=== PATIENT | male | born 1955 | race Caucasian/White ===

== ENCOUNTER → 2017-10-26 07:47 | Outpatient (CLI) | payer OTHER, SELFPAY ==
[2017-10-26 08:54] LABS: AST(SGOT) 27 U/L (15-37); Alanine Aminotransfer ALT/SGPT 51 U/L (16-61); Albumin, Serum 4.1 g/dL (3.2-5.0); Alkaline Phosphatase 71 U/L (45-117); Bilirubin, Direct 0.14 mg/dL (0.00-0.30); Cholesterol 145 mg/dL (200); Globulin 3.2 g/dL (2.2-4.2); High Density Lipoprotein 33 mg/dL; Protein, Total 7.3 g/dL (6.4-8.2); Triglycerides 103 mg/dL; Very Low Density Lipoprotein 21 mg/dL (5-40)
== END ==
PROVIDERS: Family Provider Family Medicine; PCP Family Medicine; Visit Provider Internal Medicine Cardiovascular Disease
DX: E78.5 Hyperlipidemia, unspecified (principal); Z79.899 Other long term (current) drug therapy
CPT/HCPCS: 36415; 80061; 80076

== ENCOUNTER → 2018-01-08 09:23 | Outpatient (CLI) | payer OTHER, SELFPAY ==
[2018-01-08 12:41] LABS: Absolute Lymphocyte Count 1.43 X10^3/ul (0.83-4.51); Absolute Neutrophil Count 3.4 X10^3/uL (2.0-7.7); Basophil# 0.03 X10^3/uL; Basophil% 0.5 % (0-1); Eosinophils% 3.6 % (0-5); Hematocrit 46.8 % (40-54); Hemoglobin 15.9 g/dl (13.0-16.5); Hemoglobin A1c 5.5 % (4.2-6.3); Lymphocyte # 1.43 X10^3/ul (4.0); Lymphocyte % 25.8 % (19-41); Mean Corpuscular Hgb 31.1 pg (27.0-32.0); Mean Corpuscular Volume 91.6 fL (80-94); Mean Platelet Vol. 10.6 fl (6.2-12.0); Monocyte# 0.51 X10^3/uL; Monocyte% 9.2 % (0-10); Neutrophil # 3.37 X10^3/uL (2.7-7.7); Neutrophil % 60.9 % (47-70); Platelet Count 174 K/mm3 (150-450); RBC Distribution Width CV 12.8 % (11.6-14.6); RBC Distribution Width SD 42.8 fl (35.1-43.9); Red Blood Count 5.11 M/mm3 (4.6-6.2); White Blood Count 5.5 K/mm3 (4.4-11.0)
[2018-01-08 12:42] LABS: POSITIVE COUNT NO; POSITIVE DIFFERENTIAL NO; POSITIVE MORPHOLOGY NO
[2018-01-08 12:45] LABS: Anion Gap 6 (5-15); BUN 25 mg/dL (7-18); BUN/Creat Ratio 24.8 RATIO (10-20); Chloride 105 mmol/L (98-107); Creatinine, Serum 1.01 mg/dL (0.70-1.30); EST Glomerular Filtration Rate 80 mL/min (>60); Est Glom Filt Rate - Afr Amer 96 mL/min (>60); Glucose 106 mg/dL (74-106); Potassium 4.3 mmol/L (3.5-5.1); Sodium Level 140 mmol/L (136-145); Thyroid Stim Hormone (TSH) 1.72 uIU/mL (0.358-3.74)
== END ==
PROVIDERS: Family Provider Family Medicine; PCP Family Medicine; Visit Provider Family Medicine
DX: I10 Essential (primary) hypertension (principal); E78.5 Hyperlipidemia, unspecified; R73.01 Impaired fasting glucose
CPT/HCPCS: 36415; 80048; 83036; 84439; 84443; 85025

== ENCOUNTER → 2018-04-24 08:09 | Outpatient (CLI) | payer OTHER, SELFPAY ==
[2018-04-24 09:30] LABS: AST(SGOT) 24 U/L (15-37); Alanine Aminotransfer ALT/SGPT 46 U/L (16-61); Alkaline Phosphatase 65 U/L (45-117); Bilirubin, Direct 0.14 mg/dL (0.00-0.30); Cholesterol 175 mg/dL (200); Globulin 3.4 g/dL (2.2-4.2); High Density Lipoprotein 30 mg/dL; Protein, Total 7.4 g/dL (6.4-8.2); Triglycerides 161 mg/dL; Very Low Density Lipoprotein 32 mg/dL (5-40)
== END ==
PROVIDERS: Internal Medicine Cardiovascular Disease; Family Provider Family Medicine; PCP Family Medicine; Visit Provider Physician Assistant Medical
DX: E78.5 Hyperlipidemia, unspecified (principal); Z79.899 Other long term (current) drug therapy
CPT/HCPCS: 36415; 80061; 80076

== ENCOUNTER → 2018-08-30 07:16 | Outpatient (CLI) | payer OTHER, SELFPAY ==
[2018-08-30 08:56] LABS: AST(SGOT) 28 U/L (15-37); Alanine Aminotransfer ALT/SGPT 56 U/L (16-61); Albumin, Serum 4.1 g/dL (3.2-5.0); Alkaline Phosphatase 61 U/L (45-117); Bilirubin, Direct 0.14 mg/dL (0.00-0.30); Cholesterol 190 mg/dL (200); Globulin 3.4 g/dL (2.2-4.2); High Density Lipoprotein 32 mg/dL; Protein, Total 7.5 g/dL (6.4-8.2); Triglycerides 171 mg/dL; Very Low Density Lipoprotein 34 mg/dL (5-40)
== END ==
PROVIDERS: Family Provider Family Medicine; PCP Family Medicine; Referring Provider Internal Medicine Cardiovascular Disease; Visit Provider Internal Medicine Cardiovascular Disease
DX: E78.5 Hyperlipidemia, unspecified (principal)
CPT/HCPCS: 36415; 80061; 80076

== ENCOUNTER → 2018-10-10 09:37 | Outpatient (CLI) | payer OTHER, SELFPAY ==
[2018-09-29 15:54] VITALS: BMI 32.4
--- NOTE | 2018-10-10 09:41 | ECHOD_ITS ---
Reason For Study: murmur Procedure This was a 2D Doppler, Color Flow transthoracic echocardiogram. The exam was of adequate technical quality. Exam performed in department. Left Ventricle Normal LV size. Mild concentric left ventricular hypertrophy. Left ventricular systolic function is normal. The estimated ejection fraction is 70 %. No evidence for diastolic dysfunction. No regional wall motion abnormalities noted. Right Ventricle Normal RV size. Normal systolic function. Atria The left atrium is mildly enlarged. Normal right atrium. No doppler evidence for ASD. Mitral Valve There is no mitral annular calcification. Mild diffuse mitral valve thickening. Mild (1+) mitral valve insufficiency. Tricuspid Valve Normal tricuspid valve. Mild tricuspid valve insufficiency. Right ventricular systolic pressure estimated to be 28 mmHg. 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 Trivial aortic valve insufficiency. Pulmonic Valve The pulmonic valve is not well visualized. Mild (1+) pulmonic valve insufficiency. Great Vessels Mildly dilated aortic root. Pericardium/Pleural No pericardial effusion. MMode/2D Measurements & Calculations LVIDd: 4.5 cm IVSd: 1.4 cm LVOT diam: 2.3 cm LVIDs: 2.7 cm LVPWd: 1.4 cm LVOT area: 4.3 cm2 RVDd: 3.7 cm FS: 39.7 % Ao root diam: 4.0 cm LAV(MOD-bp): 61.0 ml LA A4 area: 19.7 cm2 LAV(MOD-bp) Indexed: 26.0 ml/m2 LAV(MOD-sp2): 60.1 ml LAV(MOD-sp4): 57.9 ml LA dimension(2D): 4.1 cm RA A4 area: 15.6 cm2 Doppler Measurements & Calculations MV E max alejo: 85.1 cm/sec Lat Peak E' Alejo: 5.1 cm/sec Med Peak E' Alejo: 5.9 cm/sec MV A max alejo: 75.5 cm/sec E/E' lat: 16.8 E/E' med: 14.3 MV E/A: 1.1 Ao V2 max: 271.9 cm/sec AI max alejo: 333.5 cm/sec LV V1 max: 128.4 cm/sec Ao max P.6 mmHg AI max P.5 mmHg LV V1 max P.8 mmHg Ao V2 mean: 190.8 cm/sec AI dec slope: 183.3 cm/sec2 LV V1 mean P.1 mmHg Ao mean P.2 mmHg AI P1/2t: 532.8 msec LV V1 mean: 97.0 cm/sec Ao V2 VTI: 51.2 cm LV V1 VTI: 30.9 cm EMILY(I,D): 2.6 cm2 EMILY(V,D): 2.0 cm2 SV(LVOT): 132.0 ml PA V2 max: 80.1 cm/sec TR max alejo: 249.1 cm/sec TR max P.0 mmHg Interpretation Summary Left ventricular systolic function is normal. The estimated ejection fraction is 70 %. Mild concentric left ventricular hypertrophy. The left atrium is mildly enlarged. Mild diffuse mitral valve thickening. Mild (1+) mitral valve insufficiency. Mild tricuspid valve insufficiency. 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 Trivial aortic valve insufficiency. Mild (1+) pulmonic valve insufficiency. Mildly dilated aortic root. Right ventricular systolic pressure estimated to be 28 mmHg. No evidence for diastolic dysfunction. Ordering Physician: Alen Phillips Referring Physician: Geoff Sainz Performed By: Margarette Olsen, RDCS, RVT
== END ==
PROVIDERS: Family Provider Family Medicine; PCP Family Medicine; Referring Provider Internal Medicine Cardiovascular Disease; Visit Provider Internal Medicine Cardiovascular Disease
DX: E78.00 Pure hypercholesterolemia, unspecified (principal); I77.810 Thoracic aortic ectasia; Q23.1 Congenital insufficiency of aortic valve
CPT/HCPCS: 93306

== ENCOUNTER → 2019-03-27 | Outpatient (CLI) | payer OTHER, SELFPAY ==
[2018-09-29 15:54] VITALS: BMI 32.4
[2019-03-27 09:46] LABS: AST(SGOT) 27 U/L (15-37); Alanine Aminotransfer ALT/SGPT 50 U/L (16-61); Albumin, Serum 4.2 g/dL (3.2-5.0); Alkaline Phosphatase 85 U/L (45-117); Anion Gap 5 (5-15); BUN 20 mg/dL (7-18); Bilirubin, Direct 0.22 mg/dL (0.00-0.30); Calcium,Total 8.7 mg/dL (8.5-10.1); Chloride 107 mmol/L (98-107); Cholesterol 129 mg/dL (200); EST Glomerular Filtration Rate 80 mL/min (>60); Est Glom Filt Rate - Afr Amer 97 mL/min (>60); Globulin 3.3 g/dL (2.2-4.2); Glucose 97 mg/dL (74-106); High Density Lipoprotein 36 mg/dL; Potassium 4.3 mmol/L (3.5-5.1); Protein, Total 7.5 g/dL (6.4-8.2); Sodium Level 141 mmol/L (136-145); Triglycerides 134 mg/dL; Very Low Density Lipoprotein 27 mg/dL (5-40)
== END | disposition home or self-care (01) ==
LOC: LAB 07:57
PROVIDERS: Family Provider Family Medicine; PCP Family Medicine; Referring Provider Internal Medicine Cardiovascular Disease; Visit Provider Internal Medicine Cardiovascular Disease
DX: I10 Essential (primary) hypertension (principal); R73.01 Impaired fasting glucose; E78.00 Pure hypercholesterolemia, unspecified
CPT/HCPCS: 36415; 80048; 80061; 80076

== ENCOUNTER → 2019-09-04 07:27 | Outpatient (CLI) | payer OTHER, SELFPAY ==
[2018-09-29 15:54] VITALS: BMI 32.4
[2019-09-04 09:22] LABS: AST(SGOT) 26 U/L (15-37); Alanine Aminotransfer ALT/SGPT 51 U/L (16-61); Albumin, Serum 4.2 g/dL (3.2-5.0); Alkaline Phosphatase 68 U/L (45-117); Bilirubin, Direct 0.15 mg/dL (0.00-0.30); Cholesterol 136 mg/dL (200); Globulin 3.2 g/dL (2.2-4.2); High Density Lipoprotein 35 mg/dL; Protein, Total 7.4 g/dL (6.4-8.2); Triglycerides 111 mg/dL; Very Low Density Lipoprotein 22 mg/dL (5-40)
== END ==
PROVIDERS: Family Provider Family Medicine; PCP Family Medicine; Referring Provider Internal Medicine Cardiovascular Disease; Visit Provider Internal Medicine Cardiovascular Disease
DX: E78.5 Hyperlipidemia, unspecified (principal)
CPT/HCPCS: 36415; 80061; 80076

== ENCOUNTER → 2020-04-09 07:45 | Outpatient (CLI) | payer OTHER, SELFPAY ==
[2019-10-07 15:54] VITALS: BMI 31.8
[2020-04-09 08:54] LABS: Absolute Neutrophil Count 3.5 X10^3/uL (2.0-7.7); Basophil# 0.06 X10^3/uL; Eosinophil# 0.29 X10^3/uL; Eosinophils% 4.9 % (0-5); Hematocrit 46.6 % (40-54); Hemoglobin 15.4 g/dL (13.0-16.5); Mean Corpuscular Hgb 30.4 pg (27.0-32.0); Mean Corpuscular Volume 92.1 fL (80-94); Mean Platelet Vol. 10.4 fl (6.2-12.0); Monocyte# 0.52 X10^3/uL; Monocyte% 8.8 % (0-10); NRBC Flagged by Analyzer 0 % (0-5); Neutrophil # 3.45 X10^3/uL (2.7-7.7); Neutrophil % 58.1 % (47-70); Platelet Count 164 K/mm3 (150-450); RBC Distribution Width CV 11.9 % (11.6-14.6); RBC Distribution Width SD 40.7 fl (35.1-43.9); Red Blood Count 5.06 M/mm3 (4.6-6.2); White Blood Count 5.9 K/mm3 (4.4-11.0)
[2020-04-09 09:25] LABS: AST(SGOT) 28 U/L (15-37); Alanine Aminotransfer ALT/SGPT 49 U/L (16-61); Alkaline Phosphatase 68 U/L (45-117); Anion Gap 1 (5-15); BUN 25 mg/dL (7-18); BUN/Creat Ratio 24.8 RATIO (10-20); Bilirubin, Direct 0.21 mg/dL (0.00-0.30); Calcium,Total 8.8 mg/dL (8.5-10.1); Chloride 107 mmol/L (98-107); Cholesterol 125 mg/dL (200); Creatinine, Serum 1.01 mg/dL (0.70-1.30); EST Glomerular Filtration Rate 79 mL/min (>60); Est Glom Filt Rate - Afr Amer 96 mL/min (>60); Globulin 3.2 g/dL (2.2-4.2); Glucose 113 mg/dL (74-106); High Density Lipoprotein 30 mg/dL; Potassium 4.5 mmol/L (3.5-5.1); Protein, Total 7.2 g/dL (6.4-8.2); Sodium Level 137 mmol/L (136-145); Triglycerides 130 mg/dL; Very Low Density Lipoprotein 26 mg/dL (5-40)
== END ==
PROVIDERS: Nurse Practitioner Family; PCP Family Medicine; Referring Provider Family Medicine; Visit Provider Family Medicine
DX: I10 Essential (primary) hypertension (principal); E78.00 Pure hypercholesterolemia, unspecified; E78.5 Hyperlipidemia, unspecified
CPT/HCPCS: 80048; 80061; 80076; 85025

== ENCOUNTER → 2020-09-06 08:45 | Outpatient (CLI) | payer OTHER, SELFPAY ==
[2019-10-07 15:54] VITALS: BMI 31.8
--- NOTE | 2020-09-06 08:46 | ECHOD_ITS ---
Reason For Study: Murmur Procedure This was a 2D Doppler, Color Flow transthoracic echocardiogram. The exam was of adequate technical quality. Exam performed in department. Left Ventricle Normal LV size. Moderate to severe concentric left ventricular hypertrophy. Left ventricular systolic function is hyperdynamic. The estimated ejection fraction is 75 %. Diastolic function is indeterminate. No regional wall motion abnormalities noted. Right Ventricle Normal RV size. Normal systolic function. Atria Normal left atrium. Normal right atrium. No doppler evidence for ASD. Mitral Valve There is no mitral annular calcification. Mild diffuse mitral valve thickening. Trivial mitral valve insufficiency. Tricuspid Valve Normal tricuspid valve. Trivial tricuspid valve insufficiency. Right ventricular systolic pressure estimated to be 29 mmHg. 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 Mild to moderate aortic stenosis. Trivial aortic valve insufficiency. Pulmonic Valve The pulmonic valve is not well visualized. Trivial eccentric pulmonic valve insufficiency. Great Vessels Mildly dilated aortic root. Pericardium/Pleural No pericardial effusion. MMode/2D Measurements & Calculations LVIDd: 4.5 cm IVSd: 1.9 cm LVOT diam: 2.3 cm LVIDs: 2.0 cm LVPWd: 1.5 cm LVOT area: 4.1 cm2 RVDd: 4.0 cm FS: 55.3 % Ao root diam: 4.2 cm LAV(MOD-bp): 66.4 ml LA A4 area: 19.3 cm2 LA dimension: 4.7 cm LAV(MOD-bp) Indexed: 28.6 ml/m2 LAV(MOD-sp2): 65.9 ml LAV(MOD-sp4): 62.3 ml RA A4 area: 19.0 cm2 Time Measurements MV dec time: 0.25 sec Doppler Measurements & Calculations MV E max alejo: 72.9 cm/sec Lat Peak E' Alejo: 3.7 cm/sec Med Peak E' Alejo: 5.2 cm/sec MV A max alejo: 76.6 cm/sec E/E' lat: 19.8 E/E' med: 13.9 MV E/A: 0.95 MV V2 max: 99.0 cm/sec MV P1/2t max alejo: 99.7 cm/sec Ao V2 max: 360.1 cm/sec MV max P.9 mmHg MV P1/2t: 68.6 msec Ao max P.9 mmHg MV V2 mean: 48.4 cm/sec MV dec slope: 425.6 cm/sec2 Ao V2 mean: 242.0 cm/sec MV mean P.2 mmHg Ao mean P.7 mmHg MV V2 VTI: 24.9 cm MVA(P1/2t): 3.2 cm2 Ao V2 VTI: 72.7 cm MVA(VTI): 5.0 cm2 EMILY(I,D): 1.7 cm2 EMILY(V,D): 1.7 cm2 AI max alejo: 371.3 cm/sec LV V1 max: 151.8 cm/sec SV(LVOT): 125.2 ml AI max P.2 mmHg LV V1 max P.2 mmHg LV V1 mean P.7 mmHg AI dec slope: 179.9 cm/sec2 LV V1 mean: 97.3 cm/sec AI P1/2t: 604.5 msec LV V1 VTI: 30.7 cm PA V2 max: 75.1 cm/sec TR max alejo: 254.1 cm/sec PI dec slope: 138.7 cm/sec2 TR max P.8 mmHg Interpretation Summary Left ventricular systolic function is hyperdynamic. The estimated ejection fraction is 75 %. Moderate to severe concentric left ventricular hypertrophy. Mild diffuse mitral valve thickening. Trivial mitral valve insufficiency. Trivial tricuspid valve insufficiency. 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 Mild to moderate aortic stenosis. Trivial aortic valve insufficiency. Trivial eccentric pulmonic valve insufficiency. Mildly dilated aortic root. Right ventricular systolic pressure estimated to be 29 mmHg. Diastolic function is indeterminate. Late peaking spectral Doppler pattern in the mid left ventricular cavity approaching 2 m/s (peak gradient of approximately 16 mmHg) appearing compatible with a hyperdynamic state. Ordering Physician: Alen Phillips Referring Physician: Geoff Sainz Performed By: Scott Anglin RCS
== END ==
PROVIDERS: PCP Family Medicine; Referring Provider Internal Medicine Cardiovascular Disease; Visit Provider Internal Medicine Cardiovascular Disease
DX: Q23.1 Congenital insufficiency of aortic valve (principal); I77.810 Thoracic aortic ectasia; E78.00 Pure hypercholesterolemia, unspecified; I10 Essential (primary) hypertension
CPT/HCPCS: 93306

== ENCOUNTER → 2020-10-15 07:27 | Outpatient (CLI) | payer OTHER, SELFPAY ==
[2020-10-03 16:04] VITALS: BMI 32.6
[2020-10-15 08:37] LABS: AST(SGOT) 29 U/L (15-37); Alanine Aminotransfer ALT/SGPT 58 U/L (16-61); Albumin, Serum 4.2 g/dL (3.2-5.0); Alkaline Phosphatase 69 U/L (45-117); Bilirubin, Direct 0.21 mg/dL (0.00-0.30); Cholesterol 134 mg/dL (200); High Density Lipoprotein 34 mg/dL; Protein, Total 7.2 g/dL (6.4-8.2); Triglycerides 94 mg/dL; Very Low Density Lipoprotein 19 mg/dL (5-40)
== END ==
PROVIDERS: PCP Family Medicine; Visit Provider Internal Medicine Cardiovascular Disease
DX: E78.00 Pure hypercholesterolemia, unspecified (principal)
CPT/HCPCS: 36415; 80061; 80076

== ENCOUNTER → 2021-04-22 07:25 | Outpatient (CLI) | payer OTHER, SELFPAY ==
[2020-10-03 16:04] VITALS: BMI 32.6
[2021-04-22 07:57] LABS: Anion Gap 5 (5-15); BUN 18 mg/dL (7-18); BUN/Creat Ratio 17.1 RATIO (10-20); Calcium,Total 8.7 mg/dL (8.5-10.1); Chloride 106 mmol/L (98-107); Creatinine, Serum 1.05 mg/dL (0.70-1.30); EST Glomerular Filtration Rate 75 mL/min (>60); Est Glom Filt Rate - Afr Amer 91 mL/min (>60); Glucose 115 mg/dL (74-106); Potassium 4.2 mmol/L (3.5-5.1); Sodium Level 139 mmol/L (136-145)
[2021-04-22 08:10] LABS: AST(SGOT) 30 U/L (15-37); Alanine Aminotransfer ALT/SGPT 59 U/L (16-61); Albumin, Serum 4.1 g/dL (3.2-5.0); Alkaline Phosphatase 70 U/L (45-117); Bilirubin, Direct 0.28 mg/dL (0.00-0.30); Cholesterol 127 mg/dL (200); High Density Lipoprotein 33 mg/dL; Protein, Total 7.1 g/dL (6.4-8.2); Triglycerides 123 mg/dL; Very Low Density Lipoprotein 25 mg/dL (5-40)
== END ==
PROVIDERS: Internal Medicine Cardiovascular Disease; PCP Family Medicine; Referring Provider Family Medicine; Visit Provider Family Medicine
DX: I10 Essential (primary) hypertension (principal); E78.00 Pure hypercholesterolemia, unspecified
CPT/HCPCS: 36415; 80048; 80061; 80076

== ENCOUNTER 2021-09-20 09:44 | Outpatient (CLI) | payer OTHER, SELFPAY ==
--- NOTE | 2021-09-20 09:49 | ECHOD_ITS ---
Reason For Study: Murmur Procedure This was a 2D Doppler, Color Flow transthoracic echocardiogram. The study was technically difficult. Exam performed in department. Left Ventricle Normal LV size. Moderate to severe concentric left ventricular hypertrophy. Left ventricular systolic function is normal. The estimated ejection fraction is 70 %. Diastolic function is indeterminate. No regional wall motion abnormalities noted. Right Ventricle Normal RV size. Normal systolic function. Atria Normal left atrium. Normal right atrium. No doppler evidence for ASD. Mitral Valve There is no mitral annular calcification. Mild diffuse mitral valve thickening. Mild (1+) mitral valve insufficiency. Tricuspid Valve Normal tricuspid valve. Trivial tricuspid valve insufficiency. Right ventricular systolic pressure estimated to be 25 mmHg. 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 Moderate aortic stenosis. Trivial eccentric aortic valve insufficiency. Pulmonic Valve The pulmonic valve is not well visualized. Great Vessels Mildly dilated aortic root. Pericardium/Pleural No pericardial effusion. MMode/2D Measurements & Calculations LVIDd: 4.5 cm IVSd: 1.5 cm LVOT diam: 2.2 cm LVIDs: 2.6 cm LVPWd: 1.4 cm LVOT area: 3.7 cm2 RVDd: 3.8 cm FS: 42.1 % Ao root diam: 4.2 cm LAV(MOD-bp): 78.2 ml LA A4 area: 20.5 cm2 LAV(MOD-bp) Indexed: 33.5 ml/m2 LAV(MOD-sp2): 71.3 ml LAV(MOD-sp4): 70.5 ml RA A4 area: 19.5 cm2 Time Measurements MV dec time: 0.26 sec Doppler Measurements & Calculations MV E max alejo: 78.3 cm/sec Lat Peak E' Alejo: 3.1 cm/sec Med Peak E' Alejo: 5.7 cm/sec MV A max alejo: 79.8 cm/sec E/E' lat: 25.3 E/E' med: 13.8 MV E/A: 0.98 MV V2 max: 135.2 cm/sec MV P1/2t max alejo: 135.9 cm/sec Ao V2 max: 326.6 cm/sec MV max P.3 mmHg MV P1/2t: 47.2 msec Ao max P.7 mmHg MV V2 mean: 61.1 cm/sec MV dec slope: 842.7 cm/sec2 Ao V2 mean: 221.5 cm/sec MV mean P.9 mmHg Ao mean P.8 mmHg MV V2 VTI: 28.0 cm MVA(P1/2t): 4.7 cm2 Ao V2 VTI: 72.1 cm MVA(VTI): 3.4 cm2 EMILY(I,D): 1.3 cm2 EMILY(V,D): 1.3 cm2 AI max alejo: 372.0 cm/sec LV V1 max: 114.1 cm/sec SV(LVOT): 94.7 ml AI max P.4 mmHg LV V1 max P.2 mmHg LV V1 mean P.5 mmHg AI dec slope: 178.6 cm/sec2 LV V1 mean: 71.7 cm/sec AI P1/2t: 610.0 msec LV V1 VTI: 25.7 cm PA V2 max: 79.9 cm/sec TR max alejo: 234.4 cm/sec TR max P.0 mmHg ECHO/Echo Complete Interpretation Summary The study was technically difficult. Left ventricular systolic function is normal. The estimated ejection fraction is 70 %. Moderate to severe concentric left ventricular hypertrophy. Mild diffuse mitral valve thickening. Mild (1+) mitral valve insufficiency. Trivial tricuspid valve insufficiency. 2D echocardiographic images potentially compatible with a tricuspid aortic valv e with a fused raphae with associated moderate to severe diffuse thickening and moderate to severe fo derek calcification of the leaflets functioning as a bicuspid aortic valve. Moderate aortic stenosis. Trivial eccentric aortic valve insufficiency. Mildly dilated aortic root. Right ventricular systolic pressure estimated to be 25 mmHg. Diastolic function is indeterminate. Ordering Physician: Alen Phillips Referring Physician: Geoff Sainz Performed By: Scott Anglin RCS
== END 2021-09-20 23:59 | disposition short-term general hospital (02) ==
PROVIDERS: PCP Family Medicine; Referring Provider Internal Medicine Cardiovascular Disease; Visit Provider Internal Medicine Cardiovascular Disease
DX: Q23.1 Congenital insufficiency of aortic valve (principal); I77.810 Thoracic aortic ectasia; E78.00 Pure hypercholesterolemia, unspecified; I10 Essential (primary) hypertension
CPT/HCPCS: 93306

== ENCOUNTER → 2022-04-23 | Outpatient (CLI) | payer MEDICARE, SELFPAY ==
[2022-04-23 10:42] LABS: Absolute Lymphocyte Count 1.42 X10^3/uL (0.83-4.51); Absolute Neutrophil Count 4.7 X10^3/uL (2.0-7.7); Basophil# 0.06 X10^3/uL; Basophil% 0.8 % (0-1); Eosinophil# 0.25 X10^3/uL; Eosinophils% 3.5 % (0-5); Hemoglobin 16.5 g/dL (13.0-16.5); Lymphocyte # 1.42 X10^3/ul (0.83-4.51); Lymphocyte % 19.9 % (19-41); Mean Corp Hgb Conc 33.7 g/dL (32-36); Mean Corpuscular Volume 91.9 fL (80-94); Mean Platelet Vol. 10.4 fl (6.2-12.0); Monocyte# 0.65 X10^3/uL; Monocyte% 9.1 % (0-10); NRBC Flagged by Analyzer 0 % (0-5); Neutrophil # 4.72 X10^3/uL (2.7-7.7); Neutrophil % 66.4 % (47-70); Platelet Count 166 K/mm3 (150-450); RBC Distribution Width CV 12.2 % (11.6-14.6); RBC Distribution Width SD 41.4 fl (35.1-43.9); Red Blood Count 5.33 M/mm3 (4.6-6.2); White Blood Count 7.1 K/mm3 (4.4-11.0)
[2022-04-23 11:25] LABS: ALB/GLOB Ratio 1.1 RATIO (0.9-2.4); AST(SGOT) 32 U/L (15-37); Alanine Aminotransfer ALT/SGPT 81 U/L (16-61); Alkaline Phosphatase 68 U/L (45-117); Anion Gap 6 (5-15); BUN 14 mg/dL (7-18); BUN/Creat Ratio 13.7 RATIO (10-20); Bilirubin, Direct 0.18 mg/dL (0.00-0.30); Chloride 103 mmol/L (98-107); Cholesterol 122 mg/dL (200); Creatinine, Serum 1.02 mg/dL (0.70-1.30); EST Glomerular Filtration Rate 78 mL/min (>60); Est Glom Filt Rate - Afr Amer 94 mL/min (>60); Globulin 3.7 g/dL (2.2-4.2); Glucose 108 mg/dL (74-106); High Density Lipoprotein 32 mg/dL; Potassium 4.2 mmol/L (3.5-5.1); Protein, Total 7.7 g/dL (6.4-8.2); Sodium Level 138 mmol/L (136-145); Thyroid Stim Hormone (TSH) 2.88 uIU/mL (0.358-3.74); Triglycerides 130 mg/dL; Very Low Density Lipoprotein 26 mg/dL (5-40)
== END | disposition home or self-care (01) ==
PROVIDERS: Internal Medicine Cardiovascular Disease; PCP Family Medicine; Referring Provider Family Medicine; Visit Provider Family Medicine
DX: I10 Essential (primary) hypertension (principal); E78.5 Hyperlipidemia, unspecified
CPT/HCPCS: 80053; 80061; 82248; 84443; 85025

== ENCOUNTER → 2022-07-17 | Outpatient (CLI) | payer MEDICARE, SELFPAY ==
--- NOTE | 2022-07-17 13:55 | ECHOD_ITS ---
Reason For Study: MURMUR Procedure This was a 2D Doppler, Color Flow transthoracic echocardiogram. Myocardial strain analysis was performed in this exam to aid in the assessment of cardiac function. Exam performed in department. Left Ventricle Normal LV size. Severe concentric left ventricular hypertrophy. Left ventricular systolic function is hyperdynamic. The estimated ejection fraction is 75 %. The global longitudinal strain = -14% (abnormal). Diastolic function is indeterminate. No regional wall motion abnormalities noted. Right Ventricle Normal RV size. Normal systolic function. Atria Normal left atrium. Normal right atrium. No doppler evidence for ASD. Mitral Valve There is no mitral annular calcification. Normal mitral valve. Mild (1+) mitral valve insufficiency. Tricuspid Valve Normal tricuspid valve. Trivial tricuspid valve insufficiency. Right ventricular systolic pressure estimated to be 30 mmHg. Aortic Valve Based upon the 2D echocardiographic images obtained the aortic valve leaflets are not well visualized, however, there appears to be diffuse thickening, severe focal calcification, and restriction. Severe aortic stenosis. Mild (1+) eccentric aortic valve insufficiency. Pulmonic Valve The pulmonic valve is not well visualized. Great Vessels Mildly dilated aortic root. Pericardium/Pleural No pericardial effusion. MMode/2D Measurements & Calculations LVIDd: 4.3 cm IVSd: 2.2 cm LVOT diam: 2.0 cm LVIDs: 2.2 cm LVPWd: 2.0 cm LVOT area: 3.2 cm2 RVDd: 3.6 cm FS: 48.3 % Ao root diam: 4.3 cm LAV(MOD-bp): 56.2 ml LVAd ap4: 37.5 cm2 LAV(MOD-bp) Indexed: 24.2 ml/m2 LVLd ap4: 10.6 cm LAV(MOD-sp2): 64.9 ml EDV(MOD-sp4): 113.7 ml LAV(MOD-sp4): 20.9 ml EDV(sp4-el): 113.0 ml LVAs ap4: 24.1 cm2 LVLs ap4: 9.2 cm ESV(MOD-sp4): 68.3 ml ESV(sp4-el): 53.5 ml EF(MOD-sp4): 39.9 % EF(sp4-el): 52.6 % SV(MOD-sp4): 45.4 ml SV(sp4-el): 59.5 ml LA A4 area: 9.9 cm2 LA dimension(2D): 4.7 cm RA A4 area: 11.1 cm2 Time Measurements MV dec time: 0.24 sec Doppler Measurements & Calculations MV E max alejo: 86.8 cm/sec Lat Peak E' Alejo: 5.2 cm/sec Med Peak E' Alejo: 6.5 cm/sec MV A max alejo: 89.6 cm/sec E/E' lat: 16.7 E/E' med: 13.4 MV E/A: 0.97 MV V2 max: 131.3 cm/sec Ao V2 max: 441.3 cm/sec MV max P.9 mmHg MV dec slope: 366.2 cm/sec2 Ao max P.9 mmHg MV V2 mean: 77.5 cm/sec Ao V2 mean: 319.2 cm/sec MV mean P.7 mmHg Ao mean P.7 mmHg MV V2 VTI: 28.5 cm Ao V2 VTI: 92.4 cm MVA(VTI): 3.6 cm2 EMILY(I,D): 1.1 cm2 EMILY(V,D): 0.97 cm2 AI max alejo: 404.1 cm/sec LV V1 max: 134.6 cm/sec SV(LVOT): 101.5 ml AI max P.6 mmHg LV V1 max P.3 mmHg LV V1 mean P.2 mmHg AI dec slope: 293.9 cm/sec2 LV V1 mean: 97.4 cm/sec AI P1/2t: 402.7 msec LV V1 VTI: 31.8 cm TR max alejo: 257.6 cm/sec TR max P.5 mmHg ECHO/Echo Complete Interpretation Summary Left ventricular systolic function is hyperdynamic. The estimated ejection fraction is 75 %. The global longitudinal strain = -14% (abnormal). Severe concentric left ventricular hypertrophy. Mild (1+) mitral valve insufficiency. Trivial tricuspid valve insufficiency. Based upon the 2D echocardiographic images obtained the aortic valve leaflets a re not well visualized, however, there appears to be diffuse thickening, severe focal calci fication, and restriction. Severe aortic stenosis. Mild (1+) eccentric aortic valve insufficiency. Mildly dilated aortic root. Right ventricular systolic pressure estimated to be 30 mmHg. Diastolic function is indeterminate. Late peaking spectral Doppler pattern approaching 1.5 m/s (9 mmHg). Comment: Global longitudinal strain pattern: Suggestive but not definitive for the diagnosis of amyloidosis. Ordering Physician: Alen Phillips Referring Physician: Alen Phillips Performed By: Nessa Hernandez RCS
== END | disposition home or self-care (01) ==
PROVIDERS: PCP Family Medicine; Referring Provider Internal Medicine Cardiovascular Disease; Visit Provider Internal Medicine Cardiovascular Disease
DX: Q23.1 Congenital insufficiency of aortic valve (principal); I77.810 Thoracic aortic ectasia
CPT/HCPCS: 93306

== ENCOUNTER 2022-07-31 08:42 | Outpatient (CLI) | payer MEDICARE, SELFPAY ==
[2022-07-31] VITALS (10 sets, daily range): BP systolic 106–147; BP diastolic 50–90; PULSE 81–93; RESP 12–24; TEMP 37.2; O2SAT 95–99; BMI 33.0
--- NOTE | 2022-07-31 | BMB_PTH ---
PATIENT: MARTIN ELLSWORTH LOC: CT U#:[id number] AGE/SX: 66/M ROOM: RE07/31/[address]: Dr. Samantha Shah MD : 1955 BED: DIS: 07/31/2022 SPEC #: [id number] RECD: 07/31/22 11:53 STATUS: RUPERTO RECt #: [id number] ENRICO: 07/31/22 00:[address]: Samantha Shah DEPT: BONE MARROW RECD BY: Kerwin Dougherty ENTERED: 07/31/22 11:54 SP TYPE: BMB OTHR DR: Dr. Geoff Sainz MD Tissues: A - Bone marrow, NOS B - Bone marrow, NOS C - Bone marrow, NOS Procedures: Decalcification bone/plaque Bone Marrow Aspiration Special Stain Group II Amyloid Stain (control) Bone Marrow Core Biopsy Iron Stain Bone Marrow HEADER OPERATION: CT-guided bone marrow biopsy and aspiration PRE-OP DIAGNOSIS: Cardiomyopathy TISSUE SUBMITTED: A - Core, B - Clot, C - Smears, and send outs (flow, cytogenetics, MM FISH) BONE MARROW DIAGNOSIS Bone marrow biopsy, clot and aspiration: No evidence of plasm cell dyscrasia or B-cell neoplasm. See comment. AM:gabby 08/06/2022 COMMENT Flow cytometry analysis reveals no definite clonal plasma cell or B-cell population. Flow report is viewable in EMR. Immunohistochemistry ([id number]) supports the above diagnosis. Case has been reviewed in consultation with Dr. Fritz who concurs with the above diagnosis. IDC:SJ BONE MARROW STUDY Slides are reviewed. CBC DATE: 07/31/2022 WBC 8.1; RBC 5.24; HGB 15.9; HCT 47.7; MCV 91.0; RDW 12.3; PLTS 185,000 SEGS 67.6%; LYMPHS 18.9%; MONOS 8.5%; EOS 3.7%; BASOS 0.9% PERIPHERAL SMEAR: Submitted. RBC: Normomorphic WBC: Occasional reactive lymphocytes and monocytes noted. PLTS: Normomorphic BONE MARROW ASPIRATE DIFFERENTIAL: 200 cell count. Blasts % (normal 0-2): 2 Promyelocytes % (normal 1-5): 3 Myelocytes and metamyelocytes % (normal 17-41): 17 Bands and Segs % (normal 15-32): 28 Eos % (normal 1-6): 2 Monocytes % (normal 0-4): 1 Erythroid Precursors % (normal 17-35): 33 Lymphocytes % (normal 7-13): 12 Plasma Cells % (normal 0-2): 2 ASPIRATE FINDINGS: Site: Not specified Spicular Cellular M/E ratio: 1.6 (Normal 1.5 - 4.0) Megakaryocytes: Normomorphic Erythropoiesis: Normoblastic Granulopoiesis: Progressive maturation CORE BIOPSY FINDINGS: Site: Not specified Cellularity %: 50% M/E ratio: Within normal limits Megakaryocytes: Adequate Bony trabeculae: Within normal limits Granulomas: Not identified Lymphoid aggregate(s): Not identified Atypical infiltrate(s): Not identified ASPIRATE CLOT FINDINGS: Site: Not specified Cellularity %: 40-50% M/E ratio: Within normal limits Megakaryocytes: Adequate Granuloma(s): Not identified Lymphoid aggregate(s): Not identified Atypical infiltrate(s): Not identified SPECIAL STAINS (with matched controls): Iron: Stainable iron present Reticulin: Within normal limits PAS: Highlights myeloid elements and megakaryocytes. [place] Red: No congophilic material identified in clot or bone marrow. BONE MARROW GROSS A - Received is a container labeled with the patient's name and designated bone marrow. The specimen consists of an elongated piece of andrade bone measuring 1.5 cm in length and 0.1 cm in diameter. The specimen is totally submitted in one cassette after decalcification. B - Received labeled with the patient's name and designated bone marrow is a specimen that consists of approximately 2 ml of bloody fluid that on filtration yields multiple minute fragments of blood clots measuring in aggregate 2.5 x 2 x 0.1 cm. The specimen is totally submitted in one cassette. C - Also received are 13 unstained and 1 peripheral stained slides. The unstained slides are submitted for appropriate staining. Also received is one green top tube which is sent to our reference lab for flow, cytogenetics, MM FISH. / SJ:gabby 07/31/2022 TC:5 CPT: 53730, 54206, 69677 x2, 92523 x4, 00886 ADDENDUM ADDENDUM ADDENDUM ADDENDUM ADDENDUM ADDENDUM ADDENDUM ADDENDUM ADDENDUM ADDENDUM ADDENDUM ADDENDUM ADDENDUM ADDENDUM ADDENDUM ADDENDUM ADDENDUM ADDENDUM ADDENDUM ADDENDUM 08/17/2022 15:49 ADDENDUM 08/17/2022 15:49 ADDENDUM 08/17/2022 15:49 ADDENDUM 08/17/2022 15:49 ADDENDUM 08/17/2022 15:49 CYTOGENETICS REPORT FROM [employer] INTERPRETATION: A normal male chromosome complement was observed in twenty metaphases analyzed. Karyotype: 46,XY[20] FLUORESCENCE IN-SITU HYBRIDIZATION (FISH) FROM [employer] MYELOMA PROGNOSIS INTERPRETATION: 1. No evidence of IGH-MAF [translocation t(14;16)] gene rearrangement 2. No evidence of RB1 monosomy (13q14 deletion). 3. No evidence of CCND1-IGH [translocation t(11;14)] gene rearrangement, and no evidence for trisomy 11 or gain of 11q. 4. No evidence of p53 (17p13) deletion or amplification. 5. No evidence of FGFR3-IGH [translocation t(4;14)] gene rearrangement. 6. Negative for 1q21/CKS1B gain Please see complete report in e-chart or EMR
--- NOTE | 2022-07-31 | IMM_PTH ---
PATIENT: MARTIN ELLSWORTH LOC: CT U#:[id number] AGE/SX: 66/M ROOM: RE07/31/[address]: Dr. Samantha Shah MD : 1955 BED: DIS: 07/31/2022 SPEC #: [id number] RECD: 08/01/22 12:29 STATUS: RUPERTO REQ #: [id number] ENRICO: 07/31/22 00:[address]: Samantha Shah DEPT: IMMUNOHISTOCHEMISTRY RECD BY: Miranda Perdomo ENTERED: 08/01/22 12:33 SP TYPE: IMMUNO OTHR DR: Dr. Geoff Sainz MD Tissues: A - Bone marrow of iliac crest B - Bone marrow of iliac crest Procedures: BCL-2 (add) BCL-6 (add) CD10 (add) CD138 (add) CD20 (add) CD23 (add) CD3 (add) CD43 (add) CD45 (add) CD5 (add) CD79A (add) KAPPA (add) KI-67 (add) LAMBDA (add) Pankeratin (initial) PHYSICIAN & [address] [address] SPECIMEN INFORMATION: Tissue Source: A ? Bone marrow core, B ? Bone marrow clot Clinical Info: Cardiomyopathy Specimen Number: [id number] A & B CPT code: 13961 x2, 74475 x 28 METHODOLOGY: Deparaffinized sections of prefer/formalin-fixed tissue or PAP/DQ stained slides are incubated with monoclonal/polyclonal antibodies/oligonucleotide probes. Localization is made via biotin free immunoperoxidase method. Appropriate controls are performed and reacted as expected. Results on target cell population are indicated in the following table: RESULTS: ANTIBODY / CLONE RESULT Block A AE1-3 (AE1/AE3/PCK26) negative CD3 (PS1) negative CD5 (SP10) negative CD10 (56C6) negative CD20 (L26) negative CD23 (1B12) negative CD43 (L60) * CD45 (RP2/18) negative CD79a (11E3) negative CD138 (B-A38) negative BCL-2 (bcl-2/100/D5) negative BCL-6 (VQ492V/A8) negative [place] (polyclonal) negative Lambda (polyclonal) negative Ki-67 (30-9) *?moderate Block B AE1-3 (AE1/AE3/PCK26) negative CD3 (PS1) negative CD5 (SP10) negative CD10 (56C6) negative CD20 (L26) negative CD23 (1B12) negative CD43 (L60) * CD45 (RP2/18) negative CD79a (11E3) negative CD138 (B-A38) negative BCL-2 (bcl-2/100/D5) negative BCL-6 (MB927K/A8) negative [place] (polyclonal) negative Lambda (polyclonal) negative Ki-67 (30-9) *?moderate *?Normal bone marrow elements immunoreactive. These tests were developed and their performance characteristics determined by [facility]. They may not have been cleared or approved by the U.S. Food and Drug Administration. The FDA has determined that such clearance or approval is not necessary. The above immunohistochemical/dualISH markers are ordered and reviewed by the Pathologist. INTERPRETATION: A. Bone marrow core: No evidence of lymphoma or plasma cell neoplasm. B. Bone marrow clot: No evidence of lymphoma or plasma cell neoplasm. AM:gabby 08/06/2022
--- NOTE | 2022-07-31 08:57 | CT_ITS ---
PROCEDURE: CT-guided bone marrow biopsy. DATE OF EXAMINATION: 07/31/2022 INDICATION: Male, 66 years old. Patient with history of cardiomyopathy is being evaluated for amyloidosis PHYSICIAN: Femi Reyes DO RADIATION DOSAGE (If Supplied By Facility): Total DLP = ( 679.73 ) mGycm CONSENT: The risks, benefits and alternatives to the procedure were explained to the patient, and the patient agreed to the procedure and signed the consent. SEDATION: 1 mg VERSED, 50 mcg of FENTANYL. Start time: 10:06 AM. . Time: 10:45 AM. STERILE BARRIER TECHNIQUE: The following sterile barrier precautions were used during the procedure: hand hygiene; use of IODINE prep; use of a mask, sterile gloves, and a large sterile sheet. PROCEDURE/TECHNIQUE: (All elements of maximal sterile barrier technique followed.) The risks, benefits, and alternatives to the procedure were explained to patient, and the patient agreed to the procedure and signed a consent form for the procedure. A timeout was performed to confirm the patient''s identity, the type of procedure, to be performed and the site of entry. A grid was placed and initial CT scanning was performed for assessment of approach. A suitable site for entry was selected and the skin was marked with temporary marker. The surface was prepared in usual sterile fashion. Superficial numbing and numbing to the level of the left ischium was achieved with local LIDOCAINE using periodic CT fluoroscopic guidance for needle placement. An 11-gauge bone marrow biopsy needle was then guided to the level of the left ischium bone using periodic CT fluoroscopic guidance. The needle was inserted and approximately 5 to 6 cc total bone marrow aspirate was obtained and given to on-site pathology for further evaluation. A 11-gauge bone marrow core biopsy sample was then obtained and the needle was removed. The core biopsy sample was given to on-site pathology for further evaluation. There were no complications and the patient tolerated the procedure well and was observed in the nursing bay. Patient was discharged home in stable condition. CT/Biopsy/Inj or Needle Placement IMPRESSION: Successful CT-guided bone marrow biopsy. Electronically Signed: Femi Reyes, at 13:58 EST ,
[2022-07-31 09:00] LABS: Absolute Lymphocyte Count 1.53 X10^3/uL (0.83-4.51); Absolute Neutrophil Count 5.5 X10^3/uL (2.0-7.7); Basophil# 0.07 X10^3/uL; Basophil% 0.9 % (0-1); Eosinophils% 3.7 % (0-5); Hematocrit 47.7 % (40-54); Hemoglobin 15.9 g/dL (13.0-16.5); Lymphocyte # 1.53 X10^3/ul (0.83-4.51); Lymphocyte % 18.9 % (19-41); Mean Corp Hgb Conc 33.3 g/dL (32-36); Mean Corpuscular Hgb 30.3 pg (27.0-32.0); Mean Platelet Vol. 10.1 fl (6.2-12.0); Monocyte# 0.69 X10^3/uL; Monocyte% 8.5 % (0-10); NRBC Flagged by Analyzer 0 % (0-5); Neutrophil # 5.46 X10^3/uL (2.7-7.7); Neutrophil % 67.6 % (47-70); Platelet Count 185 K/mm3 (150-450); RBC Distribution Width CV 12.3 % (11.6-14.6); RBC Distribution Width SD 40.6 fl (35.1-43.9); Red Blood Count 5.24 M/mm3 (4.6-6.2); White Blood Count 8.1 K/mm3 (4.4-11.0)
[2022-07-31 09:09] LABS: International Normalized Ratio 1.1; Prothrombin Time (Protime)PT. 13.5 SECONDS (11.7-14.9)
[2022-07-31 09:10] LABS: Partial Thromboplast Time 29.9 Seconds (24.1-36.2)
[2022-07-31] MEDS: 0.9 % NaCl (Sterile) Posiflush 10 mL IV (09:45)
[2022-07-31] MEDS: Midazolam 2 MG/2 ML Syringe IV (10:01)
[2022-07-31] MEDS: fentaNYL 100 MCG/2 ML Ampul IV (10:02)
[2022-07-31] MEDS: Lidocaine 2% (20 ml mdv) 20 ML Vial INFILT (10:29)
== END 2022-07-31 23:59 | disposition home or self-care (01) ==
LOC: CT 08:43
PROVIDERS: PCP Family Medicine; Visit Provider Internal Medicine Hematology & Oncology
DX: Z01.812 Encounter for preprocedural laboratory examination (principal); I42.9 Cardiomyopathy, unspecified; I35.0 Nonrheumatic aortic (valve) stenosis; Z79.899 Other long term (current) drug therapy
CPT/HCPCS: 38221; 36415; 77012; 85025; 85610; 85730; 88305; 88311; 88313; 88341; 88342; 99156; 99157; J7050

== ENCOUNTER → 2022-08-06 | Outpatient (CLI) | payer MEDICARE, SELFPAY ==
--- NOTE | 2022-08-06 | MISC_PTH ---
PATIENT: MARTIN ELLSWORTH LOC: [facility] U#:[id number] AGE/SX: 66/M ROOM: RE08/06/[address]: Dr. Eliseo Solano MD : 1955 BED: DIS: 08/06/2022 SPEC #: [id number] RECD: 08/06/22 11:02 STATUS: RUPERTO MERCED #: [id number] ENRICO: 08/06/22 00:[address]: Eliseo Solano DEPT: SURGICAL PATHOLOGY RECD BY: Kerwin Dougherty ENTERED: 08/06/22 11:03 SP TYPE: MISC OTHR DR: Dr. Geoff Sainz MD Tissues: Abdominal wall, NOS Procedures: Special Stain Group II Surgery Specimen Level IV Amyloid Stain (control) HEADER OPERATION: Excisional fat pad biopsy PRE-OP DIAGNOSIS: Cardiomyopathy TISSUE SUBMITTED: Right mid abdominal tissue MICROSCOPIC DIAGNOSIS Skin and soft tissue of right abdomen, biopsy: No pathologic change. See comment. AM:gabby 08/07/2022 GROSS DIAGNOSIS Congo Red with matched stain does not reveal congophilic material suggestive of amyloid. Clinical correlation is suggested. MICROSCOPIC DESCRIPTION Slides are reviewed. GROSS DESCRIPTION Received in fixative is one container labeled with the patient's name and designated right mid abdomen. The specimen consists of two pieces of light andrade soft tissue measuring 1 x 1 x 0.5 cm and 0.7 x 0.5 x 0.1 cm. The larger piece is bisected. The entire specimen is submitted in one cassette. / SJ:gabby 08/06/2022 TC: 5 CPT: 16663, 44039
== END | disposition home or self-care (01) ==
LOC: LABSPEC 10:42
PROVIDERS: PCP Family Medicine; Referring Provider Surgery; Visit Provider Surgery
DX: I42.9 Cardiomyopathy, unspecified (principal)
CPT/HCPCS: 88305; 88313

== ENCOUNTER → 2023-05-09 | Outpatient (CLI) | payer MEDICARE, SELFPAY ==
--- NOTE | 2023-05-09 09:07 | NM_ITS ---
CLINICAL: 67-year-old male with suspected diagnosis of cardiac amyloidosis. 99m Tc PYROPHOSPHATE CARDIAC AMYLOID EXAMINATION COMPARISON: None available FINDINGS: Following the intravenous administration of 21.9 mCi of 99m Tc pyrophosphate, anterior acquisitions of the thorax reveal: 1. Planar projections demonstrate mild increased pharmaceutical concentration within the context of the left ventricular myocardium for a Perugini score of 1. The heart to contralateral ratio was calculated to be 1.17 (normal < 1.5:1). [facility] Images Cardiac Amyloid IMPRESSION: 1. NEGATIVE EXAMINATION. There is no scintigraphic evidence of ATTR cardiac amyloidosis on the current evaluation. (Velvet et al, Diagnostics 11: 996, 2020). Electronically Signed: Deepak Curry DO at 22:35 EDT ,
== END | disposition home or self-care (01) ==
LOC: NM 09:05
PROVIDERS: PCP Nurse Practitioner Family; Referring Provider Physician Assistant Medical; Visit Provider Physician Assistant Medical
DX: E85.4 Organ-limited amyloidosis (principal)
CPT/HCPCS: 78800; A9538

== ENCOUNTER 2023-05-21 09:34 | Outpatient (CLI) | payer MEDICARE, SELFPAY ==
[2023-05-21 10:08] LABS: Absolute Lymphocyte Count 1.67 X10^3/uL (0.83-4.51); Absolute Neutrophil Count 3.5 X10^3/uL (2.0-7.7); Basophil# 0.08 X10^3/uL; Basophil% 1.3 % (0-1); Eosinophil# 0.34 X10^3/uL; Eosinophils% 5.4 % (0-5); Hematocrit 46.1 % (40-54); Hemoglobin 15.7 g/dL (13.0-16.5); Lymphocyte # 1.67 X10^3/ul (0.83-4.51); Lymphocyte % 26.8 % (19-41); Mean Corp Hgb Conc 34.1 g/dL (32-36); Mean Corpuscular Hgb 31.7 pg (27.0-32.0); Mean Corpuscular Volume 92.9 fL (80-94); Mean Platelet Vol. 10.4 fl (6.2-12.0); Monocyte# 0.62 X10^3/uL; Monocyte% 9.9 % (0-10); NRBC Flagged by Analyzer 0 % (0-5); Neutrophil # 3.51 X10^3/uL (2.7-7.7); Neutrophil % 56.3 % (47-70); Platelet Count 158 K/mm3 (150-450); RBC Distribution Width CV 12.3 % (11.6-14.6); Red Blood Count 4.96 M/mm3 (4.6-6.2); White Blood Count 6.2 K/mm3 (4.4-11.0)
[2023-05-21 10:32] LABS: International Normalized Ratio 1.1; Partial Thromboplast Time 32.2 Seconds (24.1-36.2); Prothrombin Time (Protime)PT. 14.1 SECONDS (11.7-14.9)
[2023-05-21 10:43] LABS: Anion Gap 0 (5-15); BUN 17 mg/dL (7-18); BUN/Creat Ratio 16.5 RATIO (10-20); Chloride 106 mmol/L (98-107); Creatinine, Serum 1.03 mg/dL (0.70-1.30); EST Glomerular Filtration Rate 76 mL/min (>60); Est Glom Filt Rate - Afr Amer 93 mL/min (>60); Glucose 153 mg/dL (74-106); Potassium 4.6 mmol/L (3.5-5.1); Sodium Level 138 mmol/L (136-145)
== END 2023-05-21 23:59 | disposition home or self-care (01) ==
LOC: LAB 09:35
PROVIDERS: PCP Nurse Practitioner Family; Referring Provider Physician Assistant Medical; Visit Provider Physician Assistant Medical
DX: I42.9 Cardiomyopathy, unspecified (principal); E85.4 Organ-limited amyloidosis; Q23.1 Congenital insufficiency of aortic valve
CPT/HCPCS: 36415; 80048; 85025; 85610; 85730

== ENCOUNTER 2023-06-10 07:26 | Day surgery (SDC) | payer MEDICARE, SELFPAY ==
--- NOTE | 2023-05-30 14:06 | PCM.HP.BLA ---
History and Physical Date of Admission: 06/10/23 Bennie Henson is a 67 year-old white male who presents today for a heart catheterization. He has a history of underlying bicuspid aortic valve with aortic valve stenosis and aortic root dilatation superimposed upon hyperlipidemia and hypertension. His last echocardiogram that was done in 07/2022 demonstrated an LVEF of 75%; severe concentric LVH; aortic valve with findings compatible with severe aortic valve stenosis and a mildly dilated aortic root; additional findings suggestive but not definitive for a possible diagnosis of amyloid.?He was evaluated by hematology for amyloid, all these tests were negative. Cardiac MRI was concerning for cardiac amyloid. PYP was ordered, he has not had this done yet. Pt notes that he is SOB at times, it is not brought on by anything in particular. 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 He does not have any chest pain/heaviness. He does not have any irregular heart beats. He does not have any lightheadheaded/dizziness. 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 Pure hypercholesterolemia Undiagnosed cardiac murmurs Surgical History History of bursectomy History of cataract surgery History of shoulder surgery History of surgical biopsy (~07/2022) History of tonsillectomy and adenoidectomy Family History Father CVA (cerebral vascular accident) Hypertension Skin cancerMother Hypertension Breast cancer Skin cancerBrother HypertensionSister HypertensionOther Family history of CVA Family history of hypertension Social History household members: spouse current occupational status: retired 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, 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 current occupational exposures/hazards: Yes (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) Smoking Status: Never smoker Smokeless tobacco user: chewing tobacco second hand exposure: Yes alcohol intake: never substance use type: does not use caffeine: Yes Type: coffee Number of servings: 1 and tea Number of servings: 2 ROS Const Const: Negative for fatigue, weakness, headache(s), frequent falls, excessive sweating, weight gain or weight loss Eyes Eyes: Negative for blind spots, loss of peripheral vision, transient loss of vision, blurry vision, change in vision or double vision ENT ENT: Negative for headache(s), dizziness, tinnitus, Nosebleed/epistaxis or balance problems Cardio Chest Pain: No Palpitations: No Edema: None Muscle aches with walking: None Resp Respiratory: Positive for SOB with activity; Negative for SOB at rest, SOB orthopnea\SOB lying down or Cough GI GI: Negative nausea, vomiting, heartburn, bloating, vomiting blood/hematemesis, bright, red blood in stools or black,tarry stools : Negative for hematuria Musc Musc: Negative for muscle aches/ myalgia, muscle weakness, joint pain or balance problems Skin Skin: Negative rash or wounds Neuro Neuro: Negative for dizziness, lightheadedness, near syncope, syncope, orthostatic symptoms, frequent falls, headache(s), weakness, confusion, memory loss, restless legs, blurry vision or double vision Bishop Hematologic/Lymphatic: Negative for easy bleeding or easy bruising Endo Endo: Negative for fatigue, cold intolerance, heat intolerance or excessive sweating Psych Psych: Negative for anxiety or depression Allergy Allergy/Immunology: Negative for rash Cardiology Exam Const Appearance: cooperative, healthy appearing, comfortable, no acute distress, well developed and well groomed Nutritional Appearance: overweight Orientation: alert, awake and oriented x3 Head Head: normal to inspection, normocephalic and atraumatic Ears: hearing grossly normal bilaterally Nose: external nose normal Face and Sinus: face symmetric Eyes Eyelids: eyelids normal Conjunctivae: conjunctivae normal Pupils: PERRL EOM: EOM intact bilaterally Neck Neck: normal visual inspection and full ROM Chest Chest inspection: normal inspection of the chest, symmetric chest movement and normal respiratory effort Auscultation: Bilateral: Clear to Auscultation Cardio Palpation: normal PMI Rate: regular rate Rhythm: regular rhythm Heart sounds: S1 normal and diminished A2 Murmur: Grade 3/6, harsh, late systolic, LLSB, LVOT, sternal notch and radiates to carotids GI GI: normal to inspection, soft and bowel sounds present Neuro General: patient alert, patient awake, patient oriented x3 and moves all extremities Skin Skin: no rashes or lesions noted Extremities Pulses: Normal: Right Radial Pulse and Left Radial Pulse Lower Extremity Edema: None: Bilateral Psych Psychological: normal affect Supplemental Info Supplemental Information Transthoracic Echocardiogram: 07-17-2022 Interpretation Summary Left ventricular systolic function is hyperdynamic. The estimated ejection fraction is 75 %. The global longitudinal strain = -14% (abnormal). Severe concentric left ventricular hypertrophy. Mild (1+) mitral valve insufficiency. Trivial tricuspid valve insufficiency. Based upon the 2D echocardiographic images obtained the aortic valve leaflets are not well visualized, however, there appears to be diffuse thickening, severe focal calcification, and restriction. Severe aortic stenosis. Mild (1+) eccentric aortic valve insufficiency. Mildly dilated aortic root. Right ventricular systolic pressure estimated to be 30 mmHg. Diastolic function is indeterminate. Late peaking spectral Doppler pattern approaching 1.5 m/s (9 mmHg). Comment: Global longitudinal strain pattern: Suggestive but not definitive for the diagnosis of amyloidosis. Echocardiogram: 09/06/2020 Interpretation Summary Left ventricular systolic function is hyperdynamic. The estimated ejection fraction is 75 %. Moderate to severe concentric left ventricular hypertrophy. Mild diffuse mitral valve thickening. Trivial mitral valve insufficiency. Trivial tricuspid valve insufficiency. 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 Mild to moderate aortic stenosis. Trivial aortic valve insufficiency. Trivial eccentric pulmonic valve insufficiency. Mildly dilated aortic root. Right ventricular systolic pressure estimated to be 29 mmHg. Diastolic function is indeterminate. Late peaking spectral Doppler pattern in the mid left ventricular cavity approaching 2 m/s (peak gradient of approximately 16 mmHg) appearing compatible with a hyperdynamic state. Cardiac catheterization on 07/26/2014 Final impression: 1. Relatively normal resting left ventricular end-diastolic pressure 2. Left ventricle: A. Normal left ventricular size, wall motion, and systolic function B. Estimated LVEF of 65% 3. Left main coronary artery: A. Large short vessel B, Angiographically normal 4, Left anterior descending coronary artery: A. Minimal luminal irregularities 5. Left circumflex coronary artery: A. Large dominant vessel B. Angiographically normal 6. Right coronary artery: A. Small nondominant vessel B. Angiographically normal 7. Aortic valve: A. Calcified B. Left ventricular pullback procedure not suggestive of hemodynamically significant aortic valve restriction 8. Aortic root: A. Dilated Assessment and Plan Assessment and Plan (1) Cardiomyopathy: Status: Chronic Plan: Based on his most recent echo there is concern for amyloidosis. He was evaluated by hematology, these tests were negative. Cardiac MRI Had demonstrated concerns over amyloid. PYP scan was ordered prior to him coming into the office however this appears not to have been scheduled. We will reorder this. Based upon findings we will decide next plan of care. (2) Bicuspid aortic valve: Status: Chronic Plan: At the present time there are concerns that his bicuspid aortic valve has progressed and has now developed severe aortic valve stenosis. Patient does have some symptoms that could be concerning for worsening aortic stenosis. His cardiac MRI did demonstrate concerns for cardiac amyloid. We will obtain a PYP scan. Based upon these findings we will then decide if we should pursue a diagnostic heart catheterization to further evaluate his valve to see if he should have an aortic valve replacement versus a TAVR. (3) Aortic root dilatation: Status: Chronic Plan: His aortic root appeared to be mildly dilated. This may be compatible with his bicuspid aortic valve and aortic valve stenosis. He will continue to be followed noninvasively at this time. (4) Pure hypercholesterolemia: Status: Chronic Plan: 04/23/22 09:59 Cholesterol 122 LDL Cholesterol 64 HDL Cholesterol 32 L He will continue therapy and follow-up. (5) Essential hypertension: Status: Chronic Plan: His blood pressure appears to be stable at this time. He will continue his medical management and follow-up.
--- NOTE | 2023-05-31 10:20 | RAD_ITS ---
INDICATION: Aortic stenosis, Heart cath 06/10/2023 EXAMINATION/TECHNIQUE: X-RAY - XR Chest 2 Views COMPARISON: Prior study dated: July 23, 2014 FINDINGS: LINES/DEVICES: None. LUNGS: No consolidation, edema or effusion. No pneumothorax. MEDIASTINUM AND CARDIOVASCULAR STRUCTURES: Cardiac silhouette not enlarged. Central airways and mediastinal contour are unremarkable. BONES AND SOFT TISSUES: Stable for many of the right clavicle consistent with a healed fracture. There are degenerative changes of the thoracic spine. There are stable anterior deformity of lower thoracic vertebra. RAD/Chest PA and Lateral IMPRESSION: No radiographic evidence of acute cardiopulmonary disease. Electronically Signed: Brooke Jo MD at 15:33 EDT ,
[2023-06-07 08:33] VITALS: BMI 31.8
--- NOTE | 2023-06-10 09:39 | CL.D_ITS ---
Patient Name: MARTIN ELLSWORTH Study Date: 06/10/2023 Performing: Nitesh Jimenez MD Ht: 73 inches 185.42 cm : 1955 Wt: 241.01 lbs 109.32 kg Age: 67 Gender: male BSA: 2.33 PROCEDURE(S) PERFORMED DC02-(20632)LHC/COR DC11-(20803)AO ROOT ANGIO WITH HEART CATH CLINICAL PROFILE AND INDICATIONS Indications: Suspected CAD Heart Failure: None Stress/Imaging Stress/Image Study Performed: No CAD Presentations: Symptom unlikely to be ischemic. CONCLUSIONS Normal coronary arteries Normal LV size, wall motion,and systolic function Aortic Root dilated Aortic Valve Stenosis- Severe Cardiomyopathy: Hypertrophic RECOMMENDATIONS Surgery consult for Valve Replacement surgery Consider Myomectomy DESCRIPTION OF PROCEDURE The patient arrived to the procedure lab. The risks and benefits of the procedure as well as a full description of our services here and current unavailability of surgical backup were fully explained to the patient and/or their significant other prior to the catheterization. The Timeout was completed, verifying the correct patient and procedure. The patient's procedural site was prepped and draped in the usual fashion. Local anesthetic was given subcutaneously to right radial region with Lidocaine 2%. Using a modified Seldinger technique, arterial access was obtained via the right radial artery, a 6Fr sheath was inserted. Left Coronary Artery selective angiography was performed in multiple views using a 5 Fr. 4.0 Foster catheter. Right Coronary Artery selective angiography was then performed in multiple views using a 5 Fr. 4.0 Foster catheter. Right Coronary Artery selective angiography was then performed in multiple views using a 5 Fr. JR 5 catheter. Ascending (root) aorta selective angiography was then performed in single view. Ascending (root) aorta selective angiography was then performed in single view.The arterial sheath was pulled and a TR Band was applied for hemostasis w/ 10ml air CORONARY ANGIOGRAPHY DOMINANCE: Left Dominant LEFT HEART ASSESSMENT Left Ventricular Ejection Fraction: by Echo 65 % Normal LV wall motion Normal Left Ventricular systolic function Severe Eccentric LVH LEFT MAIN: Angiographically normal LEFT ANTERIOR DESCENDING ARTERY: No significant disease noted CIRCUMFLEX ARTERY: Mild luminal irregularities RIGHT CORONARY ARTERY: No significant disease noted VALVE FINDINGS: Aortic Valve Stenosis - severe AORTIC ROOT: Calcified Dilated COMPLICATIONS No Complications PROCEDURE MEDICATIONS Versed 1 mg IV Fentanyl 50 mcg IV Oxygen: 2 L/min via nasal cannula Heparin given IA 06/10/2023 09:11:21 Verapamil 2.5mg, 2000 units of Heparin given IA 06/10/2023 09:11:21 SUMMARY OF HEMODYNAMIC DATA Time AIR REST ECG 07:55:47 Art 110/55 (78) 08:57:24 AO 110/61 (83) SA 09:12:45 09:38:42 Signed By Nitesh Jimenez MD On 06/10/2023 09:39:01 Nitesh Jimenez MD
== END 2023-06-10 11:00 | disposition home or self-care (01) ==
LOC: CLSP 07:35
PROVIDERS: PCP Nurse Practitioner Family; Referring Provider Internal Medicine Cardiovascular Disease; Visit Provider Internal Medicine Cardiovascular Disease
DX: I25.10 Atherosclerotic heart disease of native coronary artery without angina pectoris (principal); I42.2 Other hypertrophic cardiomyopathy; I77.819 Aortic ectasia, unspecified site; I35.0 Nonrheumatic aortic (valve) stenosis; I10 Essential (primary) hypertension; E78.00 Pure hypercholesterolemia, unspecified; F17.220 Nicotine dependence, chewing tobacco, uncomplicated; Z79.82 Long term (current) use of aspirin; Z79.899 Other long term (current) drug therapy
CPT/HCPCS: 71046; 93005; 93454; 93567; 99152; 99153; J7040; Q9967; C1769; C1894

== ENCOUNTER → 2024-04-29 | Outpatient (CLI) | payer MEDICARE, SELFPAY ==
[2024-04-29 08:11] LABS: Absolute Lymphocyte Count 1.78 X10^3/uL (0.83-4.51); Absolute Neutrophil Count 3.8 X10^3/uL (2.0-7.7); Basophil# 0.07 X10^3/uL; Eosinophil# 0.32 X10^3/uL; Eosinophils% 4.8 % (0-5); Hematocrit 49.7 % (40-54); Hemoglobin 16.4 g/dL (13.0-16.5); Lymphocyte # 1.78 X10^3/ul (0.83-4.51); Lymphocyte % 26.6 % (19-41); Mean Corpuscular Hgb 30.1 pg (27.0-32.0); Mean Corpuscular Volume 91.2 fL (80-94); Mean Platelet Vol. 10.4 fl (6.2-12.0); Monocyte# 0.66 X10^3/uL; Monocyte% 9.9 % (0-10); NRBC Flagged by Analyzer 0 % (0-5); Neutrophil # 3.83 X10^3/uL (2.7-7.7); Neutrophil % 57.4 % (47-70); Platelet Count 142 K/mm3 (150-450); RBC Distribution Width CV 12.6 % (11.6-14.6); RBC Distribution Width SD 42.1 fl (35.1-43.9); Red Blood Count 5.45 M/mm3 (4.6-6.2); White Blood Count 6.7 K/mm3 (4.4-11.0)
[2024-04-29 08:42] LABS: Vitamin D,25 Hydroxy 62.1 ng/mL
[2024-04-29 08:45] LABS: ALB/GLOB Ratio 1.2 RATIO (0.9-2.4); AST(SGOT) 26 U/L (15-37); Alanine Aminotransfer ALT/SGPT 53 U/L (16-61); Albumin, Serum 3.9 g/dL (3.2-5.0); Alkaline Phosphatase 87 U/L (45-117); Anion Gap 3 (5-15); BUN 19 mg/dL (7-18); BUN/Creat Ratio 16.7 RATIO (10-20); Calcium,Total 9.3 mg/dL (8.5-10.1); Chloride 106 mmol/L (98-107); Cholesterol 125 mg/dL (200); Creatinine, Serum 1.14 mg/dL (0.70-1.30); EST Glomerular Filtration Rate 68 mL/min (>60); Est Glom Filt Rate - Afr Amer 82 mL/min (>60); Globulin 3.3 g/dL (2.2-4.2); Glucose 116 mg/dL (74-106); High Density Lipoprotein 31 mg/dL; PSA,Total - Annual Screen 1.53 ng/mL (0.00-4.00); Potassium 5.1 mmol/L (3.5-5.1); Protein, Total 7.2 g/dL (6.4-8.2); Sodium Level 138 mmol/L (136-145); Triglycerides 142 mg/dL; Very Low Density Lipoprotein 28 mg/dL (5-40)
== END | disposition home or self-care (01) ==
LOC: LAB 07:37
PROVIDERS: PCP Nurse Practitioner Family; Referring Provider Nurse Practitioner Family; Visit Provider Nurse Practitioner Family
DX: I10 Essential (primary) hypertension (principal); E78.5 Hyperlipidemia, unspecified; E55.9 Vitamin D deficiency, unspecified; Z12.5 Encounter for screening for malignant neoplasm of prostate
CPT/HCPCS: 36415; 80053; 80061; 82306; 84153; 85025; G0103

== ENCOUNTER → 2024-09-07 | Outpatient (CLI) | payer MEDICARE, SELFPAY ==
--- NOTE | 2024-09-07 17:09 | RAD_ITS ---
STUDY: X-RAY - RIGHT SHOULDER REASON FOR EXAM: Male, 68 years old. PAIN IN SHOULDER, HISTOERY OF FALLING TECHNIQUE: 4 view(s) of the shoulder. COMPARISON: 05/12/2006 FINDINGS: There is mild degenerative arthrosis of the glenohumeral articulation. There is degenerative arthrosis of the acromioclavicular joint without inferior osseous spur formation. Normal acromion. Healed fracture of the midshaft left clavicle. Interval placement of surgical anchors in the humeral head consistent with rotator cuff repair. The soft tissue structures are unremarkable. Normal visualized pulmonary apex. RAD/Shoulder min 2 Views IMPRESSION: Interval rotator cuff repair. Mild glenohumeral and acromioclavicular joint arthrosis. Electronically Signed: Deepak Velarde MD at 13:48 EST ,
== END | disposition home or self-care (01) ==
LOC: RAD 16:29
PROVIDERS: PCP Nurse Practitioner Family; Referring Provider Nurse Practitioner Family; Visit Provider Nurse Practitioner Family
DX: M25.511 Pain in right shoulder (principal); Z91.81 History of falling
CPT/HCPCS: 73030

== ENCOUNTER 2024-12-10 08:30 | Outpatient (RCR) | payer MEDICARE, SELFPAY ==
--- NOTE | 2024-09-16 14:00 | HP.PTEVAL ---
Patient's Visit Information Visit Information Visit Information: MARTIN ELLSWORTH is a 68 year old M referred to Physical Therapy by ALEXANDRA Mathew with a diagnosis of PAIN IN RIGHT SHOULDER. Date of Evaluation: 09/16/24 Physical Therapist: Zane Alvarado, PT, Cert MDT, OCS Visit Plan Frequency: 2x /Week Duration: 4 Weeks Plan: PATIENT APPEARS TO HAVE RTC TEAR PT INTERVENTION'S GRADED RTC STRENGTHENING ,ISOMETRICS ,POSTURAL EX'S ,SCAPULAR STRENGTHENING ,ACCESSORY STRENGTHENING SHOULDER AND MODALITIES NEEDED Subjective Subjective: This 68 y/o male presents to physical therapy with right shoulder pain. Patient fell outside landed on right shoulder immediate pain. Seen Dr x-rays - for fracture. Referred to PT and prednisone pack. Patient had edema/ecchymosis right shoulder chest and shoulder. Patient has h/o RTC repair 2006. Patient pain located raising arm global. Aggravating factors reaching OH ,lifting affects ADLS and housework task . Alleviating factors rest. Patient denies paresthesia/tingling-. Patient pain affects function and housework tasks. Patient sleeps good. Patient goals to improve function and strength right arm and avoid surgery. 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 Pain Right: Pain Intensity (Out of 10): 8 Pain Intensity Range: 10 Comment: OH Objective Objective: POSTURE: mild forward posture NEURO: denies paresthesia/tingling OBSERVATION: ecchymosis right chest region AROM: shoulder flexion 140 degrees with substitution ,140 abduction with substitution ,ER 80 degrees ,IR L1 PALAPTION: unremarkable MMT: ( peak force) infraspinatus 4.2 ,supraspinatus 4.9 ,deltoid 0 CAPSULAR RESTRICTION: mild tight Special Tests R Shoulder External Rotation Lag Test - RC Tear: Positive R Shoulder Drop Sign - IS Test: Negative R Shoulder Empty Can - SS: Positive R Shoulder Belly Press - SupScap: Negative R Shoulder Neer - Impingement: Positive R Shoulder Goldstein Chao - Impingement: Positive R Shoulder Shrug Sign - OA/Adhesive Capsulitis: Negative Balance/Special Test Scores Quick DASH Score: 45.4525 Goals Goal 1:: Patient to be I with shoulder ex's Goal Time Frame: 4-6 Weeks Goal 2:: Patient to improve peak force RTC /deptoid by 5-10# strength to improve function and OH activities Goal Time Frame: 4-6 Weeks Goal 3:: Patient to improve AROM to reach in cupboard to improve ADLS Goal Time Frame: 4-6 Weeks Goal 4:: Patient to improve quick dash by 5 points to improve QOL and function Goal Time Frame: 4-6 Weeks Goal 5:: Patient to demonstrate 40-50% improvement with less pain with OH activities with right UIE Rehabilitation Potential Physical Therapy Diagnosis: Patient has possible RTC tear with weakness and + test for tear with decrease ROM impairs ADLS and OH activities along with h/o RTC repair 2007 thus benefit from skilled PT Rehabilitation Potential: Good Anticipated Interventions Patient/Client Instruction: Educate patient on: Condition and Plan of Care For the Purpose of:: To decrease pain, To increase ROM, To improve muscle performance and motor function, To improve ability to perform ADL's, To increase tolerance to activity/condition/position, To improve ability of physical actions for home/community/work/leisure, To improve health of tissue, To decrease soft tissue restriction, To increase flexibility/ROM and To improve tolerance to ADL's Therapeutic Exercise to Include: Strength training, Postural training, Active ROM and Scapular Strength/Stabilization Comment: RTC For the Purpose of:: To decrease pain, To increase ROM, To improve muscle performance and motor function, To improve ability to perform ADL's, To improve ability of physical actions for home/community/work/leisure, To improve health of tissue, To decrease soft tissue restriction, To increase flexibility/ROM and To improve tolerance to ADL's TENS: Yes IF ES: Yes Cryotherapy (ice pack, ice massage): Yes Thermo therapy (hot pack): Yes Ultrasound (thermal/non thermal): Yes For the Purpose of:: To decrease pain, To increase ROM, To improve health of tissue and To decrease soft tissue restriction Text: Thank you for the opportunity to evaluate your patient. For Medicare and Medicare HMO plans, please review the plan of care and approve it. It will need to be FAXED BACK to us at [phone] for Medicare purposes. For Medicare only, by signing this I certify the plan of care. Please let me know if there are questions or concerns regarding this plan of care. Physician Signature: Date:
--- NOTE | 2024-10-15 09:47 | HP.PTREVAL ---
Re-Evaluation Intro: Alida Parker NP-Bang, It has been my pleasure to treat MARTIN ELLSWORTH over the last 9 visits for PAIN IN RIGHT SHOULDER. Please see the progress note below for an update on the physical therapy plan of care! Subjective Subjective: Doing better Objective Objective/Function: * Patient will benefit from skilled PT to increase strength of RTC and deltoid ,patient has made progress with increase ROM thus goals are appropriate and adjusted * POSTURE: mild forward posture NEURO: denies paresthesia/tingling OBSERVATION: intact AROM: shoulder flexion 170 degrees with substitution ,160 abduction with substitution ,ER 80 degrees ,IR L1 PALAPTION: unremarkable MMT: ( peak force) infraspinatus 4.7 ,supraspinatus 9,8,deltoid 4.9 CAPSULAR RESTRICTION: mild tight Plan Plan Plan: PATIENT APPEARS TO HAVE RTC TEAR PT INTERVENTION'S GRADED RTC STRENGTHENING ,ISOMETRICS ,POSTURAL EX'S ,SCAPULAR STRENGTHENING ,ACCESSORY STRENGTHENING SHOULDER AND MODALITIES NEEDED Balance/Gait/Functional tests Balance/Special Test Scores Quick DASH Score: 35.0000 Goals Goals Goal 1:: Patient to be I with shoulder ex's Goal Time Frame: 4-6 Weeks Goal 2:: Patient to improve peak force RTC /deptoid by 5-10# strength to improve function and OH activities Goal Time Frame: 4-6 Weeks Goal Progress: Progressing Goal 3:: Patient to improve AROM to reach in cupboard to improve ADLS Goal Time Frame: 4-6 Weeks Goal Progress: Goal Met Goal 4:: Patient to improve quick dash by 5 points to improve QOL and function Goal Time Frame: 4-6 Weeks Goal Progress: Progressing Goal 5:: Patient to demonstrate 40-50% improvement with less pain with OH activities with right UIE Goal Progress: Progressing Anticipated Interventions Anticipated Interventions Patient/Client Instruction: Educate patient on: Condition and Plan of Care For the Purpose of:: To decrease pain, To increase ROM, To improve muscle performance and motor function, To improve ability to perform ADL's, To increase tolerance to activity/condition/position, To improve ability of physical actions for home/community/work/leisure, To improve health of tissue, To decrease soft tissue restriction, To increase flexibility/ROM and To improve tolerance to ADL's Therapeutic Exercise to Include: Strength training, Postural training, Active ROM and Scapular Strength/Stabilization Comment: RTC For the Purpose of:: To decrease pain, To increase ROM, To improve muscle performance and motor function, To improve ability to perform ADL's, To improve ability of physical actions for home/community/work/leisure, To improve health of tissue, To decrease soft tissue restriction, To increase flexibility/ROM and To improve tolerance to ADL's TENS: Yes IF ES: Yes Cryotherapy (ice pack, ice massage): Yes Thermo therapy (hot pack): Yes Ultrasound (thermal/non thermal): Yes For the Purpose of:: To decrease pain, To increase ROM, To improve health of tissue and To decrease soft tissue restriction Re-Evaluation Ending Re-evaluation ending: Please do not hesitate to contact me at [phone] by phone or if you have questions or concerns regarding this new plan of care! Sincerely, Zane Alvarado, PT, Cert MDT, OCS
--- NOTE | 2024-11-12 09:25 | HP.PTREVAL ---
Re-Evaluation Intro: Alida Parker NP-Bang, It has been my pleasure to treat MARTIN ELLSWORTH over the last 17 visits for PAIN IN RIGHT SHOULDER. Please see the progress note below for an update on the physical therapy plan of care! Subjective Subjective: Patient reports he can tell he is getting stronger. Objective Objective/Function: * Patient will benefit from skilled PT to increase strength of RTC and deltoid ,patient has made progress with increase ROM thus goals are appropriate and adjusted * POSTURE: mild forward posture NEURO: denies paresthesia/tingling AROM: shoulder flexion 170 degrees ,170 abduction ,ER 80 degrees ,IR L1 PALAPTION: unremarkable MMT: ( peak force) infraspinatus 4.7 ,supraspinatus 9,8,deltoid 4.9 CAPSULAR RESTRICTION: mild tight Plan Plan Plan: PATIENT APPEARS TO HAVE RTC TEAR PT INTERVENTION'S GRADED RTC STRENGTHENING ,ISOMETRICS ,POSTURAL EX'S ,SCAPULAR STRENGTHENING ,ACCESSORY STRENGTHENING SHOULDER AND MODALITIES NEEDED Balance/Gait/Functional tests Balance/Special Test Scores Quick DASH Score: 29.5450 Goals Goals Goal 1:: Patient to be I with shoulder ex's Goal Time Frame: 4-6 Weeks Goal Progress: Progressing Goal 2:: Patient to improve peak force RTC /deptoid by 5- strength to improve function and OH activities Goal Time Frame: 4-6 Weeks Goal Progress: Progressing Goal 3:: Patient to improve AROM to reach in cupboard to improve ADLS Goal Time Frame: 4-6 Weeks Goal Progress: Goal Met Goal 4:: Patient to improve quick dash by 5 points to improve QOL and function ( NEW GOAL) Goal Time Frame: 4-6 Weeks Goal Progress: Progressing Goal 5:: Patient to demonstrate 40-50% improvement with less pain with OH activities with right UE (NEW GOAL) Goal Time Frame: 4-6 Weeks Goal Progress: Progressing Anticipated Interventions Anticipated Interventions Patient/Client Instruction: Educate patient on: Condition and Plan of Care For the Purpose of:: To decrease pain, To increase ROM, To improve muscle performance and motor function, To improve ability to perform ADL's, To increase tolerance to activity/condition/position, To improve ability of physical actions for home/community/work/leisure, To improve health of tissue, To decrease soft tissue restriction, To increase flexibility/ROM and To improve tolerance to ADL's Therapeutic Exercise to Include: Strength training, Postural training, Active ROM and Scapular Strength/Stabilization Comment: RTC For the Purpose of:: To decrease pain, To increase ROM, To improve muscle performance and motor function, To improve ability to perform ADL's, To improve ability of physical actions for home/community/work/leisure, To improve health of tissue, To decrease soft tissue restriction, To increase flexibility/ROM and To improve tolerance to ADL's TENS: Yes IF ES: Yes Cryotherapy (ice pack, ice massage): Yes Thermo therapy (hot pack): Yes Ultrasound (thermal/non thermal): Yes For the Purpose of:: To decrease pain, To increase ROM, To improve health of tissue and To decrease soft tissue restriction Re-Evaluation Ending Re-evaluation ending: Please do not hesitate to contact me at [phone] by phone or if you have questions or concerns regarding this new plan of care! Sincerely, Zane Alvarado, PT, Cert MDT, OCS
--- NOTE | 2024-12-10 09:14 | HP.PTDCSUM ---
Discharge Summary D/C summary: It has been my pleasure to treat MARTIN ELLSWORTH referred by ALEXANDRA Mathew, with the diagnosis of PAIN IN RIGHT SHOULDER for a total of 25 visit(s). Discharge Date: Please see the following information for a summary of their discharge status. Subjective Subjective: Doing well ready for d/c Pain Right: Pain Intensity (Out of 10): 0 Overall Improvement % Improvement: 80 Objective Objective/Function: POSTURE: mild forward posture NEURO: denies paresthesia/tingling AROM: shoulder flexion 170 degrees ,170 abduction ,ER 90 degrees ,IR L5 PALAPTION: unremarkable MMT: ( peak force) infraspinatus 8.4 ,supraspinatus 11.8,deltoid 6.8 CAPSULAR RESTRICTION: mild tight Goals Goal 1:: Patient to be I with shoulder ex's Goal Progress: Goal Met Goal 2:: Patient to improve peak force RTC /deptoid by 5- strength to improve function and OH activities Goal Progress: Progressing Goal 3:: Patient to improve AROM to reach in cupboard to improve ADLS Goal Progress: Goal Met Goal 4:: Patient to improve quick dash by 5 points to improve QOL and function ( NEW GOAL) Goal Progress: Goal Met Goal 5:: Patient to demonstrate 40-50% improvement with less pain with OH activities with right UE (NEW GOAL) Goal Progress: Goal Met Plan Plan: D/C D/C Information d/c sentence: If there are questions or concerns regarding this patient's physical therapy, please feel free to call me at [phone]. Thank you for the referral of this patient. Sincerely, Zane Alvarado, PT, Cert MDT, OCS Balance/Gait/Functional tests Balance/Special Test Scores Quick DASH Score: 9.0900 Improvement % Improvement: 80
== END 2024-12-10 10:19 | disposition home or self-care (01) ==
LOC: PT 08:30
PROVIDERS: PCP Nurse Practitioner Family; Visit Provider Nurse Practitioner Family
DX: M25.511 Pain in right shoulder (principal); Z91.81 History of falling
CPT/HCPCS: 97110; 97162; 97530

== ENCOUNTER 2025-03-25 21:44 | Inpatient (IN) | payer MEDICARE, SELFPAY ==
[2025-03-25 21:46] VITALS: BP 112/72; PULSE 95; RESP 16; TEMP 36.8; O2SAT 97
[2025-03-25 22:23] LABS: Hematocrit 46.4 % (40-54); Hemoglobin 16.2 g/dL (13.0-16.5); Immature Granulocytes Count 0.050 X10^3/uL (0.0-0.0); Mean Corp Hgb Conc 34.9 g/dL (32-36); Mean Corpuscular Volume 89.6 fL (80-94); Mean Platelet Vol. 10.4 fl (6.2-12.0); NRBC Flagged by Analyzer 0 % (0-5); Platelet Count 130 K/mm3 (150-450); RBC Distribution Width CV 12.8 % (11.6-14.6); RBC Distribution Width SD 42.0 fl (35.1-43.9); Red Blood Count 5.18 M/mm3 (4.6-6.2); White Blood Count 13.3 K/mm3 (4.4-11.0)
--- NOTE | 2025-03-25 22:45 | RAD_ITS ---
PROCEDURE: CHEST PA AND LATERAL 03/25/2025 REASON FOR EXAM: WEAKNESS TECHNIQUE: CHEST PA AND LATERAL COMPARISON: 05/31/2023 FINDINGS: Lungs/Pleura: Clear. No pneumothorax or pleural effusion. Heart/Mediastinum: Cardiomegaly. Aortic valve prosthesis. Bones/Soft tissues: Multilevel degenerative changes of the spine with DISH. Sternotomy wires. Right humeral head suture anchor screws. RAD/Chest PA and Lateral IMPRESSION: Cardiomegaly. No acute pulmonary disease. Reading Location: [id number]
--- OUTSIDE RECORDS SUMMARY | 2025-03-25 22:46 | XMS RPT_ITS | CCD ---
Author Organization [facility] Care Team Providers Care Cardiovascular Or Nurse Name Role Phone Debo VELAZQUEZ, Nae Kapadia Unavailable Unavailable Rigoberto, Chantalle D Unavailable Unavailable Rigoberto, Chantalle D Unavailable Unavailable Rigoberto, Chantalle D Unavailable Unavailable DeFinis, Harumi Y Unavailable Unavailable DeFinis, Harumi Y Unavailable Unavailable Katie Harmon N Unavailable Ann Solis Unavailable Katie Harmon N Unavailable DeFinis, Harumi Y Unavailable Unavailable Rigoberto, Chantalle D Unavailable Unavailable Dr. Geoff Sainz Primary Care Provider Dr. Alen Phillips Attending Provider Dr. Geoff Sainz Referring Provider Dr. Samantha Shah Attending Provider Dr. Eliseo Solano Attending Provider Geoff Sainz MD Primary Care Provider [phone] Dr. Geoff Sainz Primary Care Provider Dr. Geoff Sainz Referring Provider HERBERT Bacon Attending Provider HERBERT Cerda Attending Provider Dr. Geoff Sainz Primary Care Provider Unavaila ble Dr. Geoff Sainz Referring Provider Unavailable ALEXANDRA Mathews Primary Care Provider Dr. Nitesh Jimenez Attending Provider Dr. Nitesh Jimenez Referring Provider Barbara, Dr. Nitesh Other Provider SINGH BARRIENTOS ([place]) Referring Unava GEOFF Monzon Primary Care Unavailable Barbara EMERSON, Nitesh Toro Unavailable Ramon EMERSON, Usha Louise Unavailable Bisi MICA PATCHER, Abdiel Primary Care Provider [phone] Bisi MICA PATCHER, Abdiel Primary Care Provider [phone] Vidya EMERSON, Deena Unavailable Bisi MICA PATCHER, Abdiel Primary Care Provider BISI, ABDIEL Primary Care Unavailable HAOUZI-JUDENHERC, DEENA Referring Unavail able BISI, ABDIEL Primary Care Unavailable HAOUZI-JUDENHERC, DEENA Referring Unavail able BISI, ABDIEL Primary Care Unavailable HAOUZI-JUDENHERC, DEENA Referring Unavail able BISI, ABDIEL Primary Care Unavailable HAOUZI-JUDENHERC, DEENA Referring Unavail able HAOUZI-JUDENHERC, DEENA Referring Unavail able BISI, ABDIEL Primary Care Unavailable BISI, ABDIEL Primary Care Unavailable HAOUZI-JUDENHERC, DEENA Referring Unavail able BISI, ABDIEL Primary Care Unavailable HAOUZI-JUDENHERC, DEENA Referring Unavail able BISI, ABDIEL Primary Care Unavailable HAOUZI-JUDENHERC, DEENA Referring Unavail able BISI, ABDIEL Primary Care Unavailable HAOUZI-JUDENHERC, DEENA Referring Unavail able BISI, ABDIEL Primary Care Unavailable HAOUZI-JUDENHERC, DEENA Referring Unavail able BISI, ABDIEL Primary Care Unavailable HAOUZI-JUDENHERC, DEENA Referring Unavail able BISI, ABDIEL Primary Care Unavailable HAOUZI-JUDENHERC, DEENA Referring Unavail able BISI, ABDIEL Primary Care Unavailable HAOUZI-JUDENHERC, DEENA Referring Unavail able BISI, ABDIEL Primary Care Unavailable HAOUZI-JUDENHERC, DEENA Referring Unavail able BISI, ABDIEL Primary Care Unavailable HAOUZI-JUDENHERC, DEENA Referring Unavail able BISI, ABDIEL Primary Care Unavailable HAOUZI-JUDENHERC, DEENA Referring Unavail able BISI, ABDIEL Primary Care Unavailable HAOUZI-JUDENHERC, DEENA Referring Unavail able BISI, CHATTANOOGA Primary Care Unavailable HAOUZI-JUDENHERC, DEENA Referring Unavail able BISI, CHATTANOOGA Primary Care Unavailable HAOUZI-JUDENHERC, DEENA Referring Unavail able BISI, CHATTANOOGA Primary Care Unavailable HAOUZI-JUDENHERC, DEENA Referring Unavail able BISI, CHATTANOOGA Primary Care Unavailable HAOUZI-JUDENHERC, DEENA Referring Unavail able HAOUZI-JUDENHERC, DEENA Referring Unavail able BISI, CHATTANOOGA Primary Care Unavailable HAOUZI-JUDENHERC, DEENA Referring Unavail able BISI, CHATTANOOGA Primary Care Unavailable BISI, CHATTANOOGA Primary Care Unavailable HAOUZI-JUDENHERC, DEENA Referring Unavail able BISI, CHATTANOOGA Primary Care Unavailable HAOUZI-JUDENHERC, DEENA Referring Unavail able BISI, CHATTANOOGA Primary Care Unavailable HAOUZI-JUDENHERC, DEENA Referring Unavail able BISI, [place]ATTANOOGA Primary Care Unavailable HAOUZI-JUDENHERC, DEENA Referring Unavail able BISI, CHATTANOOGA Primary Care Unavailable HAOUZI-JUDENHERC, DEENA Referring Unavail able BISI, [place]ANOO[place] Primary Care Unavailable HAOUZI-JUDENHERC, DEENA Referring Unavail able BISI, [place]ANOOGA Primary Care Unavailable HAOUZI-JUDENHERC, DEENA Referring Unavail able BISI, [place]AN[place] Primary Care Unavailable HAOUZI-JUDENHERC, DEENA Referring Unavail able BISI, [place]ATTANOO[place] Primary Care Unavailable HAOUZI-JUDENHERC, DEENA Referring Unavail able BISI, [place]ANOO[place] Primary Care Unavailable HAOUZI-JUDENHERC, DEENA Referring Unavail able BISI, [place]OO[place] Primary Care Unavailable HAOUZI-JUDENHERC, DEENA Referring Unavail able BISI, [place] Primary Care Unavailable HAOUZI-JUDENHERC, DEENA Referring Unavail able BISI, [place]ANOO[place] Primary Care Unavailable HAOUZI-JUDENHERC, DEENA Referring Unavail able BISI, [place]AN[place] Primary Care Unavailable HAOUZI-JUDENHERC, DEENA Referring Unavail able BISI, [place] Primary Care Unavailable HAOUZI-JUDENHERC, DEENA Referring Unavail able HAOUZI-JUDENHERC, DEENA Referring Unavail able BISI, CHATTANOOGA Primary Care Unavailable HAOUZI-JUDENHERC, DEENA Referring Unavail able BISI, CHATTANOOGA Primary Care Unavailable HAOUZI-JUDENHERC, DEENA Attending Unavail able BISI, ABDIEL Primary Care Unavailable BISI, ABDIEL Primary Care Unavailable BISI, ABDIEL Primary Care Unavailable HAOUZI-JUDENHERC, DEENA Referring Unavail able HARRIET HOGAN Attending Unavailable BISI, ABDIEL Primary Care Unavailable BISI, ABDIEL Primary Care Unavailable HAOUZI-JUDENHERC, DEENA Referring Unavail able EDMUND KAMARA Attending Unavailable BISI, ABDIEL Primary Care Unavailable BISI, ABDIEL Primary Care Unavailable HAOUZI-JUDENHERC, DEENA Referring Unavail able BISI, ABDIEL Primary Care Unavailable HAOUZI-JUDENHERC, DEENA Referring Unavail able BISI, ABDIEL Primary Care Unavailable HAOUZI-JUDENHERC, DEENA Referring Unavail able HAOUZI-JUDENHERC, DEENA Attending Unavail able BISI, ABDIEL Primary Care Unavailable HAOUZI-JUDENHERC, DEENA Referring Unavail able BISI, ABDIEL Primary Care Unavailable HAOUZI-JUDENHERC, DEENA Referring Unavail able HAOUZI-JUDENHERC, DEENA Attending Unavail able HAOUZI-JUDENHERC, DEENA Referring Unavail able BISI, ABDIEL Primary Care Unavailable Bisi MICA PATCHER-C, Abdiel Primary Care Provider Bisi MICA PATCHER-C, Abdiel Attending Provider [phone] Bisi MICA PATCHER-C, Abdiel Referring Provider Bisi, Abdiel Primary Care Unavailable Bisi, Abdiel Attending Unavailable Bisi, Abdiel Referring Unavailable Bisi, Abdiel Primary Care Unavailable Bisi, Abdiel Attending Unavailable Bisi, Abdiel Referring Unavailable Bisi, Abdiel Primary Care Unavailable Bisi, Abdiel Attending Unavailable Bisi, Abdiel Primary Care Unavailable Nitesh Jimenez Attending Unavailable Bisi, Abdiel Referring Unavailable Bisi, Abdiel Primary Care Unavailable Singh Barrientos Attending Unavailabl e Bisi, Abdiel Referring Unavailable Medications Current Medications Medication Drug Class(es) Dates Sig (Normalized) Sig (Original) acetaminophen 325 mg oral tablet (20 sources) Start: 08-05-2023 take 2 tablets by mouth every six hours as needed acetaminophen (TYLENOL) 325 mg tablet Take 2 tablets by mouth every 6 hours as needed (for mild surgical pain). 100 tablet 08/05/2023 Active Comment on above: Take 2 tablets by mo [facility] every 6 hours as needed (for mild surgical pain). amoxicillin 500 mg oral tablet (20 sources) Penicillin-class Antibacterial Start: 11-13-2017 End: 08-04-2024 take 1 tablet by mouth every hour Amoxicillin 500 mg tablet Active 0 PO .COMPLEX 8 August 04, 2024 12:01pm 500mg, 4 tablets, 1 hr prior to procedure PO Start: 08-24-2014 take 4 tablets by mo [facility] every hour AMOXICILLIN 500 MG TABS Four tablets by mouth 1 hr prior to procedure AMOXICILLIN [id number] Singh Barrientos PA-C aspirin 81 mg delayed release oral tablet (20 sources) Platelet Aggregation Inhibitor, Nonsteroidal Anti-inflammatory Drug Start: 08-05-2023 take 1 tablet by mouth once daily aspirin, enteric coated (ASPIRIN, ENTERIC COATED) 81 mg EC tablet Take 1 tablet by mouth once daily. 90 tablet 1 08/05/2023 Active Start: 07-23-2014 take 1 tablet by destinee th once daily Aspirin 81 MG tablet,chewable Active 81 mg PO DAILY@0800 July 23, 2014 1:00am Start: 07-22-2014 aspirin, enter ic coated (ASPIRIN, ENTERIC COATED) 81 mg EC tablet Take by mouth. 0 07/22/2014 Suspended Start: 07-22-2014 take 1 tablet by destinee th once daily ASPIRIN 81 MG TABS One tablet by mouth daily ASPIRIN [id number] Ava Moraes RN Start: 07-22-2014 take 1 tablet by destinee th once daily ASPIRIN 81 MG TABS One tablet by mouth daily ASPIRIN [id number] Ava Moraes RN Comment on above: Take by mouth. Take 1 tablet by destinee th once daily. atorvastatin 20 mg oral tablet (20 sources) HMG-CoA Reductase Inhibitor Start: take 1 tablet by mouth once daily at bedtime atorvastatin (LIPITOR) 20 mg tablet Take 1 tablet by mouth daily at bedtime. 90 tablet 1 08/05/2023 Active Start: 07-26-2014 End: 09-30-2020 take 1 tablet by mouth at bedtime Atorvastatin 20 mg tablet Discontinued 20 mg PO AT BEDTIME September 01, 2019 1:02pm September 30, 2020 5:44pm Comment on above: Take 1 tablet by destinee th daily at bedtime. metoprolol tartrate 50 mg oral tablet (20 sources) beta-Adrenergic Shara Start: 05-04-2024 take 2 tablets by mouth once daily in the morning, then take 1 tablet by mouth once daily in the evening Metoprolol Tartrate 50 mg tablet Active 0 PO TWICE A DAY May 04, 2024 8:56am 2 tablets qam, 1 tablet qpm Start: 01-08-2024 take 2 tablets by mo [facility] once daily at breakfast, then take 1 tablet by mouth once daily at bedtime metoprolol succinate ER (TOPROL XL) 100 mg Take 2 tablets by mouth daily with breakfast AND 1 tablet daily at bedtime. 150 tablet 1 01/08/2024 Active Start: 11-04-2023 End: 05-04-2024 take 1.5 tablets by mouth once daily in the morning, then take 1 tablet by mouth once daily in the evening Metoprolol Tartrate 50 mg tablet Discontinued 0 PO TWICE A DAY 225 December 02, 2023 2:35pm May 04, 2024 8:58am 1.5 tablets qam, 1 tablet qpm Start: 08-05-2023 End: 01-08-2024 take 1.5 tablets by mouth once daily at breakfast, then take 1 tablet by mouth once daily at bedtime metoprolol succinate ER (TOPROL XL) 100 mg Take 1.5 tablets by mouth daily with breakfast AND 1 tablet daily at bedtime. 150 tablet 1 08/05/2023 01/08/2024 Discontinued Start: 06-10-2023 End: 11-04-2023 take 1 tablet by mouth twice daily Metoprolol Tartrate 50 mg tablet Discontinued 50 mg PO TWICE A DAY 120 June 10, 2023 9:31am November 04, 2023 11:02am Start: 07-22-2014 End: 06-10-2023 take 1 tablet by mouth twice daily Metoprolol Tartrate 25 mg tablet Discontinued 25 mg PO TWICE A DAY 180 December 13, 2022 10:36am June 10, 2023 9:31am Comment on above: Take 1.5 tablets by mouth daily with breakfast AND 1 tablet daily at bedtime. Multivitamin (Daily Multi-Vitamin) tablet (1 source) Start: 11-04-2023 Multivitamin (Daily Multi-Vitamin) tablet Active 1 {tbl} PO DAILY November 04, 2023 1:00am MULTIVITAMIN TAB (20 sources) Start: 07-15-2006 MULTIVITAMIN TAB Take one(1) tablet daily. 0 07/15/2006 Suspended Start: 07-15-2006 MULTIVITAMIN T AB Take one(1) tablet daily. 0 07/15/2006 Active Comment on above: Take one(1) tablet d aily. nitroglycerin 0.4 mg sublingual tablet (20 sources) Nitrate Vasodilator Start: 11-13-2017 End: 10-03-2020 Nitroglycerin (Nitrostat) 0.4 mg tablet, sublingual Active 0.4 mg SL Q5M as needed for chest pain October 03, 2020 5:30pm Start: 11-13-2017 End: 10-03-2020 Nitroglycerin (Nitrostat) 0. 4 mg tablet, sublingual Active 0.4 MG SL Q5M October 03, 2020 5:30pm Start: 07-22-2014 NITROSTAT 0.4 MG SUBL 1 tablet sublingual every 5 minutes x 3 for chest pain NITROGLYCERIN [id number] Alen Phillips MD omeprazole 40 mg delayed release oral capsule (20 sources) Proton Pump Inhibitor Start: 08-05-2023 take 1 capsule by mouth once daily omeprazole (PRILOSEC) 40 mg capsule Take 1 capsule by mouth once daily. 90 capsule 1 08/05/2023 Active Start: 04-11-2015 End: 10-04-2021 take 1 capsule by mouth once daily Omeprazole 40 MG capsule,delayed release(DR/EC) Discontinued 40 mg PO DAILY February 24, 2016 12:00am October 04, 2021 5:05pm Comment on above: Take 1 capsule by [facility] once daily. microencapsulated potassium chloride 20 meq extended release oral tablet (3 sources) Start: 08-06-20 End: 08-13-20 take 1 tablet by mouth once daily potassium chloride ER (KLOR-CON) 20 mEq tablet Take 1 tablet by mouth once daily for 7 days. 7 tablet 0 08/06/2023 08/13/2023 Active Comment on above: Take 1 tablet by [facility] once daily for 7 days. telmisartan 20 mg oral tablet (16 sources) Angiotensin 2 Receptor Shara Start: 05-06-20 take 2 tablets by mouth once daily Telmisartan 20 mg tablet Indications: Primary hypertension Take 2 tablets by mouth once daily. 60 tablet 3 05/06/2024 Active Start: 05-04-2024 take 1 tablet by destinee th once daily Telmisartan 20 mg tablet Active 20 mg PO DAILY May 04, 2024 12:00am Start: 03-25-2024 End: 04-23-2024 take 2 tablets by mouth once daily Telmisartan 20 mg tablet Indications: Primary hypertension Take 2 tablets by mouth once daily. 60 tablet 3 03/25/2024 04/23/2024 Discontinued Completed/Discontinued Medications Medication Drug Class(es) Dates Sig (Normalized) Sig (Original) acetaminophen 33.3 mg/ml / diphenhydrAMINE hydrochloride 1.67 mg/ml oral solution (16 sources) Histamine-1 Receptor Antagonist Start: 07-15-2006 TYLENOL PM 25 MG-500 MG/15 ML ORAL SOLN one tablet by mouth at night as needed 0 07/15/2006 Suspended Comment on above: one tablet by mouth at night as needed acetaminophen 325 mg / HYDROcodone bitartrate 5 mg oral tablet (8 sources) Opioid Agonist Start: 04-17-2017 End: 11-14-2017 Hydrocodone-Acetam inophen 1 TABLET tablet Discontinued 1 - 2 {tbl} PO EVERY 6 HOURS NEEDED as needed for Pain 60 April 17, 2017 12:00am November 14, 2017 4:45pm Start: 04-17-2017 End: 11-14-2017 take 1 tablet by mouth every six hours as needed Hydrocodone-Acetaminophen Discontinued 1 - 2 TABLET PO EVERY 6 HOURS NEEDED 60 April 17, 2017 12:00am November 14, 2017 4:45pm cetirizine hydrochloride 10 mg oral capsule (20 sources) Histamine-1 Receptor Antagonist Start: 11-04-2023 End: 05-04-2024 take 1 capsule by mouth once daily as needed Cetirizine (Zyrtec) 10 mg capsule Discontinued 10 mg PO DAILY as needed November 04, 2023 1:00am May 04, 2024 8:57am Start: 08-05-2023 take 1 tablet by destinee th once daily as needed cetirizine (ZYRTEC) 10 mg tablet Take 1 tablet by mouth once daily as needed for cold/allergy symptoms. 08/05/2023 Active Comment on above: Take 1 tablet by destinee th once daily as needed for cold/allergy symptoms. cholecalciferol 2000 unt oral tablet (20 sources) Vitamin D Start: 014 End: 016 take 1 tablet by mouth once daily VITAMIN D 2000 UNIT TABS One tablet by mouth daily CHOLECALCIFEROL [id number] Singh Barrientos PA-C clindamycin 150 mg oral capsule (16 sources) Lincosamide Antibacterial Start: 017 End: 018 take 2 capsules by mouth three times daily Clindamycin Hcl 150 MG capsule Discontinued 300 mg PO THREE TIMES A DAY 60 April 17, 2017 12:00am November 14, 2017 4:45pm Start: 04-17-2017 End: 11-14-2017 take 300 mg by mouth three times daily Clindamycin Hcl Discontinued 300 MG PO THREE TIMES A DAY 60 April 17, 2017 12:00am November 14, 2017 4:45pm Start: 04-16-2017 End: 11-14-2017 Clindamycin Hcl 300 MG capsu le Discontinued 1 {tbl} PO Q4H April 16, 2017 12:00am November 14, 2017 4:45pm docusate sodium 100 mg oral capsule (20 sources) Start: 08-05-2023 End: 01-08-2024 take 1 capsule by mouth twice daily docusate sodium (COLACE) 100 mg capsule Take 1 capsule by mouth two times a day. 30 capsule 0 08/05/2023 01/08/2024 Discontinued Comment on above: Take 1 capsule by mo [facility] two times a day. doxycycline hyclate 100 mg oral tablet (20 sources) Tetracycline-clas s Drug Start: 09-03-2023 End: 01-08-2024 take 1 tablet by mouth twice daily doxycycline (VIBRA-TABS) 100 mg tablet Take 1 tablet by mouth two times a day. 20 tablet 0 09/03/2023 01/08/2024 Discontinued Comment on above: Take 1 tablet by destinee th two times a day. empagliflozin 10 mg oral tablet (20 sources) Sodium-Glucose Cotransporter 2 Inhibitor Start: 09-18-2023 End: 07-10-2025 take 1 tablet by mouth once daily at breakfast empagliflozin (JARDIANCE) 10 mg tablet Take 1 tablet by mouth daily with breakfast. 90 tablet 3 03/18/2024 03/05/2025 Discontinued Comment on above: Take 1 tablet by destinee th daily with breakfast. furosemide 40 mg oral tablet (20 sources) Loop Diuretic Start: 08-06-2023 End: 01-08-2024 take 1 tablet by mouth once daily furosemide (LASIX) 40 mg tablet Take 1 tablet by mouth once daily for 7 days. 7 tablet 0 08/06/2023 01/08/2024 Discontinued Comment on above: Take 1 tablet by destinee th once daily for 7 days. hydroCHLOROthiazide 12.5 mg / lisinopril 10 mg oral tablet (20 sources) Thiazide Diuretic, Angiotensin Converting Enzyme Inhibitor Start: 05-31-2023 lisinopril-hydroC HLOROthiazide (ZESTORETIC) 10-12.5 mg per tablet Start: 07-23-2014 End: 06-10-2023 take 1 tablet by mouth once daily Lisinopril-Hydrochlorothiazide Discontin ued 1 TABLET PO DAILY September 30, 2020 5:44pm June 10, 2023 9:31am Start: 07-22-2014 End: 06-10-2023 Lisinopril-Hydrochlorothiazi de 10-12.5 mg tablet Discontinued 1 {tbl} PO DAILY September 30, 2020 5:44pm June 10, 2023 9:31am iv contrast (will be provided with radiology test) (2 sources) Start: 03-25-2024 End: 03-26-2024 inject 1 dose intravenously once iv contrast (will be provided with radiology test) CTA Chest. No IV access, insert saline lock prior to the sedation, infusion, injection for imaging exam. Discontinue saline lock post exam. If Pt. has a central line or IVAD, may access for administration according to line specific nursing protocol. Once exam is complete flush line and de-access according to line specific nursing protocol in the CT contrast administration guidelines link. 1 Each 0 03/25/2024 03/26/2024 Start: 09-18-2023 End: 09-19-2023 inject 1 dose intravenously once iv contrast (will be provided with radiology test) CTA Chest. No IV access, insert saline lock prior to the sedation, infusion, injection for imaging exam. Discontinue saline lock post exam. If Pt. has a central line or IVAD, may access for administration according to line specific nursing protocol. Once exam is complete flush line and de-access according to line specific nursing protocol in the CT contrast administration guidelines link. 1 Each 0 09/18/2023 09/19/2023 Comment on above: CTA Chest. No IV acc ess, insert saline lock prior to the sedation, infusion, injection for imaging exam. Discontinue saline lock post exam. If Pt. has a central line or IVAD, may access for administration according to line specific nursing protocol. Once exam is complete flush line and de-access according to line specific nursing protocol in the CT contrast administration guidelines link. lidocaine 0.04 mg/mg medicated patch (1 source) Antiarrhythmic, Amide Local Anesthetic Start: 3 End: 3 lidocaine (SALONPAS) 4 % patch Apply 2 Patches as directed once daily. APPLY TO: CHEST and Chest tube sites - Remove patch after 12 hours. 20 Patch 0 08/05/2023 08/08/2023 Discontinued (Discontinued by Patient) Comment on above: Apply 2 Patches as d irected once daily. APPLY TO: CHEST and Chest tube sites - Remove patch after 12 hours. lisinopril 5 mg oral tablet (20 sources) Angiotensin Converting Enzyme Inhibitor Start: 4 End: 4 take 1 tablet by mouth twice daily lisinopril (ZESTRIL) 5 mg tablet Take 1 tablet by mouth two times a day. 180 tablet 2 01/08/2024 03/25/2024 Discontinued Start: 09-18-2023 End: 05-04-2024 take 1 tablet by mouth once daily Lisinopril 5 mg tablet Discontinued 5 mg PO DAILY November 04, 2023 1:00am May 04, 2024 8:57am Comment on above: Take 1 tablet by destinee th once daily. loratadine 10 mg oral tablet (16 sources) Start: 10-04-19 End: 11-04-19 24 take 1 tablet by mouth once daily as needed Loratadine 10 mg tablet Discontinued 10 mg PO DAILY as needed for allergy symptoms October 04, 2021 1:00am November 04, 2023 11:01am Comment on above: Take by mouth. magnesium oxide 400 mg oral tablet (1 source) Start: 08-05-20 End: 08-08-20 take 2 tablets by mouth once daily magnesium oxide (MAG-OX) 400 mg (241.3 mg magnesium) tablet Take 2 tablets by mouth once daily for 7 days. 14 tablet 0 08/05/2023 08/08/2023 Discontinued (Course of therapy completed) Comment on above: Take 2 tablets by mo [facility] once daily for 7 days. meloxicam 15 mg oral tablet (8 sources) Nonsteroidal Anti-inflammatory Drug Start: 04-17-20 End: 11-15-19 18 take 1 tablet by mouth once daily Meloxicam 15 MG tablet Discontinued 15 mg PO DAILY April 17, 2017 12:00am November 14, 2017 4:46pm MULTIPLE VITAMIN (11 sources) Start: 07-22-20 14 take 1 tablet by mouth once daily MULTIVITAMINS TABS One tablet by mouth daily MULTIPLE VITAMIN Monique Fair RN mupirocin 0.02 mg/mg topical ointment (4 sources) RNA Synthetase Inhibitor Antibacterial Start: 07-25-20 mupirocin (BACTROBAN) 2 % ointment Apply a small amount in each nostril using a cotton swab twice the day before surgery and once the morning of surgery. 22 g 0 07/25/2023 Suspended Comment on above: Apply a small amount in each nostril using a cotton swab twice the day before surgery and once the morning of surgery. Problems Active Problems Problem Classification Problem Date Documented Date Episodic/Chronic Aortic; peripheral; and visceral artery aneurysms (20 sources) Aortic root dilatation; Translations: [Thoracic aortic ectasia] Onset: 3 Chronic Cardiac and circulatory congenital anomalies (20 sources) Bicuspid aortic valve; Translations: [Congenital insufficiency of aortic valve] Onset: 4 07-26-2014 Chronic Cardiac dysrhythmias (2 sources) Nonsustained ventricular tachycardia ; Translations: [NSVT (nonsustained ventricular tachycardia) (HCC)] 06-22-2024 Chronic Coagulation and hemorrhagic disorders (20 sources) Thrombocytopenic disorder; Translations: [Thrombocytopenia, unspecified] Onset: 3 08-03-2023 Chronic Congestive heart failure; nonhypertensive (2 sources) Chronic heart failure co-occurrent with normal ejection fraction; Translations: [Chronic diastolic (congestive) heart failure] Onset: 4 01-08-2024 Chronic Coronary atherosclerosis and other heart disease (20 sources) Angina pectoris; Translations: [Angina pectoris, unspecified] Onset: 4 07-22-2014 Chronic Disorders of lipid metabolism (20 sources) Hyperlipidemia; Translations: [Pure hypercholesterolemia] Onset: 4 09-07-2014 Chronic Esophageal disorders (20 sources) Gastroesophageal reflux disease without esophagitis; Translations: [Gastro-esophageal reflux disease without esophagitis] Onset: 3 08-03-2023 Chronic Essential hypertension (20 sources) Hypertensive disorder; Translations: [Essential hypertension] Onset: 4 07-22-2014 Chronic Heart valve disorders (20 sources) Aortic stenosis, non-rheumatic ; Translations: [Nonrheumatic aortic (valve) stenosis] Onset: Chronic Comment on above: Moderate per ECHO 07/2023 [facility] # 25 Ins piris bioprosthetic Heart valve disorders (19 sources) Heart murmur; Translations: [Cardiac murmur, unspecified] Onset: 4 07-22-2014 Episodic Mycoses (5 sources) Dermal mycosis; 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, unspecified] 01-15-2023 Episodic Osteoarthritis (11 sources) Idiopathic osteoarthritis; Translations: [Primary osteoarthritis, left shoulder] Onset: 6 02-19-2016 Chronic Other aftercare (12 sources) Other remote computer terminal operator (current) drug therapy; Translations: [Long-term current use of drug therapy] Onset: 5 03-30-2015 Episodic Other aftercare (2 sources) Surgical follow-up; Translations: [Encounter for follow-up examination after completed treatment for conditions other than malignant neoplasm] 08-02-2023 Episodic Other circulatory disease (2 sources) Vascular disorder; Translations: [Unspecified disorder of circulatory system] 09-18-2023 Episodic Other nervous system disorders (20 sources) Aphasia; Translations: [Aphasia] Onset: 3 07-30-2023 Chronic Other non-traumatic joint disorders (1 source) Pain in right shoulder; Translations: [Pain in right shoulder] Onset: 5 Episodic Other nutritional; endocrine; and metabolic disorders (18 sources) Body mass index (BMI) 33.0-33.9, adult; Translations: [Body mass index (BMI) 35.0-35.9, adult] Onset: 4 07-22-2014 Chronic Other nutritional; endocrine; and metabolic disorders (4 sources) Body mass index (BMI) 35.0-35.9, adult; Translations: [Body mass index (BMI) 35.0-35.9, adult] Onset: 4 10-10-2015 Chronic Other nutritional; endocrine; and metabolic disorders (20 sources) Body mass index 30+ - obesity; Translations: [Obesity, unspecified] Onset: 1 09-04-2021 Chronic Other nutritional; endocrine; and metabolic disorders (20 sources) Obese class I; Translations: [Obesity, unspecified] Onset: 4 09-18-2023 Chronic Other screening for suspected conditions (not mental disorders or infectious disease) (19 sources) Electrocardiogram abnormal; Translations: [Abnormal electrocardiogram [ECG] [EKG]] Onset: 4 07-22-2014 Episodic Rae-; endo-; and myocarditis; cardiomyopathy (except that caused by tuberculosis or sexually transmitted disease) (20 sources) Cardiomyopathy; Translations: [Cardiomyopathy, unspecified] Onset: 4 Chronic Residual codes; unclassified (2 sources) History of repair of ascending aorta; Translations: [Other specified postprocedural states] 08-08-2023 Episodic Comment on above: 07/29/2023 [facility] Respiratory failure; insufficiency; arrest (adult) (20 sources) Ventilator finding; Translations: [Dependence on respirator [ventilator] status] Onset: 3 07-29-2023 Chronic Unclassified (11 sources) Aftercare ; Translations: [Encounter for other orthopedic aftercare] Onset: 6 03-14-2016 Unclassified (1 source) NSVT (nonsustained ventricular tachycardia) (HCC); Translations: [NSVT (nonsustained ventricular tachycardia) (HCC)] Onset: 4 Past or Other Problems Problem Classification Problem Date Documented Date Episodic/Chronic Acute posthemorrhagic anemia (20 sources) Acute posthemorrhagic anemia; Translations: [Acute posthemorrhagic anemia] Onset: 08-03-2023 08-03-2023 Episodic Administrative/social admission (20 sources) Discharge status; Translations: [Encounter for administrative examinations, unspecified] Onset: 07-24-2023 07-24-2023 Episodic Complications of surgical procedures or medical care (20 sources) Postoperative ileus; Translations: [Other postprocedural complications and disorders of digestive system] Onset: 08-02-2023 08-02-2023 Episodic Fluid and electrolyte disorders (20 sources) Hypovolemia; Translations: [Hypovolemia] Onset: 07-29-2023 07-29-2023 Episodic Nonspecific chest pain (11 sources) Chest pain, unspecified; Translations: [Chest pain, unspecified] Onset: 07-22-2014 07-22-2014 Episodic Other aftercare (20 sources) Strain of muscle(s) and tendon(s) of the rotator cuff of left shoulder, subsequent encounter; Translations: [Other longterm (current) drug therapy] Onset: 07-26-2014 Resolved: 03-30-2015 02-19-2016 Episodic Other circulatory disease (20 sources) Low blood pressure; Translations: [Hypotension, unspecified] Onset: 07-29-2023 07-29-2023 Episodic Other circulatory disease (1 source) Unspecified disorder of circulatory system; Translations: [Vasculopathy] Onset: 01-08-2024 Episodic Other connective tissue disease (11 sources) Infection of prepatellar bursa; Translations: [Prepatellar bursitis, unspecified knee] Onset: 04-15-2017 04-15-2017 Episodic Other connective tissue disease (20 sources) Full thickness rotator cuff tear; Translations: [Complete rotator cuff tear or rupture of unspecified shoulder, not specified as traumatic] Onset: 10-03-2006 09-04-2021 Episodic Other nervous system disorders (20 sources) Postoperative pain ; Translations: [Other acute postprocedural pain] Onset: 07-29-2023 07-29-2023 Episodic Other non-traumatic joint disorders (11 sources) Pain in left shoulder; Translations: [Pain in left shoulder] Onset: 01-23-2016 01-23-2016 Episodic Other non-traumatic joint disorders (20 sources) Joint pain; Translations: [Pain in unspecified joint] Onset: 05-20-2006 Resolved: 10-03-2006 10-03-2006 Episodic Other screening for suspected conditions (not mental disorders or infectious disease) (20 sources) Echocardiogram abnormal; Translations: [Abnormal findings on diagnostic imaging of heart and coronary circulation] Onset: 03-13-2011 03-13-2011 Episodic Residual codes; unclassified (18 sources) FH: Hypertension; Translations: [Family history of stroke] 07-22-2014 Episodic Residual codes; unclassified (4 sources) Family history of stroke; Translations: [Family history of stroke] 07-22-2014 Episodic Sprains and strains (20 sources) Strain of muscle(s) and tendon(s) of the rotator cuff of left shoulder, initial encounter; Translations: [Strain of muscle(s) and tendon(s) of the rotator cuff of left shoulder, subsequent encounter] Onset: 05-20-2006 Resolved: 10-03-2006 01-23-2016 Episodic Unclassified (8 sources) Long-term drug therapy; Translations: [Long-term (current) use of other medications] Onset: 07-26-2014 Resolved: 03-30-2015 07-26-2014 Results Test Name Value Interpretation Reference Range Facility Cardiology Visit Reporton Cardiology Visit Report [facility] [address] [place] [address] OFFICE VISIT Date of Service: 12/24/24 MR#: [id number] Acct: [id number] Name: MARTIN HENSON Rep #: [id number] : 1955 Provider: Dr. Nitesh Jimenez MD Age/Sex: 69/M Location: [facility] [place] Status: Signed HPI HPI History of Present Illness Details: Martin Henson is a 69 year-old white male who presents today for outpatient cardiovascular follow-up of his history of underlying bicuspid aortic valve with aortic valve stenosis and aortic root dilatation superimposed upon hyperlipidemia and hypertension. His last echocardiogram that was done in 07/2022 demonstrated an LVEF of 75%; severe concentric LVH; aortic valve with findings compatible with severe aortic valve stenosis and a mildly dilated aortic root; additional findings suggestive but not definitive for a possible diagnosis of amyloid.???He was evaluated by hematology for amyloid, all these tests were negative. Cardiac MRI was concerning for cardiac amyloid. PYP was negative. He did undergo a diagnostic heart cath on 06/10/23, this demonstrated Normal coronary arteries, Normal LV size, wall motion,and systolic function, Aortic Root dilated, Aortic Valve Stenosis- Severe, Cardiomyopathy: Hypertrophic. He was referred to Dr. Navarro, he underwent an AVR with a #25 Inspra, ascending aortoplasty on . Echocardiogram in January 2024 at [facility] demonstrated left ventricle small severe concentric LVH estimated ejection fraction 70%. Stable prosthetic aortic valve. Intracavitary gradient of 102 mmHg from severe LVH. No obvious SANJEEV. Stress echo done in April 2024 [facility]. Exercise stress echo was negative for ischemia at 7.2 METS. No regional wall motion noted. Severe asymmetric LVH. Left atrial cavity increased from 36 mm work gree at rest to 110 mmHg post exercise. He tells me that he continues to do remarkably well. He did have an echocardiogram performed in March 2024 at the [facility] demonstrating severe asymmetric low ventricular hypertrophy and a normally functioning bioprosthetic aortic valve. He denies any dizziness or diaphoresis near syncope or syncope. Intake Vital Signs 11/04/23 10:03 05/04/24 08:51 12/24/24 08:50 Height 6 ft 1 in 6 ft 1 in 6 ft 1 in Weight: 253 lb BMI 33.3 BP 134/78 H Blood Pressure Location Lt brachial Position Sitting Respiration 16 Pulse 73 Pulse Source Monitor Intake Visit Reasons: 1 Y FU [employer]ice Required: No Accompanied by: Significant Other Is patient in pain?: No Allergies No Known Allergies Allergy (Verified 12/24/24 08:52) Medications ???Medication ???Instructions ???Recorded ???Confirmed ???Type aspirin 81 mg chewable tablet 81 mg PO DAILY@0800 07/23/1412/24 History atorvastatin 20 mg tablet 20 mg PO QHS #90 tabs 09/30/20 Rx nitroglycerin 0.4 mg sublingual 0.4 mg sublingual Q5M PRN chest 12/24/24 Rx tablet (Nitrostat) pain #90 tabs omeprazole 40 mg capsule,delayed 40 mg PO DAILY PRN heart burn 09/1012/24/24 History release empagliflozin 10 mg tablet 10 mg PO DAILY 11/04/23 12/24/24 H istory (Jardiance) multivitamin (Daily Multi-Vitamin 1 tab PO DAILY 11/04/23 12/24/24 History tablet) telmisartan 20 mg tablet 20 mg PO DAILY 05/04/24 12/24/24 H istory amoxicillin 500 mg tablet See Rx Instructions PO .COMPLEX #8 08/04/24 12/24/24 Rx tabs metoprolol tartrate 100 mg tablet 100 mg PO BID #60 tabs 12/24/24 0 12/24/24 Rx Have you fallen in the past year?: Yes [facility] Medical History Aortic stenosis Cardiomyopathy Abnormal echocardiogram findings without diagnosis Nonrheumatic aortic (valve) stenosis ( 09/20/21) Pure hypercholesterolemia Essential hypertension Aortic root dilatation Chest pain Family history of CVA Family history of hypertension Abnormal electrocardiogram Angina pectoris Undiagnosed cardiac murmurs Bicuspid aortic valve Other longterm (current) drug therapy Surgical History S/P ascending aortic aneurysm repair S/P AVR (aortic valve replacement) and aortoplasty History of surgical biopsy ( 07/2022) History of tonsillectomy and adenoidectomy History of bursectomy History of shoulder surgery History of cataract surgery Family History Father CVA (cerebral vascular accident) Hypertension Skin cancer Mother Hypertension Breast cancer Skin cancer Brother Hypertension Sister Hypertension Other Family history of CVA Family history of hypertension Social History household members: spouse current occu (more content not included)... [facility] PT D/C Summary (1)on 025 PT D/C Summary (1) [facility] [address] [place] [address] / REHABILITATION SERVICES DISCHARGE SUMMARY MR#: [id number] Acct: [id number] Name: MARTIN HENSON Rep #: [id number] : 1955 69 From: Zane Alvarado PT, Doug. MD Rajan, OCS Referring Dr.: ALEXANDRA Mathews Status: REG R CR Insurance: [facility] SEL[employer] PAY INSURANCE Discharge Summary D/C summary: It has been my pleasure to treat MARTIN HENSON referred by ALEXANDRA Mathew, with the diagnosis of PAIN IN RIGHT SHOULDER for a total of 25 visit(s). Discharge Date: Please see the following information for a summary of their discharge status. Subjective Subjective: Doing well ready for d/c Pain Right: Pain Intensity (Out of 10): 0 Overall Improvement % Improvement: 80 Objective Objective/Function: POSTURE: mild forward posture NEURO: denies paresthesia/tingling AROM: shoulder flexion 170 degrees ,170 abduction ,ER 90 degrees ,IR L5 PALAPTION: unremarkable MMT: ( peak force) infraspinatus 8.4 ,supraspinatus 11.8,deltoid 6.8 CAPSULAR RESTRICTION: mild tight Goals Goal 1:: Patient to be I with shoulder ex's Goal Progress: Goal Met Goal 2:: Patient to improve peak force RTC /deptoid by 5- strength to improve function and OH activities Goal Progress: Progressing Goal 3:: Patient to improve AROM to reach in cupboard to improve ADLS Goal Progress: Goal Met Goal 4:: Patient to improve quick dash by 5 points to improve QOL and function ( NEW GOAL) Goal Progress: Goal Met Goal 5:: Patient to demonstrate 40-50% improvement with less pain with OH activities with right UE (NEW GOAL) Goal Progress: Goal Met Plan Plan: D/C D/C Information d/c sentence: If there are questions or concerns regarding this patient's physical therapy, please feel free to call me at [phone]. Thank you for the referral of this patient. Sincerely, Zane Alvarado, PT, Cert MDT, OCS Balance/Gait/Functiona l tests Balance/Special Test Scores Quick DASH Score: 9.0900 Improvement % Improvement: 80 12/10/24 0927 CC: ALEXANDRA Mathews JLA Signed [facility] Re-Evaluation - PT (1)on Re-Evaluation - PT (1) [facility] [address] [place] [address] / REEVALUATION / MEDICARE RECERTIFICATION PHYSICAL THERAPY MR#: [id number] Acct: [id number] Name: MARTIN HENSON Rep #: [id number] : 1955 69 From: Zane Alvarado PT, Cert. MD Rajan, OCS Referring Dr.: ALEXANDRA Mathews Status:REG RCR Insurance: [facility] Re-Evaluation Intro: ALEXANDRA Mathew, It has been my pleasure to treat MARTIN HENSON over the last 17 visits for PAIN IN RIGHT SHOULDER. Please see the progress note below for an update on the physical therapy plan of care! Subjective Subjective: Patient reports he can tell he is getting stronger. Objective Objective/Function: * Patient will benefit from skilled PT to increase strength of RTC and deltoid ,patient has made progress with increase ROM thus goals are appropriate and adjusted * POSTURE: mild forward posture NEURO: denies paresthesia/tingling AROM: shoulder flexion 170 degrees ,170 abduction ,ER 80 degrees ,IR L1 PALAPTION: unremarkable MMT: ( peak force) infraspinatus 4.7 ,supraspinatus 9,8,deltoid 4.9 CAPSULAR RESTRICTION: mild tight Plan Plan Plan: PATIENT APPEARS TO HAVE RTC TEAR PT INTERVENTION'S GRADED RTC STRENGTHENING ,ISOMETRICS ,POSTURAL EX'S ,SCAPULAR STRENGTHENING ,ACCESSORY STRENGTHENING SHOULDER AND MODALITIES NEEDED Balance/Gait/Functiona l tests Balance/Special Test Scores Quick DASH Score: 29.5450 Goals Goals Goal 1:: Patient to be I with shoulder ex's Goal Time Frame: 4-6 Weeks Goal Progress: Progressing Goal 2:: Patient to improve peak force RTC /deptoid by 5- strength to improve function and OH activities Goal Time Frame: 4-6 Weeks Goal Progress: Progressing Goal 3:: Patient to improve AROM to reach in cupboard to improve ADLS Goal Time Frame: 4-6 Weeks Goal Progress: Goal Met Goal 4:: Patient to improve quick dash by 5 points to improve QOL and function ( NEW GOAL) Goal Time Frame: 4-6 Weeks Goal Progress: Progressing Goal 5:: Patient to demonstrate 40-50% improvement with less pain with OH activities with right UE (NEW GOAL) Goal Time Frame: 4-6 Weeks Goal Progress: Progressing Anticipated Interventions Anticipated Interventions Patient/Client Instruction: Educate patient on: Condition and Plan of Care For the Purpose of:: To decrease pain, To increase ROM, To improve muscle performance and motor function, To improve ability to perform ADL's, To increase tolerance to activity/condition/pos ition, To improve ability of physical actions for home/community/work/le isure, To improve health of tissue, To decrease soft tissue restriction, To increase flexibility/ROM and To improve tolerance to ADL's Therapeutic Exercise to Include: Strength training, Postural training, Active ROM and Scapular Strength/Stabilization Comment: RTC For the Purpose of:: To decrease pain, To increase ROM, To improve muscle performance and motor function, To improve ability to perform ADL's, To improve ability of physical actions for home/community/work/le isure, To improve health of tissue, To decrease soft tissue restriction, To increase flexibility/ROM and To improve tolerance to ADL's TENS: Yes IF ES: Yes Cryotherapy (ice pack, ice massage): Yes Thermo therapy (hot pack): Yes Ultrasound (thermal/non thermal): Yes For the Purpose of:: To decrease pain, To increase ROM, To improve health of tissue and To decrease soft tissue restriction Re-Evaluation Ending Re-evaluation ending: Please do not hesitate to contact me at [phone] by phone or if you have questions or concerns regarding this new plan of care! Sincerely, Zane Alvarado PT, Cert MDT, [facility] 11/12/24 0926 CC: ALEXANDRA Mathews ALEN Signed For Medicare only, by signing this I certify the plan of care. Physicians Signature Date Normal [facility] Re-Evaluation - PT (1)on Re-Evaluation - PT (1) [facility] [address] [place] [address] / REEVALUATION / MEDICARE RECERTIFICATION PHYSICAL THERAPY MR#: [id number] Acct: [id number] Name: MARTIN HENSON Rep #: [id number] : 1955 69 From: Zane Alvarado PT, Cert. MD Rajan, OCS Referring Dr.: ALEXANDRA Mathews Status:REG RCR Insurance: [facility] Re-Evaluation Intro: ALEXANDRA Mahtew, It has been my pleasure to treat MARTIN HENSON over the last 9 visits for PAIN IN RIGHT SHOULDER. Please see the progress note below for an update on the physical therapy plan of care! Subjective Subjective: Doing better Objective Objective/Function: * Patient will benefit from skilled PT to increase strength of RTC and deltoid ,patient has made progress with increase ROM thus goals are appropriate and adjusted * POSTURE: mild forward posture NEURO: denies paresthesia/tingling OBSERVATION: intact AROM: shoulder flexion 170 degrees with substitution ,160 abduction with substitution ,ER 80 degrees ,IR L1 PALAPTION: unremarkable MMT: ( peak force) infraspinatus 4.7 ,supraspinatus 9,8,deltoid 4.9 CAPSULAR RESTRICTION: mild tight Plan Plan Plan: PATIENT APPEARS TO HAVE RTC TEAR PT INTERVENTION'S GRADED RTC STRENGTHENING ,ISOMETRICS ,POSTURAL EX'S ,SCAPULAR STRENGTHENING ,ACCESSORY STRENGTHENING SHOULDER AND MODALITIES NEEDED Balance/Gait/Functiona l tests Balance/Special Test Scores Quick DASH Score: 35.0000 Goals Goals Goal 1:: Patient to be I with shoulder ex's Goal Time Frame: 4-6 Weeks Goal 2:: Patient to improve peak force RTC /deptoid by 5-10# strength to improve function and OH activities Goal Time Frame: 4-6 Weeks Goal Progress: Progressing Goal 3:: Patient to improve AROM to reach in cupboard to improve ADLS Goal Time Frame: 4-6 Weeks Goal Progress: Goal Met Goal 4:: Patient to improve quick dash by 5 points to improve QOL and function Goal Time Frame: 4-6 Weeks Goal Progress: Progressing Goal 5:: Patient to demonstrate 40-50% improvement with less pain with OH activities with right UIE Goal Progress: Progressing Anticipated Interventions Anticipated Interventions Patient/Client Instruction: Educate patient on: Condition and Plan of Care For the Purpose of:: To decrease pain, To increase ROM, To improve muscle performance and motor function, To improve ability to perform ADL's, To increase tolerance to activity/condition/pos ition, To improve ability of physical actions for home/community/work/le isure, To improve health of tissue, To decrease soft tissue restriction, To increase flexibility/ROM and To improve tolerance to ADL's Therapeutic Exercise to Include: Strength training, Postural training, Active ROM and Scapular Strength/Stabilization Comment: RTC For the Purpose of:: To decrease pain, To increase ROM, To improve muscle performance and motor function, To improve ability to perform ADL's, To improve ability of physical actions for home/community/work/le isure, To improve health of tissue, To decrease soft tissue restriction, To increase flexibility/ROM and To improve tolerance to ADL's TENS: Yes IF ES: Yes Cryotherapy (ice pack, ice massage): Yes Thermo therapy (hot pack): Yes Ultrasound (thermal/non thermal): Yes For the Purpose of:: To decrease pain, To increase ROM, To improve health of tissue and To decrease soft tissue restriction Re-Evaluation Ending Re-evaluation ending: Please do not hesitate to contact me at [phone] by phone or if you have questions or concerns regarding this new plan of care! Sincerely, Zane Alvarado PT, Cert MDT, OCS 10/15/24 0947 CC: ALEXANDRA Mathews ALEN Signed For Medicare only, by signing this I certify the plan of care. Physicians Signature Date Normal [facility] Inital Evaluation (1) - PTon 09-16-2024 Inital Evaluation (1) - PT [facility] [address] [place] [address] / REHABILITATION SERVICES INITIAL EVALUATION MR#: [id number] Acct: [id number] Name: MARTIN HENSON Rep #: [id number] : 1955 68 From: Zane Alvarado PT, Doug. MD Rajan, OCS Referring Dr.: ALEXANDRA Mathew Status: REG R CR Insurance: [facility] SELF PAY INSURANCE Patient's Visit Information Visit Information Visit Information: MARTIN HENSON is a 68 year old M referred to Physical Therapy by ALEXANDRA Mathew with a diagnosis of PAIN IN RIGHT SHOULDER. Date of Evaluation: 09/16/24 Physical Therapist: Zane Alvarado PT, Cert HESHAM, OCS Visit Plan Frequency: 2x /Week Duration: 4 Weeks Plan: PATIENT APPEARS TO HAVE RTC TEAR PT INTERVENTION'S GRADED RTC STRENGTHENING ,ISOMETRICS ,POSTURAL EX'S ,SCAPULAR STRENGTHENING ,ACCESSORY STRENGTHENING SHOULDER AND MODALITIES NEEDED Subjective Subjective: This 68 y/o male presents to physical therapy with right shoulder pain. Patient fell outside landed on right shoulder immediate pain. Seen Dr x-rays - for fracture. Referred to PT and prednisone pack. Patient had edema/ecchymosis right shoulder chest and shoulder. Patient has h/o RTC repair 2006. Patient pain located raising arm global. Aggravating factors reaching OH ,lifting affects ADLS and housework task . Alleviating factors rest. Patient denies paresthesia/tingling-. Patient pain affects function and housework tasks. Patient sleeps good. Patient goals to improve function and strength right arm and avoid surgery. 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 Pain Right: Pain Intensity (Out of 10): 8 Pain Intensity Range: 10 Comment: OH Objective Objective: POSTURE: mild forward posture NEURO: denies paresthesia/tingling OBSERVATION: ecchymosis right chest region AROM: shoulder flexion 140 degrees with substitution ,140 abduction with substitution ,ER 80 degrees ,IR L1 PALAPTION: unremarkable MMT: ( peak force) infraspinatus 4.2 ,supraspinatus 4.9 ,deltoid 0 CAPSULAR RESTRICTION: mild tight Special Tests R Shoulder External Rotation Lag Test - RC Tear: Positive R Shoulder Drop Sign - IS Test: Negative R Shoulder Empty Can - SS: Positive R Shoulder Belly Press - SupScap: Negative R Shoulder Neer - Impingement: Positive R Shoulder Goldstein Chao - Impingement: Positive R Shoulder Shrug Sign - OA/Adhesive Capsulitis: Negative Balance/Special Test Scores Quick DASH Score: 45.4525 Goals Goal 1:: Patient to be I with shoulder ex's Goal Time Frame: 4-6 Weeks Goal 2:: Patient to improve peak force RTC /deptoid by 5-10# strength to improve function and OH activities Goal Time Frame: 4-6 Weeks Goal 3:: Patient to improve AROM to reach in cupboard to improve ADLS Goal Time Frame: 4-6 Weeks Goal 4:: Patient to improve quick dash by 5 points to improve QOL and function Goal Time Frame: 4-6 Weeks Goal 5:: Patient to demonstrate 40-50% improvement with less pain with OH activities with right UIE Rehabilitation Potential Physical Therapy Diagnosis: Patient has possible RTC tear with weakness and + test for tear with decrease ROM impairs ADLS and OH activities along with h/o RTC repair 2007 thus benefit from skilled PT Rehabilitation Potential: Good Anticipated Interventions Patient/Client Instruction: Educate patient on: Condition and Plan of Care For the Purpose of:: To decrease pain, To increase ROM, To improve muscle performance and motor function, To improve ability to perform ADL's, To increase tolerance to activity/condition/pos ition, To improve ability of physical actions for home/community/work/le isure, To improve health of tissue, To decrease soft tissue restriction, To increase flexibility/ROM and To improve tolerance to ADL's Therapeutic Exercise to Include: Strength training, Postural training, Active ROM and Scapular Strength/Stabilization Comment: RTC For the Purpose of:: To decrease pain, To increase ROM, To improve muscle performance and motor function, To improve ability to perform ADL's, To improve ability of physical actions for home/community/work/le isure, To improve health of tissue, To decrease soft tissue restriction, To increase flexibility/ROM and To improve tolerance to ADL's TENS: Yes IF ES: Yes Cryotherapy (ice pack, ice massage): Yes Thermo therapy (hot pack): Yes Ultrasound (thermal/non thermal): Yes For the Purpose of:: To decrease pain, To increase ROM, To improve health of tissue and To decrease soft tissue restriction Text: Thank you for the opportunity to evaluate your patient. For Medicare and Medicare HMO plans, please review the plan of care and approve it. It will need to be FAXED BACK to us at [phone] for Medicare purposes. For Medicare only, by signing this I certify the plan of care. Please let me (more content not included)... Normal [facility] Shoulder min 2 Viewson 09-07 Shoulder min 2 Views [facility] [address] [place] [address] Shoulder min 2 Views MR#: [id number] Acct: [id number] Name: MARTIN HENSON Rep #: [id number] : 1955 M 68 From: Deepak Velarde MD PCP: ALEXANDRA Mathew Status: REG CLI Study: Shoulder min 2 Views Date of Exam: 09/07/24 Exam# [id number] Ordering Dr: Abdiel Mathews [id number] STUDY: X-RAY - RIGHT SHOULDER REASON FOR EXAM: Male, 68 years old. PAIN IN SHOULDER, HISTOERY OF FALLING TECHNIQUE: 4 view(s) of the shoulder. COMPARISON: 05/12/2006 FINDINGS: There is mild degenerative arthrosis of the glenohumeral articulation. There is degenerative arthrosis of the acromioclavicular joint without inferior osseous spur formation. Normal acromion. Healed fracture of the midshaft left clavicle. Interval placement of surgical anchors in the humeral head consistent with rotator cuff repair. The soft tissue structures are unremarkable. Normal visualized pulmonary apex. RAD/Shoulder min 2 Views IMPRESSION: Interval rotator cuff repair. Mild glenohumeral and acromioclavicular joint arthrosis. Electronically Signed: Deepak Velarde MD at 13:48 EST , CC: ALEXANDRA Mathews Box Toe Stitcher: [facility] Office Visit (MAW) MARTIN HENSON ([id number]) 1955 M Date Time Provider Department 08/19/24 10:00 AM HARRIET HOGAN KRYSTIAN During your visit today, we recorded the following information about you: Harriet Hogan Bang 08/19/2024 10:26 AM Addendum GENETIC COUNSELING CONSULTATION Martin Henson is a 68 year old male with hypertrophic cardiomyopathy referred for genetic counseling by Dr. Deena Francois. He is accompanied at his appointment by his . HISTORY OF PRESENT ILLNESS: Martin Henson is a 68 year old male with: hypertrophic obstructive cardiomyopathy (oHCM) history of on BAV and root > ascending dilation, s/p AVR (Inspiris 25) and aortoplasty of root Ascending aortoplasty incorporated into aortotomy for AVR on Jul 29, 2023. By Dr Navarro. Martin Henson was referred to cardiovascular genetics for genetic counseling and consideration for genetic testing for hypertrophic cardiomyopathy Cardiovascular Testing: echocardiogram (03/25/24) CONCLUSIONS: - Exam indication: Limited for LV gradients - The left ventricle is normal in size. There is severe asymmetric left ventricular hypertrophy. Left ventricular systolic function is normal. EF = 65 ? 5% (visual est.) Left ventricular diastolic function was not evaluated due to Limited Echo. - The right ventricle is normal in size. Right ventricular systolic function is normal. - Inspiris prosthetic aortic valve (size #25). There is no aortic valve regurgitation. The peak gradient is 24 mmHg, the mean gradient is 12 mmHg and the dimensionless valve index is 0.53. Prior Peak/Mean gradients: 33/18mmHg. - There is a intracavitary gradient of 35 mmHg from severe LVH (clip #55). There is no obvious SANJEEV. - Exam was compared with the prior echocardiographic exam performed on 01/08/2024. Interval decrease in HR, intracavitary gradients and transaortic valve gradients. MEDICAL HISTORY: PAST MEDICAL HISTORY Diagnosis Date Aortic stenosis Bicuspid aortic valve Hemorrhoids HLD (hyperlipidemia) HTN (hypertension) Primary cardiomyopathy (HCC) SURGICAL HISTORY: PAST SURGICAL HISTORY Procedure Laterality Date ARTHROPLASTY GLENOHUMRL JT HEMIARTHROPLASTY 07/2006 Arthroplasty, shoulder: torn rotator cuff (right) COLONOSCOPY FLX DX W/COLLJ SPEC WHEN PFRMD 04/09/11 TONSILLECTOMY PRIMARY/SECONDARY Tonsillectomy XCAPSL CTRC RMVL INSJ IO LENS PROSTH W/O ECP 2006 Cataract Removal bilateral FAMILY HISTORY: A detailed, 4-generation family history was obtained, details are available on request. Significant diagnoses are listed below: FAMILY HISTORY Problem Relation Age of Onset Cancer Mother breast Arthritis Mother Hypertension Mother Heart Father atrial fib Stroke Father ? A-fib related Hypertension Sister Hypertension Brother Colon Cancer Other none Prostate Cancer Other none Diabetes Other none The remainder of the reported family history is negative for hereditary cardiovascular disease, sudden , and consanguinity. IMPRESSION: Martin Henson is a 68 year old male with: oHCM Bicuspid aortic valve with aortic valve replacement and aortoplasty (root >ascending) His family history is significant for a father with atrial fibrillation and stroke and a paternal uncle that suddenly in his 40s. The patient's personal and family history is potentially suggestive of a hereditary cardiomyopathy. According to the guidelines of multiple professional societies (AHA, ACC, HFSA, and HRS), genetic testing is recommended for patients diagnosed with cardiomyopathy, including hypertrophic cardiomyopathy (PMID: 10566292, [id number]). Recommended screening of first-degree relatives. Discussed the pros and cons of genetic testing for HCM and HCM phenocopies. A positive result would confirm a genetic diagnosis, aid in risk stratification, and allow family members to be screened definitively through genetic testing. A negative/normal result may reduce the likelihood of a strong genetic cause to your HCM, but does not rule it out and all first-degree relatives would need to be regularly evaluated by a powder mill operator for HCM. We reviewed the options for genetic testing including a cardiomyopathy/arrhyth titi panel with the option for insurance coverage, self pay or sponsored testing. The patient elected to proceed with the [facility] Cardiomyopathy [facility] Arrhythmia program which is a sponsored genetic test, this means, if the testing is not covered by insurance this program will cover the cost. However, if this genetic testing is a covered benefit through insurance it will be billed to insurance through [employer]'s typical process. If there is an out of pocket expense of greater than $100 [employer] (owned by [employer]) will make an automated call requesting patient call billing department back (more content not included)... Normal [facility] CNOVon 06-24-2024 CNOV Office Visit (CARDMN ) MARTIN HENSON ([id number]) 1955 Date Time Provider Department 06/24/24 1:30 PM EDMUND KAMARAND During your visit today, we recorded the following information about you: Pulse Blood pressure Weight Height 59/minute 132/70 109.8 kg 1.854 m Edmund Kamara MD 06/24/2024 5:46 PM [facility] [place] Osman Lin Department of Cardiovascular Medicine SECTION OF CARDIAC PACING and ELECTROPHYSIOLOGY OUTPATIENT VISIT DATE June 24, 2024 OUTPATIENT VISIT TYPE NEW PRIMARY CARE PHYSICIAN: ABDIEL MATHEWS [address] [place] [address] REFERRING PHYSICIAN: Deena Francois MD [address] [place] [address] NURSING INTAKE HISTORY: Mr. Henson is a 68 year old male who presents today for possible ICD ad treatment options. He has past medical history of on BAV and root dilation, s/p AVR (Inspiris 25) and aortoplasty of root Ascending aortoplasty incorporated into aortotomy for AVR on Jul 29, 2023. By Dr Navarro. He wore Zio Monitor 05/2024 and was not aware of any arrhythmias. He denies lightheadedness, syncope, nearsyncope, palpitations, chest pain, shortness of breath, orthopnea, PND, or edema. Tolerating medications without any adverse effects. PAST MEDICAL HISTORY Diagnosis Date Aortic stenosis Bicuspid aortic valve Hemorrhoids HLD (hyperlipidemia) HTN (hypertension) Primary cardiomyopathy (HCC) PAST SURGICAL HISTORY Procedure Laterality Date ARTHROPLASTY GLENOHUMRL JT HEMIARTHROPLASTY 07/2006 Arthroplasty, shoulder: torn rotator cuff (right) COLONOSCOPY FLX DX W/COLLJ SPEC WHEN PFRMD 04/09/11 TONSILLECTOMY PRIMARY/SECONDARY Tonsillectomy XCAPSL CTRC RMVL INSJ IO LENS PROSTH W/O ECP 2006 Cataract Removal bilateral SOCIAL HISTORY Social History Tobacco Use Smoking status: Never Smokeless tobacco: Current Types: Snuff Vaping Use Vaping status: Never Used Substance Use Topics Alcohol use: Yes Comment: very rarely Drug use: No FAMILY HISTORY Problem Relation Age of Onset Cancer Mother breast Arthritis Mother Hypertension Mother Heart Father atrial fib Stroke Father ? A-fib related Hypertension Sister Hypertension Brother Colon Cancer Other none Prostate Cancer Other none Diabetes Other none ALLERGIES: ALLERGIES No Known Allergies MEDICATIONS: Telmisartan 20 mg tablet Take 2 tablets by mouth once daily. empagliflozin (JARDIANCE) 10 mg tablet Take 1 tablet by mouth daily with breakfast. metoprolol succinate ER (TOPROL XL) 100 mg Take 2 tablets by mouth daily with breakfast AND 1 tablet daily at bedtime. omeprazole (PRILOSEC) 40 mg capsule Take 1 capsule by mouth once daily. aspirin, enteric coated (ASPIRIN, ENTERIC COATED) 81 mg EC tablet Take 1 tablet by mouth once daily. atorvastatin (LIPITOR) 20 mg tablet Take 1 tablet by mouth daily at bedtime. cetirizine (ZYRTEC) 10 mg tablet Take 1 tablet by mouth once daily as needed for cold/allergy symptoms. acetaminophen (TYLENOL) 325 mg tablet Take 2 tablets by mouth every 6 hours as needed (for mild surgical pain). MULTIVITAMIN TAB Take one(1) tablet daily. General, constitutional: Weight loss or gain- No, Fever or chills-No, Weakness-No, Trouble sleeping-No. Head, Eyes, Ears, Mouth: Headache, head injury-No, Glasses or contact lenses-No, Pain-No, Impaired vision-No, Decreased hearing-No, Ringing in ears-No, Nose bleeds-No, Dental difficulties-No, Bleeding gums-No, Dentures-No. Neck: Swelling-No, Pain-No, Stiffness-No. Respiratory: Cough-No, Spitting up blood-No, Shortness of breath-No, Wheezing or asthma-No. Musculoskeletal: Muscle or joint pain or stiffness-No, Joint swelling-No. Gastrointestinal: Difficulty swallowing-No, Heartburn-No, Change in bowel habits-No, Blood in stool, Dark black stools-No. Neurological/Psychiatr ic: Weakness, paralysis-No, Numbness-No, Tingling-No, Tremor-No, Nervousness or anxiety-No, Depressed mood-No, Memory loss-No. Skin: Rash-No, Itching-No. Hematological: Easy bruising-No, Easy bleeding-No. Endocrine: Heat or cold intolerance-No, Excessive sweating-No, Frequent urination-No, Frequent thirst-No. Eunice Nettles RN PHYSICAL EXAMINATION: BP 132/70 Pulse (!) 59 Ht 185.4 cm (6' 1) Wt 109.8 kg (242 lb) BMI 31.93 kg/m? Echo: 03/25/24 CONCLUSIONS: - Exam indication: Limited for LV gradients - The left ventricle is normal in size. There is severe asymmetric left ventricular hypertrophy. Left ventricular systolic function is normal. EF = 65 ? 5% (visual est.) Left ventricular diastolic function was not evaluated due to Limited Echo. - The right ventricle is normal in size. Right ventricular systolic function is normal. - Inspiris prosthetic aortic valve (size #25). (more content not included)... Normal [facility] ECG COMPLETEon 06-24-2024 ECG COMPLETE Ventricular Rate : 5 9 BPM Atrial Rate : 59 BPM P-R Interval : 182 ms QRS Duration : 116 ms Q-T Interval : 456 ms QTC Calculation(Bazett) : 451 ms Calculated P [place] : 62 degrees Calculated R [place] : -4 degrees Calculated T [place] : 137 degrees SINUS BRADYCARDIA POSSIBLE LEFT ATRIAL ENLARGEMENT LEFT VENTRICULAR HYPERTROPHY WITH QRS WIDENING AND REPOLARIZATION ABNORMALITY ( R in aVL , Sokolow-Salcedo ) ABNORMAL ECG Confirmed by DEENA FRANCOIS MD ([id number]) on 07/28/2024 9:47:42 PM NAME : MARTIN HENSON PID : [id number] : 1955 Gender : Male Race : ORD : [id number] Procedure Date : Jun 24 2024 13:32:57 Edit Date : Jul 28 2024 21:47:45 Diagnosis: SINUS BRADYCARDIA POSSIBLE LEFT ATRIAL ENLARGEMENT LEFT VENTRICULAR HYPERTROPHY WITH QRS WIDENING AND REPOLARIZATION ABNORMALITY ( R in aVL , Sokolow-Salcedo ) ABNORMAL ECG Confirmed by DEENA FRANCOIS MD ([id number]) on 07/28/2024 9:47:42 PM Test Reason : Location : 314 : J14 J14 Overread By : DEENA FRANCOIS MD Edited By : DEENA FRANCOIS MD Referred By : , Acquired by : MEG BISHOP [facility] Fernando 06-08-2024 CNPN Telephone (CARCMN) MARTIN HENSON ([id number]) 1955 M Date Time Provider Department 06/08/24 DEENA FRANCOIS [facility] During your visit today, we recorded the following information about you: Lester Lewis RN 06/08/2024 8:15 AM Signed Deena Francois MD [facility] Clinical Nurse Phone Pool Cc: Garima Garcia Please, let patient know that I reviewed Zio: there are some NSVT, and I would like him to see an EP within the next couple of weeks to discuss ICD. Thanks, PS: Kiarra, please, can you make sure patient is seen by EP next week? Thnaks Messaged patient Lester Lewis RN Allergies As of Date: 06/08/2024 (No Known Allergies) Date Reviewed: 03/25/2024 Reviewed by: Lester Lewis RN - Fully Assessed Prescriptions as of 06/08/2024 - Telmisartan 20 mg tablet Take 2 tablets by mouth once daily. - empagliflozin (JARDIANCE) 10 mg tablet Take 1 tablet by mouth daily with breakfast. - metoprolol succinate ER (TOPROL XL) 100 mg Take 2 tablets by mouth daily with breakfast AND 1 tablet daily at bedtime. - omeprazole (PRILOSEC) 40 mg capsule Take 1 capsule by mouth once daily. - aspirin, enteric coated (ASPIRIN, ENTERIC COATED) 81 mg EC tablet Take 1 tablet by mouth once daily. - atorvastatin (LIPITOR) 20 mg tablet Take 1 tablet by mouth daily at bedtime. - cetirizine (ZYRTEC) 10 mg tablet Take 1 tablet by mouth once daily as needed for cold/allergy symptoms. - acetaminophen (TYLENOL) 325 mg tablet Take 2 tablets by mouth every 6 hours as needed (for mild surgical pain). - MULTIVITAMIN TAB Take one(1) tablet daily. Problem List As Of Date 06/08/2024 Noted Resolved JOINT PAIN-UNSPEC [M25.50] 05/20/2006 10/03/2006 SPRAIN SHOULDER/ARM NOS [XLU7635] 05/20/2006 10/03/2006 Complete rupture of rotator cuff [M75.120] 10/03/2006 Obesity (BMI 30-39.9) [E66.9] 02/16/2011 Special screening for malignant neoplasms, colo*03/13/2011 Nonrheumatic aortic valve stenosis [I35.0] 06/25/2023 Aortic root dilatation (HCC) [I77.810] 07/24/2023 Angina pectoris (HCC) [I20.9] 07/24/2023 Discharge planning issues [Z75.8] 07/24/2023 Encounter for support and coordination of trans*07/24/2023 Aortic stenosis due to bicuspid aortic valve [Q*07/29/2023 On mechanically assisted ventilation (HCC) [Z99*07/29/2023 Hypovolemia [E86.1] 07/29/2023 AI (aortic insufficiency) [I35.1] 07/29/2023 Hypotension [I95.9] 07/29/2023 Postoperative pain [G89.18] 07/29/2023 Aphasia [R47.01] 07/30/2023 Primary hypertension [I10] 07/30/2023 Hypervolemia [E87.70] 08/01/2023 Postoperative ileus (HCC) [K91.89, K56.7] 08/02/2023 Hyperlipidemia LDL goal <70 [E78.5] 08/03/2023 Gastroesophageal reflux disease without esophag*08/03/2023 ABLA (acute blood loss anemia) [D62] 08/03/2023 Thrombocytopenia (HCC) [D69.6] 08/03/2023 Hypertrophic cardiomyopathy (HCC) [I42.2] 09/18/2023 Obesity, Class I, BMI 30-34.9 [E66.9] 09/18/2023 Encounter Status:Closed by LESTER LEWIS on 06/08/24 [facility] Fernando 05-05-2024 CNPN Telephone (CARCMN) MARTIN HENSON ([id number]) 1955 M Date Time Provider Department 05/05/24 DEENA FRANCOIS During your visit today, we recorded the following information about you: Goldie Leger 05/05/2024 8:50 AM Signed Patient called and asked that office notes and stress echo be sent sent Dr. Mathews [phone] received fax confirmation Goldie Leger May 05, 2024 8:50 AM Allergies As of Date: 05/05/2024 (No Known Allergies) Date Reviewed: 03/25/2024 Reviewed by: Lester Lewis, RN - Fully Assessed Reason for Visit: fax confirmation [Other] Prescriptions as of 05/05/2024 - Telmisartan 20 mg tablet Take 2 tablets by mouth once daily. - empagliflozin (JARDIANCE) 10 mg tablet Take 1 tablet by mouth daily with breakfast. - metoprolol succinate ER (TOPROL XL) 100 mg Take 2 tablets by mouth daily with breakfast AND 1 tablet daily at bedtime. - omeprazole (PRILOSEC) 40 mg capsule Take 1 capsule by mouth once daily. - aspirin, enteric coated (ASPIRIN, ENTERIC COATED) 81 mg EC tablet Take 1 tablet by mouth once daily. - atorvastatin (LIPITOR) 20 mg tablet Take 1 tablet by mouth daily at bedtime. - cetirizine (ZYRTEC) 10 mg tablet Take 1 tablet by mouth once daily as needed for cold/allergy symptoms. - acetaminophen (TYLENOL) 325 mg tablet Take 2 tablets by mouth every 6 hours as needed (for mild surgical pain). - MULTIVITAMIN TAB Take one(1) tablet daily. Problem List As Of Date 05/05/2024 Noted Resolved JOINT PAIN-UNSPEC [M25.50] 05/20/2006 10/03/2006 SPRAIN SHOULDER/ARM NOS [NLG8983] 05/20/2006 10/03/2006 Complete rupture of rotator cuff [M75.120] 10/03/2006 Obesity (BMI 30-39.9) [E66.9] 02/16/2011 Special screening for malignant neoplasms, colo*03/13/2011 Nonrheumatic aortic valve stenosis [I35.0] 06/25/2023 Aortic root dilatation (HCC) [I77.810] 07/24/2023 Angina pectoris (HCC) [I20.9] 07/24/2023 Discharge planning issues [Z75.8] 07/24/2023 Encounter for support and coordination of trans*07/24/2023 Aortic stenosis due to bicuspid aortic valve [Q*07/29/2023 On mechanically assisted ventilation (HCC) [Z99*07/29/2023 Hypovolemia [E86.1] 07/29/2023 AI (aortic insufficiency) [I35.1] 07/29/2023 Hypotension [I95.9] 07/29/2023 Postoperative pain [G89.18] 07/29/2023 Aphasia [R47.01] 07/30/2023 Primary hypertension [I10] 07/30/2023 Hypervolemia [E87.70] 08/01/2023 Postoperative ileus (HCC) [K91.89, K56.7] 08/02/2023 Hyperlipidemia LDL goal <70 [E78.5] 08/03/2023 Gastroesophageal reflux disease without esophag*08/03/2023 ABLA (acute blood loss anemia) [D62] 08/03/2023 Thrombocytopenia (HCC) [D69.6] 08/03/2023 Hypertrophic cardiomyopathy (HCC) [I42.2] 09/18/2023 Obesity, Class I, BMI 30-34.9 [E66.9] 09/18/2023 Encounter Status:Closed by GOLDIE LEGER on 05/05/24 [facility] Cardiology Visit Reporton Cardiology Visit Report [facility] [address] [place] [address] OFFICE VISIT Date of Service: 05/04/24 MR#: [id number] Acct: [id number] Name: MARTIN HENSON Rep #: [id number] : 1955 Provider: HERBERT Douglas Age/Sex: 68/M Location: [facility] Status: Signed [facility] History of Present Illness Details: Martin Henson is a 68 year-old white male who presents today for outpatient cardiovascular follow-up of his history of underlying bicuspid aortic valve with aortic valve stenosis and aortic root dilatation superimposed upon hyperlipidemia and hypertension. His last echocardiogram that was done in 07/2022 demonstrated an LVEF of 75%; severe concentric LVH; aortic valve with findings compatible with severe aortic valve stenosis and a mildly dilated aortic root; additional findings suggestive but not definitive for a possible diagnosis of amyloid.???He was evaluated by hematology for amyloid, all these tests were negative. Cardiac MRI was concerning for cardiac amyloid. PYP was negative. He did undergo a diagnostic heart cath on 06/10/23, this demonstrated Normal coronary arteries, Normal LV size, wall motion,and systolic function, Aortic Root dilated, Aortic Valve Stenosis- Severe, Cardiomyopathy: Hypertrophic. He was referred to Dr. Navarro, he underwent an AVR with a #25 Inspra, ascending aortoplasty on . Echocardiogram in January 2024 at [facility] demonstrated left ventricle small severe concentric LVH estimated ejection fraction 70%. Stable prosthetic aortic valve. Intracavitary gradient of 102 mmHg from severe LVH. No obvious SANJEEV. Stress echo done in April 2024 [facility]. Exercise stress echo was negative for ischemia at 7.2 METS. No regional wall motion noted. Severe asymmetric LVH. Left atrial cavity increased from 36 mm work gree at rest to 110 mmHg post exercise. He underwent a limited echo and stress echo at [facility]. He tells me there was some concern over his obstructive cardiomyopathy. They had discussed starting him on Camzyos however this has not been done yet. He has an upcoming appt in August with a genetic counselor. He has not had any worsening SOB since his surgery. He does sometimes need to stop walking up hill. 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 He does not have any chest discomfort/heaviness/t ightness. He does not have any worsening symptoms of shortness of breath. He denies any PND. He does not have any orthopnea. He does not have any symptoms of congestive heart failure. He does not have any palpitations that he is aware of. He does not have any lightheadedness or dizziness since decreasing his medications that were done by [facility]. He does not have any near-syncope or syncope. He does not have any lower extremity edema. He does not have any symptoms of claudication. 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 Is patient in pain?: No Allergies No Known Allergies Allergy (Verified 05/04/24 08:48) Medications ???Medication ???Instructions ???Recorded ???Confirmed ???Type aspirin 81 mg chewable tablet 81 mg PO DAILY@0800 07/23/14 05/04/24 History atorvastatin 20 mg tablet 20 mg PO QHS #90 tabs 09/30/20 05/04/24 Rx nitroglycerin 0.4 mg sublingual 0.4 mg sublingual Q5M PRN chest 10/03/20 05/04/24 Rx tablet (Nitrostat) pain #90 tabs omeprazole 40 mg capsule,delayed 40 mg PO DAILY PRN heart burn 10/04/21 05/04/24 History release empagliflozin 10 mg tablet 10 mg PO DAILY 11/04/23 05/04/24 History (Jardiance) multivitamin (Daily Multi-Vitamin 1 tab PO DAILY 11/04/23 05/04/24 History tablet) amoxicillin 500 mg tablet See Rx Instructions PO .COMPLEX #8 02/18/24 Rx tabs metoprolol tartrate 50 mg tablet See Rx Instructions PO BID 05/04/24 History telmisartan 20 mg tablet 20 mg PO DAILY 05/04/24 05/04/24 History Have you fallen in the past year?: No PFSH Medical History Aortic stenosis Cardiomyopathy Abnormal echocardiogram findings without diagnosis Nonrheumatic aortic (valve) stenosis ( 09/20/21) Pure hypercholesterolemia Essential hypertension Aortic root dilatation Chest pain Family history of CVA Family history of hypertension Abnormal electrocardiogram Angina pectoris Undiagnosed cardiac murmurs Bicuspid aortic valve Other longterm (current) drug therapy Surgical History S/P ascending aortic aneurysm repair S/P AVR (aortic valve replacement) and aortop (more content not included)... Normal [facility] HIGH SENSITIVITY TROPONIN To n 05-04-2024 Troponin T.cardiac High sensitivity method [Mass/Vol] 18 ng/L High <12 [facility] Comment on above: Order Comment: Sydnie arguello Type: BLOOD SPECIMENOrdering Facility: [facility] Address: [address] [place] [address] Performed By: #### 3 [id number], HSTNT ####[facility] LABCLIA [id number] [place] [address] [place] HbA1c (Bld)on 05-04-2024 Average glucose Estimated from glycated hemoglobin (Bld) [Mass/Vol] 120 mg/dL Normal [facility] Comment on above: Order Comment: Rocioi men Type: BLOOD SPECIMENOrdering Facility: [facility] Address: [address] [place] [address] Result Comment: eAG: (Estimated average glucose) is a calculated value from HgbA1c and is support representative of the average blood glucose level in the last 2-3 month period. Performed By: #### 5 [id number] ####[facility] LABCLIA [id number] [place] [address] [place] HbA1c (Bld) [Mass fraction] 5.8 % High 4.3-5.6 [facility] Comment on above: Order Comment: Sydnie arguello Type: BLOOD SPECIMENOrdering Facility: [facility] Address: [address] [place] [address] Result Comment: [place] Diabetes Association guidelines indicate that patients with HgbA1c in the range 5.7-6.4% are at increased risk for development of diabetes, and intervention by lifestyle modification may be beneficial. HgbA1c greater or equal to 6.5% is considered diagnostic of diabetes. Performed By: #### 5 5454-3 ####[facility] LABIA [id number] [address] [place] NT-proBNP [facility] 05-04 Natriuretic peptide.B prohormone N-Terminal [Mass/Vol] 286 pg/mL High <125 [facility] Comment on above: Order Comment: Sydnie arguello Type: BLOOD SPECIMENOrdering Facility: [facility] Address: [address] [place] [address] Performed By: #### 3 3762-6, HSTNT ####[facility] [id number] [address] [place] Fernando 04-30-2024 KIMBERLYN Telephone (SONNY) MARTIN HENSON ([id number]) 1955 M Date Time Provider Department 04/30/24 DEENA FRANCOIS During your visit today, we recorded the following information about you: Marita Elizondo RN 04/30/2024 1:42 PM Addendum ----- Message from Deena Francois MD sent at 04/30/2024 11:44 AM EDT ----- I called patient's cell phone but didn't talk with him (AM). Please, let patient know I have reviewed his stress echo: there is some thickness of the heart and obstruction with stress but he did great. I would like to know if he was instructed to hold his Metoprolol for the test? I think I had told him to NOT HOLD it. What did he do? I just would like to know if gradient occurred with beta-shara on or not. - Please, let him know that I would like to refer him to genetic consultation for HOCM - I have also entered orders for labs: to do now, or whenever he can. Not urgent, let's say within next 1-3 months (Trop, NT-proBNP, A1c). I saw he just had labs 2 days ago. - I had ordered a Holter monitor in March. Still not done. Please, help him being scheduled for these 3 things. Ericka Shaffer Called patient. He DID take metoprolol prior to his stress echo. I let him know Dr. Levin referred him to genetic consultation for HOCM. I also let him know to please complete labs and holter monitor. He stated it will be difficult to come to [place] for holter monitor pickup/placement, so I let him know I will ask Dr. Levin about a Zio Patch, which can be mailed to him. I will follow up with Dr. Levin. Marita Elizondo RN Allergies As of Date: 04/30/2024 (No Known Allergies) Date Reviewed: 03/25/2024 Reviewed by: Lester Lewis RN - Fully Assessed Prescriptions as of 04/30/2024 - Telmisartan 20 mg tablet Take 2 tablets by mouth once daily. - empagliflozin (JARDIANCE) 10 mg tablet Take 1 tablet by mouth daily with breakfast. - metoprolol succinate ER (TOPROL XL) 100 mg Take 2 tablets by mouth daily with breakfast AND 1 tablet daily at bedtime. - omeprazole (PRILOSEC) 40 mg capsule Take 1 capsule by mouth once daily. - aspirin, enteric coated (ASPIRIN, ENTERIC COATED) 81 mg EC tablet Take 1 tablet by mouth once daily. - atorvastatin (LIPITOR) 20 mg tablet Take 1 tablet by mouth daily at bedtime. - cetirizine (ZYRTEC) 10 mg tablet Take 1 tablet by mouth once daily as needed for cold/allergy symptoms. - acetaminophen (TYLENOL) 325 mg tablet Take 2 tablets by mouth every 6 hours as needed (for mild surgical pain). - MULTIVITAMIN TAB Take one(1) tablet daily. Problem List As Of Date 04/30/2024 Noted Resolved JOINT PAIN-UNSPEC [M25.50] 05/20/2006 10/03/2006 SPRAIN SHOULDER/ARM NOS [YWM2667] 05/20/2006 10/03/2006 Complete rupture of rotator cuff [M75.120] 10/03/2006 Obesity (BMI 30-39.9) [E66.9] 02/16/2011 Special screening for malignant neoplasms, colo*03/13/2011 Nonrheumatic aortic valve stenosis [I35.0] 06/25/2023 Aortic root dilatation (HCC) [I77.810] 07/24/2023 Angina pectoris (HCC) [I20.9] 07/24/2023 Discharge planning issues [Z75.8] 07/24/2023 Encounter for support and coordination of trans*07/24/2023 Aortic stenosis due to bicuspid aortic valve [Q*07/29/2023 On mechanically assisted ventilation (HCC) [Z99*07/29/2023 Hypovolemia [E86.1] 07/29/2023 AI (aortic insufficiency) [I35.1] 07/29/2023 Hypotension [I95.9] 07/29/2023 Postoperative pain [G89.18] 07/29/2023 Aphasia [R47.01] 07/30/2023 Primary hypertension [I10] 07/30/2023 Hypervolemia [E87.70] 08/01/2023 Postoperative ileus (HCC) [K91.89, K56.7] 08/02/2023 Hyperlipidemia LDL goal <70 [E78.5] 08/03/2023 Gastroesophageal reflux disease without esophag*08/03/2023 ABLA (acute blood loss anemia) [D62] 08/03/2023 Thrombocytopenia (HCC) [D69.6] 08/03/2023 Hypertrophic cardiomyopathy (HCC) [I42.2] 09/18/2023 Obesity, Class I, BMI 30-34.9 [E66.9] 09/18/2023 Encounter Status:Closed by MARITA ELIZONDO on 04/30/24 Normal [facility] CBC W/Diff, Automatedon 08-2 Absolute Lymph 1.78 X10 3/uL Normal 0.83-4.51 [facility] Comment on above: Performed By: #### L 100.0100, L500.4050, L501.9910, L500.4100, L506.1000 #### [facility] [address] [place], [address] Absolute Neut 3.8 X10 3/uL Normal 2.0-7.7 [facility] Comment on above: Performed By: #### L 100.0100, L500.4050, L501.9910, L500.4100, L506.1000 #### [facility] [address] [place], [address] Basophils/100 WBC (Bld) 1.0 % Normal 0-1 [facility] Comment on above: Performed By: #### L 100.0100, L500.4050, L501.9910, L500.4100, L506.1000 #### [facility] [address] [place], [address] Eosinophils/100 WBC (Bld) 4.8 % Normal 0-5 [facility] Comment on above: Performed By: #### L 100.0100, L500.4050, L501.9910, L500.4100, L506.1000 #### [facility] [address] [place], [address] Erythrocyte distribution width (RBC) [Ratio] 12.6 % Normal 11.6-14.6 [facility] Comment on above: Performed By: #### L 100.0100, L500.4050, L501.9910, L500.4100, L506.1000 #### [facility] [address] [place], [address] Hematocrit (Bld) [Volume fraction] 49.7 % Normal 40-54 [facility] Comment on above: Performed By: #### L 100.0100, L500.4050, L501.9910, L500.4100, L506.1000 #### [facility] [address] [place], [address] Hemoglobin (Bld) [Mass/Vol] 16.4 g/dL Normal 13.0-16.5 [facility] Comment on above: Performed By: #### L 100.0100, L500.4050, L501.9910, L500.4100, L506.1000 #### [facility] [address] [place], [address] IG% 0.300 Normal 0.0-0.9 [facility] Comment on above: Result Comment: IG% - Immature Granulocytes (promyelocytes, myelocytes and metamyelocytes) > 1% indicates that a LEFT SHIFT is Present. Performed By: #### L 100.0100, L500.4050, L501.9910, L500.4100, L506.1000 #### [facility] [address] [place], [address] Lymphocytes/100 WBC (Bld) 26.6 % Normal 19-41 [facility] Comment on above: Performed By: #### L 100.0100, L500.4050, L501.9910, L500.4100, L506.1000 #### [facility] [address] [place], [address] MCH (RBC) [Entitic mass] 30.1 pg Normal 27.0-32.0 [facility] Comment on above: Performed By: #### L 100.0100, L500.4050, L501.9910, L500.4100, L506.1000 #### [facility] [address] [place], [address] MCHC (RBC) [Mass/Vol] 33.0 g/dL Normal 32-36 [facility] Comment on above: Performed By: #### L 100.0100, L500.4050, L501.9910, L500.4100, L506.1000 #### [facility] [address] [place], [address] MCV (RBC) [Entitic vol] 91.2 fL Normal 80-94 [facility] Comment on above: Performed By: #### L 100.0100, L500.4050, L501.9910, L500.4100, L506.1000 #### [facility] [address] [place], [address] Monocytes/100 WBC (Bld) 9.9 % Normal 0-10 [facility] Comment on above: Performed By: #### L 100.0100, L500.4050, L501.9910, L500.4100, L506.1000 #### [facility] [address] [place], [address] Neutrophils/100 WBC (Bld) 57.4 % Normal 47-70 [facility] Comment on above: Performed By: #### L 100.0100, L500.4050, L501.9910, L500.4100, L506.1000 #### [facility] [address] [place], [address] Nucleated RBC (Bld) [#/Vol] 0 10*3/uL Normal 0-5 [facility] Comment on above: Performed By: #### L 100.0100, L500.4050, L501.9910, L500.4100, L506.1000 #### [facility] [address] [place], [address] Platelet mean volume (Bld) [Entitic vol] 10.4 fL Normal 6.2-12.0 [facility] Comment on above: Performed By: #### L 100.0100, L500.4050, L501.9910, L500.4100, L506.1000 #### [facility] [address] [place], [address] Platelets (Bld) [#/Vol] 142 10*3/uL Low 150-450 [facility] Comment on above: Performed By: #### L 100.0100, L500.4050, L501.9910, L500.4100, L506.1000 #### [facility] [address] [place], [address] RBC (Bld) [#/Vol] 5.45 10*6/uL Normal 4.6-6.2 [facility] Comment on above: Performed By: #### L 100.0100, L500.4050, L501.9910, L500.4100, L506.1000 #### [facility] [address] [place], [address] RDW SD 42.1 fl Normal 35.1-43.9 [facility] Comment on above: Performed By: #### L 100.0100, L500.4050, L501.9910, L500.4100, L506.1000 #### [facility] [address] [place], [address] WBC (Bld) [#/Vol] 6.7 10*3/uL Normal 4.4-11.0 [facility] Comment on above: Performed By: #### L 100.0100, L500.4050, L501.9910, L500.4100, L506.1000 #### [facility] [address] [place], [address] Comprehensive Metabolic [facility] 04-29-2024 Albumin [Mass/Vol] 3.9 g/dL Normal 3.2-5.0 [facility] Comment on above: Performed By: #### L 100.0100, L500.4050, L501.9910, L500.4100, L506.1000 #### [facility] [address] [place], [address] Albumin/Globulin [Mass ratio] 1.2 {ratio} Normal 0.9-2.4 [facility] Comment on above: Performed By: #### L 100.0100, L500.4050, L501.9910, L500.4100, L506.1000 #### [facility] [address] [place], [address] ALK P 87 U/L Normal 45-117 [facility] Comment on above: Performed By: #### L 100.0100, L500.4050, L501.9910, L500.4100, L506.1000 #### [facility] [address] [place], [address] ALT [Catalytic activity/Vol] 53 U/L Normal 16-61 [facility] Comment on above: Performed By: #### L 100.0100, L500.4050, L501.9910, L500.4100, L506.1000 #### [facility] [address] [place], [address] AST [Catalytic activity/Vol] 26 U/L Normal 15-37 [facility] Comment on above: Performed By: #### L 100.0100, L500.4050, L501.9910, L500.4100, L506.1000 #### [facility] [address] [place], [address] Bilirubin [Mass/Vol] 0.80 mg/dL Normal 0.20-1.00 [facility] Comment on above: Result Comment: For patients on eltrombopag therapy, use of Dimension [place] TBIL is not recommended. Performed By: #### L 100.0100, L500.4050, L501.9910, L500.4100, L506.1000 #### [facility] [address] [place], [address] BUN/CRE 16.7 RATIO Normal 10-20 [facility] Comment on above: Performed By: #### L 100.0100, L500.4050, L501.9910, L500.4100, L506.1000 #### [facility] [address] [place], [address] CA,Total 9.3 mg/dL Normal 8.5-10.1 [facility] Comment on above: Performed By: #### L 100.0100, L500.4050, L501.9910, L500.4100, L506.1000 #### [facility] [address] [place], [address] Chloride [Moles/Vol] 106 mmol/L Normal 98-107 [facility] Comment on above: Performed By: #### L 100.0100, L500.4050, L501.9910, L500.4100, L506.1000 #### [facility] [address] [place], [address] CO2 [Moles/Vol] 29.0 mmol/L Normal 21.0-32.0 [facility] Comment on above: Performed By: #### L 100.0100, L500.4050, L501.9910, L500.4100, L506.1000 #### [facility] [address] [place], [address] Creatinine [Mass/Vol] 1.14 mg/dL Normal 0.70-1.30 [facility] Comment on above: Result Comment: The validity of the calculated GFR GFRAA in patients over 70 years has not been determined. Clinical correlation is essential. Performed By: #### L 100.0100, L500.4050, L501.9910, L500.4100, L506.1000 #### [facility] [address] [place], [address] EST GFR - AA 82 mL/min Normal >60 [facility] Comment on above: Result Comment: Afri can [place]ian GFR Calc Performed By: #### L 100.0100, L500.4050, L501.9910, L500.4100, L506.1000 #### [facility] [address] [place], [address] GAP 3 Low 5-15 [facility] Comment on above: Performed By: #### L 100.0100, L500.4050, L501.9910, L500.4100, L506.1000 #### [facility] [address] [place], [address] GFR/1.73 sq M.predicted among non-blacks MDRD (S/P/Bld) [Vol rate/Area] 68 mL/min/{1.73_m2} Normal >60 [facility] Comment on above: Result Comment: Non- GFR Calc Performed By: #### L 100.0100, L500.4050, L501.9910, L500.4100, L506.1000 #### [facility] [address] [place], [address] Globulin (S) [Mass/Vol] 3.3 g/dL Normal 2.2-4.2 [facility] Comment on above: Performed By: #### L 100.0100, L500.4050, L501.9910, L500.4100, L506.1000 #### [facility] [address] [place], [address] Glucose [Mass/Vol] 116 mg/dL High 74-106 [facility] Comment on above: Result Comment: Fast ing Glucose result from 100 to 125 mg/dL suggests IMPAIRED HOMEOSTASIS per A.D.A. criteria. Performed By: #### L 100.0100, L500.4050, L501.9910, L500.4100, L506.1000 #### [facility] [address] [place], [address] Potassium [Moles/Vol] 5.1 mmol/L Normal 3.5-5.1 [facility] Comment on above: Performed By: #### L 100.0100, L500.4050, L501.9910, L500.4100, L506.1000 #### [facility] [address] [place], [address] Sodium [Moles/Vol] 138 mmol/L Normal 136-145 [facility] Comment on above: Performed By: #### L 100.0100, L500.4050, L501.9910, L500.4100, L506.1000 #### [facility] [address] [place], [address] T PROT 7.2 g/dL Normal 6.4-8.2 [facility] Comment on above: Performed By: #### L 100.0100, L500.4050, L501.9910, L500.4100, L506.1000 #### [facility] [address] [place], [address] Urea nitrogen [Mass/Vol] 19 mg/dL High 7-18 [facility] Comment on above: Performed By: #### L 100.0100, L500.4050, L501.9910, L500.4100, L506.1000 #### [facility] [address] [place], [address] Lipid Profileon 04-29-2024 Cholesterol [Mass/Vol] 125 mg/dL Normal 200 [facility] Comment on above: Result Comment: <200 mg/dL Desirable 200-240 mg/dL Borderline >240 mg/dL High Risk Performed By: #### L 100.0100, L500.4050, L501.9910, L500.4100, L506.1000 #### [facility] [address] [place], [address] Cholesterol in HDL [Mass/Vol] 31 mg/dL Low [facility] Comment on above: Result Comment: The drugs N-Acetylcysteine and Metamizole may falsely depress this assay. Reference Range HDL <40 mg/dL Low HDL Cholesterol HDL >or= 60 mg/dL High HDL Cholesterol Performed By: #### L 100.0100, L500.4050, L501.9910, L500.4100, L506.1000 #### [facility] [address] [place], [address] Cholesterol in LDL [Mass/Vol] 66 mg/dL Normal 0-130 [facility] Comment on above: Performed By: #### L 100.0100, L500.4050, L501.9910, L500.4100, L506.1000 #### [facility] [address] [place], [address] Cholesterol in VLDL [Mass/Vol] 28 mg/dL Normal 5-40 [facility] Comment on above: Performed By: #### L 100.0100, L500.4050, L501.9910, L500.4100, L506.1000 #### [facility] [address] [place], [address] Triglyceride [Mass/Vol] 142 mg/dL Normal [facility] Comment on above: Result Comment: The drugs N-Acetylcysteine and Metamizole may falsely depress this assay. Serum Triglycerides Reference Interval Normal <150 mg/dL Borderline high 150 - 199 mg/dL High 200 - 499 mg/dL Very High > or = 500 mg/dL Performed By: #### L 100.0100, L500.4050, L501.9910, L500.4100, L506.1000 #### [facility] [address] [place], [address] PSA,Total - Annual Screenon 04-29-2024 PSA,TOT SCREEN 1.53 ng/mL Normal 0.00-4.00 [facility] Comment on above: Result Comment: This test was performed using the TPSA assay method for the [employer]ingu[employer] chemistry system. Values obtained with different assay methods cannot be used interchangably. When changing PSA assays in the course of monitoring a patient, additional sequential testing should be carried out to confirm baseline values. Performed By: #### L 100.0100, L500.4050, L501.9910, L500.4100, L506.1000 ####[facility] [id number] [facility] [id number] Vitamin D,25 Hydroxyon 04-29 Vitamin D 25-OH 62.1 ng/mL Normal [facility] Comment on above: Result Comment: Megha min D 25(OH) Status Range Deficiency <20 ng/mL (50nmol/L) Insufficiency 20 - 30 ng/mL (50 - 75 nmol/L) Sufficiency 30 - 100 ng/mL (75 - 250 nmol/L) Toxicity >100 ng/mL (>250 nmol/L) Performed By: #### L 100.0100, L500.4050, L501.9910, L500.4100, L506.1000 #### [facility] [address] [facility] [place], [place], [id number] CREATININE BLDon 04-28-2024 Creatinine [Mass/Vol] 1.01 mg/dL Normal 0.73-1.22 [facility] Comment on above: Order Comment: Speci men Type: BLOOD SPECIMENOrdering Facility: [facility] Address: [address] [place] [address] Performed By: #### C RET1 ####[facility] [id number] [place] [address] [place] Creatinine and Glomerular filtration rate.predicted panel (S/P/Bld) 81 mL/min/1.73m??? Normal >=60 [facility] Comment on above: Order Comment: Speci men Type: BLOOD SPECIMENOrdering Facility: [facility] Address: [address] [place] [id number] Result Comment: Suzi mated Glomerular Filtration Rate (eGFR) is calculated using the 2020 CKD-EPI creatinine equation. This equation utilizes serum creatinine, sex, and age as parameters. The creatinine assay has traceable calibration to isotope dilution-mass spectrometry. Refer to KDIGO guidelines for clinical interpretation. In patients with unstable renal function, e.g. those with acute kidney injury, the eGFR may not accurately reflect actual GFR. Performed By: #### C RET1 ####[facility] [id number] [address] OF [facility] STRESS ECHO TREADMILLon 08- Stress Shot Examiner Report: Stress Echo [facility] Date of service: 04/28/2024 12:12:51 PM Supervising physician: Nnamdi Adam MD PATIENT: Name: MR. MARTIN HENSON Age: 68 years Gender: M The supervising physician was in the department and immediately available. Final ------ Echocardiography Report: Stress [facility] Date of service: 04/28/2024 12:12:51 PM Ordering physician: DEENA FRANCOIS Indication: Hypertrophic obstructive cardiomyopathy Technologist: Alexia Armando [facility] Interpreting physician: John Austin MD PATIENT: Name: MR. MARTIN HENSON : 1955 Age: 68 years Gender: M History of cardiomyopathy. Previous cardiovascular interventions: Aortic valve replacement (2022) : Aortoplasty of root 07/2023 Ascending aorta repair (2022) Height: 185.42 cm BSA: 2.35 m Weight: 107.05 kg BMI: 31.1 kg/m Heart rate 59 bpm Blood pressure 131/88 mmHg Spectral Doppler was utilized to determine the flow velocities and pressure gradients reported in this exam. Ejection Fraction not reported due to limited echo interrogation. FINDINGS: LEFT VENTRICLE There is severe asymmetric left ventricular hypertrophy. Wall Motion: Rest: All scored segments are normal. Stress: The mid and distal anterior wall, apical lateral segment, and mid anterolateral segment are hyperkinetic. All remaining scored segments are normal. STRESS ECHO Peak HR 133 bpm. (88 % MPHR) Peak BP 168 mmHg/84 mmHg. There is left ventricular cavity obliteration with stress. CONCLUSIONS: - Exam indication: Hypertrophic obstructive cardiomyopathy - The exercise stress echo was negative for ischemia at 88 % of MPHR (7.2 METS). No regional wall motion abnormality seen at heart rate achieved. - There is severe asymmetric left ventricular hypertrophy. - LV cavity gradient increased from 36 mmHg at rest (at 60 bpm) to 110 mmHg post exercise at a heart rate of 111 bpm. - Prior CC echocardiographic exam was performed on 03/25/2024. Final ------ Stress ECG Report: Stress Echo [facility] Date of service: 04/28/2024 12:12:51 PM Ordering physician: [facility] medical claims specialist: Rozina Holly Stock Plan Administrator: Marita Rodriguez Interpreting physician: John Austin MD Patient name: MR. MARTIN HENSON Age: 68 years Gender: M History of cardiomyopathy. Height: 185.42 cm BSA: 2.35 m Weight: 107.05 kg BMI: 31.1 kg/m Indication: Encounter for screening for cardiovascular disorders Stress ECG Conclusion: Conclusion: Non-diagnostic due to inadequate HR response (B-shara) and T wave inversion Stress ECG Summary: The patient's resting heart rate was 59 bpm and blood pressure was 131/88 mmHg. The patient exercised according to the Timoteo protocol. The estimated end-exercise MET level achieved using the FRIEND equation was 7.2, which is within the 25th to 50th percentile for age and sex. The estimated end-exercise MET level achieved using the previous ACSM equation was 8.6. The test was terminated due to shortness of breath and leg fatigue and the total exercise time was 7 minutes and 30 seconds. Other symptoms during the test included SOB and leg fatigue. The maximum heart rate was 133 bpm, which is 88% of the predicted heart rate for age. Peak blood pressure was 168/84 mmHg. The double product achieved was [address]. Previous cardiovascular interventions: Aortic valve replacement (2022) : Aortoplasty of root 07/2023 Ascending aorta repair (2022) Medications: Last Used TELMISARTAN JARDIANCE METOPROLOL PRILOSEC ASPIRIN LIPITOR Resting ECG: Sinus Bradycardia and T Wave Inversion Symptoms at rest: No symptoms Exercise Protocol: Timoteo Stress Exercise Table: +-----+ +--- -----+ +---+- --+---+----+----+ Stage Speed (MPH) Grade(%) Time (min) HR SYS ANYA RPE METS +-----+ +--- -----+ +---+- --+---+----+----+ 1 1.7 10.0 3.0 108 152 80 13.0 4.2 +-----+ +--- -----+ +---+- --+---+----+----+ 2 2.5 12.0 6.0 121 168 84 16.0 6.1 +-----+ +--- -----+ +---+- --+---+----+----+ +-----+ +--- ------+ +---+ ---+---+----+----+ Speed (MPH) Grade (%) Time (min) HR SYS ANYA RPE METS +-----+ +--- ------+ +---+ ---+---+----+----+ Final 3.4 14.0 7.50 133 168 84 17.0 7.2 +-----+ +--- ------+--- (more content not included)... [facility] STRESS ECHO TREADMILL Stress Shot Examiner Report: Stress [facility] Date of service: 04/28/2024 12:12:51 PM Supervising physician: Nnamdi Adam MD PATIENT: Name: MR. MARTIN HENSON Age: 68 years Gender: M The supervising physician was in the department and immediately available. Final ------ Echocardiography Report: Stress [facility] Date of service: 04/28/2024 12:12:51 PM Ordering physician: DEENA FRANCOIS Indication: Hypertrophic obstructive cardiomyopathy Technologist: Alexia Armando RD Interpreting physician: John Austin MD PATIENT: Name: MR. MARTIN HENSON : 1955 Age: 68 years Gender: M History of cardiomyopathy. Previous cardiovascular interventions: Aortic valve replacement (2022) : Aortoplasty of root 07/2023 Ascending aorta repair (2022) Height: 185.42 cm BSA: 2.35 m Weight: 107.05 kg BMI: 31.1 kg/m Heart rate 59 bpm Blood pressure 131/88 mmHg Spectral Doppler was utilized to determine the flow velocities and pressure gradients reported in this exam. Ejection Fraction not reported due to limited echo interrogation. FINDINGS: LEFT VENTRICLE There is severe asymmetric left ventricular hypertrophy. Wall Motion: Rest: All scored segments are normal. Stress: The mid and distal anterior wall, apical lateral segment, and mid anterolateral segment are hyperkinetic. All remaining scored segments are normal. STRESS ECHO Peak HR 133 bpm. (88 % MPHR) Peak BP 168 mmHg/84 mmHg. There is left ventricular cavity obliteration with stress. CONCLUSIONS: - Exam indication: Hypertrophic obstructive cardiomyopathy - The exercise stress echo was negative for ischemia at 88 % of MPHR (7.2 METS). No regional wall motion abnormality seen at heart rate achieved. - There is severe asymmetric left ventricular hypertrophy. - LV cavity gradient increased from 36 mmHg at rest (at 60 bpm) to 110 mmHg post exercise at a heart rate of 111 bpm. - Prior CC echocardiographic exam was performed on 03/25/2024. Final ------ Stress ECG Report: Stress Echo [facility] Date of service: 04/28/2024 12:12:51 PM Ordering physician: DEENA FRANCOIS medical claims specialist: Rozina Holly Stock Plan Administrator: Marita Rodriguez Interpreting physician: John Austin MD Patient name: MR. MARTIN HENSON Age: 68 years Gender: M History of cardiomyopathy. Height: 185.42 cm BSA: 2.35 m Weight: 107.05 kg BMI: 31.1 kg/m Indication: Encounter for screening for cardiovascular disorders Stress ECG Conclusion: Conclusion: Non-diagnostic due to inadequate HR response (B-shara) and T wave inversion Stress ECG Summary: The patient's resting heart rate was 59 bpm and blood pressure was 131/88 mmHg. The patient exercised according to the Timoteo protocol. The estimated end-exercise MET level achieved using the FRIEND equation was 7.2, which is within the 25th to 50th percentile for age and sex. The estimated end-exercise MET level achieved using the previous ACSM equation was 8.6. The test was terminated due to shortness of breath and leg fatigue and the total exercise time was 7 minutes and 30 seconds. Other symptoms during the test included SOB and leg fatigue. The maximum heart rate was 133 bpm, which is 88% of the predicted heart rate for age. Peak blood pressure was 168/84 mmHg. The double product achieved was [id number]. Previous cardiovascular interventions: Aortic valve replacement (2022) : Aortoplasty of root 07/2023 Ascending aorta repair (2022) Medications: Last Used TELMISARTAN JARDIANCE METOPROLOL PRILOSEC ASPIRIN LIPITOR Resting ECG: Sinus Bradycardia and T Wave Inversion Symptoms at rest: No symptoms Exercise Protocol: Timoteo Stress Exercise Table: +-----+ +--- -----+ +---+- --+---+----+----+ Stage Speed (MPH) Grade(%) Time (min) HR SYS ANYA RPE METS +-----+ +--- -----+ +---+- --+---+----+----+ 1 1.7 10.0 3.0 108 152 80 13.0 4.2 +-----+ +--- -----+ +---+- --+---+----+----+ 2 2.5 12.0 6.0 121 168 84 16.0 6.1 +-----+ +--- -----+ +---+- --+---+----+----+ +-----+ +--- ------+ +---+ ---+---+----+----+ Speed (MPH) Grade (%) Time (min) HR SYS ANYA RPE METS +-----+ +--- ------+ +---+ ---+---+----+----+ Final 3.4 14.0 7.50 133 168 84 17.0 7.2 +-----+ +--- ------+ +---+ ---+---+----+----+ Recovery Table: +------+ +--- +---+---+ Stage Time (min) HR SYS ANYA +------+ +--- +---+---+ (more content not included)... Normal [facility] 04-27-2024 [facility] Telephone (CDLBME) MARTIN HENSON ([id number]) 1955 M Date Time Provider Department 04/27/24 [facility] During your visit today, we recorded the following information about you: Marita Rodriguez RN 04/27/2024 1:56 PM Signed Spoke with patient regarding reminder for stress test tomorrow and given instructions and reviewed to take all medications including metoprolol as normal. Allergies As of Date: 04/27/2024 (No Known Allergies) Date Reviewed: 03/25/2024 Reviewed by: Lester Lewis RN - Fully Assessed Reason for Visit: Reminder Call [[id number]] Prescriptions as of 04/27/2024 - Telmisartan 20 mg tablet Take 2 tablets by mouth once daily. - empagliflozin (JARDIANCE) 10 mg tablet Take 1 tablet by mouth daily with breakfast. - metoprolol succinate ER (TOPROL XL) 100 mg Take 2 tablets by mouth daily with breakfast AND 1 tablet daily at bedtime. - omeprazole (PRILOSEC) 40 mg capsule Take 1 capsule by mouth once daily. - aspirin, enteric coated (ASPIRIN, ENTERIC COATED) 81 mg EC tablet Take 1 tablet by mouth once daily. - atorvastatin (LIPITOR) 20 mg tablet Take 1 tablet by mouth daily at bedtime. - cetirizine (ZYRTEC) 10 mg tablet Take 1 tablet by mouth once daily as needed for cold/allergy symptoms. - acetaminophen (TYLENOL) 325 mg tablet Take 2 tablets by mouth every 6 hours as needed (for mild surgical pain). - MULTIVITAMIN TAB Take one(1) tablet daily. Problem List As Of Date 04/27/2024 Noted Resolved JOINT PAIN-UNSPEC [M25.50] 05/20/2006 10/03/2006 SPRAIN SHOULDER/ARM NOS [[id number]] 05/20/2006 10/03/2006 Complete rupture of rotator cuff [M75.120] 10/03/2006 Obesity (BMI 30-39.9) [E66.9] 02/16/2011 Special screening for malignant neoplasms, colo*03/13/2011 Nonrheumatic aortic valve stenosis [I35.0] 06/25/2023 Aortic root dilatation (HCC) [I77.810] 07/24/2023 Angina pectoris (HCC) [I20.9] 07/24/2023 Discharge planning issues [Z75.8] 07/24/2023 Encounter for support and coordination of trans*07/24/2023 Aortic stenosis due to bicuspid aortic valve [Q*07/29/2023 On mechanically assisted ventilation (HCC) [Z99*07/29/2023 Hypovolemia [E86.1] 07/29/2023 AI (aortic insufficiency) [I35.1] 07/29/2023 Hypotension [I95.9] 07/29/2023 Postoperative pain [G89.18] 07/29/2023 Aphasia [R47.01] 07/30/2023 Primary hypertension [I10] 07/30/2023 Hypervolemia [E87.70] 08/01/2023 Postoperative ileus (HCC) [K91.89, K56.7] 08/02/2023 Hyperlipidemia LDL goal <70 [E78.5] 08/03/2023 Gastroesophageal reflux disease without esophag*08/03/2023 ABLA (acute blood loss anemia) [D62] 08/03/2023 Thrombocytopenia (HCC) [D69.6] 08/03/2023 Hypertrophic cardiomyopathy (HCC) [I42.2] 09/18/2023 Obesity, Class I, BMI 30-34.9 [E66.9] 09/18/2023 Encounter Status:Closed by MARITA RODRIGUEZ [facility] (CARCMN) MARTIN HENSON ([id number]) 1955 M Date Time Provider Department 04/20/24 DEENA FRANCOIS During your visit today, we recorded the following information about you: Garima Garcia 04/20/2024 10:17 AM Signed April 20, 2024 Patient Contact Number: [phone] (home) [phone] (work) Patient last seen within the last year: Yes Date of last office visit: 03/25/24 Reason For Call: Blood Pressure Changes Patient called to give an update on his Blood Pressures. AM PM 04/12 128/85 117/84 8/ 116/84 114/81 8/ 122/83 ` 119/81 8/7 116/84 104/76 8/8 121/81 133/92 8/9 114/79 106/70 8/10 120/85 133/87 His BP machine said he had an irregular HR a few times. He's feeling pretty good, occasional tiredness. Physician: Deena Francois MD Patient was informed that non-urgent calls may be returned within the next three business days. Yes Garima Garcia Lester Lewis RN 04/23/2024 2:31 PM Signed Excellent numbers. No change if he feels well. Thanks AH Messaged patient Lester Lewis RN Allergies As of Date: 04/20/2024 (No Known Allergies) Date Reviewed: 03/25/2024 Reviewed by: Lester Lewis RN - Fully Assessed Reason for Visit: Patient Update [1234] Prescriptions as of 04/23/2024 - Telmisartan 20 mg tablet Take 2 tablets by mouth once daily. - empagliflozin (JARDIANCE) 10 mg tablet Take 1 tablet by mouth daily with breakfast. - metoprolol succinate ER (TOPROL XL) 100 mg Take 2 tablets by mouth daily with breakfast AND 1 tablet daily at bedtime. - omeprazole (PRILOSEC) 40 mg capsule Take 1 capsule by mouth once daily. - aspirin, enteric coated (ASPIRIN, ENTERIC COATED) 81 mg EC tablet Take 1 tablet by mouth once daily. - atorvastatin (LIPITOR) 20 mg tablet Take 1 tablet by mouth daily at bedtime. - cetirizine (ZYRTEC) 10 mg tablet Take 1 tablet by mouth once daily as needed for cold/allergy symptoms. - acetaminophen (TYLENOL) 325 mg tablet Take 2 tablets by mouth every 6 hours as needed (for mild surgical pain). - MULTIVITAMIN TAB Take one(1) tablet daily. Problem List As Of Date 04/20/2024 Noted Resolved JOINT PAIN-UNSPEC [M25.50] 05/20/2006 10/03/2006 SPRAIN SHOULDER/ARM NOS [INP1363] 05/20/2006 10/03/2006 Complete rupture of rotator cuff [M75.120] 10/03/2006 Obesity (BMI 30-39.9) [E66.9] 02/16/2011 Special screening for malignant neoplasms, colo*03/13/2011 Nonrheumatic aortic valve stenosis [I35.0] 06/25/2023 Aortic root dilatation (HCC) [I77.810] 07/24/2023 Angina pectoris (HCC) [I20.9] 07/24/2023 Discharge planning issues [Z75.8] 07/24/2023 Encounter for support and coordination of trans*07/24/2023 Aortic stenosis due to bicuspid aortic valve [Q*07/29/2023 On mechanically assisted ventilation (HCC) [Z99*07/29/2023 Hypovolemia [E86.1] 07/29/2023 AI (aortic insufficiency) [I35.1] 07/29/2023 Hypotension [I95.9] 07/29/2023 Postoperative pain [G89.18] 07/29/2023 Aphasia [R47.01] 07/30/2023 Primary hypertension [I10] 07/30/2023 Hypervolemia [E87.70] 08/01/2023 Postoperative ileus (HCC) [K91.89, K56.7] 08/02/2023 Hyperlipidemia LDL goal <70 [E78.5] 08/03/2023 Gastroesophageal reflux disease without esophag*08/03/2023 ABLA (acute blood loss anemia) [D62] 08/03/2023 Thrombocytopenia (HCC) [D69.6] 08/03/2023 Hypertrophic cardiomyopathy (HCC) [I42.2] 09/18/2023 Obesity, Class I, BMI 30-34.9 [E66.9] 09/18/2023 Encounter Status:Closed by GARIMA GARCIA on 04/23/24 [facility] Fernando 04-01-2024 KIMBERLYN Telephone (CARCMN) MARTIN HENSON ([id number]) 1955 Date Time Provider Department 04/01/24 DEENA FRANCOIS During your visit today, we recorded the following information about you: Marita Elizondo, MARCUS 04/01/2024 10:17 AM Signed Deena Francois MD P [facility] Clinical Nurse Phone Pool Please, let Ross know that I have seen his Echo: it is better but his LV is very muscular and still with mid-cavity mild obstruction. I would like him to be on a medication Camzyos but he does not qualify quite yet. I need to have a stress echo done first. HE SHOULD KEEP TAKING HIS METOPROLOL for the stress test. I also ordered a 48-hr Holter. Thank you to let him know. Messaged patient with information and instructions from Dr. Levin. Marita Elizondo RN Allergies As of Date: 04/01/2024 (No Known Allergies) Date Reviewed: 03/25/2024 Reviewed by: Lester Lewis RN - Fully Assessed Prescriptions as of 04/01/2024 - Telmisartan 20 mg tablet Take 2 tablets by mouth once daily. - empagliflozin (JARDIANCE) 10 mg tablet Take 1 tablet by mouth daily with breakfast. - metoprolol succinate ER (TOPROL XL) 100 mg Take 2 tablets by mouth daily with breakfast AND 1 tablet daily at bedtime. - omeprazole (PRILOSEC) 40 mg capsule Take 1 capsule by mouth once daily. - aspirin, enteric coated (ASPIRIN, ENTERIC COATED) 81 mg EC tablet Take 1 tablet by mouth once daily. - atorvastatin (LIPITOR) 20 mg tablet Take 1 tablet by mouth daily at bedtime. - cetirizine (ZYRTEC) 10 mg tablet Take 1 tablet by mouth once daily as needed for cold/allergy symptoms. - acetaminophen (TYLENOL) 325 mg tablet Take 2 tablets by mouth every 6 hours as needed (for mild surgical pain). - MULTIVITAMIN TAB Take one(1) tablet daily. Problem List As Of Date 04/01/2024 Noted Resolved JOINT PAIN-UNSPEC [M25.50] 05/20/2006 10/03/2006 SPRAIN SHOULDER/ARM NOS [[id number]] 05/20/2006 10/03/2006 Complete rupture of rotator cuff [M75.120] 10/03/2006 Obesity (BMI 30-39.9) [E66.9] 02/16/2011 Special screening for malignant neoplasms, colo*03/13/2011 Nonrheumatic aortic valve stenosis [I35.0] 06/25/2023 Aortic root dilatation (HCC) [I77.810] 07/24/2023 Angina pectoris (HCC) [I20.9] 07/24/2023 Discharge planning issues [Z75.8] 07/24/2023 Encounter for support and coordination of trans*07/24/2023 Aortic stenosis due to bicuspid aortic valve [Q*07/29/2023 On mechanically assisted ventilation (HCC) [Z99*07/29/2023 Hypovolemia [E86.1] 07/29/2023 AI (aortic insufficiency) [I35.1] 07/29/2023 Hypotension [I95.9] 07/29/2023 Postoperative pain [G89.18] 07/29/2023 Aphasia [R47.01] 07/30/2023 Primary hypertension [I10] 07/30/2023 Hypervolemia [E87.70] 08/01/2023 Postoperative ileus (HCC) [K91.89, K56.7] 08/02/2023 Hyperlipidemia LDL goal <70 [E78.5] 08/03/2023 Gastroesophageal reflux disease without esophag*08/03/2023 ABLA (acute blood loss anemia) [D62] 08/03/2023 Thrombocytopenia (HCC) [D69.6] 08/03/2023 Hypertrophic cardiomyopathy (HCC) [I42.2] 09/18/2023 Obesity, Class I, BMI 30-34.9 [E66.9] 09/18/2023 Encounter Status:Closed by MARITA ELIZONDO on 04/01/24 [facility] [place] 03-25-2024 CNOV Office Visit (CARCMN ) MARTIN HENSON ([id number]) 1955 M Date Time Provider Department 03/25/24 2:45 PM DEENA FRANCOIS CARCMN During your visit today, we recorded the following information about you: Pulse Blood pressure Weight Height 61/minute 147/86 107 kg 1.854 m Deena Francois MD 06/05/2024 10:41 AM Addendum [facility] [place] [facility] Department of Cardiovascular Medicine SECTION OF CLINICAL CARDIOLOGY OUTPATIENT VISIT DATE March 25, 2024 OUTPATIENT VISIT TYPE ESTABLISHED PRIMARY CARE PHYSICIAN: ABDIEL MATHEWS [id number] [phone] REFERRING PHYSICIAN: Deena Francois MD [address] [place], [place] [id number] CHIEF COMPLAINT: Follow up HISTORY OF PRESENT ILLNESS: Mr. Henson is a 68 year old male who presents today for a cardiovascular medicine follow-up visit. Last office visit 01/08/24: H/O HTN, HLP, obesity (BMI 31.1) Mr. Henson is a 68 year old male with on BAV and root dilation, s/p AVR (Inspiris) and aortoplasty of root in Jul 2023. Went to rehab. Feels great, lost weight ~ 6 lbs. Asymptomatic. Today, mild HTN. Check numbers at home and have device checked at the pharmacy. Aortic root stable at 45 mm on CTA today Echo shows severe LVH with mid-cavity obstruction. Likely secondary LVH due to +HTN (cf cardiac MRI pre-op), and EF ~70%. PLAN AND RECOMMENDATIONS: - Increase Metoprolol succinate to 100 mg twice a day. Goal is to get HR around 60 bpm at rest. - Blood pressure is 145/90 today with HR 84 bpm. Increase Zestril 5 mg to twice per day. Check numbers at home and have device checked at the pharmacy. - Schedule echocardiogram in ~6 weeks months to reassess gradients and follow up in clinic. Today 03/25/24: Mr. Henson presents today accompanied by his . States he has been doing well. Has not been checking his blood pressure often, does not have a cuff yet but has checked at the pharmacy infrequently. Has lost 5 pounds since last visit. Has been active outside. Denies any current complaints or concerns. He denies chest pain, shortness of breath, orthopnea, cough, edema, palpitations, PND, lightheadedness or syncope. PAST CARDIAC HISTORY: See above PAST MEDICAL HISTORY Diagnosis Date Aortic stenosis Bicuspid aortic valve Hemorrhoids HLD (hyperlipidemia) HTN (hypertension) Primary cardiomyopathy (HCC) PAST SURGICAL HISTORY Procedure Laterality Date ARTHROPLASTY GLENOHUMRL JT HEMIARTHROPLASTY 07/2006 Arthroplasty, shoulder: torn rotator cuff (right) COLONOSCOPY FLX DX W/COLLJ SPEC WHEN PFRMD 04/09/11 TONSILLECTOMY PRIMARY/SECONDARY Tonsillectomy XCAPSL CTRC RMVL INSJ IO LENS PROSTH W/O ECP 2006 Cataract Removal bilateral SOCIAL HISTORY Social History Tobacco Use Smoking status: Never Smokeless tobacco: Current Types: Snuff Vaping Use Vaping Use: Never used Substance Use Topics Alcohol use: Yes Comment: very rarely Drug use: No FAMILY HISTORY Problem Relation Age of Onset Cancer Mother breast Arthritis Mother Hypertension Mother Heart Father atrial fib Stroke Father ? A-fib related Hypertension Sister Hypertension Brother Colon Cancer Other none Prostate Cancer Other none Diabetes Other none ALLERGIES: ALLERGIES No Known Allergies MEDICATIONS: empagliflozin (JARDIANCE) 10 mg tablet Take 1 tablet by mouth daily with breakfast. lisinopril (ZESTRIL) 5 mg tablet Take 1 tablet by mouth two times a day. metoprolol succinate ER (TOPROL XL) 100 mg Take 2 tablets by mouth daily with breakfast AND 1 tablet daily at bedtime. omeprazole (PRILOSEC) 40 mg capsule Take 1 capsule by mouth once daily. aspirin, enteric coated (ASPIRIN, ENTERIC COATED) 81 mg EC tablet Take 1 tablet by mouth once daily. atorvastatin (LIPITOR) 20 mg tablet Take 1 tablet by mouth daily at bedtime. cetirizine (ZYRTEC) 10 mg tablet Take 1 tablet by mouth once daily as needed for cold/allergy symptoms. acetaminophen (TYLENOL) 325 mg tablet Take 2 tablets by mouth every 6 hours as needed (for mild surgical pain). MULTIVITAMIN TAB Take one(1) tablet daily. REVIEW OF SYSTEMS: GENERAL: Negative for: Unintentional weight loss or gain, Fever or Chills, Weakness and Sleep difficulties. PHYSICAL EXAMINATION: BP 147/86 (BP Site: Left Arm) Pulse 61 Ht 185.4 cm (6' 1) Wt 107 kg (236 lb) SpO2 100% BMI 31.14 kg/m? GEN: Awake, alert, in no acute distress HEENT: PERRLA, EOMI Neck: supple, no carotid bruits, no JVD LUNGS: Regular WOB, CTAB CV: RRR, normal S1/S2, 3/6 DHARMESH over aortic area with extension to apex ABD: Abdomen soft, non-tender, non-distended. Normoactive bowel sounds. No rebound or guarding. No HJR EXT: No edema, warm NEURO: AANDOx3 CARDIOVAS (more content not included)... Normal [facility] ECG COMPLETEon 03-25-2024 ECG COMPLETE Ventricular Rate : 5 3 BPM Atrial Rate : 53 BPM P-R Interval : 180 ms QRS Duration : 104 ms Q-T Interval : 482 ms QTC Calculation(Bazett) : 452 ms Calculated P [place] : 66 degrees Calculated R [place] : -4 degrees Calculated T [place] : 141 degrees SINUS BRADYCARDIA LEFT VENTRICULAR HYPERTROPHY WITH REPOLARIZATION ABNORMALITY ( R in aVL , Sokolow-Salcedo ) ABNORMAL ECG Confirmed by DEENA FRANCOIS MD ([id number]) on 04/21/2024 3:45:47 PM NAME : MARTIN HENSON PID : [id number] : 1955 Gender : Male Race : ORD : [id number] Procedure Date : Mar 25 2024 13:14:02 Edit Date : Apr 21 2024 15:45:51 Diagnosis: SINUS BRADYCARDIA LEFT VENTRICULAR HYPERTROPHY WITH REPOLARIZATION ABNORMALITY ( R in aVL , Sokolow-Salcedo ) ABNORMAL ECG Confirmed by DEENA FRANCOIS MD ([id number]) on 04/21/2024 3:45:47 PM Test Reason : Location : 314 : J14 Overread By : DEENA FRANCOIS MD Edited By : DEENA FRANCOIS MD Referred By : JASPREET FRANCOIS Acquired by : JOSÉ LUIS QIU [facility] ECHOon 03-25-2024 Echocardiography Echocardiography Report: Transthoracic Echo [facility] [place] J1-5 Date of service: 03/25/2024 1:36:29 PM SALES ADVISOR Ordering physician: DEENA FRANCOIS Indication: Limited for LV gradients Technologist: Richelle Renodn Fellow: Denisse Cooper MD Interpreting physician: Darwin Carranza MD PATIENT: Name: MR. MARTIN HENSON : 1955 Age: 68 years Gender: M History of hypertension, dyslipidemia, cardiomyopathy and valvular heart disease. Previous cardiovascular interventions: Aortic valve replacement (07/29/2023) Ascending aorta repair (07/29/2023) : Ascending aortoplasty incorporated into aortotomy for AVR Primary rhythm: sinus. Height: 185.40 cm BSA: 2.37 m Weight: 109.32 kg BMI: 31.8 kg/m Heart rate 51 bpm Blood pressure 147/79 mmHg Color Doppler was utilized to interrogate the cardiac valves assessed and spectral Doppler was utilized to determine the flow velocities and pressure gradients reported in this exam. MEASUREMENTS: Value Normal Ejection Fraction 65 % (visual est.) EF > 52 FINDINGS: LEFT VENTRICLE The left ventricle is normal in size. There is severe asymmetric left ventricular hypertrophy. Left ventricular systolic function is normal. Left ventricular diastolic function was not evaluated due to Limited Echo. Wall Motion: All scored segments are normal. RIGHT VENTRICLE The right ventricle is normal in size. Right ventricular systolic function is normal. Estimated right atrial pressure is 3 mmHg based on IVC assessment. RIGHT ATRIUM Inferior Vena Cava: The inferior vena cava appears normal measuring 1.2 cm. The vessel decreases greater than 50 percent with inspiration. MITRAL VALVE There is trace mitral valve regurgitation. There is mild thickening. TRICUSPID VALVE There is trace tricuspid valve regurgitation. There is no thickening. AORTIC VALVE Inspiris prosthetic valve size #25. There is no aortic valve regurgitation. There is mild thickening. The peak gradient is 24 mmHg (peak velocity = 245.7 cm/s). The mean gradient is 12 mmHg. The aortic VTI is 52.1 cm. The dimensionless valve index is 0.53. PULMONIC VALVE There is trace pulmonic valve regurgitation. PULMONARY ARTERIES The pulmonary arteries are normal. PERICARDIUM There is no pericardial effusion. There is an epicardial fat pad. CONCLUSIONS: - Exam indication: Limited for LV gradients - The left ventricle is normal in size. There is severe asymmetric left ventricular hypertrophy. Left ventricular systolic function is normal. EF = 65 5% (visual est.) Left ventricular diastolic function was not evaluated due to Limited Echo. - The right ventricle is normal in size. Right ventricular systolic function is normal. - Inspiris prosthetic aortic valve (size #25). There is no aortic valve regurgitation. The peak gradient is 24 mmHg, the mean gradient is 12 mmHg and the dimensionless valve index is 0.53. Prior Peak/Mean gradients: 33/18mmHg. - There is a intracavitary gradient of 35 mmHg from severe LVH (clip #55). There is no obvious SANJEEV. - Exam was compared with the prior echocardiographic exam performed on 01/08/2024. Interval decrease in HR, intracavitary gradients and transaortic valve gradients. * * * Final * * * [facility] [facility] : [id number] Normal [facility] CTA CHEST (GATED) W IVCONon 01-09-2024 CTA CHEST (GATED) W IVCON * * *Final Report* * * DATE OF EXAM: Jan 09 2024 7:42AM JQC 0125 - CTA CHEST (GATED) W IVCON / PROCEDURE REASON: multiple diagnoses * * * * Physician Interpretation * * * * CTA Aorta chest Direct Image Comparison: Cardiac MRI 07/24/2023 HISTORY: 68 years old Male with h/o aortic valve replacement and aortoplasty in July 2023 Evaluation for interval change. There is request to define thoracic and aortic anatomy TECHNIQUE: SCANNER: out-patient Siemens Definition Force Dual source [id number] scanner PROTOCOL: Prospectively triggered helical high-pitch acquisitions (triggered Flash-mode) was performed following the intravenous administration of contrast material. Scan Range: thoracic inlet to the diaphragm CT Dose-Length Product (DLP): 267 mGy*cm CT Dose Reduction Employed: Automated exposure control(AEC) and iterative recon CONTRAST: IV administration of 80 ml Omnipaque 350 Scan acquisition: uncomplicated Macro Version: [id number] For optimization of anatomic evaluation, advanced 3-D off-line postprocessing was performed on a dedicated workstation by the interpreting physician. STUDY LIMITATIONS: None.. RESULT: LINES, TUBES and DEVICES: None CHEST: Chest wall anatomy: evidence of median sternotomy with sternal wires in place. Hypodense nodules thyroid gland, not well characterized LUNGS: bibasilar atelectasis. MEDIASTINUM: small mediastinal lymph nodes, which are not pathologic by size criteria. Small hiatal hernia PERICARDIUM: unremarkable CENTRAL PULMONARY ARTERY: dilation, measuring 3.8 cm. CARDIAC CHAMBERS: LEFT VENTRICLE: concentric hypertrophy. RIGHT VENTRICLE: normal size Left atrium: dilated. MATTEO: normal Right atrium: prominent CENTRAL VENOUS and PULMONARY VENOUS RETURN: normal. Coronary Sinus: normal size MITRAL VALVE: assessment is limited in the current study - no leaflet calcification. No annular calcification TRICUSPID and PULMONIC VALVE: appear unremarkable. CORONARY ANATOMY: normal origin of the coronary arteries. Mild calcified atherosclerotic changes of the coronary arteries. However, the current study is not optimized for coronary assessment. AORTIC VALVE: AVR with bioprosthetic valve, which appears well seated. No leaflet calcification. AORTA: Aortic Size: Normal size repaired aorta. The remaining segments of the thoracic aorta are normal in size Pathology: No acute aortic pathology. Intervention: Aortoplasty Complications: no evidence of post-surgical complications. STJ: maintained. No calcification. Wall Changes: expected surgical changes surrounding the repaired segments of the aorta. Arch Branch Vessels: Patent, normal size proximal segments of the arch branch vessels. Normal origin of the arch branch vessels. No evidence of wall changes. AORTIC DIMENSIONS: AORTIC ROOT: 4.5 cm measured [id number] No significant interval change mid ASCENDING THORACIC AORTA: 3.9 cm Interval decrease in size, prior diameter 4.5 cm mid AORTIC ARCH: 3.1 cm mid DESCENDING THORACIC AORTA: 2.8 cm limited upper ABDOMEN: unremarkable BONES and SOFT TISSUES: degenerative changes of the thoracic spine. Digital X Ray Service Engineer (topogram) images: No additional findings. IMPRESSION: AORTIC VALVE: AVR with bioprosthetic valve, which appears well seated. No leaflet calcification. AORTA: Aortoplasty no evidence of post-surgical complications.expected surgical changes surrounding the repaired segments of the aorta. Normal size repaired aorta. The remaining segments of the thoracic aorta are normal in size No acute aortic pathology. AORTIC ROOT: 4.5 cm measured [id number] No significant interval change mid ASCENDING THORACIC AORTA: 3.9 cm Interval decrease in size, prior diameter 4.5 cm CORONARY ANATOMY: normal origin of the coronary arteries. Mild calcified atherosclerotic changes of the coronary arteries. However, the current study is not optimized for coronary assessment. Box Toe Stitcher: REINALDO Transcribe Date/Time: Jan 09 2024 8:06A Dictated by : TORIN MOFFETT MD This examination was interpreted and the report reviewed and electronically signed by: TORIN MOFFETT MD on Jan 09 2024 10:43AM EST [id number] Normal [facility] CNOVon 01-08-2024 CNOV Office Visit (CARCMN ) MARTIN HENSON ([id number]) 1955 M Date Time Provider Department 01/08/24 3:15 PM DEENA FRANCOIS During your visit today, we recorded the following information about you: Pulse Respiration Blood pressure Weight 84/minute 14/minute 145/90 109.3 kg Deena Francois MD 03/27/2024 10:17 AM Addendum Heart[facility] [place] [facility] Department of Cardiovascular Medicine SECTION OF CLINICAL CARDIOLOGY OUTPATIENT VISIT DATE January 08, 2024 OUTPATIENT VISIT TYPE ESTABLISHED PRIMARY CARE PHYSICIAN: ABDIEL MATHEWS [id number] [id number] REFERRING PHYSICIAN: Deena Francois MD [address] [place] [address] CHIEF COMPLAINT: None, has just completed cardiac Rehab, good BPs in Rehab HISTORY OF PRESENT ILLNESS: Mr. Henson is a 68 year old male who presents today for a cardiovascular medicine follow-up visit , last seen on 09/18/2023: ------ Mr Santizo 67 yo with due to BAV, and pre-op findings of severe concentric LV hypertrophy - more prominent on septal wall, without hemodynamic obstruction at baseline but with small gradient of 17 mmHg with Valsalva maneuver- and severe /BAV/ Ao root dilation at 4.5-4.6 cm cm at the sinuses and distal ascending aorta levels. There is MAC with mild MS and MR based on TTE+MRI. Mr. Henson is a 67 year old male who had AVR (INSPIRIS #25) and aortoplasty of root on 07/29/23. Has LVH++(diastolic dysfunction) Now mild right sided CP, no other symptome, feels good, actually better than before. Exam: no CHF, beautiful sternal scar, lungs OK, Aortic valve systolic murmur 2-11/12 as expected. ECG: NSR with LV hypertrophy and strain, 79 bpm PLAN AND RECOMMENDATIONS: no change in current meds - Start Cardiac Rehab - Always avoid heavy lifting , nothing above 35-40 pounds - Keep you Blood Pressure lower between 100 and 135: start Lisinopril 5 mg/day and Jardiance 10 - F/U in 3 months. He denies chest pain, shortness of breath, orthopnea, cough, edema, palpitations, PND, lightheadedness or syncope. PAST CARDIAC HISTORY: None, see above PAST MEDICAL HISTORY Diagnosis Date Aortic stenosis Bicuspid aortic valve Hemorrhoids HLD (hyperlipidemia) HTN (hypertension) Primary cardiomyopathy (HCC) PAST SURGICAL HISTORY Procedure Laterality Date ARTHROPLASTY GLENOHUMRL JT HEMIARTHROPLASTY 07/2006 Arthroplasty, shoulder: torn rotator cuff (right) COLONOSCOPY FLX DX W/COLLJ SPEC WHEN PFRMD 04/09/11 TONSILLECTOMY PRIMARY/SECONDARY Tonsillectomy XCAPSL CTRC RMVL INSJ IO LENS PROSTH W/O ECP 2006 Cataract Removal bilateral SOCIAL HISTORY Social History Tobacco Use Smoking status: Never Smokeless tobacco: Current Types: Snuff Vaping Use Vaping Use: Never used Substance Use Topics Alcohol use: Yes Comment: very rarely Drug use: No FAMILY HISTORY Problem Relation Age of Onset Cancer Mother breast Arthritis Mother Hypertension Mother Heart Father atrial fib Stroke Father ? A-fib related Hypertension Sister Hypertension Brother Colon Cancer Other none Prostate Cancer Other none Diabetes Other none ALLERGIES: ALLERGIES No Active Allergies MEDICATIONS: lisinopril (ZESTRIL) 5 mg tablet Take 1 tablet by mouth once daily. empagliflozin (JARDIANCE) 10 mg tablet Take 1 tablet by mouth daily with breakfast. doxycycline (VIBRA-TABS) 100 mg tablet Take 1 tablet by mouth two times a day. (Patient not taking: Reported on 09/18/2023) omeprazole (PRILOSEC) 40 mg capsule Take 1 capsule by mouth once daily. aspirin, enteric coated (ASPIRIN, ENTERIC COATED) 81 mg EC tablet Take 1 tablet by mouth once daily. atorvastatin (LIPITOR) 20 mg tablet Take 1 tablet by mouth daily at bedtime. cetirizine (ZYRTEC) 10 mg tablet Take 1 tablet by mouth once daily as needed for cold/allergy symptoms. acetaminophen (TYLENOL) 325 mg tablet Take 2 tablets by mouth every 6 hours as needed (for mild surgical pain). furosemide (LASIX) 40 mg tablet Take 1 tablet by mouth once daily for 7 days. (Patient not taking: Reported on 09/18/2023) metoprolol succinate ER (TOPROL XL) 100 mg Take 1.5 tablets by mouth daily with breakfast AND 1 tablet daily at bedtime. docusate sodium (COLACE) 100 mg capsule Take 1 capsule by mouth two times a day. (Patient not taking: Reported on 09/18/2023) MULTIVITAMIN TAB Take one(1) tablet daily. REVIEW OF SYSTEMS: GENERAL: Negative for: Weight loss or gain, Fever or Chills, Weakness and Sleep difficulties. HEENT: Negative for: Headache, Impaired Vision, Glasses, Hear (more content not included)... Normal [facility] CREATININE, BLOOD (POC)on Creatinine [Mass/Vol] 1.20 mg/dL 0.7 - 1.4 mg/dL [facility] eGFR (POCT) mL/min/1.73 m2 [facility] Location:Radiology [facility], [address] [place] [address], [address] [place] [address] POINT OF CARE [facility] ECHOon 01-08-2024 Echocardiography Echocardiography Report: Transthoracic Echo [facility] J35 Date of service: 01/08/2024 1:33:42 PM SALES ADVISOR Ordering physician: DEENA FRANCOIS Indication: S/P AVR, Ascending Ao repair (07/2023) Technologist: Marizol Hamm Interpreting physician: Ann Millard MD PATIENT: Name: MR. MARTIN HENSON : 1955 Age: 68 years Gender: M History of hypertension, dyslipidemia, cardiomyopathy and valvular heart disease. Previous cardiovascular interventions: Aortic valve replacement (07/29/2023) Ascending aorta repair (07/29/2023) : Ascending aortoplasty incorporated into aortotomy for AVR Primary rhythm: sinus. Height: 185.40 cm BSA: 2.39 m Weight: 111.13 kg BMI: 32.3 kg/m Heart rate 76 bpm Blood pressure 161/86 mmHg Technically difficult exam due to body habitus. Color Doppler was utilized to interrogate the cardiac valves assessed and spectral Doppler was utilized to determine the flow velocities and pressure gradients reported in this exam. MEASUREMENTS: Value Indexed Normal Max aortic dimension 4.1 cm Ao < 3.8 Left atrial volume 52 ml (biplane A-L) 22 ml/m Sancho <= 34 LV ID (diastole) 3.6 cm (2D) 1.50 cm/m LV ID (systole) 2.5 cm (2D) 1.05 cm/m IVS, leaflet tips 2.0 cm (2D) Posterior wall thickness 1.7 cm (2D) Left ventricular mass 285 g (2D) 119 g/m LV stroke volume 56 ml (2D 4-ch.) LV end diastolic volume 81 ml (2D 4-ch.) 33.6 ml/m 34<=EDVi<75 LV end systolic volume 24 ml (2D 4-ch.) 10.1 ml/m Ejection Fraction 70 % (2D 4-ch.) EF > 52 FINDINGS: LEFT VENTRICLE The left ventricle is small. There is severe concentric left ventricular hypertrophy. Left ventricular systolic function is normal globally. Grade I left ventricular diastolic dysfunction. Mitral annular lateral E/e': 10.6. Mitral annular septal E/e': 10.6. Wall Motion: All scored segments are normal. RIGHT VENTRICLE The right ventricle is normal in size. Right ventricular systolic function is normal. RV systolic tissue Doppler velocity is 13.0 cm/s. Tricuspid annular displacement is 1.7 cm. Estimated right ventricular systolic pressure is not reported due to an insufficient tricuspid regurgitation signal. Estimated right atrial pressure is 8 mmHg based on IVC assessment. LEFT ATRIUM The left atrial cavity is normal in size. Pulmonary Veins: The pulmonary venous pattern showed normal systolic flow. RIGHT ATRIUM The right atrial cavity is normal in size. Inferior Vena Cava: The inferior vena cava appears normal measuring 1.7 cm. The vessel decreases less than 50 percent with inspiration. MITRAL VALVE There is trace (trace - 1+) mitral valve regurgitation. There is a anteriorly directed regurgitant jet. There is mild thickening. There is no systolic anterior motion. The pressure half time is 110 msec. The peak mitral E/A ratio is 0.65. The average mitral E/e' ratio is 10.6. The mitral flow deceleration time is 379 msec. TRICUSPID VALVE There is trace tricuspid valve regurgitation. There is no thickening. The hepatic venous pattern showed normal systolic flow. AORTIC VALVE Inspiris prosthetic valve size #25. There is no aortic valve regurgitation. The peak gradient is 33 mmHg (peak velocity = 285.9 cm/s). The mean gradient is 18 mmHg. The LVOT mean velocity is 97.6 cm/s. The aortic VTI is 48.6 cm. The mean velocity in the aortic valve is 193.3 cm/s. The dimensionless valve index is 0.62. PULMONIC VALVE There is trace pulmonic valve regurgitation. There is no thickening. AORTA The visualized aorta is dilated. Measurements - Mid ascending aorta 3.7 cm. Distal ascending aorta 4.1 cm. Distal descending diaphragmatic level 2.4 cm. PULMONARY ARTERIES The pulmonary arteries are unseen or not interrogated. INTERATRIAL SEPTUM There is no evidence of intracardiac shunting as detected by Doppler. INTERVENTRICULAR SEPTUM There is abnormal motion of the interventricular septum secondary to prior cardiac surgery. There is no flow through the interventricular septum as detected by Doppler. PERICARDIUM There is no pericardial effusion. CONCLUSIONS: - Technically difficult exam due to body habitus. - Exam indication: S/P AVR, Ascending Ao repair (07/2023) - The left ventricle is small. There is severe concentric left ventricular hypertrophy. Left ventricular systolic function is normal. EF = 70 5% (2D 4-ch.) Grade I left ventricular diastolic dysfunction. - The right ventricle is normal in size. Right ventricular systolic function is normal. - The visualized aorta is dilated with a maximal dimension of 4.1 cm. - Inspiris prosthetic aortic valve (size #25). There is no aortic valve regurgitation. The peak gradient is 33 mmHg, the mean gradient is 18 mmHg and the dimensionless valve index is 0.62. - There is an intracavitary gradient of ~102mmHg from severe concentric LVH (Clip #78). There (more content not included)... Normal [facility] CNOVon 01-01-2024 CNOV Office Visit (MIRI) MARTIN HENSON ([id number]) 1955 M Date Time Provider Department 01/01/24 8:00 AM CARD REHAB PHASE 2 [facility] During your visit today, we recorded the following information about you: Pulse Blood pressure Weight 62/minute 130/84 109.8 kg Josiah Suh, lease picker 01/01/2024 8:25 AM Signed Cardiac Rehabilitation [facility] Based Program Supervising Physician: Len Menendez Diagnosis: Aortic Valve Replacement Phase: 2 Monitor: Yes Session Number: 36 Today's exercise session was comprised of a warm-up, aerobic conditioning phase, aerobic cool-down, and free weight resistance training. Patient tolerated prescribed exercise workload. Tele SR-ST without ectopic beats. Vitals WNL for patient. No chest discomfort. No medication changes. This is a hospital based cardiac rehab program. Patient working towards exercise goals by sustaining exercise intensity and duration. Patient working towards education goal by attending education sessions in cardiac rehabilitation. Patient has verbalized understanding of Blood pressure education topic and the relation to disease managment. Patient's Daily Exercise Log will be scanned into TOPSEC once it is completed. These can be viewed by going under the Scanned Documents tab and looking for documents labeled Cardiac Rehabilitation. Daily Exercise Logs contain exercise data such as, but not limited to modality, intensity, duration and frequency of exercise, along with vital signs pre-, during, and post-exercise. Refer to patient's paper medical record for ECG rhythm strips, physician prescribed Individualized Treatment Plan, and education sessions covered. Josiah Suh, Health Care Specialist Heart [facility] Vascular [place] [facility] Department of Cardiovascular Medicine Discharge Assessment for Cardiac Rehab Martin Henson 01/01/2024 CHIEF COMPLAINT: Martin Henson is a 68 year old male seen today. Patient presents with: Cardiac Rehab: Discharge Patient completed optimal therapeutic dose of cardiac rehab: Yes Patient demonstrated clinically significant increase in functional capacity: Yes Patient achieved/maintained optimal blood pressure control: Yes Patient achieved clinical significant decrease in symptoms of depression: Yes Current smoking status: Never OUTCOMES: 10/09/2023 Initial Asmt Outcome Resting BP 118/80 Current Weight lb. 248 lbs BMI 32.84 Mediterranean Diet Score 3 PHQ9 Score 0 12/31/2023 Discharge Asmt Outcome Completed Ex. Sessions 36 Resting BP 130/84 Weight 242 lbs BMI 31.8 PAST MEDICAL HISTORY Diagnosis Date Aortic stenosis Bicuspid aortic valve Hemorrhoids HLD (hyperlipidemia) HTN (hypertension) Primary cardiomyopathy (HCC) PAST SURGICAL HISTORY Procedure Laterality Date ARTHROPLASTY GLENOHUMRL JT HEMIARTHROPLASTY 07/2006 Arthroplasty, shoulder: torn rotator cuff (right) COLONOSCOPY FLX DX W/COLLJ SPEC WHEN PFRMD 04/09/11 TONSILLECTOMY PRIMARY/SECONDARY Tonsillectomy XCAPSL CTRC RMVL INSJ IO LENS PROSTH W/O ECP 2006 Cataract Removal bilateral Social History Tobacco Use Smoking status: Never Smokeless tobacco: Current Types: Snuff Vaping Use Vaping Use: Never used Alcohol use: Yes Comment: very rarely Drug use: No FAMILY HISTORY Problem Relation Age of Onset Cancer Mother breast Arthritis Mother Hypertension Mother Heart Father atrial fib Stroke Father ? A-fib related Hypertension Sister Hypertension Brother Colon Cancer Other none Prostate Cancer Other none Diabetes Other none CURRENT MEDS: Current Outpatient Medications Medication Sig lisinopril (ZESTRIL) 5 mg tablet Take 1 tablet by mouth once daily. empagliflozin (JARDIANCE) 10 mg tablet Take 1 tablet by mouth daily with breakfast. doxycycline (VIBRA-TABS) 100 mg tablet Take 1 tablet by mouth two times a day. (Patient not taking: Reported on 09/18/2023) omeprazole (PRILOSEC) 40 mg capsule Take 1 capsule by mouth once daily. aspirin, enteric coated (ASPIRIN, ENTERIC COATED) 81 mg EC tablet Take 1 tablet by mouth once daily. atorvastatin (LIPITOR) 20 mg tablet Take 1 tablet by mouth daily at bedtime. cetirizine (ZYRTEC) 10 mg tablet Take 1 tablet by mouth once daily as needed for cold/allergy symptoms. acetaminophen (TYLENOL) 325 mg tablet Take 2 tablets by mouth every 6 hours as needed (for mild surgical pain). furosemide (LASIX) 40 mg tablet Take 1 tablet by mouth once daily for 7 days. (Patient not taking: Reported on 09/18/2023) metoprolol succinate ER (TOPROL XL) 100 mg Take 1.5 tablets by mouth daily with breakfast AND 1 tablet daily at bedtime. docusate sodium (COLACE) 100 mg capsule Take 1 capsule by mouth two times a day. (Patient not taking: Reported on 09/18/2023) MULTIVITAMIN TAB Take one(1) tablet daily. No (more content not included)... Normal [facility] 12-30-2023 [facility] Office Visit (MIRI) MARTIN HENSON ([id number]) 1955 M Date Time Provider Department 12/30/23 8:00 AM CARD REHAB PHASE 2 [facility] During your visit today, we recorded the following information about you: Katie Decker, Health Care Specialist 12/30/2023 8:20 AM Signed Cardiac Rehabilitation [facility] Based Program Supervising Physician: Len Menendez Diagnosis: Aortic Valve Replacement Phase: 2 Monitor: Yes Session Number: 35 Today's exercise session was comprised of a warm-up, aerobic conditioning phase, aerobic cool-down, and free weight resistance training. Patient tolerated prescribed exercise workload. Tele SR-ST without ectopic beats. Vitals WNL for patient. No chest discomfort. No medication changes. This is a hospital based cardiac rehab program. Patient working towards exercise goals by increasing exercise intensity. Patient working towards education goal by attending education sessions in cardiac rehabilitation. Patient has verbalized understanding of Risk Factors education topic and the relation to disease managment. Patient's Daily Exercise Log will be scanned into TOPSEC once it is completed. These can be viewed by going under the Scanned Documents tab and looking for documents labeled Cardiac Rehabilitation. Daily Exercise Logs contain exercise data such as, but not limited to modality, intensity, duration and frequency of exercise, along with vital signs pre-, during, and post-exercise. Refer to patient's paper medical record for ECG rhythm strips, physician prescribed Individualized Treatment Plan, and education sessions covered. Katie Decker, Health Care Specialist Referring Provider: DEENA FRANCOIS [[id number]] Allergies As of Date: 12/30/2023 (No Active Allergies) Date Reviewed: 09/18/2023 Reviewed by: Pat Ye HUC - Fully Assessed Reason for Visit: Cardiac Rehab [3551] Primary Visit Diagnosis:S/P AVR (aortic valve replacement) [Z95.2] Prescriptions as of 12/30/2023 - lisinopril (ZESTRIL) 5 mg tablet Take 1 tablet by mouth once daily. - empagliflozin (JARDIANCE) 10 mg tablet Take 1 tablet by mouth daily with breakfast. - doxycycline (VIBRA-TABS) 100 mg tablet Take 1 tablet by mouth two times a day. - omeprazole (PRILOSEC) 40 mg capsule Take 1 capsule by mouth once daily. - aspirin, enteric coated (ASPIRIN, ENTERIC COATED) 81 mg EC tablet Take 1 tablet by mouth once daily. - atorvastatin (LIPITOR) 20 mg tablet Take 1 tablet by mouth daily at bedtime. - cetirizine (ZYRTEC) 10 mg tablet Take 1 tablet by mouth once daily as needed for cold/allergy symptoms. - acetaminophen (TYLENOL) 325 mg tablet Take 2 tablets by mouth every 6 hours as needed (for mild surgical pain). - furosemide (LASIX) 40 mg tablet Take 1 tablet by mouth once daily for 7 days. - metoprolol succinate ER (TOPROL XL) 100 mg Take 1.5 tablets by mouth daily with breakfast AND 1 tablet daily at bedtime. - docusate sodium (COLACE) 100 mg capsule Take 1 capsule by mouth two times a day. - MULTIVITAMIN TAB Take one(1) tablet daily. Problem List As Of Date 12/30/2023 Noted Resolved JOINT PAIN-UNSPEC [M25.50] 05/20/2006 10/03/2006 SPRAIN SHOULDER/ARM NOS [[id number]] 05/20/2006 10/03/2006 Complete rupture of rotator cuff [M75.120] 10/03/2006 Obesity (BMI 30-39.9) [E66.9] 02/16/2011 Special screening for malignant neoplasms, colo*03/13/2011 Nonrheumatic aortic valve stenosis [I35.0] 06/25/2023 Aortic root dilatation (HCC) [I77.810] 07/24/2023 Angina pectoris (HCC) [I20.9] 07/24/2023 Discharge planning issues [Z75.8] 07/24/2023 Encounter for support and coordination of trans*07/24/2023 Aortic stenosis due to bicuspid aortic valve [Q*07/29/2023 On mechanically assisted ventilation (HCC) [Z99*07/29/2023 Hypovolemia [E86.1] 07/29/2023 AI (aortic insufficiency) [I35.1] 07/29/2023 Hypotension [I95.9] 07/29/2023 Postoperative pain [G89.18] 07/29/2023 Aphasia [R47.01] 07/30/2023 Primary hypertension [I10] 07/30/2023 Hypervolemia [E87.70] 08/01/2023 Postoperative ileus (HCC) [K91.89, K56.7] 08/02/2023 Hyperlipidemia LDL goal <70 [E78.5] 08/03/2023 Gastroesophageal reflux disease without esophag*08/03/2023 ABLA (acute blood loss anemia) [D62] 08/03/2023 Thrombocytopenia (HCC) [D69.6] 08/03/2023 Hypertrophic cardiomyopathy (HCC) [I42.2] 09/18/2023 Obesity, Class I, BMI 30-34.9 [E66.9] 09/18/2023 Encounter Status:Closed by KATIE DECKER on 12/30/23 [facility] 12-27-2023 [facility] Office Visit (MIRI) HENSONMARTIN MODI ([id number]) 1955 M Date Time Provider Department 12/27/23 8:00 AM CARD REHAB PHASE 2 [facility] During your visit today, we recorded the following information about you: Josiah Suh, lease picker 12/27/2023 8:22 AM Signed Cardiac Rehabilitation [facility] Based [facility] Supervising Physician: Len Menendez Diagnosis: Aortic Valve Replacement Phase: 2 Monitor: Yes Session Number: 34 Today's exercise session was comprised of a warm-up, aerobic conditioning phase, aerobic cool-down, and free weight resistance training. Patient tolerated prescribed exercise workload. Tele SR-ST without ectopic beats. Vitals WNL for patient. No chest discomfort. No medication changes. This is a hospital based cardiac rehab program. Patient working towards exercise goals by increasing exercise duration. Patient working towards education goal by attending education sessions in cardiac rehabilitation. Patient has verbalized understanding of Sugar, fiber, Na+ education topic and the relation to disease managment. Patient's Daily Exercise Log will be scanned into TOPSEC once it is completed. These can be viewed by going under the Scanned Documents tab and looking for documents labeled Cardiac Rehabilitation. Daily Exercise Logs contain exercise data such as, but not limited to modality, intensity, duration and frequency of exercise, along with vital signs pre-, during, and post-exercise. Refer to patient's paper medical record for ECG rhythm strips, physician prescribed Individualized Treatment Plan, and education sessions covered. Josiah Suh, Health Care Specialist Referring Provider: DEENA FRANCOIS [[id number]] Allergies As of Date: 12/27/2023 (No Active Allergies) Date Reviewed: 09/18/2023 Reviewed by: Pat Ye HUC - Fully Assessed Reason for Visit: Cardiac Rehab [3551] Primary Visit Diagnosis:S/P AVR (aortic valve replacement) [Z95.2] Prescriptions as of 12/27/2023 - lisinopril (ZESTRIL) 5 mg tablet Take 1 tablet by mouth once daily. - empagliflozin (JARDIANCE) 10 mg tablet Take 1 tablet by mouth daily with breakfast. - doxycycline (VIBRA-TABS) 100 mg tablet Take 1 tablet by mouth two times a day. - omeprazole (PRILOSEC) 40 mg capsule Take 1 capsule by mouth once daily. - aspirin, enteric coated (ASPIRIN, ENTERIC COATED) 81 mg EC tablet Take 1 tablet by mouth once daily. - atorvastatin (LIPITOR) 20 mg tablet Take 1 tablet by mouth daily at bedtime. - cetirizine (ZYRTEC) 10 mg tablet Take 1 tablet by mouth once daily as needed for cold/allergy symptoms. - acetaminophen (TYLENOL) 325 mg tablet Take 2 tablets by mouth every 6 hours as needed (for mild surgical pain). - furosemide (LASIX) 40 mg tablet Take 1 tablet by mouth once daily for 7 days. - metoprolol succinate ER (TOPROL XL) 100 mg Take 1.5 tablets by mouth daily with breakfast AND 1 tablet daily at bedtime. - docusate sodium (COLACE) 100 mg capsule Take 1 capsule by mouth two times a day. - MULTIVITAMIN TAB Take one(1) tablet daily. Problem List As Of Date 12/27/2023 Noted Resolved JOINT PAIN-UNSPEC [M25.50] 05/20/2006 10/03/2006 SPRAIN SHOULDER/ARM NOS [[id number]] 05/20/2006 10/03/2006 Complete rupture of rotator cuff [M75.120] 10/03/2006 Obesity (BMI 30-39.9) [E66.9] 02/16/2011 Special screening for malignant neoplasms, colo*03/13/2011 Nonrheumatic aortic valve stenosis [I35.0] 06/25/2023 Aortic root dilatation (HCC) [I77.810] 07/24/2023 Angina pectoris (HCC) [I20.9] 07/24/2023 Discharge planning issues [Z75.8] 07/24/2023 Encounter for support and coordination of trans*07/24/2023 Aortic stenosis due to bicuspid aortic valve [Q*07/29/2023 On mechanically assisted ventilation (HCC) [Z99*07/29/2023 Hypovolemia [E86.1] 07/29/2023 AI (aortic insufficiency) [I35.1] 07/29/2023 Hypotension [I95.9] 07/29/2023 Postoperative pain [G89.18] 07/29/2023 Aphasia [R47.01] 07/30/2023 Primary hypertension [I10] 07/30/2023 Hypervolemia [E87.70] 08/01/2023 Postoperative ileus (HCC) [K91.89, K56.7] 08/02/2023 Hyperlipidemia LDL goal <70 [E78.5] 08/03/2023 Gastroesophageal reflux disease without esophag*08/03/2023 ABLA (acute blood loss anemia) [D62] 08/03/2023 Thrombocytopenia (HCC) [D69.6] 08/03/2023 Hypertrophic cardiomyopathy (HCC) [I42.2] 09/18/2023 Obesity, Class I, BMI 30-34.9 [E66.9] 09/18/2023 Encounter Status:Closed by JOSIAH SUH on 12/27/23 [facility] 12-25-2023 [facility] Office Visit (MIRI) MARTIN HENSON ([id number]) 1955 M Date Time Provider Department 12/25/23 8:00 AM CARD REHAB PHASE 2 [facility] During your visit today, we recorded the following information about you: Avelino Aburto, Health Care Specialist 12/25/2023 8:23 AM Signed Cardiac Rehabilitation [facility] Supervising Physician: Len Menendez Diagnosis: Aortic Valve Replacement Phase: 2 Monitor: Yes Session Number: 33 Today's exercise session was comprised of a warm-up, aerobic conditioning phase, aerobic cool-down, and free weight resistance training. Patient tolerated prescribed exercise workload. Tele SR-ST without ectopic beats. Vitals WNL for patient. No chest discomfort. No medication changes. This is a hospital based cardiac rehab program. Patient working towards exercise goals by sustaining exercise intensity and duration. Patient working towards education goal by attending education sessions in cardiac rehabilitation. Patient has verbalized understanding of portion control education topic and the relation to disease managment. Patient's Daily Exercise Log will be scanned into [employer]SEC once it is completed. These can be viewed by going under the Scanned Documents tab and looking for documents labeled Cardiac Rehabilitation. Daily Exercise Logs contain exercise data such as, but not limited to modality, intensity, duration and frequency of exercise, along with vital signs pre-, during, and post-exercise. Refer to patient's paper medical record for ECG rhythm strips, physician prescribed Individualized Treatment Plan, and education sessions covered. Avelino Aburto, Health Care Specialist Referring Provider: DEENA FRANCOIS [[id number]] Allergies As of Date: 12/25/2023 (No Active Allergies) Date Reviewed: 09/18/2023 Reviewed by: Pat Ye HUC - Fully Assessed Reason for Visit: Cardiac Rehab [[id number]] Primary Visit Diagnosis:S/P AVR (aortic valve replacement) [Z95.2] Prescriptions as of 12/25/2023 - lisinopril (ZESTRIL) 5 mg tablet Take 1 tablet by mouth once daily. - empagliflozin (JARDIANCE) 10 mg tablet Take 1 tablet by mouth daily with breakfast. - doxycycline (VIBRA-TABS) 100 mg tablet Take 1 tablet by mouth two times a day. - omeprazole (PRILOSEC) 40 mg capsule Take 1 capsule by mouth once daily. - aspirin, enteric coated (ASPIRIN, ENTERIC COATED) 81 mg EC tablet Take 1 tablet by mouth once daily. - atorvastatin (LIPITOR) 20 mg tablet Take 1 tablet by mouth daily at bedtime. - cetirizine (ZYRTEC) 10 mg tablet Take 1 tablet by mouth once daily as needed for cold/allergy symptoms. - acetaminophen (TYLENOL) 325 mg tablet Take 2 tablets by mouth every 6 hours as needed (for mild surgical pain). - furosemide (LASIX) 40 mg tablet Take 1 tablet by mouth once daily for 7 days. - metoprolol succinate ER (TOPROL XL) 100 mg Take 1.5 tablets by mouth daily with breakfast AND 1 tablet daily at bedtime. - docusate sodium (COLACE) 100 mg capsule Take 1 capsule by mouth two times a day. - MULTIVITAMIN TAB Take one(1) tablet daily. Problem List As Of Date 12/25/2023 Noted Resolved JOINT PAIN-UNSPEC [M25.50] 05/20/2006 10/03/2006 SPRAIN SHOULDER/ARM NOS [[id number]] 05/20/2006 10/03/2006 Complete rupture of rotator cuff [M75.120] 10/03/2006 Obesity (BMI 30-39.9) [E66.9] 02/16/2011 Special screening for malignant neoplasms, colo*03/13/2011 Nonrheumatic aortic valve stenosis [I35.0] 06/25/2023 Aortic root dilatation (HCC) [I77.810] 07/24/2023 Angina pectoris (HCC) [I20.9] 07/24/2023 Discharge planning issues [Z75.8] 07/24/2023 Encounter for support and coordination of trans*07/24/2023 Aortic stenosis due to bicuspid aortic valve [Q*07/29/2023 On mechanically assisted ventilation (HCC) [Z99*07/29/2023 Hypovolemia [E86.1] 07/29/2023 AI (aortic insufficiency) [I35.1] 07/29/2023 Hypotension [I95.9] 07/29/2023 Postoperative pain [G89.18] 07/29/2023 Aphasia [R47.01] 07/30/2023 Primary hypertension [I10] 07/30/2023 Hypervolemia [E87.70] 08/01/2023 Postoperative ileus (HCC) [K91.89, K56.7] 08/02/2023 Hyperlipidemia LDL goal <70 [E78.5] 08/03/2023 Gastroesophageal reflux disease without esophag*08/03/2023 ABLA (acute blood loss anemia) [D62] 08/03/2023 Thrombocytopenia (HCC) [D69.6] 08/03/2023 Hypertrophic cardiomyopathy (HCC) [I42.2] 09/18/2023 Obesity, Class I, BMI 30-34.9 [E66.9] 09/18/2023 Encounter Status:Closed by AVELINO ABURTO on 12/25/23 [facility]23 [facility] Office Visit (MIRI) MARTIN HENSON ([id number]) 1955 M Date Time Provider Department 12/23/23 8:00 AM CARD REHAB PHASE 2 [facility] During your visit today, we recorded the following information about you: Katie Decker, Health Care Specialist 12/23/2023 8:15 AM Signed Cardiac Rehabilitation [facility] Supervising Physician: Len Menendez Diagnosis: Aortic Valve Replacement Phase: 2 Monitor: Yes Session Number: 32 Today's exercise session was comprised of a warm-up, aerobic conditioning phase, aerobic cool-down, and free weight resistance training. Patient tolerated prescribed exercise workload. Tele SR-ST without ectopic beats. Vitals WNL for patient. No chest discomfort. No medication changes. This is a hospital based cardiac rehab program. Patient working towards exercise goals by sustaining exercise intensity and duration. Patient working towards education goal by attending education sessions in cardiac rehabilitation. Patient has verbalized understanding of Reading Food labels education topic and the relation to disease managment. Patient's Daily Exercise Log will be scanned into [employer]SEC once it is completed. These can be viewed by going under the Scanned Documents tab and looking for documents labeled Cardiac Rehabilitation. Daily Exercise Logs contain exercise data such as, but not limited to modality, intensity, duration and frequency of exercise, along with vital signs pre-, during, and post-exercise. Refer to patient's paper medical record for ECG rhythm strips, physician prescribed Individualized Treatment Plan, and education sessions covered. Katie Decker, Health Care Specialist Referring Provider: DEENA FRANCOIS [[id number]] Allergies As of Date: 12/23/2023 (No Active Allergies) Date Reviewed: 09/18/2023 Reviewed by: Pat Ye HUC - Fully Assessed Reason for Visit: Cardiac Rehab [[id number]] Primary Visit Diagnosis:S/P AVR (aortic valve replacement) [Z95.2] Prescriptions as of 12/23/2023 - lisinopril (ZESTRIL) 5 mg tablet Take 1 tablet by mouth once daily. - empagliflozin (JARDIANCE) 10 mg tablet Take 1 tablet by mouth daily with breakfast. - doxycycline (VIBRA-TABS) 100 mg tablet Take 1 tablet by mouth two times a day. - omeprazole (PRILOSEC) 40 mg capsule Take 1 capsule by mouth once daily. - aspirin, enteric coated (ASPIRIN, ENTERIC COATED) 81 mg EC tablet Take 1 tablet by mouth once daily. - atorvastatin (LIPITOR) 20 mg tablet Take 1 tablet by mouth daily at bedtime. - cetirizine (ZYRTEC) 10 mg tablet Take 1 tablet by mouth once daily as needed for cold/allergy symptoms. - acetaminophen (TYLENOL) 325 mg tablet Take 2 tablets by mouth every 6 hours as needed (for mild surgical pain). - furosemide (LASIX) 40 mg tablet Take 1 tablet by mouth once daily for 7 days. - metoprolol succinate ER (TOPROL XL) 100 mg Take 1.5 tablets by mouth daily with breakfast AND 1 tablet daily at bedtime. - docusate sodium (COLACE) 100 mg capsule Take 1 capsule by mouth two times a day. - MULTIVITAMIN TAB Take one(1) tablet daily. Problem List As Of Date 12/23/2023 Noted Resolved JOINT PAIN-UNSPEC [M25.50] 05/20/2006 10/03/2006 SPRAIN SHOULDER/ARM NOS [[id number]] 05/20/2006 10/03/2006 Complete rupture of rotator cuff [M75.120] 10/03/2006 Obesity (BMI 30-39.9) [E66.9] 02/16/2011 Special screening for malignant neoplasms, colo*03/13/2011 Nonrheumatic aortic valve stenosis [I35.0] 06/25/2023 Aortic root dilatation (HCC) [I77.810] 07/24/2023 Angina pectoris (HCC) [I20.9] 07/24/2023 Discharge planning issues [Z75.8] 07/24/2023 Encounter for support and coordination of trans*07/24/2023 Aortic stenosis due to bicuspid aortic valve [Q*07/29/2023 On mechanically assisted ventilation (HCC) [Z99*07/29/2023 Hypovolemia [E86.1] 07/29/2023 AI (aortic insufficiency) [I35.1] 07/29/2023 Hypotension [I95.9] 07/29/2023 Postoperative pain [G89.18] 07/29/2023 Aphasia [R47.01] 07/30/2023 Primary hypertension [I10] 07/30/2023 Hypervolemia [E87.70] 08/01/2023 Postoperative ileus (HCC) [K91.89, K56.7] 08/02/2023 Hyperlipidemia LDL goal <70 [E78.5] 08/03/2023 Gastroesophageal reflux disease without esophag*08/03/2023 ABLA (acute blood loss anemia) [D62] 08/03/2023 Thrombocytopenia (HCC) [D69.6] 08/03/2023 Hypertrophic cardiomyopathy (HCC) [I42.2] 09/18/2023 Obesity, Class I, BMI 30-34.9 [E66.9] 09/18/2023 Encounter Status:Closed by KATIE DECKER on 12/23/23 [facility] 12-20-2023 [facility] Office Visit (MIRI) MARTIN HENSON ([id number]) 1955 M Date Time Provider Department 12/20/23 8:00 AM CARD REHAB PHASE 2 [facility] During your visit today, we recorded the following information about you: Josiah Suh, lease picker 12/20/2023 8:25 AM Signed Cardiac Rehabilitation Hospital Based Program Supervising Physician: Len Menendez Diagnosis: Aortic Valve Replacement Phase: 2 Monitor: Yes Session Number: 31 Today's exercise session was comprised of a warm-up, aerobic conditioning phase, aerobic cool-down, and free weight resistance training. Patient tolerated prescribed exercise workload. Tele SR-ST without ectopic beats. Vitals WNL for patient. No chest discomfort. No medication changes. This is a hospital based cardiac rehab program. Patient working towards exercise goals by increasing exercise intensity and duration. Patient working towards education goal by attending education sessions in cardiac rehabilitation. Patient has verbalized understanding of Mediterranean Diet education topic and the relation to disease managment. Patient's Daily Exercise Log will be scanned into [employer]SEC once it is completed. These can be viewed by going under the Scanned Documents tab and looking for documents labeled Cardiac Rehabilitation. Daily Exercise Logs contain exercise data such as, but not limited to modality, intensity, duration and frequency of exercise, along with vital signs pre-, during, and post-exercise. Refer to patient's paper medical record for ECG rhythm strips, physician prescribed Individualized Treatment Plan, and education sessions covered. Josiah Suh, Health Care Specialist Referring Provider: DEENA FRANCOIS [[id number]] Allergies As of Date: 12/20/2023 (No Active Allergies) Date Reviewed: 09/18/2023 Reviewed by: Pat Ye HUC - Fully Assessed Reason for Visit: Cardiac Rehab [[id number]] Primary Visit Diagnosis:S/P AVR (aortic valve replacement) [Z95.2] Prescriptions as of 12/20/2023 - lisinopril (ZESTRIL) 5 mg tablet Take 1 tablet by mouth once daily. - empagliflozin (JARDIANCE) 10 mg tablet Take 1 tablet by mouth daily with breakfast. - doxycycline (VIBRA-TABS) 100 mg tablet Take 1 tablet by mouth two times a day. - omeprazole (PRILOSEC) 40 mg capsule Take 1 capsule by mouth once daily. - aspirin, enteric coated (ASPIRIN, ENTERIC COATED) 81 mg EC tablet Take 1 tablet by mouth once daily. - atorvastatin (LIPITOR) 20 mg tablet Take 1 tablet by mouth daily at bedtime. - cetirizine (ZYRTEC) 10 mg tablet Take 1 tablet by mouth once daily as needed for cold/allergy symptoms. - acetaminophen (TYLENOL) 325 mg tablet Take 2 tablets by mouth every 6 hours as needed (for mild surgical pain). - furosemide (LASIX) 40 mg tablet Take 1 tablet by mouth once daily for 7 days. - metoprolol succinate ER (TOPROL XL) 100 mg Take 1.5 tablets by mouth daily with breakfast AND 1 tablet daily at bedtime. - docusate sodium (COLACE) 100 mg capsule Take 1 capsule by mouth two times a day. - MULTIVITAMIN TAB Take one(1) tablet daily. Problem List As Of Date 12/20/2023 Noted Resolved JOINT PAIN-UNSPEC [M25.50] 05/20/2006 10/03/2006 SPRAIN SHOULDER/ARM NOS [[id number]] 05/20/2006 10/03/2006 Complete rupture of rotator cuff [M75.120] 10/03/2006 Obesity (BMI 30-39.9) [E66.9] 02/16/2011 Special screening for malignant neoplasms, colo*03/13/2011 Nonrheumatic aortic valve stenosis [I35.0] 06/25/2023 Aortic root dilatation (HCC) [I77.810] 07/24/2023 Angina pectoris (HCC) [I20.9] 07/24/2023 Discharge planning issues [Z75.8] 07/24/2023 Encounter for support and coordination of trans*07/24/2023 Aortic stenosis due to bicuspid aortic valve [Q*07/29/2023 On mechanically assisted ventilation (HCC) [Z99*07/29/2023 Hypovolemia [E86.1] 07/29/2023 AI (aortic insufficiency) [I35.1] 07/29/2023 Hypotension [I95.9] 07/29/2023 Postoperative pain [G89.18] 07/29/2023 Aphasia [R47.01] 07/30/2023 Primary hypertension [I10] 07/30/2023 Hypervolemia [E87.70] 08/01/2023 Postoperative ileus (HCC) [K91.89, K56.7] 08/02/2023 Hyperlipidemia LDL goal <70 [E78.5] 08/03/2023 Gastroesophageal reflux disease without esophag*08/03/2023 ABLA (acute blood loss anemia) [D62] 08/03/2023 Thrombocytopenia (HCC) [D69.6] 08/03/2023 Hypertrophic cardiomyopathy (HCC) [I42.2] 09/18/2023 Obesity, Class I, BMI 30-34.9 [E66.9] 09/18/2023 Encounter Status:Closed by JOSIAH SUH on 12/20/23 [facility] 12-18-2023 [facility] Office Visit (MIRI) MARTIN HENSON ([id number]) 1955 M Date Time Provider Department 12/18/23 8:00 AM CARD REHAB PHASE 2 [facility] During your visit today, we recorded the following information about you: Avelino Aburto, Health Care Specialist 12/18/2023 8:22 AM Signed Cardiac Rehabilitation Hospital Based Program Supervising Physician: Len Menendez Diagnosis: Aortic Valve Replacement Phase: 2 Monitor: Yes Session Number: 30 Today's exercise session was comprised of a warm-up, aerobic conditioning phase, aerobic cool-down, and free weight resistance training. Patient tolerated prescribed exercise workload. Tele SR-ST without ectopic beats. Vitals WNL for patient. No chest discomfort. No medication changes. This is a hospital based cardiac rehab program. Patient working towards exercise goals by sustaining exercise intensity and duration. Patient working towards education goal by attending education sessions in cardiac rehabilitation. Patient has verbalized understanding of CHF education topic and the relation to disease managment. Patient's Daily Exercise Log will be scanned into [employer]SEC once it is completed. These can be viewed by going under the Scanned Documents tab and looking for documents labeled Cardiac Rehabilitation. Daily Exercise Logs contain exercise data such as, but not limited to modality, intensity, duration and frequency of exercise, along with vital signs pre-, during, and post-exercise. Refer to patient's paper medical record for ECG rhythm strips, physician prescribed Individualized Treatment Plan, and education sessions covered. Avelino Aburto, Health Care Specialist Referring Provider: DEENA FRANCOIS [[id number]] Allergies As of Date: 12/18/2023 (No Active Allergies) Date Reviewed: 09/18/2023 Reviewed by: Pat Ye HUC - Fully Assessed Reason for Visit: Cardiac Rehab [[id number]] Primary Visit Diagnosis:S/P AVR (aortic valve replacement) [Z95.2] Prescriptions as of 12/18/2023 - lisinopril (ZESTRIL) 5 mg tablet Take 1 tablet by mouth once daily. - empagliflozin (JARDIANCE) 10 mg tablet Take 1 tablet by mouth daily with breakfast. - doxycycline (VIBRA-TABS) 100 mg tablet Take 1 tablet by mouth two times a day. - omeprazole (PRILOSEC) 40 mg capsule Take 1 capsule by mouth once daily. - aspirin, enteric coated (ASPIRIN, ENTERIC COATED) 81 mg EC tablet Take 1 tablet by mouth once daily. - atorvastatin (LIPITOR) 20 mg tablet Take 1 tablet by mouth daily at bedtime. - cetirizine (ZYRTEC) 10 mg tablet Take 1 tablet by mouth once daily as needed for cold/allergy symptoms. - acetaminophen (TYLENOL) 325 mg tablet Take 2 tablets by mouth every 6 hours as needed (for mild surgical pain). - furosemide (LASIX) 40 mg tablet Take 1 tablet by mouth once daily for 7 days. - metoprolol succinate ER (TOPROL XL) 100 mg Take 1.5 tablets by mouth daily with breakfast AND 1 tablet daily at bedtime. - docusate sodium (COLACE) 100 mg capsule Take 1 capsule by mouth two times a day. - MULTIVITAMIN TAB Take one(1) tablet daily. Problem List As Of Date 12/18/2023 Noted Resolved JOINT PAIN-UNSPEC [M25.50] 05/20/2006 10/03/2006 SPRAIN SHOULDER/ARM NOS [[id number]] 05/20/2006 10/03/2006 Complete rupture of rotator cuff [M75.120] 10/03/2006 Obesity (BMI 30-39.9) [E66.9] 02/16/2011 Special screening for malignant neoplasms, colo*03/13/2011 Nonrheumatic aortic valve stenosis [I35.0] 06/25/2023 Aortic root dilatation (HCC) [I77.810] 07/24/2023 Angina pectoris (HCC) [I20.9] 07/24/2023 Discharge planning issues [Z75.8] 07/24/2023 Encounter for support and coordination of trans*07/24/2023 Aortic stenosis due to bicuspid aortic valve [Q*07/29/2023 On mechanically assisted ventilation (HCC) [Z99*07/29/2023 Hypovolemia [E86.1] 07/29/2023 AI (aortic insufficiency) [I35.1] 07/29/2023 Hypotension [I95.9] 07/29/2023 Postoperative pain [G89.18] 07/29/2023 Aphasia [R47.01] 07/30/2023 Primary hypertension [I10] 07/30/2023 Hypervolemia [E87.70] 08/01/2023 Postoperative ileus (HCC) [K91.89, K56.7] 08/02/2023 Hyperlipidemia LDL goal <70 [E78.5] 08/03/2023 Gastroesophageal reflux disease without esophag*08/03/2023 ABLA (acute blood loss anemia) [D62] 08/03/2023 Thrombocytopenia (HCC) [D69.6] 08/03/2023 Hypertrophic cardiomyopathy (HCC) [I42.2] 09/18/2023 Obesity, Class I, BMI 30-34.9 [E66.9] 09/18/2023 Encounter Status:Closed by AVELINO ABURTO on 12/18/23 [facility] 12-16-2023 [facility] Office Visit (MIRI) MARTIN HENSON ([id number]) 1955 M Date Time Provider Department 12/16/23 8:00 AM CARD REHAB PHASE 2 [facility] During your visit today, we recorded the following information about you: Katie Decker, Health Care Specialist 12/16/2023 8:26 AM Signed Cardiac Rehabilitation Hospital [facility] Program Supervising Physician: Len Menendez Diagnosis: Aortic Valve Replacement Phase: 2 Monitor: Yes Session Number: 29 Today's exercise session was comprised of a warm-up, aerobic conditioning phase, aerobic cool-down, and free weight resistance training. Patient tolerated prescribed exercise workload. Tele SR-ST without ectopic beats. Vitals WNL for patient. No chest discomfort. No medication changes. This is a hospital based cardiac rehab program. Patient working towards exercise goals by increasing exercise intensity. Patient working towards education goal by attending education sessions in cardiac rehabilitation. Patient has verbalized understanding of Heart Valves education topic and the relation to disease managment. Patient's Daily Exercise Log will be scanned into [employer]SEC once it is completed. These can be viewed by going under the Scanned Documents tab and looking for documents labeled Cardiac Rehabilitation. Daily Exercise Logs contain exercise data such as, but not limited to modality, intensity, duration and frequency of exercise, along with vital signs pre-, during, and post-exercise. Refer to patient's paper medical record for ECG rhythm strips, physician prescribed Individualized Treatment Plan, and education sessions covered. Katie Decker, Health Care Specialist Referring Provider: DEENA FRANCOIS [[id number]] Allergies As of Date: 12/16/2023 (No Active Allergies) Date Reviewed: 09/18/2023 Reviewed by: Pat Ye HUC - Fully Assessed Reason for Visit: Cardiac Rehab [3551] Primary Visit Diagnosis:S/P AVR (aortic valve replacement) [Z95.2] Prescriptions as of 12/16/2023 - lisinopril (ZESTRIL) 5 mg tablet Take 1 tablet by mouth once daily. - empagliflozin (JARDIANCE) 10 mg tablet Take 1 tablet by mouth daily with breakfast. - doxycycline (VIBRA-TABS) 100 mg tablet Take 1 tablet by mouth two times a day. - omeprazole (PRILOSEC) 40 mg capsule Take 1 capsule by mouth once daily. - aspirin, enteric coated (ASPIRIN, ENTERIC COATED) 81 mg EC tablet Take 1 tablet by mouth once daily. - atorvastatin (LIPITOR) 20 mg tablet Take 1 tablet by mouth daily at bedtime. - cetirizine (ZYRTEC) 10 mg tablet Take 1 tablet by mouth once daily as needed for cold/allergy symptoms. - acetaminophen (TYLENOL) 325 mg tablet Take 2 tablets by mouth every 6 hours as needed (for mild surgical pain). - furosemide (LASIX) 40 mg tablet Take 1 tablet by mouth once daily for 7 days. - metoprolol succinate ER (TOPROL XL) 100 mg Take 1.5 tablets by mouth daily with breakfast AND 1 tablet daily at bedtime. - docusate sodium (COLACE) 100 mg capsule Take 1 capsule by mouth two times a day. - MULTIVITAMIN TAB Take one(1) tablet daily. Problem List As Of Date 12/16/2023 Noted Resolved JOINT PAIN-UNSPEC [M25.50] 05/20/2006 10/03/2006 SPRAIN SHOULDER/ARM NOS [[id number]] 05/20/2006 10/03/2006 Complete rupture of rotator cuff [M75.120] 10/03/2006 Obesity (BMI 30-39.9) [E66.9] 02/16/2011 Special screening for malignant neoplasms, colo*03/13/2011 Nonrheumatic aortic valve stenosis [I35.0] 06/25/2023 Aortic root dilatation (HCC) [I77.810] 07/24/2023 Angina pectoris (HCC) [I20.9] 07/24/2023 Discharge planning issues [Z75.8] 07/24/2023 Encounter for support and coordination of trans*07/24/2023 Aortic stenosis due to bicuspid aortic valve [Q*07/29/2023 On mechanically assisted ventilation (HCC) [Z99*07/29/2023 Hypovolemia [E86.1] 07/29/2023 AI (aortic insufficiency) [I35.1] 07/29/2023 Hypotension [I95.9] 07/29/2023 Postoperative pain [G89.18] 07/29/2023 Aphasia [R47.01] 07/30/2023 Primary hypertension [I10] 07/30/2023 Hypervolemia [E87.70] 08/01/2023 Postoperative ileus (HCC) [K91.89, K56.7] 08/02/2023 Hyperlipidemia LDL goal <70 [E78.5] 08/03/2023 Gastroesophageal reflux disease without esophag*08/03/2023 ABLA (acute blood loss anemia) [D62] 08/03/2023 Thrombocytopenia (HCC) [D69.6] 08/03/2023 Hypertrophic cardiomyopathy (HCC) [I42.2] 09/18/2023 Obesity, Class I, BMI 30-34.9 [E66.9] 09/18/2023 Encounter Status:Closed by KATIE DECKER on 12/16/23 [facility] 12-13-2023 [facility] Office Visit (MIRI) MARTIN HENSON ([id number]) 1955 M Date Time Provider Department 12/13/23 8:00 AM CARD REHAB PHASE 2 [facility] During your visit today, we recorded the following information about you: Josiah Suh, lease picker 12/13/2023 8:29 AM Signed Cardiac Rehabilitation Hospital Based Program Supervising Physician: Len Menendez Diagnosis: Aortic Valve Replacement Phase: 2 Monitor: Yes Session Number: 28 Today's exercise session was comprised of a warm-up, aerobic conditioning phase, aerobic cool-down, and free weight resistance training. Patient tolerated prescribed exercise workload. Tele SR-ST without ectopic beats. Vitals WNL for patient. No chest discomfort. No medication changes. This is a hospital based cardiac rehab program. Patient working towards exercise goals by increasing exercise intensity. Patient working towards education goal by attending education sessions in cardiac rehabilitation. Patient has verbalized understanding of CA, angina, NTG education topic and the relation to disease managment. Patient's Daily Exercise Log will be scanned into [employer]SEC once it is completed. These can be viewed by going under the Scanned Documents tab and looking for documents labeled Cardiac Rehabilitation. Daily Exercise Logs contain exercise data such as, but not limited to modality, intensity, duration and frequency of exercise, along with vital signs pre-, during, and post-exercise. Refer to patient's paper medical record for ECG rhythm strips, physician prescribed Individualized Treatment Plan, and education sessions covered. Josiah Suh, Health Care Specialist Referring Provider: DEENA FRANCOIS [[id number]] Allergies As of Date: 12/13/2023 (No Active Allergies) Date Reviewed: 09/18/2023 Reviewed by: Pat Ye HUC - Fully Assessed Reason for Visit: Cardiac Rehab [3551] Primary Visit Diagnosis:S/P AVR (aortic valve replacement) [Z95.2] Prescriptions as of 12/13/2023 - lisinopril (ZESTRIL) 5 mg tablet Take 1 tablet by mouth once daily. - empagliflozin (JARDIANCE) 10 mg tablet Take 1 tablet by mouth daily with breakfast. - doxycycline (VIBRA-TABS) 100 mg tablet Take 1 tablet by mouth two times a day. - omeprazole (PRILOSEC) 40 mg capsule Take 1 capsule by mouth once daily. - aspirin, enteric coated (ASPIRIN, ENTERIC COATED) 81 mg EC tablet Take 1 tablet by mouth once daily. - atorvastatin (LIPITOR) 20 mg tablet Take 1 tablet by mouth daily at bedtime. - cetirizine (ZYRTEC) 10 mg tablet Take 1 tablet by mouth once daily as needed for cold/allergy symptoms. - acetaminophen (TYLENOL) 325 mg tablet Take 2 tablets by mouth every 6 hours as needed (for mild surgical pain). - furosemide (LASIX) 40 mg tablet Take 1 tablet by mouth once daily for 7 days. - metoprolol succinate ER (TOPROL XL) 100 mg Take 1.5 tablets by mouth daily with breakfast AND 1 tablet daily at bedtime. - docusate sodium (COLACE) 100 mg capsule Take 1 capsule by mouth two times a day. - MULTIVITAMIN TAB Take one(1) tablet daily. Problem List As Of Date 12/13/2023 Noted Resolved JOINT PAIN-UNSPEC [M25.50] 05/20/2006 10/03/2006 SPRAIN SHOULDER/ARM NOS [[id number]] 05/20/2006 10/03/2006 Complete rupture of rotator cuff [M75.120] 10/03/2006 Obesity (BMI 30-39.9) [E66.9] 02/16/2011 Special screening for malignant neoplasms, colo*03/13/2011 Nonrheumatic aortic valve stenosis [I35.0] 06/25/2023 Aortic root dilatation (HCC) [I77.810] 07/24/2023 Angina pectoris (HCC) [I20.9] 07/24/2023 Discharge planning issues [Z75.8] 07/24/2023 Encounter for support and coordination of trans*07/24/2023 Aortic stenosis due to bicuspid aortic valve [Q*07/29/2023 On mechanically assisted ventilation (HCC) [Z99*07/29/2023 Hypovolemia [E86.1] 07/29/2023 AI (aortic insufficiency) [I35.1] 07/29/2023 Hypotension [I95.9] 07/29/2023 Postoperative pain [G89.18] 07/29/2023 Aphasia [R47.01] 07/30/2023 Primary hypertension [I10] 07/30/2023 Hypervolemia [E87.70] 08/01/2023 Postoperative ileus (HCC) [K91.89, K56.7] 08/02/2023 Hyperlipidemia LDL goal <70 [E78.5] 08/03/2023 Gastroesophageal reflux disease without esophag*08/03/2023 ABLA (acute blood loss anemia) [D62] 08/03/2023 Thrombocytopenia (HCC) [D69.6] 08/03/2023 Hypertrophic cardiomyopathy (HCC) [I42.2] 09/18/2023 Obesity, Class I, BMI 30-34.9 [E66.9] 09/18/2023 Encounter Status:Closed by JOSIAH SUH on 12/13/23 [facility] 12-11-2023 [facility] Office Visit (MIRI) MARTIN HENSON ([id number]) 1955 M Date Time Provider Department 12/11/23 8:00 AM CARD REHAB PHASE 2 [facility] During your visit today, we recorded the following information about you: Avelino Aburto, Health Care Specialist 12/11/2023 8:23 AM Signed Cardiac Rehabilitation Hospital Based Program Supervising Physician: Len Menendez Diagnosis: Aortic Valve Replacement Phase: 2 Monitor: Yes Session Number: 27 Today's exercise session was comprised of a warm-up, aerobic conditioning phase, aerobic cool-down, and free weight resistance training. Patient tolerated prescribed exercise workload. Tele SR-ST without ectopic beats. Vitals WNL for patient. No chest discomfort. No medication changes. This is a hospital based cardiac rehab program. Patient working towards exercise goals by increasing exercise intensity. Patient working towards education goal by attending education sessions in cardiac rehabilitation. Patient has verbalized understanding of CAD education topic and the relation to disease managment. Patient's Daily Exercise Log will be scanned into [employer]SEC once it is completed. These can be viewed by going under the Scanned Documents tab and looking for documents labeled Cardiac Rehabilitation. Daily Exercise Logs contain exercise data such as, but not limited to modality, intensity, duration and frequency of exercise, along with vital signs pre-, during, and post-exercise. Refer to patient's paper medical record for ECG rhythm strips, physician prescribed Individualized Treatment Plan, and education sessions covered. Avelino Aburto, Health Care Specialist Referring Provider: DEENA FRANCOIS [[id number]] Allergies As of Date: 12/11/2023 (No Active Allergies) Date Reviewed: 09/18/2023 Reviewed by: Pat Ye HUC - Fully Assessed Reason for Visit: Cardiac Rehab [3551] Primary Visit Diagnosis:S/P AVR (aortic valve replacement) [Z95.2] Prescriptions as of 12/11/2023 - lisinopril (ZESTRIL) 5 mg tablet Take 1 tablet by mouth once daily. - empagliflozin (JARDIANCE) 10 mg tablet Take 1 tablet by mouth daily with breakfast. - doxycycline (VIBRA-TABS) 100 mg tablet Take 1 tablet by mouth two times a day. - omeprazole (PRILOSEC) 40 mg capsule Take 1 capsule by mouth once daily. - aspirin, enteric coated (ASPIRIN, ENTERIC COATED) 81 mg EC tablet Take 1 tablet by mouth once daily. - atorvastatin (LIPITOR) 20 mg tablet Take 1 tablet by mouth daily at bedtime. - cetirizine (ZYRTEC) 10 mg tablet Take 1 tablet by mouth once daily as needed for cold/allergy symptoms. - acetaminophen (TYLENOL) 325 mg tablet Take 2 tablets by mouth every 6 hours as needed (for mild surgical pain). - furosemide (LASIX) 40 mg tablet Take 1 tablet by mouth once daily for 7 days. - metoprolol succinate ER (TOPROL XL) 100 mg Take 1.5 tablets by mouth daily with breakfast AND 1 tablet daily at bedtime. - docusate sodium (COLACE) 100 mg capsule Take 1 capsule by mouth two times a day. - MULTIVITAMIN TAB Take one(1) tablet daily. Problem List As Of Date 12/11/2023 Noted Resolved JOINT PAIN-UNSPEC [M25.50] 05/20/2006 10/03/2006 SPRAIN SHOULDER/ARM NOS [[id number]] 05/20/2006 10/03/2006 Complete rupture of rotator cuff [M75.120] 10/03/2006 Obesity (BMI 30-39.9) [E66.9] 02/16/2011 Special screening for malignant neoplasms, colo*03/13/2011 Nonrheumatic aortic valve stenosis [I35.0] 06/25/2023 Aortic root dilatation (HCC) [I77.810] 07/24/2023 Angina pectoris (HCC) [I20.9] 07/24/2023 Discharge planning issues [Z75.8] 07/24/2023 Encounter for support and coordination of trans*07/24/2023 Aortic stenosis due to bicuspid aortic valve [Q*07/29/2023 On mechanically assisted ventilation (HCC) [Z99*07/29/2023 Hypovolemia [E86.1] 07/29/2023 AI (aortic insufficiency) [I35.1] 07/29/2023 Hypotension [I95.9] 07/29/2023 Postoperative pain [G89.18] 07/29/2023 Aphasia [R47.01] 07/30/2023 Primary hypertension [I10] 07/30/2023 Hypervolemia [E87.70] 08/01/2023 Postoperative ileus (HCC) [K91.89, K56.7] 08/02/2023 Hyperlipidemia LDL goal <70 [E78.5] 08/03/2023 Gastroesophageal reflux disease without esophag*08/03/2023 ABLA (acute blood loss anemia) [D62] 08/03/2023 Thrombocytopenia (HCC) [D69.6] 08/03/2023 Hypertrophic cardiomyopathy (HCC) [I42.2] 09/18/2023 Obesity, Class I, BMI 30-34.9 [E66.9] 09/18/2023 Encounter Status:Closed by AVELINO [facility]UR[facility] Office Visit (MIRI) MARTIN HENSON ([id number]) 1955 M Date Time Provider Department 12/09/23 8:00 AM CARD REHAB PHASE 2 [facility] During your visit today, we recorded the following information about you: Katie Decker, Health Care Specialist 12/09/2023 8:22 AM Signed Cardiac Rehabilitation Hospital Based Program Supervising Physician: Len Menendez Diagnosis: Aortic Valve Replacement Phase: 2 Monitor: Yes Session Number: 26 Today's exercise session was comprised of a warm-up, aerobic conditioning phase, aerobic cool-down, and free weight resistance training. Patient tolerated prescribed exercise workload. Tele SR-ST without ectopic beats. Vitals WNL for patient. No chest discomfort. No medication changes. This is a hospital based cardiac rehab program. Patient working towards exercise goals by sustaining exercise intensity and duration. Patient working towards education goal by attending education sessions in cardiac rehabilitation. Patient has verbalized understanding of [facility] of the Heart education topic and the relation to disease managment. Patient's Daily Exercise Log will be scanned into TOPSEC once it is completed. These can be viewed by going under the Scanned Documents tab and looking for documents labeled Cardiac Rehabilitation. Daily Exercise Logs contain exercise data such as, but not limited to modality, intensity, duration and frequency of exercise, along with vital signs pre-, during, and post-exercise. Refer to patient's paper medical record for ECG rhythm strips, physician prescribed Individualized Treatment Plan, and education sessions covered. Katie Decker, Health Care Specialist Referring Provider: DEENA FRANCOIS [[id number]] Allergies As of Date: 12/09/2023 (No Active Allergies) Date Reviewed: 09/18/2023 Reviewed by: Pat Ye HUC - Fully Assessed Reason for Visit: Cardiac Rehab [3551] Primary Visit Diagnosis:S/P AVR (aortic valve replacement) [Z95.2] Prescriptions as of 12/09/2023 - lisinopril (ZESTRIL) 5 mg tablet Take 1 tablet by mouth once daily. - empagliflozin (JARDIANCE) 10 mg tablet Take 1 tablet by mouth daily with breakfast. - doxycycline (VIBRA-TABS) 100 mg tablet Take 1 tablet by mouth two times a day. - omeprazole (PRILOSEC) 40 mg capsule Take 1 capsule by mouth once daily. - aspirin, enteric coated (ASPIRIN, ENTERIC COATED) 81 mg EC tablet Take 1 tablet by mouth once daily. - atorvastatin (LIPITOR) 20 mg tablet Take 1 tablet by mouth daily at bedtime. - cetirizine (ZYRTEC) 10 mg tablet Take 1 tablet by mouth once daily as needed for cold/allergy symptoms. - acetaminophen (TYLENOL) 325 mg tablet Take 2 tablets by mouth every 6 hours as needed (for mild surgical pain). - furosemide (LASIX) 40 mg tablet Take 1 tablet by mouth once daily for 7 days. - metoprolol succinate ER (TOPROL XL) 100 mg Take 1.5 tablets by mouth daily with breakfast AND 1 tablet daily at bedtime. - docusate sodium (COLACE) 100 mg capsule Take 1 capsule by mouth two times a day. - MULTIVITAMIN TAB Take one(1) tablet daily. Problem List As Of Date 12/09/2023 Noted Resolved JOINT PAIN-UNSPEC [M25.50] 05/20/2006 10/03/2006 SPRAIN SHOULDER/ARM NOS [[id number]] 05/20/2006 10/03/2006 Complete rupture of rotator cuff [M75.120] 10/03/2006 Obesity (BMI 30-39.9) [E66.9] 02/16/2011 Special screening for malignant neoplasms, colo*03/13/2011 Nonrheumatic aortic valve stenosis [I35.0] 06/25/2023 Aortic root dilatation (HCC) [I77.810] 07/24/2023 Angina pectoris (HCC) [I20.9] 07/24/2023 Discharge planning issues [Z75.8] 07/24/2023 Encounter for support and coordination of trans*07/24/2023 Aortic stenosis due to bicuspid aortic valve [Q*07/29/2023 On mechanically assisted ventilation (HCC) [Z99*07/29/2023 Hypovolemia [E86.1] 07/29/2023 AI (aortic insufficiency) [I35.1] 07/29/2023 Hypotension [I95.9] 07/29/2023 Postoperative pain [G89.18] 07/29/2023 Aphasia [R47.01] 07/30/2023 Primary hypertension [I10] 07/30/2023 Hypervolemia [E87.70] 08/01/2023 Postoperative ileus (HCC) [K91.89, K56.7] 08/02/2023 Hyperlipidemia LDL goal <70 [E78.5] 08/03/2023 Gastroesophageal reflux disease without esophag*08/03/2023 ABLA (acute blood loss anemia) [D62] 08/03/2023 Thrombocytopenia (HCC) [D69.6] 08/03/2023 Hypertrophic cardiomyopathy (HCC) [I42.2] 09/18/2023 Obesity, Class I, BMI 30-34.9 [E66.9] 09/18/2023 Encounter Status:Closed by KATIE DECKER on [facility]09[facility] Office Visit (MIRI) MARTIN HENSON ([id number]) 1955 M Date Time Provider Department 12/06/23 8:00 AM CARD REHAB PHASE 2 [facility] During your visit today, we recorded the following information about you: Pulse Blood pressure Weight 72/minute 120/78 110.7 kg Josiah Suh, lease picker 12/06/2023 8:27 AM Signed Cardiac Rehabilitation Hospital Based Program Supervising Physician: Len Menendez Diagnosis: Aortic Valve Replacement Phase: 2 Monitor: Yes Session Number: 25 Today's exercise session was comprised of a warm-up, aerobic conditioning phase, aerobic cool-down, and free weight resistance training. Patient tolerated prescribed exercise workload. Tele SR-ST without ectopic beats. Vitals WNL for patient. No chest discomfort. No medication changes. This is a hospital based cardiac rehab program. Patient working towards exercise goals by sustaining exercise intensity and duration. Patient working towards education goal by attending education sessions in cardiac rehabilitation. Patient has verbalized understanding of Advanced Direct[employer] education topic and the relation to disease managment. Patient's Daily Exercise Log will be scanned into TOPSEC once it is completed. These can be viewed by going under the Scanned Documents tab and looking for documents labeled Cardiac Rehabilitation. Daily Exercise Logs contain exercise data such as, but not limited to modality, intensity, duration and frequency of exercise, along with vital signs pre-, during, and post-exercise. Refer to patient's paper medical record for ECG rhythm strips, physician prescribed Individualized Treatment Plan, and education sessions covered. Josiah Suh, Health Care Specialist [facility] [place] [facility] Department of Cardiovascular Medicine 30 DAY Assessment for Cardiac Rehab Martin Henson 12/03/2023 CHIEF COMPLAINT: Martin Henson is a 68 year old male seen today. Patient presents with: Cardiac Rehab: 60 day assessment HISTORY OF PRESENT ILLNESS: Aortic Valve Replacement PAST MEDICAL HISTORY Diagnosis Date Aortic stenosis Bicuspid aortic valve Hemorrhoids HLD (hyperlipidemia) HTN (hypertension) Primary cardiomyopathy (HCC) PAST SURGICAL HISTORY Procedure Laterality Date ARTHROPLASTY GLENOHUMRL JT HEMIARTHROPLASTY 07/2006 Arthroplasty, shoulder: torn rotator cuff (right) COLONOSCOPY FLX DX W/COLLJ SPEC WHEN PFRMD 04/09/11 TONSILLECTOMY PRIMARY/SECONDARY Tonsillectomy XCAPSL CTRC RMVL INSJ IO LENS PROSTH W/O ECP 2006 Cataract Removal bilateral Social History Tobacco Use Smoking status: Never Smokeless tobacco: Current Types: Snuff Vaping Use Vaping Use: Never used Alcohol use: Yes Comment: very rarely Drug use: No FAMILY HISTORY Problem Relation Age of Onset Cancer Mother breast Arthritis Mother Hypertension Mother Heart Father atrial fib Stroke Father ? A-fib related Hypertension Sister Hypertension Brother Colon Cancer Other none Prostate Cancer Other none Diabetes Other none CURRENT MEDS: Current Outpatient Medications Medication Sig lisinopril (ZESTRIL) 5 mg tablet Take 1 tablet by mouth once daily. empagliflozin (JARDIANCE) 10 mg tablet Take 1 tablet by mouth daily with breakfast. doxycycline (VIBRA-TABS) 100 mg tablet Take 1 tablet by mouth two times a day. (Patient not taking: Reported on 09/18/2023) omeprazole (PRILOSEC) 40 mg capsule Take 1 capsule by mouth once daily. aspirin, enteric coated (ASPIRIN, ENTERIC COATED) 81 mg EC tablet Take 1 tablet by mouth once daily. atorvastatin (LIPITOR) 20 mg tablet Take 1 tablet by mouth daily at bedtime. cetirizine (ZYRTEC) 10 mg tablet Take 1 tablet by mouth once daily as needed for cold/allergy symptoms. acetaminophen (TYLENOL) 325 mg tablet Take 2 tablets by mouth every 6 hours as needed (for mild surgical pain). furosemide (LASIX) 40 mg tablet Take 1 tablet by mouth once daily for 7 days. (Patient not taking: Reported on 09/18/2023) metoprolol succinate ER (TOPROL XL) 100 mg Take 1.5 tablets by mouth daily with breakfast AND 1 tablet daily at bedtime. docusate sodium (COLACE) 100 mg capsule Take 1 capsule by mouth two times a day. (Patient not taking: Reported on 09/18/2023) MULTIVITAMIN TAB Take one(1) tablet daily. No current facility-administered medications for this visit. 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 [facility] Office Visit (MIRI) MARTIN HENSON ([id number]) 1955 M Date Time Provider Department 12/04/23 8:00 AM CARD REHAB PHASE 2 [facility] During your visit today, we recorded the following information about you: Avelino Aburto, Health Care Specialist 12/04/2023 8:19 AM Signed Cardiac Rehabilitation Hospital Based Program Supervising Physician: Len Menendez Diagnosis: Aortic Valve Replacement Phase: 2 Monitor: Yes Session Number: 24 Today's exercise session was comprised of a warm-up, aerobic conditioning phase, aerobic cool-down, and free weight resistance training. Patient tolerated prescribed exercise workload. Tele SR-ST without ectopic beats. Vitals WNL for patient. No chest discomfort. No medication changes. This is a hospital based cardiac rehab program. Patient working towards exercise goals by increasing exercise duration. Patient working towards education goal by attending education sessions in cardiac rehabilitation. Patient has verbalized understanding of depression education topic and the relation to disease managment. Patient's Daily Exercise Log will be scanned into [employer]SEC once it is completed. These can be viewed by going under the Scanned Documents tab and looking for documents labeled Cardiac Rehabilitation. Daily Exercise Logs contain exercise data such as, but not limited to modality, intensity, duration and frequency of exercise, along with vital signs pre-, during, and post-exercise. Refer to patient's paper medical record for ECG rhythm strips, physician prescribed Individualized Treatment Plan, and education sessions covered. Avelino Aburto, Health Care Specialist Referring Provider: DEENA FRANCOIS [[id number]] Allergies As of Date: 12/04/2023 (No Active Allergies) Date Reviewed: 09/18/2023 Reviewed by: Pat Ye HUC - Fully Assessed Reason for Visit: Cardiac Rehab [3691] Primary Visit Diagnosis:S/P AVR (aortic valve replacement) [Z95.2] Prescriptions as of 12/04/2023 - lisinopril (ZESTRIL) 5 mg tablet Take 1 tablet by mouth once daily. - empagliflozin (JARDIANCE) 10 mg tablet Take 1 tablet by mouth daily with breakfast. - doxycycline (VIBRA-TABS) 100 mg tablet Take 1 tablet by mouth two times a day. - omeprazole (PRILOSEC) 40 mg capsule Take 1 capsule by mouth once daily. - aspirin, enteric coated (ASPIRIN, ENTERIC COATED) 81 mg EC tablet Take 1 tablet by mouth once daily. - atorvastatin (LIPITOR) 20 mg tablet Take 1 tablet by mouth daily at bedtime. - cetirizine (ZYRTEC) 10 mg tablet Take 1 tablet by mouth once daily as needed for cold/allergy symptoms. - acetaminophen (TYLENOL) 325 mg tablet Take 2 tablets by mouth every 6 hours as needed (for mild surgical pain). - furosemide (LASIX) 40 mg tablet Take 1 tablet by mouth once daily for 7 days. - metoprolol succinate ER (TOPROL XL) 100 mg Take 1.5 tablets by mouth daily with breakfast AND 1 tablet daily at bedtime. - docusate sodium (COLACE) 100 mg capsule Take 1 capsule by mouth two times a day. - MULTIVITAMIN TAB Take one(1) tablet daily. Problem List As Of Date 12/04/2023 Noted Resolved JOINT PAIN-UNSPEC [M25.50] 05/20/2006 10/03/2006 SPRAIN SHOULDER/ARM NOS [[id number]] 05/20/2006 10/03/2006 Complete rupture of rotator cuff [M75.120] 10/03/2006 Obesity (BMI 30-39.9) [E66.9] 02/16/2011 Special screening for malignant neoplasms, colo*03/13/2011 Nonrheumatic aortic valve stenosis [I35.0] 06/25/2023 Aortic root dilatation (HCC) [I77.810] 07/24/2023 Angina pectoris (HCC) [I20.9] 07/24/2023 Discharge planning issues [Z02.9] 07/24/2023 Encounter for support and coordination of trans*07/24/2023 Aortic stenosis due to bicuspid aortic valve [Q*07/29/2023 On mechanically assisted ventilation (HCC) [Z99*07/29/2023 Hypovolemia [E86.1] 07/29/2023 AI (aortic insufficiency) [I35.1] 07/29/2023 Hypotension [I95.9] 07/29/2023 Postoperative pain [G89.18] 07/29/2023 Aphasia [R47.01] 07/30/2023 Primary hypertension [I10] 07/30/2023 Hypervolemia [E87.70] 08/01/2023 Postoperative ileus (HCC) [K91.89, K56.7] 08/02/2023 Hyperlipidemia LDL goal <70 [E78.5] 08/03/2023 Gastroesophageal reflux disease without esophag*08/03/2023 ABLA (acute blood loss anemia) [D62] 08/03/2023 Thrombocytopenia (HCC) [D69.6] 08/03/2023 Hypertrophic cardiomyopathy (HCC) [I42.2] 09/18/2023 Obesity, Class I, BMI 30-34.9 [E66.9] 09/18/2023 Encounter Status:Closed by AVELINO ABURTO on 12/04/23 [facility] 12-02-2023 [facility] Office Visit (MIRI) MARTIN HENSON ([id number]) 1955 M Date Time Provider Department 12/02/23 8:00 AM CARD REHAB PHASE 2 [facility] MIRI During your visit today, we recorded the following information about you: Katie Decker, Health Care Specialist 12/02/2023 8:16 AM Signed Cardiac Rehabilitation Hospital Based Program Supervising Physician: Len Menendez Diagnosis: Aortic Valve Replacement Phase: 2 Monitor: Yes Session Number: 23 Today's exercise session was comprised of a warm-up, aerobic conditioning phase, aerobic cool-down, and free weight resistance training. Patient tolerated prescribed exercise workload. Tele SR-ST without ectopic beats. Vitals WNL for patient. No chest discomfort. No medication changes. This is a hospital based cardiac rehab program. Patient working towards exercise goals by sustaining exercise intensity and duration. Patient working towards education goal by attending education sessions in cardiac rehabilitation. Patient has verbalized understanding of Stress management education topic and the relation to disease managment. Patient's Daily Exercise Log will be scanned into [employer]SEC once it is completed. These can be viewed by going under the Scanned Documents tab and looking for documents labeled Cardiac Rehabilitation. Daily Exercise Logs contain exercise data such as, but not limited to modality, intensity, duration and frequency of exercise, along with vital signs pre-, during, and post-exercise. Refer to patient's paper medical record for ECG rhythm strips, physician prescribed Individualized Treatment Plan, and education sessions covered. Katie Decker, Health Care Specialist Referring Provider: DEENA FRANCOIS [[id number]] Allergies As of Date: 12/02/2023 (No Active Allergies) Date Reviewed: 09/18/2023 Reviewed by: Pat Ye HUC - Fully Assessed Reason for Visit: Cardiac Rehab [3551] Primary Visit Diagnosis:S/P AVR (aortic valve replacement) [Z95.2] Prescriptions as of 12/02/2023 - lisinopril (ZESTRIL) 5 mg tablet Take 1 tablet by mouth once daily. - empagliflozin (JARDIANCE) 10 mg tablet Take 1 tablet by mouth daily with breakfast. - doxycycline (VIBRA-TABS) 100 mg tablet Take 1 tablet by mouth two times a day. - omeprazole (PRILOSEC) 40 mg capsule Take 1 capsule by mouth once daily. - aspirin, enteric coated (ASPIRIN, ENTERIC COATED) 81 mg EC tablet Take 1 tablet by mouth once daily. - atorvastatin (LIPITOR) 20 mg tablet Take 1 tablet by mouth daily at bedtime. - cetirizine (ZYRTEC) 10 mg tablet Take 1 tablet by mouth once daily as needed for cold/allergy symptoms. - acetaminophen (TYLENOL) 325 mg tablet Take 2 tablets by mouth every 6 hours as needed (for mild surgical pain). - furosemide (LASIX) 40 mg tablet Take 1 tablet by mouth once daily for 7 days. - metoprolol succinate ER (TOPROL XL) 100 mg Take 1.5 tablets by mouth daily with breakfast AND 1 tablet daily at bedtime. - docusate sodium (COLACE) 100 mg capsule Take 1 capsule by mouth two times a day. - MULTIVITAMIN TAB Take one(1) tablet daily. Problem List As Of Date 12/02/2023 Noted Resolved JOINT PAIN-UNSPEC [M25.50] 05/20/2006 10/03/2006 SPRAIN SHOULDER/ARM NOS [[id number]] 05/20/2006 10/03/2006 Complete rupture of rotator cuff [M75.120] 10/03/2006 Obesity (BMI 30-39.9) [E66.9] 02/16/2011 Special screening for malignant neoplasms, colo*03/13/2011 Nonrheumatic aortic valve stenosis [I35.0] 06/25/2023 Aortic root dilatation (HCC) [I77.810] 07/24/2023 Angina pectoris (HCC) [I20.9] 07/24/2023 Discharge planning issues [Z02.9] 07/24/2023 Encounter for support and coordination of trans*07/24/2023 Aortic stenosis due to bicuspid aortic valve [Q*07/29/2023 On mechanically assisted ventilation (HCC) [Z99*07/29/2023 Hypovolemia [E86.1] 07/29/2023 AI (aortic insufficiency) [I35.1] 07/29/2023 Hypotension [I95.9] 07/29/2023 Postoperative pain [G89.18] 07/29/2023 Aphasia [R47.01] 07/30/2023 Primary hypertension [I10] 07/30/2023 Hypervolemia [E87.70] 08/01/2023 Postoperative ileus (HCC) [K91.89, K56.7] 08/02/2023 Hyperlipidemia LDL goal <70 [E78.5] 08/03/2023 Gastroesophageal reflux disease without esophag*08/03/2023 ABLA (acute blood loss anemia) [D62] 08/03/2023 Thrombocytopenia (HCC) [D69.6] 08/03/2023 Hypertrophic cardiomyopathy (HCC) [I42.2] 09/18/2023 Obesity, Class I, BMI 30-34.9 [E66.9] 09/18/2023 Encounter Status:Closed by KATIE DECKER on 12/02/23 [facility] 11-29-2023 [facility] Office Visit (MIRI) MARTIN HENSON ([id number]) 1955 M Date Time Provider Department 11/29/23 8:00 AM CARD REHAB PHASE 2 [facility] During your visit today, we recorded the following information about you: Avelino Aburto, Health Care Specialist 11/29/2023 8:26 AM Signed [facility] Supervising Physician: Len Menendez Diagnosis: Aortic Valve Replacement Phase: 2 Monitor: Yes Session Number: 22 Today's exercise session was comprised of a warm-up, aerobic conditioning phase, aerobic cool-down, and free weight resistance training. Patient tolerated prescribed exercise workload. Tele SR-ST without ectopic beats. Vitals WNL for patient. No chest discomfort. No medication changes. This is a hospital based cardiac rehab program. Patient working towards exercise goals by increasing exercise intensity. Patient working towards education goal by attending education sessions in cardiac rehabilitation. Patient has verbalized understanding of exercise education topic and the relation to disease managment. Patient's Daily Exercise Log will be scanned into [employer] once it is completed. These can be viewed by going under the Scanned Documents tab and looking for documents labeled Cardiac Rehabilitation. Daily Exercise Logs contain exercise data such as, but not limited to modality, intensity, duration and frequency of exercise, along with vital signs pre-, during, and post-exercise. Refer to patient's paper medical record for ECG rhythm strips, physician prescribed Individualized Treatment Plan, and education sessions covered. Avelino Aburto, Health Care Specialist Referring Provider: DEENA FRANCOIS [[id number]] Allergies As of Date: 11/29/2023 (No Active Allergies) Date Reviewed: 09/18/2023 Reviewed by: Pat Ye HUC - Fully Assessed Reason for Visit: Cardiac Rehab [[id number]] Primary Visit Diagnosis:S/P AVR (aortic valve replacement) [Z95.2] Prescriptions as of 11/29/2023 - lisinopril (ZESTRIL) 5 mg tablet Take 1 tablet by mouth once daily. - empagliflozin (JARDIANCE) 10 mg tablet Take 1 tablet by mouth daily with breakfast. - doxycycline (VIBRA-TABS) 100 mg tablet Take 1 tablet by mouth two times a day. - omeprazole (PRILOSEC) 40 mg capsule Take 1 capsule by mouth once daily. - aspirin, enteric coated (ASPIRIN, ENTERIC COATED) 81 mg EC tablet Take 1 tablet by mouth once daily. - atorvastatin (LIPITOR) 20 mg tablet Take 1 tablet by mouth daily at bedtime. - cetirizine (ZYRTEC) 10 mg tablet Take 1 tablet by mouth once daily as needed for cold/allergy symptoms. - acetaminophen (TYLENOL) 325 mg tablet Take 2 tablets by mouth every 6 hours as needed (for mild surgical pain). - furosemide (LASIX) 40 mg tablet Take 1 tablet by mouth once daily for 7 days. - metoprolol succinate ER (TOPROL XL) 100 mg Take 1.5 tablets by mouth daily with breakfast AND 1 tablet daily at bedtime. - docusate sodium (COLACE) 100 mg capsule Take 1 capsule by mouth two times a day. - MULTIVITAMIN TAB Take one(1) tablet daily. Problem List As Of Date 11/29/2023 Noted Resolved JOINT PAIN-UNSPEC [M25.50] 05/20/2006 10/03/2006 SPRAIN SHOULDER/ARM NOS [[id number]] 05/20/2006 10/03/2006 Complete rupture of rotator cuff [M75.120] 10/03/2006 Obesity (BMI 30-39.9) [E66.9] 02/16/2011 Special screening for malignant neoplasms, colo*03/13/2011 Nonrheumatic aortic valve stenosis [I35.0] 06/25/2023 Aortic root dilatation (HCC) [I77.810] 07/24/2023 Angina pectoris (HCC) [I20.9] 07/24/2023 Discharge planning issues [Z02.9] 07/24/2023 Encounter for support and coordination of trans*07/24/2023 Aortic stenosis due to bicuspid aortic valve [Q*07/29/2023 On mechanically assisted ventilation (HCC) [Z99*07/29/2023 Hypovolemia [E86.1] 07/29/2023 AI (aortic insufficiency) [I35.1] 07/29/2023 Hypotension [I95.9] 07/29/2023 Postoperative pain [G89.18] 07/29/2023 Aphasia [R47.01] 07/30/2023 Primary hypertension [I10] 07/30/2023 Hypervolemia [E87.70] 08/01/2023 Postoperative ileus (HCC) [K91.89, K56.7] 08/02/2023 Hyperlipidemia LDL goal <70 [E78.5] 08/03/2023 Gastroesophageal reflux disease without esophag*08/03/2023 ABLA (acute blood loss anemia) [D62] 08/03/2023 Thrombocytopenia (HCC) [D69.6] 08/03/2023 Hypertrophic cardiomyopathy (HCC) [I42.2] 09/18/2023 Obesity, Class I, BMI 30-34.9 [E66.9] 09/18/2023 Encounter Status:Closed by AVELINO ABURTO on 11/29/23 [facility] 11-27-2023 [facility] Office Visit (MIRI) MARTIN HENSON ([id number]) 1955 M Date Time Provider Department 11/27/23 8:00 AM CARD REHAB PHASE 2 [facility] During your visit today, we recorded the following information about you: Avelino Aburto, Health Care Specialist 11/27/2023 8:26 AM Signed Cardiac Rehabilitation [facility] Based Program Supervising Physician: Len Menendez Diagnosis: Aortic Valve Replacement Phase: 2 Monitor: Yes Session Number: 21 Today's exercise session was comprised of a warm-up, aerobic conditioning phase, aerobic cool-down, and free weight resistance training. Patient tolerated prescribed exercise workload. Tele SR-ST without ectopic beats. Vitals WNL for patient. No chest discomfort. No medication changes. This is a hospital based cardiac rehab program. Patient working towards exercise goals by sustaining exercise intensity and duration. Patient working towards education goal by attending education sessions in cardiac rehabilitation. Patient has verbalized understanding of weight management education topic and the relation to disease managment. Patient's Daily Exercise Log will be scanned into [employer]SEC once it is completed. These can be viewed by going under the Scanned Documents tab and looking for documents labeled Cardiac Rehabilitation. Daily Exercise Logs contain exercise data such as, but not limited to modality, intensity, duration and frequency of exercise, along with vital signs pre-, during, and post-exercise. Refer to patient's paper medical record for ECG rhythm strips, physician prescribed Individualized Treatment Plan, and education sessions covered. Avelino Aburto, Health Care Specialist Referring Provider: DEENA FRANCOIS [[id number]] Allergies As of Date: 11/27/2023 (No Active Allergies) Date Reviewed: 09/18/2023 Reviewed by: Pat Ye HUC - Fully Assessed Reason for Visit: Cardiac Rehab [[id number]] Primary Visit Diagnosis:S/P AVR (aortic valve replacement) [Z95.2] Prescriptions as of 11/27/2023 - lisinopril (ZESTRIL) 5 mg tablet Take 1 tablet by mouth once daily. - empagliflozin (JARDIANCE) 10 mg tablet Take 1 tablet by mouth daily with breakfast. - doxycycline (VIBRA-TABS) 100 mg tablet Take 1 tablet by mouth two times a day. - omeprazole (PRILOSEC) 40 mg capsule Take 1 capsule by mouth once daily. - aspirin, enteric coated (ASPIRIN, ENTERIC COATED) 81 mg EC tablet Take 1 tablet by mouth once daily. - atorvastatin (LIPITOR) 20 mg tablet Take 1 tablet by mouth daily at bedtime. - cetirizine (ZYRTEC) 10 mg tablet Take 1 tablet by mouth once daily as needed for cold/allergy symptoms. - acetaminophen (TYLENOL) 325 mg tablet Take 2 tablets by mouth every 6 hours as needed (for mild surgical pain). - furosemide (LASIX) 40 mg tablet Take 1 tablet by mouth once daily for 7 days. - metoprolol succinate ER (TOPROL XL) 100 mg Take 1.5 tablets by mouth daily with breakfast AND 1 tablet daily at bedtime. - docusate sodium (COLACE) 100 mg capsule Take 1 capsule by mouth two times a day. - MULTIVITAMIN TAB Take one(1) tablet daily. Problem List As Of Date 11/27/2023 Noted Resolved JOINT PAIN-UNSPEC [M25.50] 05/20/2006 10/03/2006 SPRAIN SHOULDER/ARM NOS [[id number]] 05/20/2006 10/03/2006 Complete rupture of rotator cuff [M75.120] 10/03/2006 Obesity (BMI 30-39.9) [E66.9] 02/16/2011 Special screening for malignant neoplasms, colo*03/13/2011 Nonrheumatic aortic valve stenosis [I35.0] 06/25/2023 Aortic root dilatation (HCC) [I77.810] 07/24/2023 Angina pectoris (HCC) [I20.9] 07/24/2023 Discharge planning issues [Z02.9] 07/24/2023 Encounter for support and coordination of trans*07/24/2023 Aortic stenosis due to bicuspid aortic valve [Q*07/29/2023 On mechanically assisted ventilation (HCC) [Z99*07/29/2023 Hypovolemia [E86.1] 07/29/2023 AI (aortic insufficiency) [I35.1] 07/29/2023 Hypotension [I95.9] 07/29/2023 Postoperative pain [G89.18] 07/29/2023 Aphasia [R47.01] 07/30/2023 Primary hypertension [I10] 07/30/2023 Hypervolemia [E87.70] 08/01/2023 Postoperative ileus (HCC) [K91.89, K56.7] 08/02/2023 Hyperlipidemia LDL goal <70 [E78.5] 08/03/2023 Gastroesophageal reflux disease without esophag*08/03/2023 ABLA (acute blood loss anemia) [D62] 08/03/2023 Thrombocytopenia (HCC) [D69.6] 08/03/2023 Hypertrophic cardiomyopathy (HCC) [I42.2] 09/18/2023 Obesity, Class I, BMI 30-34.9 [E66.9] 09/18/2023 Encounter Status:Closed by AVELINO ABURTO on 11/27/23 [facility] 11-25-2023 [facility] Office Visit (MIRI) MARTIN HENSON ([id number]) 1955 M Date Time Provider Department 11/25/23 8:00 AM CARD REHAB PHASE 2 [facility] During your visit today, we recorded the following information about you: Katie Decker, Health Care Specialist 11/25/2023 8:10 AM Signed Cardiac Rehabilitation Hospital Based Program Supervising Physician: Len Menendez Diagnosis: Aortic Valve Replacement Phase: 2 Monitor: Yes Session Number: 20 Today's exercise session was comprised of a warm-up, aerobic conditioning phase, aerobic cool-down, and free weight resistance training. Patient tolerated prescribed exercise workload. Tele SR-ST without ectopic beats. Vitals WNL for patient. No chest discomfort. No medication changes. This is a hospital based cardiac rehab program. Patient working towards exercise goals by sustaining exercise intensity and duration. Patient working towards education goal by attending education sessions in cardiac rehabilitation. Patient has verbalized understanding of Diabetes education topic and the relation to disease managment. Patient's Daily Exercise Log will be scanned into [employer] once it is completed. These can be viewed by going under the Scanned Documents tab and looking for documents labeled Cardiac Rehabilitation. Daily Exercise Logs contain exercise data such as, but not limited to modality, intensity, duration and frequency of exercise, along with vital signs pre-, during, and post-exercise. Refer to patient's paper medical record for ECG rhythm strips, physician prescribed Individualized Treatment Plan, and education sessions covered. Katie Decker, Health Care Specialist Referring Provider: DEEAN FRANCOIS [[id number]] Allergies As of Date: 11/25/2023 (No Active Allergies) Date Reviewed: 09/18/2023 Reviewed by: Pat Ye HUC - Fully Assessed Reason for Visit: Cardiac Rehab [0026] Primary Visit Diagnosis:S/P AVR (aortic valve replacement) [Z95.2] Prescriptions as of 11/25/2023 - lisinopril (ZESTRIL) 5 mg tablet Take 1 tablet by mouth once daily. - empagliflozin (JARDIANCE) 10 mg tablet Take 1 tablet by mouth daily with breakfast. - doxycycline (VIBRA-TABS) 100 mg tablet Take 1 tablet by mouth two times a day. - omeprazole (PRILOSEC) 40 mg capsule Take 1 capsule by mouth once daily. - aspirin, enteric coated (ASPIRIN, ENTERIC COATED) 81 mg EC tablet Take 1 tablet by mouth once daily. - atorvastatin (LIPITOR) 20 mg tablet Take 1 tablet by mouth daily at bedtime. - cetirizine (ZYRTEC) 10 mg tablet Take 1 tablet by mouth once daily as needed for cold/allergy symptoms. - acetaminophen (TYLENOL) 325 mg tablet Take 2 tablets by mouth every 6 hours as needed (for mild surgical pain). - furosemide (LASIX) 40 mg tablet Take 1 tablet by mouth once daily for 7 days. - metoprolol succinate ER (TOPROL XL) 100 mg Take 1.5 tablets by mouth daily with breakfast AND 1 tablet daily at bedtime. - docusate sodium (COLACE) 100 mg capsule Take 1 capsule by mouth two times a day. - MULTIVITAMIN TAB Take one(1) tablet daily. Problem List As Of Date 11/25/2023 Noted Resolved JOINT PAIN-UNSPEC [M25.50] 05/20/2006 10/03/2006 SPRAIN SHOULDER/ARM NOS [[id number]] 05/20/2006 10/03/2006 Complete rupture of rotator cuff [M75.120] 10/03/2006 Obesity (BMI 30-39.9) [E66.9] 02/16/2011 Special screening for malignant neoplasms, colo*03/13/2011 Nonrheumatic aortic valve stenosis [I35.0] 06/25/2023 Aortic root dilatation (HCC) [I77.810] 07/24/2023 Angina pectoris (HCC) [I20.9] 07/24/2023 Discharge planning issues [Z02.9] 07/24/2023 Encounter for support and coordination of trans*07/24/2023 Aortic stenosis due to bicuspid aortic valve [Q*07/29/2023 On mechanically assisted ventilation (HCC) [Z99*07/29/2023 Hypovolemia [E86.1] 07/29/2023 AI (aortic insufficiency) [I35.1] 07/29/2023 Hypotension [I95.9] 07/29/2023 Postoperative pain [G89.18] 07/29/2023 Aphasia [R47.01] 07/30/2023 Primary hypertension [I10] 07/30/2023 Hypervolemia [E87.70] 08/01/2023 Postoperative ileus (HCC) [K91.89, K56.7] 08/02/2023 Hyperlipidemia LDL goal <70 [E78.5] 08/03/2023 Gastroesophageal reflux disease without esophag*08/03/2023 ABLA (acute blood loss anemia) [D62] 08/03/2023 Thrombocytopenia (HCC) [D69.6] 08/03/2023 Hypertrophic cardiomyopathy (HCC) [I42.2] 09/18/2023 Obesity, Class I, BMI 30-34.9 [E66.9] 09/18/2023 Encounter Status:Closed by KATIE DECKER on 11/25/23 [facility] 11-22-2023 [facility] Office Visit (MIRI) MARTIN HENSON ([id number]) 1955 M Date Time Provider Department 11/22/23 8:00 AM CARD REHAB PHASE 2 [facility] During your visit today, we recorded the following information about you: Josiah Suh, lease picker 11/22/2023 8:15 AM Signed Cardiac Rehabilitation Hospital Based Program Supervising Physician: Len Menendez Diagnosis: Aortic Valve Replacement Phase: 2 Monitor: Yes Session Number: 19 Today's exercise session was comprised of a warm-up, aerobic conditioning phase, aerobic cool-down, and free weight resistance training. Patient tolerated prescribed exercise workload. Tele SR-ST without ectopic beats. Vitals WNL for patient. No chest discomfort. No medication changes. This is a hospital based cardiac rehab program. Patient working towards exercise goals by increasing exercise duration. Patient working towards education goal by attending education sessions in cardiac rehabilitation. Patient has verbalized understanding of Cholestrol education topic and the relation to disease managment. Patient's Daily Exercise Log will be scanned into [employer]SEC once it is completed. These can be viewed by going under the Scanned Documents tab and looking for documents labeled Cardiac Rehabilitation. Daily Exercise Logs contain exercise data such as, but not limited to modality, intensity, duration and frequency of exercise, along with vital signs pre-, during, and post-exercise. Refer to patient's paper medical record for ECG rhythm strips, physician prescribed Individualized Treatment Plan, and education sessions covered. Josiah Suh, Health Care Specialist Referring Provider: DEENA FRANCOIS [[id number]] Allergies As of Date: 11/22/2023 (No Active Allergies) Date Reviewed: 09/18/2023 Reviewed by: Pat Ye HUC - Fully Assessed Reason for Visit: Cardiac Rehab [3531] Primary Visit Diagnosis:S/P AVR [Z95.2] Prescriptions as of 11/22/2023 - lisinopril (ZESTRIL) 5 mg tablet Take 1 tablet by mouth once daily. - empagliflozin (JARDIANCE) 10 mg tablet Take 1 tablet by mouth daily with breakfast. - doxycycline (VIBRA-TABS) 100 mg tablet Take 1 tablet by mouth two times a day. - omeprazole (PRILOSEC) 40 mg capsule Take 1 capsule by mouth once daily. - aspirin, enteric coated (ASPIRIN, ENTERIC COATED) 81 mg EC tablet Take 1 tablet by mouth once daily. - atorvastatin (LIPITOR) 20 mg tablet Take 1 tablet by mouth daily at bedtime. - cetirizine (ZYRTEC) 10 mg tablet Take 1 tablet by mouth once daily as needed for cold/allergy symptoms. - acetaminophen (TYLENOL) 325 mg tablet Take 2 tablets by mouth every 6 hours as needed (for mild surgical pain). - furosemide (LASIX) 40 mg tablet Take 1 tablet by mouth once daily for 7 days. - metoprolol succinate ER (TOPROL XL) 100 mg Take 1.5 tablets by mouth daily with breakfast AND 1 tablet daily at bedtime. - docusate sodium (COLACE) 100 mg capsule Take 1 capsule by mouth two times a day. - MULTIVITAMIN TAB Take one(1) tablet daily. Problem List As Of Date 11/22/2023 Noted Resolved JOINT PAIN-UNSPEC [M25.50] 05/20/2006 10/03/2006 SPRAIN SHOULDER/ARM NOS [[id number]] 05/20/2006 10/03/2006 Complete rupture of rotator cuff [M75.120] 10/03/2006 Obesity (BMI 30-39.9) [E66.9] 02/16/2011 Special screening for malignant neoplasms, colo*03/13/2011 Nonrheumatic aortic valve stenosis [I35.0] 06/25/2023 Aortic root dilatation (HCC) [I77.810] 07/24/2023 Angina pectoris (HCC) [I20.9] 07/24/2023 Discharge planning issues [Z02.9] 07/24/2023 Encounter for support and coordination of trans*07/24/2023 Aortic stenosis due to bicuspid aortic valve [Q*07/29/2023 On mechanically assisted ventilation (HCC) [Z99*07/29/2023 Hypovolemia [E86.1] 07/29/2023 AI (aortic insufficiency) [I35.1] 07/29/2023 Hypotension [I95.9] 07/29/2023 Postoperative pain [G89.18] 07/29/2023 Aphasia [R47.01] 07/30/2023 Primary hypertension [I10] 07/30/2023 Hypervolemia [E87.70] 08/01/2023 Postoperative ileus (HCC) [K91.89, K56.7] 08/02/2023 Hyperlipidemia LDL goal <70 [E78.5] 08/03/2023 Gastroesophageal reflux disease without esophag*08/03/2023 ABLA (acute blood loss anemia) [D62] 08/03/2023 Thrombocytopenia (HCC) [D69.6] 08/03/2023 Hypertrophic cardiomyopathy (HCC) [I42.2] 09/18/2023 Obesity, Class I, BMI 30-34.9 [E66.9] 09/18/2023 Encounter Status:Closed by JOSIAH SUH on 11/22/23 [facility] 11-20-2023 [facility] Office Visit (MIRI) MARTIN HENSON ([id number]) 1955 M Date Time Provider Department 11/20/23 8:00 AM CARD REHAB PHASE 2 [facility] During your visit today, we recorded the following information about you: Avelino Aburto, Health Care Specialist 11/20/2023 8:22 AM Signed Cardiac Rehabilitation [facility] Based Program Supervising Physician: Len Menendez Diagnosis: Aortic Valve Replacement Phase: 2 Monitor: Yes Session Number: 18 Today's exercise session was comprised of a warm-up, aerobic conditioning phase, aerobic cool-down, and free weight resistance training. Patient tolerated prescribed exercise workload. Tele SR-ST without ectopic beats. Vitals WNL for patient. No chest discomfort. No medication changes. This is a hospital based cardiac rehab program. Patient working towards exercise goals by increasing exercise intensity. Patient working towards education goal by attending education sessions in cardiac rehabilitation. Patient has verbalized understanding of blood pressure education topic and the relation to disease managment. Patient's Daily Exercise Log will be scanned into [employer]SEC once it is completed. These can be viewed by going under the Scanned Documents tab and looking for documents labeled Cardiac Rehabilitation. Daily Exercise Logs contain exercise data such as, but not limited to modality, intensity, duration and frequency of exercise, along with vital signs pre-, during, and post-exercise. Refer to patient's paper medical record for ECG rhythm strips, physician prescribed Individualized Treatment Plan, and education sessions covered. Avelino Aburto, Health Care Specialist Referring Provider: DEENA FRANCOIS [[id number]] Allergies As of Date: 11/20/2023 (No Active Allergies) Date Reviewed: 09/18/2023 Reviewed by: Pat Ye HUC - Fully Assessed Reason for Visit: Cardiac Rehab [3551] Primary Visit Diagnosis:S/P AVR (aortic valve replacement) [Z95.2] Prescriptions as of 11/20/2023 - lisinopril (ZESTRIL) 5 mg tablet Take 1 tablet by mouth once daily. - empagliflozin (JARDIANCE) 10 mg tablet Take 1 tablet by mouth daily with breakfast. - doxycycline (VIBRA-TABS) 100 mg tablet Take 1 tablet by mouth two times a day. - omeprazole (PRILOSEC) 40 mg capsule Take 1 capsule by mouth once daily. - aspirin, enteric coated (ASPIRIN, ENTERIC COATED) 81 mg EC tablet Take 1 tablet by mouth once daily. - atorvastatin (LIPITOR) 20 mg tablet Take 1 tablet by mouth daily at bedtime. - cetirizine (ZYRTEC) 10 mg tablet Take 1 tablet by mouth once daily as needed for cold/allergy symptoms. - acetaminophen (TYLENOL) 325 mg tablet Take 2 tablets by mouth every 6 hours as needed (for mild surgical pain). - furosemide (LASIX) 40 mg tablet Take 1 tablet by mouth once daily for 7 days. - metoprolol succinate ER (TOPROL XL) 100 mg Take 1.5 tablets by mouth daily with breakfast AND 1 tablet daily at bedtime. - docusate sodium (COLACE) 100 mg capsule Take 1 capsule by mouth two times a day. - MULTIVITAMIN TAB Take one(1) tablet daily. Problem List As Of Date 11/20/2023 Noted Resolved JOINT PAIN-UNSPEC [M25.50] 05/20/2006 10/03/2006 SPRAIN SHOULDER/ARM NOS [[id number]] 05/20/2006 10/03/2006 Complete rupture of rotator cuff [M75.120] 10/03/2006 Obesity (BMI 30-39.9) [E66.9] 02/16/2011 Special screening for malignant neoplasms, colo*03/13/2011 Nonrheumatic aortic valve stenosis [I35.0] 06/25/2023 Aortic root dilatation (HCC) [I77.810] 07/24/2023 Angina pectoris (HCC) [I20.9] 07/24/2023 Discharge planning issues [Z02.9] 07/24/2023 Encounter for support and coordination of trans*07/24/2023 Aortic stenosis due to bicuspid aortic valve [Q*07/29/2023 On mechanically assisted ventilation (HCC) [Z99*07/29/2023 Hypovolemia [E86.1] 07/29/2023 AI (aortic insufficiency) [I35.1] 07/29/2023 Hypotension [I95.9] 07/29/2023 Postoperative pain [G89.18] 07/29/2023 Aphasia [R47.01] 07/30/2023 Primary hypertension [I10] 07/30/2023 Hypervolemia [E87.70] 08/01/2023 Postoperative ileus (HCC) [K91.89, K56.7] 08/02/2023 Hyperlipidemia LDL goal <70 [E78.5] 08/03/2023 Gastroesophageal reflux disease without esophag*08/03/2023 ABLA (acute blood loss anemia) [D62] 08/03/2023 Thrombocytopenia (HCC) [D69.6] 08/03/2023 Hypertrophic cardiomyopathy (HCC) [I42.2] 09/18/2023 Obesity, Class I, BMI 30-34.9 [E66.9] 09/18/2023 Encounter Status:Closed by AVELNIO ABURTO on 11/20/23 [facility] 11-18-2023 [facility] Office Visit (MIRI) MARTIN HENSON ([id number]) 1955 M Date Time Provider Department 11/18/23 8:00 AM CARD REHAB PHASE 2 [facility] During your visit today, we recorded the following information about you: Katie Decker, Health Care Specialist 11/18/2023 8:19 AM Signed Cardiac Rehabilitation [facility] Based Program Supervising Physician: Len Menendez Diagnosis: Aortic Valve Replacement Phase: 2 Monitor: Yes Session Number: 17 Today's exercise session was comprised of a warm-up, aerobic conditioning phase, aerobic cool-down, and free weight resistance training. Patient tolerated prescribed exercise workload. Tele SR-ST without ectopic beats. Vitals WNL for patient. No chest discomfort. No medication changes. This is a hospital based cardiac rehab program. Patient working towards exercise goals by sustaining exercise intensity and duration. Patient working towards education goal by attending education sessions in cardiac rehabilitation. Patient has verbalized understanding of Risk Factors education topic and the relation to disease managment. Patient's Daily Exercise Log will be scanned into [employer] once it is completed. These can be viewed by going under the Scanned Documents tab and looking for documents labeled Cardiac Rehabilitation. Daily Exercise Logs contain exercise data such as, but not limited to modality, intensity, duration and frequency of exercise, along with vital signs pre-, during, and post-exercise. Refer to patient's paper medical record for ECG rhythm strips, physician prescribed Individualized Treatment Plan, and education sessions covered. Katie Decker, Health Care Specialist Referring Provider: DEENA FRANCOIS [[id number]] Allergies As of Date: 11/18/2023 (No Active Allergies) Date Reviewed: 09/18/2023 Reviewed by: Pat Ye HUC - Fully Assessed Reason for Visit: Cardiac Rehab [[id number]] Primary Visit Diagnosis:S/P AVR (aortic valve replacement) [Z95.2] Prescriptions as of 11/18/2023 - lisinopril (ZESTRIL) 5 mg tablet Take 1 tablet by mouth once daily. - empagliflozin (JARDIANCE) 10 mg tablet Take 1 tablet by mouth daily with breakfast. - doxycycline (VIBRA-TABS) 100 mg tablet Take 1 tablet by mouth two times a day. - omeprazole (PRILOSEC) 40 mg capsule Take 1 capsule by mouth once daily. - aspirin, enteric coated (ASPIRIN, ENTERIC COATED) 81 mg EC tablet Take 1 tablet by mouth once daily. - atorvastatin (LIPITOR) 20 mg tablet Take 1 tablet by mouth daily at bedtime. - cetirizine (ZYRTEC) 10 mg tablet Take 1 tablet by mouth once daily as needed for cold/allergy symptoms. - acetaminophen (TYLENOL) 325 mg tablet Take 2 tablets by mouth every 6 hours as needed (for mild surgical pain). - furosemide (LASIX) 40 mg tablet Take 1 tablet by mouth once daily for 7 days. - metoprolol succinate ER (TOPROL XL) 100 mg Take 1.5 tablets by mouth daily with breakfast AND 1 tablet daily at bedtime. - docusate sodium (COLACE) 100 mg capsule Take 1 capsule by mouth two times a day. - MULTIVITAMIN TAB Take one(1) tablet daily. Problem List As Of Date 11/18/2023 Noted Resolved JOINT PAIN-UNSPEC [M25.50] 05/20/2006 10/03/2006 SPRAIN SHOULDER/ARM NOS [[id number]] 05/20/2006 10/03/2006 Complete rupture of rotator cuff [M75.120] 10/03/2006 Obesity (BMI 30-39.9) [E66.9] 02/16/2011 Special screening for malignant neoplasms, colo*03/13/2011 Nonrheumatic aortic valve stenosis [I35.0] 06/25/2023 Aortic root dilatation (HCC) [I77.810] 07/24/2023 Angina pectoris (HCC) [I20.9] 07/24/2023 Discharge planning issues [Z02.9] 07/24/2023 Encounter for support and coordination of trans*07/24/2023 Aortic stenosis due to bicuspid aortic valve [Q*07/29/2023 On mechanically assisted ventilation (HCC) [Z99*07/29/2023 Hypovolemia [E86.1] 07/29/2023 AI (aortic insufficiency) [I35.1] 07/29/2023 Hypotension [I95.9] 07/29/2023 Postoperative pain [G89.18] 07/29/2023 Aphasia [R47.01] 07/30/2023 Primary hypertension [I10] 07/30/2023 Hypervolemia [E87.70] 08/01/2023 Postoperative ileus (HCC) [K91.89, K56.7] 08/02/2023 Hyperlipidemia LDL goal <70 [E78.5] 08/03/2023 Gastroesophageal reflux disease without esophag*08/03/2023 ABLA (acute blood loss anemia) [D62] 08/03/2023 Thrombocytopenia (HCC) [D69.6] 08/03/2023 Hypertrophic cardiomyopathy (HCC) [I42.2] 09/18/2023 Obesity, Class I, BMI 30-34.9 [E66.9] 09/18/2023 Encounter Status:Closed by KATIE DECKER on 11/18/23 [facility] Office Visit (MIRI) MARTIN HENSON ([id number]) 1955 M Date Time Provider Department 11/15/23 8:00 AM CARD REHAB PHASE 2 [facility] During your visit today, we recorded the following information about you: Avelino Aburto, Health Care Specialist 11/15/2023 8:08 AM Signed Cardiac Rehabilitation [facility] Based Program Supervising Physician: Len Menendez Diagnosis: Aortic Valve Replacement Phase: 2 Monitor: Yes Session Number: 16 Today's exercise session was comprised of a warm-up, aerobic conditioning phase, aerobic cool-down, and free weight resistance training. Patient tolerated prescribed exercise workload. Tele SR-ST without ectopic beats. Vitals WNL for patient. No chest discomfort. No medication changes. This is a hospital based cardiac rehab program. Patient working towards exercise goals by sustaining exercise intensity and duration. Patient working towards education goal by attending education sessions in cardiac rehabilitation. Patient has verbalized understanding of Sugar, Fiber, NA+ education topic and the relation to disease managment. Patient's Daily Exercise Log will be scanned into [employer]SEC once it is completed. These can be viewed by going under the Scanned Documents tab and looking for documents labeled Cardiac Rehabilitation. Daily Exercise Logs contain exercise data such as, but not limited to modality, intensity, duration and frequency of exercise, along with vital signs pre-, during, and post-exercise. Refer to patient's paper medical record for ECG rhythm strips, physician prescribed Individualized Treatment Plan, and education sessions covered. Avelino Aburto Health Care Specialist Referring Provider: DEENA FRANCOIS [[id number]] Allergies As of Date: 11/15/2023 (No Active Allergies) Date Reviewed: 09/18/2023 Reviewed by: Pat Ye HUC - Fully Assessed Reason for Visit: Cardiac Rehab [[id number]] Primary Visit Diagnosis:S/P AVR (aortic valve replacement) [Z95.2] Prescriptions as of 11/15/2023 - lisinopril (ZESTRIL) 5 mg tablet Take 1 tablet by mouth once daily. - empagliflozin (JARDIANCE) 10 mg tablet Take 1 tablet by mouth daily with breakfast. - doxycycline (VIBRA-TABS) 100 mg tablet Take 1 tablet by mouth two times a day. - omeprazole (PRILOSEC) 40 mg capsule Take 1 capsule by mouth once daily. - aspirin, enteric coated (ASPIRIN, ENTERIC COATED) 81 mg EC tablet Take 1 tablet by mouth once daily. - atorvastatin (LIPITOR) 20 mg tablet Take 1 tablet by mouth daily at bedtime. - cetirizine (ZYRTEC) 10 mg tablet Take 1 tablet by mouth once daily as needed for cold/allergy symptoms. - acetaminophen (TYLENOL) 325 mg tablet Take 2 tablets by mouth every 6 hours as needed (for mild surgical pain). - furosemide (LASIX) 40 mg tablet Take 1 tablet by mouth once daily for 7 days. - metoprolol succinate ER (TOPROL XL) 100 mg Take 1.5 tablets by mouth daily with breakfast AND 1 tablet daily at bedtime. - docusate sodium (COLACE) 100 mg capsule Take 1 capsule by mouth two times a day. - MULTIVITAMIN TAB Take one(1) tablet daily. Problem List As Of Date 11/15/2023 Noted Resolved JOINT PAIN-UNSPEC [M25.50] 05/20/2006 10/03/2006 SPRAIN SHOULDER/ARM NOS [[id number]] 05/20/2006 10/03/2006 Complete rupture of rotator cuff [M75.120] 10/03/2006 Obesity (BMI 30-39.9) [E66.9] 02/16/2011 Special screening for malignant neoplasms, colo*03/13/2011 Nonrheumatic aortic valve stenosis [I35.0] 06/25/2023 Aortic root dilatation (HCC) [I77.810] 07/24/2023 Angina pectoris (HCC) [I20.9] 07/24/2023 Discharge planning issues [Z02.9] 07/24/2023 Encounter for support and coordination of trans*07/24/2023 Aortic stenosis due to bicuspid aortic valve [Q*07/29/2023 On mechanically assisted ventilation (HCC) [Z99*07/29/2023 Hypovolemia [E86.1] 07/29/2023 AI (aortic insufficiency) [I35.1] 07/29/2023 Hypotension [I95.9] 07/29/2023 Postoperative pain [G89.18] 07/29/2023 Aphasia [R47.01] 07/30/2023 Primary hypertension [I10] 07/30/2023 Hypervolemia [E87.70] 08/01/2023 Postoperative ileus (HCC) [K91.89, K56.7] 08/02/2023 Hyperlipidemia LDL goal <70 [E78.5] 08/03/2023 Gastroesophageal reflux disease without esophag*08/03/2023 ABLA (acute blood loss anemia) [D62] 08/03/2023 Thrombocytopenia (HCC) [D69.6] 08/03/2023 Hypertrophic cardiomyopathy (HCC) [I42.2] 09/18/2023 Obesity, Class I, BMI 30-34.9 [E66.9] 09/18/2023 Encounter Status:Closed by AVELINO ABURTO on 11/15/23 [facility] 11-13-2023 [facility] Office Visit (MIRI) MARTIN HENSON ([id number]) 1955 M Date Time Provider Department 11/13/23 8:00 AM CARD REHAB PHASE 2 [facility] During your visit today, we recorded the following information about you: Avelino Aburto, Health Care Specialist 11/13/2023 8:16 AM Signed Cardiac Rehabilitation [facility] Based Program Supervising Physician: Len Menendez Diagnosis: Aortic Valve Replacement Phase: 2 Monitor: Yes Session Number: 15 Today's exercise session was comprised of a warm-up, aerobic conditioning phase, aerobic cool-down, and free weight resistance training. Patient tolerated prescribed exercise workload. Tele SR-ST without ectopic beats. Vitals WNL for patient. No chest discomfort. No medication changes. This is a hospital based cardiac rehab program. Patient working towards exercise goals by increasing exercise duration. Patient working towards education goal by attending education sessions in cardiac rehabilitation. Patient has verbalized understanding of med diet education topic and the relation to disease managment. Patient's Daily Exercise Log will be scanned into [employer]SEC once it is completed. These can be viewed by going under the Scanned Documents tab and looking for documents labeled Cardiac Rehabilitation. Daily Exercise Logs contain exercise data such as, but not limited to modality, intensity, duration and frequency of exercise, along with vital signs pre-, during, and post-exercise. Refer to patient's paper medical record for ECG rhythm strips, physician prescribed Individualized Treatment Plan, and education sessions covered. Avelino Aburto, Health Care Specialist Referring Provider: DEENA FRANCOIS [[id number]] Allergies As of Date: 11/13/2023 (No Active Allergies) Date Reviewed: 09/18/2023 Reviewed by: Pat Ye HUC - Fully Assessed Reason for Visit: Cardiac Rehab [[id number]] Primary Visit Diagnosis:S/P AVR (aortic valve replacement) [Z95.2] Prescriptions as of 11/13/2023 - lisinopril (ZESTRIL) 5 mg tablet Take 1 tablet by mouth once daily. - empagliflozin (JARDIANCE) 10 mg tablet Take 1 tablet by mouth daily with breakfast. - doxycycline (VIBRA-TABS) 100 mg tablet Take 1 tablet by mouth two times a day. - omeprazole (PRILOSEC) 40 mg capsule Take 1 capsule by mouth once daily. - aspirin, enteric coated (ASPIRIN, ENTERIC COATED) 81 mg EC tablet Take 1 tablet by mouth once daily. - atorvastatin (LIPITOR) 20 mg tablet Take 1 tablet by mouth daily at bedtime. - cetirizine (ZYRTEC) 10 mg tablet Take 1 tablet by mouth once daily as needed for cold/allergy symptoms. - acetaminophen (TYLENOL) 325 mg tablet Take 2 tablets by mouth every 6 hours as needed (for mild surgical pain). - furosemide (LASIX) 40 mg tablet Take 1 tablet by mouth once daily for 7 days. - metoprolol succinate ER (TOPROL XL) 100 mg Take 1.5 tablets by mouth daily with breakfast AND 1 tablet daily at bedtime. - docusate sodium (COLACE) 100 mg capsule Take 1 capsule by mouth two times a day. - MULTIVITAMIN TAB Take one(1) tablet daily. Problem List As Of Date 11/13/2023 Noted Resolved JOINT PAIN-UNSPEC [M25.50] 05/20/2006 10/03/2006 SPRAIN SHOULDER/ARM NOS [[id number]] 05/20/2006 10/03/2006 Complete rupture of rotator cuff [M75.120] 10/03/2006 Obesity (BMI 30-39.9) [E66.9] 02/16/2011 Special screening for malignant neoplasms, colo*03/13/2011 Nonrheumatic aortic valve stenosis [I35.0] 06/25/2023 Aortic root dilatation (HCC) [I77.810] 07/24/2023 Angina pectoris (HCC) [I20.9] 07/24/2023 Discharge planning issues [Z02.9] 07/24/2023 Encounter for support and coordination of trans*07/24/2023 Aortic stenosis due to bicuspid aortic valve [Q*07/29/2023 On mechanically assisted ventilation (HCC) [Z99*07/29/2023 Hypovolemia [E86.1] 07/29/2023 AI (aortic insufficiency) [I35.1] 07/29/2023 Hypotension [I95.9] 07/29/2023 Postoperative pain [G89.18] 07/29/2023 Aphasia [R47.01] 07/30/2023 Primary hypertension [I10] 07/30/2023 Hypervolemia [E87.70] 08/01/2023 Postoperative ileus (HCC) [K91.89, K56.7] 08/02/2023 Hyperlipidemia LDL goal <70 [E78.5] 08/03/2023 Gastroesophageal reflux disease without esophag*08/03/2023 ABLA (acute blood loss anemia) [D62] 08/03/2023 Thrombocytopenia (HCC) [D69.6] 08/03/2023 Hypertrophic cardiomyopathy (HCC) [I42.2] 09/18/2023 Obesity, Class I, BMI 30-34.9 [E66.9] 09/18/2023 Encounter Status:Closed by AVELINO ABURTO on 11/13/23 [facility] Office Visit (MIRI) MARTIN HENSON ([id number]) 1955 M Date Time Provider Department 11/11/23 8:00 AM CARD REHAB PHASE 2 [facility] During your visit today, we recorded the following information about you: Katie Decker, Health Care Specialist 11/11/2023 8:16 AM Signed Cardiac Rehabilitation Hospital Based Program Supervising Physician: Len Menendez Diagnosis: Aortic Valve Replacement Phase: 2 Monitor: Yes Session Number: 14 Today's exercise session was comprised of a warm-up, aerobic conditioning phase, aerobic cool-down, and free weight resistance training. Patient tolerated prescribed exercise workload. Tele SR-ST without ectopic beats. Vitals WNL for patient. No chest discomfort. No medication changes. This is a hospital based cardiac rehab program. Patient working towards exercise goals by increasing exercise intensity. Patient working towards education goal by attending education sessions in cardiac rehabilitation. Patient has verbalized understanding of Reading [employer]els education topic and the relation to disease managment. Patient's Daily Exercise Log will be scanned into TOPSEC once it is completed. These can be viewed by going under the Scanned Documents tab and looking for documents labeled Cardiac Rehabilitation. Daily Exercise Logs contain exercise data such as, but not limited to modality, intensity, duration and frequency of exercise, along with vital signs pre-, during, and post-exercise. Refer to patient's paper medical record for ECG rhythm strips, physician prescribed Individualized Treatment Plan, and education sessions covered. Katie Decker, Health Care Specialist Referring Provider: DEENA FRANCOIS [[id number]] Allergies As of Date: 11/11/2023 (No Active Allergies) Date Reviewed: 09/18/2023 Reviewed by: Pat Ye HUC - Fully Assessed Reason for Visit: Cardiac Rehab [[id number]] Primary Visit Diagnosis:S/P AVR (aortic valve replacement) [Z95.2] Prescriptions as of 11/11/2023 - lisinopril (ZESTRIL) 5 mg tablet Take 1 tablet by mouth once daily. - empagliflozin (JARDIANCE) 10 mg tablet Take 1 tablet by mouth daily with breakfast. - doxycycline (VIBRA-TABS) 100 mg tablet Take 1 tablet by mouth two times a day. - omeprazole (PRILOSEC) 40 mg capsule Take 1 capsule by mouth once daily. - aspirin, enteric coated (ASPIRIN, ENTERIC COATED) 81 mg EC tablet Take 1 tablet by mouth once daily. - atorvastatin (LIPITOR) 20 mg tablet Take 1 tablet by mouth daily at bedtime. - cetirizine (ZYRTEC) 10 mg tablet Take 1 tablet by mouth once daily as needed for cold/allergy symptoms. - acetaminophen (TYLENOL) 325 mg tablet Take 2 tablets by mouth every 6 hours as needed (for mild surgical pain). - furosemide (LASIX) 40 mg tablet Take 1 tablet by mouth once daily for 7 days. - metoprolol succinate ER (TOPROL XL) 100 mg Take 1.5 tablets by mouth daily with breakfast AND 1 tablet daily at bedtime. - docusate sodium (COLACE) 100 mg capsule Take 1 capsule by mouth two times a day. - MULTIVITAMIN TAB Take one(1) tablet daily. Problem List As Of Date 11/11/2023 Noted Resolved JOINT PAIN-UNSPEC [M25.50] 05/20/2006 10/03/2006 SPRAIN SHOULDER/ARM NOS [[id number]] 05/20/2006 10/03/2006 Complete rupture of rotator cuff [M75.120] 10/03/2006 Obesity (BMI 30-39.9) [E66.9] 02/16/2011 Special screening for malignant neoplasms, colo*03/13/2011 Nonrheumatic aortic valve stenosis [I35.0] 06/25/2023 Aortic root dilatation (HCC) [I77.810] 07/24/2023 Angina pectoris (HCC) [I20.9] 07/24/2023 Discharge planning issues [Z02.9] 07/24/2023 Encounter for support and coordination of trans*07/24/2023 Aortic stenosis due to bicuspid aortic valve [Q*07/29/2023 On mechanically assisted ventilation (HCC) [Z99*07/29/2023 Hypovolemia [E86.1] 07/29/2023 AI (aortic insufficiency) [I35.1] 07/29/2023 Hypotension [I95.9] 07/29/2023 Postoperative pain [G89.18] 07/29/2023 Aphasia [R47.01] 07/30/2023 Primary hypertension [I10] 07/30/2023 Hypervolemia [E87.70] 08/01/2023 Postoperative ileus (HCC) [K91.89, K56.7] 08/02/2023 Hyperlipidemia LDL goal <70 [E78.5] 08/03/2023 Gastroesophageal reflux disease without esophag*08/03/2023 ABLA (acute blood loss anemia) [D62] 08/03/2023 Thrombocytopenia (HCC) [D69.6] 08/03/2023 Hypertrophic cardiomyopathy (HCC) [I42.2] 09/18/2023 Obesity, Class I, BMI 30-34.9 [E66.9] 09/18/2023 Encounter Status:Closed by KATIE DECKER on 11/11/23 [facility] 11-08-2023 [facility] Office Visit (MIRI) MARTIN HENSON ([id number]) 1955 M Date Time Provider Department 11/08/23 8:00 AM CARD REHAB PHASE 2 [facility] During your visit today, we recorded the following information about you: Pulse Blood pressure Weight 73/minute 128/76 111.1 kg Avelino Aburto, Health Care Specialist 11/08/2023 8:14 AM Cosign Needed Cardiac Rehabilitation Hospital Based Program Supervising Physician: Len Menendez Diagnosis: AVR Phase: 2 Monitor: Yes Session Number: 13 Today's exercise session was comprised of a warm-up, aerobic conditioning phase, aerobic cool-down, and free weight resistance training. Patient tolerated prescribed exercise workload. Tele SB-SR-ST without ectopic beats. Vitals WNL for patient. No chest discomfort. No medication changes. This is a hospital based cardiac rehab program. Patient working towards exercise goals by sustaining exercise intensity and duration. Patient working towards education goal by attending education sessions in cardiac rehabilitation. Patient has verbalized understanding of med diet education topic and the relation to disease managment. Patient's Daily Exercise Log will be scanned into [employer]SEC once it is completed. These can be viewed by going under the Scanned Documents tab and looking for documents labeled Cardiac Rehabilitation. Daily Exercise Logs contain exercise data such as, but not limited to modality, intensity, duration and frequency of exercise, along with vital signs pre-, during, and post-exercise. Refer to patient's paper medical record for ECG rhythm strips, physician prescribed Individualized Treatment Plan, and education sessions covered. Avelino Aburto, Health Care Specialist Patient's 30 day ITP located in 30 day doc flowsheet. Referring Provider: DEENA FRANCOIS [[id number]] Allergies As of Date: 11/08/2023 (No Active Allergies) Date Reviewed: 09/18/2023 Reviewed by: Pat Ye HUC - Fully Assessed Reason for Visit: Cardiac Rehab [[id number]] Cmt: 30 day assessment Primary Visit Diagnosis:S/P AVR (aortic valve replacement) [Z95.2] Prescriptions as of 11/08/2023 - lisinopril (ZESTRIL) 5 mg tablet Take 1 tablet by mouth once daily. - empagliflozin (JARDIANCE) 10 mg tablet Take 1 tablet by mouth daily with breakfast. - doxycycline (VIBRA-TABS) 100 mg tablet Take 1 tablet by mouth two times a day. - omeprazole (PRILOSEC) 40 mg capsule Take 1 capsule by mouth once daily. - aspirin, enteric coated (ASPIRIN, ENTERIC COATED) 81 mg EC tablet Take 1 tablet by mouth once daily. - atorvastatin (LIPITOR) 20 mg tablet Take 1 tablet by mouth daily at bedtime. - cetirizine (ZYRTEC) 10 mg tablet Take 1 tablet by mouth once daily as needed for cold/allergy symptoms. - acetaminophen (TYLENOL) 325 mg tablet Take 2 tablets by mouth every 6 hours as needed (for mild surgical pain). - furosemide (LASIX) 40 mg tablet Take 1 tablet by mouth once daily for 7 days. - metoprolol succinate ER (TOPROL XL) 100 mg Take 1.5 tablets by mouth daily with breakfast AND 1 tablet daily at bedtime. - docusate sodium (COLACE) 100 mg capsule Take 1 capsule by mouth two times a day. - MULTIVITAMIN TAB Take one(1) tablet daily. Problem List As Of Date 11/08/2023 Noted Resolved JOINT PAIN-UNSPEC [M25.50] 05/20/2006 10/03/2006 SPRAIN SHOULDER/ARM NOS [[id number]] 05/20/2006 10/03/2006 Complete rupture of rotator cuff [M75.120] 10/03/2006 Obesity (BMI 30-39.9) [E66.9] 02/16/2011 Special screening for malignant neoplasms, colo*03/13/2011 Nonrheumatic aortic valve stenosis [I35.0] 06/25/2023 Aortic root dilatation (HCC) [I77.810] 07/24/2023 Angina pectoris (HCC) [I20.9] 07/24/2023 Discharge planning issues [Z02.9] 07/24/2023 Encounter for support and coordination of trans*07/24/2023 Aortic stenosis due to bicuspid aortic valve [Q*07/29/2023 On mechanically assisted ventilation (HCC) [Z99*07/29/2023 Hypovolemia [E86.1] 07/29/2023 AI (aortic insufficiency) [I35.1] 07/29/2023 Hypotension [I95.9] 07/29/2023 Postoperative pain [G89.18] 07/29/2023 Aphasia [R47.01] 07/30/2023 Primary hypertension [I10] 07/30/2023 Hypervolemia [E87.70] 08/01/2023 Postoperative ileus (HCC) [K91.89, K56.7] 08/02/2023 Hyperlipidemia LDL goal <70 [E78.5] 08/03/2023 Gastroesophageal reflux disease without esophag*08/03/2023 ABLA (acute blood loss anemia) [D62] 08/03/2023 Thrombocytopenia (HCC) [D69.6] 08/03/2023 Hypertrophic cardiomyopathy (HCC) [I42.2] 09/18/2023 Obesity, Class I, BMI 30-34.9 [E66.9] 09/18/2023 Encounter Status:Closed by AVELINO ABURTO on 11/08/23 [facility] Office Visit (MIRI) MARTIN HENSON ([id number]) 1955 M Date Time Provider Department 11/06/23 8:00 AM CARD REHAB PHASE 2 [facility] During your visit today, we recorded the following information about you: Josiah Suh, lease picker 11/06/2023 8:19 AM Signed Cardiac Rehabilitation Hospital Based Program Supervising Physician: Len Menendez Diagnosis: Aortic Valve Replacement Phase: 2 Monitor: Yes Session Number: 12 Today's exercise session was comprised of a warm-up, aerobic conditioning phase, aerobic cool-down, and free weight resistance training. Patient tolerated prescribed exercise workload. Tele SR-ST without ectopic beats. Vitals WNL for patient. No chest discomfort. No medication changes. This is a hospital based cardiac rehab program. Patient working towards exercise goals by increasing exercise intensity. Patient working towards education goal by attending education sessions in cardiac rehabilitation. Patient has verbalized understanding of Heart Failure education topic and the relation to disease managment. Patient's Daily Exercise Log will be scanned into [employer]SEC once it is completed. These can be viewed by going under the Scanned Documents tab and looking for documents labeled Cardiac Rehabilitation. Daily Exercise Logs contain exercise data such as, but not limited to modality, intensity, duration and frequency of exercise, along with vital signs pre-, during, and post-exercise. Refer to patient's paper medical record for ECG rhythm strips, physician prescribed Individualized Treatment Plan, and education sessions covered. Josiah Suh, Health Care Specialist Referring Provider: DEENA FRANCOIS [[id number]] Allergies As of Date: 11/06/2023 (No Active Allergies) Date Reviewed: 09/18/2023 Reviewed by: Pat Ye HUC - Fully Assessed Reason for Visit: Cardiac Rehab [[id number]] Primary Visit Diagnosis:S/P AVR (aortic valve replacement) [Z95.2] Prescriptions as of 11/06/2023 - lisinopril (ZESTRIL) 5 mg tablet Take 1 tablet by mouth once daily. - empagliflozin (JARDIANCE) 10 mg tablet Take 1 tablet by mouth daily with breakfast. - doxycycline (VIBRA-TABS) 100 mg tablet Take 1 tablet by mouth two times a day. - omeprazole (PRILOSEC) 40 mg capsule Take 1 capsule by mouth once daily. - aspirin, enteric coated (ASPIRIN, ENTERIC COATED) 81 mg EC tablet Take 1 tablet by mouth once daily. - atorvastatin (LIPITOR) 20 mg tablet Take 1 tablet by mouth daily at bedtime. - cetirizine (ZYRTEC) 10 mg tablet Take 1 tablet by mouth once daily as needed for cold/allergy symptoms. - acetaminophen (TYLENOL) 325 mg tablet Take 2 tablets by mouth every 6 hours as needed (for mild surgical pain). - furosemide (LASIX) 40 mg tablet Take 1 tablet by mouth once daily for 7 days. - metoprolol succinate ER (TOPROL XL) 100 mg Take 1.5 tablets by mouth daily with breakfast AND 1 tablet daily at bedtime. - docusate sodium (COLACE) 100 mg capsule Take 1 capsule by mouth two times a day. - MULTIVITAMIN TAB Take one(1) tablet daily. Problem List As Of Date 11/06/2023 Noted Resolved JOINT PAIN-UNSPEC [M25.50] 05/20/2006 10/03/2006 SPRAIN SHOULDER/ARM NOS [[id number]] 05/20/2006 10/03/2006 Complete rupture of rotator cuff [M75.120] 10/03/2006 Obesity (BMI 30-39.9) [E66.9] 02/16/2011 Special screening for malignant neoplasms, colo*03/13/2011 Nonrheumatic aortic valve stenosis [I35.0] 06/25/2023 Aortic root dilatation (HCC) [I77.810] 07/24/2023 Angina pectoris (HCC) [I20.9] 07/24/2023 Discharge planning issues [Z02.9] 07/24/2023 Encounter for support and coordination of trans*07/24/2023 Aortic stenosis due to bicuspid aortic valve [Q*07/29/2023 On mechanically assisted ventilation (HCC) [Z99*07/29/2023 Hypovolemia [E86.1] 07/29/2023 AI (aortic insufficiency) [I35.1] 07/29/2023 Hypotension [I95.9] 07/29/2023 Postoperative pain [G89.18] 07/29/2023 Aphasia [R47.01] 07/30/2023 Primary hypertension [I10] 07/30/2023 Hypervolemia [E87.70] 08/01/2023 Postoperative ileus (HCC) [K91.89, K56.7] 08/02/2023 Hyperlipidemia LDL goal <70 [E78.5] 08/03/2023 Gastroesophageal reflux disease without esophag*08/03/2023 ABLA (acute blood loss anemia) [D62] 08/03/2023 Thrombocytopenia (HCC) [D69.6] 08/03/2023 Hypertrophic cardiomyopathy (HCC) [I42.2] 09/18/2023 Obesity, Class I, BMI 30-34.9 [E66.9] 09/18/2023 Encounter Status:Closed by JOSIAH SUH on 11/06/23 [facility] 11-04-2023 [facility] Office Visit (MIRI) MARTIN HENSON ([id number]) 1955 M Date Time Provider Department 11/04/23 8:00 AM CARD REHAB PHASE 2 [facility] During your visit today, we recorded the following information about you: Katie Decker, Health Care Specialist 11/04/2023 8:21 AM Signed Cardiac Rehabilitation [facility] Supervising Physician: Len Menendez Diagnosis: Aortic Valve Replacement Phase: 2 Monitor: Yes Session Number: 11 Today's exercise session was comprised of a warm-up, aerobic conditioning phase, aerobic cool-down, and free weight resistance training. Patient tolerated prescribed exercise workload. Tele SR-ST without ectopic beats. Vitals WNL for patient. No chest discomfort. No medication changes. This is a hospital based cardiac rehab program. Patient working towards exercise goals by increasing exercise duration. Patient working towards education goal by attending education sessions in cardiac rehabilitation. Patient has verbalized understanding of Heart Valves education topic and the relation to disease managment. Patient's Daily Exercise Log will be scanned into [employer]SEC once it is completed. These can be viewed by going under the Scanned Documents tab and looking for documents labeled Cardiac Rehabilitation. Daily Exercise Logs contain exercise data such as, but not limited to modality, intensity, duration and frequency of exercise, along with vital signs pre-, during, and post-exercise. Refer to patient's paper medical record for ECG rhythm strips, physician prescribed Individualized Treatment Plan, and education sessions covered. Katie Decker Health Care Specialist Referring Provider: DEENA FRANCOIS [[id number]] Allergies As of Date: 11/04/2023 (No Active Allergies) Date Reviewed: 09/18/2023 Reviewed by: Pat Ye HUC - Fully Assessed Reason for Visit: Cardiac Rehab [[id number]] Primary Visit Diagnosis:S/P AVR (aortic valve replacement) [Z95.2] Prescriptions as of 11/04/2023 - lisinopril (ZESTRIL) 5 mg tablet Take 1 tablet by mouth once daily. - empagliflozin (JARDIANCE) 10 mg tablet Take 1 tablet by mouth daily with breakfast. - doxycycline (VIBRA-TABS) 100 mg tablet Take 1 tablet by mouth two times a day. - omeprazole (PRILOSEC) 40 mg capsule Take 1 capsule by mouth once daily. - aspirin, enteric coated (ASPIRIN, ENTERIC COATED) 81 mg EC tablet Take 1 tablet by mouth once daily. - atorvastatin (LIPITOR) 20 mg tablet Take 1 tablet by mouth daily at bedtime. - cetirizine (ZYRTEC) 10 mg tablet Take 1 tablet by mouth once daily as needed for cold/allergy symptoms. - acetaminophen (TYLENOL) 325 mg tablet Take 2 tablets by mouth every 6 hours as needed (for mild surgical pain). - furosemide (LASIX) 40 mg tablet Take 1 tablet by mouth once daily for 7 days. - metoprolol succinate ER (TOPROL XL) 100 mg Take 1.5 tablets by mouth daily with breakfast AND 1 tablet daily at bedtime. - docusate sodium (COLACE) 100 mg capsule Take 1 capsule by mouth two times a day. - MULTIVITAMIN TAB Take one(1) tablet daily. Problem List As Of Date 11/04/2023 Noted Resolved JOINT PAIN-UNSPEC [M25.50] 05/20/2006 10/03/2006 SPRAIN SHOULDER/ARM NOS [[id number]] 05/20/2006 10/03/2006 Complete rupture of rotator cuff [M75.120] 10/03/2006 Obesity (BMI 30-39.9) [E66.9] 02/16/2011 Special screening for malignant neoplasms, colo*03/13/2011 Nonrheumatic aortic valve stenosis [I35.0] 06/25/2023 Aortic root dilatation (HCC) [I77.810] 07/24/2023 Angina pectoris (HCC) [I20.9] 07/24/2023 Discharge planning issues [Z02.9] 07/24/2023 Encounter for support and coordination of trans*07/24/2023 Aortic stenosis due to bicuspid aortic valve [Q*07/29/2023 On mechanically assisted ventilation (HCC) [Z99*07/29/2023 Hypovolemia [E86.1] 07/29/2023 AI (aortic insufficiency) [I35.1] 07/29/2023 Hypotension [I95.9] 07/29/2023 Postoperative pain [G89.18] 07/29/2023 Aphasia [R47.01] 07/30/2023 Primary hypertension [I10] 07/30/2023 Hypervolemia [E87.70] 08/01/2023 Postoperative ileus (HCC) [K91.89, K56.7] 08/02/2023 Hyperlipidemia LDL goal <70 [E78.5] 08/03/2023 Gastroesophageal reflux disease without esophag*08/03/2023 ABLA (acute blood loss anemia) [D62] 08/03/2023 Thrombocytopenia (HCC) [D69.6] 08/03/2023 Hypertrophic cardiomyopathy (HCC) [I42.2] 09/18/2023 Obesity, Class I, BMI 30-34.9 [E66.9] 09/18/2023 Encounter Status:Closed by KAT[facility]KER [facility]04[facility] Office Visit (MIRI) MARTIN HENSON ([id number]) 1955 M Date Time Provider Department 11/01/23 8:00 AM CARD REHAB PHASE 2 [facility] During your visit today, we recorded the following information about you: Katie Decker, Health Care Specialist 11/01/2023 8:01 AM Signed Cardiac Rehabilitation [facility] Based Program Supervising Physician: Len Menendez Diagnosis: Aortic Valve Replacement Phase: 2 Monitor: Yes Session Number: 10 Today's exercise session was comprised of a warm-up, aerobic conditioning phase, aerobic cool-down, and free weight resistance training. Patient tolerated prescribed exercise workload. Tele SR-ST without ectopic beats. Vitals WNL for patient. No chest discomfort. No medication changes. This is a hospital based cardiac rehab program. Patient working towards exercise goals by sustaining exercise intensity and duration. Patient working towards education goal by attending education sessions in cardiac rehabilitation. Patient has verbalized understanding of Angina, CA, NTG education topic and the relation to disease managment. Patient's Daily Exercise Log will be scanned into [employer]SEC once it is completed. These can be viewed by going under the Scanned Documents tab and looking for documents labeled Cardiac Rehabilitation. Daily Exercise Logs contain exercise data such as, but not limited to modality, intensity, duration and frequency of exercise, along with vital signs pre-, during, and post-exercise. Refer to patient's paper medical record for ECG rhythm strips, physician prescribed Individualized Treatment Plan, and education sessions covered. Katie Decker, Health Care Specialist Referring Provider: DEENA FRANCOIS [[id number]] Allergies As of Date: 11/01/2023 (No Active Allergies) Date Reviewed: 09/18/2023 Reviewed by: Pat Ye HUC - Fully Assessed Reason for Visit: Cardiac Rehab [[id number]] Primary Visit Diagnosis:S/P AVR (aortic valve replacement) [Z95.2] Prescriptions as of 11/01/2023 - lisinopril (ZESTRIL) 5 mg tablet Take 1 tablet by mouth once daily. - empagliflozin (JARDIANCE) 10 mg tablet Take 1 tablet by mouth daily with breakfast. - doxycycline (VIBRA-TABS) 100 mg tablet Take 1 tablet by mouth two times a day. - omeprazole (PRILOSEC) 40 mg capsule Take 1 capsule by mouth once daily. - aspirin, enteric coated (ASPIRIN, ENTERIC COATED) 81 mg EC tablet Take 1 tablet by mouth once daily. - atorvastatin (LIPITOR) 20 mg tablet Take 1 tablet by mouth daily at bedtime. - cetirizine (ZYRTEC) 10 mg tablet Take 1 tablet by mouth once daily as needed for cold/allergy symptoms. - acetaminophen (TYLENOL) 325 mg tablet Take 2 tablets by mouth every 6 hours as needed (for mild surgical pain). - furosemide (LASIX) 40 mg tablet Take 1 tablet by mouth once daily for 7 days. - metoprolol succinate ER (TOPROL XL) 100 mg Take 1.5 tablets by mouth daily with breakfast AND 1 tablet daily at bedtime. - docusate sodium (COLACE) 100 mg capsule Take 1 capsule by mouth two times a day. - MULTIVITAMIN TAB Take one(1) tablet daily. Problem List As Of Date 11/01/2023 Noted Resolved JOINT PAIN-UNSPEC [M25.50] 05/20/2006 10/03/2006 SPRAIN SHOULDER/ARM NOS [[id number]] 05/20/2006 10/03/2006 Complete rupture of rotator cuff [M75.120] 10/03/2006 Obesity (BMI 30-39.9) [E66.9] 02/16/2011 Special screening for malignant neoplasms, colo*03/13/2011 Nonrheumatic aortic valve stenosis [I35.0] 06/25/2023 Aortic root dilatation (HCC) [I77.810] 07/24/2023 Angina pectoris (HCC) [I20.9] 07/24/2023 Discharge planning issues [Z02.9] 07/24/2023 Encounter for support and coordination of trans*07/24/2023 Aortic stenosis due to bicuspid aortic valve [Q*07/29/2023 On mechanically assisted ventilation (HCC) [Z99*07/29/2023 Hypovolemia [E86.1] 07/29/2023 AI (aortic insufficiency) [I35.1] 07/29/2023 Hypotension [I95.9] 07/29/2023 Postoperative pain [G89.18] 07/29/2023 Aphasia [R47.01] 07/30/2023 Primary hypertension [I10] 07/30/2023 Hypervolemia [E87.70] 08/01/2023 Postoperative ileus (HCC) [K91.89, K56.7] 08/02/2023 Hyperlipidemia LDL goal <70 [E78.5] 08/03/2023 Gastroesophageal reflux disease without esophag*08/03/2023 ABLA (acute blood loss anemia) [D62] 08/03/2023 Thrombocytopenia (HCC) [D69.6] 08/03/2023 Hypertrophic cardiomyopathy (HCC) [I42.2] 09/18/2023 Obesity, Class I, BMI 30-34.9 [E66.9] 09/18/2023 Encounter Status:Closed by K[facility] DECKER [facility] Office Visit (MIRI) MARTIN HENSON ([id number]) 1955 Date Time Provider Department 10/30/23 8:00 AM CARD REHAB PHASE 2 [facility] During your visit today, we recorded the following information about you: Katie Decker, Health Care Specialist 10/30/2023 8:09 AM Signed Cardiac Rehabilitation Hospital Based Program Supervising Physician: Len Menendez Diagnosis: Aortic Valve Replacement Phase: 2 Monitor: Yes Session Number: 9 Today's exercise session was comprised of a warm-up, aerobic conditioning phase, aerobic cool-down, and free weight resistance training. Patient tolerated prescribed exercise workload. Tele SR-ST without ectopic beats. Vitals WNL for patient. No chest discomfort. No medication changes. This is a hospital based cardiac rehab program. Patient working towards exercise goals by sustaining exercise intensity and duration. Patient working towards education goal by attending education sessions in cardiac rehabilitation. Patient has verbalized understanding of CAD education topic and the relation to disease managment. Patient's Daily Exercise Log will be scanned into [employer]SEC once it is completed. These can be viewed by going under the Scanned Documents tab and looking for documents labeled Cardiac Rehabilitation. Daily Exercise Logs contain exercise data such as, but not limited to modality, intensity, duration and frequency of exercise, along with vital signs pre-, during, and post-exercise. Refer to patient's paper medical record for ECG rhythm strips, physician prescribed Individualized Treatment Plan, and education sessions covered. Katie Decker Health Care Specialist Referring Provider: DEENA FRANCOIS [[id number]] Allergies As of Date: 10/30/2023 (No Active Allergies) Date Reviewed: 09/18/2023 Reviewed by: Pat Ye HUC - Fully Assessed Reason for Visit: Cardiac Rehab [[id number]] Primary Visit Diagnosis:S/P AVR (aortic valve replacement) [Z95.2] Prescriptions as of 10/30/2023 - lisinopril (ZESTRIL) 5 mg tablet Take 1 tablet by mouth once daily. - empagliflozin (JARDIANCE) 10 mg tablet Take 1 tablet by mouth daily with breakfast. - doxycycline (VIBRA-TABS) 100 mg tablet Take 1 tablet by mouth two times a day. - omeprazole (PRILOSEC) 40 mg capsule Take 1 capsule by mouth once daily. - aspirin, enteric coated (ASPIRIN, ENTERIC COATED) 81 mg EC tablet Take 1 tablet by mouth once daily. - atorvastatin (LIPITOR) 20 mg tablet Take 1 tablet by mouth daily at bedtime. - cetirizine (ZYRTEC) 10 mg tablet Take 1 tablet by mouth once daily as needed for cold/allergy symptoms. - acetaminophen (TYLENOL) 325 mg tablet Take 2 tablets by mouth every 6 hours as needed (for mild surgical pain). - furosemide (LASIX) 40 mg tablet Take 1 tablet by mouth once daily for 7 days. - metoprolol succinate ER (TOPROL XL) 100 mg Take 1.5 tablets by mouth daily with breakfast AND 1 tablet daily at bedtime. - docusate sodium (COLACE) 100 mg capsule Take 1 capsule by mouth two times a day. - MULTIVITAMIN TAB Take one(1) tablet daily. Problem List As Of Date 10/30/2023 Noted Resolved JOINT PAIN-UNSPEC [M25.50] 05/20/2006 10/03/2006 SPRAIN SHOULDER/ARM NOS [[id number]] 05/20/2006 10/03/2006 Complete rupture of rotator cuff [M75.120] 10/03/2006 Obesity (BMI 30-39.9) [E66.9] 02/16/2011 Special screening for malignant neoplasms, colo*03/13/2011 Nonrheumatic aortic valve stenosis [I35.0] 06/25/2023 Aortic root dilatation (HCC) [I77.810] 07/24/2023 Angina pectoris (HCC) [I20.9] 07/24/2023 Discharge planning issues [Z02.9] 07/24/2023 Encounter for support and coordination of trans*07/24/2023 Aortic stenosis due to bicuspid aortic valve [Q*07/29/2023 On mechanically assisted ventilation (HCC) [Z99*07/29/2023 Hypovolemia [E86.1] 07/29/2023 AI (aortic insufficiency) [I35.1] 07/29/2023 Hypotension [I95.9] 07/29/2023 Postoperative pain [G89.18] 07/29/2023 Aphasia [R47.01] 07/30/2023 Primary hypertension [I10] 07/30/2023 Hypervolemia [E87.70] 08/01/2023 Postoperative ileus (HCC) [K91.89, K56.7] 08/02/2023 Hyperlipidemia LDL goal <70 [E78.5] 08/03/2023 Gastroesophageal reflux disease without esophag*08/03/2023 ABLA (acute blood loss anemia) [D62] 08/03/2023 Thrombocytopenia (HCC) [D69.6] 08/03/2023 Hypertrophic cardiomyopathy (HCC) [I42.2] 09/18/2023 Obesity, Class I, BMI 30-34.9 [E66.9] 09/18/2023 Encounter Status:Closed by KATIE DECKER on 10[facility]30/23 [facility] Office Visit (MIRI) MARTIN HENSON ([id number]) 1955 M Date Time Provider Department 10/28/23 8:00 AM CARD REHAB PHASE 2 [facility] During your visit today, we recorded the following information about you: Avelino Aburto, Health Care Specialist 10/28/2023 8:12 AM Signed Cardiac Rehabilitation Hospital Based Program Supervising Physician: Len Menendez Diagnosis: Aortic Valve Replacement Phase: 2 Monitor: Yes Session Number: 8 Today's exercise session was comprised of a warm-up, aerobic conditioning phase, aerobic cool-down, and free weight resistance training. Patient tolerated prescribed exercise workload. Tele SR-ST without ectopic beats. Vitals WNL for patient. No chest discomfort. No medication changes. This is a hospital based cardiac rehab program. Patient working towards exercise goals by increasing exercise duration. Patient working towards education goal by attending education sessions in cardiac rehabilitation. Patient has verbalized understanding of cardiac AANDP education topic and the relation to disease managment. Patient's Daily Exercise Log will be scanned into [employer]SEC once it is completed. These can be viewed by going under the Scanned Documents tab and looking for documents labeled Cardiac Rehabilitation. Daily Exercise Logs contain exercise data such as, but not limited to modality, intensity, duration and frequency of exercise, along with vital signs pre-, during, and post-exercise. Refer to patient's paper medical record for ECG rhythm strips, physician prescribed Individualized Treatment Plan, and education sessions covered. Avelino Aburto, Health Care Specialist Referring Provider: DEENA FRANCOIS [[id number]] Allergies As of Date: 10/28/2023 (No Active Allergies) Date Reviewed: 09/18/2023 Reviewed by: Pat Ye HUC - Fully Assessed Reason for Visit: Cardiac Rehab [[id number]] Primary Visit Diagnosis:S/P AVR (aortic valve replacement) [Z95.2] Prescriptions as of 10/28/2023 - lisinopril (ZESTRIL) 5 mg tablet Take 1 tablet by mouth once daily. - empagliflozin (JARDIANCE) 10 mg tablet Take 1 tablet by mouth daily with breakfast. - doxycycline (VIBRA-TABS) 100 mg tablet Take 1 tablet by mouth two times a day. - omeprazole (PRILOSEC) 40 mg capsule Take 1 capsule by mouth once daily. - aspirin, enteric coated (ASPIRIN, ENTERIC COATED) 81 mg EC tablet Take 1 tablet by mouth once daily. - atorvastatin (LIPITOR) 20 mg tablet Take 1 tablet by mouth daily at bedtime. - cetirizine (ZYRTEC) 10 mg tablet Take 1 tablet by mouth once daily as needed for cold/allergy symptoms. - acetaminophen (TYLENOL) 325 mg tablet Take 2 tablets by mouth every 6 hours as needed (for mild surgical pain). - furosemide (LASIX) 40 mg tablet Take 1 tablet by mouth once daily for 7 days. - metoprolol succinate ER (TOPROL XL) 100 mg Take 1.5 tablets by mouth daily with breakfast AND 1 tablet daily at bedtime. - docusate sodium (COLACE) 100 mg capsule Take 1 capsule by mouth two times a day. - MULTIVITAMIN TAB Take one(1) tablet daily. Problem List As Of Date 10/28/2023 Noted Resolved JOINT PAIN-UNSPEC [M25.50] 05/20/2006 10/03/2006 SPRAIN SHOULDER/ARM NOS [[id number]] 05/20/2006 10/03/2006 Complete rupture of rotator cuff [M75.120] 10/03/2006 Obesity (BMI 30-39.9) [E66.9] 02/16/2011 Special screening for malignant neoplasms, colo*03/13/2011 Nonrheumatic aortic valve stenosis [I35.0] 06/25/2023 Aortic root dilatation (HCC) [I77.810] 07/24/2023 Angina pectoris (HCC) [I20.9] 07/24/2023 Discharge planning issues [Z02.9] 07/24/2023 Encounter for support and coordination of trans*07/24/2023 Aortic stenosis due to bicuspid aortic valve [Q*07/29/2023 On mechanically assisted ventilation (HCC) [Z99*07/29/2023 Hypovolemia [E86.1] 07/29/2023 AI (aortic insufficiency) [I35.1] 07/29/2023 Hypotension [I95.9] 07/29/2023 Postoperative pain [G89.18] 07/29/2023 Aphasia [R47.01] 07/30/2023 Primary hypertension [I10] 07/30/2023 Hypervolemia [E87.70] 08/01/2023 Postoperative ileus (HCC) [K91.89, K56.7] 08/02/2023 Hyperlipidemia LDL goal <70 [E78.5] 08/03/2023 Gastroesophageal reflux disease without esophag*08/03/2023 ABLA (acute blood loss anemia) [D62] 08/03/2023 Thrombocytopenia (HCC) [D69.6] 08/03/2023 Hypertrophic cardiomyopathy (HCC) [I42.2] 09/18/2023 Obesity, Class I, BMI 30-34.9 [E66.9] 09/18/2023 Encounter Status:Closed by AVELINO ABURTO on 10/28/23 [facility] (MIRI) MARTIN HENSON ([id number]) 1955 M Date Time Provider Department 10/25/23 8:00 AM CARD REHAB PHASE 2 [facility] During your visit today, we recorded the following information about you: Avelino Aburto, Health Care Specialist 10/25/2023 8:19 AM Signed Cardiac Rehabilitation [facility] Supervising Physician: Len Menendez Diagnosis: Aortic Valve Replacement Phase: 2 Monitor: Yes Session Number: 7 Today's exercise session was comprised of a warm-up, aerobic conditioning phase, aerobic cool-down, and free weight resistance training. Patient tolerated prescribed exercise workload. Tele SR-ST without ectopic beats. Vitals WNL for patient. No chest discomfort. No medication changes. This is a hospital based cardiac rehab program. Patient working towards exercise goals by increasing exercise intensity. Patient working towards education goal by attending education sessions in cardiac rehabilitation. Patient has verbalized understanding of advanced directives education topic and the relation to disease managment. Patient's Daily Exercise Log will be scanned into [employer]SEC once it is completed. These can be viewed by going under the Scanned Documents tab and looking for documents labeled Cardiac Rehabilitation. Daily Exercise Logs contain exercise data such as, but not limited to modality, intensity, duration and frequency of exercise, along with vital signs pre-, during, and post-exercise. Refer to patient's paper medical record for ECG rhythm strips, physician prescribed Individualized Treatment Plan, and education sessions covered. Avelino Aburto, Health Care Specialist Referring Provider: DEENA FRANCOIS [[id number]] Allergies As of Date: 10/25/2023 (No Active Allergies) Date Reviewed: 09/18/2023 Reviewed by: Pat Ye HUC - Fully Assessed Reason for Visit: Cardiac Rehab [[id number]] Primary Visit Diagnosis:S/P AVR (aortic valve replacement) [Z95.2] Prescriptions as of 10/25/2023 - lisinopril (ZESTRIL) 5 mg tablet Take 1 tablet by mouth once daily. - empagliflozin (JARDIANCE) 10 mg tablet Take 1 tablet by mouth daily with breakfast. - doxycycline (VIBRA-TABS) 100 mg tablet Take 1 tablet by mouth two times a day. - omeprazole (PRILOSEC) 40 mg capsule Take 1 capsule by mouth once daily. - aspirin, enteric coated (ASPIRIN, ENTERIC COATED) 81 mg EC tablet Take 1 tablet by mouth once daily. - atorvastatin (LIPITOR) 20 mg tablet Take 1 tablet by mouth daily at bedtime. - cetirizine (ZYRTEC) 10 mg tablet Take 1 tablet by mouth once daily as needed for cold/allergy symptoms. - acetaminophen (TYLENOL) 325 mg tablet Take 2 tablets by mouth every 6 hours as needed (for mild surgical pain). - furosemide (LASIX) 40 mg tablet Take 1 tablet by mouth once daily for 7 days. - metoprolol succinate ER (TOPROL XL) 100 mg Take 1.5 tablets by mouth daily with breakfast AND 1 tablet daily at bedtime. - docusate sodium (COLACE) 100 mg capsule Take 1 capsule by mouth two times a day. - MULTIVITAMIN TAB Take one(1) tablet daily. Problem List As Of Date 10/25/2023 Noted Resolved JOINT PAIN-UNSPEC [M25.50] 05/20/2006 10/03/2006 SPRAIN SHOULDER/ARM NOS [[id number]] 05/20/2006 10/03/2006 Complete rupture of rotator cuff [M75.120] 10/03/2006 Obesity (BMI 30-39.9) [E66.9] 02/16/2011 Special screening for malignant neoplasms, colo*03/13/2011 Nonrheumatic aortic valve stenosis [I35.0] 06/25/2023 Aortic root dilatation (HCC) [I77.810] 07/24/2023 Angina pectoris (HCC) [I20.9] 07/24/2023 Discharge planning issues [Z02.9] 07/24/2023 Encounter for support and coordination of trans*07/24/2023 Aortic stenosis due to bicuspid aortic valve [Q*07/29/2023 On mechanically assisted ventilation (HCC) [Z99*07/29/2023 Hypovolemia [E86.1] 07/29/2023 AI (aortic insufficiency) [I35.1] 07/29/2023 Hypotension [I95.9] 07/29/2023 Postoperative pain [G89.18] 07/29/2023 Aphasia [R47.01] 07/30/2023 Primary hypertension [I10] 07/30/2023 Hypervolemia [E87.70] 08/01/2023 Postoperative ileus (HCC) [K91.89, K56.7] 08/02/2023 Hyperlipidemia LDL goal <70 [E78.5] 08/03/2023 Gastroesophageal reflux disease without esophag*08/03/2023 ABLA (acute blood loss anemia) [D62] 08/03/2023 Thrombocytopenia (HCC) [D69.6] 08/03/2023 Hypertrophic cardiomyopathy (HCC) [I42.2] 09/18/2023 Obesity, Class I, BMI 30-34.9 [E66.9] 09/18/2023 Encounter Status:Closed by AVELINO ABURTO on 10[facility] Office Visit (MIRI) MARTIN HENSON ([id number]) 1955 M Date Time Provider Department 10/23/23 8:00 AM CARD REHAB PHASE 2 [facility] During your visit today, we recorded the following information about you: Josiah Suh, lease picker 10/23/2023 8:09 AM Signed Cardiac Rehabilitation Hospital Based Program Supervising Physician: Len Menendez Diagnosis: Aortic Valve Replacement Phase: 2 Monitor: Yes Session Number: 6 Today's exercise session was comprised of a warm-up, aerobic conditioning phase, aerobic cool-down, and free weight resistance training. Patient tolerated prescribed exercise workload. Tele SR-ST without ectopic beats. Vitals WNL for patient. No chest discomfort. No medication changes. This is a hospital based cardiac rehab program. Patient working towards exercise goals by increasing exercise duration. Patient working towards education goal by attending education sessions in cardiac rehabilitation. Patient has verbalized understanding of Depression education topic and the relation to disease managment. Patient's Daily Exercise Log will be scanned into [employer] once it is completed. These can be viewed by going under the Scanned Documents tab and looking for documents labeled Cardiac Rehabilitation. Daily Exercise Logs contain exercise data such as, but not limited to modality, intensity, duration and frequency of exercise, along with vital signs pre-, during, and post-exercise. Refer to patient's paper medical record for ECG rhythm strips, physician prescribed Individualized Treatment Plan, and education sessions covered. Josiah Suh, Health Care Specialist Referring Provider: DEENA FRANCOIS [[id number]] Allergies As of Date: 10/23/2023 (No Active Allergies) Date Reviewed: 09/18/2023 Reviewed by: Pat Ye HUC - Fully Assessed Reason for Visit: Cardiac Rehab [[id number]] Primary Visit Diagnosis:S/P AVR (aortic valve replacement) [Z95.2] Prescriptions as of 10/23/2023 - lisinopril (ZESTRIL) 5 mg tablet Take 1 tablet by mouth once daily. - empagliflozin (JARDIANCE) 10 mg tablet Take 1 tablet by mouth daily with breakfast. - doxycycline (VIBRA-TABS) 100 mg tablet Take 1 tablet by mouth two times a day. - omeprazole (PRILOSEC) 40 mg capsule Take 1 capsule by mouth once daily. - aspirin, enteric coated (ASPIRIN, ENTERIC COATED) 81 mg EC tablet Take 1 tablet by mouth once daily. - atorvastatin (LIPITOR) 20 mg tablet Take 1 tablet by mouth daily at bedtime. - cetirizine (ZYRTEC) 10 mg tablet Take 1 tablet by mouth once daily as needed for cold/allergy symptoms. - acetaminophen (TYLENOL) 325 mg tablet Take 2 tablets by mouth every 6 hours as needed (for mild surgical pain). - furosemide (LASIX) 40 mg tablet Take 1 tablet by mouth once daily for 7 days. - metoprolol succinate ER (TOPROL XL) 100 mg Take 1.5 tablets by mouth daily with breakfast AND 1 tablet daily at bedtime. - docusate sodium (COLACE) 100 mg capsule Take 1 capsule by mouth two times a day. - MULTIVITAMIN TAB Take one(1) tablet daily. Problem List As Of Date 10/23/2023 Noted Resolved JOINT PAIN-UNSPEC [M25.50] 05/20/2006 10/03/2006 SPRAIN SHOULDER/ARM NOS [[id number]] 05/20/2006 10/03/2006 Complete rupture of rotator cuff [M75.120] 10/03/2006 Obesity (BMI 30-39.9) [E66.9] 02/16/2011 Special screening for malignant neoplasms, colo*03/13/2011 Nonrheumatic aortic valve stenosis [I35.0] 06/25/2023 Aortic root dilatation (HCC) [I77.810] 07/24/2023 Angina pectoris (HCC) [I20.9] 07/24/2023 Discharge planning issues [Z02.9] 07/24/2023 Encounter for support and coordination of trans*07/24/2023 Aortic stenosis due to bicuspid aortic valve [Q*07/29/2023 On mechanically assisted ventilation (HCC) [Z99*07/29/2023 Hypovolemia [E86.1] 07/29/2023 AI (aortic insufficiency) [I35.1] 07/29/2023 Hypotension [I95.9] 07/29/2023 Postoperative pain [G89.18] 07/29/2023 Aphasia [R47.01] 07/30/2023 Primary hypertension [I10] 07/30/2023 Hypervolemia [E87.70] 08/01/2023 Postoperative ileus (HCC) [K91.89, K56.7] 08/02/2023 Hyperlipidemia LDL goal <70 [E78.5] 08/03/2023 Gastroesophageal reflux disease without esophag*08/03/2023 ABLA (acute blood loss anemia) [D62] 08/03/2023 Thrombocytopenia (HCC) [D69.6] 08/03/2023 Hypertrophic cardiomyopathy (HCC) [I42.2] 09/18/2023 Obesity, Class I, BMI 30-34.9 [E66.9] 09/18/2023 Encounter Status:[facility] Office Visit (MIRI) SENGROSS A ([id number]) 1955 M Date Time Provider Department 10/21/23 8:00 AM CARD REHAB PHASE 2 [facility] During your visit today, we recorded the following information about you: Avelino Aburto, Health Care Specialist 10/21/2023 8:17 AM Signed Cardiac Rehabilitation [facility] Program Supervising Physician: Len Menendez Diagnosis: Aortic Valve Replacement Phase: 2 Monitor: Yes Session Number: 5 Today's exercise session was comprised of a warm-up, aerobic conditioning phase, aerobic cool-down, and free weight resistance training. Patient tolerated prescribed exercise workload. Tele SR-ST without ectopic beats. Vitals WNL for patient. No chest discomfort. No medication changes. This is a hospital based cardiac rehab program. Patient working towards exercise goals by sustaining exercise intensity and duration. Patient working towards education goal by attending education sessions in cardiac rehabilitation. Patient has verbalized understanding of stress management education topic and the relation to disease managment. Patient's Daily Exercise Log will be scanned into [employer] once it is completed. These can be viewed by going under the Scanned Documents tab and looking for documents labeled Cardiac Rehabilitation. Daily Exercise Logs contain exercise data such as, but not limited to modality, intensity, duration and frequency of exercise, along with vital signs pre-, during, and post-exercise. Refer to patient's paper medical record for ECG rhythm strips, physician prescribed Individualized Treatment Plan, and education sessions covered. Avelino Aburto, Health Care Specialist Referring Provider: DEENA FRANCOIS [[id number]] Allergies As of Date: 10/21/2023 (No Active Allergies) Date Reviewed: 09/18/2023 Reviewed by: Pat Ye HUC - Fully Assessed Reason for Visit: Cardiac Rehab [[id number]] Primary Visit Diagnosis:S/P AVR (aortic valve replacement) [Z95.2] Prescriptions as of 10/21/2023 - lisinopril (ZESTRIL) 5 mg tablet Take 1 tablet by mouth once daily. - empagliflozin (JARDIANCE) 10 mg tablet Take 1 tablet by mouth daily with breakfast. - doxycycline (VIBRA-TABS) 100 mg tablet Take 1 tablet by mouth two times a day. - omeprazole (PRILOSEC) 40 mg capsule Take 1 capsule by mouth once daily. - aspirin, enteric coated (ASPIRIN, ENTERIC COATED) 81 mg EC tablet Take 1 tablet by mouth once daily. - atorvastatin (LIPITOR) 20 mg tablet Take 1 tablet by mouth daily at bedtime. - cetirizine (ZYRTEC) 10 mg tablet Take 1 tablet by mouth once daily as needed for cold/allergy symptoms. - acetaminophen (TYLENOL) 325 mg tablet Take 2 tablets by mouth every 6 hours as needed (for mild surgical pain). - furosemide (LASIX) 40 mg tablet Take 1 tablet by mouth once daily for 7 days. - metoprolol succinate ER (TOPROL XL) 100 mg Take 1.5 tablets by mouth daily with breakfast AND 1 tablet daily at bedtime. - docusate sodium (COLACE) 100 mg capsule Take 1 capsule by mouth two times a day. - MULTIVITAMIN TAB Take one(1) tablet daily. Problem List As Of Date 10/21/2023 Noted Resolved JOINT PAIN-UNSPEC [M25.50] 05/20/2006 10/03/2006 SPRAIN SHOULDER/ARM NOS [[id number]] 05/20/2006 10/03/2006 Complete rupture of rotator cuff [M75.120] 10/03/2006 Obesity (BMI 30-39.9) [E66.9] 02/16/2011 Special screening for malignant neoplasms, colo*03/13/2011 Nonrheumatic aortic valve stenosis [I35.0] 06/25/2023 Aortic root dilatation (HCC) [I77.810] 07/24/2023 Angina pectoris (HCC) [I20.9] 07/24/2023 Discharge planning issues [Z02.9] 07/24/2023 Encounter for support and coordination of trans*07/24/2023 Aortic stenosis due to bicuspid aortic valve [Q*07/29/2023 On mechanically assisted ventilation (HCC) [Z99*07/29/2023 Hypovolemia [E86.1] 07/29/2023 AI (aortic insufficiency) [I35.1] 07/29/2023 Hypotension [I95.9] 07/29/2023 Postoperative pain [G89.18] 07/29/2023 Aphasia [R47.01] 07/30/2023 Primary hypertension [I10] 07/30/2023 Hypervolemia [E87.70] 08/01/2023 Postoperative ileus (HCC) [K91.89, K56.7] 08/02/2023 Hyperlipidemia LDL goal <70 [E78.5] 08/03/2023 Gastroesophageal reflux disease without esophag*08/03/2023 ABLA (acute blood loss anemia) [D62] 08/03/2023 Thrombocytopenia (HCC) [D69.6] 08/03/2023 Hypertrophic cardiomyopathy (HCC) [I42.2] 09/18/2023 Obesity, Class I, BMI 30-34.9 [E66.9] 09/18/2023 Encounter Status:Closed by AVELINO ABURTO on 10/21/23 [facility] 10-18-2023 [facility] Office Visit (MIRI) MARTIN HENSON ([id number]) 1955 M Date Time Provider Department 10/18/23 8:00 AM CARD REHAB PHASE 2 [facility] During your visit today, we recorded the following information about you: Avelino Aburto, Health Care Specialist 10/18/2023 8:19 AM Signed Cardiac Rehabilitation Hospital Based Program Supervising Physician: Len Menendez Diagnosis: Aortic Valve Replacement Phase: 2 Monitor: Yes Session Number: 4 Today's exercise session was comprised of a warm-up, aerobic conditioning phase, aerobic cool-down, and free weight resistance training. Patient tolerated prescribed exercise workload. Tele SR-ST without ectopic beats. Vitals WNL for patient. No chest discomfort. No medication changes. This is a hospital based cardiac rehab program. Patient working towards exercise goals by sustaining exercise intensity and duration. Patient working towards education goal by attending education sessions in cardiac rehabilitation. Patient has verbalized understanding of exercise education topic and the relation to disease managment. Patient's Daily Exercise Log will be scanned into [employer] once it is completed. These can be viewed by going under the Scanned Documents tab and looking for documents labeled Cardiac Rehabilitation. Daily Exercise Logs contain exercise data such as, but not limited to modality, intensity, duration and frequency of exercise, along with vital signs pre-, during, and post-exercise. Refer to patient's paper medical record for ECG rhythm strips, physician prescribed Individualized Treatment Plan, and education sessions covered. Avelino Aburto, Health Care Specialist Referring Provider: DEENA FRANCOIS [[id number]] Allergies As of Date: 10/18/2023 (No Active Allergies) Date Reviewed: 09/18/2023 Reviewed by: Pat Ye HUC - Fully Assessed Reason for Visit: Cardiac Rehab [[id number]] Primary Visit Diagnosis:S/P AVR (aortic valve replacement) [Z95.2] Prescriptions as of 10/18/2023 - lisinopril (ZESTRIL) 5 mg tablet Take 1 tablet by mouth once daily. - empagliflozin (JARDIANCE) 10 mg tablet Take 1 tablet by mouth daily with breakfast. - doxycycline (VIBRA-TABS) 100 mg tablet Take 1 tablet by mouth two times a day. - omeprazole (PRILOSEC) 40 mg capsule Take 1 capsule by mouth once daily. - aspirin, enteric coated (ASPIRIN, ENTERIC COATED) 81 mg EC tablet Take 1 tablet by mouth once daily. - atorvastatin (LIPITOR) 20 mg tablet Take 1 tablet by mouth daily at bedtime. - cetirizine (ZYRTEC) 10 mg tablet Take 1 tablet by mouth once daily as needed for cold/allergy symptoms. - acetaminophen (TYLENOL) 325 mg tablet Take 2 tablets by mouth every 6 hours as needed (for mild surgical pain). - furosemide (LASIX) 40 mg tablet Take 1 tablet by mouth once daily for 7 days. - metoprolol succinate ER (TOPROL XL) 100 mg Take 1.5 tablets by mouth daily with breakfast AND 1 tablet daily at bedtime. - docusate sodium (COLACE) 100 mg capsule Take 1 capsule by mouth two times a day. - MULTIVITAMIN TAB Take one(1) tablet daily. Problem List As Of Date 10/18/2023 Noted Resolved JOINT PAIN-UNSPEC [M25.50] 05/20/2006 10/03/2006 SPRAIN SHOULDER/ARM NOS [[id number]] 05/20/2006 10/03/2006 Complete rupture of rotator cuff [M75.120] 10/03/2006 Obesity (BMI 30-39.9) [E66.9] 02/16/2011 Special screening for malignant neoplasms, colo*03/13/2011 Nonrheumatic aortic valve stenosis [I35.0] 06/25/2023 Aortic root dilatation (HCC) [I77.810] 07/24/2023 Angina pectoris (HCC) [I20.9] 07/24/2023 Discharge planning issues [Z02.9] 07/24/2023 Encounter for support and coordination of trans*07/24/2023 Aortic stenosis due to bicuspid aortic valve [Q*07/29/2023 On mechanically assisted ventilation (HCC) [Z99*07/29/2023 Hypovolemia [E86.1] 07/29/2023 AI (aortic insufficiency) [I35.1] 07/29/2023 Hypotension [I95.9] 07/29/2023 Postoperative pain [G89.18] 07/29/2023 Aphasia [R47.01] 07/30/2023 Primary hypertension [I10] 07/30/2023 Hypervolemia [E87.70] 08/01/2023 Postoperative ileus (HCC) [K91.89, K56.7] 08/02/2023 Hyperlipidemia LDL goal <70 [E78.5] 08/03/2023 Gastroesophageal reflux disease without esophag*08/03/2023 ABLA (acute blood loss anemia) [D62] 08/03/2023 Thrombocytopenia (HCC) [D69.6] 08/03/2023 Hypertrophic cardiomyopathy (HCC) [I42.2] 09/18/2023 Obesity, Class I, BMI 30-34.9 [E66.9] 09/18/2023 Encounter Status:Closed [facility] Office Visit (MIRI) MARTIN HENSON ([id number]) 1955 M Date Time Provider Department 10/16/23 8:00 AM CARD REHAB PHASE 2 [facility] During your visit today, we recorded the following information about you: Josiah Suh, lease picker 10/16/2023 8:13 AM Signed Cardiac Rehabilitation [facility] Based Program Supervising Physician: Len Menendez Diagnosis: Aortic Valve Replacement Phase: 2 Monitor: Yes Session Number: 3 Today's exercise session was comprised of a warm-up, aerobic conditioning phase, aerobic cool-down, and free weight resistance training. Patient tolerated prescribed exercise workload. Tele SR-ST without ectopic beats. Vitals WNL for patient. No chest discomfort. No medication changes. This is a hospital based cardiac rehab program. Patient working towards exercise goals by increasing exercise duration. Patient working towards education goal by attending education sessions in cardiac rehabilitation. Patient has verbalized understanding of Weight Control education topic and the relation to disease managment. Patient's Daily Exercise Log will be scanned into [employer]SEC once it is completed. These can be viewed by going under the Scanned Documents tab and looking for documents labeled Cardiac Rehabilitation. Daily Exercise Logs contain exercise data such as, but not limited to modality, intensity, duration and frequency of exercise, along with vital signs pre-, during, and post-exercise. Refer to patient's paper medical record for ECG rhythm strips, physician prescribed Individualized Treatment Plan, and education sessions covered. Josiah Suh, Health Care Specialist Referring Provider: DEENA FRANCOIS [[id number]] Allergies As of Date: 10/16/2023 (No Active Allergies) Date Reviewed: 09/18/2023 Reviewed by: Pat Ye HUC - Fully Assessed Reason for Visit: Cardiac Rehab [[id number]] Primary Visit Diagnosis:S/P AVR (aortic valve replacement) [Z95.2] Prescriptions as of 10/16/2023 - lisinopril (ZESTRIL) 5 mg tablet Take 1 tablet by mouth once daily. - empagliflozin (JARDIANCE) 10 mg tablet Take 1 tablet by mouth daily with breakfast. - doxycycline (VIBRA-TABS) 100 mg tablet Take 1 tablet by mouth two times a day. - omeprazole (PRILOSEC) 40 mg capsule Take 1 capsule by mouth once daily. - aspirin, enteric coated (ASPIRIN, ENTERIC COATED) 81 mg EC tablet Take 1 tablet by mouth once daily. - atorvastatin (LIPITOR) 20 mg tablet Take 1 tablet by mouth daily at bedtime. - cetirizine (ZYRTEC) 10 mg tablet Take 1 tablet by mouth once daily as needed for cold/allergy symptoms. - acetaminophen (TYLENOL) 325 mg tablet Take 2 tablets by mouth every 6 hours as needed (for mild surgical pain). - furosemide (LASIX) 40 mg tablet Take 1 tablet by mouth once daily for 7 days. - metoprolol succinate ER (TOPROL XL) 100 mg Take 1.5 tablets by mouth daily with breakfast AND 1 tablet daily at bedtime. - docusate sodium (COLACE) 100 mg capsule Take 1 capsule by mouth two times a day. - MULTIVITAMIN TAB Take one(1) tablet daily. Problem List As Of Date 10/16/2023 Noted Resolved JOINT PAIN-UNSPEC [M25.50] 05/20/2006 10/03/2006 SPRAIN SHOULDER/ARM NOS [[id number]] 05/20/2006 10/03/2006 Complete rupture of rotator cuff [M75.120] 10/03/2006 Obesity (BMI 30-39.9) [E66.9] 02/16/2011 Special screening for malignant neoplasms, colo*03/13/2011 Nonrheumatic aortic valve stenosis [I35.0] 06/25/2023 Aortic root dilatation (HCC) [I77.810] 07/24/2023 Angina pectoris (HCC) [I20.9] 07/24/2023 Discharge planning issues [Z02.9] 07/24/2023 Encounter for support and coordination of trans*07/24/2023 Aortic stenosis due to bicuspid aortic valve [Q*07/29/2023 On mechanically assisted ventilation (HCC) [Z99*07/29/2023 Hypovolemia [E86.1] 07/29/2023 AI (aortic insufficiency) [I35.1] 07/29/2023 Hypotension [I95.9] 07/29/2023 Postoperative pain [G89.18] 07/29/2023 Aphasia [R47.01] 07/30/2023 Primary hypertension [I10] 07/30/2023 Hypervolemia [E87.70] 08/01/2023 Postoperative ileus (HCC) [K91.89, K56.7] 08/02/2023 Hyperlipidemia LDL goal <70 [E78.5] 08/03/2023 Gastroesophageal reflux disease without esophag*08/03/2023 ABLA (acute blood loss anemia) [D62] 08/03/2023 Thrombocytopenia (HCC) [D69.6] 08/03/2023 Hypertrophic cardiomyopathy (HCC) [I42.2] 09/18/2023 Obesity, Class I, BMI 30-34.9 [E66.9] 09/18/2023 Encounter Status:Closed by JOSIAH SUH on 10/16/23 [facility] 10-14-2023 [facility] Office Visit (MIRI) MARTIN HENSON ([id number]) 1955 M Date Time Provider Department 10/14/23 8:00 AM CARD REHAB PHASE 2 [facility] During your visit today, we recorded the following information about you: Avelino Aburto, Health Care Specialist 10/14/2023 8:09 AM Signed Cardiac Rehabilitation Hospital [facility] Program Supervising Physician: Len Menendez Diagnosis: Aortic Valve Replacement Phase: 2 Monitor: Yes Session Number: 2 Today's exercise session was comprised of a warm-up, aerobic conditioning phase, aerobic cool-down, and free weight resistance training. Patient tolerated prescribed exercise workload. Tele SR-ST without ectopic beats. Vitals WNL for patient. No chest discomfort. No medication changes. This is a hospital based cardiac rehab program. Patient working towards exercise goals by increasing exercise duration. Patient working towards education goal by attending education sessions in cardiac rehabilitation. Patient has verbalized understanding of diabetes education topic and the relation to disease managment. Patient's Daily Exercise Log will be scanned into [employer]SEC once it is completed. These can be viewed by going under the Scanned Documents tab and looking for documents labeled Cardiac Rehabilitation. Daily Exercise Logs contain exercise data such as, but not limited to modality, intensity, duration and frequency of exercise, along with vital signs pre-, during, and post-exercise. Refer to patient's paper medical record for ECG rhythm strips, physician prescribed Individualized Treatment Plan, and education sessions covered. Avelino Aburto, Health Care Specialist Referring Provider: DEENA FRANCOIS [[id number]] Allergies As of Date: 10/14/2023 (No Active Allergies) Date Reviewed: 09/18/2023 Reviewed by: Pat Ye HUC - Fully Assessed Reason for Visit: Cardiac Rehab [[id number]] Primary Visit Diagnosis:S/P AVR (aortic valve replacement) [Z95.2] Prescriptions as of 10/14/2023 - lisinopril (ZESTRIL) 5 mg tablet Take 1 tablet by mouth once daily. - empagliflozin (JARDIANCE) 10 mg tablet Take 1 tablet by mouth daily with breakfast. - doxycycline (VIBRA-TABS) 100 mg tablet Take 1 tablet by mouth two times a day. - omeprazole (PRILOSEC) 40 mg capsule Take 1 capsule by mouth once daily. - aspirin, enteric coated (ASPIRIN, ENTERIC COATED) 81 mg EC tablet Take 1 tablet by mouth once daily. - atorvastatin (LIPITOR) 20 mg tablet Take 1 tablet by mouth daily at bedtime. - cetirizine (ZYRTEC) 10 mg tablet Take 1 tablet by mouth once daily as needed for cold/allergy symptoms. - acetaminophen (TYLENOL) 325 mg tablet Take 2 tablets by mouth every 6 hours as needed (for mild surgical pain). - furosemide (LASIX) 40 mg tablet Take 1 tablet by mouth once daily for 7 days. - metoprolol succinate ER (TOPROL XL) 100 mg Take 1.5 tablets by mouth daily with breakfast AND 1 tablet daily at bedtime. - docusate sodium (COLACE) 100 mg capsule Take 1 capsule by mouth two times a day. - MULTIVITAMIN TAB Take one(1) tablet daily. Problem List As Of Date 10/14/2023 Noted Resolved JOINT PAIN-UNSPEC [M25.50] 05/20/2006 10/03/2006 SPRAIN SHOULDER/ARM NOS [[id number]] 05/20/2006 10/03/2006 Complete rupture of rotator cuff [M75.120] 10/03/2006 Obesity (BMI 30-39.9) [E66.9] 02/16/2011 Special screening for malignant neoplasms, colo*03/13/2011 Nonrheumatic aortic valve stenosis [I35.0] 06/25/2023 Aortic root dilatation (HCC) [I77.810] 07/24/2023 Angina pectoris (HCC) [I20.9] 07/24/2023 Discharge planning issues [Z02.9] 07/24/2023 Encounter for support and coordination of trans*07/24/2023 Aortic stenosis due to bicuspid aortic valve [Q*07/29/2023 On mechanically assisted ventilation (HCC) [Z99*07/29/2023 Hypovolemia [E86.1] 07/29/2023 AI (aortic insufficiency) [I35.1] 07/29/2023 Hypotension [I95.9] 07/29/2023 Postoperative pain [G89.18] 07/29/2023 Aphasia [R47.01] 07/30/2023 Primary hypertension [I10] 07/30/2023 Hypervolemia [E87.70] 08/01/2023 Postoperative ileus (HCC) [K91.89, K56.7] 08/02/2023 Hyperlipidemia LDL goal <70 [E78.5] 08/03/2023 Gastroesophageal reflux disease without esophag*08/03/2023 ABLA (acute blood loss anemia) [D62] 08/03/2023 Thrombocytopenia (HCC) [D69.6] 08/03/2023 Hypertrophic cardiomyopathy (HCC) [I42.2] 09/18/2023 Obesity, Class I, BMI 30-34.9 [E66.9] 09/18/2023 Encounter Status:Closed by AV[facility]INO [facility]UR[facility] Office Visit (MIRI) HENSONMARTIN MODI ([id number]) 1955 M Date Time Provider Department 10/11/23 8:00 AM CARD REHAB PHASE 2 [facility] During your visit today, we recorded the following information about you: Avelino Aburto, Health Care Specialist 10/11/2023 8:10 AM Signed Cardiac Rehabilitation [facility] Supervising Physician: Len Menendez Diagnosis: Aortic Valve Replacement Phase: 2 Monitor: Yes Session Number: 1 Today's exercise session was comprised of a warm-up, aerobic conditioning phase, aerobic cool-down, and free weight resistance training. Patient tolerated prescribed exercise workload. Tele SR-ST without ectopic beats. Vitals WNL for patient. No chest discomfort. No medication changes. This is a hospital based cardiac rehab program. Patient working towards exercise goals by increasing exercise intensity and duration. Patient working towards education goal by attending education sessions in cardiac rehabilitation. Patient has verbalized understanding of cholesterol education topic and the relation to disease managment. Patient's Daily Exercise Log will be scanned into [employer]SEC once it is completed. These can be viewed by going under the Scanned Documents tab and looking for documents labeled Cardiac Rehabilitation. Daily Exercise Logs contain exercise data such as, but not limited to modality, intensity, duration and frequency of exercise, along with vital signs pre-, during, and post-exercise. Refer to patient's paper medical record for ECG rhythm strips, physician prescribed Individualized Treatment Plan, and education sessions covered. Avelino Aburto, Health Care Specialist Referring Provider: DEENA FRANCOIS [[id number]] Allergies As of Date: 10/11/2023 (No Active Allergies) Date Reviewed: 09/18/2023 Reviewed by: Pat Ye HUC - Fully Assessed Reason for Visit: Cardiac Rehab [[id number]] Primary Visit Diagnosis:S/P AVR (aortic valve replacement) [Z95.2] Prescriptions as of 10/11/2023 - lisinopril (ZESTRIL) 5 mg tablet Take 1 tablet by mouth once daily. - empagliflozin (JARDIANCE) 10 mg tablet Take 1 tablet by mouth daily with breakfast. - doxycycline (VIBRA-TABS) 100 mg tablet Take 1 tablet by mouth two times a day. - omeprazole (PRILOSEC) 40 mg capsule Take 1 capsule by mouth once daily. - aspirin, enteric coated (ASPIRIN, ENTERIC COATED) 81 mg EC tablet Take 1 tablet by mouth once daily. - atorvastatin (LIPITOR) 20 mg tablet Take 1 tablet by mouth daily at bedtime. - cetirizine (ZYRTEC) 10 mg tablet Take 1 tablet by mouth once daily as needed for cold/allergy symptoms. - acetaminophen (TYLENOL) 325 mg tablet Take 2 tablets by mouth every 6 hours as needed (for mild surgical pain). - furosemide (LASIX) 40 mg tablet Take 1 tablet by mouth once daily for 7 days. - metoprolol succinate ER (TOPROL XL) 100 mg Take 1.5 tablets by mouth daily with breakfast AND 1 tablet daily at bedtime. - docusate sodium (COLACE) 100 mg capsule Take 1 capsule by mouth two times a day. - MULTIVITAMIN TAB Take one(1) tablet daily. Problem List As Of Date 10/11/2023 Noted Resolved JOINT PAIN-UNSPEC [M25.50] 05/20/2006 10/03/2006 SPRAIN SHOULDER/ARM NOS [[id number]] 05/20/2006 10/03/2006 Complete rupture of rotator cuff [M75.120] 10/03/2006 Obesity (BMI 30-39.9) [E66.9] 02/16/2011 Special screening for malignant neoplasms, colo*03/13/2011 Nonrheumatic aortic valve stenosis [I35.0] 06/25/2023 Aortic root dilatation (HCC) [I77.810] 07/24/2023 Angina pectoris (HCC) [I20.9] 07/24/2023 Discharge planning issues [Z02.9] 07/24/2023 Encounter for support and coordination of trans*07/24/2023 Aortic stenosis due to bicuspid aortic valve [Q*07/29/2023 On mechanically assisted ventilation (HCC) [Z99*07/29/2023 Hypovolemia [E86.1] 07/29/2023 AI (aortic insufficiency) [I35.1] 07/29/2023 Hypotension [I95.9] 07/29/2023 Postoperative pain [G89.18] 07/29/2023 Aphasia [R47.01] 07/30/2023 Primary hypertension [I10] 07/30/2023 Hypervolemia [E87.70] 08/01/2023 Postoperative ileus (HCC) [K91.89, K56.7] 08/02/2023 Hyperlipidemia LDL goal <70 [E78.5] 08/03/2023 Gastroesophageal reflux disease without esophag*08/03/2023 ABLA (acute blood loss anemia) [D62] 08/03/2023 Thrombocytopenia (HCC) [D69.6] 08/03/2023 Hypertrophic cardiomyopathy (HCC) [I42.2] 09/18/2023 Obesity, Class I, BMI 30-34.9 [E66.9] 09/18/2023 Encounter Status:Closed by AVELINO ABURTO on 10/11/23 [facility] 10-09-2023 [facility] Office Visit (MIRI) SENGMARTIN ([id number]) 1955 M Date Time Provider Department 10/09/23 10:00 AM [facility] MIRI During your visit today, we recorded the following information about you: Pulse Blood pressure Weight Height 90/minute 118/80 112.9 kg 1.854 m Isela Davis, Health Care Specialist 10/09/2023 10:50 AM [facility] [place] [facility] Department of Cardiovascular Medicine Initial Assessment for Cardiac Rehab Martin Henson 10/09/2023 CHIEF COMPLAINT: Martin Henson is a 68 year old male seen today. Patient presents with: Cardiac Rehab Eval: Initial Assessment HISTORY OF PRESENT ILLNESS: AVR PAST MEDICAL HISTORY Diagnosis Date Aortic stenosis Bicuspid aortic valve Hemorrhoids HLD (hyperlipidemia) HTN (hypertension) Primary cardiomyopathy (HCC) PAST SURGICAL HISTORY Procedure Laterality Date ARTHROPLASTY GLENOHUMRL JT HEMIARTHROPLASTY 07/2006 Arthroplasty, shoulder: torn rotator cuff (right) COLONOSCOPY FLX DX W/COLLJ SPEC WHEN PFRMD 04/09/11 TONSILLECTOMY PRIMARY/SECONDARY Tonsillectomy XCAPSL CTRC RMVL INSJ IO LENS PROSTH W/O ECP 2006 Cataract Removal bilateral Social History Tobacco Use Smoking status: Never Smokeless tobacco: Current Types: Snuff Vaping Use Vaping Use: Never used Alcohol use: Yes Comment: very rarely Drug use: No FAMILY HISTORY Problem Relation Age of Onset Cancer Mother breast Arthritis Mother Hypertension Mother Heart Father atrial fib Stroke Father ? A-fib related Hypertension Sister Hypertension Brother Colon Cancer Other none Prostate Cancer Other none Diabetes Other none CURRENT MEDS: Current Outpatient Medications Medication Sig lisinopril (ZESTRIL) 5 mg tablet Take 1 tablet by mouth once daily. empagliflozin (JARDIANCE) 10 mg tablet Take 1 tablet by mouth daily with breakfast. doxycycline (VIBRA-TABS) 100 mg tablet Take 1 tablet by mouth two times a day. (Patient not taking: Reported on 09/18/2023) omeprazole (PRILOSEC) 40 mg capsule Take 1 capsule by mouth once daily. aspirin, enteric coated (ASPIRIN, ENTERIC COATED) 81 mg EC tablet Take 1 tablet by mouth once daily. atorvastatin (LIPITOR) 20 mg tablet Take 1 tablet by mouth daily at bedtime. cetirizine (ZYRTEC) 10 mg tablet Take 1 tablet by mouth once daily as needed for cold/allergy symptoms. acetaminophen (TYLENOL) 325 mg tablet Take 2 tablets by mouth every 6 hours as needed (for mild surgical pain). furosemide (LASIX) 40 mg tablet Take 1 tablet by mouth once daily for 7 days. (Patient not taking: Reported on 09/18/2023) metoprolol succinate ER (TOPROL XL) 100 mg Take 1.5 tablets by mouth daily with breakfast AND 1 tablet daily at bedtime. docusate sodium (COLACE) 100 mg capsule Take 1 capsule by mouth two times a day. (Patient not taking: Reported on 09/18/2023) MULTIVITAMIN TAB Take one(1) tablet daily. No current facility-administered medications for this visit. ALLERGIES No Active Allergies PHYSICAL EXAMINATION: BP 118/80 Pulse 90 Ht 6' 1 (1.85m) Wt 248 lb 14.4 oz (112.9kg) SpO2 96[RA]% BMI 32.85 kg/(m2). INDIVIDUAL TREATMENT PLAN Program Location: [facility] evaluation site : [facility] Cardiac Rehab Completed : [place] Program: Entry Phase II Primary Reason For Referral: Valve/Aorta Surgery EXERCISE ASSESSMENT Current Exercise: Yes Type of Exercise: Walk Exercise Duration: 25 minutes Exercise Intensity: Moderate Exercise Equipment: No Exercise Limitations/Symptoms: No Assist Device: No Oxygen: No Stress Test: No 6 Minute Walk Test: Yes Date: 10/09/23 Distance (ft): 1350 Total Rest Time (seconds): 0 Lowest SPO2: 97 (RA) Peak Heart Rate BPM: 112 EXERCISE PLAN EXERCISE INTERVENTIONS Frequency: 3-5 Times Per Week Mode: Treadmill;Recumbent Stepper;Recumbent Bike;Weights Intensity: Within Set Target Heart Rate;Within Target Met Level;RPE of 3-5;RPE of 11-14 METS: 2-4 METS initially, can progress beyond 4 METS as tolerated as long as staying within THR and/or RPE. Target Heart Rate (BPM): 91-122 Workload: 60-80% age max heart rate RPE: 11-14 Initial Duration (minutes): 20 minutes Progression: 5 Minutes Every 2-3 Weeks as Tolerated;0.5 Mets Every 1-2 Weeks as Tolerated;Within Target METS Level;Within Target Heart Rate Resistance Training: Free Weights Training Start Date: 10/11/23 WT Intensity: Weight to Have Local Muscle Fatigue in 10-15 Reps With 2-3 Sets Education Needed: RPE;Equipment Orientation;Signs and Symptoms;Target Heart Rate Range;Hand Hygiene;Cleaning of Equipment;Warm Up/Cool Down;Safety Guidelines;Pulse Taking;Excerise Prescription;Exercise Considerations;Equipme nt orientation;Exercise Safety;Exercise Benefits Patient Understands Intervention: Yes Please strictly adher (more content not included)... Normal [facility] CNOVon 09-18-2023 [facility] Office Visit (CARCMN ) MARTIN HENSON ([id number]) 1955 M Date Time Provider Department 09/18/23 3:15 PM DEENA FRANCOIS During your visit today, we recorded the following information about you: Pulse Blood pressure Weight Height 86/minute 147/86 111.1 kg 1.854 m Deena Francois MD 09/22/2023 2:22 PM Signed Heart, Vascular and Thoracic [place] [facility] Department of Cardiovascular Medicine SECTION OF CLINICAL CARDIOLOGY OUTPATIENT VISIT DATE September 18, 2023 OUTPATIENT VISIT TYPE ESTABLISHED PRIMARY CARE PHYSICIAN: ABDIEL MATHEWS [id number] [phone] REFERRING PHYSICIAN: No referring provider defined for this encounter. CHIEF COMPLAINT: Post-op Mr. Henson is a 67 year old male with severe concentric LV hypertrophy - more prominent on septal wall, without hemodynamic obstruction at baseline but with small gradient of 17 mmHg with Valsalva maneuver- and severe /BAV/ Ao root dilation at 4.5-4.6 cm cm at the sinuses and distal ascending aorta levels. There is MAC with mild MS and MR based on TTE+MRI. 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 He comes to [facility] for surgical correction of his aortic aneurysm and valvular heart disease. Important/Relevant PMH/PSH: Bicuspid aortic valve complicated by severe aortic stenosis (peak 103, mean 55 mmHg with AV area 0.93 cm2 and dimensionless valve index 0.24) with moderate aortic regurgitation and severe LVH; aortic dilation (4.5 cm at sinus), HTN, and HLD, cataract removal Operations 07/29/2023: Upper nhoemi-sternotomy AVR (#25 Inspiris), Ascending aortoplasty A/P s/p AVR - ASA, BB s/p Asc Aortoplasty - ASA, BB. BP control. No Postop CTA Chest needed per Dr. Navarro Postop SQ emphysema on right anterior chest - (Improving). RA, Recent CXR - No PTX h/o HTN (Lopressor, Lisinopril, HCTZ) - BP elevated but pt needs more HR control. dc Lisinopril, increased Toprol. Continue lasix h/o HLP (Recent LDL - 121, Lipitor) - LFTs - Mildly elevated. Continue Lipitor h/o GERD (PPI) - No acute reflux. Continue PPI ABLA - H/H stable. No s/s of bleeding. Postop thrombocytopenia - Plts - improving, no signs or symptoms of bleeding. Continue to monitor Postop Ileus - Recent KUB showing improvement. + BMs, Continue anti-constipation meds Expressive aphasia on POD 0 - 2CLOT - negative acute findings on imaging. Speech deficits resolved. ASA, statin Postop Pain - Received blocks in OR. Pain controlled on Tylenol PRN, Lido patches. Dispo - 67[place] [address]. No dc needs. CM following. OPD and [facility] Cards - req. Okay to dc 08/05/2023 per [facility] HISTORY OF PRESENT ILLNESS: Mr. Henson is a 67 year old male who presents today for a cardiovascular medicine follow-up visit after cardiac surgery as stated above. He denies chest pain, shortness of breath, orthopnea, cough, edema, palpitations, PND, lightheadedness or syncope. PAST CARDIAC HISTORY: None, see above PAST MEDICAL HISTORY Diagnosis Date Aortic stenosis Bicuspid aortic valve Hemorrhoids HLD (hyperlipidemia) HTN (hypertension) Primary cardiomyopathy (HCC) PAST SURGICAL HISTORY Procedure Laterality Date ARTHROPLASTY GLENOHUMRL JT HEMIARTHROPLASTY 07/2006 Arthroplasty, shoulder: torn rotator cuff (right) COLONOSCOPY FLX DX W/COLLJ SPEC WHEN PFRMD 04/09/11 TONSILLECTOMY PRIMARY/SECONDARY Tonsillectomy XCAPSL CTRC RMVL INSJ IO LENS PROSTH W/O ECP 2006 Cataract Removal bilateral SOCIAL HISTORY Social History Tobacco Use Smoking status: Never Smokeless tobacco: Current Types: Snuff Vaping Use Vaping Use: Never used Substance Use Topics Alcohol use: Yes Comment: very rarely Drug use: No FAMILY HISTORY Problem Relation Age of Onset Cancer Mother breast Arthritis Mother Hypertension Mother Heart Father atrial fib Stroke Father ? A-fib related Hypertension Sister Hypertension Brother Colon Cancer Other none Prostate Cancer Other none Diabetes Other none Patient-Entered Questionnaire Scores PROMIS Global Health - (T-Scores - the mean of general population = 50. Five points is a clinically meaningful difference.) 08/28/2023 Physical T-Score 47.7 Mental T-Score 50.8 Sleep Duration Level: N/A ALLERGIES: ALLERGIES No Active Allergies MEDICATIONS: omeprazole (PRILOSEC) 40 mg capsule Take 1 capsule by mouth once daily. aspirin, enteric coated (ASPIRIN, ENTERIC COATED) 81 mg EC tablet Take 1 tablet by mouth once daily. atorvastatin (LIPITOR) 20 mg tablet Take 1 tablet by mouth daily at bedtime. cetirizine (ZYRTEC) 10 mg tablet Take 1 tablet by mouth once daily as needed for cold/allergy symptoms. acetaminophen (TYLENOL) 325 mg tablet Take 2 tablets by mouth every 6 hours as needed (for mild surgic (more content not included)... Normal [facility] ECG COMPLETEon 09-18-2023 ECG COMPLETE Ventricular Rate : 7 9 BPM Atrial Rate : 79 BPM P-R Interval : 160 ms QRS Duration : 112 ms Q-T Interval : 406 ms QTC Calculation(Bazett) : 465 ms Calculated P [place] : 65 degrees Calculated R [place] : 5 degrees Calculated T [place] : 162 degrees NORMAL SINUS RHYTHM LEFT VENTRICULAR HYPERTROPHY WITH REPOLARIZATION ABNORMALITY ( Sokolow-Salcedo ) POSSIBLE INFERIOR MYOCARDIAL INFARCTION , AGE UNDETERMINED ABNORMAL ECG Confirmed by BAIRON MIR MD ([id number]) on 09/29/2023 5:36:55 PM NAME : MARTIN HENSON PID : [id number] : 1955 Gender : Male Race : ORD : [id number] Procedure Date : Sep 18 2023 13:51:19 Edit Date : Sep 29 2023 17:36:59 Diagnosis: NORMAL SINUS RHYTHM LEFT VENTRICULAR HYPERTROPHY WITH REPOLARIZATION ABNORMALITY ( Sokolow-Salcedo ) POSSIBLE INFERIOR MYOCARDIAL INFARCTION , AGE UNDETERMINED ABNORMAL ECG Confirmed by BAIRON MIR MD ([id number]) on 09/29/2023 5:36:55 PM Test Reason : Location : 314 : J14 J14 Overread By : BAIRON MIR MD Edited By : BAIRON MIR MD Referred By : , Acquired by : EFREN BRADY Normal [facility] Fernando 09-03-2023 VERONICA Telephone (deeplocal) MARTIN HENSON ([id number]) 1955 M Date Time Provider Department 09/03/23 JUSTO MEHTA During your visit today, we recorded the following information about you: Justo Mehta APRN.ELECTRONIC COMPONENT PROCESSOR 09/03/2023 11:01 AM Signed I called the patient back. He denies fever. He states he bumped the chest tube site area and its been draining and red. I told him to wash with soap and water and apply a thin layer of betadine after the shower. I prescribed an antibiotic doxycycline and told him that if it doesn't improve in a few days then he needs to come in for wound check. The following approved medication requests have been transmitted electronically. Requested Prescriptions Signed Prescriptions Disp Refills doxycycline (VIBRA-TABS) 100 mg tablet 20 tablet 0 Sig: Take 1 tablet by mouth two times a day. Authorizing Provider: JUSTO MEHTA APRN.ELECTRONIC COMPONENT PROCESSOR Allergies As of Date: 09/03/2023 (No Active Allergies) Date Reviewed: 08/08/2023 Reviewed by: Armand Garay MA - Fully Assessed Order(s):doxycycline (VIBRA-TABS) 100 mg tabletTake 1 tablet by mouth two times a day.Disp: 20 tabletRfl: 0 Prescriptions as of 09/03/2023 - doxycycline (VIBRA-TABS) 100 mg tablet Take 1 tablet by mouth two times a day. - omeprazole (PRILOSEC) 40 mg capsule Take 1 capsule by mouth once daily. - aspirin, enteric coated (ASPIRIN, ENTERIC COATED) 81 mg EC tablet Take 1 tablet by mouth once daily. - atorvastatin (LIPITOR) 20 mg tablet Take 1 tablet by mouth daily at bedtime. - cetirizine (ZYRTEC) 10 mg tablet Take 1 tablet by mouth once daily as needed for cold/allergy symptoms. - acetaminophen (TYLENOL) 325 mg tablet Take 2 tablets by mouth every 6 hours as needed (for mild surgical pain). - furosemide (LASIX) 40 mg tablet Take 1 tablet by mouth once daily for 7 days. - metoprolol succinate ER (TOPROL XL) 100 mg Take 1.5 tablets by mouth daily with breakfast AND 1 tablet daily at bedtime. - docusate sodium (COLACE) 100 mg capsule Take 1 capsule by mouth two times a day. - MULTIVITAMIN TAB Take one(1) tablet daily. Problem List As Of Date 09/03/2023 Noted Resolved JOINT PAIN-UNSPEC [M25.50] 05/20/2006 10/03/2006 SPRAIN SHOULDER/ARM NOS [[id number]] 05/20/2006 10/03/2006 Complete rupture of rotator cuff [M75.120] 10/03/2006 Obesity (BMI 30-39.9) [E66.9] 02/16/2011 Special screening for malignant neoplasms, colo*03/13/2011 Nonrheumatic aortic valve stenosis [I35.0] 06/25/2023 Aortic root dilatation (HCC) [I77.810] 07/24/2023 Angina pectoris (HCC) [I20.9] 07/24/2023 Discharge planning issues [Z02.9] 07/24/2023 Encounter for support and coordination of trans*07/24/2023 Aortic stenosis due to bicuspid aortic valve [Q*07/29/2023 On mechanically assisted ventilation (HCC) [Z99*07/29/2023 Hypovolemia [E86.1] 07/29/2023 AI (aortic insufficiency) [I35.1] 07/29/2023 Hypotension [I95.9] 07/29/2023 Postoperative pain [G89.18] 07/29/2023 Aphasia [R47.01] 07/30/2023 Primary hypertension [I10] 07/30/2023 Hypervolemia [E87.70] 08/01/2023 Postoperative ileus (HCC) [K91.89, K56.7] 08/02/2023 Hyperlipidemia LDL goal <70 [E78.5] 08/03/2023 Gastroesophageal reflux disease without esophag*08/03/2023 ABLA (acute blood loss anemia) [D62] 08/03/2023 Thrombocytopenia (HCC) [D69.6] 08/03/2023 Prescriptions ordered this encounter Disp Refills Start End DOXYCYCLINE HYCLATE 100 MG TABLET 20 t* 0 09/03/2023 Route: ORAL Sig: Take 1 tablet by mouth two times a day. Encounter Status:Closed by JUSTO MEHTA on 09/03/23 [facility]EN[facility] ([id number]) 1955 M Date Time Provider Department 09/03/23 USHA NAVARRO HVICTR During your visit today, we recorded the following information about you: Sukumar Sarabia I, MARCUS 09/03/2023 8:34 AM Signed [facility] Contact Center Inbound Phone Encounter DATE of SERVICE: 09/03/2023 TIME of SERVICE: 8:26 AM Status: Non-urgent, needs attention Service/Provider: Cardiac Surgery Usha Navarro M.D. Reason for call: Incisions Contact information: [phone] Resolution: Reinforced education and Sent to [facility] Comments: Pt calling. States that approximately a week ago he noticed drainage from chest tube sites that has progressively gotten worse. Denies fever, chills or foul odor but drainage is pus colored and some discomfort to right side of chest. area is not tender or red but continues to drain. Pt not scheduled to be seen here until 09/18/2023. Pt asked to send in picture via [employer]. Also advised to see if local PCP could see him today. Pt willing to drive to if he can be seen here if need be. Please advise pt after reviewing [employer] picture that he will send in. Sukumar Sarabia RN Date of Resolution: 09/03/2023 Time of Resolution 8:26 AM Allergies As of Date: 09/03/2023 (No Active Allergies) Date Reviewed: 08/08/2023 Reviewed by: Armand Garay MA - Fully Assessed Prescriptions as of 09/03/2023 - omeprazole (PRILOSEC) 40 mg capsule Take 1 capsule by mouth once daily. - aspirin, enteric coated (ASPIRIN, ENTERIC COATED) 81 mg EC tablet Take 1 tablet by mouth once daily. - atorvastatin (LIPITOR) 20 mg tablet Take 1 tablet by mouth daily at bedtime. - cetirizine (ZYRTEC) 10 mg tablet Take 1 tablet by mouth once daily as needed for cold/allergy symptoms. - acetaminophen (TYLENOL) 325 mg tablet Take 2 tablets by mouth every 6 hours as needed (for mild surgical pain). - furosemide (LASIX) 40 mg tablet Take 1 tablet by mouth once daily for 7 days. - metoprolol succinate ER (TOPROL XL) 100 mg Take 1.5 tablets by mouth daily with breakfast AND 1 tablet daily at bedtime. - docusate sodium (COLACE) 100 mg capsule Take 1 capsule by mouth two times a day. - MULTIVITAMIN TAB Take one(1) tablet daily. Problem List As Of Date 09/03/2023 Noted Resolved JOINT PAIN-UNSPEC [M25.50] 05/20/2006 10/03/2006 SPRAIN SHOULDER/ARM NOS [[id number]] 05/20/2006 10/03/2006 Complete rupture of rotator cuff [M75.120] 10/03/2006 Obesity (BMI 30-39.9) [E66.9] 02/16/2011 Special screening for malignant neoplasms, colo*03/13/2011 Nonrheumatic aortic valve stenosis [I35.0] 06/25/2023 Aortic root dilatation (HCC) [I77.810] 07/24/2023 Angina pectoris (HCC) [I20.9] 07/24/2023 Discharge planning issues [Z02.9] 07/24/2023 Encounter for support and coordination of trans*07/24/2023 Aortic stenosis due to bicuspid aortic valve [Q*07/29/2023 On mechanically assisted ventilation (HCC) [Z99*07/29/2023 Hypovolemia [E86.1] 07/29/2023 AI (aortic insufficiency) [I35.1] 07/29/2023 Hypotension [I95.9] 07/29/2023 Postoperative pain [G89.18] 07/29/2023 Aphasia [R47.01] 07/30/2023 Primary hypertension [I10] 07/30/2023 Hypervolemia [E87.70] 08/01/2023 Postoperative ileus (HCC) [K91.89, K56.7] 08/02/2023 Hyperlipidemia LDL goal <70 [E78.5] 08/03/2023 Gastroesophageal reflux disease without esophag*08/03/2023 ABLA (acute blood loss anemia) [D62] 08/03/2023 Thrombocytopenia (HCC) [D69.6] 08/03/2023 Encounter Status:Closed by SUKUMAR BERUMEN I on 09/03/23 Normal [facility] Rene XR CHEST 2V FRONTAL/LATon [facility] Laboratory - Microbiology an d Antimicrobial susceptibilityon 07-25-2023 S. aureus and MRSA panel BREANN+probe (Nose) Negative Negative [facility] Absolute lymphocyte countOrd ered By: Singh Barrientos on 05-21-2023 Lymphocytes Auto (Unsp spec) [#/Vol] 1.67 10*3/uL 0.83-4.51 [facility] Basophil percentageOrdered B y: Singh Barrientos on 05-21-2023 Basophils/100 WBC (Bld) 1.3 % 0-1 [facility] Chloride [Moles/Vol] 106 mmol/L 98-107 [facility] Eosinophils/100 WBC (Bld) 5.4 % 0-5 [facility] Glucose [Mass/Vol] 153 mg/dL 74-106 [facility] Comment on above: Fasting Glucose resu lt greater than or equal to 126 mg/dL suggests DIABETES MELLITUS per A.D.A. criteria. Neutrophils (Bld) [#/Vol] 3.5 10*3/uL 2.0-7.7 [facility] Neutrophils/100 WBC (Bld) 56.3 % 47-70 [facility] Potassium [Moles/Vol] 4.6 mmol/L 3.5-5.1 [facility] Sodium [Moles/Vol] 138 mmol/L 136-145 [facility] WBC (Bld) [#/Vol] 6.2 10*3/uL 4.4-11.0 [facility] Blood erythrocytes count (nu mber/volume)Ordered By: Singh Barrientos on 05-21-2023 RBC (Bld) [#/Vol] 4.96 10*6/uL 4.6-6.2 [facility] Blood hemoglobin measurement (mass/volume)Ordered By: Singh Barrientos on 05-21-2023 Hemoglobin (Bld) [Mass/Vol] 15.7 g/dL 13.0-16.5 [facility] Blood lymphocytes/100 leukoc ytesOrdered By: Singh Barrientos on 05-21-2023 Lymphocytes/100 WBC (Bld) 26.8 % 19-41 [facility] Blood monocytes/100 leukocyt esOrdered By: Singh Barrientos on 05-21-2023 Monocytes/100 WBC (Bld) 9.9 % 0-10 [facility] Blood platelet mean volumeOr dered By: Singh Barrientos on 05-21-2023 Platelet mean volume (Bld) [Entitic vol] 10.4 fL 6.2-12.0 [facility] Determination of erythrocyte mean corpuscular volume (MCV)Ordered By: Singh Barrientos on 05-21-2023 MCV (RBC) [Entitic vol] 92.9 fL 80-94 [facility] Hematocrit Auto (Bld) [Volum e fraction]Ordered By: Singh Barrientos on 05-21-2023 Hematocrit (Bld) [Volume fraction] 46.1 % 40-54 [facility] INR in Blood by Coagulation assayOrdered By: Singh Barrientos on 05-21-2023 INR Coag (Bld) [Relative time] 1.1 {INR} [facility] - Chemistry and C hemistry - challengeOrdered By: Singh Barrientos on 05-21-2023 CO2 [Moles/Vol] 32.0 mmol/L 21.0-32.0 [facility] Urea nitrogen/Creatinine [Mass ratio] 16.5 mg/mg 10-20 [facility] Laboratory - CoagulationOrde red By: Singh Barrientos on 05-21-2023 aPTT Coag (Bld) [Time] 32.2 s 24.1-36.2 [facility] PT Coag (PPP) [Time] 14.1 s 11.7-14.9 [facility] - Hematology and Cell countsOrdered By: Singh Barrientos on 05-21-2023 Erythrocyte distribution width (RBC) [Entitic vol] 42.0 fL 35.1-43.9 [facility] Erythrocyte distribution width (RBC) [Ratio] 12.3 % 11.6-14.6 [facility] Immature granulocytes/100 WBC (Bld) 0.300 % 0.0-0.9 [facility] Comment on above: IG% - Immature Granu locytes (promyelocytes, myelocytes and metamyelocytes) > 1% indicates that a LEFT SHIFT is Present. MCH (RBC) [Entitic mass] 31.7 pg 27.0-32.0 [facility] Nucleated RBC/100 WBC (Bld) [Ratio] 0 % 0-5 [facility] MCHC Auto (RBC) [Mass/Vol]Or dered By: Singh Barrientos on 05-21-2023 MCHC (RBC) [Mass/Vol] 34.1 g/dL 32-36 [facility] No Panel InformationOrdered By: Singh Barrientos on 05-21-2023 Estimated GFR (MDRD) Amer 93 mL/min >60 [facility] Comment on above: GFR Calc Estimated GFR (MDRD) Non-Af Amer 76 mL/min >60 [facility] Comment on above: Non- GFR Calc Platelets bldOrdered By: Darrion Barrientos on 05-21-2023 Platelets (Bld) [#/Vol] 158 10*3/uL 150-450 [facility] Serum or plasma calcium kely urement (mass/volume)Ordered By: Singh Barrientos on 05-21-2023 Calcium [Mass/Vol] 9.0 mg/dL 8.5-10.1 [facility] Serum or plasma creatinine m easurement (mass/volume)Ordered By: Singh Barrientos on 05-21-2023 Creatinine [Mass/Vol] 1.03 mg/dL 0.70-1.30 [facility] Comment on above: The validity of the calculated GFR & GFRAA in patients over 70 years has not been determined. Clinical correlation is essential. Serum or plasma urea nitroge n measurement (mass/volume)Ordered By: Singh Barrientos on 05-21-2023 Urea nitrogen [Mass/Vol] 17 mg/dL 7-18 [facility] Thin prep Papanicolaou smear with manual screeningOrdered By: Singh Barrientos on 05-21-2023 Thin prep Papanicolaou smear with manual screening 0 5-15 [facility] MRI CARD MORPH FUNC WO/W IVC ONon 12-21-2022 MRI CARD MORPH FUNC WO/W IVCON * * *Final Report* * * DATE OF EXAM: Dec 21 2022 10:30AM [facility] [id number] - MRI CARD MORPH FUNC WO/W IVCON / PROCEDURE REASON: Q23.1, I35.0, I42.9 * * * * Physician Interpretation * * * * Cardiac MRI Report: [facility] Date of service: 12/21/2022 9:00:52 AM Linked orders:[id number] CARD MORPH FUNC WO/W IVCON;. Ordering physician: SINGH BARRIENTOS Technologist: CHARLOTTE GARCIA Interpreting physician: Heraclio Fine MD PATIENT: Name: MR. MARTIN HENSON Age: 67 years Gender: M MRI Scanner: Siemens Natalee 1.5T Severe left ventricular hypertrophy. Suspicion for cardiac amyloidosis. MRI Techniques: * T2 mapping. * T2 * . Gadolinium Agent: 20 cc of Multihance was administered. Baseline vital signs: 82 bpm Height: 182.88 cm BSA: 2.38 m? Weight: 111.13 kg BMI: 33.2 kg/m? FINDINGS: Aorta: The thoracic aorta is abnormal in course, caliber and contour. Sinus: 4.4 cm Sinotubular junction: 3.4 cm Mid ascendin.6 cm Descending mid thoracic: 2.6 cm Pulmonary Arteries: Pulmonary Arteries: Normal Measurements: - Main pulmonary artery diameter: 3.0 cm - Left pulmonary artery diameter: 1.9 cm Left Atrium: The left atrium is normal in size. LA volume: 68 ml (normal range: 31-112 ml) LA volume index: 29 ml/m? (normal range: 17-59 ml/m?) Right Atrium: The right atrium is normal in size. Left Ventricle: The left ventricle is normal in size. Left ventricular systolic function is normal. Left ventricular mass is higher than the normal range, 132 g/m? (normal: 36-75 g/m?). value (normal range) indexed (normal range) EDV: 209 ml (83-207 ml) EDVi: 88 ml/m? (47-107 ml/m?) ESV: 92 ml (19-88 ml) ESVi: 39 ml/m? (11-47 ml/m?) SV: 117 ml (55-127 ml) SVi: 49 ml/m? (30-66 ml/m?) PELON: 4.9 cm (4.2-6.2 cm) Cecilia: 2.1 cm/m? (2.4-3.5 cm/m?) ESD: 3.8 cm (2.6-3.8 cm) ESDi: 1.6 cm/m? (1.5-2.2 cm/m?) EF: 56 % (51-76 %) CO: 9.6 l/min (3.9-8.3 l/min) CI: 4.0 l/min/m? (2.1-4.3 ml/min/m?) mass: 313 g (57-152 g) LVMi: 132 g/m? (36-75 g/m?) There is severe LV hypertrophy. LV segment wall thickness: basal anteroseptum: 2.3 cm basal inferolateral: 1.5 cm Wall Motion: There are no wall motion abnormalities. Delayed Enhancement: There is diffuse 50-74%. Delayed gadolinium enhancement: imaging reveals non-ischemic near transmural delayed hyperenhancement. Constellation of findings could be suggestive of cardiac amyloidosis. Integrating all of the imaging features and clinical history/presentation, the most likely diagnosis is cardiac amyloidosis. Right Ventricle: The right ventricle is normal in size. Right ventricular systolic function is normal. value (normal range) indexed (normal range) EDV: 131 ml (87-244 ml) EDVi: 55 ml/m? (53-123 ml/m?) ESV: 48 ml (29-117 ml) ESVi: 20 ml/m? (17-59 ml/m?) SV: 83 ml (43-146 ml) SVi: 35 ml/m? (28-75 ml/m?) EF: 63 % (42-72 %) CO: 6.8 l/min (2.8-8.3 l/min) CI: 2.9 l/min/m? (1.5-4.5 l/min/m?) T1 / T2 / ECV T2 * : +------+ +-- --+-------+ T1 pre (ms) +/- ECV (%) +------+ +-- --+-------+ Global 974.00 3.00 26.00 +------+ +-- --+-------+ T2 mapping: Global: 48 +/- 3 ms Aortic Valve: There is no aortic valve stenosis. There is mild aortic regurgitation. There is mild (1+ - 2+) aortic valve regurgitation. Functional bicuspid aortic valve. There is moderate thickening. AV Flow Quantification: Inaccurate due to technical limitations. Mid Ascending Aorta Forward Volume: 83 ml Reverse Volume: 25 ml Net Forward Volume: 58 ml Regurgitant Fraction: 30 % There is no diastolic flow reversal. Mitral Valve: Mitral Flow Quantification: Inaccurate due to technical limitations. Pericardium: There is no pericardial effusion present. There is normal pericardial thickness. IMPRESSION: - The left ventricle is normal in size (LV EDVi = 88 ml/m?). The left ventricular systolic function is normal (LV EF = 56 %). - The right ventricle is normal in size (RV EDVi = 55 ml/m?). The right ventricular systolic function is normal (RV EF = 63 %). - There is severe left ventricular hypertrophy. The hypertrophy is more pronounced in the septal wall as compared to the lateral wall, but overall the hypertrophy involves the entire left ventricle. The myocardial mass is increased at 313 g (132 g/m?). - Late gadolinium enhancement (LGE) sequences indicated the presence of diffuse near transmural/global LGE involving all tai of the left ventricle. The T1 value of the myocardium is abnormal at 974+/- 3 ms. The extracellular volume is also abnormal at 26%. Data suggest cardiac amyloidosis. -The aortic valve is functionally bicuspid with fusion of the right and left cusps. Pseudoraphae are visualized. Mild mitral stenosis is seen. The planimeter valve area is 1.9 cm?. Mild to moderate aortic insufficiency seen. Regurgitant (more content not included)... Normal [facility] MRI CARDIAC VELOCITY FLOW MA Cheko 12-21-2022 MRI CARDIAC VELOCITY FLOW MAP * * *Final Report* * * DATE OF EXAM: Dec 21 2022 10:30AM ALANA 0704 - MRI CARDIAC VELOCITY FLOW MAP / PROCEDURE REASON: Q23.1, I35.0, I42.9 * * * * Physician Interpretation * * * * IMPRESSION: The study has been already reported under . The current template adds the charge for Phase velocity mapping Heraclio Fine MD Box Toe Stitcher: PSCAlexandria Transcribe Date/Time: Jun 27 2023 9:11P Dictated by : HERACLIO FINE MD This examination was interpreted and the report reviewed and electronically signed by: HERACLIO FINE MD on Jun 27 2023 9:15PM EST [id number] Normal [facility] [facility] MARTIN HENSON ([id number]) 1955 M Date Time Provider Department 12/07/22 CHARLOTTE GARCIA During your visit today, we recorded the following information about you: RT Migdalia(Carla) 12/07/2022 6:41 AM Signed CMR Protocol needed for this outpatient scheduled on 12/21. Thank you Heraclio Fine MD 12/09/2022 10:44 PM Signed Amyloid, , AI protocol Hello, Get the dark, and bright bloods, regular cines, make sure we have quality 3 C, LVOT long. Stack the LVOT short axis. T1, T2 mapping, inject contrast, get first pass and get delayed images at 3, 8 min. Qp, Qs is required. I would get QS at three levels( ascending aorta at the level of the main PA, ST junction, and also under the aortic valve). Make sure that you are perpendicular to the ascending aorta using the 3C, LVOT long) at venc 200, 250, 300 or even higher until the aliasing disappears completely. Also, on the Qs, make sure that the SVC appears as a rampart/oval (if the SVC is not seen on the QS, then pls get a slice higher up to get the SVC). T1 Map at three levels ( base, mid, apex), T2 at mid level, T2* required. Thanks, Dr Fine Allergies As of Date: 12/07/2022 (No Known Allergies) Date Reviewed: 03/07/2013 Reviewed by: Carissa Alas Ma - Fully Assessed Reason for Visit: Orders [681] Prescriptions as of 12/09/2022 - MULTIVITAMIN TAB Take one(1) tablet daily. - TYLENOL PM 25 MG-500 MG/15 ML ORAL SOLN one tablet by mouth at night as needed Problem List As Of Date 12/07/2022 Noted Resolved JOINT PAIN-UNSPEC [M25.50] 05/20/2006 10/03/2006 SPRAIN SHOULDER/ARM NOS [MKI0568] 05/20/2006 10/03/2006 Complete rupture of rotator cuff [M75.120] 10/03/2006 Obesity (BMI 30-39.9) [E66.9] 02/16/2011 Special screening for malignant neoplasms, colo*03/13/2011 Encounter Status:Closed by CHARLOTTE GARCIA on 12/07/22 Normal [facility] Absolute lymphocyte counton 07-31-2022 Lymphocytes Auto (Unsp spec) [#/Vol] 1.53 10*3/uL 0.83-4.51 [facility] Work Phone: [phone] Basophil percentageon 2021 Basophils/100 WBC (Bld) 0.9 % 0-1 [facility] Work Phone: Eosinophils/100 WBC (Bld) 3.7 % 0-5 [facility] Work Phone: Neutrophils (Bld) [#/Vol] 5.5 10*3/uL 2.0-7.7 [facility] Work Phone: [phone] Neutrophils/100 WBC (Bld) 67.6 % 47-70 [facility] Work Phone: WBC (Bld) [#/Vol] 8.1 10*3/uL 4.4-11.0 [facility] Work Phone: Blood erythrocytes count (nu mber/volume)on 07-31-2022 RBC (Bld) [#/Vol] 5.24 10*6/uL 4.6-6.2 [facility]: Blood hemoglobin measurement (mass/volume)on 07-31-2022 Hemoglobin (Bld) [Mass/Vol] 15.9 g/dL 13.0-16.5 [facility] Work Phone: Blood lymphocytes/100 leukoc yteson 07-31-2022 Lymphocytes/100 WBC (Bld) 18.9 % 19-41 [facility] Work Phone: Blood monocytes/100 leukocyt eson 07-31-2022 Monocytes/100 WBC (Bld) 8.5 % 0-10 [facility] Work Phone: Blood platelet mean volumeon 07-31-2022 Platelet mean volume (Bld) [Entitic vol] 10.1 fL 6.2-12.0 [facility] Work Phone: Determination of erythrocyte mean corpuscular volume (MCV)on 07-31-2022 MCV (RBC) [Entitic vol] 91.0 fL 80-94 [facility] Work Phone: Hematocrit Auto (Bld) [Volum e fraction]on 07-31-2022 Hematocrit (Bld) [Volume fraction] 47.7 % 40-54 [facility] Work Phone: INR in Blood by Coagulation assayon 07-31-2022 INR Coag (Bld) [Relative time] 1.1 {INR} [facility] Work Phone: Laboratory - Coagulationon 1 09-30-2021 aPTT Coag (Bld) [Time] 29.9 s 24.1-36.2 [facility] Work Phone: PT Coag (PPP) [Time] 13.5 s 11.7-14.9 [facility] Work Phone: Laboratory - Hematology and Cell countson 07-31-2022 Erythrocyte distribution width (RBC) [Entitic vol] 40.6 fL 35.1-43.9 [facility] Work Phone: Erythrocyte distribution width (RBC) [Ratio] 12.3 % 11.6-14.6 [facility] Work Phone: Immature granulocytes/100 WBC (Bld) 0.400 % 0.0-0.9 [facility] Work Phone: Comment on above: IG% - Immature Granu locytes (promyelocytes, myelocytes and metamyelocytes) > 1% indicates that a LEFT SHIFT is Present. MCH (RBC) [Entitic mass] 30.3 pg 27.0-32.0 [facility] Work Phone: Nucleated RBC/100 WBC (Bld) [Ratio] 0 % 0-5 [facility] Work Phone: MCHC Auto (RBC) [Mass/Vol]on 07-31-2022 MCHC (RBC) [Mass/Vol] 33.3 g/dL 32-36 [facility] Work Phone: Platelets bldon 07-31-2022 Platelets (Bld) [#/Vol] 185 10*3/uL 150-450 [facility] Work Phone: 24 hour urine albumin/total protein ratio by electrophoresis (mass fraction)on 07-25-2022 Albumin Elph (24H U) [Mass fraction] 23.1 % . [facility] Work Phone: 24 hour urine alpha 1 globul in/total protein ratio by electrophoresis (mass fraction)on 07-25-2022 Alpha 1 globulin Elph (24H U) [Mass fraction] 4.0 % . [facility] Work Phone: 24 hour urine alpha 2 globul in/total protein ratio by electrophoresis (mass fraction)on 07-25-2022 Alpha 2 globulin Elph (24H U) [Mass fraction] 15.0 % . [facility] Work Phone: Absolute lymphocyte counton 07-25-2022 Lymphocytes Auto (Unsp spec) [#/Vol] 1.69 10*3/uL 0.83-4.51 [facility] Work Phone: [phone] Albumin Elph [Mass/Vol]on Albumin [Mass/Vol] 4.2 g/dL 2.9-4.4 [facility] Work Phone: Basophil percentageon 2021 Basophil percentage 0 SEEN /hpf 0-5 [facility] Work Phone: [phone] Basophils/100 WBC (Bld) 1.0 % 0-1 [facility] Work Phone: Bilirubin [Mass/Vol] 0.40 mg/dL 0.20-1.00 [facility] Work Phone: [phone] Comment on above: For patients on eltr ombopag therapy, use of Dimension [place] TBIL is not recommended. Chloride [Moles/Vol] 105 mmol/L 98-107 [facility] Work Phone: [phone] Eosinophils/100 WBC (Bld) 3.7 % 0-5 [facility] Work Phone: Glucose [Mass/Vol] 122 mg/dL 74-106 [facility] Work Phone: Comment on above: Fasting Glucose resu lt from 100 to 125 mg/dL suggests IMPAIRED HOMEOSTASIS per A.D.A. criteria. Neutrophils (Bld) [#/Vol] 4.5 10*3/uL 2.0-7.7 [facility] Work Phone: [phone] Neutrophils/100 WBC (Bld) 61.5 % 47-70 [facility] Work Phone: [phone] Potassium [Moles/Vol] 4.1 mmol/L 3.5-5.1 [facility] Work Phone: Protein [Mass/Vol] 7.7 g/dL 6.4-8.2 [facility] Work [facility]: Sodium [Moles/Vol] 141 mmol/L 136-145 [facility] Work Phone: WBC (Bld) [#/Vol] 7.2 10*3/uL 4.4-11.0 [facility] Work Phone: Bilirubin Test strip Ql (U)o n 07-25-2022 Bilirubin Ql (U) Negative Negative [facility] Work Phone: Blood erythrocytes count (nu mber/volume)on 07-25-2022 RBC (Bld) [#/Vol] 5.18 10*6/uL 4.6-6.2 [facility] Work Phone: Blood hemoglobin measurement (mass/volume)on 07-25-2022 Hemoglobin (Bld) [Mass/Vol] 16.1 g/dL 13.0-16.5 [facility] Work Phone: [phone] Blood lymphocytes/100 leukoc yteson 07-25-2022 Lymphocytes/100 WBC (Bld) 23.3 % 19-41 [facility] Work Phone: Blood monocytes/100 leukocyt eson 07-25-2022 Monocytes/100 WBC (Bld) 10.2 % 0-10 [facility] Work Phone: Blood platelet mean volumeon 07-25-2022 Platelet mean volume (Bld) [Entitic vol] 10.3 fL 6.2-12.0 [facility] Work Phone: Determination of erythrocyte mean corpuscular volume (MCV)on 07-25-2022 MCV (RBC) [Entitic vol] 90.7 fL 80-94 [facility] Work Phone: [phone] Hematocrit Auto (Bld) [Volum e fraction]on 07-25-2022 Hematocrit (Bld) [Volume fraction] 47.0 % 40-54 [facility] Work Phone: Interpretation of serum or p lasma protein pattern by immunofixation (narrative resulton 07-25-2022 Protein Fractions Immunofixation Leo [Interp] See comment [facility] Work Phone: Comment on above: Result: Not Observed Ketones Test strip Ql (U)on 07-25-2022 Ketones Ql (U) Negative Negative [facility] Work Phone: Laboratory - Chemistry and C hemistry - challengeon 07-25-2022 ALP [Catalytic activity/Vol] 65 U/L 45-117 [facility] Work Phone: ALT [Catalytic activity/Vol] 67 U/L 16-61 [facility] Work Phone: CO2 [Moles/Vol] 29.0 mmol/L 21.0-32.0 [facility] Work Phone: Urea nitrogen/Creatinine [Mass ratio] 20.8 mg/mg 10-20 [facility] Work Phone: Laboratory - Hematology and Cell countson 07-25-2022 Erythrocyte distribution width (RBC) [Entitic vol] 40.8 fL 35.1-43.9 [facility] Work Phone: Erythrocyte distribution width (RBC) [Ratio] 12.2 % 11.6-14.6 [facility] Work Phone: Immature granulocytes/100 WBC (Bld) 0.300 % 0.0-0.9 [facility] Work Phone: Comment on above: IG% - Immature Granu locytes (promyelocytes, myelocytes and metamyelocytes) > 1% indicates that a LEFT SHIFT is Present. MCH (RBC) [Entitic mass] 31.1 pg 27.0-32.0 [facility] Work Phone: Nucleated RBC/100 WBC (Bld) [Ratio] 0 % 0-5 [facility] Work Phone: MCHC Auto (RBC) [Mass/Vol]on 07-25-2022 MCHC (RBC) [Mass/Vol] 34.3 g/dL 32-36 [facility] Work Phone: Mucus LM Ql (Urine sed)on Mucus Ql (Urine sed) 0 SEEN /hpf [facility] Work Phone: Nitrite Test strip Ql (U)on 07-25-2022 Nitrite Ql (U) Negative Negative [facility] Work Phone: No Panel Informationon 07-25 Addendum Document Comment . [facility] Work Phone: Comment on above: Protein electrophore sis scan will follow via computer,mail, or kitchen worker delivery. Estimated GFR (MDRD) Amer 95 mL/min >60 [facility] Work Phone: Comment on above: GFR Calc Estimated GFR (MDRD) Non-Af Amer 78 mL/min >60 [facility] Work Phone: Comment on above: Non- GFR Calc Free Lambda Light Chains, Quant 13.9 mg/L 5.7-26.3 [facility] Work Phone: Urine Immunofixation PEP Note Comment . [facility] Work Phone: Comment on above: Protein electrophore sis scan will follow via computer,mail, or kitchen worker delivery. Platelets bldon 07-25-2022 Platelets (Bld) [#/Vol] 191 10*3/uL 150-450 [facility] Work Phone: Protein Test strip Ql (U)on 07-25-2022 Protein Ql (U) Negative Negative [facility] Work Phone: Serum aokjj-[id number]-pbmkinua measu rement by electrophoresison 07-25-2022 Alpha 1 globulin Elph [Mass/Vol] 0.2 g/dL 0.0-0.4 [facility] Work Phone: Alpha 1 globulin Elph [Mass/Vol] 0.7 g/dL 0.4-1.0 [facility] Work [phone] Serum globulin measurement ( mass/volume)on 07-25-2022 Globulin (S) [Mass/Vol] 3.1 g/dL 2.2-3.9 [facility] Work Phone: Serum immunoglobulin kappa l ight chains/immunoglobulin lambda light chains mass ratioon 07-25-2022 Immunoglobulin light chains.kappa/Immunoglob ulin light chains.lambda (S) [Mass ratio] 1.40 0.26-1.65 [facility] Work Phone: Comment on above: Performed at: [place] [id number] Director: Dorian Cantrell PhD, Phone: [phone] Serum or plasma IgA measurem ent (mass/volume)on 07-25-2022 IgA [Mass/Vol] 97 mg/dL 61-437 [facility] Work Phone: Serum or plasma IgG measurem ent (mass/volume)on 07-25-2022 IgG [Mass/Vol] 1021 mg/dL [phone] [facility] Work Phone: Serum or plasma IgM measurem ent (mass/volume)on 07-25-2022 IgM [Mass/Vol] 78 mg/dL 20-172 [facility] Work Phone: Serum or plasma albumin kely urement (mass/volume)on 07-25-2022 Albumin [Mass/Vol] 4.4 g/dL 3.2-5.0 [facility] Work Phone: Serum or plasma albumin/glob ulin mass ratioon 07-25-2022 Albumin/Globulin [Mass ratio] 1.3 {ratio} 0.9-2.4 [facility] Work Phone: Serum or plasma beta globuli n measurement by electrophoresis (mass/volume)on 07-25-2022 Beta globulin Elph [Mass/Vol] 1.0 g/dL 0.7-1.3 [facility] Work Phone: Serum or plasma calcium kely urement (mass/volume)on 07-25-2022 Calcium [Mass/Vol] 9.6 mg/dL 8.5-10.1 [facility] Work Phone: Serum or plasma creatinine m easurement (mass/volume)on 07-25-2022 Creatinine [Mass/Vol] 1.01 mg/dL 0.70-1.30 [facility] Work Phone: Comment on above: The validity of the calculated GFR & GFRAA in patients over 70 years has not been determined. Clinical correlation is essential. Serum or plasma gamma globul in measurement by electrophoresis (mass/volume)on 07-25-2022 Gamma globulin Elph [Mass/Vol] 1.2 g/dL 0.4-1.8 [facility] Work Phone: Serum or plasma immunoelectr ophoresis interpretation (nominal result)on 07-25-2022 Interpretation IEP [Interp] Comment . [facility] Work Phone: Comment on above: No monoclonality det ected. Serum or plasma immunoglobul in kappa light chains measurement (mass/volume)on 07-25-2022 Immunoglobulin light chains.kappa [Mass/Vol] 19.5 mg/L 3.3-19.4 [facility] Work Phone: Serum or plasma urea nitroge n measurement (mass/volume)on 07-25-2022 Urea nitrogen [Mass/Vol] 21 mg/dL 7-18 [facility] Work Phone: Squamous epithelial cells de tection in urine sediment by light microscopyon 07-25-2022 Epithelial cells.squamous LM Ql (Urine sed) 0 SEEN /hpf 0-5 [facility] Work Phone: Thin prep Papanicolaou smear with manual screeningon 07-25-2022 Thin prep Papanicolaou smear with manual screening 31 U/L 15-37 [facility] Work Phone: Thin prep Papanicolaou smear with manual screening 7 5-15 [facility] Work Phone: Thin prep Papanicolaou smear with manual screening 231 U/L 87-241 [facility] Work Phone: Thin prep Papanicolaou smear with manual screening 1.4 0.7-1.7 [facility] Work Phone: Thin prep Papanicolaou smear with manual screening Comment . [facility] Work Phone: Comment on above: No monoclonality det ected. Total protein bloodon 2021 Protein [Mass/Vol] 7.3 g/dL 6.0-8.5 [facility] Work Phone: Urine beta globulin measurem ent by electrophoresis (mass/volume)on 07-25-2022 Beta globulin Elph (U) [Mass/Vol] 29.2 % . [facility] Work Phone: Urine blood detectionon 07-10 RBC Ql (U) Negative Negative [facility] Work Phone: RBC Ql (U) 0 SEEN /hpf 0-5 [facility] Work Phone: Urine clarityon 07-25-2022 Clarity (U) Clear Clear [facility] Work Phone: Urine color determinationon 07-25-2022 Color (U) Yellow Yellow [facility] Work Phone: Urine gamma globulin measure ment by electrophoresis (mass/volume)on 07-25-2022 Gamma globulin Elph (U) [Mass/Vol] 28.7 % . [facility] Work Phone: Urine glucose detectionon Glucose Ql (U) Normal mg/dl Normal [facility] Work Phone: Urine leukocyte esterase det ection by dipstickon 07-25-2022 Leukocyte esterase Test strip Ql (U) Negative Negative [facility] Work Phone: Urine monoclonal protein/tot al protein mass ratio by electrophoresison 07-25-2022 Protein.monoclonal Elph (U) [Mass fraction] Not Observed % Not Observed [facility] Work Phone: Urine pHon 07-25-2022 pH (U) 7.0 [pH] 5.0 - 8.0 [facility] Work Phone: Urine protein measurement (m ass/volume)on 07-25-2022 Protein (U) [Mass/Vol] 7.4 mg/dL Not Estab. [facility] Work Phone: Urine sediment bacteria coun t by microscopy (number/high power field)on 07-25-2022 Bacteria LM.HPF (Urine sed) [#/Area] 0 /[HPF] None Seen [facility] Work Phone: Urine specific gravity measu rementon 07-25-2022 Specific gravity (U) [Rel density] 1.015 1.002-1.030 [facility] Work Phone: Urobilinogen Auto test strip Ql (U)on 07-25-2022 Urobilinogen Ql (U) Normal mg/dl Normal [facility] Work Phone: Absolute lymphocyte counton 04-23-2022 Lymphocytes Auto (Unsp spec) [#/Vol] 1.42 10*3/uL 0.83-4.51 [facility] Work Phone: Basophil percentageon 2021 Basophils/100 WBC (Bld) 0.8 % 0-1 [facility] Work Phone: Eosinophils/100 WBC (Bld) 3.5 % 0-5 [facility] Work Phone: Neutrophils (Bld) [#/Vol] 4.7 10*3/uL 2.0-7.7 [facility] Work Phone: Neutrophils/100 WBC (Bld) 66.4 % 47-70 [facility] Work Phone: WBC (Bld) [#/Vol] 7.1 10*3/uL 4.4-11.0 [facility] Work Phone: Bilirubin [Mass/Vol] 0.70 mg/dL 0.20-1.00 [facility] Work Phone: Comment on above: For patients on eltr ombopag therapy, use of Dimension [place] TBIL is not recommended. Chloride [Moles/Vol] 103 mmol/L 98-107 [facility] Work Phone: Cholesterol [Mass/Vol] 122 mg/dL <200 [facility] Work Phone: Comment on above: <200 mg/dL Desirable 200-240 mg/dL Borderline >240 mg/dL High Risk Glucose [Mass/Vol] 108 mg/dL 74-106 [facility] Work Phone: Comment on above: Fasting Glucose resu lt from 100 to 125 mg/dL suggests IMPAIRED HOMEOSTASIS per A.D.A. criteria. Potassium [Moles/Vol] 4.2 mmol/L 3.5-5.1 [facility] Work Phone: Protein [Mass/Vol] 7.7 g/dL 6.4-8.2 [facility] Work Phone: Sodium [Moles/Vol] 138 mmol/L 136-145 [facility] Work Phone: Triglyceride [Mass/Vol] 130 mg/dL <199 [facility] Work Phone: Comment on above: The drugs N-Acetylcy steine and Metamizole may falsely depress this assay.Serum Triglycerides Reference Interval Normal <150 mg/dL Borderline high 150 - 199 mg/dL High 200 - 499 mg/dL Very High > or = 500 mg/dL Blood erythrocytes count (nu mber/volume)on 04-23-2022 RBC (Bld) [#/Vol] 5.33 10*6/uL 4.6-6.2 [facility] Work Phone: Blood hemoglobin measurement (mass/volume)on 04-23-2022 Hemoglobin (Bld) [Mass/Vol] 16.5 g/dL 13.0-16.5 [facility] Work Phone: Blood lymphocytes/100 leukoc yteson 04-23-2022 Lymphocytes/100 WBC (Bld) 19.9 % 19-41 [facility] Work Phone: Blood monocytes/100 leukocyt eson 04-23-2022 Monocytes/100 WBC (Bld) 9.1 % 0-10 [facility] Work Phone: Blood platelet mean volumeon 04-23-2022 Platelet mean volume (Bld) [Entitic vol] 10.4 fL 6.2-12.0 [facility] Work Phone: Determination of erythrocyte mean corpuscular volume (MCV)on 04-23-2022 MCV (RBC) [Entitic vol] 91.9 fL 80-94 [facility] Work Phone: Direct bilirubinon 2 Bilirubin.direct [Mass/Vol] 0.18 mg/dL 0.00-0.30 [facility] Work Phone: Hematocrit Auto (Bld) [Volum e fraction]on 04-23-2022 Hematocrit (Bld) [Volume fraction] 49.0 % 40-54 [facility] Work Phone: Laboratory - Chemistry and C hemistry - challengeon 04-23-2022 ALP [Catalytic activity/Vol] 68 U/L 45-117 [facility] Work Phone: [phone] ALT [Catalytic activity/Vol] 81 U/L 16-61 [facility] Work Phone: CO2 [Moles/Vol] 29.0 mmol/L 21.0-32.0 [facility] Work Phone: Globulin (S) [Mass/Vol] 3.7 g/dL 2.2-4.2 [facility] Work Phone: Urea nitrogen/Creatinine [Mass ratio] 13.7 mg/mg 10-20 [facility] Work Phone: Laboratory - Hematology and Cell countson 04-23-2022 Erythrocyte distribution width (RBC) [Entitic vol] 41.4 fL 35.1-43.9 [facility] Work Phone: Erythrocyte distribution width (RBC) [Ratio] 12.2 % 11.6-14.6 [facility] Work Phone: Immature granulocytes/100 WBC (Bld) 0.300 % 0.0-0.9 [facility] Work Phone: Comment on above: IG% - Immature Granu locytes (promyelocytes, myelocytes and metamyelocytes) > 1% indicates that a LEFT SHIFT is Present. MCH (RBC) [Entitic mass] 31.0 pg 27.0-32.0 [facility] Work Phone: Nucleated RBC/100 WBC (Bld) [Ratio] 0 % 0-5 [facility] Work Phone: MCHC Auto (RBC) [Mass/Vol]on 04-23-2022 MCHC (RBC) [Mass/Vol] 33.7 g/dL 32-36 [facility] Work Phone: No Panel Informationon 04-23 Estimated GFR (MDRD) Amer 94 mL/min >60 [facility] Work Phone: Comment on above: GFR Calc Estimated GFR (MDRD) Non-Af Amer 78 mL/min >60 [facility] Work Phone: Comment on above: Non- GFR Calc Thyroid Stimulating Hormone (TSH) 2.88 uIU/mL 0.358-3.74 [facility] Work Phone: Platelets bldon 04-23-2022 Platelets (Bld) [#/Vol] 166 10*3/uL 150-450 [facility] Work Phone: Serum or plasma albumin kely urement (mass/volume)on 04-23-2022 Albumin [Mass/Vol] 4.0 g/dL 3.2-5.0 [facility] Work Phone: Serum or plasma albumin/glob ulin mass ratioon 08-15-2022 Albumin/Globulin [Mass ratio] 1.1 {ratio} 0.9-2.4 [facility] Work Phone: Serum or plasma calcium kely urement (mass/volume)on 04-23-2022 Calcium [Mass/Vol] 9.0 mg/dL 8.5-10.1 [facility] Work Phone: Serum or plasma cholesterol in HDL measurement (mass/volume)on 04-23-2022 Cholesterol in HDL [Mass/Vol] 32 mg/dL >40 [facility] Work Phone: Comment on above: The drugs N-Acetylcy steine and Metamizole may falsely depress this assay. Reference Range HDL <40 mg/dL Low HDL Cholesterol HDL >or= 60 mg/dL High HDL Cholesterol Serum or plasma cholesterol in VLDL measurement (mass/volume)on 04-23-2022 Cholesterol in VLDL [Mass/Vol] 26 mg/dL 5-40 [facility] Work Phone: Serum or plasma creatinine m easurement (mass/volume)on 04-23-2022 Creatinine [Mass/Vol] 1.02 mg/dL 0.70-1.30 [facility] Work Phone: Comment on above: The validity of the calculated GFR & GFRAA in patients over 70 years has not been determined. Clinical correlation is essential. Serum or plasma low density lipoprotein (LDL) cholesterol measurement (mass/volume)on 04-23-2022 Cholesterol in LDL [Mass/Vol] 64 mg/dL 0-130 [facility] Work Phone: Serum or plasma urea nitroge n measurement (mass/volume)on 04-23-2022 Urea nitrogen [Mass/Vol] 14 mg/dL 7-18 [facility] Work Phone: Thin prep Papanicolaou smear with manual screeningon 04-23-2022 Thin prep Papanicolaou smear with manual screening 32 U/L 15-37 [facility] Work Phone: Thin prep Papanicolaou smear with manual screening 6 5-15 [facility] Work Phone: Provider Note - ED v2on 02-1 8-2020 Provider Note - ED v2 Provider Note - ED v2: Chart Review: ED NOTES ED NOTES: Patient presents with complaints of acute onset facial pressure/pain accompanied by cloudy and discolored nasal mucus, sore throat, and cough for [5] days. Patient points to their frontal sinuses as the source of their constant 4 out of 10 pressure. Only time has made their symptoms worse while nothing makes them better. Patient denies the use of any mpnk-qzi-cprbsnk medications or home remedies prior to arrival for symptom management. HISTORY OF PRESENTING ILLNESS MARTIN is a 64 year old Male and was seen by me at 27-Oct-2019 08:25. The historian is the patient. Triage Information: Most recent Vital Sign Value Date PAST MEDICAL HISTORY ATTESTATION: I have reviewed and confirmed nurse's/medic's notes for patient's medications, allergies, medical history, and surgical history PSYCHOSOCIAL SCREENING: NO: concerns for safety at home, feelings of depression, feels like hurting others and feels like hurting self ALLERGIES/INTOLERANCES : No Known Allergies HEALTH HISTORY: No documented data. OUTPATIENT MEDICATIONS: Home Medications Review Status for Reconciliation: Complete Med Status: Patient Currently Takes Medications Drug Name: lisinopril 10 mg oral tablet Instructions: 1 tab(s) orally once a day Drug Name: metoprolol tartrate 25 mg oral tablet Instructions: 1 tab(s) orally 2 times a day Drug Name: doxycycline hyclate 100 mg oral tablet Instructions: 1 tab(s) orally 2 times a day SIGNIFICANT EVENTS: No documented data. REVIEW OF SYSTEMS ENMT Nose: POSITIVE for: congestion and discharge RESPIRATORY: POSITIVE for: cough All other systems reviewed and are negative PHYSICAL EXAM CONSTITUTIONAL: Well appearing, well nourished, awake, alert, oriented to person, place, time/situation and in no apparent distress. HENMT: Airway patent, ears with clear tympanic membranes bilaterally. Nasal mucosa clear. Mouth with normal mucosa. Throat has no vesicles, no oropharyngeal exudates and uvula is midline. Face with no lymph node enlargement. Pain and frontal sinuses when palpated. EYES: Clear bilaterally, pupils equal, round and reactive to light. CARDIOVASCULAR: Normal rate, regular rhythm. RESPIRATORY: Breath sounds clear and equal bilaterally and unlabored. Rales rhonchi or crackles. GASTROINTESTINAL: Abdomen soft, non-distended, no rebound, no guarding. GENITOURINARY: No discharge, no lesions. MUSCULOSKELETAL: Spine appears normal, range of motion is not limited, no muscle or joint tenderness. NEUROLOGICAL: Alert and oriented, no focal deficits, no motor or sensory deficits. SKIN: Skin normal color for race, warm, dry and intact. No evidence of trauma. PSYCHIATRIC: Alert and oriented to person, place, time/situation. normal mood and affect. No apparent risk to self or others. HEME/LYMPH: No cervical adenopathy. RESULTS/VITAL SIGNS VITAL SIGNS: T PRBP SpO2O2(LPM) %FiO2 Method 27-Oct-2019 08:33:[id number] CLINICAL IMPRESSION Diagnosis/Annotation: ED Dx Name:Acute sinusitis Code:J01.90 Name:Frontal sinusitis Code:J32.1 Dispostion: discharged Type: home ATTESTATION Comments/Additional Findings: Patient diagnosed with frontal sinusitis. Patient was recently on Augmentin in September. Patient was prescribed doxycycline. Patient was instructed on proper use of doxycycline and supportive therapies. Patient will follow up with primary care physician in 2-3 days or if symptoms worsen. CRITICAL CARE TIME Is this a critically ill patient: no Electronic Signatures: Shahida Degroot (COMMODITY DIRECTOR-ELECTRONIC COMPONENT PROCESSOR) (Signed 27-Oct-2019 09:11) Authored: Provider Note - ED v2 Last Updated: 27-Oct-2019 09:11 by Shahida Degroot (COMMODITY DIRECTOR-ELECTRONIC COMPONENT PROCESSOR) [facility] Provider Note - ED v2on Provider Note - ED v2 Provider Note - ED v2: Chart Review: ED NOTES ED NOTES: Nontoxic-appearing male presents to urgent care with a chief complaint of possible sinus infection. Duration of symptoms 8 days. Associated symptoms sinus pressure for sinus drainage nonproductive cough. Patient states history of sinus infections past similar signs symptoms. Patient states positive sick contacts. Patient states 5 out of 10 maxillary pressure with palpation. Patient denies any hxjf-cel-zwsezic medications or home her symptom management. Patient denies any fevers, nausea, vomiting, chest pain, shortness of breath, headache, visual changes, pleuritic pain, abdominal pain or change in bowel or bladder habits. HISTORY OF PRESENTING ILLNESS MARTIN is a 63 year old Male and was seen by me at 15-Sep-2019 09:34. The historian is the patient. Triage Information: Most recent Vital Sign Value Date PAST MEDICAL HISTORY ATTESTATION: I have reviewed and confirmed nurse's/medic's notes for patient's medications, allergies, medical history, and surgical history PSYCHOSOCIAL SCREENING: NO: concerns for safety at home, feelings of depression, feels like hurting others and feels like hurting self ALLERGIES/INTOLERANCES : No Known Allergies HEALTH HISTORY: No documented data. OUTPATIENT MEDICATIONS: Home Medications Review Status for Reconciliation: Complete Med Status: Patient Currently Takes Medications Drug Name: lisinopril 10 mg oral tablet Instructions: 1 tab(s) orally once a day Drug Name: metoprolol tartrate 25 mg oral tablet Instructions: 1 tab(s) orally 2 times a day SIGNIFICANT EVENTS: No documented data. REVIEW OF SYSTEMS ENMT Nose: POSITIVE for: congestion and discharge Throat/Neck: POSITIVE for: throat pain RESPIRATORY: POSITIVE for: cough All other systems reviewed and are negative PHYSICAL EXAM CONSTITUTIONAL: Well appearing, well nourished, awake, alert, oriented to person, place, time/situation and in no apparent distress. HENMT: Airway patent, ears with clear tympanic membranes bilaterally. Sinus pressure upon palpation Mouth with normal mucosa. Throat has no vesicles, no oropharyngeal exudates and uvula is midline. Face with no lymph node enlargement. EYES: Clear bilaterally, pupils equal, round and reactive to light. CARDIOVASCULAR: Normal rate, regular rhythm. Normal peripheral perfusion RESPIRATORY: Breath sounds clear and equal bilaterally and unlabored GASTROINTESTINAL: Abdomen soft, non-distended, no rebound, no guarding. MUSCULOSKELETAL: Spine appears normal, range of motion is not limited, no muscle or joint tenderness. NEUROLOGICAL: Alert and oriented, no focal deficits, no motor or sensory deficits. SKIN: Skin normal color for race, warm, dry and intact. No evidence of trauma. PSYCHIATRIC: Alert and oriented to person, place, time/situation. normal mood and affect. No apparent risk to self or others. HEME/LYMPH: Negative cervical adenopathy. CLINICAL IMPRESSION Diagnosis/Annotation: ED Dx Name:Acute sinusitis Code:J01.90 Dispostion: discharged Type: home ATTESTATION Comments/Additional Findings: Patient was diagnosis sinusitis. Patient was placed on Augmentin. Patient was educated on supportive therapies. Patient will follow up with PCP in 2-3 days for reevaluation. Patient was instructed to immediately proceed to emergency room for any new, worsening, or symptoms lasting longer than anticipated. The patient's clinical presentation is otherwise unremarkable at this time. Based on exam and clinical finding the patient is stable for discharge. Plan of care was discussed with patient. Patient verbalizes understanding and agrees to plan of care. This note was generated using [employer] software. It may contain errors in wording, punctuation, or spelling. CRITICAL CARE TIME Is this a critically ill patient: no Electronic Signatures: Nnamdi Guillaume (COMMODITY DIRECTOR-ELECTRONIC COMPONENT PROCESSOR) (Signed 15-Sep-2019 09:57) Authored: Provider Note - ED v2 Last Updated: 15-Sep-2019 09:57 by Nnamdi Guillaume (COMMODITY DIRECTOR-ELECTRONIC COMPONENT PROCESSOR) [facility] Lab Report: Lipid Profileon 10-26-2017 Cholesterol 145 mg/dL Invalid Interpretation Code 200 [facility] Work Phone: [phone] HDL Cholesterol 33 mg/dL Low [facility] Work Phone: [phone] LDL Cholesterol 91 mg/dL Invalid Interpretation Code 0-130 [facility] Work Phone: [phone] Triglyceride 103 mg/dL Invalid Interpretation Code [facility] Work Phone: [phone] very low density lipoproteins 21 mg/dL Invalid Interpretation Code 5-40 [facility] Work Phone: [phone] Lab Report: Liver Profileon 10-26-2017 Alanine aminotransferase (ALT) 51 U/L Invalid Interpretation Code 16-61 [facility] Work Phone: [phone] Albumin 4.1 g/dL Invalid Interpretation Code 3.2-5.0 [facility] Work Phone: [phone] Alkaline phosphatase (ALP) 71 U/L Invalid Interpretation Code 45-117 [facility] Work Phone: [phone] Aspartate aminotransferase (AST) 27 U/L Invalid Interpretation Code 15-37 [facility] Work Phone: [phone] Bilirubin (direct) 0.14 mg/dL Invalid Interpretation Code 0.00-0.30 [facility] Work Phone: [phone] Bilirubin (total) 0.50 mg/dL Invalid Interpretation Code 0.20-1.00 [facility] Work Phone: [phone] Globulin 3.2 g/dL Invalid Interpretation Code 2.2-4.2 [facility] Work Phone: [phone] Protein 7.3 g/dL Invalid Interpretation Code 6.4-8.2 [facility] Work Phone: [phone] Office Visiton 05-08-2017 Dietary management education, guidance, and counseling (procedure) yes Invalid Interpretation Code [facility] Work Phone: [phone] Documentation of current medications (procedure) Done Invalid Interpretation Code [facility] Work Phone: [phone] Fall risk assessment No Invalid Interpretation Code [facility] Work Phone: [phone] Protein mass conc Done [facility] Work Phone: [phone] Tobacco smoking status PRIS Tobacco smoking status NHIS Invalid Interpretation Code [facility] Work Phone: [phone] Tobacco smoking status PRIS Never smoker [facility] Work Phone: [phone] Tobacco use [facility] Never smoker Invalid Interpretation Code [facility] Work Phone: [phone] Office Visiton 04-29-2017 Tobacco smoking status PRIS Tobacco smoking status PRIS Invalid Interpretation Code [facility] Work Phone: [phone] Tobacco smoking status [facility] Current [facility] Work Phone: [phone] Microbiology: Culture, Deep Woundon 04-19-2017 [facility] Cult, AnaerobicNo anaerobic bacteria isolated. [facility] Work Phone: [phone] GE use only - for [employer] import when terms are not otherwise specified Cult, AnaerobicNo anaerobic bacteria isolated. Invalid Interpretation Code [facility] Work Phone: [phone] Office Visiton 04-19-2017 Documentation of current medications (procedure) Done Invalid Interpretation Code [facility] Work Phone: [phone] Microbiology: (P) Culture, D eep Woundon 04-18-2017 GE use only - for [employer] import when terms are not otherwise specified Cult, AnaerobicChecking for anaerobes, further studies to follow. Invalid Interpretation Code [facility] Work Phone: [phone] Replaced Document: (P) Cultu re, Deep Woundon 04-18-2017 [facility] Vancomycin $ 1 S [facility] Work Phone: [phone] Lab Report: Basic Metabolic Profile (BMP)on 04-17-2017 Anion gap 7 mmol/L Invalid Interpretation Code 5-15 [facility] Work Phone: [phone] Anion gap molar conc 7 mmol/L 5-15 [facility] Work Phone: [phone] BUN/Creatinine Ratio 17.9 RATIO Invalid Interpretation Code 10-20 [facility] Work [phone] Calcium 8.1 mg/dL Low 8.5-10.1 [facility] Work Phone: [phone] Chloride 101 mmol/L Invalid Interpretation Code 98-107 [facility] Work Phone: [phone] CO2 27.0 mmol/L Invalid Interpretation Code 21.0-32.0 [facility] Work Phone: [phone] CO2 ppres (BldV) 27.0 mmol/L 21.0-32.0 [facility] Work Phone: [phone] Creatinine 1.12 mg/dL Invalid Interpretation Code 0.70-1.30 [facility] Work Phone: [phone] Creatinine 78.28 mL/min Invalid Interpretation Code [facility] Work Phone: [phone] eGFR (non-black) 71 mL/min/{1.73_m2} Invalid Interpretation Code >60 [facility] Work Phone: [phone] eGFR (non-black) 86 mL/min/{1.73_m2} Invalid Interpretation Code >60 [facility] Work Phone: [phone] EST GFR - AA 86 mL/min >60 [facility] Work Phone: [phone] Glucose 148 mg/dL High 70-110 [facility] Work Phone: [phone] Glucose mass conc 148 mg/dL High 70-110 [facility] Work Phone: [phone] Potassium 4.3 mmol/L Invalid Interpretation Code 3.5-5.1 [facility] Work Phone: [phone] Sodium 135 mmol/L Low 136-145 [facility] Work Phone: [phone] Urea nitrogen 20 mg/dL High 7-18 [facility] Work Phone: [phone] Lab Report: CRPon 04-17-2017 C reactive protein (CRP) 3.13 mg/dL High Units converted. See lab report for original value. [facility] Work Phone: [phone] Lab Report: Erythrocyte Sed Rateon 04-17-2017 Erythrocyte sedimentation rate 29 mm/h High 0-20 [facility] Work Phone: [phone] Replaced Document: (P) CBC-C omplete Blood Cnt No Diffon 04-17-2017 Erythrocyte distribution width Ratio (RBC) 42.9 fL 35.1-43.9 [facility] Work Phone: [phone] Erythrocyte distribution width Ratio (RBC) 12.8 % 11.6-14.6 [facility] Work Phone: [phone] Erythrocytes (RBC) 4.48 10*6/uL Low 4.6-6.2 [facility] Work Phone: [phone] Hematocrit (HCT) 41.2 % Invalid Interpretation Code 40-54 [facility] Work Phone: [phone] Hematocrit Volume Fraction (Bld) 41.2 % 40-54 [facility] Work Phone: [phone] Hemoglobin (HGB) 13.6 g/dL Invalid Interpretation Code 13.0-16.5 [facility] Work Phone: [phone] MCH 30.4 pg Invalid Interpretation Code 27.0-32.0 [facility] Work Phone: [phone] MCH Entitic mass (RBC) 30.4 pg 27.0-32.0 [facility] Work Phone: 1() 0 MCHC 33.0 G/GL Invalid Interpretation Code 32-36 [facility] Work Phone: 1() 0 MCHC mass conc (RBC) 33.0 G/GL 32-36 [facility] Work Phone: 1() 0 MCV 92.0 fL Invalid Interpretation Code 80-94 [facility] Work Phone: 1() 0 MCV Entitic volume (RBC) 92.0 fL 80-94 [facility] Work Phone: 1() 0 Platelet mean volume Entitic volume (Bld) 9.5 fL 6.2-12.0 [facility] Work Phone: 1() 0 Platelets 212 10*3/mm3 Invalid Interpretation Code 150-450 [facility] Work Phone: 1() 0 Platelets #/vol (Bld) 212 10*3/mm3 150-450 [facility] Work Phone: 1() 0 PMV by Poornima 9.5 fL Invalid Interpretation Code 6.2-12.0 [facility] Work Phone: 1() 0 RBC #/vol (Bld) 4.48 10*6/uL Low 4.6-6.2 [facility] Work Phone: 1() 0 RDW-CA 12.8 % Invalid Interpretation Code 11.6-14.6 [facility] Work Phone: [phone] 0 red blood cell distribution width, size density 42.9 fL Invalid Interpretation Code 35.1-43.9 [facility] Work Phone: 1() 0 WBC #/vol (Bld) 15.2 10*3/uL High 4.4-11.0 [facility] Work Phone: [phone]) 0 WBC (Leukocytes) 15.2 10*3/uL High 4.4-11.0 [facility] Work Phone: [phone] Lab Report: Lipid Profileon 04-16-2017 Cholesterol 133 mg/dL [facility] Work Phone: [phone] HDL Cholesterol 35 mg/dL [facility] Work Phone: [phone] LDL Cholesterol 74 mg/dL 0-130 [facility] Work Phone: [phone] Triglyceride 120 mg/dL [facility] Work Phone: [phone] very low density lipoproteins 24 mg/dL 5-40 [facility] Work Phone: [phone] Lab Report: Liver Profileon 04-16-2017 Alanine aminotransferase (ALT) 48 U/L 12-78 [facility] Work Phone: [phone] Albumin 3.6 g/dL 3.4-5.0 [facility] Work Phone: [phone] Alkaline phosphatase (ALP) 83 U/L Invalid Interpretation Code 45-117 [facility] Work Phone: [phone] ALP enzyme act/vol (Bld) 83 U/L 45-117 [facility] Work Phone: [phone] Aspartate aminotransferase (AST) 17 U/L 15-37 [facility] Work Phone: [phone] Bilirubin (direct) 0.16 mg/dL 0.00-0.30 [facility] Work Phone: [phone] Bilirubin (total) 0.60 mg[facility]dL [facility].20[facility] Work Phone: [phone] Globulin 4.2 g/dL High 2.3-3.5 [facility] Work Phone: [phone] Globulin mass conc (S) 4.2 g/dL High 2.3-3.5 [facility] Work Phone: [phone] Protein 7.8 g/dL 6.4-8.2 [facility] Work Phone: [phone] Microbiology: (P) Culture, D eep Woundon 04-16-2017 GE use only - for [employer] import when terms are not otherwise specified . Invalid Interpretation Code [facility] Work Phone: [phone] Office Visiton 04-15-2017 Dietary management education, guidance, and counseling (procedure) yes Invalid Interpretation Code [facility] Work Phone: [phone] Documentation of current medications (procedure) Done Invalid Interpretation Code [facility] Work Phone: [phone] Protein mass conc Done [facility] Work Phone: [phone] Tobacco smoking status NHIS Current Invalid Interpretation Code [facility] Work Phone: [phone] Tobacco smoking status NHIS Never smoker [facility] Work Phone: [phone] Tobacco use [facility] Never smoker Invalid Interpretation Code [facility] Work Phone: [phone] Clinical Lists Update: Prelo buck swamper 11-14-2016 Left ventricular Ejection fraction 70 % Invalid Interpretation Code [facility] Work Phone: [phone] Replaced Document: Yohana Bassett CG Observationson 11-02-2016 EKG QRS axis 2 deg [facility] Work Phone: [phone] electrocardiogram interpretation Sinus Rhythm - Negative T-waves -Possible Anterior ischemia. ABNORMAL Invalid Interpretation Code [facility] Work Phone: [phone] Interpretation Sinus Rhythm - Negative T-waves -Possible Anterior ischemia. ABNORMAL [facility] Work Phone: [phone] P [place] 51 deg [facility] Work Phone: [phone] P wave axis, electrocardiogram 51 deg Invalid Interpretation Code [facility] Work Phone: [phone] NE Interval 156 ms [facility] Work Phone: [phone] NE interval, electrocardiogram 156 ms Invalid Interpretation Code [facility] Work Phone: [phone] Pulse (Heart Rate) 70 /min Invalid Interpretation Code [facility] Orthopaedics Work Phone: [phone] QRS axis, electrocardiogram 2 deg Invalid Interpretation Code [facility] Work Phone: [phone] QRS Duration 96 ms [facility] Work Phone: [phone] QRS duration, electrocardiogram 96 ms Invalid Interpretation Code [facility] Work Phone: [phone] QT Interval new path ms [facility] Work Phone: [phone] QT interval, electrocardiogram new path ms Invalid Interpretation Code [facility] Work Phone: [phone] QTc [place] 417 ms [facility] Work Phone: [phone] T [place] 110 deg [facility] Work Phone: [phone] T wave axis, electrocardiogram 110 deg Invalid Interpretation Code [facility] Work Phone: [phone] Lab Report: Lipid Profileon 10-20-2016 Cholesterol in HDL mass conc 34 mg/dL Low [facility] Work Phone: [phone] Cholesterol in LDL mass conc 72 mg/dL 0-130 [facility] Work Phone: [phone] Cholesterol mass conc 134 mg/dL 200 [facility] Work Phone: [phone] Lipoprotein.pre-beta mass conc 28 mg/dL 5-40 [facility] Work Phone: [phone] Triglyceride mass conc 139 mg/dL [facility] Work Phone: [phone] Lab Report: Liver Profileon 10-20-2016 Albumin mass conc 4.1 g/dL 3.4-5.0 [facility] Work Phone: [phone] ALP enzyme act/vol (Bld) 78 U/L 45-117 [facility] Work Phone: [phone] ALT enzyme act/vol 54 U/L 12-[address] [facility]ics Work Phone: [phone] AST enzyme act/vol 29 U/L 15-[address] [facility] Work Phone: [phone] Bilirubin mass conc 0.60 mg/dL 0.20-1.00 [facility] Work Phone: [phone] Bilirubin.direct mass conc 0.13 mg/dL 0.00-0.30 [facility] Work Phone: [phone] Globulin mass conc (S) 3.2 g/dL 2.3-3.5 [facility] Work Phone: [phone] Protein mass conc 7.3 g/dL 6.4-8.2 [facility]opa[facility] Work Phone: [phone] Lab Report: Basic Metabolic Profile (BMP)on 02-24-2016 Anion gap molar conc 6 mmol/L 5-15 [facility] Work Phone: [phone] Calcium mass conc 8.9 mg/dL 8.5-10.1 [facility] Work Phone: [phone] Chloride molar conc 106 mmol/L 98-107 [facility] Work Phone: [phone] CO2 ppres (BldV) 27.0 mmol/L 21.0-32.0 [facility] Work Phone: [phone] Creatinine mass conc 0.96 mg/dL 0.70-1.30 [facility] Work Phone: [phone] EST GFR - AA 102 mL/min >60 [facility] Work Phone: [phone] GFR/1.73 sq M predicted among non-blacks MDRD vol rate/area (S/P/Bld) 85 mL/min/{1.73_m2} >60 [facility] Work Phone: [phone] Glucose mass conc 102 mg/dL 70-110 [facility] Work [phone] Potassium molar conc 4.2 mmol/L 3.5-5.1 [facility] Medicine and Orthopaedics Work Phone: [phone] Sodium molar conc 139 mmol/L 136-145 [facility] Work [phone] Urea nitrogen mass conc 17 mg/dL 7-18 [facility] and [facility] Work Phone: [phone] Urea nitrogen/Creatinine mass ratio 17.7 RATIO 10-20 [facility] Medicine [facility] Work Phone: [phone] Lab Report: CBC-Complete Blo od Cnt No Diffon 02-24-2016 Erythrocyte distribution width Ratio (RBC) 41.4 fL 35.1-43.9 [facility] Medicine and Orthopaedics Work Phone: [phone] Erythrocyte distribution width Ratio (RBC) 12.5 % 11.6-14.6 [facility] Medicine and Orthopaedics Work Phone: [phone] Hematocrit Volume Fraction (Bld) 45.1 % 40-54 [facility] Medicine [facility] Work Phone: [phone] Hemoglobin mass conc (Bld) 15.4 g/dL 13.0-16.5 [facility] Work Phone: [phone] MCH Entitic mass (RBC) 30.8 pg 27.0-32.0 [facility] Orthopaedics Work Phone: [phone] MCHC mass conc (RBC) 34.1 G/GL 32-36 [facility] Work Phone: [phone] MCV Entitic volume (RBC) 90.2 fL 80-94 [facility] Medicine [facility] Work Phone: [phone] Platelet mean volume Entitic volume (Bld) 10.6 fL 6.2-12.0 [facility] Work Phone: [phone] Platelets #/vol (Bld) 177 10*3/mm3 150-450 [facility] Orthopaedics Work Phone: [phone] RBC #/vol (Bld) 5.00 10*6/uL 4.6-6.2 [facility]ics Work Phone: [phone] WBC #/vol (Bld) 4.9 10*3/uL 4.4-11.0 [facility] and Orthopaedics Work Phone: [phone] Clinical Lists Updateon -0 Thyrotropin Qn 2.66 u[iU]/mL Invalid Interpretation Code [facility] Work Phone: [phone] Office Visit: [facility] 09-07-20 14 cardiac risk group C Invalid Interpretation Code [facility] Work Phone: [phone] General cardiovascular disease 10Y risk [#] Capron.D'Agostino N/A Invalid Interpretation Code [facility] Work Phone: [phone] Vital Signs Date Time Vital Sign Value Performing Clinician Facility 06-24-2024 13:58-0400 Body height 185.4 cm Edmund Kamara MD Work Phone: [facility] 06-24-2024 13:58-0400 Body mass index (BMI) [Ratio] 31.93 kg/m2 Edmund Kamara MD Work Phone: [facility] 06-24-2024 13:58-0400 Body weight 109.77 kg Edmund Kamara MD Work Phone: [facility] 06-24-2024 13:58-0400 Diastolic blood pressure 70 mm[Hg] Edmund Kamara MD Work Phone: [facility] 06-24-2024 13:58-0400 Heart rate 59 /min Edmund Kamara MD Work Phone: [facility] 06-24-2024 13:58-0400 Systolic blood pressure 132 mm[Hg] Edmund Kamara MD Work Phone: [facility] 03-25-2024 14:37-0400 Body height 185.4 cm Deena Francois MD Work Phone: [facility] 03-25-2024 14:37-0400 Body mass index (BMI) [Ratio] 31.14 kg/m2 Deena Francois MD Work Phone: [facility] 03-25-2024 14:37-0400 Body weight 107.05 kg Deena Francois MD Work Phone: [facility] 03-25-2024 14:37-0400 Diastolic blood pressure 86 mm[Hg] Deena Francois MD Work Phone: [facility] 03-25-2024 14:37-0400 Heart rate 61 /min Deena Francois MD Work Phone: [facility] 03-25-2024 14:37-0400 SaO2% (BldA) [Mass fraction] 100 % Deena Francois MD Work Phone: [facility] 03-25-2024 14:37-0400 Systolic blood pressure 147 mm[Hg] Deena Francois MD Work Phone: [facility] 01-08-2024 15:24-0400 Body mass index (BMI) [Ratio] 31.8 kg/m2 Deena Francois MD Work Phone: [facility] 01-08-2024 15:24-0400 Body weight 109.32 kg Deena Francois MD Work Phone: [facility] 01-08-2024 15:24-0400 Diastolic blood pressure 90 mm[Hg] Deena Francois MD Work Phone: [facility] 01-08-2024 15:24-0400 Heart rate 84 /min Deena Francois MD Work Phone: [facility] 01-08-2024 15:24-0400 Respiratory rate 14 /min Deena Francois MD Work Phone: [facility] 01-08-2024 15:24-0400 SaO2% (BldA) [Mass fraction] 99 % Deena Francois MD Work Phone: [facility] 01-08-2024 15:24-0400 Systolic blood pressure 145 mm[Hg] Deena Francois MD Work Phone: [facility] 12-30-2023 10:19-0400 Body mass index (BMI) [Ratio] 31.93 kg/m2 Card SOASTA Work Phone: [facility] 12-30-2023 10:19-0400 Body weight 109.77 kg Card Galloway Work Phone: [facility] 12-30-2023 10:19-0400 Diastolic blood pressure 84 mm[Hg] Card Galloway Work Phone: [facility] 12-30-2023 10:19-0400 Heart rate 62 /min Card Galloway Work Phone: [facility] 12-30-2023 10:19-0400 Systolic blood pressure 130 mm[Hg] Card Galloway Work Phone: [facility] 11-04-2023 07:28-0500 Body weight 111.13 kg Card Galloway Work Phone: [facility] 11-04-2023 07:28-0500 Diastolic blood pressure 76 mm[Hg] Card Galloway Work Phone: [facility] 11-04-2023 07:28-0500 Heart rate 73 /min Card Galloway Work Phone: [facility] 11-04-2023 07:28-0500 Systolic blood pressure 128 mm[Hg] Card Galloway Work Phone: [facility] 09-18-2023 15:29-0500 Body height 185.4 cm Deena Francois MD Work Phone: [facility] 09-18-2023 15:29-0500 Body weight 111.13 kg Deena Francois MD Work Phone: [facility] 09-18-2023 15:29-0500 Diastolic blood pressure 86 mm[Hg] Deena Francois MD Work Phone: [facility] 09-18-2023 15:29-0500 Heart rate 86 /min Deena Francois MD Work Phone: [facility] 09-18-2023 15:29-0500 SaO2% (BldA) [Mass fraction] 98 % Deena Francois MD Work Phone: [facility] 09-18-2023 15:29-0500 Systolic blood pressure 147 mm[Hg] Deena Francois MD Work Phone: [facility] 08-08-2023 14:01-0500 Body height 185.4 cm Justo Mehta COMMODITY DIRECTOR.ELECTRONIC COMPONENT PROCESSOR Work Phone: [facility] 08-08-2023 14:01-0500 Body temperature 98.1 [degF] Justo Roblesucis COMMODITY DIRECTOR.ELECTRONIC COMPONENT PROCESSOR Work Phone: [facility] 08-08-2023 14:01-0500 Body weight 109.05 kg Justo Roblesucis COMMODITY DIRECTOR.ELECTRONIC COMPONENT PROCESSOR Work Phone: [facility] 08-08-2023 14:01-0500 Diastolic blood pressure 79 mm[Hg] Justo Roblesucis COMMODITY DIRECTOR.ELECTRONIC COMPONENT PROCESSOR Work Phone: [facility] 08-08-2023 14:01-0500 Heart rate 90 /min Justo Kalucis COMMODITY DIRECTOR.ELECTRONIC COMPONENT PROCESSOR Work Phone: [facility] 08-08-2023 14:01-0500 Respiratory rate 14 /min Justo Kalucis COMMODITY DIRECTOR.ELECTRONIC COMPONENT PROCESSOR Work Phone: [facility] 08-08-2023 14:01-0500 SaO2% (BldA) [Mass fraction] 97 % Justo Mehta APRN.ELECTRONIC COMPONENT PROCESSOR Work Phone: [facility] 08-08-2023 14:01-0500 Systolic blood pressure 135 mm[Hg] Justo Mehta APRN.ELECTRONIC COMPONENT PROCESSOR Work Phone: [facility] 07-24-2023 12:50-0500 Diastolic blood pressure 79 mm[Hg] Deena Francois MD Work Phone: [facility] 07-24-2023 12:50-0500 Systolic blood pressure 145 mm[Hg] Deena Francois MD Work Phone: [facility] 07-24-2023 12:47-0500 Body height 185.4 cm Deena Francois MD Work Phone: [facility] 07-24-2023 12:47-0500 Body weight 112.04 kg Deena Francois MD Work Phone: [facility] 07-24-2023 12:47-0500 Heart rate 90 /min Deena Francois MD Work Phone: [facility] 07-24-2023 12:47-0500 SaO2% (BldA) [Mass fraction] 99 % Deena Francois MD Work Phone: [facility] 06-10-2023 07:54-0400 Body height 185.[address] Geoff Sainz [facility] 06-10-2023 07:54-0400 Body weight 109.[address] Geoff Sainz [facility] 06-07-2023 08:33-0400 Body mass index (BMI) [Ratio] 31.8 kg/m2 Dr. Geoff Sainz [facility] 04-30-2023 09:01-0400 Body height 185.[address] Geoff Sainz Work Phone: [facility] 04-30-2023 09:01-0400 Body mass index (BMI) [Ratio] 32 kg/m2 Dr. Geoff Sainz Work Phone: [facility] 04-30-2023 09:01-0400 Body weight 110.[address] Geoff Sainz Work Phone: [facility] 04-30-2023 09:01-0400 Diastolic blood pressure 77 mm[Hg] Dr. Geoff Sainz Work Phone: [facility] 04-30-2023 09:01-0400 Heart rate 78 /min Dr. Geoff Sainz Work Phone: [facility] 04-30-2023 09:01-0400 Respiratory rate 18 /min Dr. Geoff Sainz Work Phone: [facility] 04-30-2023 09:01-0400 SaO2% (BldA) [Mass fraction] 99 % Dr. Geoff Sainz Work Phone: [facility] 04-30-2023 09:01-0400 Systolic blood pressure 121 mm[Hg] Dr. Geoff Sainz Work Phone: [facility] 01-15-2023 09:51-0400 Body mass index (BMI) [Ratio] 33 kg/m2 Dr. Geoff Sainz Work Phone: [facility] 01-15-2023 09:51-0400 Body temperature 97.5 [degF] Dr. Geoff Sainz Work Phone: [facility] 01-15-2023 09:51-0400 Body weight 113.[address] Geoff Sainz Work Phone: [facility] 01-15-2023 09:51-0400 Diastolic blood pressure 78 mm[Hg] Dr. Geoff Sainz Work Phone: [facility] 01-15-2023 09:51-0400 Heart rate 86 /min Dr. Geoff Sainz Work Phone: [facility] 01-15-2023 09:51-0400 Respiratory rate 16 /min Dr. Geoff Sainz Work Phone: [facility] 01-15-2023 09:51-0400 SaO2% (BldA) [Mass fraction] 97 % Dr. Geoff Sainz Work Phone: [facility] 01-15-2023 09:51-0400 Systolic blood pressure 142 mm[Hg] Dr. Geoff Sainz Work Phone: [facility] 08-06-2022 10:11-0500 Body height 185.[address] Geoff Sainz Work Phone: [facility] Work Phone: 08-06-2022 10:11-0500 Body mass index (BMI) [Ratio] 33 kg/m2 Dr. Geoff Sainz Work Phone: [facility] Work Phone: 08-06-2022 10:11-0500 Body temperature 97.3 [degF] Dr. Geoff Sainz Work Phone: [facility] Work Phone: 08-06-2022 10:11-0500 Body weight 113.[address] Geoff Sainz Work Phone: [facility] Work Phone: 08-06-2022 10:11-0500 Diastolic blood pressure 94 mm[Hg] Dr. Geoff Sainz Work Phone: [facility] Work Phone: 08-06-2022 10:11-0500 Heart rate 82 /min Dr. Geoff Sainz Work Phone: [facility] Work Phone: 08-06-2022 10:11-0500 Respiratory rate 16 /min Dr. Geoff Sainz Work Phone: [facility] Work Phone: 08-06-2022 10:11-0500 SaO2% (BldA) [Mass fraction] 99 % Dr. Geoff Sainz Work Phone: [facility] Work Phone: 08-06-2022 10:11-0500 Systolic blood pressure 148 mm[Hg] Dr. Geoff Sainz Work Phone: [facility] Work Phone: 07-31-2022 11:55-0500 Diastolic blood pressure 70 mm[Hg] Dr. Geoff Sainz Work Phone: [facility] Work Phone: 07-31-2022 11:55-0500 Heart rate 84 /min Dr. Geoff Sainz Work Phone: [facility] Work Phone: 07-31-2022 11:55-0500 Respiratory rate 15 /min Dr. Geoff Saizn Work Phone: [facility] Work Phone: 07-31-2022 11:55-0500 SaO2% (BldA) [Mass fraction] 96 % Dr. Geoff Sainz Work Phone: [facility] Work Phone: 07-31-2022 11:55-0500 Systolic blood pressure 106 mm[Hg] Dr. Geoff Sainz Work Phone: [facility] Work Phone: 07-31-2022 09:18-0500 Body mass index (BMI) [Ratio] 33 kg/m2 Dr. Geoff Sainz Work Phone: [facility] Work Phone: 07-31-2022 09:18-0500 Body temperature 98.9 [degF] Dr. Geoff Sainz Work Phone: [facility] Work Phone: 07-31-2022 09:18-0500 Body weight 113.[address] Geoff Sainz Work Phone: [facility] Work Phone: 07-25-2022 15:40-0500 Body mass index (BMI) [Ratio] 33.2 kg/m2 Dr. Geoff Sainz Work Phone: [facility] Work Phone: 07-25-2022 15:40-0500 Body temperature 98.9 [degF] Dr. Geoff Sainz Work Phone: [facility] Work Phone: 07-25-2022 15:40-0500 Body weight 114.[address] Geoff Sainz Work Phone: [facility] Work Phone: 07-25-2022 15:40-0500 Diastolic blood pressure 81 mm[Hg] Dr. Geoff Sainz Work Phone: [facility] Work Phone: 07-25-2022 15:40-0500 Heart rate 97 /min Dr. Geoff Sainz Work Phone: [facility] Work Phone: 07-25-2022 15:40-0500 Respiratory rate 16 /min Dr. Geoff Sainz Work Phone: [facility] Work Phone: 07-25-2022 15:40-0500 SaO2% (BldA) [Mass fraction] 97 % Dr. Geoff Sainz Work Phone: [facility] Work Phone: 07-25-2022 15:40-0500 Systolic blood pressure 130 mm[Hg] Dr. Geoff Sainz Work Phone: [facility] Work Phone: 07-25-2022 14:40-0500 Body mass index (BMI) [Ratio] 33.3 kg/m2 Dr. Geoff Sainz Work Phone: [facility] Work Phone: 07-25-2022 14:40-0500 Body weight 114.[address] Geoff Sainz Work Phone: [facility] Work Phone: 07-25-2022 14:40-0500 Diastolic blood pressure 70 mm[Hg] Dr. Geoff Sainz Work Phone: [facility] Work Phone: 07-25-2022 14:40-0500 Heart rate 100 /min Dr. Geoff Sainz Work Phone: [facility] Work Phone: 07-25-2022 14:40-0500 Respiratory rate 18 /min Dr. Geoff Sainz Work Phone: [facility] Work Phone: 07-25-2022 14:40-0500 Systolic blood pressure 128 mm[Hg] Dr. Geoff Sainz Work Phone: [facility] Work Phone: 05-08-2017 16:29-0400 BMI (Body Mass Index) 34.17 kg/m2 [facility] Work Phone: 05-08-2017 16:29-0400 BP Diastolic 74 mm[Hg] [facility] Work Phone: 05-08-2017 16:29-0400 BP Systolic 128 mm[Hg] [facility] Work Phone: 05-08-2017 16:29-0400 Height 180.34 cm [facility] Work Phone: 05-08-2017 16:29-0400 Pulse (Heart Rate) 80 /min [facility] Work Phone: 05-08-2017 16:29-0400 Respiratory Rate 18 /min [facility] Work Phone: 05-08-2017 16:29-0400 Weight 111.13 kg [facility] Work Phone: 04-17-2017 05:58-0400 Body surface area Derived from formula 78.28 mL/min Katiesuad Otty [facility] Work Phone: 11-02-2016 11:38-0500 Heart rate 70 /min [facility] Work Phone: 11-02-2016 11:29-0500 BMI (Body Mass Index) 35.03 kg/m2 [facility] Work Phone: 11-02-2016 11:29-0500 BP Diastolic 84 mm[Hg] [facility] Work Phone: 11-02-2016 11:29-0500 BP Systolic 130 mm[Hg] [facility] Work Phone: 11-02-2016 11:29-0500 BSA (Body Surface Area) 2.33 m2 [facility] Work Phone: 11-02-2016 11:29-0500 Pulse (Heart Rate) 70 /min [facility] Work Phone: 11-02-2016 11:29-0500 Respiratory Rate 16 /min [facility] Orthopa[facility] Work Phone: 11-02-2016 11:29-0500 Weight 113.94 kg Merged with [facility] Work Phone: 02-24-2016 10:23-0400 Body surface area Derived from formula 92.48 mL/min [facility] Work Phone: 07-22-2014 15:29-0500 Height 180.34 cm Merged with [facility] Work Phone: Encounters Encounter Date Encounter Type Care Provider Facility Start: 03-05-2025 End: 03-05-2025 Refill Deena Francois MD Work Phone: Cardiology Comment on above: Refill Request Start: 12-24-2024 End: 12-24-2024 ambulatory Abdiel Matehws Facility:[facility] Start: 12-10-2024 End: 12-10-2024 ambulatory Abdiel Mathews [facility]ER[facility]C Work Phone: [facility] Work Phone: Start: 12-10-2024 End: 12-10-2024 Discharged Recurring Abdiel Mathews [facility]ICA P[facility]ER-C -Physical Therapy Work Phone: Start: 09-07-2024 End: 09-07-2024 Patient encounter procedure Abdiel Mathews MICA PATCHER-C -Radiology, [facility] Work Phone: Start: 09-07-2024 End: 09-07-2024 ambulatory Abdielbird Mathews Facility:[facility] Start: 08-19-2024 End: 08-19-2024 ambulatory DEENA FRANCOIS Facility:[facility] Start: 08-19-2024 End: 08-19-2024 Patient encounter procedure Harriet Hogan [facility] Work Phone: [facility] Comment on above: HOCM (hypertrophic o bstructive cardiomyopathy) (HCC) Start: 06-24-2024 End: 06-24-2024 Patient encounter procedure Edmund Kamara MD Work Phone: Cardiology Comment on above: HOCM (hypertrophic o bstructive cardiomyopathy) (HCC); NSVT (nonsustained ventricular tachycardia) (HCC) Start: 06-24-2024 End: 06-24-2024 ambulatory ABDIEL BISI Facility:[facility] Start: 06-22-2024 End: 06-22-2024 Orders Only Edmund Kamara MD Work Phone: Cardiology Comment on above: NSVT (nonsustained v entricular tachycardia) (HCC) (Primary Dx); HOCM (hypertrophic obstructive cardiomyopathy) (HCC) Start: 06-08-2024 End: 06-08-2024 Telephone encounter Deena Francois MD Work Phone: Cardiology Start: 05-05-2024 End: 05-05-2024 Telephone encounter Deena Francois MD Work Phone: Cardiology Comment on above: fax confirmation Start: 05-04-2024 End: 05-04-2024 [facility] Facility:[facility] Start: 05-04-2024 Encounter for preprocedural cardiovascular examination DEENA FRANCOIS [facility] Start: 04-30-2024 End: 04-30-2024 Telephone encounter Deena Francois MD Work Phone: Cardiology Comment on above: HOCM (hypertrophic o bstructive cardiomyopathy) (HCC) (Primary Dx) Start: 04-28-2024 [facility] Facility:[facility] Start: 04-28-2024 End: 04-28-2024 Subsequent hospital visit by physician [facility] Work Phone: Cardiology Lab Comment on above: HOCM (hypertrophic o bstructive cardiomyopathy) (HCC) [I42.1] Start: 04-28-2024 End: 04-29-2024 [facility] Facility:[facility] Start: 04-27-2024 End: 04-27-2024 Telephone encounter Marita Rodriguez RN Cardiology Lab Comment on above: Reminder Call Start: 04-23-2024 End: 05-06-2024 Refill Edmund Allen MD Work Phone: Cardiology Comment on above: Refill Request Start: 04-20-2024 Telephone encounter Deena Francois MD Work Phone: Cardiology Comment on above: Patient Update Start: 04-01-2024 Telephone encounter Deena Francois MD Work Phone: Cardiology Start: 03-25-2024 End: 03-25-2024 [facility] Facility:[facility] Start: 03-25-2024 End: 03-25-2024 Patient encounter procedure Deena Francois MD Work Phone: Cardiology Comment on above: Primary hypertension (Primary Dx); Aortic root dilation (HCC); Encounter for preprocedural cardiovascular examination; History of aortic valve replacement Start: 03-25-2024 End: 03-25-2024 Patient encounter status Deena Francois MD Work Phone: [facility] Start: 03-25-2024 End: 03-25-2024 [facility] Facility:[facility] Start: 03-18-2024 Refill Deena Francois MD Work Phone: Cardiology Comment on above: Refill Request Start: 03-12-2024 Refill Deena Francois MD Work Phone: Cardiology Comment on above: Refill Request Start: 02-08-2024 Orders Only Deena Francois MD Work Phone: Cardiology Comment on above: HOCM (hypertrophic o bstructive cardiomyopathy) (HCC) (Primary Dx) Start: 01-08-2024 End: 01-08-2024 [facility] DEENA FRANCOIS Facility:[facility] Start: 01-08-2024 End: 01-08-2024 Patient encounter procedure Deena Francois MD Work Phone: Cardiology Comment on above: Essential hypertensi on (Primary Dx); S/P AVR (aortic valve replacement) and aortoplasty; Chronic heart failure with preserved ejection fraction (HCC); HOCM (hypertrophic obstructive cardiomyopathy) (HCC) Start: 01-08-2024 End: 01-08-2024 [facility] DEENA FRANCOIS Facility:[facility] Start: 01-08-2024 End: 01-08-2024 Subsequent hospital visit by physician Florence Ramachandran (I-Stat) Work Phone: Radiology Comment on above: Vasculopathy [I99.9] Start: 01-01-2024 End: 01-01-2024 [facility] Facility:[facility] Start: 01-01-2024 End: 01-01-2024 Patient encounter procedure Card Rehab Phase 2 [place] Work Phone: [facility] Cardiac Rehab Comment on above: S/P AVR (aortic valv e replacement) (Primary Dx) Start: 12-30-2023 End: 12-30-2023 [facility] Start: 12-30-2023 End: 12-30-2023 Patient encounter procedure Card Rehab Phase 2 [place] Work Phone: [facility] Card[facility] Re[facility] Comment on above: S/P AVR (aortic valv e replacement) (Primary Dx) Start: 12-27-2023 End: 12-27-2023 [facility] Start: 12-27-2023 End: 12-27-2023 Patient encounter procedure Card Rehab Phase 2 [place] Work Phone: [facility] Cardiac Rehab Comment on above: S/P AVR (aortic valv e replacement) (Primary Dx) Start: 12-25-2023 End: 12-25-2023 [facility] Start: 12-25-2023 End: 12-25-2023 Patient encounter procedure Card Rehab Phase 2 [place] Work Phone: [facility] Cardiac Rehab Comment on above: S/P AVR (aortic valv e replacement) (Primary Dx) Start: 12-23-2023 End: 12-23-2023 [facility] Start: 12-23-2023 End: 12-23-2023 Patient encounter procedure Card Rehab Phase 2 [place] Work Phone: [facility] Cardiac Rehab Comment on above: S/P AVR (aortic valv e replacement) (Primary Dx) Start: 12-20-2023 End: 12-20-2023 [facility] Start: 12-20-2023 End: 12-20-2023 Patient encounter procedure Card Rehab Phase 2 [place] Work Phone: [facility] Cardiac Rehab Comment on above: S/P AVR (aortic valv e replacement) (Primary Dx) Start: 12-18-2023 End: 12-18-2023 [facility] Start: 12-18-2023 End: 12-18-2023 Patient encounter procedure Card Rehab Phase 2 [place] Work Phone: [facility] Card[facility] Re[facility] Comment on above: S/P AVR (aortic valv e replacement) (Primary Dx) Start: 12-16-2023 End: 12-16-2023 [facility] Start: 12-16-2023 End: 12-16-2023 Patient encounter procedure Card Rehab Phase 2 [place] Work Phone: [facility] Card[facility] Re[facility] Comment on above: S/P AVR (aortic valv e replacement) (Primary Dx) Start: 12-13-2023 End: 12-13-2023 [facility] Start: 12-13-2023 End: 12-13-2023 Patient encounter procedure Card Rehab Phase 2 [place] Work Phone: [facility] Card[facility] Re[facility] Comment on above: S/P AVR (aortic valv e replacement) (Primary Dx) Start: 12-11-2023 End: 12-11-2023 [facility] Start: 12-11-2023 End: 12-11-2023 Patient encounter procedure Card Rehab Phase 2 [place] Work Phone: [facility] Comment on above: S/P AVR (aortic valv e replacement) (Primary Dx) Start: 12-09-2023 End: 12-09-2023 [facility] Start: 12-09-2023 End: 12-09-2023 Patient encounter procedure Card Rehab Phase 2 [place] Work Phone: [facility] Comment on above: S/P AVR (aortic valv e replacement) (Primary Dx) Start: 12-06-2023 End: 12-06-2023 [facility] Start: 12-04-2023 End: 12-04-2023 [facility] Start: 12-04-2023 End: 12-04-2023 Patient encounter procedure Card Rehab Phase 2 [place] Work Phone: [facility] Comment on above: S/P AVR (aortic valv e replacement) (Primary Dx) Start: 12-02-2023 End: 12-02-2023 [facility] Start: 12-02-2023 End: 12-02-2023 Patient encounter procedure Card Rehab Phase 2 [place] Work Phone: [facility] Comment on above: S/P AVR (aortic valv e replacement) (Primary Dx) Start: 11-29-2023 End: 11-29-2023 [facility] Start: 11-29-2023 End: 11-29-2023 Patient encounter procedure Card Rehab Phase 2 [place] Work Phone: [facility] Comment on above: S/P AVR (aortic valv e replacement) (Primary Dx) Start: 11-27-2023 End: 11-27-2023 [facility] Start: 11-27-2023 End: 11-27-2023 Patient encounter procedure Card Rehab Phase 2 [place] [employer] Phone: [facility] Comment on above: S/P AVR (aortic valv e replacement) (Primary Dx) Start: 11-25-2023 End: 11-25-2023 [facility] Start: 11-25-2023 End: 11-25-2023 Patient encounter procedure Card Rehab Phase 2 [place] Work Phone: [facility] Comment on above: S/P AVR (aortic valv e replacement) (Primary Dx) Start: 11-22-2023 End: 11-22-2023 [facility] Start: 11-22-2023 End: 11-22-2023 Patient encounter procedure Card Rehab Phase 2 [place] Work Phone: [facility] Comment on above: S/P AVR (Primary Dx) Start: 11-20-2023 End: 11-20-2023 [facility] Start: 11-20-2023 End: 11-20-2023 Patient encounter procedure Card Rehab Phase 2 [place] Work Phone: [facility] Comment on above: S/P AVR (aortic valv e replacement) (Primary Dx) Start: 11-18-2023 End: 11-18-2023 [facility] Start: 11-18-2023 End: 11-18-2023 Patient encounter procedure Card Rehab Phase 2 [place] Work Phone: [facility] Comment on above: S/P AVR (aortic valv e replacement) (Primary Dx) Start: 11-15-2023 End: 11-15-2023 [facility] Start: 11-15-2023 End: 11-15-2023 Patient encounter procedure Card Rehab Phase 2 [place] Work Phone: [facility] Comment on above: S/P AVR (aortic valv e replacement) (Primary Dx) Start: 11-13-2023 End: 11-13-2023 [facility] Start: 11-13-2023 End: 11-13-2023 Patient encounter procedure Card Rehab Phase 2 [facility] Phone: [facility] Card[facility] Comment on above: S/P AVR (aortic valv e replacement) (Primary Dx) Start: 11-11-2023 End: 11-11-2023 [facility] Start: 11-11-2023 End: 11-11-2023 Patient encounter procedure Card Rehab Phase 2 [place] Work Phone: [facility] Comment on above: S/P AVR (aortic valv e replacement) (Primary Dx) Start: 11-08-2023 End: 11-08-2023 [facility] Start: 11-08-2023 End: 11-08-2023 Patient encounter procedure Card Rehab Phase 2 [facility] Phone: [facility] Card[facility] Comment on above: S/P AVR (aortic valv e replacement) (Primary Dx) Start: 11-06-2023 End: 11-06-2023 ambulatory [facility] Start: 11-06-2023 End: 11-06-2023 Patient encounter procedure Card Rehab Phase 2 [facility] Phone: [facility] Comment on above: S/P AVR (aortic valv e replacement) (Primary Dx) Start: 11-04-2023 End: 11-04-2023 ambulatory [facility] Start: 11-01-2023 End: 11-01-2023 [facility] Start: 11-01-2023 End: 11-01-2023 Patient encounter procedure Card Rehab Phase 2 [facility] Phone: [facility] Card[facility] Re[facility] Comment on above: S/P AVR (aortic valv e replacement) (Primary Dx) Start: 10-30-2023 End: 10-30-2023 ambulatory Cass Mari RN [facility] Start: 10-30-2023 End: 10-30-2023 Patient encounter procedure Card Rehab Phase 2 [facility] Phone: [facility] Comment on above: S/P AVR (aortic valv e replacement) (Primary Dx) Start: 10-28-2023 End: 10-28-2023 [facility] Start: 10-28-2023 End: 10-28-2023 Patient encounter procedure Card Rehab Phase 2 [facility] Phone: [facility] Card[facility] Re[facility] Comment on above: S/P AVR (aortic valv e replacement) (Primary Dx) Start: 10-25-2023 End: 10-25-2023 ambulatory [facility] Start: 10-25-2023 End: 10-25-2023 Patient encounter procedure Card Rehab Phase 2 [place] Work Phone: [facility] Card[facility] Re[facility] Comment on above: S/P AVR (aortic valv e replacement) (Primary Dx) Start: 10-23-2023 End: 10-23-2023 ambulatory DEENA MARISOLCOUNTS INCLUDE [facility]EDS AT [facility] Facility:[facility] Start: 10-23-2023 End: 10-23-2023 Patient encounter procedure Card Rehab Phase 2 [place] Work Phone: [facility] Card[facility] Re[facility] Comment on above: S/P AVR (aortic valv e replacement) (Primary Dx) Start: 10-21-2023 End: 10-21-2023 [facility] Start: 10-21-2023 End: 10-21-2023 Patient encounter procedure Card Rehab Phase 2 [facility] Phone: [facility] Card[facility] Comment on above: S/P AVR (aortic valv e replacement) (Primary Dx) Start: 10-18-2023 End: 10-18-2023 [facility] Start: 10-18-2023 End: 10-18-2023 Patient encounter procedure Card Rehab Phase 2 [facility] Phone: [facility] Card[facility] Re[facility] Comment on above: S/P AVR (aortic valv e replacement) (Primary Dx) Start: 10-16-2023 End: 10-16-2023 [facility] Start: 10-16-2023 End: 10-16-2023 Patient encounter procedure Card Rehab Phase 2 [facility] Phone: [facility] Card[facility] Rehab Comment on above: S/P AVR (aortic valv e replacement) (Primary Dx) Start: 10-14-2023 End: 10-14-2023 [facility] Start: 10-14-2023 End: 10-14-2023 Patient encounter procedure Card Rehab Phase 2 [facility] Phone: [facility] Card[facility] Re[facility] Comment on above: S/P AVR (aortic valv e replacement) (Primary Dx) Start: 10-11-2023 End: 10-11-2023 [facility] Start: 10-11-2023 End: 10-11-2023 Patient encounter procedure Card Rehab Phase 2 [place] Work Phone: [facility] Card[facility] Re[facility] Comment on above: S/P AVR (aortic valv e replacement) (Primary Dx) Start: 10-09-2023 End: 10-09-2023 [facility] Facility:[facility] Start: 09-18-2023 End: 09-18-2023 ambulatory DEENA FRANCOIS Facility:[facility] Start: 09-18-2023 End: 09-18-2023 Patient encounter procedure Deena Franocis MD Work Phone: Cardiology Comment on above: Hypertrophic cardiom yopathy (HCC) (Primary Dx); Aortic root dilatation (HCC); Angina pectoris (HCC); Obesity, Class I, BMI 30-34.9; Vasculopathy; Adverse effect of treatment, initial encounter; S/P AVR (aortic valve replacement) and aortoplasty Start: 09-18-2023 End: 09-18-2023 [facility] Facility:[facility] Start: 08-12-2023 Telephone encounter Teresa Aguirre N AMBULATORY NURSING A16 Comment on above: Follow Up Phone Call ( follow up call all clear. /) Start: 08-08-2023 End: 08-08-2023 Patient encounter procedure Justo Mehta APRN.CNP Work Phone: Cardiothoracic Comment on above: S/P AVR (aortic valv e replacement) (Primary Dx); S/P ascending aortic aneurysm repair Start: 08-08-2023 End: 08-08-2023 Subsequent hospital visit by physician Xr Chest Main J1 Work Phone: Radiology Comment on above: Surgery follow-up [Z 09] Start: 08-03-2023 Orders Only Deena Francois MD Work Phone: Cardiology Comment on above: Nonrheumatic aortic valve stenosis (Primary Dx); Primary hypertension Start: 08-02-2023 Follow-up encounter Usha carr MD Work Phone: Cardiothoracic Comment on above: Surgery follow-up (P rimary Dx) Start: 07-25-2023 ambulatory Usha sarah MD Work Phone: Cardiothoracic Comment on above: Patient Education Start: 07-25-2023 End: 07-25-2023 Preprocedural examination done [facility] Work Phone: [facility] Start: 07-25-2023 End: 07-25-2023 Patient encounter status Usha Navarro MD Work Phone: [facility] Start: 07-25-2023 End: 07-25-2023 Admission to same day surgery center Anesthesia Clearance Work Phone: [facility] Work Phone: Start: 07-25-2023 End: 07-25-2023 Patient encounter procedure Usha Navarro MD Work Phone: Cardiothoracic Comment on above: Nonrheumatic aortic valve stenosis; Pre-operative cardiovascular examination; Aortic valve disorder; Hypertrophic cardiomyopathy (HCC) Pre-op exam (Primary Dx) Encounter for preope rative anesthesiology assessment for cardiac surgery (Primary Dx) Start: 07-24-2023 End: 07-24-2023 Patient encounter status [facility] Start: 07-24-2023 End: 07-24-2023 Subsequent hospital visit by physician Gissel Main J (I-Stat/1.5t) MRI J Comment on above: Nonrheumatic aortic valve stenosis [I35.0] Start: 07-24-2023 End: 07-24-2023 Patient encounter procedure Deena Francois MD Work Phone: Cardiology Comment on above: Nonrheumatic aortic valve stenosis; Pre-operative cardiovascular examination; Aortic valve disorder; Hypertrophic cardiomyopathy (HCC); Aortic root dilatation (HCC); Angina pectoris (HCC) Start: 07-24-2023 End: 07-24-2023 Patient encounter status Deena Francois MD Work Phone: [facility] Work Phone: Start: 07-24-2023 End: 07-24-2023 ambulatory Pulm J-1 Pulmonary Medicine Comment on above: Spirometry Start: 07-24-2023 End: 07-24-2023 Patient encounter procedure Pulm Fct Lab J-1 [facility] Start: 07-24-2023 End: 07-24-2023 Patient encounter status Pulm J-[facility] Start: 07-23-2023 Orders Only Tip Warner MD Work Phone: Cardiology Comment on above: Aortic valve disorde r (Primary Dx) Start: 07-22-2023 ambulatory Celeste Ni Research Coordinator [facility] Start: 07-10-2023 Telephone encounter Robert jiménez RN Work Phone: Case Management Comment on above: Core Checker - O ther (Care Continuum Advisor Assessment ) Start: 06-10-2023 End: 06-10-2023 Admission to same day surgery center Dr. Geoff Sainz [facility]/Special Procedures Work Phone: Start: 06-10-2023 End: 06-10-[address] Geoff Sainz [facility] Work Phone: Start: 05-30-2023 Non-patient / Non-visit Dr. Geoff shetty [facility] Start: 05-21-2023 End: 05-21-[address] Geoff Sainz [facility] Work Phone: Start: 05-21-2023 End: 05-21-[address] Geoff Sainz [facility] Work Phone: Start: 05-09-2023 End: 05-09-[address] Geoff Sainz Work Phone: [facility] Work Phone: Start: 05-09-2023 End: 05-09-[address] Geoff Sainz Work Phone: [facility]Nuclear [facility], [facility] Work Phone: Start: 04-30-2023 End: 04-30-[address] Geoff Sainz Work Phone: [facility] Work Phone: Start: 01-15-2023 End: 01-15-[address] Geoff Sainz Work Phone: [facility] Work Phone: Start: 12-21-2022 ambulatory SINGH RUIZ ) BARRIENTOS Facility:[facility] Start: 12-21-2022 End: 12-21-2022 Subsequent hospital visit by physician Mri [facility] (I-Stat/Lg Bore/1.5t) [facility] Comment on above: I35.0 Start: 12-07-2022 Telephone encounter Charlotte Garcia RT(R ) [facility] Comment on above: Orders Start: 08-06-2022 End: 08-06-[address] Geoff Sainz Work Phone: [facility] Work Phone: Start: 08-06-2022 End: 08-06-[address] Geoff Sainz Work Phone: [facility]Laboratory, Specimen Start: 08-06-2022 End: 08-06-[address] Geoff Sainz Work Phone: [facility] Start: 07-31-2022 End: 07-31-[address] Geoff Sainz Work Phone: [facility] Work Phone: Start: 07-31-2022 End: 07-31-[address] Geoff Sainz Work Phone: [facility]-Cat Scan, [facility] Start: 07-25-[address] Geoff Sainz Work Phone: [facility] Start: 07-25-2022 End: 07-25-[address] Geoff Sainz Work Phone: [facility] Start: 07-25-2022 End: 07-25-[address] Geoff aSinz Work Phone: [facility] Start: 07-17-2022 Non-patient / Non-visit Dr. Adrián Sainz Work Phone: [facility] Start: 07-17-2022 End: 07-17-[address] Geoff Sainz Work Phone: [facility] Work Phone: Start: 07-17-2022 End: 07-17-[address] Geoff Sainz Work Phone: [facility]Cardi[facility] Start: 04-23-2022 End: 04-23-2022 Patient encounter procedure [facility] Procedures Date Procedure Procedure Detail Performing Clinician Start: 09-07-2024 Plain X-ray of shoulder Abdiel Mathews MICA PATCHER-C Work Phone: Start: 04-28-2024 Echo tthrc r-t 2d w/ wo m-mode complete rest&st Deena Francois MD Work Phone: Start: 01-08-2024 Creatinine [Mass/vol ume] in Serum or Plasma [facility] Provider Start: 08-08-2023 Radiologic exam chest 2 views Usha Navarro MD Work Phone: Start: 08-08-2023 Lipid 1996 panel - S amira or Plasma Justo Mehta COMMODITY DIRECTOR.ELECTRONIC COMPONENT PROCESSOR Work Phone: Start: 07-25-2023 Iadna s aureus ampli fied probe tq Usha Navarro MD Work Phone: Start: 07-24-2023 Co diffusing capacity L stephanie Navarro MD Work Phone: Start: 05-31-2023 Plain chest X-ray Dr. Cortez Sainz Start: 05-09-2023 Rad[address] localiz ation of tumor Dr. Geoff Sainz Work Phone: Start: 07-31-2022 Biopsy/Inj or Needle Placement Dr. Geoff Sainz Work Phone: Start: 05-08-2017 End: 05-08-2017 Dietary management education, guidance, and counseling Catherine Franklin Start: 05-08-2017 End: 05-08-2017 Follow Up Appt 6 months Alen Phillips MD Start: 05-08-2017 End: 05-08-2017 MMM Alen Phillips MD Start: 04-17-2017 Lipid 1996 panel - S amira or Plasma Robert Arora RN Work Phone: Start: 04-17-2017 End: 04-17-2017 *Hepatic Function Panel Alen Phillips MD Start: 04-17-2017 End: 04-17-2017 Lipid panel [AGGREGATE] Alen Phillips MD Start: 04-15-2017 End: 04-15-2017 Dietary management education, guidance, and counseling Ann Solis Start: 11-02-2016 End: 11-14-2016 Echocardiography Singh Barrientos PA-C Work Phone: Start: 11-02-2016 End: 11-02-2016 Follow Up Appt 6 months Singh buitrago PA-C Work Phone: Start: 11-02-2016 End: 11-02-2016 PFM Singh Barrientos PA-C Work Phone: Start: 10-10-2016 End: 10-22-2016 *Hepatic Function Panel Singh buitrago PA-C Work Phone: Start: 10-10-2016 End: 10-22-2016 Lipid panel [AGGREGATE] Singh buitrago PA-C Work Phone: Start: 04-12-2016 End: 04-12-2016 Follow Up Appt 6 months Alen Phillips MD Start: 04-12-2016 End: 04-12-2016 RODNEY Phillips MD Start: 02-27-2016 End: 02-27-2016 *Hepatic Function Panel Singh buitrago PA-C Work Phone: Start: 02-27-2016 End: 02-27-2016 Lipid panel [AGGREGATE] Singh buitrago PA-C Work Phone: Start: 01-23-2016 End: 02-27-2016 Mri joint upr extrem w/o dye Ann barragan Work Phone: Start: 01-23-2016 End: 02-27-2016 X-ray exam of shoulder Ann Solis Work Phone: Start: 10-10-2015 End: 02-27-2016 Follow Up Appt 6 months Singh buitrago PA-C Work Phone: Start: 10-10-2015 End: 02-27-2016 PFM Singh Barrientos PA-C Work Phone: Start: 09-27-2015 End: 09-27-2015 *Hepatic Function Panel Singh buitrago PA-C Work Phone: Start: 09-27-2015 End: 09-27-2015 Lipid panel [AGGREGATE] Singh buitrago PA-C Work Phone: Start: 04-11-2015 End: 04-12-2015 Documentation of current medications Alen Phillips MD Start: 04-11-2015 End: 04-11-2015 Follow Up Appt 6 months Alen Phillips MD Start: 04-11-2015 End: 04-11-2015 RODNEY Phillips MD Start: 03-14-2015 End: 03-28-2015 *Hepatic Function Panel Alen Phillips MD Start: 03-14-2015 End: 03-28-2015 Lipid panel [AGGREGATE] Alen Phillips MD Start: 09-07-2014 End: 09-07-2014 Follow Up Appt 6 months Singh buitrago PA-C Work Phone: Start: 09-07-2014 End: 09-07-2014 Follow Up Appt Other Singh light PA-C Work Phone: Start: 09-07-2014 End: 09-07-2014 PFM Singh Barrientos PA-C Work Phone: Start: 09-06-2014 End: 09-14-2014 *Hepatic Function Panel Alen Phillips MD Start: 09-06-2014 End: 09-14-2014 Lipid panel [AGGREGATE] Alen Phillips MD Start: 07-26-2014 End: 09-26-2015 Transesophageal echocardiogram (RAGINI) Alen Phillips MD Start: 07-22-2014 End: 09-26-2015 *BMP Alen Phillips MD Start: 07-22-2014 End: 09-26-2015 *CBC with Differential Alen Phillips MD Start: 07-22-2014 End: 09-26-2015 aPTT Alen Phillips MD Start: 07-22-2014 End: 08-13-2014 Chest x-ray Alen Phillips MD Start: 07-22-2014 End: 09-26-2015 Coagulation factor induced.INR assay in platelet poor plasma Alen Phillips MD Start: 07-22-2014 End: 08-13-2014 Echocardiography Alen Phillips MD Start: 07-22-2014 End: 07-22-2014 Follow Up Appt 6 weeks Alen Phillips MD Start: 07-22-2014 End: 09-26-2015 Follow Up Appt Other Alen Phillips MD Start: 07-22-2014 End: 08-13-2014 Left Heart Cath Alen Phillips MD Start: 07-22-2014 End: 07-22-2014 MMM Alen Phillips MD Start: 04-09-2011 Colonoscopy Charlotte mora RT(R) Plan of Treatment Date Care Activity Detail Author Start: 08-08-2028 Lipid 1996 panel - Serum or Plasma Lipid Screening [facility] Start: 08-08-2028 Lipid panel Lipid Screening [facility] Start: 05-04-2027 Diabetes Screening Diabetes Screening [facility] Start: 05-04-2027 Screening for malignant neoplasm of colon Cologuard (FIT-DNA) [facility] Start: 08-08-2026 Diabetes Screening Diabetes Screening [facility] Start: 08-03-2026 Diabetes Screening Diabetes Screening [facility] Start: 08-02-2026 Diabetes Screening Diabetes Screening [facility] Start: 07-24-2026 Diabetes Screening Diabetes Screening [facility] Start: 05-26-2025 End: 05-26-2025 ambulatory 05/26/2025 12:30 PM EDT Procedure Cardiology [address] [place] [address] DX: Aortic root dilation [I77.810 (ICD-10-CM)]; History of aortic valve replacement Cardiology Comment on above: DX: Aortic root dilation [I77.810 (ICD-1 0-CM)]; History of aortic valve replacement Start: 05-26-2025 End: 05-26-2025 Patient encounter procedure Vascular Medicine Comment on above: DX: Aortic root dilation [I77.810 (ICD-1 0-CM)]; History of aortic valve replacement Start: 05-10-2025 Influenza vaccination Influenza Vaccine (Season Ended) [facility] Start: 12-01-2024 BP Controlled (<130/80) BP Controlled (<130/80) [facility] Start: 11-04-2024 BP Controlled (<130/80) BP Controlled (<130/80) [facility] Start: 09-09-2024 Advance Directive Discussion Advance Directive Discussion [facility] Start: 09-09-2024 Medicare Advantage Annual Wellness Visit Medicare Advantage Annual Wellness Visit [facility] Start: 08-19-2024 End: 08-19-2024 Patient encounter procedure 08/19/2024 10:00 AM EST Office Visit [facility] [address] [place] [address] Harriet Hogan [facility] [address] [place] [address] consult [facility] Comment on above: consult Start: 06-24-2024 End: 06-24-2024 Patient encounter procedure 06/24/2024 1:30 PM EDT Office Visit Cardiology [address] [place] [address] Edmund Kamara MD [address] [place], [place] [id number] HOCM (hypertrophic obstructive cardiomyopathy) (HCC) [I42.1] Cardiology Comment on above: HOCM (hypertrophic obstructive cardiomyo uzma) (HCC) [I42.1] Start: 06-24-2024 End: 06-24-2024 ambulatory 06/24/2024 1:00 PM EDT Results Only Cardiology [address] [place] [address] EKG Cardiology Comment on above: EKG Start: 05-10-2024 Covid-19 Vaccine ( season) Covid-19 Vaccine ( season) [facility] Start: 05-10-2024 Influenza vaccination [facility] Start: 05-05-2024 Screening for malignant neoplasm of colon Colorectal Cancer Screening [facility] Start: 04-28-2024 End: 04-28-2024 Patient encounter procedure 04/28/2024 12:00 PM EDT Appointment Cardiology Lab [facility] [place] [address] HOCM (hypertrophic obstructive cardiomyopathy) (HCC) [I42.1] Cardiology Lab Comment on above: HOCM (hypertrophic obstructive cardiomyo uzma) (HCC) [I42.1] Start: 04-28-2024 Subsequent hospital visit by physician 04/28/2024 12:00 PM EDT Hospital Encounter Cardiology Lab [address] [place] [address] HOCM (hypertrophic obstructive cardiomyopathy) (HCC) [I42.1] Cardiology Lab Comment on above: HOCM (hypertrophic obstructive cardiomyo uzma) (HCC) [I42.1] Start: 04-02-2024 Screening for malignant neoplasm of colon Cologuard (FIT-DNA) [facility] Start: 03-25-2024 End: 03-25-2024 Patient encounter procedure 03/25/2024 2:45 PM EDT Office Visit Cardiology [address] [place] [address] Deena Francois MD [address] [place] [address] Essential hypertension [I10] Cardiology Comment on above: Essential hypertension [I10] Start: 03-25-2024 End: 06-24-2024 CREATININE BLD CREATININE BLD Lab Routine History of aortic valve replacement Expected: 03/25/2024, Expires: 06/24/2024 [facility] Comment on above: Expected: 03/25/2024, Expires: Start: 03-25-2024 End: 03-25-2024 Patient encounter procedure 03/25/2024 1:30 PM EDT Office Visit Cardiology [address] [place] [address] Essential hypertension [I10] Cardiology Comment on above: Essential hypertension [I10] Start: 03-25-2024 End: 03-25-2024 ambulatory 03/25/2024 1:00 PM EDT Results Only Cardiology [address] [place] [address] Essential hypertension [I10] Cardiology Comment on above: Essential hypertension [I10] Start: 01-08-2024 End: 01-08-2024 Patient encounter procedure 01/08/2024 3:15 PM EDT Office Visit Cardiology [address] [place] [address] Deena Francois MD [address] [place] [address] Hypertrophic cardiomyopathy (HCC) [I42.2] Cardiology Comment on above: Hypertrophic cardiomyopathy (HCC) [I42.2 ] Start: 01-08-2024 End: 01-08-2024 Patient encounter procedure Radiology Comment on above: Hypertrophic cardiomyopathy (HCC) [I42.2 ] Start: 12-18-2023 End: 10-17-2024 Ct angiography chest w/contrast/noncontrast CTA CHEST (GATED) W IVCON Radiology Routine Vasculopathy Adverse effect of treatment, initial encounter Expected: 12/18/2023, Expires: 10/17/2024 [facility] Work Phone: Comment on above: Expected: 12/18/2023, Expires: Start: 12-18-2023 End: 09-18-2024 Echocardiography ECHO Cardiology Routine Hypertrophic cardiomyopathy (HCC) S/P AVR (aortic valve replacement) and aortoplasty Expected: 12/18/2023, Expires: 09/18/2024 [facility] Work Phone: Comment on above: Expected: 12/18/2023, Expires: 5 Start: 09-09-2023 Advance Directive Discussion Advance Directive Discussion [facility] Start: 09-09-2023 Behavioral Health Screening Behavioral Health Screening [facility] Start: 09-09-2023 Depression Assessment Depression Assessment [facility] Start: 08-03-2023 End: 11-02-2023 Basic metabolic 2000 panel - Serum or Plasma BASIC METABOLIC PNL Lab Routine Nonrheumatic aortic valve stenosis Primary hypertension Expected: 08/03/2023, Expires: 11/02/2023 [facility] Work Phone: Comment on above: Expected: 08/03/2023, Expires: Start: 08-03-2023 End: 11-02-2023 CBC panel - Blood by Automated count CBC Lab Routine Nonrheumatic aortic valve stenosis Primary hypertension Expected: 08/03/2023, Expires: 11/02/2023 [facility] Work Phone: Comment on above: Expected: 08/03/2023, Expires: 4 Start: 08-03-2023 End: 11-02-2023 Lipid 1996 panel - Serum or Plasma LIPID PANEL BASIC Lab Routine Nonrheumatic aortic valve stenosis Primary hypertension Expected: 08/03/2023, Expires: 11/02/2023 [facility] Work Phone: Comment on above: Expected: 08/03/2023, Expires: 4 Start: 08-02-2023 End: 11-01-2023 CBC panel - Blood by Automated count CBC Lab Routine Surgery follow-up Expected: 08/02/2023, Expires: 11/01/2023 [facility] Work Phone: Comment on above: Expected: 08/02/2023, Expires: 4 Start: 08-02-2023 End: 11-01-2023 Comprehensive metabolic 2000 panel - Serum or Plasma COMP METABOLIC PANEL Lab Routine Surgery follow-up Expected: 08/02/2023, Expires: 11/01/2023 [facility] Work Phone: Comment on above: Expected: 08/02/2023, Expires: 4 Start: 06-10-2023 Patient discharge [facility] Start: 05-10-2023 Covid-19 Vaccine () Covid-19 Vaccine () [facility] Start: 05-10-2023 Influenza vaccination [facility] Start: 09-09-2022 ADVANCE DIRECTIVE DISCUSSION ADVANCE DIRECTIVE DISCUSSION [facility] Start: 09-09-2022 DEPRESSION ASSESSMENT DEPRESSION ASSESSMENT [facility] Start: 07-31-2022 Diagnostic bone marrow biopsies DX BONE MARROW BIOPSIES [facility] Work Phone: Start: 07-31-2022 Catheterization of vein [facility] Work Phone: Start: 07-31-2022 Oxygen therapy [facility] Work Phone: Start: 07-31-2022 Patient discharge [facility] Work Phone: Start: 07-31-2022 Vital signs measurements [facility] Work Phone: Start: 07-25-2022 Patient referral [facility] Work Phone: Start: 05-10-2022 Influenza vaccination INFLUENZA (#1) [facility] Start: 04-17-2022 Lipid 1996 panel - Serum or Plasma Lipid Screening [facility] Start: 04-17-2022 LIPID SCREEN LIPID SCREEN [facility] Start: 04-09-2021 Colonoscopy COLONOSCOPY [facility] Start: 04-09-2021 COLORECTAL CANCER SCREENING COLORECTAL CANCER SCREENING [facility] Start: 04-09-2021 Screening for malignant neoplasm of colon [facility] Start: 02-16-2021 Urine microalbumin profile [facility] Start: 2020 Pneumococcal Vaccine: 65+ (1 - PCV) Pneumococcal Vaccine: 65+ (1 - PCV) [facility] Start: 2020 Pneumococcal Vaccine: 65+ (1 of 1 - PCV) Pneumococcal Vaccine: 65+ (1 of 1 - PCV) [facility] Start: 2020 PNEUMOCOCCAL: 65+ (1 - PCV) PNEUMOCOCCAL: 65+ (1 - PCV) [facility] Start: 11-14-2017 End: 11-14-2017 Appointment Appointment [facility] Work Phone: Start: 10-18-2017 End: 04-19-2017 *Hepatic Function Panel *Hepatic Function Panel [facility] Work Phone: Start: 10-18-2017 End: 04-19-2017 Lipid panel [AGGREGATE] *Lipid Profile CC PCP [facility] Work Phone: Start: 05-08-2017 End: 05-08-2017 Appointment Appointment [facility] Work Phone: Start: 05-08-2017 End: 05-08-2017 Follow Up Appt 6 months Follow Up Appt 6 months [facility] Work Phone: Start: 05-08-2017 End: 05-08-2017 MMM MMM [facility] Work Phone: Start: 04-29-2017 End: 04-29-2017 Appointment Appointment [facility] Work Phone: Start: 04-22-2017 End: 04-17-2017 *Hepatic Function Panel *Hepatic Function Panel [facility] Work Phone: Start: 04-22-2017 End: 04-17-2017 Lipid panel [AGGREGATE] *Lipid Profile CC PCP [facility] Medical [facility] Work Phone: Start: 04-19-2017 End: 04-19-2017 Appointment Appointment [facility] Work Phone: Start: 04-15-2017 End: 04-15-2017 Appointment Appointment [facility] Work Phone: Start: 11-02-2016 End: 11-02-2016 Echocardiography Echocardiogram (complete) [facility] Work Phone: Start: 11-02-2016 End: 11-02-2016 Follow Up Appt 6 months Follow Up Appt 6 months [facility] Work Phone: Start: 11-02-2016 End: 11-02-2016 PFM PFM [facility] Work Phone: Start: 10-10-2016 End: 04-10-2016 *Hepatic Function Panel *Hepatic Function Panel [facility] Work Phone: Start: 10-10-2016 End: 04-10-2016 Lipid panel [AGGREGATE] *Lipid Profile CC PCP [facility] Work Phone: Start: 04-12-2016 End: 04-12-2016 Follow Up Appt 6 months Follow Up Appt 6 months [facility] Work Phone: Start: 04-12-2016 End: 04-12-2016 MMM MMM [facility] Work Phone: Start: 03-27-2016 End: 02-27-2016 *Hepatic Function Panel *Hepatic Function Panel [facility] Work Phone: Start: 03-27-2016 End: 02-27-2016 Lipid panel [AGGREGATE] *Lipid Profile CC PCP [facility] Work Phone: Start: 02-18-2016 LIPID SCREEN LIPID SCREEN [facility] Start: 02-18-2016 PROSTATE CANCER SCREENING DISCUSSION PROSTATE CANCER SCREENING DISCUSSION [facility] Start: 02-18-2016 Prostate specific antigen measurement Prostate Cancer Screening Discussion [facility] Start: 01-23-2016 End: 02-27-2016 Mri joint upr extrem w/o dye MRI Joint Upper Extremity [facility] Work Phone: Start: 01-23-2016 End: 02-27-2016 X-ray exam of shoulder X-Ray, Shoulder [facility] Work Phone: Start: 10-10-2015 End: 02-27-2016 Follow Up Appt 6 months Follow Up Appt 6 months [facility] Work Phone: Start: 10-10-2015 End: 02-27-2016 PFM PFM [facility] Work Phone: Start: 09-29-2015 End: 09-27-2015 *Hepatic Function Panel *Hepatic Function Panel [facility] Work Phone: Start: 09-29-2015 End: 09-27-2015 Lipid panel [AGGREGATE] *Lipid Profile CC PCP [facility] Work Phone: Start: 2015 RSV Vaccine (1 - 1-dose 60+ series) RSV Vaccine (1 - 1-dose 60+ series) [facility] Start: 2015 RSV Vaccine (1 - Risk 60-74 years 1-dose series) RSV Vaccine (1 - Risk 60-74 years 1-dose series) [facility] Start: 04-11-2015 End: 04-11-2015 Follow Up Appt 6 months Follow Up Appt 6 months [facility] Work Phone: Start: 04-11-2015 End: 04-11-2015 MMM MMM [facility] Work Phone: Start: 03-14-2015 End: 03-28-2015 *Hepatic Function Panel *Hepatic Function Panel [facility] Work Phone: Start: 03-14-2015 End: 03-28-2015 Lipid panel [AGGREGATE] *Lipid Profile CC PCP [facility] Medical [facility] Work Phone: Start: 09-07-2014 End: 09-07-2014 Follow Up Appt 6 months Follow Up Appt 6 months [facility] Work Phone: Start: 09-07-2014 End: 09-07-2014 Follow Up Appt Other Follow Up Appt Other [facility] Work Phone: Start: 09-07-2014 End: 09-07-2014 PFM PFM [facility] Work Phone: Start: 09-06-2014 End: 09-14-2014 *Hepatic Function Panel *Hepatic Function Panel [facility] Work Phone: Start: 09-06-2014 End: 09-14-2014 Lipid panel [AGGREGATE] *Lipid Profile CC PCP [facility] Work Phone: Start: 07-26-2014 End: 07-26-2014 Transesophageal echocardiogram (RAGINI) Transesophageal echocardiogram (RAGINI) [facility] Work Phone: Start: 07-22-2014 End: 09-26-2015 *BMP *BMP [facility] Work Phone: Start: 07-22-2014 End: 09-26-2015 *CBC with Differential *CBC with Differential [facility] Medical [facility] Work Phone: Start: 07-22-2014 End: 09-26-2015 aPTT *PTT-Partial Thromboplastin Time [facility] Work Phone: Start: 07-22-2014 End: 09-26-2015 aPTT Coag time (PPP) *PTT-Partial Thromboplastin Time [facility] Work Phone: Start: 07-22-2014 End: 08-13-2014 Chest x-ray X-Ray, Chest, PA & Lateral [facility] Work Phone: Start: 07-22-2014 End: 09-26-2015 Coagulation factor induced.INR assay in platelet poor plasma *PT/INR [facility] Medicine [facility] Work Phone: Start: 07-22-2014 End: 07-22-2014 Echocardiography Echocardiogram (complete) [facility] Work Phone: Start: 07-22-2014 End: 07-22-2014 Follow Up Appt 6 weeks Follow Up Appt 6 weeks [facility] Work Phone: Start: 07-22-2014 End: 09-26-2015 Follow Up Appt Other Follow Up Appt Other [facility] Work Phone: Start: 07-22-2014 End: 07-22-2014 Left Heart Cath Left Heart Cath [facility] Work Phone: Start: 07-22-2014 End: 07-22-2014 MMM MMM [facility] Work Phone: Start: 02-17-2014 DIABETES SCREEN DIABETES SCREEN [facility] Start: 02-17-2014 Diabetes Screening Diabetes Screening [facility] Start: 2005 Pneumococcal Vaccine: 50+ (1 of 1 - PCV) Pneumococcal Vaccine: 50+ (1 of 1 - PCV) [facility] Start: 2005 SHINGRIX VACCINE (1 of 2) SHINGRIX VACCINE (1 of 2) [facility] Start: 2000 COLOGUARD (FIT-DNA) COLOGUARD (FIT-DNA) [facility] Start: [address] COLONOGRAPHY [facility] Start: 2000 FECAL OCCULT BLOOD FECAL OCCULT BLOOD [facility] Start: 2000 Screening for malignant neoplasm of colon [facility] Start: 2000 SIGMOIDOSCOPY SIGMOIDOSCOPY [facility] Start: 1973 Annual PCP Team Chronic Disease Visit Annual PCP Team Chronic Disease Visit [facility] Start: 1973 Anxiety Screening Anxiety Screening [facility] Start: 1973 BP Controlled (<130/80) BP Controlled (<130/80) [facility] Start: 1973 Depression Screening Depression Screening [facility] Start: 1973 HEPATITIS C SCREENING HEPATITIS C SCREENING [facility] Start: 1973 Hepatitis C screening Hepatitis C Screening [facility] Start: [birth year]-23-1956 COVID-19 VACCINE (#1) COVID-19 VACCINE (#1) [facility] Bone marrow biopsy, needle or trocar [facility] Work Phone: CTA Chest vessels W contrast IV CTA CHEST (GATED) W IVCON Radiology Routine Vasculopathy Adverse effect of treatment, initial encounter 01/08/2024 3:01 PM EDT [facility] Work Phone: End: 04-24-2025 CTA Chest vessels W contrast IV CTA CHEST (GATED) W IVCON Radiology Routine Encounter for preprocedural cardiovascular examination 1 Occurrences starting 03/25/2024 until 04/24/2025 [facility] Comment on above: 1 Occurrences starting 03/25/2024 until 04/24/2025 End: 08-02-2024 ECG COMPLETE ECG COMPLETE ECG Routine Surgery follow-up 1 Occurrences starting 08/02/2023 until 08/02/2024 [facility] Work Phone: Comment on above: 1 Occurrences starting 08/02/2023 until 08/02/2024 End: 08-03-2024 ECG COMPLETE ECG COMPLETE ECG Routine Nonrheumatic aortic valve stenosis Primary hypertension 1 Occurrences starting 08/03/2023 until 08/03/2024 [facility] Work Phone: Comment on above: 1 Occurrences starting 08/03/2023 until 08/03/2024 End: 01-07-2025 ECG COMPLETE ECG COMPLETE ECG Routine Essential hypertension S/P AVR (aortic valve replacement) and aortoplasty Chronic heart failure with preserved ejection fraction (HCC) HOCM (hypertrophic obstructive cardiomyopathy) (HCC) 1 Occurrences starting 01/08/2024 until 01/07/2025 [facility] Work Phone: Comment on above: 1 Occurrences starting 01/08/2024 until 01/07/2025 End: 03-25-2025 ECG COMPLETE ECG COMPLETE ECG Routine Aortic root dilation (HCC) History of aortic valve replacement 1 Occurrences starting 03/25/2024 until 03/25/2025 [facility] Work Phone: Comment on above: 1 Occurrences starting 03/25/2024 until 03/25/2025 End: 06-22-2025 ECG COMPLETE ECG COMPLETE ECG Routine NSVT (nonsustained ventricular tachycardia) (HCC) HOCM (hypertrophic obstructive cardiomyopathy) (HCC) 1 Occurrences starting 06/22/2024 until 06/22/2025 [facility] Work Phone: Comment on above: 1 Occurrences starting 06/22/2024 until 06/22/2025 End: 08-03-2024 Echocardiography ECHO Cardiology Routine Nonrheumatic aortic valve stenosis Primary hypertension 1 Occurrences starting 08/03/2023 until 08/03/2024 [facility] Work Phone: Comment on above: 1 Occurrences starting 08/03/2023 until 08/03/2024 End: 01-07-2025 Echocardiography ECHO Cardiology Routine Essential hypertension S/P AVR (aortic valve replacement) and aortoplasty Chronic heart failure with preserved ejection fraction (HCC) HOCM (hypertrophic obstructive cardiomyopathy) (HCC) 1 Occurrences starting 01/08/2024 until 01/07/2025 [facility] Comment on above: 1 Occurrences starting 01/08/2024 until 01/07/2025 End: 03-25-2025 Echocardiography ECHO Cardiology Routine Aortic root dilation (HCC) History of aortic valve replacement 1 Occurrences starting 03/25/2024 until 03/25/2025 [facility] Comment on above: 1 Occurrences starting 03/25/2024 until 03/25/2025 End: 03-27-2025 HOLTER MONITOR 48 HOUR HOLTER MONITOR 48 HOUR ECG Routine HOCM (hypertrophic obstructive cardiomyopathy) (HCC) 1 Occurrences starting 03/27/2024 until 03/27/2025 [facility] Comment on above: 1 Occurrences starting 03/27/2024 until 03/27/2025 LUNG DIFFUSION CAPAC ITY (DLCO) LUNG DIFFUSION CAPACITY (DLCO) PFT Routine Nonrheumatic aortic valve stenosis Pre-operative cardiovascular examination Aortic valve disorder Hypertrophic cardiomyopathy (HCC) 07/24/2023 7:26 AM EST [facility] Work Phone: End: 08-21-2024 MRA CHEST CARDIOVASCULAR WO IVCON MRA CHEST CARDIOVASCULAR WO IVCON Radiology Routine Aortic valve disorder 1 Occurrences starting 07/23/2023 until 08/21/2024 [facility] Work Phone: Comment on above: 1 Occurrences starting 07/23/2023 until 08/21/2024 MRA CHEST CARDIOVASC ULAR WO IVCON MRA CHEST CARDIOVASCULAR WO IVCON Radiology Routine Aortic valve disorder 07/24/2023 5:20 PM EST [facility] Work Phone: MRI CARDIAC MORPH FU NC WO/W IVCON MRI CARDIAC MORPH FUNC WO/W IVCON Radiology Routine Nonrheumatic aortic valve stenosis Pre-operative cardiovascular examination Aortic valve disorder Hypertrophic cardiomyopathy (HCC) 07/24/2023 5:20 PM EST [facility] [employer] Work Phone: MRI CARDIAC VELOCITY FLOW MAP MRI CARDIAC VELOCITY FLOW MAP Radiology Routine Nonrheumatic aortic valve stenosis Pre-operative cardiovascular examination Aortic valve disorder Hypertrophic cardiomyopathy (HCC) 07/24/2023 5:20 PM EST [facility] Work Phone: NVTA INVITAE CARDIOL OGY PANEL [facility] CARDIOLOGY PANEL Lab Routine HOCM (hypertrophic obstructive cardiomyopathy) (HCC) Ordered: 08/19/2024 [facility] Work Phone: Comment on above: Ordered: 08/19/2024 OUTSIDE VENDOR CARDI AC OUTPATIENT EXTENDED RHYTHM RECORDING (WITHOUT TELEMETRY) OUTSIDE VENDOR CARDIAC OUTPATIENT EXTENDED RHYTHM RECORDING (WITHOUT TELEMETRY) Holter Routine HOCM (hypertrophic obstructive cardiomyopathy) (HCC) Ordered: 04/30/2024 [facility] Work Phone: Comment on above: Ordered: 04/30/2024 Patient Education [facility] Work Phone: Patient referral [facility] Work Phone: End: 08-31-2024 Radiologic exam chest 2 views XR CHEST 2V FRONTAL/LAT Radiology Routine Surgery follow-up 1 Occurrences starting 08/02/2023 until 08/31/2024 [facility] Work Phone: Comment on above: 1 Occurrences starting 08/02/2023 until 08/31/2024 SPIROMETRY BASELINE ONLY SPIROME TRY BASELINE ONLY PFT Routine Nonrheumatic aortic valve stenosis Pre-operative cardiovascular examination Aortic valve disorder Hypertrophic cardiomyopathy (HCC) 07/24/2023 7:26 AM EST [facility] Work Phone: End: 03-27-2025 STRESS ECHO TREADMILL STRESS ECHO TREADMILL Cardiology Routine HOCM (hypertrophic obstructive cardiomyopathy) (HCC) 1 Occurrences starting 03/27/2024 until 03/27/2025 [facility] Work Phone: Comment on above: 1 Occurrences starting 03/27/2024 until 03/27/2025 [facility] CT & VAS [facility] Immunizations Immunization Date Immunization Notes Care Provider Amadou paniagua 02-16-2011 tetanus toxoid, redu luis enrique diphtheria toxoid, and acellular pertussis vaccine, adsorbed Charlotte Garcia RT(R) [facility] Work Phone: Payers Date Payer Category Payer Self-pay [id number] 2022 Medicare [employer] MEDICARE A ETNA MEDICARE PPO [id number] 2022-Present [phone] [address] [place] [address] PPO [id number] 2022 Medicare (Managed Care) [employer] DICARE [id number] 2022 Private Health Insurance 101 [id number] 2013 Unknown [employer] HIOCOMP [id number] 2013-Present [phone] [address] [facility] [address] [place] [address] [facility] [id number] 2004 Unknown [id number] 2004 Unknown [id number] Unknown [id number] Unknown [id number] Unknown [id number] Unknown [id number] Unknown [id number] Social History Date Type Detail Facility Start: 10-04-2021 End: 06-10-2023 Tobacco smoking status PRIS Unknown if ever smoked [facility] Start: 1955 Sex Assigned At Male W [facility] Start: 03-13-2011 End: 11-04-2023 Tobacco smoking status NHIS Never smoked tobacco [facility] Start: 03-13-2011 Tobacco use and exposure User of smokeless tobacco [facility] History of tobacco use Snuff User [facility] Start: 04-26-2022 End: 06-24-2024 Alcohol intake Current drinker of alcohol (finding) [facility] Start: 1955 Sex Assigned At Not on file [facility] Start: 04-26-2022 End: 04-28-2024 History of Social function [facility] Start: 04-26-2022 End: 04-28-2024 Tobacco use panel [facility] National Score (1-100), lower number is lower risk 59 [facility] Start: 12-10-2024 Sex Male (finding) [facility] Medical Equipment Procedure Code Equipment Code Equipment Original Text Equipment Identifier Dates [place] Thk1.65mm P tfe 4x.5in Cardiovascular Sterile - [id number] Start: 07-29-2023 Valve [place]que[place] In spiris Resilia 25mm Pericardial Aortic Bioprosthesis - [id number] Start: 07-29-2023 Goals Date Patient Goal Desired Activity /State Personal health goal Functional Status Date Assessment Result Facility 08-05-2023 Are you deaf, or do you have serious difficulty hearing No 08/05/2023 12:43 PM Nhan Desai RN [facility] 08-05-2023 Are you blind, or do you have serious difficulty seeing, even when wearing glasses No 08/05/2023 12:43 PM Nhan Desai RN [facility] 08-05-2023 Do you have serious difficulty walking or climbing stairs No 08/05/2023 12:43 PM Nhan Desai RN [facility] 08-05-2023 Do you have difficul ty dressing or bathing No 08/05/2023 12:43 PM Nhan Desai RN [facility] 08-05-2023 Because of a physica l, mental, or emotional condition, do you have difficulty doing errands alone such as visiting a physician's office or shopping No 08/05/2023 12:43 PM Nhan Desai RN [facility] Mental Status Date Assessment Result Facility 08-05-2023 Because of a physica l, mental, or emotional condition, do you have serious difficulty concentrating, remembering, or making decisions No 08/05/2023 12:43 PM Nhan Desai, MARCUS No [facility] 07-31-2022 Cognitive function Voice/Name Elsa Cuenca [facility] Work Phone: Clinical Notes 05-20-2006 to 03-05-2025 Telephone Encounter - Garima Garcia - 03/05/2025 8:42 AM EDTTelephone Encounter - Garima Garcia - 03/05/2025 8:42 AM Harriet Ogden LGC - 08/19/2024 10:00 AM ESTPatient Instructions Note Date & Type Note Facility 03-05-2025 Telephone encount er Note Patient used [facility] to request a refill on the medication(s) below: Requested Prescriptions Pending Prescriptions Disp Refills empagliflozin (JARDIANCE) 10 mg tablet [Pharmacy Med Name: Jardiance 10 MG Oral Tablet] 90 tablet 1 Sig: Take 1 tablet by mouth once daily with breakfast PHARMACY NAME [facility] / PHONE NUMBER: [phone] Pickup RX Physician's Name: Dr. Levin Last seen in office:03/25/24 Patient has appt on 05/26/25 If last appointment greater than one year or no follow up scheduled, sent to schedulers Ashley Garcia 03/05/2025 [facility] 03-05-2025 Miscellaneous Notes Formattin g of this note is different from the original. Patient used [facility] to request a refill on the medication(s) below: Requested Prescriptions Pending Prescriptions Disp Refills empagliflozin (JARDIANCE) 10 mg tablet [Pharmacy Med Name: Jardiance 10 MG Oral Tablet] 90 tablet 1 Sig: Take 1 tablet by mouth once daily with breakfast PHARMACY NAME [facility] / PHONE NUMBER: [phone] Pickup RX Physician's Name: Dr. Levin Last seen in office:03/25/24 Patient has appt on 05/26/25 If last appointment greater than one year or no follow up scheduled, sent to schedulers Ashley Garcia 03/05/2025 documented in this encounter [facility] 12-10-2024 Discharge summary [facility] 08-19-2024 History of Present illness Narrative GENETIC COUNSELING CONSULTATION Martin Henson is a 68 year old male with hypertrophic cardiomyopathy referred for genetic counseling by Dr. Deena Francois. He is accompanied at his appointment by his . HISTORY OF PRESENT ILLNESS: Martin Henson is a 68 year old male with: hypertrophic obstructive cardiomyopathy (oHCM) history of on BAV and root > ascending dilation, s/p AVR (Inspiris 25) and aortoplasty of root Ascending aortoplasty incorporated into aortotomy for AVR on Jul 29, 2023. By Dr Navarro. Martin Henson was referred to cardiovascular genetics for genetic counseling and consideration for genetic testing for hypertrophic cardiomyopathy Cardiovascular Testing: echocardiogram (03/25/24) CONCLUSIONS: - Exam indication: Limited for LV gradients - The left ventricle is normal in size. There is severe asymmetric left ventricular hypertrophy. Left ventricular systolic function is normal. EF = 65 5% (visual est.) Left ventricular diastolic function was not evaluated due to Limited Echo. - The right ventricle is normal in size. Right ventricular systolic function is normal. - Inspiris prosthetic aortic valve (size #25). There is no aortic valve regurgitation. The peak gradient is 24 mmHg, the mean gradient is 12 mmHg and the dimensionless valve index is 0.53. Prior Peak/Mean gradients: 33/18mmHg. - There is a intracavitary gradient of 35 mmHg from severe LVH (clip #55). There is no obvious SANJEEV. - Exam was compared with the prior echocardiographic exam performed on 01/08/2024. Interval decrease in HR, intracavitary gradients and transaortic valve gradients. MEDICAL HISTORY: PAST MEDICAL HISTORY Diagnosis Date Aortic stenosis Bicuspid aortic valve Hemorrhoids HLD (hyperlipidemia) HTN (hypertension) Primary cardiomyopathy (HCC) SURGICAL HISTORY: PAST SURGICAL HISTORY Procedure Laterality Date ARTHROPLASTY GLENOHUMRL JT HEMIARTHROPLASTY 07/2006 Arthroplasty, shoulder: torn rotator cuff (right) COLONOSCOPY FLX DX W/COLLJ SPEC WHEN PFRMD 04/09/11 TONSILLECTOMY PRIMARY/SECONDARY <AGE 12 Tonsillectomy XCAPSL CTRC RMVL INSJ IO LENS PROSTH W/O ECP 2006 Cataract Removal bilateral FAMILY HISTORY: A detailed, 4-generation family history was obtained, details are available on request. Significant diagnoses are listed below: FAMILY HISTORY Problem Relation Age of Onset Cancer Mother breast Arthritis Mother Hypertension Mother Heart Father atrial fib Stroke Father ? A-fib related Hypertension Sister Hypertension Brother Colon Cancer Other none Prostate Cancer Other none Diabetes Other none The remainder of the reported family history is negative for hereditary cardiovascular disease, sudden , and consanguinity. IMPRESSION: Martin Henson is a 68 year old male with: oHCM Bicuspid aortic valve with aortic valve replacement and aortoplasty (root >ascending) His family history is significant for a father with atrial fibrillation and stroke and a paternal uncle that suddenly in his 40s. The patient's personal and family history is potentially suggestive of a hereditary cardiomyopathy. According to the guidelines of multiple professional societies (AHA, ACC, HFSA, and HRS), genetic testing is recommended for patients diagnosed with cardiomyopathy, including hypertrophic cardiomyopathy (PMID: 81288005, [id number]). Recommended screening of first-degree relatives. Discussed the pros and cons of genetic testing for HCM and HCM phenocopies. A positive result would confirm a genetic diagnosis, aid in risk stratification, and allow family members to be screened definitively through genetic testing. A negative/normal result may reduce the likelihood of a strong genetic cause to your HCM, but does not rule it out and all first-degree relatives would need to be regularly evaluated by a powder mill operator for HCM. We reviewed the options for genetic testing including a cardiomyopathy/arrhythmia panel with the option for insurance coverage, self pay or sponsored testing. The patient elected to proceed with the [facility] program which is a sponsored genetic test, this means, if the testing is not covered by insurance this program will cover the cost. However, if this genetic testing is a covered benefit through insurance it will be billed to insurance through [employer]'s typical process. If there is an out of pocket expense of greater than $100 [facility] (owned by [employer]) will make an automated call requesting patient call billing department back; if expense of greater than $250, a live person will call and hold the bill for 21 days for them to call and determine if there are other available options to reduced the cost of testing. The patient does need to respond to [facility] with how they would like to proceed with cost. For more information about insurance billing please contact [employer] billing at [email or web address] or [phone] If there is no insurance coverage the sponsored test will apply and in this regard, the cost is covered by the genetic testing company, patient advocacy group and/or other commercial organizations. Third parties and commercial organizations may receive de-identified patient data from this program, but at no time would they receive patient identifiable information. Information regarding potential targeted therapies may be disclosed to the ordering provider but does not obligate the provider or patient to use any products or services. PLAN: - arrhythmia/cardiomyopathy panel, reflex to aortopathy panel through [employer]. Results are expected in approximately 2-3 weeks from the time the sample is received by the lab. The patient will be contacted by telephone and/or MyChart to discuss these results. - If genetic testing is positive, recommend genetic counseling and testing for relatives - If genetic testing is negative/normal, recommend cardiac screening of all first-degree relatives GENETIC COUNSELING: Hypertrophic cardiomyopathy (HCM) is a genetic condition associated with thickening of the heart muscle over time, especially in early and middle adulthood. Symptoms typically include palpitations, shortness of breath, and chest pain. Many individuals with HCM also develop heart rhythm issues over time. In some cases, these issues may lead to heart failure or sudden . HCM is considered a genetic condition because there are often other family members who have HCM that may be undiagnosed or misdiagnosed. In addition, studies suggest that current genetic testing can identify the exact genetic cause (or variant) in up to 50% of individuals with HCM. When the exact genetic cause of HCM is identified, it is typically inherited in an autosomal dominant pattern. This means that first-degree family members (children, siblings, parents) have a 50% chance of having a genetic predisposition for HCM as well. When the exact genetic cause cannot be identified, the risk to family members may not be clear, and can vary from anywhere between 3% to 50%. There is variability in symptoms and some individuals with a susceptibility for HCM may never develop problems, including among family members with the same genetic cause. We reviewed the risks, benefits and limitations of genetic testing, which should begin in an individual with HCM. If an HCM-causing (pathogenic or likely pathogenic) variant is identified, this would confirm an underlying genetic cause for HCM. Occasionally this information can aid in risk stratification and medical management. Understanding the exact genetic cause of HCM in the family can also help with screening children or siblings. If relatives also have the genetic cause of HCM in the family, they are at increased risk and should receive regular screening by a powder mill operator. If relatives do not have the genetic cause of HCM in the family, they are not at increased risk and do not require any screening. If no HCM-causing variant is identified or testing was not performed, we cannot determine which relatives are at risk for HCM and which relatives are not. There may still be a strong genetic cause (10% of individuals) or a combination of small genetic risk factors which cannot be identified with current technology. Therefore, current guidelines still recommend that all first-degree relatives (parents, siblings, children) should be evaluated by a powder mill operator familiar with HCM at the time of diagnosis of their relative and receive ongoing periodic screening for HCM. Periodic evaluation (e.g. ECG, echocardiogram) should occur at the following intervals, or sooner based on clinical findings: 2023 AHA/ACC/AMSSM/HRS/PACES/SCMR Guidelines Children and adolescents Genotype-positive or with early-onset disease in the family: every 1-2 years All other children and adolescents: every 2-3 years Adults: every 3-5 years 2018 Heart Failure Society of [place] Guidelines Age 0-5: Annual (in families with early-onset disease) Age 6-12: every 1-2 years (in families with early-onset disease) Age 13-19: every 2-3 years Age 20 and older: every 5 years The 2022 Society of Cardiology also recommends that first-degree relatives of an individual diagnosed with cardiomyopathy undergo baseline clinical screening including ECG and cardiac imaging, including in families where genetic testing was negative or not completed. Often times, a rare variant may be identified which is not well-studied or understood. These are called variants of uncertain significance. If a variant of unknown significance is identified, these results are typically not used for medical care or family screening. In rare cases, family testing may be recommended on a research basis to clarify the significance of the variant. Reference: 1. 2023 AHA/ACC/AMSSM/HRS/PACES/SCMR Guideline for the Management of Hypertrophic Cardiomyopathy: A Report of the [place] Heart Association/[place] College of Cardiology Joint Committee on Clinical Practice Guidelines. Vernell, et al. 2023. Circulation. 2. Genetic Evaluation of Cardiomyopathy--A Heart Failure Society of [place] Practice Guideline. Noel et al. 2018. J Card Failure 3. 2022 ESC Guidelines for the Management of Cardiomyopathies. Arnol et al. 2022. Eur Heart J. RESOURCES: Hypertrophic Cardiomyopathy Association: 4hcm.org -------- The patient was seen for a total of 30 minutes in ccxm-yb-bunh counseling. This plan is being carried out under oversight of Dr. Priscilla Lu, Clinical Livestock Farmer. This note is available to the patient through [employer] and will be sent to the referring provider through [employer] or the [place] Mail as necessary. Harriet Hogan MS, [facility] Licensed, Certified Genetic Counselor PSYCHIATRIC CC: Dr. Deena Lu documented in this encounter [facility] 08-19-2024 Note HNO ID: [id number] Author: HARRIET HOGAN LGC Service: ? Author Type: Genetic Counselor Type: Progress Notes Filed: 08/26/2024 11:49 Note Text: GENETIC COUNSELING CONSULTATION Martin Henson is a 68 year old male with hypertrophic cardiomyopathy referred for genetic counseling by Dr. Deena Francois. He is accompanied at his appointment by his . HISTORY OF PRESENT ILLNESS: Martin Henson is a 68 year old male with: hypertrophic obstructive cardiomyopathy (oHCM) history of on BAV and root > ascending dilation, s/p AVR (Inspiris 25) and aortoplasty of root Ascending aortoplasty incorporated into aortotomy for AVR on Jul 29, 2023. By Dr Navarro. Martin Henson was referred to cardiovascular genetics for genetic counseling and consideration for genetic testing for hypertrophic cardiomyopathy Cardiovascular Testing: echocardiogram (03/25/24) CONCLUSIONS: - Exam indication: Limited for LV gradients - The left ventricle is normal in size. There is severe asymmetric left ventricular hypertrophy. Left ventricular systolic function is normal. EF = 65 ? 5% (visual est.) Left ventricular diastolic function was not evaluated due to Limited Echo. - The right ventricle is normal in size. Right ventricular systolic function is normal. - Inspiris prosthetic aortic valve (size #25). There is no aortic valve regurgitation. The peak gradient is 24 mmHg, the mean gradient is 12 mmHg and the dimensionless valve index is 0.53. Prior Peak/Mean gradients: 33/18mmHg. - There is a intracavitary gradient of 35 mmHg from severe LVH (clip #55). There is no obvious SANJEEV. - Exam was compared with the prior CC echocardiographic exam performed on 01/08/2024. Interval decrease in HR, intracavitary gradients and transaortic valve gradients. MEDICAL HISTORY: PAST MEDICAL HISTORY Diagnosis Date Aortic stenosis Bicuspid aortic valve Hemorrhoids HLD (hyperlipidemia) HTN (hypertension) Primary cardiomyopathy (HCC) SURGICAL HISTORY: PAST SURGICAL HISTORY Procedure Laterality Date ARTHROPLASTY GLENOHUMRL JT HEMIARTHROPLASTY 07/2006 Arthroplasty, shoulder: torn rotator cuff (right) COLONOSCOPY FLX DX W/COLLJ SPEC WHEN PFRMD 04/09/11 TONSILLECTOMY PRIMARY/SECONDARY Tonsillectomy XCAPSL CTRC RMVL INSJ IO LENS PROSTH W/O ECP 2006 Cataract Removal bilateral FAMILY HISTORY: A detailed, 4-generation family history was obtained, details are available on request. Significant diagnoses are listed below: FAMILY HISTORY Problem Relation Age of Onset Cancer Mother breast Arthritis Mother Hypertension Mother Heart Father atrial fib Stroke Father ? A-fib related Hypertension Sister Hypertension Brother Colon Cancer Other none Prostate Cancer Other none Diabetes Other none The remainder of the reported family history is negative for hereditary cardiovascular disease, sudden , and consanguinity. IMPRESSION: Martin Henson is a 68 year old male with: oHCM Bicuspid aortic valve with aortic valve replacement and aortoplasty (root >ascending) His family history is significant for a father with atrial fibrillation and stroke and a paternal uncle that suddenly in his 40s. The patient's personal and family history is potentially suggestive of a hereditary cardiomyopathy. According to the guidelines of multiple professional societies (AHA, ACC, HFSA, and HRS), genetic testing is recommended for patients diagnosed with cardiomyopathy, including hypertrophic cardiomyopathy (PMID: [id number], [id number]). Recommended screening of first-degree relatives. Discussed the pros and cons of genetic testing for HCM and HCM phenocopies. A positive result would confirm a genetic diagnosis, aid in risk stratification, and allow family members to be screened definitively through genetic testing. A negative/normal result may reduce the likelihood of a strong genetic cause to your HCM, but does not rule it out and all first-degree relatives would need to be regularly evaluated by a powder mill operator for HCM. We reviewed the options for genetic testing including a cardiomyopathy/arrhythmia panel with the option for insurance coverage, self pay or sponsored testing. The patient elected to proceed with the [facility] program which is a sponsored genetic test, this means, if the testing is not covered by insurance this program will cover the cost. However, if this genetic testing is a covered benefit through insurance it will be billed to insurance through [employer]'s typical process. If there is an out of pocket expense of greater than $100 [employer] (owned by [employer]) will make an automated call requesting patient call billing department back; if expense of greater than $250, a live person will call and hold the bill for 21 days for them to call and determine if there are other available options to reduced the cost of testing. Th (more content not included)... [facility] 06-24-2024 History of Present illness Narrative Images from the original note were not included. [facility] [place] [facility] Department of Cardiovascular Medicine SECTION OF CARDIAC PACING and ELECTROPHYSIOLOGY OUTPATIENT VISIT DATE June 24, 2024 OUTPATIENT VISIT TYPE NEW PRIMARY CARE PHYSICIAN: ABDIEL MATHEWS [address] [place] [address] REFERRING PHYSICIAN: Deena Francois MD [address] [address] NURSING INTAKE HISTORY: Mr. Henson is a 68 year old male who presents today for possible ICD ad treatment options. He has past medical history of on BAV and root dilation, s/p AVR (Inspiris 25) and aortoplasty of root Ascending aortoplasty incorporated into aortotomy for AVR on Jul 29, 2023. By Dr Navarro. He wore Zio Monitor 05/2024 and was not aware of any arrhythmias. He denies lightheadedness, syncope, nearsyncope, palpitations, chest pain, shortness of breath, orthopnea, PND, or edema. Tolerating medications without any adverse effects. PAST MEDICAL HISTORY Diagnosis Date Aortic stenosis Bicuspid aortic valve Hemorrhoids HLD (hyperlipidemia) HTN (hypertension) Primary cardiomyopathy (HCC) PAST SURGICAL HISTORY Procedure Laterality Date ARTHROPLASTY GLENOHUMRL JT HEMIARTHROPLASTY 07/2006 Arthroplasty, shoulder: torn rotator cuff (right) COLONOSCOPY FLX DX W/COLLJ SPEC WHEN PFRMD 04/09/11 TONSILLECTOMY PRIMARY/SECONDARY <AGE 12 Tonsillectomy XCAPSL CTRC RMVL INSJ IO LENS PROSTH W/O ECP 2006 Cataract Removal bilateral SOCIAL HISTORY Social History Tobacco Use Smoking status: Never Smokeless tobacco: Current Types: Snuff Vaping Use Vaping status: Never Used Substance Use Topics Alcohol use: Yes Comment: very rarely Drug use: No FAMILY HISTORY Problem Relation Age of Onset Cancer Mother breast Arthritis Mother Hypertension Mother Heart Father atrial fib Stroke Father ? A-fib related Hypertension Sister Hypertension Brother Colon Cancer Other none Prostate Cancer Other none Diabetes Other none ALLERGIES: ALLERGIES No Known Allergies MEDICATIONS: Telmisartan 20 mg tablet Take 2 tablets by mouth once daily. empagliflozin (JARDIANCE) 10 mg tablet Take 1 tablet by mouth daily with breakfast. metoprolol succinate ER (TOPROL XL) 100 mg Take 2 tablets by mouth daily with breakfast AND 1 tablet daily at bedtime. omeprazole (PRILOSEC) 40 mg capsule Take 1 capsule by mouth once daily. aspirin, enteric coated (ASPIRIN, ENTERIC COATED) 81 mg EC tablet Take 1 tablet by mouth once daily. atorvastatin (LIPITOR) 20 mg tablet Take 1 tablet by mouth daily at bedtime. cetirizine (ZYRTEC) 10 mg tablet Take 1 tablet by mouth once daily as needed for cold/allergy symptoms. acetaminophen (TYLENOL) 325 mg tablet Take 2 tablets by mouth every 6 hours as needed (for mild surgical pain). MULTIVITAMIN TAB Take one(1) tablet daily. General, constitutional: Weight loss or gain- No, Fever or chills-No, Weakness-No, Trouble sleeping-No. Head, Eyes, Ears, Mouth: Headache, head injury-No, Glasses or contact lenses-No, Pain-No, Impaired vision-No, Decreased hearing-No, Ringing in ears-No, Nose bleeds-No, Dental difficulties-No, Bleeding gums-No, Dentures-No. Neck: Swelling-No, Pain-No, Stiffness-No. Respiratory: Cough-No, Spitting up blood-No, Shortness of breath-No, Wheezing or asthma-No. Musculoskeletal: Muscle or joint pain or stiffness-No, Joint swelling-No. Gastrointestinal: Difficulty swallowing-No, Heartburn-No, Change in bowel habits-No, Blood in stool, Dark black stools-No. Neurological/Psychiatric: Weakness, paralysis-No, Numbness-No, Tingling-No, Tremor-No, Nervousness or anxiety-No, Depressed mood-No, Memory loss-No. Skin: Rash-No, Itching-No. Hematological: Easy bruising-No, Easy bleeding-No. Endocrine: Heat or cold intolerance-No, Excessive sweating-No, Frequent urination-No, Frequent thirst-No. Eunice Nettles RN PHYSICAL EXAMINATION: BP 132/70 Pulse (!) 59 Ht 185.4 cm (6' 1) Wt 109.8 kg (242 lb) BMI 31.93 kg/m Echo: 03/25/24 CONCLUSIONS: - Exam indication: Limited for LV gradients - The left ventricle is normal in size. There is severe asymmetric left ventricular hypertrophy. Left ventricular systolic function is normal. EF = 65 5% (visual est.) Left ventricular diastolic function was not evaluated due to Limited Echo. - The right ventricle is normal in size. Right ventricular systolic function is normal. - Inspiris prosthetic aortic valve (size #25). There is no aortic valve regurgitation. The peak gradient is 24 mmHg, the mean gradient is 12 mmHg and the dimensionless valve index is 0.53. Prior Peak/Mean gradients: 33/18mmHg. - There is a intracavitary gradient of 35 mmHg from severe LVH (clip #55). There is no obvious SANJEEV. - Exam was compared with the prior echocardiographic exam performed on 01/08/2024. Interval decrease in HR, intracavitary gradients and transaortic valve gradients. Stress Echo: 04/28/24 CONCLUSIONS: - Exam indication: Hypertrophic obstructive cardiomyopathy - The exercise stress echo was negative for ischemia at 88 % of MPHR (7.2 METS). No regional wall motion abnormality seen at heart rate achieved. - There is severe asymmetric left ventricular hypertrophy. - LV cavity gradient increased from 36 mmHg at rest (at 60 bpm) to 110 mmHg post exercise at a heart rate of 111 bpm. - Prior CC echocardiographic exam was performed on 03/25/2024. Zio Monitor: 05/27/24 IRHYTHM FINDINGS: Patient had a min HR of 46 bpm, max HR of 174 bpm, and avg HR of 75 bpm. Predominant underlying rhythm was Sinus Rhythm. 4 Ventricular Tachycardia runs occurred, the run with the fastest interval lasting 4 beats with a max rate of 162 bpm, the longest lasting 15 beats with an avg rate of 140 bpm. 27 Supraventricular Tachycardia runs occurred, the run with the fastest interval lasting 5 beats with a max rate of 174 bpm, the longest lasting 18 beats with an avg rate of 100 bpm. Isolated SVEs were rare (<1.0%), SVE Couplets were rare (<1.0%), and SVE Triplets were rare (<1.0%). Isolated VEs were rare (<1.0%, 6189), VE Couplets were rare (<1.0%, 26), and VE Triplets were rare (<1.0%, 7). EP STAFF NOTE: Please note: This note has been produced using speech recognition software and may contain errors related to that system including grammar, punctuation, spelling, gender and words and phrases that may be inappropriate Consultation requested by Vidya for an opinion regarding management of HOCM and my final recommendations will be communicated back to the requesting physician by way of shared medical record OR letter via fax/US mail. I have reviewed the above information and examined the patient and confirm the above with the following additions/modifications. ECG: PE: Vitals: BP 132/70 Pulse (!) 59 Ht 185.4 cm (6' 1) Wt 109.8 kg (242 lb) BMI 31.93 kg/m General: Appears well nourished. In no acute distress. Skin: No clubbing. No cyanosis. Eyes: EOMI Oropharynx: No oral lesions. Neck: no JVD. Lungs: Unlabored Heart: RRR Abdomen: nontender Extremities: No peripheral edema bilaterally. DEVICE CHECK: PROBLEM LIST: on BAV and root dilation, s/p AVR (Inspiris) and aortoplasty of root in Jul 2023. OP report from Dr. Navarro 67 year old male with hypertension, hyperlipidemia, obesity, and known bicuspid aortic stenosis followed with serial echocardiograms with progressive shortness of breath who presents for surgical valve replacement. He underwent cardiac MRI in the setting of concern for cardiac amyloidosis and cardiomyopathy which revealed an ectatic ascending aorta. LHC did not reveal any obstructive CAD and ECHO revealed preserved bi-ventricular function with severe aortic stenosis and moderate aortic insufficiency without any other hemodynamically significant valvular disease. Procedures performed: 1. Upper nohemi-sternotomy; 2. AVR (#25 Inspiris bio-prosthetic valve); and 3. Ascending aortoplasty HTN. Aortic root 45 mm on CTA Echo shows severe LVH with mid-cavity obstruction. Likely secondary LVH due to +HTN (cf cardiac MRI pre-op), and EF ~70%. Increase Metoprolol succinate to 100 mg twice a day. TTE : ECHO Collected: 01/08/2024 1:33 PM (Final result) Impression: CONCLUSIONS: - Technically difficult exam due to body habitus. - Exam indication: S/P AVR, Ascending Ao repair (07/2023) - The left ventricle is small. There is severe concentric left ventricular hypertrophy. Left ventricular systolic function is normal. EF = 70 5% (2D 4-ch.) Grade I left ventricular diastolic dysfunction. - The right ventricle is normal in size. Right ventricular systolic function is normal. - The visualized aorta is dilated with a maximal dimension of 4.1 cm. - Inspiris prosthetic aortic valve (size #25). There is no aortic valve regurgitation. The peak gradient is 33 mmHg, the mean gradient is 18 mmHg and the dimensionless valve index is 0.62. - There is an intracavitary gradient of ~102mmHg from severe concentric LVH (Clip #78). There is no obvious SANJEEV. - Exam was compared with the prior CC echocardiographic exam performed on 07/29/2023. First postop TTE. cMRI: IMPRESSION: 1. Bicuspid aortic valve with likely fusion of the right and left coronary cusp with associated signal dephasing suggestive of significant aortic stenosis, could correlate with echocardiographic findings. There is concomitant moderate aortic regurgitation (regurgitant volume 21 mL, regurgitant fraction 25%). 2. The left ventricle is normal in size (LV EDVI = 93 mL/m ), with severe concentric wall thickening (mid-basal IVS measuring up to 2.2 cm), and normal systolic function (LVEF = 56%). Delayed imaging is slightly suboptimal quality with suggestion of mild RV insertion point LGE, though without convincing evidence to suggest a diffuse infiltrative process. T1 mapping/ECV were not performed. 3. The right ventricle is normal in size (RV EDVI = 64 mL/m ), with normal systolic function (RVEF = 61%) 4. There is moderate ectasia of the aortic root (4.6 cm), and mid ascending aorta (4.5 cm). The remainder of the thoracic aorta is normal in course, contour, and caliber, without acute pathology. 5. There is trace to mild qualitative mitral valve regurgitation. 6. The main PA is dilated 3.5 cm. stress TTE : STRESS ECHO Peak HR 133 bpm. (88 % MPHR) Peak BP 168 mmHg/84 mmHg. There is left ventricular cavity obliteration with stress. CONCLUSIONS: - Exam indication: Hypertrophic obstructive cardiomyopathy - The exercise stress echo was negative for ischemia at 88 % of MPHR (7.2 METS). No regional wall motion abnormality seen at heart rate achieved. - There is severe asymmetric left ventricular hypertrophy. - LV cavity gradient increased from 36 mmHg at rest (at 60 bpm) to 110 mmHg post exercise at a heart rate of 111 bpm. - Prior CC echocardiographic exam was performed on 03/25/2024. [facility] : 05/05/2024-05/19/2024 IRHYTHM FINDINGS: Patient had a min HR of 46 bpm, max HR of 174 bpm, and avg HR of 75 bpm. Predominant underlying rhythm was Sinus Rhythm. 4 Ventricular Tachycardia runs occurred, the run with the fastest interval lasting 4 beats with a max rate of 162 bpm, the longest lasting 15 beats with an avg rate of 140 bpm. 27 Supraventricular Tachycardia runs occurred, the run with the fastest interval lasting 5 beats with a max rate of 174 bpm, the longest lasting 18 beats with an avg rate of 100 bpm. Isolated SVEs were rare (<1.0%), SVE Couplets were rare (<1.0%), and SVE Triplets were rare (<1.0%). Isolated VEs were rare (<1.0%, 6189), VE Couplets were rare (<1.0%, 26), and VE Triplets were rare (<1.0%, 7). IMPRESSION / PLAN: 68 y/o with in the setting of a bicuspid AV and LVH s/p AVR . LV did not remodel post AVR as anticipated. 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 Significant gradient see on recent stress testing. Genetic testing pending. Zio monitor showed NSVT. He is referred to EP for possible ICD placement. No other associated SCD risk factors. ESC HCM SCD risk score of 4.85 at 5 years - ICD can be considered Reviewed with him the R/B of ICD therapy - SQ versus endo device reviewed. He is candidate but he is not interested in this approach at this time. also reviewed with him the potential to develop AF in the setting of HOCM. He is familiar - father with AF. EF follow up as needed. This note was created with electronic dictation and errors in syntax and meaning may have occurred. Edmund Kamara MD Pager: [phone] Office: [phone] I personally examined the patient and repeated the napoles components of the exam and cardiac history, past medical and surgical history, social and family history. The assessment and plan were formulated and discussed with the patient and family. I spent over 25 minutes (face time) and greater than 50% of this time was spent counseling and/or coordinating the care of the patient with regard the diagnosis and medical regimen Referring Physician: ABDIEL MATHEWS [address] [place] [address] Deena Franocis MD [address] [place] [address] documented in this encounter [facility] 06-24-2024 Note HNO ID: [id number] Author: EDMUND KAMARA MD Service: ? Author Type: Physician Type: Progress Notes Filed: 06/24/2024 17:46 Note Text: [facility] [place] [facility] Department of Cardiovascular Medicine SECTION OF CARDIAC PACING and ELECTROPHYSIOLOGY OUTPATIENT VISIT DATE June 24, 2024 OUTPATIENT VISIT TYPE NEW PRIMARY CARE PHYSICIAN: ABDIEL MATHEWS [id number] [id number] REFERRING PHYSICIAN: Deena Francois MD [address] [place] [address] NURSING INTAKE HISTORY: Mr. Henson is a 68 year old male who presents today for possible ICD ad treatment options. He has past medical history of on BAV and root dilation, s/p AVR (Inspiris 25) and aortoplasty of root Ascending aortoplasty incorporated into aortotomy for AVR on Jul 29, 2023. By Dr Navarro. He wore Zio Monitor 05/2024 and was not aware of any arrhythmias. He denies lightheadedness, syncope, nearsyncope, palpitations, chest pain, shortness of breath, orthopnea, PND, or edema. Tolerating medications without any adverse effects. PAST MEDICAL HISTORY Diagnosis Date Aortic stenosis Bicuspid aortic valve Hemorrhoids HLD (hyperlipidemia) HTN (hypertension) Primary cardiomyopathy (HCC) PAST SURGICAL HISTORY Procedure Laterality Date ARTHROPLASTY GLENOHUMRL JT HEMIARTHROPLASTY 07/2006 Arthroplasty, shoulder: torn rotator cuff (right) COLONOSCOPY FLX DX W/COLLJ SPEC WHEN PFRMD 04/09/11 TONSILLECTOMY PRIMARY/SECONDARY Tonsillectomy XCAPSL CTRC RMVL INSJ IO LENS PROSTH W/O ECP 2006 Cataract Removal bilateral SOCIAL HISTORY Social History Tobacco Use Smoking status: Never Smokeless tobacco: Current Types: Snuff Vaping Use Vaping status: Never Used Substance Use Topics Alcohol use: Yes Comment: very rarely Drug use: No FAMILY HISTORY Problem Relation Age of Onset Cancer Mother breast Arthritis Mother Hypertension Mother Heart Father atrial fib Stroke Father ? A-fib related Hypertension Sister Hypertension Brother Colon Cancer Other none Prostate Cancer Other none Diabetes Other none ALLERGIES: ALLERGIES No Known Allergies MEDICATIONS: Telmisartan 20 mg tablet Take 2 tablets by mouth once daily. empagliflozin (JARDIANCE) 10 mg tablet Take 1 tablet by mouth daily with breakfast. metoprolol succinate ER (TOPROL XL) 100 mg Take 2 tablets by mouth daily with breakfast AND 1 tablet daily at bedtime. omeprazole (PRILOSEC) 40 mg capsule Take 1 capsule by mouth once daily. aspirin, enteric coated (ASPIRIN, ENTERIC COATED) 81 mg EC tablet Take 1 tablet by mouth once daily. atorvastatin (LIPITOR) 20 mg tablet Take 1 tablet by mouth daily at bedtime. cetirizine (ZYRTEC) 10 mg tablet Take 1 tablet by mouth once daily as needed for cold/allergy symptoms. acetaminophen (TYLENOL) 325 mg tablet Take 2 tablets by mouth every 6 hours as needed (for mild surgical pain). MULTIVITAMIN TAB Take one(1) tablet daily. General, constitutional: Weight loss or gain- No, Fever or chills-No, Weakness-No, Trouble sleeping-No. Head, Eyes, Ears, Mouth: Headache, head injury-No, Glasses or contact lenses-No, Pain-No, Impaired vision-No, Decreased hearing-No, Ringing in ears-No, Nose bleeds-No, Dental difficulties-No, Bleeding gums-No, Dentures-No. Neck: Swelling-No, Pain-No, Stiffness-No. Respiratory: Cough-No, Spitting up blood-No, Shortness of breath-No, Wheezing or asthma-No. Musculoskeletal: Muscle or joint pain or stiffness-No, Joint swelling-No. Gastrointestinal: Difficulty swallowing-No, Heartburn-No, Change in bowel habits-No, Blood in stool, Dark black stools-No. Neurological/Psychiatric: Weakness, paralysis-No, Numbness-No, Tingling-No, Tremor-No, Nervousness or anxiety-No, Depressed mood-No, Memory loss-No. Skin: Rash-No, Itching-No. Hematological: Easy bruising-No, Easy bleeding-No. Endocrine: Heat or cold intolerance-No, Excessive sweating-No, Frequent urination-No, Frequent thirst-No. Eunice Nettles RN PHYSICAL EXAMINATION: BP 132/70 Pulse (!) 59 Ht 185.4 cm (6' 1) Wt 109.8 kg (242 lb) BMI 31.93 kg/m? Echo: 03/25/24 CONCLUSIONS: - Exam indication: Limited for LV gradients - The left ventricle is normal in size. There is severe asymmetric left ventricular hypertrophy. Left ventricular systolic function is normal. EF = 65 ? 5% (visual est.) Left ventricular diastolic function was not evaluated due to Limited Echo. - The right ventricle is normal in size. Right ventricular systolic function is normal. - Inspiris prosthetic aortic valve (size #25). There is no aortic valve regurgitation. The peak gradient is 24 mmHg, the mean gradient is 12 mmHg and the dimensionless valve index is 0.53. Prior Peak/Mean gradients: 33/18mmHg. - There is a intracavitary gradient of 35 mmHg from severe LVH (clip #55). There is (more content not included)... [facility] 06-08-2024 Telephone encounter Note Images from the original note were not included. Deena Francois MD P [facility] Clinical Nurse Phone Pool Cc: Garima Garcia Please, let patient know that I reviewed Zio: there are some NSVT, and I would like him to see an EP within the next couple of weeks to discuss ICD. Thanks, PS: Kiarra, please, can you make sure patient is seen by EP next week? Thnaks Messaged patient Lester Lewis RN [facility] 06-08-2024 Miscellaneous Notes Images from the original note were not included. Deena Francois MD P [facility] Clinical Nurse Phone Pool Cc: Garima Garcia Please, let patient know that I reviewed Zio: there are some NSVT, and I would like him to see an EP within the next couple of weeks to discuss ICD. Thanks, PS: Kiarra, please, can you make sure patient is seen by EP next week? Thnaks Messaged patient Lester Lewis RN documented in this encounter [facility] 05-05-2024 Telephone encounter Note Deena Francois MD This looks like a CARD rx. [facility] 05-05-2024 Miscellaneous Notes Deena Francois MD This looks like a CARD rx. documented in this encounter [facility] 05-05-2024 Telephone encounter Note Patient called and asked that office notes and stress echo be sent sent Dr. Mathews [phone] received fax confirmation Goldie Leger May 05, 2024 8:50 AM [facility] 05-05-2024 Miscellaneous Notes Patient called and asked that office notes and stress echo be sent sent Dr. Mathews [phone] received fax confirmation Goldie Leger May 05, 2024 8:50 AM documented in this encounter [facility] 04-30-2024 Telephone encounter Note ----- Message from Deena Francois MD sent at 04/30/2024 11:44 AM EDT ----- I called patient's cell phone but didn't talk with him (AM). Please, let patient know I have reviewed his stress echo: there is some thickness of the heart and obstruction with stress but he did great. I would like to know if he was instructed to hold his Metoprolol for the test? I think I had told him to NOT HOLD it. What did he do? I just would like to know if gradient occurred with beta-shara on or not. - Please, let him know that I would like to refer him to genetic consultation for HOCM - I have also entered orders for labs: to do now, or whenever he can. Not urgent, let's say within next 1-3 months (Trop, NT-proBNP, A1c). I saw he just had labs 2 days ago. - I had ordered a Holter monitor in March. Still not done. Please, help him being scheduled for these 3 things. Ericka Shaffer Called patient. He DID take metoprolol prior to his stress echo. I let him know Dr. Levin referred him to genetic consultation for HOCM. I also let him know to please complete labs and holter monitor. He stated it will be difficult to come to [place] for holter monitor pickup/placement, so I let him know I will ask Dr. Levin about a Zio Patch, which can be mailed to him. I will follow up with Dr. Levin. Marita Elizondo RN [facility] 04-30-2024 Miscellaneous Notes ----- Message from Deena Levin-MD Dominic sent at 04/30/2024 11:44 AM EDT ----- I called patient's cell phone but didn't talk with him (AM). Please, let patient know I have reviewed his stress echo: there is some thickness of the heart and obstruction with stress but he did great. I would like to know if he was instructed to hold his Metoprolol for the test? I think I had told him to NOT HOLD it. What did he do? I just would like to know if gradient occurred with beta-shara on or not. - Please, let him know that I would like to refer him to genetic consultation for HOCM - I have also entered orders for labs: to do now, or whenever he can. Not urgent, let's say within next 1-3 months (Trop, NT-proBNP, A1c). I saw he just had labs 2 days ago. - I had ordered a Holter monitor in March. Still not done. Please, help him being scheduled for these 3 things. Ericka Shaffer Called patient. He DID take metoprolol prior to his stress echo. I let him know Dr. Levin referred him to genetic consultation for HOCM. I also let him know to please complete labs and holter monitor. He stated it will be difficult to come to [place] for holter monitor pickup/placement, so I let him know I will ask Dr. Levin about a Zio Patch, which can be mailed to him. I will follow up with DrWillie Elizondo RN documented in this encounter [facility] 04-30-2024 Note HNO ID: [id number] Author: CARLOS SYLVESTER MD Service: ? Author Type: Physician Type: Procedures Filed: 05/27/2024 16:43 Note Text: Patient Name: Martin Henson : 1955 Ordering Provider: DEENA FRANCOIS Indication: I42.1 Obstructive hypertrophic cardiomyopathy Type of Monitor: Extended Monitoring-Zio Patch Enrollment Dates: 05/05/2024-05/19/2024 IRHYTHM FINDINGS: Patient had a min HR of 46 bpm, max HR of 174 bpm, and avg HR of 75 bpm. Predominant underlying rhythm was Sinus Rhythm. 4 Ventricular Tachycardia runs occurred, the run with the fastest interval lasting 4 beats with a max rate of 162 bpm, the longest lasting 15 beats with an avg rate of 140 bpm. 27 Supraventricular Tachycardia runs occurred, the run with the fastest interval lasting 5 beats with a max rate of 174 bpm, the longest lasting 18 beats with an avg rate of 100 bpm. Isolated SVEs were rare (<1.0%), SVE Couplets were rare (<1.0%), and SVE Triplets were rare (<1.0%). Isolated VEs were rare (<1.0%, 6189), VE Couplets were rare (<1.0%, 26), and VE Triplets were rare (<1.0%, 7). [facility] 04-27-2024 Telephone encounter Note Spoke with patient regarding reminder for stress test tomorrow and given instructions and reviewed to take all medications including metoprolol as normal. [facility] 04-27-2024 Miscellaneous Notes Spoke with patient regarding reminder for stress test tomorrow and given instructions and reviewed to take all medications including metoprolol as normal. documented in this encounter [facility] 04-23-2024 Telephone encounter Note Excellent numbers. No change if he feels well. Thanks AH Messaged patient Lester Lewis RN [facility] 04-23-2024 Miscellaneous Notes Excellent numbers. No change if he feels well. Thanks AH Messaged patient Lester Lewis RN April 20, 2024 Patient Contact Number: [phone] (home) [phone] (work) Patient last seen within the last year: Yes Date of last office visit: 03/25/24 Reason For Call: Blood Pressure Changes Patient called to give an update on his Blood Pressures. AM PM 8/ 128/85 117/84 8/5 116/84 114/81 8/6 122/83 ` 119/81 8/7 116/84 104/76 8/8 121/81 133/92 8/9 114/79 106/70 8/10 120/85 133/87 His BP machine said he had an irregular HR a few times. He's feeling pretty good, occasional tiredness. Physician: Deena Francois MD Patient was informed that non-urgent calls may be returned within the next three business days. Yes Garima Garcia documented in this encounter [facility] 04-20-2024 Telephone encounter Note April 20, 2024 Patient Contact Number: [phone] (home) [phone] (work) Patient last seen within the last year: Yes Date of last office visit: 03/25/24 Reason For Call: Blood Pressure Changes Patient called to give an update on his Blood Pressures. AM PM 8/ 128/85 117/84 8/ 116/84 114/81 8/6 122/83 ` 119/81 87 116/84 104/76 8/8 121/81 133/92 8/ 114/79 106/70 8/10 120/85 133/87 His BP machine said he had an irregular HR a few times. He's feeling pretty good, occasional tiredness. Physician: Deena Francois MD Patient was informed that non-urgent calls may be returned within the next three business days. Yes Garima Garcia [facility] 04-01-2024 Telephone encounter Note Images from the original note were not included. Deena Francois MD P [facility] Clinical Nurse Phone Pool Please, let Ross know that I have seen his Echo: it is better but his LV is very muscular and still with mid-cavity mild obstruction. I would like him to be on a medication Camzyos but he does not qualify quite yet. I need to have a stress echo done first. HE SHOULD KEEP TAKING HIS METOPROLOL for the stress test. I also ordered a 48-hr Holter. Thank you to let him know. Messaged patient with information and instructions from Dr. Levin. Marita Elizondo RN [facility] 04-01-2024 Miscellaneous Notes Images from the original note were not included. Deena Francois MD P [facility] Clinical Nurse Phone Pool Please, let Ross know that I have seen his Echo: it is better but his LV is very muscular and still with mid-cavity mild obstruction. I would like him to be on a medication Camzyos but he does not qualify quite yet. I need to have a stress echo done first. HE SHOULD KEEP TAKING HIS METOPROLOL for the stress test. I also ordered a 48-hr Holter. Thank you to let him know. Messaged patient with information and instructions from Dr. Levin. Marita Elizondo RN documented in this encounter [facility] 03-25-2024 Instructions Edmund Allen MD - 03/25/2024 3:09 PM EDT - Please obtain blood pressure monitor, I recommend [employer] blood pressure monitor (arm, not wrist) cuff documented in this encounter [facility] 03-25-2024 Note HNO ID: [id number] Author: DEENA FRANCOIS MD Service: ? Author Type: Physician Type: Progress Notes Filed: 06/05/2024 10:41 Note Text: [facility] [place] [facility] Department of Cardiovascular Medicine SECTION OF CLINICAL CARDIOLOGY OUTPATIENT VISIT DATE March 25, 2024 OUTPATIENT VISIT TYPE ESTABLISHED PRIMARY CARE PHYSICIAN: ABDIEL MATHEWS [address] [place] [address] REFERRING PHYSICIAN: Deena Francois MD [address] [place] [address] CHIEF COMPLAINT: Follow up HISTORY OF PRESENT ILLNESS: Mr. Henson is a 68 year old male who presents today for a cardiovascular medicine follow-up visit. Last office visit 01/08/24: H/O HTN, HLP, obesity (BMI 31.1) Mr. Henson is a 68 year old male with on BAV and root dilation, s/p AVR (Inspiris) and aortoplasty of root in Jul 2023. Went to rehab. Feels great, lost weight ~ 6 lbs. Asymptomatic. Today, mild HTN. Check numbers at home and have device checked at the pharmacy. Aortic root stable at 45 mm on CTA today Echo shows severe LVH with mid-cavity obstruction. Likely secondary LVH due to +HTN (cf cardiac MRI pre-op), and EF ~70%. PLAN AND RECOMMENDATIONS: - Increase Metoprolol succinate to 100 mg twice a day. Goal is to get HR around 60 bpm at rest. - Blood pressure is 145/90 today with HR 84 bpm. Increase Zestril 5 mg to twice per day. Check numbers at home and have device checked at the pharmacy. - Schedule echocardiogram in ~6 weeks months to reassess gradients and follow up in clinic. Today 03/25/24: Mr. Henson presents today accompanied by his . States he has been doing well. Has not been checking his blood pressure often, does not have a cuff yet but has checked at the pharmacy infrequently. Has lost 5 pounds since last visit. Has been active outside. Denies any current complaints or concerns. He denies chest pain, shortness of breath, orthopnea, cough, edema, palpitations, PND, lightheadedness or syncope. PAST CARDIAC HISTORY: See above PAST MEDICAL HISTORY Diagnosis Date Aortic stenosis Bicuspid aortic valve Hemorrhoids HLD (hyperlipidemia) HTN (hypertension) Primary cardiomyopathy (HCC) PAST SURGICAL HISTORY Procedure Laterality Date ARTHROPLASTY GLENOHUMRL JT HEMIARTHROPLASTY 07/2006 Arthroplasty, shoulder: torn rotator cuff (right) COLONOSCOPY FLX DX W/COLLJ SPEC WHEN PFRMD 04/09/11 TONSILLECTOMY PRIMARY/SECONDARY Tonsillectomy XCAPSL CTRC RMVL INSJ IO LENS PROSTH W/O ECP 2006 Cataract Removal bilateral SOCIAL HISTORY Social History Tobacco Use Smoking status: Never Smokeless tobacco: Current Types: Snuff Vaping Use Vaping Use: Never used Substance Use Topics Alcohol use: Yes Comment: very rarely Drug use: No FAMILY HISTORY Problem Relation Age of Onset Cancer Mother breast Arthritis Mother Hypertension Mother Heart Father atrial fib Stroke Father ? A-fib related Hypertension Sister Hypertension Brother Colon Cancer Other none Prostate Cancer Other none Diabetes Other none ALLERGIES: ALLERGIES No Known Allergies MEDICATIONS: empagliflozin (JARDIANCE) 10 mg tablet Take 1 tablet by mouth daily with breakfast. lisinopril (ZESTRIL) 5 mg tablet Take 1 tablet by mouth two times a day. metoprolol succinate ER (TOPROL XL) 100 mg Take 2 tablets by mouth daily with breakfast AND 1 tablet daily at bedtime. omeprazole (PRILOSEC) 40 mg capsule Take 1 capsule by mouth once daily. aspirin, enteric coated (ASPIRIN, ENTERIC COATED) 81 mg EC tablet Take 1 tablet by mouth once daily. atorvastatin (LIPITOR) 20 mg tablet Take 1 tablet by mouth daily at bedtime. cetirizine (ZYRTEC) 10 mg tablet Take 1 tablet by mouth once daily as needed for cold/allergy symptoms. acetaminophen (TYLENOL) 325 mg tablet Take 2 tablets by mouth every 6 hours as needed (for mild surgical pain). MULTIVITAMIN TAB Take one(1) tablet daily. REVIEW OF SYSTEMS: GENERAL: Negative for: Unintentional weight loss or gain, Fever or Chills, Weakness and Sleep difficulties. PHYSICAL EXAMINATION: BP 147/86 (BP Site: Left Arm) Pulse 61 Ht 185.4 cm (6' 1) Wt 107 kg (236 lb) SpO2 100% BMI 31.14 kg/m? GEN: Awake, alert, in no acute distress HEENT: PERRLA, EOMI Neck: supple, no carotid bruits, no JVD LUNGS: Regular WOB, CTAB CV: RRR, normal S1/S2, 3/6 DHARMESH over aortic area with extension to apex ABD: Abdomen soft, non-tender, non-distended. Normoactive bowel sounds. No rebound or guarding. No HJR EXT: No edema, warm NEURO: AANDOx3 CARDIOVASCULAR MEDICINE TESTING: EKG 03/25/24 Last ECHO Result Conclusion ECHO Collected: 01/08/2024 1:33 PM (Final result) Impression: CONCLUSIONS: - Technically difficult exam due to body habitus. - Exam indication: S/P AVR, Ascending Ao repair (07/2023) - The left ventri (more content not included)... [facility] 03-25-2024 History of Present illness Narrative Images from the original note were not included. Heart, Vascular and Thoracic [place] [facility] Department of Cardiovascular Medicine SECTION OF CLINICAL CARDIOLOGY OUTPATIENT VISIT DATE March 25, 2024 OUTPATIENT VISIT TYPE ESTABLISHED PRIMARY CARE PHYSICIAN: ABDIEL MATHEWS [address] [place] [address] REFERRING PHYSICIAN: Deena Francois MD [address] [address] CHIEF COMPLAINT: Follow up HISTORY OF PRESENT ILLNESS: Mr. Henson is a 68 year old male who presents today for a cardiovascular medicine follow-up visit. Last office visit 01/08/24 Mr. Henson is a 68 year old male with on BAV and root dilation, s/p AVR (Inspiris) and aortoplasty of root in Jul 2023. Went to rehab. Feels great, lost weight ~ 6 lbs. Asymptomatic. Today, mild HTN. Check numbers at home and have device checked at the pharmacy. Aortic root stable at 45 mm on CTA today Echo shows severe LVH with mid-cavity obstruction. Likely secondary LVH due to +HTN (cf cardiac MRI pre-op), and EF ~70%. PLAN AND RECOMMENDATIONS: - Increase Metoprolol succinate to 100 mg twice a day. Goal is to get HR around 60 bpm at rest. - Blood pressure is 145/90 today with HR 84 bpm. Increase Zestril 5 mg to twice per day. Check numbers at home and have device checked at the pharmacy. - Schedule echocardiogram in ~6 weeks months to reassess gradients and follow up in clinic. Today Mr. Henson presents today accompanied by his . States he has been doing well. Has not been checking his blood pressure often, does not have a cuff yet but has checked at the pharmacy infrequently. Has lost 5 pounds since last visit. Has been active outside. Denies any current complaints or concerns. He denies chest pain, shortness of breath, orthopnea, cough, edema, palpitations, PND, lightheadedness or syncope. PAST CARDIAC HISTORY: See above PAST MEDICAL HISTORY Diagnosis Date Aortic stenosis Bicuspid aortic valve Hemorrhoids HLD (hyperlipidemia) HTN (hypertension) Primary cardiomyopathy (HCC) PAST SURGICAL HISTORY Procedure Laterality Date ARTHROPLASTY GLENOHUMRL JT HEMIARTHROPLASTY 07/2006 Arthroplasty, shoulder: torn rotator cuff (right) COLONOSCOPY FLX DX W/COLLJ SPEC WHEN PFRMD 04/09/11 TONSILLECTOMY PRIMARY/SECONDARY <AGE 12 Tonsillectomy XCAPSL CTRC RMVL INSJ IO LENS PROSTH W/O ECP 2006 Cataract Removal bilateral SOCIAL HISTORY Social History Tobacco Use Smoking status: Never Smokeless tobacco: Current Types: Snuff Vaping Use Vaping Use: Never used Substance Use Topics Alcohol use: Yes Comment: very rarely Drug use: No FAMILY HISTORY Problem Relation Age of Onset Cancer Mother breast Arthritis Mother Hypertension Mother Heart Father atrial fib Stroke Father ? A-fib related Hypertension Sister Hypertension Brother Colon Cancer Other none Prostate Cancer Other none Diabetes Other none ALLERGIES: ALLERGIES No Known Allergies MEDICATIONS: empagliflozin (JARDIANCE) 10 mg tablet Take 1 tablet by mouth daily with breakfast. lisinopril (ZESTRIL) 5 mg tablet Take 1 tablet by mouth two times a day. metoprolol succinate ER (TOPROL XL) 100 mg Take 2 tablets by mouth daily with breakfast AND 1 tablet daily at bedtime. omeprazole (PRILOSEC) 40 mg capsule Take 1 capsule by mouth once daily. aspirin, enteric coated (ASPIRIN, ENTERIC COATED) 81 mg EC tablet Take 1 tablet by mouth once daily. atorvastatin (LIPITOR) 20 mg tablet Take 1 tablet by mouth daily at bedtime. cetirizine (ZYRTEC) 10 mg tablet Take 1 tablet by mouth once daily as needed for cold/allergy symptoms. acetaminophen (TYLENOL) 325 mg tablet Take 2 tablets by mouth every 6 hours as needed (for mild surgical pain). MULTIVITAMIN TAB Take one(1) tablet daily. REVIEW OF SYSTEMS: GENERAL: Negative for: Unintentional weight loss or gain, Fever or Chills, Weakness and Sleep difficulties. PHYSICAL EXAMINATION: BP 147/86 (BP Site: Left Arm) Pulse 61 Ht 185.4 cm (6' 1) Wt 107 kg (236 lb) SpO2 100% BMI 31.14 kg/m GEN: Awake, alert, in no acute distress HEENT: PERRLA, EOMI Neck: supple, no carotid bruits, no JVD LUNGS: Regular WOB, CTAB CV: RRR, normal S1/S2, 3/6 DHARMESH over aortic area with extension to apex ABD: Abdomen soft, non-tender, non-distended. Normoactive bowel sounds. No rebound or guarding. No HJR EXT: No edema, warm NEURO: A&Ox3 CARDIOVASCULAR MEDICINE TESTING: EKG 03/25/24 Last ECHO Result Conclusion ECHO Collected: 01/08/2024 1:33 PM (Final result) Impression: CONCLUSIONS: - Technically difficult exam due to body habitus. - Exam indication: S/P AVR, Ascending Ao repair (07/2023) - The left ventricle is small. There is severe concentric left ventricular hypertrophy. Left ventricular systolic function is normal. EF = 70 5% (2D 4-ch.) Grade I left ventricular diastolic dysfunction. - The right ventricle is normal in size. Right ventricular systolic function is normal. - The visualized aorta is dilated with a maximal dimension of 4.1 cm. - Inspiris prosthetic aortic valve (size #25). There is no aortic valve regurgitation. The peak gradient is 33 mmHg, the mean gradient is 18 mmHg and the dimensionless valve index is 0.62. - There is an intracavitary gradient of ~102mmHg from severe concentric LVH (Clip #78). There is no obvious SANJEEV. - Exam was compared with the prior CC echocardiographic exam performed on 07/29/2023. First postop TTE. * * * Final * * * Last EKG Result Conclusion ECG COMPLETE Collected: 03/25/2024 1:14 PM (Preliminary result) Impression: SINUS BRADYCARDIA LEFT VENTRICULAR HYPERTROPHY WITH REPOLARIZATION ABNORMALITY ( R in aVL , Sokolow-Salcedo ) ABNORMAL ECG Last CT Result Conclusion CTA CHEST (GATED) W IVCON Exam End: 01/09/2024 7:42 AM (Final result) Impression: IMPRESSION: AORTIC VALVE: AVR with bioprosthetic valve, which appears well seated. No leaflet calcification. AORTA: Aortoplasty no evidence of post-surgical complications.expected surgical changes surrounding the repaired segments of the aorta. Normal size repaired aorta. The remaining segments of the thoracic aorta are normal in size No acute aortic pathology. AORTIC ROOT: 4.5 cm measured [id number] No significant interval change mid ASCENDING THORACIC AORTA: 3.9 cm Interval decrease in size, prior diameter 4.5 cm CORONARY ANATOMY: normal origin of the coronary arteries. Mild calcified atherosclerotic changes of the coronary arteries. However, the current study is not optimized for coronary assessment. Box Toe Stitcher: REINALDO Transcribe Date/Time: Jan 09 2024 8:06A Dictated by : TORIN MOFFETT MD This examination was interpreted and the report reviewed and electronically signed by: TORIN MOFFETT MD on Jan 09 2024 10:43AM EST Last MRI Result Conclusion MRA CHEST CARDIOVASCULAR WO IVCON Exam End: 07/24/2023 5:20 PM (Final result) Impression: IMPRESSION: 1. Bicuspid aortic valve with likely fusion of the right and left coronary cusp with associated signal dephasing suggestive of significant aortic stenosis, could correlate with echocardiographic findings. There is concomitant moderate aortic regurgitation (regurgitant volume 21 mL, regurgitant fraction 25%). 2. The left ventricle is normal in size (LV EDVI = 93 mL/m ), with severe concentric wall thickening (mid-basal IVS measuring up to 2.2 cm), and normal systolic function (LVEF = 56%). Delayed imaging is slightly suboptimal quality with suggestion of mild RV insertion point LGE, though without convincing evidence to suggest a diffuse infiltrative process. T1 mapping/ECV were not performed. 3. The right ventricle is normal in size (RV EDVI = 64 mL/m ), with normal systolic function (RVEF = 61%) 4. There is moderate ectasia of the aortic root (4.6 cm), and mid ascending aorta (4.5 cm). The remainder of the thoracic aorta is normal in course, contour, and caliber, without acute pathology. 5. There is trace to mild qualitative mitral valve regurgitation. 6. The main PA is dilated 3.5 cm. * * * Final * * * RP Box Toe Stitcher: ZAC Transcribe Date/Time: Jul 24 2023 4:11P Dictated by : ANN LEACH MD This examination was interpreted and the report reviewed and electronically signed by: ANN LEACH MD on Jul 25 2023 10:36AM EST I have personally reviewed the ECG and Cardiac CT Angiography. IMPRESSION: Mr. Henson is a 68 year old male with on BAV and root dilation, s/p AVR (Inspiris) and aortoplasty of root in Jul 2023. He feels good, continues to lose weight and remains active. Asymptomatic. Today, continued mild HTN, has not obtained cuff to measure at home. Aortic root 45 mm on CTA 01/09/24 Echo 01/08/24 shows severe LVH with mid-cavity obstruction. Likely secondary LVH due to +HTN (cf cardiac MRI pre-op), and EF ~70%. PLAN AND RECOMMENDATIONS: - change lisinopril to telmisartan 40mg daily for anti-metalloprotease activity and better HTN control - obtain BP monitor and keep written log at home - continue metoprolol succinate 100mg BID - schedule for repeat echocardiogram in ~5 months (ordered) - repeat CTA in 1 year - follow up in 1 year - avoid heavy lifting >50 pounds Edmund Allen MD Resident PGY-3 [facility] 03/25/2024 CONTACT INFORMATION: Deena Francois MD documented in this encounter [facility] 03-18-2024 Telephone encounter Note Sent to nurse pool in error. There is already a request being processed for this . Please disregard [facility] 03-18-2024 Miscellaneous Notes Sent to nurse pool in error. There is already a request being processed for this . Please disregard Patient used MyChart to request a refill on the medication(s) below: Requested Prescriptions Pending Prescriptions Disp Refills empagliflozin (JARDIANCE) 10 mg tablet 90 tablet 1 Sig: Take 1 tablet by mouth daily with breakfast. PHARMACY NAME [facility] / PHONE NUMBER: [phone] Pickup RX Physician's Name: Deena Francois MD Last seen in office: 01/08/2024 If last appointment greater than one year or no follow up scheduled, sent to schedulers Ashley Yeh 03/18/2024 documented in this encounter [facility] 03-18-2024 Telephone encounter Note Patient used MyChart to request a refill on the medication(s) below: Requested Prescriptions Pending Prescriptions Disp Refills empagliflozin (JARDIANCE) 10 mg tablet 90 tablet 1 Sig: Take 1 tablet by mouth daily with breakfast. PHARMACY NAME [facility] ([place], [place]) / PHONE NUMBER: [phone] Pick RX Physician's Name: Deena Francois MD Last seen in office: 01/08/2024 If last appointment greater than one year or no follow up scheduled, sent to schedulers Ashley Yeh 03/18/2024 [facility] 03-13-2024 Telephone encounter Note Pharmacy electronic RX request to request a refill on the medication(s) below: Requested Prescriptions Pending Prescriptions Disp Refills empagliflozin (JARDIANCE) 10 mg tablet [Pharmacy Med Name: Jardiance 10 MG Oral Tablet] 90 tablet 3 Sig: Take 1 tablet by mouth daily with breakfast. PHARMACY NAME [facility] ([place], [place]) / PHONE NUMBER: [phone] Pickup RX Physician's Name: Deena Francois MD Last seen in office: 01/08/2024 If last appointment greater than one year or no follow up scheduled, sent to schedulers Ashley Yeh 03/13/2024 [facility] 03-13-2024 Miscellaneous Notes Pharmacy electronic RX request to request a refill on the medication(s) below: Requested Prescriptions Pending Prescriptions Disp Refills empagliflozin (JARDIANCE) 10 mg tablet [Pharmacy Med Name: Jardiance 10 MG Oral Tablet] 90 tablet 3 Sig: Take 1 tablet by mouth daily with breakfast. PHARMACY NAME [facility] [place]) / PHONE NUMBER: [phone] Pickup RX Physician's Name: Deena Francois MD Last seen in office: 01/08/2024 If last appointment greater than one year or no follow up scheduled, sent to schedulers Ashley Yeh 03/13/2024 documented in this encounter [facility] 01-08-2024 Instructions Deena Francois MD - 01/08/2024 4:01 PM EDT PLAN AND RECOMMENDATIONS: - Increase Metoprolol succinate to 100 mg twice a day. Goal is to get HR 60 bpm at rest. - Blood pressure is 145/90 today with HR 84 bpm. Increase Zestril 5 mg to twice per day. Check numbers at home and have device checked at the pharmacy. - Schedule echocardiogram in 2 months to reassess gradients documented in this encounter [facility] 01-08-2024 History of Present illness Narrative Images from the original note were not included. Heart, Vascular and Thoracic [place] [facility] Department of Cardiovascular Medicine SECTION OF CLINICAL CARDIOLOGY OUTPATIENT VISIT DATE January 08, 2024 OUTPATIENT VISIT TYPE ESTABLISHED PRIMARY CARE PHYSICIAN: ABDIEL MATHEWS [address] [place] [address] REFERRING PHYSICIAN: Deena Francois MD [address] [id number] CHIEF COMPLAINT: None, has just completed cardiac Rehab, good BPs in Rehab HISTORY OF PRESENT ILLNESS: Mr. Henson is a 68 year old male who presents today for a cardiovascular medicine follow-up visit , last seen on 09/18/2023: ----- H. 67 yo with due to BAV, and pre-op findings of severe concentric LV hypertrophy - more prominent on septal wall, without hemodynamic obstruction at baseline but with small gradient of 17 mmHg with Valsalva maneuver- and severe /BAV/ Ao root dilation at 4.5-4.6 cm cm at the sinuses and distal ascending aorta levels. There is MAC with mild MS and MR based on TTE+MRI. Mr. Henson is a 67 year old male who had AVR (INSPIRIS #25) and aortoplasty of root on 07/29/23. Has LVH++(diastolic dysfunction) Now mild right sided CP, no other symptome, feels good, actually better than before. Exam: no CHF, beautiful sternal scar, lungs OK, Aortic valve systolic murmur 2-3/6 as expected. ECG: NSR with LV hypertrophy and strain, 79 bpm PLAN AND RECOMMENDATIONS: no change in current meds - Start Cardiac Rehab - Always avoid heavy lifting , nothing above 35-40 pounds - Keep you Blood Pressure lower between 100 and 135: start Lisinopril 5 mg/day and Jardiance 10 - F/U in 3 months. He denies chest pain, shortness of breath, orthopnea, cough, edema, palpitations, PND, lightheadedness or syncope. PAST CARDIAC HISTORY: None, see above PAST MEDICAL HISTORY Diagnosis Date Aortic stenosis Bicuspid aortic valve Hemorrhoids HLD (hyperlipidemia) HTN (hypertension) Primary cardiomyopathy (HCC) PAST SURGICAL HISTORY Procedure Laterality Date ARTHROPLASTY GLENOHUMRL JT HEMIARTHROPLASTY 07/2006 Arthroplasty, shoulder: torn rotator cuff (right) COLONOSCOPY FLX DX W/COLLJ SPEC WHEN PFRMD 04/09/11 TONSILLECTOMY PRIMARY/SECONDARY <AGE 12 Tonsillectomy XCAPSL CTRC RMVL INSJ IO LENS PROSTH W/O ECP 2006 Cataract Removal bilateral SOCIAL HISTORY Social History Tobacco Use Smoking status: Never Smokeless tobacco: Current Types: Snuff Vaping Use Vaping Use: Never used Substance Use Topics Alcohol use: Yes Comment: very rarely Drug use: No FAMILY HISTORY Problem Relation Age of Onset Cancer Mother breast Arthritis Mother Hypertension Mother Heart Father atrial fib Stroke Father ? A-fib related Hypertension Sister Hypertension Brother Colon Cancer Other none Prostate Cancer Other none Diabetes Other none ALLERGIES: ALLERGIES No Active Allergies MEDICATIONS: lisinopril (ZESTRIL) 5 mg tablet Take 1 tablet by mouth once daily. empagliflozin (JARDIANCE) 10 mg tablet Take 1 tablet by mouth daily with breakfast. doxycycline (VIBRA-TABS) 100 mg tablet Take 1 tablet by mouth two times a day. (Patient not taking: Reported on 09/18/2023) omeprazole (PRILOSEC) 40 mg capsule Take 1 capsule by mouth once daily. aspirin, enteric coated (ASPIRIN, ENTERIC COATED) 81 mg EC tablet Take 1 tablet by mouth once daily. atorvastatin (LIPITOR) 20 mg tablet Take 1 tablet by mouth daily at bedtime. cetirizine (ZYRTEC) 10 mg tablet Take 1 tablet by mouth once daily as needed for cold/allergy symptoms. acetaminophen (TYLENOL) 325 mg tablet Take 2 tablets by mouth every 6 hours as needed (for mild surgical pain). furosemide (LASIX) 40 mg tablet Take 1 tablet by mouth once daily for 7 days. (Patient not taking: Reported on 09/18/2023) metoprolol succinate ER (TOPROL XL) 100 mg Take 1.5 tablets by mouth daily with breakfast AND 1 tablet daily at bedtime. docusate sodium (COLACE) 100 mg capsule Take 1 capsule by mouth two times a day. (Patient not taking: Reported on 09/18/2023) MULTIVITAMIN TAB Take one(1) tablet daily. REVIEW OF SYSTEMS: GENERAL: Negative for: Weight loss or gain, Fever or Chills, Weakness and Sleep difficulties. HEENT: Negative for: Headache, Impaired Vision, Glasses, Hearing Impairment, Ringing in Ears, Nosebleeds, Poor dental care, Bleeding Gums, Dentures NECK: Negative for: Swelling, Pain, Stiffness RESPIRATORY: Negative for: Cough, Blood in Sputum, Shortness of breath, Wheezing, Apnea GASTROINTESTINAL: Negative for: Trouble swallowing, Heartburn, Change in bowel habits, Blood in stool, Dark black stools MUSCULOSKELETAL: Negative for: Muscle or joint pain, Stiffness , Joint swelling NEUROLOGIC/PSYCHIATRIC: Negative for: Weakness, Paralysis, Numbness, Tingling, Tremor, Nervousness, Depressed mood, Memory loss SKIN: Negative for: Rashes, Itching HEMATOLOGICAL/LYMPHATIC: Negative for: Easy bruising , Easy bleeding ENDOCRINE: Negative for: Heat or cold intolerance, Excessive sweating, Frequent urination, Frequent thirst PHYSICAL EXAMINATION: BP 145/90 - Wt 241 lb - Pulse 84 - SpO2 99% - Resp 14 - BMI 31.80 kg/m General: Well appearing, in no acute distress. Skin: No clubbing, no cyanosis. Eyes: Extra ocular movements intact Oropharynx: Teeth in good repair. Neck: No jugular venous distention, no carotid bruits, carotids have a normal upstroke, no palpable thyromegaly. Lungs: Clear to auscultation bilaterally, no wheezing or rhonchi. Heart: Regular rhythm, PMI not displaced, S1, S2 normal, 2/6 systolic AV murmur. Abdomen: Soft, nontender, bowel sounds normal, no palpable organomegaly, no bruits. Extremities: No peripheral edema . Grade 2/4 distal pulses bilaterally. Neuro: Oriented to person, place and time, alert, cooperative, gait coordinated. CARDIOVASCULAR MEDICINE TESTING: Echocardiogram today: see below, intraventricular hemodynamic obstruction-severe. TTE 01/08/2024: CONCLUSIONS: - Technically difficult exam due to body habitus. - Exam indication: S/P AVR, Ascending Ao repair (07/2023) - The left ventricle is small. There is severe concentric left ventricular hypertrophy. Left ventricular systolic function is normal. EF = 70 5% (2D 4-ch.) Grade I left ventricular diastolic dysfunction. - The right ventricle is normal in size. Right ventricular systolic function is normal. - The visualized aorta is dilated with a maximal dimension of 4.1 cm. - Inspiris prosthetic aortic valve (size #25). There is no aortic valve regurgitation. The peak gradient is 33 mmHg, the mean gradient is 18 mmHg and the dimensionless valve index is 0.62. - There is an intracavitary gradient of ~102mmHg from severe concentric LVH (Clip #78). There is no obvious SANJEEV. - Exam was compared with the prior echocardiographic exam performed on 07/29/2023. First postop TTE. Last ECHO Result Conclusion ECHO Collected: 07/24/2023 8:02 AM (Final result) Impression: CONCLUSIONS: - Exam indication: Pre- op AVR, Myectomy - The left ventricle is normal in size. There is severe concentric left ventricular hypertrophy. Left ventricular systolic function is normal. EF = 63 5% (2D biplane) - The right ventricle is mildly dilated. Right ventricular systolic function is normal. - The visualized aorta is dilated with a maximal dimension of 4.5 cm. - There is moderate (2+) aortic valve regurgitation due to sclerosis. There is severe aortic valve stenosis caused by calcified valve and restricted opening. AV area is 0.93 cm (0.39 cm /m ) by continuity, VTI. The peak gradient is 103 mmHg, the mean gradient is 55 mmHg and the dimensionless valve index is 0.24. - There is no SANJEEV, there is LV cavity obliteration from severe LVH- mid cavitary gradient has a peak of 17mmHg with valsalva (Clip #115). - The patient has not had a prior CC echocardiographic exam for comparison. * * * Final * * * Last EKG Result Conclusion ECG COMPLETE Collected: 09/18/2023 1:51 PM (Final result) Impression: NORMAL SINUS RHYTHM LEFT VENTRICULAR HYPERTROPHY WITH REPOLARIZATION ABNORMALITY ( Sokolow-Salcedo ) POSSIBLE INFERIOR MYOCARDIAL INFARCTION , AGE UNDETERMINED ABNORMAL ECG Confirmed by ADEOLA EMERSON, BAIRON ([id number]) on 09/29/2023 5:36:55 PM Last MRI Result Conclusion MRA CHEST CARDIOVASCULAR WO IVCON Exam End: 07/24/2023 5:20 PM (Final result) Impression: IMPRESSION: 1. Bicuspid aortic valve with likely fusion of the right and left coronary cusp with associated signal dephasing suggestive of significant aortic stenosis, could correlate with echocardiographic findings. There is concomitant moderate aortic regurgitation (regurgitant volume 21 mL, regurgitant fraction 25%). 2. The left ventricle is normal in size (LV EDVI = 93 mL/m ), with severe concentric wall thickening (mid-basal IVS measuring up to 2.2 cm), and normal systolic function (LVEF = 56%). Delayed imaging is slightly suboptimal quality with suggestion of mild RV insertion point LGE, though without convincing evidence to suggest a diffuse infiltrative process. T1 mapping/ECV were not performed. 3. The right ventricle is normal in size (RV EDVI = 64 mL/m ), with normal systolic function (RVEF = 61%) 4. There is moderate ectasia of the aortic root (4.6 cm), and mid ascending aorta (4.5 cm). The remainder of the thoracic aorta is normal in course, contour, and caliber, without acute pathology. 5. There is trace to mild qualitative mitral valve regurgitation. 6. The main PA is dilated 3.5 cm. * * * Final * * * RP Box Toe Stitcher: [employer] Transcribe Date/Time: Jul 24 2023 4:11P Dictated by : ANN LEACH MD This examination was interpreted and the report reviewed and electronically signed by: ANN LEACH MD on Jul 25 2023 10:36AM EST CTA 01/08/2024: IMPRESSION: AORTIC VALVE: AVR with bioprosthetic valve, which appears well seated. No leaflet calcification. AORTA: Aortoplasty no evidence of post-surgical complications.expected surgical changes surrounding the repaired segments of the aorta. Normal size repaired aorta. The remaining segments of the thoracic aorta are normal in size No acute aortic pathology. AORTIC ROOT: 4.5 cm measured [id number] No significant interval change mid ASCENDING THORACIC AORTA: 3.9 cm Interval decrease in size, prior diameter 4.5 cm CORONARY ANATOMY: normal origin of the coronary arteries. Mild calcified atherosclerotic changes of the coronary arteries. However, the current study is not optimized for coronary assessment. Box Toe Stitcher: [facility] Transcribe Date/Time: Jan 09 2024 8:06A Dictated by : TORIN MOFFETT MD I have personally reviewed the Echocardiogram and Cardiac CT Angiography. 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 Severe LVH, normal EF, mild 1-2+, eccentric MR anteriorly directed. - Mid-LV hemodynamic gradient of 71 mmHg at baseline, and 102 mmHg with valsalva maneuver. - AV fine. No other concern. CTA result pending at the time of my review, images reviewed: no concern with Ao root repair. Report was added above. IMPRESSION: Mr. Henson is a 68 year old male with on BAV and root dilation, s/p AVR (Inspiris) and aortoplasty of root in Jul 2023. Went to rehab. Feels great, lost weight ~ 6 lbs. Asymptomatic. Today, mild HTN. Check numbers at home and have device checked at the pharmacy. Aortic root stable at 45 mm on CTA today Echo shows severe LVH with mid-cavity obstruction. Likely secondary LVH due to +HTN (cf cardiac MRI pre-op), and EF ~70%. PLAN AND RECOMMENDATIONS: - Increase Metoprolol succinate to 100 mg twice a day. Goal is to get HR around 60 bpm at rest. - Blood pressure is 145/90 today with HR 84 bpm. Increase Zestril 5 mg to twice per day. Check numbers at home and have device checked at the pharmacy. - Schedule echocardiogram in ~6 weeks months to reassess gradients and follow up in clinic. CONTACT INFORMATION: Deena Francois MD documented in this encounter [facility] 01-08-2024 Note HNO ID: [id number] Author: DEENA FRANCOIS MD Service: ? Author Type: Physician Type: Progress Notes Filed: 03/27/2024 10:17 Note Text: [facility] [place] [facility] Department of Cardiovascular Medicine SECTION OF CLINICAL CARDIOLOGY OUTPATIENT VISIT DATE January 08, 2024 OUTPATIENT VISIT TYPE ESTABLISHED PRIMARY CARE PHYSICIAN: ABDIEL MATHEWS [address] [id number] REFERRING PHYSICIAN: Deena Francois MD [id number] [id number] CHIEF COMPLAINT: None, has just completed cardiac Rehab, good BPs in Rehab HISTORY OF PRESENT ILLNESS: Mr. Henson is a 68 year old male who presents today for a cardiovascular medicine follow-up visit , last seen on 09/18/2023: ----- Mr H. 67 yo with due to BAV, and pre-op findings of severe concentric LV hypertrophy - more prominent on septal wall, without hemodynamic obstruction at baseline but with small gradient of 17 mmHg with Valsalva maneuver- and severe /BAV/ Ao root dilation at 4.5-4.6 cm cm at the sinuses and distal ascending aorta levels. There is MAC with mild MS and MR based on TTE+MRI. Mr. Henson is a 67 year old male who had AVR (INSPIRIS #25) and aortoplasty of root on 07/29/23. Has LVH++(diastolic dysfunction) Now mild right sided CP, no other symptome, feels good, actually better than before. Exam: no CHF, beautiful sternal scar, lungs OK, Aortic valve systolic murmur 2-6 as expected. ECG: NSR with LV hypertrophy and strain, 79 bpm PLAN AND RECOMMENDATIONS: no change in current meds - Start Cardiac Rehab - Always avoid heavy lifting , nothing above 35-40 pounds - Keep you Blood Pressure lower between 100 and 135: start Lisinopril 5 mg/day and Jardiance 10 - F/U in 3 months. He denies chest pain, shortness of breath, orthopnea, cough, edema, palpitations, PND, lightheadedness or syncope. PAST CARDIAC HISTORY: None, see above PAST MEDICAL HISTORY Diagnosis Date Aortic stenosis Bicuspid aortic valve Hemorrhoids HLD (hyperlipidemia) HTN (hypertension) Primary cardiomyopathy (HCC) PAST SURGICAL HISTORY Procedure Laterality Date ARTHROPLASTY GLENOHUMRL JT HEMIARTHROPLASTY 07/2006 Arthroplasty, shoulder: torn rotator cuff (right) COLONOSCOPY FLX DX W/COLLJ SPEC WHEN PFRMD 04/09/11 TONSILLECTOMY PRIMARY/SECONDARY Tonsillectomy XCAPSL CTRC RMVL INSJ IO LENS PROSTH W/O ECP 2006 Cataract Removal bilateral SOCIAL HISTORY Social History Tobacco Use Smoking status: Never Smokeless tobacco: Current Types: Snuff Vaping Use Vaping Use: Never used Substance Use Topics Alcohol use: Yes Comment: very rarely Drug use: No FAMILY HISTORY Problem Relation Age of Onset Cancer Mother breast Arthritis Mother Hypertension Mother Heart Father atrial fib Stroke Father ? A-fib related Hypertension Sister Hypertension Brother Colon Cancer Other none Prostate Cancer Other none Diabetes Other none ALLERGIES: ALLERGIES No Active Allergies MEDICATIONS: lisinopril (ZESTRIL) 5 mg tablet Take 1 tablet by mouth once daily. empagliflozin (JARDIANCE) 10 mg tablet Take 1 tablet by mouth daily with breakfast. doxycycline (VIBRA-TABS) 100 mg tablet Take 1 tablet by mouth two times a day. (Patient not taking: Reported on 09/18/2023) omeprazole (PRILOSEC) 40 mg capsule Take 1 capsule by mouth once daily. aspirin, enteric coated (ASPIRIN, ENTERIC COATED) 81 mg EC tablet Take 1 tablet by mouth once daily. atorvastatin (LIPITOR) 20 mg tablet Take 1 tablet by mouth daily at bedtime. cetirizine (ZYRTEC) 10 mg tablet Take 1 tablet by mouth once daily as needed for cold/allergy symptoms. acetaminophen (TYLENOL) 325 mg tablet Take 2 tablets by mouth every 6 hours as needed (for mild surgical pain). furosemide (LASIX) 40 mg tablet Take 1 tablet by mouth once daily for 7 days. (Patient not taking: Reported on 09/18/2023) metoprolol succinate ER (TOPROL XL) 100 mg Take 1.5 tablets by mouth daily with breakfast AND 1 tablet daily at bedtime. docusate sodium (COLACE) 100 mg capsule Take 1 capsule by mouth two times a day. (Patient not taking: Reported on 09/18/2023) MULTIVITAMIN TAB Take one(1) tablet daily. REVIEW OF SYSTEMS: GENERAL: Negative for: Weight loss or gain, Fever or Chills, Weakness and Sleep difficulties. HEENT: Negative for: Headache, Impaired Vision, Glasses, Hearing Impairment, Ringing in Ears, Nosebleeds, Poor dental care, Bleeding Gums, Dentures NECK: Negative for: Swelling, Pain, Stiffness RESPIRATORY: Negative for: Cough, Blood in Sputum, Shortness of breath, Wheezing, Apnea GASTROINTESTINAL: Negative for: Trouble swallowing, Hea (more content not included)... [facility] 01-08-2024 History of Present illness Narrative Radiology Service Progress Note DATE OF SERVICE: January 08, 2024 TIME: 2:29 PM PATIENT WEIGHT: 242 LBS PATIENT IDENTITY VERIFICATION COMPLETED USING TWO (2) STANDARD IDENTIFIERS: Name and Date of confirmed by patient verbally. FALL SCREENING: Has the patient had 2 falls in the last year or 1 fall with injury or currently using an Ambulatory Assistive Device (Walker, Cane, Wheelchair, Crutches, etc.)? No PATIENT GENDER DATA: Male ALLERGIES: Reviewed and unchanged CONTRAST ALLERGY: No EXAM: CT -CONTRAST INDUCED NEPHROPATHY RISK FACTORS: Patient age > 60 years CREATININE: Creatinine Date Value Ref Range Status 08/08/2023 0.94 0.73 - 1.22 mg/dL Final 08/05/2023 0.95 0.73 - 1.22 mg/dL Final 08/04/2023 0.92 0.73 - 1.22 mg/dL Final Estimated Glomerular Filtration Rate Date Value Ref Range Status 08/08/2023 89 >=60 mL/min/1.73m Final Comment: Estimated Glomerular Filtration Rate (eGFR) is calculated using the 2020 CKD-EPI creatinine equation. This equation utilizes serum creatinine, sex, and age as parameters. The creatinine assay has traceable calibration to isotope dilution-mass spectrometry. Refer to KDIGO guidelines for clinical interpretation. In patients with unstable renal function, e.g. those with acute kidney injury, the eGFR may not accurately reflect actual GFR. P.O.C.T. RESULTS: POC done: Yes, See Lab Tab January 08, 2024 TREATMENT: N/A and No Hydration needed. IV SITE: Ambulatory: A peripheral IV was started in the Right antecubital site with a Angio cath: 20 gauge. and A Saline lock was inserted per protocol IV SITE APPEARANCE: Clean,Dry and Intact SIGNATURE: Maryjo Chirinos RN PATIENT NAME: Martin Henson DATE: January 08, 2024 TIME: 2:29 PM Radiology Service Progress Note PATIENT NAME: Martin Henson DATE OF SERVICE: January 08, 2024 TIME: 3:02 PM PATIENT IDENTITY VERIFICATION COMPLETED USING TWO (2) IDENTIFIERS: Name and Date of confirmed by patient verbally. FALL SCREENING: Has the patient had 2 falls in the last year or 1 fall with injury or currently using an Ambulatory Assistive Device (Walker, Cane, Wheelchair, Crutches, etc.)? No PATIENT GENDER DATA: Male PATIENT RELEVANT IMPLANT DATA REVIEWED: Yes PATIENT PRESENTS WITH AN IMPLANTABLE OR ATTACHED PATIENT COORDINATOR FRONT DESK: No RADIOLOGY DEPARTMENT: CT; Exam(s) Completed: Cardiac PERIPHERAL IV DATA: Site assessment: Clean,Dry and Intact, Site disposition Discontinued SIGNED BY: RT Diego(R) January 08, 2024 3:02 PM documented in this encounter [facility] 01-08-2024 Note HNO ID: [id number] Author: UZMA TOLEDO RT(R) Service: Radiology Author Type: Technologist Type: Progress Notes Filed: 01/08/2024 15:03 Note Text: Radiology Service Progress Note PATIENT NAME: Martin Henson DATE OF SERVICE: January 08, 2024 TIME: 3:02 PM PATIENT IDENTITY VERIFICATION COMPLETED USING TWO (2) IDENTIFIERS: Name and Date of confirmed by patient verbally. FALL SCREENING: Has the patient had 2 falls in the last year or 1 fall with injury or currently using an Ambulatory Assistive Device (Walker, Cane, Wheelchair, Crutches, etc.)? No PATIENT GENDER DATA: Male PATIENT RELEVANT IMPLANT DATA REVIEWED: Yes PATIENT PRESENTS WITH AN IMPLANTABLE OR ATTACHED PATIENT COORDINATOR FRONT DESK: No RADIOLOGY DEPARTMENT: CT; Exam(s) Completed: Cardiac PERIPHERAL IV DATA: Site assessment: Clean,Dry and Intact, Site disposition Discontinued SIGNED BY: RT Diego(Carla) January 08, 2024 3:02 PM [facility] 01-08-2024 Note HNO ID: [id number] Author: MARYJO CHIRINOS RN Service: Nursing Author Type: Registered Nurse Type: Progress Notes Filed: 01/08/2024 14:34 Note Text: Radiology Service Progress Note DATE OF SERVICE: January 08, 2024 TIME: 2:29 PM PATIENT WEIGHT: 242 LBS PATIENT IDENTITY VERIFICATION COMPLETED USING TWO (2) STANDARD IDENTIFIERS: Name and Date of confirmed by patient verbally. FALL SCREENING: Has the patient had 2 falls in the last year or 1 fall with injury or currently using an Ambulatory Assistive Device (Walker, Cane, Wheelchair, Crutches, etc.)? No PATIENT GENDER DATA: Male ALLERGIES: Reviewed and unchanged CONTRAST ALLERGY: No EXAM: CT -CONTRAST INDUCED NEPHROPATHY RISK FACTORS: Patient age > 60 years CREATININE: Creatinine Date Value Ref Range Status 08/08/2023 0.94 0.73 - 1.22 mg/dL Final 08/05/2023 0.95 0.73 - 1.22 mg/dL Final 08/04/2023 0.92 0.73 - 1.22 mg/dL Final Estimated Glomerular Filtration Rate Date Value Ref Range Status 08/08/2023 89 >=60 mL/min/1.73m? Final Comment: Estimated Glomerular Filtration Rate (eGFR) is calculated using the 2020 CKD-EPI creatinine equation. This equation utilizes serum creatinine, sex, and age as parameters. The creatinine assay has traceable calibration to isotope dilution-mass spectrometry. Refer to KDIGO guidelines for clinical interpretation. In patients with unstable renal function, e.g. those with acute kidney injury, the eGFR may not accurately reflect actual GFR. P.O.C.T. RESULTS: POC done: Yes, See Lab Tab January 08, 2024 TREATMENT: N/A and No Hydration needed. IV SITE: Ambulatory: A peripheral IV was started in the Right antecubital site with a Angio cath: 20 gauge. and A Saline lock was inserted per protocol IV SITE APPEARANCE: Clean,Dry and Intact SIGNATURE: Maryjo Chirinos RN PATIENT NAME: Martin Henson DATE: January 08, 2024 TIME: 2:29 PM [facility] 01-01-2024 Note HNO ID: [id number] Author: JOSIAH SUH, lease picker Service: ? Author Type: Middle School Teacher Type: Progress Notes Filed: 01/01/2024 08:25 Note Text: Cardiac Rehabilitation [facility] Program Supervising Physician: Len Menendez Diagnosis: Aortic Valve Replacement Phase: 2 Monitor: Yes Session Number: 36 Today's exercise session was comprised of a warm-up, aerobic conditioning phase, aerobic cool-down, and free weight resistance training. Patient tolerated prescribed exercise workload. Tele SR-ST without ectopic beats. Vitals WNL for patient. No chest discomfort. No medication changes. This is a hospital based cardiac rehab program. Patient working towards exercise goals by sustaining exercise intensity and duration. Patient working towards education goal by attending education sessions in cardiac rehabilitation. Patient has verbalized understanding of Blood pressure education topic and the relation to disease managment. Patient's Daily Exercise Log will be scanned into [employer] once it is completed. These can be viewed by going under the Scanned Documents tab and looking for documents labeled Cardiac Rehabilitation. Daily Exercise Logs contain exercise data such as, but not limited to modality, intensity, duration and frequency of exercise, along with vital signs pre-, during, and post-exercise. Refer to patient's paper medical record for ECG rhythm strips, physician prescribed Individualized Treatment Plan, and education sessions covered. Josiah Suh, Health Care Specialist [facility] [place] [facility] Department of Cardiovascular Medicine Discharge Assessment for Cardiac Rehab Martin Henson 01/01/2024 CHIEF COMPLAINT: Martin Henson is a 68 year old male seen today. Patient presents with: Cardiac Rehab: Discharge Patient completed optimal therapeutic dose of cardiac rehab: Yes Patient demonstrated clinically significant increase in functional capacity: Yes Patient achieved/maintained optimal blood pressure control: Yes Patient achieved clinical significant decrease in symptoms of depression: Yes Current smoking status: Never OUTCOMES: 10/09/2023 Initial Asmt Outcome Resting BP 118/80 Current Weight lb. 248 lbs BMI 32.84 Mediterranean Diet Score 3 PHQ9 Score 0 12/31/2023 Discharge Asmt Outcome Completed Ex. Sessions 36 Resting BP 130/84 Weight 242 lbs BMI 31.8 PAST MEDICAL HISTORY Diagnosis Date Aortic stenosis Bicuspid aortic valve Hemorrhoids HLD (hyperlipidemia) HTN (hypertension) Primary cardiomyopathy (HCC) PAST SURGICAL HISTORY Procedure Laterality Date ARTHROPLASTY GLENOHUMRL JT HEMIARTHROPLASTY 07/2006 Arthroplasty, shoulder: torn rotator cuff (right) COLONOSCOPY FLX DX W/COLLJ SPEC WHEN PFRMD 04/09/11 TONSILLECTOMY PRIMARY/SECONDARY Tonsillectomy XCAPSL CTRC RMVL INSJ IO LENS PROSTH W/O ECP 2006 Cataract Removal bilateral Social History Tobacco Use Smoking status: Never Smokeless tobacco: Current Types: Snuff Vaping Use Vaping Use: Never used Alcohol use: Yes Comment: very rarely Drug use: No FAMILY HISTORY Problem Relation Age of Onset Cancer Mother breast Arthritis Mother Hypertension Mother Heart Father atrial fib Stroke Father ? A-fib related Hypertension Sister Hypertension Brother Colon Cancer Other none Prostate Cancer Other none Diabetes Other none CURRENT MEDS: Current Outpatient Medications Medication Sig lisinopril (ZESTRIL) 5 mg tablet Take 1 tablet by mouth once daily. empagliflozin (JARDIANCE) 10 mg tablet Take 1 tablet by mouth daily with breakfast. doxycycline (VIBRA-TABS) 100 mg tablet Take 1 tablet by mouth two times a day. (Patient not taking: Reported on 09/18/2023) omeprazole (PRILOSEC) 40 mg capsule Take 1 capsule by mouth once daily. aspirin, enteric coated (ASPIRIN, ENTERIC COATED) 81 mg EC tablet Take 1 tablet by mouth once daily. atorvastatin (LIPITOR) 20 mg tablet Take 1 tablet by mouth daily at bedtime. cetirizine (ZYRTEC) 10 mg tablet Take 1 tablet by mouth once daily as needed for cold/allergy symptoms. acetaminophen (TYLENOL) 325 mg tablet Take 2 tablets by mouth every 6 hours as needed (for mild surgical pain). furosemide (LASIX) 40 mg tablet Take 1 tablet by mouth once daily for 7 days. (Patient not taking: Reported on 09/18/2023) metoprolol succinate ER (TOPROL XL) 100 mg Take 1.5 tablets by mouth daily with breakfast AND 1 tablet daily at bedtime. docusate sodium (COLACE) 100 mg capsule Take 1 capsule by mouth two times a day. (Patient not taking: Reported on 09/18/2023) MULTIVITAMIN TAB Take one(1) tablet daily. No current facility-administered medications for this visit. ALLERGIES No Active Allergies PHYSICAL EXAMINATION: BP 130/84 Pulse 62 Wt 242 lb (109.8kg) INDIVIDUAL TREATMENT PLAN Program Location: [place] Program: Exit Phase II EXERCISE ASSES (more content not included)... [facility] 01-01-2024 History of Present illness Narrative Images from the original note were not included. Cardiac Rehabilitation Hospital Based Program Supervising Physician: Len Menendez Diagnosis: Aortic Valve Replacement Phase: 2 Monitor: Yes Session Number: 36 Today's exercise session was comprised of a warm-up, aerobic conditioning phase, aerobic cool-down, and free weight resistance training. Patient tolerated prescribed exercise workload. Tele SR-ST without ectopic beats. Vitals WNL for patient. No chest discomfort. No medication changes. This is a hospital based cardiac rehab program. Patient working towards exercise goals by sustaining exercise intensity and duration. Patient working towards education goal by attending education sessions in cardiac rehabilitation. Patient has verbalized understanding of Blood pressure education topic and the relation to disease managment. Patient's Daily Exercise Log will be scanned into [employer]SEC once it is completed. These can be viewed by going under the Scanned Documents tab and looking for documents labeled Cardiac Rehabilitation. Daily Exercise Logs contain exercise data such as, but not limited to modality, intensity, duration and frequency of exercise, along with vital signs pre-, during, and post-exercise. Refer to patient's paper medical record for ECG rhythm strips, physician prescribed Individualized Treatment Plan, and education sessions covered. Josiah Suh, Health Care Specialist [facility] [place] [facility] Department of Cardiovascular Medicine Discharge Assessment for Cardiac Rehab Martin Henson 01/01/2024 CHIEF COMPLAINT: Martin Henson is a 68 year old male seen today. Patient presents with: Cardiac Rehab: Discharge Patient completed optimal therapeutic dose of cardiac rehab: Yes Patient demonstrated clinically significant increase in functional capacity: Yes Patient achieved/maintained optimal blood pressure control: Yes Patient achieved clinical significant decrease in symptoms of depression: Yes Current smoking status: Never OUTCOMES: 10/09/2023 Initial Asmt Outcome Resting BP 118/80 Current Weight lb. 248 lbs BMI 32.84 Mediterranean Diet Score 3 PHQ9 Score 0 12/31/2023 Discharge Asmt Outcome Completed Ex. Sessions 36 Resting BP 130/84 Weight 242 lbs BMI 31.8 PAST MEDICAL HISTORY Diagnosis Date Aortic stenosis Bicuspid aortic valve Hemorrhoids HLD (hyperlipidemia) HTN (hypertension) Primary cardiomyopathy (HCC) PAST SURGICAL HISTORY Procedure Laterality Date ARTHROPLASTY GLENOHUMRL JT HEMIARTHROPLASTY 07/2006 Arthroplasty, shoulder: torn rotator cuff (right) COLONOSCOPY FLX DX W/COLLJ SPEC WHEN PFRMD 04/09/11 TONSILLECTOMY PRIMARY/SECONDARY <AGE 12 Tonsillectomy XCAPSL CTRC RMVL INSJ IO LENS PROSTH W/O ECP 2006 Cataract Removal bilateral Social History Tobacco Use Smoking status: Never Smokeless tobacco: Current Types: Snuff Vaping Use Vaping Use: Never used Alcohol use: Yes Comment: very rarely Drug use: No FAMILY HISTORY Problem Relation Age of Onset Cancer Mother breast Arthritis Mother Hypertension Mother Heart Father atrial fib Stroke Father ? A-fib related Hypertension Sister Hypertension Brother Colon Cancer Other none Prostate Cancer Other none Diabetes Other none CURRENT MEDS: Current Outpatient Medications Medication Sig lisinopril (ZESTRIL) 5 mg tablet Take 1 tablet by mouth once daily. empagliflozin (JARDIANCE) 10 mg tablet Take 1 tablet by mouth daily with breakfast. doxycycline (VIBRA-TABS) 100 mg tablet Take 1 tablet by mouth two times a day. (Patient not taking: Reported on 09/18/2023) omeprazole (PRILOSEC) 40 mg capsule Take 1 capsule by mouth once daily. aspirin, enteric coated (ASPIRIN, ENTERIC COATED) 81 mg EC tablet Take 1 tablet by mouth once daily. atorvastatin (LIPITOR) 20 mg tablet Take 1 tablet by mouth daily at bedtime. cetirizine (ZYRTEC) 10 mg tablet Take 1 tablet by mouth once daily as needed for cold/allergy symptoms. acetaminophen (TYLENOL) 325 mg tablet Take 2 tablets by mouth every 6 hours as needed (for mild surgical pain). furosemide (LASIX) 40 mg tablet Take 1 tablet by mouth once daily for 7 days. (Patient not taking: Reported on 09/18/2023) metoprolol succinate ER (TOPROL XL) 100 mg Take 1.5 tablets by mouth daily with breakfast AND 1 tablet daily at bedtime. docusate sodium (COLACE) 100 mg capsule Take 1 capsule by mouth two times a day. (Patient not taking: Reported on 09/18/2023) MULTIVITAMIN TAB Take one(1) tablet daily. No current facility-administered medications for this visit. ALLERGIES No Active Allergies PHYSICAL EXAMINATION: BP 130/84 Pulse 62 Wt 242 lb (109.8kg) INDIVIDUAL TREATMENT PLAN Program Location: [place] Program: Exit Phase II EXERCISE ASSESSMENT Current Exercise: Yes Type of Exercise: Walk;Aerobics;Strength Exercise Duration: 40 minutes Exercise Intensity: Moderate Exercise Equipment: Yes Exercise Limitations/Symptoms: No Assist Device: No Oxygen: No Stress Test: No 6 Minute Walk Test: Yes Date: 10/09/23 Distance (ft): 1350 EXERCISE DISCHARGE PLAN Frequency: 3-5 Times Per Week Mode: Treadmill;Cycle;Recumbent Stepper;Elliptical;AirDyne;Recumbent Bike;Arm Ergometer;Weights;Walking Intensity: Within Set Target Heart Rate METS: 7.8 may exceed with in target heart rate Target Heart Rate (BPM): 91-130 Workload: 60-85% of max heart rate RPE: 11-14 out of 6-20 scale Initial Duration (minutes): 25 minutes Progression: Within Target Heart Rate Resistance Training: Free weights; currently using 5 lb weights and 6 lb weights Training Start Date: 10/11/23 WT Intensity: Weight to Have Local Muscle Fatigue in 10-15 Reps With 2-3 Sets Education Completed: RPE;Equipment Orientation;Signs and Symptoms;Target Heart Rate Range;Hand Hygiene;Cleaning of Equipment;Warm Up/Cool Down;Safety Guidelines;Exercise Prescription;Exercise Considerations;Equipment orientation;Exercise Safety;Exercise Benefits Patient Understands Intervention: Yes EXERCISE GOAL Distance on 6 Min Walk Test : 1522 (Patient exceeded goal of 1485 ft) Increase in Estimated METS: 7.8 (Patient exceeded goal of 7.8 METS) Duration of Exer Min Per Session: 40 (Patient is currently exercising for 40 minutes per session) Minutes Per Week of Exercise : Minimum of 150 minutes of aerobic exercise per week. Aim for 250-300 minutes per week. Home Exercise Plan: Patient will be walking daily 1 mile per session Other: Increase Endurance;Increase Strength NUTRITION DISCHARGE/FOLLOW UP Current Diet: Unrestricted Barriers: Dining Out;Other Member Prepares Meals Education Completed: Reading Labels;Portion Control;Decreased Fat Intake;Heart Healthy Eating for Life;Increase Fruit/Vegetables;Low Sodium Diet;Weight Loss Guidelines;Cholesterol Lowering Strategies;Shop Healthy/Cook Healthy;Heart Healthy Nutrition NUTRITION INTERVENTION Treatment: Diet Log;Cardiac Rehab;Nutrition Classes Patient Understands Intervention: Yes NUTRITION GOAL CORE COMPONENTS/RISK FACTORS DISCHARGE/FOLLOW UP Knowledge Test Score (#correct): (not given at [facility]) Learning Barriers: None Hyperlipidemia: Yes Patient Knows Appropriate Level : Yes Medication: Yes Diabetes: No Weight Management: Yes Weight: 242 lbs BMI: 31.8 Hypertension: Yes Resting BP: 130/84 Knowledge of Appropriate Level: Yes Tobacco Use: Never Tobacco Type: (never smoked) Triglyceride Date Value Ref Range Status 08/08/2023 118 <150 mg/dL Final Comment: <150 mg/dL, Normal 150-199 mg/dL, Borderline high 200-499 mg/dL, High >499 mg/dL, Very high HDL Cholesterol Date Value Ref Range Status 08/08/2023 25 (L) >39 mg/dL Final Comment: 40-59 mg/dL, Acceptable >59 mg/dL, High: Negative risk factor for coronary heart disease <40 mg/dL, Low: Positive risk factor for coronary heart disease LDL Cholesterol Date Value Ref Range Status 08/08/2023 61 <100 mg/dL Final Comment: <100 mg/dL, Optimal 100-129 mg/dL, Near optimal/above optimal 130-159 mg/dL, Borderline high 160-189 mg/dL, High >189 mg/dL, Very high Secondary prevention optimal LDL Cholesterol levels are recommended to be < 70 mg/dL CORE COMPONENTS INTERVENTION Hyperlipidemia: Continue Medication;Weight Loss;Dietary Modification;Exercise Weight Management: Dietary Modification;Exercise Hypertension: Continue Medication;Exercise;Dietary Modification;Weight Loss Tobacco Intervention: (never smoked) Education Completed: Weight Mgmt;You're Heart, Angina, [place];Cardiac Risk Factors;Cardiac Tests;Cardiac Treatments;Cardiac Medications;Advanced Directives;Diaphragmatic Breathing;Cardiac A&P;Diabetic Education;Smoking Cessation Patient Understands Intervention: Yes CORE COMPONENTS IMPROVEMENT GOAL Improvement in Knowledge Test Score : (not given at [facility]) Hyperlipidemia: LDL < 100 or <70 For High Risk Patients;Knows Appropriate Level;Knows Current Level Weight: Lose BMI: <35 (BMI = 31.8) Waist: Lose Hypertension: Monitor BP at Home;Low Sodium Diet;BP <130/<80 Tobacco: (never smoked) PSYCHOSOCIAL ASSESSMENT Stress: Minimal Family Support: Yes () Education Completed: Stress Management;Anxiety Management;Emotions;Anger Management;Behavior exchange floor manager;Depression Management;Relaxation Techniques PATIENT ENTERED QUESTIONNAIRE SCORES 01/01/2024 PHQ-9 PHQ-2 Score 0 PHQ-9 Score 0 01/01/2024 CRISTIN - 2/7 SCORES CRISTIN-2 Score 0 CRISTIN-7 Score 0 01/01/2024 Mediterranean Diet Assessment Tool Score 4 (Not consistent with a Mediterranean style diet) 01/01/2024 10/30/2023 08/28/2023 PROMIS Global Health - (T-Scores - the mean of general population = 50. Five points is a clinically meaningful difference.) Physical T-Score 54.1 54.1 47.7 Mental T-Score 53.3 53.3 50.8 PSYCHOSOCIAL DISCHARGE/FOLLOW UP PCP or Mental Health Provider Referral for Depression: No Patient Understands Intervention: Yes PSYCHOSOCIAL GOAL Goal: Improved PHQ9;Continue Heart Healthy Behavior Change;Attend Stress Management Sessions SUMMARY: Josiah Suh Health Care Specialist documented in this encounter [facility] 12-30-2023 Note HNO ID: [id number] Author: KATIE DECKER Health Care Specialist Service: ? Author Type: Health Care Specialist Type: Progress Notes Filed: 12/30/2023 08:20 Note Text: Cardiac Rehabilitation [facility] Program Supervising Physician: Len Menendez Diagnosis: Aortic Valve Replacement Phase: 2 Monitor: Yes Session Number: 35 Today's exercise session was comprised of a warm-up, aerobic conditioning phase, aerobic cool-down, and free weight resistance training. Patient tolerated prescribed exercise workload. Tele SR-ST without ectopic beats. Vitals WNL for patient. No chest discomfort. No medication changes. This is a hospital based cardiac rehab program. Patient working towards exercise goals by increasing exercise intensity. Patient working towards education goal by attending education sessions in cardiac rehabilitation. Patient has verbalized understanding of Risk Factors education topic and the relation to disease managment. Patient's Daily Exercise Log will be scanned into [employer]SEC once it is completed. These can be viewed by going under the Scanned Documents tab and looking for documents labeled Cardiac Rehabilitation. Daily Exercise Logs contain exercise data such as, but not limited to modality, intensity, duration and frequency of exercise, along with vital signs pre-, during, and post-exercise. Refer to patient's paper medical record for ECG rhythm strips, physician prescribed Individualized Treatment Plan, and education sessions covered. Katie Decker, Health Care Specialist [facility] 12-30-2023 History of Present illness Narrative Images from the original note were not included. Cardiac Rehabilitation Hospital Based Program Supervising Physician: Len Menendez Diagnosis: Aortic Valve Replacement Phase: 2 Monitor: Yes Session Number: 35 Today's exercise session was comprised of a warm-up, aerobic conditioning phase, aerobic cool-down, and free weight resistance training. Patient tolerated prescribed exercise workload. Tele SR-ST without ectopic beats. Vitals WNL for patient. No chest discomfort. No medication changes. This is a hospital based cardiac rehab program. Patient working towards exercise goals by increasing exercise intensity. Patient working towards education goal by attending education sessions in cardiac rehabilitation. Patient has verbalized understanding of Risk Factors education topic and the relation to disease managment. Patient's Daily Exercise Log will be scanned into [employer]SEC once it is completed. These can be viewed by going under the Scanned Documents tab and looking for documents labeled Cardiac Rehabilitation. Daily Exercise Logs contain exercise data such as, but not limited to modality, intensity, duration and frequency of exercise, along with vital signs pre-, during, and post-exercise. Refer to patient's paper medical record for ECG rhythm strips, physician prescribed Individualized Treatment Plan, and education sessions covered. Katie Decker Health Care Specialist documented in this encounter [facility] 12-27-2023 Note HNO ID: [id number] Author: JOSIAH SUH lease picker Service: ? Author Type: Middle School Teacher Type: Progress Notes Filed: 12/27/2023 08:22 Note Text: Cardiac Rehabilitation [facility] Supervising Physician: Len Menendez Diagnosis: Aortic Valve Replacement Phase: 2 Monitor: Yes Session Number: 34 Today's exercise session was comprised of a warm-up, aerobic conditioning phase, aerobic cool-down, and free weight resistance training. Patient tolerated prescribed exercise workload. Tele SR-ST without ectopic beats. Vitals WNL for patient. No chest discomfort. No medication changes. This is a hospital based cardiac rehab program. Patient working towards exercise goals by increasing exercise duration. Patient working towards education goal by attending education sessions in cardiac rehabilitation. Patient has verbalized understanding of Sugar, fiber, Na+ education topic and the relation to disease managment. Patient's Daily Exercise Log will be scanned into [employer]SEC once it is completed. These can be viewed by going under the Scanned Documents tab and looking for documents labeled Cardiac Rehabilitation. Daily Exercise Logs contain exercise data such as, but not limited to modality, intensity, duration and frequency of exercise, along with vital signs pre-, during, and post-exercise. Refer to patient's paper medical record for ECG rhythm strips, physician prescribed Individualized Treatment Plan, and education sessions covered. Josiah Suh Health Care Specialist [facility] 12-27-2023 History of Present illness Narrative Images from the original note were not included. Cardiac Rehabilitation Hospital Based Program Supervising Physician: Len Menendez Diagnosis: Aortic Valve Replacement Phase: 2 Monitor: Yes Session Number: 34 Today's exercise session was comprised of a warm-up, aerobic conditioning phase, aerobic cool-down, and free weight resistance training. Patient tolerated prescribed exercise workload. Tele SR-ST without ectopic beats. Vitals WNL for patient. No chest discomfort. No medication changes. This is a hospital based cardiac rehab program. Patient working towards exercise goals by increasing exercise duration. Patient working towards education goal by attending education sessions in cardiac rehabilitation. Patient has verbalized understanding of Sugar, fiber, Na+ education topic and the relation to disease managment. Patient's Daily Exercise Log will be scanned into [employer]SEC once it is completed. These can be viewed by going under the Scanned Documents tab and looking for documents labeled Cardiac Rehabilitation. Daily Exercise Logs contain exercise data such as, but not limited to modality, intensity, duration and frequency of exercise, along with vital signs pre-, during, and post-exercise. Refer to patient's paper medical record for ECG rhythm strips, physician prescribed Individualized Treatment Plan, and education sessions covered. Josiah Suh Health Care Specialist documented in this encounter [facility] 12-25-2023 Note HNO ID: [id number] Author: AVELINO ABURTO Health Care Specialist Service: ? Author Type: Health Care Specialist Type: Progress Notes Filed: 12/25/2023 08:23 Note Text: Cardiac Rehabilitation [facility] Program Supervising Physician: Len Menendez Diagnosis: Aortic Valve Replacement Phase: 2 Monitor: Yes Session Number: 33 Today's exercise session was comprised of a warm-up, aerobic conditioning phase, aerobic cool-down, and free weight resistance training. Patient tolerated prescribed exercise workload. Tele SR-ST without ectopic beats. Vitals WNL for patient. No chest discomfort. No medication changes. This is a hospital based cardiac rehab program. Patient working towards exercise goals by sustaining exercise intensity and duration. Patient working towards education goal by attending education sessions in cardiac rehabilitation. Patient has verbalized understanding of portion control education topic and the relation to disease managment. Patient's Daily Exercise Log will be scanned into [employer]SEC once it is completed. These can be viewed by going under the Scanned Documents tab and looking for documents labeled Cardiac Rehabilitation. Daily Exercise Logs contain exercise data such as, but not limited to modality, intensity, duration and frequency of exercise, along with vital signs pre-, during, and post-exercise. Refer to patient's paper medical record for ECG rhythm strips, physician prescribed Individualized Treatment Plan, and education sessions covered. Avelino Aburto Health Care Specialist [facility] 12-25-2023 History of Present illness Narrative Images from the original note were not included. Cardiac Rehabilitation Hospital Based Program Supervising Physician: Len Menendez Diagnosis: Aortic Valve Replacement Phase: 2 Monitor: Yes Session Number: 33 Today's exercise session was comprised of a warm-up, aerobic conditioning phase, aerobic cool-down, and free weight resistance training. Patient tolerated prescribed exercise workload. Tele SR-ST without ectopic beats. Vitals WNL for patient. No chest discomfort. No medication changes. This is a hospital based cardiac rehab program. Patient working towards exercise goals by sustaining exercise intensity and duration. Patient working towards education goal by attending education sessions in cardiac rehabilitation. Patient has verbalized understanding of portion control education topic and the relation to disease managment. Patient's Daily Exercise Log will be scanned into [employer]SEC once it is completed. These can be viewed by going under the Scanned Documents tab and looking for documents labeled Cardiac Rehabilitation. Daily Exercise Logs contain exercise data such as, but not limited to modality, intensity, duration and frequency of exercise, along with vital signs pre-, during, and post-exercise. Refer to patient's paper medical record for ECG rhythm strips, physician prescribed Individualized Treatment Plan, and education sessions covered. Avelino Aburto Health Care Specialist documented in this encounter [facility] 12-23-2023 Note HNO ID: [id number] Author: KATIE DECKER Health Care Specialist Service: ? Author Type: Health Care Specialist Type: Progress Notes Filed: 12/23/2023 08:15 Note Text: Cardiac Rehabilitation [facility] Based Program Supervising Physician: Len Menendez Diagnosis: Aortic Valve Replacement Phase: 2 Monitor: Yes Session Number: 32 Today's exercise session was comprised of a warm-up, aerobic conditioning phase, aerobic cool-down, and free weight resistance training. Patient tolerated prescribed exercise workload. Tele SR-ST without ectopic beats. Vitals WNL for patient. No chest discomfort. No medication changes. This is a hospital based cardiac rehab program. Patient working towards exercise goals by sustaining exercise intensity and duration. Patient working towards education goal by attending education sessions in cardiac rehabilitation. Patient has verbalized understanding of Reading Food labels education topic and the relation to disease managment. Patient's Daily Exercise Log will be scanned into [employer]SEC once it is completed. These can be viewed by going under the Scanned Documents tab and looking for documents labeled Cardiac Rehabilitation. Daily Exercise Logs contain exercise data such as, but not limited to modality, intensity, duration and frequency of exercise, along with vital signs pre-, during, and post-exercise. Refer to patient's paper medical record for ECG rhythm strips, physician prescribed Individualized Treatment Plan, and education sessions covered. Katie Decker Health Care Specialist [facility] 12-23-2023 History of Present illness Narrative Images from the original note were not included. Cardiac Rehabilitation [facility] Based Program Supervising Physician: Len Menendez Diagnosis: Aortic Valve Replacement Phase: 2 Monitor: Yes Session Number: 32 Today's exercise session was comprised of a warm-up, aerobic conditioning phase, aerobic cool-down, and free weight resistance training. Patient tolerated prescribed exercise workload. Tele SR-ST without ectopic beats. Vitals WNL for patient. No chest discomfort. No medication changes. This is a hospital based cardiac rehab program. Patient working towards exercise goals by sustaining exercise intensity and duration. Patient working towards education goal by attending education sessions in cardiac rehabilitation. Patient has verbalized understanding of Reading Food labels education topic and the relation to disease managment. Patient's Daily Exercise Log will be scanned into [employer]SEC once it is completed. These can be viewed by going under the Scanned Documents tab and looking for documents labeled Cardiac Rehabilitation. Daily Exercise Logs contain exercise data such as, but not limited to modality, intensity, duration and frequency of exercise, along with vital signs pre-, during, and post-exercise. Refer to patient's paper medical record for ECG rhythm strips, physician prescribed Individualized Treatment Plan, and education sessions covered. Katie Decker Health Care Specialist documented in this encounter [facility] 12-20-2023 Note HNO ID: [id number] Author: JOSIAH SUH, lease picker Service: ? Author Type: Middle School Teacher Type: Progress Notes Filed: 12/20/2023 08:25 Note Text: Cardiac Rehabilitation [facility] Based Program Supervising Physician: Len Menendez Diagnosis: Aortic Valve Replacement Phase: 2 Monitor: Yes Session Number: 31 Today's exercise session was comprised of a warm-up, aerobic conditioning phase, aerobic cool-down, and free weight resistance training. Patient tolerated prescribed exercise workload. Tele SR-ST without ectopic beats. Vitals WNL for patient. No chest discomfort. No medication changes. This is a hospital based cardiac rehab program. Patient working towards exercise goals by increasing exercise intensity and duration. Patient working towards education goal by attending education sessions in cardiac rehabilitation. Patient has verbalized understanding of Mediterranean Diet education topic and the relation to disease managment. Patient's Daily Exercise Log will be scanned into [employer]SEC once it is completed. These can be viewed by going under the Scanned Documents tab and looking for documents labeled Cardiac Rehabilitation. Daily Exercise Logs contain exercise data such as, but not limited to modality, intensity, duration and frequency of exercise, along with vital signs pre-, during, and post-exercise. Refer to patient's paper medical record for ECG rhythm strips, physician prescribed Individualized Treatment Plan, and education sessions covered. Josiah Suh, Health Care Specialist [facility] 12-20-2023 History of Present illness Narrative Images from the original note were not included. Cardiac Rehabilitation Hospital Based Program Supervising Physician: Len Menendez Diagnosis: Aortic Valve Replacement Phase: 2 Monitor: Yes Session Number: 31 Today's exercise session was comprised of a warm-up, aerobic conditioning phase, aerobic cool-down, and free weight resistance training. Patient tolerated prescribed exercise workload. Tele SR-ST without ectopic beats. Vitals WNL for patient. No chest discomfort. No medication changes. This is a hospital based cardiac rehab program. Patient working towards exercise goals by increasing exercise intensity and duration. Patient working towards education goal by attending education sessions in cardiac rehabilitation. Patient has verbalized understanding of Mediterranean Diet education topic and the relation to disease managment. Patient's Daily Exercise Log will be scanned into [employer]SEC once it is completed. These can be viewed by going under the Scanned Documents tab and looking for documents labeled Cardiac Rehabilitation. Daily Exercise Logs contain exercise data such as, but not limited to modality, intensity, duration and frequency of exercise, along with vital signs pre-, during, and post-exercise. Refer to patient's paper medical record for ECG rhythm strips, physician prescribed Individualized Treatment Plan, and education sessions covered. Josiah Suh, Health Care Specialist documented in this encounter [facility] 12-18-2023 Note HNO ID: [id number] Author: AVELINO ABURTO Health Care Specialist Service: ? Author Type: Health Care Specialist Type: Progress Notes Filed: 12/18/2023 08:22 Note Text: Cardiac Rehabilitation Hospital Based Program Supervising Physician: Len Menendez Diagnosis: Aortic Valve Replacement Phase: 2 Monitor: Yes Session Number: 30 Today's exercise session was comprised of a warm-up, aerobic conditioning phase, aerobic cool-down, and free weight resistance training. Patient tolerated prescribed exercise workload. Tele SR-ST without ectopic beats. Vitals WNL for patient. No chest discomfort. No medication changes. This is a hospital based cardiac rehab program. Patient working towards exercise goals by sustaining exercise intensity and duration. Patient working towards education goal by attending education sessions in cardiac rehabilitation. Patient has verbalized understanding of CHF education topic and the relation to disease managment. Patient's Daily Exercise Log will be scanned into [employer]SEC once it is completed. These can be viewed by going under the Scanned Documents tab and looking for documents labeled Cardiac Rehabilitation. Daily Exercise Logs contain exercise data such as, but not limited to modality, intensity, duration and frequency of exercise, along with vital signs pre-, during, and post-exercise. Refer to patient's paper medical record for ECG rhythm strips, physician prescribed Individualized Treatment Plan, and education sessions covered. Avelino Aburto Health Care Specialist [facility] 12-18-2023 History of Present illness Narrative Images from the original note were not included. Cardiac Rehabilitation Hospital Based Program Supervising Physician: Len Menendez Diagnosis: Aortic Valve Replacement Phase: 2 Monitor: Yes Session Number: 30 Today's exercise session was comprised of a warm-up, aerobic conditioning phase, aerobic cool-down, and free weight resistance training. Patient tolerated prescribed exercise workload. Tele SR-ST without ectopic beats. Vitals WNL for patient. No chest discomfort. No medication changes. This is a hospital based cardiac rehab program. Patient working towards exercise goals by sustaining exercise intensity and duration. Patient working towards education goal by attending education sessions in cardiac rehabilitation. Patient has verbalized understanding of CHF education topic and the relation to disease managment. Patient's Daily Exercise Log will be scanned into [employer]SEC once it is completed. These can be viewed by going under the Scanned Documents tab and looking for documents labeled Cardiac Rehabilitation. Daily Exercise Logs contain exercise data such as, but not limited to modality, intensity, duration and frequency of exercise, along with vital signs pre-, during, and post-exercise. Refer to patient's paper medical record for ECG rhythm strips, physician prescribed Individualized Treatment Plan, and education sessions covered. Avelino Aburto Health Care Specialist documented in this encounter [facility] 12-16-2023 Note HNO ID: [id number] Author: KATIE DECKER Health Care Specialist Service: ? Author Type: Health Care Specialist Type: Progress Notes Filed: 12/16/2023 08:26 Note Text: Cardiac Rehabilitation [facility] Based Program Supervising Physician: Len Menendez Diagnosis: Aortic Valve Replacement Phase: 2 Monitor: Yes Session Number: 29 Today's exercise session was comprised of a warm-up, aerobic conditioning phase, aerobic cool-down, and free weight resistance training. Patient tolerated prescribed exercise workload. Tele SR-ST without ectopic beats. Vitals WNL for patient. No chest discomfort. No medication changes. This is a hospital based cardiac rehab program. Patient working towards exercise goals by increasing exercise intensity. Patient working towards education goal by attending education sessions in cardiac rehabilitation. Patient has verbalized understanding of Heart Valves education topic and the relation to disease managment. Patient's Daily Exercise Log will be scanned into [employer]SEC once it is completed. These can be viewed by going under the Scanned Documents tab and looking for documents labeled Cardiac Rehabilitation. Daily Exercise Logs contain exercise data such as, but not limited to modality, intensity, duration and frequency of exercise, along with vital signs pre-, during, and post-exercise. Refer to patient's paper medical record for ECG rhythm strips, physician prescribed Individualized Treatment Plan, and education sessions covered. Katie Decker Health Care Specialist [facility] 12-16-2023 History of Present illness Narrative Images from the original note were not included. Cardiac Rehabilitation Hospital Based Program Supervising Physician: Len Menendez Diagnosis: Aortic Valve Replacement Phase: 2 Monitor: Yes Session Number: 29 Today's exercise session was comprised of a warm-up, aerobic conditioning phase, aerobic cool-down, and free weight resistance training. Patient tolerated prescribed exercise workload. Tele SR-ST without ectopic beats. Vitals WNL for patient. No chest discomfort. No medication changes. This is a hospital based cardiac rehab program. Patient working towards exercise goals by increasing exercise intensity. Patient working towards education goal by attending education sessions in cardiac rehabilitation. Patient has verbalized understanding of Heart Valves education topic and the relation to disease managment. Patient's Daily Exercise Log will be scanned into [employer]SEC once it is completed. These can be viewed by going under the Scanned Documents tab and looking for documents labeled Cardiac Rehabilitation. Daily Exercise Logs contain exercise data such as, but not limited to modality, intensity, duration and frequency of exercise, along with vital signs pre-, during, and post-exercise. Refer to patient's paper medical record for ECG rhythm strips, physician prescribed Individualized Treatment Plan, and education sessions covered. Katie Decker Health Care Specialist documented in this encounter [facility] 12-13-2023 Note HNO ID: [id number] Author: JOSIAH SUH lease picker Service: ? Author Type: Middle School Teacher Type: Progress Notes Filed: 12/13/2023 08:29 Note Text: Cardiac Rehabilitation [facility] Based Program Supervising Physician: Len Menendez Diagnosis: Aortic Valve Replacement Phase: 2 Monitor: Yes Session Number: 28 Today's exercise session was comprised of a warm-up, aerobic conditioning phase, aerobic cool-down, and free weight resistance training. Patient tolerated prescribed exercise workload. Tele SR-ST without ectopic beats. Vitals WNL for patient. No chest discomfort. No medication changes. This is a hospital based cardiac rehab program. Patient working towards exercise goals by increasing exercise intensity. Patient working towards education goal by attending education sessions in cardiac rehabilitation. Patient has verbalized understanding of CA, angina, NTG education topic and the relation to disease managment. Patient's Daily Exercise Log will be scanned into TOPSEC once it is completed. These can be viewed by going under the Scanned Documents tab and looking for documents labeled Cardiac Rehabilitation. Daily Exercise Logs contain exercise data such as, but not limited to modality, intensity, duration and frequency of exercise, along with vital signs pre-, during, and post-exercise. Refer to patient's paper medical record for ECG rhythm strips, physician prescribed Individualized Treatment Plan, and education sessions covered. Josiah Suh Health Care Specialist [facility] 12-13-2023 History of Present illness Narrative Images from the original note were not included. Cardiac Rehabilitation [facility] Supervising Physician: Len Menendez Diagnosis: Aortic Valve Replacement Phase: 2 Monitor: Yes Session Number: 28 Today's exercise session was comprised of a warm-up, aerobic conditioning phase, aerobic cool-down, and free weight resistance training. Patient tolerated prescribed exercise workload. Tele SR-ST without ectopic beats. Vitals WNL for patient. No chest discomfort. No medication changes. This is a hospital based cardiac rehab program. Patient working towards exercise goals by increasing exercise intensity. Patient working towards education goal by attending education sessions in cardiac rehabilitation. Patient has verbalized understanding of CA, angina, NTG education topic and the relation to disease managment. Patient's Daily Exercise Log will be scanned into TOPSEC once it is completed. These can be viewed by going under the Scanned Documents tab and looking for documents labeled Cardiac Rehabilitation. Daily Exercise Logs contain exercise data such as, but not limited to modality, intensity, duration and frequency of exercise, along with vital signs pre-, during, and post-exercise. Refer to patient's paper medical record for ECG rhythm strips, physician prescribed Individualized Treatment Plan, and education sessions covered. Joisah Suh Health Care Specialist documented in this encounter [facility] 12-11-2023 Note HNO ID: [id number] Author: AVELINO ABURTO Health Care Specialist Service: ? Author Type: Health Care Specialist Type: Progress Notes Filed: 12/11/2023 08:23 Note Text: Cardiac Rehabilitation [facility] Based Program Supervising Physician: Len Menendez Diagnosis: Aortic Valve Replacement Phase: 2 Monitor: Yes Session Number: 27 Today's exercise session was comprised of a warm-up, aerobic conditioning phase, aerobic cool-down, and free weight resistance training. Patient tolerated prescribed exercise workload. Tele SR-ST without ectopic beats. Vitals WNL for patient. No chest discomfort. No medication changes. This is a hospital based cardiac rehab program. Patient working towards exercise goals by increasing exercise intensity. Patient working towards education goal by attending education sessions in cardiac rehabilitation. Patient has verbalized understanding of CAD education topic and the relation to disease managment. Patient's Daily Exercise Log will be scanned into TOPSEC once it is completed. These can be viewed by going under the Scanned Documents tab and looking for documents labeled Cardiac Rehabilitation. Daily Exercise Logs contain exercise data such as, but not limited to modality, intensity, duration and frequency of exercise, along with vital signs pre-, during, and post-exercise. Refer to patient's paper medical record for ECG rhythm strips, physician prescribed Individualized Treatment Plan, and education sessions covered. Avelino Aburto Health Care Specialist [facility] 12-11-2023 History of Present illness Narrative Images from the original note were not included. Cardiac Rehabilitation Hospital Based Program Supervising Physician: Len Menendez Diagnosis: Aortic Valve Replacement Phase: 2 Monitor: Yes Session Number: 27 Today's exercise session was comprised of a warm-up, aerobic conditioning phase, aerobic cool-down, and free weight resistance training. Patient tolerated prescribed exercise workload. Tele SR-ST without ectopic beats. Vitals WNL for patient. No chest discomfort. No medication changes. This is a hospital based cardiac rehab program. Patient working towards exercise goals by increasing exercise intensity. Patient working towards education goal by attending education sessions in cardiac rehabilitation. Patient has verbalized understanding of CAD education topic and the relation to disease managment. Patient's Daily Exercise Log will be scanned into TOPSEC once it is completed. These can be viewed by going under the Scanned Documents tab and looking for documents labeled Cardiac Rehabilitation. Daily Exercise Logs contain exercise data such as, but not limited to modality, intensity, duration and frequency of exercise, along with vital signs pre-, during, and post-exercise. Refer to patient's paper medical record for ECG rhythm strips, physician prescribed Individualized Treatment Plan, and education sessions covered. Avelino Aburto Health Care Specialist documented in this encounter [facility] 12-09-2023 Note HNO ID: [id number] Author: KATIE DECKER Health Care Specialist Service: ? Author Type: Health Care Specialist Type: Progress Notes Filed: 12/09/2023 08:22 Note Text: Cardiac Rehabilitation [facility] Based Program Supervising Physician: Len Menendez Diagnosis: Aortic Valve Replacement Phase: 2 Monitor: Yes Session Number: 26 Today's exercise session was comprised of a warm-up, aerobic conditioning phase, aerobic cool-down, and free weight resistance training. Patient tolerated prescribed exercise workload. Tele SR-ST without ectopic beats. Vitals WNL for patient. No chest discomfort. No medication changes. This is a hospital based cardiac rehab program. Patient working towards exercise goals by sustaining exercise intensity and duration. Patient working towards education goal by attending education sessions in cardiac rehabilitation. Patient has verbalized understanding of AANDP of the Heart education topic and the relation to disease managment. Patient's Daily Exercise Log will be scanned into [employer]SEC once it is completed. These can be viewed by going under the Scanned Documents tab and looking for documents labeled Cardiac Rehabilitation. Daily Exercise Logs contain exercise data such as, but not limited to modality, intensity, duration and frequency of exercise, along with vital signs pre-, during, and post-exercise. Refer to patient's paper medical record for ECG rhythm strips, physician prescribed Individualized Treatment Plan, and education sessions covered. Katie Decker, Health Care Specialist [facility] 12-09-2023 History of Present illness Narrative Images from the original note were not included. Cardiac Rehabilitation Hospital Based Program Supervising Physician: Len Menendez Diagnosis: Aortic Valve Replacement Phase: 2 Monitor: Yes Session Number: 26 Today's exercise session was comprised of a warm-up, aerobic conditioning phase, aerobic cool-down, and free weight resistance training. Patient tolerated prescribed exercise workload. Tele SR-ST without ectopic beats. Vitals WNL for patient. No chest discomfort. No medication changes. This is a hospital based cardiac rehab program. Patient working towards exercise goals by sustaining exercise intensity and duration. Patient working towards education goal by attending education sessions in cardiac rehabilitation. Patient has verbalized understanding of A&P of the Heart education topic and the relation to disease managment. Patient's Daily Exercise Log will be scanned into TOPSEC once it is completed. These can be viewed by going under the Scanned Documents tab and looking for documents labeled Cardiac Rehabilitation. Daily Exercise Logs contain exercise data such as, but not limited to modality, intensity, duration and frequency of exercise, along with vital signs pre-, during, and post-exercise. Refer to patient's paper medical record for ECG rhythm strips, physician prescribed Individualized Treatment Plan, and education sessions covered. Katie Decker Health Care Specialist documented in this encounter [facility] 12-04-2023 Note HNO ID: [id number] Author: AVELINO ABURTO Health Care Specialist Service: ? Author Type: Health Care Specialist Type: Progress Notes Filed: 12/04/2023 08:19 Note Text: Cardiac Rehabilitation [facility] Based Program Supervising Physician: Len Menendez Diagnosis: Aortic Valve Replacement Phase: 2 Monitor: Yes Session Number: 24 Today's exercise session was comprised of a warm-up, aerobic conditioning phase, aerobic cool-down, and free weight resistance training. Patient tolerated prescribed exercise workload. Tele SR-ST without ectopic beats. Vitals WNL for patient. No chest discomfort. No medication changes. This is a hospital based cardiac rehab program. Patient working towards exercise goals by increasing exercise duration. Patient working towards education goal by attending education sessions in cardiac rehabilitation. Patient has verbalized understanding of depression education topic and the relation to disease managment. Patient's Daily Exercise Log will be scanned into TOPSEC once it is completed. These can be viewed by going under the Scanned Documents tab and looking for documents labeled Cardiac Rehabilitation. Daily Exercise Logs contain exercise data such as, but not limited to modality, intensity, duration and frequency of exercise, along with vital signs pre-, during, and post-exercise. Refer to patient's paper medical record for ECG rhythm strips, physician prescribed Individualized Treatment Plan, and education sessions covered. Avelino Aburto Health Care Specialist [facility] 12-04-2023 History of Present illness Narrative Images from the original note were not included. Cardiac Rehabilitation Hospital Based Program Supervising Physician: Len Menendez Diagnosis: Aortic Valve Replacement Phase: 2 Monitor: Yes Session Number: 24 Today's exercise session was comprised of a warm-up, aerobic conditioning phase, aerobic cool-down, and free weight resistance training. Patient tolerated prescribed exercise workload. Tele SR-ST without ectopic beats. Vitals WNL for patient. No chest discomfort. No medication changes. This is a hospital based cardiac rehab program. Patient working towards exercise goals by increasing exercise duration. Patient working towards education goal by attending education sessions in cardiac rehabilitation. Patient has verbalized understanding of depression education topic and the relation to disease managment. Patient's Daily Exercise Log will be scanned into TOPSEC once it is completed. These can be viewed by going under the Scanned Documents tab and looking for documents labeled Cardiac Rehabilitation. Daily Exercise Logs contain exercise data such as, but not limited to modality, intensity, duration and frequency of exercise, along with vital signs pre-, during, and post-exercise. Refer to patient's paper medical record for ECG rhythm strips, physician prescribed Individualized Treatment Plan, and education sessions covered. Avelino Aburto Health Care Specialist documented in this encounter [facility] 12-03-2023 Note HNO ID: [id number] Author: JOSIAH SUH lease picker Service: ? Author Type: Middle School Teacher Type: Progress Notes Filed: 12/06/2023 08:27 Note Text: Cardiac Rehabilitation [facility] Supervising Physician: Len Menendez Diagnosis: Aortic Valve Replacement Phase: 2 Monitor: Yes Session Number: 25 Today's exercise session was comprised of a warm-up, aerobic conditioning phase, aerobic cool-down, and free weight resistance training. Patient tolerated prescribed exercise workload. Tele SR-ST without ectopic beats. Vitals WNL for patient. No chest discomfort. No medication changes. This is a hospital based cardiac rehab program. Patient working towards exercise goals by sustaining exercise intensity and duration. Patient working towards education goal by attending education sessions in cardiac rehabilitation. Patient has verbalized understanding of Advanced Directives education topic and the relation to disease managment. Patient's Daily Exercise Log will be scanned into TOPSEC once it is completed. These can be viewed by going under the Scanned Documents tab and looking for documents labeled Cardiac Rehabilitation. Daily Exercise Logs contain exercise data such as, but not limited to modality, intensity, duration and frequency of exercise, along with vital signs pre-, during, and post-exercise. Refer to patient's paper medical record for ECG rhythm strips, physician prescribed Individualized Treatment Plan, and education sessions covered. Josiah Suh, Health Care Specialist [facility] [place] [facility] Department of Cardiovascular Medicine 30 DAY Assessment for Cardiac Rehab Martin Henson 12/03/2023 CHIEF COMPLAINT: Martin Henson is a 68 year old male seen today. Patient presents with: Cardiac Rehab: 60 day assessment HISTORY OF PRESENT ILLNESS: Aortic Valve Replacement PAST MEDICAL HISTORY Diagnosis Date Aortic stenosis Bicuspid aortic valve Hemorrhoids HLD (hyperlipidemia) HTN (hypertension) Primary cardiomyopathy (HCC) PAST SURGICAL HISTORY Procedure Laterality Date ARTHROPLASTY GLENOHUMRL JT HEMIARTHROPLASTY 07/2006 Arthroplasty, shoulder: torn rotator cuff (right) COLONOSCOPY FLX DX W/COLLJ SPEC WHEN PFRMD 04/09/11 TONSILLECTOMY PRIMARY/SECONDARY Tonsillectomy XCAPSL CTRC RMVL INSJ IO LENS PROSTH W/O ECP 2006 Cataract Removal bilateral Social History Tobacco Use Smoking status: Never Smokeless tobacco: Current Types: Snuff Vaping Use Vaping Use: Never used Alcohol use: Yes Comment: very rarely Drug use: No FAMILY HISTORY Problem Relation Age of Onset Cancer Mother breast Arthritis Mother Hypertension Mother Heart Father atrial fib Stroke Father ? A-fib related Hypertension Sister Hypertension Brother Colon Cancer Other none Prostate Cancer Other none Diabetes Other none CURRENT MEDS: Current Outpatient Medications Medication Sig lisinopril (ZESTRIL) 5 mg tablet Take 1 tablet by mouth once daily. empagliflozin (JARDIANCE) 10 mg tablet Take 1 tablet by mouth daily with breakfast. doxycycline (VIBRA-TABS) 100 mg tablet Take 1 tablet by mouth two times a day. (Patient not taking: Reported on 09/18/2023) omeprazole (PRILOSEC) 40 mg capsule Take 1 capsule by mouth once daily. aspirin, enteric coated (ASPIRIN, ENTERIC COATED) 81 mg EC tablet Take 1 tablet by mouth once daily. atorvastatin (LIPITOR) 20 mg tablet Take 1 tablet by mouth daily at bedtime. cetirizine (ZYRTEC) 10 mg tablet Take 1 tablet by mouth once daily as needed for cold/allergy symptoms. acetaminophen (TYLENOL) 325 mg tablet Take 2 tablets by mouth every 6 hours as needed (for mild surgical pain). furosemide (LASIX) 40 mg tablet Take 1 tablet by mouth once daily for 7 days. (Patient not taking: Reported on 09/18/2023) metoprolol succinate ER (TOPROL XL) 100 mg Take 1.5 tablets by mouth daily with breakfast AND 1 tablet daily at bedtime. docusate sodium (COLACE) 100 mg capsule Take 1 capsule by mouth two times a day. (Patient not taking: Reported on 09/18/2023) MULTIVITAMIN TAB Take one(1) tablet daily. No current facility-administered medications for this visit. ALLERGIES No Active Allergies PHYSICAL EXAMINATION: BP 120/78 Pulse 72 Wt 244 lb (110.7kg) INDIVIDUAL TREATMENT PLAN Program Location: [place] EXERCISE REASSESSMENT Current Exercise at Rehab: Patient is currently exercising 3x's a week for 35 minutes per session on the treadmill Treadmill METS : 3.8 RT Weight : 5 lbs Home Exercise: (patient [place] on the farm but does not have a set home exercise plan) Current Symptoms: Asymptomatic Education Completed: RPE, Equipment Orientation, Signs and Symptoms, Target Heart Rate Range, Hand Hygiene, Cleaning of Equipment, Safety Guidelines, Warm Up/Cool Down, Exercise Prescription, Exercise Considerations, Equipment orientation, Exerci (more content not included)... [facility] 12-02-2023 Note HNO ID: [id number] Author: KATIE DECKER Health Care Specialist Service: ? Author Type: Health Care Specialist Type: Progress Notes Filed: 12/02/2023 08:16 Note Text: Cardiac Rehabilitation [facility] Program Supervising Physician: Len Menendez Diagnosis: Aortic Valve Replacement Phase: 2 Monitor: Yes Session Number: 23 Today's exercise session was comprised of a warm-up, aerobic conditioning phase, aerobic cool-down, and free weight resistance training. Patient tolerated prescribed exercise workload. Tele SR-ST without ectopic beats. Vitals WNL for patient. No chest discomfort. No medication changes. This is a hospital based cardiac rehab program. Patient working towards exercise goals by sustaining exercise intensity and duration. Patient working towards education goal by attending education sessions in cardiac rehabilitation. Patient has verbalized understanding of Stress management education topic and the relation to disease managment. Patient's Daily Exercise Log will be scanned into [employer]SEC once it is completed. These can be viewed by going under the Scanned Documents tab and looking for documents labeled Cardiac Rehabilitation. Daily Exercise Logs contain exercise data such as, but not limited to modality, intensity, duration and frequency of exercise, along with vital signs pre-, during, and post-exercise. Refer to patient's paper medical record for ECG rhythm strips, physician prescribed Individualized Treatment Plan, and education sessions covered. Katie Decker Health Care Specialist [facility] 12-02-2023 History of Present illness Narrative Images from the original note were not included. Cardiac Rehabilitation [facility] Based Program Supervising Physician: Len Menendez Diagnosis: Aortic Valve Replacement Phase: 2 Monitor: Yes Session Number: 23 Today's exercise session was comprised of a warm-up, aerobic conditioning phase, aerobic cool-down, and free weight resistance training. Patient tolerated prescribed exercise workload. Tele SR-ST without ectopic beats. Vitals WNL for patient. No chest discomfort. No medication changes. This is a hospital based cardiac rehab program. Patient working towards exercise goals by sustaining exercise intensity and duration. Patient working towards education goal by attending education sessions in cardiac rehabilitation. Patient has verbalized understanding of Stress management education topic and the relation to disease managment. Patient's Daily Exercise Log will be scanned into TOPSEC once it is completed. These can be viewed by going under the Scanned Documents tab and looking for documents labeled Cardiac Rehabilitation. Daily Exercise Logs contain exercise data such as, but not limited to modality, intensity, duration and frequency of exercise, along with vital signs pre-, during, and post-exercise. Refer to patient's paper medical record for ECG rhythm strips, physician prescribed Individualized Treatment Plan, and education sessions covered. Katie Decker Health Care Specialist documented in this encounter [facility] 11-29-2023 Note HNO ID: [id number] Author: AVELINO ABURTO Health Care Specialist Service: ? Author Type: Health Care Specialist Type: Progress Notes Filed: 11/29/2023 08:26 Note Text: Cardiac Rehabilitation [facility] Based Program Supervising Physician: Len Menendez Diagnosis: Aortic Valve Replacement Phase: 2 Monitor: Yes Session Number: 22 Today's exercise session was comprised of a warm-up, aerobic conditioning phase, aerobic cool-down, and free weight resistance training. Patient tolerated prescribed exercise workload. Tele SR-ST without ectopic beats. Vitals WNL for patient. No chest discomfort. No medication changes. This is a hospital based cardiac rehab program. Patient working towards exercise goals by increasing exercise intensity. Patient working towards education goal by attending education sessions in cardiac rehabilitation. Patient has verbalized understanding of exercise education topic and the relation to disease managment. Patient's Daily Exercise Log will be scanned into [employer]SEC once it is completed. These can be viewed by going under the Scanned Documents tab and looking for documents labeled Cardiac Rehabilitation. Daily Exercise Logs contain exercise data such as, but not limited to modality, intensity, duration and frequency of exercise, along with vital signs pre-, during, and post-exercise. Refer to patient's paper medical record for ECG rhythm strips, physician prescribed Individualized Treatment Plan, and education sessions covered. Avelino Aburto Health Care Specialist [facility] 11-29-2023 History of Present illness Narrative Images from the original note were not included. Cardiac Rehabilitation Hospital Based Program Supervising Physician: Len Menendez Diagnosis: Aortic Valve Replacement Phase: 2 Monitor: Yes Session Number: 22 Today's exercise session was comprised of a warm-up, aerobic conditioning phase, aerobic cool-down, and free weight resistance training. Patient tolerated prescribed exercise workload. Tele SR-ST without ectopic beats. Vitals WNL for patient. No chest discomfort. No medication changes. This is a hospital based cardiac rehab program. Patient working towards exercise goals by increasing exercise intensity. Patient working towards education goal by attending education sessions in cardiac rehabilitation. Patient has verbalized understanding of exercise education topic and the relation to disease managment. Patient's Daily Exercise Log will be scanned into TOPSEC once it is completed. These can be viewed by going under the Scanned Documents tab and looking for documents labeled Cardiac Rehabilitation. Daily Exercise Logs contain exercise data such as, but not limited to modality, intensity, duration and frequency of exercise, along with vital signs pre-, during, and post-exercise. Refer to patient's paper medical record for ECG rhythm strips, physician prescribed Individualized Treatment Plan, and education sessions covered. Avelino Aburto Health Care Specialist documented in this encounter [facility] 11-27-2023 Note HNO ID: [id number] Author: AVELINO ABURTO Health Care Specialist Service: ? Author Type: Health Care Specialist Type: Progress Notes Filed: 11/27/2023 08:26 Note Text: [facility] Rehabilitation [facility] Supervising Physician: Len Menendez Diagnosis: Aortic Valve Replacement Phase: 2 Monitor: Yes Session Number: 21 Today's exercise session was comprised of a warm-up, aerobic conditioning phase, aerobic cool-down, and free weight resistance training. Patient tolerated prescribed exercise workload. Tele SR-ST without ectopic beats. Vitals WNL for patient. No chest discomfort. No medication changes. This is a hospital based cardiac rehab program. Patient working towards exercise goals by sustaining exercise intensity and duration. Patient working towards education goal by attending education sessions in cardiac rehabilitation. Patient has verbalized understanding of weight management education topic and the relation to disease managment. Patient's Daily Exercise Log will be scanned into [employer] once it is completed. These can be viewed by going under the Scanned Documents tab and looking for documents labeled Cardiac Rehabilitation. Daily Exercise Logs contain exercise data such as, but not limited to modality, intensity, duration and frequency of exercise, along with vital signs pre-, during, and post-exercise. Refer to patient's paper medical record for ECG rhythm strips, physician prescribed Individualized Treatment Plan, and education sessions covered. Avelino Aburto Health Care Specialist [facility] 11-27-2023 History of Present illness Narrative Images from the original note were not included. Cardiac Rehabilitation [facility] Supervising Physician: Len Menendez Diagnosis: Aortic Valve Replacement Phase: 2 Monitor: Yes Session Number: 21 Today's exercise session was comprised of a warm-up, aerobic conditioning phase, aerobic cool-down, and free weight resistance training. Patient tolerated prescribed exercise workload. Tele SR-ST without ectopic beats. Vitals WNL for patient. No chest discomfort. No medication changes. This is a hospital based cardiac rehab program. Patient working towards exercise goals by sustaining exercise intensity and duration. Patient working towards education goal by attending education sessions in cardiac rehabilitation. Patient has verbalized understanding of weight management education topic and the relation to disease managment. Patient's Daily Exercise Log will be scanned into [employer] once it is completed. These can be viewed by going under the Scanned Documents tab and looking for documents labeled Cardiac Rehabilitation. Daily Exercise Logs contain exercise data such as, but not limited to modality, intensity, duration and frequency of exercise, along with vital signs pre-, during, and post-exercise. Refer to patient's paper medical record for ECG rhythm strips, physician prescribed Individualized Treatment Plan, and education sessions covered. Avelino Aburto Health Care Specialist documented in this encounter [facility] 11-25-2023 Note HNO ID: [id number] Author: KATIE DECKER Health Care Specialist Service: ? Author Type: Health Care Specialist Type: Progress Notes Filed: 11/25/2023 08:10 Note Text: Cardiac Rehabilitation [facility] Supervising Physician: Len Menendez Diagnosis: Aortic Valve Replacement Phase: 2 Monitor: Yes Session Number: 20 Today's exercise session was comprised of a warm-up, aerobic conditioning phase, aerobic cool-down, and free weight resistance training. Patient tolerated prescribed exercise workload. Tele SR-ST without ectopic beats. Vitals WNL for patient. No chest discomfort. No medication changes. This is a hospital based cardiac rehab program. Patient working towards exercise goals by sustaining exercise intensity and duration. Patient working towards education goal by attending education sessions in cardiac rehabilitation. Patient has verbalized understanding of Diabetes education topic and the relation to disease managment. Patient's Daily Exercise Log will be scanned into [employer] once it is completed. These can be viewed by going under the Scanned Documents tab and looking for documents labeled Cardiac Rehabilitation. Daily Exercise Logs contain exercise data such as, but not limited to modality, intensity, duration and frequency of exercise, along with vital signs pre-, during, and post-exercise. Refer to patient's paper medical record for ECG rhythm strips, physician prescribed Individualized Treatment Plan, and education sessions covered. Katie Decker Health Care Specialist [facility] 11-25-2023 History of Present illness Narrative Images from the original note were not included. Cardiac Rehabilitation [facility] Supervising Physician: Len Menendez Diagnosis: Aortic Valve Replacement Phase: 2 Monitor: Yes Session Number: 20 Today's exercise session was comprised of a warm-up, aerobic conditioning phase, aerobic cool-down, and free weight resistance training. Patient tolerated prescribed exercise workload. Tele SR-ST without ectopic beats. Vitals WNL for patient. No chest discomfort. No medication changes. This is a hospital based cardiac rehab program. Patient working towards exercise goals by sustaining exercise intensity and duration. Patient working towards education goal by attending education sessions in cardiac rehabilitation. Patient has verbalized understanding of Diabetes education topic and the relation to disease managment. Patient's Daily Exercise Log will be scanned into [employer] once it is completed. These can be viewed by going under the Scanned Documents tab and looking for documents labeled Cardiac Rehabilitation. Daily Exercise Logs contain exercise data such as, but not limited to modality, intensity, duration and frequency of exercise, along with vital signs pre-, during, and post-exercise. Refer to patient's paper medical record for ECG rhythm strips, physician prescribed Individualized Treatment Plan, and education sessions covered. Katie Decker Health Care Specialist documented in this encounter [facility] 11-22-2023 Note HNO ID: [id number] Author: JOSIAH SUH lease picker Service: ? Author Type: Middle School Teacher Type: Progress Notes Filed: 11/22/2023 08:15 Note Text: Cardiac Rehabilitation [facility] Supervising Physician: Len Menendez Diagnosis: Aortic Valve Replacement Phase: 2 Monitor: Yes Session Number: 19 Today's exercise session was comprised of a warm-up, aerobic conditioning phase, aerobic cool-down, and free weight resistance training. Patient tolerated prescribed exercise workload. Tele SR-ST without ectopic beats. Vitals WNL for patient. No chest discomfort. No medication changes. This is a hospital based cardiac rehab program. Patient working towards exercise goals by increasing exercise duration. Patient working towards education goal by attending education sessions in cardiac rehabilitation. Patient has verbalized understanding of Cholestrol education topic and the relation to disease managment. Patient's Daily Exercise Log will be scanned into [employer] once it is completed. These can be viewed by going under the Scanned Documents tab and looking for documents labeled Cardiac Rehabilitation. Daily Exercise Logs contain exercise data such as, but not limited to modality, intensity, duration and frequency of exercise, along with vital signs pre-, during, and post-exercise. Refer to patient's paper medical record for ECG rhythm strips, physician prescribed Individualized Treatment Plan, and education sessions covered. Josiah Suh Health Care Specialist [facility] 11-22-2023 History of Present illness Narrative Images from the original note were not included. Cardiac Rehabilitation [facility] Supervising Physician: Len Menendez Diagnosis: Aortic Valve Replacement Phase: 2 Monitor: Yes Session Number: 19 Today's exercise session was comprised of a warm-up, aerobic conditioning phase, aerobic cool-down, and free weight resistance training. Patient tolerated prescribed exercise workload. Tele SR-ST without ectopic beats. Vitals WNL for patient. No chest discomfort. No medication changes. This is a hospital based cardiac rehab program. Patient working towards exercise goals by increasing exercise duration. Patient working towards education goal by attending education sessions in cardiac rehabilitation. Patient has verbalized understanding of Cholestrol education topic and the relation to disease managment. Patient's Daily Exercise Log will be scanned into [employer] once it is completed. These can be viewed by going under the Scanned Documents tab and looking for documents labeled Cardiac Rehabilitation. Daily Exercise Logs contain exercise data such as, but not limited to modality, intensity, duration and frequency of exercise, along with vital signs pre-, during, and post-exercise. Refer to patient's paper medical record for ECG rhythm strips, physician prescribed Individualized Treatment Plan, and education sessions covered. Josiah Suh Health Care Specialist documented in this encounter [facility] 11-20-2023 Note HNO ID: [id number] Author: AVELINO ABURTO Health Care Specialist Service: ? Author Type: Health Care Specialist Type: Progress Notes Filed: 11/20/2023 08:22 Note Text: Cardiac Rehabilitation [facility] Based Program Supervising Physician: Len Menendez Diagnosis: Aortic Valve Replacement Phase: 2 Monitor: Yes Session Number: 18 Today's exercise session was comprised of a warm-up, aerobic conditioning phase, aerobic cool-down, and free weight resistance training. Patient tolerated prescribed exercise workload. Tele SR-ST without ectopic beats. Vitals WNL for patient. No chest discomfort. No medication changes. This is a hospital based cardiac rehab program. Patient working towards exercise goals by increasing exercise intensity. Patient working towards education goal by attending education sessions in cardiac rehabilitation. Patient has verbalized understanding of blood pressure education topic and the relation to disease managment. Patient's Daily Exercise Log will be scanned into [employer] once it is completed. These can be viewed by going under the Scanned Documents tab and looking for documents labeled Cardiac Rehabilitation. Daily Exercise Logs contain exercise data such as, but not limited to modality, intensity, duration and frequency of exercise, along with vital signs pre-, during, and post-exercise. Refer to patient's paper medical record for ECG rhythm strips, physician prescribed Individualized Treatment Plan, and education sessions covered. Avelino Aburto Health Care Specialist [facility] 11-20-2023 History of Present illness Narrative Images from the original note were not included. Cardiac Rehabilitation Hospital Based Program Supervising Physician: Len Menendez Diagnosis: Aortic Valve Replacement Phase: 2 Monitor: Yes Session Number: 18 Today's exercise session was comprised of a warm-up, aerobic conditioning phase, aerobic cool-down, and free weight resistance training. Patient tolerated prescribed exercise workload. Tele SR-ST without ectopic beats. Vitals WNL for patient. No chest discomfort. No medication changes. This is a hospital based cardiac rehab program. Patient working towards exercise goals by increasing exercise intensity. Patient working towards education goal by attending education sessions in cardiac rehabilitation. Patient has verbalized understanding of blood pressure education topic and the relation to disease managment. Patient's Daily Exercise Log will be scanned into [employer] once it is completed. These can be viewed by going under the Scanned Documents tab and looking for documents labeled Cardiac Rehabilitation. Daily Exercise Logs contain exercise data such as, but not limited to modality, intensity, duration and frequency of exercise, along with vital signs pre-, during, and post-exercise. Refer to patient's paper medical record for ECG rhythm strips, physician prescribed Individualized Treatment Plan, and education sessions covered. Avelino Aburto Health Care Specialist documented in this encounter [facility] 11-18-2023 Note HNO ID: [id number] Author: KATIE DECKER Health Care Specialist Service: ? Author Type: Health Care Specialist Type: Progress Notes Filed: 11/18/2023 08:19 Note Text: Cardiac Rehabilitation [facility] Based Program Supervising Physician: Len Menendez Diagnosis: Aortic Valve Replacement Phase: 2 Monitor: Yes Session Number: 17 Today's exercise session was comprised of a warm-up, aerobic conditioning phase, aerobic cool-down, and free weight resistance training. Patient tolerated prescribed exercise workload. Tele SR-ST without ectopic beats. Vitals WNL for patient. No chest discomfort. No medication changes. This is a hospital based cardiac rehab program. Patient working towards exercise goals by sustaining exercise intensity and duration. Patient working towards education goal by attending education sessions in cardiac rehabilitation. Patient has verbalized understanding of Risk Factors education topic and the relation to disease managment. Patient's Daily Exercise Log will be scanned into [employer] once it is completed. These can be viewed by going under the Scanned Documents tab and looking for documents labeled Cardiac Rehabilitation. Daily Exercise Logs contain exercise data such as, but not limited to modality, intensity, duration and frequency of exercise, along with vital signs pre-, during, and post-exercise. Refer to patient's paper medical record for ECG rhythm strips, physician prescribed Individualized Treatment Plan, and education sessions covered. Katie Decker, Health Care Specialist [facility] 11-18-2023 History of Present illness Narrative Images from the original note were not included. Cardiac Rehabilitation Hospital Based Program Supervising Physician: eLn Menendez Diagnosis: Aortic Valve Replacement Phase: 2 Monitor: Yes Session Number: 17 Today's exercise session was comprised of a warm-up, aerobic conditioning phase, aerobic cool-down, and free weight resistance training. Patient tolerated prescribed exercise workload. Tele SR-ST without ectopic beats. Vitals WNL for patient. No chest discomfort. No medication changes. This is a hospital based cardiac rehab program. Patient working towards exercise goals by sustaining exercise intensity and duration. Patient working towards education goal by attending education sessions in cardiac rehabilitation. Patient has verbalized understanding of Risk Factors education topic and the relation to disease managment. Patient's Daily Exercise Log will be scanned into [employer] once it is completed. These can be viewed by going under the Scanned Documents tab and looking for documents labeled Cardiac Rehabilitation. Daily Exercise Logs contain exercise data such as, but not limited to modality, intensity, duration and frequency of exercise, along with vital signs pre-, during, and post-exercise. Refer to patient's paper medical record for ECG rhythm strips, physician prescribed Individualized Treatment Plan, and education sessions covered. Katie Decker Health Care Specialist documented in this encounter [facility] 11-15-2023 Note HNO ID: [id number] Author: AVELINO ABURTO Health Care Specialist Service: ? Author Type: Health Care Specialist Type: Progress Notes Filed: 11/15/2023 08:08 Note Text: Cardiac Rehabilitation [facility] Based Program Supervising Physician: Len Menendez Diagnosis: Aortic Valve Replacement Phase: 2 Monitor: Yes Session Number: 16 Today's exercise session was comprised of a warm-up, aerobic conditioning phase, aerobic cool-down, and free weight resistance training. Patient tolerated prescribed exercise workload. Tele SR-ST without ectopic beats. Vitals WNL for patient. No chest discomfort. No medication changes. This is a hospital based cardiac rehab program. Patient working towards exercise goals by sustaining exercise intensity and duration. Patient working towards education goal by attending education sessions in cardiac rehabilitation. Patient has verbalized understanding of Sugar, Fiber, NA+ education topic and the relation to disease managment. Patient's Daily Exercise Log will be scanned into [employer] once it is completed. These can be viewed by going under the Scanned Documents tab and looking for documents labeled Cardiac Rehabilitation. Daily Exercise Logs contain exercise data such as, but not limited to modality, intensity, duration and frequency of exercise, along with vital signs pre-, during, and post-exercise. Refer to patient's paper medical record for ECG rhythm strips, physician prescribed Individualized Treatment Plan, and education sessions covered. Avelino Aburto Health Care Specialist [facility] 11-15-2023 History of Present illness Narrative Images from the original note were not included. Cardiac Rehabilitation Hospital Based Program Supervising Physician: Len Menendez Diagnosis: Aortic Valve Replacement Phase: 2 Monitor: Yes Session Number: 16 Today's exercise session was comprised of a warm-up, aerobic conditioning phase, aerobic cool-down, and free weight resistance training. Patient tolerated prescribed exercise workload. Tele SR-ST without ectopic beats. Vitals WNL for patient. No chest discomfort. No medication changes. This is a hospital based cardiac rehab program. Patient working towards exercise goals by sustaining exercise intensity and duration. Patient working towards education goal by attending education sessions in cardiac rehabilitation. Patient has verbalized understanding of Sugar, Fiber, NA+ education topic and the relation to disease managment. Patient's Daily Exercise Log will be scanned into [employer]SEC once it is completed. These can be viewed by going under the Scanned Documents tab and looking for documents labeled Cardiac Rehabilitation. Daily Exercise Logs contain exercise data such as, but not limited to modality, intensity, duration and frequency of exercise, along with vital signs pre-, during, and post-exercise. Refer to patient's paper medical record for ECG rhythm strips, physician prescribed Individualized Treatment Plan, and education sessions covered. Avelino Aburto Health Care Specialist documented in this encounter [facility] 11-13-2023 Note HNO ID: [id number] Author: AVELINO ABURTO Health Care Specialist Service: ? Author Type: Health Care Specialist Type: Progress Notes Filed: 11/13/2023 08:16 Note Text: Cardiac Rehabilitation Hospital Based Program Supervising Physician: Len Menendez Diagnosis: Aortic Valve Replacement Phase: 2 Monitor: Yes Session Number: 15 Today's exercise session was comprised of a warm-up, aerobic conditioning phase, aerobic cool-down, and free weight resistance training. Patient tolerated prescribed exercise workload. Tele SR-ST without ectopic beats. Vitals WNL for patient. No chest discomfort. No medication changes. This is a hospital based cardiac rehab program. Patient working towards exercise goals by increasing exercise duration. Patient working towards education goal by attending education sessions in cardiac rehabilitation. Patient has verbalized understanding of med diet education topic and the relation to disease managment. Patient's Daily Exercise Log will be scanned into [employer] once it is completed. These can be viewed by going under the Scanned Documents tab and looking for documents labeled Cardiac Rehabilitation. Daily Exercise Logs contain exercise data such as, but not limited to modality, intensity, duration and frequency of exercise, along with vital signs pre-, during, and post-exercise. Refer to patient's paper medical record for ECG rhythm strips, physician prescribed Individualized Treatment Plan, and education sessions covered. Avelino Aburto Health Care Specialist [facility] 11-13-2023 History of Present illness Narrative Images from the original note were not included. Cardiac Rehabilitation Hospital Based Program Supervising Physician: Len Menendez Diagnosis: Aortic Valve Replacement Phase: 2 Monitor: Yes Session Number: 15 Today's exercise session was comprised of a warm-up, aerobic conditioning phase, aerobic cool-down, and free weight resistance training. Patient tolerated prescribed exercise workload. Tele SR-ST without ectopic beats. Vitals WNL for patient. No chest discomfort. No medication changes. This is a hospital based cardiac rehab program. Patient working towards exercise goals by increasing exercise duration. Patient working towards education goal by attending education sessions in cardiac rehabilitation. Patient has verbalized understanding of med diet education topic and the relation to disease managment. Patient's Daily Exercise Log will be scanned into [employer] once it is completed. These can be viewed by going under the Scanned Documents tab and looking for documents labeled Cardiac Rehabilitation. Daily Exercise Logs contain exercise data such as, but not limited to modality, intensity, duration and frequency of exercise, along with vital signs pre-, during, and post-exercise. Refer to patient's paper medical record for ECG rhythm strips, physician prescribed Individualized Treatment Plan, and education sessions covered. Avelino Aburto Health Care Specialist documented in this encounter [facility] 11-11-2023 Note HNO ID: [id number] Author: KATIE DECKER Health Care Specialist Service: ? Author Type: Health Care Specialist Type: Progress Notes Filed: 11/11/2023 08:16 Note Text: Cardiac Rehabilitation [facility] Based Program Supervising Physician: Len Menendez Diagnosis: Aortic Valve Replacement Phase: 2 Monitor: Yes Session Number: 14 Today's exercise session was comprised of a warm-up, aerobic conditioning phase, aerobic cool-down, and free weight resistance training. Patient tolerated prescribed exercise workload. Tele SR-ST without ectopic beats. Vitals WNL for patient. No chest discomfort. No medication changes. This is a hospital based cardiac rehab program. Patient working towards exercise goals by increasing exercise intensity. Patient working towards education goal by attending education sessions in cardiac rehabilitation. Patient has verbalized understanding of Reading [employer] education topic and the relation to disease managment. Patient's Daily Exercise Log will be scanned into [employer]SEC once it is completed. These can be viewed by going under the Scanned Documents tab and looking for documents labeled Cardiac Rehabilitation. Daily Exercise Logs contain exercise data such as, but not limited to modality, intensity, duration and frequency of exercise, along with vital signs pre-, during, and post-exercise. Refer to patient's paper medical record for ECG rhythm strips, physician prescribed Individualized Treatment Plan, and education sessions covered. Katie Decker Health Care Specialist [facility] 11-11-2023 History of Present illness Narrative Images from the original note were not included. Cardiac Rehabilitation Hospital Based Program Supervising Physician: Len Menendez Diagnosis: Aortic Valve Replacement Phase: 2 Monitor: Yes Session Number: 14 Today's exercise session was comprised of a warm-up, aerobic conditioning phase, aerobic cool-down, and free weight resistance training. Patient tolerated prescribed exercise workload. Tele SR-ST without ectopic beats. Vitals WNL for patient. No chest discomfort. No medication changes. This is a hospital based cardiac rehab program. Patient working towards exercise goals by increasing exercise intensity. Patient working towards education goal by attending education sessions in cardiac rehabilitation. Patient has verbalized understanding of [employer] education topic and the relation to disease managment. Patient's Daily Exercise Log will be scanned into [employer]SEC once it is completed. These can be viewed by going under the Scanned Documents tab and looking for documents labeled Cardiac Rehabilitation. Daily Exercise Logs contain exercise data such as, but not limited to modality, intensity, duration and frequency of exercise, along with vital signs pre-, during, and post-exercise. Refer to patient's paper medical record for ECG rhythm strips, physician prescribed Individualized Treatment Plan, and education sessions covered. Katie Decker Health Care Specialist documented in this encounter [facility] 11-08-2023 Note HNO ID: [id number] Author: LEN SANTACRUZ DO Service: ? Author Type: Health Care Specialist Type: Progress Notes Filed: 11/12/2023 07:57 Note Text: Attestation signed by Len Santacruz DO at 11/12/2023 7:57 AM I have reviewed the detailed Individualized Treatment Plan assessment and plan for the patient as described above and agree with the recommendations. Len Santacruz DO, [facility], [facility] Clinical and Preventive Cardiology Department of Medicine and Division of Cardiology, [facility] Staff [employer] Reporter, Osman Emery Department of Cardiovascular Medicine/Heart and Vascular [place], [facility] Clinical press operator assistant Profressor of Medicine, [facility] Cardiac Rehabilitation Hospital Based Program Supervising Physician: Len Menendez Diagnosis: AVR Phase: 2 Monitor: Yes Session Number: 13 Today's exercise session was comprised of a warm-up, aerobic conditioning phase, aerobic cool-down, and free weight resistance training. Patient tolerated prescribed exercise workload. Tele SB-SR-ST without ectopic beats. Vitals WNL for patient. No chest discomfort. No medication changes. This is a hospital based cardiac rehab program. Patient working towards exercise goals by sustaining exercise intensity and duration. Patient working towards education goal by attending education sessions in cardiac rehabilitation. Patient has verbalized understanding of med diet education topic and the relation to disease managment. Patient's Daily Exercise Log will be scanned into TOPSEC once it is completed. These can be viewed by going under the Scanned Documents tab and looking for documents labeled Cardiac Rehabilitation. Daily Exercise Logs contain exercise data such as, but not limited to modality, intensity, duration and frequency of exercise, along with vital signs pre-, during, and post-exercise. Refer to patient's paper medical record for ECG rhythm strips, physician prescribed Individualized Treatment Plan, and education sessions covered. Avelino Aburto, Health Care Specialist Patient's 30 day ITP located in 30 day doc flowsheet. [facility] 11-06-2023 Note HNO ID: [id number] Author: JOSIAH SUH, lease picker Service: ? Author Type: Middle School Teacher Type: Progress Notes Filed: 11/06/2023 08:19 Note Text: Cardiac Rehabilitation Hospital Based Program Supervising Physician: Len Menendez Diagnosis: Aortic Valve Replacement Phase: 2 Monitor: Yes Session Number: 12 Today's exercise session was comprised of a warm-up, aerobic conditioning phase, aerobic cool-down, and free weight resistance training. Patient tolerated prescribed exercise workload. Tele SR-ST without ectopic beats. Vitals WNL for patient. No chest discomfort. No medication changes. This is a hospital based cardiac rehab program. Patient working towards exercise goals by increasing exercise intensity. Patient working towards education goal by attending education sessions in cardiac rehabilitation. Patient has verbalized understanding of Heart Failure education topic and the relation to disease managment. Patient's Daily Exercise Log will be scanned into TOPSEC once it is completed. These can be viewed by going under the Scanned Documents tab and looking for documents labeled Cardiac Rehabilitation. Daily Exercise Logs contain exercise data such as, but not limited to modality, intensity, duration and frequency of exercise, along with vital signs pre-, during, and post-exercise. Refer to patient's paper medical record for ECG rhythm strips, physician prescribed Individualized Treatment Plan, and education sessions covered. Josiah Suh, Health Care Specialist [facility] 11-06-2023 History of Present illness Narrative Images from the original note were not included. Cardiac Rehabilitation Hospital Based Program Supervising Physician: Len Menendez Diagnosis: Aortic Valve Replacement Phase: 2 Monitor: Yes Session Number: 12 Today's exercise session was comprised of a warm-up, aerobic conditioning phase, aerobic cool-down, and free weight resistance training. Patient tolerated prescribed exercise workload. Tele SR-ST without ectopic beats. Vitals WNL for patient. No chest discomfort. No medication changes. This is a hospital based cardiac rehab program. Patient working towards exercise goals by increasing exercise intensity. Patient working towards education goal by attending education sessions in cardiac rehabilitation. Patient has verbalized understanding of Heart Failure education topic and the relation to disease managment. Patient's Daily Exercise Log will be scanned into TOPSEC once it is completed. These can be viewed by going under the Scanned Documents tab and looking for documents labeled Cardiac Rehabilitation. Daily Exercise Logs contain exercise data such as, but not limited to modality, intensity, duration and frequency of exercise, along with vital signs pre-, during, and post-exercise. Refer to patient's paper medical record for ECG rhythm strips, physician prescribed Individualized Treatment Plan, and education sessions covered. Josiah Suh Health Care Specialist documented in this encounter [facility] 11-04-2023 Note HNO ID: [id number] Author: KATIE DECKER Health Care Specialist Service: ? Author Type: Health Care Specialist Type: Progress Notes Filed: 11/04/2023 08:21 Note Text: Cardiac Rehabilitation Hospital Based Program Supervising Physician: Len Menendez Diagnosis: Aortic Valve Replacement Phase: 2 Monitor: Yes Session Number: 11 Today's exercise session was comprised of a warm-up, aerobic conditioning phase, aerobic cool-down, and free weight resistance training. Patient tolerated prescribed exercise workload. Tele SR-ST without ectopic beats. Vitals WNL for patient. No chest discomfort. No medication changes. This is a hospital based cardiac rehab program. Patient working towards exercise goals by increasing exercise duration. Patient working towards education goal by attending education sessions in cardiac rehabilitation. Patient has verbalized understanding of Heart Valves education topic and the relation to disease managment. Patient's Daily Exercise Log will be scanned into TOPSEC once it is completed. These can be viewed by going under the Scanned Documents tab and looking for documents labeled Cardiac Rehabilitation. Daily Exercise Logs contain exercise data such as, but not limited to modality, intensity, duration and frequency of exercise, along with vital signs pre-, during, and post-exercise. Refer to patient's paper medical record for ECG rhythm strips, physician prescribed Individualized Treatment Plan, and education sessions covered. Katie Decker Health Care Specialist [facility] 11-01-2023 Note HNO ID: [id number] Author: KATIE DECKER Exercise Physiologist Service: ? Author Type: Health Care Specialist Type: Progress Notes Filed: 11/01/2023 08:01 Note Text: Cardiac Rehabilitation Hospital Based Program Supervising Physician: Len Menendez Diagnosis: Aortic Valve Replacement Phase: 2 Monitor: Yes Session Number: 10 Today's exercise session was comprised of a warm-up, aerobic conditioning phase, aerobic cool-down, and free weight resistance training. Patient tolerated prescribed exercise workload. Tele SR-ST without ectopic beats. Vitals WNL for patient. No chest discomfort. No medication changes. This is a hospital based cardiac rehab program. Patient working towards exercise goals by sustaining exercise intensity and duration. Patient working towards education goal by attending education sessions in cardiac rehabilitation. Patient has verbalized understanding of Angina, CA, NTG education topic and the relation to disease managment. Patient's Daily Exercise Log will be scanned into TOPSEC once it is completed. These can be viewed by going under the Scanned Documents tab and looking for documents labeled Cardiac Rehabilitation. Daily Exercise Logs contain exercise data such as, but not limited to modality, intensity, duration and frequency of exercise, along with vital signs pre-, during, and post-exercise. Refer to patient's paper medical record for ECG rhythm strips, physician prescribed Individualized Treatment Plan, and education sessions covered. Katie Decker Health Care Specialist [facility] 11-01-2023 History of Present illness Narrative Images from the original note were not included. Cardiac Rehabilitation Hospital Based Program Supervising Physician: Len Menendez Diagnosis: Aortic Valve Replacement Phase: 2 Monitor: Yes Session Number: 10 Today's exercise session was comprised of a warm-up, aerobic conditioning phase, aerobic cool-down, and free weight resistance training. Patient tolerated prescribed exercise workload. Tele SR-ST without ectopic beats. Vitals WNL for patient. No chest discomfort. No medication changes. This is a hospital based cardiac rehab program. Patient working towards exercise goals by sustaining exercise intensity and duration. Patient working towards education goal by attending education sessions in cardiac rehabilitation. Patient has verbalized understanding of Angina, CA, NTG education topic and the relation to disease managment. Patient's Daily Exercise Log will be scanned into TOPSEC once it is completed. These can be viewed by going under the Scanned Documents tab and looking for documents labeled Cardiac Rehabilitation. Daily Exercise Logs contain exercise data such as, but not limited to modality, intensity, duration and frequency of exercise, along with vital signs pre-, during, and post-exercise. Refer to patient's paper medical record for ECG rhythm strips, physician prescribed Individualized Treatment Plan, and education sessions covered. Katie Decker Health Care Specialist documented in this encounter [facility] 10-30-2023 Note HNO ID: [id number] Author: CASS MARI RN Service: ? Author Type: Registered Nurse Type: Progress Notes Filed: 10/30/2023 11:44 Note Text: QOL Call Tracking Documentation Follow-Up Type: Phone Call Call Attempt: 1st Attempt Call Status: Left Message [facility] 10-30-2023 History of Present illness Narrative QOL Call Tracking Documentation Follow-Up Type: Phone Call Call Attempt: 1st Attempt Call Status: Left Message documented in this encounter [facility] 10-30-2023 Note HNO ID: [id number] Author: KATIE DECKER Health Care Specialist Service: ? Author Type: Health Care Specialist Type: Progress Notes Filed: 10/30/2023 08:09 Note Text: Cardiac Rehabilitation Hospital Based Program Supervising Physician: Len Menendez Diagnosis: Aortic Valve Replacement Phase: 2 Monitor: Yes Session Number: 9 Today's exercise session was comprised of a warm-up, aerobic conditioning phase, aerobic cool-down, and free weight resistance training. Patient tolerated prescribed exercise workload. Tele SR-ST without ectopic beats. Vitals WNL for patient. No chest discomfort. No medication changes. This is a hospital based cardiac rehab program. Patient working towards exercise goals by sustaining exercise intensity and duration. Patient working towards education goal by attending education sessions in cardiac rehabilitation. Patient has verbalized understanding of CAD education topic and the relation to disease managment. Patient's Daily Exercise Log will be scanned into TOPSEC once it is completed. These can be viewed by going under the Scanned Documents tab and looking for documents labeled Cardiac Rehabilitation. Daily Exercise Logs contain exercise data such as, but not limited to modality, intensity, duration and frequency of exercise, along with vital signs pre-, during, and post-exercise. Refer to patient's paper medical record for ECG rhythm strips, physician prescribed Individualized Treatment Plan, and education sessions covered. Katie Decker Health Care Specialist [facility] 10-30-2023 History of Present illness Narrative Images from the original note were not included. Cardiac Rehabilitation Hospital Based Program Supervising Physician: Len Menendez Diagnosis: Aortic Valve Replacement Phase: 2 Monitor: Yes Session Number: 9 Today's exercise session was comprised of a warm-up, aerobic conditioning phase, aerobic cool-down, and free weight resistance training. Patient tolerated prescribed exercise workload. Tele SR-ST without ectopic beats. Vitals WNL for patient. No chest discomfort. No medication changes. This is a hospital based cardiac rehab program. Patient working towards exercise goals by sustaining exercise intensity and duration. Patient working towards education goal by attending education sessions in cardiac rehabilitation. Patient has verbalized understanding of CAD education topic and the relation to disease managment. Patient's Daily Exercise Log will be scanned into TOPSEC once it is completed. These can be viewed by going under the Scanned Documents tab and looking for documents labeled Cardiac Rehabilitation. Daily Exercise Logs contain exercise data such as, but not limited to modality, intensity, duration and frequency of exercise, along with vital signs pre-, during, and post-exercise. Refer to patient's paper medical record for ECG rhythm strips, physician prescribed Individualized Treatment Plan, and education sessions covered. Katie Decker Health Care Specialist documented in this encounter [facility] 10-30-2023 Note Patient Outreach ([facility]) HENSONMARTIN MODI ([id number]) 1955 M Date Time Provider Department 10/30/23 CASS MARI During your visit today, we recorded the following information about you: Cass Mari RN 10/30/2023 11:44 AM Signed QOL Call Tracking Documentation Follow-Up Type: Phone Call Call Attempt: 1st Attempt Call Status: Left Message Allergies As of Date: 10/30/2023 (No Active Allergies) Date Reviewed: 09/18/2023 Reviewed by: Pat Ye HUC - Fully Assessed Prescriptions as of 10/30/2023 - lisinopril (ZESTRIL) 5 mg tablet Take 1 tablet by mouth once daily. - empagliflozin (JARDIANCE) 10 mg tablet Take 1 tablet by mouth daily with breakfast. - doxycycline (VIBRA-TABS) 100 mg tablet Take 1 tablet by mouth two times a day. - omeprazole (PRILOSEC) 40 mg capsule Take 1 capsule by mouth once daily. - aspirin, enteric coated (ASPIRIN, ENTERIC COATED) 81 mg EC tablet Take 1 tablet by mouth once daily. - atorvastatin (LIPITOR) 20 mg tablet Take 1 tablet by mouth daily at bedtime. - cetirizine (ZYRTEC) 10 mg tablet Take 1 tablet by mouth once daily as needed for cold/allergy symptoms. - acetaminophen (TYLENOL) 325 mg tablet Take 2 tablets by mouth every 6 hours as needed (for mild surgical pain). - furosemide (LASIX) 40 mg tablet Take 1 tablet by mouth once daily for 7 days. - metoprolol succinate ER (TOPROL XL) 100 mg Take 1.5 tablets by mouth daily with breakfast AND 1 tablet daily at bedtime. - docusate sodium (COLACE) 100 mg capsule Take 1 capsule by mouth two times a day. - MULTIVITAMIN TAB Take one(1) tablet daily. Problem List As Of Date 10/30/2023 Noted Resolved JOINT PAIN-UNSPEC [M25.50] 05/20/2006 10/03/2006 SPRAIN SHOULDER/ARM NOS [[id number]] 05/20/2006 10/03/2006 Complete rupture of rotator cuff [M75.120] 10/03/2006 Obesity (BMI 30-39.9) [E66.9] 02/16/2011 Special screening for malignant neoplasms, colo*03/13/2011 Nonrheumatic aortic valve stenosis [I35.0] 06/25/2023 Aortic root dilatation (HCC) [I77.810] 07/24/2023 Angina pectoris (HCC) [I20.9] 07/24/2023 Discharge planning issues [Z02.9] 07/24/2023 Encounter for support and coordination of trans*07/24/2023 Aortic stenosis due to bicuspid aortic valve [Q*07/29/2023 On mechanically assisted ventilation (HCC) [Z99*07/29/2023 Hypovolemia [E86.1] 07/29/2023 AI (aortic insufficiency) [I35.1] 07/29/2023 Hypotension [I95.9] 07/29/2023 Postoperative pain [G89.18] 07/29/2023 Aphasia [R47.01] 07/30/2023 Primary hypertension [I10] 07/30/2023 Hypervolemia [E87.70] 08/01/2023 Postoperative ileus (HCC) [K91.89, K56.7] 08/02/2023 Hyperlipidemia LDL goal <70 [E78.5] 08/03/2023 Gastroesophageal reflux disease without esophag*08/03/2023 ABLA (acute blood loss anemia) [D62] 08/03/2023 Thrombocytopenia (HCC) [D69.6] 08/03/2023 Hypertrophic cardiomyopathy (HCC) [I42.2] 09/18/2023 Obesity, Class I, BMI 30-34.9 [E66.9] 09/18/2023 Encounter Status:Closed by CASS MARI on 10/30/23 [facility] 10-28-2023 History of Present illness Narrative Images from the original note were not included. Cardiac Rehabilitation Hospital Based Program Supervising Physician: Len Menendez Diagnosis: Aortic Valve Replacement Phase: 2 Monitor: Yes Session Number: 8 Today's exercise session was comprised of a warm-up, aerobic conditioning phase, aerobic cool-down, and free weight resistance training. Patient tolerated prescribed exercise workload. Tele SR-ST without ectopic beats. Vitals WNL for patient. No chest discomfort. No medication changes. This is a hospital based cardiac rehab program. Patient working towards exercise goals by increasing exercise duration. Patient working towards education goal by attending education sessions in cardiac rehabilitation. Patient has verbalized understanding of cardiac A&P education topic and the relation to disease managment. Patient's Daily Exercise Log will be scanned into TOPSEC once it is completed. These can be viewed by going under the Scanned Documents tab and looking for documents labeled Cardiac Rehabilitation. Daily Exercise Logs contain exercise data such as, but not limited to modality, intensity, duration and frequency of exercise, along with vital signs pre-, during, and post-exercise. Refer to patient's paper medical record for ECG rhythm strips, physician prescribed Individualized Treatment Plan, and education sessions covered. Avelino Aburto Health Care Specialist documented in this encounter [facility] 10-28-2023 Note HNO ID: [id number] Author: AVELINO ABURTO Health Care Specialist Service: ? Author Type: Health Care Specialist Type: Progress Notes Filed: 10/28/2023 08:12 Note Text: Cardiac Rehabilitation Hospital Based Program Supervising Physician: Len Menendez Diagnosis: Aortic Valve Replacement Phase: 2 Monitor: Yes Session Number: 8 Today's exercise session was comprised of a warm-up, aerobic conditioning phase, aerobic cool-down, and free weight resistance training. Patient tolerated prescribed exercise workload. Tele SR-ST without ectopic beats. Vitals WNL for patient. No chest discomfort. No medication changes. This is a hospital based cardiac rehab program. Patient working towards exercise goals by increasing exercise duration. Patient working towards education goal by attending education sessions in cardiac rehabilitation. Patient has verbalized understanding of cardiac AANDP education topic and the relation to disease managment. Patient's Daily Exercise Log will be scanned into TOPSEC once it is completed. These can be viewed by going under the Scanned Documents tab and looking for documents labeled Cardiac Rehabilitation. Daily Exercise Logs contain exercise data such as, but not limited to modality, intensity, duration and frequency of exercise, along with vital signs pre-, during, and post-exercise. Refer to patient's paper medical record for ECG rhythm strips, physician prescribed Individualized Treatment Plan, and education sessions covered. Avelino Aburto Health Care Specialist [facility] 10-25-2023 Note HNO ID: [id number] Author: AVELINO ABURTO Health Care Specialist Service: ? Author Type: Health Care Specialist Type: Progress Notes Filed: 10/25/2023 08:19 Note Text: Cardiac Rehabilitation Hospital Based Program Supervising Physician: Len Menendez Diagnosis: Aortic Valve Replacement Phase: 2 Monitor: Yes Session Number: 7 Today's exercise session was comprised of a warm-up, aerobic conditioning phase, aerobic cool-down, and free weight resistance training. Patient tolerated prescribed exercise workload. Tele SR-ST without ectopic beats. Vitals WNL for patient. No chest discomfort. No medication changes. This is a hospital based cardiac rehab program. Patient working towards exercise goals by increasing exercise intensity. Patient working towards education goal by attending education sessions in cardiac rehabilitation. Patient has verbalized understanding of advanced directives education topic and the relation to disease managment. Patient's Daily Exercise Log will be scanned into TOPSEC once it is completed. These can be viewed by going under the Scanned Documents tab and looking for documents labeled Cardiac Rehabilitation. Daily Exercise Logs contain exercise data such as, but not limited to modality, intensity, duration and frequency of exercise, along with vital signs pre-, during, and post-exercise. Refer to patient's paper medical record for ECG rhythm strips, physician prescribed Individualized Treatment Plan, and education sessions covered. Avelino Aburto Health Care Specialist [facility] 10-25-2023 History of Present illness Narrative Images from the original note were not included. Cardiac Rehabilitation Hospital Based Program Supervising Physician: Len Menendez Diagnosis: Aortic Valve Replacement Phase: 2 Monitor: Yes Session Number: 7 Today's exercise session was comprised of a warm-up, aerobic conditioning phase, aerobic cool-down, and free weight resistance training. Patient tolerated prescribed exercise workload. Tele SR-ST without ectopic beats. Vitals WNL for patient. No chest discomfort. No medication changes. This is a hospital based cardiac rehab program. Patient working towards exercise goals by increasing exercise intensity. Patient working towards education goal by attending education sessions in cardiac rehabilitation. Patient has verbalized understanding of advanced directives education topic and the relation to disease managment. Patient's Daily Exercise Log will be scanned into TOPSEC once it is completed. These can be viewed by going under the Scanned Documents tab and looking for documents labeled Cardiac Rehabilitation. Daily Exercise Logs contain exercise data such as, but not limited to modality, intensity, duration and frequency of exercise, along with vital signs pre-, during, and post-exercise. Refer to patient's paper medical record for ECG rhythm strips, physician prescribed Individualized Treatment Plan, and education sessions covered. Avelino Aburto Health Care Specialist documented in this encounter [facility] 10-23-2023 Note HNO ID: [id number] Author: JOSIAH SUH lease picker Service: ? Author Type: Middle School Teacher Type: Progress Notes Filed: 10/23/2023 08:09 Note Text: Cardiac Rehabilitation [facility] Based Program Supervising Physician: Len Menendez Diagnosis: Aortic Valve Replacement Phase: 2 Monitor: Yes Session Number: 6 Today's exercise session was comprised of a warm-up, aerobic conditioning phase, aerobic cool-down, and free weight resistance training. Patient tolerated prescribed exercise workload. Tele SR-ST without ectopic beats. Vitals WNL for patient. No chest discomfort. No medication changes. This is a hospital based cardiac rehab program. Patient working towards exercise goals by increasing exercise duration. Patient working towards education goal by attending education sessions in cardiac rehabilitation. Patient has verbalized understanding of Depression education topic and the relation to disease managment. Patient's Daily Exercise Log will be scanned into TOPSEC once it is completed. These can be viewed by going under the Scanned Documents tab and looking for documents labeled Cardiac Rehabilitation. Daily Exercise Logs contain exercise data such as, but not limited to modality, intensity, duration and frequency of exercise, along with vital signs pre-, during, and post-exercise. Refer to patient's paper medical record for ECG rhythm strips, physician prescribed Individualized Treatment Plan, and education sessions covered. Josiah Suh Health Care Specialist [facility] 10-23-2023 History of Present illness Narrative Images from the original note were not included. Cardiac Rehabilitation [facility] Based Program Supervising Physician: Len Menendez Diagnosis: Aortic Valve Replacement Phase: 2 Monitor: Yes Session Number: 6 Today's exercise session was comprised of a warm-up, aerobic conditioning phase, aerobic cool-down, and free weight resistance training. Patient tolerated prescribed exercise workload. Tele SR-ST without ectopic beats. Vitals WNL for patient. No chest discomfort. No medication changes. This is a hospital based cardiac rehab program. Patient working towards exercise goals by increasing exercise duration. Patient working towards education goal by attending education sessions in cardiac rehabilitation. Patient has verbalized understanding of Depression education topic and the relation to disease managment. Patient's Daily Exercise Log will be scanned into [employer]SEC once it is completed. These can be viewed by going under the Scanned Documents tab and looking for documents labeled Cardiac Rehabilitation. Daily Exercise Logs contain exercise data such as, but not limited to modality, intensity, duration and frequency of exercise, along with vital signs pre-, during, and post-exercise. Refer to patient's paper medical record for ECG rhythm strips, physician prescribed Individualized Treatment Plan, and education sessions covered. Josiah Suh Health Care Specialist documented in this encounter [facility] 10-21-2023 Note HNO ID: [id number] Author: AVELINO ABURTO Health Care Specialist Service: ? Author Type: Health Care Specialist Type: Progress Notes Filed: 10/21/2023 08:17 Note Text: Cardiac Rehabilitation Hospital Based Program Supervising Physician: Len Menendez Diagnosis: Aortic Valve Replacement Phase: 2 Monitor: Yes Session Number: 5 Today's exercise session was comprised of a warm-up, aerobic conditioning phase, aerobic cool-down, and free weight resistance training. Patient tolerated prescribed exercise workload. Tele SR-ST without ectopic beats. Vitals WNL for patient. No chest discomfort. No medication changes. This is a hospital based cardiac rehab program. Patient working towards exercise goals by sustaining exercise intensity and duration. Patient working towards education goal by attending education sessions in cardiac rehabilitation. Patient has verbalized understanding of stress management education topic and the relation to disease managment. Patient's Daily Exercise Log will be scanned into TOPSEC once it is completed. These can be viewed by going under the Scanned Documents tab and looking for documents labeled Cardiac Rehabilitation. Daily Exercise Logs contain exercise data such as, but not limited to modality, intensity, duration and frequency of exercise, along with vital signs pre-, during, and post-exercise. Refer to patient's paper medical record for ECG rhythm strips, physician prescribed Individualized Treatment Plan, and education sessions covered. Avelino Aburto Health Care Specialist [facility] 10-21-2023 History of Present illness Narrative Images from the original note were not included. Cardiac Rehabilitation [facility] Based Program Supervising Physician: Len Menendez Diagnosis: Aortic Valve Replacement Phase: 2 Monitor: Yes Session Number: 5 Today's exercise session was comprised of a warm-up, aerobic conditioning phase, aerobic cool-down, and free weight resistance training. Patient tolerated prescribed exercise workload. Tele SR-ST without ectopic beats. Vitals WNL for patient. No chest discomfort. No medication changes. This is a hospital based cardiac rehab program. Patient working towards exercise goals by sustaining exercise intensity and duration. Patient working towards education goal by attending education sessions in cardiac rehabilitation. Patient has verbalized understanding of stress management education topic and the relation to disease managment. Patient's Daily Exercise Log will be scanned into TOPSEC once it is completed. These can be viewed by going under the Scanned Documents tab and looking for documents labeled Cardiac Rehabilitation. Daily Exercise Logs contain exercise data such as, but not limited to modality, intensity, duration and frequency of exercise, along with vital signs pre-, during, and post-exercise. Refer to patient's paper medical record for ECG rhythm strips, physician prescribed Individualized Treatment Plan, and education sessions covered. Avelino Aburto Health Care Specialist documented in this encounter [facility] 10-18-2023 Note HNO ID: [id number] Author: AVELINO ABURTO Health Care Specialist Service: ? Author Type: Health Care Specialist Type: Progress Notes Filed: 10/18/2023 08:19 Note Text: Cardiac Rehabilitation [facility] Based Program Supervising Physician: Len Menendez Diagnosis: Aortic Valve Replacement Phase: 2 Monitor: Yes Session Number: 4 Today's exercise session was comprised of a warm-up, aerobic conditioning phase, aerobic cool-down, and free weight resistance training. Patient tolerated prescribed exercise workload. Tele SR-ST without ectopic beats. Vitals WNL for patient. No chest discomfort. No medication changes. This is a hospital based cardiac rehab program. Patient working towards exercise goals by sustaining exercise intensity and duration. Patient working towards education goal by attending education sessions in cardiac rehabilitation. Patient has verbalized understanding of exercise education topic and the relation to disease managment. Patient's Daily Exercise Log will be scanned into TOPSEC once it is completed. These can be viewed by going under the Scanned Documents tab and looking for documents labeled Cardiac Rehabilitation. Daily Exercise Logs contain exercise data such as, but not limited to modality, intensity, duration and frequency of exercise, along with vital signs pre-, during, and post-exercise. Refer to patient's paper medical record for ECG rhythm strips, physician prescribed Individualized Treatment Plan, and education sessions covered. Avelino Aburto Health Care Specialist [facility] 10-18-2023 History of Present illness Narrative Images from the original note were not included. Cardiac Rehabilitation Hospital Based Program Supervising Physician: Len Menendez Diagnosis: Aortic Valve Replacement Phase: 2 Monitor: Yes Session Number: 4 Today's exercise session was comprised of a warm-up, aerobic conditioning phase, aerobic cool-down, and free weight resistance training. Patient tolerated prescribed exercise workload. Tele SR-ST without ectopic beats. Vitals WNL for patient. No chest discomfort. No medication changes. This is a hospital based cardiac rehab program. Patient working towards exercise goals by sustaining exercise intensity and duration. Patient working towards education goal by attending education sessions in cardiac rehabilitation. Patient has verbalized understanding of exercise education topic and the relation to disease managment. Patient's Daily Exercise Log will be scanned into TOPSEC once it is completed. These can be viewed by going under the Scanned Documents tab and looking for documents labeled Cardiac Rehabilitation. Daily Exercise Logs contain exercise data such as, but not limited to modality, intensity, duration and frequency of exercise, along with vital signs pre-, during, and post-exercise. Refer to patient's paper medical record for ECG rhythm strips, physician prescribed Individualized Treatment Plan, and education sessions covered. Avelino Aburto Health Care Specialist documented in this encounter [facility] 10-16-2023 Note HNO ID: [id number] Author: JOSIAH SUH, lease picker Service: ? Author Type: Middle School Teacher Type: Progress Notes Filed: 10/16/2023 08:13 Note Text: Cardiac Rehabilitation Hospital Based Program Supervising Physician: Len Menendez Diagnosis: Aortic Valve Replacement Phase: 2 Monitor: Yes Session Number: 3 Today's exercise session was comprised of a warm-up, aerobic conditioning phase, aerobic cool-down, and free weight resistance training. Patient tolerated prescribed exercise workload. Tele SR-ST without ectopic beats. Vitals WNL for patient. No chest discomfort. No medication changes. This is a hospital based cardiac rehab program. Patient working towards exercise goals by increasing exercise duration. Patient working towards education goal by attending education sessions in cardiac rehabilitation. Patient has verbalized understanding of Weight Control education topic and the relation to disease managment. Patient's Daily Exercise Log will be scanned into TOPSEC once it is completed. These can be viewed by going under the Scanned Documents tab and looking for documents labeled Cardiac Rehabilitation. Daily Exercise Logs contain exercise data such as, but not limited to modality, intensity, duration and frequency of exercise, along with vital signs pre-, during, and post-exercise. Refer to patient's paper medical record for ECG rhythm strips, physician prescribed Individualized Treatment Plan, and education sessions covered. Josiah Suh, Health Care Specialist [facility] 10-16-2023 History of Present illness Narrative Images from the original note were not included. Cardiac Rehabilitation Hospital Based Program Supervising Physician: Len Menendez Diagnosis: Aortic Valve Replacement Phase: 2 Monitor: Yes Session Number: 3 Today's exercise session was comprised of a warm-up, aerobic conditioning phase, aerobic cool-down, and free weight resistance training. Patient tolerated prescribed exercise workload. Tele SR-ST without ectopic beats. Vitals WNL for patient. No chest discomfort. No medication changes. This is a hospital based cardiac rehab program. Patient working towards exercise goals by increasing exercise duration. Patient working towards education goal by attending education sessions in cardiac rehabilitation. Patient has verbalized understanding of Weight Control education topic and the relation to disease managment. Patient's Daily Exercise Log will be scanned into [employer]SEC once it is completed. These can be viewed by going under the Scanned Documents tab and looking for documents labeled Cardiac Rehabilitation. Daily Exercise Logs contain exercise data such as, but not limited to modality, intensity, duration and frequency of exercise, along with vital signs pre-, during, and post-exercise. Refer to patient's paper medical record for ECG rhythm strips, physician prescribed Individualized Treatment Plan, and education sessions covered. Josiah Suh Health Care Specialist documented in this encounter [facility] 10-14-2023 Note HNO ID: [id number] Author: AVELINO ABURTO Health Care Specialist Service: ? Author Type: Health Care Specialist Type: Progress Notes Filed: 10/14/2023 08:09 Note Text: Cardiac Rehabilitation Hospital Based Program Supervising Physician: Len Menendez Diagnosis: Aortic Valve Replacement Phase: 2 Monitor: Yes Session Number: 2 Today's exercise session was comprised of a warm-up, aerobic conditioning phase, aerobic cool-down, and free weight resistance training. Patient tolerated prescribed exercise workload. Tele SR-ST without ectopic beats. Vitals WNL for patient. No chest discomfort. No medication changes. This is a hospital based cardiac rehab program. Patient working towards exercise goals by increasing exercise duration. Patient working towards education goal by attending education sessions in cardiac rehabilitation. Patient has verbalized understanding of diabetes education topic and the relation to disease managment. Patient's Daily Exercise Log will be scanned into TOPSEC once it is completed. These can be viewed by going under the Scanned Documents tab and looking for documents labeled Cardiac Rehabilitation. Daily Exercise Logs contain exercise data such as, but not limited to modality, intensity, duration and frequency of exercise, along with vital signs pre-, during, and post-exercise. Refer to patient's paper medical record for ECG rhythm strips, physician prescribed Individualized Treatment Plan, and education sessions covered. Avelino Aburto Health Care Specialist [facility] 10-14-2023 History of Present illness Narrative Images from the original note were not included. Cardiac Rehabilitation Hospital Based Program Supervising Physician: Len Menendez Diagnosis: Aortic Valve Replacement Phase: 2 Monitor: Yes Session Number: 2 Today's exercise session was comprised of a warm-up, aerobic conditioning phase, aerobic cool-down, and free weight resistance training. Patient tolerated prescribed exercise workload. Tele SR-ST without ectopic beats. Vitals WNL for patient. No chest discomfort. No medication changes. This is a hospital based cardiac rehab program. Patient working towards exercise goals by increasing exercise duration. Patient working towards education goal by attending education sessions in cardiac rehabilitation. Patient has verbalized understanding of diabetes education topic and the relation to disease managment. Patient's Daily Exercise Log will be scanned into TOPSEC once it is completed. These can be viewed by going under the Scanned Documents tab and looking for documents labeled Cardiac Rehabilitation. Daily Exercise Logs contain exercise data such as, but not limited to modality, intensity, duration and frequency of exercise, along with vital signs pre-, during, and post-exercise. Refer to patient's paper medical record for ECG rhythm strips, physician prescribed Individualized Treatment Plan, and education sessions covered. Avelino Aburto Health Care Specialist documented in this encounter [facility] 10-11-2023 Note HNO ID: [id number] Author: AVELINO ABURTO Health Care Specialist Service: ? Author Type: Health Care Specialist Type: Progress Notes Filed: 10/11/2023 08:10 Note Text: Cardiac Rehabilitation Hospital Based Program Supervising Physician: Len Menendez Diagnosis: Aortic Valve Replacement Phase: 2 Monitor: Yes Session Number: 1 Today's exercise session was comprised of a warm-up, aerobic conditioning phase, aerobic cool-down, and free weight resistance training. Patient tolerated prescribed exercise workload. Tele SR-ST without ectopic beats. Vitals WNL for patient. No chest discomfort. No medication changes. This is a hospital based cardiac rehab program. Patient working towards exercise goals by increasing exercise intensity and duration. Patient working towards education goal by attending education sessions in cardiac rehabilitation. Patient has verbalized understanding of cholesterol education topic and the relation to disease managment. Patient's Daily Exercise Log will be scanned into TOPSEC once it is completed. These can be viewed by going under the Scanned Documents tab and looking for documents labeled Cardiac Rehabilitation. Daily Exercise Logs contain exercise data such as, but not limited to modality, intensity, duration and frequency of exercise, along with vital signs pre-, during, and post-exercise. Refer to patient's paper medical record for ECG rhythm strips, physician prescribed Individualized Treatment Plan, and education sessions covered. Avelino Aburto Health Care Specialist [facility] 10-11-2023 History of Present illness Narrative Images from the original note were not included. Cardiac Rehabilitation Hospital Based Program Supervising Physician: Len Menendez Diagnosis: Aortic Valve Replacement Phase: 2 Monitor: Yes Session Number: 1 Today's exercise session was comprised of a warm-up, aerobic conditioning phase, aerobic cool-down, and free weight resistance training. Patient tolerated prescribed exercise workload. Tele SR-ST without ectopic beats. Vitals WNL for patient. No chest discomfort. No medication changes. This is a hospital based cardiac rehab program. Patient working towards exercise goals by increasing exercise intensity and duration. Patient working towards education goal by attending education sessions in cardiac rehabilitation. Patient has verbalized understanding of cholesterol education topic and the relation to disease managment. Patient's Daily Exercise Log will be scanned into TOPSEC once it is completed. These can be viewed by going under the Scanned Documents tab and looking for documents labeled Cardiac Rehabilitation. Daily Exercise Logs contain exercise data such as, but not limited to modality, intensity, duration and frequency of exercise, along with vital signs pre-, during, and post-exercise. Refer to patient's paper medical record for ECG rhythm strips, physician prescribed Individualized Treatment Plan, and education sessions covered. Avelino Aburto Health Care Specialist documented in this encounter [facility] 10-09-2023 Note HNO ID: [id number] Author: LEN SANTACRUZ DO Service: ? Author Type: Health Care Specialist Type: Progress Notes Filed: 10/18/2023 17:12 Note Text: Attestation signed by Len Santacruz DO at 10/18/2023 5:12 PM I have reviewed the detailed Individualized Treatment Plan assessment and plan for the patient as described above and agree with the recommendations. Len Santacruz DO, FACC, FACOI Clinical and Preventive Cardiology Department of Medicine and Division of Cardiology, [facility] Staff [employer], Osman Emery Department of Cardiovascular Medicine/Heart and Vascular [place], [facility] Clinical press operator assistant Profressor of Medicine, [facility] Heart and Vascular [place] Osman Lin Department of Cardiovascular Medicine Initial Assessment for Cardiac Rehab Martin Henson 10/09/2023 CHIEF COMPLAINT: Martin Henson is a 68 year old male seen today. Patient presents with: Cardiac Rehab Eval: Initial Assessment HISTORY OF PRESENT ILLNESS: AVR PAST MEDICAL HISTORY Diagnosis Date Aortic stenosis Bicuspid aortic valve Hemorrhoids HLD (hyperlipidemia) HTN (hypertension) Primary cardiomyopathy (HCC) PAST SURGICAL HISTORY Procedure Laterality Date ARTHROPLASTY GLENOHUMRL JT HEMIARTHROPLASTY 07/2006 Arthroplasty, shoulder: torn rotator cuff (right) COLONOSCOPY FLX DX W/COLLJ SPEC WHEN PFRMD 04/09/11 TONSILLECTOMY PRIMARY/SECONDARY Tonsillectomy XCAPSL CTRC RMVL INSJ IO LENS PROSTH W/O ECP 2006 Cataract Removal bilateral Social History Tobacco Use Smoking status: Never Smokeless tobacco: Current Types: Snuff Vaping Use Vaping Use: Never used Alcohol use: Yes Comment: very rarely Drug use: No FAMILY HISTORY Problem Relation Age of Onset Cancer Mother breast Arthritis Mother Hypertension Mother Heart Father atrial fib Stroke Father ? A-fib related Hypertension Sister Hypertension Brother Colon Cancer Other none Prostate Cancer Other none Diabetes Other none CURRENT MEDS: Current Outpatient Medications Medication Sig lisinopril (ZESTRIL) 5 mg tablet Take 1 tablet by mouth once daily. empagliflozin (JARDIANCE) 10 mg tablet Take 1 tablet by mouth daily with breakfast. doxycycline (VIBRA-TABS) 100 mg tablet Take 1 tablet by mouth two times a day. (Patient not taking: Reported on 09/18/2023) omeprazole (PRILOSEC) 40 mg capsule Take 1 capsule by mouth once daily. aspirin, enteric coated (ASPIRIN, ENTERIC COATED) 81 mg EC tablet Take 1 tablet by mouth once daily. atorvastatin (LIPITOR) 20 mg tablet Take 1 tablet by mouth daily at bedtime. cetirizine (ZYRTEC) 10 mg tablet Take 1 tablet by mouth once daily as needed for cold/allergy symptoms. acetaminophen (TYLENOL) 325 mg tablet Take 2 tablets by mouth every 6 hours as needed (for mild surgical pain). furosemide (LASIX) 40 mg tablet Take 1 tablet by mouth once daily for 7 days. (Patient not taking: Reported on 09/18/2023) metoprolol succinate ER (TOPROL XL) 100 mg Take 1.5 tablets by mouth daily with breakfast AND 1 tablet daily at bedtime. docusate sodium (COLACE) 100 mg capsule Take 1 capsule by mouth two times a day. (Patient not taking: Reported on 09/18/2023) MULTIVITAMIN TAB Take one(1) tablet daily. No current facility-administered medications for this visit. ALLERGIES No Active Allergies PHYSICAL EXAMINATION: BP 118/80 Pulse 90 Ht 6' 1 (1.85m) Wt 248 lb 14.4 oz (112.9kg) SpO2 96[RA]% BMI 32.85 kg/(m2). INDIVIDUAL TREATMENT PLAN Program Location: [place] Cardiac Rehab evaluation site : [facility] Cardiac Rehab Completed : [place] Program: Entry Phase II Primary Reason For Referral: Valve/Aorta Surgery EXERCISE ASSESSMENT Current Exercise: Yes Type of Exercise: Walk Exercise Duration: 25 minutes Exercise Intensity: Moderate Exercise Equipment: No Exercise Limitations/Symptoms: No Assist Device: No Oxygen: No Stress Test: No 6 Minute Walk Test: Yes Date: 10/09/23 Distance (ft): 1350 Total Rest Time (seconds): 0 Lowest SPO2: 97 (RA) Peak Heart Rate BPM: 112 EXERCISE PLAN EXERCISE INTERVENTIONS Frequency: 3-5 Times Per Week Mode: Treadmill;Recumbent Stepper;Recumbent Bike;Weights Intensity: Within Set Target Heart Rate;Within Target Met Level;RPE of 3-5;RPE of 11-14 METS: 2-4 METS initially, can progress beyond 4 METS as tolerated as long as staying within THR and/or RPE. Target Heart Rate (BPM): 91-122 Workload: 60-80% age max heart rate RPE: 11-14 Initial Duration (minutes): 20 minutes Progression: 5 Minutes Every 2-3 Weeks as Tolerated;0.5 Mets Every 1-2 Weeks as Tolerated;Within Target (more content not included)... [facility] 09-18-2023 Instructions Deena Francois MD - 09/18/2023 4:21 PM EST PLAN AND RECOMMENDATIONS: no change in current meds - Start Cardiac Rehab - Always avoid heavy lifting , nothing above 35-40 pounds - Keep you Blood Pressure lower between 100 and 135: start Lisinopril 5 mg/day and Jardiance 10 - F/U in 3 months documented in this encounter [facility] 09-18-2023 Note HNO ID: [id number] Author: DEENA FRANCOIS MD Service: ? Author Type: Physician Type: Progress Notes Filed: 09/22/2023 14:22 Note Text: Heart, Vascular and Thoracic [place] Osman Lin Department of Cardiovascular Medicine SECTION OF CLINICAL CARDIOLOGY OUTPATIENT VISIT DATE September 18, 2023 OUTPATIENT VISIT TYPE ESTABLISHED PRIMARY CARE PHYSICIAN: ABDIEL MATHEWS [address] [place] [address] REFERRING PHYSICIAN: No referring provider defined for this encounter. CHIEF COMPLAINT: Post-op Mr. Henson is a 67 year old male with severe concentric LV hypertrophy - more prominent on septal wall, without hemodynamic obstruction at baseline but with small gradient of 17 mmHg with Valsalva maneuver- and severe /BAV/ Ao root dilation at 4.5-4.6 cm cm at the sinuses and distal ascending aorta levels. There is MAC with mild MS and MR based on TTE+MRI. 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 He comes to [facility] for surgical correction of his aortic aneurysm and valvular heart disease. Important/Relevant PMH/PSH: Bicuspid aortic valve complicated by severe aortic stenosis (peak 103, mean 55 mmHg with AV area 0.93 cm2 and dimensionless valve index 0.24) with moderate aortic regurgitation and severe LVH; aortic dilation (4.5 cm at sinus), HTN, and HLD, cataract removal Operations 07/29/2023: Upper nohemi-sternotomy AVR (#25 Inspiris), Ascending aortoplasty A/P s/p AVR - ASA, BB s/p Asc Aortoplasty - ASA, BB. BP control. No Postop CTA Chest needed per Dr. Navarro Postop SQ emphysema on right anterior chest - (Improving). RA, Recent CXR - No PTX h/o HTN (Lopressor, Lisinopril, HCTZ) - BP elevated but pt needs more HR control. dc Lisinopril, increased Toprol. Continue lasix h/o HLP (Recent LDL - 121, Lipitor) - LFTs - Mildly elevated. Continue Lipitor h/o GERD (PPI) - No acute reflux. Continue PPI ABLA - H/H stable. No s/s of bleeding. Postop thrombocytopenia - Plts - improving, no signs or symptoms of bleeding. Continue to monitor Postop Ileus - Recent KUB showing improvement. + BMs, Continue anti-constipation meds Expressive aphasia on POD 0 - 2CLOT - negative acute findings on imaging. Speech deficits resolved. ASA, statin Postop Pain - Received blocks in OR. Pain controlled on Tylenol PRN, Lido patches. Dispo - 67[place] [address]. No dc needs. CM following. OPD and [facility] Cards - req. Okay to dc 08/05/2023 per CTS HISTORY OF PRESENT ILLNESS: Mr. Henson is a 67 year old male who presents today for a cardiovascular medicine follow-up visit after cardiac surgery as stated above. He denies chest pain, shortness of breath, orthopnea, cough, edema, palpitations, PND, lightheadedness or syncope. PAST CARDIAC HISTORY: None, see above PAST MEDICAL HISTORY Diagnosis Date Aortic stenosis Bicuspid aortic valve Hemorrhoids HLD (hyperlipidemia) HTN (hypertension) Primary cardiomyopathy (HCC) PAST SURGICAL HISTORY Procedure Laterality Date ARTHROPLASTY GLENOHUMRL JT HEMIARTHROPLASTY 07/2006 Arthroplasty, shoulder: torn rotator cuff (right) COLONOSCOPY FLX DX W/COLLJ SPEC WHEN PFRMD 04/09/11 TONSILLECTOMY PRIMARY/SECONDARY Tonsillectomy XCAPSL CTRC RMVL INSJ IO LENS PROSTH W/O ECP 2006 Cataract Removal bilateral SOCIAL HISTORY Social History Tobacco Use Smoking status: Never Smokeless tobacco: Current Types: Snuff Vaping Use Vaping Use: Never used Substance Use Topics Alcohol use: Yes Comment: very rarely Drug use: No FAMILY HISTORY Problem Relation Age of Onset Cancer Mother breast Arthritis Mother Hypertension Mother Heart Father atrial fib Stroke Father ? A-fib related Hypertension Sister Hypertension Brother Colon Cancer Other none Prostate Cancer Other none Diabetes Other none Patient-Entered Questionnaire Scores PROMIS Global Health - (T-Scores - the mean of general population = 50. Five points is a clinically meaningful difference.) 08/28/2023 Physical T-Score 47.7 Mental T-Score 50.8 Sleep Duration Level: N/A ALLERGIES: ALLERGIES No Active Allergies MEDICATIONS: omeprazole (PRILOSEC) 40 mg capsule Take 1 capsule by mouth once daily. aspirin, enteric coated (ASPIRIN, ENTERIC COATED) 81 mg EC tablet Take 1 tablet by mouth once daily. atorvastatin (LIPITOR) 20 mg tablet Take 1 tablet by mouth daily at bedtime. cetirizine (ZYRTEC) 10 mg tablet Take 1 tablet by mouth once daily as needed for cold/allergy symptoms. acetaminophen (TYLENOL) 325 mg tablet Take 2 tablets by mouth every 6 hours as needed (for mild surgical pain). metoprolol succinate ER (TOPROL XL) 100 mg Take 1.5 tablets by mouth daily with breakfast AND 1 tablet daily at bedtime. MULTIVITAMIN TAB Take one(1) tablet daily. doxycycline (VIBRA-TABS) 100 mg tablet Take 1 tablet by mouth two times a day. (Patient not (more content not included)... [facility] 09-18-2023 History of Present illness Narrative Images from the original note were not included. [facility] [place] [facility] Department of Cardiovascular Medicine SECTION OF CLINICAL CARDIOLOGY OUTPATIENT VISIT DATE September 18, 2023 OUTPATIENT VISIT TYPE ESTABLISHED PRIMARY CARE PHYSICIAN: ABDIEL MATHEWS [address] [place] [address] REFERRING PHYSICIAN: No referring provider defined for this encounter. CHIEF COMPLAINT: Post-op Mr. Henson is a 67 year old male with severe concentric LV hypertrophy - more prominent on septal wall, without hemodynamic obstruction at baseline but with small gradient of 17 mmHg with Valsalva maneuver- and severe /BAV/ Ao root dilation at 4.5-4.6 cm cm at the sinuses and distal ascending aorta levels. There is MAC with mild MS and MR based on TTE+MRI. 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 [facility] to [facility] for surgical correction of his aortic aneurysm and valvular heart disease. Important/Relevant PMH/PSH: Bicuspid aortic valve complicated by severe aortic stenosis (peak 103, mean 55 mmHg with AV area 0.93 cm2 and dimensionless valve index 0.24) with moderate aortic regurgitation and severe LVH; aortic dilation (4.5 cm at sinus), HTN, and HLD, cataract removal Operations 07/29/2023: Upper nohemi-sternotomy AVR (#25 Inspiris), Ascending aortoplasty A/P s/p AVR - ASA, BB s/p Asc Aortoplasty - ASA, BB. BP control. No Postop CTA Chest needed per Dr. Navarro Postop SQ emphysema on right anterior chest - (Improving). RA, Recent CXR - No PTX h/o HTN (Lopressor, Lisinopril, HCTZ) - BP elevated but pt needs more HR control. dc Lisinopril, increased Toprol. Continue lasix h/o HLP (Recent LDL - 121, Lipitor) - LFTs - Mildly elevated. Continue Lipitor h/o GERD (PPI) - No acute reflux. Continue PPI ABLA - H/H stable. No s/s of bleeding. Postop thrombocytopenia - Plts - improving, no signs or symptoms of bleeding. Continue to monitor Postop Ileus - Recent KUB showing improvement. + BMs, Continue anti-constipation meds Expressive aphasia on POD 0 - 2CLOT - negative acute findings on imaging. Speech deficits resolved. ASA, statin Postop Pain - Received blocks in OR. Pain controlled on Tylenol PRN, Lido patches. Dispo - 67[place] [address]. No dc needs. CM following. [facility]PD and [facility] Cards - req. Okay to dc 08/05/2023 per CTS HISTORY OF PRESENT ILLNESS: Mr. Henson is a 67 year old male who presents today for a cardiovascular medicine follow-up visit after cardiac surgery as stated above. He denies chest pain, shortness of breath, orthopnea, cough, edema, palpitations, PND, lightheadedness or syncope. PAST CARDIAC HISTORY: None, see above PAST MEDICAL HISTORY Diagnosis Date Aortic stenosis Bicuspid aortic valve Hemorrhoids HLD (hyperlipidemia) HTN (hypertension) Primary cardiomyopathy (HCC) PAST SURGICAL HISTORY Procedure Laterality Date ARTHROPLASTY GLENOHUMRL JT HEMIARTHROPLASTY 07/2006 Arthroplasty, shoulder: torn rotator cuff (right) COLONOSCOPY FLX DX W/COLLJ SPEC WHEN PFRMD 04/09/11 TONSILLECTOMY PRIMARY/SECONDARY <AGE 12 Tonsillectomy XCAPSL CTRC RMVL INSJ IO LENS PROSTH W/O ECP 2006 Cataract Removal bilateral SOCIAL HISTORY Social History Tobacco Use Smoking status: Never Smokeless tobacco: Current Types: Snuff Vaping Use Vaping Use: Never used Substance Use Topics Alcohol use: Yes Comment: very rarely Drug use: No FAMILY HISTORY Problem Relation Age of Onset Cancer Mother breast Arthritis Mother Hypertension Mother Heart Father atrial fib Stroke Father ? A-fib related Hypertension Sister Hypertension Brother Colon Cancer Other none Prostate Cancer Other none Diabetes Other none Patient-Entered Questionnaire Scores PROMIS Global Health - (T-Scores - the mean of general population = 50. Five points is a clinically meaningful difference.) 08/28/2023 Physical T-Score 47.7 Mental T-Score 50.8 Sleep Duration Level: N/A ALLERGIES: ALLERGIES No Active Allergies MEDICATIONS: omeprazole (PRILOSEC) 40 mg capsule Take 1 capsule by mouth once daily. aspirin, enteric coated (ASPIRIN, ENTERIC COATED) 81 mg EC tablet Take 1 tablet by mouth once daily. atorvastatin (LIPITOR) 20 mg tablet Take 1 tablet by mouth daily at bedtime. cetirizine (ZYRTEC) 10 mg tablet Take 1 tablet by mouth once daily as needed for cold/allergy symptoms. acetaminophen (TYLENOL) 325 mg tablet Take 2 tablets by mouth every 6 hours as needed (for mild surgical pain). metoprolol succinate ER (TOPROL XL) 100 mg Take 1.5 tablets by mouth daily with breakfast AND 1 tablet daily at bedtime. MULTIVITAMIN TAB Take one(1) tablet daily. doxycycline (VIBRA-TABS) 100 mg tablet Take 1 tablet by mouth two times a day. (Patient not taking: Reported on 09/18/2023) furosemide (LASIX) 40 mg tablet Take 1 tablet by mouth once daily for 7 days. (Patient not taking: Reported on 09/18/2023) docusate sodium (COLACE) 100 mg capsule Take 1 capsule by mouth two times a day. (Patient not taking: Reported on 09/18/2023) REVIEW OF SYSTEMS: GENERAL: Negative for: Weight loss or gain, Fever or Chills, Weakness and Sleep difficulties. HEENT: Negative for: Headache, Impaired Vision, Glasses, Hearing Impairment, Ringing in Ears, Nosebleeds, Poor dental care, Bleeding Gums, Dentures NECK: Negative for: Swelling, Pain, Stiffness RESPIRATORY: Negative for: Cough, Blood in Sputum, Shortness of breath, Wheezing, Apnea GASTROINTESTINAL: Negative for: Trouble swallowing, Heartburn, Change in bowel habits, Blood in stool, Dark black stools MUSCULOSKELETAL: Negative for: Muscle or joint pain, Stiffness , Joint swelling NEUROLOGIC/PSYCHIATRIC: Negative for: Weakness, Paralysis, Numbness, Tingling, Tremor, Nervousness, Depressed mood, Memory loss SKIN: Negative for: Rashes, Itching HEMATOLOGICAL/LYMPHATIC: Negative for: Easy bruising , Easy bleeding ENDOCRINE: Negative for: Heat or cold intolerance, Excessive sweating, Frequent urination, Frequent thirst RESPIRATORY: Negative for: Cough, Blood in Sputum, Shortness of breath, Wheezing. PHYSICAL EXAMINATION: BP 147/86 (BP Site: Left Arm, BP Position: Sitting, BP Cuff Size: Regular Adult) Pulse 86 Ht 185.4 cm (6' 1) Wt 111.1 kg (245 lb) SpO2 98% BMI 32.32 kg/m General: Well appearing, in no acute distress. Skin: No clubbing, no cyanosis. Eyes: Extra ocular movements intact Oropharynx: Teeth in good repair. Neck: No jugular venous distention, no carotid bruits, carotids have a normal upstroke, no palpable thyromegaly. Lungs: Clear to auscultation bilaterally, no wheezing or rhonchi. Heart: Regular rhythm, PMI not displaced, S1, S2 normal, no S3, no S4, no heaves, no rub and no murmur. Abdomen: Soft, nontender, bowel sounds normal, no palpable organomegaly, no bruits. Extremities: No peripheral edema . Grade 2/4 distal pulses bilaterally. Neuro: Oriented to person, place and time, alert, cooperative, gait coordinated. CARDIOVASCULAR MEDICINE TESTING: Electrocardiogram: see below Last ECHO Result Conclusion ECHO Collected: 07/24/2023 8:02 AM (Final result) Impression: CONCLUSIONS: - Exam indication: Pre- op AVR, Myectomy - The left ventricle is normal in size. There is severe concentric left ventricular hypertrophy. Left ventricular systolic function is normal. EF = 63 5% (2D biplane) - The right ventricle is mildly dilated. Right ventricular systolic function is normal. - The visualized aorta is dilated with a maximal dimension of 4.5 cm. - There is moderate (2+) aortic valve regurgitation due to sclerosis. There is severe aortic valve stenosis caused by calcified valve and restricted opening. AV area is 0.93 cm (0.39 cm /m ) by continuity, VTI. The peak gradient is 103 mmHg, the mean gradient is 55 mmHg and the dimensionless valve index is 0.24. - There is no SANJEEV, there is LV cavity obliteration from severe LVH- mid cavitary gradient has a peak of 17mmHg with valsalva (Clip #115). - The patient has not had a prior CC echocardiographic exam for comparison. * * * Final * * * Last EKG Result Conclusion ECG COMPLETE Collected: 09/18/2023 1:51 PM (Preliminary result) Impression: NORMAL SINUS RHYTHM LEFT VENTRICULAR HYPERTROPHY WITH REPOLARIZATION ABNORMALITY ( Sokolow-Salcedo ) POSSIBLE INFERIOR MYOCARDIAL INFARCTION , AGE UNDETERMINED ABNORMAL ECG Last MRI Result Conclusion MRA CHEST CARDIOVASCULAR WO IVCON Exam End: 07/24/2023 5:20 PM (Final result) Impression: IMPRESSION: 1. Bicuspid aortic valve with likely fusion of the right and left coronary cusp with associated signal dephasing suggestive of significant aortic stenosis, could correlate with echocardiographic findings. There is concomitant moderate aortic regurgitation (regurgitant volume 21 mL, regurgitant fraction 25%). 2. The left ventricle is normal in size (LV EDVI = 93 mL/m ), with severe concentric wall thickening (mid-basal IVS measuring up to 2.2 cm), and normal systolic function (LVEF = 56%). Delayed imaging is slightly suboptimal quality with suggestion of mild RV insertion point LGE, though without convincing evidence to suggest a diffuse infiltrative process. T1 mapping/ECV were not performed. 3. The right ventricle is normal in size (RV EDVI = 64 mL/m ), with normal systolic function (RVEF = 61%) 4. There is moderate ectasia of the aortic root (4.6 cm), and mid ascending aorta (4.5 cm). The remainder of the thoracic aorta is normal in course, contour, and caliber, without acute pathology. 5. There is trace to mild qualitative mitral valve regurgitation. 6. The main PA is dilated 3.5 cm. * * * Final * * * RP Box Toe Stitcher: ZAC Transcribe Date/Time: Jul 24 2023 4:11P Dictated by : ANN LEACH MD This examination was interpreted and the report reviewed and electronically signed by: ANN LEACH MD on Jul 25 2023 10:36AM EST I have personally reviewed the Electrocardiogram. IMPRESSION: Mr Santizo 67 yo with due to BAV, and pre-op findings of severe concentric LV hypertrophy - more prominent on septal wall, without hemodynamic obstruction at baseline but with small gradient of 17 mmHg with Valsalva maneuver- and severe /BAV/ Ao root dilation at 4.5-4.6 cm cm at the sinuses and distal ascending aorta levels. There is MAC with mild MS and MR based on TTE+MRI. Mr. Henson is a 67 year old male who had AVR (INSPIRIS #25) and aortoplasty of root on 07/29/23. Has LVH++(diastolic dysfunction) Now mild right sided CP, no other symptome, feels good, actually better than before. Exam: no CHF, beautiful sternal scar, lungs OK, Aortic valve systolic murmur 2-3/6 as expected. ECG: NSR with LV hypertrophy and strain, 79 bpm PLAN AND RECOMMENDATIONS: no change in current meds - Start Cardiac Rehab - Always avoid heavy lifting , nothing above 35-40 pounds - Keep you Blood Pressure lower between 100 and 135: start Lisinopril 5 mg/day and Jardiance 10 - F/U in 3 months CONTACT INFORMATION: Deena Francois MD documented in this encounter [facility] 12-04-2023 Miscellaneous Notes We are calling to check on how you are doing since our last phone call. Are you having any medical concerns we can help you with today? -No new medical concerns today. Call Outcome: All Clear All clear and closing statement given. PD RN verified patients name and date of . Teresa Patel RN documented in this encounter [facility] 08-08-2023 History of Present illness Narrative Images from the original note were not included. [facility] [place] [facility] Department of Cardiovascular Medicine DEPARTMENT OF CARDIAC SURGERY OUTPATIENT VISIT DATE August 08, 2023 OUTPATIENT VISIT TYPE POSTOPERATIVE Martin Henson is a 67 year old male who presents who is here for post operative follow up HPI: SURGERY/PROCEDURE DATE: 07/29/2023 INCISION/PROCEDURE START TIME: 8:11 AM INCISION CLOSE/PROCEDURE END TIME: 11:35 AM SURGEON(S)/PROCEDURALIST(S) AND DISHWASHING MACHINE REPAIRER(S): Surgeon(s) and Role: * Usha Navarro MD - Primary * Greg Casas MD - Assisting Registered Nurse Compensation And Hris Analyst: Nabor Sheehan RN ANESTHESIA: General CTS OP REPORTS PROCEDURE(S): Aorta Procedures Aortic Valve Replacement PREOPERATIVE DIAGNOSIS: Aorta Aneurysm Aortic Valve Regurgitation and Aortic Valve Stenosis POSTOPERATIVE DIAGNOSIS: Same as preop FINDINGS: Indications: 67 year old male with hypertension, hyperlipidemia, obesity, and known bicuspid aortic stenosis followed with serial echocardiograms with progressive shortness of breath who presents for surgical valve replacement. He underwent cardiac MRI in the setting of concern for cardiac amyloidosis and cardiomyopathy which revealed an ectatic ascending aorta. LHC did not reveal any obstructive CAD and ECHO revealed preserved bi-ventricular function with severe aortic stenosis and moderate aortic insufficiency without any other hemodynamically significant valvular disease. Procedures performed: 1. Upper nohemi-sternotomy; 2. AVR (#25 Inspiris bio-prosthetic valve); and 3. Ascending aortoplasty Findings: 1. Preserved bi-ventricular function pre and post CPB; 2. True bicuspid ewiiaapaayp aortic valve with heavy calcification of both the leaflets and the annulus; and 3. Ectatic ascending aorta Chest tubes: anterior mediastinal (32F straight argyle) and right pleural (32F straight argyle) Temporary pacing wires: ventricular (to pull) Anti-coagulation plan: ASA only for now DESCRIPTION OF PROCEDURE: Operative Approach: J-Incision (Upper Hemisternotomy) Discharged on 08/05/23 PAST MEDICAL HISTORY Diagnosis Date Aortic stenosis Bicuspid aortic valve Hemorrhoids HLD (hyperlipidemia) HTN (hypertension) Primary cardiomyopathy (HCC) PAST SURGICAL HISTORY Procedure Laterality Date ARTHROPLASTY GLENOHUMRL JT HEMIARTHROPLASTY 07/2006 Arthroplasty, shoulder: torn rotator cuff (right) COLONOSCOPY FLX DX W/COLLJ SPEC WHEN PFRMD 04/09/11 TONSILLECTOMY PRIMARY/SECONDARY <AGE 12 Tonsillectomy XCAPSL CTRC RMVL INSJ IO LENS PROSTH W/O ECP 2005 Cataract Removal bilateral ALLERGIES No Active Allergies Current Outpatient Medications Medication Sig omeprazole (PRILOSEC) 40 mg capsule Take 1 capsule by mouth once daily. aspirin, enteric coated (ASPIRIN, ENTERIC COATED) 81 mg EC tablet Take 1 tablet by mouth once daily. atorvastatin (LIPITOR) 20 mg tablet Take 1 tablet by mouth daily at bedtime. cetirizine (ZYRTEC) 10 mg tablet Take 1 tablet by mouth once daily as needed for cold/allergy symptoms. acetaminophen (TYLENOL) 325 mg tablet Take 2 tablets by mouth every 6 hours as needed (for mild surgical pain). furosemide (LASIX) 40 mg tablet Take 1 tablet by mouth once daily for 7 days. lidocaine (SALONPAS) 4 % patch Apply 2 Patches as directed once daily. APPLY TO: CHEST and Chest tube sites - Remove patch after 12 hours. metoprolol succinate ER (TOPROL XL) 100 mg Take 1.5 tablets by mouth daily with breakfast AND 1 tablet daily at bedtime. docusate sodium (COLACE) 100 mg capsule Take 1 capsule by mouth two times a day. potassium chloride ER (KLOR-CON) 20 mEq tablet Take 1 tablet by mouth once daily for 7 days. magnesium oxide (MAG-OX) 400 mg (241.3 mg magnesium) tablet Take 2 tablets by mouth once daily for 7 days. MULTIVITAMIN TAB Take one(1) tablet daily. No current facility-administered medications for this visit. Chief Complaints: I feel good Discharge Post Operative Course: Pain scale :No: 0 on a scale of 0 to 10 Appetite: appetite good Activity: Walking ad nirmala around the house Elimination: normal, no constipation Sleep: no problems with sleep Mood: normal Incisions/Wounds: healing Review of Systems: HEENT: No complaints offered, Negative for fevers since discharge, chills, and night sweats Cardiac: Denies significant problems, chest pain, orthopnea, and leg edema Respiratory: no sob Musculoskeletal: No history of joint swelling, joint pain, or loss of range of motion. Neuro: Denies neurological complaints, headaches, dizziness, visual changes, paresthesia, neuropathy, focal weakness , or tremors Physical Exam: There were no vitals taken for this visit. Appearance: male, in no acute distress Neck: No neck vein distention Cardiac: regular S1, S2, No murmur Lungs: Clear breath sounds bilaterally without wheeze or dullness Abdomen: soft, non tender Extremities: No edema Sternum: stable, no click Sternotomy site: healing, clean, dry and intact, no cellulitis Wound: NA SV Dudley sites: n/a Radial Artery Dudley site: n/s Procedures: Sutures removed from chest tube sites without difficulty. IMPRESSION & PLAN: 1. SURGERY/PROCEDURE DATE: 07/29/2023 INCISION/PROCEDURE START TIME: 8:11 AM INCISION CLOSE/PROCEDURE END TIME: 11:35 AM SURGEON(S)/PROCEDURALIST(S) AND DISHWASHING MACHINE REPAIRER(S): Surgeon(s) and Role: * Usha Navarro MD - Primary * Greg Casas MD - Assisting Registered Nurse Compensation And Hris Analyst: Nabor Sheehan RN ANESTHESIA: General CTS OP REPORTS PROCEDURE(S): Aorta Procedures Aortic Valve Replacement PREOPERATIVE DIAGNOSIS: Aorta Aneurysm Aortic Valve Regurgitation and Aortic Valve Stenosis POSTOPERATIVE DIAGNOSIS: Same as preop FINDINGS: Indications: 67 year old male with hypertension, hyperlipidemia, obesity, and known bicuspid aortic stenosis followed with serial echocardiograms with progressive shortness of breath who presents for surgical valve replacement. He underwent cardiac MRI in the setting of concern for cardiac amyloidosis and cardiomyopathy which revealed an ectatic ascending aorta. LHC did not reveal any obstructive CAD and ECHO revealed preserved bi-ventricular function with severe aortic stenosis and moderate aortic insufficiency without any other hemodynamically significant valvular disease. Procedures performed: 1. Upper nohemi-sternotomy; 2. AVR (#25 Inspiris bio-prosthetic valve); and 3. Ascending aortoplasty Findings: 1. Preserved bi-ventricular function pre and post CPB; 2. True bicuspid ewiiaapaayp aortic valve with heavy calcification of both the leaflets and the annulus; and 3. Ectatic ascending aorta Chest tubes: anterior mediastinal (32F straight argyle) and right pleural (32F straight argyle) Temporary pacing wires: ventricular (to pull) Anti-coagulation plan: ASA only for now DESCRIPTION OF PROCEDURE: Operative Approach: J-Incision (Upper Hemisternotomy) Discharged on 08/05/23 2. cxr- pending 3. EKG - NORMAL SINUS RHYTHM POSSIBLE LEFT ATRIAL ENLARGEMENT LEFT VENTRICULAR HYPERTROPHY WITH REPOLARIZATION ABNORMALITY POSSIBLE INFERIOR MYOCARDIAL INFARCTION , AGE UNDETERMINED ABNORMAL ECG Ventricular Rate BPM 81 P 96 P 97 P 88 P 93 P 75 Atrial Rate BPM 81 P 96 P 97 P 88 P 93 P 75 P-R Interval ms 198 P 198 P 198 P 192 P 166 P 156 QRS Duration ms 114 P 106 P 108 P 112 P 100 P 110 QT Interval ms 406 P 380 P 378 P 400 P 380 P 410 QTC Calculation (Bazett) ms 471 P 4. cbc 5. cmp- Component Latest Ref Rng & Units 08/08/2023 Protein, Total 6.3 - 8.0 g/dL 6.8 Albumin 3.9 - 4.9 g/dL 4.0 Calcium 8.5 - 10.2 mg/dL 9.1 Bilirubin, Total 0.2 - 1.3 mg/dL 0.3 Alkaline Phosphatase 38 - 113 U/L 85 AST 14 - 40 U/L 37 ALT 10 - 54 U/L 72 (H) Glucose 74 - 99 mg/dL 103 (H) BUN 9 - 24 mg/dL 12 Creatinine 0.73 - 1.22 mg/dL 0.94 Sodium 136 - 144 mmol/L 137 Potassium 3.7 - 5.1 mmol/L 4.7 Chloride 97 - 105 mmol/L 101 CO2 22 - 30 mmol/L 26 Anion Gap 9 - 18 mmol/L 10 eGFR >=60 mL/min/1.73m 89 6, Expressive aphasia on POD 0 - 2CLOT - negative acute findings on imaging. Speech deficits resolved. ASA, statin No Recurrence 7. Post op Ileus- resolved: + BM's on regular basis Plan 1. f/u with cardiology as sched Summary: Post op care and discharge orders reviewed with the patient- all questions were answered. Surgical sites healing without complication Discussed new medications, dosage, route of administration and side effects Reviewed walking program at home Reviewed diet guidelines for recovery from surgery Return to the clinic prn with signs or symptoms of infection, fevers, SOB, or pleural effusion SBE prophylaxis reviewed Justo Mehta APRN.ELECTRONIC COMPONENT PROCESSOR documented in this encounter [facility] 08-08-2023 History of Present illness Narrative Radiology Service Progress Note PATIENT NAME: Martin Henson DATE OF SERVICE: August 08, 2023 TIME: 1:07 PM PATIENT IDENTITY VERIFICATION COMPLETED USING TWO (2) IDENTIFIERS: Name and Date of confirmed by patient verbally. FALL SCREENING: Has the patient had 2 falls in the last year or 1 fall with injury or currently using an Ambulatory Assistive Device (Walker, Cane, Wheelchair, Crutches, etc.)? No PATIENT GENDER DATA: Male PATIENT RELEVANT IMPLANT DATA REVIEWED: Not Applicable RADIOLOGY DEPARTMENT: General X-ray: Exam(s) Completed: Chest X-Ray PERIPHERAL IV DATA: Not applicable SIGNED BY: RT Rhonda(R) August 08, 2023 1:07 PM documented in this encounter [facility] 07-25-2023 History of Present illness Narrative AMBULATORY PATIENT EDUCATION READINESS TO LEARN Cognitive Ability: Alert and oriented Motivation To Learn: Interested Family Support: High - Very involved in pt care Instruction Provided To: Patient & Family Patient Learns Best By: Multiple Methods Factors Affecting Learning: None Physical Limitations Affecting Learning: None LEARNING RESPONSE Diagnosis: BAV/ Education Topic: Pre-Op Open Heart Surgery Instructions Teaching Points: Logistics / Protocols /Complication Prevention How prepared do you feel you are for this visit: 6 Instruction/Supplemental Materials: Cardiac Surgery Information Binder Individual Instruction Patient/Family Response: Well prepared Follow up plan: Patient/Family to call [facility] with any further questions Referral (Recommendation): None Teach completed, topic: Patient provided with Cardiac Surgery binder and reviewed. Patient educated on pre-operative instructions and advised to call [facility] with any further questions documented in this encounter [facility] 07-25-2023 History and physical note CHART COPY-DO NOT DISCARD CARDIOVASCULAR SURGERY PRE-OPERATIVE ASSESSMENT NAME: Martin Henson Alert Notes: DATE: 07/25/2023 SEX: male : 1955 AGE: [age] year old Estimated body mass index is 32.59 kg/m as calculated from the following: Height as of 07/24/23: 185.4 cm (6' 1). Weight as of 07/24/23: 112 kg (247 lb). STS Score Surgeon: Usha Navarro MD Intended procedure: AVR +/- myectomy Patient scheduled for surgery on: 07/29/2023 [facility] MD: Deena Alfaro MD CHIEF COMPLAINT: Pre-Op Open Heart Surgery MEDICATIONS: Current Outpatient Medications Medication Sig TYLENOL PM 25 MG-500 MG/15 ML ORAL SOLN one tablet by mouth at night as needed aspirin, enteric coated (ASPIRIN, ENTERIC COATED) 81 mg EC tablet Take by mouth. atorvastatin (LIPITOR) 20 mg tablet lisinopril-hydroCHLOROthiazide (ZESTORETIC) 10-12.5 mg per tablet loratadine (CLARITIN) 10 mg tablet Take by mouth. metoprolol tartrate, short acting, (LOPRESSOR) 50 mg tablet omeprazole (PRILOSEC) 40 mg capsule MULTIVITAMIN TAB Take one(1) tablet daily. No current facility-administered medications for this visit. ALLERGIES: ALLERGIES No Known Allergies LATEX ALLERGY: No FOOD SENSITIVITIES: No ANTICOAGULANTS: ASA 81mg last dose 07/23/2023 STEROIDS: No HISTORIES: FAMILY HISTORY Problem Relation Age of Onset Cancer Mother breast Arthritis Mother Hypertension Mother Heart Father atrial fib Stroke Father ? A-fib related Hypertension Sister Hypertension Brother Colon Cancer Other none Prostate Cancer Other none Diabetes Other none PAST MEDICAL HISTORY Diagnosis Date Aortic stenosis Bicuspid aortic valve Hemorrhoids HLD (hyperlipidemia) HTN (hypertension) Primary cardiomyopathy (HCC) PAST SURGICAL HISTORY Procedure Laterality Date ARTHROPLASTY GLENOHUMRL JT HEMIARTHROPLASTY 07/2006 Arthroplasty, shoulder: torn rotator cuff (right) COLONOSCOPY FLX DX W/COLLJ SPEC WHEN PFRMD 04/09/11 TONSILLECTOMY PRIMARY/SECONDARY <AGE 12 Tonsillectomy XCAPSL CTRC RMVL INSJ IO LENS PROSTH W/O ECP 2006 Cataract Removal bilateral Social History Tobacco Use Smoking status: Never Smokeless tobacco: Current Types: Snuff Vaping Use Vaping Use: Never used Substance Use Topics Alcohol use: Yes Comment: very rarely Drug use: No REVIEW OF SYSTEMS: GEN: Fatigue over the last several years and gradually progressing - can still complete all ADLs and responsibilities independently, but has decreased recreational activities d/t fatigue HEENT: Cataract Surgery bilateral, Glasses, Hard of Hearing mild to moderate age related, s/p tonsillectomy <12 years DERM: Denies Dermatological Complaints CAR WASHER: Dizziness with rapid positional changes RESP: Dyspnea with mild to moderate exertion, Sleep Apnea possible per patient CARD: Angina stable, described as pressure with occasional radiation from the chest down the left arm,that resolves after 1-2 minutes rest , HTN , Valvular Heart Disease BAV/, MR, AR GI: GERD well controlled on PRN omeprazole, hemorrhoids : Denies complaints ENDO: Denies Endocrine Complaints HEME: Denies Hematological complaints MUSC/SKEL: Degenerative Joint Disease s/p R shoulder arthroplasty, Low Back Pain with L sciatic nerve involvement PVD: Denies PVD Varicose Veins: No BRUITS (Carotid): No PULSES: Pedal Left 2 Right 2 NYHA CLASSIFICATION: Class 1 FAMILY HISTORY OF CAD: No ? PERFUSION INDEX: Pacer Check: NA CARDIAC EVALUATION: Cardiac Cath: Date - 06/10/2023 Ultrasound: Date - PFT: Date - 07/24/2023 ECHO: Last ECHO Result Conclusion ECHO Collected: 07/24/2023 8:02 AM (Final result) Impression: CONCLUSIONS: - Exam indication: Pre- op AVR, Myectomy - The left ventricle is normal in size. There is severe concentric left ventricular hypertrophy. Left ventricular systolic function is normal. EF = 63 5% (2D biplane) - The right ventricle is mildly dilated. Right ventricular systolic function is normal. - The visualized aorta is dilated with a maximal dimension of 4.5 cm. - There is moderate (2+) aortic valve regurgitation due to sclerosis. There is severe aortic valve stenosis caused by calcified valve and restricted opening. AV area is 0.93 cm (0.39 cm /m ) by continuity, VTI. The peak gradient is 103 mmHg, the mean gradient is 55 mmHg and the dimensionless valve index is 0.24. - There is no SANJEEV, there is LV cavity obliteration from severe LVH- mid cavitary gradient has a peak of 17mmHg with valsalva (Clip #115). - The patient has not had a prior CC echocardiographic exam for comparison. * * * Final * * * CT Scan: MRI: Last MRI Result Conclusion MRA CHEST CARDIOVASCULAR WO IVCON Exam End: 07/24/2023 5:20 PM (Final result) Impression: IMPRESSION: 1. Bicuspid aortic valve with likely fusion of the right and left coronary cusp with associated signal dephasing suggestive of significant aortic stenosis, could correlate with echocardiographic findings. There is concomitant moderate aortic regurgitation (regurgitant volume 21 mL, regurgitant fraction 25%). 2. The left ventricle is normal in size (LV EDVI = 93 mL/m ), with severe concentric wall thickening (mid-basal IVS measuring up to 2.2 cm), and normal systolic function (LVEF = 56%). Delayed imaging is slightly suboptimal quality with suggestion of mild RV insertion point LGE, though without convincing evidence to suggest a diffuse infiltrative process. T1 mapping/ECV were not performed. 3. The right ventricle is normal in size (RV EDVI = 64 mL/m ), with normal systolic function (RVEF = 61%) 4. There is moderate ectasia of the aortic root (4.6 cm), and mid ascending aorta (4.5 cm). The remainder of the thoracic aorta is normal in course, contour, and caliber, without acute pathology. 5. There is trace to mild qualitative mitral valve regurgitation. 6. The main PA is dilated 3.5 cm. * * * Final * * * RP Box Toe Stitcher: [employer] Transcribe Date/Time: Jul 24 2023 4:11P Dictated by : ANN LEACH MD This examination was interpreted and the report reviewed and electronically signed by: ANN LEACH MD on Jul 25 2023 10:36AM EST CXR: No results found. EKG: Dental: Cleared ? Recent Labs 07/24/23 0916 WBC 6.72 HB 15.1 HCT 45.3 PLT 162 INR 1.1 APTT 27.6 PTSEC 11.3 NA 143 K 4.4 BUN 11 CREAT 0.97 Pre Op Instructions per protocol reviewed and handout given to patient . Patient Education completed and documented. Instructed to start Bactroban per protocol. Emotional support provided to patient and family. All questions and concerns adressed. Signature: Sherlyn Cary RN See Cardiology History and Physical dated 07/24/2023 documented in this encounter [facility] 07-25-2023 History of Present illness Narrative Consult to determine surgery. This patient is seen in consult for cardiovascular disease. I have reviewed the medical history and PFTs, TTE, CT images and Cardiac Cath results. Impression: severe as and ai, copd, cardiomyopathy Based on my evaluation if this patient undergoes surgery the risk of is 1% Plan: Evaluation for potential surgery. The risks, benefits and anticipated outcomes of a potential procedure versus medical management were reviewed. Discussed the potential for two patients undergoing surgery in two separate rooms (concurrent surgery) but I would be putting the patient on the heart lung machine and taking them off. Discussed that in an emergency a qualified backup surgeon is available and in the rare event of a serious situation, one of my colleagues would also be able to take over. Usha Navarro MD, PhD documented in this encounter [facility] 07-25-2023 History of Present illness Narrative Cardiothoracic Anesthesiology Preoperative Assessment Service Date: 07/25/2023 Service Time: 9:56 AM Primary Care Physician: Abdiel Mathews NP Subjective Patient Entered Data: Cardiothoracic Surgery Pre-Op Questionnaire 07/22/2023 Previous anesthesia problems No Family history anesthesia problems No Blood consent Yes Esophageal history Esophageal Stricture Implanted devices No History difficult airway Yes Airway surgery No Ongoing pain issues No Heparin intolerance No Daily alcohol use No Illicit drug use No Scheduled procedure: AVR +/- myectomy Surgeon: Usha Navarro Scheduled date: 07/29/2023 HPI: Patient is a 67 year old M with PMH of bicuspid aortic valve complicated by severe aortic stenosis (peak 103, mean 55 mmHg with AV area 0.93 cm2 and dimensionless valve index 0.24) with moderate aortic regurgitation and severe LVH; aortic dilation (4.5 cm at sinus), HTN, and HLD presenting for evaluation prior to AV replacement. Patient presents today for pre-operative evaluation for the above surgery. He DENIES issues swallowing, no history of esophageal stricture. Reports the anesthesiologist mentioning a narrowing in the airway more than 15 years ago. Since then he's had general endotracheal anesthesia without issues. Today we discussed the anesthetic plan, what to expect, and any questions or concerns the patient may have had. We additionally discussed perioperative medications and recommended they hold their lisinopril-HCTZ prior to their surgery but otherwise continue their medications as prescribed. He was instructed to follow his surgeon's instructions regarding his aspirin. Review no known heparin intolerance anticoagulant/antiplatelet medication(s) - Patient is taking anticoagulant and/or antiplatelet medication with plans of stopping medication on 07/21 no non-cardiac IEDs present no known esophageal disorders blood transfusion consented -. A type & screen is resulted and no atypical antibodies identifed COVID-19 Immunization Status Overdue - Covid-19 Vaccine (1) Overdue - never done No completion, postpone, frequency change, or communication history exists for this topic. The patient has the following: ACTIVE PROBLEM LIST Complete Rupture of Rotator Cuff Obesity (Bmi 30-39.9) Special Screening for Malignant Neoplasms, Colon Nonrheumatic Aortic Valve Stenosis Aortic Root Dilatation (Hcc) Angina Pectoris (Hcc) Discharge Planning Issues Pre-Op Testing PAST MEDICAL HISTORY Diagnosis Date Aortic stenosis Bicuspid aortic valve Hemorrhoids HLD (hyperlipidemia) HTN (hypertension) Primary cardiomyopathy (HCC) PAST SURGICAL HISTORY Procedure Laterality Date ARTHROPLASTY GLENOHUMRL JT HEMIARTHROPLASTY 07/2006 Arthroplasty, shoulder: torn rotator cuff (right) COLONOSCOPY FLX DX W/COLLJ SPEC WHEN PFRMD 04/09/11 TONSILLECTOMY PRIMARY/SECONDARY <AGE 12 Tonsillectomy XCAPSL CTRC RMVL INSJ IO LENS PROSTH W/O ECP 2006 Cataract Removal bilateral FAMILY HISTORY Problem Relation Age of Onset Cancer Mother breast Arthritis Mother Hypertension Mother Heart Father atrial fib Stroke Father ? A-fib related Hypertension Sister Hypertension Brother Colon Cancer Other none Prostate Cancer Other none Diabetes Other none Social History Tobacco Use Smoking status: Never Smokeless tobacco: Current Types: Snuff Vaping Use Vaping Use: Never used Substance Use Topics Alcohol use: Yes Comment: very rarely Drug use: No Prior to Admission medications as of 07/24/23 1247 Medication Sig Last Dose Taking aspirin, enteric coated (ASPIRIN, ENTERIC COATED) 81 mg EC tablet Take by mouth. atorvastatin (LIPITOR) 20 mg tablet lisinopril-hydroCHLOROthiazide (ZESTORETIC) 10-12.5 mg per tablet loratadine (CLARITIN) 10 mg tablet Take by mouth. metoprolol tartrate, short acting, (LOPRESSOR) 50 mg tablet omeprazole (PRILOSEC) 40 mg capsule MULTIVITAMIN TAB Take one(1) tablet daily. TYLENOL PM 25 MG-500 MG/15 ML ORAL SOLN one tablet by mouth at night as needed No medication comments found. ALLERGIES No Known Allergies Objective Pain Assessment: Vitals: There were no vitals taken for this visit. Diagnostic tests reviewed for today's visit: Lab Value Units Date High Low HB 15.1 g/dL 07/24/2023 17.0 13.0 HCT 45.3 % 07/24/2023 51.0 39.0 WBC 6.72 k/uL 07/24/2023 11.00 3.70 PLT 162 k/uL 07/24/2023 400 150 NA 143 mmol/L 07/24/2023 144 136 K 4.4 mmol/L 07/24/2023 5.1 3.7 GLUC 123 mg/dL 07/24/2023 99 74 BUN 11 mg/dL 07/24/2023 24 9 CREAT 0.97 mg/dL 07/24/2023 1.22 0.73 PTSEC 11.3 sec 07/24/2023 13.0 9.7 INR 1.1 no uni* 07/24/2023 1.3 0.9 APTT 27.6 sec 07/24/2023 32.4 23.0 ALT 48 U/L 07/24/2023 54 10 AST 28 U/L 07/24/2023 40 14 TBILI 0.5 mg/dL 07/24/2023 1.3 0.2 TSH No results within date range. Lab Value Units Date High Low HCGQT No results within date range. UHCG No results within date range. HCG, BODY* No results within date range. Lab Value Units Date High Low ABORHD No results within date range. ABSCREEN No results within date range. No results found for: HBA1C Recent Results (from the past 60 hour(s)) ECG COMPLETE Collection Time: 07/24/23 9:56 AM Impression NORMAL SINUS RHYTHM LEFT VENTRICULAR HYPERTROPHY WITH REPOLARIZATION ABNORMALITY ( R in aVL , Sokolow-Salcedo , Romhilt-Coppola ) CANNOT EXCLUDE INFERIOR MYOCARDIAL INFARCTION , AGE UNDETERMINED ABNORMAL ECG ECHO Collection Time: 07/24/23 8:02 AM Impression CONCLUSIONS: - Exam indication: Pre- op AVR, Myectomy - The left ventricle is normal in size. There is severe concentric left ventricular hypertrophy. Left ventricular systolic function is normal. EF = 63 5% (2D biplane) - The right ventricle is mildly dilated. Right ventricular systolic function is normal. - The visualized aorta is dilated with a maximal dimension of 4.5 cm. - There is moderate (2+) aortic valve regurgitation due to sclerosis. There is severe aortic valve stenosis caused by calcified valve and restricted opening. AV area is 0.93 cm (0.39 cm /m ) by continuity, VTI. The peak gradient is 103 mmHg, the mean gradient is 55 mmHg and the dimensionless valve index is 0.24. - There is no SANJEEV, there is LV cavity obliteration from severe LVH- mid cavitary gradient has a peak of 17mmHg with valsalva (Clip #115). - The patient has not had a prior CC echocardiographic exam for comparison. * * * Final * * * Assessment No problem-specific Assessment & Plan notes found for this encounter. ANESTHESIA FINDINGS: Intubation History: Significant Anesthesia Considerations: Airway History: Please see airway note for details. Prepared for Surgery: The Following Tests/Procedures Have Been Initiated: Orders Placed This Encounter mupirocin (BACTROBAN) 2 % ointment Sig: Apply a small amount in each nostril using a cotton swab twice the day before surgery and once the morning of surgery. Dispense: 22 g Refill: 0 Order Comments: Supply patient with Q-tips and instruction sheet ASA Class: 4 Planned Anesthetic: general I - PHYSICAL EVALUATION AIRWAY Patient intubated: No. Tracheostomy tube not present Mallampati: III. TM distance: >3 FB. Neck ROM: limited extension. Mouth opening: adequate. Short neck: yes. Thick neck: yes Reeves present: no Microretrognathia/Micronagthia/Recessed Chin: No DENTAL Dental findings: teeth intact. II - ANESTHESIA PLAN ASA Score: 4 Anesthetic Plan: general Airway type: ETT Anesthetic plan additional comments: Reports the anesthesiologist mentioning a narrowing in the airway more than 15 years ago. Since then he's had general endotracheal anesthesia without issues according to the patient. Unable to find further information regarding anesthetic management during the mentioned operation in 2005.. Beta Shara Monitoring Plan Post Procedure Analgesic Plan Informed Consent Anesthetic risks, benefits, alternatives, personnel and consent discussed: yes. Patient / Responsible Constitution Party agrees to proceed: yes Patient / Surrogate agrees to blood products: Yes Instructions Given to Patient: Instructions located in the after visit summary. Patient given verbal and written preop instructions and voices comprehension and compliance. Signature: Ariadna Gonzalez MD Patient Name: Martin Henson Date: July 25, 2023 Time: 9:56 AM Pager/Contact #: documented in this encounter [facility] 07-24-2023 History of Present illness Narrative Radiology Service Progress Note DATE OF SERVICE: July 24, 2023 TIME: 3:59 PM PATIENT WEIGHT: 247 LBS PATIENT IDENTITY VERIFICATION COMPLETED USING TWO (2) STANDARD IDENTIFIERS: Name and Date of confirmed by patient verbally and Name and Date of confirmed by identification band. FALL SCREENING: Has the patient had 2 falls in the last year or 1 fall with injury or currently using an Ambulatory Assistive Device (Walker, Cane, Wheelchair, Crutches, etc.)? No PATIENT GENDER DATA: Male ALLERGIES: Reviewed and unchanged CONTRAST ALLERGY: No EXAM: MRI - CONTRAST TYPE: GROUP II IV SITE: Ambulatory: A peripheral IV was started in the Left antecubital site with a Angio cath: 22 gauge. and A Saline lock was inserted per protocol IV SITE APPEARANCE: Clean,Dry and Intact SIGNATURE: Teresa Sharif RN PATIENT NAME: Martin Henson DATE: July 24, 2023 TIME: 3:59 PM Radiology Service Progress Note PATIENT NAME: Martin Henson DATE OF SERVICE: July 24, 2023 TIME: 4:33 PM PATIENT IDENTITY VERIFICATION COMPLETED USING TWO (2) IDENTIFIERS: Name and Date of confirmed by patient verbally. FALL SCREENING: Has the patient had 2 falls in the last year or 1 fall with injury or currently using an Ambulatory Assistive Device (Walker, Cane, Wheelchair, Crutches, etc.)? No PATIENT GENDER DATA: Male PATIENT RELEVANT IMPLANT DATA REVIEWED: Yes RADIOLOGY DEPARTMENT: MR; Exam(s) Completed: Cardiac: Cardiac PERIPHERAL IV DATA: Site assessment: Clean,Dry and Intact, Site disposition Discontinued SIGNED BY: RT Kelsy(R) July 24, 2023 4:33 PM documented in this encounter [facility] 07-24-2023 History of Present illness Narrative Images from the original note were not included. [facility] Department of Cardiovascular Medicine SECTION OF CLINICAL CARDIOLOGY OUTPATIENT VISIT DATE July 24, 2023 OUTPATIENT VISIT TYPE CONSULTATION PRIMARY CARE PHYSICIAN: [place] [address] REFERRING PHYSICIAN Usha Navarro [address] [place] [id number] CHIEF COMPLAINT: No chief complaint on file. HISTORY OF PRESENT ILLNESS: Cardiac consultation at the request of Dr. Usha Navarro.A copy of this consultation note will be provided to the requesting physician by way of shared Medical record or letter to requesting physician via US mail. Mr. Henson is a 67 year old male who is seen today for preoperative cardiovascular evaluation for scheduled AVR +/- Myectomy on 07/29/[address] Usha Navarro on 07/29/23. . 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 NURSING INTAKE: Mr. Henson is a 67 year old male from [place], [place] here today for preoperative cardiovascular evaluation for scheduled AVR +/- Myectomy on 07/29/[address] Usha Navarro. Martin has a significant medical history of: Bicuspid aortic valve Aortic valve stenosis Aortic root dilatation Hyperlipidemia - atorvastatin 20 mg Hypertension Family History: Father - CVA, HTN, skin CA Mother - HTN, breast CA Brother - HTN Sister - HTN He reports the following symptoms: -Shortness of breath: Gradually increased in the past 2-3 years. The SOB occurs only on exertion. -Patient denies chest pain, palpitations, lightheadedness, dizziness, syncope, PND, and edema. 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 Diet: Regular Exercise: Walking daily on the farm. PAST MEDICAL HISTORY Diagnosis Date Aortic stenosis Bicuspid aortic valve Hemorrhoids HLD (hyperlipidemia) HTN (hypertension) Primary cardiomyopathy (HCC) PAST SURGICAL HISTORY Procedure Laterality Date ARTHROPLASTY GLENOHUMRL JT HEMIARTHROPLASTY 07/2006 Arthroplasty, shoulder: torn rotator cuff (right) COLONOSCOPY FLX DX W/COLLJ SPEC WHEN PFRMD 04/09/11 TONSILLECTOMY PRIMARY/SECONDARY <AGE 12 Tonsillectomy XCAPSL CTRC RMVL INSJ IO LENS PROSTH W/O ECP 2006 Cataract Removal bilateral SOCIAL HISTORY Social History Tobacco Use Smoking status: Never Smokeless tobacco: Current Types: Snuff Vaping Use Vaping Use: Never used Substance Use Topics Alcohol use: Yes Comment: very rarely Drug use: No FAMILY HISTORY Problem Relation Age of Onset Cancer Mother breast Arthritis Mother Hypertension Mother Heart Father atrial fib Stroke Father ? A-fib related Hypertension Sister Hypertension Brother Colon Cancer Other none Prostate Cancer Other none Diabetes Other none ALLERGIES: ALLERGIES No Known Allergies MEDICATIONS: aspirin, enteric coated (ASPIRIN, ENTERIC COATED) 81 mg EC tablet Take by mouth. atorvastatin (LIPITOR) 20 mg tablet loratadine (CLARITIN) 10 mg tablet Take by mouth. metoprolol tartrate, short acting, (LOPRESSOR) 50 mg tablet omeprazole (PRILOSEC) 40 mg capsule MULTIVITAMIN TAB Take one(1) tablet daily. TYLENOL PM 25 MG-500 MG/15 ML ORAL SOLN one tablet by mouth at night as needed lisinopril-hydroCHLOROthiazide (ZESTORETIC) 10-12.5 mg per tablet (Patient not taking: Reported on 07/24/2023) REVIEW OF SYSTEMS: POSITIVES IN BOLD GENERAL: Negative for: Weight loss or gain, Fever or Chills, Weakness and Sleep difficulties. HEENT: Negative for: Headache, Impaired Vision, Glasses, Hearing Impairment, Ringing in Ears, Nosebleeds, Poor dental care, Bleeding Gums, Dentures NECK: Negative for: Swelling, Pain, Stiffness RESPIRATORY: Negative for: Cough, Blood in Sputum, Shortness of breath, Wheezing, Apnea GASTROINTESTINAL: Negative for: Trouble swallowing, Heartburn, Change in bowel habits, Blood in stool, Dark black stools MUSCULOSKELETAL: Negative for: Muscle or joint pain, Stiffness , Joint swelling NEUROLOGIC/PSYCHIATRIC: Negative for: Weakness, Paralysis, Numbness, Tingling, Tremor, Nervousness, Depressed mood, Memory loss SKIN: Negative for: Rashes, Itching HEMATOLOGICAL/LYMPHATIC: Negative for: Easy bruising , Easy bleeding ENDOCRINE: Negative for: Heat or cold intolerance, Excessive sweating, Frequent urination, Frequent thirst PHYSICAL EXAMINATION: BP 145/79 (BP Site: Right Arm) Pulse 90 Ht 185.4 cm (6' 1) Wt 112 kg (247 lb) SpO2 99% BMI 32.59 kg/m General: Well appearing, in no acute distress. Skin: No clubbing, no cyanosis. Eyes: Extra ocular movements intact Oropharynx: Teeth in good repair. Neck: No jugular venous distention, no carotid bruits, carotids have a normal upstroke, no palpable thyromegaly. Lungs: Clear to auscultation bilaterally, no wheezing or rhonchi. Heart: Regular rhythm, PMI not displaced, S1, harsh holosystolic ejection murmur 5/6 , no S2, with radiation to base of the neck. Abdomen: Soft, nontender, bowel sounds normal, no palpable organomegaly, no bruits. Extremities: No peripheral edema . Grade 2/4 distal pulses bilaterally. Neuro: Oriented to person, place and time, alert, cooperative, gait coordinated. CARDIOVASCULAR MEDICINE TESTING: Electrocardiogram from 07/24/2023: NSR with LVH and LV strain, left axis. Last ECHO Result Conclusion ECHO Collected: 07/24/2023 8:02 AM (Final result) Impression: CONCLUSIONS: - Exam indication: Pre- op AVR, Myectomy - The left ventricle is normal in size. There is severe concentric left ventricular hypertrophy. Left ventricular systolic function is normal. EF = 63 5% (2D biplane) - The right ventricle is mildly dilated. Right ventricular systolic function is normal. - The visualized aorta is dilated with a maximal dimension of 4.5 cm. - There is moderate (2+) aortic valve regurgitation due to sclerosis. There is severe aortic valve stenosis caused by calcified valve and restricted opening. AV area is 0.93 cm (0.39 cm /m ) by continuity, VTI. The peak gradient is 103 mmHg, the mean gradient is 55 mmHg and the dimensionless valve index is 0.24. - There is no SANJEEV, there is LV cavity obliteration from severe LVH- mid cavitary gradient has a peak of 17mmHg with valsalva (Clip #115). - The patient has not had a prior CC echocardiographic exam for comparison. * * * Final * * * ECHO 07/24/2023 CONCLUSIONS: - Exam indication: Pre- op AVR, Myectomy - The left ventricle is normal in size. There is severe concentric left ventricular hypertrophy. Left ventricular systolic function is normal. EF = 63 5% (2D biplane) - The right ventricle is mildly dilated. Right ventricular systolic function is normal. - The visualized aorta is dilated with a maximal dimension of 4.5 cm. - There is moderate (2+) aortic valve regurgitation due to sclerosis. There is severe aortic valve stenosis caused by calcified valve and restricted opening. AV area is 0.93 cm (0.39 cm /m ) by continuity, VTI. The peak gradient is 103 mmHg, the mean gradient is 55 mmHg and the dimensionless valve index is 0.24. - There is no SANJEEV, there is LV cavity obliteration from severe LVH- mid cavitary gradient has a peak of 17mmHg with valsalva (Clip #115). - The patient has not had a prior CC echocardiographic exam for comparison. Last MRI Result Conclusion MRI CARDIAC VELOCITY FLOW MAP Collected: 12/21/2022 10:30 AM (Final result) Impression: IMPRESSION: The study has been already reported under . The current template adds the charge for Phase velocity mapping Heraclio Fine MD Box Toe Stitcher: REINALDO Transcribe Date/Time: Jun 27 2023 9:11P Dictated by : HERACLIO FINE MD This examination was interpreted and the report reviewed and electronically signed by: HERACLIO FINE MD on Jun 27 2023 9:15PM EST Cardiac MRI 12/21/22: - The left ventricle is normal in size (LV EDVi = 88 ml/m ). The left ventricular systolic function is normal (LV EF = 56 %). - The right ventricle is normal in size (RV EDVi = 55 ml/m ). The right ventricular systolic function is normal (RV EF = 63 %). - There is severe left ventricular hypertrophy. The hypertrophy is more pronounced in the septal wall as compared to the lateral wall, but overall the hypertrophy involves the entire left ventricle. The myocardial mass is increased at 313 g (132 g/m ). - Late gadolinium enhancement (LGE) sequences indicated the presence of diffuse near transmural/global LGE involving all tai of the left ventricle. The T1 value of the myocardium is abnormal at 974+/- 3 ms. The extracellular volume is also abnormal at 26%. Data suggest cardiac amyloidosis. -The aortic valve is functionally bicuspid with fusion of the right and left cusps. Pseudoraphae are visualized. Mild mitral stenosis is seen. The planimeter valve area is 1.9 cm . Mild to moderate aortic insufficiency seen. Regurgitant volume = 25 cc, regurgitant fraction = 21% -The ascending aorta is dilated measuring 4.6 cm at the level of the main pulmonary artery. - The patient has not had a prior CC cardiac MR exam for comparison. 07/24/2023 - IN PROCESS Note from chart: Author Nitesh Jimenez [facility] June 03, 2023 4:27pm Note Date/Time May 30, 2023 2:09pm [facility] Medical Records Department [address] [place] [address] History & Physical Exam 05/30/23 1406 MR#: [id number] Acct: [id number] Name: MARTIN HENSON Rep #:[id number] : 1955 67 From: Nitesh Jimenez MD PCP: ALEXANDRA Mathew [place] [facility] [place] [facility] Note from Chart Jun 2023: History and Physical Date of Admission: 06/10/23 Martin Henson is a 67 year-old white male who presents today for a heart catheterization. He has a history of underlying bicuspid aortic valve with aortic valve stenosis and aortic root dilatation superimposed upon hyperlipidemia and hypertension. His last echocardiogram that was done in 07/2022 demonstrated an LVEF of 75%; severe concentric LVH; aortic valve with findings compatible with severe aortic valve stenosis and a mildly dilated aortic root; additional findings suggestive but not definitive for a possible diagnosis of amyloid.?He was evaluated by hematology for amyloid, all these tests were negative. Cardiac MRI was concerning for cardiac amyloid. PYP was ordered, he has not had this done yet. Pt notes that he is SOB at times, it is not brought on by anything in particular. 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 He does not have any chest pain/heaviness. He does not have any irregular heart beats. He does not have any lightheadheaded/dizziness. ... Had abdominal fat and Bone marrow biopsy done. And hemato CS: was told NO AMYLOIDOSIS.. ECHOCARDIOGRAM 07/24/2023: interpretation pending I have personally reviewed the Electrocardiogram, Laboratory Testing, Echocardiogram, and Cardiac MRI. On my review, TTE shows: - small LV cavity due to severe concentric LV hypertrophy: septum 18 mm, posterior wall 16 mm. In spite of normal EF ~50%, there is reduced strain GLS -10%. - Severe calcified . Moderate AI grade 2. - Dilation Aorta sinus 4.5 cm, prox asc. Ao 4.3 cm and distal asc. Ao 4.5 cm. - Calcification mitral annulus, mostly posterior, with mild MR 1-2+ (should improve after correction of , there is no clear extension of the annular calcification onto the leaflets, no significant MS on visual impression, however MRI found MVA 1.9 cm2, the MR appears to be only functional, not due to any restriction of leaflet: to be confirmed on per-op RAGINI) . - Normal right side, RV etcc. IMPRESSION: Mr. Henson is a 67 year old male with severe concentric LV hypertrophy - more prominent on septal wall, without hemodynamic obstruction at baseline but with small gradient of 17 mmHg with Valsalva maneuver- and severe /BAV/ Ao root dilation at 4.5-4.6 cm cm at the sinuses and distal ascending aorta levels. There is MAC with mild MS and MR based on TTE+MRI. 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 Hyperlipidemia - atorvastatin 20 mg Hypertension PLAN AND RECOMMENDATIONS: Complete pre-op work up: - Obtain cardiac cath to r/o coronary disease (was done last month in [place]) and Carotid duplex US also done in [place]? A priori was told that he had no significant disease. I could not find the reports. - dental care: saw his dentist, has clearance - PFTs done Then proceed with AVR+/- root/ascending aorta and septal myectomy as scheduled. - May consider decalcification of mitral annulus? Careful pre-op RAGINI analysis of MV is warranted. - Histopathology will confirm or not if amyloidosis. No other typical clinical or echo findings of amyloidosis although strain shows better apical contractility, but ECG is not suggestive (LVH , no microvoltage). And work up has been done in [place] and is a priori negative for amyloidosis. I personally interviewed, confirmed and edited the above information as obtained by others. CONTACT INFORMATION: Deena Francois MD, FACC documented in this encounter [facility] 07-24-2023 History of Present illness Narrative PULM FUNCTION SMARTBLOCK: Provider: Usha Navarro MD Spirometry: 1 DLCO: 1 documented in this encounter [facility] 07-22-2023 History of Present illness Narrative QOL Call Tracking Documentation Follow-Up Type: Phone Call Call Attempt: 1st Attempt Call Status: Patient will complete in [facility] documented in this encounter [facility] 07-22-2023 History of Present illness Narrative QOL Call Tracking Documentation Follow-Up Type: Phone Call Call Attempt: 1st Attempt Call Status: Patient will complete in [facility] documented in this encounter [facility] 07-10-2023 Miscellaneous Notes CARE CONTINUUM ADVISOR ASSESSMENT PRIMARY CARE PHYSICIAN: Abdiel Mathews NP OR Surgery Date: 07/29/23 [facility]CI Appointment: 07/25/23 Health Insurance: [employer] MEDICARE , C 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 Yes, requested copies for chart Does Patient Have Concerns About Advance Directives? No Education Provided: Yes, will bring SOCIAL: Living Arrangement: Home Lives With: Spouse Stairs: 2 story home one stairs to enter home Do you have any concerns with food and/or affording food?: No Do you have reliable transportation to and from surgery/appointments?: Yes, plan to drive w/spouse and stay at local Hotel Medication Adherence: Do you have any concerns with your prescription medication?: No Who do you use for pharmacy?: [facility] [address] [place] [id number] [address] [facility] [phone] [facility] Pre-Hospital Baseline Mental Status: Alert & Oriented Informant: Self What is your current functional status?: Perform ADLs independently Equipment: Do you currently use any equipment at home for your medical condition or to help you get around? None Active Services/Needs: None Do you have a community marketing coordinator contact through your insurance or WRAAA?: No Has the Patient Been in a Chcf Facility in the Past 30 days? No FREEDOM OF CHOICE: Level of Care Discussed: Home Care, Chcf Facility, Inpatient Rehab Facility, [facility], and Cardiac Rehab Financial Disclosure Provided: No Financial Disclaimer Provided: Yes, regarding pre-cert / insurance authorization Provider List: Home Care Provider list within the patient's requested geographic area shared with the patient/family: Yes - Within 25 miles of [address] [place]code [place] Provider Choices Collected Home Health: 1. [facility] 2. [facility] 3. [facility] 4. [facility] Interventions: Discussed importance of active PCP relationship and follow up Discussed insurance risks, gaps, and programs available Advanced Directives Education Discussed reliable transportation needs for surgery and follow up appointments Discussed prescription medications adherence Robert Arora RN documented in this encounter [facility] 06-03-2023 History and physi derek note Note Date/Time May 30, 2023 2:09pm [facility] Medical Records Department [address] [place] [address] History & Physical Exam 05/30/23 1406 MR#: [id number] Acct: [id number] Name: MARTIN HENSON Rep #:[id number] : 1955 67 From: Nitesh Jimenez MD PCP: ALEXANDRA Mathew [place] [facility] [place] [facility] History and Physical Date of Admission: 06/10/23 Martin Henson is a 67 year-old white male who presents today for a heart catheterization. He has a history of underlying bicuspid aortic valve with aortic valve stenosis and aortic root dilatation superimposed upon hyperlipidemia and hypertension. His last echocardiogram that was done in 07/2022 demonstrated an LVEF of 75%; severe concentric LVH; aortic valve with findings compatible with severe aortic valve stenosis and a mildly dilated aortic root; additional findings suggestive but not definitive for a possible diagnosis of amyloid.?He was evaluated by hematology for amyloid, all these tests were negative. Cardiac MRI was concerning for cardiac amyloid. PYP was ordered, he has not had this done yet. Pt notes that he is SOB at times, it is not brought on by anything in particular. 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 He does not have any chest pain/heaviness. He does not have any irregular heart beats. He does not have any lightheadheaded/dizziness. 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 Pure hypercholesterolemia Undiagnosed cardiac murmurs Surgical History History of bursectomy History of cataract surgery History of shoulder surgery History of surgical biopsy (~07/2022) History of tonsillectomy and adenoidectomy Family History Father CVA (cerebral vascular accident) Hypertension Skin cancerMother Hypertension Breast cancer Skin cancerBrother HypertensionSister HypertensionOther Family history of CVA Family history of hypertension Social History household members: spouse current occupational status: retired 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, 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 current occupational exposures/hazards: Yes (crop mendez) Smoking Status: Never smoker Smokeless tobacco user: chewing tobacco second hand exposure: Yes alcohol intake: never substance use type: does not use caffeine: Yes Type: coffee Number of servings: 1 and tea Number of servings: 2 ROS Const Const: Negative for fatigue, weakness, headache(s), frequent falls, excessive sweating, weight gain or weight loss Eyes Eyes: Negative for blind spots, loss of peripheral vision, transient loss of vision, blurry vision, change in vision or double vision ENT ENT: Negative for headache(s), dizziness, tinnitus, Nosebleed/epistaxis or balance problems Cardio Chest Pain: No Palpitations: No Edema: None Muscle aches with walking: None Resp Respiratory: Positive for SOB with activity; Negative for SOB at rest, SOB orthopnea\SOB lying down or Cough GI GI: Negative nausea, vomiting, heartburn, bloating, vomiting blood/hematemesis, bright, red blood in stools or black,tarry stools : Negative for hematuria Musc Musc: Negative for muscle aches/ myalgia, muscle weakness, joint pain or balanceproblems Skin Skin: Negative rash or wounds Neuro Neuro: Negative for dizziness, lightheadedness, near syncope, syncope, orthostatic symptoms, frequent falls, headache(s), weakness, confusion, memory loss, restless legs, blurry vision or double vision Bishop Hematologic/Lymphatic: Negative for easy bleeding or easy bruising Endo Endo: Negative for fatigue, cold intolerance, heat intolerance or excessive sweating Psych Psych: Negative for anxiety or depression Allergy Allergy/Immunology: Negative for rash Cardiology Exam Const Appearance: cooperative, healthy appearing, comfortable, no acute distress, welldeveloped and well groomed Nutritional Appearance: overweight Orientation: alert, awake and oriented x3 Head Head: normal to inspection, normocephalic and atraumatic Ears: hearing grossly normal bilaterally Nose: external nose normal Face and Sinus: face symmetric Eyes Eyelids: eyelids normal Conjunctivae: conjunctivae normal Pupils: PERRL EOM: EOM intact bilaterally Neck Neck: normal visual inspection and full ROM Chest Chest inspection: normal inspection of the chest, symmetric chest movement and normal respiratory effort Auscultation: Bilateral: Clear to Auscultation Cardio Palpation: normal PMI Rate: regular rate Rhythm: regular rhythm Heart sounds: S1 normal and diminished A2 Murmur: Grade 3/6, harsh, late systolic, LLSB, LVOT, sternal notch and radiates to carotids GI GI: normal to inspection, soft and bowel sounds present Neuro General: patient alert, patient awake, patient oriented x3 and moves all extremities Skin Skin: no rashes or lesions noted Extremities Pulses: Normal: Right Radial Pulse and Left Radial Pulse Lower Extremity Edema: None: Bilateral Psych Psychological: normal affect Supplemental Info Supplemental Information Transthoracic Echocardiogram: 07-17-2022 Interpretation Summary Left ventricular systolic function is hyperdynamic. The estimated ejection fraction is 75 %. The global longitudinal strain = -14% (abnormal). Severe concentric left ventricular hypertrophy. Mild (1+) mitral valve insufficiency. Trivial tricuspid valve insufficiency. Based upon the 2D echocardiographic images obtained the aortic valve leaflets are not well visualized, however, there appears to be diffuse thickening, severe focal calcification, and restriction. Severe aortic stenosis. Mild (1+) eccentric aortic valve insufficiency. Mildly dilated aortic root. Right ventricular systolic pressure estimated to be 30 mmHg. Diastolic function is indeterminate. Late peaking spectral Doppler pattern approaching 1.5 m/s (9 mmHg). Comment: Global longitudinal strain pattern: Suggestive but not definitive for the diagnosis of amyloidosis. Echocardiogram: 09/06/2020 Interpretation Summary Left ventricular systolic function is hyperdynamic. The estimated ejection fraction is 75 %. Moderate to severe concentric left ventricular hypertrophy. Mild diffuse mitral valve thickening. Trivial mitral valve insufficiency. Trivial tricuspid valve insufficiency. 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 Mild to moderate aortic stenosis. Trivial aortic valve insufficiency. Trivial eccentric pulmonic valve insufficiency. Mildly dilated aortic root. Right ventricular systolic pressure estimated to be 29 mmHg. Diastolic function is indeterminate. Late peaking spectral Doppler pattern in the mid left ventricular cavity approaching 2 m/s (peak gradient of approximately 16 mmHg) appearing compatible with a hyperdynamic state. Cardiac catheterization on 07/26/2014 Final impression: 1. Relatively normal resting left ventricular end-diastolic pressure 2. Left ventricle: A. Normal left ventricular size, wall motion, and systolic function B. Estimated LVEF of 65% 3. Left main coronary artery: A. Large short vessel B, Angiographically normal 4, Left anterior descending coronary artery: A. Minimal luminal irregularities 5. Left circumflex coronary artery: A. Large dominant vessel B. Angiographically normal 6. Right coronary artery: A. Small nondominant vessel B. Angiographically normal 7. Aortic valve: A. Calcified B. Left ventricular pullback procedure not suggestive of hemodynamically significant aortic valve restriction 8. Aortic root: A. Dilated Assessment and Plan Assessment and Plan (1) Cardiomyopathy: Status: Chronic Plan: Based on his most recent echo there is concern for amyloidosis. He was evaluated by hematology, these tests were negative. Cardiac MRI Had demonstrated concerns over amyloid. PYP scan was ordered prior to him coming into the officehowever this appears not to have been scheduled. We will reorder this. Based upon findings we will decide next plan of care. (2) Bicuspid aortic valve: Status: Chronic Plan: At the present time there are concerns that his bicuspid aortic valve has progressed and has now developed severe aortic valve stenosis. Patient does havesome symptoms that could be concerning for worsening aortic stenosis. His cardiac MRI did demonstrate concerns for cardiac amyloid. We will obtain a PYP scan. Based upon these findings we will then decide if we should pursue a diagnostic heart catheterization to further evaluate his valve to see if he should have an aortic valve replacement versus a TAVR. (3) Aortic root dilatation: Status: Chronic Plan: His aortic root appeared to be mildly dilated. This may be compatible with his bicuspid aortic valve and aortic valve stenosis. He will continue to be followednoninvasively at this time. (4) Pure hypercholesterolemia: Status: Chronic Plan: 04/23/22 09:59 Cholesterol 122 LDL Cholesterol 64 HDL Cholesterol 32 L He will continue therapy and follow-up. (5) Essential hypertension: Status: Chronic Plan: His blood pressure appears to be stable at this time. He will continue his medical management and follow-up. 06/03/23 1627 <Electronically signed by Nitesh Jimenez MD> Cosigner Signature (if applicable): 05/31/23 1232 <Electronically signed by Jeffrey MORRIS> CC: ALEXANDRA Mayorga; ALEXANDRA Mathews; Dr. Nitesh Jimenez MD~ Signed [facility] Work Phone: 1(179) 151-984704-14-2023 NoteHNO ID: [id number] Author: SID Negron) Service: Radiology Author Type: Technologist Type: Progress Notes Filed: 12/21/2022 9:13 AM Note Text: Radiology Service Progress Note DATE OF SERVICE: December 21, 2022 TIME: 9:13 AM PATIENT IDENTITY VERIFICATION COMPLETED USING TWO (2) STANDARD IDENTIFIERS: Name and Date of confirmed by patient verbally and Name and Date of confirmed by identification band. FALL SCREENING: Has the patient had 2 falls in the last year or 1 fall with injury or currently using an Ambulatory Assistive Device (Walker, Cane, Wheelchair, Crutches, etc.)? No PATIENT GENDER DATA: Male PATIENT RELEVANT IMPLANT DATA REVIEWED: Yes ALLERGIES: Reviewed and unchanged CONTRAST ALLERGY: NO. EXAM: MRI - CONTRAST TYPE: GROUP II PERIPHERAL IV DATA: Ambulatory: A peripheral IV was started in the Right antecubital site with a Angio cath: 22 gauge. RADIOLOGY DEPARTMENT: MR; Exam(s) Completed: Cardiac: Cardiac SIGNATURE: RT Migdalia(R) PATIENT NAME: Martin Henson DATE: December 21, 2022 [facility]: 9[facility] of Present illness Narrative* SID Negron) - 12/21/2022 9:00 AM EDT Radiology Service Progress Note DATE OF SERVICE: December 21, 2022 TIME: 9:13 AM PATIENT IDENTITY VERIFICATION COMPLETED USING TWO (2) STANDARD IDENTIFIERS: Name and Date of confirmed by patient verbally and Name and Date of confirmed by identification band. FALL SCREENING: Has the patient had 2 falls in the last year or 1 fall with injury or currently using an Ambulatory Assistive Device (Walker, Cane, Wheelchair, Crutches, etc.)? No PATIENT GENDER DATA: Male PATIENT RELEVANT IMPLANT DATA REVIEWED: Yes ALLERGIES: Reviewed and unchanged CONTRAST ALLERGY: NO. EXAM: MRI - CONTRAST TYPE: GROUP II PERIPHERAL IV DATA: Ambulatory: A peripheral IV was started in the Right antecubital site with a Angio cath: 22 gauge. RADIOLOGY DEPARTMENT: MR; Exam(s) Completed: Cardiac: Cardiac SIGNATURE: SID Negron) PATIENT NAME: Martin Henson DATE: December 21, 2022 TIME: 9:13 AM [facility] Miscellaneous Notes* Telephone Encounter - SID Negron) - 12/07/2022 6:41 AM EDT CMR Protocol needed for this outpatient scheduled on 12/21. Thank you [facility] Evaluation note* Diagnosis Onset Date Resolution Status Nonrheumatic aortic (valve) stenosis September, acute Aortic root dilatation chron ic Bicuspid aortic valve chroni c Essential hypertension chron ic Pure hypercholesterolemia ch ronic Cardiomyopathy chronic Cardiomyopathy [facility] Work Phone: 1(797) 281-430509-11-2006 History of Past illness Narrative* Problem Noted Date Resolved Date Pain in joint, site unspecified 05/20/2006 10/03/2006 Sprain and strain of unspeci fied site of shoulder and upper arm 05/20/2006 10/03/2006 documented as of this encounter (statuses as of 12/07/2022) [address]11-2006 History of Past illness Narrative* Problem Noted Date Resolved Date Pain in joint, site unspecified 05/20/2006 10/03/2006 Sprain and strain of unspeci fied site of shoulder and upper arm 05/20/2006 10/03/2006 documented as of this encounter (statuses as of 12/22/2022) [address]11-2006 History of Past illness Narrative* Problem Noted Date Diagnosed Date Resolved Date Pain in joint, site unspecified 05/20/2006 10/03/2006 Sprain and strain of unspeci fied site of shoulder and upper arm 05/20/2006 10/03/2006 documented as of this encounter (statuses as of 07/11/2023) [address]11-2006 History of Past illness Narrative* Problem Noted Date Diagnosed Date Resolved Date Pain in joint, site unspecified 05/20/2006 10/03/2006 Sprain and strain of unspeci fied site of shoulder and upper arm 05/20/2006 10/03/2006 documented as of this encounter (statuses as of 07/22/2023) [address]11-2006 History of Past illness Narrative* Problem Noted Date Diagnosed Date Resolved Date Pain in joint, site unspecified 05/20/2006 10/03/2006 Sprain and strain of unspeci fied site of shoulder and upper arm 05/20/2006 10/03/2006 documented as of this encounter (statuses as of 07/24/2023) [address]-2006 History of Past illness Narrative* Problem Noted Date Diagnosed Date Resolved Date Pain in joint, site unspecified 05/20/2006 10/03/2006 Sprain and strain of unspeci fied site of shoulder and upper arm 05/20/2006 10/03/2006 documented as of this encounter (statuses as of 07/24/2023) [address]2006 History of Past illness Narrative* Problem Noted Date Diagnosed Date Resolved Date Pain in joint, site unspecified 05/20/2006 10/03/2006 Sprain and strain of unspeci fied site of shoulder and upper arm 05/20/2006 10/03/2006 documented as of this encounter (statuses as of 07/24/2023) [address]-2006 History of Past illness Narrative* Problem Noted Date Diagnosed Date Resolved Date Pain in joint, site unspecified 05/20/2006 10/03/2006 Sprain and strain of unspeci fied site of shoulder and upper arm 05/20/2006 10/03/2006 documented as of this encounter (statuses as of 07/25/2023) [address]-2006 History of Past illness Narrative* Problem Noted Date Diagnosed Date Resolved Date Pain in joint, site unspecified 05/20/2006 10/03/2006 Sprain and strain of unspeci fied site of shoulder and upper arm 05/20/2006 10/03/2006 documented as of this encounter (statuses as of 07/25/2023) [address]-2006 History of Past illness Narrative* Problem Noted Date Diagnosed Date Resolved Date Pain in joint, site unspecified 05/20/2006 10/03/2006 Sprain and strain of unspeci fied site of shoulder and upper arm 05/20/2006 10/03/2006 documented as of this encounter (statuses as of 07/25/2023) [address]-2006 History of Past illness Narrative* Problem Noted Date Diagnosed Date Resolved Date Pain in joint, site unspecified 05/20/2006 10/03/2006 Sprain and strain of unspeci fied site of shoulder and upper arm 05/20/2006 10/03/2006 documented as of this encounter (statuses as of 07/25/2023) [address]-2006 History of Past illness Narrative* Problem Noted Date Diagnosed Date Resolved Date Pain in joint, site unspecified 05/20/2006 10/03/2006 Sprain and strain of unspeci fied site of shoulder and upper arm 05/20/2006 10/03/2006 documented as of this encounter (statuses as of 08/02/2023) [address]2006 History of Past illness Narrative* Problem Noted Date Diagnosed Date Resolved Date Pain in joint, site unspecified 05/20/2006 10/03/2006 Sprain and strain of unspeci fied site of shoulder and upper arm 05/20/2006 10/03/2006 documented as of this encounter (statuses as of 08/03/2023) [address]2006 History of Past illness Narrative* Problem Noted Date Diagnosed Date Resolved Date Pain in joint, site unspecified 05/20/2006 10/03/2006 Sprain and strain of unspeci fied site of shoulder and upper arm 05/20/2006 10/03/2006 documented as of this encounter (statuses as of 08/09/2023) [address]2006 History of Past illness Narrative* Problem Noted Date Diagnosed Date Resolved Date Pain in joint, site unspecified 05/20/2006 10/03/2006 Sprain and strain of unspeci fied site of shoulder and upper arm 05/20/2006 10/03/2006 documented as of this encounter (statuses as of 08/09/2023) [address]2006 History of Past illness Narrative* Problem Noted Date Diagnosed Date Resolved Date Pain in joint, site unspecified 05/20/2006 10/03/2006 Sprain and strain of unspeci fied site of shoulder and upper arm 05/20/2006 10/03/2006 documented as of this encounter (statuses as of 08/12/2023) [address]2006 History of Past illness Narrative* Problem Noted Date Diagnosed Date Resolved Date Pain in joint, site unspecified 05/20/2006 10/03/2006 Sprain and strain of unspeci fied site of shoulder and upper arm 05/20/2006 10/03/2006 documented as of this encounter (statuses as of 09/22/2023) [address]2006 History of Past illness Narrative* Problem Noted Date Diagnosed Date Resolved Date Pain in joint, site unspecified 05/20/2006 10/03/2006 Sprain and strain of unspeci fied site of shoulder and upper arm 05/20/2006 10/03/2006 documented as of this encounter (statuses as of 10/11/2023) [address]2006 History of Past illness Narrative* Problem Noted Date Diagnosed Date Resolved Date Pain in joint, site unspecified 05/20/2006 10/03/2006 Sprain and strain of unspeci fied site of shoulder and upper arm 05/20/2006 10/03/2006 documented as of this encounter (statuses as of 10/14/2023) [address]2006 History of Past illness Narrative* Problem Noted Date Diagnosed Date Resolved Date Pain in joint, site unspecified 05/20/2006 10/03/2006 Sprain and strain of unspeci fied site of shoulder and upper arm 05/20/2006 10/03/2006 documented as of this encounter (statuses as of 10/16/2023) [address]2006 History of Past illness Narrative* Problem Noted Date Diagnosed Date Resolved Date Pain in joint, site unspecified 05/20/2006 10/03/2006 Sprain and strain of unspeci fied site of shoulder and upper arm 05/20/2006 10/03/2006 documented as of this encounter (statuses as of 10/18/2023) [address]2006 History of Past illness Narrative* Problem Noted Date Diagnosed Date Resolved Date Pain in joint, site unspecified 05/20/2006 10/03/2006 Sprain and strain of unspeci fied site of shoulder and upper arm 05/20/2006 10/03/2006 documented as of this encounter (statuses as of 10/21/2023) [address]2006 History of Past illness Narrative* Problem Noted Date Diagnosed Date Resolved Date Pain in joint, site unspecified 05/20/2006 10/03/2006 Sprain and strain of unspeci fied site of shoulder and upper arm 05/20/2006 10/03/2006 documented as of this encounter (statuses as of 10/23/2023) [address]2006 History of Past illness Narrative* Problem Noted Date Diagnosed Date Resolved Date Pain in joint, site unspecified 05/20/2006 10/03/2006 Sprain and strain of unspeci fied site of shoulder and upper arm 05/20/2006 10/03/2006 documented as of this encounter (statuses as of 10/25/2023) [address]2006 History of Past illness Narrative* Problem Noted Date Diagnosed Date Resolved Date Pain in joint, site unspecified 05/20/2006 10/03/2006 Sprain and strain of unspeci fied site of shoulder and upper arm 05/20/2006 10/03/2006 documented as of this encounter (statuses as of 10/28/2023) [address]2006 History of Past illness Narrative* Problem Noted Date Diagnosed Date Resolved Date Pain in joint, site unspecified 05/20/2006 10/03/2006 Sprain and strain of unspeci fied site of shoulder and upper arm 05/20/2006 10/03/2006 documented as of this encounter (statuses as of 10/30/2023) [address]2006 History of Past illness Narrative* Problem Noted Date Diagnosed Date Resolved Date Pain in joint, site unspecified 05/20/2006 10/03/2006 Sprain and strain of unspeci fied site of shoulder and upper arm 05/20/2006 10/03/2006 documented as of this encounter (statuses as of 10/30/2023) [address]2006 History of Past illness Narrative* Problem Noted Date Diagnosed Date Resolved Date Pain in joint, site unspecified 05/20/2006 10/03/2006 Sprain and strain of unspeci fied site of shoulder and upper arm 05/20/2006 10/03/2006 documented as of this encounter (statuses as of 11/01/2023) [address]2006 History of Past illness Narrative* Problem Noted Date Diagnosed Date Resolved Date Pain in joint, site unspecified 05/20/2006 10/03/2006 Sprain and strain of unspeci fied site of shoulder and upper arm 05/20/2006 10/03/2006 documented as of this encounter (statuses as of 11/06/2023) [address]2006 History of Past illness Narrative* Problem Noted Date Diagnosed Date Resolved Date Pain in joint, site unspecified 05/20/2006 10/03/2006 Sprain and strain of unspeci fied site of shoulder and upper arm 05/20/2006 10/03/2006 documented as of this encounter (statuses as of 11/08/2023) [address]2006 History of Past illness Narrative* Problem Noted Date Diagnosed Date Resolved Date Pain in joint, site unspecified 05/20/2006 10/03/2006 Sprain and strain of unspeci fied site of shoulder and upper arm 05/20/2006 10/03/2006 documented as of this encounter (statuses as of 11/11/2023) [address]2006 History of Past illness Narrative* Problem Noted Date Diagnosed Date Resolved Date Pain in joint, site unspecified 05/20/2006 10/03/2006 Sprain and strain of unspeci fied site of shoulder and upper arm 05/20/2006 10/03/2006 documented as of this encounter (statuses as of 11/13/2023) [address]2006 History of Past illness Narrative* Problem Noted Date Diagnosed Date Resolved Date Pain in joint, site unspecified 05/20/2006 10/03/2006 Sprain and strain of unspeci fied site of shoulder and upper arm 05/20/2006 10/03/2006 documented as of this encounter (statuses as of 11/15/2023) [address]2006 History of Past illness Narrative* Problem Noted Date Diagnosed Date Resolved Date Pain in joint, site unspecified 05/20/2006 10/03/2006 Sprain and strain of unspeci fied site of shoulder and upper arm 05/20/2006 10/03/2006 documented as of this encounter (statuses as of 11/18/2023) [address]2006 History of Past illness Narrative* Problem Noted Date Diagnosed Date Resolved Date Pain in joint, site unspecified 05/20/2006 10/03/2006 Sprain and strain of unspeci fied site of shoulder and upper arm 05/20/2006 10/03/2006 documented as of this encounter (statuses as of 11/20/2023) [address]2006 History of Past illness Narrative* Problem Noted Date Diagnosed Date Resolved Date Pain in joint, site unspecified 05/20/2006 10/03/2006 Sprain and strain of unspeci fied site of shoulder and upper arm 05/20/2006 10/03/2006 documented as of this encounter (statuses as of 11/22/2023) [address]2006 History of Past illness Narrative* Problem Noted Date Diagnosed Date Resolved Date Pain in joint, site unspecified 05/20/2006 10/03/2006 Sprain and strain of unspeci fied site of shoulder and upper arm 05/20/2006 10/03/2006 documented as of this encounter (statuses as of 11/25/2023) [address]2006 History of Past illness Narrative* Problem Noted Date Diagnosed Date Resolved Date Pain in joint, site unspecified 05/20/2006 10/03/2006 Sprain and strain of unspeci fied site of shoulder and upper arm 05/20/2006 10/03/2006 documented as of this encounter (statuses as of 11/27/2023) [address]2006 History of Past illness Narrative* Problem Noted Date Diagnosed Date Resolved Date Pain in joint, site unspecified 05/20/2006 10/03/2006 Sprain and strain of unspeci fied site of shoulder and upper arm 05/20/2006 10/03/2006 documented as of this encounter (statuses as of 11/29/2023) [address]2006 History of Past illness Narrative* Problem Noted Date Diagnosed Date Resolved Date Pain in joint, site unspecified 05/20/2006 10/03/2006 Sprain and strain of unspeci fied site of shoulder and upper arm 05/20/2006 10/03/2006 documented as of this encounter (statuses as of 12/02/2023) [address]2006 History of Past illness Narrative* Problem Noted Date Diagnosed Date Resolved Date Pain in joint, site unspecified 05/20/2006 10/03/2006 Sprain and strain of unspeci fied site of shoulder and upper arm 05/20/2006 10/03/2006 documented as of this encounter (statuses as of 12/04/2023) [address]2006 History of Past illness Narrative* Problem Noted Date Diagnosed Date Resolved Date Pain in joint, site unspecified 05/20/2006 10/03/2006 Sprain and strain of unspeci fied site of shoulder and upper arm 05/20/2006 10/03/2006 documented as of this encounter (statuses as of 12/09/2023) [address]2006 History of Past illness Narrative* Problem Noted Date Diagnosed Date Resolved Date Pain in joint, site unspecified 05/20/2006 10/03/2006 Sprain and strain of unspeci fied site of shoulder and upper arm 05/20/2006 10/03/2006 documented as of this encounter (statuses as of 12/11/2023) [address]2006 History of Past illness Narrative* Problem Noted Date Diagnosed Date Resolved Date Pain in joint, site unspecified 05/20/2006 10/03/2006 Sprain and strain of unspeci fied site of shoulder and upper arm 05/20/2006 10/03/2006 documented as of this encounter (statuses as of 12/13/2023) [address]2006 History of Past illness Narrative* Problem Noted Date Diagnosed Date Resolved Date Pain in joint, site unspecified 05/20/2006 10/03/2006 Sprain and strain of unspeci fied site of shoulder and upper arm 05/20/2006 10/03/2006 documented as of this encounter (statuses as of 12/16/2023) [address]2006 History of Past illness Narrative* Problem Noted Date Diagnosed Date Resolved Date Pain in joint, site unspecified 05/20/2006 10/03/2006 Sprain and strain of unspeci fied site of shoulder and upper arm 05/20/2006 10/03/2006 documented as of this encounter (statuses as of 12/18/2023) [address]2006 History of Past illness Narrative* Problem Noted Date Diagnosed Date Resolved Date Pain in joint, site unspecified 05/20/2006 10/03/2006 Sprain and strain of unspeci fied site of shoulder and upper arm 05/20/2006 10/03/2006 documented as of this encounter (statuses as of 12/20/2023) [address]2006 History of Past illness Narrative* Problem Noted Date Diagnosed Date Resolved Date Pain in joint, site unspecified 05/20/2006 10/03/2006 Sprain and strain of unspeci fied site of shoulder and upper arm 05/20/2006 10/03/2006 documented as of this encounter (statuses as of 12/23/2023) [address]2006 History of Past illness Narrative* Problem Noted Date Diagnosed Date Resolved Date Pain in joint, site unspecified 05/20/2006 10/03/2006 Sprain and strain of unspeci fied site of shoulder and upper arm 05/20/2006 10/03/2006 documented as of this encounter (statuses as of 12/25/2023) [address]2006 History of Past illness Narrative* Problem Noted Date Diagnosed Date Resolved Date Pain in joint, site unspecified 05/20/2006 10/03/2006 Sprain and strain of unspeci fied site of shoulder and upper arm 05/20/2006 10/03/2006 documented as of this encounter (statuses as of 12/27/2023) [address]2006 History of Past illness Narrative* Problem Noted Date Diagnosed Date Resolved Date Pain in joint, site unspecified 05/20/2006 10/03/2006 Sprain and strain of unspeci fied site of shoulder and upper arm 05/20/2006 10/03/2006 documented as of this encounter (statuses as of 12/30/2023) [facility] Chief Complaint 4 M FU AMYLOID EORDER/PRE PROCEDURE Reason for Visit Aortic root dilatati on Bicuspid aortic valve Cardiomyopathy Essential hypertension Pure hypercholesterolemia [facility] Work Phone: Chief complaint+Reason for visit Narrative* Chief Complaint 4 M FU AMYLOID EORDER/PRE PROCEDURE AROTIC STENOSIS AROTIC STENOSIS Reason for Visit Aortic root dilatati on Bicuspid aortic valve Cardiomyopathy Essential hypertension Pure hypercholesterolemia [facility] Work Phone: Discharge summary Author Zane Alvarado [facility] Note Date/Time December 10, 2024 9:27 am [facility] [address] [place] [address] / REHABILITATION SERVICES DISCHARGE SUMMARY MR#: [id number] Acct: [id number] Name: MARTIN HENSON Rep #: [id number] 01 : 1955 69 From: Cert. IDANIA MagañaT, OCS Referring Dr.: ALEXANDRA Mathews Status: REG R Insurance: [facility] SEL[employer] PAY [employer]URANCE Discharge Summary D/C summary: It has been my pleasure to treat MARTIN HENSON referred by ALEXANDRA Mathew, with the diagnosis of PAIN IN RIGHT SHOULDER for a total of 25 visit(s). Discharge Date: Please see the following information for a summary of their discharge status. Subjective Subjective: Doing well ready for d/c Pain Right: Pain Intensity (Out of 10): 0 Overall Improvement % Improvement: 80 Objective Objective/Function: POSTURE: mild forward posture NEURO: denies paresthesia/tingling AROM: shoulder flexion 170 degrees ,170 abduction ,ER 90 degrees ,IR L5 PALAPTION: unremarkable MMT: ( peak force) infraspinatus 8.4 ,supraspinatus 11.8,deltoid 6.8 CAPSULAR RESTRICTION: mild tight Goals Goal 1:: Patient to be I with shoulder ex's Goal Progress: Goal Met Goal 2:: Patient to improve peak force RTC /deptoid by 5- strength to improve function and OH activities Goal Progress: Progressing Goal 3:: Patient to improve AROM to reach in cupboard to improve ADLS Goal Progress: Goal Met Goal 4:: Patient to improve quick dash by 5 points to improve QOL and function (NEW GOAL) Goal Progress: Goal Met Goal 5:: Patient to demonstrate 40-50% improvement with less pain with OH activities with right UE (NEW GOAL) Goal Progress: Goal Met Plan Plan: D/C D/C Information d/c sentence: If there are questions or concerns regarding this patient's physical therapy, please feel free to call me at [phone]. Thank you for the referral of thispatient. Sincerely, Zane Alvarado, PT, Cert MDT, OCS Balance/Gait/Functional tests Balance/Special Test Scores Quick DASH Score: 9.0900 Improvement % Improvement: 80 <Electronically signed by Zane Alvarado PT, Cert. T, OCS> 12/10/24926 CC: ALEXANDRA Mathews ~ JLA Signed [facility] Work Phone: Evaluation noteNo assessment information available [facility] Work Phone: Evaluation note* Diagnosis Onset Date Resolution Status Fungal dermatitis acute Aortic root dilatation chron ic Bicuspid aortic valve chroni c Cardiomyopathy chronic Essential hypertension chron ic Pure hypercholesterolemia [facility] Work Phone: Evaluation note* Diagnosis Onset Date Resolution Status Aortic root dilatation chron ic Bicuspid aortic valve chroni c Cardiomyopathy chronic Essential hypertension chron ic Pure hypercholesterolemia [facility] Work Phone: Evaluation note* Diagnosis Aortic valve disorder- Primary Aortic valve disorders Nonrheumatic aortic valve stenosis Aortic valve disorders Pre-operative cardiovascular examination Aortic valve disorder Aortic valve disorders Hypertrophic cardiomyopathy (HCC) Other [facility]rophic [facility] Nonrheumatic aortic valve stenosis Aortic valve disorders Pre-operative cardiovascular examination Aortic valve disorder Aortic valve disorders Hypertrophic cardiomyopathy (HCC) Other hypertrophic cardiomyopathy Nonrheumatic aortic valve stenosis Aortic valve disorders Pre-operative cardiovascular examination Aortic valve disorder Aortic valve disorders Hypertrophic cardiomyopathy (HCC) Other hypertrophic cardiomyopathy [facility] Pre-operative cardiovascular examination- Primary Nonrheumatic aortic valve stenosis Aortic valve disorders Aortic valve disorder Aortic valve disorders Hypertrophic cardiomyopathy (HCC) Other hypertrophic cardiomyopathy Nonrheumatic aortic valve stenosis Aortic valve disorders Pre-operative cardiovascular examination Aortic valve disorder Aortic valve disorders Hypertrophic cardiomyopathy (HCC) Other hypertrophic cardiomyopathy [facility] Diagnosis Nonrheumatic aortic valve stenosis Aortic valve disorders Pre-operative cardiovascular examination Aortic valve disorder Aortic valve disorders Hypertrophic cardiomyopathy (HCC) Other hypertrophic cardiomyopathy Aortic root dilatation (HCC) Thoracic aortic ectasia Angina pectoris (HCC) Other and unspecified angina pectoris Nonrheumatic aortic valve stenosis Aortic valve disorders Pre-operative cardiovascular examination Aortic valve disorder Aortic valve disorders Hypertrophic cardiomyopathy (HCC) Other hypertrophic cardiomyopathy [facility] Diagnosis Nonrheumatic aortic valve stenosis Aortic valve disorders Pre-operative cardiovascular examination Aortic valve disorder Aortic valve disorders Hypertrophic cardiomyopathy (HCC) Other hypertrophic cardiomyopathy Nonrheumatic aortic valve stenosis Aortic valve disorders Pre-operative cardiovascular examination Aortic valve disorder Aortic valve disorders Hypertrophic cardiomyopathy (HCC) Other hypertrophic cardiomyopathy [facility] Diagnosis Nonrheumatic aortic valve stenosis Aortic valve disorders Pre-operative cardiovascular examination Aortic valve disorder Aortic valve disorders Hypertrophic cardiomyopathy (HCC) Other hypertrophic cardiomyopathy Nonrheumatic aortic valve stenosis Aortic valve disorders Pre-operative cardiovascular examination Aortic valve disorder Aortic valve disorders Hypertrophic cardiomyopathy (HCC) Other hypertrophic cardiomyopathy [facility] Diagnosis Pre-op exam- Primary Preoperative examination, unspecified Nonrheumatic aortic valve stenosis Aortic valve disorders Pre-operative cardiovascular examination Aortic valve disorder Aortic valve disorders Hypertrophic cardiomyopathy (HCC) Other hypertrophic cardiomyopathy [facility] Diagnosis Encounter for preoperative anesthesiology assessment for cardiac surgery- Primary Nonrheumatic aortic valve stenosis Aortic valve disorders Pre-operative cardiovascular examination Aortic valve disorder Aortic valve disorders Hypertrophic cardiomyopathy (HCC) Other hypertrophic cardiomyopathy [facility] Diagnosis Surgery follow-up- Primary Follow-up examination, following unspecified surgery [facility] Diagnosis Nonrheumatic aortic valve stenosis- Primary Aortic valve disorders Primary hypertension Unspecified essential hypertension [facility] Diagnosis S/P AVR (aortic valve replacement)- Primary Heart valve replaced by other means S/P ascending aortic aneurysm repair Other postprocedural status [facility] Diagnosis Surgery follow-up Follow-up examination, following unspecified surgery [facility] Diagnosis Hypertrophic cardiomyopathy (HCC)- Primary Other hypertrophic cardiomyopathy Aortic root dilatation (HCC) Thoracic aortic ectasia Angina pectoris (HCC) Other and unspecified angina pectoris Obesity, Class I, BMI 30-34.9 Obesity, unspecified Vasculopathy Unspecified circulatory system disorder Adverse effect of treatment, initial encounter S/P AVR (aortic valve replacement) and aortoplasty Heart valve replaced by other means [facility] Diagnosis S/P AVR (aortic valve replacement)- Primary Heart valve replaced by other means [facility] Diagnosis S/P AVR (aortic valve replacement)- Primary Heart valve replaced by other means [facility] Diagnosis S/P AVR (aortic valve replacement)- Primary Heart valve replaced by other means [facility] Diagnosis S/P AVR (aortic valve replacement)- Primary Heart valve replaced by other means [facility] Diagnosis S/P AVR (aortic valve replacement)- Primary Heart valve replaced by other means [facility] Diagnosis S/P AVR (aortic valve replacement)- Primary Heart valve replaced by other means [facility] Diagnosis S/P AVR (aortic valve replacement)- Primary Heart valve replaced by other means [facility] Diagnosis S/P AVR (aortic valve replacement)- Primary Heart valve replaced by other means [facility] Diagnosis S/P AVR (aortic valve replacement)- Primary Heart valve replaced by other means [facility] Diagnosis S/P AVR (aortic valve replacement)- Primary Heart valve replaced by other means [facility] Diagnosis S/P AVR (aortic valve replacement)- Primary Heart valve replaced by other means [facility] Diagnosis S/P AVR (aortic valve replacement)- Primary Heart valve replaced by other means [facility] Diagnosis S/P AVR (aortic valve replacement)- Primary Heart valve replaced by other means [facility] Diagnosis S/P AVR (aortic valve replacement)- Primary Heart valve replaced by other means [facility] Diagnosis S/P AVR (aortic valve replacement)- Primary Heart valve replaced by other means [facility] Diagnosis S/P AVR (aortic valve replacement)- Primary Heart valve replaced by other means [facility] Diagnosis S/P AVR- Primary Heart valve replaced by other means [facility] Diagnosis S/P AVR (aortic valve replacement)- Primary Heart valve replaced by other means [facility] Diagnosis S/P AVR (aortic valve replacement)- Primary Heart valve replaced by other means [facility] Diagnosis S/P AVR (aortic valve replacement)- Primary Heart valve replaced by other means [facility] Diagnosis S/P AVR (aortic valve replacement)- Primary Heart valve replaced by other means [facility] Diagnosis S/P AVR (aortic valve replacement)- Primary Heart valve replaced by other means [facility] Diagnosis S/P AVR (aortic valve replacement)- Primary Heart valve replaced by other means [facility] Diagnosis S/P AVR (aortic valve replacement)- Primary Heart valve replaced by other means [facility] Diagnosis S/P AVR (aortic valve replacement)- Primary Heart valve replaced by other means [facility] Diagnosis S/P AVR (aortic valve replacement)- Primary Heart valve replaced by other means [facility] Diagnosis S/P AVR (aortic valve replacement)- Primary Heart valve replaced by other means [facility] Diagnosis S/P AVR (aortic valve replacement)- Primary Heart valve replaced by other means [facility] Diagnosis S/P AVR (aortic valve replacement)- Primary Heart valve replaced by other means [facility] Diagnosis S/P AVR (aortic valve replacement)- Primary Heart valve replaced by other means [facility] Diagnosis S/P AVR (aortic valve replacement)- Primary Heart valve replaced by other means [facility] Diagnosis S/P AVR (aortic valve replacement)- Primary Heart valve replaced by other means [facility] Diagnosis S/P AVR (aortic valve replacement)- Primary Heart valve replaced by other means [facility] Diagnosis Vasculopathy Unspecified circulatory system disorder Adverse effect of treatment, initial encounter [facility] Diagnosis Essential hypertension- Primary Unspecified essential hypertension S/P AVR (aortic valve replacement) and aortoplasty Heart valve replaced by other means Chronic heart failure with preserved ejection fraction (HCC) HOCM (hypertrophic obstructive cardiomyopathy) (HCC) Hypertrophic obstructive cardiomyopathy [facility] Diagnosis HOCM (hypertrophic obstructive cardiomyopathy) (HCC)- Primary Hypertrophic obstructive cardiomyopathy documented in this encounter [facility] note* Diagnosis Primary hypertension- Primary Unspecified essential hypertension Aortic root dilation (HCC) Thoracic aortic ectasia Encounter for preprocedural cardiovascular examination Pre-operative cardiovascular examination History of aortic valve replacement Heart valve replaced by other means documented in this encounter [facility] note* Diagnosis HOCM (hypertrophic obstructive cardiomyopathy) (HCC) Hypertrophic obstructive cardiomyopathy [facility] Diagnosis HOCM (hypertrophic obstructive cardiomyopathy) (HCC)- Primary Hypertrophic obstructive cardiomyopathy [facility] Diagnosis Primary hypertension Unspecified essential hypertension [facility] Diagnosis NSVT (nonsustained ventricular tachycardia) (HCC)- Primary Paroxysmal ventricular tachycardia HOCM (hypertrophic obstructive cardiomyopathy) (HCC) Hypertrophic obstructive cardiomyopathy [facility] Diagnosis HOCM (hypertrophic obstructive cardiomyopathy) (HCC) Hypertrophic obstructive cardiomyopathy NSVT (nonsustained ventricular tachycardia) (HCC) Paroxysmal ventricular tachycardia [facility] Diagnosis HOCM (hypertrophic obstructive cardiomyopathy) (HCC) Hypertrophic obstructive cardiomyopathy documented in this encounter [facility] for referral (narrative)* Outpatient Procedure (Routine) - Authorized Specialty Diagnoses / Procedures Referred By Contac t [facility] Diagnoses Surgery follow-up Procedures ECG COMPLETE ECG ROUTINE ECG W/LEAST 12 LDS W/I&R Usha Navarro MD [address] [place], [place] [id number] [facility] [place] [phone] Referral ID Status Reason Start Date Expiration Date Visits Requested Visits Authorized [id number] Authorized Auto-Generat ed Referral 3 08/01/2024 [address] [facility] for referral (narrative)* Outpatient Procedure (Routine) - Pending Review Specialty Diagnoses / Procedures Referred By Contac t Referred To Contact [facility] Diagnoses Nonrheumatic aortic valve stenosis Primary hypertension Procedures ECHO ECHO TTHRC R-T 2D W/WOM-MODE COMPL SPEC&COLR D Deena Francois MD [address] [place] [address] [place] [phone] Referral ID Status Reason Start Date Expiration Date Visits Requested Visits Authorized [id number] Pending Review Auto-Generat ed Referral 3 08/02/2024 1 1 * Outpatient Procedure (Routine) - Authorized Specialty Diagnoses / Procedures Referred By Contac t Referred To Contact [facility] Diagnoses Nonrheumatic aortic valve stenosis Primary hypertension Procedures ECG COMPLETE ECG ROUTINE ECG W/LEAST 12 LDS W/I&R Deena Francois MD [address] [place] [address] [place] [phone] Referral ID Status Reason Start Date Expiration Date Visits Requested Visits Authorized [id number] Authorized Auto-Generat ed Referral 3 08/02/2024 [address] [facility] for referral (narrative)* Outpatient Procedure (Routine) - Authorized Specialty Diagnoses / Procedures Referred By Contac t Referred To Contact [facility] [place] Diagnoses Essential hypertension S/P AVR (aortic valve replacement) and aortoplasty Chronic heart failure with preserved ejection fraction (HCC) HOCM (hypertrophic obstructive cardiomyopathy) ([facility]) Procedures ECHO ECHO TTHRC R-T 2D W/WOM-MODE COMPL SPEC&COLR D Deena Francois MD [address] [place] [address] [address] Referral ID Status Reason Start Date Expiration Date Visits Requested Visits Authorized [id number] Authorized Auto-Generat ed Referral 01/08/2024 01/07/2025 1 1 * Outpatient Procedure (Routine) - Authorized Specialty Diagnoses / Procedures Referred By Contac t Referred To Contact [facility] Diagnoses Essential hypertension S/P AVR (aortic valve replacement) and aortoplasty Chronic heart failure with preserved ejection fraction (HCC) HOCM (hypertrophic obstructive cardiomyopathy) ([facility]) Procedures ECG COMPLETE ECG ROUTINE ECG W/LEAST 12 LDS W/I&R Deena Francois MD [address] [place] [address] [address] Referral ID Status Reason Start Date Expiration Date Visits Requested Visits Authorized [id number] Authorized Auto-Generat ed Referral 01/08/2024 01/07/2025 1 1 * Transition of Care (Routine) - Ref Not Required Specialty Diagnoses / Procedures Referred By Contac t Referred To Contact [facility] Procedures CARDIOVASCULAR MEDICINE OP FOLLOW UP APPT ORDER Deena Francois MD [address] [place] [address] [address] Referral ID Status Reason Start Date Expiration Date Visits Requested Visits Authorized [id number] Ref Not Required PCP Requested Referral 02/08/2024 01/07/2025 [address] [facility] for referral (narrative)* Outpatient Procedure (Routine) - New Request Specialty Diagnoses / Procedures Referred By Contac t Referred To Contact [facility] [place] Diagnoses HOCM (hypertrophic obstructive cardiomyopathy) (HCC) Procedures STRESS ECHO TREADMILL ECHO TTHRC R-T 2D W/WO M-MODE COMPLETE REST&ST Deena Francois MD [address] [place] [address] [facility] [address] [address] Referral ID Status Reason Start Date Expiration Date Visits Requested Visits Authorized [id number] New Request Auto-Generat ed Referral 03/27/2024 03/27/2025 [address] [facility] for referral (narrative)* Outpatient Procedure (Routine) - Closed Specialty Diagnoses / Procedures Referred By Contac t Referred To Contact [facility] [place] Diagnoses HOCM (hypertrophic obstructive cardiomyopathy) (HCC) Procedures STRESS ECHO TREADMILL ECHO TTHRC R-T 2D W/WO M-MODE COMPLETE REST&ST Deena Francois MD [address] [place] [address] [address] Referral ID Status Reason Start Date Expiration Date V isits Requested Visits Authorized [id number] Closed Auto-Generate d Referral 04/02/2024 09/08/2024 [address] [facility] for referral (narrative)* Outpatient Procedure (Routine) - Authorized Specialty Diagnoses / Procedures Referred By Contac t Referred To Contact [facility] [place] Diagnoses NSVT (nonsustained ventricular tachycardia) (HCC) HOCM (hypertrophic obstructive cardiomyopathy) (HCC) Procedures ECG COMPLETE ECG ROUTINE ECG W/LEAST 12 LDS W/I&R Edmund Kamara MD [address] [place] [address] [facility] [place] [address] Referral ID Status Reason Start Date Expiration Date Visits Requested Visits Authorized [id number] Authorized Auto-Generat ed Referral 06/22/2025 1 1 [facility]No reason for referral information availableWCleveland [facility]: Reason for visit Narrative* Outpatient Procedure (Routine) - Closed Specialty Diagnoses / Procedures Referred By Contac t Ref[facility] Diagnoses HOCM (hypertrophic obstructive cardiomyopathy) (HCC) Procedures STRESS ECHO TREADMILL ECHO TTHRC R-T 2D W/WO M-MODE COMPLETE REST&ST Haoumegan-JudenhercDeena MD [address] [place], [place] [phone] [facility] [place] [address] Referral ID Status Reason Start Date Expiration Date V isits Requested Visits Authorized [id number] Closed Auto-Generate d Referral 04/02/2024 09/08/2024 1 1 [facility] Summary Purpose Family History Relationship Condition Age at Onset Recorded Date/T domo Not Specified Family history of ce rebrovascular accident (CVA) Unknown Family history of hypertension Unknown father Cerebrovascular accident (CVA) Unknown Hypertension Unknown mother Hypertension Unknown brother Hypertension Unknown sister Hypertension Unknown Relationship Condition Age at Onset Recorded Date/T domo Not Specified Family history of ce rebrovascular accident (CVA) Unknown Family history of hypertension Unknown father Cerebrovascular accident (CVA) Unknown Hypertension Unknown Malignant neoplasm of skin Unknown mother Hypertension Unknown Malignant neoplasm of breast Unknown brother Hypertension Unknown sister Hypertension Unknown Advance Directives Advance Directive Response Recorded Date/ Time Advance Directives No February 23 8:17am Living Will No April 16, 2017 3:49pm Power of Auto Radiator Mechanic No April 16 3:49pm Advance Directive Response Recorded Date/ Time Advance Directives No February 23 7:17am Living Will No April 16, 2017 2:49pm Power of Auto Radiator Mechanic No April 16 2:49pm Advance Directive Response Recorded Date/ Time Advance Directives No June 10, 2023 7:54am Living Will No June 10 7:54am Power of Auto Radiator Mechanic No June 10 023 7:54am Advance Directive Response Recorded Date/ Time Advance Directives No June 10, 2023 7:54am Chief Complaint and Reason for Visit Chief Complaint INT LAB Chief Complaint INT LAB MURMER Chief Complaint INT LAB MURMER REVIEW ECHO RESULTS NEW PT LAB Cardiomyopathy, unspecified EXCISIONAL FAT PAD BIOPSY BIOPSY Reason for Visit Nonrheumatic aortic (valve) stenosis Aortic root dilatation Bicuspid aortic valve Essential hypertension Pure hypercholesterolemia Cardiomyopathy Cardiomyopathy Chief Complaint RASH UNDER LEFT ARM 4 M FU AMYLOID Reason for Visit Fungal dermatitis Aortic root dilatation Bicuspid aortic valve Cardiomyopathy Essential hypertension Pure hypercholesterolemia Chief Complaint Admit Date RIGHT SHOULDER, FALLS. RX HERE December 8:30am Reason for Referral Specialty Diagnoses / Procedures Referred By Maria D rajan Referred To Contact [facility] Diagnoses Aortic valve disorder Procedures MRA CHEST CARDIOVASCULAR WO IVCON MRA CHEST [place] [address] [place] [address] [facility] [place] [address] Referral ID Status Reason Start Date Expiration Date Visits Requested Visits Authorized [id number] Pending Review Auto-Generat ed Referral 3 08/21/2024 1 1 Specialty Diagnoses / Procedures Referred By Maria D rajan Referred To Contact Procedures CARDIOVASCULAR MEDICINE OP FOLLOW UP APPT ORDER Deena Francois MD [address] [place] [address] Referral ID Status Reason Start Date Expiration Date Visits Requested Visits Authorized [id number] Ref Not Required PCP Requested Referral 3 07/23/2024 1 1 Specialty Diagnoses / Procedures Referred By Maria D rajan Referred To Contact CT [facility] Diagnoses Vasculopathy Adverse effect of treatment, initial encounter Procedures CTA CHEST (GATED) W IVCON CT ANGIOGRAPHY CHEST W/CONTRAST/NONCONTRAST Deena Francois MD [address] [place] [address] [facility] [place] [address] Referral ID Status Reason Start Date Expiration Date Visits Requested Visits Authorized [id number] Authorized Auto-Generat ed Referral 12/18/2023 10/17/2024 1 1 Specialty Diagnoses / Procedures Referred By Contac t Ref[facility] Diagnoses Hypertrophic cardiomyopathy (HCC) S/P AVR (aortic valve replacement) and aortoplasty Procedures ECHO ECHO TTHRC R-T 2D W/WOM-MODE COMPL SPEC&COLR D Deena Francois MD [address] [place] [address] [facility] [place] [address] [place] [address] Referral ID Status Reason Start Date Expiration Date Visits Requested Visits Authorized [id number] Authorized Auto-Generat ed Referral 12/18/2023 09/17/2024 1 1 Referral ID Status Reason Start Date Expiration Date Visits Requested Visits Authorized [id number] Ref Not Required PCP Requested Referral 12/18/2023 09/17/2024 1 1 Specialty Diagnoses / Procedures Referred By Contac t Referred To Contact Diagnoses Hypertrophic cardiomyopathy (HCC) Aortic root dilatation (HCC) Obesity, Class I, BMI 30-34.9 Procedures REFERRAL TO CARDIAC REHAB OFFICE/OUTPATIENT NEW HIGH MDM 60 MINUTES Deena Francois MD [address] [place] [address] Referral ID Status Reason Start Date Expiration Date Visits Requested Visits Authorized [id number] Authorized PCP Requested Referral 09/18/2023 12/17/2023 1 1 Specialty Diagnoses / Procedures Referred By Contac t Referred To Contact CT [facility] Diagnoses Encounter for preprocedural cardiovascular examination Procedures CTA CHEST (GATED) W IVCON CT ANGIOGRAPHY CHEST W/CONTRAST/NONCONTRAST Deena Francois MD [facility] [place] [phone] [facility] [place] [address] Referral ID Status Reason Start Date Expiration Date Visits Requested Visits Authorized [id number] New Request Auto-Generat ed Referral 03/25/2024 04/24/2025 1 1 Specialty Diagnoses / Procedures Referred By Contac t Referred To Contact [facility] [place] Diagnoses Aortic root dilation (HCC) History of aortic valve replacement Procedures ECHO ECHO TTHRC R-T 2D W/WOM-MODE COMPL SPEC&COLR D Deena Francois MD [facility] [place] [address] [facility] [address] [address] Referral ID Status Reason Start Date Expiration Date Visits Requested Visits Authorized [id number] New Request Auto-Generat ed Referral 03/25/2024 03/25/2025 1 1 Specialty Diagnoses / Procedures Referred By Contac t Referred To Contact [facility] Diagnoses Aortic root dilation (HCC) History of aortic valve replacement Procedures ECG COMPLETE ECG ROUTINE ECG W/LEAST 12 LDS W/I&[place] [address] [place] [address] [place] [address] Referral ID Status Reason Start Date Expiration Date Visits Requested Visits Authorized [id number] New Request Auto-Generat ed Referral 03/25/2024 03/25/2025 1 1 Specialty Diagnoses / Procedures Referred By Contac t Referred To Contact [facility] Procedures CARDIOVASCULAR MEDICINE OP FOLLOW UP APPT ORDER Deena Francois MD [address] [place] [address] [place] [phone] Referral ID Status Reason Start Date Expiration Date Visits Requested Visits Authorized [id number] Ref Not Required PCP Requested Referral 12/25/2024 03/25/2025 1 1 Additional Source Comments (unrecognized sect ion and content) No Status Records FoundNo Status Records FoundNo Status Records FoundNo Status Records FoundNo Status Records Found INFORMATION SOURCE (unrecogn ized section and content) DATE CREATED AUTHOR 11/02/2019 [facility] DATE CREATED AUTHOR AUTHOR'S ORGANIZ ATION 06/29/2023 [facility] DATE CREATED AUTHOR AUTHOR'S ORGANIZ ATION 04/28/2024 [facility] DATE CREATED AUTHOR AUTHOR'S ORGANIZ ATION 08/29/2024 [facility] DATE CREATED AUTHOR AUTHOR'S ORGANIZ ATION 12/25/2024 [facility] Goals (unrecognized section and content) Goals may be documented in a n alternate sectionGoals may be documented in an alternate sectionGoals may be documented in an alternate sectionGoals may be documented in an alternate sectionGoals may be documented in an alternate sectionGoals may be documented in an alternate sectionGoals may be documented in an alternate sectionGoals may be documented in an alternate section Source Comments (unrecognize d section and content) In the event this informatio n is protected by the Federal Confidentiality of Alcohol and Drug Abuse Patient Records regulations: The Federal rules restrict any use of the information to criminally investigate or prosecute any alcohol or drug abuse patient.[facility] the event this information is protected by the Federal Confidentiality of Alcohol and Drug Abuse Patient Records regulations: The Federal rules restrict any use of the information to criminally investigate or prosecute any alcohol or drug abuse patient.[facility] Center[facility] the event this information is protected by the Federal Confidentiality of Alcohol and Drug Abuse Patient Records regulations: The Federal rules restrict any use of the information to criminally investigate or prosecute any alcohol or drug abuse patient.[facility] Center[facility] the event this information is protected by the Federal Confidentiality of Alcohol and Drug Abuse Patient Records regulations: The Federal rules restrict any use of the information to criminally investigate or prosecute any alcohol or drug abuse patient.[facility] the event this information is protected by the Federal Confidentiality of Alcohol and Drug Abuse Patient Records regulations: The Federal rules restrict any use of the information to criminally investigate or prosecute any alcohol or drug abuse patient.[facility] the event this information is protected by the Federal Confidentiality of Alcohol and Drug Abuse Patient Records regulations: The Federal rules restrict any use of the information to criminally investigate or prosecute any alcohol or drug abuse patient.[facility] Center[facility] the event this information is protected by the Federal Confidentiality of Alcohol and Drug Abuse Patient Records regulations: The Federal rules restrict any use of the information to criminally investigate or prosecute any alcohol or drug abuse patient.[facility] Center[facility] the event this information is protected by the Federal Confidentiality of Alcohol and Drug Abuse Patient Records regulations: The Federal rules restrict any use of the information to criminally investigate or prosecute any alcohol or drug abuse patient.[facility] CenterIn the event this information is protected by the Federal Confidentiality of Alcohol and Drug Abuse Patient Records regulations: The Federal rules restrict any use of the information to criminally investigate or prosecute any alcohol or drug abuse patient.[facility] CenterIn the event this information is protected by the Federal Confidentiality of Alcohol and Drug Abuse Patient Records regulations: The Federal rules restrict any use of the information to criminally investigate or prosecute any alcohol or drug abuse patient.[facility] Center[facility] the event this information is protected by the Federal Confidentiality of Alcohol and Drug Abuse Patient Records regulations: The Federal rules restrict any use of the information to criminally investigate or prosecute any alcohol or drug abuse patient.[facility] Center[facility] the event this information is protected by the Federal Confidentiality of Alcohol and Drug Abuse Patient Records regulations: The Federal rules restrict any use of the information to criminally investigate or prosecute any alcohol or drug abuse patient.[facility] CenterIn the event this information is protected by the Federal Confidentiality of Alcohol and Drug Abuse Patient Records regulations: The Federal rules restrict any use of the information to criminally investigate or prosecute any alcohol or drug abuse patient.[facility] CenterIn the event this information is protected by the Federal Confidentiality of Alcohol and Drug Abuse Patient Records regulations: The Federal rules restrict any use of the information to criminally investigate or prosecute any alcohol or drug abuse patient.[facility] CenterIn the event this information is protected by the Federal Confidentiality of Alcohol and Drug Abuse Patient Records regulations: The Federal rules restrict any use of the information to criminally investigate or prosecute any alcohol or drug abuse patient.[facility] CenterIn the event this information is protected by the Federal Confidentiality of Alcohol and Drug Abuse Patient Records regulations: The Federal rules restrict any use of the information to criminally investigate or prosecute any alcohol or drug abuse patient.[facility] Center[facility] the event this information is protected by the Federal Confidentiality of Alcohol and Drug Abuse Patient Records regulations: The Federal rules restrict any use of the information to criminally investigate or prosecute any alcohol or drug abuse patient.[facility] CenterIn the event this information is protected by the Federal Confidentiality of Alcohol and Drug Abuse Patient Records regulations: The Federal rules restrict any use of the information to criminally investigate or prosecute any alcohol or drug abuse patient.[facility] CenterIn the event this information is protected by the Federal Confidentiality of Alcohol and Drug Abuse Patient Records regulations: The Federal rules restrict any use of the information to criminally investigate or prosecute any alcohol or drug abuse patient.[facility] CenterIn the event this information is protected by the Federal Confidentiality of Alcohol and Drug Abuse Patient Records regulations: The Federal rules restrict any use of the information to criminally investigate or prosecute any alcohol or drug abuse patient.[facility] CenterIn the event this information is protected by the Federal Confidentiality of Alcohol and Drug Abuse Patient Records regulations: The Federal rules restrict any use of the information to criminally investigate or prosecute any alcohol or drug abuse patient.[facility] CenterIn the event this information is protected by the Federal Confidentiality of Alcohol and Drug Abuse Patient Records regulations: The Federal rules restrict any use of the information to criminally investigate or prosecute any alcohol or drug abuse patient.[facility] CenterIn the event this information is protected by the Federal Confidentiality of Alcohol and Drug Abuse Patient Records regulations: The Federal rules restrict any use of the information to criminally investigate or prosecute any alcohol or drug abuse patient.[facility] CenterIn the event this information is protected by the Federal Confidentiality of Alcohol and Drug Abuse Patient Records regulations: The Federal rules restrict any use of the information to criminally investigate or prosecute any alcohol or drug abuse patient.[facility] CenterIn the event this information is protected by the Federal Confidentiality of Alcohol and Drug Abuse Patient Records regulations: The Federal rules restrict any use of the information to criminally investigate or prosecute any alcohol or drug abuse patient.[facility] CenterIn the event this information is protected by the Federal Confidentiality of Alcohol and Drug Abuse Patient Records regulations: The Federal rules restrict any use of the information to criminally investigate or prosecute any alcohol or drug abuse patient.[facility] CenterIn the event this information is protected by the Federal Confidentiality of Alcohol and Drug Abuse Patient Records regulations: The Federal rules restrict any use of the information to criminally investigate or prosecute any alcohol or drug abuse patient.[facility] CenterIn the event this information is protected by the Federal Confidentiality of Alcohol and Drug Abuse Patient Records regulations: The Federal rules restrict any use of the information to criminally investigate or prosecute any alcohol or drug abuse patient.[facility] CenterIn the event this information is protected by the Federal Confidentiality of Alcohol and Drug Abuse Patient Records regulations: The Federal rules restrict any use of the information to criminally investigate or prosecute any alcohol or drug abuse patient.[facility] CenterIn the event this information is protected by the Federal Confidentiality of Alcohol and Drug Abuse Patient Records regulations: The Federal rules restrict any use of the information to criminally investigate or prosecute any alcohol or drug abuse patient.[facility] CenterIn the event this information is protected by the Federal Confidentiality of Alcohol and Drug Abuse Patient Records regulations: The Federal rules restrict any use of the information to criminally investigate or prosecute any alcohol or drug abuse patient.[facility] CenterIn the event this information is protected by the Federal Confidentiality of Alcohol and Drug Abuse Patient Records regulations: The Federal rules restrict any use of the information to criminally investigate or prosecute any alcohol or drug abuse patient.[facility] CenterIn the event this information is protected by the Federal Confidentiality of Alcohol and Drug Abuse Patient Records regulations: The Federal rules restrict any use of the information to criminally investigate or prosecute any alcohol or drug abuse patient.[facility] CenterIn the event this information is protected by the Federal Confidentiality of Alcohol and Drug Abuse Patient Records regulations: The Federal rules restrict any use of the information to criminally investigate or prosecute any alcohol or drug abuse patient.[facility] CenterIn the event this information is protected by the Federal Confidentiality of Alcohol and Drug Abuse Patient Records regulations: The Federal rules restrict any use of the information to criminally investigate or prosecute any alcohol or drug abuse patient.[facility] CenterIn the event this information is protected by the Federal Confidentiality of Alcohol and Drug Abuse Patient Records regulations: The Federal rules restrict any use of the information to criminally investigate or prosecute any alcohol or drug abuse patient.[facility] CenterIn the event this information is protected by the Federal Confidentiality of Alcohol and Drug Abuse Patient Records regulations: The Federal rules restrict any use of the information to criminally investigate or prosecute any alcohol or drug abuse patient.[facility] CenterIn the event this information is protected by the Federal Confidentiality of Alcohol and Drug Abuse Patient Records regulations: The Federal rules restrict any use of the information to criminally investigate or prosecute any alcohol or drug abuse patient.[facility] CenterIn the event this information is protected by the Federal Confidentiality of Alcohol and Drug Abuse Patient Records regulations: The Federal rules restrict any use of the information to criminally investigate or prosecute any alcohol or drug abuse patient.[facility] CenterIn the event this information is protected by the Federal Confidentiality of Alcohol and Drug Abuse Patient Records regulations: The Federal rules restrict any use of the information to criminally investigate or prosecute any alcohol or drug abuse patient.[facility] CenterIn the event this information is protected by the Federal Confidentiality of Alcohol and Drug Abuse Patient Records regulations: The Federal rules restrict any use of the information to criminally investigate or prosecute any alcohol or drug abuse patient.[facility] CenterIn the event this information is protected by the Federal Confidentiality of Alcohol and Drug Abuse Patient Records regulations: The Federal rules restrict any use of the information to criminally investigate or prosecute any alcohol or drug abuse patient.[facility] CenterIn the event this information is protected by the Federal Confidentiality of Alcohol and Drug Abuse Patient Records regulations: The Federal rules restrict any use of the information to criminally investigate or prosecute any alcohol or drug abuse patient.[facility] CenterIn the event this information is protected by the Federal Confidentiality of Alcohol and Drug Abuse Patient Records regulations: The Federal rules restrict any use of the information to criminally investigate or prosecute any alcohol or drug abuse patient.[facility] CenterIn the event this information is protected by the Federal Confidentiality of Alcohol and Drug Abuse Patient Records regulations: The Federal rules restrict any use of the information to criminally investigate or prosecute any alcohol or drug abuse patient.[facility] CenterIn the event this information is protected by the Federal Confidentiality of Alcohol and Drug Abuse Patient Records regulations: The Federal rules restrict any use of the information to criminally investigate or prosecute any alcohol or drug abuse patient.[facility] CenterIn the event this information is protected by the Federal Confidentiality of Alcohol and Drug Abuse Patient Records regulations: The Federal rules restrict any use of the information to criminally investigate or prosecute any alcohol or drug abuse patient.[facility] CenterIn the event this information is protected by the Federal Confidentiality of Alcohol and Drug Abuse Patient Records regulations: The Federal rules restrict any use of the information to criminally investigate or prosecute any alcohol or drug abuse patient.[facility] CenterIn the event this information is protected by the Federal Confidentiality of Alcohol and Drug Abuse Patient Records regulations: The Federal rules restrict any use of the information to criminally investigate or prosecute any alcohol or drug abuse patient.[facility] CenterIn the event this information is protected by the Federal Confidentiality of Alcohol and Drug Abuse Patient Records regulations: The Federal rules restrict any use of the information to criminally investigate or prosecute any alcohol or drug abuse patient.[facility] CenterIn the event this information is protected by the Federal Confidentiality of Alcohol and Drug Abuse Patient Records regulations: The Federal rules restrict any use of the information to criminally investigate or prosecute any alcohol or drug abuse patient.[facility] CenterIn the event this information is protected by the Federal Confidentiality of Alcohol and Drug Abuse Patient Records regulations: The Federal rules restrict any use of the information to criminally investigate or prosecute any alcohol or drug abuse patient.[facility] CenterIn the event this information is protected by the Federal Confidentiality of Alcohol and Drug Abuse Patient Records regulations: The Federal rules restrict any use of the information to criminally investigate or prosecute any alcohol or drug abuse patient.[facility] CenterIn the event this information is protected by the Federal Confidentiality of Alcohol and Drug Abuse Patient Records regulations: The Federal rules restrict any use of the information to criminally investigate or prosecute any alcohol or drug abuse patient.[facility] CenterIn the event this information is protected by the Federal Confidentiality of Alcohol and Drug Abuse Patient Records regulations: The Federal rules restrict any use of the information to criminally investigate or prosecute any alcohol or drug abuse patient.[facility] CenterIn the event this information is protected by the Federal Confidentiality of Alcohol and Drug Abuse Patient Records regulations: The Federal rules restrict any use of the information to criminally investigate or prosecute any alcohol or drug abuse patient.[facility] CenterIn the event this information is protected by the Federal Confidentiality of Alcohol and Drug Abuse Patient Records regulations: The Federal rules restrict any use of the information to criminally investigate or prosecute any alcohol or drug abuse patient.[facility] CenterIn the event this information is protected by the Federal Confidentiality of Alcohol and Drug Abuse Patient Records regulations: The Federal rules restrict any use of the information to criminally investigate or prosecute any alcohol or drug abuse patient.[facility] CenterIn the event this information is protected by the Federal Confidentiality of Alcohol and Drug Abuse Patient Records regulations: The Federal rules restrict any use of the information to criminally investigate or prosecute any alcohol or drug abuse patient.[facility] CenterIn the event this information is protected by the Federal Confidentiality of Alcohol and Drug Abuse Patient Records regulations: The Federal rules restrict any use of the information to criminally investigate or prosecute any alcohol or drug abuse patient.[facility] CenterIn the event this information is protected by the Federal Confidentiality of Alcohol and Drug Abuse Patient Records regulations: The Federal rules restrict any use of the information to criminally investigate or prosecute any alcohol or drug abuse patient.[facility] CenterIn the event this information is protected by the Federal Confidentiality of Alcohol and Drug Abuse Patient Records regulations: The Federal rules restrict any use of the information to criminally investigate or prosecute any alcohol or drug abuse patient.[facility] CenterIn the event this information is protected by the Federal Confidentiality of Alcohol and Drug Abuse Patient Records regulations: The Federal rules restrict any use of the information to criminally investigate or prosecute any alcohol or drug abuse patient.[facility] CenterIn the event this information is protected by the Federal Confidentiality of Alcohol and Drug Abuse Patient Records regulations: The Federal rules restrict any use of the information to criminally investigate or prosecute any alcohol or drug abuse patient.[facility] CenterIn the event this information is protected by the Federal Confidentiality of Alcohol and Drug Abuse Patient Records regulations: The Federal rules restrict any use of the information to criminally investigate or prosecute any alcohol or drug abuse patient.[facility] CenterIn the event this information is protected by the Federal Confidentiality of Alcohol and Drug Abuse Patient Records regulations: The Federal rules restrict any use of the information to criminally investigate or prosecute any alcohol or drug abuse patient.[facility] CenterIn the event this information is protected by the Federal Confidentiality of Alcohol and Drug Abuse Patient Records regulations: The Federal rules restrict any use of the information to criminally investigate or prosecute any alcohol or drug abuse patient.[facility] CenterIn the event this information is protected by the Federal Confidentiality of Alcohol and Drug Abuse Patient Records regulations: The Federal rules restrict any use of the information to criminally investigate or prosecute any alcohol or drug abuse patient.[facility] CenterIn the event this information is protected by the Federal Confidentiality of Alcohol and Drug Abuse Patient Records regulations: The Federal rules restrict any use of the information to criminally investigate or prosecute any alcohol or drug abuse patient.[facility] CenterIn the event this information is protected by the Federal Confidentiality of Alcohol and Drug Abuse Patient Records regulations: The Federal rules restrict any use of the information to criminally investigate or prosecute any alcohol or drug abuse patient.[facility] CenterIn the event this information is protected by the Federal Confidentiality of Alcohol and Drug Abuse Patient Records regulations: The Federal rules restrict any use of the information to criminally investigate or prosecute any alcohol or drug abuse patient.[facility] CenterIn the event this information is protected by the Federal Confidentiality of Alcohol and Drug Abuse Patient Records regulations: The Federal rules restrict any use of the information to criminally investigate or prosecute any alcohol or drug abuse patient.[facility] CenterIn the event this information is protected by the Federal Confidentiality of Alcohol and Drug Abuse Patient Records regulations: The Federal rules restrict any use of the information to criminally investigate or prosecute any alcohol or drug abuse patient.[facility] CenterIn the event this information is protected by the Federal Confidentiality of Alcohol and Drug Abuse Patient Records regulations: The Federal rules restrict any use of the information to criminally investigate or prosecute any alcohol or drug abuse patient.[facility] Reason for Visit (unrecogniz ed section and content) Reason Comments Radio Main J1 Specialty Diagnoses / Procedures Referred By Maria D rajan Referred To Contact ADMITTING Diagnoses Nonrheumatic aortic valve stenosis Pre-operative cardiovascular examination Aortic valve disorder Hypertrophic cardiomyopathy (HCC) Procedures RPLCMT PROST AORTIC VALVE OPEN XCP HOMOGRF/STENT AVR W/ CARDIOPULMONARY BYPASS W/ PROSTHETIC OTHER THAN HOMOGRAFT/ STENTLESS TISSUE VALVE [facility] [address] [id number] Referral ID Status Reason Start Date Expiration Date Visits Re quested Visits Authorized [id number] 1 1 Reason Comments Orders Reason Comments Core Checker - Other Care Continuum Advisor Assessment Reason Comments Spirometry Specialty Diagnoses / Procedures Referred By Maria D rajan Referred To Contact [facility] Diagnoses Nonrheumatic aortic valve stenosis Pre-operative cardiovascular examination Aortic valve disorder Hypertrophic cardiomyopathy (HCC) Procedures LUNG DIFFUSION CAPACITY (DLCO) DIFFUSING CAPACITY Usha Navarro MD [address] [place] [address] [facility] [place] [address] [place] [id number] Referral ID Status Reason Start Date Expiration Date V isits Requested Visits Authorized [id number] Closed Auto-Generate d Referral 06/26/2023 07/25/2024 1 1 Specialty Diagnoses / Procedures Referred By Contac t Referred To Contact [facility] Diagnoses Nonrheumatic aortic valve stenosis Pre-operative cardiovascular examination Aortic valve disorder Hypertrophic cardiomyopathy (HCC) Procedures SPIROMETRY BASELINE ONLY SPMTRY W/VC EXPIRATORY PANCHITO W/WO MXML VOL VNTJ Usha Navarro MD [address] [place] [id number] [facility] [place] [address] [place] [id number] Referral ID Status Reason Start Date Expiration Date V isits Requested Visits Authorized [id number] Closed Auto-Generate d Referral 06/26/2023 07/25/2024 1 1 Specialty Diagnoses / Procedures Referred By Contac t Referred To Contact Cardiology Diagnoses Nonrheumatic aortic valve stenosis Pre-operative cardiovascular examination Aortic valve disorder Hypertrophic cardiomyopathy (HCC) Procedures CONSULT TO CARDIOLOGY OFFICE/OUTPATIENT [facility] 60-74 MINUTES Usha Navarro MD [address] [place] [address] Referral ID Status Reason Start Date Expiration Date Visits Requested Visits Authorized [id number] Pending Review PCP Requested Referral 06/25/2024 1 1 Reason Comments Radiology MRI Specialty Diagnoses / Procedures Referred By Contac t Referred To Contact MR IMAGING Diagnoses Nonrheumatic aortic valve stenosis Pre-operative cardiovascular examination Aortic valve disorder Hypertrophic cardiomyopathy (HCC) Procedures MRI CARDIAC VELOCITY FLOW MAP CARDIAC MRI FOR VELOCITY FLOW MAPPING Usha Navarro MD [address] [place] [address] Mr Imaging [facility] Referral ID Status Reason Start Date Expiration Date V isits Requested Visits Authorized [id number] Closed Auto-Generate d Referral 06/26/2023 07/25/2024 1 1 Specialty Diagnoses / Procedures Referred By Contac t Referred To Contact Cardiac Surg Diagnoses Nonrheumatic aortic valve stenosis Pre-operative cardiovascular examination Aortic valve disorder Hypertrophic cardiomyopathy (HCC) Procedures CARDIOTHORACIC PREOP EVALUATION OFFICE/OUTPATIENT NEW HIGH MDM 60-74 MINUTES Usha Navarro MD [address] [place] [id number] Referral ID Status Reason Start Date Expiration Date Visits Requested Visits Authorized [id number] Pending Review PCP Requested Referral 3 06/25/2024 1 1 Reason Comments Pre-Op Exam Reason Comments Patient Education Reason Comments Post-Op Visit Reason Comments Follow Up Phone Call RC follow up call a ll clear. Reason Comments Follow Up Reason Comments Cardiac Rehab Reason Comments Cardiac Rehab 30 day assessment Reason Comments Cardiac Rehab Discharge Reason Comments Radiology CT Specialty Diagnoses / Procedures Referred By Contac t Referred To Contact CT IMAGING Diagnoses Vasculopathy Adverse effect of treatment, initial encounter Procedures CTA CHEST (GATED) W IVCON CT ANGIOGRAPHY CHEST W/CONTRAST/NONCONTRAST Deena Francois MD [address] [place] [address] [facility] [address] [id number] Referral ID Status Reason Start Date Expiration Date V isits Requested Visits Authorized [id number] Closed Auto-Generate d Referral 12/18/2023 10/17/2024 1 1 Specialty Diagnoses / Procedures Referred By Contac t Referred To Contact Procedures CARDIOVASCULAR MEDICINE OP FOLLOW UP APPT ORDER Deena Francois MD [address] [place] [address] Referral ID Status Reason Start Date Expiration Date Visits Requested Visits Authorized [id number] Ref Not Required PCP Requested Referral 12/18/2023 09/17/2024 1 1 Reason Onset Date Comments Refill Request 03/18/2024 Reason Comments Refill Request Specialty Diagnoses / Procedures Referred By Contac t Referred [facility] Procedures CARDIOVASCULAR MEDICINE OP FOLLOW UP APPT ORDER Deena Francois MD [address] [place] [address] [facility] [place] [address] [place] [id number] Referral ID Status Reason Start Date Expiration Date Visits Requested Visits Authorized [id number] Ref Not Required PCP Requested Referral 02/08/2024 01/07/2025 1 1 Reason Comments Patient Update Reason Comments Reminder Call Reason Comments fax confirmation Reason Onset Date Comments Refill Request 04/23/2024 Specialty Diagnoses / Procedures Referred By Contac t Referred To Contact Diagnoses HOCM (hypertrophic obstructive cardiomyopathy) (HCC) NSVT (nonsustained ventricular tachycardia) (HCC) Procedures CONSULT TO ELECTROPHYSIOLOGY OFFICE/OUTPATIENT [facility] 60 MINUTES Deena Francois MD [address] [place], [place] [id number] Referral ID Status Reason Start Date Expiration Date V isits Requested Visits Authorized [id number] Closed PCP Requested Referral 06/05/2024 06/05/2025 1 1 Specialty Diagnoses / Procedures Referred By Contac t Referred To Contact Diagnoses HOCM (hypertrophic obstructive cardiomyopathy) (HCC) Procedures CONSULT TO MEDICAL GENETICS - CARDIOVASCULAR OFFICE/OUTPATIENT [facility] 60 MINUTES MEDICAL GENETICS COUNSELING EACH 30 MINUTES Deena Francois MD [address] [place] [address] [facility] [place] [address] [place] [address] Referral ID Status Reason Start Date Expiration Date V isits Requested Visits Authorized [id number] Closed PCP Requested Referral Auto-Generated Referral 04/30/2024 04/30/2025 1 1 Care Teams (unrecognized sec tion and content) Cardiovascular Or Nurse Relationship Specialty Start Date End Date Geoff Sainz MD PCP - General Family Medicine 02/16/11 Cardiovascular Or Nurse Relationship Specialty Start Date End Date Geoff Sainz MD PCP - General Family Medicine 02/16/11 Team Status: Active Member Role Status Dates Dr. Geoff Sainz MD Family Provider Active ALEXANDRA Mathew Primary Care Provider Active Team Status: Inactive Member Role Status Dates Dr. Geoff Sainz MD Primary Care Provider, Referring Provider Active Singh GODINEZ, PA Attending Provider Active Team Status: Inactive Member Role Status Dates Dr. Geoff Sainz MD Primary Care Provider, Referring Provider Active Saad GODINEZ, PA Attending Provider Active Team Status: Inactive Member Role Status Dates Singh GODINEZ PA Attending Provider, Referr ing Provider Active Abdiel Mathews , MICA PATCHER-C Primary Care Provider Active Team Status: Inactive Member Role Status Dates Abdiel Mathews , MICA PATCHER-C Primary Care Provider Active Singh GODINEZ PA Attending Provider, Referr ing Provider Active Team Status: Active Member Role Status Dates Abdiel Mathews , MICA PATCHER-C Primary Care Provider Active Dr. Nitesh Jimenez MD Attending Provider, Referring Provider, Other Provider Active Team Status: Inactive Member Role Status Dates Abdiel Mathews , MICA PATCHER-C Primary Care Provider Active Dr. Nitesh Jimenez MD Attending Provider, Referring Pro vider Active Cardiovascular Or Nurse Relationship Specialty Start Date End Date Abdiel Mathews NP [address] [address] PCP - General Family Medicine 07/02/23 Nitesh Jimenez MD [address] [address] Referring Cardiology 06/25/23 Usha Navarro MD [address] [place] [address] Surgeon Cardiac Surg 06/25/23 Cardiovascular Or Nurse Relationship Specialty Start Date End Date Abdiel Mathews NP [address] [address] PCP - General Family Medicine 07/02/23 Nitesh Jimenez MD [address] [address] Referring Cardiology 06/25/23 Usha Navarro MD [address] [place] [address] Surgeon Cardiac Surg 06/25/23 Cardiovascular Or Nurse Relationship Specialty Start Date End Date Abdiel Mathews NP [address] [address] PCP - General Family Medicine 07/02/23 Nitesh Jimenez MD [address] [facility] [address] [place] [address] Referring Cardiology 06/25/23 Usha Navarro MD [address] [place] [address] Surgeon Cardiac Surg 06/25/23 Cardiovascular Or Nurse Relationship Specialty Start Date End Date Abdiel Mathews NP [address] [place] [address] PCP - General Family Medicine 07/02/23 Nitesh Jimenez MD [address] [address] Referring Cardiology 06/25/23 Usha Navarro MD [address] [place] [address] Surgeon Cardiac Surg 06/25/23 Deena Francois MD [address] [place] [address] Primary Staff Physician Cardiology 07/24/23 Cardiovascular Or Nurse Relationship Specialty Start Date End Date Abdiel Mathews NP [address] [place] [address] PCP - General Family Medicine 07/02/23 Nitesh Jimenez MD [address] 17[address] Referring Cardiology 06/25/23 Usha Navarro MD [address] [place] [address] Surgeon Cardiac Surg 06/25/23 Deena Francois MD [address] [place] [address] Primary Staff Physician Cardiology 07/24/23 Cardiovascular Or Nurse Relationship Specialty Start Date End Date Abdiel Mathews NP [address] [place] [address] PCP - General Family Medicine 07/02/23 Nitesh Jimenez MD [address] [address] Referring Cardiology 06/25/23 Usha Navarro MD [address] [place] [address] Surgeon Cardiac Surg 06/25/23 Deena Francois MD [address] [place] [address] Primary Staff Physician Cardiology 07/24/23 Cardiovascular Or Nurse Relationship Specialty Start Date End Date Abdiel Mathews NP [facility] [place], [place] [id number] PCP - General Family Medicine 07/02/23 Nitesh Jimenez MD [address] [facility] [address] [place] [address] Referring Cardiology 06/25/23 Usha Navarro MD [address] [place] [address] Surgeon Cardiac Surg 06/25/23 Deena Francois MD [address] [place], [place] [id number] Primary Staff Physician Cardiology 07/24/23 Cardiovascular Or Nurse Relationship Specialty Start Date End Date Abdiel Mathews NP [address] [place] [address] PCP - General Family Medicine 07/02/23 Nitesh Jimenez MD 1761 [facility] [address] [place] [address] Referring Cardiology 06/25/23 Usha Navarro MD [address] [place] [address] Surgeon Cardiac Surg 06/25/23 Deena Francois MD [address] [place] [address] Primary Staff Physician Cardiology 07/24/23 Cardiovascular Or Nurse Relationship Specialty Start Date End Date Abdiel Mathews NP [address] [place] [address] PCP - General Family Medicine 07/02/23 Nitesh Jimenez MD [address] [facility] [address] [place] [address] Referring Cardiology 06/25/23 Usha Navarro MD [address] [place] [address] Surgeon Cardiac Surg 06/25/23 Deena Francois MD [facility] [place] [address] Primary Staff Physician Cardiology 07/24/23 Cardiovascular Or Nurse Relationship Specialty Start Date End Date Abdiel Mathews NP [address] [place] [address] PCP - General Family Medicine 07/02/23 Nitesh Jimenez MD [address] [address] Referring Cardiology 06/25/23 Usha Navarro MD [address] [place] [address] Surgeon Cardiac Surg 06/25/23 Deena Francois MD [address] [place], [place] [phone] Primary Staff Physician Cardiology 07/24/23 Cardiovascular Or Nurse Relationship Specialty Start Date End Date Abdiel Mathews NP [facility] [place] [address] PCP - General Family Medicine 07/02/23 Nitesh Jimenez MD [address] [address] Referring Cardiology 06/25/23 Usha Navarro MD [address] [place] [address] Surgeon Cardiac Surg 06/25/23 Deena Francois MD [address] [place] [address] Primary Staff Physician Cardiology 07/24/23 Cardiovascular Or Nurse Relationship Specialty Start Date End Date Abdiel Mathews NP [address] [place] [address] PCP - General Family Medicine 07/02/23 Nitesh Jimenez MD [address] [address] Referring Cardiology 06/25/23 Usha Navarro MD [address] [place] [address] Surgeon Cardiac Surg 06/25/23 Deena Francois MD [address] [place], [place] [phone] Primary Staff Physician Cardiology 07/24/23 Cardiovascular Or Nurse Relationship Specialty Start Date End Date Abdiel Mathews NP [address] [place] [address] PCP - General Family Medicine 07/02/23 Nitesh Jimenez MD [address] [address] Referring Cardiology 06/25/23 Usha Navarro MD [address] [place] [address] Surgeon Cardiac Surg 06/25/23 Deena Francois MD [address] [place] [phone] Primary Staff Physician Cardiology 07/24/23 Cardiovascular Or Nurse Relationship Specialty Start Date End Date Abdiel Mathews NP [address] [place] [address] 17941 PCP - General Family Medicine 07/02/23 [place] [address] [place] [address] 421601 Referring Cardiology 06/25/23 Usha Navarro MD [address] [place] [phone] Surgeon Cardiac Surg 06/25/23 Deena Francois MD [address] [place] [phone] Primary Staff Physician Cardiology 07/24/23 Cardiovascular Or Nurse Relationship Specialty Start Date End Date Abdiel Mathews NP [facility] [place], [place] 6[address]11 PCP - General Family Medicine 07/02/23 [facility]h Jimenez MD [facility] [address] [place] [address] Referring Cardiology 06/25/23 Usha Navarro MD [address] [place] [address] Surgeon Cardiac Surg 06/25/23 Deena Francois MD [address] [place], [place] [phone] Primary Staff Physician Cardiology 07/24/23 Cardiovascular Or Nurse Relationship Specialty Start Date End Date Abdiel Mathews NP [facility] [place] [address] PCP - General Family Medicine 07/02/23 Nitesh Jimenez MD [address] [facility] [address] [place] [address] Referring Cardiology 06/25/23 Usha Navarro MD [address] [place], [place] 5260395 Surgeon Cardiac Surg 06/25/23 Deena Francois MD [address] [place] [address] Primary Staff Physician Cardiology 07/24/23 Cardiovascular Or Nurse Relationship Specialty Start Date End Date Abdiel Mathews NP [address] [place], [place] 411691 PCP - General Family Medicine 07/02/23 Nitesh Jimenez MD [address] [facility] [address] [place] [address] Referring Cardiology 06/25/23 Usha Navarro MD [address] [place] [id number] Surgeon Cardiac Surg 06/25/23 Deena Francois MD [address] [place] [phone] Primary Staff Physician Cardiology 07/24/23 Cardiovascular Or Nurse Relationship Specialty Start Date End Date Abdiel Mathews NP [address] [place] [address] PCP - General Family Medicine 07/02/23 Nitesh Jimenez MD [address] 817441 Referring Cardiology 06/25/23 Usha Navarro MD [address] [place], [place] [address] Surgeon Cardiac Surg 06/25/23 Deena Francois MD [facility] [place] [phone] Primary Staff Physician Cardiology 07/24/23 Cardiovascular Or Nurse Relationship Specialty Start Date End Date Abdiel Mathews NP [facility] [place] [address] PCP - General Family Medicine 07/02/23 Nitesh Jimenez MD [address] [address] Referring Cardiology 06/25/23 Usha Navarro MD [address] [place] [address] Surgeon Cardiac Surg 06/25/23 Deena Francois MD [address] [place] [address] Primary Staff Physician Cardiology 07/24/23 Cardiovascular Or Nurse Relationship Specialty Start Date End Date Abdiel Mathews NP [address] [place] [id number] PCP - General Family Medicine 07/02/23 Nitesh Jimenez MD [address] [place] [address] 546731 Referring Cardiology 06/25/23 Usha Navarro MD [facility] [place] [address] Surgeon Cardiac Surg 06/25/23 Deena Francois MD [facility] [place] [address] Primary Staff Physician Cardiology 07/24/23 Cardiovascular Or Nurse Relationship Specialty Start Date End Date Abdiel Mathews NP [facility] [place] [address] PCP - General Family Medicine 07/02/23 Nitehs Jimenez MD [address] [address] Referring Cardiology 06/25/23 Usha Navarro MD [address] [place] [phone] Surgeon Cardiac Surg 06/25/23 Deena Francois MD [address] [place] [address] Primary Staff Physician Cardiology 07/24/23 Cardiovascular Or Nurse Relationship Specialty Start Date End Date Abdiel Mathews NP [address] [place] [address] 807481 PCP - General Family Medicine 07/02/23 Nitesh Jimenez MD [address] 202371 Referring Cardiology 06/25/23 Usha Navarro MD [facility] [place] [phone] Surgeon Cardiac Surg 06/25/23 Deena Francois MD [facility] [place] [address] Primary Staff Physician Cardiology 07/24/23 Cardiovascular Or Nurse Relationship Specialty Start Date End Date Abdiel Mathews NP [address] [place] [address] 709861 PCP - General Family Medicine 07/02/23 Nitesh Jimenez MD [address] [phone] Referring Cardiology 06/25/23 Usha Navarro MD [address] [place] [address] Surgeon Cardiac Surg 06/25/23 Deena Francois MD [address] [place] [address] Primary Staff Physician Cardiology 07/24/23 Cardiovascular Or Nurse Relationship Specialty Start Date End Date Abdiel Mathews NP [address]77 [facility] [place] [address] PCP - General Family Medicine 07/02/23 Nitesh Jimenez MD [address] [phone] Referring Cardiology 06/25/23 Usha Navarro MD [address] [place] [address] Surgeon Cardiac Surg 06/25/23 Deena Francois MD [address] [place] [address] Primary Staff Physician Cardiology 07/24/23 Cardiovascular Or Nurse Relationship Specialty Start Date End Date Abdiel Mathews NP [facility] [place] [address] PCP - General Family Medicine 07/02/23 Nitesh Jimenez MD [address] [facility] [facility] [address] [place], [place] 213211 Referring Cardiology 06/25/23 Usha Navarro MD [address] [place] [address] Surgeon Cardiac Surg 06/25/23 Deena Francois MD [address] [place], [place] [phone] Primary Staff Physician Cardiology 07/24/23 Cardiovascular Or Nurse Relationship Specialty Start Date End Date Abdiel Mathews NP 3477 [facility] [place], [place] 396691 PCP - General Family Medicine 07/02/23 Nitesh Jimenez MD [address] 253371 Referring Cardiology 06/25/23 Usha Navarro MD [address] [place] [address] Surgeon Cardiac Surg 06/25/23 eDena Francois MD [address] [place] [address] Primary Staff Physician Cardiology 07/24/23 Cardiovascular Or Nurse Relationship Specialty Start Date End Date Abdiel Mathews NP [address] [place], [place] 937701 PCP - General Family Medicine 07/02/23 Nitesh Jimenez MD [address] [address] Referring Cardiology 06/25/23 Usha Navarro MD [address] [place] [address] Surgeon Cardiac Surg 06/25/23 Deena Francois MD [address] [place], [place] [phone] Primary Staff Physician Cardiology 07/24/23 Cardiovascular Or Nurse Relationship Specialty Start Date End Date Abdiel Mathews NP [address]77 [facility] [place] [address] PCP - General Family Medicine 07/02/23 Nitesh Jimenez MD [address] [address] Referring Cardiology 06/25/23 Usha Navarro MD [address] [place] [address] Surgeon Cardiac Surg 06/25/23 Deena Francois MD [facility] [place] [phone] Primary Staff Physician Cardiology 07/24/23 Cardiovascular Or Nurse Relationship Specialty Start Date End Date Abdiel Mathews NP [address]77 [facility] [place] [address] PCP - General Family Medicine 07/02/23 Nitesh Jimenez MD [address] [address] Referring Cardiology 06/25/23 Usha Navarro MD [address] [place] [address] Surgeon Cardiac Surg 06/25/23 Deena Francois MD [address] [place] [address] Primary Staff Physician Cardiology 07/24/23 Cardiovascular Or Nurse Relationship Specialty Start Date End Date Abdiel Mathews NP 3477 [facility] [place] [address] PCP - General Family Medicine 07/02/23 Nitesh Jimenez MD [address] [address] Referring Cardiology 06/25/23 Usha Navarro MD [address] [place] [address] Surgeon Cardiac Surg 06/25/23 Deena Francois MD [address] [place] [address] Primary Staff Physician Cardiology 07/24/23 Cardiovascular Or Nurse Relationship Specialty Start Date End Date Abdiel Mathews NP [facility] [place] [address] PCP - General Family Medicine 07/02/23 Nitesh Jimenez MD [address] [address] Referring Cardiology 06/25/23 Usha Navarro MD [address] [place] [address] Surgeon Cardiac Surg 06/25/23 Deena Francois MD [address] [place] [address] Primary Staff Physician Cardiology 07/24/23 Cardiovascular Or Nurse Relationship Specialty Start Date End Date Abdiel Mathews NP 3477 [facility] [place] [address] PCP - General Family Medicine 07/02/23 Nitesh Jimenez MD 1761 [facility] [address] [place] [address] Referring Cardiology 06/25/23 Usha Navarro MD [address] [place] [address] Surgeon Cardiac Surg 06/25/23 Deena Francois MD [address] [place] [address] Primary Staff Physician Cardiology 07/24/23 Cardiovascular Or Nurse Relationship Specialty Start Date End Date Abdiel Mathews NP 3477 [facility] [place] [address] PCP - General Family Medicine 07/02/23 Nitesh Jimenez MD [address] [address] Referring Cardiology 06/25/23 Usha Navarro MD [address] [place] [address] Surgeon Cardiac Surg 06/25/23 Deena Francois MD [address] [place] [address] Primary Staff Physician Cardiology 07/24/23 Cardiovascular Or Nurse Relationship Specialty Start Date End Date Abdiel Mathews NP 3477 [facility] [place] [address] PCP - General Family Medicine 07/02/23 Nitesh Jimenez MD 1761 [facility] [address] [place] [address] Referring Cardiology 06/25/23 Usha Navarro MD [address] [place] [address] Surgeon Cardiac Surg 06/25/23 Deena Francois MD [address] [place] [address] Primary Staff Physician Cardiology 07/24/23 Cardiovascular Or Nurse Relationship Specialty Start Date End Date Abdiel Mathews NP 3477 [facility] [place] [address] PCP - General Family Medicine 07/02/23 Nitesh Jimenez MD 1761 [facility] [address] [place] [address] Referring Cardiology 06/25/23 Usha Navarro MD [address] [place] [address] Surgeon Cardiac Surg 06/25/23 Deena Francois MD [address] [place] [address] Primary Staff Physician Cardiology 07/24/23 Cardiovascular Or Nurse Relationship Specialty Start Date End Date Abdiel Mathews NP [address] [place] [address] PCP - General Family Medicine 07/02/23 Nitesh Jimenez MD 1761 [facility] [address] [place] [address] Referring Cardiology 06/25/23 Usha Navarro MD [address] [place] [address] Surgeon Cardiac Surg 06/25/23 Deena Francois MD [facility] [place] [address] Primary Staff Physician Cardiology 07/24/23 Cardiovascular Or Nurse Relationship Specialty Start Date End Date Abdiel Mathews NP [address] [place] [address] PCP - General Family Medicine 07/02/23 Nitesh Jimenez MD [address] [address] Referring Cardiology 06/25/23 Usha Navarro MD [address] [place] [address] Surgeon Cardiac Surg 06/25/23 Deena Francois MD [address] [place] [address] Primary Staff Physician Cardiology 07/24/23 Cardiovascular Or Nurse Relationship Specialty Start Date End Date Abdiel Mathews NP [facility] [place] [address] PCP - General Family Medicine 07/02/23 Nitesh Jimenez MD [address] [address] Referring Cardiology 06/25/23 Usha Navarro MD [address] [place] [phone] Surgeon Cardiac Surg 06/25/23 Deena Francois MD [facility] [place] [phone] Primary Staff Physician Cardiology 07/24/23 Cardiovascular Or Nurse Relationship Specialty Start Date End Date Abdiel Mathews NP [address] [place] [address] PCP - General Family Medicine 07/02/23 Nitesh Jimenez MD [address] [address] Referring Cardiology 06/25/23 Usha Navarro MD [address] [place] [phone] Surgeon Cardiac Surg 06/25/23 Deena Francois MD [address] [place] [address] Primary Staff Physician Cardiology 07/24/23 Cardiovascular Or Nurse Relationship Specialty Start Date End Date Abdiel Mathews NP [address] [place] [address]37 PCP - General Family Medicine 07/02/23 Nitesh Jimenez MD [address] [address] Referring Cardiology 06/25/23 Usha Navarro MD [address] [place] [address] Surgeon Cardiac Surg 06/25/23 Deena Francois MD [address] [place] [address] Primary Staff Physician Cardiology 07/24/23 Cardiovascular Or Nurse Relationship Specialty Start Date End Date Abdiel Mathews NP [address] [place] [address] PCP - General Family Medicine 07/02/23 Nitesh Jimenez MD [address] [address] Referring Cardiology 06/25/23 Usha Navarro MD [address] [place] [address] Surgeon Cardiac Surg 06/25/23 Deena Francois MD [address] [place] [address] Primary Staff Physician Cardiology 07/24/23 Cardiovascular Or Nurse Relationship Specialty Start Date End Date Abdiel Mathews NP [facility] [place] [address] PCP - General Family Medicine 07/02/23 Nitesh Jimenez MD [address] [facility] [facility] [address] [place] [address] Referring Cardiology 06/25/23 Usha Navarro MD [address] [place] [address] Surgeon Cardiac Surg 06/25/23 Deena Francois MD [address] [place] [address] Primary Staff Physician Cardiology 07/24/23 Cardiovascular Or Nurse Relationship Specialty Start Date End Date Abdiel Mathews NP [address] [place] [address] PCP - General Family Medicine 07/02/23 Nitesh Jimenez MD [address] [facility] [address] [place] [address] Referring Cardiology 06/25/23 Usha Navarro MD [address] [place] [address] Surgeon Cardiac Surg 06/25/23 Deena Francois MD [address] [place] [address] Primary Staff Physician Cardiology 07/24/23 Cardiovascular Or Nurse Relationship Specialty Start Date End Date Abdiel Mathews NP [facility] [place] [address] PCP - General Family Medicine 07/02/23 Nitesh Jimenez MD [address] [facility] [address] [place] [address] Referring Cardiology 06/25/23 Usha Navarro MD [address] [place] [address] Surgeon Cardiac Surg 06/25/23 Deena Francois MD [address] [place] [address] Primary Staff Physician Cardiology 07/24/23 Cardiovascular Or Nurse Relationship Specialty Start Date End Date Abdiel Mathews NP [address] [place] [address] 49346 PCP - General Family Medicine 07/02/23 Nitesh Jimenez MD [address] [address] Referring Cardiology 06/25/23 Usha Navarro MD [address] [place] [address] Surgeon Cardiac Surg 06/25/23 Deena Francois MD [address] [place] [address] Primary Staff Physician Cardiology 07/24/23 Cardiovascular Or Nurse Relationship Specialty Start Date End Date Abdiel Mathews NP [address] [place] [address]338 PCP - General Family Medicine 07/02/23 Nitesh Jimenez MD [address] [facility] [address] [place] [address] Referring Cardiology 06/25/23 Usha Navarro MD [address] [place] [phone] Surgeon Cardiac Surg 06/25/23 Deena Francois MD [address] [place] [phone] Primary Staff Physician Cardiology 07/24/23 Cardiovascular Or Nurse Relationship Specialty Start Date End Date Abdiel Mathews NP [address] [place] [address] PCP - General Family Medicine 07/02/23 Nitesh Jimenez MD [address] 382091 Referring Cardiology 06/25/23 Usha Navarro MD [address] [place] [phone] Surgeon Cardiac Surg 06/25/23 Deena Francois MD [address] [place] [phone] Primary Staff Physician Cardiology 07/24/23 Cardiovascular Or Nurse Relationship Specialty Start Date End Date Abdiel Mathews NP [address] [place] [address] 13427 PCP - General Family Medicine 07/02/23 Nitesh Jimenez MD [address] 016194 Referring Cardiology 06/25/23 Usha Navarro MD [address] [place] [address] Surgeon Cardiac Surg 06/25/23 Deena Francois MD [facility] [place] [address] Primary Staff Physician Cardiology 07/24/23 Cardiovascular Or Nurse Relationship Specialty Start Date End Date Abdiel Mathews NP [address] [place] [address] PCP - General Family Medicine 07/02/23 Nitesh Jimenez MD [address] [address] Referring Cardiology 06/25/23 Usha Navarro MD [address] [place] [address] Surgeon Cardiac Surg 06/25/23 Deena Francois MD [address] [place] [address] Primary Staff Physician Cardiology 07/24/23 Cardiovascular Or Nurse Relationship Specialty Start Date End Date Abdiel Mathews NP [address] [place] [address] [phone] PCP - General Family Medicine 07/02/23 Nitesh Jimenez MD [address] [facility] [address] [place] [address] Referring Cardiology 06/25/23 Usha Navarro MD [address] [place] [address] Surgeon Cardiac Surg 06/25/23 Deena Francois MD [address] [place], [place] [id number] Primary Staff Physician Cardiology 07/24/23 Cardiovascular Or Nurse Relationship Specialty Start Date End Date Abdiel Mathews NP [address]77 [place] [address] PCP - General Family Medicine 07/02/23 Nitesh Jimenez MD [address] 638591 Referring Cardiology 06/25/23 Usha Navarro MD [address]504 [place], [place] 3685495 Surgeon Cardiac Surg 06/25/23 Deena Francois MD [address] [place] [address] Primary Staff Physician Cardiology 07/24/23 Cardiovascular Or Nurse Relationship Specialty Start Date End Date Abdiel Mathews NP [facility] [place] 299081 PCP - General Family Medicine 07/02/23 Nitesh Jimenez MD 176 [facility] [address] [place], [place] 424811 Referring Cardiology 06/25/23 Usha Navarro MD [address] [place] [phone] Surgeon Cardiac Surg 06/25/23 Deena Francois MD [address] [place] [phone] Primary Staff Physician Cardiology 07/24/23 Cardiovascular Or Nurse Relationship Specialty Start Date End Date Abdiel Mathews NP [address]77 [place] [address] PCP - General Family Medicine 07/02/23 Nitesh Jimenez MD 1761 [facility] [address] [place], [place] [address] Referring Cardiology 06/25/23 Usha Navarro MD [address] [place] [phone] Surgeon Cardiac Surg 06/25/23 Deena Francois MD [address] [place] [phone] Primary Staff Physician Cardiology 07/24/23 Cardiovascular Or Nurse Relationship Specialty Start Date End Date Abdiel Mathews NP [address]77 [place] [address] PCP - General Family Medicine 07/02/23 Nitesh Jimenez MD 1761 [facility] [address] [place] [address] Referring Cardiology 06/25/23 Usha Navarro MD [address] [place] [address] Surgeon Cardiac Surg 06/25/23 Deena Francois MD [address] [place] [phone] Primary Staff Physician Cardiology 07/24/23 Cardiovascular Or Nurse Relationship Specialty Start Date End Date Abdiel Mathews NP [address]77 [place] [address] PCP - General Family Medicine 07/02/23 Nitesh Jimenez MD [address] [place] [address] [phone] Referring Cardiology 06/25/23 Usha Navarro MD [address] [place], [place] [phone] Surgeon Cardiac Surg 06/25/23 Deena Francois MD [facility] [place] [phone] Primary Staff Physician Cardiology 07/24/23 Cardiovascular Or Nurse Relationship Specialty Start Date End Date Abdiel Mathews NP [facility] [place] [address] PCP - General Family Medicine 07/02/23 Nitesh Jimenez MD [address] [address] [id number] Referring Cardiology 06/25/23 Usha Navarro MD [address] [place] [address] Surgeon Cardiac Surg 06/25/23 Deena Francois MD [address] [place] [id number] Primary Staff Physician Cardiology 07/24/23 Team Status: Inactive Member Role Status Dates ALEXANDRA Mathew Primary Care Provider Active Start: September 07, 2024 End: September 07, 2024 ALEXANDRA Mathew Attending Provider Active St art: September 07, 2024 End: September 07, 2024 ALEXANDRA Mathew Referring Provider Active St art: September 07, 2024 End: September 07, 2024 Team Status: Inactive Member Role Status Dates ALEXANDRA Mathew Primary Care Provider Active Start: December 10, 2024 End: December 10, 2024 ALEXANDRA Mathew Attending Provider Active St art: December 10, 2024 End: December 10, 2024 FOR RECORDS PERTAINING TO PATIENTS WHO ARE OR HAVE BEEN ENROLLED IN A CHEMICAL DEPENDENCY/SUBSTANCEABUSE PROGRAM, SOME INFORMATION MAY BE OMITTED. This clinical summary was aggregated from multiple sources. Caution should be exercised in using it in the provision of clinical care. This summary normalizes information from multiple sources, and as a consequence, information in this document may materially change the coding, format and clinical context of patient data. In addition, data may be omitted in some cases. CLINICAL DECISIONS SHOULD BE BASED ON THE PRIMARY CLINICAL RECORDS. [facility] [employer] provides no warranty or guarantee of the accuracy or completeness of information in this document.
[2025-03-25 23:12] LABS: Troponin T High Sensitivity 51 ng/L (<=22)
[2025-03-25] MEDS: 0.9% Normal Saline (1000mL) 1,000 ML 999 ML IV (23:13)
[2025-03-25 23:26] VITALS: BP 110/69; PULSE 90; O2SAT 97
[2025-03-25 23:41] LABS: AST(SGOT) 27 U/L (<=37); Alanine Aminotransfer ALT/SGPT 38 U/L (<=46); Albumin, Serum 4.3 g/dL (3.4-4.8); Alkaline Phosphatase 75 U/L (40-129); Bilirubin, Direct 0.74 mg/dL (0.00-0.30); CPK Total, Creatine Kinase 116 U/L (24-195); Globulin 2.9 g/dL (2.2-4.2); Procalcitonin 1.47 ng/mL (<=0.10)
[2025-03-26] VITALS (47 sets, daily range): BP systolic 67–123; BP diastolic 49–102; PULSE 68–160; RESP 10–51; TEMP 36.5–40.7; O2SAT 93–100; BMI 34.2; BMI 33.5; BMI 27.7
--- NOTE | 2025-03-26 | CT_ITS ---
PROCEDURE: CTA CHST, ABD, PEL W AND/OR WO 03/26/2025 REASON FOR EXAM: DYSPNEA WITH PMHX OF AORTIC ANEURYSM REPAIR TECHNIQUE: CTA CHST, ABD, PEL W AND/OR WO coronal and Sagittal reconstruction series were provided. One or more dose reduction techniques were used (e.g., Automated exposure control, adjustment of the mA and/or kV according to patient size, use of iterative reconstruction technique. RADIATION DOSE SUMMARY: CTDlvol: 30 mGy DLP: 1306 mGycm COMPARISON: Chest x-ray 03/25/2025 FINDINGS: Unremarkable base of neck and axilla. Thoracic spine degeneration. Normal esophagus. Normal heart size. LVH. Status post AVR. Status post ascending aortic repair with graft, without complication noted. No thoracic aortic aneurysm, or dissection. Maximum ascending aortic cross-section, 3.9 cm, upper limits of normal. No acute chest wall findings. Central airways are patent. Mild bronchial wall thickening. Under aerated lung bases. No consolidation, effusion, or pneumothorax. Diffuse hepatic steatosis. Unremarkable gallbladder, pancreas, spleen, adrenal glands and kidneys. No hydronephrosis. Normal bladder. Mildly enlarged prostate. No retroperitoneal or pelvic adenopathy. No free air. Nondistended bowel. Normal appendix. Diverticulosis. No acute large bowel findings. Left inguinal fat hernia. Lumbar spine degeneration. No acute abdominal wall findings. The aortoiliac system, and branch vessels are unremarkable. No high-grade stenosis, dissection, or aneurysm. CT/CTA Chst, Abd, Pel W and/or WO IMPRESSION: Status post AVR. Status post ascending aortic repair with graft. No thoracic aortic aneurysm or dissection. No acute chest, abdomen, or pelvic pathology. Reading Location: [place] [id number]
[2025-03-26 00:02] LABS: Anion Gap 18 (5-15); BUN 21 mg/dL (4-19); BUN/Creat Ratio 13.3 RATIO (10-20); Calcium,Total 9.3 mg/dL (7.6-11.0); Carbon Dioxide 17.9 mmol/L (21.0-32.0); Chloride 100 mmol/L (98-108); Glucose 148 mg/dL (70-99); Magnesium 1.8 mg/dL (1.5-2.2); Potassium 4.2 mmol/L (3.3-5.1)
[2025-03-26 00:17] LABS: Mucous, Urine 0 SEEN /hpf (<or=2+); Red Blood Cells-Urine 0 SEEN /hpf (0-5); Squamous Epithelial Cells - UA 0 SEEN /hpf (0-5)
[2025-03-26 00:28] LABS: Lipase 23 U/L (13-75)
[2025-03-26 00:41] LABS: Color, Urine Yellow (Yellow); Glucose, Dipstick 1000 mg/dl (Normal); Ketone-Dipstick Negative (Negative); Leukocyte Esterase-Dipstick Negative /ul (Negative); Nitrite-Dipstick Negative (Negative); Occult Blood-Urine Negative /ul (Negative); Protein-Dipstick 30 mg/dl (Negative); Specific Gravity, Urine 1.020 (1.002-1.030); Urine Bilirubin Dipstick Negative (Negative)
[2025-03-26 00:56] LABS: Troponin T High Sens 2 HR 58 ng/L (<=22)
--- NOTE | 2025-03-26 01:08 | CT_ITS ---
PROCEDURE: SOFT TISSUE NECK WITHOUT CONTR 03/26/2025 REASON FOR EXAM: SORE THROAT TECHNIQUE: SOFT TISSUE NECK WITHOUT CONTR One or more dose reduction techniques were used (e.g., Automated exposure control, adjustment of the mA and/or kV according to patient size, use of iterative reconstruction technique). RADIATION DOSE SUMMARY: CTDlvol: 65 mGy DLP: 1478 mGycm COMPARISON: No FINDINGS: Clear lung apices. Unremarkable superior mediastinum. Unremarkable posterior neck. No acute abnormal brain densities. Bilateral lens extraction. Clear sinuses, mastoid air cells, middle ear cavities. Cervical spine degeneration. No acute bone findings. Normal adenoids and tonsils. Normal epiglottis. Normal thyroid gland. No retropharyngeal space fluid. No cervical airway compromise. No mass, cyst, or abscess. CT/Soft Tissue Neck without Contr IMPRESSION: No acute findings. Reading Location: [place] [id number]
--- NOTE | 2025-03-26 01:08 | CT_ITS ---
PROCEDURE: BRAIN/HEAD WITHOUT CONTRAST 03/26/2025 REASON FOR EXAM: HEADACHE TECHNIQUE: BRAIN/HEAD WITHOUT CONTRAST Coronal and Sagittal reconstruction series were provided. One or more dose reduction techniques were used (e.g., Automated exposure control, adjustment of the mA and/or kV according to patient size, use of iterative reconstruction technique. RADIATION DOSE SUMMARY: CTDlvol: 65 mGy DLP: 1478 mGycm COMPARISON: No FINDINGS: No acute abnormal brain densities. No intracranial hemorrhage. No hydrocephalus or midline shift. No acute scalp or skull pathology. Bilateral lens extraction. Clear sinuses, mastoid air cells, middle ear cavities. CT/Brain/Head without Contrast IMPRESSION: No acute intracranial findings. Reading Location: [place] [address]
[2025-03-26 01:09] LABS: Barbiturate Urine NEGATIVE (< 200 ng/mL); Benzodiazepine Urine NEGATIVE (< 200 ng/mL); PCP Urine NEGATIVE (< 25 ng/mL); THC Urine NEGATIVE (< 50 ng/mL)
[2025-03-26 01:12] LABS: SITE Not entered; Time Given 01:09:53; VBG BASE EXCESS 3 mmol/L (-1.0-3.5); VBG PO2 14 mmHg (25-40); VBG SO2 17 % (50-70); VBG TCO2 30 mmol/L (23-33)
--- NOTE | 2025-03-26 01:12 | HP.PCM.HOS_ITS ---
[facility] - General General Date of Admission: 03/26/25 Date of Service: 03/26/25 Chief Complaint: Rigors, Chills and Fatigue. HPI Narrative MARTIN HENSON, is a 69 M with a past medical history of essential hypertension; on metoprolol BID and telmisartan, hyperlipidemia; on atorvastatin, obesity (class I); with BMI of 34 this admission, DM-2; of unknown control on empagliflozin, history of ascending aortic aneurysm complicated by aortic root dilatation and nonrheumatic aortic stenosis with bicuspid aortic valve; s/p aneurysm repair and AVR with #25 Inspra (2022) followed by [facility], history of angina; on prn SL NTG, GERD; on omeprazole and OA who presents to [facility] ER complaining of rigors, chills and fatigue. Mr. Henson reports his symptoms began approximately 1 day prior to admission when he began to feel rundown and tired with body aches with malaise. He then had difficulty sleeping followed by worsening fatigue with bouts of muscle spasms, myalgias and diaphoresis. Unfortunately, his symptoms worsened with the sudden-onset of severe rigors and chills with intermittent episodes of SOB and stridor. He denies recent sick contacts, recent travel, recent medication changes or similar previous episodes. He also denies related fever, visual changes, discharge from eyes, runny nose, sore throat, ear pain, chest pain, palpitations, heart racing, cough, abdominal pain, nausea, vomiting, diarrhea, constipation, dysuria, hematuria, rash, paresthesias or headache. In the ER he was noted to have Leukocytosis of 13.3K with Lactic Acidosis of 3.5 mmol/L and elevated procalcitonin of 1.47 ng/mL all present on admission and concerning for SIRS with rigors so severe he was treated with oral diazepam followed by IV lorazepam x 2; with UA, CXR and CT scans of the chest, abdomen and pelvis all negative for acute pathologic changes or obvious source of infection complicated by Hyperbilirubinemia; with a total bilirubin of 1.78 mg/dL and a direct bilirubin of 0.74 mg/dL compounded by suspected ELISE; with elevated serum creatinine of 1.56 mg/dL (up from his baseline of 1.14 mg/dL on last evaluation) plus elevated initial troponin T of 51 ng/L followed by a second troponin T rising to 58 ng/L and he was then admitted to the PCU for ongoing care for a stay that is expected to extend beyond 2 midnights. 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 Home Medications ?Medication ?Instructions ?Recorded ?Last Taken ?Type aspirin 81 mg chewable tablet 81 mg PO DAILY@0800 07/1006/10/23 History atorvastatin 20 mg tablet 20 mg PO QHS #90 tabs 07/30/22 Rx nitroglycerin 0.4 mg sublingual 0.4 mg sublingual Q5M PRN chest 10/03/20 Unknown Rx tablet (Nitrostat) pain #90 tabs omeprazole 40 mg capsule,delayed 40 mg PO DAILY PRN he art burn 10/04/21 Unknown History release empagliflozin 10 mg tablet 10 mg PO DAILY 11/04/23 Unk nown History (Jardiance) multivitamin (Daily Multi-Vitamin 1 tab PO DAILY 11/04 Unknown History tablet) telmisartan 20 mg tablet 20 mg PO DAILY 05/04/24 Unkn own History amoxicillin 500 mg tablet See Rx Instructions PO .COMP ZULEIKA #8 08/04/24 Unknown Rx tabs metoprolol tartrate 100 mg tablet 100 mg PO BID #60 ta bs 12/24/24 Unknown Rx Allergy/AdvReac Type Severity Reaction Status Date / Time No Known Allergies Allergy Verified 03/25/25 21:49 Family History Father CVA (cerebral vascular accident) Hypertension Skin cancer Mother Hypertension Breast cancer Skin cancer Brother Hypertension Sister Hypertension Other Family history of CVA Family history of hypertension Surgical History S/P ascending aortic aneurysm repair S/P AVR (aortic valve replacement) and aortoplasty History of surgical biopsy (~07/2022) History of tonsillectomy and adenoidectomy History of bursectomy History of shoulder surgery History of cataract surgery Social History household members: spouse current occupational status: retired 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 Eyes: Patient denies changes in vision or discharge from eyes. ENT: Patient admits to sore throat a few days ago but he denies runny nose or ear pain. Resp: Patient admits to intermittent SOB with stridor. CV: Patient denies chest pain, palpitations, heart racing or LE edema. GI: Patient denies abdominal pain, nausea, vomiting, diarrhea or constipation. : Patient denies dysuria or hematuria. MSK: Patient admits to myalgias with rigors. Skin: Patient denies rash, abscess, wounds or jaundice. Psych: Patient denies symptoms of uncontrolled depression or anxiety. Allergy: Patient denies lip swelling, tongue swelling or urticaria. Hematology: Patient denies easy bleeding or easy bruisability. Endocrinology: Patient denies polyuria, polydipsia, polyphagia or heat/cold intolerance. 14 point ROS otherwise negative except for positives noted above in HPI. Vital Signs Vital Signs Vital Signs: 03/25/25 21:46 03/25/25 22:00 03/25/25 23:26 Temperature 98.3 F Temperature Source Temporal Pulse Rate 95 90 Respiratory Rate 16 Respiratory Effort Normal Non-Labored Respiratory Pattern Normal Blood Pressure 112/72 110/69 Blood Pressure Mean 85 82 Pulse Ox 97 97 Oxygen Delivery Method Room Air Room Air 03/26/25 00:50 Temperature Temperature Source Pulse Rate 103 H Respiratory Rate 22 H Respiratory Effort Respiratory Pattern Blood Pressure 115/67 Blood Pressure Mean 83 Pulse Ox 100 Oxygen Delivery Method Room Air Physical Exam Const alert, oriented x3 and no apparent distress Constitutional Narrative: Obese with diaphoretic, fatigued appearance. General Appearance: cooperative HEENT normocephalic, head/scalp atraumatic and hearing grossly normal bilaterally HEENT Narrative: Mucous membranes dry. Eyes PERRL, EOMs intact bilaterally and conjunctivae normal Neck no lymphadenopathy, supple and no JVD Resp normal respiratory effort, no retractions, no use of accessory muscles and clear to auscultation bilaterally Cardio regular rate and regular rhythm Cardio Narrative: Tachycardia noted at ~110 bpm. GI normal to inspection, nondistended, normoactive bowel sounds, soft to palpation, non-tender and non-distended GI Narrative: Obese. Extremity normal to inspection, full ROM and no clubbing, cyanosis or edema Skin Skin Narrative: Patient appears aches and diaphoretic but he has no evidence of rash or wounds. Neuro oriented x3, CN's II-XII intact bilaterally, moves all extremities and no focal motor deficits Neuro Narrative: Patient mildly sedated after multiple doses of benzodiazepines in the ER. Sensorium / Orientation: awake, alert, oriented to person, oriented to place and oriented to time Speech: speech normal Psych affect normal Results Medical Records Data Attestation: I reviewed the patient's medical records Lab / Micro Data Attestation: I reviewed the patient's lab results. 03/26/25 04:05 03/26/25 05:28 Labs: Laboratory Results - last 24 hr 03/25/25 22:00: WBC 13.3 H, RBC 5.18, Hgb 16.2, Hct 46.4, MCV 89.6, MCH 31.3, MCHC 34.9, RDW Std Deviation 42.0, RDW Coeff of Flei 12.8, Plt Count 130 L, MPV 10.4, Immature Gran % (Auto) 0.400, Neut % (Auto) 89.1 H, Lymph % (Auto) 4.7 L, Knott % (Auto) 4.9, Eos % (Auto) 0.4, Baso % (Auto) 0.5, Absolute Neuts (auto) 11.9 H, Absolute Lymphs (auto) 0.63 L, Nucleated RBC % 0, Sodium 136, Potassium 4.2, Chloride 100, Carbon Dioxide 17.9 L, Anion Gap 18 H, BUN 21 H, Creatinine 1.56 H, Est GFR (MDRD) Non-Af 48 L, BUN/Creatinine Ratio 13.3, Glucose 148 H, Calcium 9.3, Magnesium 1.8, Total Bilirubin 1.78 H, Direct Bilirubin 0.74 H, AST 27, ALT 38, Alkaline Phosphatase 75, Total Creatine Kinase 116, Troponin T High Sens 51 H, Total Protein 7.2, Albumin 4.3, Globulin 2.9, Lipase 23, P rocalcitonin 1.47 H, TSH 2.140 03/25/25 22:09: POC Glucose 151 H 03/26/25 00:03: Lactic Acid 3.5 H* 03/26/25 00:08: Troponin T Hi Sens 2 Hr 58 H*, Urine Color Yellow, Urine Clarity Clear, Urine pH 5.0, Ur Specific [place] 1.020, Urine Protein 30 H, Urine Glucose (UA) 1000 H, Urine Ketones Negative, Urine Occult Blood Negative, Urine Nitrite Negative, Urine Bilirubin Negative, Urine Urobilinogen Normal, Ur Leukocyte Esterase Negative, Urine RBC 0 SEEN, Urine WBC 0 SEEN, Ur Squamous Epith Cells 0 SEEN, Urine Bacteria 1+, Urine Mucus 0 SEEN, Urine Opiates Screen NEGATIVE, U Buprenorphine Qual NEGATIVE, Ur Oxycodone Screen NEGATIVE, Urine Methadone Screen NEGATIVE, Urine Fentanyl Screen NEGATIVE, Ur Barbiturates Screen NEGATIVE, Ur Phencyclidine Scrn NEGATIVE, Ur Amphetamines Screen NEGATIVE, U Benzodiazepines Scrn NEGATIVE, Urine Cocaine Screen NEGATIVE, U Cannabinoids Screen NEGATIVE Micro: Microbiology 03/25/25 23:14 Mucosa - Nose SARS-CoV-2, Influenza & RSV (PCR) - Final Imaging Radiology Impression Chest X-Ray 03/25/25 22:45 IMPRESSION: Cardiomegaly. No acute pulmonary disease. Reading Location: [id number] Chest/Abdomen/Pelvis CTA 03/26/25 00:00 IMPRESSION: Status post AVR. Status post ascending aortic repair with graft. No thoracic aortic aneurysm or dissection. No acute chest, abdomen, or pelvic pathology. Reading Location: [facility] Imaging Services [address] [place] [address] Brain/Head without Contrast MR#: [id number] Acct: [id number] Name: MARTIN HENSON Rep #: [id number] : 1955 M 69 From: Marshall Tiwari MD PCP: ALEXANDRA Mathew Status: ADM IN Study: Brain/Head without Contrast Date of Exam: 03/26/25 Exam# [id number] Ordering Dr: Lexa Maloney DO PROCEDURE: BRAIN/HEAD WITHOUT CONTRAST 03/26/2025 REASON FOR EXAM: HEADACHE TECHNIQUE: BRAIN/HEAD WITHOUT CONTRAST Coronal and Sagittal reconstruction series were provided. One or more dose reduction techniques were used (e.g., Automated exposure control, adjustment of the mA and/or kV according to patient size, use of iterative reconstruction technique. RADIATION DOSE SUMMARY: CTDlvol: 65 mGy DLP: 1478 mGycm COMPARISON: No FINDINGS: No acute abnormal brain densities. No intracranial hemorrhage. No hydrocephalus or midline shift. No acute scalp or skull pathology. Bilateral lens extraction. Clear sinuses, mastoid air cells, middle ear cavities. CT/Brain/Head without Contrast IMPRESSION: No acute intracranial findings. Reading Location: [facility] CC: ALEXANDRA Parker; DO Jarret Turner Substance Abuse Clinician: Signed [facility] Imaging Services [address] [place], [place] [address] Soft Tissue Neck without Contr MR#: [id number] Acct: [id number] Name: MARTIN HENSON Rep #: [id number] : 1955 M 69 From: Marshall Tiwari MD PCP: ALEXANDRA Mathew Status: ADM IN Study: Soft Tissue Neck without Contr Date of Exam: 03/26/25 Exam# [id number] Ordering Dr: Lexa Maloney DO PROCEDURE: SOFT TISSUE NECK WITHOUT CONTR 03/26/2025 REASON FOR EXAM: SORE THROAT TECHNIQUE: SOFT TISSUE NECK WITHOUT CONTR One or more dose reduction techniques were used (e.g., Automated exposure control, adjustment of the mA and/or kV according to patient size, use of iterative reconstruction technique). RADIATION DOSE SUMMARY: CTDlvol: 65 mGy DLP: 1478 mGycm COMPARISON: No FINDINGS: Clear lung apices. Unremarkable superior mediastinum. Unremarkable posterior neck. No acute abnormal brain densities. Bilateral lens extraction. Clear sinuses, mastoid air cells, middle ear cavities. Cervical spine degeneration. No acute bone findings. Normal adenoids and tonsils. Normal epiglottis. Normal thyroid gland. No retropharyngeal space fluid. No cervical airway compromise. No mass, cyst, or abscess. CT/Soft Tissue Neck without Contr IMPRESSION: No acute findings. Reading Location: [place] [address] CC: ALEXANDRA Parker; Lexa Maloney DO ~ Substance Abuse Clinician: Signed Assessment & Plan Assessment/Plan (1) SIRS (systemic inflammatory response syndrome): (2) Leukocytosis: QUALIFIERS: Leukocytosis type: unspecified Qualified Code(s): D 72.829 - Elevated white blood cell count, unspecified (3) Acute lactic acidosis: (4) Rigor: (5) Hyperbilirubinemia: (6) ELISE (acute kidney injury): (7) Elevated troponin: (8) Thrombocytopenia: (9) Hypophosphatemia: (10) Obesity (BMI 30.0-34.9): (11) D-dimer, elevated: PLAN: Plan 1. Leukocytosis of 13.3K with Lactic Acidosis of 3.5 mmol/L and elevated procalcitonin of 1.47 ng/mL all present on admission and concerning for SIRS with rigors so severe he was treated with oral diazepam followed by IV lorazepam x 2; with UA, CXR and CT scans of the chest, abdomen, pelvis, head and neck all negative for acute pathologic changes or obvious source of infection - Admit to PCU. Continue empiric IV vancomycin and IV piperacillin-tazobactam begun in the ER and await blood cultures. Serialize lactates. Check expanded viral respiratory panel. Give acetaminophen prn for [id number] (level 1-5/10) pain or fever. Give morphine IV prn for severe (level 6-10/10) pain. 2. Hyperbilirubinemia; with a total bilirubin of 1.78 mg/dL and a direct bilirubin of 0.74 mg/dL complicating #1 - CT negative for acute pathologic changes in liver or surrounding structures. Serialize CMP to follow trend. 3. ELISE; with elevated serum creatinine of 1.56 mg/dL (up from his baseline of 1.14 mg/dL on last evaluation) compounding #1 & #2 - Aggressively volume resuscitate and recheck renal indices in AM to evaluate for potential improvement. 4. Elevated initial troponin T of 51 ng/L followed by a second troponin T rising to 58 ng/L in the setting of a known history of ascending aortic aneurysm complicated by aortic root dilatation and nonrheumatic aortic stenosis with bicuspid aortic valve; s/p aneurysm repair and AVR with #25 Inspra (2022) followed by [facility] in addition to angina on PRN SL NTG adding to the medical complexity of #1 -#3 - Most recent echocardiogram in system from March 25, 2024 done at [facility] revealed LVEF ~65% with severe asymmetric LVH and with LV diastolic function not able to be evaluated. Serialize troponin. Check new echocardiogram to evaluate LVEF and assess for possible vegetation or other pathologic changes that would explain his symptoms. 5. Hypophosphatemia of 1 mg/dL present on admission exacerbating #1 - #4 - Give 45 mmol Potassium Phosphate IV once and then recheck level to confirm repletion. 6. Obesity; with BMI of 34 this admission adding to the burden of disease outlined from #1- #5 - Weight loss will be recommended. Normal TSH of 2.14 present on admission noted. This complicates his case and may hamper recovery. 7. Highly elevated D-dimer of 5.35 present on admission - CTA of chest with IV contrast done in ER was negative for PE. Check bilateral LE Doppler to evaluate for DVT. 8. Moderate Thrombocytopenia of 130K present on admission - Noted. Check level daily to follow trend. 9. Essential hypertension; on metoprolol BID and telmisartan - Hold scheduled antihypertensives in light of #1. 10. Hyperlipidemia; on atorvastatin - Resume statin and check Lipid Profile. 11. DM-2; of unknown control on empagliflozin - Keep NPO for now. FSBS q. 6 hours plus lowest-intensity SSI. Check HgbA1c to objectively assess quality of diabetic control. 12. GERD; on omeprazole - Maintain PPI. 13. OA - Give acetaminophen prn according to scale outlined in #1. 14. DVT prophylaxis - Enoxaparin 40 mg sq daily plus SCD's. Stop LMWH if platelet count drops ~100K. Total time: Approximately (but not less than) 75 minutes. Update: Rapid Response was called on PCU at ~4:25 AM with patient spiking a temperature to 105.3 degrees Fahrenheit and hyperventilating with rigors and chills in spite of being treated with an additional dose of IV lorazepam. He was rapidly cooled with ice packs and cold rags and then he was moved to the ICU for intubation. He was given etomidate 10 mg IV once in addition to succinylcholine 10 mg IV once and then intubated with the [place]-Scope on the first attempt with good color change on the CO2 indicator. He then had follow X-rays that his ETT and OGT were in good position. His lactate increased to 5.1 mmol/L an his ABG done at the time of the Rapid Response revealed pH 7.46/ PCO2 25.3 mmHg / PO2 61 mmHg / HCO3 17.8 mmol/L @ 93% on 2L NC with pantoprazole changed to IV preparation for a total of an extra 45 minutes of critical care time. He was then sedated on propofol drip and his blood pressure decreased into the ~75 mmHg range and he was then ordered Levophed drip to keep MAP > 65 mmHg with PICC also pending placement in the AM. The patient's was contacted and updated on his condition and she is on her way in. Consultation was made for infectious diseases to see this patient on rounds in the AM with help appreciated in advance. Finally, I would like to recognize he outstanding care and expert support from the PCU, ICU, RT teams and Charge Nurse who helped me take care of this critically-ill patient, you all are greatly appreciated! [facility] Imaging Services [address] [place] [address] Chest 1 View (Portable) MR#: [id number] Acct: [id number] Name: MARTIN HENSON Rep #: [id number] : 1955 M 69 From: Marshall Tiwari MD PCP: ALEXANDRA Mathew Status: ADM IN Study: Chest 1 View (Portable) Date of Exam: 03/26/25 Exam# [id number] Ordering Dr: Anthony Alberto DO PROCEDURE: CHEST 1 VIEW (PORTABLE) 03/26/2025 REASON FOR EXAM: ETT PLACEMENT TECHNIQUE: Frontal view of the chest. COMPARISON: 03/25/2025 FINDINGS: ETT tip at thoracic inlet. Enteric tube tip in stomach lumen. Normal heart size. Status post AVR. Status post CABG. Well inflated lungs. No consolidation, effusion or pneumothorax. RAD/Chest 1 View (Portable) IMPRESSION: No acute chest findings. Reading Location: [facility] Sepsis Attestation Sepsis Alert: Yes Sepsis Attestation: Sepsis Ruled Out Date exam was performed: 03/26/25 Time exam was performed: 02:15 Possible Source of Sepsis: Unknown Sepsis Organ Dysfunction Criteria Present: SBP decrease of more than 40 mmHg and Lactic Acid > 2 mmol/L Supportive Findings: In the ER he was noted to have Leukocytosis of 13.3K with Lactic Acidosis of 3.5 mmol/L and elevated procalcitonin of 1.47 ng/mL all present on admission and concerning for SIRS with rigors so severe he was treated with oral diazepam followed by IV lorazepam x 2; with UA, CXR and CT scans of the chest, abdomen and pelvis all negative for acute pathologic changes or obvious source of infection complicated by Hyperbilirubinemia with a total bilirubin of 1.78 mg/dL and a direct bilirubin of 0.74 mg/dL compounded by suspected ELISE; with elevated serum creatinine of 1.56 mg/dL (up from his baseline of 1.14 mg/dL on last evaluation) plus elevated initial troponin T of 51 ng/L followed by a second troponin T rising to 58 ng/L now with persistent tachycardia and tachypnea. Fluid Resuscitation Fluid resuscitation indicated?: Yes Fluid Resuscitation ordered: 30 ml/kg fluid bolus ordered Amount of fluid ordered: 3 Sepsis Note Date exam was performed: 03/26/25 Time exam was performed: 06:15 Sepsis Attestation: Sepsis re-evaluation was performed Response to fluids: Fluid responsive hypotension Charges/Coding Visit Charges Inpatient E&M: 12830 Init Hosp L3
--- NOTE | 2025-03-26 01:14 | EDS_ITS ---
HPI History of Present Illness Chief Complaint: Weakness Informant: patient, spouse/S.O. and family Narrative Narrative: Patient is a 69-year-old male with past medical history of hypertension and hyperlipidemia as well as nonrheumatic aortic valve stenosis requiring repair as well as aortic aneurysm requiring grafting. Patient states that last night he began to feel rundown and tired. He states he went to sleep and had difficulty sleeping. Today he has been having persistent fatigue with bouts of muscle spasms and pain as well as diaphoresis. He states that there is no fever throughout the day and that there has been no associated sick symptoms such as cough congestion nausea vomiting diarrhea or chest pain. However secondary to the persistent symptoms he presents for evaluation. [facility] Medical History Aortic stenosis Cardiomyopathy Abnormal echocardiogram findings without diagnosis Nonrheumatic aortic (valve) stenosis (~09/20/21) Pure hypercholesterolemia Essential hypertension Aortic root dilatation Chest pain Family history of CVA Family history of hypertension Abnormal electrocardiogram Angina pectoris Undiagnosed cardiac murmurs Bicuspid aortic valve Other correction (current) drug therapy Home Medications ?Medication ?Instructions ?Recorded ?Last Taken ?Type aspirin 81 mg chewable tablet 81 mg PO DAILY@0800 07/10 4/14 06/10/23 History atorvastatin 20 mg tablet 20 mg PO QHS #90 tabs 07/30/22 Rx nitroglycerin 0.4 mg sublingual 0.4 mg sublingual Q5M PRN chest 10/03/20 Unknown Rx tablet (Nitrostat) pain #90 tabs omeprazole 40 mg capsule,delayed 40 mg PO DAILY PRN he art burn 10/04/21 Unknown History release empagliflozin 10 mg tablet 10 mg PO DAILY 11/04/23 Unk nown History (Jardiance) multivitamin (Daily Multi-Vitamin 1 tab PO DAILY 11/04 Unknown History tablet) telmisartan 20 mg tablet 20 mg PO DAILY 05/04/24 Unkn own History amoxicillin 500 mg tablet See Rx Instructions PO .COMP ZULEIKA #8 08/04/24 Unknown Rx tabs metoprolol tartrate 100 mg tablet 100 mg PO BID #60 ta bs 12/24/24 Unknown Rx Allergy/AdvReac Type Severity Reaction Status Date / Time No Known Allergies Allergy Verified 03/25/25 21:49 Family History Father CVA (cerebral vascular accident) Hypertension Skin cancer Mother Hypertension Breast cancer Skin cancer Brother Hypertension Sister Hypertension Other Family history of CVA Family history of hypertension Surgical History
--- NOTE | 2025-03-26 01:14 | EX.ED.DYSGE1 ---
HPI History of Present Illness Chief Complaint: Weakness Informant: patient, spouse/S.O. and family Narrative Narrative: Patient is a 69-year-old male with past medical history of hypertension and hyperlipidemia as well as nonrheumatic aortic valve stenosis requiring repair as well as aortic aneurysm requiring grafting. Patient states that last night he began to feel rundown and tired. He states he went to sleep and had difficulty sleeping. Today he has been having persistent fatigue with bouts of muscle spasms and pain as well as diaphoresis. He states that there is no fever throughout the day and that there has been no associated sick symptoms such as cough congestion nausea vomiting diarrhea or chest pain. However secondary to the persistent symptoms he presents for evaluation. [facility] Medical History Aortic stenosis Cardiomyopathy Abnormal echocardiogram findings without diagnosis Nonrheumatic aortic (valve) stenosis (~09/20/21) Pure hypercholesterolemia Essential hypertension Aortic root dilatation Chest pain Family history of CVA Family history of hypertension Abnormal electrocardiogram Angina pectoris Undiagnosed cardiac murmurs Bicuspid aortic valve Other halfway (current) drug therapy Home Medications ?Medication ?Instructions ?Recorded ?Last Taken ?Type aspirin 81 mg chewable tablet 81 mg PO DAILY@0800 07/23/14 06/10/23 History atorvastatin 20 mg tablet 20 mg PO QHS #90 tabs 09/30/20 07/30/22 Rx nitroglycerin 0.4 mg sublingual 0.4 mg sublingual Q5M PRN chest 10/03/20 Unknown Rx tablet (Nitrostat) pain #90 tabs omeprazole 40 mg capsule,delayed 40 mg PO DAILY PRN heart burn 10/04/21 Unknown History release empagliflozin 10 mg tablet 10 mg PO DAILY 11/04/23 Unknown History (Jardiance) multivitamin (Daily Multi-Vitamin 1 tab PO DAILY 11/04/23 Unknown History tablet) telmisartan 20 mg tablet 20 mg PO DAILY 05/04/24 Unknown History amoxicillin 500 mg tablet See Rx Instructions PO .COMPLEX #8 08/04/24 Unknown Rx tabs metoprolol tartrate 100 mg tablet 100 mg PO BID #60 tabs 12/24/24 Unknown Rx Allergy/AdvReac Type Severity Reaction Status Date / Time No Known Allergies Allergy Verified 03/25/25 21:49 Family History Father CVA (cerebral vascular accident) Hypertension Skin cancer Mother Hypertension Breast cancer Skin cancer Brother Hypertension Sister Hypertension Other Family history of CVA Family history of hypertension Surgical History S/P ascending aortic aneurysm repair S/P AVR (aortic valve replacement) and aortoplasty History of surgical biopsy (~07/2022) History of tonsillectomy and adenoidectomy History of bursectomy History of shoulder surgery History of cataract surgery Social History household members: spouse current occupational status: retired 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, 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 current occupational exposures/hazards: Yes (crop [employer]) Smoking Status: Never smoker Smokeless tobacco user: chewing tobacco second hand exposure: Yes alcohol intake: never substance use type: does not use caffeine: Yes Type: coffee Number of servings: 1 and tea Number of servings: 2 ROS ROS ED Constitutional Constitutional ED: Reports sweats; Denies chills or fever(s) Eyes Eyes: Denies change in vision ENT ENT ED: Denies rhinorrhea or sore throat Cardiovascular Cardiovascular: Denies chest pain, palpitations or racing heartbeat Respiratory/Chest Respiratory/Chest: Denies cough or dyspnea Gastrointestinal Gastrointestinal: Denies abdominal pain, diarrhea, nausea or vomiting Genitourinary Genitourinary ED: Denies dysuria Musculoskeletal Musculoskeletal: Reports myalgias Integumentary Denies rash Neurologic Neurologic: Reports weakness; Denies headache(s) or paresthesias Hematologic/Lymphatic Hematologic/Lymphatic: Denies easy bleeding or easy bruising EXAM Physical Exam Const Vital Signs: 03/25/25 21:46 03/25/25 22:00 03/25/25 23:26 Temperature 98.3 F Temperature Source Temporal Pulse Rate 95 90 Respiratory Rate 16 Respiratory Effort Normal Non-Labored Respiratory Pattern Normal Blood Pressure 112/72 110/69 Blood Pressure Mean 85 82 Pulse Ox 97 97 Oxygen Delivery Method Room Air Room Air 03/26/25 00:50 Temperature Temperature Source Pulse Rate 103 H Respiratory Rate 22 H Respiratory Effort Respiratory Pattern Blood Pressure 115/67 Blood Pressure Mean 83 Pulse Ox 100 Oxygen Delivery Method Room Air Positive well nourished and well developed General Appearance ED: well developed; Negative for pallor HEENT HEENT Narrative: Mucous membranes are mildly dry and tacky No tongue or lip swelling no oral lesions no airway edema or compromise There is mild erythema in the posterior pharynx without obvious findings of infection or abscess. No exudate. No muffled or change voice. No difficulty with secretions. No trismus Eyes PERRL and EOMs intact bilaterally Neck supple Neck Narrative: No nuchal rigidity or meningeal signs noted Resp normal respiratory effort Resp Narrative: Breath sounds are slight diminished throughout with faint expiratory wheeze in the bilateral bases but no signs of respiratory distress Cardio regular rate and regular rhythm Rate: other Other Details: Radial and carotid pulses are equal and symmetric GI normal to inspection, nondistended, normoactive bowel sounds, non-tender, non-distended and no masses GI Narrative: No voluntary guarding or rigidity or pulsatile mass Auscultation: normoactive bowel sounds Palpation: soft Extremity normal to inspection Extremity Narrative: Negative Homans' sign bilaterally Neuro oriented x3, CN's II-XII intact bilaterally and no sensory deficits noted Sensorium / Orientation: alert Motor Exam: strength 5/5 throughout Psych mental status grossly normal Skin no rashes or lesions noted and no wounds Skin Narrative: Skin is diaphoretic but no overlying secondary findings such as erythema or warmth or lymphangitic streaking to suggest infection General Skin Exam: Negative for jaundice or pallor MDM MDM MDM Narrative Medical decision making narrative: Patient presented to the ER diaphoretic but otherwise with stable vitals. He reported generalized fatigue without any other symptoms such as chest pain cough congestion abdominal pain vomiting or diarrhea. Based on his generalized malaise and diaphoresis there is concern for a underlying systemic infection. Patient could also have viral infection such as COVID influenza RSV or UTI. Secondary to this basic labs are obtained with a chest x-ray and viral swab. Viral swab was negative for COVID influenza or RSV. Chest x-ray revealed no signs of pneumonia. Urine sample showed no obvious findings of infection to suggest UTI. Patient's white count is elevated at 13.3 with mild left shift with neutrophil count of 12. With this his procalcitonin is 1.5. These changes indicate patient most likely has a developing infection. Therefore blood cultures and urine cultures were obtained and he was started on vancomycin and Zosyn. The patient does have mild renal insufficiency correlating with dehydration as his creatinine which is normally around 1 is now 1.8. Secondary to this he was given 2 L of fluid. Patient's lactic is also elevated at 3.5 which could correlate with dehydration or developing. The patient is having intermittent bouts of rigors. This coupled with his white count left shift lactic acidosis and procalcitonin is concerning for infection that is not presented at this time. Therefore I feel his safest option is admission to the hospital while blood cultures and urine cultures are pending and to see if a source of infection declares itself. His liver enzymes were elevated and therefore a CTA of the chest abdomen and pelvis were obtained. This displayed no sign of acute cholecystitis or pancreatitis or underlying lung pathology such as pneumonia. At this time the patient is hemodynamically stable and protecting his airway so he does not need intubated nor does he need a central line or vasopressors. However as there is high likelihood he could progress to sepsis secondary to his inflammatory process he will be kept in the hospital for further evaluation. The hospitalist was consulted secondary to his who agrees with this plan of care and will admit him for further evaluation and treatment. History & Record Review Discussion w/independent historian: Patient, Family and Significant other Lab Data Attestation: I reviewed the patient's lab results. Labs: Laboratory Results - last 24 hr 03/25/25 03/25/25 03/26/25 22:00 22:09 00:03 WBC 13.3 H RBC 5.18 Hgb 16.2 Hct 46.4 MCV 89.6 MCH 31.3 MCHC 34.9 RDW Std Deviation 42.0 RDW Coeff of Feli 12.8 Plt Count 130 L MPV 10.4 Immature Gran % (Auto) 0.400 Neut % (Auto) 89.1 H Lymph % (Auto) 4.7 L [place] % (Auto) 4.9 Eos % (Auto) 0.4 Baso % (Auto) 0.5 Absolute Neuts (auto) 11.9 H Absolute Lymphs (auto) 0.63 L Nucleated RBC % 0 Sodium 136 Potassium 4.2 Chloride 100 Carbon Dioxide 17.9 L Anion Gap 18 H BUN 21 H Creatinine 1.56 H Est GFR (MDRD) Non-Af 48 L BUN/Creatinine Ratio 13.3 Glucose 148 H Lactic Acid 3.5 H* Calcium 9.3 Magnesium 1.8 Total Bilirubin 1.78 H Direct Bilirubin 0.74 H AST 27 ALT 38 Alkaline Phosphatase 75 Total Creatine Kinase 116 Troponin T High Sens 51 H Troponin T Hi Sens 2 Hr Total Protein 7.2 Albumin 4.3 Globulin 2.9 Lipase 23 Procalcitonin 1.47 H TSH 2.140 Urine Color Urine Clarity Urine pH Ur Specific [place] Urine Protein Urine Glucose (UA) Urine Ketones Urine Occult Blood Urine Nitrite Urine Bilirubin Urine Urobilinogen Ur Leukocyte Esterase Urine RBC Urine WBC Ur Squamous Epith Cells Urine Bacteria Urine Mucus Urine Opiates Screen U Buprenorphine Qual Ur Oxycodone Screen Urine Methadone Screen Urine Fentanyl Screen Ur Barbiturates Screen Ur Phencyclidine Scrn Ur Amphetamines Screen U Benzodiazepines Scrn Urine Cocaine Screen U Cannabinoids Screen POC Glucose 151 H 03/26/25 00:08 WBC RBC Hgb Hct MCV MCH MCHC RDW Std Deviation RDW Coeff of Feli Plt Count MPV Immature Gran % (Auto) Neut % (Auto) Lymph % (Auto) [place] % (Auto) Eos % (Auto) Baso % (Auto) Absolute Neuts (auto) Absolute Lymphs (auto) Nucleated RBC % Sodium Potassium Chloride Carbon Dioxide Anion Gap BUN Creatinine Est GFR (MDRD) Non-Af BUN/Creatinine Ratio Glucose Lactic Acid Calcium Magnesium Total Bilirubin Direct Bilirubin AST ALT Alkaline Phosphatase Total Creatine Kinase Troponin T High Sens Troponin T Hi Sens 2 Hr 58 H* Total Protein Albumin Globulin Lipase Procalcitonin TSH Urine Color Yellow Urine Clarity Clear Urine pH 5.0 Ur Specific [place] 1.020 Urine Protein 30 H Urine Glucose (UA) 1000 H Urine Ketones Negative Urine Occult Blood Negative Urine Nitrite Negative Urine Bilirubin Negative Urine Urobilinogen Normal Ur Leukocyte Esterase Negative Urine RBC 0 SEEN Urine WBC 0 SEEN Ur Squamous Epith Cells 0 SEEN Urine Bacteria 1+ Urine Mucus 0 SEEN Urine Opiates Screen NEGATIVE U Buprenorphine Qual NEGATIVE Ur Oxycodone Screen NEGATIVE Urine Methadone Screen NEGATIVE Urine Fentanyl Screen NEGATIVE Ur Barbiturates Screen NEGATIVE Ur Phencyclidine Scrn NEGATIVE Ur Amphetamines Screen NEGATIVE U Benzodiazepines Scrn NEGATIVE Urine Cocaine Screen NEGATIVE U Cannabinoids Screen NEGATIVE POC Glucose ABG Data ABG results: ABG 03/26/25 01:08 Specimen Type FRANCI Sample Site Not entered VBG pH 7.38 VBG pO2 14 L* VBG HCO3 28 H VBG Total CO2 30 VBG O2 Sat (Calc) 17 L VBG Base Excess 3 POC Mix VBG pCO2 Pt Tmp 47.5 O2 Delivery Device Room Air Crit Call To/Read Back Yes Blood Gas Notified Whom Andes Blood Gas Notified Time 01:09:53 Radiography Diagnostic Testing: Clinical Impression(s) from Imaging Studies Chest X-Ray 03/25/25 22:45 IMPRESSION: Cardiomegaly. No acute pulmonary disease. Reading Location: [id number] Chest/Abdomen/Pelvis CTA 03/26/25 00:00 IMPRESSION: Status post AVR. Status post ascending aortic repair with graft. No thoracic aortic aneurysm or dissection. No acute chest, abdomen, or pelvic pathology. Reading Location: [place] [id number] Chest x-ray as interpreted by the emergency medicine system reveals cardiomegaly without infiltrate pleural effusion or pneumothorax Discharge Plan Dx/Rx/DC Orders Clinical Impression: Essential hypertension, Acute lactic acidosis, Rigor, SIRS (systemic inflammatory response syndrome), Hyperlipidemia Disposition Disposition: Acute Care Hospital [facility]
[2025-03-26] MEDS: Lorazepam 2 MG/ML WCH Syringe 1 MG IV (01:16)
[2025-03-26] MEDS: 0.9% Normal Saline (1000mL) 1,000 ML 999 ML IV ×2 (01:17→02:22)
--- OUTSIDE RECORDS SUMMARY | 2025-03-26 01:34 | XMS RPT_ITS | CCD ---
Author Organization [facility] Inform ion Partnership [facility] Care Team Providers Care Repeat Chief Name Role Phone Debo VELAZQUEZ, Nae Kapadia [...] Provider Geoff Sainz MD Primary Care Provider Dr. Geoff Sainz Primary Care Provider Dr. Geoff Sainz Referring Provider HERBERT Bacon Attending Provider HERBERT Cerda Attending Provider Dr. Geoff Sainz Primary Care Provider Unavaila ble Dr. Geoff Sainz Referring Provider Unavailable ALEXANDRA Mathews Primary Care Provider [phone] AROM: shoulder flexion 170 degrees with substitution [...] do not hesitate to contact me at [phone] by phone or if you have questions or concerns regarding this new plan of care! Sincerely, Zane Alvarado PT, Doug DAHL, OCS 10/15/24 0947 CC: ALEXANDRA Mathews JLKang Signed For Medicare only, by signing this I certify the plan of care. Physicians Signature Date Normal [facility] Inital Evaluation (1) - PTon 09-16-2024 Inital Evaluation (1) - PT [facility] Physical Therapy [facility] [address] [place] [address] / REHABILITATION SERVICES INITIAL EVALUATION MR#: [id number] Acct: [id number] Name: MARTIN HENSON Rep #: [id number] : 1955 68 From: Doug Goldberg PT. MD Rajan, OCS Referring Dr.: ALEXANDRA Mathew Status: REG R CR Insurance: [facility] SELF PAY INSURANCE Patient's Visit Information Visit Information Visit Information: MARTIN HENSON is a 68 year old M referred to Physical Therapy by ALEXANDRA Mathew with a diagnosis of PAIN IN RIGHT SHOULDER. Date of Evaluation: 09/16/24 Physical Therapist: Zane Alvarado PT, Cert T, OCS Visit Plan Frequency: 2x /Week Duration: [...] and avoid surgery. 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 For Medicare only, by signing this I certify the plan of care. Please let me (more content not included)... 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 Office Visit (MAW) HENSONMARTIN MODI ([id number]) 1955 M Date Time Provider Department 08/19/24 10:00 AM HARRIET HOGAN KRYTSIAN During your visit today, we recorded the following information about you: Harriet Hogan LGC 08/19/2024 10:26 AM Addendum GENETIC COUNSELING CONSULTATION [...] diagnosed with cardiomyopathy, including hypertrophic cardiomyopathy (PMID: [id number], [id number]). Recommended screening of first-degree relatives. Discussed the [...] need to be regularly evaluated by a radiosonde operator for HCM. We reviewed the options for genetic testing including a cardiomyopathy/arrhyth titi panel with the option for insurance coverage, self pay or sponsored testing. The patient elected to proceed with the [employer] Cardiomyopathy and Arrhythmia program which is a sponsored genetic test, this means, if the testing is not covered by insurance this program will cover the cost. However, if this genetic testing is a covered benefit through insurance it will be billed to insurance through [facility] [employer]'s typical process. If there is an out of pocket expense of greater than $100 [facility] [facility] (owned by [employer]) will make an automated call requesting patient call billing department back (more content not included)... Normal [facility] Heraclio 06-24-2024 CNOV Office Visit (RAYA ) MARTIN HENSON ([id number]) 1955 M Date Time Provider Department 06/24/24 1:30 PM EDMUND KAMARA During your visit today, we recorded the following information about you: Pulse Blood pressure Weight Height 59/minute 132/70 109.8 kg 1.854 m Edmund Kamara MD 06/24/2024 5:46 PM Signed [facility] Department of Cardiovascular Medicine SECTION OF CARDIAC PACING and ELECTROPHYSIOLOGY OUTPATIENT VISIT DATE June 24, 2024 OUTPATIENT VISIT TYPE NEW PRIMARY CARE PHYSICIAN: ABDIEL MATHEWS [address] [phone] REFERRING PHYSICIAN: Deena Francois MD [address] [id number] NURSING INTAKE HISTORY: Mr. Henson is a [...] (size #25). (more content not included)... Normal [facility] ECG COMPLETEon 06-24-2024 ECG COMPLETE Ventricular Rate : 5 9 BPM Atrial Rate : 59 BPM P-R Interval : 182 ms QRS Duration : 116 ms Q-T Interval : 456 ms QTC Calculation(Bazett) : 451 ms Calculated P Wright : 62 degrees Calculated R Wright : -4 degrees Calculated T Wright : 137 degrees SINUS BRADYCARDIA POSSIBLE LEFT ATRIAL ENLARGEMENT LEFT VENTRICULAR HYPERTROPHY WITH QRS WIDENING AND REPOLARIZATION ABNORMALITY ( R in aVL , Sokolow-Salcedo ) ABNORMAL ECG Confirmed by DEENA FRANCOIS MD ([id number]) on 07/28/2024 9:47:42 PM NAME : MARTIN HENSON PID : [id number] : 1955 Gender : Male Race : ORD : [id number] Procedure Date : Jun 24 2024 13:32:57 Edit Date : Jul 28 2024 21:47:45 Diagnosis: SINUS BRADYCARDIA POSSIBLE LEFT ATRIAL ENLARGEMENT LEFT VENTRICULAR HYPERTROPHY WITH QRS WIDENING AND REPOLARIZATION ABNORMALITY ( R in aVL , Sokolow-Salcedo ) ABNORMAL ECG Confirmed by DEENA FRANCOIS MD ([id number]) on 07/28/2024 9:47:42 PM Test Reason : Location : 314 : J14 J14 Overread By : DEENA FRANCOIS MD Edited By : DEENA FRANCOIS MD Referred By : , Acquired by : MEG BISHOP Normal [facility] Fernando 06-08-2024 KIMBERLYN Telephone (CARCVT) MARTIN HENSON ([id number]) 1955 M Date Time Provider Department 06/08/24 DEENA FRANCOIS During your visit today, we recorded the following information about you: Lester Lewis RN 06/08/2024 8:15 AM Signed Deena Francois MD [facility] Clinical Nurse Phone Pool Cc: Garima Garcia [...] PAIN-UNSPEC [M25.50] 05/20/2006 10/03/2006 SPRAIN SHOULDER/ARM NOS [[id number]] 05/20/2006 10/03/2006 Complete rupture of rotator cuff [...] Encounter Status:Closed by LESTER LEWIS on 06/08/24 [facility] Fernando 05-05-2024 CNPN Telephone (CARCMN) MARTIN HENSON ([id number]) 1955 Date Time Provider Department 05/05/24 DEENA FRANCOIS During your visit today, we recorded the following information about you: Goldie Leger 05/05/2024 8:50 AM Signed Patient called and asked that office notes and stress echo be sent sent Dr. Mathesw [phone] received fax confirmation Goldie Leger May 05, 2024 8:50 AM Allergies As of Date: 05/05/2024 (No Known Allergies) Date Reviewed: 03/25/2024 Reviewed by: Lester Lewis, MARCUS - Fully Assessed Reason for Visit: fax [...] PAIN-UNSPEC [M25.50] 05/20/2006 10/03/2006 SPRAIN SHOULDER/ARM NOS [[id number]] 05/20/2006 10/03/2006 Complete rupture of rotator cuff [...] Encounter Status:Closed by GOLDIE LEGER on 05/05/24 [facility] Cardiology Visit Reporton Cardiology Visit Report [facility] [address] [place] [address] OFFICE VISIT Date of Service: 05/04/24 MR#: [id number] Acct: [id number] Name: MARTIN HENSON Rep #: [id number] : 1955 Provider: HERBERT Douglas Age/Sex: 68/M [place] [facility] [place] Signed [facility] History of Present Illness Details: Martin Henson [...] on . Echocardiogram in January 2024 at [facility] demonstrated left ventricle small severe concentric LVH estimated ejection fraction 70%. Stable prosthetic aortic valve. Intracavitary gradient of 102 mmHg from severe LVH. No obvious SANJEEV. Stress echo done in April 2024 [facility]. Exercise stress echo was negative for ischemia at 7.2 METS. No regional wall motion noted. Severe asymmetric LVH. Left atrial cavity increased from 36 mm work gree at rest to 110 mmHg post exercise. He underwent a limited echo and stress echo at [facility]. He tells me there was some [...] decreasing his medications that were done by [facility]. He does not have any near-syncope [...] (%) 99 Intake Visit Reasons: 6 M Vacuum Caster Required: No Is patient in pain?: No [...] you fallen in the past year?: No [facility] Medical History Aortic stenosis Cardiomyopathy Abnormal echocardiogram findings without diagnosis Nonrheumatic aortic (valve) stenosis ( 09/20/21) Pure hypercholesterolemia Essential hypertension Aortic root dilatation Chest pain Family history of CVA Family history of hypertension Abnormal electrocardiogram Angina pectoris Undiagnosed cardiac murmurs Bicuspid aortic valve Other half-way (current) drug therapy Surgical History S/P ascending aortic aneurysm repair S/P AVR (aortic valve replacement) and aortop (more content not included)... Normal [facility] HIGH SENSITIVITY TROPONIN To n 05-04-2024 Troponin T.cardiac High sensitivity method [Mass/Vol] 18 ng/L High <12 [facility] Comment on above: Order Comment: Sydnie arguello Type: BLOOD SPECIMENOrdering Facility: [facility] Address: [address] [place] [address] Performed By: #### 3 3762-6, HSTNT ####[facility] LABCLIA [id number] [address] [place] HbA1c (Bld)on 05-04-2024 Average glucose Estimated from glycated hemoglobin (Bld) [Mass/Vol] 120 mg/dL Normal [facility] Comment on above: Order Comment: Sydnie arguello Type: BLOOD SPECIMENOrdering Facility: [facility] Address: [address] [place] [address] Result Comment: eAG: (Estimated average glucose) is a calculated value from HgbA1c and is in home sales representative of the average blood glucose level in the last 2-3 month period. Performed By: #### 5 5454-3 ####[facility] LABIA [id number] [address] [place] HbA1c (Bld) [Mass fraction] 5.8 % High 4.3-5.6 [facility] Comment on above: Order Comment: Sydnie arguello Type: BLOOD SPECIMENOrdering Facility: [facility] Address: [address] [place] [address] Result Comment: Amer ican Diabetes Association guidelines indicate that patients with HgbA1c in the range 5.7-6.4% are at increased risk for development of diabetes, and intervention by lifestyle modification may be beneficial. HgbA1c greater or equal to 6.5% is considered diagnostic of diabetes. Performed By: #### 5 5454-3 ####[facility] LABIA [id number] [address] [place] NT-proBNP [facility] Natriuretic peptide.B prohormone N-Terminal [Mass/Vol] 286 pg/mL High <125 [facility] Comment on above: Order Comment: Sydnie arguello Type: BLOOD SPECIMENOrdering Facility: [facility] Address: [address] [place] [address] Performed By: #### 3 3762-6, TNT ####[facility] ARLEEN [id number] [address] [place] [address] [place] CNPEdelmira 04-30-2024 CNPN Telephone (CARCMN) MARTIN HENSON ([id number]) 1955 M Date Time Provider Department 04/30/24 [...] stress echo. I let him know Dr. Rosario referred him to genetic consultation for HOCM. I also let him know to please complete labs and holter monitor. He stated it will be difficult to come to [place] for holter monitor pickup/placement, so I let him know I will ask Dr. Rosario about a Zio Patch, which can be mailed to him. I will follow up with Dr. Rosario. Marita Elizondo RN Allergies As of Date: [...] PAIN-UNSPEC [M25.50] 05/20/2006 10/03/2006 SPRAIN SHOULDER/ARM NOS [[id number]] 05/20/2006 10/03/2006 Complete rupture of rotator cuff [...] Status:Closed by MARITA ELIZONDO on 04/30/24 Normal [facility] CBC W/Diff, Automatedon 08-2 Absolute Lymph 1.78 X10 3/uL Normal 0.83-4.51 [facility] Comment on above: Performed By: #### L 100.0100, L500.4050, L501.9910, L500.4100, L506.1000 #### [facility] [address] [place], [address] Absolute Neut 3.8 X10 3/uL Normal 2.0-7.7 [facility] Comment on above: Performed By: #### L 100.0100, L500.4050, L501.9910, L500.4100, L506.1000 #### [facility] [address] [place], [address] Basophils/100 WBC (Bld) 1.0 % Normal 0-1 [facility] Comment on above: Performed By: #### L 100.0100, L500.4050, L501.9910, L500.4100, L506.1000 #### [facility] [address] [place], [address] Eosinophils/100 WBC (Bld) 4.8 % Normal 0-5 [facility] Comment on above: Performed By: #### L 100.0100, L500.4050, L501.9910, L500.4100, L506.1000 #### [facility] [address] [place], [address] Erythrocyte distribution width (RBC) [Ratio] 12.6 % Normal 11.6-14.6 [facility] Comment on above: Performed By: #### L 100.0100, L500.4050, L501.9910, L500.4100, L506.1000 #### [facility] [address] [place], [address] Hematocrit (Bld) [Volume fraction] 49.7 % Normal 40-54 [facility] Comment on above: Performed By: #### L 100.0100, L500.4050, L501.9910, L500.4100, L506.1000 #### [facility] [address] [place], [address] Hemoglobin (Bld) [Mass/Vol] 16.4 g/dL Normal 13.0-16.5 [facility] Comment on above: Performed By: #### L 100.0100, L500.4050, L501.9910, L500.4100, L506.1000 #### [facility] [address] [place], [address] IG% 0.300 Normal 0.0-0.9 [facility] Comment on above: Result Comment: IG% - Immature Granulocytes (promyelocytes, myelocytes and metamyelocytes) > 1% indicates that a LEFT SHIFT is Present. Performed By: #### L 100.0100, L500.4050, L501.9910, L500.4100, L506.1000 #### [facility] [address] [place], [address] Lymphocytes/100 WBC (Bld) 26.6 % Normal 19-41 [facility] Comment on above: Performed By: #### L 100.0100, L500.4050, L501.9910, L500.4100, L506.1000 #### [facility] [address] [place], [address] MCH (RBC) [Entitic mass] 30.1 pg Normal 27.0-32.0 [facility] Comment on above: Performed By: #### L 100.0100, L500.4050, L501.9910, L500.4100, L506.1000 #### [facility] [address] [place], [address] MCHC (RBC) [Mass/Vol] 33.0 g/dL Normal 32-36 [facility] Comment on above: Performed By: #### L 100.0100, L500.4050, L501.9910, L500.4100, L506.1000 #### [facility] [address] [place], [address] MCV (RBC) [Entitic vol] 91.2 fL Normal 80-94 [facility] Comment on above: Performed By: #### L 100.0100, L500.4050, L501.9910, L500.4100, L506.1000 #### [facility] [address] [place], [address] Monocytes/100 WBC (Bld) 9.9 % Normal 0-10 [facility] Comment on above: Performed By: #### L 100.0100, L500.4050, L501.9910, L500.4100, L506.1000 #### [facility] [address] [place], [address] Neutrophils/100 WBC (Bld) 57.4 % Normal 47-70 [facility] Comment on above: Performed By: #### L 100.0100, L500.4050, L501.9910, L500.4100, L506.1000 #### [facility] [address] [place], [address] Nucleated RBC (Bld) [#/Vol] 0 10*3/uL Normal 0-5 [facility] Comment on above: Performed By: #### L 100.0100, L500.4050, L501.9910, L500.4100, L506.1000 #### [facility] [address] [place], [address] Platelet mean volume (Bld) [Entitic vol] 10.4 fL Normal 6.2-12.0 [facility] Comment on above: Performed By: #### L 100.0100, L500.4050, L501.9910, L500.4100, L506.1000 #### [facility] [address] [place], [address] Platelets (Bld) [#/Vol] 142 10*3/uL Low 150-450 [facility] Comment on above: Performed By: #### L 100.0100, L500.4050, L501.9910, L500.4100, L506.1000 #### [facility] [address] [place], [address] RBC (Bld) [#/Vol] 5.45 10*6/uL Normal 4.6-6.2 [facility] Comment on above: Performed By: #### L 100.0100, L500.4050, L501.9910, L500.4100, L506.1000 #### [facility] [address] [place], [address] RDW SD 42.1 fl Normal 35.1-43.9 [facility] Comment on above: Performed By: #### L 100.0100, L500.4050, L501.9910, L500.4100, L506.1000 #### [facility] [address] [place], [address] WBC (Bld) [#/Vol] 6.7 10*3/uL Normal 4.4-11.0 [facility] Comment on above: Performed By: #### L 100.0100, L500.4050, L501.9910, L500.4100, L506.1000 #### [facility] [address] [place], [address] [facility] 04-29-2024 Albumin [Mass/Vol] 3.9 g/dL Normal 3.2-5.0 [facility] Comment on above: Performed By: #### L 100.0100, L500.4050, L501.9910, L500.4100, L506.1000 #### [facility] [address] [place], [address] Albumin/Globulin [Mass ratio] 1.2 {ratio} Normal 0.9-2.4 [facility] Comment on above: Performed By: #### L 100.0100, L500.4050, L501.9910, L500.4100, L506.1000 #### [facility] [address] [place], [address] ALK P 87 U/L Normal 45-117 [facility] Comment on above: Performed By: #### L 100.0100, L500.4050, L501.9910, L500.4100, L506.1000 #### [facility] [address] [place], [address] ALT [Catalytic activity/Vol] 53 U/L Normal 16-61 [facility] Comment on above: Performed By: #### L 100.0100, L500.4050, L501.9910, L500.4100, L506.1000 #### [facility] [address] [place], [address] AST [Catalytic activity/Vol] 26 U/L Normal 15-37 [facility] Comment on above: Performed By: #### L 100.0100, L500.4050, L501.9910, L500.4100, L506.1000 #### [facility] [address] [place], [address] Bilirubin [Mass/Vol] 0.80 mg/dL Normal 0.20-1.00 [facility] Comment on above: Result Comment: For patients on eltrombopag therapy, use of Dimension Victor TBIL is not recommended. Performed By: #### L 100.0100, L500.4050, L501.9910, L500.4100, L506.1000 #### [facility] [address] [place], [address] BUN/CRE 16.7 RATIO Normal 10-20 [facility] Comment on above: Performed By: #### L 100.0100, L500.4050, L501.9910, L500.4100, L506.1000 #### [facility] [address] [place], [address] CA,Total 9.3 mg/dL Normal 8.5-10.1 [facility] Comment on above: Performed By: #### L 100.0100, L500.4050, L501.9910, L500.4100, L506.1000 #### [facility] [address] [place], [address] Chloride [Moles/Vol] 106 mmol/L Normal 98-107 [facility] Comment on above: Performed By: #### L 100.0100, L500.4050, L501.9910, L500.4100, L506.1000 #### [facility] [address] [place], [address] CO2 [Moles/Vol] 29.0 mmol/L Normal 21.0-32.0 [facility] Comment on above: Performed By: #### L 100.0100, L500.4050, L501.9910, L500.4100, L506.1000 #### [facility] [address] [place], [address] Creatinine [Mass/Vol] 1.14 mg/dL Normal 0.70-1.30 [facility] Comment on above: Result Comment: The validity of the calculated GFR GFRAA in patients over 70 years has not been determined. Clinical correlation is essential. Performed By: #### L 100.0100, L500.4050, L501.9910, L500.4100, L506.1000 #### [facility] [address] [place], [address] EST GFR - AA 82 mL/min Normal >60 [facility] Comment on above: Result Comment: Afri can Yemeni GFR Calc Performed By: #### L 100.0100, L500.4050, L501.9910, L500.4100, L506.1000 #### [facility] [address] [place], [address] GAP 3 Low 5-15 [facility] Comment on above: Performed By: #### L 100.0100, L500.4050, L501.9910, L500.4100, L506.1000 #### [facility] [address] [place], [address] GFR/1.73 sq M.predicted among non-blacks MDRD (S/P/Bld) [Vol rate/Area] 68 mL/min/{1.73_m2} Normal >60 [facility] Comment on above: Result Comment: Non- GFR Calc Performed By: #### L 100.0100, L500.4050, L501.9910, L500.4100, L506.1000 #### [facility] [address] [place], [address] Globulin (S) [Mass/Vol] 3.3 g/dL Normal 2.2-4.2 [facility] Comment on above: Performed By: #### L 100.0100, L500.4050, L501.9910, L500.4100, L506.1000 #### [facility] [address] [place], [address] Glucose [Mass/Vol] 116 mg/dL High 74-106 [facility] Comment on above: Result Comment: Fast ing Glucose result from 100 to 125 mg/dL suggests IMPAIRED HOMEOSTASIS per A.D.A. criteria. Performed By: #### L 100.0100, L500.4050, L501.9910, L500.4100, L506.1000 #### [facility] [address] [place], [address] Potassium [Moles/Vol] 5.1 mmol/L Normal 3.5-5.1 [facility] Comment on above: Performed By: #### L 100.0100, L500.4050, L501.9910, L500.4100, L506.1000 #### [facility] [address] [place], [address] Sodium [Moles/Vol] 138 mmol/L Normal 136-145 [facility] Comment on above: Performed By: #### L 100.0100, L500.4050, L501.9910, L500.4100, L506.1000 #### [facility] [address] [place], [address] T PROT 7.2 g/dL Normal 6.4-8.2 [facility] Comment on above: Performed By: #### L 100.0100, L500.4050, L501.9910, L500.4100, L506.1000 #### [facility] [address] [place], [address] Urea nitrogen [Mass/Vol] 19 mg/dL High 7-18 [facility] Comment on above: Performed By: #### L 100.0100, L500.4050, L501.9910, L500.4100, L506.1000 #### [facility] [address] [place], [address] Lipid Profileon 04-29-2024 Cholesterol [Mass/Vol] 125 mg/dL Normal 200 [facility] Comment on above: Result Comment: <200 mg/dL Desirable 200-240 mg/dL Borderline >240 mg/dL High Risk Performed By: #### L 100.0100, L500.4050, L501.9910, L500.4100, L506.1000 #### [facility] [address] [place], [address] Cholesterol in HDL [Mass/Vol] 31 mg/dL Low [facility] Comment on above: Result Comment: The drugs N-Acetylcysteine and Metamizole may falsely depress this assay. Reference Range HDL <40 mg/dL Low HDL Cholesterol HDL >or= 60 mg/dL High HDL Cholesterol Performed By: #### L 100.0100, L500.4050, L501.9910, L500.4100, L506.1000 #### [facility] [facility] [address] [place], [address] Cholesterol in LDL [Mass/Vol] 66 mg/dL Normal 0-130 [facility] Comment on above: Performed By: #### L 100.0100, L500.4050, L501.9910, L500.4100, L506.1000 #### [facility] [address] [place], [address] Cholesterol in VLDL [Mass/Vol] 28 mg/dL Normal 5-40 [facility] Comment on above: Performed By: #### L 100.0100, L500.4050, L501.9910, L500.4100, L506.1000 #### [facility] [address] [place], [address] Triglyceride [Mass/Vol] 142 mg/dL Normal [facility] Comment on above: Result Comment: The drugs N-Acetylcysteine and Metamizole may falsely depress this assay. Serum Triglycerides Reference Interval Normal <150 mg/dL Borderline high 150 - 199 mg/dL High 200 - 499 mg/dL Very High > or = 500 mg/dL Performed By: #### L 100.0100, L500.4050, L501.9910, L500.4100, L506.1000 #### [facility] [address] [place], [address] PSA,Total - Annual Screenon 04-29-2024 PSA,TOT SCREEN 1.53 ng/mL Normal 0.00-4.00 [facility] Comment on above: Result Comment: This test was performed using the TPSA assay method for the Telespree chemistry system. Values obtained with different assay methods cannot be used interchangably. When changing PSA assays in the course of monitoring a patient, additional sequential testing should be carried out to confirm baseline values. Performed By: #### L 100.0100, L500.4050, L501.9910, L500.4100, L506.1000 ####[facility] [address] [place], [address] Vitamin D,25 Hydroxyon 04-29 Vitamin D 25-OH 62.1 ng/mL Normal [facility] Comment on above: Result Comment: Megha min D 25(OH) Status Range Deficiency <20 ng/mL (50nmol/L) Insufficiency 20 - 30 ng/mL (50 - 75 nmol/L) Sufficiency 30 - 100 ng/mL (75 - 250 nmol/L) Toxicity >100 ng/mL (>250 nmol/L) Performed By: #### L 100.0100, L500.4050, L501.9910, L500.4100, L506.1000 #### [facility] [address] [place], [place], [address] CREATININE BLDon 04-28-2024 Creatinine [Mass/Vol] 1.01 mg/dL Normal 0.73-1.22 [facility] Comment on above: Order Comment: Speci men Type: BLOOD SPECIMENOrdering Facility: [facility] Address: [address] [place] [address] Performed By: #### C RET1 ####[facility] [id number] [place] [address] [place] Creatinine and Glomerular filtration rate.predicted panel (S/P/Bld) 81 mL/min/1.73m??? Normal >=60 [facility] Comment on above: Order Comment: Speci men Type: BLOOD SPECIMENOrdering Facility: [facility] Address: [address] [place] [address] Result Comment: Suzi mated Glomerular Filtration Rate [...] actual GFR. Performed By: #### C RET1 ####[facility] [id number] [place] [address] [place] STRESS ECHO TREADMILLon 08-2 Stress Heel Lift Gouger Report: Stress Echo [facility] Date of service: 04/28/2024 12:12:51 PM Supervising physician: Nnamdi Adam MD PATIENT: Name: MR. MARTIN HENSON Age: 68 years Gender: M The supervising physician was in the department and immediately available. Final ------ Echocardiography Report: Stress Echo [facility] Date of service: 04/28/2024 12:12:51 PM Ordering physician: DEENA FRANCOIS Indication: Hypertrophic obstructive cardiomyopathy Technologist: Alexia Armando [facility] Interpreting physician: John Austin MD PATIENT: [...] Final ------ Stress ECG Report: Stress Echo [facility] Date of service: 04/28/2024 12:12:51 PM Ordering physician: DEENA FRANCOIS records management specialist: Rozina Holly Print Machine Operator: Marita Rodriguez Interpreting physician: John Austin MD [...] 168/84 mmHg. The double product achieved was [id number]. Previous cardiovascular interventions: Aortic valve replacement (2022) [...] +-----+ +--- ------+--- (more content not included)... [facility] STRESS ECHO TREADMILL Stress Heel Lift Gouger Report: Stress Echo [facility] Date of service: 04/28/2024 12:12:51 PM Supervising physician: Nnamdi Adam MD PATIENT: Name: MR. MARTIN HENSON Age: 68 years Gender: M The supervising physician was in the department and immediately available. Final ------ Echocardiography Report: Stress Echo [facility] Date of service: 04/28/2024 12:12:51 PM Ordering physician: DEENA FRANCOIS Indication: Hypertrophic obstructive cardiomyopathy Technologist: Alexia Armando [facility] Interpreting physician: John Austin MD PATIENT: [...] Final ------ Stress ECG Report: Stress Echo [facility] Date of service: 04/28/2024 12:12:51 PM Ordering physician: DEENA FRANCOIS records management specialist: Rozina Holly Print Machine Operator: Marita Rodriguez Interpreting physician: John Austin MD [...] 168/84 mmHg. The double product achieved was [id number]. Previous cardiovascular interventions: Aortic valve replacement (2022) [...] +------+ +--- +---+---+ (more content not included)... [facility]EN[facility] ([id number]) 1955 M Date Time Provider Department 04/27/24 [facility] During your visit today, we recorded the following information about you: Marita Rodriguez RN 04/27/2024 1:56 PM Signed Spoke with patient regarding reminder for stress test tomorrow and given instructions and reviewed to take all medications including metoprolol as normal. Allergies As of Date: 04/27/2024 (No Known Allergies) Date Reviewed: 03/25/2024 Reviewed by: Lester Lewis, MARCUS - Fully Assessed Reason for Visit: Reminder Call [[id number]] Prescriptions as of 04/27/2024 - Telmisartan 20 [...] PAIN-UNSPEC [M25.50] 05/20/2006 10/03/2006 SPRAIN SHOULDER/ARM NOS [[id number]] 05/20/2006 10/03/2006 Complete rupture of rotator cuff [...] Encounter Status:Closed by MARITA RODRIGUEZ on 04/27/24 [facility] Fernando 04-20-2024 [facility] Telephone (CARCMN) MARTIN HENSON ([id number]) 1955 M Date Time Provider Department 04/20/24 DEENA FRANCOIS During your visit today, we recorded the following information about you: Garima Garcia 04/20/2024 10:17 AM Signed April 20, 2024 Patient Contact Number: [phone] (home) [phone] (work) Patient last seen within the last year: Yes Date of last office visit: 03/25/24 Reason For Call: Blood Pressure Changes Patient called to give an update on his Blood Pressures. AM PM 04/12 128/85 117/84 04/13 116/84 114/81 04/14 122/83 ` 119/81 04/15 116/84 104/76 04/16 121/81 133/92 04/17 114/79 106/70 / 120/85 133/87 His BP machine said he had an irregular HR a few times. He's feeling pretty good, occasional tiredness. Physician: Deena Francois MD Patient was informed that non-urgent calls may be returned within the next three business days. Yes Lester Kaur RN 04/23/2024 2:31 PM Signed Excellent numbers. [...] PAIN-UNSPEC [M25.50] 05/20/2006 10/03/2006 SPRAIN SHOULDER/ARM NOS [[id number]] 05/20/2006 10/03/2006 Complete rupture of rotator cuff [...] Encounter Status:Closed by GARIMA GARCIA on 04/23/24 [facility] CNPEdelmira 04-01-2024 CNPN Telephone (CARCMN) SENGMARTIN Kapadia ([id number]) 1955 M Date Time Provider Department 04/01/24 DEENA FRANCOIS [facility] During your visit today, we recorded the following information about you: Marita Elizondo RN 04/01/2024 10:17 AM Signed Deena Francois MD [facility] Clinical Nurse Phone Pool Please, let Martin know that I have seen his Echo: [...] Holter. Thank you to let him know. AH Messaged patient with information and instructions from Dr. Rosario. Marita Elizondo RN Allergies As of Date: 04/01/2024 (No Known Allergies) Date Reviewed: 03/25/2024 Reviewed by: Lester Lewis, MARCUS - Fully Assessed Prescriptions as of 04/01/2024 [...] PAIN-UNSPEC [M25.50] 05/20/2006 10/03/2006 SPRAIN SHOULDER/ARM NOS [[id number]] 05/20/2006 10/03/2006 Complete rupture of rotator cuff [...] Encounter Status:Closed by MARITA ELIZONDO on 04/01/24 [facility] CNOVon 03-25-2024 CNOV Office Visit (CARCMN ) MARTIN HENSON ([id number]) 1955 M Date Time Provider Department 03/25/24 2:45 PM DEENA FRANCOIS During your visit today, we recorded the following information about you: Pulse Blood pressure Weight Height 61/minute 147/86 107 kg 1.854 m Deena Francois MD 06/05/2024 10:41 AM Addendum Heart, Vascular and Thoracic [facility] Department of Cardiovascular Medicine SECTION OF CLINICAL CARDIOLOGY OUTPATIENT VISIT DATE March 25, 2024 OUTPATIENT VISIT TYPE ESTABLISHED PRIMARY CARE PHYSICIAN: ABDIEL MATHEWS [facility] [place] [address] REFERRING [place]: [place] [address] [place] [address] CHIEF COMPLAINT: Follow up HISTORY OF PRESENT [...] AANDOx3 CARDIOVAS (more content not included)... Normal [facility] ECG COMPLETEon 03-25-2024 ECG COMPLETE Ventricular Rate : 5 3 BPM Atrial Rate : 53 BPM P-R Interval : 180 ms QRS Duration : 104 ms Q-T Interval : 482 ms QTC Calculation(Bazett) : 452 ms Calculated P Wright : 66 degrees Calculated R Wright : -4 degrees Calculated T Wright : 141 degrees SINUS BRADYCARDIA LEFT VENTRICULAR HYPERTROPHY WITH REPOLARIZATION ABNORMALITY ( R in aVL , Sokolow-Salcedo ) ABNORMAL ECG Confirmed by DEENA FRANCOIS MD ([id number]) on 04/21/2024 3:45:47 PM NAME : MARTIN HENSON PID : [id number] : 1955 Gender : Male Race : ORD : [id number] Procedure Date : Mar 25 2024 13:14:02 Edit Date : Apr 21 2024 15:45:51 Diagnosis: SINUS BRADYCARDIA LEFT VENTRICULAR HYPERTROPHY WITH REPOLARIZATION ABNORMALITY ( R in aVL , Sokolow-Salcedo ) ABNORMAL ECG Confirmed by DEENA FRANCOIS MD ([id number]) on 04/21/2024 3:45:47 PM Test Reason : Location : 314 : J14 Overread By : DEENA FRANCOIS MD Edited By : DEENA FRANCOIS MD Referred By : JASPREET FRANCOIS Acquired by : JOSÉ LUIS QIU [facility] ECHOon 03-25-2024 Echocardiography Echocardiography Report: Transthoracic Echo [facility] J1-5 Date of service: 03/25/2024 1:36:29 PM TECH Ordering physician: DEENA FRANCOIS Indication: Limited for LV gradients Technologist: Richelle Rendon Fellow: Denisse Cooper MD Interpreting physician: Darwin [...] * * * Final * * * [facility] [facility] : [id number] Normal [facility] CTA CHEST (GATED) W IVCONon 01-09-2024 CTA [...] SCANNER: out-patient Siemens Definition Force Dual source [id number] scanner PROTOCOL: Prospectively triggered helical high-pitch acquisitions [...] AORTIC DIMENSIONS: AORTIC ROOT: 4.5 cm measured vrfal-ci-ooezk No significant interval change mid ASCENDING THORACIC AORTA: 3.9 cm Interval decrease in size, prior diameter 4.5 cm mid AORTIC ARCH: 3.1 cm mid DESCENDING THORACIC AORTA: 2.8 cm limited upper ABDOMEN: unremarkable BONES and SOFT TISSUES: degenerative changes of the thoracic spine. Liquefier (topogram) images: No additional findings. IMPRESSION: AORTIC VALVE: AVR with bioprosthetic valve, which appears well seated. No leaflet calcification. AORTA: Aortoplasty no evidence of post-surgical complications.expected surgical changes surrounding the repaired segments of the aorta. Normal size repaired aorta. The remaining segments of the thoracic aorta are normal in size No acute aortic pathology. AORTIC ROOT: 4.5 cm measured soila-sb-qmehd No significant interval change mid ASCENDING THORACIC AORTA: 3.9 cm Interval decrease in size, prior diameter 4.5 cm CORONARY ANATOMY: normal origin of the coronary arteries. Mild calcified atherosclerotic changes of the coronary arteries. However, the current study is not optimized for coronary assessment. Wagon Driver Salesperson: REINALDO Transcribe Date/Time: Jan 09 2024 8:06A Dictated by : TORIN MOFFETT MD This examination was interpreted and the report reviewed and electronically signed by: TORIN MOFFETT MD on Jan 09 2024 10:43AM EST [id number] Normal [facility] CNOVon 01-08-2024 CNOV Office Visit (CARCMN ) MARTIN HENSON ([id number]) 1955 M Date Time Provider Department 01/08/24 3:15 PM DEENA FRANCOIS During your visit today, we recorded the following information about you: Pulse Respiration Blood pressure Weight 84/minute 14/minute 145/90 109.3 kg Deena Francois MD 03/27/2024 10:17 AM Addendum Heart, Vascular and Thoracic [facility] Department of Cardiovascular Medicine SECTION OF CLINICAL CARDIOLOGY OUTPATIENT VISIT DATE January 08, 2024 OUTPATIENT VISIT TYPE ESTABLISHED PRIMARY CARE PHYSICIAN: ABDIEL MATHEWS [address] [place] [address] REFERRING PHYSICIAN: Deena Francois MD [address] [facility] [address] CHIEF COMPLAINT: None, has just completed cardiac Rehab, good BPs in Rehab HISTORY OF PRESENT ILLNESS: Mr. Henson is a 68 year old male who presents today for a cardiovascular medicine follow-up visit , last seen on 09/18/2023: ------ Mr H. 67 yo with due to [...] Glasses, Hear (more content not included)... Normal [facility] CREATININE, BLOOD (POC)on Creatinine [Mass/Vol] 1.20 mg/dL 0.7 - 1.4 mg/dL [facility] eGFR (POCT) mL/min/1.73 m2 [facility] Location:Radiology [facility], [address] [place] [address], [address] [place] [address] POINT OF CARE [facility] ECHOon 01-08-2024 Echocardiography Echocardiography Report: Transthoracic Echo [facility] J35 Date of service: 01/08/2024 1:33:42 PM TECH Ordering physician: DEENA FRANCOIS Indication: S/P AVR, Ascending Ao repair (07/2023) Technologist: Marizol Nolan and Rita Hamm Interpreting physician: Ann Millard MD PATIENT: [...] #[id number]). There (more content not included)... Normal [facility] CNOVon 01-01-2024 CNOV Office Visit (MIRI) MARTIN HENSON ([id number]) 1955 M Date Time Provider Department 01/01/24 8:00 AM CARD REHAB PHASE 2 [facility] During your visit today, we recorded the following information about you: Pulse Blood pressure Weight 62/minute 130/84 109.8 kg Josiah Suh, shop welder 01/01/2024 8:25 AM Signed [facility] [...] Daily Exercise Log will be scanned into [email or web address] once it is completed. These can be [...] Plan, and education sessions covered. Josiah Suh, Break Off Worker Heart and Vascular [facility] Department of Cardiovascular Medicine Discharge [...] daily. No (more content not included)... Normal [facility] CNOVon 12-30-2023 CN Office Visit (MIRI) MARTIN HENSON ([id number]) 1955 M Date Time Provider Department 12/30/23 8:00 AM CARD REHAB PHASE 2 ALGER MIRI During your visit today, we recorded the following information about you: Katie Decker, Break Off Worker 12/30/2023 8:20 AM Signed [facility] Based Program [...] Daily Exercise Log will be scanned into [email or web address] once it is completed. These can be [...] Plan, and education sessions covered. Katie Decker, Break Off Worker Referring Provider: DEENA FRANCOIS [[id number]] Allergies As of Date: 12/30/2023 (No Active Allergies) Date Reviewed: 09/18/2023 Reviewed by: Pat Ye HUC - Fully Assessed Reason for Visit: Cardiac Rehab [[id number]] Primary Visit Diagnosis:S/P AVR (aortic valve replacement) [...] PAIN-UNSPEC [M25.50] 05/20/2006 10/03/2006 SPRAIN SHOULDER/ARM NOS [[id number]] 05/20/2006 10/03/2006 Complete rupture of rotator cuff [...] Encounter Status:Closed by KATIE DECKER on 12/30/23 [facility] 12-27-2023 [facility] Office Visit (MIRI) MARTIN HENSON ([id number]) 1955 M Date Time Provider Department 12/27/23 8:00 AM CARD REHAB PHASE 2 ALGER MIRI During your visit today, we recorded the following information about you: Josiah Suh, shop welder 12/27/2023 8:22 AM Signed [facility] [...] Daily Exercise Log will be scanned into [email or web address] once it is completed. These can be [...] Plan, and education sessions covered. Josiah Suh, Break Off Worker Referring Provider: DEENA FRANCOIS [[id number]] Allergies As of Date: 12/27/2023 (No Active [...] PAIN-UNSPEC [M25.50] 05/20/2006 10/03/2006 SPRAIN SHOULDER/ARM NOS [[id number]] 05/20/2006 10/03/2006 Complete rupture of rotator cuff [...] Encounter Status:Closed by JOSIAH SUH on 12/27/23 [facility] Office Visit (MIRI) HENSONMARTIN OMDI ([id number]) 1955 M Date Time Provider Department 12/25/23 8:00 AM CARD REHAB PHASE 2 ALGER MIRI During your visit today, we recorded the following information about you: Avelino Aburto, Break Off Worker 12/25/2023 8:23 AM Signed [facility] [...] Daily Exercise Log will be scanned into [email or web address] once it is completed. These can be [...] Plan, and education sessions covered. Avelino Aburto, Break Off Worker Referring Provider: DEENA FRANCOIS [[id number]] Allergies As of Date: 12/25/2023 (No Active [...] PAIN-UNSPEC [M25.50] 05/20/2006 10/03/2006 SPRAIN SHOULDER/ARM NOS [[id number]] 05/20/2006 10/03/2006 Complete rupture of rotator cuff [...] Encounter Status:Closed by AVELINO ABURTO on 12/25/23 [facility] 12-23-2023 [facility] Office Visit (MIRI) MARTIN HENSON ([id number]) 1955 M Date Time Provider Department 12/23/23 8:00 AM CARD REHAB PHASE 2 [facility] During your visit today, we recorded the following information about you: Katie Decker, Break Off Worker 12/23/2023 8:15 AM Signed [facility] [...] Daily Exercise Log will be scanned into [email or web address] once it is completed. These can be [...] Plan, and education sessions covered. Katie Decker, Break Off Worker Referring Provider: DEENA FRANCOIS [[id number]] Allergies As of Date: 12/23/2023 (No Active [...] PAIN-UNSPEC [M25.50] 05/20/2006 10/03/2006 SPRAIN SHOULDER/ARM NOS [[id number]] 05/20/2006 10/03/2006 Complete rupture of rotator cuff [...] Encounter Status:Closed by KATIE DECKER on 12/23/23 [facility] 12-20-2023 [facility] Office Visit (MIRI) SENGMARTIN ([id number]) 1955 M Date Time Provider Department 12/20/23 8:00 AM CARD REHAB PHASE 2 [facility] During your visit today, we recorded the following information about you: Josiah Suh, shop welder 12/20/2023 8:25 AM Signed [facility] [...] Daily Exercise Log will be scanned into [email or web address] once it is completed. These can be [...] Plan, and education sessions covered. Josiah Suh, Break Off Worker Referring Provider: DEENA FRANCOIS [[id number]] Allergies As of Date: 12/20/2023 (No Active [...] PAIN-UNSPEC [M25.50] 05/20/2006 10/03/2006 SPRAIN SHOULDER/ARM NOS [[id number]] 05/20/2006 10/03/2006 Complete rupture of rotator cuff [...] Encounter Status:Closed by JOSIAH SUH on 12/20/23 [facility] 12-18-2023 [facility] Office Visit (MIRI) MARTIN HENSON ([id number]) 1955 M Date Time Provider Department 12/18/23 8:00 AM CARD REHAB PHASE 2 [facility] During your visit today, we recorded the following information about you: Avelino Aburto, Break Off Worker 12/18/2023 8:22 AM Signed [facility] [...] Daily Exercise Log will be scanned into [email or web address] once it is completed. These can be [...] Plan, and education sessions covered. Avelino Aburto, Break Off Worker Referring Provider: DEENA FRANCOIS [[id number]] Allergies As of Date: 12/18/2023 (No Active Allergies) Date Reviewed: 09/18/2023 Reviewed by: Pat Ye HUC - Fully Assessed Reason for Visit: Cardiac Rehab [[id number]] Primary Visit Diagnosis:S/P AVR (aortic valve replacement) [...] PAIN-UNSPEC [M25.50] 05/20/2006 10/03/2006 SPRAIN SHOULDER/ARM NOS [[id number]] 05/20/2006 10/03/2006 Complete rupture of rotator cuff [...] Encounter Status:Closed [facility]23 [facility] Office Visit (MIRI) MARTIN HENSON ([id number]) 1955 M Date Time Provider Department 12/16/23 8:00 AM CARD REHAB PHASE 2 [facility] During your visit today, we recorded the following information about you: Katie Decker, Break Off Worker 12/16/2023 8:26 AM Signed [facility] [...] Daily Exercise Log will be scanned into [email or web address] once it is completed. These can be [...] Plan, and education sessions covered. Katie Decker, Break Off Worker Referring Provider: DEENA FRANCOIS [[id number]] Allergies As of Date: 12/16/2023 (No Active [...] PAIN-UNSPEC [M25.50] 05/20/2006 10/03/2006 SPRAIN SHOULDER/ARM NOS [[id number]] 05/20/2006 10/03/2006 Complete rupture of rotator cuff [...] Encounter Status:Closed by KATIE DECKER on 12/16/23 [facility] 12-13-2023 [facility] Office Visit (MIRI) MARTIN HENSON ([id number]) 1955 M Date Time Provider Department 12/13/23 8:00 AM CARD REHAB PHASE 2 ALGER MIRI During your visit today, we recorded the following information about you: Josiah Suh, shop welder 12/13/2023 8:29 AM Signed [facility] [...] cardiac rehabilitation. Patient has verbalized understanding of [place], angina, NTG education topic and the relation to disease managment. Patient's Daily Exercise Log will be scanned into [email or web address] once it is completed. These can be [...] Plan, and education sessions covered. Josiah Suh, Break Off Worker Referring Provider: DEENA FRANCOIS [[id number]] Allergies As of Date: 12/13/2023 (No Active Allergies) Date Reviewed: 09/18/2023 Reviewed by: Pat Ye HUC - Fully Assessed Reason for Visit: Cardiac Rehab [[id number]] Primary Visit Diagnosis:S/P AVR (aortic valve replacement) [...] PAIN-UNSPEC [M25.50] 05/20/2006 10/03/2006 SPRAIN SHOULDER/ARM NOS [[id number]] 05/20/2006 10/03/2006 Complete rupture of rotator cuff [...] Encounter Status:Closed by JOSIAH SUH on 12/13/23 [facility] 12-11-2023 [facility] Office Visit (MIRI) MARTIN HENSON ([id number]) 1955 M Date Time Provider Department 12/11/23 8:00 AM CARD REHAB PHASE 2 [facility] During your visit today, we recorded the following information about you: Avelino Aburto, Break Off Worker 12/11/2023 8:23 AM Signed [facility] [...] Daily Exercise Log will be scanned into [email or web address] once it is completed. These can be [...] Plan, and education sessions covered. Avelino Aburto, Break Off Worker Referring Provider: DEENA FRANCOIS [[id number]] Allergies As of Date: 12/11/2023 (No Active [...] PAIN-UNSPEC [M25.50] 05/20/2006 10/03/2006 SPRAIN SHOULDER/ARM NOS [[id number]] 05/20/2006 10/03/2006 Complete rupture of rotator cuff [...] Encounter Status:Closed by AVELINO ABURTO on 12/11/23 [facility] 12-09-2023 [facility] Office Visit (MIRI) MARTIN HENSON ([id number]) 1955 M Date Time Provider Department 12/09/23 8:00 AM CARD REHAB PHASE 2 [facility] During your visit today, we recorded the following information about you: Katie Decker, Break Off Worker 12/09/2023 8:22 AM Signed [facility] [...] Daily Exercise Log will be scanned into [email or web address] once it is completed. These can be [...] Plan, and education sessions covered. Katie Decker, Break Off Worker Referring Provider: DEENA FRANCOIS [[id number]] Allergies As of Date: 12/09/2023 (No Active [...] PAIN-UNSPEC [M25.50] 05/20/2006 10/03/2006 SPRAIN SHOULDER/ARM NOS [[id number]] 05/20/2006 10/03/2006 Complete rupture of rotator cuff [...] Encounter Status:Closed by KATIE DECKER on 12/09/23 [facility] 12-06-2023 [facility] Office Visit (MIRI) MARTIN HENSON ([id number]) 1955 M Date Time Provider Department 12/06/23 8:00 AM CARD REHAB PHASE 2 [facility] During your visit today, we recorded the following information about you: Pulse Blood pressure Weight 72/minute 120/78 110.7 kg Josiah Suh, shop welder 12/06/2023 8:27 AM [facility] [...] Daily Exercise Log will be scanned into [email or web address] once it is completed. These can be [...] Plan, and education sessions covered. 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 Normal [facility] 12-04-2023 [facility] Office Visit (MIRI) MARTIN HENSON ([id number]) 1955 M Date Time Provider Department 12/04/23 8:00 AM CARD REHAB PHASE 2 ALGER MIRI During your visit today, we recorded the following information about you: Avelino Aburto, Break Off Worker 12/04/2023 8:19 AM [facility] [...] Daily Exercise Log will be scanned into [email or web address] once it is completed. These can be [...] Plan, and education sessions covered. Avelino Aburto, Break Off Worker Referring Provider: DEENA FRANCOIS [[id number]] Allergies As of Date: 12/04/2023 (No Active Allergies) Date Reviewed: 09/18/2023 Reviewed by: Pat Ye HUC - Fully Assessed Reason for Visit: Cardiac Rehab [[id number]] Primary Visit Diagnosis:S/P AVR (aortic valve replacement) [...] PAIN-UNSPEC [M25.50] 05/20/2006 10/03/2006 SPRAIN SHOULDER/ARM NOS [[id number]] 05/20/2006 10/03/2006 Complete rupture of rotator cuff [...] Encounter Status:Closed by AVELINO ABURTO on 12/04/23 [facility] 12-02-2023 [facility] Office Visit (MIRI) MARTIN HENSON ([id number]) 1955 M Date Time Provider Department 12/02/23 8:00 AM CARD REHAB PHASE 2 LAVERNE CHERY During your visit today, we recorded the following information about you: Katie Decker, Break Off Worker 12/02/2023 8:16 AM [facility]igned [facility] [...] Daily Exercise Log will be scanned into [email or web address] once it is completed. These can be [...] Plan, and education sessions covered. Katie Decker Break Off Worker Referring Provider: DEENA FRANCOIS [[id number]] Allergies As of Date: 12/02/2023 (No Active Allergies) Date Reviewed: 09/18/2023 Reviewed by: Pat Ye HUC - Fully Assessed Reason for Visit: Cardiac Rehab [1025] Primary Visit Diagnosis:S/P AVR (aortic valve replacement) [...] PAIN-UNSPEC [M25.50] 05/20/2006 10/03/2006 SPRAIN SHOULDER/ARM NOS [[id number]] 05/20/2006 10/03/2006 Complete rupture of rotator cuff [...] Encounter Status:Closed by KATIE DECKER on 12/02/23 [facility] 11-29-2023 [facility] Office Visit (MIRI) MARTIN HENSON ([id number]) 1955 M Date Time Provider Department 11/29/23 8:00 AM CARD REHAB PHASE 2 [facility] During your visit today, we recorded the following information about you: Avelino Aburto, Break Off Worker 11/29/2023 8:26 AM [facility]igned [facility] [...] Daily Exercise Log will be scanned into [email or web address] once it is completed. These can be [...] Plan, and education sessions covered. Avelino Aburto, Break Off Worker Referring Provider: DEENA FRANCOIS [[id number]] Allergies As of Date: 11/29/2023 (No Active [...] PAIN-UNSPEC [M25.50] 05/20/2006 10/03/2006 SPRAIN SHOULDER/ARM NOS [[id number]] 05/20/2006 10/03/2006 Complete rupture of rotator cuff [...] Encounter Status:Closed by AVELINO ABURTO on 11/29/23 [facility] CNOVon 11-27-2023 [facility] Office Visit (MIRI) MARTIN HENSON ([id number]) 1955 M Date Time Provider Department 11/27/23 8:00 AM CARD REHAB PHASE 2 L[facility]ERNE CHERY During your visit today, we recorded the following information about you: Avelino Aburto, Break Off Worker 11/27/2023 8:26 AM Signed [facility] Based [...] Daily Exercise Log will be scanned into [email or web address] once it is completed. These can be [...] Plan, and education sessions covered. Avelino Aburto, Break Off Worker Referring Provider: DEENA FRANCOIS [[id number]] Allergies As of Date: 11/27/2023 (No Active Allergies) Date Reviewed: 09/18/2023 Reviewed by: Pat Ye HUC - Fully Assessed Reason for Visit: Cardiac Rehab [3951] Primary Visit Diagnosis:S/P AVR (aortic valve replacement) [...] PAIN-UNSPEC [M25.50] 05/20/2006 10/03/2006 SPRAIN SHOULDER/ARM NOS [[id number]] 05/20/2006 10/03/2006 Complete rupture of rotator cuff [...] Encounter Status:Closed by AVELINO ABURTO on 11/27/23 [facility] 11-25-2023 [facility] Office Visit (MIRI) MARTIN HENSON ([id number]) 1955 M Date Time Provider Department 11/25/23 8:00 AM CARD REHAB PHASE 2 ALGER MRII During your visit today, we recorded the following information about you: Katie Decker, Break Off Worker 11/25/2023 8:10 AM [facility] [...] Daily Exercise Log will be scanned into [email or web address] once it is completed. These can be [...] Plan, and education sessions covered. Katie Decker, Break Off Worker Referring Provider: DEENA FRANCOIS [[id number]] Allergies As of Date: 11/25/2023 (No Active [...] PAIN-UNSPEC [M25.50] 05/20/2006 10/03/2006 SPRAIN SHOULDER/ARM NOS [[id number]] 05/20/2006 10/03/2006 Complete rupture of rotator cuff [...] Encounter Status:Closed by KATIE DECKER on 11/25/23 [facility] 11-22-2023 [facility] Office Visit (MIRI) HENSONMARTIN VELEZ ([id number]) 1955 M Date Time Provider Department 11/22/23 8:00 AM CARD REHAB PHASE 2 [facility] MIRI During your visit today, we recorded the following information about you: Josiah Suh, shop welder 11/22/2023 8:15 AM [facility]igned [facility] [...] Daily Exercise Log will be scanned into [email or web address] once it is completed. These can be [...] Plan, and education sessions covered. Josiah Suh, Break Off Worker Referring Provider: DEENA FRANCOIS [[id number]] Allergies As of Date: 11/22/2023 (No Active Allergies) Date Reviewed: 09/18/2023 Reviewed by: Pat Ye HUC - Fully Assessed Reason for Visit: Cardiac Rehab [2171] Primary Visit Diagnosis:S/P AVR [Z95.2] Prescriptions as [...] PAIN-UNSPEC [M25.50] 05/20/2006 10/03/2006 SPRAIN SHOULDER/ARM NOS [[id number]] 05/20/2006 10/03/2006 Complete rupture of rotator cuff [...] Encounter Status:Closed by JOSIAH SUH on 11/22/23 [facility] 11-20-2023 [facility] Office Visit (MIRI) MARTIN HENSON ([id number]) 1955 M Date Time Provider Department 11/20/23 8:00 AM CARD REHAB PHASE 2 ALGER MIRI During your visit today, we recorded the following information about you: Avelino Aburto, Break Off Worker 11/20/2023 8:22 AM Signed [facility] [...] Daily Exercise Log will be scanned into [email or web address] once it is completed. These can be [...] Plan, and education sessions covered. Avelino Aburto, Break Off Worker Referring Provider: DEENA FRANCOIS [[id number]] Allergies As of Date: 11/20/2023 (No Active [...] PAIN-UNSPEC [M25.50] 05/20/2006 10/03/2006 SPRAIN SHOULDER/ARM NOS [[id number]] 05/20/2006 10/03/2006 Complete rupture of rotator cuff [...] 09/18/2023 Encounter Status:Closed [facility] Office Visit (MIRI) HENSONMARTIN MODI ([id number]) 1955 M Date Time Provider Department 11/18/23 8:00 AM CARD REHAB PHASE 2 ALGER MIRI During your visit today, we recorded the following information about you: Katie Decker, Break Off Worker 11/18/2023 8:19 AM [facility]igned [facility] [...] Daily Exercise Log will be scanned into [email or web address] once it is completed. These can be [...] Plan, and education sessions covered. Katie Decker Break Off Worker Referring Provider: DEENA FRANCOIS [[id number]] Allergies As of Date: 11/18/2023 (No Active Allergies) Date Reviewed: 09/18/2023 Reviewed by: Pat Ye HUC - Fully Assessed Reason for Visit: Cardiac Rehab [6231] Primary Visit Diagnosis:S/P AVR (aortic valve replacement) [...] PAIN-UNSPEC [M25.50] 05/20/2006 10/03/2006 SPRAIN SHOULDER/ARM NOS [[id number]] 05/20/2006 10/03/2006 Complete rupture of rotator cuff [...] Encounter Status:Closed by KATIE DECKER on 11/18/23 [facility] 11-15-2023 [facility] Office Visit (MIRI) MARTIN HENSON ([id number]) 1955 M Date Time Provider Department 11/15/23 8:00 AM CARD REHAB PHASE 2 ALGER MIRI During your visit today, we recorded the following information about you: Avelino Aburto, Break Off Worker 11/15/2023 8:08 AM Signed Cardiac Rehabilitation [facility] Based Program Supervising Physician: Len Menendez [...] Daily Exercise Log will be scanned into [email or web address] once it is completed. These can be [...] Plan, and education sessions covered. Avelino Aburto, Break Off Worker Referring Provider: DEENA FRANCOIS [[id number]] Allergies As of Date: 11/15/2023 (No Active [...] PAIN-UNSPEC [M25.50] 05/20/2006 10/03/2006 SPRAIN SHOULDER/ARM NOS [[id number]] 05/20/2006 10/03/2006 Complete rupture of rotator cuff [...] Encounter Status:Closed by AVELINO ABURTO on 11/15/23 [facility] CNOVon 11-13-2023 [facility] Office Visit (MIRI) SENGMARTIN Kapadia ([id number]) 1955 M Date Time Provider Department 11/13/23 8:00 AM CARD REHAB PHASE 2 ALGER MIRI During your visit today, we recorded the following information about you: Avelino Aburto, Break Off Worker 11/13/2023 8:16 AM Signed [facility] [...] Daily Exercise Log will be scanned into [email or web address] once it is completed. These can be [...] Plan, and education sessions covered. Avelino Aburto, Break Off Worker Referring Provider: DEENA FRANCOIS [[id number]] Allergies As of Date: 11/13/2023 (No Active [...] PAIN-UNSPEC [M25.50] 05/20/2006 10/03/2006 SPRAIN SHOULDER/ARM NOS [[id number]] 05/20/2006 10/03/2006 Complete rupture of rotator cuff [...] Encounter Status:Closed by AVELINO ABURTO on 11/13/23 [facility] 11-11-2023 [facility] Office Visit (MIRI) MARTIN HENSON ([id number]) 1955 M Date Time Provider Department 11/11/23 8:00 AM CARD REHAB PHASE 2 [facility] During your visit today, we recorded the following information about you: Katie Decker, Break Off Worker 11/11/2023 8:16 AM Signed Cardiac Rehabilitation [facility] Based Program Supervising Physician: Len Menendez [...] Daily Exercise Log will be scanned into [email or web address] once it is completed. These can be [...] Plan, and education sessions covered. Katie Decker, Break Off Worker Referring Provider: DEENA FRANCOIS [[id number]] Allergies As of Date: 11/11/2023 (No Active [...] PAIN-UNSPEC [M25.50] 05/20/2006 10/03/2006 SPRAIN SHOULDER/ARM NOS [[id number]] 05/20/2006 10/03/2006 Complete rupture of rotator cuff [...] Encounter Status:Closed by KATIE DECKER on 11/11/23 [facility] 11-08-2023 [facility] Office Visit (MIRI) MARTIN HENSON Kang ([id number]) 1955 M Date Time Provider Department 11/08/23 8:00 AM CARD REHAB PHASE 2 [facility] During your visit today, we recorded the following information about you: Pulse Blood pressure Weight 73/minute 128/76 111.1 kg Avelino Aburto, Break Off Worker 11/08/2023 8:14 AM [facility]ign [facility] Based Program Supervising [...] Daily Exercise Log will be scanned into [email or web address] once it is completed. These can be [...] Plan, and education sessions covered. Avelino Aburto, Break Off Worker Patient's 30 day ITP located in 30 day doc flowsheet. Referring Provider: DEENA FRANCOIS [[id number]] Allergies As of Date: 11/08/2023 (No Active Allergies) Date Reviewed: 09/18/2023 Reviewed by: Pat Ye HUC - Fully Assessed Reason for Visit: Cardiac Rehab [3551] Cmt: 30 day assessment Primary Visit Diagnosis:S/P [...] PAIN-UNSPEC [M25.50] 05/20/2006 10/03/2006 SPRAIN SHOULDER/ARM NOS [[id number]] 05/20/2006 10/03/2006 Complete rupture of rotator cuff [...] Encounter Status:Closed by AVELINO ABURTO on 11/08/23 [facility] 11-06-2023 [facility] Office Visit (MIRI) MARTIN HENSON ([id number]) 1955 M Date Time Provider Department 11/06/23 8:00 AM CARD REHAB PHASE 2 [facility] During your visit today, we recorded the following information about you: Josiah Suh, shop welder 11/06/2023 8:19 AM Signed [facility] [...] Daily Exercise Log will be scanned into [email or web address] once it is completed. These can be [...] Plan, and education sessions covered. Josiah Suh, Break Off Worker Referring Provider: DEENA FRANCOIS [[id number]] Allergies As of Date: 11/06/2023 (No Active [...] PAIN-UNSPEC [M25.50] 05/20/2006 10/03/2006 SPRAIN SHOULDER/ARM NOS [[id number]] 05/20/2006 10/03/2006 Complete rupture of rotator cuff [...] Encounter Status:Closed by JOSIAH SUH on 11/06/23 [facility] 11-04-2023 [facility] Office Visit (MIRI) MARTIN HENSON ([id number]) 1955 M Date Time Provider Department 11/04/23 8:00 AM CARD REHAB PHASE 2 [facility] During your visit today, we recorded the following information about you: Katie Decker, Break Off Worker 11/04/2023 8:21 AM Signed [facility] [...] Daily Exercise Log will be scanned into [email or web address] once it is completed. These can be [...] Treatment Plan, and education sessions covered. Katie Shelia, Break Off Worker Referring Provider: DEENA FRANCOIS [[id number]] Allergies As of Date: 11/04/2023 (No Active [...] PAIN-UNSPEC [M25.50] 05/20/2006 10/03/2006 SPRAIN SHOULDER/ARM NOS [[id number]] 05/20/2006 10/03/2006 Complete rupture of rotator cuff [...] Encounter Status:Closed by KATIE DECKER on 11/04/23 [facility] 11-01-2023 [facility] Office Visit (MIRI) MARTIN HENSON ([id number]) 1955 M Date Time Provider Department 11/01/23 8:00 AM CARD REHAB PHASE 2 [facility] During your visit today, we recorded the following information about you: Katie Decker, Break Off Worker 11/01/2023 8:01 AM Signed [facility] [...] rehabilitation. Patient has verbalized understanding of Angina, [place], NTG education topic and the relation to disease managment. Patient's Daily Exercise Log will be scanned into [email or web address] once it is completed. These can be [...] Plan, and education sessions covered. Katie Decker Break Off Worker Referring Provider: DEENA FRANCOIS [[id number]] Allergies As of Date: 11/01/2023 (No Active Allergies) Date Reviewed: 09/18/2023 Reviewed by: Pat Ye HUC - Fully Assessed Reason for Visit: Cardiac Rehab [5991] Primary Visit Diagnosis:S/P AVR (aortic valve replacement) [...] PAIN-UNSPEC [M25.50] 05/20/2006 10/03/2006 SPRAIN SHOULDER/ARM NOS [[id number]] 05/20/2006 10/03/2006 Complete rupture of rotator cuff [...] Encounter Status:Closed by KATIE DECKER on 11/01/23 [facility] 10-30-2023 [facility] Office Visit (MIRI) MARTIN HENSON ([id number]) 1955 M Date Time Provider Department 10/30/23 8:00 AM CARD REHAB PHASE 2 [facility] During your visit today, we recorded the following information about you: Katie Decker, Break Off Worker 10/30/2023 8:09 AM Signed [facility] [...] Daily Exercise Log will be scanned into [email or web address] once it is completed. These can be [...] Plan, and education sessions covered. Katie Decker, Break Off Worker Referring Provider: DEENA FRANCOIS [[id number]] Allergies As of Date: 10/30/2023 (No Active [...] PAIN-UNSPEC [M25.50] 05/20/2006 10/03/2006 SPRAIN SHOULDER/ARM NOS [[id number]] 05/20/2006 10/03/2006 Complete rupture of rotator cuff [...] Encounter Status:Closed [facility] K[facility] DECKER [facility] Office Visit (MIRI) MARTIN HENSON ([id number]) 1955 M Date Time Provider Department 10/28/23 8:00 AM CARD REHAB PHASE 2 [facility] MIRI During your visit today, we recorded the following information about you: Avelino Aburto, Break Off Worker 10/28/2023 8:12 AM Signed [facility] [...] Daily Exercise Log will be scanned into [email or web address] once it is completed. These can be [...] Plan, and education sessions covered. Avelino Aburto, Break Off Worker Referring Provider: DEENA FRANCOIS [[id number]] Allergies As of Date: 10/28/2023 (No Active Allergies) Date Reviewed: 09/18/2023 Reviewed by: Pat Ye HUC - Fully Assessed Reason for Visit: Cardiac Rehab [9241] Primary Visit Diagnosis:S/P AVR (aortic valve replacement) [...] PAIN-UNSPEC [M25.50] 05/20/2006 10/03/2006 SPRAIN SHOULDER/ARM NOS [[id number]] 05/20/2006 10/03/2006 Complete rupture of rotator cuff [...] Encounter Status:Closed by AVELINO ABURTO [facility]28/23 [facility] Office Visit (MIRI) MARTIN HENSON ([id number]) 1955 M Date Time Provider Department 10/25/23 8:00 AM CARD REHAB PHASE 2 [facility] During your visit today, we recorded the following information about you: Avelino Aburto, Break Off Worker 10/25/2023 8:19 AM Signed [facility] [...] Daily Exercise Log will be scanned into [email or web address] once it is completed. These can be [...] Plan, and education sessions covered. Avelino Aburto, Break Off Worker Referring Provider: DEENA FRANCOIS [[id number]] Allergies As of Date: 10/25/2023 (No Active [...] PAIN-UNSPEC [M25.50] 05/20/2006 10/03/2006 SPRAIN SHOULDER/ARM NOS [[id number]] 05/20/2006 10/03/2006 Complete rupture of rotator cuff [...] Encounter Status:Closed by AVELINO ABURTO on 10[facility]25/23 [facility] Office Visit (MIRI) MARTIN HENSON ([id number]) 1955 Date Time Provider Department 10/23/23 8:00 AM CARD REHAB PHASE 2 [place] MIRI During your visit today, we recorded the following information about you: Josiah Suh, shop welder 10/23/2023 8:09 AM Signed [facility] [...] Daily Exercise Log will be scanned into [email or web address] once it is completed. These can be [...] Plan, and education sessions covered. Josiah Suh, Break Off Worker Referring Provider: DEENA FRANCOIS [[id number]] Allergies As of Date: 10/23/2023 (No Active Allergies) Date Reviewed: 09/18/2023 Reviewed by: Pat Ye HUC - Fully Assessed Reason for Visit: Cardiac Rehab [6450] Primary Visit Diagnosis:S/P AVR (aortic valve replacement) [...] PAIN-UNSPEC [M25.50] 05/20/2006 10/03/2006 SPRAIN SHOULDER/ARM NOS [[id number]] 05/20/2006 10/03/2006 Complete rupture of rotator cuff [...] Encounter Status:Closed by JOSIAH SUH [facility]23[facility]23 [facility] Office Visit (MIRI) MARTIN HENSON ([id number]) 1955 M Date Time Provider Department 10/21/23 8:00 AM CARD REHAB PHASE 2 [facility] During your visit today, we recorded the following information about you: Avelino Aburto, Break Off Worker 10/21/2023 8:17 AM Signed [facility] [...] Daily Exercise Log will be scanned into [email or web address] once it is completed. These can be [...] Plan, and education sessions covered. Avelino Aburto, Break Off Worker Referring Provider: DEENA FRANCOIS [[id number]] Allergies As of Date: 10/21/2023 (No Active Allergies) Date Reviewed: 09/18/2023 Reviewed by: Pat Ye HUC - Fully Assessed Reason for Visit: Cardiac Rehab [0241] Primary Visit Diagnosis:S/P AVR (aortic valve replacement) [...] PAIN-UNSPEC [M25.50] 05/20/2006 10/03/2006 SPRAIN SHOULDER/ARM NOS [[id number]] 05/20/2006 10/03/2006 Complete rupture of rotator cuff [...] Encounter Status:Closed by AVELINO ABURTO on 10/21/23 [facility] 10-18-2023 [facility] Office Visit (MIRI) MARTIN HENSON ([id number]) 1955 M Date Time Provider Department 10/18/23 8:00 AM CARD REHAB PHASE 2 [facility] During your visit today, we recorded the following information about you: Avelino Aburto, Break Off Worker 10/18/2023 8:19 AM Signed [facility] [...] Daily Exercise Log will be scanned into [email or web address] once it is completed. These can be [...] Plan, and education sessions covered. Avelino Aburto, Break Off Worker Referring Provider: DEENA FRANCOIS [[id number]] Allergies As of Date: 10/18/2023 (No Active [...] PAIN-UNSPEC [M25.50] 05/20/2006 10/03/2006 SPRAIN SHOULDER/ARM NOS [[id number]] 05/20/2006 10/03/2006 Complete rupture of rotator cuff [...] (acute blood loss anemia) [D62] 08/03/2023 Thrombocytopenia ([facility]) [D69.6] 08/03/2023 Hypertrophic cardiomyopathy ([facility]) [I42.2] 09/18/2023 Obesity, Class I, BMI 30-34.9 [E66.9] 09/18/2023 Encounter Status:Closed by AVELION ABURTO on 10/18/23 [facility] Office Visit (MIRI) MARTIN HENSON ([id number]) 1955 M Date Time Provider Department 10/16/23 8:00 AM CARD REHAB PHASE 2 [facility] During your visit today, we recorded the following information about you: Josiah Suh, shop welder 10/16/2023 8:13 AM Signed [facility] [...] Daily Exercise Log will be scanned into [email or web address] once it is completed. These can be [...] Plan, and education sessions covered. Josiah Suh, Break Off Worker Referring Provider: DEENA FRANCOIS [[id number]] Allergies As of Date: 10/16/2023 (No Active [...] PAIN-UNSPEC [M25.50] 05/20/2006 10/03/2006 SPRAIN SHOULDER/ARM NOS [[id number]] 05/20/2006 10/03/2006 Complete rupture of rotator cuff [...] Encounter Status:Closed by JOSIAH SUH on 10/16/23 [facility] CNOVon 10-14-2023 [facility] Office Visit (MIRI) MARTIN HENSON ([id number]) 1955 M Date Time Provider Department 10/14/23 8:00 AM CARD REHAB PHASE 2 [facility] During your visit today, we recorded the following information about you: Avelino Aburto, Break Off Worker 10/14/2023 8:09 AM Signed [facility] [...] Daily Exercise Log will be scanned into [email or web address] once it is completed. These can be [...] Plan, and education sessions covered. Avelino Aburto, Break Off Worker Referring Provider: DEENA FRANCOIS [[id number]] Allergies As of Date: 10/14/2023 (No Active [...] PAIN-UNSPEC [M25.50] 05/20/2006 10/03/2006 SPRAIN SHOULDER/ARM NOS [[id number]] 05/20/2006 10/03/2006 Complete rupture of rotator cuff [...] Encounter Status:Closed by AV[facility]INO ABURTO [facility]23 [facility] Office Visit (MIRI) MARTIN HENSON ([id number]) 1955 M Date Time Provider Department 10/11/23 8:00 AM CARD REHAB PHASE 2 [facility] During your visit today, we recorded the following information about you: Avelino Aburto, Break Off Worker 10/11/2023 8:10 AM Signed [facility] [...] Daily Exercise Log will be scanned into [email or web address] once it is completed. These can be [...] Plan, and education sessions covered. Avelino Aburto, Break Off Worker Referring Provider: DEENA FRANCOIS [[id number]] Allergies As of Date: 10/11/2023 (No Active [...] PAIN-UNSPEC [M25.50] 05/20/2006 10/03/2006 SPRAIN SHOULDER/ARM NOS [[id number]] 05/20/2006 10/03/2006 Complete rupture of rotator cuff [...] Encounter Status:Closed by AVELINO ABURTO on 10/11/23 [facility] [place] 10-09-2023 [facility] Office Visit (MIRI) MARTIN HENSON ([id number]) 1955 M Date Time Provider Department 10/09/23 10:00 AM CARD EXERCISE [facility] CHERY During your visit today, we recorded the following information about you: Pulse Blood pressure Weight Height 90/minute 118/80 112.9 kg 1.854 m Isela Davis, Break Off Worker 10/09/2023 10:50 AM [facility] V[facility] [place] [facility] Department of Cardiovascular Medicine Initial [...] 32.85 kg/(m2). INDIVIDUAL TREATMENT PLAN Program Location: [facility] evaluation site : [facility] Completed : [facility] Program: Entry Phase II Primary Reason For [...] strictly adher (more content not included)... Normal [facility] 09-18-2023 [facility] Office Visit (CARCMN ) MARTIN HENSON ([id number]) 1955 M Date Time Provider Department 09/18/23 3:15 PM DEENA FRANCOIS During your visit today, we recorded the following information about you: Pulse Blood pressure Weight Height 86/minute 147/86 111.1 kg 1.854 m Deena Francois MD 09/22/2023 2:22 PM Signed [facility] [place] [facility] Department of Cardiovascular Medicine SECTION OF CLINICAL CARDIOLOGY OUTPATIENT VISIT DATE September 18, 2023 OUTPATIENT VISIT TYPE ESTABLISHED PRIMARY CARE PHYSICIAN: ABDIEL MATHEWS [address] [place] [address] REFERRING PHYSICIAN: No referring provider defined for [...] Lido patches. Dispo - 67[place] [address]. No dc needs. CM following. OPD and [...] mild surgic (more content not included)... Normal [facility] ECG COMPLETEon 09-18-2023 ECG COMPLETE Ventricular Rate : 7 9 BPM Atrial Rate : 79 BPM P-R Interval : 160 ms QRS Duration : 112 ms Q-T Interval : 406 ms QTC Calculation(Bazett) : 465 ms Calculated P Wright : 65 degrees Calculated R Wright : 5 degrees Calculated T Wright : 162 degrees NORMAL SINUS RHYTHM LEFT VENTRICULAR HYPERTROPHY WITH REPOLARIZATION ABNORMALITY ( Sokolow-Salcedo ) POSSIBLE INFERIOR MYOCARDIAL INFARCTION , AGE UNDETERMINED ABNORMAL ECG Confirmed by BAIRON MIR MD ([id number]) on 09/29/2023 5:36:55 PM NAME : MARTIN HENSON PID : [id number] : 1955 Gender : Male Race : ORD : [id number] Procedure Date : Sep 18 2023 13:51:19 Edit Date : Sep 29 2023 17:36:59 Diagnosis: NORMAL SINUS RHYTHM LEFT VENTRICULAR HYPERTROPHY WITH REPOLARIZATION ABNORMALITY ( Sokolow-Salcedo ) POSSIBLE INFERIOR MYOCARDIAL INFARCTION , AGE UNDETERMINED ABNORMAL ECG Confirmed by BAIRON MIR MD ([id number]) on 09/29/2023 5:36:55 PM Test Reason : Location : [facility] : [place] [address] Overread By : BAIRON MIR MD Edited By : BAIRON MIR MD Referred By : , Acquired by : EFREN BRADY [facility]20[facility]ART[facility]EN[facility] ([id number]) 1955 M Date Time Provider Department 09/03/23 JUSTO MEHTA During your visit today, we recorded the following information about you: Justo Mehta APRN.[facility] 09/03/2023 11:01 AM Signed I called the [...] times a day. Authorizing Provider: JUSTO MEHTA APRN.[facility] Allergies As of Date: 09/03/2023 (No Active [...] PAIN-UNSPEC [M25.50] 05/20/2006 10/03/2006 SPRAIN SHOULDER/ARM NOS [[id number]] 05/20/2006 10/03/2006 Complete rupture of rotator cuff [...] Encounter Status:Closed by JUSTO MEHTA on [facility]03/[facility] ([id number]) 1955 M Date Time Provider Department 09/03/23 USHA NAVARRO HVICTR During your visit today, we recorded the following information about you: Sukumar Sarabia I, RN 09/03/2023 8:34 AM Signed [facility] Center Inbound Phone Encounter DATE of SERVICE: 09/03/2023 TIME of SERVICE: 8:26 AM Status: Non-urgent, needs attention Service/Provider: Cardiac Surgery Usha Navarro M.D. Reason for call: Incisions Contact information: [phone] Resolution: Reinforced education and Sent to [employer] Comments: Pt calling. States that approximately a [...] Pt asked to send in picture via [employer]. Also advised to see if local PCP could see him today. Pt willing to drive to if he can be seen here if need be. Please advise pt after reviewing [employer] picture that he will send in. Sukumar [...] PAIN-UNSPEC [M25.50] 05/20/2006 10/03/2006 SPRAIN SHOULDER/ARM NOS [[id number]] 05/20/2006 10/03/2006 Complete rupture of rotator cuff [...] by SUKUMAR BERUMEN I on 09/03/23 [facility]V FRONTAL/LATon [facility] - Microbiology an d Antimicrobial susceptibilityon 07-25-2023 S. aureus and MRSA panel BREANN+probe (Nose) Negative Negative [facility] Absolute lymphocyte countOrd ered By: Singh Barrientos on 05-21-2023 Lymphocytes Auto (Unsp spec) [#/Vol] 1.67 10*3/uL 0.83-4.51 [facility] Basophil percentageOrdered B y: Singh Barrientos on 05-21-2023 Basophils/100 WBC (Bld) 1.3 % 0-1 [facility] Chloride [Moles/Vol] 106 mmol/L 98-107 [facility] Eosinophils/100 WBC (Bld) 5.4 % 0-5 [facility] Glucose [Mass/Vol] 153 mg/dL 74-106 [facility] Comment on above: Fasting Glucose resu lt greater than or equal to 126 mg/dL suggests DIABETES MELLITUS per A.D.A. criteria. Neutrophils (Bld) [#/Vol] 3.5 10*3/uL 2.0-7.7 [facility] Neutrophils/100 WBC (Bld) 56.3 % 47-70 [facility] Potassium [Moles/Vol] 4.6 mmol/L 3.5-5.1 [facility] Sodium [Moles/Vol] 138 mmol/L 136-145 [facility] WBC (Bld) [#/Vol] 6.2 10*3/uL 4.4-11.0 [facility] Blood erythrocytes count (nu mber/volume)Ordered By: Singh Barrientos on 05-21-2023 RBC (Bld) [#/Vol] 4.96 10*6/uL 4.6-6.2 [facility] Blood hemoglobin measurement (mass/volume)Ordered By: Singh Barrientos on 05-21-2023 Hemoglobin (Bld) [Mass/Vol] 15.7 g/dL 13.0-16.5 [facility] Blood lymphocytes/100 leukoc ytesOrdered By: Singh Barrientos on 05-21-2023 Lymphocytes/100 WBC (Bld) 26.8 % 19-41 [facility] Blood monocytes/100 leukocyt esOrdered By: Singh Barrientos on 05-21-2023 Monocytes/100 WBC (Bld) 9.9 % 0-10 [facility] Blood platelet mean volumeOr dered By: Singh Barrientos on 05-21-2023 Platelet mean volume (Bld) [Entitic vol] 10.4 fL 6.2-12.0 [facility] Determination of erythrocyte mean corpuscular volume (MCV)Ordered By: Singh Barrientos on 05-21-2023 MCV (RBC) [Entitic vol] 92.9 fL 80-94 [facility] Hematocrit Auto (Bld) [Volum e fraction]Ordered By: Singh Barrientos on 05-21-2023 Hematocrit (Bld) [Volume fraction] 46.1 % 40-54 [facility] INR in Blood by Coagulation assayOrdered By: Singh Barrientos on 05-21-2023 INR Coag (Bld) [Relative time] 1.1 {INR} [facility] Laboratory - Chemistry and C hemistry - challengeOrdered By: Singh Barrientos on 05-21-2023 CO2 [Moles/Vol] 32.0 mmol/L 21.0-32.0 [facility] Urea nitrogen/Creatinine [Mass ratio] 16.5 mg/mg 10-20 [facility] Laboratory - CoagulationOrde red By: Singh Barrientos on 05-21-2023 aPTT Coag (Bld) [Time] 32.2 s 24.1-36.2 [facility] PT Coag (PPP) [Time] 14.1 s 11.7-14.9 [facility] Laboratory - Hematology and Cell countsOrdered By: Singh Barrientos on 05-21-2023 Erythrocyte distribution width (RBC) [Entitic vol] 42.0 fL 35.1-43.9 [facility] Erythrocyte distribution width (RBC) [Ratio] 12.3 % 11.6-14.6 [facility] Immature granulocytes/100 WBC (Bld) 0.300 % 0.0-0.9 [facility] Comment on above: IG% - Immature Granu locytes (promyelocytes, myelocytes and metamyelocytes) > 1% indicates that a LEFT SHIFT is Present. MCH (RBC) [Entitic mass] 31.7 pg 27.0-32.0 [facility] Nucleated RBC/100 WBC (Bld) [Ratio] 0 % 0-5 [facility] MCHC Auto (RBC) [Mass/Vol]Or dered By: Singh Barrientos on 05-21-2023 MCHC (RBC) [Mass/Vol] 34.1 g/dL 32-36 [facility] No Panel InformationOrdered By: Singh Barrientos on 05-21-2023 Estimated GFR (MDRD) Amer 93 mL/min >60 [facility] Comment on above: GFR Calc Estimated GFR (MDRD) Non-Af Amer 76 mL/min >60 [facility] Comment on above: Non- GFR Calc Platelets bldOrdered By: Darrion Barrientos on 05-21-2023 Platelets (Bld) [#/Vol] 158 10*3/uL 150-450 [facility] Serum or plasma calcium kely urement (mass/volume)Ordered By: Singh Barrientos on 05-21-2023 Calcium [Mass/Vol] 9.0 mg/dL 8.5-10.1 [facility] Serum or plasma creatinine m easurement (mass/volume)Ordered By: Singh Barrientos on 05-21-2023 Creatinine [Mass/Vol] 1.03 mg/dL 0.70-1.30 [facility] Comment on above: The validity of the calculated GFR & GFRAA in patients over 70 years has not been determined. Clinical correlation is essential. Serum or plasma urea nitroge n measurement (mass/volume)Ordered By: Singh Barrientos on 05-21-2023 Urea nitrogen [Mass/Vol] 17 mg/dL 7-18 [facility] Thin prep Papanicolaou smear with manual screeningOrdered By: Singh Barrientos on 05-21-2023 Thin prep Papanicolaou smear with manual screening 0 5-15 [facility] MRI CARD MORPH FUNC WO/W IVC ONon 12-21-2022 MRI CARD MORPH FUNC WO/W IVCON * * *Final Report* * * DATE OF EXAM: Dec 21 2022 10:30AM [facility] 0703 - MRI CARD MORPH FUNC WO/W IVCON / PROCEDURE REASON: Q23.1, I35.0, I42.9 * * * * Physician Interpretation * * * * Cardiac MRI Report: [facility] Date of service: 12/21/2022 9:00:52 AM Linked orders:[id number] CARD MORPH FUNC WO/W IVCON;. Ordering physician: SINGH ABRRIENTOS Technologist: CHARLOTTE GARCIA Interpreting physician: Heraclio Fine [...] (more content not included)... Normal [facility] MRI CARDIAC VELOCITY FLOW IA [place] 12-21-2022 MRI CARDIAC VELOCITY FLOW MAP * * *Final Report* * * DATE OF EXAM: Dec 21 2022 10:30AM [facility] 0704 - MRI CARDIAC VELOCITY FLOW MAP / PROCEDURE REASON: Q23.1, I35.0, I42.9 * * * * Physician Interpretation * * * * IMPRESSION: The study has been already reported under . The current template adds the charge for Phase velocity mapping Heraclio Fine MD Wagon Driver Salesperson: [facility] Transcribe Date/Time: Jun 27 2023 9:11P Dictated by : HERACLIO FINE MD This examination was interpreted and the report reviewed and electronically signed by: HERACLIO FINE MD on Jun 27 2023 9:15PM EST [id number] Normal [facility] Fernando 12-07-2022 [place] Telephone ([facility]) MARTIN HENSON ([id number]) 1955 M Date Time Provider Department 12/07/22 LOUISE CHARLOTTEKang GRAY During your visit today, we recorded the following information about you: Charlotte Garcia, RT(R) 12/07/2022 6:41 AM Signed CMR Protocol needed [...] sure that the SVC appears as a pamunkey/oval (if the SVC is not seen on [...] PAIN-UNSPEC [M25.50] 05/20/2006 10/03/2006 SPRAIN SHOULDER/ARM NOS [[id number]] 05/20/2006 10/03/2006 Complete rupture of rotator cuff [M75.120] 10/03/2006 Obesity (BMI 30-39.9) [E66.9] 02/16/2011 Special screening for malignant neoplasms, colo*03/13/2011 Encounter Status:Closed by CHARLOTTE GARCIA on 12/07/22 Normal [facility] Absolute lymphocyte counton 07-31-2022 Lymphocytes Auto (Unsp spec) [#/Vol] 1.53 10*3/uL 0.83-4.51 [facility] Work Phone: Basophil percentageon 2021 Basophils/100 WBC (Bld) 0.9 % 0-1 [facility] Work Phone: [phone] Eosinophils/100 WBC (Bld) 3.7 % 0-5 [facility] Work Phone: [phone] Neutrophils (Bld) [#/Vol] 5.5 10*3/uL 2.0-7.7 [facility] Work Phone: Neutrophils/100 WBC (Bld) 67.6 % 47-70 [facility] Work Phone: [phone] WBC (Bld) [#/Vol] 8.1 10*3/uL 4.4-11.0 [facility] Work Phone: Blood erythrocytes count (nu mber/volume)on 07-31-2022 RBC (Bld) [#/Vol] 5.24 10*6/uL 4.6-6.2 [facility] Work Phone: Blood hemoglobin measurement (mass/volume)on 07-31-2022 Hemoglobin (Bld) [Mass/Vol] 15.9 g/dL 13.0-16.5 [facility] Work Phone: [phone] Blood lymphocytes/100 leukoc yteson 07-31-2022 Lymphocytes/100 WBC (Bld) 18.9 % 19-41 [facility] Work Phone: [phone] Blood monocytes/100 leukocyt eson 07-31-2022 Monocytes/100 WBC (Bld) 8.5 % 0-10 [facility] Work Phone: Blood platelet mean volumeon 07-31-2022 Platelet mean volume (Bld) [Entitic vol] 10.1 fL 6.2-12.0 [facility] Work Phone: Determination of erythrocyte mean corpuscular volume (MCV)on 07-31-2022 MCV (RBC) [Entitic vol] 91.0 fL 80-94 [facility] Work Phone: Hematocrit Auto (Bld) [Volum e fraction]on 07-31-2022 Hematocrit (Bld) [Volume fraction] 47.7 % 40-54 [facility] Work Phone: INR in Blood by Coagulation assayon 07-31-2022 INR Coag (Bld) [Relative time] 1.1 {INR} [facility] Work Phone: Laboratory - Coagulationon 1 09-30-2021 aPTT Coag (Bld) [Time] 29.9 s 24.1-36.2 [facility] Work Phone: PT Coag (PPP) [Time] 13.5 s 11.7-14.9 [facility] Work Phone: Laboratory - Hematology and Cell countson 07-31-2022 Erythrocyte distribution width (RBC) [Entitic vol] 40.6 fL 35.1-43.9 [facility] Work Phone: Erythrocyte distribution width (RBC) [Ratio] 12.3 % 11.6-14.6 [facility] Work Phone: Immature granulocytes/100 WBC (Bld) 0.400 % 0.0-0.9 [facility] Work Phone: Comment on above: IG% - Immature Granu locytes (promyelocytes, myelocytes and metamyelocytes) > 1% indicates that a LEFT SHIFT is Present. MCH (RBC) [Entitic mass] 30.3 pg 27.0-32.0 [facility] Work Phone: Nucleated RBC/100 WBC (Bld) [Ratio] 0 % 0-5 [facility] Work Phone: MCHC Auto (RBC) [Mass/Vol]on 07-31-2022 MCHC (RBC) [Mass/Vol] 33.3 g/dL 32-36 [facility] Work Phone: Platelets bldon 07-31-2022 Platelets (Bld) [#/Vol] 185 10*3/uL 150-450 [facility] Work Phone: 24 hour urine albumin/total protein ratio by electrophoresis (mass fraction)on 07-25-2022 Albumin Elph (24H U) [Mass fraction] 23.1 % . [facility] Work Phone: 24 hour urine alpha 1 globul in/total protein ratio by electrophoresis (mass fraction)on 07-25-2022 Alpha 1 globulin Elph (24H U) [Mass fraction] 4.0 % . [facility] Work Phone: 24 hour urine alpha 2 globul in/total protein ratio by electrophoresis (mass fraction)on 07-25-2022 Alpha 2 globulin Elph (24H U) [Mass fraction] 15.0 % . [facility] Work Phone: Absolute lymphocyte counton 07-25-2022 Lymphocytes Auto (Unsp spec) [#/Vol] 1.69 10*3/uL 0.83-4.51 [facility] Work Phone: Albumin Elph [Mass/Vol]on Albumin [Mass/Vol] 4.2 g/dL 2.9-4.4 [facility] Work Phone: Basophil percentageon 2021 Basophil percentage 0 SEEN /hpf 0-5 [facility] Work Phone: Basophils/100 WBC (Bld) 1.0 % 0-1 [facility] Work Phone: Bilirubin [Mass/Vol] 0.40 mg/dL 0.20-1.00 [facility] Work Phone: Comment on above: For patients on eltr ombopag therapy, use of Dimension Victor TBIL is not recommended. Chloride [Moles/Vol] 105 mmol/L 98-107 [facility] Work Phone: [phone] Eosinophils/100 WBC (Bld) 3.7 % 0-5 [facility] Work Phone: [phone] Glucose [Mass/Vol] 122 mg/dL 74-106 [facility] Work Phone: [phone] Comment on above: Fasting Glucose resu lt from 100 to 125 mg/dL suggests IMPAIRED HOMEOSTASIS per A.D.A. criteria. Neutrophils (Bld) [#/Vol] 4.5 10*3/uL 2.0-7.7 [facility] Work Phone: [phone] Neutrophils/100 WBC (Bld) 61.5 % 47-70 [facility] Work Phone: [phone] Potassium [Moles/Vol] 4.1 mmol/L 3.5-5.1 [facility] Work Phone: [phone] Protein [Mass/Vol] 7.7 g/dL 6.4-8.2 [facility] Work Phone: [phone] Sodium [Moles/Vol] 141 mmol/L 136-145 [facility] Work Phone: [phone] WBC (Bld) [#/Vol] 7.2 10*3/uL 4.4-11.0 [facility] Work Phone: Bilirubin Test strip Ql (U)o n 07-25-2022 Bilirubin Ql (U) Negative Negative [facility] Work Phone: Blood erythrocytes count (nu mber/volume)on 07-25-2022 RBC (Bld) [#/Vol] 5.18 10*6/uL 4.6-6.2 [facility] Work Phone: [phone] Blood hemoglobin measurement (mass/volume)on 07-25-2022 Hemoglobin (Bld) [Mass/Vol] 16.1 g/dL 13.0-16.5 [facility] Work Phone: [phone] Blood lymphocytes/100 leukoc yteson 07-25-2022 Lymphocytes/100 WBC (Bld) 23.3 % 19-41 [facility] Work Phone: Blood monocytes/100 leukocyt eson 07-25-2022 Monocytes/100 WBC (Bld) 10.2 % 0-10 [facility] Work Phone: Blood platelet mean volumeon 07-25-2022 Platelet mean volume (Bld) [Entitic vol] 10.3 fL 6.2-12.0 [facility] Work Phone: Determination of erythrocyte mean corpuscular volume (MCV)on 07-25-2022 MCV (RBC) [Entitic vol] 90.7 fL 80-94 [facility] Work Phone: Hematocrit Auto (Bld) [Volum e fraction]on 07-25-2022 Hematocrit (Bld) [Volume fraction] 47.0 % 40-54 [facility] Work Phone: Interpretation of serum or p lasma protein pattern by immunofixation (narrative resulton 07-25-2022 Protein Fractions Immunofixation Leo [Interp] See comment [facility] Work Phone: Comment on above: Result: Not Observed Ketones Test strip Ql (U)on 07-25-2022 Ketones Ql (U) Negative Negative [facility] Work Phone: Laboratory - Chemistry and C hemistry - challengeon 07-25-2022 ALP [Catalytic activity/Vol] 65 U/L 45-117 [facility] Work Phone: ALT [Catalytic activity/Vol] 67 U/L 16-61 [facility] Work Phone: CO2 [Moles/Vol] 29.0 mmol/L 21.0-32.0 [facility] Work Phone: Urea nitrogen/Creatinine [Mass ratio] 20.8 mg/mg 10-20 [facility] Work Phone: Laboratory - Hematology and Cell countson 07-25-2022 Erythrocyte distribution width (RBC) [Entitic vol] 40.8 fL 35.1-43.9 [facility] Work Phone: Erythrocyte distribution width (RBC) [Ratio] 12.2 % 11.6-14.6 [facility] Work Phone: Immature granulocytes/100 WBC (Bld) 0.300 % 0.0-0.9 [facility] Work Phone: Comment on above: IG% - Immature Granu locytes (promyelocytes, myelocytes and metamyelocytes) > 1% indicates that a LEFT SHIFT is Present. MCH (RBC) [Entitic mass] 31.1 pg 27.0-32.0 [facility] Work Phone: Nucleated RBC/100 WBC (Bld) [Ratio] 0 % 0-5 [facility] Work Phone: MCHC Auto (RBC) [Mass/Vol]on 07-25-2022 MCHC (RBC) [Mass/Vol] 34.3 g/dL 32-36 [facility] Work Phone: Mucus LM Ql (Urine sed)on Mucus Ql (Urine sed) 0 SEEN /hpf [facility] Work Phone: Nitrite Test strip Ql (U)on 07-25-2022 Nitrite Ql (U) Negative Negative [facility] Work Phone: No Panel Informationon 07-25 Addendum Document Comment . [facility] Work Phone: Comment on above: Protein electrophore sis scan will follow via computer,mail, or special equipment technician delivery. Estimated GFR (MDRD) Amer 95 mL/min >60 [facility] Work Phone: Comment on above: GFR Calc Estimated GFR (MDRD) Non-Af Amer 78 mL/min >60 [facility] Work Phone: Comment on above: Non- GFR Calc Free Lambda Light Chains, Quant 13.9 mg/L 5.7-26.3 [facility] Work Phone: Urine Immunofixation PEP Note Comment . [facility] Work Phone: Comment on above: Protein electrophore sis scan will follow via computer,mail, or special equipment technician delivery. Platelets bldon 07-25-2022 Platelets (Bld) [#/Vol] 191 10*3/uL 150-450 [facility] Work Phone: Protein Test strip Ql (U)on 07-25-2022 Protein Ql (U) Negative Negative [facility] Work Phone: Serum ealex-[id number]-[id number] measu rement by electrophoresison 07-25-2022 Alpha 1 globulin Elph [Mass/Vol] 0.2 g/dL 0.0-0.4 [facility] Work Phone: Alpha 1 globulin Elph [Mass/Vol] 0.7 g/dL 0.4-1.0 [facility] Work Phone: Serum globulin measurement ( mass/volume)on 07-25-2022 Globulin (S) [Mass/Vol] 3.1 g/dL 2.2-3.9 [facility] Work Phone: Serum immunoglobulin kappa l ight chains/immunoglobulin lambda light chains mass ratioon 07-25-2022 Immunoglobulin light chains.kappa/Immunoglob ulin light chains.lambda (S) [Mass ratio] 1.40 0.26-1.65 [facility] Work Phone: Comment on above: Performed at: [address] [id number] Director: Dorian Cantrell PhD, Phone: [phone] Serum or plasma IgA measurem ent (mass/volume)on 07-25-2022 IgA [Mass/Vol] 97 mg/dL 61-437 [facility] Work Phone: Serum or plasma IgG measurem ent (mass/volume)on 07-25-2022 IgG [Mass/Vol] 1021 mg/dL [phone] [facility] Work Phone: Serum or plasma IgM measurem ent (mass/volume)on 07-25-2022 IgM [Mass/Vol] 78 mg/dL 20-172 [facility] Work Phone: Serum or plasma albumin kely urement (mass/volume)on 07-25-2022 Albumin [Mass/Vol] 4.4 g/dL 3.2-5.0 [facility] Work Phone: Serum or plasma albumin/glob ulin mass ratioon 07-25-2022 Albumin/Globulin [Mass ratio] 1.3 {ratio} 0.9-2.4 [facility] Work Phone: Serum or plasma beta globuli n measurement by electrophoresis (mass/volume)on 07-25-2022 Beta globulin Elph [Mass/Vol] 1.0 g/dL 0.7-1.3 [facility] Work Phone: Serum or plasma calcium kely urement (mass/volume)on 07-25-2022 Calcium [Mass/Vol] 9.6 mg/dL 8.5-10.1 [facility] Work Phone: Serum or plasma creatinine m easurement (mass/volume)on 07-25-2022 Creatinine [Mass/Vol] 1.01 mg/dL 0.70-1.30 [facility] Work Phone: Comment on above: The validity of the calculated GFR & GFRAA in patients over 70 years has not been determined. Clinical correlation is essential. Serum or plasma gamma globul in measurement by electrophoresis (mass/volume)on 07-25-2022 Gamma globulin Elph [Mass/Vol] 1.2 g/dL 0.4-1.8 [facility] Work Phone: Serum or plasma immunoelectr ophoresis interpretation (nominal result)on 07-25-2022 Interpretation IEP [Interp] Comment . [facility] Work Phone: Comment on above: No monoclonality det ected. Serum or plasma immunoglobul in kappa light chains measurement (mass/volume)on 07-25-2022 Immunoglobulin light chains.kappa [Mass/Vol] 19.5 mg/L 3.3-19.4 [facility] Work Phone: Serum or plasma urea nitroge n measurement (mass/volume)on 07-25-2022 Urea nitrogen [Mass/Vol] 21 mg/dL 7-18 [facility] Work Phone: Squamous epithelial cells de tection in urine sediment by light microscopyon 07-25-2022 Epithelial cells.squamous LM Ql (Urine sed) 0 SEEN /hpf 0-5 [facility] Work Phone: Thin prep Papanicolaou smear with manual screeningon 07-25-2022 Thin prep Papanicolaou smear with manual screening 31 U/L 15-37 [facility] Work Phone: Thin prep Papanicolaou smear with manual screening 7 5-15 [facility] Work Phone: Thin prep Papanicolaou smear with manual screening 231 U/L 87-241 [facility] Work Phone: Thin prep Papanicolaou smear with manual screening 1.4 0.7-1.7 [facility] Work Phone: Thin prep Papanicolaou smear with manual screening Comment . [facility] Work Phone: Comment on above: No monoclonality det ected. Total protein bloodon 2021 Protein [Mass/Vol] 7.3 g/dL 6.0-8.5 [facility] Work Phone: Urine beta globulin measurem ent by electrophoresis (mass/volume)on 07-25-2022 Beta globulin Elph (U) [Mass/Vol] 29.2 % . [facility] Work Phone: Urine blood detectionon 07-10 RBC Ql (U) Negative Negative [facility] Work Phone: RBC Ql (U) 0 SEEN /hpf 0-5 [facility] Work Phone: Urine clarityon 07-25-2022 Clarity (U) Clear Clear [facility] Work Phone: Urine color determinationon 07-25-2022 Color (U) Yellow Yellow [facility] Work Phone: Urine gamma globulin measure ment by electrophoresis (mass/volume)on 07-25-2022 Gamma globulin Elph (U) [Mass/Vol] 28.7 % . [facility] Work Phone: Urine glucose detectionon Glucose Ql (U) Normal mg/dl Normal [facility] Work Phone: Urine leukocyte esterase det ection by dipstickon 07-25-2022 Leukocyte esterase Test strip Ql (U) Negative Negative [facility] Work Phone: Urine monoclonal protein/tot al protein mass ratio by electrophoresison 07-25-2022 Protein.monoclonal Elph (U) [Mass fraction] Not Observed % Not Observed [facility] Work Phone: Urine pHon 07-25-2022 pH (U) 7.0 [pH] 5.0 - 8.0 [facility] Work Phone: Urine protein measurement (m ass/volume)on 07-25-2022 Protein (U) [Mass/Vol] 7.4 mg/dL Not Estab. [facility] Work Phone: Urine sediment bacteria coun t by microscopy (number/high power field)on 07-25-2022 Bacteria LM.HPF (Urine sed) [#/Area] 0 /[HPF] None Seen [facility] Work Phone: Urine specific gravity measu rementon 07-25-2022 Specific gravity (U) [Rel density] 1.015 1.002-1.030 [facility] Work Phone: Urobilinogen Auto test strip Ql (U)on 07-25-2022 Urobilinogen Ql (U) Normal mg/dl Normal [facility] Work Phone: Absolute lymphocyte counton 04-23-2022 Lymphocytes Auto (Unsp spec) [#/Vol] 1.42 10*3/uL 0.83-4.51 [facility] Work Phone: Basophil percentageon 2021 Basophils/100 WBC (Bld) 0.8 % 0-1 [facility] Work Phone: Eosinophils/100 WBC (Bld) 3.5 % 0-5 [facility] Work Phone: Neutrophils (Bld) [#/Vol] 4.7 10*3/uL 2.0-7.7 [facility] Work Phone: Neutrophils/100 WBC (Bld) 66.4 % 47-70 [facility] Work Phone: WBC (Bld) [#/Vol] 7.1 10*3/uL 4.4-11.0 [facility] Work Phone: Bilirubin [Mass/Vol] 0.70 mg/dL 0.20-1.00 [facility] Work Phone: Comment on above: For patients on eltr ombopag therapy, use of Dimension Victor TBIL is not recommended. Chloride [Moles/Vol] 103 mmol/L 98-107 [facility] Work Phone: Cholesterol [Mass/Vol] 122 mg/dL <200 [facility] Work Phone: Comment on above: <200 mg/dL Desirable 200-240 mg/dL Borderline >240 mg/dL High Risk Glucose [Mass/Vol] 108 mg/dL 74-106 [facility] Work Phone: Comment on above: Fasting Glucose resu lt from 100 to 125 mg/dL suggests IMPAIRED HOMEOSTASIS per A.D.A. criteria. Potassium [Moles/Vol] 4.2 mmol/L 3.5-5.1 [facility] Work Phone: Protein [Mass/Vol] 7.7 g/dL 6.4-8.2 [facility] Work Phone: Sodium [Moles/Vol] 138 mmol/L 136-145 [facility] Work Phone: Triglyceride [Mass/Vol] 130 mg/dL <199 [facility] Work Phone: Comment on above: The drugs N-Acetylcy steine and Metamizole may falsely depress this assay.Serum Triglycerides Reference Interval Normal <150 mg/dL Borderline high 150 - 199 mg/dL High 200 - 499 mg/dL Very High > or = 500 mg/dL Blood erythrocytes count (nu mber/volume)on 04-23-2022 RBC (Bld) [#/Vol] 5.33 10*6/uL 4.6-6.2 [facility] Work Phone: Blood hemoglobin measurement (mass/volume)on 04-23-2022 Hemoglobin (Bld) [Mass/Vol] 16.5 g/dL 13.0-16.5 [facility] Work Phone: Blood lymphocytes/100 leukoc yteson 04-23-2022 Lymphocytes/100 WBC (Bld) 19.9 % 19-41 [facility] Work Phone: Blood monocytes/100 leukocyt eson 04-23-2022 Monocytes/100 WBC (Bld) 9.1 % 0-10 [facility] Work Phone: Blood platelet mean volumeon 04-23-2022 Platelet mean volume (Bld) [Entitic vol] 10.4 fL 6.2-12.0 [facility] Work Phone: Determination of erythrocyte mean corpuscular volume (MCV)on 04-23-2022 MCV (RBC) [Entitic vol] 91.9 fL 80-94 [facility] Work Phone: Direct bilirubinon 2 Bilirubin.direct [Mass/Vol] 0.18 mg/dL 0.00-0.30 [facility] Work Phone: Hematocrit Auto (Bld) [Volum e fraction]on 04-23-2022 Hematocrit (Bld) [Volume fraction] 49.0 % 40-54 [facility] Work Phone: Laboratory - Chemistry and C hemistry - challengeon 04-23-2022 ALP [Catalytic activity/Vol] 68 U/L 45-117 [facility] Work Phone: ALT [Catalytic activity/Vol] 81 U/L 16-61 [facility] Work Phone: CO2 [Moles/Vol] 29.0 mmol/L 21.0-32.0 [facility] Work Phone: Globulin (S) [Mass/Vol] 3.7 g/dL 2.2-4.2 [facility] Work Phone: Urea nitrogen/Creatinine [Mass ratio] 13.7 mg/mg 10-20 [facility] Work Phone: Laboratory - Hematology and Cell countson 04-23-2022 Erythrocyte distribution width (RBC) [Entitic vol] 41.4 fL 35.1-43.9 [facility] Work Phone: Erythrocyte distribution width (RBC) [Ratio] 12.2 % 11.6-14.6 [facility] Work Phone: Immature granulocytes/100 WBC (Bld) 0.300 % 0.0-0.9 [facility] Work Phone: Comment on above: IG% - Immature Granu locytes (promyelocytes, myelocytes and metamyelocytes) > 1% indicates that a LEFT SHIFT is Present. MCH (RBC) [Entitic mass] 31.0 pg 27.0-32.0 [facility] Work Phone: Nucleated RBC/100 WBC (Bld) [Ratio] 0 % 0-5 [facility] Work Phone: MCHC Auto (RBC) [Mass/Vol]on 04-23-2022 MCHC (RBC) [Mass/Vol] 33.7 g/dL 32-36 [facility] Work Phone: No Panel Informationon 04-23 Estimated GFR (MDRD) Amer 94 mL/min >60 [facility] Work Phone: Comment on above: GFR Calc Estimated GFR (MDRD) Non-Af Amer 78 mL/min >60 [facility] Work Phone: Comment on above: Non- GFR Calc Thyroid Stimulating Hormone (TSH) 2.88 uIU/mL 0.358-3.74 [facility] Work Phone: Platelets bldon 04-23-2022 Platelets (Bld) [#/Vol] 166 10*3/uL 150-450 [facility] Work Phone: Serum or plasma albumin kely urement (mass/volume)on 04-23-2022 Albumin [Mass/Vol] 4.0 g/dL 3.2-5.0 [facility] Work Phone: Serum or plasma albumin/glob ulin mass ratioon 04-23-2022 Albumin/Globulin [Mass ratio] 1.1 {ratio} 0.9-2.4 [facility] Work Phone: Serum or plasma calcium kely urement (mass/volume)on 04-23-2022 Calcium [Mass/Vol] 9.0 mg/dL 8.5-10.1 [facility] Work Phone: Serum or plasma cholesterol in HDL measurement (mass/volume)on 04-23-2022 Cholesterol in HDL [Mass/Vol] 32 mg/dL >40 [facility] Work Phone: Comment on above: The drugs N-Acetylcy steine and Metamizole may falsely depress this assay. Reference Range HDL <40 mg/dL Low HDL Cholesterol HDL >or= 60 mg/dL High HDL Cholesterol Serum or plasma cholesterol in VLDL measurement (mass/volume)on 04-23-2022 Cholesterol in VLDL [Mass/Vol] 26 mg/dL 5-40 [facility] Work Phone: Serum or plasma creatinine m easurement (mass/volume)on 04-23-2022 Creatinine [Mass/Vol] 1.02 mg/dL 0.70-1.30 [facility] Work Phone: Comment on above: The validity of the calculated GFR & GFRAA in patients over 70 years has not been determined. Clinical correlation is essential. Serum or plasma low density lipoprotein (LDL) cholesterol measurement (mass/volume)on 04-23-2022 Cholesterol in LDL [Mass/Vol] 64 mg/dL 0-130 [facility] Work Phone: Serum or plasma urea nitroge n measurement (mass/volume)on 04-23-2022 Urea nitrogen [Mass/Vol] 14 mg/dL 7-18 [facility] Work Phone: Thin prep Papanicolaou smear with manual screeningon 04-23-2022 Thin prep Papanicolaou smear with manual screening 32 U/L 15-37 [facility] Work Phone: Thin prep Papanicolaou smear with manual screening 6 5-15 [facility] Work Phone: Provider Note - ED v2on 10-10 Provider Note - ED v2 Provider Note [...] better. Patient denies the use of any hccg-rum-fjlfqvf medications or home remedies prior to arrival [...] SIGNS: T PRBP SpO2O2(LPM) %FiO2 Method 27-Oct-2019 08:[id number] CLINICAL IMPRESSION Diagnosis/Annotation: ED Dx Name:Acute [...] ill patient: no Electronic Signatures: Shahida Degroot (MOLD INSPECTOR-PROFESSIONAL BENEFITS SALES CONSULTANT) (Signed 27-Oct-2019 09:11) Authored: Provider Note - ED v2 Last Updated: 27-Oct-2019 09:11 by Shahida Degroot (MOLD INSPECTOR-PROFESSIONAL BENEFITS SALES CONSULTANT) [facility] Provider Note - ED v2on Provider [...] maxillary pressure with palpation. Patient denies any lwyp-nxx-qwkvyjn medications or home her symptom management. Patient [...] of care. This note was generated using [employer] software. It may contain errors in wording, punctuation, or spelling. CRITICAL CARE TIME Is this a critically ill patient: no Electronic Signatures: Nnamdi Guillaume (MOLD INSPECTOR-PROFESSIONAL BENEFITS SALES CONSULTANT) (Signed 15-Sep-2019 09:57) Authored: Provider Note - ED v2 Last Updated: 15-Sep-2019 09:57 by Nnamdi Guillaume (MOLD INSPECTOR-PROFESSIONAL BENEFITS SALES CONSULTANT) [facility] Lab Report: Lipid Profileon 10-26-2017 Cholesterol 145 mg/dL Invalid Interpretation Code 200 [facility] Work Phone: HDL Cholesterol 33 mg/dL Low [facility] Work Phone: LDL Cholesterol 91 mg/dL Invalid Interpretation Code 0-130 [facility] Work Phone: Triglyceride 103 mg/dL Invalid Interpretation Code [facility] Work Phone: very low density lipoproteins 21 mg/dL Invalid Interpretation Code 5-40 [facility] Work Phone: [phone] Lab Report: Liver Profileon 10-26-2017 Alanine aminotransferase (ALT) 51 U/L Invalid Interpretation Code 16-61 [facility] Work Phone: [phone] Albumin 4.1 g/dL Invalid Interpretation Code 3.2-5.0 [facility] Work Phone: [phone] Alkaline phosphatase (ALP) 71 U/L Invalid Interpretation Code 45-117 [facility] Work Phone: [phone] Aspartate aminotransferase (AST) 27 U/L Invalid Interpretation Code 15-37 [facility] Work Phone: [phone] Bilirubin (direct) 0.14 mg/dL Invalid Interpretation Code 0.00-0.30 [facility] Work Phone: [phone] Bilirubin (total) 0.50 mg/dL Invalid Interpretation Code 0.20-1.00 [facility] Work Phone: [phone] Globulin 3.2 g/dL Invalid Interpretation Code 2.2-4.2 [facility] Work Phone: [phone] Protein 7.3 g/dL Invalid Interpretation Code 6.4-8.2 [facility] Work Phone: [phone] Office Visiton 05-08-2017 Dietary management education, guidance, and counseling (procedure) yes Invalid Interpretation Code [facility] Phone: [phone] Documentation of current medications (procedure) Done Invalid Interpretation Code [facility] Work Phone: [phone] Fall risk assessment No Invalid Interpretation Code [facility] Work Phone: [phone] Protein mass conc Done [facility] Work Phone: [phone] Tobacco smoking status NHIS Tobacco smoking status NHIS Invalid Interpretation Code [facility] Work Phone: [phone] Tobacco smoking status NHIS Never smoker [facility] Work Phone: [phone] [facility] Never smoker Invalid Interpretation Code [facility] Work Phone: [phone] Office Visiton 04-29-2017 Tobacco smoking status NHIS Tobacco smoking status NHIS Invalid Interpretation Code [facility] Work Phone: [phone] Tobacco smoking status NHIS Current [facility] Work Phone: [phone] Microbiology: Culture, Deep Woundon 04-19-2017 [facility] Cult, AnaerobicNo anaerobic bacteria isolated. [facility] Work Phone: [phone] GE use only - for [employer] import when terms are not otherwise specified Cult, AnaerobicNo anaerobic bacteria isolated. Invalid Interpretation Code [facility] Work Phone: [phone] Office Visiton 04-19-2017 Documentation of current medications (procedure) Done Invalid Interpretation Code [facility] Work Phone: [phone] Microbiology: (P) Culture, D eep Woundon 04-18-2017 GE use only - for [employer] import when terms are not otherwise specified Cult, AnaerobicChecking for anaerobes, further studies to follow. Invalid Interpretation Code [facility] Work Phone: [phone] Replaced Document: (P) Cultu re, Deep Woundon 04-18-2017 [facility] Vancomycin $ 1 [facility] Work Phone: [phone] Lab Report: Basic Metabolic Profile (BMP)on 04-17-2017 Anion gap 7 mmol/L Invalid Interpretation Code 15 [facility] Work Phone: [phone] Anion gap molar conc 7 mmol/L -15 [facility] Work Phone: [phone] BUN/Creatinine Ratio 17.9 RATIO Invalid Interpretation Code 10-20 [facility] Work Phone: [phone] Calcium 8.1 mg/dL Low 8.5-10.1 [facility] Work Phone: [phone] Chloride 101 mmol/L Invalid Interpretation Code 98-107 [facility] Work Phone: [phone] CO2 27.0 mmol/L Invalid Interpretation Code 21.0-32.0 [facility] Work Phone: [phone] CO2 ppres (BldV) 27.0 mmol/L 21.0-32.0 [facility] Work Phone: [phone] Creatinine 1.12 mg/dL Invalid Interpretation Code 0.70-1.30 [facility] Work Phone: [phone] Creatinine 78.28 mL/min Invalid Interpretation Code [facility] Work Phone: [phone] eGFR (non-black) 71 mL/min/{1.73_m2} Invalid Interpretation Code >60 [facility] Work Phone: [phone] eGFR (non-black) 86 mL/min/{1.73_m2} Invalid Interpretation Code >60 [facility] Work Phone: [phone] EST GFR - AA 86 mL/min >60 [facility] Work Phone: [phone] Glucose 148 mg/dL High 70-110 [facility] Work Phone: [phone] Glucose mass conc 148 mg/dL High 70-110 [facility] Work Phone: [phone] Potassium 4.3 mmol/L Invalid Interpretation Code 3.5-5.1 [facility] Work Phone: [phone] Sodium 135 mmol/L Low 136-145 [facility] Work Phone: [phone] Urea nitrogen 20 mg/dL High 7-18 [facility] Work Phone: [phone] Lab Report: CRPon 04-17-2017 C reactive protein (CRP) 3.13 mg/dL High Units converted. See lab report for original value. [facility] Work Phone: [phone] Lab Report: Erythrocyte Sed Rateon 04-17-2017 Erythrocyte sedimentation rate 29 mm/h High 0-20 [facility] Work Phone: [phone] Replaced Document: (P) CBC-C omplete Blood Cnt No Diffon 04-17-2017 Erythrocyte distribution width Ratio (RBC) 42.9 fL 35.1-43.9 [facility] Work Phone: [phone] Erythrocyte distribution width Ratio (RBC) 12.8 % 11.6-14.6 [facility] Work Phone: 1() 0 Erythrocytes (RBC) 4.48 10*6/uL Low 4.6-6.2 [facility] Work Phone: 1() 0 Hematocrit (HCT) 41.2 % Invalid Interpretation Code 40-54 [facility] Work Phone: 1() 0 Hematocrit Volume Fraction (Bld) 41.2 % 40-54 [facility] Work Phone: 1() 0 Hemoglobin (HGB) 13.6 g/dL Invalid Interpretation Code 13.0-16.5 [facility] Work Phone: 1() 0 MCH 30.4 pg Invalid Interpretation Code 27.0-32.0 [facility] Work Phone: 1() 0 MCH Entitic mass (RBC) 30.4 pg 27.0-32.0 [facility] Work Phone: 1() 0 MCHC 33.0 G/GL Invalid Interpretation Code 32-36 [facility] Work Phone: 1() 0 MCHC mass conc (RBC) 33.0 G/GL 32-36 [facility] Work Phone: 1() 0 MCV 92.0 fL Invalid Interpretation Code 80-94 [facility] Work Phone: 1() 0 MCV Entitic volume (RBC) 92.0 fL 80-94 [facility] Work Phone: 1() 0 Platelet mean volume Entitic volume (Bld) 9.5 fL 6.2-12.0 [facility] Work Phone: 1() 0 Platelets 212 10*3/mm3 Invalid Interpretation Code 150-450 [facility] Work Phone: 1() 0 Platelets #/vol (Bld) 212 10*3/mm3 150-450 [facility] Work Phone: 1() 0 PMV by Poornima 9.5 fL Invalid Interpretation Code 6.2-12.0 [facility] Work Phone: [phone] RBC #/vol (Bld) 4.48 10*6/uL Low 4.6-6.2 [facility] Work Phone: [phone] RDW-CA 12.8 % Invalid Interpretation Code 11.6-14.6 [facility] Work Phone: [phone] red blood cell distribution width, size density 42.9 fL Invalid Interpretation Code 35.1-43.9 [facility] Work Phone: [phone] WBC #/vol (Bld) 15.2 10*3/uL High 4.4-11.0 [facility] Work Phone: [phone] WBC (Leukocytes) 15.2 10*3/uL High 4.4-11.0 [facility] Work Phone: [phone] Lab Report: Lipid Profileon 04-16-2017 Cholesterol 133 mg/dL 200 [facility] Work Phone: [phone] HDL Cholesterol 35 mg/dL Low [facility] Work Phone: [phone] LDL Cholesterol 74 mg/dL 0-130 [facility] Work Phone: [phone] Triglyceride 120 mg/dL [facility] Work Phone: [phone] very low density lipoproteins 24 mg/dL 5-40 [facility] Work Phone: [phone] Lab Report: Liver Profileon 04-16-2017 Alanine aminotransferase (ALT) 48 U/L 12-78 [facility] Work Phone: [phone] Albumin 3.6 g/dL 3.4-5.0 [facility] Work Phone: [phone] Alkaline phosphatase (ALP) 83 U/L Invalid Interpretation Code 45-117 [facility] Work Phone: [phone] ALP enzyme act/vol (Bld) 83 U/L 45-117 [facility] Work Phone: [phone] Aspartate aminotransferase (AST) 17 U/L 15-37 [facility] Work Phone: [phone] Bilirubin (direct) 0.16 mg/dL 0.00-0.[address] [facility] Work Phone: [phone] Bilirubin (total) 0.60 mg/dL 0.20-1.00 [facility] Work Phone: [phone] Globulin 4.2 g/dL High 2.3-3.5 [facility] Work Phone: [phone] Globulin mass conc (S) 4.2 g/dL High 2.3-3.5 [facility] Work Phone: [phone] Protein 7.8 g/dL 6.4-8.2 [facility] Work Phone: [phone] Microbiology: (P) Culture, D eep Woundon 04-16-2017 GE use only - for [employer] import when terms are not otherwise specified . Invalid Interpretation Code [facility] Work Phone: [phone] Office Visiton 04-15-2017 Dietary management education, guidance, and counseling (procedure) yes Invalid Interpretation Code [facility] Work Phone: [phone] Documentation of current medications (procedure) Done Invalid Interpretation Code [facility] Work Phone: [phone] Protein mass conc Done [facility] Work Phone: [phone] Tobacco smoking status NHIS Current Invalid Interpretation Code [facility] Work Phone: [phone] Tobacco smoking status NHIS Never smoker [facility] Work Phone: [phone] Tobacco use [facility] Never smoker Invalid Interpretation Code [facility] Work Phone: [phone] Clinical Lists 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 ABNORMAL Invalid Interpretation Code [facility] Work Phone: [phone] Interpretation Sinus Rhythm - Negative T-waves -Possible Anterior ischemia. ABNORMAL [facility] Work Phone: [phone] P Wright 51 deg [facility] Work Phone: [phone] P wave axis, electrocardiogram 51 deg Invalid Interpretation Code [facility] Work Phone: [phone] [place] Interval 156 ms [facility] Work Phone: [phone] [place] interval, electrocardiogram 156 ms Invalid Interpretation Code [facility] Work Phone: [phone] Pulse (Heart Rate) 70 /min Invalid Interpretation Code [facility] Work Phone: [phone] QRS axis, electrocardiogram 2 deg Invalid Interpretation Code [facility] Work Phone: [phone] QRS Duration 96 ms [facility] Work Phone: [phone] QRS duration, electrocardiogram 96 ms Invalid Interpretation Code [facility] Work Phone: [phone] QT Interval new path ms [facility] Work Phone: [phone] QT interval, electrocardiogram new path ms Invalid Interpretation Code [facility] Work Phone: [phone] QTc Scott 417 ms [facility] Work Phone: [phone] T Wright 110 deg [facility] Work Phone: T wave axis, electrocardiogram 110 deg Invalid Interpretation Code [facility] Work Phone: [phone] Lab Report: Lipid Profileon 10-20-2016 Cholesterol in HDL mass conc 34 mg/dL Low [facility] Work Phone: [phone] Cholesterol in LDL mass conc 72 mg/dL 0-130 [facility] Work Phone: [phone] Cholesterol mass conc 134 mg/dL [facility] Work Phone: [phone] Lipoprotein.pre-beta mass conc 28 mg/dL 5-40 [facility] Work Phone: [phone] Triglyceride mass conc 139 mg/dL [facility] Work Phone: [phone] Lab Report: Liver Profileon 10-20-2016 Albumin mass conc 4.1 g/dL 3.4-5.0 [facility] Work Phone: [phone] ALP enzyme act/vol (Bld) 78 U/L 45-117 [facility] Work Phone: [phone] ALT enzyme act/vol 54 U/L 12-78 [facility] Work Phone: [phone] AST enzyme act/vol 29 U/L 15-37 [facility] Work Phone: [phone] Bilirubin mass conc 0.60 mg/dL 0.20-1.00 [facility] Work Phone: [phone] Bilirubin.direct mass conc 0.13 mg/dL 0.00-0.30 [facility] Work Phone: [phone] Globulin mass conc (S) 3.2 g/dL 2.3-3.5 OS [facility] Work Phone: [phone] Protein mass conc 7.3 g/dL 6.4-8.2 [facility] Work Phone: [phone] Lab Report: Basic Metabolic Profile (BMP)on 02-24-2016 Anion gap molar conc 6 mmol/L 5-15 [facility] Work [phone] Calcium mass conc 8.9 mg/dL 8.5-10.1 [facility] Work Phone: [phone] Chloride molar conc 106 mmol/L 98-107 [facility] Work Phone: [phone] CO2 ppres (BldV) 27.0 mmol/L 21.0-32.0 [facility] Work Phone: [phone] Creatinine mass conc 0.96 mg/dL 0.70-1.30 [facility] Work Phone: [phone] EST GFR - AA 102 mL/min >60 [facility] Work Phone: [phone] GFR/1.73 sq M predicted among non-blacks MDRD vol rate/area (S/P/Bld) 85 mL/min/{1.73_m2} >60 [facility] Medicine and [facility] Work Phone: [phone] Glucose mass conc 102 mg/dL 70-110 [facility] Medicine [facility] Orthopa[facility]ics Work Phone: [phone] Potassium molar conc 4.2 mmol/L 3.5-5.1 [facility] Medicine and Orthopaedics Work Phone: [phone] Sodium molar conc 139 mmol/L 136-145 [facility] Work Phone: [phone] Urea nitrogen mass conc 17 mg/dL 7-18 [facility] Work Phone: [phone] Urea nitrogen/Creatinine mass ratio 17.7 RATIO 10-20 [facility] Work Phone: [phone] Lab Report: CBC-Complete Blo od Cnt No Diffon 02-24-2016 Erythrocyte distribution width Ratio (RBC) 41.4 fL 35.1-43.9 [facility] Medicine and Orthopaedics Work Phone: [phone] Erythrocyte distribution width Ratio (RBC) 12.5 % 11.6-14.6 [facility] Work Phone: [phone] Hematocrit Volume Fraction (Bld) 45.1 % 40-54 [facility] Work Phone: [phone] Hemoglobin mass conc (Bld) 15.4 g/dL 13.0-16.5 [facility] Work Phone: [phone] MCH Entitic mass (RBC) 30.8 pg 27.0-32.0 [facility] Work Phone: [phone] MCHC mass conc (RBC) 34.1 G/GL 32-36 [facility] Work Phone: [phone] MCV Entitic volume (RBC) 90.2 fL 80-94 [facility] Work Phone: [phone] Platelet mean volume Entitic volume (Bld) 10.6 fL 6.2-12.0 [facility] Work Phone: [phone] Platelets #/vol (Bld) 177 10*3/mm3 150-450 [facility] Work Phone: [phone] RBC #/vol (Bld) 5.00 10*6/uL 4.6-6.2 [facility] Work Phone: [phone] WBC #/vol (Bld) 4.9 10*3/uL 4.4-11.0 [facility] Work Phone: [phone] Clinical Lists Updateon 04-0 Thyrotropin Qn 2.66 u[iU]/mL Invalid Interpretation Code [facility] Work Phone: [phone] Office Visit: [facility] 09-07-20 14 cardiac risk group C Invalid Interpretation Code [facility] Work Phone: [phone] General cardiovascular disease 10Y risk [#] [place]D'Agost[place] N/A Invalid Interpretation Code [facility] Work Phone: Vital Signs Date Time Vital Sign Value Performing Clinician Facility 06-24-2024 13:58-0400 Body height 185.4 cm Edmund Kamara MD Work Phone: [facility] 06-24-2024 13:58-0400 Body mass index (BMI) [Ratio] 31.93 kg/m2 Edmund Kamara MD Work Phone: [facility] 06-24-2024 13:58-0400 Body weight 109.77 kg Edmund Kamara MD Work Phone: [facility] 06-24-2024 13:58-0400 Diastolic blood pressure 70 mm[Hg] Edmund Kamara MD Work Phone: [facility] 06-24-2024 13:58-0400 Heart rate 59 /min Edmund Kamara MD Work Phone: [facility] 06-24-2024 13:58-0400 Systolic blood pressure 132 mm[Hg] Edmund Kamara MD Work Phone: [facility] 03-25-2024 14:37-0400 Body height 185.4 cm Deena Francois MD Work Phone: [facility] 03-25-2024 14:37-0400 Body mass index (BMI) [Ratio] 31.14 kg/m2 Deena Francois MD Work Phone: [facility] 03-25-2024 14:37-0400 Body weight 107.05 kg Deena Francois MD Work Phone: [facility] 03-25-2024 14:37-0400 Diastolic blood pressure 86 mm[Hg] Deena Francois MD Work Phone: [facility] 03-25-2024 14:37-0400 Heart rate 61 /min Deena Francois MD Work Phone: [facility] 03-25-2024 14:37-0400 SaO2% (BldA) [Mass fraction] 100 % Deena Francois MD Work Phone: [facility] 03-25-2024 14:37-0400 Systolic blood pressure 147 mm[Hg] Deena Francois MD Work Phone: [facility] 01-08-2024 15:24-0400 Body mass index (BMI) [Ratio] 31.8 kg/m2 Deena Francois MD Work Phone: [facility] 01-08-2024 15:24-0400 Body weight 109.32 kg Deena Francois MD Work Phone: [facility] 01-08-2024 15:24-0400 Diastolic blood pressure 90 mm[Hg] Deena Francois MD Work Phone: [facility] 01-08-2024 15:24-0400 Heart rate 84 /min Deena Francois MD Work Phone: [facility] 01-08-2024 15:24-0400 Respiratory rate 14 /min Deena Francois MD Work Phone: [facility] 01-08-2024 15:24-0400 SaO2% (BldA) [Mass fraction] 99 % Deena Francois MD Work Phone: [facility] 01-08-2024 15:24-0400 Systolic blood pressure 145 mm[Hg] Deena Francois MD Work Phone: [facility] 12-30-2023 10:19-0400 Body mass index (BMI) [Ratio] 31.93 kg/m2 Card Galloway Work Phone: [facility] 12-30-2023 10:19-0400 Body weight 109.77 kg Card Galloway Work Phone: [facility] 12-30-2023 10:19-0400 Diastolic blood pressure 84 mm[Hg] Card Galloway Work Phone: [facility] 12-30-2023 10:19-0400 Heart rate 62 /min Card Galloway Work Phone: [facility] 12-30-2023 10:19-0400 Systolic blood pressure 130 mm[Hg] Card Galloway Work Phone: [facility] 11-04-2023 07:28-0500 Body weight 111.13 kg Card Galloway Work Phone: [facility] 11-04-2023 07:28-0500 Diastolic blood pressure 76 mm[Hg] Card Galloway Work Phone: [facility] 11-04-2023 07:28-0500 Heart rate 73 /min Card Galloway Work Phone: [facility] 11-04-2023 07:28-0500 Systolic blood pressure 128 mm[Hg] Card Galloway Work Phone: [facility] 09-18-2023 15:29-0500 Body height 185.4 cm Deena Francois MD Work Phone: [facility] 09-18-2023 15:29-0500 Body weight 111.13 kg Deena Francois MD Work Phone: [facility] 09-18-2023 15:29-0500 Diastolic blood pressure 86 mm[Hg] Deena Francois MD Work Phone: [facility] 09-18-2023 15:29-0500 Heart rate 86 /min Deena Francois MD Work Phone: [facility] 09-18-2023 15:29-0500 SaO2% (BldA) [Mass fraction] 98 % Deena Francois MD Work Phone: [facility] 09-18-2023 15:29-0500 Systolic blood pressure 147 mm[Hg] Deena Francois MD Work Phone: [facility] 08-08-2023 14:01-0500 Body height 185.4 cm Justo Mehta MOLD INSPECTOR.PROFESSIONAL BENEFITS SALES CONSULTANT Work Phone: [facility] 08-08-2023 14:01-0500 Body temperature 98.1 [degF] Justo Mehta MOLD INSPECTOR.PROFESSIONAL BENEFITS SALES CONSULTANT Work Phone: [facility] 08-08-2023 14:01-0500 Body weight 109.05 kg Justo Mehta MOLD INSPECTOR.PROFESSIONAL BENEFITS SALES CONSULTANT Work Phone: [facility] 08-08-2023 14:01-0500 Diastolic blood pressure 79 mm[Hg] Justo Mehta MOLD INSPECTOR.PROFESSIONAL BENEFITS SALES CONSULTANT Work Phone: [facility] 08-08-2023 14:01-0500 Heart rate 90 /min Justo Mehta MOLD INSPECTOR.PROFESSIONAL BENEFITS SALES CONSULTANT Work Phone: [facility] 08-08-2023 14:01-0500 Respiratory rate 14 /min Justo Mehta MOLD INSPECTOR.PROFESSIONAL BENEFITS SALES CONSULTANT Work Phone: [facility] 08-08-2023 14:01-0500 SaO2% (BldA) [Mass fraction] 97 % Justo Mehta MOLD INSPECTOR.PROFESSIONAL BENEFITS SALES CONSULTANT Work Phone: [facility] 08-08-2023 14:01-0500 Systolic blood pressure 135 mm[Hg] Justo Mehta MOLD INSPECTOR.PROFESSIONAL BENEFITS SALES CONSULTANT Work Phone: [facility] 07-24-2023 12:50-0500 Diastolic blood pressure 79 mm[Hg] Deena Francois MD Work Phone: [facility] 07-24-2023 12:50-0500 Systolic blood pressure 145 mm[Hg] Deena Francois MD Work Phone: [facility] 07-24-2023 12:47-0500 Body height 185.4 cm Deena Francois MD Work Phone: [facility] 07-24-2023 12:47-0500 Body weight 112.04 kg Deena Francois MD Work Phone: [facility] 07-24-2023 12:47-0500 Heart rate 90 /min Deena Francois MD Work Phone: [facility] 07-24-2023 12:47-0500 SaO2% (BldA) [Mass fraction] 99 % Deena Francois MD Work Phone: [facility] 06-10-2023 07:54-0400 Body height 185.[address] Geoff Sainz [facility] 06-10-2023 07:54-0400 Body weight 109.[address] Geoff Sainz [facility] 06-07-2023 08:33-0400 Body mass index (BMI) [Ratio] 31.8 kg/m2 Dr. Geoff Sainz [facility] 04-30-2023 09:01-0400 Body height 185.[address] Geoff Sainz Work Phone: [facility] 04-30-2023 09:01-0400 Body mass index (BMI) [Ratio] 32 kg/m2 Dr. Geoff Sainz Work Phone: [facility] 04-30-2023 09:01-0400 Body weight 110.[address] Geoff Sainz Work Phone: [facility] 04-30-2023 09:01-0400 Diastolic blood pressure 77 mm[Hg] Dr. Geoff Sainz Work Phone: [facility] 04-30-2023 09:01-0400 Heart rate 78 /min Dr. Geoff Sainz Work Phone: [facility] 04-30-2023 09:01-0400 Respiratory rate 18 /min Dr. Geoff Sainz Work Phone: [facility] 04-30-2023 09:01-0400 SaO2% (BldA) [Mass fraction] 99 % Dr. Geoff Sainz Work Phone: [facility] 04-30-2023 09:01-0400 Systolic blood pressure 121 mm[Hg] Dr. Geoff Sainz Work Phone: [facility] 01-15-2023 09:51-0400 Body mass index (BMI) [Ratio] 33 kg/m2 Dr. Geoff Sainz Work Phone: [facility] 01-15-2023 09:51-0400 Body temperature 97.5 [degF] Dr. Geoff Sainz Work Phone: [facility] 01-15-2023 09:51-0400 Body weight 113.[address] Geoff Sainz Work Phone: [facility] 01-15-2023 09:51-0400 Diastolic blood pressure 78 mm[Hg] Dr. Geoff Sainz Work Phone: [facility] 01-15-2023 09:51-0400 Heart rate 86 /min Dr. Geoff Sainz Work Phone: [facility] 01-15-2023 09:51-0400 Respiratory rate 16 /min Dr. Geoff Sainz Work Phone: [facility] 01-15-2023 09:51-0400 SaO2% (BldA) [Mass fraction] 97 % Dr. Geoff Sainz Work Phone: [facility] 01-15-2023 09:51-0400 Systolic blood pressure 142 mm[Hg] Dr. Geoff Sainz Work Phone: [facility] 08-06-2022 10:11-0500 Body height 185.[address] Geoff Sainz Work Phone: [facility] Work Phone: 08-06-2022 10:11-0500 Body mass index (BMI) [Ratio] 33 kg/m2 Dr. Geoff Sainz Work Phone: [facility] Work Phone: 08-06-2022 10:11-0500 Body temperature 97.3 [degF] Dr. Geoff Sainz Work Phone: [facility] Work Phone: 08-06-2022 10:11-0500 Body weight 113.[address] Geoff Sainz Work Phone: [facility] Work Phone: 08-06-2022 10:11-0500 Diastolic blood pressure 94 mm[Hg] Dr. Geoff Sainz Work Phone: [facility] Work Phone: 08-06-2022 10:11-0500 Heart rate 82 /min Dr. Geoff Sainz Work Phone: [facility] Work Phone: 08-06-2022 10:11-0500 Respiratory rate 16 /min Dr. Geoff Sainz Work Phone: [facility] Work Phone: 08-06-2022 10:11-0500 SaO2% (BldA) [Mass fraction] 99 % Dr. Geoff Sainz Work Phone: [facility] Work Phone: 08-06-2022 10:11-0500 Systolic blood pressure 148 mm[Hg] Dr. Geoff Sainz Work Phone: [facility] Work Phone: 07-31-2022 11:55-0500 Diastolic blood pressure 70 mm[Hg] Dr. Geoff Sainz Work Phone: [facility] Work Phone: 07-31-2022 11:55-0500 Heart rate 84 /min Dr. Geoff Sainz Work Phone: [facility] Work Phone: 07-31-2022 11:55-0500 Respiratory rate 15 /min Dr. Geoff Sainz Work Phone: [facility] Work Phone: 07-31-2022 11:55-0500 SaO2% (BldA) [Mass fraction] 96 % Dr. Geoff Sainz Work Phone: [facility] Work Phone: 07-31-2022 11:55-0500 Systolic blood pressure 106 mm[Hg] Dr. Geoff Sainz Work Phone: [facility] Work Phone: 07-31-2022 09:18-0500 Body mass index (BMI) [Ratio] 33 kg/m2 Dr. Geoff Sainz Work Phone: [facility] Work Phone: 07-31-2022 09:18-0500 Body temperature 98.9 [degF] Dr. Geoff Sainz Work Phone: [facility] Work Phone: 07-31-2022 09:18-0500 Body weight 113.[address] Geoff Sainz Work Phone: [facility] Work Phone: 07-25-2022 15:40-0500 Body mass index (BMI) [Ratio] 33.2 kg/m2 Dr. Geoff Sainz Work Phone: [facility] Work Phone: 07-25-2022 15:40-0500 Body temperature 98.9 [degF] Dr. Geoff Sainz Work Phone: [facility] Work Phone: 07-25-2022 15:40-0500 Body weight 114.[address] Geoff Sainz Work Phone: [facility] Work Phone: 07-25-2022 15:40-0500 Diastolic blood pressure 81 mm[Hg] Dr. Geoff Sainz Work Phone: [facility] Work Phone: 07-25-2022 15:40-0500 Heart rate 97 /min Dr. Geoff Sainz Work Phone: [facility] Work Phone: 07-25-2022 15:40-0500 Respiratory rate 16 /min Dr. Geoff Sainz Work Phone: [facility] Work Phone: 07-25-2022 15:40-0500 SaO2% (BldA) [Mass fraction] 97 % Dr. Geoff Sainz Work Phone: [facility] Work Phone: 07-25-2022 15:40-0500 Systolic blood pressure 130 mm[Hg] Dr. Geoff Sainz Work Phone: [facility] Work Phone: 07-25-2022 14:40-0500 Body mass index (BMI) [Ratio] 33.3 kg/m2 Dr. Geoff Sainz Work Phone: [facility] Work Phone: 07-25-2022 14:40-0500 Body weight 114.[address] Geoff Sainz Work Phone: [facility] Work Phone: 07-25-2022 14:40-0500 Diastolic blood pressure 70 mm[Hg] Dr. Geoff Sainz Work Phone: [facility] Work Phone: 07-25-2022 14:40-0500 Heart rate 100 /min Dr. Geoff Sainz Work Phone: [facility] Work Phone: 07-25-2022 14:40-0500 Respiratory rate 18 /min Dr. Geoff Sainz Work Phone: [facility] Work Phone: 07-25-2022 14:40-0500 Systolic blood pressure 128 mm[Hg] Dr. Geoff Sainz Work Phone: [facility] Work Phone: 05-08-2017 16:29-0400 BMI (Body Mass Index) 34.17 kg/m2 [facility] Work Phone: 05-08-2017 16:29-0400 [...] surface area Derived from formula 78.28 mL/min Katie Harmon [facility] Work Phone: 11-02-2016 11:38-0500 Heart rate 70 /min [facility] Work Phone: 11-02-2016 11:29-0500 BMI (Body Mass Index) 35.03 kg/m2 [facility] Work Phone: 11-02-2016 11:29-0500 BP Diastolic 84 mm[Hg] [facility] Work Phone: 11-02-2016 11:29-0500 BP Systolic 130 mm[Hg] [facility] Work Phone: 11-02-2016 11:29-0500 BSA (Body Surface Area) 2.33 m2 [facility] Work Phone: 11-02-2016 11:29-0500 Pulse (Heart Rate) 70 /min Ann Solis [facility] Work Phone: 11-02-2016 11:29-0500 Respiratory Rate 16 /min [facility] ter [facility] Work Phone: 11-02-2016 11:29-0500 Weight 113.94 kg [facility] Work Phone: 02-24-2016 10:23-0400 Body surface area Derived from formula 92.48 mL/min [facility] Work Phone: 07-22-2014 15:29-0500 Height 180.34 cm [facility] Work Phone: Encounters Encounter Date Encounter Type Care Provider Facility Start: 03-05-2025 End: 03-05-2025 Refill Deena Francois MD Work Phone: Cardiology Comment on above: Refill Request Start: 12-24-2024 End: 12-24-2024 ambulatory Abdiel Mathews Facility[place] Start: 12-10-2024 End: 12-10-2024 ambulatory Abdiel Mathews AUXILIARY POWERPLANT OPERATOR-C Work Phone: [facility] Work Phone: Start: 12-10-2024 End: 12-10-2024 Discharged Recurring Abdiel Mathews AUXILIARY POWERPLANT OPERATOR-C -Physical Therapy Work Phone: Start: 09-07-2024 End: 09-07-2024 Patient encounter procedure Abdiel Mathews AUXILIARY POWERPLANT OPERATOR-C -Radiology, [facility] Work Phone: Start: 09-07-2024 End: 09-07-2024 ambulatory Abdiel Mathews Facility:[facility] Start: 08-19-2024 End: 08-19-2024 ambulatory DEENA FRANCOIS Facility:[facility] Start: 08-19-2024 End: 08-19-2024 Patient encounter procedure Harriet Hogan [facility] Work Phone: [facility] Comment on above: HOCM (hypertrophic o bstructive cardiomyopathy) (HCC) Start: 06-24-2024 End: 06-24-2024 Patient encounter procedure Edmund Kamara MD Work Phone: Cardiology Comment on above: HOCM (hypertrophic o bstructive cardiomyopathy) (HCC); NSVT (nonsustained ventricular tachycardia) (HCC) Start: 06-24-2024 End: 06-24-2024 [facility] Facility:[facility] Start: 06-22-2024 End: 06-22-2024 Orders Only Edmund Kamara MD Work Phone: Cardiology Comment on above: NSVT (nonsustained v entricular tachycardia) (HCC) (Primary Dx); HOCM (hypertrophic obstructive cardiomyopathy) (HCC) Start: 06-08-2024 End: 06-08-2024 Telephone encounter Deena Francois MD Work Phone: Cardiology Start: 05-05-2024 End: 05-05-2024 Telephone encounter Deena Francois MD Work Phone: Cardiology Comment on above: fax confirmation Start: 05-04-2024 End: 05-04-2024 [facility] Facility:[facility] Start: 05-04-2024 Encounter for preprocedural cardiovascular examination DEENA FRANCOIS [facility] Start: 04-30-2024 End: 04-30-2024 Telephone encounter Deena Francois MD Work Phone: Cardiology Comment on above: HOCM (hypertrophic o bstructive cardiomyopathy) (HCC) (Primary Dx) Start: 04-28-2024 [facility] Facility:[facility] Start: 04-28-2024 End: 04-28-2024 Subsequent hospital visit by physician [facility] Work Phone: Cardiology Lab Comment on above: HOCM (hypertrophic o bstructive cardiomyopathy) (HCC) [I42.1] Start: 04-28-2024 End: 04-29-2024 [facility] Facility:[facility] Start: 04-27-2024 End: 04-27-2024 Telephone encounter Marita Rodriguez RN Cardiology Lab Comment on above: Reminder Call Start: 04-23-2024 End: 05-06-2024 Refill Edmund Allen MD Work Phone: Cardiology Comment on above: Refill Request Start: 04-20-2024 Telephone encounter Deena Francois MD Work Phone: Cardiology Comment on above: Patient Update Start: 04-01-2024 Telephone encounter Deena Francois MD Work Phone: Cardiology Start: 03-25-2024 End: 03-25-2024 [facility] Facility:[facility] Start: 03-25-2024 End: 03-25-2024 Patient encounter procedure Deena Francois MD Work Phone: Cardiology Comment on above: Primary hypertension (Primary Dx); Aortic root dilation (HCC); Encounter for preprocedural cardiovascular examination; History of aortic valve replacement Start: 03-25-2024 End: 03-25-2024 Patient encounter status Deena Francois MD Work Phone: [facility] Start: 03-25-2024 End: 03-25-2024 [facility] Start: 03-18-2024 Refill Deena Francois MD Work Phone: Cardiology Comment on above: Refill Request Start: 03-12-2024 Refill Deena Francois MD Work Phone: Cardiology Comment on above: Refill Request Start: 02-08-2024 Orders Only Deena Francois MD Work Phone: Cardiology Comment on above: HOCM (hypertrophic o bstructive cardiomyopathy) (HCC) (Primary Dx) Start: 01-08-2024 End: 01-08-2024 ambulatory DEENA FRANCOIS Facility:[facility] Start: 01-08-2024 End: 01-08-2024 Patient encounter procedure Deena Francois MD Work Phone: Cardiology Comment on above: Essential hypertensi on (Primary Dx); S/P AVR (aortic valve replacement) and aortoplasty; Chronic heart failure with preserved ejection fraction (HCC); HOCM (hypertrophic obstructive cardiomyopathy) (HCC) Start: 01-08-2024 End: 01-08-2024 ambulatory DEENA FRANCOIS Facility:[facility] Start: 01-08-2024 End: 01-08-2024 Subsequent hospital visit by physician Florence Ramachandran ([facility]) Work Phone: Radiology Comment on above: Vasculopathy [I99.9] Start: 01-01-2024 End: 01-01-2024 [facility] Start: 01-01-2024 End: 01-01-2024 Patient encounter procedure Card Rehab Phase 2 [place] Work Phone: [facility] Cardiac Rehab Comment on above: S/P AVR (aortic valv e replacement) (Primary Dx) Start: 12-30-2023 End: 12-30-2023 [facility] Start: 12-30-2023 End: 12-30-2023 Patient encounter procedure Card Rehab Phase 2 [place] Work Phone: [facility]iac [facility] Comment on above: S/P AVR (aortic valv e replacement) (Primary Dx) Start: 12-27-2023 End: 12-27-2023 [facility] Start: 12-27-2023 End: 12-27-2023 Patient encounter procedure Card Rehab Phase 2 [place] Work Phone: [facility] Comment on above: S/P AVR (aortic valv e replacement) (Primary Dx) Start: 12-25-2023 End: 12-25-2023 [facility] Start: 12-25-2023 End: 12-25-2023 Patient encounter procedure Card Rehab Phase 2 [place] Work Phone: [facility] Comment on above: S/P AVR (aortic valv e replacement) (Primary Dx) Start: 12-23-2023 End: 12-23-2023 [facility] Start: 12-23-2023 End: 12-23-2023 Patient encounter procedure Card Rehab Phase 2 [place] Work Phone: [facility] Comment on above: S/P AVR (aortic valv e replacement) (Primary Dx) Start: 12-20-2023 End: 12-20-2023 [facility] Start: 12-20-2023 End: 12-20-2023 Patient encounter procedure Card Rehab Phase 2 [place] Work Phone: [facility] Comment on above: S/P AVR (aortic valv e replacement) (Primary Dx) Start: 12-18-2023 End: 12-18-2023 [facility] Start: 12-18-2023 End: 12-18-2023 Patient encounter procedure Card Rehab Phase 2 [place] Work Phone: [facility] Comment on above: S/P AVR (aortic valv e replacement) (Primary Dx) Start: 12-16-2023 End: 12-16-2023 [facility] Start: 12-16-2023 End: 12-16-2023 Patient encounter procedure Card Rehab Phase 2 [place] Work Phone: [facility] Comment on above: S/P AVR (aortic valv e replacement) (Primary Dx) Start: 12-13-2023 End: 12-13-2023 [facility] Start: 12-13-2023 End: 12-13-2023 Patient encounter procedure Card Rehab Phase 2 [place] Work Phone: [facility] Comment on above: S/P AVR (aortic valv e replacement) (Primary Dx) Start: 12-11-2023 End: 12-11-2023 [facility] Start: 12-11-2023 End: 12-11-2023 Patient encounter procedure Card Rehab Phase 2 [place] Work Phone: [facility] Comment on above: S/P AVR (aortic valv e replacement) (Primary Dx) Start: 12-09-2023 End: 12-09-2023 [facility] Start: 12-09-2023 End: 12-09-2023 Patient encounter procedure Card Rehab Phase 2 [place] Work Phone: [facility] Comment on above: S/P AVR (aortic valv e replacement) (Primary Dx) Start: 12-06-2023 End: 12-06-2023 [facility] Start: 12-04-2023 End: 12-04-2023 [facility] Start: 12-04-2023 End: 12-04-2023 Patient encounter procedure Card Rehab Phase 2 [place] Work Phone: [facility] Comment on above: S/P AVR (aortic valv e replacement) (Primary Dx) Start: 12-02-2023 End: 12-02-2023 [facility] Start: 12-02-2023 End: 12-02-2023 Patient encounter procedure Card Rehab Phase 2 [place] Work Phone: [facility] Comment on above: S/P AVR (aortic valv e replacement) (Primary Dx) Start: 11-29-2023 End: 11-29-2023 [facility] Start: 11-29-2023 End: 11-29-2023 Patient encounter procedure Card Rehab Phase 2 [place] Work Phone: [facility] Comment on above: S/P AVR (aortic valv e replacement) (Primary Dx) Start: 11-27-2023 End: 11-27-2023 [facility] Start: 11-27-2023 End: 11-27-2023 Patient encounter procedure Card Rehab Phase 2 [place] Work Phone: [facility] Comment on above: S/P AVR (aortic valv e replacement) (Primary Dx) Start: 11-25-2023 End: 11-25-2023 [facility] Start: 11-25-2023 End: 11-25-2023 Patient encounter procedure Card Rehab Phase 2 [place] Work Phone: [facility] Comment on above: S/P AVR (aortic valv e replacement) (Primary Dx) Start: 11-22-2023 End: 11-22-2023 [facility] Start: 11-22-2023 End: 11-22-2023 Patient encounter procedure Card Rehab Phase 2 [place] [email or web address] Phone: [facility] Comment on above: S/P AVR (Primary Dx) Start: 11-20-2023 End: 11-20-2023 [facility] Start: 11-20-2023 End: 11-20-2023 Patient encounter procedure Card Rehab Phase 2 [place] [email or web address] Phone: [facility] Comment on above: S/P AVR (aortic valv e replacement) (Primary Dx) Start: 11-18-2023 End: 11-18-2023 [facility] Start: 11-18-2023 End: 11-18-2023 Patient encounter procedure Card Rehab Phase 2 [place] Work Phone: [facility] Comment on above: S/P AVR (aortic valv e replacement) (Primary Dx) Start: 11-15-2023 End: 11-15-2023 [facility] Start: 11-15-2023 End: 11-15-2023 Patient encounter procedure Card Rehab Phase 2 [place] Work Phone: [facility] Comment on above: S/P AVR (aortic valv e replacement) (Primary Dx) Start: 11-13-2023 End: 11-13-2023 [facility] Start: 11-13-2023 End: 11-13-2023 Patient encounter procedure Card Rehab Phase 2 [place] Work Phone: [facility] Comment on above: S/P AVR (aortic valv e replacement) (Primary Dx) Start: 11-11-2023 End: 11-11-2023 [facility] Start: 11-11-2023 End: 11-11-2023 Patient encounter procedure Card Rehab Phase 2 [place] Work Phone: [facility] Comment on above: S/P AVR (aortic valv e replacement) (Primary Dx) Start: 11-08-2023 End: 11-08-2023 [facility] Start: 11-08-2023 End: 11-08-2023 Patient encounter procedure Card Rehab Phase 2 [place] Work Phone: [facility] Comment on above: S/P AVR (aortic valv e replacement) (Primary Dx) Start: 11-06-2023 End: 11-06-2023 [facility] Start: 11-06-2023 End: 11-06-2023 Patient encounter procedure Card Rehab Phase 2 [place] Work Phone: [facility] Comment on above: S/P AVR (aortic valv e replacement) (Primary Dx) Start: 11-04-2023 End: 11-04-2023 [facility] Start: 11-01-2023 End: 11-01-2023 [facility] Start: 11-01-2023 End: 11-01-2023 Patient encounter procedure Card Rehab Phase 2 [place] Work Phone: [facility] Comment on above: S/P AVR (aortic valv e replacement) (Primary Dx) Start: 10-30-2023 End: 10-30-2023 [facility] Start: 10-30-2023 End: 10-30-2023 Patient encounter procedure Card Rehab Phase 2 [place] Work Phone: [facility] Comment on above: S/P AVR (aortic valv e replacement) (Primary Dx) Start: 10-28-2023 End: 10-28-2023 ambulatory [facility] Facility:[facility] Start: 10-28-2023 End: 10-28-2023 Patient encounter procedure Card Rehab Phase 2 [place] Work Phone: [facility] Comment on above: S/P AVR (aortic valv e replacement) (Primary Dx) Start: 10-25-2023 End: 10-25-2023 [facility] Facility:[facility] Start: 10-25-2023 End: 10-25-2023 Patient encounter procedure Card Rehab Phase 2 [place] Work Phone: [facility] Comment on above: S/P AVR (aortic valv e replacement) (Primary Dx) Start: 10-23-2023 End: 10-23-2023 [facility] Start: 10-23-2023 End: 10-23-2023 Patient encounter procedure Card Rehab Phase 2 [facility] Phone: [facility] Comment on above: S/P AVR (aortic valv e replacement) (Primary Dx) Start: 10-21-2023 End: 10-21-2023 [facility] ABDIEL BISI Facility:[facility] Start: 10-21-2023 End: 10-21-2023 Patient encounter procedure Card Rehab Phase 2 [place] Work Phone: [facility] Comment on above: S/P AVR (aortic valv e replacement) (Primary Dx) Start: 10-18-2023 End: 10-18-2023 [facility] Start: 10-18-2023 End: 10-18-2023 Patient encounter procedure Card Rehab Phase 2 [place] Work Phone: [facility] Comment on above: S/P AVR (aortic valv e replacement) (Primary Dx) Start: 10-16-2023 End: 10-16-2023 [facility] Start: 10-16-2023 End: 10-16-2023 Patient encounter procedure Card Rehab Phase 2 [place] Work Phone: [facility] Comment on above: S/P AVR (aortic valv e replacement) (Primary Dx) Start: 10-14-2023 End: 10-14-2023 [facility] Start: 10-14-2023 End: 10-14-2023 Patient encounter procedure Card Rehab Phase 2 [place] Work Phone: [facility] Comment on above: S/P AVR (aortic valv e replacement) (Primary Dx) Start: 10-11-2023 End: 10-11-2023 [facility] Start: 10-11-2023 End: 10-11-2023 Patient encounter procedure Card Rehab Phase 2 [place] Work Phone: [facility] Comment on above: S/P AVR (aortic valv e replacement) (Primary Dx) Start: 10-09-2023 End: 10-09-2023 [facility] Start: 09-18-2023 End: 09-18-2023 ambulatory DEENA FRANCOIS [facility] Start: 09-18-2023 End: 09-18-2023 Patient encounter procedure Deena Francois MD Work Phone: Cardiology Comment on above: Hypertrophic cardiom yopathy (HCC) (Primary Dx); Aortic root dilatation (HCC); Angina pectoris (HCC); Obesity, Class I, BMI 30-34.9; Vasculopathy; Adverse effect of treatment, initial encounter; S/P AVR (aortic valve replacement) and aortoplasty Start: 09-18-2023 End: 09-18-2023 [facility] Facility:[facility] Start: 08-12-2023 Telephone encounter Teresaalda Briceñomary R N AMBULATORY NURSING A16 Comment on above: Follow Up Phone Call (RC follow up call all clear. /) Start: 08-08-2023 End: 08-08-2023 Patient encounter procedure Justo Mehta MOLD INSPECTOR.PROFESSIONAL BENEFITS SALES CONSULTANT Work Phone: Cardiothoracic Comment on above: S/P [...] Start: 07-25-2023 End: 07-25-2023 Preprocedural examination done [facility] Work Phone: [facility] Start: 07-25-2023 End: 07-25-2023 Patient encounter status Usha Navarro MD Work Phone: [facility] Start: 07-25-2023 End: 07-25-2023 Admission to same day surgery center Anesthesia Clearance Work Phone: [facility] Work Phone: Start: 07-25-2023 End: 07-25-2023 Patient encounter procedure Usha Navarro MD Work Phone: Cardiothoracic Comment on above: Nonrheumatic aortic valve stenosis; Pre-operative cardiovascular examination; Aortic valve disorder; Hypertrophic cardiomyopathy (HCC) Pre-op exam (Primary Dx) Encounter for preope rative anesthesiology assessment for cardiac surgery (Primary Dx) Start: 07-24-2023 End: 07-24-2023 Patient encounter status Mri (I-Stat/1.5t) [facility] Start: 07-24-2023 End: 07-24-2023 Subsequent hospital visit by physician Mri Main J (I-Stat/1.5t) MRI J Comment on above: Nonrheumatic aortic valve stenosis [I35.0] Start: 07-24-2023 End: 07-24-2023 Patient encounter procedure Deena Francois MD Work Phone: Cardiology Comment on above: Nonrheumatic aortic valve stenosis; Pre-operative cardiovascular examination; Aortic valve disorder; Hypertrophic cardiomyopathy (HCC); Aortic root dilatation (HCC); Angina pectoris (HCC) Start: 07-24-2023 End: 07-24-2023 Patient encounter status Deena Francois MD Work Phone: [facility] Work Phone: Start: 07-24-2023 End: 07-24-2023 ambulatory Pulm J-1 Pulmonary Medicine Comment on above: Spirometry Start: 07-24-2023 End: 07-24-2023 Patient encounter procedure Pulm Fct Lab J-1 [facility] Start: 07-24-2023 End: 07-24-2023 Patient encounter status [facility] Start: 07-23-2023 Orders Only Tip Warner MD Work Phone: Cardiology Comment on above: Aortic valve disorde r (Primary Dx) Start: 07-22-2023 ambulatory Celeste Ni Research Coordinator CLINICAL INVEST UNIT Start: 07-10-2023 Telephone encounter Robert jiménez RN Work Phone: Case Management Comment on above: [employer] (Care Continuum Advisor Assessment ) Start: 06-10-2023 End: 06-10-2023 Admission to same day surgery center Dr. Geoff Sainz [facility]-Channel Marketing Program Manager/Special Procedures Work Phone: Start: 06-10-2023 End: 06-10-[address] Geoff Sainz [facility] Work Phone: Start: 05-30-2023 Non-patient / Non-visit Dr. Geoff shetty [facility] Start: 05-21-2023 End: 05-21-[address] Geoff Sainz [facility] Work Phone: Start: 05-21-2023 End: 05-21-[address] Geoff Sainz [facility]-Laboratory Work Phone: Start: 05-09-2023 End: 05-09-[address] Geoff Sainz Work Phone: [facility] Work Phone: Start: 05-09-2023 End: 05-09-[address] Geoff Sainz Work Phone: [facility]-Nuclear Medicine, [facility] Work Phone: Start: 04-30-2023 End: 04-30-[address] Geoff Sainz Work Phone: [facility] Work Phone: Start: 01-15-2023 End: 01-15-[address] Geoff Sainz Work Phone: [facility] Work Phone: Start: 12-21-2022 ambulatory SINGH BARRIENTOS (PA ) Facility:[facility] Start: 12-21-2022 End: 12-21-2022 Subsequent hospital visit by physician Mri [facility] (I-Stat/Lg Bore/1.5t) [facility] Comment on above: I35.0 Start: 12-07-2022 Telephone encounter Charlotte Garcia RT(R ) [facility] Comment on above: Orders Start: 08-06-2022 End: 08-06-[address] Geoff Sainz Work Phone: [facility] Work Phone: Start: 08-06-2022 End: 08-06-[address] Geoff Sainz Work Phone: [facility]-Laboratory, Specimen Start: 08-06-2022 End: 08-06-[address] Geoff Sainz Work Phone: [facility] Start: 07-31-2022 End: 07-31-[address] Geoff Sainz Work Phone: [facility] Work Phone: Start: 07-31-2022 End: 07-31-[address] Geoff Sainz Work Phone: [facility] Start: 07-25-[address] Geoff Sainz Work Phone: [facility] Start: 07-25-2022 End: 07-25-[address] Geoff Sainz Work Phone: [facility] Start: 07-25-2022 End: 07-25-[address] Geoff Sainz Work Phone: [facility] Start: 07-17-2022 Non-patient / Non-visit Dr. Adrián Sainz Work Phone: [facility] Start: 07-17-2022 End: 07-17-[address] Geoff Sainz Work Phone: [facility] Work Phone: Start: 07-17-2022 End: 07-17-[address] Geoff Sainz [facility] Start: 04-23-2022 End: 04-23-2022 Patient encounter procedure [facility] Procedures Date Procedure Procedure Detail Performing Clinician Start: 09-07-2024 Plain X-ray of shoulder Abdiel MORRIS Work Phone: Start: 04-28-2024 Echo tthrc r-t 2d w/ wo m-mode complete rest&st Deena Francois MD Work Phone: Start: 01-08-2024 Creatinine [Mass/vol ume] in Serum or Plasma [facility] Provider Start: 08-08-2023 Radiologic exam chest 2 views Usha Navarro MD Work Phone: Start: 08-08-2023 Lipid 1996 panel - S amira or Plasma Justo Mehta MOLD INSPECTOR.PROFESSIONAL BENEFITS SALES CONSULTANT Work Phone: Start: 07-25-2023 Iadna s aureus [...] Alen Phillips MD Start: 04-12-2016 End: 04-12-2016 MMM Alen Phillips MD Start: 02-27-2016 End: 02-27-2016 *Hepatic Function Panel Singh buitrago PA-C Work Phone: Start: 02-27-2016 End: 02-27-2016 Lipid panel [AGGREGATE] Singh buitrago PA-C Work Phone: Start: 01-23-2016 End: 02-27-2016 Mri joint upr extrem w/o dye Ann barragan Work Phone: Start: 01-23-2016 End: 02-27-2016 X-ray exam of shoulder Ann Toro Will Work Phone: Start: 10-10-2015 End: 02-27-2016 Follow [...] Alen Phillips MD Start: 04-11-2015 End: 04-11-2015 MMM Alen Phillips MD Start: 03-14-2015 End: 03-28-2015 *Hepatic [...] panel - Serum or Plasma Lipid Screening [facility] Start: 08-08-2028 Lipid panel Lipid Screening [facility] Start: 05-04-2027 Diabetes Screening Diabetes Screening [facility] Start: 05-04-2027 Screening for malignant neoplasm of colon Cologuard (FIT-DNA) [facility] Start: 08-08-2026 Diabetes Screening Diabetes Screening [facility] Start: 08-03-2026 Diabetes Screening Diabetes Screening [facility] Start: 08-02-2026 Diabetes Screening Diabetes Screening [facility] Start: 07-24-2026 Diabetes Screening Diabetes Screening [facility] Start: 05-26-2025 End: 05-26-2025 ambulatory 05/26/2025 12:30 PM EDT Procedure Cardiology [address] [id number] DX: Aortic root dilation [I77.810 (ICD-10-CM)]; History of aortic valve replacement Cardiology Comment on above: DX: Aortic root dilation [I77.810 (ICD-1 0-CM)]; History of aortic valve replacement Start: 05-26-2025 End: 05-26-2025 Patient encounter procedure Vascular Medicine Comment on above: DX: Aortic root dilation [I77.810 (ICD-1 0-CM)]; History of aortic valve replacement Start: 05-10-2025 Influenza vaccination Influenza Vaccine (Season Ended) [facility] Start: 12-01-2024 BP Controlled (<130/80) BP Controlled (<130/80) [facility] Start: 11-04-2024 BP Controlled (<130/80) BP Controlled (<130/80) [facility] Start: 09-09-2024 Advance Directive Discussion Advance Directive Discussion [facility] Start: 09-09-2024 Medicare Advantage Annual Wellness Visit Medicare Advantage Annual Wellness Visit [facility] Start: 08-19-2024 End: 08-19-2024 Patient encounter procedure 08/19/2024 10:00 AM EST Office Visit [facility] [place] [address] [id number] Harriet Hogan [facility] [address] [id number] consult [facility] Comment on above: consult Start: 06-24-2024 End: 06-24-2024 Patient encounter procedure 06/24/2024 1:30 PM EDT Office Visit Cardiology [address] [id number] Edmund Kamara MD [address] [place] [address] HOCM (hypertrophic obstructive cardiomyopathy) ([facility]) [I42.1] Cardiology Comment on above: HOCM (hypertrophic obstructive cardiomyo uzma) (HCC) [I42.1] Start: 06-24-2024 End: 06-24-2024 ambulatory 06/24/2024 1:00 PM EDT Results Only Cardiology [address] [place] [address] EKG Cardiology Comment on above: EKG Start: 05-10-2024 Covid-19 Vaccine () Covid-19 Vaccine () [facility] Start: 05-10-2024 Influenza vaccination [facility] Start: 05-05-2024 Screening for malignant neoplasm of colon Colorectal Cancer Screening [facility] Start: 04-28-2024 End: 04-28-2024 Patient encounter procedure 04/28/2024 12:00 PM EDT Appointment Cardiology Lab [address] [place], [place] [id number] HOCM (hypertrophic obstructive cardiomyopathy) (HCC) [I42.1] Cardiology Lab Comment on above: HOCM (hypertrophic obstructive cardiomyo uzma) (HCC) [I42.1] Start: 04-28-2024 Subsequent hospital visit by physician 04/28/2024 12:00 PM EDT Hospital Encounter Cardiology Lab [address] [place] [address] HOCM (hypertrophic obstructive cardiomyopathy) (HCC) [I42.1] Cardiology Lab Comment on above: HOCM (hypertrophic obstructive cardiomyo uzma) (HCC) [I42.1] Start: 04-02-2024 Screening for malignant neoplasm of colon Cologuard (FIT-DNA) [facility] Start: 03-25-2024 End: 03-25-2024 Patient encounter procedure 03/25/2024 2:45 PM EDT Office Visit Cardiology [address] [id number] Deena Francois MD [address] [place] [address] Essential hypertension [I10] Cardiology Comment on above: Essential hypertension [I10] Start: 03-25-2024 End: 06-24-2024 CREATININE BLD CREATININE BLD Lab Routine History of aortic valve replacement Expected: 03/25/2024, Expires: 06/24/2024 [facility] Comment on above: Expected: 03/25/2024, Expires: Start: 03-25-2024 End: 03-25-2024 Patient encounter procedure 03/25/2024 1:30 PM EDT Office Visit Cardiology [address] [place], [place] [phone] Essential hypertension [I10] Cardiology Comment on above: Essential hypertension [I10] Start: 03-25-2024 End: 03-25-2024 ambulatory 03/25/2024 1:00 PM EDT Results Only Cardiology [address] [place], [place] [phone] Essential hypertension [I10] Cardiology Comment on above: Essential hypertension [I10] Start: 01-08-2024 End: 01-08-2024 Patient encounter procedure 01/08/2024 3:15 PM EDT Office Visit Cardiology [address] [place], [place] [phone] Deena Francois MD [address] [place] [address] Hypertrophic cardiomyopathy (HCC) [I42.2] Cardiology Comment on above: Hypertrophic cardiomyopathy (HCC) [I42.2 ] Start: 01-08-2024 End: 01-08-2024 Patient encounter procedure Radiology Comment on above: Hypertrophic cardiomyopathy (HCC) [I42.2 ] Start: 12-18-2023 End: 10-17-2024 Ct angiography chest w/contrast/noncontrast CTA CHEST (GATED) W IVCON Radiology Routine Vasculopathy Adverse effect of treatment, initial encounter Expected: 12/18/2023, Expires: 10/17/2024 [facility] Work Phone: Comment on above: Expected: 12/18/2023, Expires: Start: 12-18-2023 End: 09-18-2024 Echocardiography ECHO Cardiology Routine Hypertrophic cardiomyopathy (HCC) S/P AVR (aortic valve replacement) and aortoplasty Expected: 12/18/2023, Expires: 09/18/2024 [facility] Work Phone: Comment on above: Expected: 12/18/2023, Expires: 5 Start: 09-09-2023 Advance Directive Discussion Advance Directive Discussion [facility] Start: 09-09-2023 Behavioral Health Screening Behavioral Health Screening [facility] Start: 09-09-2023 Depression Assessment Depression Assessment [facility] Start: 08-03-2023 End: 11-02-2023 Basic metabolic 2000 panel - Serum or Plasma BASIC METABOLIC PNL Lab Routine Nonrheumatic aortic valve stenosis Primary hypertension Expected: 08/03/2023, Expires: 11/02/2023 [facility] Work Phone: Comment on above: Expected: 08/03/2023, Expires: 4 Start: 08-03-2023 End: 11-02-2023 CBC panel - Blood by Automated count CBC Lab Routine Nonrheumatic aortic valve stenosis Primary hypertension Expected: 08/03/2023, Expires: 11/02/2023 [facility] Work Phone: Comment on above: Expected: 08/03/2023, Expires: 4 Start: 08-03-2023 End: 11-02-2023 Lipid 1996 panel - Serum or Plasma LIPID PANEL BASIC Lab Routine Nonrheumatic aortic valve stenosis Primary hypertension Expected: 08/03/2023, Expires: 11/02/2023 [facility] Work Phone: Comment on above: Expected: 08/03/2023, Expires: 4 Start: 08-02-2023 End: 11-01-2023 CBC panel - Blood by Automated count CBC Lab Routine Surgery follow-up Expected: 08/02/2023, Expires: 11/01/2023 [facility] Work Phone: Comment on above: Expected: 08/02/2023, Expires: 4 Start: 08-02-2023 End: 11-01-2023 Comprehensive metabolic 2000 panel - Serum or Plasma COMP METABOLIC PANEL Lab Routine Surgery follow-up Expected: 08/02/2023, Expires: 11/01/2023 [facility] Work Phone: Comment on above: Expected: 08/02/2023, Expires: Start: 06-10-2023 Patient discharge [facility] Start: 05-10-2023 Covid-19 Vaccine ( season) Covid-19 Vaccine ( season) [facility] Start: 05-10-2023 Influenza vaccination [facility] Start: 09-09-2022 ADVANCE DIRECTIVE DISCUSSION ADVANCE DIRECTIVE DISCUSSION [facility] Start: 09-09-2022 DEPRESSION ASSESSMENT DEPRESSION ASSESSMENT [facility] Start: 07-31-2022 Diagnostic bone marrow biopsies DX BONE MARROW BIOPSIES [facility] Work Phone: Start: 07-31-2022 Catheterization of vein [facility] Work Phone: Start: 07-31-2022 Oxygen therapy [facility] Work Phone: Start: 07-31-2022 Patient discharge [facility] Work Phone: Start: 07-31-2022 Vital signs measurements [facility] Work Phone: Start: 07-25-2022 Patient referral [facility] Work Phone: Start: 05-10-2022 Influenza vaccination INFLUENZA (#1) [facility] Start: 04-17-2022 Lipid 1996 panel - Serum or Plasma Lipid Screening [facility] Start: 04-17-2022 LIPID SCREEN LIPID SCREEN [facility] Start: 04-09-2021 Colonoscopy COLONOSCOPY [facility] Start: 04-09-2021 COLORECTAL CANCER SCREENING COLORECTAL CANCER SCREENING [facility] Start: 04-09-2021 Screening for malignant neoplasm of colon [facility] Start: 02-16-2021 Urine microalbumin profile [facility] Start: 2020 Pneumococcal Vaccine: 65+ (1 - PCV) Pneumococcal Vaccine: 65+ (1 - PCV) [facility] Start: 2020 Pneumococcal Vaccine: 65+ (1 of 1 - PCV) Pneumococcal Vaccine: 65+ (1 of 1 - PCV) [facility] Start: 2020 PNEUMOCOCCAL: 65+ (1 - PCV) PNEUMOCOCCAL: 65+ (1 - PCV) [facility] Start: 11-14-2017 End: 11-14-2017 Appointment Appointment [facility] Work Phone: Start: 10-18-2017 End: 04-19-2017 *Hepatic Function Panel *Hepatic Function Panel [facility] Work Phone: Start: 10-18-2017 End: 04-19-2017 Lipid panel [AGGREGATE] *Lipid Profile CC PCP [facility] Work Phone: Start: 05-08-2017 End: 05-08-2017 Appointment Appointment [facility] Work Phone: Start: 05-08-2017 End: 05-08-2017 Follow Up Appt 6 months Follow Up Appt 6 months [facility] Work Phone: Start: 05-08-2017 End: 05-08-2017 MMM MMM [facility] Work Phone: Start: 04-29-2017 End: 04-29-2017 Appointment Appointment [facility] Work Phone: Start: 04-22-2017 End: 04-17-2017 *Hepatic Function Panel *Hepatic Function Panel [facility] Work Phone: Start: 04-22-2017 End: 04-17-2017 Lipid panel [AGGREGATE] *Lipid Profile CC PCP [facility] Work Phone: Start: 04-19-2017 End: 04-19-2017 Appointment Appointment [facility] Work Phone: Start: 04-15-2017 End: 04-15-2017 Appointment Appointment [facility] Work Phone: Start: 11-02-2016 End: 11-02-2016 Echocardiography Echocardiogram (complete) [facility] Work Phone: Start: 11-02-2016 End: 11-02-2016 Follow Up Appt 6 months Follow Up Appt 6 months [facility] Work Phone: Start: 11-02-2016 End: 11-02-2016 PFM PFM [facility] Work Phone: Start: 10-10-2016 End: 04-10-2016 *Hepatic Function Panel *Hepatic Function Panel [facility] Work Phone: Start: 10-10-2016 End: 04-10-2016 Lipid panel [AGGREGATE] *Lipid Profile CC PCP [facility] Work Phone: Start: 04-12-2016 End: 04-12-2016 Follow Up Appt 6 months Follow Up Appt 6 months [facility] Work Phone: Start: 04-12-2016 End: 04-12-2016 MMM MMM [facility] Work Phone: Start: 03-27-2016 End: 02-27-2016 *Hepatic Function Panel *Hepatic Function Panel [facility] Work Phone: Start: 03-27-2016 End: 02-27-2016 Lipid panel [AGGREGATE] *Lipid Profile CC PCP [facility] Work Phone: Start: 02-18-2016 LIPID SCREEN LIPID SCREEN [facility] Start: 02-18-2016 PROSTATE CANCER SCREENING DISCUSSION PROSTATE CANCER SCREENING DISCUSSION [facility] Start: 02-18-2016 Prostate specific antigen measurement Prostate Cancer Screening Discussion [facility] Start: 01-23-2016 End: 02-27-2016 Mri joint upr extrem w/o dye MRI Joint Upper Extremity [facility] Work Phone: Start: 01-23-2016 End: 02-27-2016 X-ray exam of shoulder X-Ray, Shoulder [facility] Work Phone: Start: 10-10-2015 End: 02-27-2016 Follow Up Appt 6 months Follow Up Appt 6 months [facility] Work Phone: Start: 10-10-2015 End: 02-27-2016 PFM PFM [facility] Work Phone: Start: 09-29-2015 End: 09-27-2015 *Hepatic Function Panel *Hepatic Function Panel [facility] Work Phone: Start: 09-29-2015 End: 09-27-2015 Lipid panel [AGGREGATE] *Lipid Profile CC PCP [facility] Work Phone: Start: 2015 RSV Vaccine (1 - 1-dose 60+ series) RSV Vaccine (1 - 1-dose 60+ series) [facility] Start: 2015 RSV Vaccine (1 - Risk 60-74 years 1-dose series) RSV Vaccine (1 - Risk 60-74 years 1-dose series) [facility] Start: 04-11-2015 End: 04-11-2015 Follow Up Appt 6 months Follow Up Appt 6 months [facility] Work Phone: Start: 04-11-2015 End: 04-11-2015 MMM MMM [facility] Work Phone: Start: 03-14-2015 End: 03-28-2015 *Hepatic Function Panel *Hepatic Function Panel [facility] Work Phone: Start: 03-14-2015 End: 03-28-2015 Lipid panel [AGGREGATE] *Lipid Profile CC PCP [facility] Work Phone: Start: 09-07-2014 End: 09-07-2014 Follow Up Appt 6 months Follow Up Appt 6 months [facility] Work Phone: Start: 09-07-2014 End: 09-07-2014 Follow Up Appt Other Follow Up Appt Other [facility] Work Phone: Start: 09-07-2014 End: 09-07-2014 PFM PFM [facility] Work Phone: Start: 09-06-2014 End: 09-14-2014 *Hepatic Function Panel *Hepatic Function Panel [facility] Work Phone: Start: 09-06-2014 End: 09-14-2014 Lipid panel [AGGREGATE] *Lipid Profile CC PCP [facility] Work Phone: Start: 07-26-2014 End: 07-26-2014 Transesophageal echocardiogram (RAGINI) Transesophageal echocardiogram (RAGINI) [facility] Work Phone: Start: 07-22-2014 End: 09-26-2015 *BMP *BMP [facility] Work Phone: Start: 07-22-2014 End: 09-26-2015 *CBC with Differential *CBC with Differential [facility] Work Phone: Start: 07-22-2014 End: 09-26-2015 aPTT *PTT-Partial Thromboplastin Time [facility] Work Phone: Start: 07-22-2014 End: 09-26-2015 aPTT Coag time (PPP) *PTT-Partial Thromboplastin Time [facility] Work Phone: Start: 07-22-2014 End: 08-13-2014 Chest x-ray X-Ray, Chest, PA & Lateral [facility] Work Phone: Start: 07-22-2014 End: 09-26-2015 Coagulation factor induced.INR assay in platelet poor plasma *PT/INR [facility] Work Phone: Start: 07-22-2014 End: 07-22-2014 Echocardiography Echocardiogram (complete) [facility] Work Phone: Start: 07-22-2014 End: 07-22-2014 Follow Up Appt 6 weeks Follow Up Appt 6 weeks [facility] Work Phone: Start: 07-22-2014 End: 09-26-2015 Follow Up Appt Other Follow Up Appt Other [facility] Work Phone: Start: 07-22-2014 End: 07-22-2014 Left Heart Cath Left Heart Cath [facility] Work Phone: Start: 07-22-2014 End: 07-22-2014 MMM MMM [facility] Work Phone: Start: 02-17-2014 DIABETES SCREEN DIABETES SCREEN [facility] Start: 02-17-2014 Diabetes Screening Diabetes Screening [facility] Start: 2005 Pneumococcal Vaccine: 50+ (1 of 1 - PCV) Pneumococcal Vaccine: 50+ (1 of 1 - PCV) [facility] Start: 2005 SHINGRIX VACCINE (1 of 2) SHINGRIX VACCINE (1 of 2) [facility] Start: 2000 COLOGUARD (FIT-DNA) COLOGUARD (FIT-DNA) [facility] Start: [address] COLONOGRAPHY [facility] Start: 2000 FECAL OCCULT BLOOD FECAL OCCULT BLOOD [facility] Start: 2000 Screening for malignant neoplasm of colon [facility] Start: 2000 SIGMOIDOSCOPY SIGMOIDOSCOPY [facility] Start: 1973 Annual PCP Team Chronic Disease Visit Annual PCP Team Chronic Disease Visit [facility] Start: 1973 Anxiety Screening Anxiety Screening [facility] Start: 1973 BP Controlled (<130/80) BP Controlled (<130/80) [facility] Start: 1973 Depression Screening Depression Screening [facility] Start: 1973 HEPATITIS C SCREENING HEPATITIS C SCREENING [facility] Start: 1973 Hepatitis C screening Hepatitis C Screening [facility] Start: 03-23-1956 COVID-19 VACCINE (#1) COVID-19 VACCINE (#1) [facility] Bone marrow biopsy, needle or trocar [facility] Work Phone: CTA Chest vessels W contrast IV CTA CHEST (GATED) W IVCON Radiology Routine Vasculopathy Adverse effect of treatment, initial encounter 01/08/2024 3:01 PM EDT [facility] Work Phone: End: 04-24-2025 CTA Chest vessels W contrast IV CTA CHEST (GATED) W IVCON Radiology Routine Encounter for preprocedural cardiovascular examination 1 Occurrences starting 03/25/2024 until 04/24/2025 [facility] Comment on above: 1 Occurrences starting 03/25/2024 until 04/24/2025 End: 08-02-2024 ECG COMPLETE ECG COMPLETE ECG Routine Surgery follow-up 1 Occurrences starting 08/02/2023 until 08/02/2024 [facility] Work Phone: Comment on above: 1 Occurrences starting 08/02/2023 until 08/02/2024 End: 08-03-2024 ECG COMPLETE ECG COMPLETE ECG Routine Nonrheumatic aortic valve stenosis Primary hypertension 1 Occurrences starting 08/03/2023 until 08/03/2024 [facility] Work Phone: Comment on above: 1 Occurrences starting 08/03/2023 until 08/03/2024 End: 01-07-2025 ECG COMPLETE ECG COMPLETE ECG Routine Essential hypertension S/P AVR (aortic valve replacement) and aortoplasty Chronic heart failure with preserved ejection fraction (HCC) HOCM (hypertrophic obstructive cardiomyopathy) ([facility]) 1 Occurrences starting 01/08/2024 until 01/07/2025 [facility] Work Phone: Comment on above: 1 Occurrences starting 01/08/2024 until 01/07/2025 End: 03-25-2025 ECG COMPLETE ECG COMPLETE ECG Routine Aortic root dilation (HCC) History of aortic valve replacement 1 Occurrences starting 03/25/2024 until 03/25/2025 [facility] Work Phone: Comment on above: 1 Occurrences starting 03/25/2024 until 03/25/2025 End: 06-22-2025 ECG COMPLETE ECG COMPLETE ECG Routine NSVT (nonsustained ventricular tachycardia) (HCC) HOCM (hypertrophic obstructive cardiomyopathy) ([facility]) 1 Occurrences starting 06/22/2024 until 06/22/2025 [facility] Work Phone: Comment on above: 1 Occurrences starting 06/22/2024 until 06/22/2025 End: 08-03-2024 Echocardiography ECHO Cardiology Routine Nonrheumatic aortic valve stenosis Primary hypertension 1 Occurrences starting 08/03/2023 until 08/03/2024 [facility] Work Phone: Comment on above: 1 Occurrences starting 08/03/2023 until 08/03/2024 End: 01-07-2025 Echocardiography ECHO Cardiology Routine Essential hypertension S/P AVR (aortic valve replacement) and aortoplasty Chronic heart failure with preserved ejection fraction (HCC) HOCM (hypertrophic obstructive cardiomyopathy) (HCC) 1 Occurrences starting 01/08/2024 until 01/07/2025 [facility] Comment on above: 1 Occurrences starting 01/08/2024 until 01/07/2025 End: 03-25-2025 Echocardiography ECHO Cardiology Routine Aortic root dilation (HCC) History of aortic valve replacement 1 Occurrences starting 03/25/2024 until 03/25/2025 [facility] Comment on above: 1 Occurrences starting 03/25/2024 until 03/25/2025 End: 03-27-2025 HOLTER MONITOR 48 HOUR HOLTER MONITOR 48 HOUR ECG Routine HOCM (hypertrophic obstructive cardiomyopathy) (HCC) 1 Occurrences starting 03/27/2024 until 03/27/2025 [facility] Comment on above: 1 Occurrences starting 03/27/2024 until 03/27/2025 LUNG DIFFUSION CAPAC ITY (DLCO) LUNG DIFFUSION CAPACITY (DLCO) PFT Routine Nonrheumatic aortic valve stenosis Pre-operative cardiovascular examination Aortic valve disorder Hypertrophic cardiomyopathy (HCC) 07/24/2023 7:26 AM EST [facility] Work Phone: End: 08-21-2024 MRA CHEST CARDIOVASCULAR WO IVCON MRA CHEST CARDIOVASCULAR WO IVCON Radiology Routine Aortic valve disorder 1 Occurrences starting 07/23/2023 until 08/21/2024 [facility] Work Phone: Comment on above: 1 Occurrences starting 07/23/2023 until 08/21/2024 MRA CHEST CARDIOVASC ULAR WO IVCON MRA CHEST CARDIOVASCULAR WO IVCON Radiology Routine Aortic valve disorder 07/24/2023 5:20 PM EST [facility] Work Phone: MRI CARDIAC MORPH FU NC WO/W IVCON MRI CARDIAC MORPH FUNC WO/W IVCON Radiology Routine Nonrheumatic aortic valve stenosis Pre-operative cardiovascular examination Aortic valve disorder Hypertrophic cardiomyopathy (HCC) 07/24/2023 5:20 PM EST [facility] Work Phone: MRI CARDIAC VELOCITY FLOW MAP MRI CARDIAC VELOCITY FLOW MAP Radiology Routine Nonrheumatic aortic valve stenosis Pre-operative cardiovascular examination Aortic valve disorder Hypertrophic cardiomyopathy (HCC) 07/24/2023 5:20 PM EST [facility] Work Phone: NVTA INVITAE CARDIOL OGY PANEL [facility] INVITAE CARDIOLOGY PANEL Lab Routine HOCM (hypertrophic obstructive cardiomyopathy) (HCC) Ordered: 08/19/2024 [facility] Work Phone: Comment on above: Ordered: 08/19/2024 OUTSIDE VENDOR CARDI AC OUTPATIENT EXTENDED RHYTHM RECORDING (WITHOUT TELEMETRY) OUTSIDE VENDOR CARDIAC OUTPATIENT EXTENDED RHYTHM RECORDING (WITHOUT TELEMETRY) Holter Routine HOCM (hypertrophic obstructive cardiomyopathy) ([facility]) Ordered: 04/30/2024 [facility] Work Phone: Comment on above: Ordered: 04/30/2024 Patient Education [facility] Work Phone: Patient referral [facility] Work Phone: End: 08-31-2024 Radiologic exam chest 2 views XR CHEST 2V FRONTAL/LAT Radiology Routine Surgery follow-up 1 Occurrences starting 08/02/2023 until 08/31/2024 [facility] Work Phone: Comment on above: 1 Occurrences starting 08/02/2023 until 08/31/2024 SPIROMETRY BASELINE ONLY SPIROME TRY BASELINE ONLY PFT Routine Nonrheumatic aortic valve stenosis Pre-operative cardiovascular examination Aortic valve disorder Hypertrophic cardiomyopathy (HCC) 07/24/2023 7:26 AM EST [facility] Work Phone: End: 03-27-2025 STRESS ECHO TREADMILL STRESS ECHO TREADMILL Cardiology Routine HOCM (hypertrophic obstructive cardiomyopathy) (HCC) 1 Occurrences starting 03/27/2024 until 03/27/2025 [facility] Work Phone: Comment on above: 1 Occurrences starting 03/27/2024 until 03/27/2025 [facility] CT & VAS [facility] Immunizations Immunization Date Immunization Notes Care Provider Amadou paniagua 02-16-2011 tetanus toxoid, redu luis enrique diphtheria toxoid, and acellular pertussis vaccine, adsorbed Charlotte Garcia RT(R) [facility] Work Phone: Payers Date Payer Category Payer Self-pay [id number] 2022 Medicare AET[employer] MEDICARE A ETNA MEDICARE PPO [id number] 2022-Present [phone] [address] [place] [address] PPO [id number] 2022 Medicare (Managed Care) [employer] PR DICARE [id number] 2022 Private Health Insurance [id number] 2013 Unknown [employer] HIOCOMP [id number] 2013-Present [phone] [address] [place] [address] [facility] [id number] 2004 Unknown [id number] 2004 Unknown [id number] Unknown [id number] Unknown [id number] Unknown [id number] Unknown [id number] Unknown [id number] Social History Date Type Detail Facility Start: 10-04-2021 End: 06-10-2023 Tobacco smoking status MSIS Unknown if ever smoked [facility] Start: 1955 Sex Assigned At Male W [facility] Start: 03-13-2011 End: 11-04-2023 Tobacco smoking status MSIS Never smoked tobacco [facility] Start: 03-13-2011 Tobacco use and exposure User of smokeless tobacco [facility] History of tobacco use Snuff User [facility] Start: 04-26-2022 End: 06-24-2024 Alcohol intake Current drinker of alcohol (finding) [facility] Start: 1955 Sex Assigned At Not on file C [facility] Start: 04-26-2022 End: 04-28-2024 History of Social function [facility] Start: 04-26-2022 End: 04-28-2024 Tobacco use panel [facility] National Score (1-100), lower number is lower risk 59 [facility] Start: 12-10-2024 Sex Male (finding) [facility] Medical Equipment Procedure Code Equipment Code Equipment Original Text Equipment Identifier Dates [place] Thk1.65mm P tfe 4x.5in Cardiovascular Sterile - [id number] Start: 07-29-2023 Valve Mcqueen In spiris Resilia 25mm Pericardial Aortic Bioprosthesis - [id number] Start: 07-29-2023 Goals Date Patient Goal Desired Activity /State Personal health goal Functional Status Date Assessment Result Facility 08-05-2023 Are you deaf, or do you have serious difficulty hearing No 08/05/2023 12:43 PM Nhan Desai RN No [facility] 08-05-2023 Are you blind, or do you have serious difficulty seeing, even when wearing glasses No 08/05/2023 12:43 PM Nhan Desai RN No [facility] 08-05-2023 Do you have serious difficulty walking or climbing stairs No 08/05/2023 12:43 PM Nhan Desai RN No [facility] 08-05-2023 Do you have difficul ty dressing or bathing No 08/05/2023 12:43 PM Nhan Desai RN No [facility] 08-05-2023 Because of a physica l, mental, or emotional condition, do you have difficulty doing errands alone such as visiting a physician's office or shopping No 08/05/2023 12:43 PM Nhan Desai RN No [facility] Mental Status Date Assessment Result Facility 08-05-2023 Because of a physica l, mental, or emotional condition, do you have serious difficulty concentrating, remembering, or making decisions No 08/05/2023 12:43 PM Nhan Desai RN [facility] 07-31-2022 Cognitive function Voice/Name [facility] Work Phone: Clinical Notes 05-20-2006 to 03-05-2025 Telephone Encounter - Garima Garcia - 03/05/2025 8:42 AM EDTTelephone Encounter - Garima Garcia - 03/05/2025 8:42 AM Harriet Ogden LGC - 08/19/2024 10:00 AM ESTPatient Instructions Note Date & Type Note Facility 03-05-2025 Telephone encount er Note Patient used MyChart to request a refill on the medication(s) below: Requested Prescriptions Pending Prescriptions Disp Refills empagliflozin (JARDIANCE) 10 mg tablet [Pharmacy Med Name: Jardiance 10 MG Oral Tablet] 90 tablet 1 Sig: Take 1 tablet by mouth once daily with breakfast PHARMACY NAME [facility] / PHONE NUMBER: [phone] Pickup RX Physician's Name: Dr. Rosario Last seen in office:03/25/24 Patient has appt on 05/26/25 If last appointment greater than one year or no follow up scheduled, sent to schedulers Ashley Plunkettela Dakota 03/05/2025 [facility] 03-05-2025 Miscellaneous Notes Formattin g of this note is different from the original. Patient used MyChart to request a refill on the medication(s) below: Requested Prescriptions Pending Prescriptions Disp Refills empagliflozin (JARDIANCE) 10 mg tablet [Pharmacy Med Name: Jardiance 10 MG Oral Tablet] 90 tablet 1 Sig: Take 1 tablet by mouth once daily with breakfast PHARMACY NAME [facility] / PHONE NUMBER: [phone] Pickup RX Physician's Name: Dr. Rosario Last seen in office:03/25/24 Patient has appt on 05/26/25 If last appointment greater than one year or no follow up scheduled, sent to schedulers Ashley Gacria 03/05/2025 documented in this encounter [facility] 12-10-2024 Discharge summary [facility] 08-19-2024 History of Present illness Narrative GENETIC COUNSELING CONSULTATION Martin Henson is a 68 year old male with hypertrophic cardiomyopathy referred for genetic counseling by Dr. Deena Boltonatrium [email or web address]. He is accompanied at his appointment by [...] diagnosed with cardiomyopathy, including hypertrophic cardiomyopathy (PMID: [id number], [id number]). Recommended screening of first-degree relatives. Discussed the [...] need to be regularly evaluated by a radiosonde operator for HCM. We reviewed the options for genetic testing including a cardiomyopathy/arrhythmia panel with the option for insurance coverage, self pay or sponsored testing. The patient elected to proceed with the [employer] Cardiomyopathy and Arrhythmia program which is a sponsored genetic test, this means, if the testing is not covered by insurance this program will cover the cost. However, if this genetic testing is a covered benefit through insurance it will be billed to insurance through [facility]'s typical process. If there is an out of pocket expense of greater than $100 [facility] (owned by [employer]) will make an automated call requesting patient call billing department back; if expense of greater than $250, a live person will call and hold the bill for 21 days for them to call and determine if there are other available options to reduced the cost of testing. The patient does need to respond to TURN8 with how they would like to proceed with cost. For more information about insurance billing please contact [employer] billing at or [phone] If there is no insurance coverage the [...] arrhythmia/cardiomyopathy panel, reflex to aortopathy panel through [facility]. Results are expected in approximately 2-3 weeks from the time the sample is received by the lab. The patient will be contacted by telephone and/or [facility] to discuss these results. - If genetic [...] and should receive regular screening by a radiosonde operator. If relatives do not have the [...] siblings, children) should be evaluated by a radiosonde operator familiar with HCM at the time [...] clarify the significance of the variant. Reference: 12023 AHA/ACC/AMSSM/HRS/PACES/SCMR Guideline for the Management of Hypertrophic Cardiomyopathy: A Report of the [place] [employer]/[place] College of [employer]iology Joint Committee on Clinical [...] for a total of 30 minutes in [id number] counseling. This plan is being carried out under oversight of Dr. Priscilla Lu, Clinical Dictating Machine Typist. This note is available to the patient through [employer] and will be sent to the referring provider through [email or web address] or the US Mail as necessary. Harriet Hogan MS, [facility] [place], Certified Genetic Counselor [facility] CC: Dr. Deena Lu documented in this encounter [facility] 08-19-2024 Note HNO ID: [id number] Author: HARRIET HOGAN [facility] Service: ? Author Type: Genetic Counselor Type: [...] diagnosed with cardiomyopathy, including hypertrophic cardiomyopathy (PMID: [id number], [id number]). Recommended screening of first-degree relatives. Discussed the [...] need to be regularly evaluated by a radiosonde operator for HCM. We reviewed the options [...] it will be billed to insurance through [employer]'s typical process. If there is an out of pocket expense of greater than $100 [facility] [employer] (owned by [employer]) will make an automated call requesting patient call billing department back; if expense of greater than $250, a live person will call and hold the bill for 21 days for them to call and determine if there are other available options to reduced the cost of testing. Th (more content not included)... [facility] 06-24-2024 History of Present illness Narrative Images from the original note were not included. [facility] Department of Cardiovascular Medicine SECTION OF CARDIAC PACING and ELECTROPHYSIOLOGY OUTPATIENT VISIT DATE June 24, 2024 OUTPATIENT VISIT TYPE NEW PRIMARY CARE PHYSICIAN: ABDIEL MATHEWS [address] [id number] REFERRING PHYSICIAN: Deena Francois MD [address] [place], [place] [id number] NURSING INTAKE HISTORY: Mr. Henson is a [...] echocardiographic exam was performed on 03/25/2024. Zio -2023: 05/05/2024-05/19/2024 IRHYTHM FINDINGS: Patient had a min [...] may have occurred. Edmund Kamara MD Pager: [phone] Office: [phone] I personally examined the patient and repeated [...] and medical regimen Referring Physician: ABDIEL MATHEWS [address] [place] [address] Deena Francois MD [address] [address] documented in this encounter [facility] 06-24-2024 Note HNO ID: [id number] Author: EDMUND KAMARA MD Service: ? Author Type: Physician Type: Progress Notes Filed: 06/24/2024 17:46 Note Text: [facility] Department of Cardiovascular Medicine SECTION OF CARDIAC PACING and ELECTROPHYSIOLOGY OUTPATIENT VISIT DATE June 24, 2024 OUTPATIENT VISIT TYPE NEW PRIMARY CARE PHYSICIAN: ABDIEL MATHEWS [address] [place] [address] REFERRING PHYSICIAN: Deena Francois MD [address] [address] NURSING INTAKE HISTORY: Mr. Henson is a [...] #55). There is (more content not included)... [facility] 06-08-2024 Telephone encounter Note Images from the original note were not included. Deena Francois MD [facility] Clinical Nurse Phone Pool Cc: Garima Garcia Please, let patient know that I reviewed Zio: there are some NSVT, and I would like him to see an EP within the next couple of weeks to discuss ICD. Thanks, PS: Kiarra, please, can you make sure patient is seen by EP next week? Thnaks Messaged patient Lester Lewis RN [facility] 06-08-2024 Miscellaneous Notes Images from the original note were not included. Deena Francois MD [facility] Clinical Nurse Phone Pool Cc: Garima Garcia Please, let patient know that I reviewed Zio: there are some NSVT, and I would like him to see an EP within the next couple of weeks to discuss ICD. Thanks, PS: Kiarra, please, can you make sure patient is seen by EP next week? Thnaks Messaged patient Lester Lewis RN documented in this encounter [facility] 05-05-2024 Telephone encounter Note Deena Francios MD This looks like a CARD rx. [facility] 05-05-2024 Miscellaneous Notes Deena Francois MD This looks like a CARD rx. documented in this encounter [facility] 05-05-2024 Telephone encounter Note Patient called and asked that office notes and stress echo be sent sent Dr. Mathews [phone] received fax confirmation Goldie Leger May 05, 2024 8:50 AM [facility] 05-05-2024 Miscellaneous Notes Patient called and asked that office notes and stress echo be sent sent Dr. Mathews [phone] received fax confirmation Goldie Leger May 05, 2024 8:50 AM documented in this encounter [facility] 04-30-2024 Telephone encounter Note ----- Message from [...] stress echo. I let him know Dr. Rosario referred him to genetic consultation for HOCM. I also let him know to please complete labs and holter monitor. He stated it will be difficult to come to [place] for holter monitor pickup/placement, so I let him know I will ask Dr. Rosario about a Zio Patch, which can be mailed to him. I will follow up with Dr. Rosario. Marita Elizondo RN [facility] 04-30-2024 Miscellaneous Notes ----- Message from Deena Francois MD sent [...] stress echo. I let him know Dr. Rosario referred him to genetic consultation for HOCM. I also let him know to please complete labs and holter monitor. He stated it will be difficult to come to [place] for holter monitor pickup/placement, so I let him know I will ask Dr. Rosario about a Zio Patch, which can be mailed to him. I will follow up with Dr. Rosario. Marita Elizondo RN documented in this encounter [facility] 04-30-2024 Note HNO ID: [id number] Author: CARLOS SYLVESTER MD Service: ? Author [...] and VE Triplets were rare (<1.0%, 7). [facility] 04-27-2024 Telephone encounter Note Spoke with patient regarding reminder for stress test tomorrow and given instructions and reviewed to take all medications including metoprolol as normal. [facility] 04-27-2024 Miscellaneous Notes Spoke with patient regarding reminder for stress test tomorrow and given instructions and reviewed to take all medications including metoprolol as normal. documented in this encounter [facility] 04-23-2024 Telephone encounter Note Excellent numbers. No change if he feels well. Thanks AH Messaged patient Lester Lewis RN [facility] 04-23-2024 Miscellaneous Notes Excellent numbers. No change if he feels well. Thanks AH Messaged patient Lester Lewis RN April 20, 2024 Patient Contact Number: [phone] (home) [phone] (work) Patient last seen within the last year: Yes Date of last office visit: 03/25/24 Reason For Call: Blood Pressure Changes Patient called to give an update on his Blood Pressures. AM PM 8/ 128/85 117/84 8/ 116/84 114/81 8/6 122/83 ` 119/81 8/7 116/84 104/76 8/8 121/81 133/92 8/9 114/79 106/70 8/10 120/85 133/87 His BP machine said he had an irregular HR a few times. He's feeling pretty good, occasional tiredness. Physician: Deena Francois MD Patient was informed that non-urgent calls may be returned within the next three business days. Yes Garima Garcia documented in this encounter [facility] 04-20-2024 Telephone encounter Note April 20, 2024 Patient Contact Number: [phone] (home) [phone] (work) Patient last seen within the last year: Yes Date of last office visit: 03/25/24 Reason For Call: Blood Pressure Changes Patient called to give an update on his Blood Pressures. AM PM 04/12 128/85 117/84 8/ 116/84 114/81 8/ 122/83 ` 119/81 8/ 116/84 104/76 8/ 121/81 133/92 8/9 114/79 106/70 8/10 120/85 133/87 His BP machine said he had an irregular HR a few times. He's feeling pretty good, occasional tiredness. Physician: Deena Francois MD Patient was informed that non-urgent calls may be returned within the next three business days. Yes Garima Garcia [facility] 04-01-2024 Telephone encounter Note Images from the original note were not included. Deena Francois MD [facility] Clinical Nurse Phone Pool Please, let [...] patient with information and instructions from Dr. Rosario. Marita Elizondo RN [facility] 04-01-2024 Miscellaneous Notes Images from the original note were not included. Deena Francois MD [facility] Clinical Nurse Phone Pool Please, let [...] patient with information and instructions from Dr. Rosario. Marita Elizondo RN documented in this encounter [facility] 03-25-2024 Instructions Edmund Allen MD - 03/25/2024 3:09 PM EDT - Please obtain blood pressure monitor, I recommend Omron blood pressure monitor (arm, not wrist) cuff documented in this encounter [facility] 03-25-2024 Note HNO ID: [id number] Author: DEENA FRANCOIS MD Service: ? Author Type: Physician Type: Progress Notes Filed: 06/05/2024 10:41 Note Text: [facility] Department of Cardiovascular Medicine SECTION OF CLINICAL CARDIOLOGY OUTPATIENT VISIT DATE March 25, 2024 OUTPATIENT VISIT TYPE ESTABLISHED PRIMARY CARE PHYSICIAN: ABDIEL MATHEWS [address] [place] [address] REFERRING PHYSICIAN: Deena Francois MD [address] [place] [id number] CHIEF COMPLAINT: Follow up HISTORY OF PRESENT [...] The left ventri (more content not included)... [facility] 03-25-20[facility] History of Present illness Narrative Images from the original note were not included. [facility] Department of Cardiovascular Medicine SECTION OF CLINICAL CARDIOLOGY OUTPATIENT VISIT DATE March 25, 2024 OUTPATIENT VISIT TYPE ESTABLISHED PRIMARY CARE PHYSICIAN: ABDIEL MATHEWS [address] [place] [address] REFERRING PHYSICIAN: Deena Francois MD [address] [facility] [address] CHIEF COMPLAINT: Follow up HISTORY OF PRESENT [...] aortic pathology. AORTIC ROOT: 4.5 cm measured [id number] No significant interval change mid ASCENDING THORACIC AORTA: 3.9 cm Interval decrease in size, prior diameter 4.5 cm CORONARY ANATOMY: normal origin of the coronary arteries. Mild calcified atherosclerotic changes of the coronary arteries. However, the current study is not optimized for coronary assessment. Wagon Driver Salesperson: REINALDO Transcribe Date/Time: Jan 09 2024 8:06A [...] * * Final * * * RP Wagon Driver Salesperson: ZAC Transcribe Date/Time: Jul 24 2023 4:11P [...] heavy lifting >50 pounds Edmund Allen MD IM Resident PGY-3 [facility] 03/25/2024 CONTACT INFORMATION: Deena Francois MD documented in this encounter [facility] 03-18-2024 Telephone encounter Note Sent to nurse pool in error. There is already a request being processed for this . Please disregard [facility] 03-18-2024 Miscellaneous Notes Sent to nurse pool in error. There is already a request being processed for this . Please disregard Patient used [facility] to request a refill on the medication(s) below: Requested Prescriptions Pending Prescriptions Disp Refills empagliflozin (JARDIANCE) 10 mg tablet 90 tablet 1 Sig: Take 1 tablet by mouth daily with breakfast. PHARMACY NAME [facility] ([place], [place]) / PHONE NUMBER: [phone] Pickup RX Physician's Name: Deena Francois MD Last seen in office: 01/08/2024 If last appointment greater than one year or no follow up scheduled, sent to schedulers Ashley Yeh 03/18/2024 documented in this encounter [facility] 03-18-2024 Telephone encounter Note Patient used MyChart to request a refill on the medication(s) below: Requested Prescriptions Pending Prescriptions Disp Refills empagliflozin (JARDIANCE) 10 mg tablet 90 tablet 1 Sig: Take 1 tablet by mouth daily with breakfast. PHARMACY NAME [facility] ([place], [place]) / PHONE NUMBER: [phone] Pickup RX Physician's Name: Deena Francois MD Last seen in office: 01/08/2024 If last appointment greater than one year or no follow up scheduled, sent to schedulers Ashley Yeh 03/18/2024 [facility] 03-13-2024 Telephone encounter Note Pharmacy electronic RX request to request a refill on the medication(s) below: Requested Prescriptions Pending Prescriptions Disp Refills empagliflozin (JARDIANCE) 10 mg tablet [Pharmacy Med Name: Jardiance 10 MG Oral Tablet] 90 tablet 3 Sig: Take 1 tablet by mouth daily with breakfast. PHARMACY NAME [facility] ([place], [place]) / PHONE NUMBER: [phone] Pickup RX Physician's Name: Deena Francois MD Last seen in office: 01/08/2024 If last appointment greater than one year or no follow up scheduled, sent to schedulers Ashley Yeh 03/13/2024 [facility] 03-13-2024 Miscellaneous Notes Pharmacy electronic RX request to request a refill on the medication(s) below: Requested Prescriptions Pending Prescriptions Disp Refills empagliflozin (JARDIANCE) 10 mg tablet [Pharmacy Med Name: Jardiance 10 MG Oral Tablet] 90 tablet 3 Sig: Take 1 tablet by mouth daily with breakfast. PHARMACY NAME [facility] ([place], [place]) / PHONE NUMBER: [phone] Pickup RX Physician's Name: Deena Francois MD Last seen in office: 01/08/2024 If last appointment greater than one year or no follow up scheduled, sent to schedulers Ashley Yeh 03/13/2024 documented in this encounter [facility] 01-08-2024 Instructions Deena Francois MD - 01/08/2024 [...] to reassess gradients documented in this encounter [facility] 01-08-2024 History of Present illness Narrative Images from the original note were not included. [facility] Department of Cardiovascular Medicine SECTION OF CLINICAL CARDIOLOGY OUTPATIENT VISIT DATE January 08, 2024 OUTPATIENT VISIT TYPE ESTABLISHED PRIMARY CARE PHYSICIAN: ABDIEL MATHEWS [address] [id number] REFERRING PHYSICIAN: Deena Francois MD [address] [address] CHIEF COMPLAINT: None, has just completed cardiac Rehab, good BPs in Rehab HISTORY OF PRESENT ILLNESS: Mr. Henson is a 68 year old male who presents today for a cardiovascular medicine follow-up visit , last seen on 09/18/2023: ----- Mr Sukhdev 67 yo with due to BAV, and [...] ABNORMAL ECG Confirmed by BAIRON MIR MD ([id number]) on 09/29/2023 5:36:55 PM Last MRI Result [...] * * Final * * * RP Wagon Driver Salesperson: ZAC Transcribe Date/Time: Jul 24 2023 4:11P [...] aortic pathology. AORTIC ROOT: 4.5 cm measured [id number] No significant interval change mid ASCENDING THORACIC AORTA: 3.9 cm Interval decrease in size, prior diameter 4.5 cm CORONARY ANATOMY: normal origin of the coronary arteries. Mild calcified atherosclerotic changes of the coronary arteries. However, the current study is not optimized for coronary assessment. Wagon Driver Salesperson: REINALDO Transcribe Date/Time: Jan 09 2024 8:06A [...] Deena Francois MD documented in this encounter [facility] 01-08-2024 Note HNO ID: [id number] Author: DEENA FRANCOIS MD Service: ? Author Type: Physician Type: Progress Notes Filed: 03/27/2024 10:17 Note Text: [facility] Department of Cardiovascular Medicine SECTION OF CLINICAL CARDIOLOGY OUTPATIENT VISIT DATE January 08, 2024 OUTPATIENT VISIT TYPE ESTABLISHED PRIMARY CARE PHYSICIAN: ABDIEL MATHEWS [address] [place] [address] REFERRING PHYSICIAN: Deena Francois MD [address] [place] [address] CHIEF COMPLAINT: None, has just completed cardiac Rehab, good BPs in Rehab HISTORY OF PRESENT ILLNESS: Mr. Henson is a 68 year old male who presents today for a cardiovascular medicine follow-up visit , last seen on 09/18/2023: ----- Mr Santizo 67 yo with due to [...] scar, lungs OK, Aortic valve systolic murmur 2-36 as expected. ECG: NSR with LV hypertrophy [...] Trouble swallowing, Hea (more content not included)... [facility] 01-08-2024 History of Present illness Narrative Radiology [...] PATIENT PRESENTS WITH AN IMPLANTABLE OR ATTACHED ANDROID PLATFORM DEVELOPER: No RADIOLOGY DEPARTMENT: CT; Exam(s) Completed: Cardiac PERIPHERAL IV DATA: Site assessment: Clean,Dry and Intact, Site disposition Discontinued SIGNED BY: RT Diego(R) January 08, 2024 3:02 PM documented in this encounter [facility] 01-08-2024 Note HNO ID: [id number] Author: UZMA TOLEDO RT (R) Service: Radiology Author Type: Technologist Type: Progress [...] PATIENT PRESENTS WITH AN IMPLANTABLE OR ATTACHED ANDROID PLATFORM DEVELOPER: No RADIOLOGY DEPARTMENT: CT; Exam(s) Completed: Cardiac PERIPHERAL IV DATA: Site assessment: Clean,Dry and Intact, Site disposition Discontinued SIGNED BY: RT Diego(R) January 08, 2024 3:02 PM [facility] 01-08-2024 Note HNO ID: [id number] Author: MARYJO CHIRINOS RN Service: Nursing Author [...] DATE: January 08, 2024 TIME: 2:29 PM [facility] 01-01-2024 Note HNO ID: [id number] Author: JOSIAH SUH EKG Tech Service: ? Author Type: Brush Polisher Type: Progress Notes Filed: 01/01/2024 08:25 Note [...] Daily Exercise Log will be scanned into [email or web address] once it is completed. These can be [...] Plan, and education sessions covered. Josiah Suh, Break Off Worker [facility] Department of Cardiovascular Medicine Discharge [...] lb (109.8kg) INDIVIDUAL TREATMENT PLAN Program Location: [place] Program: Exit Phase II EXERCISE ASSES (more content not included)... [facility] 04-24-2024 History of Present illness Narrative Images from [...] Daily Exercise Log will be scanned into [email or web address] once it is completed. These can be [...] Plan, and education sessions covered. Josiah Suh, Break Off Worker [facility] Department of Cardiovascular Medicine Discharge [...] lb (109.8kg) INDIVIDUAL TREATMENT PLAN Program Location: [place] Program: Exit Phase II EXERCISE ASSESSMENT Current [...] Knowledge Test Score (#correct): (not given at [facility]) Learning Barriers: None Hyperlipidemia: Yes Patient Knows [...] smoked) Education Completed: Weight Mgmt;You're Heart, [place], [place];Cardiac Risk Factors;Cardiac Tests;Cardiac Treatments;Cardiac Medications;Advanced Directives;Diaphragmatic Breathing;Cardiac A&P;Diabetic Education;Smoking Cessation Patient Understands Intervention: Yes CORE COMPONENTS IMPROVEMENT GOAL Improvement in Knowledge Test Score : (not given at [facility]) Hyperlipidemia: LDL < 100 or <70 For High Risk Patients;Knows Appropriate Level;Knows Current Level Weight: Lose BMI: <35 (BMI = 31.8) Waist: Lose Hypertension: Monitor BP at Home;Low Sodium Diet;BP <130/<80 Tobacco: (never smoked) PSYCHOSOCIAL ASSESSMENT Stress: Minimal Family Support: Yes () Education Completed: Stress Management;Anxiety Management;Emotions;Anger Management;Behavior change director;Depression Management;Relaxation Techniques PATIENT ENTERED QUESTIONNAIRE SCORES 01/01/2024 [...] Change;Attend Stress Management Sessions SUMMARY: Josiah Suh Break Off Worker documented in this encounter [facility] 12-30-2023 Note HNO ID: [id number] Author: KATIE DECKER Break Off Worker Service: ? Author Type: Break Off Worker Type: Progress Notes Filed: 12/30/2023 08:20 Note Text: Cardiac Rehabilitation [facility] Based Program Supervising Physician: Len Menendez [...] Daily Exercise Log will be scanned into [email or web address] once it is completed. These can be [...] Plan, and education sessions covered. Katie Decker Break Off Worker [facility] 12-30-2023 History of Present illness Narrative [...] Daily Exercise Log will be scanned into [email or web address] once it is completed. These can be [...] Plan, and education sessions covered. Katie Decker Break Off Worker documented in this encounter [facility] 12-27-2023 Note HNO ID: [id number] Author: JOSIAH SUH shop welder Service: ? Author Type: Brush Polisher Type: Progress Notes Filed: 12/27/2023 08:22 Note Text: Cardiac Rehabilitation [facility] Based Program Supervising Physician: Len Menendez [...] Daily Exercise Log will be scanned into [email or web address] once it is completed. These can be [...] Individualized Treatment Plan, and education sessions covered. Jsoiah Suh Break Off Worker [facility] 12-27-2023 History of Present illness Narrative Images from the original note were not included. Cardiac Rehabilitation [facility] Based Program Supervising Physician: Len Menendez [...] Daily Exercise Log will be scanned into [email or web address] once it is completed. These can be [...] Plan, and education sessions covered. Josiah Suh Break Off Worker documented in this encounter [facility] 12-25-2023 Note HNO ID: [id number] Author: AVELINO ABURTO Break Off Worker Service: ? Author Type: Break Off Worker Type: Progress Notes Filed: 12/25/2023 08:23 Note Text: Cardiac Rehabilitation [facility] Based Program Supervising Physician: Len Menendez [...] Daily Exercise Log will be scanned into [email or web address] once it is completed. These can be [...] Plan, and education sessions covered. Avelino Aburto Break Off Worker [facility] 12-25-2023 History of Present illness Narrative [...] Daily Exercise Log will be scanned into [email or web address] once it is completed. These can be [...] Plan, and education sessions covered. Avelino Aburto Break Off Worker documented in this encounter [facility] 12-23-2023 Note HNO ID: [id number] Author: KATIE DECKER Break Off Worker Service: ? Author Type: Break Off Worker Type: Progress Notes Filed: 12/23/2023 08:15 Note Text: Cardiac Rehabilitation [facility] Based Program Supervising Physician: Len Menendez [...] Daily Exercise Log will be scanned into [email or web address] once it is completed. These can be [...] Plan, and education sessions covered. Katie Decker, Break Off Worker [facility] 12-23-2023 History of Present illness Narrative [...] Daily Exercise Log will be scanned into [email or web address] once it is completed. These can be [...] Plan, and education sessions covered. Katie Decker Break Off Worker documented in this encounter [facility] 12-20-2023 Note HNO ID: [id number] Author: JOSIAH SUH EKG Tech Service: ? Author Type: Brush Polisher Type: Progress Notes Filed: 12/20/2023 08:25 Note Text: Cardiac Rehabilitation [facility] Based Program Supervising Physician: Len Menendez [...] Daily Exercise Log will be scanned into [email or web address] once it is completed. These can be [...] Plan, and education sessions covered. Josiah Suh Break Off Worker [facility] 12-20-2023 History of Present illness Narrative [...] Daily Exercise Log will be scanned into [email or web address] once it is completed. These can be [...] Plan, and education sessions covered. Josiah Suh Break Off Worker documented in this encounter [facility] 12-18-2023 Note HNO ID: [id number] Author: AVELINO ABURTO Break Off Worker Service: ? Author Type: Break Off Worker Type: Progress Notes Filed: 12/18/2023 08:22 Note [...] Daily Exercise Log will be scanned into [email or web address] once it is completed. These can be [...] Plan, and education sessions covered. Avelino Aburto Break Off Worker [facility] 12-18-2023 History of Present illness Narrative [...] Daily Exercise Log will be scanned into [email or web address] once it is completed. These can be [...] Plan, and education sessions covered. Avelino Aburto Break Off Worker documented in this encounter [facility] 12-16-2023 Note HNO ID: [id number] Author: KATIE DECKER Break Off Worker Service: ? Author Type: Break Off Worker Type: Progress Notes Filed: 12/16/2023 08:26 Note Text: Cardiac Rehabilitation [facility] Based Program Supervising Physician: Len Menendez [...] Daily Exercise Log will be scanned into [email or web address] once it is completed. These can be [...] Plan, and education sessions covered. Katie Decker Break Off Worker [facility] 12-16-2023 History of Present illness Narrative [...] Daily Exercise Log will be scanned into [email or web address] once it is completed. These can be [...] Plan, and education sessions covered. Katie Decker Break Off Worker documented in this encounter [facility] 12-13-2023 Note HNO ID: [id number] Author: JOSIAH SUH, shop welder Service: ? Author Type: Brush Polisher Type: Progress Notes Filed: 12/13/2023 08:29 Note Text: Cardiac Rehabilitation [facility] Based Program Supervising Physician: Len Menendez [...] cardiac rehabilitation. Patient has verbalized understanding of AZ, angina, NTG education topic and the relation to disease managment. Patient's Daily Exercise Log will be scanned into [email or web address] once it is completed. These can be [...] Plan, and education sessions covered. Josiah Suh, Break Off Worker [facility] 12-13-2023 History of Present illness Narrative [...] cardiac rehabilitation. Patient has verbalized understanding of AZ, angina, NTG education topic and the relation to disease managment. Patient's Daily Exercise Log will be scanned into [email or web address] once it is completed. These can be [...] Plan, and education sessions covered. Josiah Suh Break Off Worker documented in this encounter [facility] 12-11-2023 Note HNO ID: [id number] Author: AVELINO ABURTO Break Off Worker Service: ? Author Type: Break Off Worker Type: Progress Notes Filed: 12/11/2023 08:23 Note Text: Cardiac Rehabilitation [facility] Based Program Supervising Physician: Len Menendez [...] Daily Exercise Log will be scanned into [email or web address] once it is completed. These can be [...] Plan, and education sessions covered. Avelino Aburto Break Off Worker [facility] 12-11-2023 History of Present illness Narrative [...] Daily Exercise Log will be scanned into [email or web address] once it is completed. These can be [...] Plan, and education sessions covered. Avelino Aburto Break Off Worker documented in this encounter [facility] 12-09-2023 Note HNO ID: [id number] Author: KATIE DECKER Break Off Worker Service: ? Author Type: Break Off Worker Type: Progress Notes Filed: 12/09/2023 08:22 Note Text: Cardiac Rehabilitation Hospital Based [...] Daily Exercise Log will be scanned into [email or web address] once it is completed. These can be [...] Plan, and education sessions covered. Katie Decker Break Off Worker [facility] 12-09-2023 History of Present illness Narrative Images from the original note were not included. Cardiac Rehabilitation [facility] Based Program Supervising Physician: Len Menendez [...] Daily Exercise Log will be scanned into [email or web address] once it is completed. These can be [...] Plan, and education sessions covered. Katie Decker Break Off Worker documented in this encounter [facility] 12-04-2023 Note HNO ID: [id number] Author: AVELINO ABURTO Break Off Worker Service: ? Author Type: Break Off Worker Type: Progress Notes Filed: 12/04/2023 08:19 Note Text: Cardiac Rehabilitation [facility] Based Program Supervising Physician: Len Menendez [...] Daily Exercise Log will be scanned into [email or web address] once it is completed. These can be [...] Plan, and education sessions covered. Avelino Aburto Break Off Worker [facility] 12-04-2023 History of Present illness Narrative [...] Daily Exercise Log will be scanned into [email or web address] once it is completed. These can be [...] Plan, and education sessions covered. Avelino Aburto, Break Off Worker documented in this encounter [facility] 12-03-2023 Note HNO ID: [id number] Author: JOSIAH SUH, shop welder Service: ? Author Type: Brush Polisher Type: Progress Notes Filed: 12/06/2023 08:27 Note [...] Daily Exercise Log will be scanned into [email or web address] once it is completed. These can be [...] Plan, and education sessions covered. Josiah Suh, Break Off Worker [facility] [place] [facility] Department of Cardiovascular Medicine 30 [...] lb (110.7kg) INDIVIDUAL TREATMENT PLAN Program Location: [place] EXERCISE REASSESSMENT Current Exercise at Rehab: Patient [...] Equipment orientation, Exerci (more content not included)... [facility] 12-02-2023 Note HNO ID: [id number] Author: KATIE DECKER Break Off Worker Service: ? Author Type: Break Off Worker Type: Progress Notes Filed: 12/02/2023 08:16 Note [...] Daily Exercise Log will be scanned into [email or web address] once it is completed. These can be [...] Plan, and education sessions covered. Katie Decker, Break Off Worker [facility] 12-02-2023 History of Present illness Narrative [...] Daily Exercise Log will be scanned into [email or web address] once it is completed. These can be [...] Plan, and education sessions covered. Katie Decker Break Off Worker documented in this encounter [facility] 11-29-2023 Note HNO ID: [id number] Author: AVELINO ABURTO Break Off Worker Service: ? Author Type: Break Off Worker Type: Progress Notes Filed: 11/29/2023 08:26 Note Text: Cardiac Rehabilitation [facility] Based Program Supervising Physician: Len Menendez [...] Daily Exercise Log will be scanned into [email or web address] once it is completed. These can be [...] Plan, and education sessions covered. Avelino Aburto Break Off Worker [facility] 11-29-2023 History of Present illness Narrative [...] Daily Exercise Log will be scanned into [email or web address] once it is completed. These can be [...] Plan, and education sessions covered. Avelino Aburto Break Off Worker documented in this encounter [facility] 11-27-2023 Note HNO ID: [id number] Author: AVELINO ABURTO Break Off Worker Service: ? Author Type: Break Off Worker Type: Progress Notes Filed: 11/27/2023 08:26 Note [...] Daily Exercise Log will be scanned into [email or web address] once it is completed. These can be [...] Plan, and education sessions covered. Avelino Aburto Break Off Worker [facility] 11-27-2023 History of Present illness Narrative [...] Daily Exercise Log will be scanned into [email or web address] once it is completed. These can be [...] Plan, and education sessions covered. Avelino Aburto Break Off Worker documented in this encounter [facility] 11-25-2023 Note HNO ID: [id number] Author: KATIE DECKER Break Off Worker Service: ? Author Type: Break Off Worker Type: Progress Notes Filed: 11/25/2023 08:10 Note Text: Cardiac Rehabilitation [facility] Based Program Supervising Physician: Len Menendez [...] Daily Exercise Log will be scanned into [email or web address] once it is completed. These can be [...] Plan, and education sessions covered. Katie Decker Break Off Worker [facility] 11-25-2023 History of Present illness Narrative [...] Daily Exercise Log will be scanned into [email or web address] once it is completed. These can be [...] Plan, and education sessions covered. Katie Decker Break Off Worker documented in this encounter [facility] 11-22-2023 Note HNO ID: [id number] Author: JOSIAH SUH, shop welder Service: ? Author Type: Brush Polisher Type: Progress Notes Filed: 11/22/2023 08:15 Note Text: Cardiac Rehabilitation [facility] Based Program Supervising Physician: Len Menendez [...] Daily Exercise Log will be scanned into [email or web address] once it is completed. These can be [...] Plan, and education sessions covered. Josiah Suh, Break Off Worker [facility] 11-22-2023 History of Present illness Narrative [...] Daily Exercise Log will be scanned into [email or web address] once it is completed. These can be [...] Plan, and education sessions covered. Josiah Suh Break Off Worker documented in this encounter [facility] 11-20-2023 Note HNO ID: [id number] Author: AVELINO ABURTO Break Off Worker Service: ? Author Type: Break Off Worker Type: Progress Notes Filed: 11/20/2023 08:22 Note Text: Cardiac Rehabilitation [facility] Based [...] Daily Exercise Log will be scanned into [email or web address] once it is completed. These can be [...] Plan, and education sessions covered. Avelino Aburto Break Off Worker [facility] 11-20-2023 History of Present illness Narrative [...] Daily Exercise Log will be scanned into [email or web address] once it is completed. These can be [...] Plan, and education sessions covered. Avelino Aburto Break Off Worker documented in this encounter [facility] 11-18-2023 Note HNO ID: [id number] Author: KATIE DECKER Break Off Worker Service: ? Author Type: Break Off Worker Type: Progress Notes Filed: 11/18/2023 08:19 Note Text: Card[facility] Rehabilitation [facility] Based [...] Daily Exercise Log will be scanned into [email or web address] once it is completed. These can be [...] Plan, and education sessions covered. Katie Decker Break Off Worker [facility] 11-18-2023 History of Present illness Narrative [...] Daily Exercise Log will be scanned into [email or web address] once it is completed. These can be [...] Plan, and education sessions covered. Katie Decker Break Off Worker documented in this encounter [facility] 11-15-2023 Note HNO ID: [id number] Author: AVELINO ABURTO Break Off Worker Service: ? Author Type: Break Off Worker Type: Progress Notes Filed: 11/15/2023 08:08 Note Text: [facility] Rehabilitation [facility] [...] Daily Exercise Log will be scanned into [email or web address] once it is completed. These can be [...] Plan, and education sessions covered. Avelino Aburto Break Off Worker [facility] 11-15-2023 History of Present illness Narrative [...] Daily Exercise Log will be scanned into [email or web address] once it is completed. These can be [...] Plan, and education sessions covered. Avelino Aburto, Break Off Worker documented in this encounter [facility] 11-13-2023 Note HNO ID: [id number] Author: AVELINO ABURTO Break Off Worker Service: ? Author Type: Break Off Worker Type: Progress Notes Filed: 11/13/2023 08:16 Note [...] Daily Exercise Log will be scanned into [email or web address] once it is completed. These can be [...] Plan, and education sessions covered. Avelino Aburto Break Off Worker [facility] 11-13-2023 History of Present illness Narrative [...] Daily Exercise Log will be scanned into [email or web address] once it is completed. These can be [...] Plan, and education sessions covered. Avelino Aburto Break Off Worker documented in this encounter [facility] 11-11-2023 Note HNO ID: [id number] Author: KATIE DECKER Break Off Worker Service: ? Author Type: Break Off Worker Type: Progress Notes Filed: 11/11/2023 08:16 Note Text: Cardiac Rehabilitation [facility] Based [...] Daily Exercise Log will be scanned into [email or web address] once it is completed. These can be [...] Plan, and education sessions covered. Katie Decker Break Off Worker [facility] 11-11-2023 History of Present illness Narrative [...] Daily Exercise Log will be scanned into [email or web address] once it is completed. These can be [...] Plan, and education sessions covered. Katie Decker Break Off Worker documented in this encounter [facility] 11-08-2023 Note HNO ID: [id number] Author: LEN SANTACRUZ DO Service: ? Author Type: Break Off Worker Type: Progress Notes Filed: 11/12/2023 07:57 Note Text: Attestation signed by Len Santacruz DO at 11/12/2023 7:57 AM I have reviewed the detailed Individualized Treatment Plan assessment and plan for the patient as described above and agree with the recommendations. Len Santacruz DO, [facility], [facility] Clinical and Preventive Cardiology Department of Medicine and Division of Cardiology, [facility] Staff Public Works Manager, [facility] Department of Cardiovascular Medicine/Heart [facility] V[facility] [place], [facility] Clinical assistant program director Profressor of Medicine, [facility] Program Supervising Physician: [...] Daily Exercise Log will be scanned into [email or web address] once it is completed. These can be [...] Plan, and education sessions covered. Avelino Aburto, Break Off Worker Patient's 30 day ITP located in 30 day doc flowsheet. [facility] 11-06-2023 Note HNO ID: [id number] Author: JOSIAH SUH, shop welder Service: ? Author Type: Brush Polisher Type: Progress Notes Filed: 11/06/2023 08:19 Note [...] Daily Exercise Log will be scanned into [email or web address] once it is completed. These can be [...] Plan, and education sessions covered. Josiah Suh Break Off Worker [facility] 11-06-2023 History of Present illness Narrative Images from the original note were not included. Cardiac Rehabilitation [facility] Based Program Supervising Physician: Len Menendez [...] Daily Exercise Log will be scanned into [email or web address] once it is completed. These can be [...] Plan, and education sessions covered. Josiah Suh Break Off Worker documented in this encounter [facility] 11-04-2023 Note HNO ID: [id number] Author: KATIE DECKER Break Off Worker Service: ? Author Type: Break Off Worker Type: Progress Notes Filed: 11/04/2023 08:21 Note [...] Daily Exercise Log will be scanned into [email or web address] once it is completed. These can be [...] Plan, and education sessions covered. Katie Decker, Break Off Worker [facility] 11-01-2023 Note HNO ID: [id number] Author: KATIE DECKER Break Off Worker Service: ? Author Type: Break Off Worker Type: Progress Notes Filed: 11/01/2023 08:01 Note [...] rehabilitation. Patient has verbalized understanding of Angina, [place], NTG education topic and the relation to disease managment. Patient's Daily Exercise Log will be scanned into [email or web address] once it is completed. These can be [...] Plan, and education sessions covered. Katie Decker Break Off Worker [facility] 11-01-2023 History of Present illness Narrative [...] rehabilitation. Patient has verbalized understanding of Angina, AZ, NTG education topic and the relation to disease managment. Patient's Daily Exercise Log will be scanned into [email or web address] once it is completed. These can be [...] Plan, and education sessions covered. Katie Decker Break Off Worker documented in this encounter [facility] 10-30-2023 Note HNO ID: [id number] Author: CASS MARI RN Service: ? Author Type: Registered Nurse Type: Progress Notes Filed: 10/30/2023 11:44 Note Text: QOL Call Tracking Documentation Follow-Up Type: Phone Call Call Attempt: 1st Attempt Call Status: Left Message [facility] 10-30-2023 History of Present illness Narrative QOL Call Tracking Documentation Follow-Up Type: Phone Call Call Attempt: 1st Attempt Call Status: Left Message documented in this encounter [facility] 10-30-2023 Note HNO ID: [id number] Author: KATIE DECKER Break Off Worker Service: ? Author Type: Break Off Worker Type: Progress Notes Filed: 10/30/2023 08:09 Note [...] Daily Exercise Log will be scanned into [email or web address] once it is completed. These can be [...] Plan, and education sessions covered. Katie Decker Break Off Worker [facility] 10-30-2023 History of Present illness Narrative [...] Daily Exercise Log will be scanned into [email or web address] once it is completed. These can be [...] Plan, and education sessions covered. Katie Decker Break Off Worker documented in this encounter [facility] 10-30-2023 Note Patient Outreach (LISA [facility]) MARTIN HENSON ([id number]) 1955 M Date Time Provider Department 10/30/23 [...] PAIN-UNSPEC [M25.50] 05/20/2006 10/03/2006 SPRAIN SHOULDER/ARM NOS [[id number]] 05/20/2006 10/03/2006 Complete rupture of rotator cuff [...] Encounter Status:Closed by CASS MARI on 10/30/23 [facility] 10-28-2023 History of Present illness Narrative Images [...] Daily Exercise Log will be scanned into [email or web address] once it is completed. These can be [...] Plan, and education sessions covered. Avelino Aburto Break Off Worker documented in this encounter [facility] 10-28-2023 Note HNO ID: [id number] Author: AVELINO ABURTO Break Off Worker Service: ? Author Type: Break Off Worker Type: Progress Notes Filed: 10/28/2023 08:12 Note [...] Daily Exercise Log will be scanned into [email or web address] once it is completed. These can be [...] Plan, and education sessions covered. Avelino Aburto, Break Off Worker [facility] 10-25-2023 Note HNO ID: [id number] Author: AVELINO ABURTO Break Off Worker Service: ? Author Type: Break Off Worker Type: Progress Notes Filed: 10/25/2023 08:19 Note [...] Daily Exercise Log will be scanned into [email or web address] once it is completed. These can be [...] Plan, and education sessions covered. Avelino Aburto Break Off Worker [facility] 10-25-2023 History of Present illness Narrative Images from the original note were not included. Cardiac Rehabilitation [facility] Based Program Supervising Physician: Len Menendez [...] Daily Exercise Log will be scanned into [email or web address] once it is completed. These can be [...] Plan, and education sessions covered. Avelino Aburto Break Off Worker documented in this encounter [facility] 10-23-2023 Note HNO ID: [id number] Author: JOSIAH SUH, shop welder Service: ? Author Type: Brush Polisher Type: Progress Notes Filed: 10/23/2023 08:09 Note Text: Cardiac Rehabilitation [facility] Based Program Supervising Physician: Len Menendez [...] Daily Exercise Log will be scanned into [email or web address] once it is completed. These can be [...] Plan, and education sessions covered. Josiah Suh Break Off Worker [facility] 10-23-2023 History of Present illness Narrative [...] Daily Exercise Log will be scanned into [email or web address] once it is completed. These can be [...] Plan, and education sessions covered. Josiah Suh Break Off Worker documented in this encounter [facility] 10-21-2023 Note HNO ID: [id number] Author: AVELINO ABURTO Break Off Worker Service: ? Author Type: Break Off Worker Type: Progress Notes Filed: 10/21/2023 08:17 Note [...] Daily Exercise Log will be scanned into [email or web address] once it is completed. These can be [...] Plan, and education sessions covered. Avelino Aburto, Break Off Worker [facility] 10-21-2023 History of Present illness Narrative Images from the original note were not included. Cardiac Rehabilitation [facility] Based Program Supervising Physician: Len Menendez [...] Daily Exercise Log will be scanned into [email or web address] once it is completed. These can be [...] Plan, and education sessions covered. Avelino Aburto Break Off Worker documented in this encounter [facility] 10-18-2023 Note HNO ID: [id number] Author: AVELINO ABURTO Break Off Worker Service: ? Author Type: Break Off Worker Type: Progress Notes Filed: 10/18/2023 08:19 Note Text: Cardiac Rehabilitation Hospital Based [...] Daily Exercise Log will be scanned into [email or web address] once it is completed. These can be [...] Plan, and education sessions covered. Avelino Aburto Break Off Worker [facility] 10-18-2023 History of Present illness Narrative [...] Daily Exercise Log will be scanned into [email or web address] once it is completed. These can be [...] Plan, and education sessions covered. Avelino Aburto, Break Off Worker documented in this encounter [facility] 10-16-2023 Note HNO ID: [id number] Author: JOSIAH SUH, shop welder Service: ? Author Type: Brush Polisher Type: Progress Notes Filed: 10/16/2023 08:13 Note [...] Daily Exercise Log will be scanned into [email or web address] once it is completed. These can be [...] Plan, and education sessions covered. Josiah Suh Break Off Worker [facility] 10-16-2023 History of Present illness Narrative [...] Daily Exercise Log will be scanned into [email or web address] once it is completed. These can be [...] Plan, and education sessions covered. Josiah Suh Break Off Worker documented in this encounter [facility] 10-14-2023 Note HNO ID: [id number] Author: AVELINO ABURTO Break Off Worker Service: ? Author Type: Break Off Worker Type: Progress Notes Filed: 10/14/2023 08:09 Note [...] Daily Exercise Log will be scanned into [email or web address] once it is completed. These can be [...] Plan, and education sessions covered. Avelino Aburto Break Off Worker [facility] 10-14-2023 History of Present illness Narrative Images from the original note were not included. Cardiac Rehabilitation [facility] Based Program Supervising Physician: Len Menendez [...] Daily Exercise Log will be scanned into [email or web address] once it is completed. These can be [...] Plan, and education sessions covered. Avelino Aburto Break Off Worker documented in this encounter [facility] 10-11-2023 Note HNO ID: [id number] Author: AVELINO ABURTO Break Off Worker Service: ? Author Type: Break Off Worker Type: Progress Notes Filed: 10/11/2023 08:10 Note [...] Daily Exercise Log will be scanned into [email or web address] once it is completed. These can be [...] Plan, and education sessions covered. Avelino Aburto, Break Off Worker [facility] 10-11-2023 History of Present illness Narrative Images from the original note were not included. Cardiac Rehabilitation [facility] Based Program Supervising Physician: Len Menendez [...] Daily Exercise Log will be scanned into [email or web address] once it is completed. These can be [...] Plan, and education sessions covered. Avelino Aburto, Break Off Worker documented in this encounter [facility] 10-09-2023 Note HNO ID: [id number] Author: LEN SANTACRUZ DO Service: ? Author Type: Break Off Worker Type: Progress Notes Filed: 10/18/2023 17:12 Note Text: Attestation signed by Len Santacruz DO at 10/18/2023 5:12 PM I have reviewed the detailed Individualized Treatment Plan assessment and plan for the patient as described above and agree with the recommendations. Len Santacruz DO, FACC, FACOI Clinical and Preventive Cardiology Department of Medicine and Division of Cardiology, [facility] Staff Public Works Manager, [facility] Department of Cardiovascular Medicine/Heart and Vascular [place], [facility] Clinical assistant program director Profressor of Medicine, [facility] Heart [facility] [place] [facility] Department of Cardiovascular Medicine Initial [...] PROSTH W/O ECP 2005 Cataract Removal bilateral Social History Tobacco Use [...] 32.85 kg/(m2). INDIVIDUAL TREATMENT PLAN Program Location: [place] [facility]iac [facility] evaluation site : [facility]hab Completed : [place] Program: Entry Phase II Primary Reason For [...] as Tolerated;Within Target (more content not included)... [facility] 09-18-2023 Instructions Deena Francois MD - 09/18/2023 4:21 PM EST PLAN AND RECOMMENDATIONS: no change in current meds - Start Cardiac Rehab - Always avoid heavy lifting , nothing above 35-40 pounds - Keep you Blood Pressure lower between 100 and 135: start Lisinopril 5 mg/day and Jardiance 10 - F/U in 3 months documented in this encounter [facility] 09-18-2023 Note HNO ID: [id number] Author: DEENA FRANCOIS MD Service: ? Author Type: Physician Type: Progress Notes Filed: 09/22/2023 14:22 Note Text: Heart, Vascular and Thoracic [place] [facility] Department of Cardiovascular Medicine SECTION OF CLINICAL CARDIOLOGY OUTPATIENT VISIT DATE September 18, 2023 OUTPATIENT VISIT TYPE ESTABLISHED PRIMARY CARE PHYSICIAN: ABDIEL MATHEWS [address] [facility] [address] REFERRING PHYSICIAN: No referring provider defined for [...] Lido patches. Dispo - 67[place] [address]. No dc needs. CM following. OPD and [...] day. (Patient not (more content not included)... [facility] 09-18-2023 History of Present illness Narrative Images from the original note were not included. Heart, Vascular and Thoracic [facility] Department of Cardiovascular Medicine SECTION OF CLINICAL CARDIOLOGY OUTPATIENT VISIT DATE September 18, 2023 OUTPATIENT VISIT TYPE ESTABLISHED PRIMARY CARE PHYSICIAN: ABDIEL MATHEWS [facility] [id number] REFERRING PHYSICIAN: No referring provider defined for [...] Lido patches. Dispo - 67[place] [address]. No dc needs. CM following. OPD and [...] * * Final * * * RP Wagon Driver Salesperson: ZAC Transcribe Date/Time: Jul 24 2023 4:11P Dictated by : ANN LEACH MD This examination was interpreted and the report reviewed and electronically signed by: ANN LEACH MD on Jul 25 2023 10:36AM EST I have personally reviewed the Electrocardiogram. IMPRESSION: Mr H. 67 yo with due to [...] Deena Francois MD documented in this encounter [facility] 08-12-2023 Miscellaneous Notes We are calling to check on how you are doing since our last phone call. Are you having any medical concerns we can help you with today? -No new medical concerns today. Call Outcome: All Clear All clear and closing statement given. PD RN verified patients name and date of . Teresa Patel RN documented in this encounter [facility] 08-08-2023 History of Present illness Narrative Images from the original note were not included. Heart and Vascular [facility] Department of Cardiovascular Medicine DEPARTMENT OF CARDIAC SURGERY OUTPATIENT VISIT DATE August 08, 2023 OUTPATIENT VISIT TYPE POSTOPERATIVE Martin Henson is a 67 year old male who presents who is here for post operative follow up HPI: SURGERY/PROCEDURE DATE: 07/29/2023 INCISION/PROCEDURE START TIME: 8:11 AM INCISION CLOSE/PROCEDURE END TIME: 11:35 AM SURGEON(S)/PROCEDURALIST(S) AND SENIOR SHIPPING CLERK(S): Surgeon(s) and Role: * Usha Navarro MD - Primary * Greg Casas MD - Assisting Registered Nurse Mail Distributor: Nabor Sheehan RN ANESTHESIA: General CTS OP [...] pre and post CPB; 2. True bicuspid [place] aortic valve with heavy calcification of both [...] and intact, no cellulitis Wound: NA SV [place] sites: n/a Radial Artery [place] site: n/s Procedures: Sutures removed from chest tube sites without difficulty. IMPRESSION & PLAN: 1. SURGERY/PROCEDURE DATE: 07/29/2023 INCISION/PROCEDURE START TIME: 8:11 AM INCISION CLOSE/PROCEDURE END TIME: 11:35 AM SURGEON(S)/PROCEDURALIST(S) AND SENIOR SHIPPING CLERK(S): Surgeon(s) and Role: * Usha Navarro MD - Primary * Greg Casas MD - Assisting Registered Nurse Mail Distributor: Nabor Sheehan RN ANESTHESIA: General CTS OP [...] pre and post CPB; 2. True bicuspid [place] aortic valve with heavy calcification of both [...] pleural effusion SBE prophylaxis reviewed Justo Mehta APRN.PROFESSIONAL BENEFITS SALES CONSULTANT documented in this encounter [facility] 08-08-2023 History of Present illness Narrative Radiology [...] 2023 1:07 PM documented in this encounter [facility] 07-25-2023 History of Present illness Narrative AMBULATORY [...] any further questions documented in this encounter [facility] 07-25-2023 History and physical note CHART COPY-DO [...] tonsillectomy <12 years DERM: Denies Dermatological Complaints PARAEDUCATOR: Dizziness with rapid positional changes RESP: Dyspnea [...] * * Final * * * RP Wagon Driver Salesperson: ZAC Transcribe Date/Time: Jul 24 2023 4:11P [...] Physical dated 07/24/2023 documented in this encounter [facility] 07-25-2023 History of Present illness Narrative Consult [...] Navarro MD, PhD documented in this encounter [facility] 07-25-2023 History of Present illness Narrative Cardiothoracic [...] for: HBA1C Recent Results (from the past 8760 hour(s)) ECG COMPLETE Collection Time: 07/24/23 9:56 [...] and consent discussed: yes. Patient / Responsible Green Party agrees to proceed: yes Patient / Surrogate agrees to blood products: Yes Instructions Given to Patient: Instructions located in the after visit summary. Patient given verbal and written preop instructions and voices comprehension and compliance. Signature: Ariadna Gonzalez MD Patient Name: Martin Henson Date: July 25, 2023 Time: 9:56 AM Pager/Contact #: documented in this encounter [facility] 07-24-2023 History of Present illness Narrative Radiology [...] Intact, Site disposition Discontinued SIGNED BY: RT Kelsy(Carla) July 24, 2023 4:33 PM documented in this encounter [facility] 07-24-2023 History of Present illness Narrative Images from the original note were not included. Heart and Vascular [facility] Department of Cardiovascular Medicine SECTION OF CLINICAL CARDIOLOGY OUTPATIENT VISIT DATE July 24, 2023 OUTPATIENT VISIT TYPE CONSULTATION PRIMARY CARE PHYSICIAN: ABDIEL MATHEWS [address] [address] REFERRING PHYSICIAN Usha Navarro [address] [facility] [address] CHIEF COMPLAINT: No chief complaint on file. 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 NURSING INTAKE: Mr. Henson is a 67 year old male from [place], [place] here today for preoperative cardiovascular evaluation for scheduled AVR +/- Myectomy on 07/29/[address] Usha Navarro. 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 Diet: Regular Exercise: Walking daily on the [...] for Phase velocity mapping Heraclio Fine MD Wagon Driver Salesperson: [facility] Transcribe Date/Time: Jun 27 2023 9:11P Dictated [...] PROCESS Note from chart: Author Nitesh Jimenez [facility] June 03, 2023 4:27pm Note Date/Time May 30, 2023 2:09pm [facility] Medical Records Department [address] [place] [address] History & Physical Exam 05/30/23 1406 MR#: [id number] Acct: [id number] Name: MARTIN HENSON Rep #:[id number] : 1955 67 From: Nitesh Jimenez MD PCP: ALEXANDRA Mathew Status:PRE [facility] Location: [facility] Note from Chart Jun 2023: [...] coronary disease (was done last month in [place]) and Carotid duplex US also done in [place]? A priori was told that he had [...] And work up has been done in [place] and is a priori negative for amyloidosis. I personally interviewed, confirmed and edited the above information as obtained by others. CONTACT INFORMATION: Deena Francois MD, [facility] documented in this encounter [facility] 07-24-2023 History of Present illness Narrative PULM FUNCTION SMARTBLOCK: Provider: Usha Navarro MD Spirometry: 1 DLCO: 1 documented in this encounter [facility] 07-22-2023 History of Present illness Narrative QOL Call Tracking Documentation Follow-Up Type: Phone Call Call Attempt: 1st Attempt Call Status: Patient will complete in MyChart documented in this encounter [facility] 07-22-2023 History of Present illness Narrative QOL Call Tracking Documentation Follow-Up Type: Phone Call Call Attempt: 1st Attempt Call Status: Patient will complete in MyChart documented in this encounter [facility] 07-10-2023 Miscellaneous Notes CARE CONTINUUM ADVISOR ASSESSMENT PRIMARY CARE PHYSICIAN: Abdiel Mathews NP OR Surgery Date: 07/29/23 [facility] Appointment: 07/25/23 Health Insurance: [employer] MEDICARE , [facility] Financial Resources: Retired Primary Contact: Extended Emergency Contact Information Primary Emergency Contact: Alexia Batista Address: [address] [place] [address] Mobile Relation: Spouse Other Important Patient Contacts: None Patient/Chemical Technician Stated Goals: To return home to life as it was Vacuum Caster needed?: No Home Phone Primary Contact: NA Cell Phone Primary Contact:NA ADVANCE DIRECTIVES: Does Patient Have Advance Directives? [...] to drive w/spouse and stay at local Hot Medication Adherence: Do you have any concerns with your prescription medication?: No Who do you use for pharmacy?: [facility] [address] [place] [phone] [id number] [facility] [phone] [id number] Pre-Hospital Baseline Mental Status: Alert & Oriented Informant: Self What is your current functional status?: Perform ADLs independently Equipment: Do you currently use any equipment at home for your medical condition or to help you get around? None Active Services/Needs: None Do you have a patrol community service officer contact through your insurance or WRAAA?: No Has the Patient Been in a Shelter Facility in the Past 30 days? No FREEDOM OF CHOICE: Level of Care Discussed: Home Care, Shelter Facility, Inpatient Rehab Facility, [facility], and Cardiac Rehab Financial Disclosure Provided: No Financial Disclaimer Provided: Yes, regarding pre-cert / insurance authorization Provider List: Home Care Provider list within the patient's requested geographic area shared with the patient/family: Yes - Within [address] of [address] [place] [address] PAC Provider Choices Collected Home Health: 1. [facility] 2. [facility] 3. [facility] Interventions: Discussed importance of active PCP relationship and follow up Discussed insurance risks, gaps, and programs available Advanced Directives Education Discussed reliable transportation needs for surgery and follow up appointments Discussed prescription medications adherence Robert Arora, RN documented in this encounter [facility] 06-03-2023 History and physi derek note Note Date/Time May 30, 2023 2:09pm [facility] Medical Records Department [address] [place] [address] History & Physical Exam 05/30/23 1406 MR#: [id number] Acct: [id number] Name: MARTIN HENSON Rep #:[id number] : 1955 67 From: Nitesh Jimenez MD PCP: ALEXANDRA Mathew Status:PRE [facility] Location: [facility] History and Physical Date of [...] Vital Signs: See EMR Intake Visit Reasons: [facility] Vacuum Caster Required: No Is patient in pain?: No Allergies No Known Allergies Allergy (Verified 04/30/23 09:01) Medications See EMR [facility] Medical History Abnormal echocardiogram findings without diagnosis Abnormal electrocardiogram Angina pectoris Aortic root dilatation Bicuspid aortic valve Cardiomyopathy Chest pain Essential hypertension Family history of CVA Family history of hypertension Nonrheumatic aortic (valve) stenosis (~09/20/21) Other half-way (current) drug therapy Pure hypercholesterolemia Undiagnosed cardiac [...] current occupational status: retired 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 Nitesh Jimenez MD~ Signed [facility] Work Phone: 1(273) 984-332804-14-2023 NoteHNO ID: [id number] Author: RT Migdalia(R) Service: Radiology Author Type: Technologist Type: Progress [...] MR; Exam(s) Completed: Cardiac: Cardiac SIGNATURE: RT Migdalia(Carla) PATIENT NAME: Martin Henson DATE: December 21, 2022 [facility]: 9[facility] of Present illness Narrative* SID [...] MR; Exam(s) Completed: Cardiac: Cardiac SIGNATURE: RT Migdalia(Carla) PATIENT NAME: Martin Henson DATE: December 21, 2022 TIME: 9:13 AM [facility] Miscellaneous Notes* Telephone Encounter - TORRES NegronR) - 12/07/2022 6:41 AM EDT CMR Protocol needed for this outpatient scheduled on 12/21. Thank you [facility] Evaluation note* Diagnosis Onset Date Resolution Status Nonrheumatic aortic (valve) stenosis September, acute Aortic root dilatation chron ic Bicuspid aortic valve chroni c Essential hypertension chron ic Pure hypercholesterolemia ch ronic Cardiomyopathy chronic Cardiomyopathy [facility] Work Phone: 1(780) 798-344309-11-2006 History of Past illness Narrative* Problem Noted Date Resolved Date Pain in joint, site unspecified 05/20/2006 10/03/2006 Sprain and strain of unspeci fied site of shoulder and upper arm 05/20/2006 10/03/2006 documented as of this encounter (statuses as of 12/07/2022) [facility] History of Past illness Narrative* Problem Noted Date Resolved Date Pain in joint, site unspecified 05/20/2006 10/03/2006 Sprain and strain of unspeci fied site of shoulder and upper arm 05/20/2006 10/03/2006 documented as of this encounter (statuses as of 12/22/2022) [facility] History of Past illness Narrative* Problem Noted Date Diagnosed Date Resolved Date Pain in joint, site unspecified 05/20/2006 10/03/2006 Sprain and strain of unspeci fied site of shoulder and upper arm 05/20/2006 10/03/2006 documented as of this encounter (statuses as of 07/11/2023) [facility] History of Past illness Narrative* Problem Noted Date Diagnosed Date Resolved Date Pain in joint, site unspecified 05/20/2006 10/03/2006 Sprain and strain of unspeci fied site of shoulder and upper arm 05/20/2006 10/03/2006 documented as of this encounter (statuses as of 07/22/2023) [facility] History of Past illness Narrative* Problem Noted Date Diagnosed Date Resolved Date Pain in joint, site unspecified 05/20/2006 10/03/2006 Sprain and strain of unspeci fied site of shoulder and upper arm 05/20/2006 10/03/2006 documented as of this encounter (statuses as of 07/24/2023) [address]2006 History of Past illness Narrative* Problem Noted Date Diagnosed Date Resolved Date Pain in joint, site unspecified 05/20/2006 10/03/2006 Sprain and strain of unspeci fied site of shoulder and upper arm 05/20/2006 10/03/2006 documented as of this encounter (statuses as of 07/24/2023) [address]11-2006 History of Past illness Narrative* Problem Noted Date Diagnosed Date Resolved Date Pain in joint, site unspecified 05/20/2006 10/03/2006 Sprain and strain of unspeci fied site of shoulder and upper arm 05/20/2006 10/03/2006 documented as of this encounter (statuses as of 07/24/2023) [address]11[address]2006 History of Past illness Narrative* Problem Noted Date Diagnosed Date Resolved Date Pain in joint, site unspecified 05/20/2006 10/03/2006 Sprain and strain of unspeci fied site of shoulder and upper arm 05/20/2006 10/03/2006 documented as of this encounter (statuses as of 07/25/2023) [address]11[address]2006 History of Past illness Narrative* Problem Noted Date Diagnosed Date Resolved Date Pain in joint, site unspecified 05/20/2006 10/03/2006 Sprain and strain of unspeci fied site of shoulder and upper arm 05/20/2006 10/03/2006 documented as of this encounter (statuses as of 07/25/2023) [address]2006 History of Past illness Narrative* Problem Noted Date Diagnosed Date Resolved Date Pain in joint, site unspecified 05/20/2006 10/03/2006 Sprain and strain of unspeci fied site of shoulder and upper arm 05/20/2006 10/03/2006 documented as of this encounter (statuses as of 07/25/2023) [address]2006 History of Past illness Narrative* Problem Noted Date Diagnosed Date Resolved Date Pain in joint, site unspecified 05/20/2006 10/03/2006 Sprain and strain of unspeci fied site of shoulder and upper arm 05/20/2006 10/03/2006 documented as of this encounter (statuses as of 07/25/2023) [address]2006 History of Past illness Narrative* Problem Noted Date Diagnosed Date Resolved Date Pain in joint, site unspecified 05/20/2006 10/03/2006 Sprain and strain of unspeci fied site of shoulder and upper arm 05/20/2006 10/03/2006 documented as of this encounter (statuses as of 08/02/2023) [address]2006 History of Past illness Narrative* Problem Noted Date Diagnosed Date Resolved Date Pain in joint, site unspecified 05/20/2006 10/03/2006 Sprain and strain of unspeci fied site of shoulder and upper arm 05/20/2006 10/03/2006 documented as of this encounter (statuses as of 08/03/2023) [address]2006 History of Past illness Narrative* Problem Noted Date Diagnosed Date Resolved Date Pain in joint, site unspecified 05/20/2006 10/03/2006 Sprain and strain of unspeci fied site of shoulder and upper arm 05/20/2006 10/03/2006 documented as of this encounter (statuses as of 08/09/2023) [address]2006 History of Past illness Narrative* Problem Noted Date Diagnosed Date Resolved Date Pain in joint, site unspecified 05/20/2006 10/03/2006 Sprain and strain of unspeci fied site of shoulder and upper arm 05/20/2006 10/03/2006 documented as of this encounter (statuses as of 08/09/2023) [address]2006 History of Past illness Narrative* Problem Noted Date Diagnosed Date Resolved Date Pain in joint, site unspecified 05/20/2006 10/03/2006 Sprain and strain of unspeci fied site of shoulder and upper arm 05/20/2006 10/03/2006 documented as of this encounter (statuses as of 08/12/2023) [address]2006 History of Past illness Narrative* Problem Noted Date Diagnosed Date Resolved Date Pain in joint, site unspecified 05/20/2006 10/03/2006 Sprain and strain of unspeci fied site of shoulder and upper arm 05/20/2006 10/03/2006 documented as of this encounter (statuses as of 09/22/2023) [address]2006 History of Past illness Narrative* Problem Noted Date Diagnosed Date Resolved Date Pain in joint, site unspecified 05/20/2006 10/03/2006 Sprain and strain of unspeci fied site of shoulder and upper arm 05/20/2006 10/03/2006 documented as of this encounter (statuses as of 10/11/2023) [address]2006 History of Past illness Narrative* Problem Noted Date Diagnosed Date Resolved Date Pain in joint, site unspecified 05/20/2006 10/03/2006 Sprain and strain of unspeci fied site of shoulder and upper arm 05/20/2006 10/03/2006 documented as of this encounter (statuses as of 10/14/2023) [address]2006 History of Past illness Narrative* Problem Noted Date Diagnosed Date Resolved Date Pain in joint, site unspecified 05/20/2006 10/03/2006 Sprain and strain of unspeci fied site of shoulder and upper arm 05/20/2006 10/03/2006 documented as of this encounter (statuses as of 10/16/2023) [address]2006 History of Past illness Narrative* Problem Noted Date Diagnosed Date Resolved Date Pain in joint, site unspecified 05/20/2006 10/03/2006 Sprain and strain of unspeci fied site of shoulder and upper arm 05/20/2006 10/03/2006 documented as of this encounter (statuses as of 10/18/2023) [address]2006 History of Past illness Narrative* Problem Noted Date Diagnosed Date Resolved Date Pain in joint, site unspecified 05/20/2006 10/03/2006 Sprain and strain of unspeci fied site of shoulder and upper arm 05/20/2006 10/03/2006 documented as of this encounter (statuses as of 10/21/2023) [address]2006 History of Past illness Narrative* Problem Noted Date Diagnosed Date Resolved Date Pain in joint, site unspecified 05/20/2006 10/03/2006 Sprain and strain of unspeci fied site of shoulder and upper arm 05/20/2006 10/03/2006 documented as of this encounter (statuses as of 10/23/2023) [address]2006 History of Past illness Narrative* Problem Noted Date Diagnosed Date Resolved Date Pain in joint, site unspecified 05/20/2006 10/03/2006 Sprain and strain of unspeci fied site of shoulder and upper arm 05/20/2006 10/03/2006 documented as of this encounter (statuses as of 10/25/2023) [address]2006 History of Past illness Narrative* Problem Noted Date Diagnosed Date Resolved Date Pain in joint, site unspecified 05/20/2006 10/03/2006 Sprain and strain of unspeci fied site of shoulder and upper arm 05/20/2006 10/03/2006 documented as of this encounter (statuses as of 10/28/2023) [address]2006 History of Past illness Narrative* Problem Noted Date Diagnosed Date Resolved Date Pain in joint, site unspecified 05/20/2006 10/03/2006 Sprain and strain of unspeci fied site of shoulder and upper arm 05/20/2006 10/03/2006 documented as of this encounter (statuses as of 10/30/2023) [address]2006 History of Past illness Narrative* Problem Noted Date Diagnosed Date Resolved Date Pain in joint, site unspecified 05/20/2006 10/03/2006 Sprain and strain of unspeci fied site of shoulder and upper arm 05/20/2006 10/03/2006 documented as of this encounter (statuses as of 10/30/2023) [address]2006 History of Past illness Narrative* Problem Noted Date Diagnosed Date Resolved Date Pain in joint, site unspecified 05/20/2006 10/03/2006 Sprain and strain of unspeci fied site of shoulder and upper arm 05/20/2006 10/03/2006 documented as of this encounter (statuses as of 11/01/2023) [address]2006 History of Past illness Narrative* Problem Noted Date Diagnosed Date Resolved Date Pain in joint, site unspecified 05/20/2006 10/03/2006 Sprain and strain of unspeci fied site of shoulder and upper arm 05/20/2006 10/03/2006 documented as of this encounter (statuses as of 11/06/2023) [address]2006 History of Past illness Narrative* Problem Noted Date Diagnosed Date Resolved Date Pain in joint, site unspecified 05/20/2006 10/03/2006 Sprain and strain of unspeci fied site of shoulder and upper arm 05/20/2006 10/03/2006 documented as of this encounter (statuses as of 11/08/2023) [address]2006 History of Past illness Narrative* Problem Noted Date Diagnosed Date Resolved Date Pain in joint, site unspecified 05/20/2006 10/03/2006 Sprain and strain of unspeci fied site of shoulder and upper arm 05/20/2006 10/03/2006 documented as of this encounter (statuses as of 11/11/2023) [address]2006 History of Past illness Narrative* Problem Noted Date Diagnosed Date Resolved Date Pain in joint, site unspecified 05/20/2006 10/03/2006 Sprain and strain of unspeci fied site of shoulder and upper arm 05/20/2006 10/03/2006 documented as of this encounter (statuses as of 11/13/2023) [address]2006 History of Past illness Narrative* Problem Noted Date Diagnosed Date Resolved Date Pain in joint, site unspecified 05/20/2006 10/03/2006 Sprain and strain of unspeci fied site of shoulder and upper arm 05/20/2006 10/03/2006 documented as of this encounter (statuses as of 11/15/2023) [address]2006 History of Past illness Narrative* Problem Noted Date Diagnosed Date Resolved Date Pain in joint, site unspecified 05/20/2006 10/03/2006 Sprain and strain of unspeci fied site of shoulder and upper arm 05/20/2006 10/03/2006 documented as of this encounter (statuses as of 11/18/2023) [address]2006 History of Past illness Narrative* Problem Noted Date Diagnosed Date Resolved Date Pain in joint, site unspecified 05/20/2006 10/03/2006 Sprain and strain of unspeci fied site of shoulder and upper arm 05/20/2006 10/03/2006 documented as of this encounter (statuses as of 11/20/2023) [address]2006 History of Past illness Narrative* Problem Noted Date Diagnosed Date Resolved Date Pain in joint, site unspecified 05/20/2006 10/03/2006 Sprain and strain of unspeci fied site of shoulder and upper arm 05/20/2006 10/03/2006 documented as of this encounter (statuses as of 11/22/2023) [address]2006 History of Past illness Narrative* Problem Noted Date Diagnosed Date Resolved Date Pain in joint, site unspecified 05/20/2006 10/03/2006 Sprain and strain of unspeci fied site of shoulder and upper arm 05/20/2006 10/03/2006 documented as of this encounter (statuses as of 11/25/2023) [address]11-2006 History of Past illness Narrative* Problem Noted Date Diagnosed Date Resolved Date Pain in joint, site unspecified 05/20/2006 10/03/2006 Sprain and strain of unspeci fied site of shoulder and upper arm 05/20/2006 10/03/2006 documented as of this encounter (statuses as of 11/27/2023) [address]11-2006 History of Past illness Narrative* Problem Noted Date Diagnosed Date Resolved Date Pain in joint, site unspecified 05/20/2006 10/03/2006 Sprain and strain of unspeci fied site of shoulder and upper arm 05/20/2006 10/03/2006 documented as of this encounter (statuses as of 11/29/2023) [address]11-2006 History of Past illness Narrative* Problem Noted Date Diagnosed Date Resolved Date Pain in joint, site unspecified 05/20/2006 10/03/2006 Sprain and strain of unspeci fied site of shoulder and upper arm 05/20/2006 10/03/2006 documented as of this encounter (statuses as of 12/02/2023) [address]11-2006 History of Past illness Narrative* Problem Noted Date Diagnosed Date Resolved Date Pain in joint, site unspecified 05/20/2006 10/03/2006 Sprain and strain of unspeci fied site of shoulder and upper arm 05/20/2006 10/03/2006 documented as of this encounter (statuses as of 12/04/2023) [address]11-2006 History of Past illness Narrative* Problem Noted Date Diagnosed Date Resolved Date Pain in joint, site unspecified 05/20/2006 10/03/2006 Sprain and strain of unspeci fied site of shoulder and upper arm 05/20/2006 10/03/2006 documented as of this encounter (statuses as of 12/09/2023) [address]-2006 History of Past illness Narrative* Problem Noted Date Diagnosed Date Resolved Date Pain in joint, site unspecified 05/20/2006 10/03/2006 Sprain and strain of unspeci fied site of shoulder and upper arm 05/20/2006 10/03/2006 documented as of this encounter (statuses as of 12/11/2023) [address]-2006 History of Past illness Narrative* Problem Noted Date Diagnosed Date Resolved Date Pain in joint, site unspecified 05/20/2006 10/03/2006 Sprain and strain of unspeci fied site of shoulder and upper arm 05/20/2006 10/03/2006 documented as of this encounter (statuses as of 12/13/2023) [address]11-2006 History of Past illness Narrative* Problem Noted Date Diagnosed Date Resolved Date Pain in joint, site unspecified 05/20/2006 10/03/2006 Sprain and strain of unspeci fied site of shoulder and upper arm 05/20/2006 10/03/2006 documented as of this encounter (statuses as of 12/16/2023) [address]-2006 History of Past illness Narrative* Problem Noted Date Diagnosed Date Resolved Date Pain in joint, site unspecified 05/20/2006 10/03/2006 Sprain and strain of unspeci fied site of shoulder and upper arm 05/20/2006 10/03/2006 documented as of this encounter (statuses as of 12/18/2023) [address]-2006 History of Past illness Narrative* Problem Noted Date Diagnosed Date Resolved Date Pain in joint, site unspecified 05/20/2006 10/03/2006 Sprain and strain of unspeci fied site of shoulder and upper arm 05/20/2006 10/03/2006 documented as of this encounter (statuses as of 12/20/2023) [address]-2006 History of Past illness Narrative* Problem Noted Date Diagnosed Date Resolved Date Pain in joint, site unspecified 05/20/2006 10/03/2006 Sprain and strain of unspeci fied site of shoulder and upper arm 05/20/2006 10/03/2006 documented as of this encounter (statuses as of 12/23/2023) [address]2006 History of Past illness Narrative* Problem Noted Date Diagnosed Date Resolved Date Pain in joint, site unspecified 05/20/2006 10/03/2006 Sprain and strain of unspeci fied site of shoulder and upper arm 05/20/2006 10/03/2006 documented as of this encounter (statuses as of 12/25/2023) [facility]2006 History of Past illness Narrative* Problem Noted Date Diagnosed Date Resolved Date Pain in joint, site unspecified 05/20/2006 10/03/2006 Sprain and strain of unspeci fied site of shoulder and upper arm 05/20/2006 10/03/2006 documented as of this encounter (statuses as of 12/27/2023) [facility] History of Past illness Narrative* Problem Noted Date Diagnosed Date Resolved Date Pain in joint, site unspecified 05/20/2006 10/03/2006 Sprain and strain of unspeci fied site of shoulder and upper arm 05/20/2006 10/03/2006 documented as of this encounter (statuses as of 12/30/2023) [facility] for [facility] Narrative* Chief Complaint 4 M FU AMYLOID EORDER/PRE PROCEDURE Reason for Visit Aortic root dilatati on Bicuspid aortic valve Cardiomyopathy Essential hypertension Pure hypercholesterolemia [facility] Work Phone: Chief complaint+Reason for visit Narrative* Chief Complaint 4 M FU AMYLOID EORDER/PRE PROCEDURE AROTIC STENOSIS AROTIC STENOSIS Reason for Visit Aortic root dilatati on Bicuspid aortic valve Cardiomyopathy Essential hypertension Pure hypercholesterolemia [facility] Work Phone: Discharge summary Author Zane Alvarado [facility] Note Date/Time December 10, 2024 9:27 am [facility] Physical Therapy [facility] [address] [place] [address]. [address] [place] [address] / REHABILITATION SERVICES DISCHARGE SUMMARY MR#: [id number] Acct: [id number] Name: MARTIN HENSON Rep #: [id number] 01 : 1955 69 From: Cert. IDANIA MagañaT, OCS Referring Dr.: ALEXANRDA Mathews Status: REG RCR Insurance: [employer] [facility] SELF PAY INSURANCE Discharge Summary D/C summary: [...] please feel free to call me at [phone]. Thank you for the referral of thispatient. Sincerely, Zane Alvarado PT, Cert MDT, OCS Balance/Gait/Functional tests Balance/Special Test Scores Quick DASH Score: 9.0900 Improvement % Improvement: 80 <Electronically signed by Doug Goldberg PT. HESHAM, OCS> 12/10/2427 CC: ALEXANDRA Mathews ~ ALEN Signed [facility] Work Phone: Evaluation noteNo assessment information available [facility] Work Phone: Evaluation note* Diagnosis Onset Date Resolution Status Fungal dermatitis acute Aortic root dilatation chron ic Bicuspid aortic valve chroni c Cardiomyopathy chronic Essential hypertension chron ic Pure hypercholesterolemia ch ronic [facility] Work Phone: Evaluation note* Diagnosis Onset Date Resolution Status Aortic root dilatation chron ic Bicuspid aortic valve chroni c Cardiomyopathy chronic Essential hypertension chron ic Pure hypercholesterolemia [facility] Work Phone: Evaluation note* Diagnosis Aortic valve [...] [facility] Pre-operative cardiovascular examination- Primary Nonrheumatic [...] Unspecified essential hypertension [facility] Diagnosis S/P AVR (aortic valve replacement)- Primary Heart valve replaced by other means S/P ascending aortic aneurysm repair Other postprocedural status [facility] Diagnosis Surgery follow-up Follow-up examination, [...] by other means [facility] Diagnosis S/P AVR (aortic valve replacement)- Primary Heart valve replaced by other means [facility] Diagnosis S/P AVR (aortic valve [...] [facility] Diagnosis Vasculopathy Unspecified circulatory system disorder Adverse effect of treatment, initial encounter [facility] Diagnosis Essential hypertension- Primary Unspecified essential hypertension S/P AVR (aortic valve replacement) and aortoplasty Heart valve replaced by other means Chronic heart failure with preserved ejection fraction (HCC) HOCM (hypertrophic obstructive cardiomyopathy) (HCC) Hypertrophic obstructive cardiomyopathy [facility] Diagnosis HOCM (hypertrophic obstructive cardiomyopathy) (HCC)- Primary Hypertrophic obstructive cardiomyopathy [facility] Diagnosis Primary hypertension- Primary Unspecified essential hypertension Aortic root dilation (HCC) Thoracic aortic ectasia Encounter for preprocedural cardiovascular examination Pre-operative cardiovascular examination History of aortic valve replacement Heart valve replaced by other means [facility] Diagnosis HOCM (hypertrophic obstructive cardiomyopathy) (HCC) Hypertrophic obstructive cardiomyopathy documented in this encounter [facility] note* Diagnosis HOCM (hypertrophic obstructive cardiomyopathy) (HCC)- Primary Hypertrophic obstructive cardiomyopathy documented in this encounter [facility] note* Diagnosis Primary hypertension Unspecified essential hypertension documented in this encounter [facility] note* Diagnosis NSVT (nonsustained ventricular tachycardia) (HCC)- Primary Paroxysmal ventricular tachycardia HOCM (hypertrophic obstructive cardiomyopathy) (HCC) Hypertrophic obstructive cardiomyopathy documented in this encounter [facility] note* Diagnosis HOCM (hypertrophic obstructive cardiomyopathy) (HCC) Hypertrophic obstructive cardiomyopathy NSVT (nonsustained ventricular tachycardia) (HCC) Paroxysmal ventricular tachycardia documented in this encounter [facility] note* Diagnosis HOCM (hypertrophic obstructive cardiomyopathy) (HCC) Hypertrophic obstructive cardiomyopathy documented in this encounter [facility] for referral (narrative)* Outpatient Procedure (Routine) - Authorized Specialty Diagnoses / Procedures Referred By Maria D t Referred To [facility] Diagnoses Surgery follow-up Procedures ECG COMPLETE ECG ROUTINE ECG W/LEAST 12 LDS W/I&R Usha Navarro MD [address] [place] [address] [address] Referral ID Status Reason Start Date Expiration Date Visits Requested Visits Authorized [id number] Authorized Auto-Generat ed Referral 3 08/01/2024 1 1 [facility] for referral (narrative)* Outpatient Procedure (Routine) - Pending Review Specialty Diagnoses / Procedures Referred By Contac t Referred To Contact [facility] Diagnoses Nonrheumatic aortic valve stenosis Primary hypertension Procedures ECHO ECHO TTHRC R-T 2D W/WOM-MODE COMPL SPEC&COLR Deena Melendez MD [address] [place] [address] [address] Referral ID Status Reason Start Date Expiration Date Visits Requested Visits Authorized [id number] Pending Review Auto-Generat ed Referral 3 08/02/2024 1 1 * Outpatient Procedure (Routine) - Authorized Specialty Diagnoses / Procedures Referred By Contac t Referred To Contact [facility] Diagnoses Nonrheumatic aortic valve stenosis Primary hypertension Procedures ECG COMPLETE ECG ROUTINE ECG W/LEAST 12 LDS W/I&R Deena Francois MD [address] [place] [address] [place] [address] Referral ID Status Reason Start Date Expiration Date Visits Requested Visits Authorized [id number] Authorized Auto-Generat ed Referral 3 08/02/2024 1 1 [facility] for referral (narrative)* Outpatient Procedure (Routine) - Authorized Specialty Diagnoses / Procedures Referred By Contac t Referred To Contact [facility] Diagnoses Essential hypertension S/P AVR (aortic valve replacement) and aortoplasty Chronic heart failure with preserved ejection fraction (HCC) HOCM (hypertrophic obstructive cardiomyopathy) ([facility]) Procedures ECHO ECHO TTHRC R-T 2D W/WOM-MODE COMPL SPEC&COLR D Deena Francois MD [address] [id number] [address] [address] Referral ID Status Reason Start Date Expiration Date Visits Requested Visits Authorized [id number] Authorized Auto-Generat ed Referral 01/08/2024 01/07/2025 1 1 * Outpatient Procedure (Routine) - Authorized Specialty Diagnoses / Procedures Referred By Contac t Referred To Contact [facility] Diagnoses Essential hypertension S/P AVR (aortic valve replacement) and aortoplasty Chronic heart failure with preserved ejection fraction (HCC) HOCM (hypertrophic obstructive cardiomyopathy) (HCC) Procedures ECG COMPLETE ECG ROUTINE ECG W/LEAST 12 LDS W/I&R Deena Francois MD [address] [place] [address] [facility] [address] [address] Referral ID Status Reason Start Date Expiration Date Visits Requested Visits Authorized [id number] Authorized Auto-Generat ed Referral 01/08/2024 01/07/2025 1 1 * Transition of Care (Routine) - Ref Not Required Specialty Diagnoses / Procedures Referred By Maria D t Referred To Contact [facility] Procedures CARDIOVASCULAR MEDICINE [place] [address] [place] [address] [facility] [address] [address] Referral ID Status Reason Start Date Expiration Date Visits Requested Visits Authorized [id number] Ref Not Required PCP Requested Referral 02/08/2024 01/07/2025 1 1 [facility] for referral (narrative)* Outpatient Procedure (Routine) - New Request Specialty Diagnoses / Procedures Referred By Maria D rajan Referred To Contact [facility] Diagnoses HOCM (hypertrophic obstructive cardiomyopathy) (HCC) Procedures STRESS ECHO TREADMILL ECHO TTHRC R-T 2D W/WO M-MODE COMPLETE REST&ST Deena Francois MD [address] [place] [address] [facility] [address] [address] Referral ID Status Reason Start Date Expiration Date Visits Requested Visits Authorized [id number] New Request Auto-Generat ed Referral 03/27/2024 03/27/2025 1 1 [facility] for referral (narrative)* Outpatient Procedure (Routine) - Closed Specialty Diagnoses / Procedures Referred By Contac t Referred To Contact [facility] Diagnoses HOCM (hypertrophic obstructive cardiomyopathy) (HCC) Procedures STRESS ECHO TREADMILL ECHO TTHRC R-T 2D W/WO M-MODE COMPLETE REST&ST Deena Francois MD [address] [place] [address] [facility] [address] [address] Referral ID Status Reason Start Date Expiration Date V isits Requested Visits Authorized [id number] Closed Auto-Generate d Referral 04/02/2024 09/08/2024 1 1 [facility] for referral (narrative)* Outpatient Procedure (Routine) - Authorized Specialty Diagnoses / Procedures Referred By Contac t Referred To Contact [facility] Diagnoses NSVT (nonsustained ventricular tachycardia) (HCC) HOCM (hypertrophic obstructive cardiomyopathy) (HCC) Procedures ECG COMPLETE ECG ROUTINE ECG W/LEAST 12 LDS W/I&R Edmund Kamara MD [address] [place] [address] [facility] [address] [address] Referral ID Status Reason Start Date Expiration Date Visits Requested Visits Authorized [id number] Authorized Auto-Generat ed Referral 06/22/2025 1 1 [facility] for referral (narrative)No reason for referral information [facility]: [facility] N[facility]* Outpatient Procedure (Routine) - Closed Specialty Diagnoses / Procedures Referred By Contac t Referred To Contact [facility] Diagnoses HOCM (hypertrophic obstructive cardiomyopathy) (HCC) Procedures STRESS ECHO TREADMILL ECHO TTHRC R-T 2D W/WO M-MODE COMPLETE REST&ST Deena Francois MD [address] [place] [address] [facility] [address] [address] Referral ID Status Reason Start Date Expiration Date V isits Requested Visits Authorized [id number] Closed Auto-Generate d Referral 04/02/2024 09/08/2024 1 1 [facility] Summary Purpose Family History Relationship Condition Age [...] No April 16, 2017 3:49pm Power of Automatic Brine 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 No April 16 3:49pm Advance Directive Response Recorded Date/ Time Advance Directives No February 23 7:17am Living Will No April 16, 2017 2:49pm Power of Automatic Brine 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 No April 16 2:49pm Advance Directive Response Recorded Date/ Time Advance Directives No June 10, 2023 7:54am Living Will No June 10 7:54am Power of Automatic Brine 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 No June 10 7:54am Advance Directive Response Recorded Date/ Time [...] Diagnoses / Procedures Referred By Maria D t Referred To Contact [facility] Diagnoses Aortic valve disorder Procedures MRA CHEST CARDIOVASCULAR WO IVCON MRA CHEST WITH OR W/O CONT Usha Navarro MD [address] [place] [address] [facility] [place] [address] Referral ID Status Reason Start Date Expiration Date Visits Requested Visits Authorized [id number] Pending Review Auto-Generat ed Referral 3 08/21/2024 1 1 Specialty Diagnoses / Procedures Referred By Contac t Referred To Contact Procedures CARDIOVASCULAR MEDICINE OP FOLLOW UP APPT ORDER Deena Francois MD [address] [place] [address] Referral ID Status Reason Start Date Expiration Date Visits Requested Visits Authorized [id number] Ref Not Required PCP Requested Referral 3 07/23/2024 1 1 Specialty Diagnoses / Procedures Referred By Contac t Referred To Contact CT IMAGING Diagnoses Vasculopathy Adverse effect of treatment, initial encounter Procedures CTA CHEST (GATED) W IVCON CT ANGIOGRAPHY CHEST W/CONTRAST/NONCONTRAST Deena Francois MD [address] [place] [address] [facility] [place] [address] Referral ID Status Reason Start Date Expiration Date Visits Requested Visits Authorized [id number] Authorized Auto-Generat ed Referral 12/18/2023 10/17/2024 1 1 Specialty Diagnoses / Procedures Referred By Contac t Referred [facility] Diagnoses Hypertrophic cardiomyopathy (HCC) S/P AVR (aortic valve replacement) and aortoplasty Procedures ECHO ECHO TTHRC R-T 2D W/WOM-MODE COMPL SPEC&COLR D Deena Francois MD [address] [place] [address] [facility] [place] [address] [place] [address] Referral ID Status Reason Start Date Expiration Date Visits Requested Visits Authorized [id number] Authorized Auto-Generat ed Referral 12/18/2023 09/17/2024 1 1 Referral ID Status Reason Start Date Expiration Date Visits Requested Visits Authorized [id number] Ref Not Required PCP Requested Referral 12/18/2023 09/17/2024 1 1 Specialty Diagnoses / Procedures Referred By Contac t Referred To Contact Diagnoses Hypertrophic cardiomyopathy (HCC) Aortic root dilatation (HCC) Obesity, Class I, BMI 30-34.9 Procedures REFERRAL TO CARDIAC REHAB OFFICE/OUTPATIENT NEW HIGH MDM 60 [place] [address] [place] [address] Referral ID Status Reason Start Date Expiration Date Visits Requested Visits Authorized [id number] Authorized PCP Requested Referral 09/18/2023 12/17/2023 1 1 Specialty Diagnoses / Procedures Referred By Contac t Referred To Contact CT IMAGING Diagnoses Encounter for preprocedural cardiovascular examination Procedures CTA CHEST (GATED) W IVCON CT ANGIOGRAPHY CHEST W/CONTRAST/[place] [address] [place] [address] [address] [place] [address] Referral ID Status Reason Start Date Expiration Date Visits Requested Visits Authorized [id number] New Request Auto-Generat ed Referral 03/25/2024 04/24/2025 1 1 Specialty Diagnoses / Procedures Referred By Contac t Referred To Contact [facility] Diagnoses Aortic root dilation (HCC) History of aortic valve replacement Procedures ECHO ECHO TTHRC R-T 2D W/WOM-MODE COMPL SPEC&[place] [address] [place] [address] [facility] [address] [address] Referral ID Status Reason Start Date Expiration Date Visits Requested Visits Authorized [id number] New Request Auto-Generat ed Referral 03/25/2024 03/25/2025 1 1 Specialty Diagnoses / Procedures Referred By Contac t Referred To Contact [facility] Diagnoses Aortic root dilation (HCC) History of aortic valve replacement Procedures ECG COMPLETE ECG ROUTINE ECG W/LEAST 12 LDS W/I&R Deena Francois MD [address] [place] [address] [facility] [address] [address] Referral ID Status Reason Start Date Expiration Date Visits Requested Visits Authorized [id number] New Request Auto-Generat ed Referral 03/25/2024 03/25/2025 1 1 Specialty Diagnoses / Procedures Referred By Contac t Referred To Contact [facility] Procedures CARDIOVASCULAR MEDICINE OP FOLLOW UP APPT ORDER Deena Francois MD [address] [place] [address] [facility] [address] [address] Referral ID Status Reason Start Date Expiration Date Visits Requested Visits Authorized [id number] Ref Not Required PCP Requested Referral 12/25/2024 03/25/2025 1 1 Additional Source Comments (unrecognized sect ion and content) No Status Records FoundNo Status Records FoundNo Status Records FoundNo Status Records FoundNo Status Records Found INFORMATION SOURCE (unrecogn ized section and content) DATE CREATED AUTHOR 11/02/2019 [facility] DATE CREATED AUTHOR AUTHOR'S ORGANIZ ATION 06/29/2023 [facility] DATE CREATED AUTHOR AUTHOR'S ORGANIZ ATION 04/28/2024 [facility] DATE CREATED AUTHOR AUTHOR'S ORGANIZ ATION 08/29/2024 [facility] DATE CREATED AUTHOR AUTHOR'S ORGANIZ ATION 12/25/2024 [facility] Goals (unrecognized section and content) Goals [...] or prosecute any alcohol or drug abuse patient.[facility] AdministrationIn the event this information is protected by the Federal Confidentiality of Alcohol and Drug Abuse Patient Records regulations: The Federal rules restrict any use of the information to criminally investigate or prosecute any alcohol or drug abuse patient.[facility] AdministrationIn the event this information is protected by the Federal Confidentiality of Alcohol and Drug Abuse Patient Records regulations: The Federal rules restrict any use of the information to criminally investigate or prosecute any alcohol or drug abuse patient.[facility] AdministrationIn the event this information is protected by the Federal Confidentiality of Alcohol and Drug Abuse Patient Records regulations: The Federal rules restrict any use of the information to criminally investigate or prosecute any alcohol or drug abuse patient.[facility] AdministrationIn the event this information is protected by the Federal Confidentiality of Alcohol and Drug Abuse Patient Records regulations: The Federal rules restrict any use of the information to criminally investigate or prosecute any alcohol or drug abuse patient.[facility] AdministrationIn the event this information is protected by the Federal Confidentiality of Alcohol and Drug Abuse Patient Records regulations: The Federal rules restrict any use of the information to criminally investigate or prosecute any alcohol or drug abuse patient.[facility] AdministrationIn the event this information is protected by the Federal Confidentiality of Alcohol and Drug Abuse Patient Records regulations: The Federal rules restrict any use of the information to criminally investigate or prosecute any alcohol or drug abuse patient.[facility] AdministrationIn the event this information is protected by the Federal Confidentiality of Alcohol and Drug Abuse Patient Records regulations: The Federal rules restrict any use of the information to criminally investigate or prosecute any alcohol or drug abuse patient.[facility] AdministrationIn the event this information is protected by the Federal Confidentiality of Alcohol and Drug Abuse Patient Records regulations: The Federal rules restrict any use of the information to criminally investigate or prosecute any alcohol or drug abuse patient.[facility] AdministrationIn the event this information is protected by the Federal Confidentiality of Alcohol and Drug Abuse Patient Records regulations: The Federal rules restrict any use of the information to criminally investigate or prosecute any alcohol or drug abuse patient.[facility] AdministrationIn the event this information is protected by the Federal Confidentiality of Alcohol and Drug Abuse Patient Records regulations: The Federal rules restrict any use of the information to criminally investigate or prosecute any alcohol or drug abuse patient.[facility] AdministrationIn the event this information is protected by the Federal Confidentiality of Alcohol and Drug Abuse Patient Records regulations: The Federal rules restrict any use of the information to criminally investigate or prosecute any alcohol or drug abuse patient.[facility] AdministrationIn the event this information is protected by the Federal Confidentiality of Alcohol and Drug Abuse Patient Records regulations: The Federal rules restrict any use of the information to criminally investigate or prosecute any alcohol or drug abuse patient.[facility] AdministrationIn the event this information is protected by the Federal Confidentiality of Alcohol and Drug Abuse Patient Records regulations: The Federal rules restrict any use of the information to criminally investigate or prosecute any alcohol or drug abuse patient.[facility] AdministrationIn the event this information is protected by the Federal Confidentiality of Alcohol and Drug Abuse Patient Records regulations: The Federal rules restrict any use of the information to criminally investigate or prosecute any alcohol or drug abuse patient.[facility] AdministrationIn the event this information is protected by the Federal Confidentiality of Alcohol and Drug Abuse Patient Records regulations: The Federal rules restrict any use of the information to criminally investigate or prosecute any alcohol or drug abuse patient.[facility] AdministrationIn the event this information is protected by the Federal Confidentiality of Alcohol and Drug Abuse Patient Records regulations: The Federal rules restrict any use of the information to criminally investigate or prosecute any alcohol or drug abuse patient.[facility] AdministrationIn the event this information is protected by the Federal Confidentiality of Alcohol and Drug Abuse Patient Records regulations: The Federal rules restrict any use of the information to criminally investigate or prosecute any alcohol or drug abuse patient.[facility] AdministrationIn the event this information is protected by the Federal Confidentiality of Alcohol and Drug Abuse Patient Records regulations: The Federal rules restrict any use of the information to criminally investigate or prosecute any alcohol or drug abuse patient.[facility] AdministrationIn the event this information is protected by the Federal Confidentiality of Alcohol and Drug Abuse Patient Records regulations: The Federal rules restrict any use of the information to criminally investigate or prosecute any alcohol or drug abuse patient.[facility] AdministrationIn the event this information is protected by the Federal Confidentiality of Alcohol and Drug Abuse Patient Records regulations: The Federal rules restrict any use of the information to criminally investigate or prosecute any alcohol or drug abuse patient.[facility] AdministrationIn the event this information is protected by the Federal Confidentiality of Alcohol and Drug Abuse Patient Records regulations: The Federal rules restrict any use of the information to criminally investigate or prosecute any alcohol or drug abuse patient.[facility] AdministrationIn the event this information is protected by the Federal Confidentiality of Alcohol and Drug Abuse Patient Records regulations: The Federal rules restrict any use of the information to criminally investigate or prosecute any alcohol or drug abuse patient.[facility] AdministrationIn the event this information is protected by the Federal Confidentiality of Alcohol and Drug Abuse Patient Records regulations: The Federal rules restrict any use of the information to criminally investigate or prosecute any alcohol or drug abuse patient.[facility] AdministrationIn the event this information is protected by the Federal Confidentiality of Alcohol and Drug Abuse Patient Records regulations: The Federal rules restrict any use of the information to criminally investigate or prosecute any alcohol or drug abuse patient.[facility] AdministrationIn the event this information is protected by the Federal Confidentiality of Alcohol and Drug Abuse Patient Records regulations: The Federal rules restrict any use of the information to criminally investigate or prosecute any alcohol or drug abuse patient.[facility] AdministrationIn the event this information is protected by the Federal Confidentiality of Alcohol and Drug Abuse Patient Records regulations: The Federal rules restrict any use of the information to criminally investigate or prosecute any alcohol or drug abuse patient.[facility] AdministrationIn the event this information is protected by the Federal Confidentiality of Alcohol and Drug Abuse Patient Records regulations: The Federal rules restrict any use of the information to criminally investigate or prosecute any alcohol or drug abuse patient.[facility] AdministrationIn the event this information is protected by the Federal Confidentiality of Alcohol and Drug Abuse Patient Records regulations: The Federal rules restrict any use of the information to criminally investigate or prosecute any alcohol or drug abuse patient.[facility] AdministrationIn the event this information is protected by the Federal Confidentiality of Alcohol and Drug Abuse Patient Records regulations: The Federal rules restrict any use of the information to criminally investigate or prosecute any alcohol or drug abuse patient.[facility] AdministrationIn the event this information is protected by the Federal Confidentiality of Alcohol and Drug Abuse Patient Records regulations: The Federal rules restrict any use of the information to criminally investigate or prosecute any alcohol or drug abuse patient.[facility] AdministrationIn the event this information is protected by the Federal Confidentiality of Alcohol and Drug Abuse Patient Records regulations: The Federal rules restrict any use of the information to criminally investigate or prosecute any alcohol or drug abuse patient.[facility] AdministrationIn the event this information is protected by the Federal Confidentiality of Alcohol and Drug Abuse Patient Records regulations: The Federal rules restrict any use of the information to criminally investigate or prosecute any alcohol or drug abuse patient.[facility] AdministrationIn the event this information is protected by the Federal Confidentiality of Alcohol and Drug Abuse Patient Records regulations: The Federal rules restrict any use of the information to criminally investigate or prosecute any alcohol or drug abuse patient.[facility] AdministrationIn the event this information is protected by the Federal Confidentiality of Alcohol and Drug Abuse Patient Records regulations: The Federal rules restrict any use of the information to criminally investigate or prosecute any alcohol or drug abuse patient.[facility] AdministrationIn the event this information is protected by the Federal Confidentiality of Alcohol and Drug Abuse Patient Records regulations: The Federal rules restrict any use of the information to criminally investigate or prosecute any alcohol or drug abuse patient.[facility] AdministrationIn the event this information is protected by the Federal Confidentiality of Alcohol and Drug Abuse Patient Records regulations: The Federal rules restrict any use of the information to criminally investigate or prosecute any alcohol or drug abuse patient.[facility] AdministrationIn the event this information is protected by the Federal Confidentiality of Alcohol and Drug Abuse Patient Records regulations: The Federal rules restrict any use of the information to criminally investigate or prosecute any alcohol or drug abuse patient.[facility] AdministrationIn the event this information is protected by the Federal Confidentiality of Alcohol and Drug Abuse Patient Records regulations: The Federal rules restrict any use of the information to criminally investigate or prosecute any alcohol or drug abuse patient.[facility] AdministrationIn the event this information is protected by the Federal Confidentiality of Alcohol and Drug Abuse Patient Records regulations: The Federal rules restrict any use of the information to criminally investigate or prosecute any alcohol or drug abuse patient.[facility] AdministrationIn the event this information is protected by the Federal Confidentiality of Alcohol and Drug Abuse Patient Records regulations: The Federal rules restrict any use of the information to criminally investigate or prosecute any alcohol or drug abuse patient.[facility] AdministrationIn the event this information is protected by the Federal Confidentiality of Alcohol and Drug Abuse Patient Records regulations: The Federal rules restrict any use of the information to criminally investigate or prosecute any alcohol or drug abuse patient.[facility] AdministrationIn the event this information is protected by the Federal Confidentiality of Alcohol and Drug Abuse Patient Records regulations: The Federal rules restrict any use of the information to criminally investigate or prosecute any alcohol or drug abuse patient.[facility] AdministrationIn the event this information is protected by the Federal Confidentiality of Alcohol and Drug Abuse Patient Records regulations: The Federal rules restrict any use of the information to criminally investigate or prosecute any alcohol or drug abuse patient.[facility] the event this information is protected by the Federal Confidentiality of Alcohol and Drug Abuse Patient Records regulations: The Federal rules restrict any use of the information to criminally investigate or prosecute any alcohol or drug abuse patient.[facility] AdministrationIn the event this information is protected by the Federal Confidentiality of Alcohol and Drug Abuse Patient Records regulations: The Federal rules restrict any use of the information to criminally investigate or prosecute any alcohol or drug abuse patient.[facility] AdministrationIn the event this information is protected by the Federal Confidentiality of Alcohol and Drug Abuse Patient Records regulations: The Federal rules restrict any use of the information to criminally investigate or prosecute any alcohol or drug abuse patient.[facility] AdministrationIn the event this information is protected by the Federal Confidentiality of Alcohol and Drug Abuse Patient Records regulations: The Federal rules restrict any use of the information to criminally investigate or prosecute any alcohol or drug abuse patient.[facility] AdministrationIn the event this information is protected by the Federal Confidentiality of Alcohol and Drug Abuse Patient Records regulations: The Federal rules restrict any use of the information to criminally investigate or prosecute any alcohol or drug abuse patient.[facility] AdministrationIn the event this information is protected by the Federal Confidentiality of Alcohol and Drug Abuse Patient Records regulations: The Federal rules restrict any use of the information to criminally investigate or prosecute any alcohol or drug abuse patient.[facility] AdministrationIn the event this information is protected by the Federal Confidentiality of Alcohol and Drug Abuse Patient Records regulations: The Federal rules restrict any use of the information to criminally investigate or prosecute any alcohol or drug abuse patient.[facility] AdministrationIn the event this information is protected by the Federal Confidentiality of Alcohol and Drug Abuse Patient Records regulations: The Federal rules restrict any use of the information to criminally investigate or prosecute any alcohol or drug abuse patient.[facility] AdministrationIn the event this information is protected by the Federal Confidentiality of Alcohol and Drug Abuse Patient Records regulations: The Federal rules restrict any use of the information to criminally investigate or prosecute any alcohol or drug abuse patient.[facility] AdministrationIn the event this information is protected by the Federal Confidentiality of Alcohol and Drug Abuse Patient Records regulations: The Federal rules restrict any use of the information to criminally investigate or prosecute any alcohol or drug abuse patient.[facility] AdministrationIn the event this information is protected by the Federal Confidentiality of Alcohol and Drug Abuse Patient Records regulations: The Federal rules restrict any use of the information to criminally investigate or prosecute any alcohol or drug abuse patient.[facility] AdministrationIn the event this information is protected by the Federal Confidentiality of Alcohol and Drug Abuse Patient Records regulations: The Federal rules restrict any use of the information to criminally investigate or prosecute any alcohol or drug abuse patient.[facility] AdministrationIn the event this information is protected by the Federal Confidentiality of Alcohol and Drug Abuse Patient Records regulations: The Federal rules restrict any use of the information to criminally investigate or prosecute any alcohol or drug abuse patient.[facility] AdministrationIn the event this information is protected by the Federal Confidentiality of Alcohol and Drug Abuse Patient Records regulations: The Federal rules restrict any use of the information to criminally investigate or prosecute any alcohol or drug abuse patient.[facility] AdministrationIn the event this information is protected by the Federal Confidentiality of Alcohol and Drug Abuse Patient Records regulations: The Federal rules restrict any use of the information to criminally investigate or prosecute any alcohol or drug abuse patient.[facility] AdministrationIn the event this information is protected by the Federal Confidentiality of Alcohol and Drug Abuse Patient Records regulations: The Federal rules restrict any use of the information to criminally investigate or prosecute any alcohol or drug abuse patient.[facility] AdministrationIn the event this information is protected by the Federal Confidentiality of Alcohol and Drug Abuse Patient Records regulations: The Federal rules restrict any use of the information to criminally investigate or prosecute any alcohol or drug abuse patient.[facility] AdministrationIn the event this information is protected by the Federal Confidentiality of Alcohol and Drug Abuse Patient Records regulations: The Federal rules restrict any use of the information to criminally investigate or prosecute any alcohol or drug abuse patient.[facility] AdministrationIn the event this information is protected by the Federal Confidentiality of Alcohol and Drug Abuse Patient Records regulations: The Federal rules restrict any use of the information to criminally investigate or prosecute any alcohol or drug abuse patient.[facility] AdministrationIn the event this information is protected by the Federal Confidentiality of Alcohol and Drug Abuse Patient Records regulations: The Federal rules restrict any use of the information to criminally investigate or prosecute any alcohol or drug abuse patient.[facility] AdministrationIn the event this information is protected by the Federal Confidentiality of Alcohol and Drug Abuse Patient Records regulations: The Federal rules restrict any use of the information to criminally investigate or prosecute any alcohol or drug abuse patient.[facility] AdministrationIn the event this information is protected by the Federal Confidentiality of Alcohol and Drug Abuse Patient Records regulations: The Federal rules restrict any use of the information to criminally investigate or prosecute any alcohol or drug abuse patient.[facility] AdministrationIn the event this information is protected by the Federal Confidentiality of Alcohol and Drug Abuse Patient Records regulations: The Federal rules restrict any use of the information to criminally investigate or prosecute any alcohol or drug abuse patient.[facility] AdministrationIn the event this information is protected by the Federal Confidentiality of Alcohol and Drug Abuse Patient Records regulations: The Federal rules restrict any use of the information to criminally investigate or prosecute any alcohol or drug abuse patient.[facility] AdministrationIn the event this information is protected by the Federal Confidentiality of Alcohol and Drug Abuse Patient Records regulations: The Federal rules restrict any use of the information to criminally investigate or prosecute any alcohol or drug abuse patient.[facility] AdministrationIn the event this information is protected by the Federal Confidentiality of Alcohol and Drug Abuse Patient Records regulations: The Federal rules restrict any use of the information to criminally investigate or prosecute any alcohol or drug abuse patient.[facility] AdministrationIn the event this information is protected by the Federal Confidentiality of Alcohol and Drug Abuse Patient Records regulations: The Federal rules restrict any use of the information to criminally investigate or prosecute any alcohol or drug abuse patient.[facility] AdministrationIn the event this information is protected by the Federal Confidentiality of Alcohol and Drug Abuse Patient Records regulations: The Federal rules restrict any use of the information to criminally investigate or prosecute any alcohol or drug abuse patient.[facility] AdministrationIn the event this information is protected by the Federal Confidentiality of Alcohol and Drug Abuse Patient Records regulations: The Federal rules restrict any use of the information to criminally investigate or prosecute any alcohol or drug abuse patient.[facility] AdministrationIn the event this information is protected by the Federal Confidentiality of Alcohol and Drug Abuse Patient Records regulations: The Federal rules restrict any use of the information to criminally investigate or prosecute any alcohol or drug abuse patient.[facility] Reason for Visit (unrecogniz ed section and content) Reason Comments Radio Main J1 Specialty Diagnoses / Procedures Referred By Contac t Referred To Contact ADMITTING Diagnoses Nonrheumatic aortic valve stenosis Pre-operative cardiovascular examination Aortic valve disorder Hypertrophic cardiomyopathy (HCC) Procedures RPLCMT PROST AORTIC VALVE OPEN XCP HOMOGRF/STENT AVR W/ CARDIOPULMONARY BYPASS W/ PROSTHETIC OTHER THAN HOMOGRAFT/ STENTLESS TISSUE VALVE [facility] [address] [place] [address] Referral ID Status Reason Start Date Expiration Date Visits Re quested Visits Authorized [id number] 1 1 Reason Comments Orders Reason Comments [employer] - Other Care Continuum Advisor Assessment Reason Comments Spirometry Specialty Diagnoses / Procedures Referred By Contac t Referred To Contact [facility] Diagnoses Nonrheumatic aortic valve stenosis Pre-operative cardiovascular examination Aortic valve disorder Hypertrophic cardiomyopathy (HCC) Procedures LUNG DIFFUSION CAPACITY (DLCO) DIFFUSING CAPACITY Usha Navarro MD [address] [place] [address] [facility] [place] [address] [place] [address] Referral ID Status Reason Start Date Expiration Date V isits Requested Visits Authorized [id number] Closed Auto-Generate d Referral 06/26/2023 07/25/2024 1 1 Specialty Diagnoses / Procedures Referred By [facility] Referred To Contact [facility] Diagnoses Nonrheumatic aortic valve stenosis Pre-operative cardiovascular examination Aortic valve disorder Hypertrophic cardiomyopathy (HCC) Procedures SPIROMETRY BASELINE ONLY SPMTRY W/VC EXPIRATORY PANCHITO W/WO MXML VOL VNTJ Usha Navarro MD [address] [place] [address] [facility] [place] [address] [place] [address] Referral ID Status Reason Start Date Expiration Date V isits Requested Visits Authorized [id number] Closed Auto-Generate d Referral 06/26/2023 07/25/2024 1 1 Specialty Diagnoses / Procedures Referred By Contac t Referred To Contact Cardiology Diagnoses Nonrheumatic aortic valve stenosis Pre-operative cardiovascular examination Aortic valve disorder Hypertrophic cardiomyopathy (HCC) Procedures CONSULT TO CARDIOLOGY OFFICE/OUTPATIENT [facility] MDM 60-74 MINUTES Usha Navarro MD [address] [place] [address] Referral ID Status Reason Start Date Expiration Date Visits Requested Visits Authorized [id number] Pending Review PCP Requested Referral 3 06/25/2024 1 1 Reason Comments Radiology MRI Specialty Diagnoses / Procedures Referred By Rahulac t Referred To Contact MR IMAGING Diagnoses Nonrheumatic aortic valve stenosis Pre-operative cardiovascular examination Aortic valve disorder Hypertrophic cardiomyopathy (HCC) Procedures MRI CARDIAC VELOCITY FLOW MAP CARDIAC MRI FOR VELOCITY FLOW MAPPING Usha Navarro MD [facility] [place] [address] [facility] [place] [address] Referral ID Status Reason Start Date Expiration Date V isits Requested Visits Authorized [id number] Closed Auto-Generate d Referral 06/26/2023 07/25/2024 1 1 Specialty Diagnoses / Procedures Referred By Maria D t Referred To Contact Cardiac Surg Diagnoses Nonrheumatic aortic valve stenosis Pre-operative cardiovascular examination Aortic valve disorder Hypertrophic cardiomyopathy (HCC) Procedures CARDIOTHORACIC PREOP EVALUATION OFFICE/OUTPATIENT [facility] MDM 60-74 MINUTES Usha Navarro MD [address] [place] [address] Referral ID Status Reason Start Date Expiration Date Visits Requested Visits Authorized [id number] Pending Review PCP Requested Referral 3 06/25/2024 [...] CT Specialty Diagnoses / Procedures Referred By Maria D t Referred To Contact CT IMAGING Diagnoses Vasculopathy Adverse effect of treatment, initial encounter Procedures CTA CHEST (GATED) W IVCON CT ANGIOGRAPHY CHEST W/CONTRAST/NONCONTRAST Deena Francois MD [id number] [facility] [place] [address] Referral ID Status Reason Start Date Expiration Date V isits Requested Visits Authorized [id number] Closed Auto-Generate d Referral 12/18/2023 10/17/2024 1 1 Specialty Diagnoses / Procedures Referred By Contac t Referred To Contact Procedures CARDIOVASCULAR MEDICINE OP FOLLOW UP APPT ORDER Deena Francois MD [address] [place] [address] Referral ID Status Reason Start Date Expiration Date Visits Requested Visits Authorized [id number] Ref Not Required PCP Requested Referral 12/18/2023 09/17/2024 1 1 Reason Onset Date Comments Refill Request 03/18/2024 Reason Comments Refill Request Specialty Diagnoses / Procedures Referred By Contac t Referred [facility] Procedures CARDIOVASCULAR MEDICINE OP FOLLOW UP APPT ORDER Deena Francois MD [address] [place] [address] [facility] [address] [address] Referral ID Status Reason Start Date Expiration Date Visits Requested Visits Authorized [id number] Ref Not Required PCP Requested Referral 02/08/2024 01/07/2025 1 1 Reason Comments Patient Update Reason Comments Reminder Call Reason Comments fax confirmation Reason Onset Date Comments Refill Request 04/23/2024 Specialty Diagnoses / Procedures Referred By Contac t Referred To Contact Diagnoses HOCM (hypertrophic obstructive cardiomyopathy) (HCC) NSVT (nonsustained ventricular tachycardia) (HCC) Procedures CONSULT TO ELECTROPHYSIOLOGY OFFICE/OUTPATIENT [facility] 60 MINUTES Deena Francois MD [address] [place] [address] Referral ID Status Reason Start Date Expiration Date V isits Requested Visits Authorized [id number] Closed PCP Requested Referral 06/05/2024 06/05/2025 1 1 Specialty Diagnoses / Procedures Referred By Contac t Referred To Contact Diagnoses HOCM (hypertrophic obstructive cardiomyopathy) (HCC) Procedures CONSULT TO MEDICAL GENETICS - CARDIOVASCULAR OFFICE/OUTPATIENT [facility] 60 MINUTES MEDICAL GENETICS COUNSELING EACH 30 MINUTES Deena Francois MD [address] [place] [address] [facility] Medicine [address] [address] Referral ID Status Reason Start Date Expiration Date V isits Requested Visits Authorized [id number] Closed PCP Requested Referral Auto-Generated Referral 04/30/2024 04/30/2025 1 1 Care Teams (unrecognized sec tion and content) Repeat Chief Relationship Specialty Start Date End Date Geoff Sainz MD PCP - General Family Medicine 02/16/11 Repeat Chief Relationship Specialty Start Date End Date Geoff Sainz MD PCP - General Family Medicine 02/16/11 Team Status: Active Member Role Status Dates Dr. Geoff Sainz MD Family Provider Active Abdiel Mathews AUXILIARY POWERPLANT OPERATOR-C Primary Care Provider Active Team Status: Inactive Member Role Status Dates Dr. Geoff Sainz MD Primary Care Provider, Referring Provider Active Singh GODINEZ PA Attending Provider Active Team Status: Inactive Member Role Status Dates Dr. Geoff Sainz MD Primary Care Provider, Referring Provider Active Saad GODINEZ, PA Attending Provider Active Team Status: Inactive Member Role Status Dates Singh GODINEZ PA Attending Provider, Referr ing Provider Active Abdiel Mathews AUXILIARY POWERPLANT OPERATOR-C Primary Care Provider Active Team Status: Inactive Member Role Status Dates Abdiel Mathews AUXILIARY POWERPLANT OPERATOR-C Primary Care Provider Active Singh GODINEZ PA Attending Provider, Referr ing Provider Active Team Status: Active Member Role Status Dates Abdiel Mathews AUXILIARY POWERPLANT OPERATOR-C Primary Care Provider Active Dr. Nitesh Jimenez MD Attending Provider, Referring Provider, Other Provider Active Team Status: Inactive Member Role Status Dates Abdiel Mathews AUXILIARY POWERPLANT OPERATOR-C Primary Care Provider Active Dr. Nitesh Jimenez MD Attending Provider, Referring Pro vider Active Repeat Chief Relationship Specialty Start Date End Date Abdiel Mathews NP [address] [place] [address] PCP - General Family Medicine 07/02/23 Nitesh Jimenez MD [address] [address] Referring Cardiology 06/25/23 Usha Navarro MD [address] [place] [address] Surgeon Cardiac Surg 06/25/23 Repeat Chief Relationship Specialty Start Date End Date Abdiel Mathews NP [address] [place] [address] PCP - General Family Medicine 07/02/23 Nitesh Jimenez MD [address] [facility] [address] [facility] [address] [place], [place] [address] Referring Cardiology 06/25/23 Usha Navarro MD [address] [place] [address] Surgeon Cardiac Surg 06/25/23 Repeat Chief Relationship Specialty Start Date End Date Abdiel Mathews NP [address] [place] [address] PCP - General Family Medicine 07/02/23 Nitesh Jimenez MD [address] [address] Referring Cardiology 06/25/23 Usha Navarro MD [address] [place] [address] Surgeon Cardiac Surg 06/25/23 Repeat Chief Relationship Specialty Start Date End Date Abdiel Mathews NP [address] [place] [address] [place] [address] PCP - General Family Medicine 07/02/23 Nitesh Jimenez MD [address] [facility] [address] [place] [address] Referring Cardiology 06/25/23 Usha Navarro MD [address] [place] [address] Surgeon Cardiac Surg 06/25/23 Deena Francois MD [address] [place] [address] Primary Staff Physician Cardiology 07/24/23 Repeat Chief Relationship Specialty Start Date End Date Abdiel Mathews NP [address] [place] [address] PCP - General Family Medicine 07/02/23 Nitesh Jimenez MD [address] [facility] [address] [place], [place] 477[address] Referring Cardiology 06/25/23 Usha Navarro MD [address] [place] [address] Surgeon Cardiac Surg 06/25/23 Deena Francois MD [address] [place] [address] Primary Staff Physician Cardiology 07/24/23 Repeat Chief Relationship Specialty Start Date End Date Abdiel Mathews NP [address] [place] [address] PCP - General Family Medicine 07/02/23 Nitesh Jimenez MD [address] [place] [address] Referring Cardiology 06/25/23 Usha Navarro MD [address] [place] [id number] Surgeon Cardiac Surg 06/25/23 Deena Francois MD [facility] [place] [id number] Primary Staff Physician Cardiology 07/24/23 Repeat Chief Relationship Specialty Start Date End Date Abdiel Mathews NP [address] [place] [address] PCP - General Family Medicine 07/02/23 Nitesh Jimenez MD 1761 [facility] [address] [address] Referring Cardiology 06/25/23 Usha Navarro MD [address] [place], [place] [address] Surgeon Cardiac Surg 06/25/23 Deena Francois MD [address] [place] [id number] Primary Staff Physician Cardiology 07/24/23 Repeat Chief Relationship Specialty Start Date End Date Abdiel Mathews NP [facility]7 [place] [address] PCP - General Family Medicine 07/02/23 Nitesh Jimenez MD [address] [address] Referring Cardiology 06/25/23 Usha Navarro MD [address] [place] [id number] Surgeon Cardiac Surg 06/25/23 Deena Francois MD [address] [place] [id number] Primary Staff Physician Cardiology 07/24/23 Repeat Chief Relationship Specialty Start Date End Date Abdiel Mathews NP [address] [place] [address] PCP - General Family Medicine 07/02/23 Nitesh Jimenez MD [address] [address] Referring Cardiology 06/25/23 Usha Navarro MD [address] [place], [place] [address] Surgeon Cardiac Surg 06/25/23 Deena Francois MD [address] [place] [id number] Primary Staff Physician Cardiology 07/24/23 Repeat Chief Relationship Specialty Start Date End Date Abdiel Mathews NP [address] [place] [id number] PCP - General Family Medicine 07/02/23 Nitesh Jimenez MD [address] [facility] [address] [address] [address] Referring Cardiology 06/25/23 Usha Navarro MD [address] [place] [id number] Surgeon Cardiac Surg 06/25/23 Deena Francois MD [address] [place] [phone] Primary Staff Physician Cardiology 07/24/23 Repeat Chief Relationship Specialty Start Date End Date Abdiel Mathews NP [address] [place] [address] PCP - General Family Medicine 07/02/23 Nitesh Jimenez MD [address] 977471 Referring Cardiology 06/25/23 Usha Navarro MD [address] [place] [address] Surgeon Cardiac Surg 06/25/23 Deena Francois MD [address] [place] [address] Primary Staff Physician Cardiology 07/24/23 Repeat Chief Relationship Specialty Start Date End Date Abdiel Mathews NP [address] [place], [place] 139041 PCP - General Family Medicine 07/02/23 Nitesh Jimenez MD 176 [facility] [address] [place], [place] [address] Referring Cardiology 06/25/23 Usha Navarro MD [address] [place], [place] 4967195 Surgeon Cardiac Surg 06/25/23 Deena Francois MD [address] [place], [place] [id number] Primary Staff Physician Cardiology 07/24/23 Repeat Chief Relationship Specialty Start Date End Date Abdiel Mathews NP [address] [place] [address] PCP - General Family Medicine 07/02/23 Nitesh Jimenez MD 176 [facility] [address] [place], [place] 802551 Referring Cardiology 06/25/23 Usha Navarro MD [address] [place] [address] Surgeon Cardiac Surg 06/25/23 Deena Francois MD [address] [place] [address] Primary Staff Physician Cardiology 07/24/23 Repeat Chief Relationship Specialty Start Date End Date Abdiel Mathews NP [address] [place], [place] 255631 PCP - General Family Medicine 07/02/23 Nitesh Jimenez MD [address] [facility] [address] [place] [address] Referring Cardiology 06/25/23 Usha Navarro MD [address] [place] [id number] Surgeon Cardiac Surg 06/25/23 Deena Francois MD [address] [place] [phone] Primary Staff Physician Cardiology 07/24/23 Repeat Chief Relationship Specialty Start Date End Date Abdiel Mathews NP [address] [place] [address] PCP - General Family Medicine 07/02/23 Nitesh Jimenez MD [address] [address] Referring Cardiology 06/25/23 Usha Navarro MD [facility] [place] [id number] Surgeon Cardiac Surg 06/25/23 Deena Francois MD [facility] [place] [phone] Primary Staff Physician Cardiology 07/24/23 Repeat Chief Relationship Specialty Start Date End Date Abdiel Mathews NP [address] [place] [address] PCP - General Family Medicine 07/02/23 Nitesh Jimenez MD [address] [address] Referring Cardiology 06/25/23 Usha Navarro MD [address] [place] [address] Surgeon Cardiac Surg 06/25/23 Deena Francois MD [address] [place] [address] Primary Staff Physician Cardiology 07/24/23 Repeat Chief Relationship Specialty Start Date End Date Abdiel Mathews NP [facility]7 [place] [id number] PCP - General Family Medicine 07/02/23 Nitesh Jimenez MD [address] [address] Referring Cardiology 06/25/23 Usha Navarro MD [facility] [place] [address] Surgeon Cardiac Surg 06/25/23 Deena Francois MD [facility] [place] [address] Primary Staff Physician Cardiology 07/24/23 Repeat Chief Relationship Specialty Start Date End Date Abdiel Mathews NP [address] [place] [address] PCP - General Family Medicine 07/02/23 Nitesh Jimenez MD [address] [address] Referring Cardiology 06/25/23 Usha Navarro MD [address] [place] [id number] Surgeon Cardiac Surg 06/25/23 Deena Francois MD [address] [place] [address] Primary Staff Physician Cardiology 07/24/23 Repeat Chief Relationship Specialty Start Date End Date Abdiel Mathews NP [facility]7 [place], [place] 370981 PCP - General Family Medicine 07/02/23 Nitesh Jimenez MD [address] [id number] Referring Cardiology 06/25/23 Usha Navarro MD [address] [place] [address] Surgeon Cardiac Surg 06/25/23 Deena Francois MD [address] [place] [address] Primary Staff Physician Cardiology 07/24/23 Repeat Chief Relationship Specialty Start Date End Date Abdiel Mathews NP [address] [place] [address] [id number] PCP - General Family Medicine 07/02/23 Nitesh Jimenez MD [address] [id number] Referring Cardiology 06/25/23 Usha Navarro MD [address] [place] [address] Surgeon Cardiac Surg 06/25/23 Deena Francois MD [address] [place] [address] Primary Staff Physician Cardiology 07/24/23 Repeat Chief Relationship Specialty Start Date End Date Abdiel Mathews NP [address] [facility] [place] [address] PCP - General Family Medicine 07/02/23 Nitesh Jimenez MD [address] [facility] [address] [place], [place] 39[address]71 Referring Cardiology 06/25/23 Usha Navarro MD [address] [place], [place] 4123995 Surgeon Cardiac Surg 06/25/23 Deena Francois MD [address] [place] [address] Primary Staff Physician Cardiology 07/24/23 Repeat Chief Relationship Specialty Start Date End Date Abdiel Mathews NP [address]77 [facility] [place] [address] PCP - General Family Medicine 07/02/23 Nitesh Jimenez MD [address] [facility] [address] [place], [place] 612261 Referring Cardiology 06/25/23 Usha Navarro MD [address] [place] [address] Surgeon Cardiac Surg 06/25/23 Deena Francois MD [address] [place], [place] [id number] Primary Staff Physician Cardiology 07/24/23 Repeat Chief Relationship Specialty Start Date End Date Abdiel Mathews NP [address] [facility] [place] [address] PCP - General Family Medicine 07/02/23 Nitesh Jimenez MD [address] 2433[address] Referring Cardiology 06/25/23 Usha Navarro MD [address] [place] [id number] Surgeon Cardiac Surg 06/25/23 Deena Francois MD [address] [place] [phone] Primary Staff Physician Cardiology 07/24/23 Repeat Chief Relationship Specialty Start Date End Date Abdiel Mathews NP [address]77 [facility] [place] [address] PCP - General Family Medicine 07/02/23 Nitesh Jimenez MD [address] [address] Referring Cardiology 06/25/23 Usha Navarro MD [address] [place] [address] Surgeon Cardiac Surg 06/25/23 Deena Francois MD [address] [place] [address] Primary Staff Physician Cardiology 07/24/23 Repeat Chief Relationship Specialty Start Date End Date Abdiel Mathews NP [address]77 [facility] [place] [address] PCP - General Family Medicine 07/02/23 Nitesh Jimenez MD [address] [address] Referring Cardiology 06/25/23 Usha Navarro MD [address] [place] [address] Surgeon Cardiac Surg 06/25/23 Deena Francois MD [facility] [place] [address] Primary Staff Physician Cardiology 07/24/23 Repeat Chief Relationship Specialty Start Date End Date Abdiel Mathews NP [address] [facility] [place] [address] PCP - General Family Medicine 07/02/23 Nitesh Jimenez MD [address] [address] Referring Cardiology 06/25/23 Usha Navarro MD [address] [place] [address] Surgeon Cardiac Surg 06/25/23 Deena Francois MD [address] [place] [address] Primary Staff Physician Cardiology 07/24/23 Repeat Chief Relationship Specialty Start Date End Date Abdiel Mathews NP [facility]7 [facility] [place] [address] PCP - General Family Medicine 07/02/23 Nitesh Jimenez MD 1761 [facility] [address]A [place] [address] Referring Cardiology 06/25/23 Usha Navarro MD [address] [place] [address] Surgeon Cardiac Surg 06/25/23 Deena Francois MD [address] [place] [address] Primary Staff Physician Cardiology 07/24/23 Repeat Chief Relationship Specialty Start Date End Date Abdiel Mathews NP [facility]7 [facility] [place] [address] PCP - General Family Medicine 07/02/23 Nitesh Jimenez MD [address] [address] Referring Cardiology 06/25/23 Usha Navarro MD [address] [place] [address] Surgeon Cardiac Surg 06/25/23 Deena Francois MD [address] [place] [address] Primary Staff Physician Cardiology 07/24/23 Repeat Chief Relationship Specialty Start Date End Date Abdiel Mathews NP [address] [facility] [place] [address] PCP - General Family Medicine 07/02/23 Nitesh Jimenez MD 1761 [facility] [address] [place] [address] Referring Cardiology 06/25/23 Usha Navarro MD [address] [place] [address] Surgeon Cardiac Surg 06/25/23 Deena Francois MD [address] [place] [address] Primary Staff Physician Cardiology 07/24/23 Repeat Chief Relationship Specialty Start Date End Date Abdiel Mathews NP [address]77 [facility] [place] [address] PCP - General Family Medicine 07/02/23 Nitesh Jimenez MD [address] [address] Referring Cardiology 06/25/23 Usha Navarro MD [address] [place] [address] Surgeon Cardiac Surg 06/25/23 Deena Francois MD [address] [place] [address] Primary Staff Physician Cardiology 07/24/23 Repeat Chief Relationship Specialty Start Date End Date Abdiel Mathews NP [address]77 [facility] [place] [address] PCP - General Family Medicine 07/02/23 Nitesh Jimenez MD 1761 [facility] [address] [place] [address] Referring Cardiology 06/25/23 Usha Navarro MD [address] [place] [address] Surgeon Cardiac Surg 06/25/23 Deena Francois MD [address] [place] [address] Primary Staff Physician Cardiology 07/24/23 Repeat Chief Relationship Specialty Start Date End Date Abdiel Mathews NP [facility]7 [facility] [place] [address] PCP - General Family Medicine 07/02/23 Nitesh Jimenez MD 1761 [facility] [address] [place] [address] Referring Cardiology 06/25/23 Usha Navarro MD [address] [place] [address] Surgeon Cardiac Surg 06/25/23 Deena Francois MD [address] [place] [address] Primary Staff Physician Cardiology 07/24/23 Repeat Chief Relationship Specialty Start Date End Date Abdiel Mathews NP [address] [place] [address] PCP - General Family Medicine 07/02/23 Nitesh Jimenez MD 1761 [facility] [address] [place] [address] Referring Cardiology 06/25/23 Usha Navarro MD [address] [place] [id number] Surgeon Cardiac Surg 06/25/23 Deena Francois MD [facility] [place] [phone] Primary Staff Physician Cardiology 07/24/23 Repeat Chief Relationship Specialty Start Date End Date Abdiel Mathews NP [address] [place] [address] PCP - General Family Medicine 07/02/23 Nitesh Jimenez MD [address] [address] Referring Cardiology 06/25/23 Usha Navarro MD [address] [place] [id number] Surgeon Cardiac Surg 06/25/23 Deena Francois MD [address] [place] [address] Primary Staff Physician Cardiology 07/24/23 Repeat Chief Relationship Specialty Start Date End Date Abdiel Mathews NP [address] [place] [address] PCP - General Family Medicine 07/02/23 Nitesh Jimenez MD [address] [facility] [address] [place] [address] Referring Cardiology 06/25/23 Usha Navarro MD [address] [place] [id number] Surgeon Cardiac Surg 06/25/23 [place] [address] [place] [address] Primary Staff Physician Cardiology 07/24/23 Repeat Chief Relationship Specialty Start Date End Date Abdiel Mathews NP [address] [place] [address] PCP - General Family Medicine 07/02/23 Nitesh Jimenez MD [address] [address] Referring Cardiology 06/25/23 Usha Navarro MD [address] [place] [address] Surgeon Cardiac Surg 06/25/23 Deena Francois MD [address] [place] [address] Primary Staff Physician Cardiology 07/24/23 Repeat Chief Relationship Specialty Start Date End Date Abdiel Mathews NP [facility]7 [place] [address] PCP - General Family Medicine 07/02/23 Nitesh Jimenez MD 1761 [facility] [address] [place], [place] 436181 Referring Cardiology 06/25/23 Usha Navarro MD [address] [place] [address] Surgeon Cardiac Surg 06/25/23 Deena Francois MD [address] [place] [address] Primary Staff Physician Cardiology 07/24/23 Repeat Chief Relationship Specialty Start Date End Date Abdiel Mathews NP [address] [place] [address] PCP - General Family Medicine 07/02/23 Nitesh Jimenez MD [address] 112341 Referring Cardiology 06/25/23 Usha Navarro MD [address] [place] [address] Surgeon Cardiac Surg 06/25/23 Deena Francois MD [address] [place] [address] Primary Staff Physician Cardiology 07/24/23 Repeat Chief Relationship Specialty Start Date End Date Abdiel Mathews NP [facility]7 [place], [place] [id number] PCP - General Family Medicine 07/02/23 Nitesh Jimenez MD [address] [facility] [address] [place] [address] Referring Cardiology 06/25/23 Usha Navarro MD [address] [place] [address] Surgeon Cardiac Surg 06/25/23 Deena Francois MD [address] [place] [address] Primary Staff Physician Cardiology 07/24/23 Repeat Chief Relationship Specialty Start Date End Date Abdiel Mathwes NP [address] [place] [address] PCP - General Family Medicine 07/02/23 Nitesh Jimenez MD 1761 [facility] [address] [place] [address] Referring Cardiology 06/25/23 Usha Navarro MD [address] [place] [address] Surgeon Cardiac Surg 06/25/23 Deena Francois MD [address] [place] [address] Primary Staff Physician Cardiology 07/24/23 Repeat Chief Relationship Specialty Start Date End Date Abdiel Mathews NP [address] [place] [address] PCP - General Family Medicine 07/02/23 Nitesh Jimenez MD [address] [place] [address] Referring Cardiology 06/25/23 Usha Navarro MD [address] [place] [address] Surgeon Cardiac Surg 06/25/23 Deena Francois MD [address] [place] [address] Primary Staff Physician Cardiology 07/24/23 Repeat Chief Relationship Specialty Start Date End Date Abdiel Mathews NP [address] [place] [address] PCP - General Family Medicine 07/02/23 Nitesh Jimenez MD [address] [place] [address] Referring Cardiology 06/25/23 Usha Navarro MD [address] [place] [address] Surgeon Cardiac Surg 06/25/23 Deena Francois MD [address] [place], [place] 1474195 Primary Staff Physician Cardiology 07/24/23 Repeat Chief Relationship Specialty Start Date End Date Abdiel Mathews NP [facility]7 [place] [address] PCP - General Family Medicine 07/02/23 Nitesh Jimenez MD [address] [address] Referring Cardiology 06/25/23 Usha Navarro MD [address] [place] [id number] Surgeon Cardiac Surg 06/25/23 Deena Francois MD [address] [place] [phone] Primary Staff Physician Cardiology 07/24/23 Repeat Chief Relationship Specialty Start Date End Date Abdiel Mathews NP [address] [place] [address] PCP - General Family Medicine 07/02/23 Nitesh Jimenez MD [address] [address] Referring Cardiology 06/25/23 Usha Navarro MD [address] [place] [id number] Surgeon Cardiac Surg 06/25/23 Deena Francois MD [address] [place] [phone] Primary Staff Physician Cardiology 07/24/23 Repeat Chief Relationship Specialty Start Date End Date Abdiel Mathews NP [address] [place] [address] PCP - General Family Medicine 07/02/23 Nitesh Jimenez MD [address] [id number] Referring Cardiology 06/25/23 Usha Navarro MD [address] [place] [address] Surgeon Cardiac Surg 06/25/23 Deena Francois MD [address] [place] [phone] Primary Staff Physician Cardiology 07/24/23 Repeat Chief Relationship Specialty Start Date End Date Abdiel Mathews NP [address] [place] [address] PCP - General Family Medicine 07/02/23 Nitesh Jimenez MD [address] [place] [address] 374481 Referring Cardiology 06/25/23 Usha Navarro MD [address] [place] [address] Surgeon Cardiac Surg 06/25/23 Deena Francois MD [address] [place] [phone] Primary Staff Physician Cardiology 07/24/23 Repeat Chief Relationship Specialty Start Date End Date Abdiel Mathews NP [address] [place] [address] [id number] PCP - General Family Medicine 07/02/23 Nitesh Jimenez MD [address] [facility] [address] [place], [place] [id number] Referring Cardiology 06/25/23 Usha Navarro MD [address] [place] [address] Surgeon Cardiac Surg 06/25/23 Deena Francois MD [address] [place], [place] [id number] Primary Staff Physician Cardiology 07/24/23 Repeat Chief Relationship Specialty Start Date End Date Abdiel Mathews NP [facility]7 [place] [address] PCP - General Family Medicine 07/02/23 Nitesh Jimenez MD [address] [address] Referring Cardiology 06/25/23 Usha Navarro MD [address] [place] [address] Surgeon Cardiac Surg 06/25/23 Deena Francois MD [address] [place] [address] Primary Staff Physician Cardiology 07/24/23 Repeat Chief Relationship Specialty Start Date End Date Abdiel Mathews NP [facility]7 [place], [place] 350931 PCP - General Family Medicine 07/02/23 Nitesh Jimenez MD [address] [facility] [address] [place] [address] Referring Cardiology 06/25/23 Usha Navarro MD [address] [place] [id number] Surgeon Cardiac Surg 06/25/23 Deena Francois MD [address] [place] [phone] Primary Staff Physician Cardiology 07/24/23 Repeat Chief Relationship Specialty Start Date End Date Abdiel Mathews NP [address] [place] [address] PCP - General Family Medicine 07/02/23 Nitesh Jimenez MD [address] [address] Referring Cardiology 06/25/23 Usha Navarro MD [address] [place] [id number] Surgeon Cardiac Surg 06/25/23 Deena Francois MD [address] [place] [phone] Primary Staff Physician Cardiology 07/24/23 Repeat Chief Relationship Specialty Start Date End Date Abdiel Mathews NP [address] [place] [address] PCP - General Family Medicine 07/02/23 Nitesh Jimenez MD 1761 [facility] [address] [place] [address] Referring Cardiology 06/25/23 Usha Navarro MD [address] [place] [id number] Surgeon Cardiac Surg 06/25/23 Deena Francois MD [address] [place] [phone] Primary Staff Physician Cardiology 07/24/23 Repeat Chief Relationship Specialty Start Date End Date Abdiel Mathews NP [address] [place] [address] PCP - General Family Medicine 07/02/23 Nitesh Jimenez MD [address] [place] [address] [id number] Referring Cardiology 06/25/23 Usha Navarro MD [facility] [place] [id number] Surgeon Cardiac Surg 06/25/23 Deena Francois MD [facility] [place] [phone] Primary Staff Physician Cardiology 07/24/23 Repeat Chief Relationship Specialty Start Date End Date Abdiel Mathews NP [address] [place] [address] PCP - General Family Medicine 07/02/23 Nitesh Jimenez MD [address] [address] Referring Cardiology 06/25/23 Usha Navarro MD [address] [place] [id number] Surgeon Cardiac Surg 06/25/23 Deena Francois MD [address] [place] [address] Primary Staff Physician Cardiology 07/24/23 Repeat Chief Relationship Specialty Start Date End Date Abdiel Mathews NP [address] [place] [address] PCP - General Family Medicine 07/02/23 Nitesh Jimenez MD [address] [id number] Referring Cardiology 06/25/23 Usha Navarro MD [address] [place] [id number] Surgeon Cardiac Surg 06/25/23 Deena Francois MD [address] [place] [address] Primary Staff Physician Cardiology 07/24/23 Repeat Chief Relationship Specialty Start Date End Date Abdiel Mathews NP [address] [place] [id number] PCP - General Family Medicine 07/02/23 Nitesh Jimenez MD [address] [phone] Referring Cardiology 06/25/23 Usha Navarro MD [address] [place] [address] Surgeon Cardiac Surg 06/25/23 Deena Francois MD [address] [place] [address] Primary Staff Physician Cardiology 07/24/23 Repeat Chief Relationship Specialty Start Date End Date Abdiel Mathews NP [address] [facility] [place] [address] [place] [address] PCP - General Family Medicine 07/02/23 Nitesh Jimenez MD [address] [address] Referring Cardiology 06/25/23 Usha Navarro MD [address] [place] [address] Surgeon Cardiac Surg 06/25/23 Deena Francois MD [address] [place] [address] Primary Staff Physician Cardiology 07/24/23 Team Status: [...] BE BASED ON THE PRIMARY CLINICAL RECORDS. [facility] [employer] [facility]. provides no warranty or guarantee of the accuracy or completeness of information in this document.
[2025-03-26] MEDS: Vancomycin HCl 1,000 MG in 0.9% Normal Saline (250mL Bag) 250 ML 250 MG IV (01:35)
[2025-03-26] MEDS: Piperacil/Tazobactam 3.375 GM in 0.9% Normal Saline (50mL MB+) 50 ML IV ×3 (01:36→13:51)
--- OUTSIDE RECORDS SUMMARY | 2025-03-26 02:20 | XMS RPT_ITS | CCD ---
Author Organization [facility] Care Team Providers Care Pega Developer Name Role Phone Debo VELAZQUEZ, Nae Kapadia [...] Unavailable Ramon EMERSON, Usha Louise Unavailable Bisi DITTO MACHINE OPERATOR, Abdiel Primary Care Provider [phone] Bisi DITTO MACHINE OPERATOR, Abdiel Primary Care Provider [phone] Vidya EMERSON, Deena Unavailable Bisi DITTO MACHINE OPERATOR, Abdiel Primary Care Provider BISI, ABDIEL Primary [...] Unavailable HAOUZI-JUDENHERC, DEENA Referring Unavail able BISI, [place] Primary Care Unavailable HAOUZI-JUDENHERC, DEENA Referring Unavail able BISI, [place] Primary Care Unavailable HAOUZI-JUDENHERC, DEENA Referring Unavail able BISI, [place] Primary Care Unavailable HAOUZI-JUDENHERC, DEENA Referring Unavail able BISI, [place] Primary Care Unavailable HAOUZI-JUDENHERC, DEENA Referring Unavail able HAOUZI-JUDENHERC, DEENA Referring Unavail able BISI, [place] Primary Care Unavailable HAOUZI-JUDENHERC, DEENA Referring Unavail able BISI, [place] Primary Care Unavailable BISI, [place] Primary Care Unavailable HAOUZI-JUDENHERC, DEENA Referring Unavail able BISI, [place] Primary Care Unavailable HAOUZI-JUDENHERC, DEENA Referring Unavail able BISI, [place] Primary Care Unavailable HAOUZI-JUDENHERC, DEENA Referring Unavail able BISI, [place] Primary Care Unavailable HAOUZI-JUDENHERC, DEENA Referring Unavail able BISI, [place] Primary Care Unavailable HAOUZI-JUDENHERC, DEENA Referring Unavail able BISI, [place] Primary Care Unavailable HAOUZI-JUDENHERC, DEENA Referring Unavail able BISI, [place] Primary Care Unavailable HAOUZI-JUDENHERC, DEENA Referring Unavail able BISI, [place] Primary Care Unavailable HAOUZI-JUDENHERC, DEENA Referring Unavail able BISI, [place] Primary Care Unavailable HAOUZI-JUDENHERC, DEENA Referring Unavail able BISI, [place] Primary Care Unavailable HAOUZI-JUDENHERC, DEENA Referring Unavail able BISI, [place] Primary Care Unavailable HAOUZI-JUDENHERC, DEENA Referring Unavail able BISI, [place] Primary Care Unavailable HAOUZI-JUDENHERC, DEENA Referring Unavail able BISI, [place] Primary Care Unavailable HAOUZI-JUDENHERC, DEENA Referring Unavail able BISI, [place] Primary Care Unavailable HAOUZI-JUDENHERC, DEENA Referring Unavail able BISI, [place] Primary Care Unavailable HAOUZI-JUDENHERC, DEENA Referring Unavail able HAOUZI-JUDENHERC, DEENA Referring Unavail able BISI, [place] Primary Care Unavailable HAOUZI-JUDENHERC, DEENA Referring Unavail able BISI, [place] Primary Care Unavailable HAOUZI-JUDENHERC, DEENA Attending Unavail able BISI, ABDIEL Primary Care Unavailable BISI, ABDIEL Primary Care Unavailable BISI, ABDIEL Primary Care Unavailable HAOUZI-JUDENHERC, DEENA Referring Unavail able HARRIET HOGAN Attending Unavailable BISI, ABDIEL Primary Care Unavailable BISI, ABDIEL Primary Care Unavailable HAOUZI-JUDENHERC, DEENA Referring Unavail able EDMUND KAMARA Attending Unavailable BISI, ABDEIL Primary Care Unavailable BISI, ABDIEL Primary Care [...] able BISI, ABDIEL Primary Care Unavailable Bisi DITTO MACHINE OPERATOR-C, Abdiel Primary Care Provider Bisi DITTO MACHINE OPERATOR-C, Abdiel Attending Provider Bisi DITTO MACHINE OPERATOR-C, Abdiel Referring Provider [phone] Bisi, Abdiel Primary Care Unavailable Bisi, Abdiel [...] on above: Take 2 tablets by mo [facility] every 6 hours as needed (for mild surgical pain). amoxicillin 500 mg oral tablet (20 sources) Penicillin-class Antibacterial Start: 11-13-2017 End: 08-04-2024 take 1 tablet by mouth every hour Amoxicillin 500 mg tablet Active 0 PO .COMPLEX 8 August 04, 2024 12:01pm 500mg, 4 tablets, 1 hr prior to procedure PO Start: 08-24-2014 take 4 tablets by mo [facility] every hour AMOXICILLIN 500 MG TABS Four tablets by mouth 1 hr prior to procedure AMOXICILLIN [id number] Singh Barrientos PA-C aspirin 81 mg delayed [...] TABS One tablet by mouth daily ASPIRIN [id number] Ava Moraes RN Start: 07-22-2014 take 1 tablet by destinee th once daily ASPIRIN 81 MG TABS One tablet by mouth daily ASPIRIN [id number] Ava Moraes RN Comment on above: Take [...] Start: 01-08-2024 take 2 tablets by mo [facility] once daily at breakfast, then take 1 [...] minutes x 3 for chest pain NITROGLYCERIN [id number] Alen Phillips MD omeprazole 40 mg delayed [...] on above: Take 1 capsule by [facility] once daily. microencapsulated potassium chloride 20 meq extended release oral tablet (3 sources) Start: 08-06-20 End: 08-13-20 take 1 tablet by mouth once daily potassium chloride ER (KLOR-CON) 20 mEq tablet Take 1 tablet by mouth once daily for 7 days. 7 tablet 0 08/06/2023 08/13/2023 Active Comment on above: Take 1 tablet by [facility] once daily for 7 days. telmisartan 20 [...] TABS One tablet by mouth daily CHOLECALCIFEROL [id number] Singh Barrientos PA-C clindamycin 150 mg oral [...] on above: Take 1 capsule by mo [facility] two times a day. doxycycline hyclate 100 [...] on above: Take 2 tablets by mo [facility] once daily for 7 days. meloxicam 15 [...] 02-19-2016 Chronic Other aftercare (12 sources) 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; Translations: [Long-term current use [...] of left shoulder, subsequent encounter; Translations: [Other correction (current) drug therapy] Onset: 07-26-2014 Resolved: 03-30-2015 [...] Facility Cardiology Visit Reporton Cardiology Visit Report [facility] [address] [place] [address] OFFICE VISIT Date of Service: 12/24/24 MR#: [id number] Acct: [id number] Name: MARTIN HENSON Rep #: [id number] : 1955 Provider: Dr. Nitesh Jimenez MD Age/Sex: 69/M Location: [facility] Status: Signed HPI HPI History of Present Illness Details: Martin eHnson is a 69 year-old white male who [...] SANJEEV. Stress echo done in April 2024 [facility]. Exercise stress echo was negative for ischemia at 7.2 METS. No regional wall motion noted. Severe asymmetric LVH. Left atrial cavity increased from 36 mm work gree at rest to 110 mmHg post exercise. He tells me that he continues to do remarkably well. He did have an echocardiogram performed in March 2024 at the [facility] demonstrating severe asymmetric low ventricular hypertrophy and [...] Monitor Intake Visit Reasons: 1 Y FU Formula Technician Required: No Accompanied by: Significant Other Is [...] you fallen in the past year?: Yes [facility] Medical History Aortic stenosis Cardiomyopathy Abnormal echocardiogram findings without diagnosis Nonrheumatic aortic (valve) stenosis ( 09/20/21) Pure hypercholesterolemia Essential hypertension Aortic root dilatation Chest pain Family history of CVA Family history of hypertension Abnormal electrocardiogram Angina pectoris Undiagnosed cardiac murmurs Bicuspid aortic valve Other correction (current) drug therapy Surgical History S/P ascending [...] current occu (more content not included)... Normal [facility] PT D/C Summary (1)on 025 PT D/C Summary (1) [facility] Physical Therapy [facility] [address] [place] [address] / REHABILITATION SERVICES DISCHARGE SUMMARY MR#: [id number] Acct: [id number] Name: MARTIN HENSON Rep #: [id number] : 1955 69 From: Zane Alvarado PT, Doug. MD Rajan, OCS Referring Dr.: ALEXANDRA Mathews Status: REG R CR Insurance: [facility] SELF PAY INSURANCE Discharge Summary D/C summary: [...] please feel free to call me at [phone]. Thank you for the referral of this patient. Sincerely, Zane Alvarado, PT, Cert MDT, OCS Balance/Gait/Functiona l tests Balance/Special Test Scores Quick DASH Score: 9.0900 Improvement % Improvement: 80 12/10/24 0927 CC: ALEXANDRA Mathews JLA Signed Normal [facility] Re-Evaluation - PT (1)on Re-Evaluation - PT (1) [facility] Physical Therapy [facility] [address] [place] [address] / REEVALUATION / MEDICARE RECERTIFICATION PHYSICAL THERAPY MR#: [id number] Acct: [id number] Name: MARTIN HENSON Rep #: [id number] : 1955 69 From: Zane Alvarado PT, Cert. MD Rajan, OCS Referring Dr.: ALEXANDRA Mathews Status:REG RCR [facility] Re-Evaluation Intro: [...] do not hesitate to contact me at [phone] by phone or if you have questions or concerns regarding this new plan of care! Sincerely, Zane Alvarado PT, Cert MDT, [facility] 11/12/24 0926 CC: ALEXANDRA Mathews ALEN Signed For Medicare only, by signing this I certify the plan of care. Physicians Signature Date Normal [facility] Re-Evaluation - PT (1)on Re-Evaluation - PT (1) [facility] Physical Therapy [facility] [address] [place] [address] / REEVALUATION / MEDICARE RECERTIFICATION PHYSICAL THERAPY MR#: [id number] Acct: [id number] Name: MARTIN HENSON Rep #: [id number] : 1955 69 From: Zane Alvarado PT, Cert. MD Rajan, OCS Referring Dr.: ALEXANDRA Mathews Status:REG RCR [facility] Re-Evaluation Intro: [...] do not hesitate to contact me at [phone] by phone or if you have questions or concerns regarding this new plan of care! Sincerely, Zane Alvarado PT, Cert MDT, OCS 10/15/24 0947 CC: ALEXANDRA Mathews ALEN Signed For Medicare only, by signing this I certify the plan of care. Physicians Signature Date Normal [facility] Inital Evaluation (1) - PTon 09-16-2024 Inital Evaluation (1) - PT [facility] Physical Therapy [facility] [address] [place] [address] / REHABILITATION SERVICES INITIAL EVALUATION MR#: [id number] Acct: [id number] Name: MARTIN HENSON Rep #: [id number] : 1955 68 From: Zane Alvarado PT, Doug. MD Rajan, OCS Referring Dr.: ALEXANDRA Mathew Status: REG R CR Insurance: [facility] SELF PAY INSURANCE Patient's Visit Information Visit [...] and avoid surgery. 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 For Medicare only, by signing this I certify the plan of care. Please let me (more content not included)... Normal [facility] Shoulder min 2 Viewson 09-07 Shoulder min 2 Views [facility] Services [address] [place] [address] Shoulder min 2 Views MR#: [id number] Acct: [id number] Name: MARTIN HENSON Rep #: [id number] : 1955 M 68 From: Deepak Velarde MD PCP: ALEXANDRA Mathew Status: REG CLI Study: Shoulder min 2 Views Date of Exam: 09/07/24 Exam# [id number] Ordering Dr: Abdiel Mathews [id number] STUDY: X-RAY - RIGHT SHOULDER REASON FOR [...] at 13:48 EST , CC: ALEXANDRA Mathews Laborer [place]: Signed [facility] Office Visit (MAW) MARTIN HENSON ([id number]) 1955 M Date Time Provider Department 08/19/24 10:00 AM HARRIET HOGAN RKYSTIAN During your visit today, we recorded the [...] diagnosed with cardiomyopathy, including hypertrophic cardiomyopathy (PMID: [id number], [id number]). Recommended screening of first-degree relatives. Discussed the [...] need to be regularly evaluated by a professor computer science for HCM. We reviewed the options for [...] of pocket expense of greater than $100 [employer] (owned by [employer]) will make an automated call requesting patient call billing department back (more content not included)... Normal [facility] CNOVon 06-24-2024 CNOV Office Visit (CARDMN ) MARTIN HENSON ([id number]) 1955 Date Time Provider Department 06/24/24 1:30 PM EDMUND KAMARAPR During your visit today, we recorded the following information about you: Pulse Blood pressure Weight Height 59/minute 132/70 109.8 kg 1.854 m Edmund Kamara MD 06/24/2024 5:46 PM [facility] Sylmar Osman Lin Department of Cardiovascular Medicine SECTION OF CARDIAC PACING and ELECTROPHYSIOLOGY OUTPATIENT VISIT DATE June 24, 2024 OUTPATIENT VISIT TYPE NEW PRIMARY CARE PHYSICIAN: ABDIEL MATHEWS [address] [place] [address] REFERRING PHYSICIAN: Deena Francois MD [address] [place] [address] NURSING INTAKE HISTORY: Mr. Henson is a [...] (size #25). (more content not included)... Normal [facility] ECG COMPLETEon 06-24-2024 ECG COMPLETE Ventricular Rate : 5 9 BPM Atrial Rate : 59 BPM P-R Interval : 182 ms QRS Duration : 116 ms Q-T Interval : 456 ms QTC Calculation(Bazett) : 451 ms Calculated P Taft : 62 degrees Calculated R Taft : -4 degrees Calculated T Taft : 137 degrees SINUS BRADYCARDIA POSSIBLE LEFT ATRIAL ENLARGEMENT LEFT VENTRICULAR HYPERTROPHY WITH QRS WIDENING AND REPOLARIZATION ABNORMALITY ( R in aVL , Sokolow-Salcedo ) ABNORMAL ECG Confirmed by DEENA FRANCOIS MD ([id number]) on 07/28/2024 9:47:42 PM NAME : MARTIN HENSON PID : [id number] : 1955 Gender : Male Race : ORD : [id number] Procedure Date : Jun 24 2024 13:32:57 Edit Date : Jul 28 2024 21:47:45 Diagnosis: SINUS BRADYCARDIA POSSIBLE LEFT ATRIAL ENLARGEMENT LEFT VENTRICULAR HYPERTROPHY WITH QRS WIDENING AND REPOLARIZATION ABNORMALITY ( R in aVL , Sokolow-Salcedo ) ABNORMAL ECG Confirmed by DEENA FRANCOIS MD ([id number]) on 07/28/2024 9:47:42 PM Test Reason : Location : 314 : J14 J14 Overread By : DEENA FRANCOIS MD Edited By : DEENA FRANCOIS MD Referred By : , Acquired by : MEG BISHOP [facility] Fernando 06-08-2024 CNPN Telephone (CARCMN) MARTIN HENSON ([id number]) 1955 M Date Time Provider Department 06/08/24 DEENA FRANCOIS [facility] During your visit today, we recorded the following information about you: Lester Lewis RN 06/08/2024 8:15 AM Signed Deena Francois MD [facility] Clinical Nurse Phone Pool Cc: Garima Garcia [...] PAIN-UNSPEC [M25.50] 05/20/2006 10/03/2006 SPRAIN SHOULDER/ARM NOS [[id number]] 05/20/2006 10/03/2006 Complete rupture of rotator cuff [...] Encounter Status:Closed by LESTER LEWIS on 06/08/24 [facility] Fernando 05-05-2024 CNPN Telephone (CARCMN) MARTIN HENSON ([id number]) 1955 M Date Time Provider Department 05/05/24 DEENA FRANCOIS During your visit today, we recorded the following information about you: Goldie Leger 05/05/2024 8:50 AM Signed Patient called and asked that office notes and stress echo be sent sent Dr. Mathews [phone] received fax confirmation Goldie Leger May 05, [...] PAIN-UNSPEC [M25.50] 05/20/2006 10/03/2006 SPRAIN SHOULDER/ARM NOS [[id number]] 05/20/2006 10/03/2006 Complete rupture of rotator cuff [...] Encounter Status:Closed by GOLDIE LEGER on 05/05/24 [facility] Cardiology Visit Reporton Cardiology Visit Report [facility] [address] [place] [address] OFFICE VISIT Date of Service: 05/04/24 MR#: [id number] Acct: [id number] Name: MARTIN HENSON Rep #: [id number] : 1955 Provider: HERBERT Douglas Age/Sex: 68/M [facility] Status: Signed [facility] History of Present Illness Details: Martin Henson [...] SANJEEV. Stress echo done in April 2024 [facility]. Exercise stress echo was negative for ischemia [...] 99 Intake Visit Reasons: 6 M FU Formula Technician Required: No Is patient in pain?: No [...] Undiagnosed cardiac murmurs Bicuspid aortic valve Other correction (current) drug therapy Surgical History S/P ascending aortic aneurysm repair S/P AVR (aortic valve replacement) and aortop (more content not included)... Normal [facility] HIGH SENSITIVITY TROPONIN To n 05-04-2024 Troponin T.cardiac High sensitivity method [Mass/Vol] 18 ng/L High <12 [facility] Comment on above: Order Comment: Sydnie arguello Type: BLOOD SPECIMENOrdering Facility: [facility] Address: [address] [place] [address] Performed By: #### 3 3762-6, HSTNT ####[facility] LABCLIA [id number] [place] [address] [place] HbA1c (Bld)on 05-04-2024 Average glucose Estimated from glycated hemoglobin (Bld) [Mass/Vol] 120 mg/dL Normal [facility] Comment on above: Order Comment: Rocioi men Type: BLOOD SPECIMENOrdering Facility: [facility] Address: [address] [place] [address] Result Comment: eAG: (Estimated average glucose) is a calculated value from HgbA1c and is special service representative of the average blood glucose level in the last 2-3 month period. Performed By: #### 5 5454-3 ####[facility] LABCLIA [id number] [place] [address] [place] HbA1c (Bld) [Mass fraction] 5.8 % High 4.3-5.6 [facility] Comment on above: Order Comment: Sydnie arguello Type: BLOOD SPECIMENOrdering Facility: [facility] Address: [address] [place] [address] Result Comment: Amer ican Diabetes Association guidelines indicate that patients with HgbA1c in the range 5.7-6.4% are at increased risk for development of diabetes, and intervention by lifestyle modification may be beneficial. HgbA1c greater or equal to 6.5% is considered diagnostic of diabetes. Performed By: #### 5 5454-3 ####[facility] LABIA [id number] [address] [place] NT-proBNP [facility] [place] 05-04 Natriuretic peptide.B prohormone N-Terminal [Mass/Vol] 286 pg/mL High <125 [facility] Comment on above: Order Comment: Sydnie arguello Type: BLOOD SPECIMENOrdering Facility: [facility] Address: [address] [place] [address] Performed By: #### 3 3762-6, HSTNT ####[facility] [id number] [address] [place] Fernando 04-30-2024 KIMBERLYN Telephone (SONNY) MARTIN HENSON ([id number]) 1955 M Date Time Provider Department 04/30/24 [...] it will be difficult to come to [place] for holter monitor pickup/placement, so I let [...] PAIN-UNSPEC [M25.50] 05/20/2006 10/03/2006 SPRAIN SHOULDER/ARM NOS [[id number]] 05/20/2006 10/03/2006 Complete rupture of rotator cuff [...] Status:Closed by MARITA ELIZONDO on 04/30/24 Normal [facility] CBC W/Diff, Automatedon 08-2 Absolute Lymph 1.78 X10 3/uL Normal 0.83-4.51 [facility] Comment on above: Performed By: #### L 100.0100, L500.4050, L501.9910, L500.4100, L506.1000 #### [facility] Laboratory [address] [place], [address] Absolute Neut 3.8 X10 3/uL Normal 2.0-7.7 [facility] Comment on above: Performed By: #### L 100.0100, L500.4050, L501.9910, L500.4100, L506.1000 #### [facility] [address] [place], [address] Basophils/100 WBC (Bld) 1.0 % Normal 0-1 [facility] Comment on above: Performed By: #### L 100.0100, L500.4050, L501.9910, L500.4100, L506.1000 #### [facility] [address] [place], [address] Eosinophils/100 WBC (Bld) 4.8 % Normal 0-5 [facility] Comment on above: Performed By: #### L 100.0100, L500.4050, L501.9910, L500.4100, L506.1000 #### [facility] [address] [place], [address] Erythrocyte distribution width (RBC) [Ratio] 12.6 % Normal 11.6-14.6 [facility] Comment on above: Performed By: #### L 100.0100, L500.4050, L501.9910, L500.4100, L506.1000 #### [facility] [address] [place], [address] Hematocrit (Bld) [Volume fraction] 49.7 % Normal 40-54 [facility] Comment on above: Performed By: #### L 100.0100, L500.4050, L501.9910, L500.4100, L506.1000 #### [facility] [address] [place], [address] Hemoglobin (Bld) [Mass/Vol] 16.4 g/dL Normal 13.0-16.5 [facility] Comment on above: Performed By: #### L 100.0100, L500.4050, L501.9910, L500.4100, L506.1000 #### [facility] [address] [place], [address] IG% 0.300 Normal 0.0-0.9 [facility] Comment on above: Result Comment: IG% - Immature Granulocytes (promyelocytes, myelocytes and metamyelocytes) > 1% indicates that a LEFT SHIFT is Present. Performed By: #### L 100.0100, L500.4050, L501.9910, L500.4100, L506.1000 #### [facility] [address] [place], [address] Lymphocytes/100 WBC (Bld) 26.6 % Normal 19-41 [facility] Comment on above: Performed By: #### L 100.0100, L500.4050, L501.9910, L500.4100, L506.1000 #### [facility] [address] [place], [address] MCH (RBC) [Entitic mass] 30.1 pg Normal 27.0-32.0 [facility] Comment on above: Performed By: #### L 100.0100, L500.4050, L501.9910, L500.4100, L506.1000 #### [facility] [address] [place], [address] MCHC (RBC) [Mass/Vol] 33.0 g/dL Normal 32-36 [facility] Comment on above: Performed By: #### L 100.0100, L500.4050, L501.9910, L500.4100, L506.1000 #### [facility] [address] [place], [address] MCV (RBC) [Entitic vol] 91.2 fL Normal 80-94 [facility] Comment on above: Performed By: #### L 100.0100, L500.4050, L501.9910, L500.4100, L506.1000 #### [facility] [address] [place], [address] Monocytes/100 WBC (Bld) 9.9 % Normal 0-10 [facility] Comment on above: Performed By: #### L 100.0100, L500.4050, L501.9910, L500.4100, L506.1000 #### [facility] [address] [place], [address] Neutrophils/100 WBC (Bld) 57.4 % Normal 47-70 [facility] Comment on above: Performed By: #### L 100.0100, L500.4050, L501.9910, L500.4100, L506.1000 #### [facility] [address] [place], [address] Nucleated RBC (Bld) [#/Vol] 0 10*3/uL Normal 0-5 [facility] Comment on above: Performed By: #### L 100.0100, L500.4050, L501.9910, L500.4100, L506.1000 #### [facility] [address] [place], [address] Platelet mean volume (Bld) [Entitic vol] 10.4 fL Normal 6.2-12.0 [facility] Comment on above: Performed By: #### L 100.0100, L500.4050, L501.9910, L500.4100, L506.1000 #### [facility] [address] [place], [address] Platelets (Bld) [#/Vol] 142 10*3/uL Low 150-450 [facility] Comment on above: Performed By: #### L 100.0100, L500.4050, L501.9910, L500.4100, L506.1000 #### [facility] [address] [place], [address] RBC (Bld) [#/Vol] 5.45 10*6/uL Normal 4.6-6.2 [facility] Comment on above: Performed By: #### L 100.0100, L500.4050, L501.9910, L500.4100, L506.1000 #### [facility] [address] [place], [address] RDW SD 42.1 fl Normal 35.1-43.9 [facility] Comment on above: Performed By: #### L 100.0100, L500.4050, L501.9910, L500.4100, L506.1000 #### [facility] [address] [place], [address] WBC (Bld) [#/Vol] 6.7 10*3/uL Normal 4.4-11.0 [facility] Comment on above: Performed By: #### L 100.0100, L500.4050, L501.9910, L500.4100, L506.1000 #### [facility] [address] [place], [address] Comprehensive Metabolic [facility] 04-29-2024 Albumin [Mass/Vol] 3.9 g/dL Normal 3.2-5.0 [facility] Comment on above: Performed By: #### L 100.0100, L500.4050, L501.9910, L500.4100, L506.1000 #### [facility] [address] [place], [address] Albumin/Globulin [Mass ratio] 1.2 {ratio} Normal 0.9-2.4 [facility] Comment on above: Performed By: #### L 100.0100, L500.4050, L501.9910, L500.4100, L506.1000 #### [facility] [address] [place], [address] ALK P 87 U/L Normal 45-117 [facility] Comment on above: Performed By: #### L 100.0100, L500.4050, L501.9910, L500.4100, L506.1000 #### [facility] [address] [place], [address] ALT [Catalytic activity/Vol] 53 U/L Normal 16-61 [facility] Comment on above: Performed By: #### L 100.0100, L500.4050, L501.9910, L500.4100, L506.1000 #### [facility] [address] [place], [address] AST [Catalytic activity/Vol] 26 U/L Normal 15-37 [facility] Comment on above: Performed By: #### L 100.0100, L500.4050, L501.9910, L500.4100, L506.1000 #### [facility] [address] [place], [address] Bilirubin [Mass/Vol] 0.80 mg/dL Normal 0.20-1.00 [facility] Comment on above: Result Comment: For patients on eltrombopag therapy, use of Dimension Irene TBIL is not recommended. Performed By: #### L 100.0100, L500.4050, L501.9910, L500.4100, L506.1000 #### [facility] [address] [place], [address] BUN/CRE 16.7 RATIO Normal 10-20 [facility] Comment on above: Performed By: #### L 100.0100, L500.4050, L501.9910, L500.4100, L506.1000 #### [facility] [address] [place], [address] CA,Total 9.3 mg/dL Normal 8.5-10.1 [facility] Comment on above: Performed By: #### L 100.0100, L500.4050, L501.9910, L500.4100, L506.1000 #### [facility] [address] [place], [address] Chloride [Moles/Vol] 106 mmol/L Normal 98-107 [facility] Comment on above: Performed By: #### L 100.0100, L500.4050, L501.9910, L500.4100, L506.1000 #### [facility] [address] [place], [address] CO2 [Moles/Vol] 29.0 mmol/L Normal 21.0-32.0 [facility] Comment on above: Performed By: #### L 100.0100, L500.4050, L501.9910, L500.4100, L506.1000 #### [facility] [address] [place], [address] Creatinine [Mass/Vol] 1.14 mg/dL Normal 0.70-1.30 [facility] Comment on above: Result Comment: The validity of the calculated GFR GFRAA in patients over 70 years has not been determined. Clinical correlation is essential. Performed By: #### L 100.0100, L500.4050, L501.9910, L500.4100, L506.1000 #### [facility] [address] [place], [address] EST GFR - AA 82 mL/min Normal >60 [facility] Comment on above: Result Comment: Afri can Kenyan GFR Calc Performed By: #### L 100.0100, L500.4050, L501.9910, L500.4100, L506.1000 #### [facility] [address] [place], [address] GAP 3 Low 5-15 [facility] Comment on above: Performed By: #### L 100.0100, L500.4050, L501.9910, L500.4100, L506.1000 #### [facility] [address] [place], [address] GFR/1.73 sq M.predicted among non-blacks MDRD (S/P/Bld) [Vol rate/Area] 68 mL/min/{1.73_m2} Normal >60 [facility] Comment on above: Result Comment: Non- GFR Calc Performed By: #### L 100.0100, L500.4050, L501.9910, L500.4100, L506.1000 #### [facility] [address] [place], [address] Globulin (S) [Mass/Vol] 3.3 g/dL Normal 2.2-4.2 [facility] Comment on above: Performed By: #### L 100.0100, L500.4050, L501.9910, L500.4100, L506.1000 #### [facility] [address] [place], [address] Glucose [Mass/Vol] 116 mg/dL High 74-106 [facility] Comment on above: Result Comment: Fast ing Glucose result from 100 to 125 mg/dL suggests IMPAIRED HOMEOSTASIS per A.D.A. criteria. Performed By: #### L 100.0100, L500.4050, L501.9910, L500.4100, L506.1000 #### [facility] [address] [place], [address] Potassium [Moles/Vol] 5.1 mmol/L Normal 3.5-5.1 [facility] Comment on above: Performed By: #### L 100.0100, L500.4050, L501.9910, L500.4100, L506.1000 #### [facility] [address] [place], [address] Sodium [Moles/Vol] 138 mmol/L Normal 136-145 [facility] Comment on above: Performed By: #### L 100.0100, L500.4050, L501.9910, L500.4100, L506.1000 #### [facility] [address] [place], [address] T PROT 7.2 g/dL Normal 6.4-8.2 [facility] Comment on above: Performed By: #### L 100.0100, L500.4050, L501.9910, L500.4100, L506.1000 #### [facility] [address] [place], [address] Urea nitrogen [Mass/Vol] 19 mg/dL High 7-18 [facility] Comment on above: Performed By: #### L 100.0100, L500.4050, L501.9910, L500.4100, L506.1000 #### [facility] [address] [place], [address] Lipid Profileon 04-29-2024 Cholesterol [Mass/Vol] 125 mg/dL Normal 200 [facility] Comment on above: Result Comment: <200 mg/dL Desirable 200-240 mg/dL Borderline >240 mg/dL High Risk Performed By: #### L 100.0100, L500.4050, L501.9910, L500.4100, L506.1000 #### [facility] [address] [place], [address] Cholesterol in HDL [Mass/Vol] 31 mg/dL Low [facility] Comment on above: Result Comment: The drugs N-Acetylcysteine and Metamizole may falsely depress this assay. Reference Range HDL <40 mg/dL Low HDL Cholesterol HDL >or= 60 mg/dL High HDL Cholesterol Performed By: #### L 100.0100, L500.4050, L501.9910, L500.4100, L506.1000 #### [facility] [address] [place], [address] Cholesterol in LDL [Mass/Vol] 66 mg/dL Normal 0-130 [facility] Comment on above: Performed By: #### L 100.0100, L500.4050, L501.9910, L500.4100, L506.1000 #### [facility] [address] [place], [address] Cholesterol in VLDL [Mass/Vol] 28 mg/dL Normal 5-40 [facility] Comment on above: Performed By: #### L 100.0100, L500.4050, L501.9910, L500.4100, L506.1000 #### [facility] [address] [place], [address] Triglyceride [Mass/Vol] 142 mg/dL Normal [facility] Comment on above: Result Comment: The drugs N-Acetylcysteine and Metamizole may falsely depress this assay. Serum Triglycerides Reference Interval Normal <150 mg/dL Borderline high 150 - 199 mg/dL High 200 - 499 mg/dL Very High > or = 500 mg/dL Performed By: #### L 100.0100, L500.4050, L501.9910, L500.4100, L506.1000 #### [facility] [address] [place], [address] PSA,Total - Annual Screenon 04-29-2024 PSA,TOT SCREEN 1.53 ng/mL Normal 0.00-4.00 [facility] Comment on above: Result Comment: This test was performed using the TPSA assay method for the [employer] chemistry system. Values obtained with different assay methods cannot be used interchangably. When changing PSA assays in the course of monitoring a patient, additional sequential testing should be carried out to confirm baseline values. Performed By: #### L 100.0100, L500.4050, L501.9910, L500.4100, L506.1000 ####[facility] [id number] [facility]. [facility] [id number] Vitamin D,25 Hydroxyon 04-29 Vitamin D 25-OH 62.1 ng/mL Normal [facility] Comment on above: Result Comment: Megha min D 25(OH) Status Range Deficiency <20 ng/mL (50nmol/L) Insufficiency 20 - 30 ng/mL (50 - 75 nmol/L) Sufficiency 30 - 100 ng/mL (75 - 250 nmol/L) Toxicity >100 ng/mL (>250 nmol/L) Performed By: #### L 100.0100, L500.4050, L501.9910, L500.4100, L506.1000 #### [facility] [address] [facility] [place], [place], [id number] CREATININE BLDon 04-28-2024 Creatinine [Mass/Vol] 1.01 mg/dL Normal 0.73-1.22 [facility] Comment on above: Order Comment: Speci men Type: BLOOD SPECIMENOrdering Facility: [facility] Address: [address] [place] [address] Performed By: #### C RET1 ####[facility] [id number] [place] [address] [place] Creatinine and Glomerular filtration rate.predicted panel (S/P/Bld) 81 mL/min/1.73m??? Normal >=60 [facility] Comment on above: Order Comment: Speci men Type: BLOOD SPECIMENOrdering Facility: [facility] Address: [address] [id number] Result Comment: Suzi mated Glomerular Filtration Rate [...] actual GFR. Performed By: #### C RET1 ####[facility] [id number] [address] [facility] STRESS ECHO TREADMILLon 08- Stress Press Shop Supervisor Report: Stress Echo [facility] Date of service: 04/28/2024 12:12:51 PM Supervising physician: Nnamdi Adam MD PATIENT: Name: MR. MARTIN HENSON Age: 68 years Gender: M The supervising physician was in the department and immediately available. Final ------ Echocardiography Report: Stress [facility] Date of service: 04/28/2024 12:12:51 PM Ordering physician: DEENA FRANCOIS Indication: Hypertrophic obstructive cardiomyopathy Technologist: Alexia Armando [facility] Interpreting physician: John Austin MD [...] Final ------ Stress ECG Report: Stress Echo [facility] Date of service: 04/28/2024 12:12:51 PM Ordering physician: DEENA LEVIN-DOUGFORMERLY [facility] piping design specialist: Rozina Holly Turning Sander Operator: Marita Rodriguez Interpreting physician: John Austin [...] 168/84 mmHg. The double product achieved was [address]. Previous cardiovascular interventions: Aortic valve replacement (2022) [...] ------+--- (more content not included)... [facility] STRESS ECHO TREADMILL Stress Press Shop Supervisor Report: Stress [facility] Date of service: 04/28/2024 12:12:51 PM Supervising physician: Nnamdi Adam MD PATIENT: Name: MR. MARTIN HENSON Age: 68 years Gender: M The supervising physician was in the department and immediately available. Final ------ Echocardiography Report: Stress [facility] Date of service: 04/28/2024 12:12:51 PM Ordering [...] Final ------ Stress ECG Report: Stress Echo [facility] Date of service: 04/28/2024 12:12:51 PM Ordering physician: DEENA FRANCOIS piping design specialist: Rozina Holly Turning Sander Operator: Marita Rodriguez Interpreting physician: John Austin [...] 168/84 mmHg. The double product achieved was [id number]. Previous cardiovascular interventions: Aortic valve replacement (2022) [...] +--- +---+---+ (more content not included)... Normal [facility] 04-27-2024 [facility] Telephone (CDLBME) MARTIN HENSON ([id number]) 1955 M Date Time Provider Department 04/27/24 [facility]IG[facility] During your visit today, we recorded the [...] Fully Assessed Reason for Visit: Reminder Call [3300] Prescriptions as of 04/27/2024 - Telmisartan 20 [...] PAIN-UNSPEC [M25.50] 05/20/2006 10/03/2006 SPRAIN SHOULDER/ARM NOS [[id number]] 05/20/2006 10/03/2006 Complete rupture of rotator cuff [...] Encounter Status:Closed by MAR[facility]IGUEZ [facility] (CARCMN) MARTIN HENSON ([id number]) 1955 M Date Time Provider Department 04/20/24 DEENA FRANCOIS During your visit today, we recorded the following information about you: Garima Garcia 04/20/2024 10:17 AM Signed April 20, 2024 Patient Contact Number: [phone] (home) [phone] (work) Patient last seen within the last [...] PAIN-UNSPEC [M25.50] 05/20/2006 10/03/2006 SPRAIN SHOULDER/ARM NOS [[id number]] 05/20/2006 10/03/2006 Complete rupture of rotator cuff [...] Encounter Status:Closed by GARIMA GARCIA on 04/23/24 [facility] Fernando 04-01-2024 KIMBERLYN Telephone (CARCMN) MARTIN HENSON ([id number]) 1955 Date Time Provider Department 04/01/24 DEENA FRANCOIS During your visit today, we recorded the following information about you: Marita Elizondo, MARCUS 04/01/2024 10:17 AM Signed Deena Francois MD P [facility] Clinical Nurse Phone Pool Please, let Ross [...] PAIN-UNSPEC [M25.50] 05/20/2006 10/03/2006 SPRAIN SHOULDER/ARM NOS [[id number]] 05/20/2006 10/03/2006 Complete rupture of rotator cuff [...] Encounter Status:Closed by MARITA ELIZONDO on 04/01/24 [facility] 03-25-2024 CNOV Office Visit (CARCMN ) MARTIN HENSON ([id number]) 1955 M Date Time Provider Department 03/25/24 2:45 PM DEENA FRANCOIS CARCMN During your visit today, we recorded the following information about you: Pulse Blood pressure Weight Height 61/minute 147/86 107 kg 1.854 m Deena Francois MD 06/05/2024 10:41 AM Addendum Heart, Vascular and Thoracic [facility] Department of Cardiovascular Medicine SECTION OF CLINICAL CARDIOLOGY OUTPATIENT VISIT DATE March 25, 2024 OUTPATIENT VISIT TYPE ESTABLISHED PRIMARY CARE PHYSICIAN: ABDIEL MATHEWS [address] [phone] REFERRING PHYSICIAN: Deena Francois MD [address] [place], [place] [id number] CHIEF COMPLAINT: Follow up HISTORY OF PRESENT [...] AANDOx3 CARDIOVAS (more content not included)... Normal [facility] ECG COMPLETEon 03-25-2024 ECG COMPLETE Ventricular Rate : 5 3 BPM Atrial Rate : 53 BPM P-R Interval : 180 ms QRS Duration : 104 ms Q-T Interval : 482 ms QTC Calculation(Bazett) : 452 ms Calculated P Taft : 66 degrees Calculated R Taft : -4 degrees Calculated T Taft : 141 degrees SINUS BRADYCARDIA LEFT VENTRICULAR HYPERTROPHY WITH REPOLARIZATION ABNORMALITY ( R in aVL , Sokolow-Salcedo ) ABNORMAL ECG Confirmed by DEENA FRANCOIS MD ([id number]) on 04/21/2024 3:45:47 PM NAME : MARTIN HENSON PID : [id number] : 1955 Gender : Male Race : ORD : [id number] Procedure Date : Mar 25 2024 13:14:02 Edit Date : Apr 21 2024 15:45:51 Diagnosis: SINUS BRADYCARDIA LEFT VENTRICULAR HYPERTROPHY WITH REPOLARIZATION ABNORMALITY ( R in aVL , Sokolow-Salcedo ) ABNORMAL ECG Confirmed by DEENA FRANCOIS MD ([id number]) on 04/21/2024 3:45:47 PM Test Reason : Location : 314 : J14 Overread By : DEENA FRANCOIS MD Edited By : DEENA FRANCOIS MD Referred By : JASPREET FRANCOIS Acquired by : JOSÉ LUIS QIU [facility] ECHOon 03-25-2024 Echocardiography Echocardiography Report: Transthoracic Echo [facility] J1-5 Date of service: 03/25/2024 1:36:29 PM PROGRAM OFFICER Ordering physician: DEENA FRANCOIS Indication: Limited for [...] * * * Final * * * [employer] Medical Image : [id number] Normal [facility] CTA CHEST (GATED) W IVCONon 01-09-2024 [...] SCANNER: out-patient [employer] Definition Force Dual source [id number] scanner PROTOCOL: Prospectively triggered helical high-pitch acquisitions [...] AORTIC DIMENSIONS: AORTIC ROOT: 4.5 cm measured bxizz-mr-nflzp No significant interval change mid ASCENDING THORACIC AORTA: 3.9 cm Interval decrease in size, prior diameter 4.5 cm mid AORTIC ARCH: 3.1 cm mid DESCENDING THORACIC AORTA: 2.8 cm limited upper ABDOMEN: unremarkable BONES and SOFT TISSUES: degenerative changes of the thoracic spine. Cushion Installer (topogram) images: No additional findings. IMPRESSION: AORTIC VALVE: AVR with bioprosthetic valve, which appears well seated. No leaflet calcification. AORTA: Aortoplasty no evidence of post-surgical complications.expected surgical changes surrounding the repaired segments of the aorta. Normal size repaired aorta. The remaining segments of the thoracic aorta are normal in size No acute aortic pathology. AORTIC ROOT: 4.5 cm measured oshiz-wa-yqwbg No significant interval change mid ASCENDING THORACIC AORTA: 3.9 cm Interval decrease in size, prior diameter 4.5 cm CORONARY ANATOMY: normal origin of the coronary arteries. Mild calcified atherosclerotic changes of the coronary arteries. However, the current study is not optimized for coronary assessment. Laborer Tanbark: REINALDO Transcribe Date/Time: Jan 09 2024 8:06A Dictated by : TORIN MOFFETT MD This examination was interpreted and the report reviewed and electronically signed by: TORIN MOFFETT MD on Jan 09 2024 10:43AM EST [id number] Normal [facility] CNOVon 01-08-2024 CNOV Office Visit (CARCMN ) MARTIN HENSON ([id number]) 1955 M Date Time Provider Department 01/08/24 3:15 PM DEENA FRANCOIS During your visit today, we recorded the following information about you: Pulse Respiration Blood pressure Weight 84/minute 14/minute 145/90 109.3 kg Deena Francois MD 03/27/2024 10:17 AM Addendum Heart, Vascular and Thoracic [facility] Department of Cardiovascular Medicine SECTION OF CLINICAL CARDIOLOGY OUTPATIENT VISIT DATE January 08, 2024 OUTPATIENT VISIT TYPE ESTABLISHED PRIMARY CARE PHYSICIAN: ABDIEL MATHEWS [address] [phone] REFERRING PHYSICIAN: Deena Francois MD [address] [place] [address] CHIEF COMPLAINT: None, has just completed cardiac [...] Glasses, Hear (more content not included)... Normal [facility] CREATININE, BLOOD (POC)on Creatinine [Mass/Vol] 1.20 mg/dL 0.7 - 1.4 mg/dL [facility] eGFR (POCT) mL/min/1.73 m2 [facility] Location:Radiology [facility], [address] [place] [address], [address] [place] [address] POINT OF CARE [facility] ECHOon 01-08-2024 Echocardiography Echocardiography Report: Transthoracic Echo [facility] J35 Date of service: 01/08/2024 1:33:42 PM PROGRAM OFFICER Ordering physician: DEENA FRANCOIS Indication: S/P AVR, [...] #78). There (more content not included)... Normal [facility] CNOVon 01-01-2024 CNOV Office Visit (MIRI) MARTIN HENSON ([id number]) 1955 M Date Time Provider Department 01/01/24 8:00 AM CARD REHAB PHASE 2 [facility] During your visit today, we recorded the following information about you: Pulse Blood pressure Weight 62/minute 130/84 109.8 kg Josiah Suh, property maintenance technician 01/01/2024 8:25 AM Signed [facility] [...] Daily Exercise Log will be scanned into [employer] once it is completed. These can be [...] Plan, and education sessions covered. Josiah Suh, Shank Faker Heart and Vascular [facility] Department of Cardiovascular Medicine Discharge [...] daily. No (more content not included)... Normal [facility] 12-30-2023 [facility] Office Visit (MIRI) MARTIN HENSON ([id number]) 1955 M Date Time Provider Department 12/30/23 8:00 AM CARD REHAB PHASE 2 [facility] During your visit today, we recorded the following information about you: Katie Decker, Shank Faker 12/30/2023 8:20 AM Signed Cardiac Rehabilitation [facility] Based Program Supervising Physician: Len Menendez [...] Daily Exercise Log will be scanned into [employer] once it is completed. These can be [...] Plan, and education sessions covered. Katie Decker, Shank Faker Referring Provider: DEENA FRANCOIS [[id number]] Allergies As of Date: 12/30/2023 (No Active [...] PAIN-UNSPEC [M25.50] 05/20/2006 10/03/2006 SPRAIN SHOULDER/ARM NOS [[id number]] 05/20/2006 10/03/2006 Complete rupture of rotator cuff [...] Encounter Status:Closed by KATIE DECKER on 12/30/23 [facility] 12-27-2023 [facility] Office Visit (MIRI) HENSONMARTIN MODI ([id number]) 1955 M Date Time Provider Department 12/27/23 8:00 AM CARD REHAB PHASE 2 [facility] During your visit today, we recorded the following information about you: Josiah Suh, property maintenance technician 12/27/2023 8:22 AM Signed [facility] [...] Daily Exercise Log will be scanned into [employer] once it is completed. These can be [...] Plan, and education sessions covered. Josiah Suh, Shank Faker Referring Provider: DEENA FRANCOIS [[id number]] Allergies As of Date: 12/27/2023 (No Active [...] PAIN-UNSPEC [M25.50] 05/20/2006 10/03/2006 SPRAIN SHOULDER/ARM NOS [[id number]] 05/20/2006 10/03/2006 Complete rupture of rotator cuff [...] by JOSIAH SUH on 12/27/23 [facility] 12-25-2023 [facility] Office Visit (MIRI) MARTIN HENSON ([id number]) 1955 M Date Time Provider Department 12/25/23 8:00 AM CARD REHAB PHASE 2 [facility] During your visit today, we recorded the following information about you: Avelino Aburto, Shank Faker 12/25/2023 8:23 AM Signed [facility] [...] Daily Exercise Log will be scanned into [employer] once it is completed. These can be [...] Plan, and education sessions covered. Avelino Aburto, Shank Faker Referring Provider: DEENA FRANCOIS [[id number]] Allergies As of Date: 12/25/2023 (No Active Allergies) Date Reviewed: 09/18/2023 Reviewed by: Pat Ye HUC - Fully Assessed Reason for Visit: Cardiac Rehab [[id number]] Primary Visit Diagnosis:S/P AVR (aortic valve replacement) [...] PAIN-UNSPEC [M25.50] 05/20/2006 10/03/2006 SPRAIN SHOULDER/ARM NOS [[id number]] 05/20/2006 10/03/2006 Complete rupture of rotator cuff [...] Encounter Status:Closed by AVELINO ABURTO [facility] Office Visit (MIRI) MARTIN HENSON ([id number]) 1955 M Date Time Provider Department 12/23/23 8:00 AM CARD REHAB PHASE 2 [facility] During your visit today, we recorded the following information about you: Katie Decker, Shank Faker 12/23/2023 8:15 AM Signed [facility] [...] Daily Exercise Log will be scanned into [employer] once it is completed. These can be [...] Plan, and education sessions covered. Katie Decker, Shank Faker Referring Provider: DEENA FRANCOIS [[id number]] Allergies As of Date: 12/23/2023 (No Active [...] PAIN-UNSPEC [M25.50] 05/20/2006 10/03/2006 SPRAIN SHOULDER/ARM NOS [[id number]] 05/20/2006 10/03/2006 Complete rupture of rotator cuff [...] Encounter Status:Closed by KATIE DECKER on 12/23/23 [facility] 12-20-2023 [facility] Office Visit (MIRI) MARTIN HENSON ([id number]) 1955 M Date Time Provider Department 12/20/23 8:00 AM CARD REHAB PHASE 2 [facility] During your visit today, we recorded the following information about you: Josiah Suh, property maintenance technician 12/20/2023 8:25 AM Signed [facility] [...] Daily Exercise Log will be scanned into [employer] once it is completed. These can be [...] Plan, and education sessions covered. Josiah Suh, Shank Faker Referring Provider: DEENA FRANCOIS [[id number]] Allergies As of Date: 12/20/2023 (No Active Allergies) Date Reviewed: 09/18/2023 Reviewed by: Pat Ye HUC - Fully Assessed Reason for Visit: Cardiac Rehab [[id number]] Primary Visit Diagnosis:S/P AVR (aortic valve replacement) [...] PAIN-UNSPEC [M25.50] 05/20/2006 10/03/2006 SPRAIN SHOULDER/ARM NOS [[id number]] 05/20/2006 10/03/2006 Complete rupture of rotator cuff [...] Encounter Status:Closed by JOSIAH SUH on 12/20/23 [facility] 12-18-2023 [facility] Office Visit (MIRI) MARTIN HENSON ([id number]) 1955 M Date Time Provider Department 12/18/23 8:00 AM CARD REHAB PHASE 2 [facility] During your visit today, we recorded the following information about you: Avelino Aburto, Shank Faker 12/18/2023 8:22 AM [facility]igned [facility] [...] Daily Exercise Log will be scanned into [employer] once it is completed. These can be [...] Plan, and education sessions covered. Avelino Aburto, Shank Faker Referring Provider: DEENA FRANCOIS [[id number]] Allergies As of Date: 12/18/2023 (No Active [...] PAIN-UNSPEC [M25.50] 05/20/2006 10/03/2006 SPRAIN SHOULDER/ARM NOS [[id number]] 05/20/2006 10/03/2006 Complete rupture of rotator cuff [...] Encounter Status:Closed by AVELINO ABURTO on 12/18/23 [facility] 12-16-2023 [facility] Office Visit (MIRI) MARTIN HENSON ([id number]) 1955 M Date Time Provider Department 12/16/23 8:00 AM CARD REHAB PHASE 2 [facility] During your visit today, we recorded the following information about you: Katie Decker, Shank Faker 12/16/2023 8:26 AM [facility] [...] Daily Exercise Log will be scanned into [employer] once it is completed. These can be [...] Plan, and education sessions covered. Katie Decker, Shank Faker Referring Provider: DEENA FRANCOIS [[id number]] Allergies As of Date: 12/16/2023 (No Active [...] PAIN-UNSPEC [M25.50] 05/20/2006 10/03/2006 SPRAIN SHOULDER/ARM NOS [[id number]] 05/20/2006 10/03/2006 Complete rupture of rotator cuff [...] Encounter Status:Closed by KATIE DECKER on 12/16/23 [facility] 12-13-2023 [facility] Office Visit (MIRI) MARTIN HENSON ([id number]) 1955 M Date Time Provider Department 12/13/23 8:00 AM CARD REHAB PHASE 2 [facility] During your visit today, we recorded the following information about you: Josiah Shu, property maintenance technician 12/13/2023 8:29 AM [facility]igned [facility] [...] cardiac rehabilitation. Patient has verbalized understanding of [place], angina, NTG education topic and the relation to disease managment. Patient's Daily Exercise Log will be scanned into [employer] once it is completed. These can be [...] Plan, and education sessions covered. Josiah Suh, Shank Faker Referring Provider: DEENA FRANCOIS [[id number]] Allergies As of Date: 12/13/2023 (No Active [...] PAIN-UNSPEC [M25.50] 05/20/2006 10/03/2006 SPRAIN SHOULDER/ARM NOS [[id number]] 05/20/2006 10/03/2006 Complete rupture of rotator cuff [...] Encounter Status:Closed by JOSIAH SUH on 12/13/23 [facility] 12-11-2023 [facility] Office Visit (MIRI) MARTIN HENSON ([id number]) 1955 M Date Time Provider Department 12/11/23 8:00 AM CARD REHAB PHASE 2 [facility] During your visit today, we recorded the following information about you: Avelino Aburto, Shank Faker 12/11/2023 8:23 AM Signed [facility] [...] Daily Exercise Log will be scanned into [employer] once it is completed. These can be [...] Plan, and education sessions covered. Avelino Aburto, Shank Faker Referring Provider: DEENA FRANCOIS [[id number]] Allergies As of Date: 12/11/2023 (No Active [...] PAIN-UNSPEC [M25.50] 05/20/2006 10/03/2006 SPRAIN SHOULDER/ARM NOS [[id number]] 05/20/2006 10/03/2006 Complete rupture of rotator cuff [...] Encounter Status:[facility] Office Visit (MIRI) MARTIN HENSON ([id number]) 1955 M Date Time Provider Department 12/09/23 8:00 AM CARD REHAB PHASE 2 [facility] During your visit today, we recorded the following information about you: Katie Decker, Shank Faker 12/09/2023 8:22 AM Signed [facility] [...] cardiac rehabilitation. Patient has verbalized understanding of [facility] of the Heart education topic and the relation to disease managment. Patient's Daily Exercise Log will be scanned into [employer] once it is completed. These can be [...] Plan, and education sessions covered. Katie Decker, Shank Faker Referring Provider: DEENA FRANCOIS [[id number]] Allergies As of Date: 12/09/2023 (No Active [...] PAIN-UNSPEC [M25.50] 05/20/2006 10/03/2006 SPRAIN SHOULDER/ARM NOS [[id number]] 05/20/2006 10/03/2006 Complete rupture of rotator cuff [...] Encounter Status:Closed [facility] K[facility]IE DECKER [facility] Office Visit (MIRI) MARTIN HENSON ([id number]) 1955 M Date Time Provider Department 12/06/23 8:00 AM CARD REHAB PHASE 2 [facility] During your visit today, we recorded the following information about you: Pulse Blood pressure Weight 72/minute 120/78 110.7 kg Josiah Suh, property maintenance technician 12/06/2023 8:27 AM Signed [facility] [...] Daily Exercise Log will be scanned into [employer] once it is completed. These can be [...] Plan, and education sessions covered. 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 [facility] Office Visit (MIRI) MARTIN HENSON ([id number]) 1955 M Date Time Provider Department 12/04/23 8:00 AM CARD REHAB PHASE 2 [facility] During your visit today, we recorded the following information about you: Avelino Aburto, Shank Faker 12/04/2023 8:19 AM [facility]igned [facility] [...] Daily Exercise Log will be scanned into [employer] once it is completed. These can be [...] Plan, and education sessions covered. Avelino Aburto, Shank Faker Referring Provider: DEENA FRANCOIS [[id number]] Allergies As of Date: 12/04/2023 (No Active Allergies) Date Reviewed: 09/18/2023 Reviewed by: Pat Ye HUC - Fully Assessed Reason for Visit: Cardiac Rehab [1981] Primary Visit Diagnosis:S/P AVR (aortic valve replacement) [...] PAIN-UNSPEC [M25.50] 05/20/2006 10/03/2006 SPRAIN SHOULDER/ARM NOS [[id number]] 05/20/2006 10/03/2006 Complete rupture of rotator cuff [...] Encounter Status:Closed by AVELINO ABURTO on 12/04/23 [facility] 12-02-2023 [facility] Office Visit (MIRI) MARTIN HENSON ([id number]) 1955 M Date Time Provider Department 12/02/23 8:00 AM CARD REHAB PHASE 2 [facility] During your visit today, we recorded the following information about you: Katie Decker, Shank Faker 12/02/2023 8:16 AM Signed [facility] [...] Daily Exercise Log will be scanned into [employer] once it is completed. These can be [...] Plan, and education sessions covered. Katie Decker, Shank Faker Referring Provider: DEENA FRANCOIS [[id number]] Allergies As of Date: 12/02/2023 (No Active [...] PAIN-UNSPEC [M25.50] 05/20/2006 10/03/2006 SPRAIN SHOULDER/ARM NOS [[id number]] 05/20/2006 10/03/2006 Complete rupture of rotator cuff [...] Encounter Status:Closed by KATIE DECKER on 12/02/23 [facility] 11-29-2023 [facility] Office Visit (MIRI) MARTIN HENSON ([id number]) 1955 M Date Time Provider Department 11/29/23 8:00 AM CARD REHAB PHASE 2 [facility] During your visit today, we recorded the following information about you: Avelino Aburto, Shank Faker 11/29/2023 8:26 AM Signed [facility] [...] Daily Exercise Log will be scanned into [employer] once it is completed. These can be [...] Plan, and education sessions covered. Avelino Aburto, Shank Faker Referring Provider: DEENA FRANCOIS [[id number]] Allergies As of Date: 11/29/2023 (No Active Allergies) Date Reviewed: 09/18/2023 Reviewed by: Pat Ye HUC - Fully Assessed Reason for Visit: Cardiac Rehab [[id number]] Primary Visit Diagnosis:S/P AVR (aortic valve replacement) [...] PAIN-UNSPEC [M25.50] 05/20/2006 10/03/2006 SPRAIN SHOULDER/ARM NOS [[id number]] 05/20/2006 10/03/2006 Complete rupture of rotator cuff [...] Encounter Status:Closed by AVELINO ABURTO on 11/29/23 [facility] 11-27-2023 [facility] Office Visit (MIRI) MARTIN HENSON ([id number]) 1955 M Date Time Provider Department 11/27/23 8:00 AM CARD REHAB PHASE 2 [facility] During your visit today, we recorded the following information about you: Avelino Aburto, Shank Faker 11/27/2023 8:26 AM Signed Card[facility] Rehabilitation [facility] Based Program Supervising Physician: Len Menendez [...] Daily Exercise Log will be scanned into [employer] once it is completed. These can be [...] Plan, and education sessions covered. Avelino Aburto, Shank Faker Referring Provider: DEENA FRANCOIS [[id number]] Allergies As of Date: 11/27/2023 (No Active [...] PAIN-UNSPEC [M25.50] 05/20/2006 10/03/2006 SPRAIN SHOULDER/ARM NOS [[id number]] 05/20/2006 10/03/2006 Complete rupture of rotator cuff [...] Encounter Status:Closed by AVELINO ABURTO on 11/27/23 [facility] Office Visit (MIRI) MARTIN HENSON ([id number]) 1955 M Date Time Provider Department 11/25/23 8:00 AM CARD REHAB PHASE 2 [facility] During your visit today, we recorded the following information about you: Katie Decker, Shank Faker 11/25/2023 8:10 AM Signed [facility] [...] Daily Exercise Log will be scanned into [employer] once it is completed. These can be [...] Plan, and education sessions covered. Katie Decker, Shank Faker Referring Provider: DEENA FRANCOIS [[id number]] Allergies As of Date: 11/25/2023 (No Active Allergies) Date Reviewed: 09/18/2023 Reviewed by: Pat Ye HUC - Fully Assessed Reason for Visit: Cardiac Rehab [9781] Primary Visit Diagnosis:S/P AVR (aortic valve replacement) [...] PAIN-UNSPEC [M25.50] 05/20/2006 10/03/2006 SPRAIN SHOULDER/ARM NOS [[id number]] 05/20/2006 10/03/2006 Complete rupture of rotator cuff [...] Encounter Status:Closed by KATIE DECKER on 11/25/23 [facility] 11-22-2023 [facility] Office Visit (MIRI) MARTIN HENSON ([id number]) 1955 M Date Time Provider Department 11/22/23 8:00 AM CARD REHAB PHASE 2 [facility] During your visit today, we recorded the following information about you: Josiah Suh, property maintenance technician 11/22/2023 8:15 AM Signed [facility] [...] Daily Exercise Log will be scanned into [employer] once it is completed. These can be [...] Plan, and education sessions covered. Josiah Suh, Shank Faker Referring Provider: DEENA FRANCOIS [[id number]] Allergies As of Date: 11/22/2023 (No Active Allergies) Date Reviewed: 09/18/2023 Reviewed by: Pat Ye HUC - Fully Assessed Reason for Visit: Cardiac Rehab [[id number]] Primary Visit Diagnosis:S/P AVR [Z95.2] Prescriptions as [...] PAIN-UNSPEC [M25.50] 05/20/2006 10/03/2006 SPRAIN SHOULDER/ARM NOS [[id number]] 05/20/2006 10/03/2006 Complete rupture of rotator cuff [...] Encounter Status:Closed by JOSIAH SUH on 11/22/23 [facility] 11[facility]2023 [facility] Office Visit (MIRI) MARTIN HENSON ([id number]) 1955 M Date Time Provider Department 11/20/23 8:00 AM CARD REHAB PHASE 2 [facility] During your visit today, we recorded the following information about you: Avelino Aburto, Shank Faker 11/20/2023 8:22 AM Signed [facility] [...] Daily Exercise Log will be scanned into [employer] once it is completed. These can be [...] Plan, and education sessions covered. Avelino Aburto, Shank Faker Referring Provider: DEENA FRANCOIS [[id number]] Allergies As of Date: 11/20/2023 (No Active [...] PAIN-UNSPEC [M25.50] 05/20/2006 10/03/2006 SPRAIN SHOULDER/ARM NOS [[id number]] 05/20/2006 10/03/2006 Complete rupture of rotator cuff [...] by AVELINO ABURTO on 11/20/23 [facility] 11-18-2023 [facility] Office Visit (MIRI) MARTIN HENSNO ([id number]) 1955 M Date Time Provider Department 11/18/23 8:00 AM CARD REHAB PHASE 2 [facility] During your visit today, we recorded the following information about you: Katie Decker, Shank Faker 11/18/2023 8:19 AM Signed [facility] [...] Daily Exercise Log will be scanned into [employer] once it is completed. These can be [...] Plan, and education sessions covered. Katie Decker, Shank Faker Referring Provider: DEENA FRANCOIS [[id number]] Allergies As of Date: 11/18/2023 (No Active [...] PAIN-UNSPEC [M25.50] 05/20/2006 10/03/2006 SPRAIN SHOULDER/ARM NOS [[id number]] 05/20/2006 10/03/2006 Complete rupture of rotator cuff [...] Encounter Status:Closed by KATIE DECKER on [facility]18/23 [facility] Office Visit (MIRI) MARTIN HENSON ([id number]) 1955 M Date Time Provider Department 11/15/23 8:00 AM CARD REHAB PHASE 2 [facility] During your visit today, we recorded the following information about you: Avelino Aburto, Shank Faker 11/15/2023 8:08 AM Signed [facility] [...] Daily Exercise Log will be scanned into [employer] once it is completed. These can be [...] Plan, and education sessions covered. Avelino Aburto Shank Faker Referring Provider: DEENA FRANCOIS [[id number]] Allergies As of Date: 11/15/2023 (No Active [...] PAIN-UNSPEC [M25.50] 05/20/2006 10/03/2006 SPRAIN SHOULDER/ARM NOS [[id number]] 05/20/2006 10/03/2006 Complete rupture of rotator cuff [...] Encounter Status:Closed by AVELINO ABURTO on 11/15/23 [facility] 11-13-2023 [facility] Office Visit (MIRI) MARTIN HENSON ([id number]) 1955 M Date Time Provider Department 11/13/23 8:00 AM CARD REHAB PHASE 2 [facility] During your visit today, we recorded the following information about you: Avelino Aburto, Shank Faker 11/13/2023 8:16 AM Signed Card[facility] Rehabilitation [facility] Based Program Supervising Physician: Len Menendez [...] Daily Exercise Log will be scanned into [employer] once it is completed. These can be [...] Plan, and education sessions covered. Avelino Aburto, Shank Faker Referring Provider: DEENA FRANCOIS [[id number]] Allergies As of Date: 11/13/2023 (No Active Allergies) Date Reviewed: 09/18/2023 Reviewed by: Pat Ye HUC - Fully Assessed Reason for Visit: Cardiac Rehab [[id number]] Primary Visit Diagnosis:S/P AVR (aortic valve replacement) [...] PAIN-UNSPEC [M25.50] 05/20/2006 10/03/2006 SPRAIN SHOULDER/ARM NOS [[id number]] 05/20/2006 10/03/2006 Complete rupture of rotator cuff [...] Encounter Status:Closed by AVELINO ABURTO [facility] Office Visit (MIRI) MARTIN HENSON ([id number]) 1955 M Date Time Provider Department 11/11/23 8:00 AM CARD REHAB PHASE 2 [facility] During your visit today, we recorded the following information about you: Katie Decker, Shank Faker 11/11/2023 8:16 AM Signed [facility] [...] Daily Exercise Log will be scanned into [employer] once it is completed. These can be [...] Plan, and education sessions covered. Katie Decker, Shank Faker Referring Provider: DEENA FRANCOIS [[id number]] Allergies As of Date: 11/11/2023 (No Active [...] PAIN-UNSPEC [M25.50] 05/20/2006 10/03/2006 SPRAIN SHOULDER/ARM NOS [[id number]] 05/20/2006 10/03/2006 Complete rupture of rotator cuff [...] Encounter Status:Closed by KATIE DECKER on 11/11/23 [facility] 11-08-2023 [facility] Office Visit (MIRI) MARTIN HENSON ([id number]) 1955 M Date Time Provider Department 11/08/23 8:00 AM CARD REHAB PHASE 2 [facility] During your visit today, we recorded the following information about you: Pulse Blood pressure Weight 73/minute 128/76 111.1 kg Avelino Aburto, Shank Faker 11/08/2023 8:14 AM Cosign Needed Cardiac Rehabilitation [...] Daily Exercise Log will be scanned into [employer] once it is completed. These can be [...] Plan, and education sessions covered. Avelino Aburto, Shank Faker Patient's 30 day ITP located in 30 day doc flowsheet. Referring Provider: DEENA FRANCOIS [[id number]] Allergies As of Date: 11/08/2023 (No Active Allergies) Date Reviewed: 09/18/2023 Reviewed by: Pat Ye HUC - Fully Assessed Reason for Visit: Cardiac Rehab [[id number]] Cmt: 30 day assessment Primary Visit Diagnosis:S/P [...] PAIN-UNSPEC [M25.50] 05/20/2006 10/03/2006 SPRAIN SHOULDER/ARM NOS [[id number]] 05/20/2006 10/03/2006 Complete rupture of rotator cuff [...] Encounter Status:Closed by AVELINO ABURTO [facility]08/23 [facility] Office Visit (MIRI) MARTIN HENSON ([id number]) 1955 M Date Time Provider Department 11/06/23 8:00 AM CARD REHAB PHASE 2 [facility] During your visit today, we recorded the following information about you: Josiah Suh, property maintenance technician 11/06/2023 8:19 AM Signed [facility] [...] Daily Exercise Log will be scanned into [employer] once it is completed. These can be [...] Plan, and education sessions covered. Josiah Suh, Shank Faker Referring Provider: DEENA FRANCOIS [[id number]] Allergies As of Date: 11/06/2023 (No Active [...] PAIN-UNSPEC [M25.50] 05/20/2006 10/03/2006 SPRAIN SHOULDER/ARM NOS [[id number]] 05/20/2006 10/03/2006 Complete rupture of rotator cuff [...] Encounter Status:Closed by JOSIAH SUH on 11/06/23 [facility] 11-04-2023 [facility] Office Visit (MIRI) MARTIN HENSON ([id number]) 1955 M Date Time Provider Department 11/04/23 8:00 AM CARD REHAB PHASE 2 [facility] During your visit today, we recorded the following information about you: Katie Decker, Shank Faker 11/04/2023 8:21 AM Signed [facility] [...] Daily Exercise Log will be scanned into [employer] once it is completed. These can be [...] Plan, and education sessions covered. Katie Decker Shank Faker Referring Provider: DEENA FRANCOIS [[id number]] Allergies As of Date: 11/04/2023 (No Active Allergies) Date Reviewed: 09/18/2023 Reviewed by: Pat Ye HUC - Fully Assessed Reason for Visit: Cardiac Rehab [1851] Primary Visit Diagnosis:S/P AVR (aortic valve replacement) [...] PAIN-UNSPEC [M25.50] 05/20/2006 10/03/2006 SPRAIN SHOULDER/ARM NOS [[id number]] 05/20/2006 10/03/2006 Complete rupture of rotator cuff [...] Encounter Status:Closed by KATIE DECKER [facility]04[facility] Office Visit (MIRI) MARTIN HENSON ([id number]) 1955 M Date Time Provider Department 11/01/23 8:00 AM CARD REHAB PHASE 2 [facility] During your visit today, we recorded the following information about you: Katie Decker, Shank Faker 11/01/2023 8:01 AM Signed [facility] [...] rehabilitation. Patient has verbalized understanding of Angina, [place], NTG education topic and the relation to disease managment. Patient's Daily Exercise Log will be scanned into [employer] once it is completed. These can be [...] Plan, and education sessions covered. Katie Decker, Shank Faker Referring Provider: DEENA FRANCOIS [[id number]] Allergies As of Date: 11/01/2023 (No Active [...] PAIN-UNSPEC [M25.50] 05/20/2006 10/03/2006 SPRAIN SHOULDER/ARM NOS [[id number]] 05/20/2006 10/03/2006 Complete rupture of rotator cuff [...] Encounter Status:Closed by KATIE DECKER on [facility]01/23 [facility] Office Visit (MIRI) AMRTIN HENSON ([id number]) 1955 Date Time Provider Department 10/30/23 8:00 AM CARD REHAB PHASE 2 [facility] During your visit today, we recorded the following information about you: Katie Decker, Shank Faker 10/30/2023 8:09 AM Signed [facility] [...] Daily Exercise Log will be scanned into [employer] once it is completed. These can be [...] Plan, and education sessions covered. Katie Decker Shank Faker Referring Provider: DEENA FRANCOIS [[id number]] Allergies As of Date: 10/30/2023 (No Active Allergies) Date Reviewed: 09/18/2023 Reviewed by: Pat Ye HUC - Fully Assessed Reason for Visit: Cardiac Rehab [3659] Primary Visit Diagnosis:S/P AVR (aortic valve replacement) [...] PAIN-UNSPEC [M25.50] 05/20/2006 10/03/2006 SPRAIN SHOULDER/ARM NOS [[id number]] 05/20/2006 10/03/2006 Complete rupture of rotator cuff [...] Encounter Status:Closed by KATIE DECKER on 10/30/23 [facility] Office Visit (MIRI) MARTIN HENSON ([id number]) 1955 M Date Time Provider Department 10/28/23 8:00 AM CARD REHAB PHASE 2 [facility] During your visit today, we recorded the following information about you: Avelino Aburto, Shank Faker 10/28/2023 8:12 AM Signed [facility] [...] Daily Exercise Log will be scanned into [employer] once it is completed. These can be [...] Plan, and education sessions covered. Avelino Aburto, Shank Faker Referring Provider: DEENA FRANCOIS [[id number]] Allergies As of Date: 10/28/2023 (No Active [...] PAIN-UNSPEC [M25.50] 05/20/2006 10/03/2006 SPRAIN SHOULDER/ARM NOS [[id number]] 05/20/2006 10/03/2006 Complete rupture of rotator cuff [...] Encounter Status:Closed by AVELINO ABURTO on 10/28/23 [facility] (MIRI) MARTIN HENSON ([id number]) 1955 M Date Time Provider Department 10/25/23 8:00 AM CARD REHAB PHASE 2 [facility] During your visit today, we recorded the following information about you: Avelino Aburto, Shank Faker 10/25/2023 8:19 AM [facility]igned [facility] [...] Daily Exercise Log will be scanned into [employer] once it is completed. These can be [...] Plan, and education sessions covered. Avelino Aburto, Shank Faker Referring Provider: DEENA FRANCOIS [[id number]] Allergies As of Date: 10/25/2023 (No Active Allergies) Date Reviewed: 09/18/2023 Reviewed by: Pat Ye HUC - Fully Assessed Reason for Visit: Cardiac Rehab [5530] Primary Visit Diagnosis:S/P AVR (aortic valve replacement) [...] PAIN-UNSPEC [M25.50] 05/20/2006 10/03/2006 SPRAIN SHOULDER/ARM NOS [[id number]] 05/20/2006 10/03/2006 Complete rupture of rotator cuff [...] Encounter Status:Closed by AVELINO ABUR[facility] Office Visit (MIRI) MARTIN HENSON ([id number]) 1955 M Date Time Provider Department 10/23/23 8:00 AM CARD REHAB PHASE 2 [facility] During your visit today, we recorded the following information about you: Josiah Suh, property maintenance technician 10/23/2023 8:09 AM Signed [facility] [...] Daily Exercise Log will be scanned into [employer] once it is completed. These can be [...] Plan, and education sessions covered. Josiah Suh, Shank Faker Referring Provider: DEENA FRANCOIS [[id number]] Allergies As of Date: 10/23/2023 (No Active Allergies) Date Reviewed: 09/18/2023 Reviewed by: Pat Ye HUC - Fully Assessed Reason for Visit: Cardiac Rehab [3841] Primary Visit Diagnosis:S/P AVR (aortic valve replacement) [...] PAIN-UNSPEC [M25.50] 05/20/2006 10/03/2006 SPRAIN SHOULDER/ARM NOS [[id number]] 05/20/2006 10/03/2006 Complete rupture of rotator cuff [...] Encounter Status:Closed by JOSIAH SUH on 10/23/23 [facility] Office Visit (MIRI) SENGROSS A ([id number]) 1955 M Date Time Provider Department 10/21/23 8:00 AM CARD REHAB PHASE 2 [facility] During your visit today, we recorded the following information about you: Avelino Aburto, Shank Faker 10/21/2023 8:17 AM [facility]igned [facility] [...] Daily Exercise Log will be scanned into [employer] once it is completed. These can be [...] Plan, and education sessions covered. Avelino Aburto, Shank Faker Referring Provider: DEENA FRANCOIS [[id number]] Allergies As of Date: 10/21/2023 (No Active Allergies) Date Reviewed: 09/18/2023 Reviewed by: Pat Ye HUC - Fully Assessed Reason for Visit: Cardiac Rehab [[id number]] Primary Visit Diagnosis:S/P AVR (aortic valve replacement) [...] PAIN-UNSPEC [M25.50] 05/20/2006 10/03/2006 SPRAIN SHOULDER/ARM NOS [[id number]] 05/20/2006 10/03/2006 Complete rupture of rotator cuff [...] Encounter Status:Closed by AVELINO ABURTO on 10/21/23 [facility] 10-18-2023 [facility] Office Visit (MIRI) MARTIN HENSON ([id number]) 1955 M Date Time Provider Department 10/18/23 8:00 AM CARD REHAB PHASE 2 [facility] During your visit today, we recorded the following information about you: Avelino Aburto, Shank Faker 10/18/2023 8:19 AM Signed [facility] [...] Daily Exercise Log will be scanned into [employer] once it is completed. These can be [...] Plan, and education sessions covered. Avelino Aburto, Shank Faker Referring Provider: DEENA FRANCOIS [[id number]] Allergies As of Date: 10/18/2023 (No Active Allergies) Date Reviewed: 09/18/2023 Reviewed by: Pat eY HUC - Fully Assessed Reason for Visit: [...] PAIN-UNSPEC [M25.50] 05/20/2006 10/03/2006 SPRAIN SHOULDER/ARM NOS [[id number]] 05/20/2006 10/03/2006 Complete rupture of rotator cuff [...] Encounter Status:Closed by [facility]ELINO [facility] Office Visit (MIRI) MARTIN HENSON ([id number]) 1955 M Date Time Provider Department 10/16/23 8:00 AM CARD REHAB PHASE 2 [facility] During your visit today, we recorded the following information about you: Josiah Suh, property maintenance technician 10/16/2023 8:13 AM Signed [facility] [...] Daily Exercise Log will be scanned into [employer] once it is completed. These can be [...] Plan, and education sessions covered. Josiah Suh, Shank Faker Referring Provider: DEENA FRANCOIS [[id number]] Allergies As of Date: 10/16/2023 (No Active Allergies) Date Reviewed: 09/18/2023 Reviewed by: Pat Ye HUC - Fully Assessed Reason for Visit: Cardiac Rehab [[id number]] Primary Visit Diagnosis:S/P AVR (aortic valve replacement) [...] PAIN-UNSPEC [M25.50] 05/20/2006 10/03/2006 SPRAIN SHOULDER/ARM NOS [[id number]] 05/20/2006 10/03/2006 Complete rupture of rotator cuff [...] Encounter Status:Closed by JOSIAH SUH on 10/16/23 [facility] 10-14-2023 [facility] Office Visit (MIRI) MARTIN HENSON ([id number]) 1955 M Date Time Provider Department 10/14/23 8:00 AM CARD REHAB PHASE 2 [facility] During your visit today, we recorded the following information about you: Avelino Aburto, Shank Faker 10/14/2023 8:09 AM Signed [facility] [...] Daily Exercise Log will be scanned into [employer] once it is completed. These can be [...] Plan, and education sessions covered. Avelino Aburto, Shank Faker Referring Provider: DEENA FRANCOIS [[id number]] Allergies As of Date: 10/14/2023 (No Active [...] PAIN-UNSPEC [M25.50] 05/20/2006 10/03/2006 SPRAIN SHOULDER/ARM NOS [[id number]] 05/20/2006 10/03/2006 Complete rupture of rotator cuff [...] Encounter Status:Closed by AVELINO ABURTO on 10/14/23 [facility] Office Visit (MRII) HENSONMARTIN MODI ([id number]) 1955 M Date Time Provider Department 10/11/23 8:00 AM CARD REHAB PHASE 2 [facility] During your visit today, we recorded the following information about you: Avelino Aburto, Shank Faker 10/11/2023 8:10 AM Signed [facility] [...] Daily Exercise Log will be scanned into [employer] once it is completed. These can be [...] Plan, and education sessions covered. Avelino Aburto, Shank Faker Referring Provider: DEENA FRANCOIS [[id number]] Allergies As of Date: 10/11/2023 (No Active Allergies) Date Reviewed: 09/18/2023 Reviewed by: Pat Ye HUC - Fully Assessed Reason for Visit: Cardiac Rehab [[id number]] Primary Visit Diagnosis:S/P AVR (aortic valve replacement) [...] PAIN-UNSPEC [M25.50] 05/20/2006 10/03/2006 SPRAIN SHOULDER/ARM NOS [[id number]] 05/20/2006 10/03/2006 Complete rupture of rotator cuff [...] Encounter Status:Closed by AVELINO ABURTO on 10/11/23 [facility] 10-09-2023 [facility] Office Visit (MIRI) SENGMARTIN ([id number]) 1955 M Date Time Provider Department 10/09/23 10:00 AM [facility] EXERCISE DONALDSON MIRI During your visit today, we recorded the following information about you: Pulse Blood pressure Weight Height 90/minute 118/80 112.9 kg 1.854 m Isela Davis, Shank Faker 10/09/2023 10:50 AM [facility] Sylmar Osman Lin Department of Cardiovascular Medicine Initial [...] 32.85 kg/(m2). INDIVIDUAL TREATMENT PLAN Program Location: [place] [facility] evaluation site : [facility] Card[facility] Re[facility] Completed : [place] Program: Entry Phase II Primary Reason For [...] strictly adher (more content not included)... Normal [facility] CNOVon 09-18-2023 [facility] Office Visit (CARCMN ) MARTIN HENSON ([id number]) 1955 M Date Time Provider Department 09/18/23 3:15 PM DEENA FRANCOIS During your visit today, we recorded the following information about you: Pulse Blood pressure Weight Height 86/minute 147/86 111.1 kg 1.854 m Deena Francois MD 09/22/2023 2:22 PM Signed [facility] Department of Cardiovascular Medicine SECTION OF CLINICAL CARDIOLOGY OUTPATIENT VISIT DATE September 18, 2023 OUTPATIENT VISIT TYPE ESTABLISHED PRIMARY CARE PHYSICIAN: ABDIEL MATHEWS [id number] [id number] REFERRING PHYSICIAN: No referring provider defined for [...] Lido patches. Dispo - 67[place] [address]. No dc needs. CM following. OPD and [...] mild surgic (more content not included)... Normal [facility] ECG COMPLETEon 09-18-2023 ECG COMPLETE Ventricular Rate : 7 9 BPM Atrial Rate : 79 BPM P-R Interval : 160 ms QRS Duration : 112 ms Q-T Interval : 406 ms QTC Calculation(Bazett) : 465 ms Calculated P Taft : 65 degrees Calculated R Taft : 5 degrees Calculated T Taft : 162 degrees NORMAL SINUS RHYTHM LEFT VENTRICULAR HYPERTROPHY WITH REPOLARIZATION ABNORMALITY ( Sokolow-Salcedo ) POSSIBLE INFERIOR MYOCARDIAL INFARCTION , AGE UNDETERMINED ABNORMAL ECG Confirmed by BAIRON MIR MD ([id number]) on 09/29/2023 5:36:55 PM NAME : MARTIN HENSON PID : [id number] : 1955 Gender : Male Race : ORD : [id number] Procedure Date : Sep 18 2023 13:51:19 [...] , Acquired by : EFREN BRADY Normal [facility] Fernando 09-03-2023 [facility] Telephone ([place]) MARTIN HENSON ([id number]) 1955 M Date Time Provider Department 09/03/23 JUSTO MEHTA During your visit today, we recorded the following information about you: Justo Mehta APRN.JAVASCRIPT PROGRAMMER 09/03/2023 11:01 AM Signed I called the [...] times a day. Authorizing Provider: JUSTO MEHTA APRN.JAVASCRIPT PROGRAMMER Allergies As of Date: 09/03/2023 (No Active [...] PAIN-UNSPEC [M25.50] 05/20/2006 10/03/2006 SPRAIN SHOULDER/ARM NOS [[id number]] 05/20/2006 10/03/2006 Complete rupture of rotator cuff [...] Status:Closed by JUSTO MEHTA on 09/03/23 [facility]EN[facility] ([id number]) 1955 M Date Time Provider Department 09/03/23 USHA NAVARRO HVICTR During your visit today, we recorded the following information about you: Sukumar Sarabia I, MARCUS 09/03/2023 8:34 AM Signed [facility] Contact Center Inbound Phone Encounter DATE of SERVICE: 09/03/2023 TIME of SERVICE: 8:26 AM Status: Non-urgent, needs attention Service/Provider: Cardiac Surgery Usha Navarro M.D. Reason for call: Incisions Contact information: [phone] Resolution: Reinforced education [facility] Comments: Pt calling. States that approximately a [...] Pt asked to send in picture via [employer]. Also advised to see if local PCP could see him today. Pt willing to drive to if he can be seen here if need be. Please advise pt after reviewing [employer] picture that he will send in. Sukumar [...] PAIN-UNSPEC [M25.50] 05/20/2006 10/03/2006 SPRAIN SHOULDER/ARM NOS [[id number]] 05/20/2006 10/03/2006 Complete rupture of rotator cuff [...] by SUKUMAR BERUMEN I on 09/03/23 Normal [facility] Rene XR CHEST 2V FRONTAL/LATon [facility] Laboratory - Microbiology an d Antimicrobial susceptibilityon 07-25-2023 S. aureus and MRSA panel BREANN+probe (Nose) Negative Negative [facility] Absolute lymphocyte countOrd ered By: Singh Barrientos on 05-21-2023 Lymphocytes Auto (Unsp spec) [#/Vol] 1.67 10*3/uL 0.83-4.51 [facility] Basophil percentageOrdered B y: Singh Barrientos on 05-21-2023 Basophils/100 WBC (Bld) 1.3 % 0-1 [facility] Chloride [Moles/Vol] 106 mmol/L 98-107 [facility] Eosinophils/100 WBC (Bld) 5.4 % 0-5 [facility] Glucose [Mass/Vol] 153 mg/dL 74-106 [facility] Comment on above: Fasting Glucose resu lt greater than or equal to 126 mg/dL suggests DIABETES MELLITUS per A.D.A. criteria. Neutrophils (Bld) [#/Vol] 3.5 10*3/uL 2.0-7.7 [facility] Neutrophils/100 WBC (Bld) 56.3 % 47-70 [facility] Potassium [Moles/Vol] 4.6 mmol/L 3.5-5.1 [facility] Sodium [Moles/Vol] 138 mmol/L 136-145 [facility] WBC (Bld) [#/Vol] 6.2 10*3/uL 4.4-11.0 [facility] Blood erythrocytes count (nu mber/volume)Ordered By: Singh Barrientos on 05-21-2023 RBC (Bld) [#/Vol] 4.96 10*6/uL 4.6-6.2 [facility] Blood hemoglobin measurement (mass/volume)Ordered By: Singh Barrientos on 05-21-2023 Hemoglobin (Bld) [Mass/Vol] 15.7 g/dL 13.0-16.5 [facility] Blood lymphocytes/100 leukoc ytesOrdered By: Singh Barrientos on 05-21-2023 Lymphocytes/100 WBC (Bld) 26.8 % 19-41 [facility] Blood monocytes/100 leukocyt esOrdered By: Singh Barrientos on 05-21-2023 Monocytes/100 WBC (Bld) 9.9 % 0-10 [facility] Blood platelet mean volumeOr dered By: Singh Barrientos on 05-21-2023 Platelet mean volume (Bld) [Entitic vol] 10.4 fL 6.2-12.0 [facility] Determination of erythrocyte mean corpuscular volume (MCV)Ordered By: Singh Barrientos on 05-21-2023 MCV (RBC) [Entitic vol] 92.9 fL 80-94 [facility] Hematocrit Auto (Bld) [Volum e fraction]Ordered By: Singh Barrientos on 05-21-2023 Hematocrit (Bld) [Volume fraction] 46.1 % 40-54 [facility] INR in Blood by Coagulation assayOrdered By: Singh Barrientos on 05-21-2023 INR Coag (Bld) [Relative time] 1.1 {INR} [facility] Laboratory - Chemistry and C hemistry - challengeOrdered By: Singh Barrientos on 05-21-2023 CO2 [Moles/Vol] 32.0 mmol/L 21.0-32.0 [facility] Urea nitrogen/Creatinine [Mass ratio] 16.5 mg/mg 10-20 [facility] Laboratory - CoagulationOrde red By: Singh Barrientos on 05-21-2023 aPTT Coag (Bld) [Time] 32.2 s 24.1-36.2 [facility] PT Coag (PPP) [Time] 14.1 s 11.7-14.9 [facility] Laboratory - Hematology and Cell countsOrdered By: Singh Barrientos on 05-21-2023 Erythrocyte distribution width (RBC) [Entitic vol] 42.0 fL 35.1-43.9 [facility] Erythrocyte distribution width (RBC) [Ratio] 12.3 % 11.6-14.6 [facility] Immature granulocytes/100 WBC (Bld) 0.300 % 0.0-0.9 [facility] Comment on above: IG% - Immature Granu locytes (promyelocytes, myelocytes and metamyelocytes) > 1% indicates that a LEFT SHIFT is Present. MCH (RBC) [Entitic mass] 31.7 pg 27.0-32.0 [facility] Nucleated RBC/100 WBC (Bld) [Ratio] 0 % 0-5 [facility] MCHC Auto (RBC) [Mass/Vol]Or dered By: Singh Barrientos on 05-21-2023 MCHC (RBC) [Mass/Vol] 34.1 g/dL 32-36 [facility] No Panel InformationOrdered By: Singh Barrientos on 05-21-2023 Estimated GFR (MDRD) Amer 93 mL/min >60 [facility] Comment on above: GFR Calc Estimated GFR (MDRD) Non-Af Amer 76 mL/min >60 [facility] Comment on above: Non- GFR Calc Platelets bldOrdered By: Darrion Barrientos on 05-21-2023 Platelets (Bld) [#/Vol] 158 10*3/uL 150-450 [facility] Serum or plasma calcium kely urement (mass/volume)Ordered By: Singh Barrientos on 05-21-2023 Calcium [Mass/Vol] 9.0 mg/dL 8.5-10.1 [facility] Serum or plasma creatinine m easurement (mass/volume)Ordered By: Singh Barrientos on 05-21-2023 Creatinine [Mass/Vol] 1.03 mg/dL 0.70-1.30 [facility] Comment on above: The validity of the calculated GFR & GFRAA in patients over 70 years has not been determined. Clinical correlation is essential. Serum or plasma urea nitroge n measurement (mass/volume)Ordered By: Singh Barrientos on 05-21-2023 Urea nitrogen [Mass/Vol] 17 mg/dL 7-18 [facility] Thin prep Papanicolaou smear with manual screeningOrdered By: Singh Barrientos on 05-21-2023 Thin prep Papanicolaou smear with manual screening 0 5-15 [facility] MRI CARD MORPH FUNC WO/W IVC ONon 12-21-2022 MRI CARD MORPH FUNC WO/W IVCON * * *Final Report* * * DATE OF EXAM: Dec 21 2022 10:30AM [facility] [id number] - MRI CARD MORPH FUNC WO/W IVCON / PROCEDURE REASON: Q23.1, I35.0, I42.9 * * * * Physician Interpretation * * * * Cardiac MRI Report: [facility] Date of service: 12/21/2022 9:00:52 AM Linked orders:[id number] CARD MORPH FUNC WO/W IVCON;. Ordering physician: [...] seen. Regurgitant (more content not included)... Normal [facility] MRI CARDIAC VELOCITY FLOW MA Cheko 12-21-2022 [...] for Phase velocity mapping Heraclio Fine MD Laborer [place]: [facility] Transcribe Date/Time: Jun 27 2023 9:11P Dictated by : HERACLIO FINE MD This examination was interpreted and the report reviewed and electronically signed by: HERACLIO FINE MD on Jun 27 2023 9:15PM EST [id number] Normal [facility] ([id number]) 1955 M Date Time Provider Department 12/07/22 [...] sure that the SVC appears as a sauk-suiattle/oval (if the SVC is not seen on [...] PAIN-UNSPEC [M25.50] 05/20/2006 10/03/2006 SPRAIN SHOULDER/ARM NOS [[id number]] 05/20/2006 10/03/2006 Complete rupture of rotator cuff [M75.120] 10/03/2006 Obesity (BMI 30-39.9) [E66.9] 02/16/2011 Special screening for malignant neoplasms, colo*03/13/2011 Encounter Status:Closed by CHARLOTTE GARCIA on 12/07/22 Normal [facility] Absolute lymphocyte counton 07-31-2022 Lymphocytes Auto (Unsp spec) [#/Vol] 1.53 10*3/uL 0.83-4.51 [facility] Work Phone: [phone] Basophil percentageon 2021 Basophils/100 WBC (Bld) 0.9 % 0-1 [facility] Work Phone: Eosinophils/100 WBC (Bld) 3.7 % 0-5 [facility] Work Phone: Neutrophils (Bld) [#/Vol] 5.5 10*3/uL 2.0-7.7 [facility] Work Phone: [phone] Neutrophils/100 WBC (Bld) 67.6 % 47-70 [facility] Work Phone: WBC (Bld) [#/Vol] 8.1 10*3/uL 4.4-11.0 [facility] Work Phone: Blood erythrocytes count (nu mber/volume)on 07-31-2022 RBC (Bld) [#/Vol] 5.24 10*6/uL 4.6-6.2 [facility] Work Phone: Blood hemoglobin measurement (mass/volume)on 07-31-2022 Hemoglobin (Bld) [Mass/Vol] 15.9 g/dL 13.0-16.5 [facility] Work Phone: Blood lymphocytes/100 leukoc yteson 07-31-2022 Lymphocytes/100 WBC (Bld) 18.9 % 19-41 [facility] Work Phone: Blood monocytes/100 leukocyt eson 07-31-2022 Monocytes/100 WBC (Bld) 8.5 % 0-10 [facility] Work Phone: Blood platelet mean volumeon 07-31-2022 Platelet mean volume (Bld) [Entitic vol] 10.1 fL 6.2-12.0 [facility] Work Phone: Determination of erythrocyte mean corpuscular volume (MCV)on 07-31-2022 MCV (RBC) [Entitic vol] 91.0 fL 80-94 [facility] Work Phone: Hematocrit Auto (Bld) [Volum e fraction]on 07-31-2022 Hematocrit (Bld) [Volume fraction] 47.7 % 40-54 [facility] Work Phone: INR in Blood by Coagulation assayon 07-31-2022 INR Coag (Bld) [Relative time] 1.1 {INR} [facility] Work Phone: Laboratory - Coagulationon 1 09-30-2021 aPTT Coag (Bld) [Time] 29.9 s 24.1-36.2 [facility] Work Phone: PT Coag (PPP) [Time] 13.5 s 11.7-14.9 [facility] Work Phone: Laboratory - Hematology and Cell countson 07-31-2022 Erythrocyte distribution width (RBC) [Entitic vol] 40.6 fL 35.1-43.9 [facility] Work Phone: Erythrocyte distribution width (RBC) [Ratio] 12.3 % 11.6-14.6 [facility] Work Phone: Immature granulocytes/100 WBC (Bld) 0.400 % 0.0-0.9 [facility] Work Phone: Comment on above: IG% - Immature Granu locytes (promyelocytes, myelocytes and metamyelocytes) > 1% indicates that a LEFT SHIFT is Present. MCH (RBC) [Entitic mass] 30.3 pg 27.0-32.0 [facility] Work Phone: Nucleated RBC/100 WBC (Bld) [Ratio] 0 % 0-5 [facility] Work Phone: MCHC Auto (RBC) [Mass/Vol]on 07-31-2022 MCHC (RBC) [Mass/Vol] 33.3 g/dL 32-36 [facility] Work Phone: Platelets bldon 07-31-2022 Platelets (Bld) [#/Vol] 185 10*3/uL 150-450 [facility] Work Phone: 24 hour urine albumin/total protein ratio by electrophoresis (mass fraction)on 07-25-2022 Albumin Elph (24H U) [Mass fraction] 23.1 % . [facility] Work Phone: 24 hour urine alpha 1 globul in/total protein ratio by electrophoresis (mass fraction)on 07-25-2022 Alpha 1 globulin Elph (24H U) [Mass fraction] 4.0 % . [facility] Work Phone: 24 hour urine alpha 2 globul in/total protein ratio by electrophoresis (mass fraction)on 07-25-2022 Alpha 2 globulin Elph (24H U) [Mass fraction] 15.0 % . [facility] Work Phone: Absolute lymphocyte counton 07-25-2022 Lymphocytes Auto (Unsp spec) [#/Vol] 1.69 10*3/uL 0.83-4.51 [facility] Work Phone: [phone] Albumin Elph [Mass/Vol]on Albumin [Mass/Vol] 4.2 g/dL 2.9-4.4 [facility] Work Phone: Basophil percentageon 2021 Basophil percentage 0 SEEN /hpf 0-5 [facility] Work Phone: [phone] Basophils/100 WBC (Bld) 1.0 % 0-1 [facility] Work Phone: Bilirubin [Mass/Vol] 0.40 mg/dL 0.20-1.00 [facility] Work Phone: [phone] Comment on above: For patients on eltr ombopag therapy, use of Dimension Irene TBIL is not recommended. Chloride [Moles/Vol] 105 mmol/L 98-107 [facility] Work Phone: [phone] Eosinophils/100 WBC (Bld) 3.7 % 0-5 [facility] Work Phone: Glucose [Mass/Vol] 122 mg/dL 74-106 [facility] Work Phone: Comment on above: Fasting Glucose resu lt from 100 to 125 mg/dL suggests IMPAIRED HOMEOSTASIS per A.D.A. criteria. Neutrophils (Bld) [#/Vol] 4.5 10*3/uL 2.0-7.7 [facility] Work Phone: [phone] Neutrophils/100 WBC (Bld) 61.5 % 47-70 [facility] Work Phone: [phone] Potassium [Moles/Vol] 4.1 mmol/L 3.5-5.1 [facility] Work Phone: Protein [Mass/Vol] 7.7 g/dL 6.4-8.2 [facility]: Sodium [Moles/Vol] 141 mmol/L 136-145 [facility] Work Phone: WBC (Bld) [#/Vol] 7.2 10*3/uL 4.4-11.0 [facility] Work Phone: Bilirubin Test strip Ql (U)o n 07-25-2022 Bilirubin Ql (U) Negative Negative [facility] Work Phone: Blood erythrocytes count (nu mber/volume)on 07-25-2022 RBC (Bld) [#/Vol] 5.18 10*6/uL 4.6-6.2 [facility] Work Phone: Blood hemoglobin measurement (mass/volume)on 07-25-2022 Hemoglobin (Bld) [Mass/Vol] 16.1 g/dL 13.0-16.5 [facility] Work Phone: Blood lymphocytes/100 leukoc yteson 07-25-2022 Lymphocytes/100 WBC (Bld) 23.3 % 19-41 [facility] Work Phone: [phone] Blood monocytes/100 leukocyt eson 07-25-2022 Monocytes/100 WBC (Bld) 10.2 % 0-10 [facility] Work Phone: Blood platelet mean volumeon 07-25-2022 Platelet mean volume (Bld) [Entitic vol] 10.3 fL 6.2-12.0 [facility] Work Phone: Determination of erythrocyte mean corpuscular volume (MCV)on 07-25-2022 MCV (RBC) [Entitic vol] 90.7 fL 80-94 [facility] Work Phone: Hematocrit Auto (Bld) [Volum e fraction]on 07-25-2022 Hematocrit (Bld) [Volume fraction] 47.0 % 40-54 [facility] Work Phone: Interpretation of serum or p lasma protein pattern by immunofixation (narrative resulton 07-25-2022 Protein Fractions Immunofixation Leo [Interp] See comment [facility] Work Phone: Comment on above: Result: Not Observed Ketones Test strip Ql (U)on 07-25-2022 Ketones Ql (U) Negative Negative [facility] Work Phone: Laboratory - Chemistry and C hemistry - challengeon 07-25-2022 ALP [Catalytic activity/Vol] 65 U/L 45-117 [facility] Work Phone: ALT [Catalytic activity/Vol] 67 U/L 16-61 [facility] Work Phone: CO2 [Moles/Vol] 29.0 mmol/L 21.0-32.0 [facility] Work Phone: Urea nitrogen/Creatinine [Mass ratio] 20.8 mg/mg 10-20 [facility] Work Phone: Laboratory - Hematology and Cell countson 07-25-2022 Erythrocyte distribution width (RBC) [Entitic vol] 40.8 fL 35.1-43.9 [facility] Work Phone: Erythrocyte distribution width (RBC) [Ratio] 12.2 % 11.6-14.6 [facility] Work Phone: Immature granulocytes/100 WBC (Bld) 0.300 % 0.0-0.9 [facility] Work Phone: Comment on above: IG% - Immature Granu locytes (promyelocytes, myelocytes and metamyelocytes) > 1% indicates that a LEFT SHIFT is Present. MCH (RBC) [Entitic mass] 31.1 pg 27.0-32.0 [facility] Work Phone: Nucleated RBC/100 WBC (Bld) [Ratio] 0 % 0-5 [facility] Work Phone: MCHC Auto (RBC) [Mass/Vol]on 07-25-2022 MCHC (RBC) [Mass/Vol] 34.3 g/dL 32-36 [facility] Work Phone: Mucus LM Ql (Urine sed)on Mucus Ql (Urine sed) 0 SEEN /hpf [facility] Work Phone: Nitrite Test strip Ql (U)on 07-25-2022 Nitrite Ql (U) Negative Negative [facility] Work Phone: No Panel Informationon 07-25 Addendum Document Comment . [facility] Work Phone: Comment on above: Protein electrophore sis scan will follow via computer,mail, or manager of sales delivery. Estimated GFR (MDRD) Amer 95 mL/min >60 [facility] Work Phone: Comment on above: GFR Calc Estimated GFR (MDRD) Non-Af Amer 78 mL/min >60 [facility] Work Phone: Comment on above: Non- GFR Calc Free Lambda Light Chains, Quant 13.9 mg/L 5.7-26.3 [facility] Work Phone: Urine Immunofixation PEP Note Comment . [facility] Work Phone: Comment on above: Protein electrophore sis scan will follow via computer,mail, or manager of sales delivery. Platelets bldon 07-25-2022 Platelets (Bld) [#/Vol] 191 10*3/uL 150-450 [facility] Work Phone: Protein Test strip Ql (U)on 07-25-2022 Protein Ql (U) Negative Negative [facility] Work Phone: Serum [id number] measu rement by electrophoresison 07-25-2022 Alpha 1 globulin Elph [Mass/Vol] 0.2 g/dL 0.0-0.4 [facility] Work Phone: Alpha 1 globulin Elph [Mass/Vol] 0.7 g/dL 0.4-1.0 [facility] Work Phone: [phone] Serum globulin measurement ( mass/volume)on 07-25-2022 Globulin (S) [Mass/Vol] 3.1 g/dL 2.2-3.9 [facility] Work Phone: Serum immunoglobulin kappa l ight chains/immunoglobulin lambda light chains mass ratioon 07-25-2022 Immunoglobulin light chains.kappa/Immunoglob ulin light chains.lambda (S) [Mass ratio] 1.40 0.26-1.65 [facility] Work Phone: Comment on above: Performed at: [place] [id number] Director: Dorian Cantrell PhD, Phone: [phone] Serum or plasma IgA measurem ent (mass/volume)on 07-25-2022 IgA [Mass/Vol] 97 mg/dL 61-437 [facility] Work Phone: Serum or plasma IgG measurem ent (mass/volume)on 07-25-2022 IgG [Mass/Vol] 1021 mg/dL [phone] [facility] Work Phone: Serum or plasma IgM measurem ent (mass/volume)on 07-25-2022 IgM [Mass/Vol] 78 mg/dL 20-172 [facility] Work Phone: Serum or plasma albumin kely urement (mass/volume)on 07-25-2022 Albumin [Mass/Vol] 4.4 g/dL 3.2-5.0 [facility] Work Phone: Serum or plasma albumin/glob ulin mass ratioon 07-25-2022 Albumin/Globulin [Mass ratio] 1.3 {ratio} 0.9-2.4 [facility] Work Phone: Serum or plasma beta globuli n measurement by electrophoresis (mass/volume)on 07-25-2022 Beta globulin Elph [Mass/Vol] 1.0 g/dL 0.7-1.3 [facility] Work Phone: Serum or plasma calcium kely urement (mass/volume)on 07-25-2022 Calcium [Mass/Vol] 9.6 mg/dL 8.5-10.1 [facility] Work Phone: Serum or plasma creatinine m easurement (mass/volume)on 07-25-2022 Creatinine [Mass/Vol] 1.01 mg/dL 0.70-1.30 [facility] Work Phone: Comment on above: The validity of the calculated GFR & GFRAA in patients over 70 years has not been determined. Clinical correlation is essential. Serum or plasma gamma globul in measurement by electrophoresis (mass/volume)on 07-25-2022 Gamma globulin Elph [Mass/Vol] 1.2 g/dL 0.4-1.8 [facility] Work Phone: Serum or plasma immunoelectr ophoresis interpretation (nominal result)on 07-25-2022 Interpretation IEP [Interp] Comment . [facility] Work Phone: Comment on above: No monoclonality det ected. Serum or plasma immunoglobul in kappa light chains measurement (mass/volume)on 07-25-2022 Immunoglobulin light chains.kappa [Mass/Vol] 19.5 mg/L 3.3-19.4 [facility] Work Phone: Serum or plasma urea nitroge n measurement (mass/volume)on 07-25-2022 Urea nitrogen [Mass/Vol] 21 mg/dL 7-18 [facility] Work Phone: Squamous epithelial cells de tection in urine sediment by light microscopyon 07-25-2022 Epithelial cells.squamous LM Ql (Urine sed) 0 SEEN /hpf 0-5 [facility] Work Phone: Thin prep Papanicolaou smear with manual screeningon 07-25-2022 Thin prep Papanicolaou smear with manual screening 31 U/L 15-37 [facility] Work Phone: Thin prep Papanicolaou smear with manual screening 7 5-15 [facility] Work Phone: Thin prep Papanicolaou smear with manual screening 231 U/L 87-241 [facility] Work Phone: Thin prep Papanicolaou smear with manual screening 1.4 0.7-1.7 [facility] Work Phone: Thin prep Papanicolaou smear with manual screening Comment . [facility] Work Phone: Comment on above: No monoclonality det ected. Total protein bloodon 2021 Protein [Mass/Vol] 7.3 g/dL 6.0-8.5 [facility] Work Phone: Urine beta globulin measurem ent by electrophoresis (mass/volume)on 07-25-2022 Beta globulin Elph (U) [Mass/Vol] 29.2 % . [facility] Work Phone: Urine blood detectionon 07-10 RBC Ql (U) Negative Negative [facility] Work Phone: RBC Ql (U) 0 SEEN /hpf 0-5 [facility] Work Phone: Urine clarityon 07-25-2022 Clarity (U) Clear Clear [facility] Work Phone: Urine color determinationon 07-25-2022 Color (U) Yellow Yellow [facility] Work Phone: Urine gamma globulin measure ment by electrophoresis (mass/volume)on 07-25-2022 Gamma globulin Elph (U) [Mass/Vol] 28.7 % . [facility] Work Phone: Urine glucose detectionon Glucose Ql (U) Normal mg/dl Normal [facility] Work Phone: Urine leukocyte esterase det ection by dipstickon 07-25-2022 Leukocyte esterase Test strip Ql (U) Negative Negative [facility] Work Phone: Urine monoclonal protein/tot al protein mass ratio by electrophoresison 07-25-2022 Protein.monoclonal Elph (U) [Mass fraction] Not Observed % Not Observed [facility] Work Phone: Urine pHon 07-25-2022 pH (U) 7.0 [pH] 5.0 - 8.0 [facility] Work Phone: Urine protein measurement (m ass/volume)on 07-25-2022 Protein (U) [Mass/Vol] 7.4 mg/dL Not Estab. [facility] Work Phone: Urine sediment bacteria coun t by microscopy (number/high power field)on 07-25-2022 Bacteria LM.HPF (Urine sed) [#/Area] 0 /[HPF] None Seen [facility] Work Phone: Urine specific gravity measu rementon 07-25-2022 Specific gravity (U) [Rel density] 1.015 1.002-1.030 [facility] Work Phone: Urobilinogen Auto test strip Ql (U)on 07-25-2022 Urobilinogen Ql (U) Normal mg/dl Normal [facility] Work Phone: Absolute lymphocyte counton 04-23-2022 Lymphocytes Auto (Unsp spec) [#/Vol] 1.42 10*3/uL 0.83-4.51 [facility] Work Phone: Basophil percentageon 2021 Basophils/100 WBC (Bld) 0.8 % 0-1 [facility] Work Phone: Eosinophils/100 WBC (Bld) 3.5 % 0-5 [facility] Work Phone: Neutrophils (Bld) [#/Vol] 4.7 10*3/uL 2.0-7.7 [facility] Work Phone: Neutrophils/100 WBC (Bld) 66.4 % 47-70 [facility] Work Phone: WBC (Bld) [#/Vol] 7.1 10*3/uL 4.4-11.0 [facility] Work Phone: Bilirubin [Mass/Vol] 0.70 mg/dL 0.20-1.00 [facility] Work Phone: Comment on above: For patients on eltr ombopag therapy, use of Dimension Irene TBIL is not recommended. Chloride [Moles/Vol] 103 mmol/L 98-107 [facility] Work Phone: Cholesterol [Mass/Vol] 122 mg/dL <200 [facility] Work Phone: Comment on above: <200 mg/dL Desirable 200-240 mg/dL Borderline >240 mg/dL High Risk Glucose [Mass/Vol] 108 mg/dL 74-106 [facility] Work Phone: Comment on above: Fasting Glucose resu lt from 100 to 125 mg/dL suggests IMPAIRED HOMEOSTASIS per A.D.A. criteria. Potassium [Moles/Vol] 4.2 mmol/L 3.5-5.1 [facility] Work Phone: Protein [Mass/Vol] 7.7 g/dL 6.4-8.2 [facility] Work Phone: Sodium [Moles/Vol] 138 mmol/L 136-145 [facility] Work Phone: Triglyceride [Mass/Vol] 130 mg/dL <199 [facility] Work Phone: Comment on above: The drugs N-Acetylcy steine and Metamizole may falsely depress this assay.Serum Triglycerides Reference Interval Normal <150 mg/dL Borderline high 150 - 199 mg/dL High 200 - 499 mg/dL Very High > or = 500 mg/dL Blood erythrocytes count (nu mber/volume)on 04-23-2022 RBC (Bld) [#/Vol] 5.33 10*6/uL 4.6-6.2 [facility] Work Phone: Blood hemoglobin measurement (mass/volume)on 04-23-2022 Hemoglobin (Bld) [Mass/Vol] 16.5 g/dL 13.0-16.5 [facility] Work Phone: Blood lymphocytes/100 leukoc yteson 04-23-2022 Lymphocytes/100 WBC (Bld) 19.9 % 19-41 [facility] Work Phone: Blood monocytes/100 leukocyt eson 04-23-2022 Monocytes/100 WBC (Bld) 9.1 % 0-10 [facility] Work Phone: Blood platelet mean volumeon 04-23-2022 Platelet mean volume (Bld) [Entitic vol] 10.4 fL 6.2-12.0 [facility] Work Phone: Determination of erythrocyte mean corpuscular volume (MCV)on 04-23-2022 MCV (RBC) [Entitic vol] 91.9 fL 80-94 [facility] Work Phone: Direct bilirubinon 2 Bilirubin.direct [Mass/Vol] 0.18 mg/dL 0.00-0.30 [facility] Work Phone: Hematocrit Auto (Bld) [Volum e fraction]on 04-23-2022 Hematocrit (Bld) [Volume fraction] 49.0 % 40-54 [facility] Work Phone: Laboratory - Chemistry and C hemistry - challengeon 04-23-2022 ALP [Catalytic activity/Vol] 68 U/L 45-117 [facility] Work Phone: ALT [Catalytic activity/Vol] 81 U/L 16-61 [facility] Work Phone: CO2 [Moles/Vol] 29.0 mmol/L 21.0-32.0 [facility] Work Phone: Globulin (S) [Mass/Vol] 3.7 g/dL 2.2-4.2 [facility] Work Phone: Urea nitrogen/Creatinine [Mass ratio] 13.7 mg/mg 10-20 [facility] Work Phone: Laboratory - Hematology and Cell countson 04-23-2022 Erythrocyte distribution width (RBC) [Entitic vol] 41.4 fL 35.1-43.9 [facility] Work Phone: Erythrocyte distribution width (RBC) [Ratio] 12.2 % 11.6-14.6 [facility] Work Phone: Immature granulocytes/100 WBC (Bld) 0.300 % 0.0-0.9 [facility] Work Phone: Comment on above: IG% - Immature Granu locytes (promyelocytes, myelocytes and metamyelocytes) > 1% indicates that a LEFT SHIFT is Present. MCH (RBC) [Entitic mass] 31.0 pg 27.0-32.0 [facility] Work Phone: Nucleated RBC/100 WBC (Bld) [Ratio] 0 % 0-5 [facility] Work Phone: MCHC Auto (RBC) [Mass/Vol]on 04-23-2022 MCHC (RBC) [Mass/Vol] 33.7 g/dL 32-36 [facility] Work Phone: No Panel Informationon 04-23 Estimated GFR (MDRD) Amer 94 mL/min >60 [facility] Work Phone: Comment on above: GFR Calc Estimated GFR (MDRD) Non-Af Amer 78 mL/min >60 [facility] Work Phone: Comment on above: Non- GFR Calc Thyroid Stimulating Hormone (TSH) 2.88 uIU/mL 0.358-3.74 [facility] Work Phone: Platelets bldon 04-23-2022 Platelets (Bld) [#/Vol] 166 10*3/uL 150-450 [facility] Work Phone: Serum or plasma albumin kely urement (mass/volume)on 04-23-2022 Albumin [Mass/Vol] 4.0 g/dL 3.2-5.0 [facility] Work Phone: Serum or plasma albumin/glob ulin mass ratioon 08-15-2022 Albumin/Globulin [Mass ratio] 1.1 {ratio} 0.9-2.4 [facility] Work Phone: Serum or plasma calcium kely urement (mass/volume)on 04-23-2022 Calcium [Mass/Vol] 9.0 mg/dL 8.5-10.1 [facility] Work Phone: Serum or plasma cholesterol in HDL measurement (mass/volume)on 04-23-2022 Cholesterol in HDL [Mass/Vol] 32 mg/dL >40 [facility] Work Phone: Comment on above: The drugs N-Acetylcy steine and Metamizole may falsely depress this assay. Reference Range HDL <40 mg/dL Low HDL Cholesterol HDL >or= 60 mg/dL High HDL Cholesterol Serum or plasma cholesterol in VLDL measurement (mass/volume)on 04-23-2022 Cholesterol in VLDL [Mass/Vol] 26 mg/dL 5-40 [facility] Work Phone: Serum or plasma creatinine m easurement (mass/volume)on 04-23-2022 Creatinine [Mass/Vol] 1.02 mg/dL 0.70-1.30 [facility] Work Phone: Comment on above: The validity of the calculated GFR & GFRAA in patients over 70 years has not been determined. Clinical correlation is essential. Serum or plasma low density lipoprotein (LDL) cholesterol measurement (mass/volume)on 04-23-2022 Cholesterol in LDL [Mass/Vol] 64 mg/dL 0-130 [facility] Work Phone: Serum or plasma urea nitroge n measurement (mass/volume)on 04-23-2022 Urea nitrogen [Mass/Vol] 14 mg/dL 7-18 [facility] Work Phone: Thin prep Papanicolaou smear with manual screeningon 04-23-2022 Thin prep Papanicolaou smear with manual screening 32 U/L 15-37 [facility] Work Phone: Thin prep Papanicolaou smear with manual screening 6 5-15 [facility] Work Phone: Provider Note - ED v2on [...] better. Patient denies the use of any rdfw-oyb-aazryrb medications or home remedies prior to arrival [...] SIGNS: T PRBP SpO2O2(LPM) %FiO2 Method 27-Oct-2019 08:33:[id number] CLINICAL IMPRESSION Diagnosis/Annotation: ED Dx Name:Acute [...] ill patient: no Electronic Signatures: Shahida Degroot (WORM PACKER-JAVASCRIPT PROGRAMMER) (Signed 27-Oct-2019 09:11) Authored: Provider Note - ED v2 Last Updated: 27-Oct-2019 09:11 by Shahida Degroot (WORM PACKER-JAVASCRIPT PROGRAMMER) [facility] Provider Note - ED v2on Provider Note [...] maxillary pressure with palpation. Patient denies any snar-kpd-eqiuuue medications or home her symptom management. Patient [...] of care. This note was generated using [employer] software. It may contain errors in wording, punctuation, or spelling. CRITICAL CARE TIME Is this a critically ill patient: no Electronic Signatures: Nnamdi Guillaume (WORM PACKER-JAVASCRIPT PROGRAMMER) (Signed 15-Sep-2019 09:57) Authored: Provider Note - ED v2 Last Updated: 15-Sep-2019 09:57 by Nnamdi Guillaume (WORM PACKER-JAVASCRIPT PROGRAMMER) [facility] Lab Report: Lipid Profileon 10-26-2017 Cholesterol 145 mg/dL Invalid Interpretation Code 200 [facility] Work Phone: [phone] HDL Cholesterol 33 mg/dL Low [facility] Work Phone: [phone] LDL Cholesterol 91 mg/dL Invalid Interpretation Code 0-130 [facility] Work Phone: [phone] Triglyceride 103 mg/dL Invalid Interpretation Code [facility] Work Phone: [phone] very low density lipoproteins 21 mg/dL Invalid Interpretation Code 5-40 [facility] Work Phone: [phone] Lab Report: Liver Profileon 10-26-2017 Alanine aminotransferase (ALT) 51 U/L Invalid Interpretation Code 16-61 [facility] Work Phone: [phone] Albumin 4.1 g/dL Invalid Interpretation Code 3.2-5.0 [facility] Work Phone: [phone] Alkaline phosphatase (ALP) 71 U/L Invalid Interpretation Code 45-117 [facility] Work Phone: [phone] Aspartate aminotransferase (AST) 27 U/L Invalid Interpretation Code 15-37 [facility] Work Phone: [phone] Bilirubin (direct) 0.14 mg/dL Invalid Interpretation Code 0.00-0.30 [facility] Work Phone: [phone] Bilirubin (total) 0.50 mg/dL Invalid Interpretation Code 0.20-1.00 [facility] Work Phone: [phone] Globulin 3.2 g/dL Invalid Interpretation Code 2.2-4.2 [employer] Work Phone: [phone] Protein 7.3 g/dL Invalid Interpretation Code 6.4-8.2 [employer] Work Phone: [phone] Office Visiton 05-08-2017 Dietary management education, guidance, and counseling (procedure) yes Invalid Interpretation Code [employer] Work Phone: [phone] Documentation of current medications (procedure) Done Invalid Interpretation Code [employer] Work Phone: [phone] Fall risk assessment No Invalid Interpretation Code [employer] Work Phone: [phone] Protein mass conc Done [employer] Work Phone: [phone] Tobacco smoking status FLIS Tobacco smoking status NHIS Invalid Interpretation Code [employer] Work Phone: [phone] Tobacco smoking status FLIS Never smoker [employer] Work Phone: [phone] Tobacco use [facility] Never smoker Invalid Interpretation Code [employer] Work Phone: [phone] Office Visiton 04-29-2017 Tobacco smoking status FLIS Tobacco smoking status FLIS Invalid Interpretation Code [employer] Work Phone: [phone] Tobacco smoking status [facility] Current [employer] Work Phone: [phone] Microbiology: Culture, Deep Woundon 04-19-2017 [facility] Cult, AnaerobicNo anaerobic bacteria isolated. [employer] Work Phone: [phone] GE use only - for [employer] import when terms are not otherwise specified Cult, AnaerobicNo anaerobic bacteria isolated. Invalid Interpretation Code [employer] Work Phone: [phone] Office Visiton 04-19-2017 Documentation of current medications (procedure) Done Invalid Interpretation Code [employer] Work Phone: [phone] Microbiology: (P) Culture, D eep Woundon 04-18-2017 GE use only - for [employer] import when terms are not otherwise specified Cult, AnaerobicChecking for anaerobes, further studies to follow. Invalid Interpretation Code [employer] Work Phone: [phone] Replaced Document: (P) Cultu re, Deep Woundon 04-18-2017 [facility] Vancomycin $ 1 S [facility] Work Phone: [phone] Lab Report: Basic Metabolic Profile (BMP)on 04-17-2017 Anion gap 7 mmol/L Invalid Interpretation Code 5-15 [facility] Work Phone: [phone] Anion gap molar conc 7 mmol/L 5-15 [facility] Work Phone: [phone] BUN/Creatinine Ratio 17.9 RATIO Invalid Interpretation Code 10-20 [facility] Work [phone] Calcium 8.1 mg/dL Low 8.5-10.1 [facility] Work Phone: [phone] Chloride 101 mmol/L Invalid Interpretation Code 98-107 [facility] Work Phone: [phone] CO2 27.0 mmol/L Invalid Interpretation Code 21.0-32.0 [facility] Work Phone: [phone] CO2 ppres (BldV) 27.0 mmol/L 21.0-32.0 [facility] Work Phone: [phone] Creatinine 1.12 mg/dL Invalid Interpretation Code 0.70-1.30 [facility] Work Phone: [phone] Creatinine 78.28 mL/min Invalid Interpretation Code [facility] Work Phone: [phone] eGFR (non-black) 71 mL/min/{1.73_m2} Invalid Interpretation Code >60 [facility] Work Phone: [phone] eGFR (non-black) 86 mL/min/{1.73_m2} Invalid Interpretation Code >60 [facility] Work Phone: [phone] EST GFR - AA 86 mL/min >60 [facility] Work Phone: [phone] Glucose 148 mg/dL High 70-110 [facility] Work Phone: [phone] Glucose mass conc 148 mg/dL High 70-110 [facility] Work Phone: [phone] Potassium 4.3 mmol/L Invalid Interpretation Code 3.5-5.1 [facility] Work Phone: [phone] Sodium 135 mmol/L Low 136-145 [facility] Work Phone: [phone] Urea nitrogen 20 mg/dL High 7-18 [facility] Work Phone: [phone] Lab Report: CRPon 04-17-2017 C reactive protein (CRP) 3.13 mg/dL High Units converted. See lab report for original value. [facility] Work Phone: [phone] Lab Report: Erythrocyte Sed Rateon 04-17-2017 Erythrocyte sedimentation rate 29 mm/h High 0-20 [facility] Work Phone: [phone] Replaced Document: (P) CBC-C omplete Blood Cnt No Diffon 04-17-2017 Erythrocyte distribution width Ratio (RBC) 42.9 fL 35.1-43.9 [facility] Work Phone: [phone] Erythrocyte distribution width Ratio (RBC) 12.8 % 11.6-14.6 [facility] Work Phone: [phone] Erythrocytes (RBC) 4.48 10*6/uL Low 4.6-6.2 [facility] Work Phone: [phone] Hematocrit (HCT) 41.2 % Invalid Interpretation Code 40-54 [facility] Work Phone: [phone] Hematocrit Volume Fraction (Bld) 41.2 % 40-54 [facility] Work Phone: [phone] Hemoglobin (HGB) 13.6 g/dL Invalid Interpretation Code 13.0-16.5 [facility] Work Phone: [phone] MCH 30.4 pg Invalid Interpretation Code 27.0-32.0 [facility] Work Phone: [phone] MCH Entitic mass (RBC) 30.4 pg 27.0-32.0 [facility] Work Phone: 1() 0 MCHC 33.0 G/GL Invalid Interpretation Code 32-36 [facility] Work Phone: 1() 0 MCHC mass conc (RBC) 33.0 G/GL 32-36 [facility] Work Phone: 1() 0 MCV 92.0 fL Invalid Interpretation Code 80-94 [facility] Work Phone: 1() 0 MCV Entitic volume (RBC) 92.0 fL 80-94 [facility] Work Phone: 1() 0 Platelet mean volume Entitic volume (Bld) 9.5 fL 6.2-12.0 [facility] Work Phone: 1() 0 Platelets 212 10*3/mm3 Invalid Interpretation Code 150-450 [facility] Work Phone: 1() 0 Platelets #/vol (Bld) 212 10*3/mm3 150-450 [facility] Work Phone: 1() 0 PMV by Poornima 9.5 fL Invalid Interpretation Code 6.2-12.0 [facility] Work Phone: 1() 0 RBC #/vol (Bld) 4.48 10*6/uL Low 4.6-6.2 [facility] Work Phone: 1() 0 RDW-CA 12.8 % Invalid Interpretation Code 11.6-14.6 [facility] Work Phone: [phone] red blood cell distribution width, size density 42.9 fL Invalid Interpretation Code 35.1-43.9 [facility] Work Phone: 1() 0 WBC #/vol (Bld) 15.2 10*3/uL High 4.4-11.0 [facility] Work Phone: [phone]) [phone] WBC (Leukocytes) 15.2 10*3/uL High 4[facility]4-11.[facility] Work Phone: [phone] Lab Report: Lipid Profileon 04-16-2017 Cholesterol 133 mg/dL [address] [facility] Work Phone: [phone] HDL Ch[facility] 35 mg[facility] Work Phone: [phone] LDL Cholesterol 74 mg/dL 0-130 [facility] Work Phone: [phone] Triglyceride 120 mg/dL [facility] Work Phone: [phone] very low density lipoproteins 24 mg/dL 5-40 [facility] Work Phone: [phone] Lab Report: Liver Profileon 04-16-2017 Alanine aminotransferase (ALT) 48 U/L 12-78 [facility] Work Phone: [phone] Albumin 3.6 g/dL 3.4-5.0 [facility] [facility] Work Phone: [phone] Alkaline phosphatase (ALP) 83 U/L Invalid Interpretation Code 45-117 [facility] Work Phone: [phone] ALP enzyme act/vol (Bld) 83 U/L 45-117 [facility] Work Phone: [phone] Aspartate aminotransferase (AST) 17 U/L 15-37 [facility] Work Phone: [phone] Bilirubin (direct) 0.16 mg/dL [facility].00-[facility]: [phone] Bilirubin (total) 0.60 mg/dL 0.20-[facility].00 [facility] Work Phone: [phone] Globulin 4.2 g/dL High 2.3-3.5 [facility] Work Phone: [phone] Globulin mass conc (S) 4.2 g/dL High 2.3-3.[address] [facility] Work Phone: [phone] Protein 7.8 g/dL 6.4-8.2 [facility] Work Phone: [phone] Microbiology: (P) Culture, D eep Woundon 04-16-2017 GE use only - for LinkLogic import when terms are not otherwise specified . Invalid Interpretation Code [facility] Work Phone: [phone] Office Visiton 04-15-2017 Dietary management education, guidance, and counseling (procedure) yes Invalid Interpretation Code [facility] Work Phone: [phone] Documentation of current medications (procedure) Done Invalid Interpretation Code [facility] Work Phone: [phone] Protein mass conc Done [facility] Work Phone: [phone] Tobacco smoking status NHIS Current Invalid Interpretation Code [facility] Work Phone: [phone] Tobacco smoking status NHIS Never smoker [facility] Work Phone: [phone] Tobacco use CPHS Never smoker Invalid Interpretation Code [facility] Work Phone: [phone] Clinical Lists Update: Prelo stove refinisher 11-14-2016 Left ventricular Ejection fraction 70 % Invalid Interpretation Code [facility] Work Phone: [phone] Replaced Document: Yohana Bassett CG Observationson 11-02-2016 EKG QRS axis 2 deg [facility] Work Phone: [phone] electrocardiogram interpretation Sinus Rhythm - Negative T-waves -Possible Anterior ischemia. ABNORMAL Invalid Interpretation Code [facility] Work Phone: [phone] Interpretation Sinus Rhythm - Negative T-waves -Possible Anterior ischemia. ABNORMAL [facility] Work Phone: [phone] P Taft 51 deg [facility] Work Phone: [phone] P wave axis, electrocardiogram 51 deg Invalid Interpretation Code [facility] Work Phone: [phone] OH Interval 156 ms [facility] Work Phone: [phone] OH interval, electrocardiogram 156 ms Invalid Interpretation Code [facility] Work Phone: [phone] Pulse (Heart Rate) 70 /min Invalid Interpretation Code [facility] Work Phone: [phone] QRS axis, electrocardiogram 2 deg Invalid Interpretation Code [facility] Work Phone: [phone] QRS Duration 96 ms [facility] Work Phone: [phone] QRS duration, electrocardiogram 96 ms Invalid Interpretation Code [facility] Work Phone: [phone] QT Interval new path ms [facility] Work Phone: [phone] QT interval, electrocardiogram new path ms Invalid Interpretation Code [facility] Work Phone: [phone] QTc Scott 417 ms [facility] Work Phone: [phone] T Taft 110 deg [facility] Work Phone: [phone] T wave axis, electrocardiogram 110 deg Invalid Interpretation Code [facility] Work Phone: [phone] Lab Report: Lipid Profileon 10-20-2016 Cholesterol in HDL mass conc 34 mg/dL Low [facility] Work Phone: [phone] Cholesterol in LDL mass conc 72 mg/dL 0-130 [facility] Work Phone: [phone] Cholesterol mass conc 134 mg/dL 200 [facility] Work Phone: [phone] Lipoprotein.pre-beta mass conc 28 mg/dL 5-40 [facility] Work Phone: [phone] Triglyceride mass conc 139 mg/dL [facility] Work Phone: [phone] Lab Report: Liver Profileon 10-20-2016 Albumin mass conc 4.1 g/dL 3.4-5.0 [facility] Work Phone: [phone] ALP enzyme act/vol (Bld) 78 U/L 45-[address] [facility] Work Phone: [phone] ALT enzyme act/vol 54 U/L 12-78 [facility] Work Phone: [phone] AST enzyme act/vol 29 U/L 15-37 [facility] Work Phone: [phone] Bilirubin mass conc 0.60 mg/dL 0.20-1.00 [facility] Work Phone: [phone] Bilirubin.direct mass conc 0.13 mg/dL 0.00-0.[address] [facility] Work Phone: [phone] Globulin mass conc (S) 3.2 g/dL 2.3-3.[address] [facility] Work Phone: [phone] Protein mass conc 7.3 g/dL 6.4-8.2 [facility] Work Phone: [phone] Lab Report: Basic Metabolic Profile (BMP)on 02-24-2016 Anion gap molar conc 6 mmol/L 5-15 [facility] Work Phone: [phone] Calcium mass conc 8.9 mg/dL 8.5-10.1 [facility] Work Phone: [phone] Chloride molar conc 106 mmol/L 98-107 [facility] Work Phone: [phone] CO2 ppres (BldV) 27.0 mmol/L 21.0-32.0 [facility] Work Phone: [phone] Creatinine mass conc 0.96 mg/dL 0.70-1.30 [facility] Work Phone: [phone] EST GFR - AA 102 mL/min >[address] [facility] Work Phone: [phone] GFR/1.73 sq M predicted among non-blacks MDRD vol rate/area (S/P/Bld) 85 mL/min/{1.73_m2} >60 [facility] Work Phone: [phone] Glucose mass conc 102 mg/dL 70-110 [facility] Work [phone] Potassium molar conc 4.2 mmol/L 3.5-5.1 [facility] Work Phone: [phone] Sodium molar conc 139 mmol/L 136-145 [facility] Work [phone] Urea nitrogen mass conc 17 mg/dL 7-18 [facility] Work Phone: [phone] Urea nitrogen/Creatinine mass ratio 17.7 RATIO 10-20 [facility] Medicine [facility] Work Phone: [phone] Lab Report: CBC-Complete Blo od Cnt No Diffon 02-24-2016 Erythrocyte distribution width Ratio (RBC) 41.4 fL 35.1-43.9 [facility] Work Phone: [phone] Erythrocyte distribution width Ratio (RBC) 12.5 % 11.6-14.6 [facility] Work Phone: [phone] Hematocrit Volume Fraction (Bld) 45.1 % 40-54 [facility] Work Phone: [phone] Hemoglobin mass conc (Bld) 15.4 g/dL 13.0-16.5 [facility] Work Phone: [phone] MCH Entitic mass (RBC) 30.8 pg 27.0-32.0 [facility] Work Phone: [phone] MCHC mass conc (RBC) 34.1 G/GL 32-36 [facility] Work Phone: [phone] MCV Entitic volume (RBC) 90.2 fL 80-94 [facility] Work Phone: [phone] Platelet mean volume Entitic volume (Bld) 10.6 fL 6.2-12.0 [facility] Work Phone: [phone] Platelets #/vol (Bld) 177 10*3/mm3 150-450 [facility] Work Phone: [phone] RBC #/vol (Bld) 5.00 10*6/uL 4.6-6.2 [facility] Work Phone: [phone] WBC #/vol (Bld) 4.9 10*3/uL 4.4-11.0 [facility] Work Phone: [phone] Clinical Lists Updateon -0 Thyrotropin Qn 2.66 u[iU]/mL Invalid Interpretation Code [facility] Work Phone: [phone] Office Visit: [facility] 09-07-20 14 cardiac risk group C Invalid Interpretation Code [facility] Work Phone: [phone] General cardiovascular disease 10Y risk [#] [place].D'Agostino N/A Invalid Interpretation Code [facility] Work Phone: [phone] Vital Signs Date Time Vital Sign Value Performing Clinician Facility 06-24-2024 13:58-0400 Body height 185.4 cm Edmund Kamara MD Work Phone: [facility] 06-24-2024 13:58-0400 Body mass index (BMI) [Ratio] 31.93 kg/m2 Edmund Kamara MD Work Phone: [facility] 06-24-2024 13:58-0400 Body weight 109.77 kg Edmund Kamara MD Work Phone: [facility] 06-24-2024 13:58-0400 Diastolic blood pressure 70 mm[Hg] Edmund Kamara MD Work Phone: [facility] 06-24-2024 13:58-0400 Heart rate 59 /min Edmund Kamara MD Work Phone: [facility] 06-24-2024 13:58-0400 Systolic blood pressure 132 mm[Hg] Edmund Kamara MD Work Phone: [facility] 03-25-2024 14:37-0400 Body height 185.4 cm Deena Francois MD Work Phone: [facility] 03-25-2024 14:37-0400 Body mass index (BMI) [Ratio] 31.14 kg/m2 Deena Francois MD Work Phone: [facility] 03-25-2024 14:37-0400 Body weight 107.05 kg Deena Francois MD Work Phone: [facility] 03-25-2024 14:37-0400 Diastolic blood pressure 86 mm[Hg] Deena Francois MD Work Phone: [facility] 03-25-2024 14:37-0400 Heart rate 61 /min Deena Francois MD Work Phone: [facility] 03-25-2024 14:37-0400 SaO2% (BldA) [Mass fraction] 100 % Deena Francois MD Work Phone: [facility] 03-25-2024 14:37-0400 Systolic blood pressure 147 mm[Hg] Deena Francois MD Work Phone: [facility] 01-08-2024 15:24-0400 Body mass index (BMI) [Ratio] 31.8 kg/m2 Deena Francois MD Work Phone: [facility] 01-08-2024 15:24-0400 Body weight 109.32 kg Deena Francois MD Work Phone: [facility] 01-08-2024 15:24-0400 Diastolic blood pressure 90 mm[Hg] Deena Francois MD Work Phone: [facility] 01-08-2024 15:24-0400 Heart rate 84 /min Deena Francois MD Work Phone: [facility] 01-08-2024 15:24-0400 Respiratory rate 14 /min Deena Francois MD Work Phone: [facility] 01-08-2024 15:24-0400 SaO2% (BldA) [Mass fraction] 99 % Deena Francois MD Work Phone: [facility] 01-08-2024 15:24-0400 Systolic blood pressure 145 mm[Hg] Deena Francois MD Work Phone: [facility] 12-30-2023 10:19-0400 Body mass index (BMI) [Ratio] 31.93 kg/m2 Card [employer] Work Phone: [facility] 12-30-2023 10:19-0400 Body weight 109.77 kg Card Galloway Work Phone: [facility] 12-30-2023 10:19-0400 Diastolic blood pressure 84 mm[Hg] Card Galloway Work Phone: [facility] 12-30-2023 10:19-0400 Heart rate 62 /min Card Galloway Work Phone: [facility] 12-30-2023 10:19-0400 Systolic blood pressure 130 mm[Hg] Card Galloway Work Phone: [facility] 11-04-2023 07:28-0500 Body weight 111.13 kg Card Galloway Work Phone: [facility] 11-04-2023 07:28-0500 Diastolic blood pressure 76 mm[Hg] Card Galloway Work Phone: [facility] 11-04-2023 07:28-0500 Heart rate 73 /min Card Galloway Work Phone: [facility] 11-04-2023 07:28-0500 Systolic blood pressure 128 mm[Hg] Card Galloway Work Phone: [facility] 09-18-2023 15:29-0500 Body height 185.4 cm Deena Francois MD Work Phone: [facility] 09-18-2023 15:29-0500 Body weight 111.13 kg Deena Francois MD Work Phone: [facility] 09-18-2023 15:29-0500 Diastolic blood pressure 86 mm[Hg] Deena Francois MD Work Phone: [facility] 09-18-2023 15:29-0500 Heart rate 86 /min Deena Francois MD Work Phone: [facility] 09-18-2023 15:29-0500 SaO2% (BldA) [Mass fraction] 98 % Deena Francois MD Work Phone: [facility] 09-18-2023 15:29-0500 Systolic blood pressure 147 mm[Hg] Deena Francois MD Work Phone: [facility] 08-08-2023 14:01-0500 Body height 185.4 cm Justo Mehta WORM PACKER.JAVASCRIPT PROGRAMMER Work Phone: [facility] 08-08-2023 14:01-0500 Body temperature 98.1 [degF] Justo Roblesucis WORM PACKER.JAVASCRIPT PROGRAMMER Work Phone: [facility] 08-08-2023 14:01-0500 Body weight 109.05 kg Justo Roblesucis WORM PACKER.JAVASCRIPT PROGRAMMER Work Phone: [facility] 08-08-2023 14:01-0500 Diastolic blood pressure 79 mm[Hg] Justo Roblesucis WORM PACKER.JAVASCRIPT PROGRAMMER Work Phone: [facility] 08-08-2023 14:01-0500 Heart rate 90 /min Justo Kalucis WORM PACKER.JAVASCRIPT PROGRAMMER Work Phone: [facility] 08-08-2023 14:01-0500 Respiratory rate 14 /min Justo Kalucis WORM PACKER.JAVASCRIPT PROGRAMMER Work Phone: [facility] 08-08-2023 14:01-0500 SaO2% (BldA) [Mass fraction] 97 % Justo Mehta APRN.JAVASCRIPT PROGRAMMER Work Phone: [facility] 08-08-2023 14:01-0500 Systolic blood pressure 135 mm[Hg] Justo Mehta APRN.JAVASCRIPT PROGRAMMER Work Phone: [facility] 07-24-2023 12:50-0500 Diastolic blood pressure 79 mm[Hg] Deena Francois MD Work Phone: [facility] 07-24-2023 12:50-0500 Systolic blood pressure 145 mm[Hg] Deena Francois MD Work Phone: [facility] 07-24-2023 12:47-0500 Body height 185.4 cm Deena Francois MD Work Phone: [facility] 07-24-2023 12:47-0500 Body weight 112.04 kg Deena Francois MD Work Phone: [facility] 07-24-2023 12:47-0500 Heart rate 90 /min Deena Francois MD Work Phone: [facility] 07-24-2023 12:47-0500 SaO2% (BldA) [Mass fraction] 99 % Deena Francois MD Work Phone: [facility] 06-10-2023 07:54-0400 Body height 185.[address] Geoff Sainz [facility] 06-10-2023 07:54-0400 Body weight 109.[address] Geoff Sainz [facility] 06-07-2023 08:33-0400 Body mass index (BMI) [Ratio] 31.8 kg/m2 Dr. Geoff Sainz [facility] 04-30-2023 09:01-0400 Body height 185.[address] Geoff Sainz Work Phone: [facility] 04-30-2023 09:01-0400 Body mass index (BMI) [Ratio] 32 kg/m2 Dr. Geoff Sainz Work Phone: [facility] 04-30-2023 09:01-0400 Body weight 110.[address] Geoff Sainz Work Phone: [facility] 04-30-2023 09:01-0400 Diastolic blood pressure 77 mm[Hg] Dr. Geoff Sainz Work Phone: [facility] 04-30-2023 09:01-0400 Heart rate 78 /min Dr. Geoff Sainz Work Phone: [facility] 04-30-2023 09:01-0400 Respiratory rate 18 /min Dr. Geoff Sainz Work Phone: [facility] 04-30-2023 09:01-0400 SaO2% (BldA) [Mass fraction] 99 % Dr. Geoff Sainz Work Phone: [facility] 04-30-2023 09:01-0400 Systolic blood pressure 121 mm[Hg] Dr. Geoff Sainz Work Phone: [facility] 01-15-2023 09:51-0400 Body mass index (BMI) [Ratio] 33 kg/m2 Dr. Geoff Sainz Work Phone: [facility] 01-15-2023 09:51-0400 Body temperature 97.5 [degF] Dr. Geoff Sainz Work Phone: [facility] 01-15-2023 09:51-0400 Body weight 113.[address] Geoff Sainz Work Phone: [facility] 01-15-2023 09:51-0400 Diastolic blood pressure 78 mm[Hg] Dr. Geoff Sainz Work Phone: [facility] 01-15-2023 09:51-0400 Heart rate 86 /min Dr. Geoff Sainz Work Phone: [facility] 01-15-2023 09:51-0400 Respiratory rate 16 /min Dr. Geoff Sainz Work Phone: [facility] 01-15-2023 09:51-0400 SaO2% (BldA) [Mass fraction] 97 % Dr. Geoff Sainz Work Phone: [facility] 01-15-2023 09:51-0400 Systolic blood pressure 142 mm[Hg] Dr. Geoff Sainz Work Phone: [facility] 08-06-2022 10:11-0500 Body height 185.[address] Geoff Sainz Work Phone: [facility] Work Phone: 08-06-2022 10:11-0500 Body mass index (BMI) [Ratio] 33 kg/m2 Dr. Geoff Sainz Work Phone: [facility] Work Phone: 08-06-2022 10:11-0500 Body temperature 97.3 [degF] Dr. Geoff Sainz Work Phone: [facility] Work Phone: 08-06-2022 10:11-0500 Body weight 113.[address] Geoff Sainz Work Phone: [facility] Work Phone: 08-06-2022 10:11-0500 Diastolic blood pressure 94 mm[Hg] Dr. Geoff Sainz Work Phone: [facility] Work Phone: 08-06-2022 10:11-0500 Heart rate 82 /min Dr. Geoff Sainz Work Phone: [facility] Work Phone: 08-06-2022 10:11-0500 Respiratory rate 16 /min Dr. Geoff Sainz Work Phone: [facility] Work Phone: 08-06-2022 10:11-0500 SaO2% (BldA) [Mass fraction] 99 % Dr. Geoff Sainz Work Phone: [facility] Work Phone: 08-06-2022 10:11-0500 Systolic blood pressure 148 mm[Hg] Dr. Geoff Sainz Work Phone: [facility] Work Phone: 07-31-2022 11:55-0500 Diastolic blood pressure 70 mm[Hg] Dr. Geoff Sainz Work Phone: [facility] Work Phone: 07-31-2022 11:55-0500 Heart rate 84 /min Dr. Geoff Sainz Work Phone: [facility] Work Phone: 07-31-2022 11:55-0500 Respiratory rate 15 /min Dr. Geoff Sainz Work Phone: [facility] Work Phone: 07-31-2022 11:55-0500 SaO2% (BldA) [Mass fraction] 96 % Dr. Geoff Sainz Work Phone: [facility] Work Phone: 07-31-2022 11:55-0500 Systolic blood pressure 106 mm[Hg] Dr. Geoff Sainz Work Phone: [facility] Work Phone: 07-31-2022 09:18-0500 Body mass index (BMI) [Ratio] 33 kg/m2 Dr. Geoff Sainz Work Phone: [facility] Work Phone: 07-31-2022 09:18-0500 Body temperature 98.9 [degF] Dr. Geoff Sainz Work Phone: [facility] Work Phone: 07-31-2022 09:18-0500 Body weight 113.[address] Geoff Sainz Work Phone: [facility] Work Phone: 07-25-2022 15:40-0500 Body mass index (BMI) [Ratio] 33.2 kg/m2 Dr. Geoff Sainz Work Phone: [facility] Work Phone: 07-25-2022 15:40-0500 Body temperature 98.9 [degF] Dr. Geoff Sainz Work Phone: [facility] Work Phone: 07-25-2022 15:40-0500 Body weight 114.[address] Geoff Sainz Work Phone: [facility] Work Phone: 07-25-2022 15:40-0500 Diastolic blood pressure 81 mm[Hg] Dr. Geoff Sainz Work Phone: [facility] Work Phone: 07-25-2022 15:40-0500 Heart rate 97 /min Dr. Geoff Sainz Work Phone: [facility] Work Phone: 07-25-2022 15:40-0500 Respiratory rate 16 /min Dr. Geoff Sainz Work Phone: [facility] Work Phone: 07-25-2022 15:40-0500 SaO2% (BldA) [Mass fraction] 97 % Dr. Geoff Sainz Work Phone: [facility] Work Phone: 07-25-2022 15:40-0500 Systolic blood pressure 130 mm[Hg] Dr. Geoff Sainz Work Phone: [facility] Work Phone: 07-25-2022 14:40-0500 Body mass index (BMI) [Ratio] 33.3 kg/m2 Dr. Geoff Sainz Work Phone: [facility] Work Phone: 07-25-2022 14:40-0500 Body weight 114.[address] Geoff Sainz Work Phone: [facility] Work Phone: 07-25-2022 14:40-0500 Diastolic blood pressure 70 mm[Hg] Dr. Geoff Sainz Work Phone: [facility] Work Phone: 07-25-2022 14:40-0500 Heart rate 100 /min Dr. Geoff Sainz Work Phone: [facility] Work Phone: 07-25-2022 14:40-0500 Respiratory rate 18 /min Dr. Geoff Sainz Work Phone: [facility] Work Phone: 07-25-2022 14:40-0500 Systolic blood pressure 128 mm[Hg] Dr. Geoff Sainz Work Phone: [facility] Work Phone: 05-08-2017 16:29-0400 BMI (Body Mass [...] Derived from formula 78.28 mL/min Katiesuad Otty [facility] Work Phone: 11-02-2016 11:38-0500 Heart rate 70 /min [facility] Work Phone: 11-02-2016 11:29-0500 BMI (Body Mass Index) 35.03 kg/m2 [facility] Work Phone: 11-02-2016 11:29-0500 BP Diastolic 84 mm[Hg] [facility] Work Phone: 11-02-2016 11:29-0500 BP Systolic 130 mm[Hg] [facility] Work Phone: 11-02-2016 11:29-0500 BSA (Body Surface Area) 2.33 m2 [facility] Work Phone: 11-02-2016 11:29-0500 Pulse (Heart Rate) 70 /min [facility] Work Phone: 11-02-2016 11:29-0500 Respiratory Rate 16 /min [facility] Work Phone: 11-02-2016 11:29-0500 Weight 113.94 kg [facility] Work Phone: 02-24-2016 10:23-0400 Body surface area Derived from formula 92.48 mL/min [facility] Work Phone: 07-22-2014 15:29-0500 Height 180.34 cm [facility] Work Phone: Encounters Encounter Date Encounter Type Care Provider Facility Start: 03-05-2025 End: 03-05-2025 Refill Deena Francois MD Work Phone: Cardiology Comment on above: Refill Request Start: 12-24-2024 End: 12-24-2024 ambulatory Abdiel Mathews Facility:[facility] [place] [facility] Start: 12-10-2024 End: 12-10-2024 ambulatory Abdiel Mathews DITTO MACHINE OPERATOR-C Work Phone: [facility] Work Phone: Start: 12-10-2024 End: 12-10-2024 Discharged Recurring Abdiel Mathews DITTO MACHINE OPERATOR-C -Physical Therapy Work Phone: Start: 09-07-2024 End: 09-07-2024 Patient encounter procedure Abdiel Mathews DITTO MACHINE OPERATOR-C -Radiology, [facility] Work Phone: Start: 09-07-2024 End: 09-07-2024 ambulatory Abdielbird Mathews Facility:[facility] Start: 08-19-2024 End: 08-19-2024 ambulatory DEENA FRANCOIS Facility:[facility] Start: 08-19-2024 End: 08-19-2024 Patient encounter procedure Harriet [facility] Work Phone: [facility] Comment on above: HOCM (hypertrophic o bstructive cardiomyopathy) (HCC) Start: 06-24-2024 End: 06-24-2024 Patient encounter procedure Edmund Kamara MD Work Phone: Cardiology Comment on above: HOCM (hypertrophic o bstructive cardiomyopathy) (HCC); NSVT (nonsustained ventricular tachycardia) (HCC) Start: 06-24-2024 End: 06-24-2024 ambulatory ABDIEL BISI Facility:[facility] Start: 06-22-2024 End: 06-22-2024 Orders Only Edmund Kamara MD Work Phone: Cardiology Comment on above: NSVT (nonsustained v entricular tachycardia) (HCC) (Primary Dx); HOCM (hypertrophic obstructive cardiomyopathy) (HCC) Start: 06-08-2024 End: 06-08-2024 Telephone encounter Deena Francois MD Work Phone: Cardiology Start: 05-05-2024 End: 05-05-2024 Telephone encounter Deena Francois MD Work Phone: Cardiology Comment on above: fax confirmation Start: 05-04-2024 End: 05-04-2024 [facility] Start: 05-04-2024 Encounter for preprocedural cardiovascular examination DEENA FRANCOIS [facility] Start: 04-30-2024 End: 04-30-2024 Telephone encounter Deena Francois MD Work Phone: Cardiology Comment on above: HOCM (hypertrophic o bstructive cardiomyopathy) (HCC) (Primary Dx) Start: 04-28-2024 [facility] Start: 04-28-2024 End: 04-28-2024 Subsequent hospital visit by physician [facility] Work Phone: Cardiology Lab Comment on above: HOCM (hypertrophic o bstructive cardiomyopathy) (HCC) [I42.1] Start: 04-28-2024 End: 04-29-2024 [facility] Start: 04-27-2024 End: 04-27-2024 Telephone encounter Marita Rodriguez RN Cardiology Lab Comment on above: Reminder Call Start: 04-23-2024 End: 05-06-2024 Refill Edmund Allen MD Work Phone: Cardiology Comment on above: Refill Request Start: 04-20-2024 Telephone encounter Deena Francois MD Work Phone: Cardiology Comment on above: Patient Update Start: 04-01-2024 Telephone encounter Deena Francois MD Work Phone: Cardiology Start: 03-25-2024 End: 03-25-2024 [facility] Start: 03-25-2024 End: 03-25-2024 Patient encounter procedure Deena Francois MD Work Phone: Cardiology Comment on above: Primary hypertension (Primary Dx); Aortic root dilation (HCC); Encounter for preprocedural cardiovascular examination; History of aortic valve replacement Start: 03-25-2024 End: 03-25-2024 Patient encounter status Deena Francois MD Work Phone: [facility] Start: 03-25-2024 End: 03-25-2024 [facility] Start: 03-18-2024 Refill Deena Francois MD Work Phone: Cardiology Comment on above: Refill Request Start: 03-12-2024 Refill Deena Francois MD Work Phone: Cardiology Comment on above: Refill Request Start: 02-08-2024 Orders Only Deena Francois MD Work Phone: Cardiology Comment on above: HOCM (hypertrophic o bstructive cardiomyopathy) (HCC) (Primary Dx) Start: 01-08-2024 End: 01-08-2024 [facility] DEENA FRANCOIS Facility:[facility] Start: 01-08-2024 End: 01-08-2024 Patient encounter procedure Deena Francois MD Work Phone: Cardiology Comment on above: Essential hypertensi on (Primary Dx); S/P AVR (aortic valve replacement) and aortoplasty; Chronic heart failure with preserved ejection fraction (HCC); HOCM (hypertrophic obstructive cardiomyopathy) (HCC) Start: 01-08-2024 End: 01-08-2024 [facility] DEENA FRANCOIS Facility:[facility] Start: 01-08-2024 End: 01-08-2024 Subsequent hospital visit by physician Florence Ramachandran (I-Stat) Work Phone: Radiology Comment on above: Vasculopathy [I99.9] Start: 01-01-2024 End: 01-01-2024 [facility] Start: 01-01-2024 End: 01-01-2024 Patient encounter procedure Card Rehab Phase 2 [place] Work Phone: [facility] Comment on above: S/P AVR (aortic valv e replacement) (Primary Dx) Start: 12-30-2023 End: 12-30-2023 [facility] Start: 12-30-2023 End: 12-30-2023 Patient encounter procedure Card Rehab Phase 2 [place] Work Phone: [facility] Comment on above: S/P AVR (aortic valv e replacement) (Primary Dx) Start: 12-27-2023 End: 12-27-2023 [facility] Start: 12-27-2023 End: 12-27-2023 Patient encounter procedure Card Rehab Phase 2 [place] Work Phone: [facility] Comment on above: S/P AVR (aortic valv e replacement) (Primary Dx) Start: 12-25-2023 End: 12-25-2023 [facility] Start: 12-25-2023 End: 12-25-2023 Patient encounter procedure Card Rehab Phase 2 [place] Work Phone: [facility] Comment on above: S/P AVR (aortic valv e replacement) (Primary Dx) Start: 12-23-2023 End: 12-23-2023 [facility] Start: 12-23-2023 End: 12-23-2023 Patient encounter procedure Card Rehab Phase 2 [place] Work Phone: [facility] Comment on above: S/P AVR (aortic valv e replacement) (Primary Dx) Start: 12-20-2023 End: 12-20-2023 [facility] Start: 12-20-2023 End: 12-20-2023 Patient encounter procedure Card Rehab Phase 2 [place] Work Phone: [facility] Comment on above: S/P AVR (aortic valv e replacement) (Primary Dx) Start: 12-18-2023 End: 12-18-2023 [facility] Start: 12-18-2023 End: 12-18-2023 Patient encounter procedure Card Rehab Phase 2 [place] Work Phone: [facility] Comment on above: S/P AVR (aortic valv e replacement) (Primary Dx) Start: 12-16-2023 End: 12-16-2023 [facility] Start: 12-16-2023 End: 12-16-2023 Patient encounter procedure Card Rehab Phase 2 [place] Work Phone: [facility] Comment on above: S/P AVR (aortic valv e replacement) (Primary Dx) Start: 12-13-2023 End: 12-13-2023 [facility] Start: 12-13-2023 End: 12-13-2023 Patient encounter procedure Card Rehab Phase 2 [place] Work Phone: [facility] Comment on above: S/P AVR (aortic valv e replacement) (Primary Dx) Start: 12-11-2023 End: 12-11-2023 [facility] Start: 12-11-2023 End: 12-11-2023 Patient encounter procedure Card Rehab Phase 2 [place] Work Phone: [facility] Comment on above: S/P AVR (aortic valv e replacement) (Primary Dx) Start: 12-09-2023 End: 12-09-2023 [facility] Start: 12-09-2023 End: 12-09-2023 Patient encounter procedure Card Rehab Phase 2 [place] Work Phone: [facility] Comment on above: S/P AVR (aortic valv e replacement) (Primary Dx) Start: 12-06-2023 End: 12-06-2023 [facility] Start: 12-04-2023 End: 12-04-2023 [facility] Start: 12-04-2023 End: 12-04-2023 Patient encounter procedure Card Rehab Phase 2 [place] Work Phone: [facility] Comment on above: S/P AVR (aortic valv e replacement) (Primary Dx) Start: 12-02-2023 End: 12-02-2023 [facility] Start: 12-02-2023 End: 12-02-2023 Patient encounter procedure Card Rehab Phase 2 [place] Work Phone: [facility] Comment on above: S/P AVR (aortic valv e replacement) (Primary Dx) Start: 11-29-2023 End: 11-29-2023 [facility] Start: 11-29-2023 End: 11-29-2023 Patient encounter procedure Card Rehab Phase 2 [place] Work Phone: [facility] Comment on above: S/P AVR (aortic valv e replacement) (Primary Dx) Start: 11-27-2023 End: 11-27-2023 [facility] Start: 11-27-2023 End: 11-27-2023 Patient encounter procedure Card Rehab Phase 2 [place] [employer] Phone: [facility] Comment on above: S/P AVR (aortic valv e replacement) (Primary Dx) Start: 11-25-2023 End: 11-25-2023 [facility] Start: 11-25-2023 End: 11-25-2023 Patient encounter procedure Card Rehab Phase 2 [place] Work Phone: [facility] Comment on above: S/P AVR (aortic valv e replacement) (Primary Dx) Start: 11-22-2023 End: 11-22-2023 [facility] Start: 11-22-2023 End: 11-22-2023 Patient encounter procedure Card Rehab Phase 2 [place] Work Phone: [facility] Comment on above: S/P AVR (Primary Dx) Start: 11-20-2023 End: 11-20-2023 [facility] Start: 11-20-2023 End: 11-20-2023 Patient encounter procedure Card Rehab Phase 2 [place] Work Phone: [facility] Comment on above: S/P AVR (aortic valv e replacement) (Primary Dx) Start: 11-18-2023 End: 11-18-2023 [facility] Start: 11-18-2023 End: 11-18-2023 Patient encounter procedure Card Rehab Phase 2 [place] Work Phone: [facility] Comment on above: S/P AVR (aortic valv e replacement) (Primary Dx) Start: 11-15-2023 End: 11-15-2023 [facility] Start: 11-15-2023 End: 11-15-2023 Patient encounter procedure Card Rehab Phase 2 [place] Work Phone: [facility] Comment on above: S/P AVR (aortic valv e replacement) (Primary Dx) Start: 11-13-2023 End: 11-13-2023 [facility] Start: 11-13-2023 End: 11-13-2023 Patient encounter procedure Card Rehab Phase 2 [facility] Phone: [facility] Comment on above: S/P AVR (aortic valv e replacement) (Primary Dx) Start: 11-11-2023 End: 11-11-2023 [facility] Start: 11-11-2023 End: 11-11-2023 Patient encounter procedure Card Rehab Phase 2 [place] Work Phone: [facility] Comment on above: S/P AVR (aortic valv e replacement) (Primary Dx) Start: 11-08-2023 End: 11-08-2023 [facility] Start: 11-08-2023 End: 11-08-2023 Patient encounter procedure Card Rehab Phase 2 [facility] Phone: [facility] Comment on above: S/P AVR (aortic valv e replacement) (Primary Dx) Start: 11-06-2023 End: 11-06-2023 ambulatory [facility] Start: 11-06-2023 End: 11-06-2023 Patient encounter procedure Card Rehab Phase 2 [facility] Phone: [facility] Comment on above: S/P AVR (aortic valv e replacement) (Primary Dx) Start: 11-04-2023 End: 11-04-2023 ambulatory [facility] Start: 11-01-2023 End: 11-01-2023 [facility] Start: 11-01-2023 End: 11-01-2023 Patient encounter procedure Card Rehab Phase 2 [facility] Phone: [facility] Comment on above: S/P AVR (aortic valv e replacement) (Primary Dx) Start: 10-30-2023 End: 10-30-2023 ambulatory Cass Mari RN [facility] Start: 10-30-2023 End: 10-30-2023 Patient encounter procedure Card Rehab Phase 2 [facility] Phone: [facility] Comment on above: S/P AVR (aortic valv e replacement) (Primary Dx) Start: 10-28-2023 End: 10-28-2023 [facility] Start: 10-28-2023 End: 10-28-2023 Patient encounter procedure Card Rehab Phase 2 [facility] Phone: [facility] Comment on above: S/P AVR (aortic valv e replacement) (Primary Dx) Start: 10-25-2023 End: 10-25-2023 ambulatory [facility] Start: 10-25-2023 End: 10-25-2023 Patient encounter procedure Card Rehab Phase 2 [place] Work Phone: [facility] Comment on above: S/P AVR (aortic valv e replacement) (Primary Dx) Start: 10-23-2023 End: 10-23-2023 [facility] Start: 10-23-2023 End: 10-23-2023 Patient encounter procedure Card Rehab Phase 2 [place] Work Phone: [facility] Comment on above: S/P AVR (aortic valv e replacement) (Primary Dx) Start: 10-21-2023 End: 10-21-2023 [facility] Start: 10-21-2023 End: 10-21-2023 Patient encounter procedure Card Rehab Phase 2 [facility] Phone: [facility] Comment on above: S/P AVR (aortic valv e replacement) (Primary Dx) Start: 10-18-2023 End: 10-18-2023 [facility] Start: 10-18-2023 End: 10-18-2023 Patient encounter procedure Card Rehab Phase 2 [facility] Phone: [facility] Comment on above: S/P AVR (aortic valv e replacement) (Primary Dx) Start: 10-16-2023 End: 10-16-2023 [facility] Start: 10-16-2023 End: 10-16-2023 Patient encounter procedure Card Rehab Phase 2 [facility] Phone: [facility] Comment on above: S/P AVR (aortic valv e replacement) (Primary Dx) Start: 10-14-2023 End: 10-14-2023 [facility] Start: 10-14-2023 End: 10-14-2023 Patient encounter procedure Card Rehab Phase 2 [facility] Phone: [facility] Comment on above: S/P AVR (aortic valv e replacement) (Primary Dx) Start: 10-11-2023 End: 10-11-2023 [facility] Start: 10-11-2023 End: 10-11-2023 Patient encounter procedure Card Rehab Phase 2 [place] Work Phone: [facility] Comment on above: S/P AVR (aortic valv e replacement) (Primary Dx) Start: 10-09-2023 End: 10-09-2023 [facility] Start: 09-18-2023 End: 09-18-2023 ambulatory DEENA FRANCOIS Facility:[facility] Start: 09-18-2023 End: 09-18-2023 Patient encounter procedure Deena Francois MD Work Phone: Cardiology Comment on above: Hypertrophic cardiom yopathy (HCC) (Primary Dx); Aortic root dilatation (HCC); Angina pectoris (HCC); Obesity, Class I, BMI 30-34.9; Vasculopathy; Adverse effect of treatment, initial encounter; S/P AVR (aortic valve replacement) and aortoplasty Start: 09-18-2023 End: 09-18-2023 [facility] Start: 08-12-2023 Telephone encounter Teresa Aguirre N [...] Start: 07-25-2023 End: 07-25-2023 Preprocedural examination done [facility] Work Phone: [facility] Start: 07-25-2023 End: 07-25-2023 Patient encounter status Usha Navarro MD Work Phone: [facility] Start: 07-25-2023 End: 07-25-2023 Admission to same day surgery center Anesthesia Clearance Work Phone: [facility] Work Phone: Start: 07-25-2023 End: 07-25-2023 Patient encounter procedure Usha Navarro MD Work Phone: Cardiothoracic Comment on above: Nonrheumatic aortic valve stenosis; Pre-operative cardiovascular examination; Aortic valve disorder; Hypertrophic cardiomyopathy (HCC) Pre-op exam (Primary Dx) Encounter for preope rative anesthesiology assessment for cardiac surgery (Primary Dx) Start: 07-24-2023 End: 07-24-2023 Patient encounter status [facility] Start: 07-24-2023 End: 07-24-2023 Subsequent [...] encounter status Deena Francois MD Work Phone: [facility] Work Phone: Start: 07-24-2023 End: 07-24-2023 ambulatory Pulm J-1 Pulmonary Medicine Comment on above: Spirometry Start: 07-24-2023 End: 07-24-2023 Patient encounter procedure Pulm Fct Lab J-1 [facility] Start: 07-24-2023 End: 07-24-2023 Patient encounter status Pulm J[facility]1 [facility] Start: 07-23-2023 Orders Only Tip Warner MD Work Phone: Cardiology Comment on above: Aortic valve disorde r (Primary Dx) Start: 07-22-2023 ambulatory Celeste Ni Research Coordinator [facility] Start: 07-10-2023 Telephone encounter Robert jiménez RN Work Phone: Case Management Comment on above: Box Fabricator - O ther (Care Continuum Advisor Assessment ) Start: 06-10-2023 End: 06-10-2023 Admission to same day surgery center Dr. Geoff Sainz [facility]-Building Maintenance Custodian/Special Procedures Work Phone: Start: 06-10-2023 End: 06-10-[address] Geoff Sainz [facility] Work Phone: Start: 05-30-2023 Non-patient / Non-visit Dr. Geoff shetty [facility] Start: 05-21-2023 End: 05-21-[address] Geoff Sainz [facility] Work Phone: Start: 05-21-2023 End: 05-21-[address] Geoff Sainz [facility]-Laboratory Work Phone: Start: 05-09-2023 End: 05-09-[address] Geoff Sainz Work Phone: [facility] Work Phone: Start: 05-09-2023 End: 05-09-[address] Geoff Sainz Work Phone: [facility]-Nuclear Medicine, [facility] Work Phone: Start: 04-30-2023 End: 04-30-[address] Geoff Sainz Work Phone: [facility] Work Phone: Start: 01-15-2023 End: 01-15-[address] Geoff Sainz Work Phone: [facility] Work Phone: Start: 12-21-2022 ambulatory SINGH RUIZ ) [facility] Facility:[facility] Start: 12-21-2022 End: 12-21-2022 Subsequent hospital visit by physician Mri [facility] (I-Stat/Lg Bore/1.5t) [facility] Comment on above: I35.0 Start: 12-07-2022 Telephone encounter Charlotte Garcia RT(R ) [facility] Comment on above: Orders Start: 08-06-2022 End: 08-06-[address] Geoff Sainz Work Phone: [facility] Work Phone: Start: 08-06-2022 End: 08-06-[address] Geoff Sainz Work Phone: [facility]-Laboratory, Specimen Start: 08-06-2022 End: 08-06-[address] Geoff Sainz Work Phone: [facility] Start: 07-31-2022 End: 07-31-[address] Geoff Sainz Work Phone: [facility] Work Phone: Start: 07-31-2022 End: 07-31-[address] Geoff Sainz Work Phone: [facility]-Cat Scan, [facility] Start: 07-25-[address] Geoff Sainz Work Phone: [facility] Start: 07-25-2022 End: 07-25-[address] Geoff Sainz Work Phone: [facility] Start: 07-25-2022 End: 07-25-[address] Geoff Sainz Work Phone: [facility] Start: 07-17-2022 Non-patient / Non-visit Dr. Adrián Sainz Work Phone: [facility] Start: 07-17-2022 End: 07-17-[address] Geoff Sainz Work Phone: [facility] Work Phone: Start: 07-17-2022 End: 07-17-[address] Geoff Sainz Work Phone: [facility]-Cardiovascular Services Start: 04-23-2022 End: 04-23-2022 Patient encounter procedure [facility]-Laboratory Procedures Date Procedure Procedure Detail Performing Clinician Start: 09-07-2024 Plain X-ray of shoulder Abdiel Mathews DITTO MACHINE OPERATOR-C Work Phone: Start: 04-28-2024 Echo tthrc r-t 2d w/ wo m-mode complete rest&st Deena Francois MD Work Phone: Start: 01-08-2024 Creatinine [Mass/vol ume] in Serum or Plasma [facility] Provider Start: 08-08-2023 Radiologic exam chest 2 views Usha Navarro MD Work Phone: Start: 08-08-2023 Lipid 1996 panel - S amira or Plasma Justo Mehta WORM PACKER.JAVASCRIPT PROGRAMMER Work Phone: Start: 07-25-2023 Iadna s aureus [...] panel - Serum or Plasma Lipid Screening [facility] Start: 08-08-2028 Lipid panel Lipid Screening [facility] Start: 05-04-2027 Diabetes Screening Diabetes Screening [facility] Start: 05-04-2027 Screening for malignant neoplasm of colon Cologuard (FIT-DNA) [facility] Start: 08-08-2026 Diabetes Screening Diabetes Screening [facility] Start: 08-03-2026 Diabetes Screening Diabetes Screening [facility] Start: 08-02-2026 Diabetes Screening Diabetes Screening [facility] Start: 07-24-2026 Diabetes Screening Diabetes Screening [facility] Start: 05-26-2025 End: 05-26-2025 ambulatory 05/26/2025 12:30 PM EDT Procedure Cardiology [address] [place] [address] DX: Aortic root dilation [I77.810 (ICD-10-CM)]; History of aortic valve replacement Cardiology Comment on above: DX: Aortic root dilation [I77.810 (ICD-1 0-CM)]; History of aortic valve replacement Start: 05-26-2025 End: 05-26-2025 Patient encounter procedure Vascular Medicine Comment on above: DX: Aortic root dilation [I77.810 (ICD-1 0-CM)]; History of aortic valve replacement Start: 05-10-2025 Influenza vaccination Influenza Vaccine (Season Ended) [facility] Start: 12-01-2024 BP Controlled (<130/80) BP Controlled (<130/80) [facility] Start: 11-04-2024 BP Controlled (<130/80) BP Controlled (<130/80) [facility] Start: 09-09-2024 Advance Directive Discussion Advance Directive Discussion [facility] Start: 09-09-2024 Medicare Advantage Annual Wellness Visit Medicare Advantage Annual Wellness Visit [facility] Start: 08-19-2024 End: 08-19-2024 Patient encounter procedure 08/19/2024 10:00 AM EST Office Visit [facility] [address] [place] [address] Harriet Hogan [facility] [address] [place] [address] consult [facility] Comment on above: consult Start: 06-24-2024 End: 06-24-2024 Patient encounter procedure 06/24/2024 1:30 PM EDT Office Visit Cardiology [address] [place] [address] Edmund Kamara MD [address] [place], [place] [id number] HOCM (hypertrophic obstructive cardiomyopathy) (HCC) [I42.1] Cardiology Comment on above: HOCM (hypertrophic obstructive cardiomyo uzma) (HCC) [I42.1] Start: 06-24-2024 End: 06-24-2024 ambulatory 06/24/2024 1:00 PM EDT Results Only Cardiology [address] [place] [address] EKG Cardiology Comment on above: EKG Start: 05-10-2024 Covid-19 Vaccine ( season) Covid-19 Vaccine ( season) [facility] Start: 05-10-2024 Influenza vaccination [facility] Start: 05-05-2024 Screening for malignant neoplasm of colon Colorectal Cancer Screening [facility] Start: 04-28-2024 End: 04-28-2024 Patient encounter procedure 04/28/2024 12:00 PM EDT Appointment Cardiology Lab [facility] [place] [address] HOCM (hypertrophic obstructive cardiomyopathy) (HCC) [I42.1] Cardiology Lab Comment on above: HOCM (hypertrophic obstructive cardiomyo uzma) (HCC) [I42.1] Start: 04-28-2024 Subsequent hospital visit by physician 04/28/2024 12:00 PM EDT Hospital Encounter Cardiology Lab [address] [place] [address] HOCM (hypertrophic obstructive cardiomyopathy) (HCC) [I42.1] Cardiology Lab Comment on above: HOCM (hypertrophic obstructive cardiomyo uzma) (HCC) [I42.1] Start: 04-02-2024 Screening for malignant neoplasm of colon Cologuard (FIT-DNA) [facility] Start: 03-25-2024 End: 03-25-2024 Patient encounter procedure 03/25/2024 2:45 PM EDT Office Visit Cardiology [address] [place] [id number] Deena Francois MD [address] [place] [address] Essential hypertension [I10] Cardiology Comment on above: Essential hypertension [I10] Start: 03-25-2024 End: 06-24-2024 CREATININE BLD CREATININE BLD Lab Routine History of aortic valve replacement Expected: 03/25/2024, Expires: 06/24/2024 [facility] Comment on above: Expected: 03/25/2024, Expires: Start: 03-25-2024 End: 03-25-2024 Patient encounter procedure 03/25/2024 1:30 PM EDT Office Visit Cardiology [address] [place] [id number] Essential hypertension [I10] Cardiology Comment on above: Essential hypertension [I10] Start: 03-25-2024 End: 03-25-2024 ambulatory 03/25/2024 1:00 PM EDT Results Only Cardiology [address] [place] [id number] Essential hypertension [I10] Cardiology Comment on above: Essential hypertension [I10] Start: 01-08-2024 End: 01-08-2024 Patient encounter procedure 01/08/2024 3:15 PM EDT Office Visit Cardiology [address] [place] [id number] Deena Francois MD [address] [place] [address] Hypertrophic cardiomyopathy (HCC) [I42.2] Cardiology Comment on above: Hypertrophic cardiomyopathy (HCC) [I42.2 ] Start: 01-08-2024 End: 01-08-2024 Patient encounter procedure Radiology Comment on above: Hypertrophic cardiomyopathy (HCC) [I42.2 ] Start: 12-18-2023 End: 10-17-2024 Ct angiography chest w/contrast/noncontrast CTA CHEST (GATED) W IVCON Radiology Routine Vasculopathy Adverse effect of treatment, initial encounter Expected: 12/18/2023, Expires: 10/17/2024 [facility] Work Phone: Comment on above: Expected: 12/18/2023, Expires: Start: 12-18-2023 End: 09-18-2024 Echocardiography ECHO Cardiology Routine Hypertrophic cardiomyopathy (HCC) S/P AVR (aortic valve replacement) and aortoplasty Expected: 12/18/2023, Expires: 09/18/2024 [facility] Work Phone: Comment on above: Expected: 12/18/2023, Expires: 5 Start: 09-09-2023 Advance Directive Discussion Advance Directive Discussion [facility] Start: 09-09-2023 Behavioral Health Screening Behavioral Health Screening [facility] Start: 09-09-2023 Depression Assessment Depression Assessment [facility] Start: 08-03-2023 End: 11-02-2023 Basic metabolic 2000 panel - Serum or Plasma BASIC METABOLIC PNL Lab Routine Nonrheumatic aortic valve stenosis Primary hypertension Expected: 08/03/2023, Expires: 11/02/2023 [facility] Work Phone: Comment on above: Expected: 08/03/2023, Expires: Start: 08-03-2023 End: 11-02-2023 CBC panel - Blood by Automated count CBC Lab Routine Nonrheumatic aortic valve stenosis Primary hypertension Expected: 08/03/2023, Expires: 11/02/2023 [facility] Work Phone: Comment on above: Expected: 08/03/2023, Expires: 4 Start: 08-03-2023 End: 11-02-2023 Lipid 1996 panel - Serum or Plasma LIPID PANEL BASIC Lab Routine Nonrheumatic aortic valve stenosis Primary hypertension Expected: 08/03/2023, Expires: 11/02/2023 [facility] Work Phone: Comment on above: Expected: 08/03/2023, Expires: 4 Start: 08-02-2023 End: 11-01-2023 CBC panel - Blood by Automated count CBC Lab Routine Surgery follow-up Expected: 08/02/2023, Expires: 11/01/2023 [facility] Work Phone: Comment on above: Expected: 08/02/2023, Expires: 4 Start: 08-02-2023 End: 11-01-2023 Comprehensive metabolic 2000 panel - Serum or Plasma COMP METABOLIC PANEL Lab Routine Surgery follow-up Expected: 08/02/2023, Expires: 11/01/2023 [facility] Work Phone: Comment on above: Expected: 08/02/2023, Expires: 4 Start: 06-10-2023 Patient discharge [facility] Start: 05-10-2023 Covid-19 Vaccine () Covid-19 Vaccine () [facility] Start: 05-10-2023 Influenza vaccination [facility] Start: 09-09-2022 ADVANCE DIRECTIVE DISCUSSION ADVANCE DIRECTIVE DISCUSSION [facility] Start: 09-09-2022 DEPRESSION ASSESSMENT DEPRESSION ASSESSMENT [facility] Start: 07-31-2022 Diagnostic bone marrow biopsies DX BONE MARROW BIOPSIES [facility] Work Phone: Start: 07-31-2022 Catheterization of vein [facility] Work Phone: Start: 07-31-2022 Oxygen therapy [facility] Work Phone: Start: 07-31-2022 Patient discharge [facility] Work Phone: Start: 07-31-2022 Vital signs measurements [facility] Work Phone: Start: 07-25-2022 Patient referral [facility] Work Phone: Start: 05-10-2022 Influenza vaccination INFLUENZA (#1) [facility] Start: 04-17-2022 Lipid 1996 panel - Serum or Plasma Lipid Screening [facility] Start: 04-17-2022 LIPID SCREEN LIPID SCREEN [facility] Start: 04-09-2021 Colonoscopy COLONOSCOPY [facility] Start: 04-09-2021 COLORECTAL CANCER SCREENING COLORECTAL CANCER SCREENING [facility] Start: 04-09-2021 Screening for malignant neoplasm of colon [facility] Start: 02-16-2021 Urine microalbumin profile [facility] Start: 2020 Pneumococcal Vaccine: 65+ (1 - PCV) Pneumococcal Vaccine: 65+ (1 - PCV) [facility] Start: 2020 Pneumococcal Vaccine: 65+ (1 of 1 - PCV) Pneumococcal Vaccine: 65+ (1 of 1 - PCV) [facility] Start: 2020 PNEUMOCOCCAL: 65+ (1 - PCV) PNEUMOCOCCAL: 65+ (1 - PCV) [facility] Start: 11-14-2017 End: 11-14-2017 Appointment Appointment [facility] Work Phone: Start: 10-18-2017 End: 04-19-2017 *Hepatic Function Panel *Hepatic Function Panel [facility] Work Phone: Start: 10-18-2017 End: 04-19-2017 Lipid panel [AGGREGATE] *Lipid Profile CC PCP [facility] Work Phone: Start: 05-08-2017 End: 05-08-2017 Appointment Appointment [facility] Work Phone: Start: 05-08-2017 End: 05-08-2017 Follow Up Appt 6 months Follow Up Appt 6 months [facility] Work Phone: Start: 05-08-2017 End: 05-08-2017 MMM MMM [facility] Work Phone: Start: 04-29-2017 End: 04-29-2017 Appointment Appointment [facility] Work Phone: Start: 04-22-2017 End: 04-17-2017 *Hepatic Function Panel *Hepatic Function Panel [facility] Work Phone: Start: 04-22-2017 End: 04-17-2017 Lipid panel [AGGREGATE] *Lipid Profile CC PCP [facility] Medical [facility] Work Phone: Start: 04-19-2017 End: 04-19-2017 Appointment Appointment [facility] Work Phone: Start: 04-15-2017 End: 04-15-2017 Appointment Appointment [facility] Work Phone: Start: 11-02-2016 End: 11-02-2016 Echocardiography Echocardiogram (complete) [facility] Work Phone: Start: 11-02-2016 End: 11-02-2016 Follow Up Appt 6 months Follow Up Appt 6 months [facility] Work Phone: Start: 11-02-2016 End: 11-02-2016 PFM PFM [facility] Work Phone: Start: 10-10-2016 End: 04-10-2016 *Hepatic Function Panel *Hepatic Function Panel [facility] Work Phone: Start: 10-10-2016 End: 04-10-2016 Lipid panel [AGGREGATE] *Lipid Profile CC PCP [facility] Work Phone: Start: 04-12-2016 End: 04-12-2016 Follow Up Appt 6 months Follow Up Appt 6 months [facility] Work Phone: Start: 04-12-2016 End: 04-12-2016 MMM MMM [facility] Work Phone: Start: 03-27-2016 End: 02-27-2016 *Hepatic Function Panel *Hepatic Function Panel [facility] Work Phone: Start: 03-27-2016 End: 02-27-2016 Lipid panel [AGGREGATE] *Lipid Profile CC PCP [facility] Work Phone: Start: 02-18-2016 LIPID SCREEN LIPID SCREEN [facility] Start: 02-18-2016 PROSTATE CANCER SCREENING DISCUSSION PROSTATE CANCER SCREENING DISCUSSION [facility] Start: 02-18-2016 Prostate specific antigen measurement Prostate Cancer Screening Discussion [facility] Start: 01-23-2016 End: 02-27-2016 Mri joint upr extrem w/o dye MRI Joint Upper Extremity [facility] Work Phone: Start: 01-23-2016 End: 02-27-2016 X-ray exam of shoulder X-Ray, Shoulder [facility] Work Phone: Start: 10-10-2015 End: 02-27-2016 Follow Up Appt 6 months Follow Up Appt 6 months [facility] Work Phone: Start: 10-10-2015 End: 02-27-2016 PFM PFM [facility] Work Phone: Start: 09-29-2015 End: 09-27-2015 *Hepatic Function Panel *Hepatic Function Panel [facility] Work Phone: Start: 09-29-2015 End: 09-27-2015 Lipid panel [AGGREGATE] *Lipid Profile CC PCP [facility] Work Phone: Start: 2015 RSV Vaccine (1 - 1-dose 60+ series) RSV Vaccine (1 - 1-dose 60+ series) [facility] Start: 2015 RSV Vaccine (1 - Risk 60-74 years 1-dose series) RSV Vaccine (1 - Risk 60-74 years 1-dose series) [facility] Start: 04-11-2015 End: 04-11-2015 Follow Up Appt 6 months Follow Up Appt 6 months [facility] Work Phone: Start: 04-11-2015 End: 04-11-2015 MMM MMM [facility] Work Phone: Start: 03-14-2015 End: 03-28-2015 *Hepatic Function Panel *Hepatic Function Panel [facility] Work Phone: Start: 03-14-2015 End: 03-28-2015 Lipid panel [AGGREGATE] *Lipid Profile CC PCP [facility] Medical [facility] Work Phone: Start: 09-07-2014 End: 09-07-2014 Follow Up Appt 6 months Follow Up Appt 6 months [facility] Work Phone: Start: 09-07-2014 End: 09-07-2014 Follow Up Appt Other Follow Up Appt Other [facility] Work Phone: Start: 09-07-2014 End: 09-07-2014 PFM PFM [facility] Work Phone: Start: 09-06-2014 End: 09-14-2014 *Hepatic Function Panel *Hepatic Function Panel [facility] Work Phone: Start: 09-06-2014 End: 09-14-2014 Lipid panel [AGGREGATE] *Lipid Profile CC PCP [facility] Work Phone: Start: 07-26-2014 End: 07-26-2014 Transesophageal echocardiogram (RAGINI) Transesophageal echocardiogram (RAGINI) [facility] Work Phone: Start: 07-22-2014 End: 09-26-2015 *BMP *BMP [facility] Work Phone: Start: 07-22-2014 End: 09-26-2015 *CBC with Differential *CBC with Differential [facility] Medical [facility] Work Phone: Start: 07-22-2014 End: 09-26-2015 aPTT *PTT-Partial Thromboplastin Time [facility] Work Phone: Start: 07-22-2014 End: 09-26-2015 aPTT Coag time (PPP) *PTT-Partial Thromboplastin Time [facility] Work Phone: Start: 07-22-2014 End: 08-13-2014 Chest x-ray X-Ray, Chest, PA & Lateral [facility] Work Phone: Start: 07-22-2014 End: 09-26-2015 Coagulation factor induced.INR assay in platelet poor plasma *PT/INR [facility] Work Phone: Start: 07-22-2014 End: 07-22-2014 Echocardiography Echocardiogram (complete) [facility] Work Phone: Start: 07-22-2014 End: 07-22-2014 Follow Up Appt 6 weeks Follow Up Appt 6 weeks [facility] Work Phone: Start: 07-22-2014 End: 09-26-2015 Follow Up Appt Other Follow Up Appt Other [facility] Work Phone: Start: 07-22-2014 End: 07-22-2014 Left Heart Cath Left Heart Cath [facility] Work Phone: Start: 07-22-2014 End: 07-22-2014 MMM MMM [facility] Work Phone: Start: 02-17-2014 DIABETES SCREEN DIABETES SCREEN [facility] Start: 02-17-2014 Diabetes Screening Diabetes Screening [facility] Start: 2005 Pneumococcal Vaccine: 50+ (1 of 1 - PCV) Pneumococcal Vaccine: 50+ (1 of 1 - PCV) [facility] Start: 2005 SHINGRIX VACCINE (1 of 2) SHINGRIX VACCINE (1 of 2) [facility] Start: 2000 COLOGUARD (FIT-DNA) COLOGUARD (FIT-DNA) [facility] Start: [address] COLONOGRAPHY [facility] Start: 2000 FECAL OCCULT BLOOD FECAL OCCULT BLOOD [facility] Start: 2000 Screening for malignant neoplasm of colon [facility] Start: 2000 SIGMOIDOSCOPY SIGMOIDOSCOPY [facility] Start: 1973 Annual PCP Team Chronic Disease Visit Annual PCP Team Chronic Disease Visit [facility] Start: 1973 Anxiety Screening Anxiety Screening [facility] Start: 1973 BP Controlled (<130/80) BP Controlled (<130/80) [facility] Start: 1973 Depression Screening Depression Screening [facility] Start: 1973 HEPATITIS C SCREENING HEPATITIS C SCREENING [facility] Start: 1973 Hepatitis C screening Hepatitis C Screening [facility] Start: 03-23-1956 COVID-19 VACCINE (#1) COVID-19 VACCINE (#1) [facility] Bone marrow biopsy, needle or trocar [facility] Work Phone: CTA Chest vessels W contrast IV CTA CHEST (GATED) W IVCON Radiology Routine Vasculopathy Adverse effect of treatment, initial encounter 01/08/2024 3:01 PM EDT [facility] Work Phone: End: 04-24-2025 CTA Chest vessels W contrast IV CTA CHEST (GATED) W IVCON Radiology Routine Encounter for preprocedural cardiovascular examination 1 Occurrences starting 03/25/2024 until 04/24/2025 [facility] Comment on above: 1 Occurrences starting 03/25/2024 until 04/24/2025 End: 08-02-2024 ECG COMPLETE ECG COMPLETE ECG Routine Surgery follow-up 1 Occurrences starting 08/02/2023 until 08/02/2024 [facility] Work Phone: Comment on above: 1 Occurrences starting 08/02/2023 until 08/02/2024 End: 08-03-2024 ECG COMPLETE ECG COMPLETE ECG Routine Nonrheumatic aortic valve stenosis Primary hypertension 1 Occurrences starting 08/03/2023 until 08/03/2024 [facility] Work Phone: Comment on above: 1 Occurrences starting 08/03/2023 until 08/03/2024 End: 01-07-2025 ECG COMPLETE ECG COMPLETE ECG Routine Essential hypertension S/P AVR (aortic valve replacement) and aortoplasty Chronic heart failure with preserved ejection fraction (HCC) HOCM (hypertrophic obstructive cardiomyopathy) (HCC) 1 Occurrences starting 01/08/2024 until 01/07/2025 [facility] Work Phone: Comment on above: 1 Occurrences starting 01/08/2024 until 01/07/2025 End: 03-25-2025 ECG COMPLETE ECG COMPLETE ECG Routine Aortic root dilation (HCC) History of aortic valve replacement 1 Occurrences starting 03/25/2024 until 03/25/2025 [facility] Work Phone: Comment on above: 1 Occurrences starting 03/25/2024 until 03/25/2025 End: 06-22-2025 ECG COMPLETE ECG COMPLETE ECG Routine NSVT (nonsustained ventricular tachycardia) (HCC) HOCM (hypertrophic obstructive cardiomyopathy) (HCC) 1 Occurrences starting 06/22/2024 until 06/22/2025 [facility] Work Phone: Comment on above: 1 Occurrences starting 06/22/2024 until 06/22/2025 End: 08-03-2024 Echocardiography ECHO Cardiology Routine Nonrheumatic aortic valve stenosis Primary hypertension 1 Occurrences starting 08/03/2023 until 08/03/2024 [facility] Work Phone: Comment on above: 1 Occurrences starting 08/03/2023 until 08/03/2024 End: 01-07-2025 Echocardiography ECHO Cardiology Routine Essential hypertension S/P AVR (aortic valve replacement) and aortoplasty Chronic heart failure with preserved ejection fraction (HCC) HOCM (hypertrophic obstructive cardiomyopathy) (HCC) 1 Occurrences starting 01/08/2024 until 01/07/2025 [facility] Comment on above: 1 Occurrences starting 01/08/2024 until 01/07/2025 End: 03-25-2025 Echocardiography ECHO Cardiology Routine Aortic root dilation (HCC) History of aortic valve replacement 1 Occurrences starting 03/25/2024 until 03/25/2025 [facility] Comment on above: 1 Occurrences starting 03/25/2024 until 03/25/2025 End: 03-27-2025 HOLTER MONITOR 48 HOUR HOLTER MONITOR 48 HOUR ECG Routine HOCM (hypertrophic obstructive cardiomyopathy) (HCC) 1 Occurrences starting 03/27/2024 until 03/27/2025 [facility] Comment on above: 1 Occurrences starting 03/27/2024 until 03/27/2025 LUNG DIFFUSION CAPAC ITY (DLCO) LUNG DIFFUSION CAPACITY (DLCO) PFT Routine Nonrheumatic aortic valve stenosis Pre-operative cardiovascular examination Aortic valve disorder Hypertrophic cardiomyopathy (HCC) 07/24/2023 7:26 AM EST [facility] Work Phone: End: 08-21-2024 MRA CHEST CARDIOVASCULAR WO IVCON MRA CHEST CARDIOVASCULAR WO IVCON Radiology Routine Aortic valve disorder 1 Occurrences starting 07/23/2023 until 08/21/2024 [facility] Work Phone: Comment on above: 1 Occurrences starting 07/23/2023 until 08/21/2024 MRA CHEST CARDIOVASC ULAR WO IVCON MRA CHEST CARDIOVASCULAR WO IVCON Radiology Routine Aortic valve disorder 07/24/2023 5:20 PM EST [facility] Work Phone: MRI CARDIAC MORPH FU NC WO/W IVCON MRI CARDIAC MORPH FUNC WO/W IVCON Radiology Routine Nonrheumatic aortic valve stenosis Pre-operative cardiovascular examination Aortic valve disorder Hypertrophic cardiomyopathy (HCC) 07/24/2023 5:20 PM EST [facility] Work Phone: MRI CARDIAC VELOCITY FLOW MAP MRI CARDIAC VELOCITY FLOW MAP Radiology Routine Nonrheumatic aortic valve stenosis Pre-operative cardiovascular examination Aortic valve disorder Hypertrophic cardiomyopathy (HCC) 07/24/2023 5:20 PM EST [facility] Work Phone: NVTA INVITAE CARDIOL OGY PANEL [facility] INVITAE CARDIOLOGY PANEL Lab Routine HOCM (hypertrophic obstructive cardiomyopathy) (HCC) Ordered: 08/19/2024 [facility] Work Phone: Comment on above: Ordered: 08/19/2024 OUTSIDE VENDOR CARDI AC OUTPATIENT EXTENDED RHYTHM RECORDING (WITHOUT TELEMETRY) OUTSIDE VENDOR CARDIAC OUTPATIENT EXTENDED RHYTHM RECORDING (WITHOUT TELEMETRY) Holter Routine HOCM (hypertrophic obstructive cardiomyopathy) (HCC) Ordered: 04/30/2024 [facility] Work Phone: Comment on above: Ordered: 04/30/2024 Patient Education [facility] [employer] [facility] Work Phone: Patient referral [facility] Work Phone: End: 08-31-2024 Radiologic exam chest 2 views XR CHEST 2V FRONTAL/LAT Radiology Routine Surgery follow-up 1 Occurrences starting 08/02/2023 until 08/31/2024 [facility] Work Phone: Comment on above: 1 Occurrences starting 08/02/2023 until 08/31/2024 SPIROMETRY BASELINE ONLY SPIROME TRY BASELINE ONLY PFT Routine Nonrheumatic aortic valve stenosis Pre-operative cardiovascular examination Aortic valve disorder Hypertrophic cardiomyopathy (HCC) 07/24/2023 7:26 AM EST [facility] Work Phone: End: 03-27-2025 STRESS ECHO TREADMILL STRESS ECHO TREADMILL Cardiology Routine HOCM (hypertrophic obstructive cardiomyopathy) (HCC) 1 Occurrences starting 03/27/2024 until 03/27/2025 [facility] Work Phone: Comment on above: 1 Occurrences starting 03/27/2024 until 03/27/[address] [facility] [address] & VAS [facility] Immunizations Immunization Date Immunization Notes Care Provider Amadou paniagua 02-16-2011 tetanus toxoid, redu luis enrique diphtheria toxoid, and acellular pertussis vaccine, adsorbed Charlotte Garcia RT(R) [facility] Work Phone: Payers Date Payer Category Payer Self-pay [id number] 2022 Medicare [employer] MEDICARE A ETNA MEDICARE PPO [id number] 2022-Present [phone] [address] [place] [address] PPO [id number] 2022 Medicare (Managed Care) [employer] DICARE [id number] 2022 Private Health Insurance [id number] 2013 Unknown [employer] HIOCOMP [id number] 2013-Present [phone] [address] [facility] [address] [place] [address] [facility] [id number] 2004 Unknown [id number] 2004 Unknown [id number] Unknown [id number] Unknown [id number] Unknown [id number] Unknown [id number] Unknown [id number] Social History Date Type Detail Facility Start: 10-04-2021 End: 06-10-2023 Tobacco smoking status FLIS Unknown if ever smoked [facility] Start: 1955 Sex Assigned At Male [facility] Start: 03-13-2011 End: 11-04-2023 Tobacco smoking status NHIS Never smoked tobacco [facility] Start: 03-13-2011 Tobacco use and exposure User of smokeless tobacco [facility] History of tobacco use Snuff User [facility] Start: 04-26-2022 End: 06-24-2024 Alcohol intake Current drinker of alcohol (finding) [facility] Start: 1955 Sex Assigned At Not on file C [facility] Start: 04-26-2022 End: 04-28-2024 History of Social function [facility] Start: 04-26-2022 End: 04-28-2024 Tobacco use panel [facility] National Score (1-100), lower number is lower risk 59 [facility] Start: 12-10-2024 Sex Male (finding) [facility] Medical Equipment Procedure Code Equipment Code Equipment Original Text Equipment Identifier Dates [place] Thk1.65mm P tfe 4x.5in Cardiovascular Sterile - [id number] Start: 07-29-2023 Valve [place]queen In spiris Resilia 25mm Pericardial Aortic Bioprosthesis - [id number] Start: 07-29-2023 Goals Date Patient Goal Desired Activity /State Personal health goal Functional Status Date Assessment Result Facility 08-05-2023 Are you deaf, or do you have serious difficulty hearing No 08/05/2023 12:43 PM Nhan Desai RN [facility] 08-05-2023 Are you blind, or do you have serious difficulty seeing, even when wearing glasses No 08/05/2023 12:43 PM Nhan Desai RN [facility] 08-05-2023 Do you have serious difficulty walking or climbing stairs No 08/05/2023 12:43 PM Nhan Desai RN [facility] 08-05-2023 Do you have difficul ty dressing or bathing No 08/05/2023 12:43 PM Nhan Desai RN [facility] 08-05-2023 Because of a physica l, mental, or emotional condition, do you have difficulty doing errands alone such as visiting a physician's office or shopping No 08/05/2023 12:43 PM Nhan Desai RN [facility] [place] Mental Status Date Assessment Result Facility 08-05-2023 Because of a physica l, mental, or emotional condition, do you have serious difficulty concentrating, remembering, or making decisions No 08/05/2023 12:43 PM Nhan Desai, MARCUS No [facility] 07-31-2022 Cognitive function Voice/Name Elsa Cuenca [facility] [place] [facility] Phone: Clinical Notes 05-20-2006 to 03-05-2025 Telephone Encounter - Garima Garcia - 03/05/2025 8:42 AM EDTTelephone Encounter - Garima Garcia - 03/05/2025 8:42 AM Harriet Ogden LGC - 08/19/2024 10:00 AM ESTPatient Instructions Note Date & Type Note Facility 03-05-2025 Telephone encount er Note Patient used Yibailinhart to request a refill on the medication(s) below: Requested Prescriptions Pending Prescriptions Disp Refills empagliflozin (JARDIANCE) 10 mg tablet [Pharmacy Med Name: Jardiance 10 MG Oral Tablet] 90 tablet 1 Sig: Take 1 tablet by mouth once daily with breakfast PHARMACY NAME [facility]/ / PHONE NUMBER: [phone] Pickup RX Physician's Name: Dr. Levin Last seen in office:03/25/24 Patient has appt on 05/26/25 If last appointment greater than one year or no follow up scheduled, sent to schedulers Ashley Garcia 03/05/2025 [facility] 03-05-2025 Miscellaneous Notes Formattin g of this note is different from the original. Patient used Yibailinhart to request a refill on the medication(s) below: Requested Prescriptions Pending Prescriptions Disp Refills empagliflozin (JARDIANCE) 10 mg tablet [Pharmacy Med Name: Jardiance 10 MG Oral Tablet] 90 tablet 1 Sig: Take 1 tablet by mouth once daily with breakfast PHARMACY NAME [facility]/ / PHONE NUMBER: [phone] Pickup RX Physician's Name: Dr. Levin Last seen in office:03/25/24 Patient has appt on 05/26/25 If last appointment greater than one year or no follow up scheduled, sent to schedulers Ashley Garcia 03/05/2025 documented in this encounter [facility] 12-10-2024 Discharge summary [facility] 08-19-2024 History of Present illness Narrative GENETIC [...] diagnosed with cardiomyopathy, including hypertrophic cardiomyopathy (PMID: [id number], [id number]). Recommended screening of first-degree relatives. Discussed the [...] need to be regularly evaluated by a professor computer science for HCM. We reviewed the options for [...] it will be billed to insurance through [employer]'s typical process. If there is an out of pocket expense of greater than $100 [employer] (owned by [employer]) will make an automated call requesting patient [...] more information about insurance billing please contact [employer] billing at [email or web address] or [phone] If there is no insurance coverage the [...] and should receive regular screening by a professor computer science. If relatives do not have the genetic [...] siblings, children) should be evaluated by a professor computer science familiar with HCM at the time of [...] of Hypertrophic Cardiomyopathy: A Report of the [place] [employer]/[place] College [employer] Joint Committee on Clinical [...] for a total of 30 minutes in [id number] counseling. This plan is being carried out under oversight of Dr. Priscilla Lu, Clinical Baggage Clerk. This note is available to the patient through [employer] and will be sent to the referring provider through [employer] or the US Mail as necessary. Harriet Hogan MS, [facility] Licensed, Certified Genetic Counselor [facility] CC: Dr. Deena Lu documented in this encounter [facility] 08-19-2024 Note HNO ID: [id number] Author: HARRIET HOGAN LGC Service: ? Author [...] diagnosed with cardiomyopathy, including hypertrophic cardiomyopathy (PMID: [id number], [id number]). Recommended screening of first-degree relatives. Discussed the [...] need to be regularly evaluated by a professor computer science for HCM. We reviewed the options for genetic testing including a cardiomyopathy/arrhythmia panel with the option for insurance coverage, self pay or sponsored testing. The patient elected to proceed with the [employer] Cardiomyopathy and Arrhythmia program which is a sponsored genetic test, this means, if the testing is not covered by insurance this program will cover the cost. However, if this genetic testing is a covered benefit through insurance it will be billed to insurance through [employer]'s typical process. If there is an out of pocket expense of greater than $100 [employer] (owned by [employer]) will make an automated call requesting patient call billing department back; if expense of greater than $250, a live person will call and hold the bill for 21 days for them to call and determine if there are other available options to reduced the cost of testing. Th (more content not included)... [facility] 06-24-2024 History of Present illness Narrative Images from the original note were not included. [facility] Department of Cardiovascular Medicine SECTION OF CARDIAC PACING and ELECTROPHYSIOLOGY OUTPATIENT VISIT DATE June 24, 2024 OUTPATIENT VISIT TYPE NEW PRIMARY CARE PHYSICIAN: ABDIEL MATHEWS [address] [place] [address] REFERRING PHYSICIAN: Deena Francois MD [address] [address] NURSING INTAKE HISTORY: Mr. Henson is a [...] CC echocardiographic exam was performed on 03/25/2024. [facility] : 05/05/2024-05/19/2024 IRHYTHM FINDINGS: Patient had a [...] may have occurred. Edmund Kamara MD Pager: [phone] Office: [phone] I personally examined the patient and repeated [...] and medical regimen Referring Physician: ABDIEL MATHEWS [address] [place] [address] Deena Francois MD [address] [place] [address] documented in this encounter [facility] 06-24-2024 Note HNO ID: [id number] Author: EDMUND KAMARA MD Service: ? Author Type: Physician Type: Progress Notes Filed: 06/24/2024 17:46 Note Text: [facility] Department of Cardiovascular Medicine SECTION OF CARDIAC PACING and ELECTROPHYSIOLOGY OUTPATIENT VISIT DATE June 24, 2024 OUTPATIENT VISIT TYPE NEW PRIMARY CARE PHYSICIAN: ABDIEL MATHEWS [address] [id number] REFERRING PHYSICIAN: Deena Francois MD [address] [place] [address] NURSING INTAKE HISTORY: Mr. Henson is a [...] #55). There is (more content not included)... [facility] 06-08-2024 Telephone encounter Note Images from the original note were not included. Deena Francois MD [facility] Clinical Nurse Phone Pool Cc: Garima Garcia Please, let patient know that I reviewed Zio: there are some NSVT, and I would like him to see an EP within the next couple of weeks to discuss ICD. Thanks, PS: Kiarra, please, can you make sure patient is seen by EP next week? Thnaks Messaged patient Lester Lewis RN [facility] 06-08-2024 Miscellaneous Notes Images from the original note were not included. Deena Francois MD [facility] Clinical Nurse Phone Pool Cc: Garima Garcia Please, let patient know that I reviewed Zio: there are some NSVT, and I would like him to see an EP within the next couple of weeks to discuss ICD. Thanks, PS: Kiarra, please, can you make sure patient is seen by EP next week? Thnaks Messaged patient Lester Lewis RN documented in this encounter [facility] 05-05-2024 Telephone encounter Note Deena Francois MD This looks like a CARD rx. [facility] 05-05-2024 Miscellaneous Notes Deena Francois MD This looks like a CARD rx. documented in this encounter [facility] 05-05-2024 Telephone encounter Note Patient called and asked that office notes and stress echo be sent sent Dr. Mathews [phone] received fax confirmation Goldie Leger May 05, 2024 8:50 AM [facility] 05-05-2024 Miscellaneous Notes Patient called and asked that office notes and stress echo be sent sent Dr. Mathews [phone] received fax confirmation Goldie Leger May 05, 2024 8:50 AM documented in this encounter [facility] 04-30-2024 Telephone encounter Note ----- Message from [...] it will be difficult to come to [place] for holter monitor pickup/placement, so I let him know I will ask Dr. Levin about a Zio Patch, which can be mailed to him. I will follow up with Dr. Levin. Marita Elizondo RN [facility] 04-30-2024 Miscellaneous Notes ----- Message from Deena [...] it will be difficult to come to [place] for holter monitor pickup/placement, so I let him know I will ask Dr. Levin about a Zio Patch, which can be mailed to him. I will follow up with DrWillie Elizondo RN documented in this encounter [facility] 04-30-2024 Note HNO ID: [id number] Author: CARLOS SYLVESTER MD Service: ? Author [...] and VE Triplets were rare (<1.0%, 7). [facility] 04-27-2024 Telephone encounter Note Spoke with patient regarding reminder for stress test tomorrow and given instructions and reviewed to take all medications including metoprolol as normal. [facility] 04-27-2024 Miscellaneous Notes Spoke with patient regarding reminder for stress test tomorrow and given instructions and reviewed to take all medications including metoprolol as normal. documented in this encounter [facility] 04-23-2024 Telephone encounter Note Excellent numbers. No change if he feels well. Thanks AH Messaged patient Lester Lewis RN [facility] 04-23-2024 Miscellaneous Notes Excellent numbers. No change if he feels well. Thanks AH Messaged patient Lester Lewis RN April 20, 2024 Patient Contact Number: [phone] (home) [phone] (work) Patient last seen within the last [...] Yes Garima Garcia documented in this encounter [facility] 04-20-2024 Telephone encounter Note April 20, 2024 Patient Contact Number: [phone] (home) [phone] (work) Patient last seen within the last [...] next three business days. Yes Garima Garcia [facility] 04-01-2024 Telephone encounter Note Images from the original note were not included. Deena Francois MD [facility] Clinical Nurse Phone Pool Please, let Ross [...] instructions from Dr. Levin. Marita Elizondo RN [facility] 04-01-2024 Miscellaneous Notes Images from the original note were not included. Deena Francois MD [facility] Clinical Nurse Phone Pool Please, let Ross [...] Marita Elizondo RN documented in this encounter [facility] 03-25-2024 Instructions Edmund Allen MD - 03/25/2024 3:09 PM EDT - Please obtain blood pressure monitor, I recommend Omron blood pressure monitor (arm, not wrist) cuff documented in this encounter [facility] 03-25-2024 Note HNO ID: [id number] Author: DEENA FRANCOIS MD Service: ? Author Type: Physician Type: Progress Notes Filed: 06/05/2024 10:41 Note Text: [facility] Department of Cardiovascular Medicine SECTION OF CLINICAL CARDIOLOGY OUTPATIENT VISIT DATE March 25, 2024 OUTPATIENT VISIT TYPE ESTABLISHED PRIMARY CARE PHYSICIAN: ABDIEL MATHEWS [address] [place] [address] REFERRING PHYSICIAN: Deena Francois MD [address] [place] [address] CHIEF COMPLAINT: Follow up HISTORY OF PRESENT [...] The left ventri (more content not included)... [facility] 03-25-2024 History of Present illness Narrative Images from the original note were not included. [facility] Department of Cardiovascular Medicine SECTION OF CLINICAL CARDIOLOGY OUTPATIENT VISIT DATE March 25, 2024 OUTPATIENT VISIT TYPE ESTABLISHED PRIMARY CARE PHYSICIAN: ABDIEL MATHEWS [address] [place] [address] REFERRING PHYSICIAN: Deena Francois MD [address] [address] CHIEF COMPLAINT: Follow up HISTORY OF PRESENT [...] aortic pathology. AORTIC ROOT: 4.5 cm measured [id number] No significant interval change mid ASCENDING THORACIC AORTA: 3.9 cm Interval decrease in size, prior diameter 4.5 cm CORONARY ANATOMY: normal origin of the coronary arteries. Mild calcified atherosclerotic changes of the coronary arteries. However, the current study is not optimized for coronary assessment. Laborer Tanbark: REINALDO Transcribe Date/Time: Jan 09 2024 8:06A [...] * * Final * * * RP Laborer Tanbark: ZAC Transcribe Date/Time: Jul 24 2023 4:11P [...] >50 pounds Edmund Allen MD Resident PGY-3 [facility] 03/25/2024 CONTACT INFORMATION: Deena Francois MD documented in this encounter [facility] 03-18-2024 Telephone encounter Note Sent to nurse pool in error. There is already a request being processed for this . Please disregard [facility] 03-18-2024 Miscellaneous Notes Sent to nurse pool in error. There is already a request being processed for this . Please disregard Patient used MyChart to request a refill on the medication(s) below: Requested Prescriptions Pending Prescriptions Disp Refills empagliflozin (JARDIANCE) 10 mg tablet 90 tablet 1 Sig: Take 1 tablet by mouth daily with breakfast. [place] PHONE NUMBER: [phone] Pickup RX Physician's Name: Deena Francois MD Last seen in office: 01/08/2024 If last appointment greater than one year or no follow up scheduled, sent to schedulers Ashley Yeh 03/18/2024 documented in this encounter [facility] 03-18-2024 Telephone encounter Note Patient used MyChart to request a refill on the medication(s) below: Requested Prescriptions Pending Prescriptions Disp Refills empagliflozin (JARDIANCE) 10 mg tablet 90 tablet 1 Sig: Take 1 tablet by mouth daily with breakfast. [facility]ACY NAME [facility], [place]) / PHONE NUMBER: [phone] Pick RX Physician's Name: Deena Francois MD Last seen in office: 01/08/2024 If last appointment greater than one year or no follow up scheduled, sent to schedulers Ashley Yeh 03/18/2024 [facility] 03-13-2024 Telephone encounter Note Pharmacy electronic RX request to request a refill on the medication(s) below: Requested Prescriptions Pending Prescriptions Disp Refills empagliflozin (JARDIANCE) 10 mg tablet [Pharmacy Med Name: Jardiance 10 MG Oral Tablet] 90 tablet 3 Sig: Take 1 tablet by mouth daily with breakfast. PHARMACY NAME [facility] ([place], [place]) / PHONE NUMBER: [phone] Pickup RX Physician's Name: Deena Francois MD Last seen in office: 01/08/2024 If last appointment greater than one year or no follow up scheduled, sent to schedulers Ashley Yeh 03/13/2024 [facility] 03-13-2024 Miscellaneous Notes Pharmacy electronic RX request to request a refill on the medication(s) below: Requested Prescriptions Pending Prescriptions Disp Refills empagliflozin (JARDIANCE) 10 mg tablet [Pharmacy Med Name: Jardiance 10 MG Oral Tablet] 90 tablet 3 Sig: Take 1 tablet by mouth daily with breakfast. PHARMACY NAME [facility] [place], [place]) / PHONE NUMBER: [phone] Pickup RX Physician's Name: Deena Francois MD Last seen in office: 01/08/2024 If last appointment greater than one year or no follow up scheduled, sent to schedulers Ashley Yeh 03/13/2024 documented in this encounter [facility] 01-08-2024 Instructions Deena Francois MD - 01/08/2024 [...] to reassess gradients documented in this encounter [facility] 01-08-2024 History of Present illness Narrative Images from the original note were not included. [facility] Department of Cardiovascular Medicine SECTION OF CLINICAL CARDIOLOGY OUTPATIENT VISIT DATE January 08, 2024 OUTPATIENT VISIT TYPE ESTABLISHED PRIMARY CARE PHYSICIAN: ABDIEL MATHEWS [address] [place] [address] REFERRING PHYSICIAN: Deena Francois MD [address] [phone] CHIEF COMPLAINT: None, has just completed cardiac [...] * * Final * * * RP Laborer Tanbark: [employer] Transcribe Date/Time: Jul 24 2023 4:11P Dictated [...] aortic pathology. AORTIC ROOT: 4.5 cm measured [id number] No significant interval change mid ASCENDING THORACIC AORTA: 3.9 cm Interval decrease in size, prior diameter 4.5 cm CORONARY ANATOMY: normal origin of the coronary arteries. Mild calcified atherosclerotic changes of the coronary arteries. However, the current study is not optimized for coronary assessment. Laborer Tanbark: [facility] Transcribe Date/Time: Jan 09 2024 8:06A Dictated [...] Deena Francois MD documented in this encounter [facility] 01-08-2024 Note HNO ID: [id number] Author: DEENA FRANCOIS MD Service: ? Author Type: Physician Type: Progress Notes Filed: 03/27/2024 10:17 Note Text: [facility] Department of Cardiovascular Medicine SECTION OF CLINICAL CARDIOLOGY OUTPATIENT VISIT DATE January 08, 2024 OUTPATIENT VISIT TYPE ESTABLISHED PRIMARY CARE PHYSICIAN: ABDIEL MATHEWS [address] [phone] REFERRING PHYSICIAN: Deena Francois MD [address] [phone] CHIEF COMPLAINT: None, has just completed cardiac [...] Trouble swallowing, Hea (more content not included)... [facility] 01-08-2024 History of Present illness Narrative [...] PATIENT PRESENTS WITH AN IMPLANTABLE OR ATTACHED SNAPPER ON: No RADIOLOGY DEPARTMENT: CT; Exam(s) Completed: Cardiac PERIPHERAL IV DATA: Site assessment: Clean,Dry and Intact, Site disposition Discontinued SIGNED BY: RT Diego(R) January 08, 2024 3:02 PM documented in this encounter [facility] 01-08-2024 Note HNO ID: [id number] Author: UZMA TOLEDO RT(R) Service: Radiology Author [...] PATIENT PRESENTS WITH AN IMPLANTABLE OR ATTACHED SNAPPER ON: No RADIOLOGY DEPARTMENT: CT; Exam(s) Completed: Cardiac PERIPHERAL IV DATA: Site assessment: Clean,Dry and Intact, Site disposition Discontinued SIGNED BY: RT Diego(Carla) January 08, 2024 3:02 PM [facility] 01-08-2024 Note HNO ID: [id number] Author: MARYJO CHIRINOS RN Service: Nursing Author [...] DATE: January 08, 2024 TIME: 2:29 PM [facility] 01-01-2024 Note HNO ID: [id number] Author: JOSIAH SUH, property maintenance technician Service: ? Author Type: Veterans Rehabilitation Counselor Type: Progress Notes Filed: 01/01/2024 08:25 Note [...] Daily Exercise Log will be scanned into [employer] once it is completed. These can be [...] Plan, and education sessions covered. Josiah Suh, Shank Faker [facility] Department of Cardiovascular Medicine Discharge [...] lb (109.8kg) INDIVIDUAL TREATMENT PLAN Program Location: [place] Program: Exit Phase II EXERCISE ASSES (more content not included)... [facility] 01-01-2024 History of Present illness Narrative [...] Daily Exercise Log will be scanned into [employer] once it is completed. These can be [...] Plan, and education sessions covered. Josiah Suh, Shank Faker [facility] Department of Cardiovascular Medicine Discharge [...] lb (109.8kg) INDIVIDUAL TREATMENT PLAN Program Location: [place] Program: Exit Phase II EXERCISE ASSESSMENT Current [...] Knowledge Test Score (#correct): (not given at [facility]) Learning Barriers: None Hyperlipidemia: Yes [...] smoked) Education Completed: Weight Mgmt;You're Heart, Angina, [place];Cardiac Risk Factors;Cardiac Tests;Cardiac Treatments;Cardiac Medications;Advanced Directives;Diaphragmatic Breathing;Cardiac A&P;Diabetic Education;Smoking Cessation Patient Understands Intervention: Yes CORE COMPONENTS IMPROVEMENT GOAL Improvement in Knowledge Test Score : (not given at [facility]) Hyperlipidemia: LDL < 100 or <70 For High Risk Patients;Knows Appropriate Level;Knows Current Level Weight: Lose BMI: <35 (BMI = 31.8) Waist: Lose Hypertension: Monitor BP at Home;Low Sodium Diet;BP <130/<80 Tobacco: (never smoked) PSYCHOSOCIAL ASSESSMENT Stress: Minimal Family Support: Yes () Education Completed: Stress Management;Anxiety Management;Emotions;Anger Management;Behavior change management expert;Depression Management;Relaxation Techniques PATIENT ENTERED QUESTIONNAIRE SCORES 01/01/2024 [...] Change;Attend Stress Management Sessions SUMMARY: Josiah Suh Shank Faker documented in this encounter [facility] 12-30-2023 Note HNO ID: [id number] Author: KATIE DECKER Shank Faker Service: ? Author Type: Shank Faker Type: Progress Notes Filed: 12/30/2023 08:20 Note [...] Daily Exercise Log will be scanned into [employer] once it is completed. These can be [...] Plan, and education sessions covered. Katie Decker, Shank Faker [facility] 12-30-2023 History of Present illness Narrative [...] Daily Exercise Log will be scanned into [employer] once it is completed. These can be [...] Plan, and education sessions covered. Katie Decker Shank Faker documented in this encounter [facility] 12-27-2023 Note HNO ID: [id number] Author: JOSIAH SUH property maintenance technician Service: ? Author Type: Veterans Rehabilitation Counselor Type: Progress Notes Filed: 12/27/2023 08:22 Note [...] Daily Exercise Log will be scanned into [employer] once it is completed. These can be [...] Plan, and education sessions covered. Josiah Suh Shank Faker [facility] 12-27-2023 History of Present illness Narrative [...] Daily Exercise Log will be scanned into [employer] once it is completed. These can be [...] Individualized Treatment Plan, and education sessions covered. Josaih Suh Shank Faker documented in this encounter [facility] 12-25-2023 Note HNO ID: [id number] Author: AVELINO ABURTO Shank Faker Service: ? Author Type: Shank Faker Type: Progress Notes Filed: 12/25/2023 08:23 Note [...] Daily Exercise Log will be scanned into [employer] once it is completed. These can be [...] Plan, and education sessions covered. Avelino Aburto Shank Faker [facility] 12-25-2023 History of Present illness Narrative [...] Daily Exercise Log will be scanned into [employer] once it is completed. These can be [...] Plan, and education sessions covered. Avelino Aburto Shank Faker documented in this encounter [facility] 12-23-2023 Note HNO ID: [id number] Author: KATIE DECKER Shank Faker Service: ? Author Type: Shank Faker Type: Progress Notes Filed: 12/23/2023 08:15 Note Text: [facility] Based Program Supervising Physician: Len Menendez [...] Daily Exercise Log will be scanned into [employer] once it is completed. These can be [...] Plan, and education sessions covered. Katie Decker Shank Faker [facility] 12-23-2023 History of Present illness Narrative Images from the original note were not included. [facility] Based Program Supervising Physician: Len Menendez [...] Daily Exercise Log will be scanned into [employer] once it is completed. These can be [...] Plan, and education sessions covered. Katie Decker Shank Faker documented in this encounter [facility] 12-20-2023 Note HNO ID: [id number] Author: JOSIAH SUH, property maintenance technician Service: ? Author Type: Veterans Rehabilitation Counselor Type: Progress Notes Filed: 12/20/2023 08:25 Note Text: Cardiac [facility] Based Program Supervising Physician: Len Menendez [...] Daily Exercise Log will be scanned into [employer] once it is completed. These can be [...] Individualized Treatment Plan, and education sessions covered. Josiha Suh, Shank Faker [facility] 12-20-2023 History of Present illness Narrative [...] Daily Exercise Log will be scanned into [employer] once it is completed. These can be [...] Plan, and education sessions covered. Josiah Suh, Shank Faker documented in this encounter [facility] 12-18-2023 Note HNO ID: [id number] Author: AVELINO ABURTO Shank Faker Service: ? Author Type: Shank Faker Type: Progress Notes Filed: 12/18/2023 08:22 Note [...] Daily Exercise Log will be scanned into [employer] once it is completed. These can be [...] Plan, and education sessions covered. Avelino Aburto Shank Faker [facility] 12-18-2023 History of Present illness Narrative [...] Daily Exercise Log will be scanned into [employer] once it is completed. These can be [...] Plan, and education sessions covered. Avelino Aburto Shank Faker documented in this encounter [facility] 12-16-2023 Note HNO ID: [id number] Author: KATIE DECKER Shank Faker Service: ? Author Type: Shank Faker Type: Progress Notes Filed: 12/16/2023 08:26 Note Text: [facility] Supervising Physician: Len Menendez [...] Daily Exercise Log will be scanned into [employer] once it is completed. These can be [...] Plan, and education sessions covered. Katie Decker Shank Faker [facility] 12-16-2023 History of Present illness Narrative Images from the original note were not included. [facility] Supervising Physician: Lne Menendez Diagnosis: Aortic Valve Replacement Phase: 2 [...] Daily Exercise Log will be scanned into [employer] once it is completed. These can be [...] Plan, and education sessions covered. Katie Decker Shank Faker documented in this encounter [facility] 12-13-2023 Note HNO ID: [id number] Author: JOSIAH SUH property maintenance technician Service: ? Author Type: [facility] Rehabilitation Counselor Type: Progress Notes Filed: 12/13/2023 08:29 Note Text: [facility] Supervising Physician: Len Menendez [...] cardiac rehabilitation. Patient has verbalized understanding of AK, angina, NTG education topic and the relation to disease managment. Patient's Daily Exercise Log will be scanned into [employer] once it is completed. These can be [...] Plan, and education sessions covered. Josiah Suh Shank Faker [facility] 12-13-2023 History of Present illness Narrative [...] cardiac rehabilitation. Patient has verbalized understanding of AK, angina, NTG education topic and the relation to disease managment. Patient's Daily Exercise Log will be scanned into [employer] once it is completed. These can be [...] Plan, and education sessions covered. Josiah Suh Shank Faker documented in this encounter [facility] 12-11-2023 Note HNO ID: [id number] Author: AVELINO ABURTO Shank Faker Service: ? Author Type: Shank Faker Type: Progress Notes Filed: 12/11/2023 08:23 Note Text: [facility] Supervising Physician: Len Menendez [...] Daily Exercise Log will be scanned into [employer] once it is completed. These can be [...] Plan, and education sessions covered. Avelino Aburto Shank Faker [facility] 12-11-2023 History of Present illness Narrative Images from the original note were not included. [facility] Supervising Physician: Len Mneendez Diagnosis: Aortic Valve Replacement Phase: 2 Monitor: [...] Daily Exercise Log will be scanned into [employer] once it is completed. These can be [...] Plan, and education sessions covered. Avelino Aburto Shank Faker documented in this encounter [facility] 12-09-2023 Note HNO ID: [id number] Author: KATIE DECKER Shank Faker Service: ? Author Type: Shank Faker Type: Progress Notes Filed: 12/09/2023 08:22 Note Text: [facility] Supervising Physician: Len Menendez [...] Daily Exercise Log will be scanned into [employer] once it is completed. These can be [...] Plan, and education sessions covered. Katie Decker, Shank Faker [facility] 12-09-2023 History of Present illness Narrative [...] Daily Exercise Log will be scanned into [employer] once it is completed. These can be [...] Plan, and education sessions covered. Katie Decker Shank Faker documented in this encounter [facility] 12-04-2023 Note HNO ID: [id number] Author: AVELINO ABURTO Shank Faker Service: ? Author Type: Shank Faker Type: Progress Notes Filed: 12/04/2023 08:19 Note Text: [facility] Supervising Physician: Len Menendez [...] Daily Exercise Log will be scanned into [employer] once it is completed. These can be [...] Plan, and education sessions covered. Avelino Aburto Shank Faker [facility] 12-04-2023 History of Present illness Narrative [...] Daily Exercise Log will be scanned into [employer] once it is completed. These can be [...] Plan, and education sessions covered. Avelino Aburto Shank Faker documented in this encounter [facility] 12-03-2023 Note HNO ID: [id number] Author: JOSIAH SUH property maintenance technician Service: ? Author Type: [facility] Rehabilitation Counselor Type: Progress Notes Filed: 12/06/2023 08:27 Note [...] Daily Exercise Log will be scanned into [employer] once it is completed. These can be [...] Plan, and education sessions covered. Josiah Suh, Shank Faker [facility] [place] [facility] Department of Cardiovascular Medicine 30 [...] lb (110.7kg) INDIVIDUAL TREATMENT PLAN Program Location: [place] EXERCISE REASSESSMENT Current Exercise at Rehab: Patient [...] Equipment orientation, Exerci (more content not included)... [facility] 12-02-2023 Note HNO ID: [id number] Author: KATIE DECKER Shank Faker Service: ? Author Type: Shank Faker Type: Progress Notes Filed: 12/02/2023 08:16 Note [...] Daily Exercise Log will be scanned into [employer] once it is completed. These can be [...] Plan, and education sessions covered. Katie Decker Shank Faker [facility] 12-02-2023 History of Present illness Narrative Images from the original note were not included. [facility] Supervising Physician: Len Menendez [...] Daily Exercise Log will be scanned into [employer] once it is completed. These can be [...] Plan, and education sessions covered. Katie Decker Shank Faker documented in this encounter [facility] 11-29-2023 Note HNO ID: [id number] Author: AVELINO ABURTO Shank Faker Service: ? Author Type: Shank Faker Type: Progress Notes Filed: 11/29/2023 08:26 Note Text: [facility] Supervising Physician: Len Menendez [...] Daily Exercise Log will be scanned into [employer] once it is completed. These can be [...] Plan, and education sessions covered. Avelino Aburto Shank Faker [facility] 11-29-2023 History of Present illness Narrative [...] Daily Exercise Log will be scanned into [employer] once it is completed. These can be [...] Plan, and education sessions covered. Avelino Aburto Shank Faker documented in this encounter [facility] 11-27-2023 Note HNO ID: [id number] Author: AVELINO ABURTO Shank Faker Service: ? Author Type: Shank Faker Type: Progress Notes Filed: 11/27/2023 08:26 Note [...] Daily Exercise Log will be scanned into [employer] once it is completed. These can be [...] Plan, and education sessions covered. Avelino Aburto Shank Faker [facility] 11-27-2023 History of Present illness Narrative Images from the original note were not included. [facility] Supervising Physician: Len Mennedez Diagnosis: Aortic Valve Replacement Phase: 2 Monitor: [...] Daily Exercise Log will be scanned into [employer] once it is completed. These can be [...] Plan, and education sessions covered. Avelino Aburto Shank Faker documented in this encounter [facility] 11-25-2023 Note HNO ID: [id number] Author: KATIE DECKER Shank Faker Service: ? Author Type: Shank Faker Type: Progress Notes Filed: 11/25/2023 08:10 Note [...] Daily Exercise Log will be scanned into [employer] once it is completed. These can be [...] Plan, and education sessions covered. Katie Decker Shank Faker [facility] 11-25-2023 History of Present illness Narrative [...] Daily Exercise Log will be scanned into [employer] once it is completed. These can be [...] Plan, and education sessions covered. Katie Decker Shank Faker documented in this encounter [facility] 11-22-2023 Note HNO ID: [id number] Author: JOSIAH SUH property maintenance technician Service: ? Author Type: Veterans Rehabilitation Counselor Type: Progress Notes Filed: 11/22/2023 08:15 Note [...] Daily Exercise Log will be scanned into [employer] once it is completed. These can be [...] Plan, and education sessions covered. Josiah Suh Shank Faker [facility] 11-22-2023 History of Present illness Narrative [...] Daily Exercise Log will be scanned into [employer] once it is completed. These can be [...] Plan, and education sessions covered. Josiah Suh Shank Faker documented in this encounter [facility] 11-20-2023 Note HNO ID: [id number] Author: AVELINO ABURTO Shank Faker Service: ? Author Type: Shank Faker Type: Progress Notes Filed: 11/20/2023 08:22 Note Text: [facility] Supervising Physician: Len Menendez [...] Daily Exercise Log will be scanned into [employer] once it is completed. These can be [...] Plan, and education sessions covered. Avelino Aburto Shank Faker [facility] 11-20-2023 History of Present illness Narrative [...] Daily Exercise Log will be scanned into [employer] once it is completed. These can be [...] Plan, and education sessions covered. Avelino Aburto Shank Faker documented in this encounter [facility] 11-18-2023 Note HNO ID: [id number] Author: KATIE DECKER Shank Faker Service: ? Author Type: Shank Faker Type: Progress Notes Filed: 11/18/2023 08:19 Note Text: [facility] Supervising Physician: Len Menendez [...] Daily Exercise Log will be scanned into [employer] once it is completed. These can be [...] Plan, and education sessions covered. Katie Decker, Shank Faker [facility] 11-18-2023 History of Present illness Narrative [...] Daily Exercise Log will be scanned into [employer] once it is completed. These can be [...] Plan, and education sessions covered. Katie Decker Shank Faker documented in this encounter [facility] 11-15-2023 Note HNO ID: [id number] Author: AVELINO ABURTO Shank Faker Service: ? Author Type: Shank Faker Type: Progress Notes Filed: 11/15/2023 08:08 Note Text: [facility] Supervising Physician: Len Menendez [...] Daily Exercise Log will be scanned into [employer] once it is completed. These can be [...] Plan, and education sessions covered. Avelino Aburto Shank Faker [facility] 11-15-2023 History of Present illness Narrative [...] Daily Exercise Log will be scanned into [employer] once it is completed. These can be [...] Plan, and education sessions covered. Avelino Aburto Shank Faker documented in this encounter [facility] 11-13-2023 Note HNO ID: [id number] Author: AVELINO ABURTO Shank Faker Service: ? Author Type: Shank Faker Type: Progress Notes Filed: 11/13/2023 08:16 Note [...] Daily Exercise Log will be scanned into [employer] once it is completed. These can be [...] Plan, and education sessions covered. Avelino Aburto Shank Faker [facility] 11-13-2023 History of Present illness Narrative [...] Daily Exercise Log will be scanned into [employer] once it is completed. These can be [...] Plan, and education sessions covered. Avelino Aburto Shank Faker documented in this encounter [facility] 11-11-2023 Note HNO ID: [id number] Author: KATIE DECKER Shank Faker Service: ? Author Type: Shank Faker Type: Progress Notes Filed: 11/11/2023 08:16 Note Text: [facility] Supervising Physician: Len Menendez [...] Daily Exercise Log will be scanned into [employer] once it is completed. These can be [...] Plan, and education sessions covered. Katie Decker Shank Faker [facility] 11-11-2023 History of Present illness Narrative [...] Daily Exercise Log will be scanned into [employer] once it is completed. These can be [...] Plan, and education sessions covered. Katie Decker Shank Faker documented in this encounter [facility] 11-08-2023 Note HNO ID: [id number] Author: LEN SANTACRUZ DO Service: ? Author Type: Shank Faker Type: Progress Notes Filed: 11/12/2023 07:57 Note Text: Attestation signed by Len Santacruz DO at 11/12/2023 7:57 AM I have reviewed the detailed Individualized Treatment Plan assessment and plan for the patient as described above and agree with the recommendations. Len Santacruz DO, [facility], [facility] Clinical and Preventive Cardiology Department of Medicine and Division of Cardiology, [facility] Staff Meat And Poultry Inspector, Osman Emery Department of Cardiovascular Medicine/[facility] V[facility] [place], [facility] Clinical application assistant Profressor of Medicine, [facility] Program Supervising [...] Daily Exercise Log will be scanned into [employer] once it is completed. These can be [...] Plan, and education sessions covered. Avelino Aburto, Shank Faker Patient's 30 day ITP located in 30 day doc flowsheet. [facility] 11-06-2023 Note HNO ID: [id number] Author: JOSIAH SUH, property maintenance technician Service: ? Author Type: Veterans Rehabilitation Counselor Type: Progress Notes Filed: 11/06/2023 08:19 Note [...] Daily Exercise Log will be scanned into [employer] once it is completed. These can be [...] Plan, and education sessions covered. Josiah Suh, Shank Faker [facility] 11-06-2023 History of Present illness Narrative [...] Daily Exercise Log will be scanned into [employer] once it is completed. These can be [...] Plan, and education sessions covered. Josiah Suh Shank Faker documented in this encounter [facility] 11-04-2023 Note HNO ID: [id number] Author: KATIE DECKER Shank Faker Service: ? Author Type: Shank Faker Type: Progress Notes Filed: 11/04/2023 08:21 Note [...] Daily Exercise Log will be scanned into [employer] once it is completed. These can be [...] Plan, and education sessions covered. Katie Decker Shank Faker [facility] 11-01-2023 Note HNO ID: [id number] Author: KATIE DECKER Exercise Physiologist Service: ? Author Type: Shank Faker Type: Progress Notes Filed: 11/01/2023 08:01 Note [...] rehabilitation. Patient has verbalized understanding of Angina, AK, NTG education topic and the relation to disease managment. Patient's Daily Exercise Log will be scanned into [employer] once it is completed. These can be [...] Plan, and education sessions covered. Katie Decker Shank Faker [facility] 11-01-2023 History of Present illness Narrative [...] rehabilitation. Patient has verbalized understanding of Angina, AK, NTG education topic and the relation to disease managment. Patient's Daily Exercise Log will be scanned into [employer] once it is completed. These can be [...] Plan, and education sessions covered. Katie Decker Shank Faker documented in this encounter [facility] 10-30-2023 Note HNO ID: [id number] Author: CASS MARI RN Service: ? Author Type: Registered Nurse Type: Progress Notes Filed: 10/30/2023 11:44 Note Text: QOL Call Tracking Documentation Follow-Up Type: Phone Call Call Attempt: 1st Attempt Call Status: Left Message [facility] 10-30-2023 History of Present illness Narrative QOL Call Tracking Documentation Follow-Up Type: Phone Call Call Attempt: 1st Attempt Call Status: Left Message documented in this encounter [facility] 10-30-2023 Note HNO ID: [id number] Author: KATIE DECKER Shank Faker Service: ? Author Type: Shank Faker Type: Progress Notes Filed: 10/30/2023 08:09 Note [...] Daily Exercise Log will be scanned into [employer] once it is completed. These can be [...] Plan, and education sessions covered. Katie Decker Shank Faker [facility] 10-30-2023 History of Present illness Narrative [...] Daily Exercise Log will be scanned into [employer] once it is completed. These can be [...] Plan, and education sessions covered. Katie Decker Shank Faker documented in this encounter [facility] 10-30-2023 Note Patient Outreach ([facility]) HENSONMARTIN MODI ([id number]) 1955 M Date Time Provider Department 10/30/23 [...] PAIN-UNSPEC [M25.50] 05/20/2006 10/03/2006 SPRAIN SHOULDER/ARM NOS [[id number]] 05/20/2006 10/03/2006 Complete rupture of rotator cuff [...] Encounter Status:Closed by CASS MARI on 10/30/23 [facility] 10-28-2023 History of Present illness Narrative [...] Daily Exercise Log will be scanned into [employer] once it is completed. These can be [...] Plan, and education sessions covered. Avelino Aburto Shank Faker documented in this encounter [facility] 10-28-2023 Note HNO ID: [id number] Author: AVELINO ABURTO Shank Faker Service: ? Author Type: Shank Faker Type: Progress Notes Filed: 10/28/2023 08:12 Note [...] Daily Exercise Log will be scanned into [employer] once it is completed. These can be [...] Plan, and education sessions covered. Avelino Aburto Shank Faker [facility] 10-25-2023 Note HNO ID: [id number] Author: AVELINO ABURTO Shank Faker Service: ? Author Type: Shank Faker Type: Progress Notes Filed: 10/25/2023 08:19 Note [...] Daily Exercise Log will be scanned into [employer] once it is completed. These can be [...] Plan, and education sessions covered. Avelino Aburto Shank Faker [facility] 10-25-2023 History of Present illness Narrative [...] Daily Exercise Log will be scanned into [employer] once it is completed. These can be [...] Plan, and education sessions covered. Avelino Aburto Shank Faker documented in this encounter [facility] 10-23-2023 Note HNO ID: [id number] Author: JOSIAH SUH property maintenance technician Service: ? Author Type: Veterans Rehabilitation Counselor Type: Progress Notes Filed: 10/23/2023 08:09 Note Text: [facility] Supervising Physician: Len Menendez [...] Daily Exercise Log will be scanned into [employer] once it is completed. These can be [...] Plan, and education sessions covered. Josiah Suh Shank Faker [facility] 10-23-2023 History of Present illness Narrative [...] Daily Exercise Log will be scanned into [employer] once it is completed. These can be [...] Plan, and education sessions covered. Josiah Suh Shank Faker documented in this encounter [facility] 10-21-2023 Note HNO ID: [id number] Author: AVELINO ABURTO Shank Faker Service: ? Author Type: Shank Faker Type: Progress Notes Filed: 10/21/2023 08:17 Note [...] Daily Exercise Log will be scanned into [employer] once it is completed. These can be [...] Plan, and education sessions covered. Avelino Aburto Shank Faker [facility] 10-21-2023 History of Present illness Narrative Images from the original note were not included. [facility] Supervising Physician: Len Menendez [...] Daily Exercise Log will be scanned into [employer] once it is completed. These can be [...] Plan, and education sessions covered. Avelino Aburto Shank Faker documented in this encounter [facility] 10-18-2023 Note HNO ID: [id number] Author: AVELINO ABURTO Shank Faker Service: ? Author Type: Shank Faker Type: Progress Notes Filed: 10/18/2023 08:19 Note Text: [facility] Supervising Physician: Len Menendez [...] Daily Exercise Log will be scanned into [employer] once it is completed. These can be [...] Plan, and education sessions covered. Avelino Aburto Shank Faker [facility] 10-18-2023 History of Present illness Narrative [...] Daily Exercise Log will be scanned into [employer] once it is completed. These can be [...] Plan, and education sessions covered. Avelino Aburto Shank Faker documented in this encounter [facility] 10-16-2023 Note HNO ID: [id number] Author: JOSIAH SUH, property maintenance technician Service: ? Author Type: Veterans Rehabilitation Counselor Type: Progress Notes Filed: 10/16/2023 08:13 Note [...] Daily Exercise Log will be scanned into [employer] once it is completed. These can be [...] Plan, and education sessions covered. Josiah Suh, Shank Faker [facility] 10-16-2023 History of Present illness Narrative [...] Daily Exercise Log will be scanned into [employer] once it is completed. These can be [...] Plan, and education sessions covered. Josiah Suh Shank Faker documented in this encounter [facility] 10-14-2023 Note HNO ID: [id number] Author: AVELINO ABURTO Shank Faker Service: ? Author Type: Shank Faker Type: Progress Notes Filed: 10/14/2023 08:09 Note [...] Daily Exercise Log will be scanned into [employer] once it is completed. These can be [...] Plan, and education sessions covered. Avelino Aburto Shank Faker [facility] 10-14-2023 History of Present illness Narrative [...] Daily Exercise Log will be scanned into [employer] once it is completed. These can be [...] Plan, and education sessions covered. Avelino Aburto Shank Faker documented in this encounter [facility] 10-11-2023 Note HNO ID: [id number] Author: AVELINO ABURTO Shank Faker Service: ? Author Type: Shank Faker Type: Progress Notes Filed: 10/11/2023 08:10 Note [...] Daily Exercise Log will be scanned into [employer] once it is completed. These can be [...] Plan, and education sessions covered. Avelino Aburto Shank Faker [facility] 10-11-2023 History of Present illness Narrative [...] Daily Exercise Log will be scanned into [employer] once it is completed. These can be [...] Plan, and education sessions covered. Avelino Aburto Shank Faker documented in this encounter [facility] 10-09-2023 Note HNO ID: [id number] Author: LEN SANTACRUZ DO Service: ? Author Type: Shank Faker Type: Progress Notes Filed: 10/18/2023 17:12 Note Text: Attestation signed by Len Santacruz DO at 10/18/2023 5:12 PM I have reviewed the detailed Individualized Treatment Plan assessment and plan for the patient as described above and agree with the recommendations. Len Santacruz DO, FACC, FACOI Clinical and Preventive Cardiology Department of Medicine and Division of Cardiology, [facility] Staff Meat And Poultry Inspector, Osman Emery Department of Cardiovascular Medicine/Heart and Vascular [place], [facility] Clinical application assistant Profressor of Medicine, [facility] Heart and Vascular [place] Osman Lin Department of Cardiovascular Medicine Initial [...] 32.85 kg/(m2). INDIVIDUAL TREATMENT PLAN Program Location: [place] Cardiac Rehab evaluation site : [facility] Cardiac Rehab Completed : [place] Program: Entry Phase II Primary Reason For [...] as Tolerated;Within Target (more content not included)... [facility] 09-18-2023 Instructions Deena Francois MD - 09/18/2023 4:21 PM EST PLAN AND RECOMMENDATIONS: no change in current meds - Start Cardiac Rehab - Always avoid heavy lifting , nothing above 35-40 pounds - Keep you Blood Pressure lower between 100 and 135: start Lisinopril 5 mg/day and Jardiance 10 - F/U in 3 months documented in this encounter [facility] 09-18-2023 Note HNO ID: [id number] Author: DEENA FRANCOIS MD Service: ? Author Type: Physician Type: Progress Notes Filed: 09/22/2023 14:22 Note Text: Heart, Vascular and Thoracic [place] Osman Lin Department of Cardiovascular Medicine SECTION OF CLINICAL CARDIOLOGY OUTPATIENT VISIT DATE September 18, 2023 OUTPATIENT VISIT TYPE ESTABLISHED PRIMARY CARE PHYSICIAN: ABDIEL MATHEWS [address] [place] [address] REFERRING PHYSICIAN: No referring provider defined for [...] Lido patches. Dispo - 67[place] [address]. No dc needs. CM following. OPD and [...] day. (Patient not (more content not included)... [facility] 09-18-2023 History of Present illness Narrative Images from the original note were not included. Heart, Vascular and Thoracic Sylmar Osman Lin Department of Cardiovascular Medicine SECTION OF CLINICAL CARDIOLOGY OUTPATIENT VISIT DATE September 18, 2023 OUTPATIENT VISIT TYPE ESTABLISHED PRIMARY CARE PHYSICIAN: ABDIEL MATHEWS [address] [place] [address] REFERRING PHYSICIAN: No referring provider defined for [...] Lido patches. Dispo - 67[place] [address]. No dc needs. CM following. OPD and [...] * * Final * * * RP Laborer Tanbark: ZAC Transcribe Date/Time: Jul 24 2023 4:11P [...] Deena Francois MD documented in this encounter [facility] 12-04-2023 Miscellaneous Notes We are calling to check on how you are doing since our last phone call. Are you having any medical concerns we can help you with today? -No new medical concerns today. Call Outcome: All Clear All clear and closing statement given. PD RN verified patients name and date of . Teresa Patel RN documented in this encounter [facility] 08-08-2023 History of Present illness Narrative Images from the original note were not included. Heart and Vascular Sylmar Osman Lin Department of Cardiovascular Medicine DEPARTMENT OF CARDIAC SURGERY OUTPATIENT VISIT DATE August 08, 2023 OUTPATIENT VISIT TYPE POSTOPERATIVE Martin Henson is a 67 year old male who presents who is here for post operative follow up HPI: SURGERY/PROCEDURE DATE: 07/29/2023 INCISION/PROCEDURE START TIME: 8:11 AM INCISION CLOSE/PROCEDURE END TIME: 11:35 AM SURGEON(S)/PROCEDURALIST(S) AND BIOLOGICAL INSPECTOR(S): Surgeon(s) and Role: * Usha Navarro MD - Primary * Greg Casas MD - Assisting Registered Nurse Stab Setter And Driller: Nabor Sheehan RN ANESTHESIA: General CTS OP [...] pre and post CPB; 2. True bicuspid [place] aortic valve with heavy calcification of both [...] and intact, no cellulitis Wound: NA SV Talmage sites: n/a Radial Artery Talmage site: n/s Procedures: Sutures removed from chest tube sites without difficulty. IMPRESSION & PLAN: 1. SURGERY/PROCEDURE DATE: 07/29/2023 INCISION/PROCEDURE START TIME: 8:11 AM INCISION CLOSE/PROCEDURE END TIME: 11:35 AM SURGEON(S)/PROCEDURALIST(S) AND BIOLOGICAL INSPECTOR(S): Surgeon(s) and Role: * Usha Navarro MD - Primary * Greg Casas MD - Assisting Registered Nurse Stab Setter And Driller: Nabor Sheehan RN ANESTHESIA: General CTS OP [...] pre and post CPB; 2. True bicuspid [place] aortic valve with heavy calcification of both [...] pleural effusion SBE prophylaxis reviewed Justo Mehta APRN.JAVASCRIPT PROGRAMMER documented in this encounter [facility] 08-08-2023 History of Present illness Narrative Radiology [...] 2023 1:07 PM documented in this encounter [facility] 07-25-2023 History of Present illness Narrative AMBULATORY [...] any further questions documented in this encounter [facility] 07-25-2023 History and physical note CHART COPY-DO [...] tonsillectomy <12 years DERM: Denies Dermatological Complaints SUPERVISOR [employer]: Dizziness with rapid positional changes RESP: Dyspnea [...] * * Final * * * RP Laborer Tanbark: [employer] Transcribe Date/Time: Jul 24 2023 4:11P Dictated [...] Physical dated 07/24/2023 documented in this encounter [facility] 07-25-2023 History of Present illness Narrative Consult [...] Navarro MD, PhD documented in this encounter [facility] 07-25-2023 History of Present illness Narrative Cardiothoracic [...] and consent discussed: yes. Patient / Responsible Republican agrees to proceed: yes Patient / Surrogate agrees to blood products: Yes Instructions Given to Patient: Instructions located in the after visit summary. Patient given verbal and written preop instructions and voices comprehension and compliance. Signature: Ariadna Gonzalez MD Patient Name: Martin Henson Date: July 25, 2023 Time: 9:56 AM Pager/Contact #: documented in this encounter [facility] 07-24-2023 History of Present illness Narrative Radiology [...] 2023 4:33 PM documented in this encounter [facility] 07-24-2023 History of Present illness Narrative Images from the original note were not included. Heart and Vascular Sylmar Osman Lin Department of Cardiovascular Medicine SECTION OF CLINICAL CARDIOLOGY OUTPATIENT VISIT DATE July 24, 2023 OUTPATIENT VISIT TYPE CONSULTATION PRIMARY CARE PHYSICIAN: [place] [address] REFERRING PHYSICIAN Usha Navarro [address] [place] [id number] CHIEF COMPLAINT: No chief complaint on file. 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 NURSING INTAKE: Mr. 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 Diet: Regular Exercise: Walking daily on the [...] for Phase velocity mapping Heraclio Fine MD Laborer Tanbark: REINALDO Transcribe Date/Time: Jun 27 2023 9:11P [...] PROCESS Note from chart: Author Nitesh Jimenez [facility] June 03, 2023 4:27pm Note Date/Time May 30, 2023 2:09pm [facility] Medical Records Department [address] [place] [address] History & Physical Exam 05/30/23 1406 MR#: [id number] Acct: [id number] Name: MARTIN HENSON Rep #:[id number] : 1955 67 From: Nitesh Jimenez MD PCP: ALEXANDRA Mathew [place] [facility] [facility] Note from Chart Jun 2023: History [...] coronary disease (was done last month in [place]) and Carotid duplex US also done in [place]? A priori was told that he had [...] And work up has been done in [place] and is a priori negative for amyloidosis. I personally interviewed, confirmed and edited the above information as obtained by others. CONTACT INFORMATION: Deena Francois MD, FACC documented in this encounter [facility] 07-24-2023 History of Present illness Narrative PULM FUNCTION SMARTBLOCK: Provider: Usha Navarro MD Spirometry: 1 DLCO: 1 documented in this encounter [facility] 07-22-2023 History of Present illness Narrative QOL Call Tracking Documentation Follow-Up Type: Phone Call Call Attempt: 1st Attempt Call Status: Patient will complete in [employer] documented in this encounter [facility] 07-22-2023 History of Present illness Narrative QOL Call Tracking Documentation Follow-Up Type: Phone Call Call Attempt: 1st Attempt Call Status: Patient will complete in [employer] documented in this encounter [facility] 07-10-2023 Miscellaneous Notes CARE CONTINUUM ADVISOR ASSESSMENT PRIMARY CARE PHYSICIAN: Abdiel Mathews NP OR Surgery Date: 07/29/23 [facility] Appointment: 07/25/23 Health Insurance: AET[employer] MEDICARE , C Financial Resources: Retired Primary Contact: Extended Emergency Contact Information Primary Emergency Contact: Alexia Batista Address: [address] [address] Mobile Relation: Spouse Other Important Patient Contacts: None 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 None Active Services/Needs: None Do you have a community service technician contact through your insurance or WRAAA?: No Has the Patient Been in a Group Home Facility in the Past 30 days? No FREEDOM OF CHOICE: Level of Care Discussed: Home Care, Group Home Facility, Inpatient Rehab Facility, [facility], and Cardiac Rehab Financial Disclosure Provided: No Financial Disclaimer Provided: Yes, regarding pre-cert / insurance authorization Provider List: Home Care Provider list within the patient's requested geographic area shared with the patient/family: Yes - Within 25 miles of [address] zipcode [place] Provider Choices Collected Home Health: 1. [facility] 2. [facility]. [facility] Interventions: Discussed importance of active PCP relationship and follow up Discussed insurance risks, gaps, and programs available Advanced Directives Education Discussed reliable transportation needs for surgery and follow up appointments Discussed prescription medications adherence Robert Arora RN documented in this encounter [facility] 06-03-2023 History and physi derek note Note Date/Time May 30, 2023 2:09pm [facility] Medical Records Department [address] [place] [address] History & Physical Exam 05/30/23 1406 MR#: [id number] Acct: [id number] Name: MARTIN HENSON Rep #:[id number] : 1955 67 From: Nitesh Jimenez MD PCP: ALEXANDRA Mathew [place] [facility] [facility] History and Physical Date of Admission: [...] Vital Signs: See EMR Intake Visit Reasons: [facility] Formula Technician Required: No Is patient in pain?: No Allergies No Known Allergies Allergy (Verified 04/30/23 09:01) Medications See EMR [facility] Medical History Abnormal echocardiogram findings without diagnosis Abnormal electrocardiogram Angina pectoris Aortic root dilatation Bicuspid aortic valve Cardiomyopathy Chest pain Essential hypertension Family history of CVA Family history of hypertension Nonrheumatic aortic (valve) stenosis (~09/20/21) 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 Nitesh Jimenez MD~ Signed [facility] Work Phone: [phone]) 185-569504-14-2023 NoteHNO ID: [id number] Author: SID Negron) Service: Radiology Author Type: [...] Henson DATE: December 21, 2022 TIME: 9:13 [facility] History of Present illness Narrative* SID Negron) [...] 2022 TIME: 9:13 AM [facility] Miscellaneous Notes* Telephone Encounter - SID Negron) - 12/07/2022 6:41 AM EDT CMR Protocol needed for this outpatient scheduled on 12/21. Thank you [facility]* Diagnosis Onset Date Resolution Status Nonrheumatic aortic (valve) stenosis September, acute Aortic root dilatation chron ic Bicuspid aortic valve chroni c Essential hypertension chron ic Pure hypercholesterolemia ch ronic Cardiomyopathy chronic Cardiomyopathy [facility] Work Phone: 1(582) 506-251509-11-2006 History of Past illness Narrative* Problem Noted Date Resolved Date Pain in joint, site unspecified 05/20/2006 10/03/2006 Sprain and strain of unspeci fied site of shoulder and upper arm 05/20/2006 10/03/2006 documented as of this encounter (statuses as of 12/07/2022) [address]2006 History of Past illness Narrative* Problem Noted Date Resolved Date Pain in joint, site unspecified 05/20/2006 10/03/2006 Sprain and strain of unspeci fied site of shoulder and upper arm 05/20/2006 10/03/2006 documented as of this encounter (statuses as of 12/22/2022) [address]2006 History of Past illness Narrative* Problem Noted Date Diagnosed Date Resolved Date Pain in joint, site unspecified 05/20/2006 10/03/2006 Sprain and strain of unspeci fied site of shoulder and upper arm 05/20/2006 10/03/2006 documented as of this encounter (statuses as of 07/11/2023) [address]2006 History of Past illness Narrative* Problem Noted Date Diagnosed Date Resolved Date Pain in joint, site unspecified 05/20/2006 10/03/2006 Sprain and strain of unspeci fied site of shoulder and upper arm 05/20/2006 10/03/2006 documented as of this encounter (statuses as of 07/22/2023) [address]2006 History of Past illness Narrative* Problem Noted Date Diagnosed Date Resolved Date Pain in joint, site unspecified 05/20/2006 10/03/2006 Sprain and strain of unspeci fied site of shoulder and upper arm 05/20/2006 10/03/2006 documented as of this encounter (statuses as of 07/24/2023) [address]2006 History of Past illness Narrative* Problem Noted Date Diagnosed Date Resolved Date Pain in joint, site unspecified 05/20/2006 10/03/2006 Sprain and strain of unspeci fied site of shoulder and upper arm 05/20/2006 10/03/2006 documented as of this encounter (statuses as of 07/24/2023) [address]2006 History of Past illness Narrative* Problem Noted Date Diagnosed Date Resolved Date Pain in joint, site unspecified 05/20/2006 10/03/2006 Sprain and strain of unspeci fied site of shoulder and upper arm 05/20/2006 10/03/2006 documented as of this encounter (statuses as of 07/24/2023) [address] History of Past illness Narrative* Problem Noted Date Diagnosed Date Resolved Date Pain in joint, site unspecified 05/20/2006 10/03/2006 Sprain and strain of unspeci fied site of shoulder and upper arm 05/20/2006 10/03/2006 documented as of this encounter (statuses as of 07/25/2023) [address] History of Past illness Narrative* Problem Noted Date Diagnosed Date Resolved Date Pain in joint, site unspecified 05/20/2006 10/03/2006 Sprain and strain of unspeci fied site of shoulder and upper arm 05/20/2006 10/03/2006 documented as of this encounter (statuses as of 07/25/2023) [address]2006 History of Past illness Narrative* Problem Noted Date Diagnosed Date Resolved Date Pain in joint, site unspecified 05/20/2006 10/03/2006 Sprain and strain of unspeci fied site of shoulder and upper arm 05/20/2006 10/03/2006 documented as of this encounter (statuses as of 07/25/2023) [address]2006 History of Past illness Narrative* Problem Noted Date Diagnosed Date Resolved Date Pain in joint, site unspecified 05/20/2006 10/03/2006 Sprain and strain of unspeci fied site of shoulder and upper arm 05/20/2006 10/03/2006 documented as of this encounter (statuses as of 07/25/2023) [address] History of Past illness Narrative* Problem Noted Date Diagnosed Date Resolved Date Pain in joint, site unspecified 05/20/2006 10/03/2006 Sprain and strain of unspeci fied site of shoulder and upper arm 05/20/2006 10/03/2006 documented as of this encounter (statuses as of 08/02/2023) [address] History of Past illness Narrative* Problem Noted Date Diagnosed Date Resolved Date Pain in joint, site unspecified 05/20/2006 10/03/2006 Sprain and strain of unspeci fied site of shoulder and upper arm 05/20/2006 10/03/2006 documented as of this encounter (statuses as of 08/03/2023) [address] History of Past illness Narrative* Problem Noted Date Diagnosed Date Resolved Date Pain in joint, site unspecified 05/20/2006 10/03/2006 Sprain and strain of unspeci fied site of shoulder and upper arm 05/20/2006 10/03/2006 documented as of this encounter (statuses as of 08/09/2023) [address] History of Past illness Narrative* Problem Noted Date Diagnosed Date Resolved Date Pain in joint, site unspecified 05/20/2006 10/03/2006 Sprain and strain of unspeci fied site of shoulder and upper arm 05/20/2006 10/03/2006 documented as of this encounter (statuses as of 08/09/2023) [address]2006 History of Past illness Narrative* Problem Noted Date Diagnosed Date Resolved Date Pain in joint, site unspecified 05/20/2006 10/03/2006 Sprain and strain of unspeci fied site of shoulder and upper arm 05/20/2006 10/03/2006 documented as of this encounter (statuses as of 08/12/2023) [address]2006 History of Past illness Narrative* Problem Noted Date Diagnosed Date Resolved Date Pain in joint, site unspecified 05/20/2006 10/03/2006 Sprain and strain of unspeci fied site of shoulder and upper arm 05/20/2006 10/03/2006 documented as of this encounter (statuses as of 09/22/2023) [address] History of Past illness Narrative* Problem Noted Date Diagnosed Date Resolved Date Pain in joint, site unspecified 05/20/2006 10/03/2006 Sprain and strain of unspeci fied site of shoulder and upper arm 05/20/2006 10/03/2006 documented as of this encounter (statuses as of 10/11/2023) [address] History of Past illness Narrative* Problem Noted Date Diagnosed Date Resolved Date Pain in joint, site unspecified 05/20/2006 10/03/2006 Sprain and strain of unspeci fied site of shoulder and upper arm 05/20/2006 10/03/2006 documented as of this encounter (statuses as of 10/14/2023) [address]2006 History of Past illness Narrative* Problem Noted Date Diagnosed Date Resolved Date Pain in joint, site unspecified 05/20/2006 10/03/2006 Sprain and strain of unspeci fied site of shoulder and upper arm 05/20/2006 10/03/2006 documented as of this encounter (statuses as of 10/16/2023) [address]2006 History of Past illness Narrative* Problem Noted Date Diagnosed Date Resolved Date Pain in joint, site unspecified 05/20/2006 10/03/2006 Sprain and strain of unspeci fied site of shoulder and upper arm 05/20/2006 10/03/2006 documented as of this encounter (statuses as of 10/18/2023) [address]2006 History of Past illness Narrative* Problem Noted Date Diagnosed Date Resolved Date Pain in joint, site unspecified 05/20/2006 10/03/2006 Sprain and strain of unspeci fied site of shoulder and upper arm 05/20/2006 10/03/2006 documented as of this encounter (statuses as of 10/21/2023) [address]2006 History of Past illness Narrative* Problem Noted Date Diagnosed Date Resolved Date Pain in joint, site unspecified 05/20/2006 10/03/2006 Sprain and strain of unspeci fied site of shoulder and upper arm 05/20/2006 10/03/2006 documented as of this encounter (statuses as of 10/23/2023) [address]2006 History of Past illness Narrative* Problem Noted Date Diagnosed Date Resolved Date Pain in joint, site unspecified 05/20/2006 10/03/2006 Sprain and strain of unspeci fied site of shoulder and upper arm 05/20/2006 10/03/2006 documented as of this encounter (statuses as of 10/25/2023) [address]2006 History of Past illness Narrative* Problem Noted Date Diagnosed Date Resolved Date Pain in joint, site unspecified 05/20/2006 10/03/2006 Sprain and strain of unspeci fied site of shoulder and upper arm 05/20/2006 10/03/2006 documented as of this encounter (statuses as of 10/28/2023) [address]2006 History of Past illness Narrative* Problem Noted Date Diagnosed Date Resolved Date Pain in joint, site unspecified 05/20/2006 10/03/2006 Sprain and strain of unspeci fied site of shoulder and upper arm 05/20/2006 10/03/2006 documented as of this encounter (statuses as of 10/30/2023) [address]2006 History of Past illness Narrative* Problem Noted Date Diagnosed Date Resolved Date Pain in joint, site unspecified 05/20/2006 10/03/2006 Sprain and strain of unspeci fied site of shoulder and upper arm 05/20/2006 10/03/2006 documented as of this encounter (statuses as of 10/30/2023) [address]2006 History of Past illness Narrative* Problem Noted Date Diagnosed Date Resolved Date Pain in joint, site unspecified 05/20/2006 10/03/2006 Sprain and strain of unspeci fied site of shoulder and upper arm 05/20/2006 10/03/2006 documented as of this encounter (statuses as of 11/01/2023) [address] History of Past illness Narrative* Problem Noted Date Diagnosed Date Resolved Date Pain in joint, site unspecified 05/20/2006 10/03/2006 Sprain and strain of unspeci fied site of shoulder and upper arm 05/20/2006 10/03/2006 documented as of this encounter (statuses as of 11/06/2023) [address]2006 History of Past illness Narrative* Problem Noted Date Diagnosed Date Resolved Date Pain in joint, site unspecified 05/20/2006 10/03/2006 Sprain and strain of unspeci fied site of shoulder and upper arm 05/20/2006 10/03/2006 documented as of this encounter (statuses as of 11/08/2023) [address] History of Past illness Narrative* Problem Noted Date Diagnosed Date Resolved Date Pain in joint, site unspecified 05/20/2006 10/03/2006 Sprain and strain of unspeci fied site of shoulder and upper arm 05/20/2006 10/03/2006 documented as of this encounter (statuses as of 11/11/2023) [address] History of Past illness Narrative* Problem Noted Date Diagnosed Date Resolved Date Pain in joint, site unspecified 05/20/2006 10/03/2006 Sprain and strain of unspeci fied site of shoulder and upper arm 05/20/2006 10/03/2006 documented as of this encounter (statuses as of 11/13/2023) [address] History of Past illness Narrative* Problem Noted Date Diagnosed Date Resolved Date Pain in joint, site unspecified 05/20/2006 10/03/2006 Sprain and strain of unspeci fied site of shoulder and upper arm 05/20/2006 10/03/2006 documented as of this encounter (statuses as of 11/15/2023) [address] History of Past illness Narrative* Problem Noted Date Diagnosed Date Resolved Date Pain in joint, site unspecified 05/20/2006 10/03/2006 Sprain and strain of unspeci fied site of shoulder and upper arm 05/20/2006 10/03/2006 documented as of this encounter (statuses as of 11/18/2023) [address] History of Past illness Narrative* Problem Noted Date Diagnosed Date Resolved Date Pain in joint, site unspecified 05/20/2006 10/03/2006 Sprain and strain of unspeci fied site of shoulder and upper arm 05/20/2006 10/03/2006 documented as of this encounter (statuses as of 11/20/2023) [address] History of Past illness Narrative* Problem Noted Date Diagnosed Date Resolved Date Pain in joint, site unspecified 05/20/2006 10/03/2006 Sprain and strain of unspeci fied site of shoulder and upper arm 05/20/2006 10/03/2006 documented as of this encounter (statuses as of 11/22/2023) [address] History of Past illness Narrative* Problem Noted Date Diagnosed Date Resolved Date Pain in joint, site unspecified 05/20/2006 10/03/2006 Sprain and strain of unspeci fied site of shoulder and upper arm 05/20/2006 10/03/2006 documented as of this encounter (statuses as of 11/25/2023) [address] History of Past illness Narrative* Problem Noted Date Diagnosed Date Resolved Date Pain in joint, site unspecified 05/20/2006 10/03/2006 Sprain and strain of unspeci fied site of shoulder and upper arm 05/20/2006 10/03/2006 documented as of this encounter (statuses as of 11/27/2023) [address] History of Past illness Narrative* Problem Noted Date Diagnosed Date Resolved Date Pain in joint, site unspecified 05/20/2006 10/03/2006 Sprain and strain of unspeci fied site of shoulder and upper arm 05/20/2006 10/03/2006 documented as of this encounter (statuses as of 11/29/2023) [address] History of Past illness Narrative* Problem Noted Date Diagnosed Date Resolved Date Pain in joint, site unspecified 05/20/2006 10/03/2006 Sprain and strain of unspeci fied site of shoulder and upper arm 05/20/2006 10/03/2006 documented as of this encounter (statuses as of 12/02/2023) [address] History of Past illness Narrative* Problem Noted Date Diagnosed Date Resolved Date Pain in joint, site unspecified 05/20/2006 10/03/2006 Sprain and strain of unspeci fied site of shoulder and upper arm 05/20/2006 10/03/2006 documented as of this encounter (statuses as of 12/04/2023) [address] History of Past illness Narrative* Problem Noted Date Diagnosed Date Resolved Date Pain in joint, site unspecified 05/20/2006 10/03/2006 Sprain and strain of unspeci fied site of shoulder and upper arm 05/20/2006 10/03/2006 documented as of this encounter (statuses as of 12/09/2023) [address] History of Past illness Narrative* Problem Noted Date Diagnosed Date Resolved Date Pain in joint, site unspecified 05/20/2006 10/03/2006 Sprain and strain of unspeci fied site of shoulder and upper arm 05/20/2006 10/03/2006 documented as of this encounter (statuses as of 12/11/2023) [address]-2006 History of Past illness Narrative* Problem Noted Date Diagnosed Date Resolved Date Pain in joint, site unspecified 05/20/2006 10/03/2006 Sprain and strain of unspeci fied site of shoulder and upper arm 05/20/2006 10/03/2006 documented as of this encounter (statuses as of 12/13/2023) [address]-2006 History of Past illness Narrative* Problem Noted Date Diagnosed Date Resolved Date Pain in joint, site unspecified 05/20/2006 10/03/2006 Sprain and strain of unspeci fied site of shoulder and upper arm 05/20/2006 10/03/2006 documented as of this encounter (statuses as of 12/16/2023) [address]-2006 History of Past illness Narrative* Problem Noted Date Diagnosed Date Resolved Date Pain in joint, site unspecified 05/20/2006 10/03/2006 Sprain and strain of unspeci fied site of shoulder and upper arm 05/20/2006 10/03/2006 documented as of this encounter (statuses as of 12/18/2023) [address]-2006 History of Past illness Narrative* Problem Noted Date Diagnosed Date Resolved Date Pain in joint, site unspecified 05/20/2006 10/03/2006 Sprain and strain of unspeci fied site of shoulder and upper arm 05/20/2006 10/03/2006 documented as of this encounter (statuses as of 12/20/2023) [address]-2006 History of Past illness Narrative* Problem Noted Date Diagnosed Date Resolved Date Pain in joint, site unspecified 05/20/2006 10/03/2006 Sprain and strain of unspeci fied site of shoulder and upper arm 05/20/2006 10/03/2006 documented as of this encounter (statuses as of 12/23/2023) [address]-2006 History of Past illness Narrative* Problem Noted Date Diagnosed Date Resolved Date Pain in joint, site unspecified 05/20/2006 10/03/2006 Sprain and strain of unspeci fied site of shoulder and upper arm 05/20/2006 10/03/2006 documented as of this encounter (statuses as of 12/25/2023) [address]-2006 History of Past illness Narrative* Problem Noted Date Diagnosed Date Resolved Date Pain in joint, site unspecified 05/20/2006 10/03/2006 Sprain and strain of unspeci fied site of shoulder and upper arm 05/20/2006 10/03/2006 documented as of this encounter (statuses as of 12/27/2023) [address]-2006 History of Past illness Narrative* Problem [...] aortic valve Cardiomyopathy Essential hypertension Pure hypercholesterolemia [facility] Work Phone: Chief complaint+Reason for visit Narrative* Chief Complaint 4 M FU AMYLOID EORDER/PRE PROCEDURE AROTIC STENOSIS AROTIC STENOSIS Reason for Visit Aortic root dilatati on Bicuspid aortic valve Cardiomyopathy Essential hypertension Pure hypercholesterolemia [facility] Work Phone: Discharge summary Author Zane Alvarado [facility] Note Date/Time December 10, 2024 9:27 am [facility] Physical Therapy [facility] [address] [place] [address] / REHABILITATION SERVICES DISCHARGE SUMMARY MR#: [id number] Acct: [id number] Name: MARTIN HENSON Rep #: [id number] 01 : 1955 69 From: Cert. IDANIA MagañaT, OCS Referring Dr.: ALEXANDRA Mathews Status: REG R Insurance: [facility] SELF PAY INSURANCE Discharge Summary D/C summary: [...] please feel free to call me at [phone]. Thank you for the referral of thispatient. Sincerely, Zane Alvarado, PT, Cert MDT, OCS Balance/Gait/Functional tests Balance/Special Test Scores Quick DASH Score: 9.0900 Improvement % Improvement: 80 <Electronically signed by Zane Alvarado PT, Cert. T, OCS> 12/10/24926 CC: ALEXANDRA Mathews ~ JLA Signed [facility] Work Phone: Evaluation noteNo assessment information available [facility] Work Phone: Evaluation note* Diagnosis Onset Date Resolution Status Fungal dermatitis acute Aortic root dilatation chron ic Bicuspid aortic valve chroni c Cardiomyopathy chronic Essential hypertension chron ic Pure hypercholesterolemia [facility] Work Phone: Evaluation note* Diagnosis Onset Date Resolution Status Aortic root dilatation chron ic Bicuspid aortic valve chroni c Cardiomyopathy chronic Essential hypertension chron ic Pure hypercholesterolemia [facility] Work Phone: Evaluation note* Diagnosis Aortic valve disorder- Primary Aortic valve disorders Nonrheumatic aortic valve stenosis Aortic valve disorders Pre-operative cardiovascular examination Aortic valve disorder Aortic valve disorders Hypertrophic cardiomyopathy (HCC) Other hypertrophic cardiomyopathy [facility] Diagnosis Nonrheumatic aortic valve stenosis Aortic valve disorders Pre-operative cardiovascular examination Aortic valve disorder Aortic valve disorders Hypertrophic cardiomyopathy (HCC) Other hypertrophic cardiomyopathy Nonrheumatic aortic valve stenosis Aortic valve disorders Pre-operative cardiovascular examination Aortic valve disorder Aortic valve disorders Hypertrophic cardiomyopathy (HCC) Other hypertrophic cardiomyopathy [facility] Diagnosis Pre-operative cardiovascular examination- Primary Nonrheumatic [...] by other means [facility] Diagnosis S/P AVR (aortic valve replacement)- Primary Heart valve replaced by other means [facility] Diagnosis S/P AVR (aortic valve replacement)- Primary Heart valve replaced by other means [facility] Diagnosis Vasculopathy Unspecified circulatory system disorder Adverse effect of treatment, initial encounter [facility]* Diagnosis Essential hypertension- Primary Unspecified essential hypertension S/P AVR (aortic valve replacement) and aortoplasty Heart valve replaced by other means Chronic heart failure with preserved ejection fraction (HCC) HOCM (hypertrophic obstructive cardiomyopathy) (HCC) Hypertrophic obstructive cardiomyopathy [facility]* Diagnosis HOCM (hypertrophic obstructive cardiomyopathy) (HCC)- Primary Hypertrophic obstructive cardiomyopathy documented in this encounter [facility] note* Diagnosis Primary hypertension- Primary Unspecified essential hypertension Aortic root dilation (HCC) Thoracic aortic ectasia Encounter for preprocedural cardiovascular examination Pre-operative cardiovascular examination History of aortic valve replacement Heart valve replaced by other means documented in this encounter [facility] note* Diagnosis HOCM (hypertrophic obstructive cardiomyopathy) (HCC) Hypertrophic obstructive cardiomyopathy [facility]* Diagnosis HOCM (hypertrophic obstructive cardiomyopathy) (HCC)- Primary Hypertrophic obstructive cardiomyopathy [facility] Diagnosis Primary hypertension Unspecified essential hypertension [facility]* Diagnosis NSVT (nonsustained ventricular tachycardia) (HCC)- Primary Paroxysmal ventricular tachycardia HOCM (hypertrophic obstructive cardiomyopathy) (HCC) Hypertrophic obstructive cardiomyopathy [facility] Diagnosis HOCM (hypertrophic obstructive cardiomyopathy) (HCC) Hypertrophic obstructive cardiomyopathy NSVT (nonsustained ventricular tachycardia) (HCC) Paroxysmal ventricular tachycardia [facility] Diagnosis HOCM (hypertrophic obstructive cardiomyopathy) (HCC) Hypertrophic obstructive cardiomyopathy documented in this encounter [facility] for referral (narrative)* Outpatient Procedure (Routine) - Authorized Specialty Diagnoses / Procedures Referred By Contac t [facility] Diagnoses Surgery follow-up Procedures ECG COMPLETE ECG ROUTINE ECG W/LEAST 12 LDS W/I&R Usha Navarro MD [address] [place], [place] [id number] [facility] [place] [phone] Referral ID Status Reason Start Date Expiration Date Visits Requested Visits Authorized [id number] Authorized Auto-Generat ed Referral 3 08/01/2024 1 1 [facility] for referral (narrative)* Outpatient Procedure (Routine) - Pending Review Specialty Diagnoses / Procedures Referred By Contac t Referred To Contact [facility] Diagnoses Nonrheumatic aortic valve stenosis Primary hypertension Procedures ECHO ECHO TTHRC R-T 2D W/WOM-MODE COMPL SPEC&COLR D Deena Francois MD [address] [place] [address] [place] [phone] Referral ID Status Reason Start Date Expiration Date Visits Requested Visits Authorized [id number] Pending Review Auto-Generat ed Referral 3 08/02/2024 1 1 * Outpatient Procedure (Routine) - Authorized Specialty Diagnoses / Procedures Referred By Contac t Referred To Contact [facility] Diagnoses Nonrheumatic aortic valve stenosis Primary hypertension Procedures ECG COMPLETE ECG ROUTINE ECG W/LEAST 12 LDS W/I&R Deena Francois MD [address] [place] [address] [place] [phone] Referral ID Status Reason Start Date Expiration Date Visits Requested Visits Authorized [id number] Authorized Auto-Generat ed Referral 3 08/02/2024 1 1 [facility] for referral (narrative)* Outpatient Procedure (Routine) - Authorized Specialty Diagnoses / Procedures Referred By Contac t Referred To Contact [facility] Diagnoses Essential hypertension S/P AVR (aortic valve replacement) and aortoplasty Chronic heart failure with preserved ejection fraction (HCC) HOCM (hypertrophic obstructive cardiomyopathy) ([facility]) Procedures ECHO ECHO TTHRC R-T 2D W/WOM-MODE COMPL SPEC&COLR D Deena Francois MD [address] [place] [address] [address] Referral ID Status Reason Start Date Expiration Date Visits Requested Visits Authorized [id number] Authorized Auto-Generat ed Referral 01/08/2024 01/07/2025 1 1 * Outpatient Procedure (Routine) - Authorized Specialty Diagnoses / Procedures Referred By Contac t Referred To Contact [facility] Diagnoses Essential hypertension S/P AVR (aortic valve replacement) and aortoplasty Chronic heart failure with preserved ejection fraction (HCC) HOCM (hypertrophic obstructive cardiomyopathy) ([facility]) Procedures ECG COMPLETE ECG ROUTINE ECG W/LEAST 12 LDS W/I&R Deena Francois MD [address] [place] [address] [address] Referral ID Status Reason Start Date Expiration Date Visits Requested Visits Authorized [id number] Authorized Auto-Generat ed Referral 01/08/2024 01/07/2025 1 1 * Transition of Care (Routine) - Ref Not Required Specialty Diagnoses / Procedures Referred By Contac t Referred To Contact [facility] Procedures CARDIOVASCULAR MEDICINE OP FOLLOW UP APPT ORDER Deena Francois MD [address] [place] [address] [address] Referral ID Status Reason Start Date Expiration Date Visits Requested Visits Authorized [id number] Ref Not Required PCP Requested Referral 02/08/2024 01/07/2025 1 1 [facility] for referral (narrative)* Outpatient Procedure (Routine) - New Request Specialty Diagnoses / Procedures Referred By Contac t Referred To Contact [facility] [place] Diagnoses HOCM (hypertrophic obstructive cardiomyopathy) (HCC) Procedures STRESS ECHO TREADMILL ECHO TTHRC R-T 2D W/WO M-MODE COMPLETE REST&ST Deena Francois MD [address] [place] [address] [facility] [address] [address] Referral ID Status Reason Start Date Expiration Date Visits Requested Visits Authorized [id number] New Request Auto-Generat ed Referral 03/27/2024 03/27/2025 1 1 [facility] for referral (narrative)* Outpatient Procedure (Routine) - Closed Specialty Diagnoses / Procedures Referred By Contac t Referred To Contact [facility] Diagnoses HOCM (hypertrophic obstructive cardiomyopathy) (HCC) Procedures STRESS ECHO TREADMILL ECHO TTHRC R-T 2D W/WO M-MODE COMPLETE REST&ST Deena Francois MD [address] [place] [address] [address] Referral ID Status Reason Start Date Expiration Date V isits Requested Visits Authorized [id number] Closed Auto-Generate d Referral 04/02/2024 09/08/2024 1 1 [facility] for referral (narrative)* Outpatient Procedure (Routine) - Authorized Specialty Diagnoses / Procedures Referred By Contac t Referred To Contact [facility] Diagnoses NSVT (nonsustained ventricular tachycardia) (HCC) HOCM (hypertrophic obstructive cardiomyopathy) (HCC) Procedures ECG COMPLETE ECG ROUTINE ECG W/LEAST 12 LDS W/I&R Edmund Kamara MD [address] [place] [address] [facility] [place] [address] Referral ID Status Reason Start Date Expiration Date Visits Requested Visits Authorized [id number] Authorized Auto-Generat ed Referral 06/22/2025 1 1 [facility]No reason for referral [facility] Work Phone: Reason for visit Narrative* Outpatient Procedure (Routine) - Closed Specialty Diagnoses / Procedures Referred By Contac t Referred [facility] Diagnoses HOCM (hypertrophic obstructive cardiomyopathy) (HCC) Procedures STRESS ECHO TREADMILL ECHO TTHRC R-T 2D W/WO M-MODE COMPLETE REST&ST Haoumegan-JudenhercDeena MD [address] [employer], [place] [phone] [facility] [place] [address] Referral ID Status Reason Start Date Expiration Date V isits Requested Visits Authorized [id number] Closed Auto-Generate d Referral 04/02/2024 09/08/2024 1 1 [facility] Summary Purpose Family History Relationship Condition Age [...] No April 16, 2017 3:49pm Power of Electrical Technician No April 16 3:49pm Advance Directive Response Recorded Date/ Time Advance Directives No February 23 7:17am Living Will No April 16, 2017 2:49pm Power of Electrical Technician No April 16 2:49pm Advance Directive Response Recorded Date/ Time Advance Directives No June 10, 2023 7:54am Living Will No June 10 7:54am Power of Electrical Technician No June 10 023 7:54am Advance Directive [...] [place] [address] [place] [address] [facility] [place] [address] Referral ID Status Reason Start Date Expiration Date Visits Requested Visits Authorized [id number] Pending Review Auto-Generat ed Referral 3 08/21/2024 1 1 Specialty Diagnoses / Procedures Referred By Maria D rajan Referred To Contact Procedures CARDIOVASCULAR MEDICINE OP FOLLOW UP APPT ORDER Deena Francois MD [address] [place] [address] Referral ID Status Reason Start Date Expiration Date Visits Requested Visits Authorized [id number] Ref Not Required PCP Requested Referral 3 07/23/2024 1 1 Specialty Diagnoses / Procedures Referred By Maria D rajan Referred To Contact CT [facility] Diagnoses Vasculopathy Adverse effect of treatment, initial encounter Procedures CTA CHEST (GATED) W IVCON CT ANGIOGRAPHY CHEST W/CONTRAST/NONCONTRAST Deena Francois MD [address] [place] [address] [facility] [place] [address] Referral ID Status Reason Start Date Expiration Date Visits Requested Visits Authorized [id number] Authorized Auto-Generat ed Referral 12/18/2023 10/17/2024 1 1 Specialty Diagnoses / Procedures Referred By Contac t Referred [facility] Diagnoses Hypertrophic cardiomyopathy (HCC) S/P AVR (aortic valve replacement) and aortoplasty Procedures ECHO ECHO TTHRC R-T 2D W/WOM-MODE COMPL SPEC&COLR D Deena Francois MD [address] [place] [address] [facility] [place] [address] [place] [address] Referral ID Status Reason Start Date Expiration Date Visits Requested Visits Authorized [id number] Authorized Auto-Generat ed Referral 12/18/2023 09/17/2024 1 1 Referral ID Status Reason Start Date Expiration Date Visits Requested Visits Authorized [id number] Ref Not Required PCP Requested Referral 12/18/2023 09/17/2024 1 1 Specialty Diagnoses / Procedures Referred By Contac t Referred To Contact Diagnoses Hypertrophic cardiomyopathy (HCC) Aortic root dilatation (HCC) Obesity, Class I, BMI 30-34.9 Procedures REFERRAL TO CARDIAC REHAB OFFICE/OUTPATIENT NEW HIGH MDM 60 MINUTES Deena Francois MD [address] [place] [address] Referral ID Status Reason Start Date Expiration Date Visits Requested Visits Authorized [id number] Authorized PCP Requested Referral 09/18/2023 12/17/2023 1 1 Specialty Diagnoses / Procedures Referred By Contac t Referred To Contact CT IMAG[facility] Diagnoses Encounter for preprocedural cardiovascular examination Procedures CTA CHEST (GATED) W IVCON CT ANGIOGRAPHY CHEST W/CONTRAST/NONCONTRAST Deena Francois MD [facility] [place] [id number] [facility] [place] [address] Referral ID Status Reason Start Date Expiration Date Visits Requested Visits Authorized [id number] New Request Auto-Generat ed Referral 03/25/2024 04/24/2025 1 1 Specialty Diagnoses / Procedures Referred By Contac t Referred To Contact [facility] Diagnoses Aortic root dilation (HCC) History of aortic valve replacement Procedures ECHO ECHO TTHRC R-T 2D W/WOM-MODE COMPL SPEC&COLR D Deena Francois MD [facility] [place] [address] [facility] [address] [address] Referral ID Status Reason Start Date Expiration Date Visits Requested Visits Authorized [id number] New Request Auto-Generat ed Referral 03/25/2024 03/25/2025 1 1 Specialty Diagnoses / Procedures Referred By Contac t Referred To Contact [facility] Diagnoses Aortic root dilation (HCC) History of aortic valve replacement Procedures ECG COMPLETE ECG ROUTINE ECG W/LEAST 12 LDS W/I&[place] [address] [place] [address] [place] [address] Referral ID Status Reason Start Date Expiration Date Visits Requested Visits Authorized [id number] New Request Auto-Generat ed Referral 03/25/2024 03/25/2025 1 1 Specialty Diagnoses / Procedures Referred By Contac t Referred To Contact [facility] Procedures CARDIOVASCULAR MEDICINE OP FOLLOW UP APPT ORDER Deena Francois MD [address] [place] [address] [place] [phone] Referral ID Status Reason Start Date Expiration Date Visits Requested Visits Authorized [id number] Ref Not Required PCP Requested Referral 12/25/2024 03/25/2025 1 1 Additional Source Comments (unrecognized sect ion and content) No Status Records FoundNo Status Records FoundNo Status Records FoundNo Status Records FoundNo Status Records Found INFORMATION SOURCE (unrecogn ized section and content) DATE CREATED AUTHOR 11/02/2019 [facility] DATE CREATED AUTHOR AUTHOR'S ORGANIZ ATION 06/29/2023 [facility] DATE CREATED AUTHOR AUTHOR'S ORGANIZ ATION 04/28/2024 [facility] DATE CREATED AUTHOR AUTHOR'S ORGANIZ ATION 08/29/2024 [facility] DATE CREATED AUTHOR AUTHOR'S ORGANIZ ATION 12/25/2024 [facility] Goals (unrecognized section and content) Goals [...] or prosecute any alcohol or drug abuse patient.[facility] the event this information is protected by the Federal Confidentiality of Alcohol and Drug Abuse Patient Records regulations: The Federal rules restrict any use of the information to criminally investigate or prosecute any alcohol or drug abuse patient.[facility] the event this information is protected by the Federal Confidentiality of Alcohol and Drug Abuse Patient Records regulations: The Federal rules restrict any use of the information to criminally investigate or prosecute any alcohol or drug abuse patient.[facility] the event this information is protected by the Federal Confidentiality of Alcohol and Drug Abuse Patient Records regulations: The Federal rules restrict any use of the information to criminally investigate or prosecute any alcohol or drug abuse patient.[facility] the event this information is protected by the Federal Confidentiality of Alcohol and Drug Abuse Patient Records regulations: The Federal rules restrict any use of the information to criminally investigate or prosecute any alcohol or drug abuse patient.[facility] the event this information is protected by the Federal Confidentiality of Alcohol and Drug Abuse Patient Records regulations: The Federal rules restrict any use of the information to criminally investigate or prosecute any alcohol or drug abuse patient.[facility] the event this information is protected by the Federal Confidentiality of Alcohol and Drug Abuse Patient Records regulations: The Federal rules restrict any use of the information to criminally investigate or prosecute any alcohol or drug abuse patient.[facility] the event this information is protected by the Federal Confidentiality of Alcohol and Drug Abuse Patient Records regulations: The Federal rules restrict any use of the information to criminally investigate or prosecute any alcohol or drug abuse patient.[facility] the event this information is protected by the Federal Confidentiality of Alcohol and Drug Abuse Patient Records regulations: The Federal rules restrict any use of the information to criminally investigate or prosecute any alcohol or drug abuse patient.[facility] Hospital[facility] the event this information is protected by the Federal Confidentiality of Alcohol and Drug Abuse Patient Records regulations: The Federal rules restrict any use of the information to criminally investigate or prosecute any alcohol or drug abuse patient.[facility] the event this information is protected by the Federal Confidentiality of Alcohol and Drug Abuse Patient Records regulations: The Federal rules restrict any use of the information to criminally investigate or prosecute any alcohol or drug abuse patient.[facility] Hospital[facility] the event this information is protected by the Federal Confidentiality of Alcohol and Drug Abuse Patient Records regulations: The Federal rules restrict any use of the information to criminally investigate or prosecute any alcohol or drug abuse patient.[facility] HospitalIn the event this information is protected by the Federal Confidentiality of Alcohol and Drug Abuse Patient Records regulations: The Federal rules restrict any use of the information to criminally investigate or prosecute any alcohol or drug abuse patient.[facility] HospitalIn the event this information is protected by the Federal Confidentiality of Alcohol and Drug Abuse Patient Records regulations: The Federal rules restrict any use of the information to criminally investigate or prosecute any alcohol or drug abuse patient.[facility] Hospital[facility] the event this information is protected by the Federal Confidentiality of Alcohol and Drug Abuse Patient Records regulations: The Federal rules restrict any use of the information to criminally investigate or prosecute any alcohol or drug abuse patient.[facility] HospitalIn the event this information is protected by the Federal Confidentiality of Alcohol and Drug Abuse Patient Records regulations: The Federal rules restrict any use of the information to criminally investigate or prosecute any alcohol or drug abuse patient.[facility] HospitalIn the event this information is protected by the Federal Confidentiality of Alcohol and Drug Abuse Patient Records regulations: The Federal rules restrict any use of the information to criminally investigate or prosecute any alcohol or drug abuse patient.[facility] HospitalIn the event this information is protected by the Federal Confidentiality of Alcohol and Drug Abuse Patient Records regulations: The Federal rules restrict any use of the information to criminally investigate or prosecute any alcohol or drug abuse patient.[facility] HospitalIn the event this information is protected by the Federal Confidentiality of Alcohol and Drug Abuse Patient Records regulations: The Federal rules restrict any use of the information to criminally investigate or prosecute any alcohol or drug abuse patient.[facility] HospitalIn the event this information is protected by the Federal Confidentiality of Alcohol and Drug Abuse Patient Records regulations: The Federal rules restrict any use of the information to criminally investigate or prosecute any alcohol or drug abuse patient.[facility] HospitalIn the event this information is protected by the Federal Confidentiality of Alcohol and Drug Abuse Patient Records regulations: The Federal rules restrict any use of the information to criminally investigate or prosecute any alcohol or drug abuse patient.[facility] HospitalIn the event this information is protected by the Federal Confidentiality of Alcohol and Drug Abuse Patient Records regulations: The Federal rules restrict any use of the information to criminally investigate or prosecute any alcohol or drug abuse patient.[facility] HospitalIn the event this information is protected by the Federal Confidentiality of Alcohol and Drug Abuse Patient Records regulations: The Federal rules restrict any use of the information to criminally investigate or prosecute any alcohol or drug abuse patient.[facility] HospitalIn the event this information is protected by the Federal Confidentiality of Alcohol and Drug Abuse Patient Records regulations: The Federal rules restrict any use of the information to criminally investigate or prosecute any alcohol or drug abuse patient.[facility] HospitalIn the event this information is protected by the Federal Confidentiality of Alcohol and Drug Abuse Patient Records regulations: The Federal rules restrict any use of the information to criminally investigate or prosecute any alcohol or drug abuse patient.[facility] HospitalIn the event this information is protected by the Federal Confidentiality of Alcohol and Drug Abuse Patient Records regulations: The Federal rules restrict any use of the information to criminally investigate or prosecute any alcohol or drug abuse patient.[facility] HospitalIn the event this information is protected by the Federal Confidentiality of Alcohol and Drug Abuse Patient Records regulations: The Federal rules restrict any use of the information to criminally investigate or prosecute any alcohol or drug abuse patient.[facility] HospitalIn the event this information is protected by the Federal Confidentiality of Alcohol and Drug Abuse Patient Records regulations: The Federal rules restrict any use of the information to criminally investigate or prosecute any alcohol or drug abuse patient.[facility] HospitalIn the event this information is protected by the Federal Confidentiality of Alcohol and Drug Abuse Patient Records regulations: The Federal rules restrict any use of the information to criminally investigate or prosecute any alcohol or drug abuse patient.[facility] HospitalIn the event this information is protected by the Federal Confidentiality of Alcohol and Drug Abuse Patient Records regulations: The Federal rules restrict any use of the information to criminally investigate or prosecute any alcohol or drug abuse patient.[facility] HospitalIn the event this information is protected by the Federal Confidentiality of Alcohol and Drug Abuse Patient Records regulations: The Federal rules restrict any use of the information to criminally investigate or prosecute any alcohol or drug abuse patient.[facility] HospitalIn the event this information is protected by the Federal Confidentiality of Alcohol and Drug Abuse Patient Records regulations: The Federal rules restrict any use of the information to criminally investigate or prosecute any alcohol or drug abuse patient.[facility] HospitalIn the event this information is protected by the Federal Confidentiality of Alcohol and Drug Abuse Patient Records regulations: The Federal rules restrict any use of the information to criminally investigate or prosecute any alcohol or drug abuse patient.[facility] HospitalIn the event this information is protected by the Federal Confidentiality of Alcohol and Drug Abuse Patient Records regulations: The Federal rules restrict any use of the information to criminally investigate or prosecute any alcohol or drug abuse patient.[facility] HospitalIn the event this information is protected by the Federal Confidentiality of Alcohol and Drug Abuse Patient Records regulations: The Federal rules restrict any use of the information to criminally investigate or prosecute any alcohol or drug abuse patient.[facility] HospitalIn the event this information is protected by the Federal Confidentiality of Alcohol and Drug Abuse Patient Records regulations: The Federal rules restrict any use of the information to criminally investigate or prosecute any alcohol or drug abuse patient.[facility] HospitalIn the event this information is protected by the Federal Confidentiality of Alcohol and Drug Abuse Patient Records regulations: The Federal rules restrict any use of the information to criminally investigate or prosecute any alcohol or drug abuse patient.[facility] HospitalIn the event this information is protected by the Federal Confidentiality of Alcohol and Drug Abuse Patient Records regulations: The Federal rules restrict any use of the information to criminally investigate or prosecute any alcohol or drug abuse patient.[facility] HospitalIn the event this information is protected by the Federal Confidentiality of Alcohol and Drug Abuse Patient Records regulations: The Federal rules restrict any use of the information to criminally investigate or prosecute any alcohol or drug abuse patient.[facility] HospitalIn the event this information is protected by the Federal Confidentiality of Alcohol and Drug Abuse Patient Records regulations: The Federal rules restrict any use of the information to criminally investigate or prosecute any alcohol or drug abuse patient.[facility] HospitalIn the event this information is protected by the Federal Confidentiality of Alcohol and Drug Abuse Patient Records regulations: The Federal rules restrict any use of the information to criminally investigate or prosecute any alcohol or drug abuse patient.[facility] HospitalIn the event this information is protected by the Federal Confidentiality of Alcohol and Drug Abuse Patient Records regulations: The Federal rules restrict any use of the information to criminally investigate or prosecute any alcohol or drug abuse patient.[facility] HospitalIn the event this information is protected by the Federal Confidentiality of Alcohol and Drug Abuse Patient Records regulations: The Federal rules restrict any use of the information to criminally investigate or prosecute any alcohol or drug abuse patient.[facility] HospitalIn the event this information is protected by the Federal Confidentiality of Alcohol and Drug Abuse Patient Records regulations: The Federal rules restrict any use of the information to criminally investigate or prosecute any alcohol or drug abuse patient.[facility] HospitalIn the event this information is protected by the Federal Confidentiality of Alcohol and Drug Abuse Patient Records regulations: The Federal rules restrict any use of the information to criminally investigate or prosecute any alcohol or drug abuse patient.[facility] HospitalIn the event this information is protected by the Federal Confidentiality of Alcohol and Drug Abuse Patient Records regulations: The Federal rules restrict any use of the information to criminally investigate or prosecute any alcohol or drug abuse patient.[facility] HospitalIn the event this information is protected by the Federal Confidentiality of Alcohol and Drug Abuse Patient Records regulations: The Federal rules restrict any use of the information to criminally investigate or prosecute any alcohol or drug abuse patient.[facility] HospitalIn the event this information is protected by the Federal Confidentiality of Alcohol and Drug Abuse Patient Records regulations: The Federal rules restrict any use of the information to criminally investigate or prosecute any alcohol or drug abuse patient.[facility] HospitalIn the event this information is protected by the Federal Confidentiality of Alcohol and Drug Abuse Patient Records regulations: The Federal rules restrict any use of the information to criminally investigate or prosecute any alcohol or drug abuse patient.[facility] HospitalIn the event this information is protected by the Federal Confidentiality of Alcohol and Drug Abuse Patient Records regulations: The Federal rules restrict any use of the information to criminally investigate or prosecute any alcohol or drug abuse patient.[facility] HospitalIn the event this information is protected by the Federal Confidentiality of Alcohol and Drug Abuse Patient Records regulations: The Federal rules restrict any use of the information to criminally investigate or prosecute any alcohol or drug abuse patient.[facility] HospitalIn the event this information is protected by the Federal Confidentiality of Alcohol and Drug Abuse Patient Records regulations: The Federal rules restrict any use of the information to criminally investigate or prosecute any alcohol or drug abuse patient.[facility] HospitalIn the event this information is protected by the Federal Confidentiality of Alcohol and Drug Abuse Patient Records regulations: The Federal rules restrict any use of the information to criminally investigate or prosecute any alcohol or drug abuse patient.[facility] HospitalIn the event this information is protected by the Federal Confidentiality of Alcohol and Drug Abuse Patient Records regulations: The Federal rules restrict any use of the information to criminally investigate or prosecute any alcohol or drug abuse patient.[facility] HospitalIn the event this information is protected by the Federal Confidentiality of Alcohol and Drug Abuse Patient Records regulations: The Federal rules restrict any use of the information to criminally investigate or prosecute any alcohol or drug abuse patient.[facility] HospitalIn the event this information is protected by the Federal Confidentiality of Alcohol and Drug Abuse Patient Records regulations: The Federal rules restrict any use of the information to criminally investigate or prosecute any alcohol or drug abuse patient.[facility] HospitalIn the event this information is protected by the Federal Confidentiality of Alcohol and Drug Abuse Patient Records regulations: The Federal rules restrict any use of the information to criminally investigate or prosecute any alcohol or drug abuse patient.[facility] HospitalIn the event this information is protected by the Federal Confidentiality of Alcohol and Drug Abuse Patient Records regulations: The Federal rules restrict any use of the information to criminally investigate or prosecute any alcohol or drug abuse patient.[facility] HospitalIn the event this information is protected by the Federal Confidentiality of Alcohol and Drug Abuse Patient Records regulations: The Federal rules restrict any use of the information to criminally investigate or prosecute any alcohol or drug abuse patient.[facility] HospitalIn the event this information is protected by the Federal Confidentiality of Alcohol and Drug Abuse Patient Records regulations: The Federal rules restrict any use of the information to criminally investigate or prosecute any alcohol or drug abuse patient.[facility] HospitalIn the event this information is protected by the Federal Confidentiality of Alcohol and Drug Abuse Patient Records regulations: The Federal rules restrict any use of the information to criminally investigate or prosecute any alcohol or drug abuse patient.[facility] HospitalIn the event this information is protected by the Federal Confidentiality of Alcohol and Drug Abuse Patient Records regulations: The Federal rules restrict any use of the information to criminally investigate or prosecute any alcohol or drug abuse patient.[facility] HospitalIn the event this information is protected by the Federal Confidentiality of Alcohol and Drug Abuse Patient Records regulations: The Federal rules restrict any use of the information to criminally investigate or prosecute any alcohol or drug abuse patient.[facility] HospitalIn the event this information is protected by the Federal Confidentiality of Alcohol and Drug Abuse Patient Records regulations: The Federal rules restrict any use of the information to criminally investigate or prosecute any alcohol or drug abuse patient.[facility] HospitalIn the event this information is protected by the Federal Confidentiality of Alcohol and Drug Abuse Patient Records regulations: The Federal rules restrict any use of the information to criminally investigate or prosecute any alcohol or drug abuse patient.[facility] HospitalIn the event this information is protected by the Federal Confidentiality of Alcohol and Drug Abuse Patient Records regulations: The Federal rules restrict any use of the information to criminally investigate or prosecute any alcohol or drug abuse patient.[facility] HospitalIn the event this information is protected by the Federal Confidentiality of Alcohol and Drug Abuse Patient Records regulations: The Federal rules restrict any use of the information to criminally investigate or prosecute any alcohol or drug abuse patient.[facility] HospitalIn the event this information is protected by the Federal Confidentiality of Alcohol and Drug Abuse Patient Records regulations: The Federal rules restrict any use of the information to criminally investigate or prosecute any alcohol or drug abuse patient.[facility] HospitalIn the event this information is protected by the Federal Confidentiality of Alcohol and Drug Abuse Patient Records regulations: The Federal rules restrict any use of the information to criminally investigate or prosecute any alcohol or drug abuse patient.[facility] HospitalIn the event this information is protected by the Federal Confidentiality of Alcohol and Drug Abuse Patient Records regulations: The Federal rules restrict any use of the information to criminally investigate or prosecute any alcohol or drug abuse patient.[facility] HospitalIn the event this information is protected by the Federal Confidentiality of Alcohol and Drug Abuse Patient Records regulations: The Federal rules restrict any use of the information to criminally investigate or prosecute any alcohol or drug abuse patient.[facility] HospitalIn the event this information is protected by the Federal Confidentiality of Alcohol and Drug Abuse Patient Records regulations: The Federal rules restrict any use of the information to criminally investigate or prosecute any alcohol or drug abuse patient.[facility] HospitalIn the event this information is protected by the Federal Confidentiality of Alcohol and Drug Abuse Patient Records regulations: The Federal rules restrict any use of the information to criminally investigate or prosecute any alcohol or drug abuse patient.[facility] HospitalIn the event this information is protected by the Federal Confidentiality of Alcohol and Drug Abuse Patient Records regulations: The Federal rules restrict any use of the information to criminally investigate or prosecute any alcohol or drug abuse patient.[facility] Reason for Visit (unrecogniz ed section and content) Reason Comments Radio Main J1 Specialty Diagnoses / Procedures Referred By Maria D rajan Referred To Contact ADMITTING Diagnoses Nonrheumatic aortic valve stenosis Pre-operative cardiovascular examination Aortic valve disorder Hypertrophic cardiomyopathy (HCC) Procedures RPLCMT PROST AORTIC VALVE OPEN XCP HOMOGRF/STENT AVR W/ CARDIOPULMONARY BYPASS W/ PROSTHETIC OTHER THAN HOMOGRAFT/ STENTLESS TISSUE VALVE [facility] [address] [id number] Referral ID Status Reason Start Date Expiration Date Visits Re quested Visits Authorized [id number] 1 1 Reason Comments Orders Reason Comments Box Fabricator - Other Care Continuum Advisor Assessment Reason Comments Spirometry Specialty Diagnoses / Procedures Referred By Maria D rajan Referred To Contact [facility] Diagnoses Nonrheumatic aortic valve stenosis Pre-operative cardiovascular examination Aortic valve disorder Hypertrophic cardiomyopathy (HCC) Procedures LUNG DIFFUSION CAPACITY (DLCO) DIFFUSING CAPACITY Usha Navarro MD [address] [place] [address] [facility] [address] [place] [address] Referral ID Status Reason Start Date Expiration Date V isits Requested Visits Authorized [id number] Closed Auto-Generate d Referral 06/26/2023 07/25/2024 1 1 Specialty Diagnoses / Procedures Referred By Contac t Referred To Contact [facility] Diagnoses Nonrheumatic aortic valve stenosis Pre-operative cardiovascular examination Aortic valve disorder Hypertrophic cardiomyopathy (HCC) Procedures SPIROMETRY BASELINE ONLY SPMTRY W/VC EXPIRATORY PANCHITO W/WO MXML VOL VNTJ Usha Navarro MD [address] [place] [address] [facility] [address] [place] [address] Referral ID Status Reason Start Date Expiration Date V isits Requested Visits Authorized [id number] Closed Auto-Generate d Referral 06/26/2023 07/25/2024 1 1 Specialty Diagnoses / Procedures Referred By Contac t Referred To Contact Cardiology Diagnoses Nonrheumatic aortic valve stenosis Pre-operative cardiovascular examination Aortic valve disorder Hypertrophic cardiomyopathy (HCC) Procedures CONSULT TO CARDIOLOGY OFFICE/OUTPATIENT [facility] 60-74 MINUTES Usha Navarro MD [address] [place] [address] Referral ID Status Reason Start Date Expiration Date Visits Requested Visits Authorized [id number] Pending Review PCP Requested Referral 06/25/2024 1 1 Reason Comments Radiology MRI Specialty Diagnoses / Procedures Referred By Contac t Referred To Contact MR IMAGING Diagnoses Nonrheumatic aortic valve stenosis Pre-operative cardiovascular examination Aortic valve disorder Hypertrophic cardiomyopathy (HCC) Procedures MRI CARDIAC VELOCITY FLOW MAP CARDIAC MRI FOR VELOCITY FLOW MAPPING Usha Navarro MD [address] [place] [address] Mr Imaging [facility] Referral ID Status Reason Start Date Expiration Date V isits Requested Visits Authorized [id number] Closed Auto-Generate d Referral 06/26/2023 07/25/2024 1 1 Specialty Diagnoses / Procedures Referred By Contac t Referred To Contact Cardiac Surg Diagnoses Nonrheumatic aortic valve stenosis Pre-operative cardiovascular examination Aortic valve disorder Hypertrophic cardiomyopathy (HCC) Procedures CARDIOTHORACIC PREOP EVALUATION OFFICE/OUTPATIENT NEW HIGH MDM 60-74 MINUTES Usha Navarro MD [address] [place] [address] Referral ID Status Reason Start Date Expiration Date Visits Requested Visits Authorized [id number] Pending Review PCP Requested Referral 3 06/25/2024 [...] CT ANGIOGRAPHY CHEST W/CONTRAST/NONCONTRAST Deena Francois MD [address] [place] [address] [facility] [place] [address] Referral ID Status Reason Start Date Expiration Date V isits Requested Visits Authorized [id number] Closed Auto-Generate d Referral 12/18/2023 10/17/2024 1 1 Specialty Diagnoses / Procedures Referred By Contac t Referred To Contact Procedures CARDIOVASCULAR MEDICINE OP FOLLOW UP APPT ORDER Deena Francois MD [address] [place] [address] Referral ID Status Reason Start Date Expiration Date Visits Requested Visits Authorized [id number] Ref Not Required PCP Requested Referral 12/18/2023 09/17/2024 1 1 Reason Onset Date Comments Refill Request 03/18/2024 Reason Comments Refill Request Specialty Diagnoses / Procedures Referred By Contac t Referred [facility] Procedures CARDIOVASCULAR MEDICINE OP FOLLOW UP APPT ORDER Deena Francois MD [address] [place] [address] [facility] [address] [place] [address] Referral ID Status Reason Start Date Expiration Date Visits Requested Visits Authorized [id number] Ref Not Required PCP Requested Referral 02/08/2024 01/07/2025 1 1 Reason Comments Patient Update Reason Comments Reminder Call Reason Comments fax confirmation Reason Onset Date Comments Refill Request 04/23/2024 Specialty Diagnoses / Procedures Referred By Contac t Referred To Contact Diagnoses HOCM (hypertrophic obstructive cardiomyopathy) (HCC) NSVT (nonsustained ventricular tachycardia) (HCC) Procedures CONSULT TO ELECTROPHYSIOLOGY OFFICE/OUTPATIENT [facility] 60 MINUTES Deena Francois MD [address] [place], [place] [id number] Referral ID Status Reason Start Date Expiration Date V isits Requested Visits Authorized [id number] Closed PCP Requested Referral 06/05/2024 06/05/2025 1 1 Specialty Diagnoses / Procedures Referred By Contac t Referred To Contact Diagnoses HOCM (hypertrophic obstructive cardiomyopathy) (HCC) Procedures CONSULT TO MEDICAL GENETICS - CARDIOVASCULAR OFFICE/OUTPATIENT [facility] 60 MINUTES MEDICAL GENETICS COUNSELING EACH 30 MINUTES Deena Francois MD [address] [place] [address] [facility] [address] [place] [address] Referral ID Status Reason Start Date Expiration Date V isits Requested Visits Authorized [id number] Closed PCP Requested Referral Auto-Generated Referral 04/30/2024 04/30/2025 1 1 Care Teams (unrecognized sec tion and content) Pega Developer Relationship Specialty Start Date End Date Geoff Sainz MD PCP - General Family Medicine 02/16/11 Pega Developer Relationship Specialty Start Date End Date Geoff [...] Referr ing Provider Active Abdiel Mathews , DITTO MACHINE OPERATOR-C Primary Care Provider Active Team Status: Inactive Member Role Status Dates Abdiel Mathews , DITTO MACHINE OPERATOR-C Primary Care Provider Active Singh GODINEZ PA Attending Provider, Referr ing Provider Active Team Status: Active Member Role Status Dates Abdiel Mathews , DITTO MACHINE OPERATOR-C Primary Care Provider Active Dr. Nitesh Jimenez MD Attending Provider, Referring Provider, Other Provider Active Team Status: Inactive Member Role Status Dates Abdiel Mathews , DITTO MACHINE OPERATOR-C Primary Care Provider Active Dr. Nitesh Jimenez MD Attending Provider, Referring Pro vider Active Pega Developer Relationship Specialty Start Date End Date Abdiel Mathews NP [address] [address] PCP - General Family Medicine 07/02/23 Nitesh Jimenez MD [address] [address] Referring Cardiology 06/25/23 Usha Navarro MD [address] [place] [address] Surgeon Cardiac Surg 06/25/23 Pega Developer Relationship Specialty Start Date End Date Abdiel Mathews NP [address] [address] PCP - General Family Medicine 07/02/23 Nitesh Jimenez MD [address] [address] Referring Cardiology 06/25/23 Usha Navarro MD [address] [place] [address] Surgeon Cardiac Surg 06/25/23 Pega Developer Relationship Specialty Start Date End Date Abdiel Mathews NP [address] [address] PCP - General Family Medicine 07/02/23 Nitesh Jimenez MD [address] [facility] [address] [place] [address] Referring Cardiology 06/25/23 Usha Navarro MD [address] [place] [address] Surgeon Cardiac Surg 06/25/23 Pega Developer Relationship Specialty Start Date End Date Abdiel Mathews NP [address] [place] [id number] PCP - General Family Medicine 07/02/23 Nitesh Jimenez MD [address] [address] Referring Cardiology 06/25/23 Usha Navarro MD [address] [place] [address] Surgeon Cardiac Surg 06/25/23 Deena Francois MD [address] [place] [address] Primary Staff Physician Cardiology 07/24/23 Pega Developer Relationship Specialty Start Date End Date Abdiel Mathews NP [address] [place] [address] PCP - General Family Medicine 07/02/23 Nitesh Jimenez MD [address] [id number] Referring Cardiology 06/25/23 Usha Navarro MD [address] [place] [address] Surgeon Cardiac Surg 06/25/23 Deena Francois MD [address] [place] [address] Primary Staff Physician Cardiology 07/24/23 Pega Developer Relationship Specialty Start Date End Date Abdiel Mathews NP [address] [place] [address]58 PCP - General Family Medicine 07/02/23 Nitesh Jimenez MD [address] 109341 Referring Cardiology 06/25/23 Usha Navarro MD [address] [place] [address] Surgeon Cardiac Surg 06/25/23 Deena Francois MD [address] [place] [address] Primary Staff Physician Cardiology 07/24/23 Pega Developer Relationship Specialty Start Date End Date Abdiel Mathews NP [facility]7 [place], [place] [id number] PCP - General Family Medicine 07/02/23 Nitesh Jimenez MD [address] [facility] [address]A [place] [address] Referring Cardiology 06/25/23 Usha Navarro MD [address] [place] [address] Surgeon Cardiac Surg 06/25/23 Deena Francois MD [address] [place], [place] [phone] Primary Staff Physician Cardiology 07/24/23 Pega Developer Relationship Specialty Start Date End Date Abdiel Mathews NP [address] [place] [address] 48620 PCP - General Family Medicine 07/02/23 Nitesh Jimenez MD 1761 [facility] 3A [place] [address] Referring Cardiology 06/25/23 Usha Navarro MD [address] [place] [address] Surgeon Cardiac Surg 06/25/23 Deena Francois MD [address] [place] [address] Primary Staff Physician Cardiology 07/24/23 Pega Developer Relationship Specialty Start Date End Date Abdiel Mathews NP [address] [place] [address] 19875 PCP - General Family Medicine 07/02/23 Nitesh Jimenez MD [address] [facility] [address] [place] [address] Referring Cardiology 06/25/23 Usha Navarro MD [address] [place] [address] Surgeon Cardiac Surg 06/25/23 Deena Francois MD [facility] [place] [address] Primary Staff Physician Cardiology 07/24/23 Pega Developer Relationship Specialty Start Date End Date Abdiel Mathews NP [address] [place] [address] 42313 PCP - General Family Medicine 07/02/23 Nitesh Jimenez MD [address] [address] Referring Cardiology 06/25/23 Usha Navarro MD [address] [place] [address] Surgeon Cardiac Surg 06/25/23 Deena Francois MD [address] [place], [place] [phone] Primary Staff Physician Cardiology 07/24/23 Pega Developer Relationship Specialty Start Date End Date Abdiel Mathews NP [facility]7 [place] [address] PCP - General Family Medicine 07/02/23 Nitesh Jimenez MD [address] [address] Referring Cardiology 06/25/23 Usha Navarro MD [address] [place] [address] Surgeon Cardiac Surg 06/25/23 Deena Francois MD [address] [place] [address] Primary Staff Physician Cardiology 07/24/23 Pega Developer Relationship Specialty Start Date End Date Abdiel Mathesw NP [address] [place] [address] 0[address]16 PCP - General Family Medicine 07/02/23 Nitesh Jimenez MD [address] [address] Referring Cardiology 06/25/23 Usha Navarro MD [address] [place] [address] Surgeon Cardiac Surg 06/25/23 Deena Francois MD [address] [place], [place] [phone] Primary Staff Physician Cardiology 07/24/23 Pega Developer Relationship Specialty Start Date End Date Abdiel Mathews NP [address] [place] [address] 61[address] PCP - General Family Medicine 07/02/23 Nitesh Jimenez MD [address] [address] Referring Cardiology 06/25/23 Usha Navarro MD [address] [place] [address] Surgeon Cardiac Surg 06/25/23 Deena Francois MD [address] [place] [phone] Primary Staff Physician Cardiology 07/24/23 Pega Developer Relationship Specialty Start Date End Date Abdiel Mathews NP [address] [place] [address] 34750 PCP - General Family Medicine 07/02/23 [place] [address] [place] [address] [id number] Referring Cardiology 06/25/23 Usha Navarro MD [address] [place] [id number] Surgeon Cardiac Surg 06/25/23 Deena Francois MD [address] [place] [phone] Primary Staff Physician Cardiology 07/24/23 Pega Developer Relationship Specialty Start Date End Date Abdiel Mathews NP [facility]7 [place], [place] 06[address]91 PCP - General Family Medicine 07/02/23 Nitesh Jimenez MD [address] [facility] 3A [place] [address] Referring Cardiology 06/25/23 Usha Navarro MD [address] [place] [address] Surgeon Cardiac Surg 06/25/23 Deena Francois MD [address] [place], [place] [phone] Primary Staff Physician Cardiology 07/24/23 Pega Developer Relationship Specialty Start Date End Date Abdiel Mathews NP [facility]7 [place] [address] PCP - General Family Medicine 07/02/23 Nitesh Jimenez MD [address] [facility] [address] [place] [address] Referring Cardiology 06/25/23 Usha Navarro MD [address] [place], [place] [id number] Surgeon Cardiac Surg 06/25/23 Deena Francois MD [address] [place] [address] Primary Staff Physician Cardiology 07/24/23 Pega Developer Relationship Specialty Start Date End Date Abdiel Mathews NP [address] [place], [place] 719601 PCP - General Family Medicine 07/02/23 Nitesh Jimenez MD [address] [facility] 3A [place] [address] Referring Cardiology 06/25/23 Usha Navarro MD [address] [place] [id number] Surgeon Cardiac Surg 06/25/23 Deena Francois MD [address] [place] [phone] Primary Staff Physician Cardiology 07/24/23 Pega Developer Relationship Specialty Start Date End Date Abdiel Mathews NP [address] [place] [address] PCP - General Family Medicine 07/02/23 Nitesh Jimenez MD [address] 785321 Referring Cardiology 06/25/23 Usha Navarro MD [address] [place], [place] [phone] Surgeon Cardiac Surg 06/25/23 Deena Francois MD [facility] [place] [phone] Primary Staff Physician Cardiology 07/24/23 Pega Developer Relationship Specialty Start Date End Date Abdiel Mathews NP [facility]7 [place] [address] PCP - General Family Medicine 07/02/23 Nitesh Jimenez MD [address] [address] Referring Cardiology 06/25/23 Usha Navarro MD [address] [place] [address] Surgeon Cardiac Surg 06/25/23 Deena Francois MD [address] [place] [address] Primary Staff Physician Cardiology 07/24/23 Pega Developer Relationship Specialty Start Date End Date Abdiel Mathews NP [address] [place] [phone] PCP - General Family Medicine 07/02/23 Nitesh Jimenez MD [address] [place] [address] [phone] Referring Cardiology 06/25/23 Usha Navarro MD [facility] [place] [address] Surgeon Cardiac Surg 06/25/23 Deena Francois MD [facility] [place] [address] Primary Staff Physician Cardiology 07/24/23 Pega Developer Relationship Specialty Start Date End Date Abdiel Mathews NP [facility]7 [place] [address] PCP - General Family Medicine 07/02/23 Nitesh Jimenez MD [address] [address] Referring Cardiology 06/25/23 Usha Navarro MD [address] [place] [phone] Surgeon Cardiac Surg 06/25/23 Deena Francois MD [address] [place] [address] Primary Staff Physician Cardiology 07/24/23 Pega Developer Relationship Specialty Start Date End Date Abdiel Mathews NP [address] [place] [address] [id number] PCP - General Family Medicine 07/02/23 Nitesh Jimenez MD [address] 999051 Referring Cardiology 06/25/23 Usha Navarro MD [facility] [place] 1710095 Surgeon Cardiac Surg 06/25/23 Deena Francois MD [facility] [place] [address] Primary Staff Physician Cardiology 07/24/23 Pega Developer Relationship Specialty Start Date End Date Abdiel Mathews NP [address] [place] [address] [phone] PCP - General Family Medicine 07/02/23 Nitesh Jimenez MD [address] [phone] Referring Cardiology 06/25/23 Usha Navarro MD [address] [place] [address] Surgeon Cardiac Surg 06/25/23 Deena Francois MD [address] [place] [address] Primary Staff Physician Cardiology 07/24/23 Pega Developer Relationship Specialty Start Date End Date Abdiel Mathews NP [address] [facility] [place] [address] PCP - General Family Medicine 07/02/23 Nitesh Jimenez MD [address] [phone] Referring Cardiology 06/25/23 Usha Navarro MD [address] [place] [address] Surgeon Cardiac Surg 06/25/23 Deena Francois MD [address] [place] [address] Primary Staff Physician Cardiology 07/24/23 Pega Developer Relationship Specialty Start Date End Date Abdiel Mathews NP [facility]7 [facility] [place] [address] PCP - General Family Medicine 07/02/23 Nitesh Jimenez MD [address] [facility] 3A [place], [place] 322051 Referring Cardiology 06/25/23 Usha Navarro MD [address] [place] [address] Surgeon Cardiac Surg 06/25/23 Deena Francois MD [address] [place], [place] [phone] Primary Staff Physician Cardiology 07/24/23 Pega Developer Relationship Specialty Start Date End Date Abdiel Mathews NP [address] [facility] [place], [place] 388141 PCP - General Family Medicine 07/02/23 Nitesh Jimenez MD [address] 978151 Referring Cardiology 06/25/23 Usha Navarro MD [address] [place] [address] Surgeon Cardiac Surg 06/25/23 Deena Francois MD [address] [place] [address] Primary Staff Physician Cardiology 07/24/23 Pega Developer Relationship Specialty Start Date End Date Abdiel Mathews NP [address] [place], [place] 385901 PCP - General Family Medicine 07/02/23 Nitesh Jimenez MD [address] [address] Referring Cardiology 06/25/23 Usha Navarro MD [address] [place] [address] Surgeon Cardiac Surg 06/25/23 Deena Francois MD [address] [place], [place] [phone] Primary Staff Physician Cardiology 07/24/23 Pega Developer Relationship Specialty Start Date End Date Abdiel Mathews NP [address] [facility] [place] [address] PCP - General Family Medicine 07/02/23 Nitesh Jimenez MD [address] [address] Referring Cardiology 06/25/23 Usha Navarro MD [address] [place] [address] Surgeon Cardiac Surg 06/25/23 Deena Francois MD [facility] [place] [phone] Primary Staff Physician Cardiology 07/24/23 Pega Developer Relationship Specialty Start Date End Date Abdiel Mathews NP [address] [facility] [place] [address] PCP - General Family Medicine 07/02/23 Nitesh Jimenez MD [address] [address] Referring Cardiology 06/25/23 Usha Navarro MD [address] [place] [address] Surgeon Cardiac Surg 06/25/23 Deena Francois MD [address] [place] [address] Primary Staff Physician Cardiology 07/24/23 Pega Developer Relationship Specialty Start Date End Date Abdiel Mathews NP [address] [facility] [place] [address] PCP - General Family Medicine 07/02/23 Nitesh Jimenez MD [address] [address] Referring Cardiology 06/25/23 Usha Navarro MD [address] [place] [address] Surgeon Cardiac Surg 06/25/23 Deena Francois MD [address] [place] [address] Primary Staff Physician Cardiology 07/24/23 Pega Developer Relationship Specialty Start Date End Date Abdiel Mathews NP [facility]7 [facility] [place] [address] PCP - General Family Medicine 07/02/23 Nitesh Jimenez MD [address] [address] Referring Cardiology 06/25/23 Usha Navarro MD [address] [place] [address] Surgeon Cardiac Surg 06/25/23 Deena Francois MD [address] [place] [address] Primary Staff Physician Cardiology 07/24/23 Pega Developer Relationship Specialty Start Date End Date Abdiel Mathews NP [address] [facility] [place] [address] PCP - General Family Medicine 07/02/23 Nitesh Jimenez MD 1761 [facility] 3A [place] [address] Referring Cardiology 06/25/23 Usha Navarro MD [address] [place] [address] Surgeon Cardiac Surg 06/25/23 Deena Francois MD [address] [place] [address] Primary Staff Physician Cardiology 07/24/23 Pega Developer Relationship Specialty Start Date End Date Abdiel Mathews NP [address] [facility] [place] [address] PCP - General Family Medicine 07/02/23 Nitesh Jimenez MD [address] [address] Referring Cardiology 06/25/23 Usha Navarro MD [address] [place] [address] Surgeon Cardiac Surg 06/25/23 Deena Francois MD [address] [place] [address] Primary Staff Physician Cardiology 07/24/23 Pega Developer Relationship Specialty Start Date End Date Abdiel Mathews NP [address] [facility] [place] [address] PCP - General Family Medicine 07/02/23 Nitesh Jimenez MD 1761 [facility] 3A [place] [address] Referring Cardiology 06/25/23 Usha Navarro MD [address] [place] [address] Surgeon Cardiac Surg 06/25/23 Deena Francois MD [address] [place] [address] Primary Staff Physician Cardiology 07/24/23 Pega Developer Relationship Specialty Start Date End Date Abdiel Mathews NP [address]77 [facility] [place] [address] PCP - General Family Medicine 07/02/23 Nitesh Jimenez MD 1761 [facility] [address]A [place] [address] Referring Cardiology 06/25/23 Usha Navarro MD [address] [place] [address] Surgeon Cardiac Surg 06/25/23 Deena Francois MD [address] [place] [address] Primary Staff Physician Cardiology 07/24/23 Pega Developer Relationship Specialty Start Date End Date Abdiel Mathews NP [address] [place] [address] PCP - General Family Medicine 07/02/23 Nitesh Jimenez MD 1761 [facility] [address]A [place] [address] Referring Cardiology 06/25/23 Usha Navarro MD [address] [place] [address] Surgeon Cardiac Surg 06/25/23 Deena Francois MD [facility] [place] [address] Primary Staff Physician Cardiology 07/24/23 Pega Developer Relationship Specialty Start Date End Date Abdiel Mathews NP [address] [place] [address] 39716 PCP - General Family Medicine 07/02/23 Nitesh Jimenez MD [address] [address] Referring Cardiology 06/25/23 Usha Navarro MD [address] [place] [address] Surgeon Cardiac Surg 06/25/23 Deena Francois MD [address] [place] [address] Primary Staff Physician Cardiology 07/24/23 Pega Developer Relationship Specialty Start Date End Date Abdiel Mathews NP [facility]7 [place] [address] PCP - General Family Medicine 07/02/23 Nitesh Jimenez MD [address] [address] Referring Cardiology 06/25/23 Usha Navarro MD [address] [place] [phone] Surgeon Cardiac Surg 06/25/23 Deena Francois MD [facility] [place] [phone] Primary Staff Physician Cardiology 07/24/23 Pega Developer Relationship Specialty Start Date End Date Abdiel Mathews NP [address] [place] [address] PCP - General Family Medicine 07/02/23 Nitesh Jimenez MD [address] [address] Referring Cardiology 06/25/23 Usha Navarro MD [address] [place] [phone] Surgeon Cardiac Surg 06/25/23 Deena Francois MD [address] [place] [address] Primary Staff Physician Cardiology 07/24/23 Pega Developer Relationship Specialty Start Date End Date Abdiel Mathews NP [address] [place] [address] 56489 PCP - General Family Medicine 07/02/23 Nitesh Jimenez MD [address] [address] Referring Cardiology 06/25/23 Usha Navarro MD [address] [place] [address] Surgeon Cardiac Surg 06/25/23 Deena Francois MD [address] [place] [address] Primary Staff Physician Cardiology 07/24/23 Pega Developer Relationship Specialty Start Date End Date Abdiel Mathews NP [address] [place] [address] 67867 PCP - General Family Medicine 07/02/23 Nitesh Jimenez MD [address] [address] Referring Cardiology 06/25/23 Usha Navarro MD [address] [place] [address] Surgeon Cardiac Surg 06/25/23 Deena Francois MD [address] [place] [address] Primary Staff Physician Cardiology 07/24/23 Pega Developer Relationship Specialty Start Date End Date Abdiel Mathews NP [facility]7 [place] [address] PCP - General Family Medicine 07/02/23 Nitesh Jimenez MD [address] [facility] [address]A [place] [address] Referring Cardiology 06/25/23 Usha Navarro MD [address] [place] [address] Surgeon Cardiac Surg 06/25/23 Deena Francois MD [address] [place] [address] Primary Staff Physician Cardiology 07/24/23 Pega Developer Relationship Specialty Start Date End Date Abdiel Mathews NP [address] [place] [address] PCP - General Family Medicine 07/02/23 Nitesh Jimenez MD [address] [facility] 3A [place] [address] Referring Cardiology 06/25/23 Usha Navarro MD [address] [place] [address] Surgeon Cardiac Surg 06/25/23 Deena Francois MD [address] [place] [address] Primary Staff Physician Cardiology 07/24/23 Pega Developer Relationship Specialty Start Date End Date Abdiel Mathews NP [facility] [place] [address] PCP - General Family Medicine 07/02/23 Nitesh Jimenez MD [address] [facility] [address]A [place] [address] Referring Cardiology 06/25/23 Usha Navarro MD [address] [place] [address] Surgeon Cardiac Surg 06/25/23 Deena Francois MD [address] [place] [address] Primary Staff Physician Cardiology 07/24/23 Pega Developer Relationship Specialty Start Date End Date Abdiel Mathews NP [address] [place] [address] 98338 PCP - General Family Medicine 07/02/23 Nitesh Jimenez MD [address] [address] Referring Cardiology 06/25/23 Usha Navarro MD [address] [place] [address] Surgeon Cardiac Surg 06/25/23 Deena Francois MD [address] [place] [address] Primary Staff Physician Cardiology 07/24/23 Pega Developer Relationship Specialty Start Date End Date Abdiel Mathews NP [address] [place] [address] 09085 PCP - General Family Medicine 07/02/23 Nitesh Jimenez MD [address] [facility] [address] [place] [address] Referring Cardiology 06/25/23 Usha Navarro MD [address] [place] [phone] Surgeon Cardiac Surg 06/25/23 Deena Francois MD [address] [place] [phone] Primary Staff Physician Cardiology 07/24/23 Pega Developer Relationship Specialty Start Date End Date Abdiel Mathews NP [address] [place] [address] 78696 PCP - General Family Medicine 07/02/23 Nitesh Jimenez MD [address] 882001 Referring Cardiology 06/25/23 Usha Navarro MD [address] [place] [phone] Surgeon Cardiac Surg 06/25/23 Deena Francois MD [address] [place] [phone] Primary Staff Physician Cardiology 07/24/23 Pega Developer Relationship Specialty Start Date End Date Abdiel Mathews NP [address] [place] [address] 01313 PCP - General Family Medicine 07/02/23 Nitesh Jimenez MD [address] 496063 Referring Cardiology 06/25/23 Usha Navarro MD [address] [place] [address] Surgeon Cardiac Surg 06/25/23 Deena Francois MD [facility] [place] [address] Primary Staff Physician Cardiology 07/24/23 Pega Developer Relationship Specialty Start Date End Date Abdiel Mathews NP [address] [place] [place] [address] PCP - General Family Medicine 07/02/23 Nitesh Jimenez MD [address] [address] Referring Cardiology 06/25/23 Usha Navarro MD [address] [place] [address] Surgeon Cardiac Surg 06/25/23 Deena Francois MD [address] [place] [address] Primary Staff Physician Cardiology 07/24/23 Pega Developer Relationship Specialty Start Date End Date Abdiel Mathews NP [address] [place] [address] [phone] PCP - General Family Medicine 07/02/23 Nitesh Jimenez MD [address] [facility] 3A [place] [address] Referring Cardiology 06/25/23 Usha Navarro MD [address] [place] [address] Surgeon Cardiac Surg 06/25/23 Deena Francois MD [address] [place], [place] [phone] Primary Staff Physician Cardiology 07/24/23 Pega Developer Relationship Specialty Start Date End Date Abdiel Mathews NP [address]77 [place] [address] PCP - General Family Medicine 07/02/23 Nitesh Jimenez MD [address] 108561 Referring Cardiology 06/25/23 Usha Navarro MD [address] [place], [place] [phone] Surgeon Cardiac Surg 06/25/23 Deena Francois MD [address] [place] [address] Primary Staff Physician Cardiology 07/24/23 Pega Developer Relationship Specialty Start Date End Date Abdiel Mathews NP [facility]7 [facility] [place], [place] 445371 PCP - General Family Medicine 07/02/23 Nitesh Jimenez MD 176 [facility] 3A [place], [place] 573361 Referring Cardiology 06/25/23 Usha Navarro MD [address] [place] [phone] Surgeon Cardiac Surg 06/25/23 Deena Francois MD [address] [place] [phone] Primary Staff Physician Cardiology 07/24/23 Pega Developer Relationship Specialty Start Date End Date Abdiel Mathews NP [address] [place] [address] PCP - General Family Medicine 07/02/23 Nitesh Jimenez MD 1761 [facility] [address] [place], [place] 240101 Referring Cardiology 06/25/23 Usha Navarro MD [address] [place] [phone] Surgeon Cardiac Surg 06/25/23 Deena Francois MD [address] [place] [phone] Primary Staff Physician Cardiology 07/24/23 Pega Developer Relationship Specialty Start Date End Date Abdiel Mathews NP [address] [place] [address] PCP - General Family Medicine 07/02/23 Nitesh Jimenez MD 1761 [facility] [address] [place] [address] Referring Cardiology 06/25/23 sUha Navarro MD [address] [place] [address] Surgeon Cardiac Surg 06/25/23 Deena Francois MD [address] [place] [phone] Primary Staff Physician Cardiology 07/24/23 Pega Developer Relationship Specialty Start Date End Date Abdiel Mathews NP [address] [place] [address] PCP - General Family Medicine 07/02/23 Nitesh Jimenez MD [address] [place] [address] [phone] Referring Cardiology 06/25/23 Usha Navarro MD [address] [place], [place] [phone] Surgeon Cardiac Surg 06/25/23 Deena Francois MD [facility] [place] [phone] Primary Staff Physician Cardiology 07/24/23 Pega Developer Relationship Specialty Start Date End Date Abdiel Mathews NP [facility] [place] [address] PCP - General Family Medicine 07/02/23 Nitesh Jimenez MD [address] [address] Referring Cardiology 06/25/23 Usha Navarro MD [address] [place] [address] Surgeon Cardiac Surg 06/25/23 Deena Francois MD [address] [place] [address] Primary Staff Physician Cardiology 07/24/23 Team Status: [...] BE BASED ON THE PRIMARY CLINICAL RECORDS. [facility] [employer] provides no warranty or guarantee of the accuracy or completeness of information in this document.
[2025-03-26 02:29] LABS: Magnesium 1.8 mg/dL (1.5-2.2)
--- NOTE | 2025-03-26 02:43 | ECHOCS_ITS ---
Reason For Study Reason For Study: OTHER Procedure This was a 2D Doppler, Color Flow transthoracic echocardiogram. The study was technically difficult. Exam performed portable in ICU/CCU. Left Ventricle Small LV cavity. Severe left ventricular concentric hypertrophy. Estimated LVEF 70%. Stage I diastolic dysfunction. Right Ventricle Normal right ventricle. Atria Normal left atrium. The right atrium is not well visualized. Mitral Valve Normal mitral valve. Tricuspid Valve Trivial tricuspid valve insufficiency. Normal pulmonary artery pressure. Aortic Valve Bioprosthetic aortic valve appears to function normally. Mean peak gradient 16 mmHg. Pulmonic Valve The pulmonic valve is not well visualized. Trivial pulmonic valve insufficiency. Great Vessels Normal sized aortic root. Pericardium/Pleural No pericardial effusion. Medication Diluted definity 5ml given slow IV push to enhance endocardial definition. MMode/2D Measurements & Calculations LVIDd: 4.3 cm IVSd: 1.8 cm LVOT diam: 2.0 cm LVIDs: 2.7 cm LVPWd: 1.8 cm RVDd: 4.2 cm FS: 37.8 % LVOT area: 3.1 cm2 Ao root diam: 4.0 cm LAV(MOD-bp): 44.5 ml LVAd ap4: 32.4 cm2 LAV(MOD-bp) Indexed: 18.6 ml/m2 LVLd ap4: 10.4 cm LAV(MOD-sp2): 45.3 ml EDV(MOD-sp4): 87.1 ml LAV(MOD-sp4): 45.2 ml EDV(sp4-el): 85.9 ml LVAs ap4: 19.0 cm2 LVLs ap4: 9.0 cm ESV(MOD-sp4): 36.9 ml ESV(sp4-el): 34.0 ml EF(MOD-sp4): 57.7 % EF(sp4-el): 60.4 % SV(MOD-sp4): 50.2 ml SV(sp4-el): 51.9 ml LA A4 area: 18.8 cm2 SI(MOD-sp4): 21.0 ml/m2 LA dimension(2D): 3.4 cm RA A4 area: 21.9 cm2 TAPSE: 1.9 cm Time Measurements MV dec time: 0.28 sec Doppler Measurements & Calculations MV E max alejo: 86.8 cm/sec Lat Peak E' Alejo: 9.1 cm/sec Med Peak E' Alejo: 8.7 cm/sec MV A max alejo: 89.6 cm/sec E/E' lat: 9.5 E/E' med: 10.0 MV E/A: 0.97 Ao V2 max: 249.1 cm/sec LV V1 max: 115.1 cm/sec SV(LVOT): 71.1 ml Ao max P.8 mmHg LV V1 max P.3 mmHg Ao V2 mean: 192.5 cm/sec LV V1 mean P.2 mmHg Ao mean P.4 mmHg LV V1 mean: 82.4 cm/sec Ao V2 VTI: 45.6 cm LV V1 VTI: 23.0 cm AV (velocity ratio): 0.51 EMILY(I,D): 1.6 cm2 EMILY(V,D): 1.4 cm2 PA V2 max: 85.1 cm/sec TR max alejo: 227.7 cm/sec TR max P.7 mmHg ECHO/Echo Complete W/ Contrast Interpretation Summary Small LV cavity. Severe left ventricular concentric hypertrophy. Estimated LVEF 70%. Stage I diastolic dysfunction. Bioprosthetic aortic valve appears to function normally. Mean peak gradient 16 mmHg. The study was technically difficult. Ordering Physician: Anthony Alberto Referring Physician: ABDIEL MATHEWS Performed By: Chanelle St RDCS
[2025-03-26 02:57] LABS: Troponin T High Sens 4 HR 52 ng/L (<=22)
[2025-03-26] MEDS: 0.9% Normal Saline (1000mL) 1,000 ML 125 ML IV (03:00)
--- NOTE | 2025-03-26 03:09 | PCM.RX.CS ---
Consult Antibiotic Management Pharmacy has been consulted to manage selected antibiotic: Vancomycin Type of Intervention Type of Consult: New start Labs Labs: Sodium 136 mmol/L (133-145) 03/25/25 22:00 Potassium 4.2 mmol/L (3.3-5.1) 03/25/25 22:00 Chloride 100 mmol/L (98-108) 03/25/25 22:00 Carbon Dioxide 17.9 mmol/L (21.0-32.0) L 03/25/25 22:00 Anion Gap 18 (5-15) H 03/25/25 22:00 BUN 21 mg/dL (4-19) H 03/25/25 22:00 Creatinine 1.56 mg/dL (0.70-1.20) H 03/25/25 22:00 Est GFR (MDRD) Non-Af 48 (>60) L 03/25/25 22:00 BUN/Creatinine Ratio 13.3 RATIO (10-20) 03/25/25 22:00 Glucose 148 mg/dL (70-99) H 03/25/25 22:00 Microbiology Microbiology: Microbiology 03/25/25 23:14 Mucosa - Nose SARS-CoV-2, Influenza & RSV (PCR) - Final Dosing Weight Weight used for dosin kg Estimated Creatinine Clearance Estimated Creatinine Clearance: 60 Goal Trough Goal Trough: 15-20 mcg/mL Pharmacy Plan for Drug Dosing Pharmacy Plan for Drug Dosing: Pharmacy Service will continue to monitor and adjust dosing as required. Follow-Up Labs Follow-Up Labs: Trough: Vancomycin Date/Time Labs Ordered Labs to be done on [date and time ordered]: 03/27/25 @1300
[2025-03-26 04:08] LABS: Reflex Lactate? Y
[2025-03-26] MEDS: Lorazepam 2 MG/ML WCH Syringe 0.5 MG IV (04:15)
[2025-03-26 04:19] LABS: Allen Test Positive; Base Excess -6 mmol/L (-2 to +2); PO2 61 mmHG (75-100); SITE L Radial; SO2 93 % (95-99)
[2025-03-26 04:53] LABS: Differential Indicated SCAN CRITERIA MET; Hematocrit 44.1 % (40-54); Hemoglobin 15.0 g/dL (13.0-16.5); Immature Granulocytes Count 0.020 X10^3/uL (0.0-0.0); Mean Corp Hgb Conc 34.0 g/dL (32-36); Mean Corpuscular Volume 92.8 fL (80-94); Mean Platelet Vol. 11.1 fl (6.2-12.0); NRBC Flagged by Analyzer 0 % (0-5); POSITIVE COUNT YES; POSITIVE MORPHOLOGY YES; Platelet Count 134 K/mm3 (150-450); RBC Distribution Width CV 13.2 % (11.6-14.6); RBC Distribution Width SD 45.0 fl (35.1-43.9); Red Blood Count 4.75 M/mm3 (4.6-6.2); White Blood Count 9.7 K/mm3 (4.4-11.0)
--- NOTE | 2025-03-26 04:59 | NURSING ---
Alexia notified of transfer to ICU and intubation
[2025-03-26] MEDS: Propofol 10MG/Ml 1,000 MG/100 ML Bottle 6.9 MG CONT INF (05:00)
[2025-03-26] MEDS: fentaNYL drip 100 ML 5 MCG CONT INF (05:15)
--- NOTE | 2025-03-26 05:17 | NURSING ---
Addendum entered by Abbey Ambrose 03/26/25 05:40: d/t pt's rapidly changing status, this rn was present in pt's room from 024 until transfer to icu Original Note: 0244 pt arrived on floor. had received 2L fluid and 3rd was started upon arrival. 0300. assessed pt. temp 97.7, HR120 Rsps 32 bp 109/62 0325 pt had episode of rigors and shaking. cool to touch, mildly diaphoretic, similar to behavior in ED. HR in the 130s, rsps 40. unable to obtain accurate bp d/t shaking 0355 HR noted to be sustained in the 150s and rsprs continue to increase. pt continues to have significant amt of rigors. 0359 relief charge nurse notified dr sutherland of pt's current vs and change in status. orders entered. 0414 0.5 mg ativan given early, per dr sutherland's order. blood gas drawn by cps. 0423 vs temp 105.3, hr 160, rsprs 51, spo2 94 on 2LNC bp 93/70 0425 rapid response called as HR was in to mid 170s, rsprs sustained in 50s. -see rapid response charting.
--- NOTE | 2025-03-26 05:20 | RAD_ITS ---
PROCEDURE: CHEST 1 VIEW (PORTABLE) 03/26/2025 REASON FOR EXAM: ETT PLACEMENT TECHNIQUE: Frontal view of the chest. COMPARISON: 03/25/2025 FINDINGS: ETT tip at thoracic inlet. Enteric tube tip in stomach lumen. Normal heart size. Status post AVR. Status post CABG. Well inflated lungs. No consolidation, effusion or pneumothorax. RAD/Chest 1 View (Portable) IMPRESSION: No acute chest findings. Reading Location: [facility]
[2025-03-26] MEDS: Norepinephrine 8 MG in 0.9% Normal Saline (250mL Bag) 242 ML 9.4 MG CONT INF ×2 (05:30→21:05)
--- NOTE | 2025-03-26 05:52 | EKG12_ITS ---
Test Reason : REPEAT CURATOR OF EDUCATION, TACHYCARDIA Blood Pressure : */* mmHG Vent. Rate : 122 BPM Atrial Rate : 122 BPM P-R Int : 174 ms QRS Dur : 98 ms QT Int : 320 ms P-R-T Axes : 59 -5 145 degrees QTcB Int : 456 ms Sinus tachycardia with occasional Premature ventricular complexes Possible Left atrial enlargement Left ventricular hypertrophy with repolarization abnormality ( R in aVL ) Abnormal ECG When compared with ECG of 26-Mar-2025 04:28, Fusion complexes are no longer Present Confirmed by Al Roman ([id number]), publishing editor CRISTO BAH ([id number]) on 03/30/2025 5:44:02 AM Referred By: Lexa Maloney Confirmed By: Al Roman
[2025-03-26 05:54] LABS: AST(SGOT) 30 U/L (<=37); Alanine Aminotransfer ALT/SGPT 29 U/L (<=46); Albumin, Serum 3.5 g/dL (3.4-4.8); Alkaline Phosphatase 59 U/L (40-129); Anion Gap 15 (5-15); BUN 28 mg/dL (4-19); BUN/Creat Ratio 12.9 RATIO (10-20); Calcium,Total 7.9 mg/dL (7.6-11.0); Carbon Dioxide 15.2 mmol/L (21.0-32.0); Chloride 106 mmol/L (98-108); Cholesterol 89 mg/dL (<=200); Estimated Creatinine Clearance 42.74 ml/min (50-250); Globulin 2.3 g/dL (2.2-4.2); Glucose 140 mg/dL (70-99); Low Density Lipoprotein Calc. 41 mg/dL; Potassium 3.9 mmol/L (3.3-5.1); Triglycerides 84 mg/dL; Very Low Density Lipoprotein 17 mg/dL (5-40); cholesterol:hdl ratio screen 2.88
[2025-03-26 05:56] LABS: Differential Comment SCANNED
--- NOTE | 2025-03-26 06:05 | NURSING ---
Rapid response called on PCU. Responded to patient's room, primary RN said his temp was normal on admission and now they were getting around 105 degrees. HR in the 160s. Started packing patient in ice, RT obtaining EKG. Dr. Alberto at bedside and made the decision to transfer patient to ICU and intubate. Patient arrived to ICU at 0445. Core temp vee placed. Dr. Alberto at bedside and gave orders for sedation. 0450: 10 mg etomidate IV and 10 mg succinylcholine IV x1 given. Patient intubated with #8.0 ETT, 24 @ lip. Bilateral breath sounds and positive color change noted. Propofol gtt hung and started at 10 mcg/kg/min. 0500: OG placed, orders placed for X-ray. Dr. Alberto gave verbal order for additional 10 mg etomidate IV to be given while waiting for propofol to start working.
--- NOTE | 2025-03-26 06:11 | NURSING ---
After intubating and initiating sedation, patient became hypotensive. Patient already received 3 liters of normal saline boluses in the ED. Levophed order given by Dr. Alberto and started for hypotension.
[2025-03-26 06:17] LABS: D-Dimer Quantitative (DVT/PE) 5.35 FEU/ug/m (0.27-0.49)
[2025-03-26] MEDS: Pantoprazole Sodium 40 MG in 0.9% Normal Saline (100mL MB+) 100 ML 330 MG IV (06:39)
[2025-03-26] MEDS: 0.9% Saline Lock 10 ML Syringe IV (06:40)
[2025-03-26] MEDS: Potassium Phosphate 45 MM in 0.9% Normal Saline (500mL Bag) 500 ML 85 MM IV (06:40)
--- NOTE | 2025-03-26 06:41 | VDLE_ITS ---
Reason For Study Reason For Study: Elevated D-dimer RIGHT LEFT GSV is normal. GSV is normal. CFV is compressible, spontaneous, phasic, competent CFV is compressible, spontaneous, phasic, competent, and demonstrates normal augmentation. and demonstrates normal augmentation. FV is compressible, spontaneous, phasic, competent FV is compressible, spontaneous, phasic, competent and demonstrates normal augmentation. and demonstrates normal augmentation. POP V is compressible, spontaneous, phasic, competent POP V is compressible, spontaneous, phasic, competent and demonstrates normal augmentation. and demonstrates normal augmentation. T/P Trunk is compressible. T/P Trunk is compressible. PTV is compressible. PTV is compressible. RT PerV is compressible. LT PerV is compressible. Procedure This is a venous duplex using B-mode, color flow and spectral Doppler. Exam performed portable in ICU/CCU. A preliminary report was called and/or faxed to Dr. Ngo. VL/Venous Duplex US - Andrea Extrem Interpretation Summary Deep veins of the bilateral lower extremities are patent and compressible segme ntally. There is no evidence of bilateral lower extremity deep vein thrombosis. The bilateral great saphenous veins appea r patent and compressible segmentally. Ordering Physician: Anthony Alberto Referring Physician: Alida Parker Performed By: Violeta Alvarenga RVT
[2025-03-26 06:44] LABS: CPK Total, Creatine Kinase 214 U/L (24-195); Triglycerides 85 mg/dL
--- NOTE | 2025-03-26 07:48 | EX.PCM.CONCC ---
Assessment & Plan Assessment/Plan (1) ELISE (acute kidney injury): (2) Shock: PLAN: Plan RECOMMENDATIONS: 1. Proceed with extubation. Continue supplemental oxygen to maintain saturations at or above 90%. 2. Given patient complaints, recommend repeating COVID, influenza and RSV PCR. 3. Antimicrobials per ID recommendations. 4. Autoimmune workup as ordered. 5. Lower extremity Doppler study and echocardiogram are pending. 6. Continue Levophed to maintain mean arterial pressure at or above 65 mmHg. 7. Given complaints of muscle aches, will check CPK and hold statin. 8. Continue appropriate DVT prophylaxis. IMPRESSIONS: 1. Undifferentiated shock/fever of unknown origin The patient initially presented to the hospital with generalized malaise, fatigue and muscle aches of several days duration. He denied any recent sick contact exposure. His hospital course has been complicated by lactic acidemia, acute kidney injury and hypotension which was refractory to fluid resuscitation. The patient has since been initiated on vasopressor support. While sepsis is certainly a possibility, no definitive source of infection has yet to be identified. CT imaging of the chest, abdomen and pelvis demonstrated no acute pathology. Cultures are currently pending. Although the patient's initial COVID/influenza/RSV PCR was negative, given his presenting symptoms, I would plan to recheck a second swab. In the interim, the patient will be continued on antimicrobials, pending culture workup. Lastly, given the patient's fever of unclear etiology, will obtain an autoimmune workup as well. There was no PE on CT imaging. Lower extremity Doppler study for DVT is pending. 2. 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 Nevertheless, the patient was not notably hypoxemic, and again, had no discernible pathology noted on chest imaging. Upon my evaluation of the patient, he was maintaining saturations on 21% FiO2 and was appropriately alert and interactive. Therefore, he was subsequently extubated. He will be continued on supplemental oxygen, if needed, to maintain saturations at or above 90%. 3. Acute kidney injury/hypophosphatemia Most likely prerenal in etiology. The patient will be continued on IV fluid resuscitation. Will obtain renal ultrasound. Continue to monitor urine output for now. No current indication for renal replacement therapy. 4. Troponin elevation Most likely secondary to demand ischemia in the setting of #1. However, given the patient's cardiac history, follow-up echocardiogram is pending. 5. History of hypertension/hyperlipidemia/diabetes mellitus/AAA/aortic stenosis status post AVR/suspected sleep apnea Complicates care, management, recovery and prognosis. In light of the patient's history of high risk for sleep apnea, orders for empiric PAP therapy while admitted to the hospital will be placed. Recommend outpatient polysomnogram when feasible. TIME: 42 minutes of critical care time, independent of procedures, was spent addressing the patient's undifferentiated shock, fever of unknown origin, acute respiratory failure, acute kidney injury, review of all data and collaboration with the care team. HPI Consult Data Date of Consult: 03/26/25 HPI Narrative Reason for Consultation: Respiratory failure HPI Narrative: The patient is a 69-year-old male, with a history as outlined below, who presented to the emergency department on March 26 with complaints of fevers, chills and generalized malaise and weakness. The patient has a known history of hypertension, hyperlipidemia, diabetes mellitus and history of ascending aortic aneurysm complicated by aortic root dilatation and nonrheumatic aortic stenosis with bicuspid aortic valve; s/p aneurysm repair and AVR with #25 Inspra (2022) followed by [facility]. On presentation to the emergency department, the patient was initially noted to be afebrile hemodynamically stable. He was, however, documented to be tachycardic and tachypneic. Laboratory evaluation revealed a white blood cell count of 13,000. Platelet count was decreased at 130,000. D-dimer was elevated at 5.35. Chemistry profile was notable for an anion gap of 18 with a BUN of 21 and creatinine of 1.56. Lactate was elevated at 3.5. Total bilirubin was increased at 1.78. Troponin was elevated at 51. Procalcitonin was elevated at 1.47. TSH was within normal limits. Urine analysis was negative for nitrites and leukocyte esterase. Toxicology screen was negative. CT chest/abdomen/pelvis was obtained which demonstrated no acute chest abdomen or pelvic pathology. Head CT was unremarkable. CT soft tissue neck demonstrated no acute findings. COVID, influenza and RSV PCR's were negative. Blood cultures were collected. The patient initially received supplemental IV fluid hydration and was placed on antimicrobials. He was initially admitted to a non-ICU status medical bed in the hospital. At approximately 4:30 AM on March 26, the patient developed a high-grade fever of 105 ?F and was documented to have become increasingly tachycardic and tachypneic. He was maintaining saturations on 2 L/min via nasal cannula. Although I am not entirely clear, it appears that the patient was transferred to the ICU and subsequently intubated secondary to his tachypnea. An ID consultation was subsequently placed. The patient was started on propofol and fentanyl for sedation. After being started on propofol, the patient became increasingly hypotensive and was started on Levophed. At the time that I evaluated the patient this morning, he was noted to be saturating in the high 90s on 21% FiO2 and a PEEP of 5. Again, there was no lung pathology noted on CTA chest, nor on postintubation chest x-ray. The patient does not have any significant secretions. He was alert and able to follow commands appropriately. Accordingly, the patient's sedation was subsequently placed on hold and the patient was placed on a spontaneous breathing trial, which she completed without any issue. The patient was subsequently extubated. Following extubation, the patient was able to confirm to me that he has simply felt unwell over the last couple days with generalized malaise, fatigue and muscle aches. He denies any recent sick contact exposure. He denied any history of any autoimmune conditions. The patient does believe that he has underlying sleep apnea, but has never been formally diagnosed or tested for the aforementioned. His , present at the bedside, again confirmed her suspicion for sleep apnea. 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 [facility] Medical History Aortic stenosis Cardiomyopathy Abnormal echocardiogram findings without diagnosis Nonrheumatic aortic (valve) stenosis (~09/20/21) Pure hypercholesterolemia Essential hypertension Aortic root dilatation Chest pain Family history of CVA Family history of hypertension Abnormal electrocardiogram Angina pectoris Undiagnosed cardiac murmurs Bicuspid aortic valve Other correction (current) drug therapy Home Medications ?Medication ?Instructions ?Recorded ?Last Taken ?Type aspirin 81 mg chewable tablet 81 mg PO DAILY@0800 07/23/14 06/10/23 History atorvastatin 20 mg tablet 20 mg PO QHS #90 tabs 09/30/20 07/30/22 Rx nitroglycerin 0.4 mg sublingual 0.4 mg sublingual Q5M PRN chest 10/03/20 Unknown Rx tablet (Nitrostat) pain #90 tabs omeprazole 40 mg capsule,delayed 40 mg PO DAILY PRN heart burn 10/04/21 Unknown History release empagliflozin 10 mg tablet 10 mg PO DAILY 11/04/23 Unknown History (Jardiance) multivitamin (Daily Multi-Vitamin 1 tab PO DAILY 11/04/23 Unknown History tablet) telmisartan 20 mg tablet 20 mg PO DAILY 05/04/24 Unknown History amoxicillin 500 mg tablet See Rx Instructions PO .COMPLEX #8 08/04/24 Unknown Rx tabs metoprolol tartrate 100 mg tablet 100 mg PO BID #60 tabs 12/24/24 Unknown Rx Allergy/AdvReac Type Severity Reaction Status Date / Time No Known Allergies Allergy Verified 03/25/25 21:49 Family History Father CVA (cerebral vascular accident) Hypertension Skin cancer Mother Hypertension Breast cancer Skin cancer Brother Hypertension Sister Hypertension Other Family history of CVA Family history of hypertension Surgical History S/P ascending aortic aneurysm repair S/P AVR (aortic valve replacement) and aortoplasty History of surgical biopsy (~07/2022) History of tonsillectomy and adenoidectomy History of bursectomy History of shoulder surgery History of cataract surgery Social History household members: spouse current occupational status: retired 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 The patient is alert and able to follow commands appropriately. HEENT normocephalic and head/scalp atraumatic Mouth: endotracheal tube in place and OG tube in place Eyes PERRL, EOMs intact bilaterally and conjunctivae normal Neck supple General: trachea midline Chest inspection of chest normal Resp normal respiratory effort Auscultation: Negative for rales, rhonchi or wheezes Cardio regular rate and regular rhythm GI normal to inspection, nondistended, normoactive bowel sounds Extremity no clubbing, cyanosis or edema Skin no rashes or lesions noted Neuro Neuro Narrative: Alert and able to follow commands appropriately. Lab / Micro Data 03/26/25 04:05 03/26/25 05:28 Labs: Laboratory Results - last 24 hr 03/25/25 22:00: WBC 13.3 H, RBC 5.18, Hgb 16.2, Hct 46.4, MCV 89.6, MCH 31.3, MCHC 34.9, RDW Std Deviation 42.0, RDW Coeff of Feli 12.8, Plt Count 130 L, MPV 10.4, Immature Gran % (Auto) 0.400, Neut % (Auto) 89.1 H, Lymph % (Auto) 4.7 L, [place] % (Auto) 4.9, Eos % (Auto) 0.4, Baso % (Auto) 0.5, Absolute Neuts (auto) 11.9 H, Absolute Lymphs (auto) 0.63 L, Nucleated RBC % 0, Sodium 136, Potassium 4.2, Chloride 100, Carbon Dioxide 17.9 L, Anion Gap 18 H, BUN 21 H, Creatinine 1.56 H, Est GFR (MDRD) Non-Af 48 L, BUN/Creatinine Ratio 13.3, Glucose 148 H, Calcium 9.3, Magnesium 1.8, Total Bilirubin 1.78 H, Direct Bilirubin 0.74 H, AST 27, ALT 38, Alkaline Phosphatase 75, Total Creatine Kinase 116, Troponin T High Sens 51 H, Total Protein 7.2, Albumin 4.3, Globulin 2.9, Lipase 23, Procalcitonin 1.47 H, TSH 2.140 03/25/25 22:09: POC Glucose 151 H 03/26/25 00:03: Lactic Acid 3.5 H* 03/26/25 00:08: Magnesium 1.8, Troponin T Hi Sens 2 Hr 58 H*, Urine Color Yellow, Urine Clarity Clear, Urine pH 5.0, Ur Specific [place] 1.020, Urine Protein 30 H, Urine Glucose (UA) 1000 H, Urine Ketones Negative, Urine Occult Blood Negative, Urine Nitrite Negative, Urine Bilirubin Negative, Urine Urobilinogen Normal, Ur Leukocyte Esterase Negative, Urine RBC 0 SEEN, Urine WBC 0 SEEN, Ur Squamous Epith Cells 0 SEEN, Urine Bacteria 1+, Urine Mucus 0 SEEN, Urine Opiates Screen NEGATIVE, U Buprenorphine Qual NEGATIVE, Ur Oxycodone Screen NEGATIVE, Urine Methadone Screen NEGATIVE, Urine Fentanyl Screen NEGATIVE, Ur Barbiturates Screen NEGATIVE, Ur Phencyclidine Scrn NEGATIVE, Ur Amphetamines Screen NEGATIVE, U Benzodiazepines Scrn NEGATIVE, Urine Cocaine Screen NEGATIVE, U Cannabinoids Screen NEGATIVE 03/26/25 02:28: Troponin T Hi Sens 4Hr 52 H 03/26/25 04:05: WBC 9.7, RBC 4.75, Hgb 15.0, Hct 44.1, MCV 92.8, MCH 31.6, MCHC 34.0, RDW Std Deviation 45.0 H, RDW Coeff of Feli 13.2, Plt Count 134 L, MPV 11.1, Immature Gran % (Auto) 0.200, Neut % (Auto) 88.0 H, Lymph % (Auto) 10.0 L, [place] % (Auto) 1.3, Eos % (Auto) 0.0, Baso % (Auto) 0.5, Absolute Neuts (auto) 8.6 H, Absolute Lymphs (auto) 0.97, Nucleated RBC % 0, Differential Comment SCANNED, D-Dimer Quant (PE/DVT) 5.35 H*, Sodium Cancelled, Potassium Cancelled, Chloride Cancelled, Carbon Dioxide Cancelled, Anion Gap Cancelled, BUN Cancelled, Creatinine Cancelled, Estim Creat Clear Calc Cancelled, Est GFR (MDRD) Non-Af Cancelled, BUN/Creatinine Ratio Cancelled, Glucose Cancelled, Hemoglobin A1c 6.2 H, Lactic Acid 5.1 H*, Calcium Cancelled, Phosphorus Cancelled, Total Bilirubin Cancelled, AST Cancelled, ALT Cancelled, Alkaline Phosphatase Cancelled, Total Protein Cancelled, Albumin Cancelled, Globulin Cancelled, Albumin/Globulin Ratio Cancelled, Triglycerides Cancelled, Cholesterol Cancelled, LDL Cholesterol, Calc Cancelled, VLDL Cholesterol Cancelled, HDL Cholesterol Cancelled, Cholesterol/HDL Ratio Cancelled 03/26/25 04:27: POC Glucose 133 H 03/26/25 05:28: Sodium 136, Potassium 3.9, Chloride 106, Carbon Dioxide 15.2 L, Anion Gap 15, BUN 28 H, Creatinine 2.17 H, Estim Creat Clear Calc 42.74 L, Est GFR (MDRD) Non-Af 32 L, BUN/Creatinine Ratio 12.9, Glucose 140 H, Calcium 7.9, Phosphorus 1.0 L*, Total Bilirubin 2.05 H, AST 30, ALT 29, Alkaline Phosphatase 59, Total Creatine Kinase 214 H, Total Protein 5.8 L, Albumin 3.5, Globulin 2.3, Albumin/Globulin Ratio 1.5, Triglycerides 84 03/26/25 05:28: Triglycerides 85, Cholesterol 89, LDL Cholesterol, Calc 41, VLDL Cholesterol 17, HDL Cholesterol 31 L, Cholesterol/HDL Ratio 2.88 03/26/25 06:36: POC Glucose 133 H Micro: Microbiology 03/25/25 23:14 Mucosa - Nose SARS-CoV-2, Influenza & RSV (PCR) - Final ABG Data ABG results: ABG 03/26/25 03/26/25 01:08 04:14 Specimen Type FRANCI ART Sample Site Not entered L Radial pH 7.46 H Bicarbonate Actual 17.8 L Total CO2 19 Base Excess -6 L O2 Saturation 93 L ABG pCO2 25.3 L ABG pO2 61 L Noe Test Positive VBG pH 7.38 VBG pO2 14 L* VBG HCO3 28 H VBG Total CO2 30 VBG O2 Sat (Calc) 17 L VBG Base Excess 3 POC Mix VBG pCO2 Pt Tmp 47.5 O2 Delivery Device Room Air Room Air Vent Mode Not entered Crit Call To/Read Back Yes Blood Gas Notified Whom Andes Blood Gas Notified Time 01:09:53 Imaging Radiology Impression Chest X-Ray 03/25/25 22:45 IMPRESSION: Cardiomegaly. No acute pulmonary disease. Reading Location: [id number] Chest/Abdomen/Pelvis CTA 03/26/25 00:00 IMPRESSION: Status post AVR. Status post ascending aortic repair with graft. No thoracic aortic aneurysm or dissection. No acute chest, abdomen, or pelvic pathology. Reading Location: [facility] Brain [address] 03/26/25 01:08 IMPRESSION: No acute intracranial findings. Reading Location: [facility] Soft Tissue Neck [address] 03/26/25 01:08 IMPRESSION: No acute findings. Reading Location: [id number] Chest X-Ray 03/26/25 05:20 IMPRESSION: No acute chest findings. Reading Location: [facility] Sepsis Attestation Sepsis Alert: Yes Sepsis Attestation: Agree w/Sepsis Date exam was performed: 03/26/25 Time exam was performed: 08:54 Possible Source of Sepsis: Other Sepsis Organ Dysfunction Criteria Present: SBP < 90 mmHg or MAP < 65 mmHg, Acute Respiratory Failure (New need for BiPAP/CPAP or MV), Creatinine > 2.0 mg/dL, Total Bilirubin > 2 mg/dl and Serum CO2 < 20 mmol/L (on BMP) Fluid Resuscitation Fluid resuscitation indicated?: Yes Fluid Resuscitation ordered: 30 ml/kg fluid bolus ordered Sepsis Note Date exam was performed: 03/26/25 Time exam was performed: 08:54 Sepsis Attestation: Sepsis re-evaluation was performed Response to fluids: Non Fluid responsive hypotension and Vasopressors started Charges/Coding Procedures Hospitalists Procedures: 89649 Critical Care 1st Hr
[2025-03-26 08:11] LABS: Allen Test Positive; Base Excess -3 mmol/L (-2 to +2); FI02 21.0; PEEP 5; PO2 59 mmHG (75-100); SITE R Radial; SO2 92 % (95-99)
[2025-03-26 08:17] LABS: Reflex Lactate? Y
--- NOTE | 2025-03-26 08:45 | CPS ---
per dr akers, patient did not need to be on the ventilator. no hx of lung issues, pt on 21% and is arousable. extubated at 0825
[2025-03-26 09:25] LABS: Troponin T High Sensitivity 121 ng/L (<=22)
--- NOTE | 2025-03-26 09:50 | US_ITS ---
PROCEDURE: KIDNEY AND BLADDER N/A REASON FOR EXAM: ELISE TECHNIQUE: KIDNEY AND BLADDER COMPARISON: Prior CT scan dated March 26, 2025. FINDINGS: Kidneys: Normal renal sizes, parenchymal thicknesses, and echotextures. [place]: No evidence of hydronephrosis. Cysts or Masses: No cysts or large solid renal masses. RIGHT Kidney Size: 13.3 cm x 6.3 cm x 6.6 Volume: 269.56 mL Cortical Thickness (if discernible): 14 mm (>6mm is normal) LEFT Kidney Size: 11.5 cm x 6.4 cm x 6 cm Volume: 229 mL Cortical Thickness (if discernible): 15 mm (>6mm is normal) A Vicente catheter is seen within the empty urinary bladder. US/Kidney and Bladder IMPRESSION: Hypertrophy of the right kidney. No evidence of obstruction. Reading Location: [place] [id number]
--- NOTE | 2025-03-26 10:00 | SEPSISATNOTE ---
Sepsis Attestation Sepsis Alert: Yes Sepsis Attestation: Agree w/Sepsis Date exam was performed: 03/26/25 Time exam was performed: 07:25 Possible Source of Sepsis: Other Sepsis Organ Dysfunction Criteria Present: SBP < 90 mmHg or MAP < 65 mmHg, SBP decrease of more than 40 mmHg, Acute Respiratory Failure (New need for BiPAP/CPAP or MV), Creatinine > 2.0 mg/dL, UOP < 0.5 mL/kg/hour for 2 consecutive hours, Total Bilirubin > 2 mg/dl, Lactic Acid > 2 mmol/L and Serum CO2 < 20 mmol/L (on BMP) Fluid Resuscitation Fluid resuscitation indicated?: Yes Fluid Resuscitation ordered: 30 ml/kg fluid bolus ordered Amount of fluid ordered: 2,860 Sepsis Note Date exam was performed: 03/26/25 Time exam was performed: 10:30 Sepsis Attestation: Sepsis re-evaluation was performed Response to fluids: Non Fluid responsive hypotension and Vasopressors started
[2025-03-26] MEDS: Lactated Ringers 1,000 ML 999 ML IV (10:11)
[2025-03-26 10:46] LABS: CPK Total, Creatine Kinase 268 U/L (24-195)
[2025-03-26 11:20] LABS: Creatinine, Urine (random) 206.00 mg/dL (39.00-259.00)
[2025-03-26 11:21] LABS: Protein, Urine (Random) 117.0 mg/dL (0.0-12.0); Protein:Creat Ratio 568 mg/g CRE (0-200)
[2025-03-26 11:48] LABS: Osmolality, Urine 346 mOsm/KG
[2025-03-26] MEDS: CHLORHEXIDINE GLUC 2% CLOTH 1 EACH TOWELETTE TOPICAL (12:37)
[2025-03-26 12:38] LABS: Reflex Lactate? Y
--- NOTE | 2025-03-26 13:11 | CASEMGMT ---
MARCUS CM to pt room at this time for initial assessment. Pt is currently getting a PICC placed. MARCUS LEE to follow.
[2025-03-26] MEDS: Vancomycin HCl 1,500 MG in 0.9% Normal Saline (500mL Bag) 500 ML 250 MG IV (13:54)
--- NOTE | 2025-03-26 15:58 | CON.PCM.ID_ITS ---
Assessment & Plan Assessment/Plan (1) Shock: PLAN: Unclear cause with high fever, ELISE, diffuse myalgias, confusion at home. Bcx neg so far. CT chest/abd/pelvis with no sign infection. Will check Lyme disease, [place], and TSH. Narrow abx to vanc/ceftriaxone. Will follow, thank you, d/w Dr. Ngo (2) ELISE (acute kidney injury): (3) S/P AVR (aortic valve replacement) and aortoplasty: HPI Consult Data Date of Consult: 03/26/25 HPI Narrative Reason for Consultation: fever HPI Narrative: MARTIN ELLSWORTH, is a 69 M with h/o valve replacement, presented overnight with 2 days progressive diffuse body aches, fatigue then confusion. Taken to ED, had ELISE and elevated lactate. Started on abx, developed fever up to 105.3 with shakes/chills/sweats. Was intubated and put on pressors. Now off vent, off pressor, on vanc/zosyn, feeling better. Family at bedside provided additional history. Full ROS performed and neg except as noted above. No rash, no abd pain, no n/v/d, no cough or sputum. Exposure history: no sick contacts, no recent travel, no new medicines, no recent procedures. 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 No known bug bites, did not see any ticks, but there are mosquitoes around the stream in the field. [facility] Medical History Aortic stenosis Cardiomyopathy Abnormal echocardiogram findings without diagnosis Nonrheumatic aortic (valve) stenosis (~09/20/21) Pure hypercholesterolemia Essential hypertension Aortic root dilatation Chest pain Family history of CVA Family history of hypertension Abnormal electrocardiogram Angina pectoris Undiagnosed cardiac murmurs Bicuspid aortic valve Other long-term (current) drug therapy Home Medications ?Medication ?Instructions ?Recorded ?Last Taken ?Type aspirin 81 mg chewable tablet 81 mg PO DAILY@0800 07/1006/10/23 History atorvastatin 20 mg tablet 20 mg PO QHS #90 tabs 07/30/22 Rx nitroglycerin 0.4 mg sublingual 0.4 mg sublingual Q5M PRN chest 10/03/20 Unknown Rx tablet (Nitrostat) pain #90 tabs omeprazole 40 mg capsule,delayed 40 mg PO DAILY PRN he art burn 10/04/21 Unknown History release empagliflozin 10 mg tablet 10 mg PO DAILY 11/04/23 Unk nown History (Jardiance) multivitamin (Daily Multi-Vitamin 1 tab PO DAILY 11/04 Unknown History tablet) telmisartan 20 mg tablet 20 mg PO DAILY 05/04/24 Unkn own History amoxicillin 500 mg tablet See Rx Instructions PO .COMP ZULEIKA #8 08/04/24 Unknown Rx tabs metoprolol tartrate 100 mg tablet 100 mg PO BID #60 ta bs 12/24/24 Unknown Rx Allergy/AdvReac Type Severity Reaction Status Date / Time No Known Allergies Allergy Verified 03/25/25 21:49 Family History Father CVA (cerebral vascular accident) Hypertension Skin cancer Mother Hypertension Breast cancer Skin cancer Brother Hypertension Sister Hypertension Other Family history of CVA Family history of hypertension Surgical History S/P ascending aortic aneurysm repair S/P AVR (aortic valve replacement) and aortoplasty History of surgical biopsy (~07/2022) History of tonsillectomy and adenoidectomy History of bursectomy History of shoulder surgery History of cataract surgery Social History household members: spouse current occupational status: retired 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, 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 current occupational exposures/hazards: Yes (crop mendez) Smoking Status: Never smoker Smokeless tobacco user: chewing tobacco second hand exposure: Yes alcohol intake: never substance use type: does not use caffeine: Yes Type: coffee Number of servings: 1 and tea Number of servings: 2 Physical Exam Const alert, oriented x3 and no apparent distress General Appearance: cooperative HEENT normocephalic and head/scalp atraumatic Eyes PERRL and EOMs intact bilaterally Neck supple and No nodes Resp normal air movement and clear to auscultation bilaterally Cardio regular rate and regular rhythm Heart Sounds: Negative for murmur GI soft to palpation, non-tender and non-distended Extremity General Extremity: Negative for edema Skin no rashes or lesions noted Neuro CN's II-XII intact bilaterally Lab / Micro Data Attestation: I reviewed the patient's lab results. 03/26/25 04:05 03/26/25 05:28 Labs: Laboratory Results - last 24 hr 03/25/25 22:00: WBC 13.3 H, RBC 5.18, Hgb 16.2, Hct 46.4, MCV 89.6, MCH 31.3, MCHC 34.9, RDW Std Deviation 42.0, RDW Coeff of Feli 12.8, Plt Count 130 L, MPV 10.4, Immature Gran % (Auto) 0.400, Neut % (Auto) 89.1 H, Lymph % (Auto) 4.7 L, [place] % (Auto) 4.9, Eos % (Auto) 0.4, Baso % (Auto) 0.5, Absolute Neuts (auto) 11.9 H, Absolute Lymphs (auto) 0.63 L, Nucleated RBC % 0, Sodium 136, Potassium 4.2, Chloride 100, Carbon Dioxide 17.9 L, Anion Gap 18 H, BUN 21 H, Creatinine 1.56 H, Est GFR (MDRD) Non-Af 48 L, BUN/Creatinine Ratio 13.3, Glucose 148 H, Calcium 9.3, Magnesium 1.8, Total Bilirubin 1.78 H, Direct Bilirubin 0.74 H, AST 27, ALT 38, Alkaline Phosphatase 75, Total Creatine Kinase 116, Troponin T High Sens 51 H, Total Protein 7.2, Albumin 4.3, Globulin 2.9, Lipase 23, P rocalcitonin 1.47 H, TSH 2.140 03/25/25 22:09: POC Glucose 151 H 03/26/25 00:03: Lactic Acid 3.5 H* 03/26/25 00:08: Magnesium 1.8, Troponin T Hi Sens 2 Hr 58 H*, Urine Color Yellow, Urine Clarity Clear, Urine pH 5.0, Ur Specific [place] 1.020, Urine Protein 30 H, Urine Glucose (UA) 1000 H, Urine Ketones Negative, Urine Occult Blood Negative, Urine Nitrite Negative, Urine Bilirubin Negative, Urine Urobilinogen Normal, Ur Leukocyte Esterase Negative, Urine RBC 0 SEEN, Urine WBC 0 SEEN, Ur Squamous Epith Cells 0 SEEN, Urine Bacteria 1+, Urine Mucus 0 SEEN, Urine Opiates Screen NEGATIVE, U Buprenorphine Qual NEGATIVE, Ur Oxycodone Screen NEGATIVE, Urine Methadone Screen NEGATIVE, Urine Fentanyl Screen NEGATIVE, Ur Barbiturates Screen NEGATIVE, Ur Phencyclidine Scrn NEGATIVE, Ur Amphetamines Screen NEGATIVE, U Benzodiazepines Scrn NEGATIVE, Urine Cocaine Screen NEGATIVE, U Cannabinoids Screen NEGATIVE 03/26/25 02:28: Troponin T Hi Sens 4Hr 52 H 03/26/25 04:05: WBC 9.7, RBC 4.75, Hgb 15.0, Hct 44.1, MCV 92.8, MCH 31.6, MCHC 34.0, RDW Std Deviation 45.0 H, RDW Coeff of Feli 13.2, Plt Count 134 L, MPV 11.1, Immature Gran % (Auto) 0.200, Neut % (Auto) 88.0 H, Lymph % (Auto) 10.0 L, [place] % (Auto) 1.3, Eos % (Auto) 0.0, Baso % (Auto) 0.5, Absolute Neuts (auto) 8.6 H, Absolute Lymphs (auto) 0.97, Nucleated RBC % 0, Differential Comment SCANNED, D-Dimer Quant (PE/DVT) 5.35 H*, Sodium Cancelled, Potassium Cancelled, Chloride Cancelled, Carbon Dioxide Cancelled, Anion Gap Cancelled, BUN Cancelled, Creatinine Cancelled, Estim Creat Clear Calc Cancelled, Est GFR (MDRD) Non-Af Cancelled, BUN/Creatinine Ratio Cancelled, Glucose Cancelled, H emoglobin A1c 6.2 H, Lactic Acid 5.1 H*, Calcium Cancelled, Phosphorus Cancelled, Total Bilirubin Cancelled, AST Cancelled, ALT Cancelled, Alkaline Phosphatase Cancelled, Total Protein Cancelled, Albumin Cancelled, Globulin Cancelled, Albumin/Globulin Ratio Cancelled, Triglycerides Cancelled, Cholesterol Cancelled, LDL Cholesterol, Calc Cancelled, VLDL Cholesterol Cancelled, HDL Cholesterol Cancelled, Cholesterol/HDL Ratio Cancelled 03/26/25 04:27: POC Glucose 133 H 03/26/25 05:28: Sodium 136, Potassium 3.9, Chloride 106, Carbon Dioxide 15.2 L, Anion Gap 15, BUN 28 H, Creatinine 2.17 H, Estim Creat Clear Calc 42.74 L, Est GFR (MDRD) Non-Af 32 L, BUN/Creatinine Ratio 12.9, Glucose 140 H, Calcium 7.9, P hosphorus 1.0 L*, Total Bilirubin 2.05 H, AST 30, ALT 29, Alkaline Phosphatase 59, Total Creatine Kinase 214 H, Total Protein 5.8 L, Albumin 3.5, Globulin 2.3, Albumin/Globulin Ratio 1.5, Triglycerides 84 03/26/25 05:28: Triglycerides 85, Cholesterol 89, LDL Cholesterol, Calc 41, VLDL Cholesterol 17, HDL Cholesterol 31 L, Cholesterol/HDL Ratio 2.88 03/26/25 06:36: POC Glucose 133 H 03/26/25 08:00: Total Creatine Kinase 268 H, Troponin T High Sens 121 H* D, Rheumatoid Factor < 10.0 03/26/25 08:30: Lactic Acid 3.9 H*, BREANA-1 Antibody TNP, Sm (Mann) Antibody TNP, PIN PULLER Antibody TNP, Scl-70 Scleroderma Ab TNP, Antichromatin Antibodies TNP, Centromere B Antibody TNP 03/26/25 10:30: Urine Osmolality 346, U Random Total Protein 117.0 H, Ur Random Sodium < 20, Urine Creatinine 206.00, Protein/Creatinin Ratio 568 H, Urine Potassium 56.1, Urine Chloride < 20 Micro: Microbiology 03/26/25 01:19 Mucosa - Nasopharyngeal Respiratory Panel (PCR) - Final 03/26/25 05:30 Sputum, Induced/Lukens Gram Stain - Final 03/26/25 10:30 Urine Catheter - Vicente Legionella Antigen - Final 03/26/25 10:30 Urine Catheter - Catheter Streptococcus pneumoniae Antigen (M - Final 03/26/25 08:30 Nasal Secretion MRSA (PCR) - Final 03/26/25 08:36 Mucosa - Nasopharyngeal SARS-CoV-2, Influenza & RSV (PCR) - Final 03/25/25 23:14 Mucosa - Nose SARS-CoV-2, Influenza & RSV (PCR) - Final ABG Data ABG results: ABG 03/26/25 03/26/25 03/26/25 01:08 04:14 08:08 Specimen Type FRANCI ART ART Sample Site Not entered L Radial R Radial pH 7.46 H 7.47 H Bicarbonate Actual 17.8 L 20.9 L Total CO2 19 22 Base Excess -6 L -3 L O2 Saturation 93 L 92 L O2 % 21.0 ABG pCO2 25.3 L 28.8 L ABG pO2 61 L 59 L Noe Test Positive Positive VBG pH 7.38 VBG pO2 14 L* VBG HCO3 28 H VBG Total CO2 30 VBG O2 Sat (Calc) 17 L VBG Base Excess 3 POC Mix VBG pCO2 Pt Tmp 47.5 O2 Delivery Device Room Air Room Air Adult Vent Vent Mode Not entered AC Tidal Volume 500.0 POC PEEP 5 Crit Call To/Read Back Yes Blood Gas Notified Whom Andes Blood Gas Notified Time 01:09:53 Imaging Radiology Impression Chest X-Ray 03/25/25 22:45 IMPRESSION: Cardiomegaly. No acute pulmonary disease. Reading Location: [id number] Chest/Abdomen/Pelvis CTA 03/26/25 00:00 IMPRESSION: Status post AVR. Status post ascending aortic repair with graft. No thoracic aortic aneurysm or dissection. No acute chest, abdomen, or pelvic pathology. Reading Location: [facility] 03/26/25 01:08 IMPRESSION: No acute intracranial findings. Reading Location: [facility] 03/26/25 01:08 IMPRESSION: No acute findings. Reading Location: [facility]2 Echocardiogram 03/26/25 02:43 Interpretation Summary Small LV cavity. Severe left ventricular concentric hypertrophy. Estimated LVEF 70%. Stage I diastolic dysfunction. Bioprosthetic aortic valve appears to function normally. Mean peak gradient 16 mmHg. The study was technically difficult. Ordering Physician: Anthony Alberto Referring Physician: ABDIEL MATHEWS Performed By: Chanelle St RDCS Chest X-Ray 03/26/25 05:20 IMPRESSION: No acute chest findings. Reading Location: [facility] Renal Ultrasound 03/26/25 09:50 IMPRESSION: Hypertrophy of the right kidney. No evidence of obstruction. Reading Location: [facility]
--- NOTE | 2025-03-26 16:12 | PN.HOSP_ITS ---
Reason for Visit Chief Complaint: Rigors, Chills and Fatigue. Objective Data Objective Data Vital Signs: Vital Signs Temp Pulse Resp BP Pulse Ox O2 Del Method O2 Flow Rate 101.9 F H 101 H 21 H 83/55 L 98 Mechanical Ventilator 2 03/26/25 07:00 03/26/25 07:00 03/26/25 07:00 03/26/25 07:00 03/26/25 07:00 03/26/25 07:00 03/26/25 04:46 FiO2 50 03/26/25 07:00 Oxygen Flow Rate (L/min) 2 Oxygen Delivery Method Mechanical Ventilator Weight: 210 lb 1.608 oz Body Mass Index (BMI) 27.7 Intake & Output: Intake and Output for Last 24 Hours 03/24/25 03/25/25 03/26/25 23:59 23:59 23:59 Intake Total 3363.72 / 3363.72 Output Total 150 / 150 Balance 3213.72 / 3213.72 Lab / Micro Data 03/26/25 04:05 03/26/25 05:28 Labs: Laboratory Results - last 24 hr 03/25/25 22:00: WBC 13.3 H, RBC 5.18, Hgb 16.2, Hct 46.4, MCV 89.6, MCH 31.3, MCHC 34.9, RDW Std Deviation 42.0, RDW Coeff of Feli 12.8, Plt Count 130 L, MPV 10.4, Immature Gran % (Auto) 0.400, Neut % (Auto) 89.1 H, Lymph % (Auto) 4.7 L, [place] % (Auto) 4.9, Eos % (Auto) 0.4, Baso % (Auto) 0.5, Absolute Neuts (auto) 11.9 H, Absolute Lymphs (auto) 0.63 L, Nucleated RBC % 0, Sodium 136, Potassium 4.2, Chloride 100, Carbon Dioxide 17.9 L, Anion Gap 18 H, BUN 21 H, Creatinine 1.56 H, Est GFR (MDRD) Non-Af 48 L, BUN/Creatinine Ratio 13.3, Glucose 148 H, Calcium 9.3, Magnesium 1.8, Total Bilirubin 1.78 H, Direct Bilirubin 0.74 H, AST 27, ALT 38, Alkaline Phosphatase 75, Total Creatine Kinase 116, Troponin T High Sens 51 H, Total Protein 7.2, Albumin 4.3, Globulin 2.9, Lipase 23, Procalcitonin 1.47 H, TSH 2.140 03/25/25 22:09: POC Glucose 151 H 03/26/25 00:03: Lactic Acid 3.5 H* 03/26/25 00:08: Magnesium 1.8, Troponin T Hi Sens 2 Hr 58 H*, Urine Color Yellow, Urine Clarity Clear, Urine pH 5.0, Ur Specific [place] 1.020, Urine Protein 30 H, Urine Glucose (UA) 1000 H, Urine Ketones Negative, Urine Occult Blood Negative, Urine Nitrite Negative, Urine Bilirubin Negative, Urine Urobilinogen Normal, Ur Leukocyte Esterase Negative, Urine RBC 0 SEEN, Urine WBC 0 SEEN, Ur Squamous Epith Cells 0 SEEN, Urine Bacteria 1+, Urine Mucus 0 SEEN, Urine Opiates Screen NEGATIVE, U Buprenorphine Qual NEGATIVE, Ur Oxycodone Screen NEGATIVE, Urine Methadone Screen NEGATIVE, Urine Fentanyl Screen NEGATIVE, Ur Barbiturates Screen NEGATIVE, Ur Phencyclidine Scrn NEGATIVE, Ur Amphetamines Screen NEGATIVE, U Benzodiazepines Scrn NEGATIVE, Urine Cocaine Screen NEGATIVE, U Cannabinoids Screen NEGATIVE 03/26/25 02:28: Troponin T Hi Sens 4Hr 52 H 03/26/25 04:05: WBC 9.7, RBC 4.75, Hgb 15.0, Hct 44.1, MCV 92.8, MCH 31.6, MCHC 34.0, RDW Std Deviation 45.0 H, RDW Coeff of Feli 13.2, Plt Count 134 L, MPV 11.1, Immature Gran % (Auto) 0.200, Neut % (Auto) 88.0 H, Lymph % (Auto) 10.0 L, [place] % (Auto) 1.3, Eos % (Auto) 0.0, Baso % (Auto) 0.5, Absolute Neuts (auto) 8.6 H, Absolute Lymphs (auto) 0.97, Nucleated RBC % 0, Differential Comment SCANNED, D-Dimer Quant (PE/DVT) 5.35 H*, Hemoglobin A1c 6.2 H, Lactic Acid 5.1 H*, 03/26/25 04:27: POC Glucose 133 H 03/26/25 05:28: Sodium 136, Potassium 3.9, Chloride 106, Carbon Dioxide 15.2 L, Anion Gap 15, BUN 28 H, Creatinine 2.17 H, Estim Creat Clear Calc 42.74 L, Est GFR (MDRD) Non-Af 32 L, BUN/Creatinine Ratio 12.9, Glucose 140 H, Calcium 7.9, P hosphorus 1.0 L*, Total Bilirubin 2.05 H, AST 30, ALT 29, Alkaline Phosphatase 59, Total Creatine Kinase 214 H, Total Protein 5.8 L, Albumin 3.5, Globulin 2.3, Albumin/Globulin Ratio 1.5, Triglycerides 84 03/26/25 05:28: Triglycerides 85, Cholesterol 89, LDL Cholesterol, Calc 41, VLDL Cholesterol 17, HDL Cholesterol 31 L, Cholesterol/HDL Ratio 2.88 03/26/25 06:36: POC Glucose 133 H Micro: Microbiology 03/25/25 23:14 Mucosa - Nose SARS-CoV-2, Influenza & RSV (PCR) - Final ABG Data ABG results: ABG 03/26/25 03/26/25 01:08 04:14 Specimen Type FRANCI ART Sample Site Not entered L Radial pH 7.46 H Bicarbonate Actual 17.8 L Total CO2 19 Base Excess -6 L O2 Saturation 93 L ABG pCO2 25.3 L ABG pO2 61 L Noe Test Positive VBG pH 7.38 VBG pO2 14 L* VBG HCO3 28 H VBG Total CO2 30 VBG O2 Sat (Calc) 17 L VBG Base Excess 3 POC Mix VBG pCO2 Pt Tmp 47.5 O2 Delivery Device Room Air Room Air Vent Mode Not entered Crit Call To/Read Back Yes Blood Gas Notified Whom Andes Blood Gas Notified Time 01:09:53 Radiography Diagnostic Testing: Radiology Impression Chest X-Ray 03/25/25 22:45 IMPRESSION: Cardiomegaly. No acute pulmonary disease. Reading Location: [id number] Chest/Abdomen/Pelvis CTA 03/26/25 00:00 IMPRESSION: Status post AVR. Status post ascending aortic repair with graft. No thoracic aortic aneurysm or dissection. No acute chest, abdomen, or pelvic pathology. Reading Location: [place] [id number] 03/26/25 01:08 IMPRESSION: No acute intracranial findings. Reading Location: [facility] 03/26/25 01:08 IMPRESSION: No acute findings. Reading Location: [facility] Chest X-Ray 03/26/25 05:20 IMPRESSION: No acute chest findings. Reading Location: [facility] Physical Exam Narrative Seen and examined. Discussed with the staff nurse icu resource team. Has Vicente catheter Patient is intubated on ventilator. Direct history from the patient unobtainable Physical exam General: Awake, intubated on light sedation HEENT: Atraumatic, PERRLA, EOMI, Normocephalic. Oral: ETT and OGT Neck: Supple, No JVD, Negative Carotid Bruits Chest wall/Lungs: Air entry diminished in bilateral lung bases. No crepitation/rhonchi Cardiovascular: Sinus rhythm, systolic murmur LLSB, right second ICS Abdomen: Bowel Sounds sluggish, Soft, Non Tender, slightly distended : Vicente catheter No renal angle tenderness. No suprapubic tenderness. Extremities: No edema, Capillary Refill Less than 3 Seconds Skin: No rashes, No breakdown Musculoskeletal: No Tenderness to Palpation of Joints or Extremities Neurological: DTR 2/4, sensory and motor exam and cranial nerves could not be examined Psych/Mental Status: Flat affect Assessment & Plan Assessment/Plan (1) Shock: (2) ELISE (acute kidney injury): (3) Thrombocytopenia: (4) Hyperbilirubinemia: PLAN: Plan 69-year-old gentleman came to ED when he felt muscle cramps, dizziness, restlessness, generalized weakness and fatigue and diaphoresis when he went to bed. He had sleepless night and then came to ED. Denies any other focal symptoms including nausea, vomiting, chest pain pressure or diarrhea fever or other URI symptoms. In the ICU, patient oral temperature 105F and then intravesical core temperature 101 Fahrenheit. Patient was also in respiratory distress and then ABG was done and intubated. In ED, vitals were within normal limit but deteriorated while the patient came to ICU. 1. Fever, most likely due to septic shock/undifferentiated shock:, Focus on the patient is being admitted in ICU. Patient has nonfocal symptoms but high fever, mild tachypnea, leukocytosis, hypotension, The patient presented with sepsis with clinical indicators of high grade fever, tachypnea, leukocytosis, 13.3 K due to unclear focus/unknown with acute sepsis-related organ dysfunction as evidenced by fluid bolus resistant hypotensive, lactic acidosis, ELISE, creatinine more than 2, hyperbilirubinemia, urine output less than 50 mL/h for 2-hour and high anion gap metabolic acidosis. Patient also has high procalcitonin. D- dimer was elevated probably due to sepsis. Bilateral PE ruled out. ID consulted. Continue broad-spectrum antibiotic. Patient is on IV Levophed Patient had CT brain, CT soft tissue neck, CT chest, abdomen and pelvis which did not show acute abnormality. Panculture ordered. ID consult reviewed. Blood culture negative so far. We ordered Lyme disease West Nile and TSH. Antibiotic narrowed down to vancomycin and ceftriaxone. 2. ELISE: Patient has Vicente catheter and does not have any urine in the tubing or bag. Baseline creatinine around 1.14, increased to 2.17. 03/26 discussed with the front office coordinator. Urine output 250 mL since midnight therefore oliguria. Nonoliguric ELISE. 3. Elevated troponin: First troponin is 58 with known history of ascending aortic aneurysm/aortic root dilatation, aortic stenosis with bicuspid valve status post aortic root aneurysm repair, AVR: Last cardiology visit with Dr. Jimenez reviewed. Patient also has intracavitary gradient of 35 mmHg in LV with severe asymmetric cardiomyopathy, mean gradient 12, mean gradient 24 mmHg. Last echo shows EF 65% in March 2024. 2D echo ordered to look for any vegetation/source of infection The patient on beta-shara, recently increased to metoprolol 100 mg twice daily, currently on hold. Cycle troponin just Repeat echo 03/26 shows EF 70%, stage I diastolic dysfunction. Small LV cavity, bioprosthetic AV valve appearing function normally. Mean peak gradient 16 mmHg. Severe LV concentric hypertrophy. Stage I diastolic dysfunction. 4. Hypophosphatemia of 1 mg/dL present on admission: Patient had 45 mmol Potassium Phosphate IV Obesity grade 2: BMI 34 this admission. 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 Other comorbidities include hypertension, dyslipidemia, GERD and osteoarthritis: Home medication reconciliation done. Hold antihypertensive medications. IV PPI. CPK 214. Mildly elevated DVT prophylaxis - Enoxaparin 40 mg sq daily plus SCD's. Stop LMWH if platelet count drops ~100K. Charges/Coding Visit Charges Inpatient E&M: 35820 Subs Hosp L3
[2025-03-26] MEDS: Ceftriaxone 2 GM in 0.9% Normal Saline (50mL MB+) 50 ML IV (16:16)
[2025-03-26] MEDS: Lactobacillis Acidophilus 1 CAP PO ×2 (16:43→21:05)
--- NOTE | 2025-03-26 17:00 | CASEMGMT ---
?RN?CM?ASSESSMENT ? RN?CM?to room to meet with patient for initial transition planning/care coordination?assessment.?RN?CM?introduced self and role at [facility].? Pt voices understanding and consents to?assessment?at this time.? Pt sitting up in chair in no distress at this time.? , dtr, and 2 other family members in room w/pt & pt agreeable to them being present during assessment. Pt is A/O at this time and answers all questions appropriately.?? Care providers, pharmacy, and demographics verified/updated at this time. ? Strata: 1 PCP: CHRIS Parker Specialists: [facility]/cardiology, [facility]- engraver letter, Dr Rosario Preferred Pharmacy: [facility] Insurance: [employer] Prescription Benefit:?yes LNOK: , Alexia. 2 adult children Living Arrangements: Lives w/ in 2-story home w/no steps to enter. [employer]. 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 Transportation:?Pt states drives self and states no transportation concerns at this time.? DME: ?Has the following DME available, but does not use: standard walker, canes, shower chair. ? states no need for further DME at this time.? HHC/SNF: No hx of either. Has done OP Cardiac rehab in the past in [place] in 2023. ? Pt wishes to return home and states has no concerns with going home at time of discharge. He does not feel he will need any therapy @ dc. CM?to follow for any discharge planning/needs.? Pt and family voice no further concerns/needs at this time.? Advised them to ask for?CM?if any further questions/concerns/needs arise.? Voices understanding. ? PLAN:??Home PT eval pending. Follow for any recommendations. ? Celso BSN?RN?CM ?
--- NOTE | 2025-03-26 18:34 | PCM.CONS.R ---
Assessment & Plan Assessment/Plan (1) ELISE (acute kidney injury): PLAN: normal baseline. 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 being repleted thrombocytopenia. ? related to sepsis HPI Consult Data Date of Consult: 03/26/25 HPI Narrative Reason for Consultation: ELISE HPI Narrative: MARTIN ELLSWORTH, is a 69 M who presents to hospital with fever, sepsis. renal consulted for ELISE. normal baseline. high grade fevers, ? source. lactic acidosis being resuscitated. was intubated overnight now extubated. urine output was none somewhat better this am. 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 Home Medications ?Medication ?Instructions ?Recorded ?Last Taken ?Type aspirin 81 mg chewable tablet 81 mg PO DAILY@0800 07/23/14 06/10/23 History atorvastatin 20 mg tablet 20 mg PO QHS #90 tabs 09/30/20 07/30/22 Rx nitroglycerin 0.4 mg sublingual 0.4 mg sublingual Q5M PRN chest 10/03/20 Unknown Rx tablet (Nitrostat) pain #90 tabs omeprazole 40 mg capsule,delayed 40 mg PO DAILY PRN heart burn 10/04/21 Unknown History release empagliflozin 10 mg tablet 10 mg PO DAILY 11/04/23 Unknown History (Jardiance) multivitamin (Daily Multi-Vitamin 1 tab PO DAILY 11/04/23 Unknown History tablet) telmisartan 20 mg tablet 20 mg PO DAILY 05/04/24 Unknown History amoxicillin 500 mg tablet See Rx Instructions PO .COMPLEX #8 08/04/24 Unknown Rx tabs metoprolol tartrate 100 mg tablet 100 mg PO BID #60 tabs 12/24/24 Unknown Rx Allergy/AdvReac Type Severity Reaction Status Date / Time No Known Allergies Allergy Verified 03/25/25 21:49 Family History Father CVA (cerebral vascular accident) Hypertension Skin cancer Mother Hypertension Breast cancer Skin cancer Brother Hypertension Sister Hypertension Other Family history of CVA Family history of hypertension Surgical History S/P ascending aortic aneurysm repair S/P AVR (aortic valve replacement) and aortoplasty History of surgical biopsy (~07/2022) History of tonsillectomy and adenoidectomy History of bursectomy History of shoulder surgery History of cataract surgery Social History household members: spouse current occupational status: retired 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, 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 current occupational exposures/hazards: Yes (crop mendez) Smoking Status: Never smoker Smokeless tobacco user: chewing tobacco second hand exposure: Yes alcohol intake: never substance use type: does not use caffeine: Yes Type: coffee Number of servings: 1 and tea Number of servings: 2 ROS ROS Narrative negative except above Physical Exam Narrative Alert awake oriented x 3 no obvious distress no pallor no icterus no JVD s1s2 no murmurs lungs clear abdomen soft no organomegaly no edema Lab / Micro Data 03/26/25 04:05 03/26/25 05:28 Labs: Laboratory Results - last 24 hr 03/25/25 22:00: WBC 13.3 H, RBC 5.18, Hgb 16.2, Hct 46.4, MCV 89.6, MCH 31.3, MCHC 34.9, RDW Std Deviation 42.0, RDW Coeff of Feli 12.8, Plt Count 130 L, MPV 10.4, Immature Gran % (Auto) 0.400, Neut % (Auto) 89.1 H, Lymph % (Auto) 4.7 L, Wirt % (Auto) 4.9, Eos % (Auto) 0.4, Baso % (Auto) 0.5, Absolute Neuts (auto) 11.9 H, Absolute Lymphs (auto) 0.63 L, Nucleated RBC % 0, Sodium 136, Potassium 4.2, Chloride 100, Carbon Dioxide 17.9 L, Anion Gap 18 H, BUN 21 H, Creatinine 1.56 H, Est GFR (MDRD) Non-Af 48 L, BUN/Creatinine Ratio 13.3, Glucose 148 H, Calcium 9.3, Magnesium 1.8, Total Bilirubin 1.78 H, Direct Bilirubin 0.74 H, AST 27, ALT 38, Alkaline Phosphatase 75, Total Creatine Kinase 116, Troponin T High Sens 51 H, Total Protein 7.2, Albumin 4.3, Globulin 2.9, Lipase 23, Procalcitonin 1.47 H, TSH 2.140 03/25/25 22:09: POC Glucose 151 H 03/26/25 00:03: Lactic Acid 3.5 H* 03/26/25 00:08: Magnesium 1.8, Troponin T Hi Sens 2 Hr 58 H*, Urine Color Yellow, Urine Clarity Clear, Urine pH 5.0, Ur Specific [place] 1.020, Urine Protein 30 H, Urine Glucose (UA) 1000 H, Urine Ketones Negative, Urine Occult Blood Negative, Urine Nitrite Negative, Urine Bilirubin Negative, Urine Urobilinogen Normal, Ur Leukocyte Esterase Negative, Urine RBC 0 SEEN, Urine WBC 0 SEEN, Ur Squamous Epith Cells 0 SEEN, Urine Bacteria 1+, Urine Mucus 0 SEEN, Urine Opiates Screen NEGATIVE, U Buprenorphine Qual NEGATIVE, Ur Oxycodone Screen NEGATIVE, Urine Methadone Screen NEGATIVE, Urine Fentanyl Screen NEGATIVE, Ur Barbiturates Screen NEGATIVE, Ur Phencyclidine Scrn NEGATIVE, Ur Amphetamines Screen NEGATIVE, U Benzodiazepines Scrn NEGATIVE, Urine Cocaine Screen NEGATIVE, U Cannabinoids Screen NEGATIVE 03/26/25 02:28: Troponin T Hi Sens 4Hr 52 H 03/26/25 04:05: WBC 9.7, RBC 4.75, Hgb 15.0, Hct 44.1, MCV 92.8, MCH 31.6, MCHC 34.0, RDW Std Deviation 45.0 H, RDW Coeff of Feli 13.2, Plt Count 134 L, MPV 11.1, Immature Gran % (Auto) 0.200, Neut % (Auto) 88.0 H, Lymph % (Auto) 10.0 L, Wirt % (Auto) 1.3, Eos % (Auto) 0.0, Baso % (Auto) 0.5, Absolute Neuts (auto) 8.6 H, Absolute Lymphs (auto) 0.97, Nucleated RBC % 0, Differential Comment SCANNED, D-Dimer Quant (PE/DVT) 5.35 H*, Sodium Cancelled, Potassium Cancelled, Chloride Cancelled, Carbon Dioxide Cancelled, Anion Gap Cancelled, BUN Cancelled, Creatinine Cancelled, Estim Creat Clear Calc Cancelled, Est GFR (MDRD) Non-Af Cancelled, BUN/Creatinine Ratio Cancelled, Glucose Cancelled, Hemoglobin A1c 6.2 H, Lactic Acid 5.1 H*, Calcium Cancelled, Phosphorus Cancelled, Total Bilirubin Cancelled, AST Cancelled, ALT Cancelled, Alkaline Phosphatase Cancelled, Total Protein Cancelled, Albumin Cancelled, Globulin Cancelled, Albumin/Globulin Ratio Cancelled, Triglycerides Cancelled, Cholesterol Cancelled, LDL Cholesterol, Calc Cancelled, VLDL Cholesterol Cancelled, HDL Cholesterol Cancelled, Cholesterol/HDL Ratio Cancelled 03/26/25 04:27: POC Glucose 133 H 03/26/25 05:28: Sodium 136, Potassium 3.9, Chloride 106, Carbon Dioxide 15.2 L, Anion Gap 15, BUN 28 H, Creatinine 2.17 H, Estim Creat Clear Calc 42.74 L, Est GFR (MDRD) Non-Af 32 L, BUN/Creatinine Ratio 12.9, Glucose 140 H, Calcium 7.9, Phosphorus 1.0 L*, Total Bilirubin 2.05 H, AST 30, ALT 29, Alkaline Phosphatase 59, Total Creatine Kinase 214 H, Total Protein 5.8 L, Albumin 3.5, Globulin 2.3, Albumin/Globulin Ratio 1.5, Triglycerides 84 03/26/25 05:28: Triglycerides 85, Cholesterol 89, LDL Cholesterol, Calc 41, VLDL Cholesterol 17, HDL Cholesterol 31 L, Cholesterol/HDL Ratio 2.88 03/26/25 06:36: POC Glucose 133 H 03/26/25 08:00: Total Creatine Kinase 268 H, Troponin T High Sens 121 H* D, TSH 3.110, Rheumatoid Factor < 10.0 03/26/25 08:30: Lactic Acid 3.9 H*, BREANA-1 Antibody TNP, Sm (Mann) Antibody TNP, DIGITAL COMMENTATOR Antibody TNP, Scl-70 Scleroderma Ab TNP, Antichromatin Antibodies TNP, Centromere B Antibody TNP 03/26/25 10:30: Urine Osmolality 346, U Random Total Protein 117.0 H, Ur Random Sodium < 20, Urine Creatinine 206.00, Protein/Creatinin Ratio 568 H, Urine Potassium 56.1, Urine Chloride < 20 03/26/25 14:40: CSF Lyme IgM Antibody Cancelled, Lyme Disease IgG Ab Cancelled, Lyme Total Antibody Cancelled, Lyme Disease Ab Note Cancelled 03/26/25 16:47: POC Glucose 134 H Micro: Microbiology 03/26/25 01:19 Mucosa - Nasopharyngeal Respiratory Panel (PCR) - Final 03/26/25 05:30 Sputum, Induced/Lukens Gram Stain - Final 03/26/25 10:30 Urine Catheter - Vicente Legionella Antigen - Final 03/26/25 10:30 Urine Catheter - Catheter Streptococcus pneumoniae Antigen (M - Final 03/26/25 08:30 Nasal Secretion MRSA (PCR) - Final 03/26/25 08:36 Mucosa - Nasopharyngeal SARS-CoV-2, Influenza & RSV (PCR) - Final 03/25/25 23:14 Mucosa - Nose SARS-CoV-2, Influenza & RSV (PCR) - Final ABG Data ABG results: ABG 03/26/25 03/26/25 03/26/25 01:08 04:14 08:08 Specimen Type FRANCI ART ART Sample Site Not entered L Radial R Radial pH 7.46 H 7.47 H Bicarbonate Actual 17.8 L 20.9 L Total CO2 19 22 Base Excess -6 L -3 L O2 Saturation 93 L 92 L O2 % 21.0 ABG pCO2 25.3 L 28.8 L ABG pO2 61 L 59 L Noe Test Positive Positive VBG pH 7.38 VBG pO2 14 L* VBG HCO3 28 H VBG Total CO2 30 VBG O2 Sat (Calc) 17 L VBG Base Excess 3 POC Mix VBG pCO2 Pt Tmp 47.5 O2 Delivery Device Room Air Room Air Adult Vent Vent Mode Not entered AC Tidal Volume 500.0 POC PEEP 5 Crit Call To/Read Back Yes Blood Gas Notified Whom Andes Blood Gas Notified Time 01:09:53 Imaging Radiology Impression Chest X-Ray 03/25/25 22:45 IMPRESSION: Cardiomegaly. No acute pulmonary disease. Reading Location: [facility] Chest/Abdomen/Pelvis CTA 03/26/25 00:00 IMPRESSION: Status post AVR. Status post ascending aortic repair with graft. No thoracic aortic aneurysm or dissection. No acute chest, abdomen, or pelvic pathology. Reading Location: [facility] 03/26/25 01:08 IMPRESSION: No acute intracranial findings. Reading Location: [facility] 03/26/25 01:08 IMPRESSION: No acute findings. Reading Location: [facility] Echocardiogram 03/26/25 02:43 Interpretation Summary Small LV cavity. Severe left ventricular concentric hypertrophy. Estimated LVEF 70%. Stage I diastolic dysfunction. Bioprosthetic aortic valve appears to function normally. Mean peak gradient 16 mmHg. The study was technically difficult. Ordering Physician: Anthony Alberto Referring Physician: ABDIEL MATHEWS Performed By: Chanelle St RDCS Chest X-Ray 03/26/25 05:20 IMPRESSION: No acute chest findings. Reading Location: [facility] Renal Ultrasound 03/26/25 09:50 IMPRESSION: Hypertrophy of the right kidney. No evidence of obstruction. Reading Location: [facility]
[2025-03-27] VITALS (16 sets, daily range): BP systolic 94–145; BP diastolic 56–88; PULSE 78–94; RESP 10–22; TEMP 36.6–37.6; O2SAT 95–100; BMI 34.6
[2025-03-27] MEDS: Vancomycin HCl 1,500 MG in 0.9% Normal Saline (500mL Bag) 500 ML 250 MG IV ×2 (01:02→14:37)
[2025-03-27] MEDS: 0.9% Saline Lock 10 ML Syringe IV ×2 (03:13→22:46)
[2025-03-27 03:23] LABS: Hematocrit 37.1 % (40-54); Hemoglobin 12.8 g/dL (13.0-16.5); Immature Granulocytes Count 0.030 X10^3/uL (0.0-0.0); Mean Corp Hgb Conc 34.5 g/dL (32-36); Mean Corpuscular Volume 91.4 fL (80-94); Mean Platelet Vol. 10.7 fl (6.2-12.0); NRBC Flagged by Analyzer 0 % (0-5); POSITIVE COUNT YES; Platelet Count 86 K/mm3 (150-450); RBC Distribution Width CV 13.5 % (11.6-14.6); RBC Distribution Width SD 45.9 fl (35.1-43.9); Red Blood Count 4.06 M/mm3 (4.6-6.2); White Blood Count 8.5 K/mm3 (4.4-11.0)
[2025-03-27 03:31] LABS: Differential Indicated SCAN CRITERIA MET
[2025-03-27 03:41] LABS: Anion Gap 11 (5-15); BUN 34 mg/dL (4-19); BUN/Creat Ratio 16.2 RATIO (10-20); Calcium,Total 7.5 mg/dL (7.6-11.0); Carbon Dioxide 19.2 mmol/L (21.0-32.0); Chloride 107 mmol/L (98-108); Estimated Creatinine Clearance 45.00 ml/min (50-250); Glucose 86 mg/dL (70-99); Potassium 4.0 mmol/L (3.3-5.1)
[2025-03-27] MEDS: Lactobacillis Acidophilus 1 CAP PO ×4 (08:19→22:45)
[2025-03-27] MEDS: CHLORHEXIDINE GLUC 2% CLOTH 1 EACH TOWELETTE TOPICAL (08:19)
[2025-03-27] MEDS: Pantoprazole Sodium 40 MG in 0.9% Normal Saline (100mL MB+) 100 ML 330 MG IV (08:21)
--- NOTE | 2025-03-27 08:41 | PCM.PN.TICU ---
Objective Data Objective Data Vital Signs: Vital Signs Last response Temperature 37.4 C H 03/27/25 07:00 Temperature Source Core 03/27/25 07:00 Pulse Rate 91 03/27/25 07:00 Pulse Strength Weak (1+) 03/26/25 19:50 Respiratory Rate 22 H 03/27/25 07:00 Respiratory Effort Normal, Non-Labored 03/27/25 03:20 Respiratory Depth Normal 03/27/25 03:20 Respiratory Pattern Normal 03/27/25 03:20 Blood Pressure 115/62 03/27/25 07:00 Blood Pressure Mean 79 03/27/25 07:00 Blood Pressure Source Monitor 03/27/25 07:00 Blood Pressure Position Semi-Fowlers 03/27/25 07:00 Blood Pressure Location Left Arm 03/27/25 07:00 Pulse Ox 95 03/27/25 07:00 Oxygen Delivery Method Room Air 03/27/25 08:39 Oxygen Flow Rate (L/min) 3 03/26/25 16:05 Fraction of Inspired Oxygen (FIO2) 21 03/27/25 01:00 I&O: I&O Last 24 Hours 03/26/25 03/26/25 03/27/25 11:59 23:59 11:59 Intake Total 3598.84 / 6992.26 3284.02 / 6992.26 939.4 / 939.4 Output Total 150 / 850 100 / 850 1150 / 1150 Balance 3448.84 / 6142.26 3184.02 / 6142.26 -210.6 / -210.6 I&O: Total Stay 03/25/25 21:44 thru 03/27/25 05:56 Intake Total 7822.26 Output Total 1400 Balance 6422.26 Current Meds Ordered / Administered: Current meds ordered / Administered Generic Name Dose Route Start Last Admin Trade Name Freq PRN Reason Stop Dose Admin Acetaminophen 650 mg 03/26/25 02:43 03/26/25 11:42 Acetaminophen 325 Mg Tablet PO 650 mg Q6H PRN PRN Administration Pain 1-5/10 or Fever Aspirin 81 mg 03/26/25 08:00 03/27/25 08:16 Aspirin 81 Mg Tab.Chew PO 81 mg DAILY@0800 ALTON Administration Chlorhexidine Gluconate 1 each 03/26/25 10:00 03/27/25 08:19 Chlorhexidine Gluc 2% Cloth 1 Each [place] TOPICAL 1 each DAILY ALTON Administration Enoxaparin Sodium 40 mg 03/26/25 10:00 03/27/25 08:19 Enoxaparin 40 Mg/0.4 Ml Syringe SC 40 mg DAILY ALTON Administration Glucagon 1 mg 03/26/25 02:43 Glucagon 1 Mg/Ml Syringe IM X1 PRN HYPOGLYCEMIA Protocol Vancomycin IV-PHARMACY TO DOSE 500 mls @ 250 mls/hr 03/26/25 02:43 1 each/ Sodium Chloride IV PRN PRN Rx to Dose Protocol Dextrose 250 mls @ 0 mls/hr 03/26/25 02:43 Dextrose 10%-Water IV .Q0M PRN HYPOGLYCEMIA Protocol As Directed Vancomycin HCl 1,500 mg/ 530 mls @ 250 mls/hr 03/26/25 13:30 03/27/25 03:19 Sodium Chloride IV Infused Q12H ALTON Infusion Norepinephrine Bitartrate 8 mg 250 mls @ 9.375 mls/hr 03/26/25 05:10 03/27/25 03:00 / Sodium Chloride CONT INF 0 mcg/min .[id number] ALTON 0 mls/hr Titration Protocol 5 MCG/MIN Sodium Chloride 250 mls @ 15 mls/hr 03/26/25 05:58 IV .[id number] PRN Saline Flush Sodium Chloride 250 mls @ 15 mls/hr 03/26/25 05:58 IV .[id number] PRN Additional IVPB Infusion Pantoprazole Sodium 40 mg/ 100 mls @ 330 mls/hr 03/26/25 06:10 03/27/25 08:21 Sodium Chloride IV 330 mls/hr Q24 ALTON Administration Ceftriaxone Sodium 2 gm/ 50 mls @ 100 mls/hr 03/26/25 15:55 03/26/25 17:09 Sodium Chloride IV Infused Q24 ALTON Infusion Insulin Human Lispro 0 unit 03/26/25 22:00 03/27/25 08:18 Insulin Lispro 100 Unit/Ml Insuln.Pen SC Not Given ACHS ALTON Protocol Midodrine 10 mg 03/26/25 08:50 03/27/25 08:15 Midodrine Hcl 5 Mg Tablet PO 10 mg TIDCM ALTON Administration Multivitamins 1 tablet 03/26/25 08:00 03/27/25 08:17 Multivitamins,Therapeutic Tablet PO 1 tablet DAILYCM ALTON Administration Ondansetron HCl 4 mg 03/26/25 02:43 03/26/25 05:07 Ondansetron 4 Mg/2 Ml Vial IV 4 mg Q8H PRN PRN Administration NAUSEA/VOMITING Sodium Chloride 10 - 40 ml 03/26/25 05:58 03/27/25 03:13 0.9% Saline Lock 10 Ml Syringe IV 20 ml UD PRN Administration SALINE FLUSH Vancomycin Protocol 1 lab 03/27/25 12:00 Vancomycin Trough/Random Due MC 03/27/25 14:00 DAILY [facility] Lab / Micro Data 03/27/25 03:10 03/27/25 03:10 Labs: Laboratory Results - last 24 hr 03/26/25 08:00: Total Creatine Kinase 268 H, Troponin T High Sens 121 H* D, TSH 3.110, Rheumatoid Factor < 10.0 03/26/25 08:30: Lactic Acid 3.9 H* 03/26/25 10:30: Urine Osmolality 346, U Random Total Protein 117.0 H, Ur Random Sodium < 20, Urine Creatinine 206.00, Protein/Creatinin Ratio 568 H, Urine Potassium 56.1, Urine Chloride < 20 03/26/25 14:40: CSF Lyme IgM Antibody Cancelled, Lyme Disease IgG Ab Cancelled, Lyme Total Antibody Cancelled, Lyme Disease Ab Note Cancelled 03/26/25 16:47: POC Glucose 134 H 03/26/25 21:04: POC Glucose 117 H 03/27/25 03:10: WBC 8.5, RBC 4.06 L, Hgb 12.8 L, Hct 37.1 L, MCV 91.4, MCH 31.5, MCHC 34.5, RDW Std Deviation 45.9 H, RDW Coeff of Feli 13.5, Plt Count 86 L, MPV 10.7, Immature Gran % (Auto) 0.400, Neut % (Auto) 78.7 H, Lymph % (Auto) 12.0 L, [place] % (Auto) 7.5, Eos % (Auto) 0.9, Baso % (Auto) 0.5, Absolute Neuts (auto) 6.7, Absolute Lymphs (auto) 1.02, Nucleated RBC % 0, Platelet Estimate SLT DEC, Sodium 137, Potassium 4.0, Chloride 107, Carbon Dioxide 19.2 L, Anion Gap 11, BUN 34 H, Creatinine 2.09 H, Estim Creat Clear Calc 45.00 L, Est GFR (MDRD) Non-Af 34 L, BUN/Creatinine Ratio 16.2, Glucose 86, Calcium 7.5 L Micro: Microbiology 03/26/25 01:19 Mucosa - Nasopharyngeal Respiratory Panel (PCR) - Final 03/26/25 05:30 Sputum, Induced/Lukens Gram Stain - Final 03/26/25 10:30 Urine Catheter - Vicente Legionella Antigen - Final 03/26/25 10:30 Urine Catheter - Catheter Streptococcus pneumoniae Antigen (M - Final 03/26/25 08:30 Nasal Secretion MRSA (PCR) - Final 03/26/25 08:36 Mucosa - Nasopharyngeal SARS-CoV-2, Influenza & RSV (PCR) - Final Imaging Radiology Impression Echocardiogram 03/26/25 02:43 Interpretation Summary Small LV cavity. Severe left ventricular concentric hypertrophy. Estimated LVEF 70%. Stage I diastolic dysfunction. Bioprosthetic aortic valve appears to function normally. Mean peak gradient 16 mmHg. The study was technically difficult. Ordering Physician: Anthony Alberto Referring Physician: ABDIEL MATHEWS Performed By: Chanelle St, QUINTEN Renal Ultrasound 03/26/25 09:50 IMPRESSION: Hypertrophy of the right kidney. No evidence of obstruction. Reading Location: [facility] Assessment and Plan . Assessment and plan: Subjective: No acute events o/n. Pt extubated yesterday, now on RA. Feels overall improving, still with some myalgias but better. No CP, abd pain, dyspnea. Having low grade fevers still. Physical Exam: Gen - NAD, obese HEENT - MMM. Sclera anicteric Resp - CTAB. Breathing nonlabored CV - RRR. No m/g/r Abd - Soft, NT, ND Ext - No c/c/e. Skin - No rashes? Neuro - Grossly nonfocal. Alert and oriented I have reviewed the pertinent vital sign, laboratory, and imaging data. ASSESSMENT: # Acute hypoxic respiratory failure ? extubated 03/26 # Shock # Fever of unknown origin # ELISE # NSTEMI ? suspect type 2 # Aortic stenosis s/p AVR # AAA # h/o HTN # DM PLAN: -Off pressors overnight. Monitor BP. Started on midodrine -Cont empiric vanc/rocephin as per ID recs. Lyme, [place], CTD serologies pending. Otherwise workup/viral panel thus far negative -CT imaging unremarkable -Repeat lactate, trop -Follow Cr, UOP. Nephrology on board. s/p >6L intake yesterday -Monitor Plt, watch for bleeding -SSI FEN/GI: PO as tolerated Proph DVT/GI: Lovenox, protonix Downgraded to PCU status now, may be able to downgrade to floor status later today if remains stable off pressors The entirety of this encounter was done via telemedicine using both audio and video. Consent was obtained.
[2025-03-27] MEDS: Ceftriaxone 2 GM in 0.9% Normal Saline (50mL MB+) 50 ML IV (08:45)
--- NOTE | 2025-03-27 08:58 | PN.HOSP_ITS ---
Reason for Visit Chief Complaint: Rigors, Chills and Fatigue. Objective Data Objective Data Vital Signs: Vital Signs Temp Pulse Resp BP Pulse Ox O2 Del Method O2 Flow Rate 99.3 F H 91 22 H 115/62 95 Room Air 3 03/27/25 07:00 03/27/25 07:00 03/27/25 07:00 03/27/25 07:00 03/27/25 07:00 03/27/25 08:39 03/26/25 16:05 FiO2 21 03/27/25 01:00 Oxygen Flow Rate (L/min) 3 Oxygen Delivery Method Room Air Weight: 261 lb 7.492 oz Body Mass Index (BMI) 34.6 Intake & Output: Intake and Output for Last 24 Hours 03/25/25 03/26/25 03/27/25 23:59 23:59 23:59 Intake Total 6882.86 / 6992.26 939.4 / 939.4 Output Total 250 / 850 1150 / 1150 Balance 6632.86 / 6142.26 -210.6 / -210.6 Lab / Micro Data 03/27/25 03:10 03/27/25 03:10 Labs: Laboratory Results - last 24 hr 03/26/25 08:00: Total Creatine Kinase 268 H, Troponin T High Sens 121 H* D, TSH 3.110, Rheumatoid Factor < 10.0 03/26/25 08:30: Lactic Acid 3.9 H* 03/26/25 10:30: Urine Osmolality 346, U Random Total Protein 117.0 H, Ur Random Sodium < 20, Urine Creatinine 206.00, Protein/Creatinin Ratio 568 H, Urine Potassium 56.1, Urine Chloride < 20 03/26/25 14:40: CSF Lyme IgM Antibody Cancelled, Lyme Disease IgG Ab Cancelled, Lyme Total Antibody Cancelled, Lyme Disease Ab Note Cancelled 03/26/25 16:47: POC Glucose 134 H 03/26/25 21:04: POC Glucose 117 H 03/27/25 03:10: WBC 8.5, RBC 4.06 L, Hgb 12.8 L, Hct 37.1 L, MCV 91.4, MCH 31.5, MCHC 34.5, RDW Std Deviation 45.9 H, RDW Coeff of Feli 13.5, Plt Count 86 L, MPV 10.7, Immature Gran % (Auto) 0.400, Neut % (Auto) 78.7 H, Lymph % (Auto) 12.0 L, [place] % (Auto) 7.5, Eos % (Auto) 0.9, Baso % (Auto) 0.5, Absolute Neuts (auto) 6.7, Absolute Lymphs (auto) 1.02, Nucleated RBC % 0, Platelet Estimate SLT DEC, Sodium 137, Potassium 4.0, Chloride 107, Carbon Dioxide 19.2 L, Anion Gap 11, B UN 34 H, Creatinine 2.09 H, Estim Creat Clear Calc 45.00 L, Est GFR (MDRD) Non- Af 34 L, BUN/Creatinine Ratio 16.2, Glucose 86, Calcium 7.5 L Micro: Microbiology 03/26/25 01:19 Mucosa - Nasopharyngeal Respiratory Panel (PCR) - Final 03/26/25 05:30 Sputum, Induced/Lukens Gram Stain - Final 03/26/25 10:30 Urine Catheter - Vicente Legionella Antigen - Final 03/26/25 10:30 Urine Catheter - Catheter Streptococcus pneumoniae Antigen (M - Final 03/26/25 08:30 Nasal Secretion MRSA (PCR) - Final 03/26/25 08:36 Mucosa - Nasopharyngeal SARS-CoV-2, Influenza & RSV (PCR) - Final 03/25/25 23:14 Mucosa - Nose SARS-CoV-2, Influenza & RSV (PCR) - Final Radiography Diagnostic Testing: Radiology Impression Echocardiogram 03/26/25 02:43 Interpretation Summary Small LV cavity. Severe left ventricular concentric hypertrophy. Estimated LVEF 70%. Stage I diastolic dysfunction. Bioprosthetic aortic valve appears to function normally. Mean peak gradient 16 mmHg. The study was technically difficult. Ordering Physician: Anthony Alberto Referring Physician: ABDIEL MATHEWS Performed By: Chanelle St RDCS Renal Ultrasound 03/26/25 09:50 IMPRESSION: Hypertrophy of the right kidney. No evidence of obstruction. Reading Location: [facility] Physical Exam Narrative Seen and examined. Discussed with the staffing program manager. Has Vicente catheter, urine output has improved, 600 mL yesterday and then 500 mL since midnight, dark yellow color urine Patient was extubated yesterday Physical exam General: Awake, alert oriented times. Comfortable HEENT: Atraumatic, PERRLA, EOMI, Normocephalic. Oral: ETT and OGT Neck: Supple, No JVD, Negative Carotid Bruits Chest wall/Lungs: Air entry diminished in bilateral lung bases. No crepitation/rhonchi Cardiovascular: Sinus rhythm, systolic murmur LLSB, right second ICS Abdomen: Bowel Sounds present, Soft, Non Tender, slightly distended : Vicente catheter. No renal angle tenderness. No suprapubic tenderness. Extremities: No edema, Capillary Refill Less than 3 Seconds Skin: No rashes, No breakdown Musculoskeletal: No Tenderness to Palpation of Joints or Extremities Neurological: DTR 2/4, no acute focal neurological deficit Psych/Mental Status: Flat affect Assessment & Plan Assessment/Plan (1) Shock: (2) ELISE (acute kidney injury): (3) Thrombocytopenia: (4) Hyperbilirubinemia: PLAN: Plan 69-year-old gentleman came to ED when he felt muscle cramps, dizziness, restlessness, generalized weakness and fatigue and diaphoresis when he went to bed. He had sleepless night and then came to ED. Denies any other focal symptoms including nausea, vomiting, chest pain pressure or diarrhea fever or other URI symptoms. In the ICU, patient oral temperature 105F and then intravesical core temperature 101 Fahrenheit. Patient was also in respiratory distress and then ABG was done and intubated. In ED, vitals were within normal limit but deteriorated while the patient came to ICU. 1. Fever, most likely due to septic shock/undifferentiated shock:, Focus on the patient is being admitted in ICU. Patient has nonfocal symptoms but high fever, mild tachypnea, leukocytosis, hypotension, The patient presented with sepsis with clinical indicators of high grade fever, tachypnea, leukocytosis, 13.3 K due to unclear focus/unknown with acute sepsis-related organ dysfunction as evidenced by fluid bolus resistant hypotensive, lactic acidosis, ELISE, creatinine more than 2, hyperbilirubinemia, urine output less than 50 mL/h for 2-hour and high anion gap metabolic acidosis. Patient also has high procalcitonin. D- dimer was elevated probably due to sepsis. Bilateral PE ruled out. ID consulted. Continue broad-spectrum antibiotic. Patient is on IV Levophed Patient had CT brain, CT soft tissue neck, CT chest, abdomen and pelvis which did not show acute abnormality. Panculture ordered. ID consult reviewed. Blood culture negative so far. Was ordered Lyme disease West Nile and TSH. Antibiotic narrowed down to vancomycin and ceftriaxone. 03/27: Unclear whether septic shock or undifferentiated shock. So far focus of infection still not clear. Respiratory panel, urinary antigens, MRSA nasal screen all are negative. Sputum culture shows 2+ WBC, rare gram-positive rods. Continue IV empiric antibiotics. Patient off vasopressor 2. ELISE: Patient has Vicente catheter and does not have any urine in the tubing or bag. Baseline creatinine around 1.14, increased to 2.17. 03/26 discussed with the turnaround planner. Urine output 250 mL since midnight therefore oliguria. Nonoliguric ELISE. 03/27: ELISE improving . urine output has improved daughterly 1150 mL so far, 550 mL since midnight. Creatinine 2.09, BUN 34. Renal ultrasound reported right kidney hypertrophy otherwise no obstruction. 3. Elevated troponin: First troponin is 58 with known history of ascending aortic aneurysm/aortic root dilatation, aortic stenosis with bicuspid valve status post aortic root aneurysm repair, AVR: Last cardiology visit with Dr. Jimenez reviewed. Patient also has intracavitary gradient of 35 mmHg in LV with severe asymmetric cardiomyopathy, mean gradient 12, mean gradient 24 mmHg. Last echo shows EF 65% in March 2024. 2D echo ordered to look for any vegetation/source of infection The patient on beta-shara, recently increased to metoprolol 100 mg twice daily, currently on hold. Cycle troponin just Repeat echo 03/26 shows EF 70%, stage I diastolic dysfunction. Small LV cavity, bioprosthetic AV valve appearing function normally. Mean peak gradient 16 mmHg. Severe LV concentric hypertrophy. Stage I diastolic dysfunction. 03/27: Serial troponins 121, 58 and 52 serial decrease. Patient does not have chest pain or pressure. ACS ruled out. 2D echo as mentioned above 4. Hypophosphatemia of 1 mg/dL present on admission: Patient had 45 mmol Potassium Phosphate IV 03/27 repeat the electrolytes Obesity grade 2: BMI 34 this admission. 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 It is not 50% decrease. Patient not on heparin related medication DM type II: A1c 6.2% Accu-Chek before meals and at bedtime with Humalog sliding scale coverage and hypoglycemia protocol. Glucose is controlled. Other comorbidities include hypertension, dyslipidemia, GERD and osteoarthritis: Home medication reconciliation done. Hold antihypertensive medications. IV PPI. CPK 214. Mildly elevated DVT prophylaxis - Enoxaparin 40 mg sq daily plus SCD's. Stop LMWH if platelet count drops ~100K. Microbiology Past 72 Hours 03/26/25 01:19 Mucosa - Nasopharyngeal Respiratory Panel (PCR) - Final 03/26/25 05:30 Sputum, Induced/Lukens Gram Stain - Final 03/26/25 10:30 Urine Catheter - Vicente Legionella Antigen - Final 03/26/25 10:30 Urine Catheter - Catheter Streptococcus pneumoniae Antigen (M - Final 03/26/25 08:30 Nasal Secretion MRSA (PCR) - Final 03/26/25 08:36 Mucosa - Nasopharyngeal SARS-CoV-2, Influenza & RSV (PCR) - Final 03/25/25 23:14 Mucosa - Nose SARS-CoV-2, Influenza & RSV (PCR) - Final Laboratory Results 03/26/25 08:00: Total Creatine Kinase 268 H, Troponin T High Sens 121 H* D, TSH 3.110, Rheumatoid Factor < 10.0 03/26/25 08:30: Lactic Acid 3.9 H* 03/26/25 10:30: Urine Osmolality 346, U Random Total Protein 117.0 H, Ur Random Sodium < 20, Urine Creatinine 206.00, Protein/Creatinin Ratio 568 H, Urine Potassium 56.1, Urine Chloride < 20 03/26/25 14:40: CSF Lyme IgM Antibody Cancelled, Cycl Citrul Peptide IgG Pending, c-ANCA Antibody Pending, p-ANCA Antibody Pending, Lyme Disease IgG Ab Cancelled, Lyme Total Antibody Cancelled 03/26/25 14:40: Lyme Total Antibody Pending, Lyme Disease Ab Note Cancelled, West Nile Virus IgG Ab Pending, West Nile Virus IgM Ab Pending, West Nile RNA (RT-PCR) Pending, West Nile Interp Pending 03/26/25 16:47: POC Glucose 134 H 03/26/25 21:04: POC Glucose 117 H 03/27/25 03:10: WBC 8.5, RBC 4.06 L, Hgb 12.8 L, Hct 37.1 L, MCV 91.4, MCH 31.5, MCHC 34.5, RDW Std Deviation 45.9 H, RDW Coeff of Feli 13.5, Plt Count 86 L, MPV 10.7, Immature Gran % (Auto) 0.400, Neut % (Auto) 78.7 H, Lymph % (Auto) 12.0 L, [place] % (Auto) 7.5, Eos % (Auto) 0.9, Baso % (Auto) 0.5, Absolute Neuts (auto) 6.7, Absolute Lymphs (auto) 1.02, Nucleated RBC % 0, Platelet Estimate SLT DEC, Sodium 137, Potassium 4.0, Chloride 107, Carbon Dioxide 19.2 L, Anion Gap 11, B UN 34 H, Creatinine 2.09 H, Estim Creat Clear Calc 45.00 L, Est GFR (MDRD) Non- Af 34 L, BUN/Creatinine Ratio 16.2, Glucose 86, Calcium 7.5 L Clinical Impression(s) from Imaging Studies Chest X-Ray 03/25/25 22:45 IMPRESSION: Cardiomegaly. No acute pulmonary disease. Reading Location: [id number] Chest/Abdomen/Pelvis CTA 03/26/25 00:00 IMPRESSION: Status post AVR. Status post ascending aortic repair with graft. No thoracic aortic aneurysm or dissection. No acute chest, abdomen, or pelvic pathology. [facility] 03/26/25 01:08 IMPRESSION: No acute intracranial findings. Reading Location: [facility] 03/26/25 01:08 IMPRESSION: No acute findings. Reading Location: [facility] Echocardiogram 03/26/25 02:43 Interpretation Summary Small LV cavity. Severe left ventricular concentric hypertrophy. Estimated LVEF 70%. Stage I diastolic dysfunction. Bioprosthetic aortic valve appears to function normally. Mean peak gradient 16 mmHg. The study was technically difficult. Ordering Physician: Anthony Alberto Referring Physician: ABDIEL MATHEWS Performed By: Chanelle St RDCS Chest X-Ray 03/26/25 05:20 IMPRESSION: No acute chest findings. Reading Location: [facility] Renal Ultrasound 03/26/25 09:50 IMPRESSION: Hypertrophy of the right kidney. No evidence of obstruction. Charges/Coding Visit Charges Inpatient E&M: 66182 Subs Hosp L3
[2025-03-27 09:29] LABS: CPK Total, Creatine Kinase 720 U/L (24-195); Magnesium 2.0 mg/dL (1.5-2.2)
[2025-03-27 11:14] LABS: Troponin T High Sensitivity 246 ng/L (<=22)
[2025-03-27 12:48] LABS: Troponin T High Sens 2 HR 240 ng/L (<=22)
[2025-03-27] MEDS: Vancomycin Trough/Random Due 1 LAB MC (13:00)
[2025-03-27 13:45] LABS: Vancomycin, Trough Level 15.4 ug/mL (5.0-15.0)
--- NOTE | 2025-03-27 14:01 | PCM.RX.CS ---
Consult Antibiotic Management Pharmacy has been consulted to manage selected antibiotic: Vancomycin Type of Intervention Type of Consult: Follow-up Suspected Infection Suspected Infection: Sepsis Prior Doses of Antibiotics Prior Doses of Antibiotics Received/Current Regimen: Vancomycin 1500 mg Q12H last dose given 03/27/25 @ 0101 Labs Labs: Sodium 137 mmol/L (133-145) 03/27/25 03:10 Potassium 4.0 mmol/L (3.3-5.1) 03/27/25 03:10 Chloride 107 mmol/L (98-108) 03/27/25 03:10 Carbon Dioxide 19.2 mmol/L (21.0-32.0) L 03/27/25 03:10 Anion Gap 11 (5-15) 03/27/25 03:10 BUN 34 mg/dL (4-19) H 03/27/25 03:10 Creatinine 2.09 mg/dL (0.70-1.20) H 03/27/25 03:10 Est GFR (MDRD) Non-Af 34 (>60) L 03/27/25 03:10 BUN/Creatinine Ratio 16.2 RATIO (10-20) 03/27/25 03:10 Glucose 86 mg/dL (70-99) 03/27/25 03:10 Vancomycin Trough 15.4 ug/mL (5.0-15.0) H 03/27/25 13:10 Microbiology Microbiology: Microbiology 03/27/25 10:30 Mucosa - Throat Streptococcus pyogenes (PCR) - Final 03/26/25 10:30 Urine Catheter - Vicente Urine Culture - Preliminary Culture exhibits no growth. 03/26/25 10:30 Urine Catheter - Vicente Legionella Antigen - Final 03/26/25 05:30 Sputum, Induced/Lukens Gram Stain - Final 03/26/25 05:30 Sputum, Induced/Lukens Respiratory Culture - Preliminary Appears to be normal respiratory mariah. Further studies to follow. 03/26/25 01:19 Mucosa - Nasopharyngeal Respiratory Panel (PCR) - Final 03/26/25 10:30 Urine Catheter - Catheter Streptococcus pneumoniae Antigen (M - Final 03/26/25 08:30 Nasal Secretion MRSA (PCR) - Final 03/26/25 08:36 Mucosa - Nasopharyngeal SARS-CoV-2, Influenza & RSV (PCR) - Final 03/25/25 23:14 Mucosa - Nose SARS-CoV-2, Influenza & RSV (PCR) - Final Dosing Weight Weight used for dosin kg Estimated Creatinine Clearance Estimated Creatinine Clearance: ~ 45 Goal Trough Goal Trough: 15-20 mcg/mL Pharmacy Plan for Drug Dosing Pharmacy Plan for Drug Dosing: Vancomycin trough = 15.4, continue current dosing Pharmacy Service will continue to monitor and adjust dosing as required. Follow-Up Labs Follow-Up Labs: Trough: Vancomycin Date/Time Labs Ordered Labs to be done on [date and time ordered]: 03/29/25 @ 1300
[2025-03-27 16:35] LABS: Troponin T High Sens 4 HR 246 ng/L (<=22)
--- NOTE | 2025-03-27 20:00 | PCM.PN.REN ---
Subjective Subjective feels better off ivf good UOP no sob tolerating po Objective Data Objective Data Vital Signs: Vital Signs Temp Pulse Resp BP Pulse Ox O2 Del Method O2 Flow Rate 97.8 F 87 18 130/83 H 97 Room Air 3 03/27/25 15:23 03/27/25 15:23 03/27/25 15:23 03/27/25 15:23 03/27/25 15:23 03/27/25 15:23 03/26/25 16:05 FiO2 21 03/27/25 01:00 Oxygen Flow Rate (L/min) 3 Oxygen Delivery Method Room Air Weight: 118.6 kg Body Mass Index (BMI) 34.6 Intake & Output: Intake and Output for Last 24 Hours 03/25/25 03/26/25 03/27/25 23:59 23:59 23:59 Intake Total 6882.86 / 6992.26 2139.4 / 2139.4 Output Total 250 / 850 1850 / 1850 Balance 6632.86 / 6142.26 289.4 / 289.4 Lab / Micro Data Attestation: I reviewed the patient's lab results. 03/27/25 03:10 03/27/25 03:10 Labs: Laboratory Results - last 24 hr 03/26/25 21:04: POC Glucose 117 H 03/27/25 03:10: WBC 8.5, RBC 4.06 L, Hgb 12.8 L, Hct 37.1 L, MCV 91.4, MCH 31.5, MCHC 34.5, RDW Std Deviation 45.9 H, RDW Coeff of Feli 13.5, Plt Count 86 L, MPV 10.7, Immature Gran % (Auto) 0.400, Neut % (Auto) 78.7 H, Lymph % (Auto) 12.0 L, [place] % (Auto) 7.5, Eos % (Auto) 0.9, Baso % (Auto) 0.5, Absolute Neuts (auto) 6.7, Absolute Lymphs (auto) 1.02, Nucleated RBC % 0, Platelet Estimate SLT DEC, Sodium 137, Potassium 4.0, Chloride 107, Carbon Dioxide 19.2 L, Anion Gap 11, BUN 34 H, Creatinine 2.09 H, Estim Creat Clear Calc 45.00 L, Est GFR (MDRD) Non-Af 34 L, BUN/Creatinine Ratio 16.2, Glucose 86, Calcium 7.5 L, Phosphorus 3.8, Magnesium 2.0, Total Creatine Kinase 720 H 03/27/25 10:25: Troponin T High Sens 246 H* D 03/27/25 12:00: Troponin T Hi Sens 2 Hr 240 H* 03/27/25 12:12: POC Glucose 130 H 03/27/25 13:10: Vancomycin Trough 15.4 H 03/27/25 15:45: Troponin T Hi Sens 4Hr 246 H* 03/27/25 16:47: POC Glucose 125 H 03/27/25 : Lactic Acid 1.2 Micro: Microbiology 03/27/25 10:30 Mucosa - Throat Streptococcus pyogenes (PCR) - Final 03/26/25 10:30 Urine Catheter - Vicente Urine Culture - Preliminary Culture exhibits no growth. 03/26/25 10:30 Urine Catheter - Vicente Legionella Antigen - Final 03/26/25 05:30 Sputum, Induced/Lukens Gram Stain - Final 03/26/25 05:30 Sputum, Induced/Lukens Respiratory Culture - Preliminary Appears to be normal respiratory mariah. Further studies to follow. 03/26/25 01:19 Mucosa - Nasopharyngeal Respiratory Panel (PCR) - Final 03/26/25 10:30 Urine Catheter - Catheter Streptococcus pneumoniae Antigen (M - Final 03/26/25 08:30 Nasal Secretion MRSA (PCR) - Final 03/26/25 08:36 Mucosa - Nasopharyngeal SARS-CoV-2, Influenza & RSV (PCR) - Final 03/25/25 23:14 Mucosa - Nose SARS-CoV-2, Influenza & RSV (PCR) - Final Physical Exam Narrative alert and responsive, sitting in chair, no acute distress s1s2 regular b/s equal abdomen obese, non tender on palpation no significant peripheral edema Assessment & Plan Assessment/Plan (1) ELISE (acute kidney injury): PLAN: ELISE -secondary to pre-renal/hemodynamics -scr peaked at 2.17mg/dL and improved to 2.09mg/dL today -tolerating po -off ivf -bp stable -bmp in am Hypophosphatemia -better with replacement
[2025-03-28] MEDS: Vancomycin HCl 1,500 MG in 0.9% Normal Saline (500mL Bag) 500 ML 250 MG IV ×2 (01:35→14:56)
[2025-03-28 03:00] VITALS: BP 131/81; PULSE 87; RESP 16; TEMP 36.6; O2SAT 97
[2025-03-28 05:45] LABS: Hematocrit 42.6 % (40-54); Hemoglobin 14.3 g/dL (13.0-16.5); Immature Granulocytes Count 0.020 X10^3/uL (0.0-0.0); Mean Corp Hgb Conc 33.6 g/dL (32-36); Mean Corpuscular Volume 92.4 fL (80-94); Mean Platelet Vol. 11.0 fl (6.2-12.0); NRBC Flagged by Analyzer 0 % (0-5); Platelet Count 110 K/mm3 (150-450); RBC Distribution Width CV 13.1 % (11.6-14.6); RBC Distribution Width SD 44.6 fl (35.1-43.9); Red Blood Count 4.61 M/mm3 (4.6-6.2); White Blood Count 5.4 K/mm3 (4.4-11.0)
[2025-03-28 06:00] VITALS: BMI 34.6
[2025-03-28 06:21] LABS: Anion Gap 13 (5-15); BUN 27 mg/dL (4-19); BUN/Creat Ratio 19.2 RATIO (10-20); Calcium,Total 8.9 mg/dL (7.6-11.0); Carbon Dioxide 18.2 mmol/L (21.0-32.0); Chloride 106 mmol/L (98-108); Estimated Creatinine Clearance 68.16 ml/min (50-250); Glucose 116 mg/dL (70-99); Potassium 4.3 mmol/L (3.3-5.1)
--- NOTE | 2025-03-28 07:57 | PN.HOSP_ITS ---
Reason for Visit Chief Complaint: Rigors, Chills and Fatigue. Objective Data Objective Data Vital Signs: Vital Signs Temp Pulse Resp BP Pulse Ox O2 Del Method O2 Flow Rate 97.8 F 87 16 131/81 H 97 Room Air 3 03/28/25 03:00 03/28/25 03:00 03/28/25 03:00 03/28/25 03:00 03/28/25 03:00 03/28/25 03:00 03/26/25 16:05 FiO2 21 03/27/25 01:00 Oxygen Flow Rate (L/min) 3 Oxygen Delivery Method Room Air Weight: 261 lb 7.492 oz Body Mass Index (BMI) 34.6 Intake & Output: Intake and Output for Last 24 Hours 03/26/25 03/27/25 03/28/25 23:59 23:59 23:59 Intake Total 6882.86 / 6992.26 2139.4 / 2239.4 1030 / 1030 Output Total 250 / 850 1850 / 2200 1750 / 1750 Balance 6632.86 / 6142.26 289.4 / 39.4 -720 / -720 Lab / Micro Data 03/28/25 05:10 03/28/25 05:10 Labs: Laboratory Results - last 24 hr 03/27/25 03:10: Phosphorus 3.8, Magnesium 2.0, Total Creatine Kinase 720 H 03/27/25 08:06: POC Glucose 89 03/27/25 10:25: Troponin T High Sens 246 H* D 03/27/25 12:00: Troponin T Hi Sens 2 Hr 240 H* 03/27/25 12:12: POC Glucose 130 H 03/27/25 13:10: Vancomycin Trough 15.4 H 03/27/25 15:45: Troponin T Hi Sens 4Hr 246 H* 03/27/25 16:47: POC Glucose 125 H 03/27/25 22:43: POC Glucose 116 H 03/27/25 : Lactic Acid 1.2 03/28/25 05:10: WBC 5.4, RBC 4.61, Hgb 14.3, Hct 42.6, MCV 92.4, MCH 31.0, MCHC 33.6, RDW Std Deviation 44.6 H, RDW Coeff of Feli 13.1, Plt Count 110 L, MPV 11.0, Immature Gran % (Auto) 0.400, Neut % (Auto) 68.8, Lymph % (Auto) 17.9 L, [place] % (Auto) 8.2, Eos % (Auto) 4.1, Baso % (Auto) 0.6, Absolute Neuts (auto) 3.7, Absolute Lymphs (auto) 0.96, Nucleated RBC % 0, Sodium 137, Potassium 4.3, Chloride 106, Carbon Dioxide 18.2 L, Anion Gap 13, BUN 27 H, Creatinine 1.38 H, Estim Creat Clear Calc 68.16, Est GFR (MDRD) Non-Af 55 L, BUN/Creatinine Ratio 19.2, Glucose 116 H, Calcium 8.9 03/28/25 06:38: POC Glucose 124 H Micro: Microbiology 03/26/25 10:30 Urine Catheter - Vicente Urine Culture - Final Culture exhibits no growth. 03/26/25 10:30 Urine Catheter - Vicente Legionella Antigen - Final 03/26/25 05:30 Sputum, Induced/Lukens Gram Stain - Final 03/26/25 05:30 Sputum, Induced/Lukens Respiratory Culture - Final 03/27/25 10:30 Mucosa - Throat Streptococcus pyogenes (PCR) - Final 03/26/25 01:19 Mucosa - Nasopharyngeal Respiratory Panel (PCR) - Final 03/26/25 10:30 Urine Catheter - Catheter Streptococcus pneumoniae Antigen (M - Final 03/26/25 08:30 Nasal Secretion MRSA (PCR) - Final 03/26/25 08:36 Mucosa - Nasopharyngeal SARS-CoV-2, Influenza & RSV (PCR) - Final 03/25/25 23:14 Mucosa - Nose SARS-CoV-2, Influenza & RSV (PCR) - Final Physical Exam Narrative Seen and examined. Discussed with the medical staff director. Urine output has improved. Creatinine also decreasing Patient was extubated on 03/26 Physical exam General: Awake, alert oriented times. Comfortable HEENT: Atraumatic, PERRLA, EOMI, Normocephalic. Oral: ETT and OGT Neck: Supple, No JVD, Negative Carotid Bruits Chest wall/Lungs: Air entry diminished in bilateral lung bases. No crepitation/rhonchi Cardiovascular: Sinus rhythm, systolic murmur LLSB, right second ICS Abdomen: Bowel Sounds present, Soft, Non Tender, slightly distended : Vicente catheter. No renal angle tenderness. No suprapubic tenderness. Extremities: Mild leg swelling edema, Capillary Refill Less than 3 Seconds Skin: No rashes, No breakdown Musculoskeletal: No Tenderness to Palpation of Joints or Extremities Neurological: DTR 2/4, no acute focal neurological deficit Psych/Mental Status: Flat affect Assessment & Plan Assessment/Plan (1) Shock: (2) ELISE (acute kidney injury): (3) Thrombocytopenia: (4) Hyperbilirubinemia: PLAN: Plan 69-year-old gentleman came to ED when he felt muscle cramps, dizziness, restlessness, generalized weakness and fatigue and diaphoresis when he went to bed. He had sleepless night and then came to ED. Denies any other focal symptoms including nausea, vomiting, chest pain pressure or diarrhea fever or other URI symptoms. In the ICU, patient oral temperature 105F and then intravesical core temperature 101 Fahrenheit. Patient was also in respiratory distress and then ABG was done and intubated. In ED, vitals were within normal limit but deteriorated while the patient came to ICU. 1. Fever, most likely due to septic shock/undifferentiated shock:, Focus on the patient is being admitted in ICU. Patient has nonfocal symptoms but high fever, mild tachypnea, leukocytosis, hypotension, The patient presented with sepsis with clinical indicators of high grade fever, tachypnea, leukocytosis, 13.3 K due to unclear focus/unknown with acute sepsis-related organ dysfunction as evidenced by fluid bolus resistant hypotensive, lactic acidosis, ELISE, creatinine more than 2, hyperbilirubinemia, urine output less than 50 mL/h for 2-hour and high anion gap metabolic acidosis. Patient also has high procalcitonin. D- dimer was elevated probably due to sepsis. Bilateral PE ruled out. ID consulted. Continue broad-spectrum antibiotic. Patient is on IV Levophed Patient had CT brain, CT soft tissue neck, CT chest, abdomen and pelvis which did not show acute abnormality. Panculture ordered. ID consult reviewed. Blood culture negative so far. Was ordered Lyme disease West [place] and TSH. Antibiotic narrowed down to vancomycin and ceftriaxone. 03/27: Unclear whether septic shock or undifferentiated shock. So far focus of infection still not clear. Respiratory panel, urinary antigens, MRSA nasal screen all are negative. Sputum culture shows 2+ WBC, rare gram-positive rods. Continue IV empiric antibiotics. Patient off vasopressor 03/28: Patient was transferred to PCU yesterday. Has leg swelling probably due to IV fluid boluses. Bruce wrap bandage ordered. West Nile test, Lyme antibody autoimmune workup is still pending 2. ELISE: Patient has Vicente catheter and does not have any urine in the tubing or bag. Baseline creatinine around 1.14, increased to 2.17. 03/26 discussed with the configuration management analyst. Urine output 250 mL since midnight therefore oliguria. Nonoliguric ELISE. 03/27: ELISE improving . urine output has improved daughterly 1150 mL so far, 550 mL since midnight. Creatinine 2.09, BUN 34. Renal ultrasound reported right kidney hypertrophy otherwise no obstruction. 03/28: Creatinine is improving. Vicente catheter removed. 3. Elevated troponin: First troponin is 58 with known history of ascending aortic aneurysm/aortic root dilatation, aortic stenosis with bicuspid valve status post aortic root aneurysm repair, AVR: Last cardiology visit with Dr. Jimenez reviewed. Patient also has intracavitary gradient of 35 mmHg in LV with severe asymmetric cardiomyopathy, mean gradient 12, mean gradient 24 mmHg. Last echo shows EF 65% in March 2024. 2D echo ordered to look for any vegetation/source of infection The patient on beta-shara, recently increased to metoprolol 100 mg twice daily, currently on hold. Cycle troponin just Repeat echo 03/26 shows EF 70%, stage I diastolic dysfunction. Small LV cavity, bioprosthetic AV valve appearing function normally. Mean peak gradient 16 mmHg. Severe LV concentric hypertrophy. Stage I diastolic dysfunction. 03/27: Serial troponins 121, 58 and 52 serial decrease. Patient does not have chest pain or pressure. ACS ruled out. 2D echo as mentioned above 4. Hypophosphatemia of 1 mg/dL present on admission: Patient had 45 mmol Potassium Phosphate IV 03/28: Repeat phosphorus is normal 3.8. Serum magnesium 2.0. Obesity grade 2: BMI 34 this admission. 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 It is not 50% decrease. Patient not on heparin related medication DM type II: A1c 6.2% Accu-Chek before meals and at bedtime with Humalog sliding scale coverage and hypoglycemia protocol. Glucose is controlled. Other comorbidities include hypertension, dyslipidemia, GERD and osteoarthritis: Home medication reconciliation done. Hold antihypertensive medications. IV PPI. CPK 214. Mildly elevated DVT prophylaxis - Enoxaparin 40 mg sq daily plus SCD's. Stop LMWH if platelet count drops ~100K. Microbiology Past 72 Hours 03/26/25 10:30 Urine Catheter - Vicente Urine Culture - Final Culture exhibits no growth. 03/26/25 10:30 Urine Catheter - Vicente Legionella Antigen - Final 03/26/25 05:30 Sputum, Induced/Lukens Gram Stain - Final 03/26/25 05:30 Sputum, Induced/Lukens Respiratory Culture - Final 03/27/25 10:30 Mucosa - Throat Streptococcus pyogenes (PCR) - Final 03/26/25 01:19 Mucosa - Nasopharyngeal Respiratory Panel (PCR) - Final 03/26/25 10:30 Urine Catheter - Catheter Streptococcus pneumoniae Antigen (M - Final 03/26/25 08:30 Nasal Secretion MRSA (PCR) - Final 03/26/25 08:36 Mucosa - Nasopharyngeal SARS-CoV-2, Influenza & RSV (PCR) - Final 03/25/25 23:14 Mucosa - Nose SARS-CoV-2, Influenza & RSV (PCR) - Final Laboratory Results 03/27/25 08:06: POC Glucose 89 03/27/25 10:25: Troponin T High Sens 246 H* D 03/27/25 12:00: Troponin T Hi Sens 2 Hr 240 H* 03/27/25 12:12: POC Glucose 130 H 03/27/25 13:10: Vancomycin Trough 15.4 H 03/27/25 15:45: Troponin T Hi Sens 4Hr 246 H* 03/27/25 16:47: POC Glucose 125 H 03/27/25 22:43: POC Glucose 116 H 03/27/25 : Lactic Acid 1.2 03/28/25 05:10: WBC 5.4, RBC 4.61, Hgb 14.3, Hct 42.6, MCV 92.4, MCH 31.0, MCHC 33.6, RDW Std Deviation 44.6 H, RDW Coeff of Feli 13.1, Plt Count 110 L, MPV 11.0, Immature Gran % (Auto) 0.400, Neut % (Auto) 68.8, Lymph % (Auto) 17.9 L, [place] % (Auto) 8.2, Eos % (Auto) 4.1, Baso % (Auto) 0.6, Absolute Neuts (auto) 3.7, Absolute Lymphs (auto) 0.96, Nucleated RBC % 0, Sodium 137, Potassium 4.3, Chloride 106, Carbon Dioxide 18.2 L, Anion Gap 13, BUN 27 H, Creatinine 1.38 H, Estim Creat Clear Calc 68.16, Est GFR (MDRD) Non-Af 55 L, BUN/Creatinine Ratio 19.2, Glucose 116 H, Calcium 8.9 03/28/25 06:38: POC Glucose 124 H Clinical Impression(s) from Imaging Studies Chest X-Ray 03/25/25 22:45 IMPRESSION: Cardiomegaly. No acute pulmonary disease. Reading Location: [facility] Chest/Abdomen/Pelvis CTA 03/26/25 00:00 IMPRESSION: Status post AVR. Status post ascending aortic repair with graft. No thoracic aortic aneurysm or dissection. No acute chest, abdomen, or pelvic pathology. Reading Location: [facility] 03/26/25 01:08 IMPRESSION: No acute intracranial findings. Reading Location: [facility] 03/26/25 01:08 IMPRESSION: No acute findings. Reading Location: [facility]- Echocardiogram 03/26/25 02:43 Interpretation Summary Small LV cavity. Severe left ventricular concentric hypertrophy. Estimated LVEF 70%. Stage I diastolic dysfunction. Bioprosthetic aortic valve appears to function normally. Mean peak gradient 16 mmHg. The study was technically difficult. Ordering Physician: Anthony Alberto Referring Physician: ABDIEL MATHEWS Performed By: Chanelle St RDCS Chest X-Ray 03/26/25 05:20 IMPRESSION: No acute chest findings. Reading Location: [facility]- Renal Ultrasound 03/26/25 09:50 IMPRESSION: Hypertrophy of the right kidney. No evidence of obstruction. Charges/Coding Visit Charges Inpatient E&M: 96308 Subs Hosp L2
[2025-03-28 08:30] VITALS: BP 150/93; PULSE 91; RESP 18; TEMP 36.4; O2SAT 98
--- NOTE | 2025-03-28 10:06 | PCM.PN.TICU ---
Objective Data Objective Data Vital Signs: Vital Signs Last response Temperature 36.4 C L 03/28/25 08:30 Temperature Source Oral 03/28/25 08:30 Pulse Rate 91 03/28/25 08:30 Pulse Strength Normal (2+) 03/27/25 09:01 Respiratory Rate 18 03/28/25 08:30 Respiratory Effort Normal 03/28/25 08:30 Respiratory Depth Normal 03/28/25 08:30 Respiratory Pattern Normal 03/28/25 08:30 Blood Pressure 150/93 H 03/28/25 08:30 Blood Pressure Mean 112 03/28/25 08:30 Blood Pressure Source Monitor 03/28/25 08:30 Blood Pressure Position Sitting 03/28/25 08:30 Blood Pressure Location Left Arm 03/28/25 08:30 Pulse Ox 98 03/28/25 08:30 Oxygen Delivery Method Room Air 03/28/25 08:30 Oxygen Flow Rate (L/min) 3 03/26/25 16:05 Fraction of Inspired Oxygen (FIO2) 21 03/27/25 01:00 I&O: I&O Last 24 Hours 03/27/25 03/27/25 03/28/25 11:59 23:59 11:59 Intake Total 1089.4 / 2239.4 1050 / 2239.4 1030 / 1030 Output Total 1150 / 2200 700 / 2200 1750 / 1750 Balance -60.6 / 39.4 350 / 39.4 -720 / -720 I&O: Total Stay 03/25/25 21:44 thru 03/28/25 06:00 Intake Total 55777.26 Output Total 3850 Balance 6202.26 Current Meds Ordered / Administered: Current meds ordered / Administered Generic Name Dose Route Start Last Admin Trade Name Freq PRN Reason Stop Dose Admin Acetaminophen 650 mg 03/26/25 02:43 03/26/25 11:42 Acetaminophen 325 Mg Tablet PO 650 mg Q6H PRN PRN Administration Pain 1-5/10 or Fever Aspirin 81 mg 03/26/25 08:00 03/27/25 08:16 Aspirin 81 Mg Tab.Chew PO 81 mg DAILY@0800 [facility] Administration Chlorhexidine Gluconate 1 each 03/26/25 10:00 03/27/25 08:19 Chlorhexidine Gluc 2% Cloth 1 Each [place] TOPICAL 1 each DAILY ALTON Administration Enoxaparin Sodium 40 mg 03/26/25 10:00 03/27/25 08:19 Enoxaparin 40 Mg/0.4 Ml Syringe SC 40 mg DAILY ALTON Administration Glucagon 1 mg 03/26/25 02:43 Glucagon 1 Mg/Ml Syringe IM X1 PRN HYPOGLYCEMIA Protocol Vancomycin IV-PHARMACY TO DOSE 500 mls @ 250 mls/hr 03/26/25 02:43 1 each/ Sodium Chloride IV PRN PRN Rx to Dose Protocol Dextrose 250 mls @ 0 mls/hr 03/26/25 02:43 Dextrose 10%-Water IV .Q0M PRN HYPOGLYCEMIA Protocol As Directed Vancomycin HCl 1,500 mg/ 530 mls @ 250 mls/hr 03/26/25 13:30 03/28/25 03:55 Sodium Chloride IV Infused Q12H ALTON Infusion Sodium Chloride 250 mls @ 15 mls/hr 03/26/25 05:58 IV .[id number] PRN Saline Flush Sodium Chloride 250 mls @ 15 mls/hr 03/26/25 05:58 IV .[id number] PRN Additional IVPB Infusion Ceftriaxone Sodium 2 gm/ 50 mls @ 100 mls/hr 03/26/25 15:55 03/27/25 10:11 Sodium Chloride IV Infused Q24 ALTON Infusion Insulin Human Lispro 0 unit 03/26/25 22:00 03/28/25 06:44 Insulin Lispro 100 Unit/Ml Insuln.Pen SC Not Given ACHS ALTON Protocol Midodrine 10 mg 03/27/25 13:28 Midodrine Hcl 5 Mg Tablet PO PRN PRN systolic <100 Multivitamins 1 tablet 03/26/25 08:00 03/27/25 08:17 Multivitamins,Therapeutic Tablet PO 1 tablet DAILYCM ALTON Administration Ondansetron HCl 4 mg 03/26/25 02:43 03/26/25 05:07 Ondansetron 4 Mg/2 Ml Vial IV 4 mg Q8H PRN PRN Administration NAUSEA/VOMITING Pantoprazole Sodium 40 mg 03/28/25 10:00 Pantoprazole Sodium 40 Mg Tablet PO DAILY ALTON Sodium Chloride 10 - 40 ml 03/26/25 05:58 03/27/25 22:46 0.9% Saline Lock 10 Ml Syringe IV 40 ml UD PRN Administration SALINE FLUSH Vancomycin Protocol 1 lab 03/29/25 12:00 Vancomycin Trough/Random Due 03/29/25 14:00 DAILY [facility] Lab / Micro Data 03/28/25 05:10 03/28/25 05:10 Labs: Laboratory Results - last 24 hr 03/27/25 08:06: POC Glucose 89 03/27/25 10:25: Troponin T High Sens 246 H* D 03/27/25 12:00: Troponin T Hi Sens 2 Hr 240 H* 03/27/25 12:12: POC Glucose 130 H 03/27/25 13:10: Vancomycin Trough 15.4 H 03/27/25 15:45: Troponin T Hi Sens 4Hr 246 H* 03/27/25 16:47: POC Glucose 125 H 03/27/25 22:43: POC Glucose 116 H 03/27/25 : Lactic Acid 1.2 03/28/25 05:10: WBC 5.4, RBC 4.61, Hgb 14.3, Hct 42.6, MCV 92.4, MCH 31.0, MCHC 33.6, RDW Std Deviation 44.6 H, RDW Coeff of Feli 13.1, Plt Count 110 L, MPV 11.0, Immature Gran % (Auto) 0.400, Neut % (Auto) 68.8, Lymph % (Auto) 17.9 L, [place] % (Auto) 8.2, Eos % (Auto) 4.1, Baso % (Auto) 0.6, Absolute Neuts (auto) 3.7, Absolute Lymphs (auto) 0.96, Nucleated RBC % 0, Sodium 137, Potassium 4.3, Chloride 106, Carbon Dioxide 18.2 L, Anion Gap 13, BUN 27 H, Creatinine 1.38 H, Estim Creat Clear Calc 68.16, Est GFR (MDRD) Non-Af 55 L, BUN/Creatinine Ratio 19.2, Glucose 116 H, Calcium 8.9 03/28/25 06:38: POC Glucose 124 H Micro: Microbiology 03/26/25 10:30 Urine Catheter - Vicente Urine Culture - Final Culture exhibits no growth. 03/26/25 10:30 Urine Catheter - Vicente Legionella Antigen - Final 03/26/25 05:30 Sputum, Induced/Lukens Gram Stain - Final 03/26/25 05:30 Sputum, Induced/Lukens Respiratory Culture - Final 03/27/25 10:30 Mucosa - Throat Streptococcus pyogenes (PCR) - Final Assessment and Plan . Assessment and plan: Subjective: No acute events o/n. Pt feels he is improving Physical Exam: Gen - NAD, obese HEENT - MMM. Sclera anicteric Resp - CTAB. Breathing nonlabored CV - RRR. No m/g/r Abd - Soft, NT, ND Ext - No c/c. +edema Skin - No rashes? Neuro - Grossly nonfocal. Alert and oriented I have reviewed the pertinent vital sign, laboratory, and imaging data. ASSESSMENT: # Acute hypoxic respiratory failure ? extubated 03/26 # Shock # Fever of unknown origin # ELISE # NSTEMI ? suspect type 2 # Aortic stenosis s/p AVR # AAA # h/o HTN # DM PLAN: -Remains on room air, monitor breathing -Remains off pressors now. Midodrine changed to PRN now given actually hypertensive -Cont empiric vanc/rocephin as per ID recs. Lyme, [place], CTD serologies pending. Otherwise workup/viral panel thus far negative -CT imaging unremarkable -Follow Cr, UOP. Nephrology on board. Monitor for worsening edema/need for diuretics -Monitor Plt, watch for bleeding -SSI FEN/GI: PO as tolerated Proph DVT/GI: Lovenox, protonix We will sign off given clinical improvement, downgraded from ICU. Please call us back with any questions or if clinical worsening The entirety of this encounter was done via telemedicine using both audio and video. Consent was obtained.
[2025-03-28] MEDS: Lactobacillis Acidophilus 1 CAP PO ×4 (11:26→23:01)
[2025-03-28] MEDS: Ceftriaxone 2 GM in 0.9% Normal Saline (50mL MB+) 50 ML IV (11:27)
[2025-03-28] MEDS: 0.9% Saline Lock 10 ML Syringe IV ×2 (11:27→23:02)
[2025-03-28 12:07] LABS: Lyme Scn Total Ab w/Rflx Negative (Negative)
[2025-03-28 14:50] VITALS: BP 148/97; PULSE 94; RESP 16; TEMP 36.7; O2SAT 98
[2025-03-28 21:00] VITALS: BP 160/91; PULSE 90; RESP 16; TEMP 36.6; O2SAT 100
[2025-03-29] MEDS: Vancomycin HCl 1,500 MG in 0.9% Normal Saline (500mL Bag) 500 ML 250 MG IV (02:08)
[2025-03-29] MEDS: 0.9% Saline Lock 10 ML Syringe IV ×2 (02:09→10:51)
[2025-03-29 04:00] VITALS: BP 147/97; PULSE 78; RESP 14; TEMP 36.3; O2SAT 96
[2025-03-29 06:00] VITALS: BMI 34.0
[2025-03-29 06:42] LABS: Hematocrit 40.7 % (40-54); Hemoglobin 13.9 g/dL (13.0-16.5); Immature Granulocytes Count 0.020 X10^3/uL (0.0-0.0); Mean Corp Hgb Conc 34.2 g/dL (32-36); Mean Corpuscular Volume 89.8 fL (80-94); Mean Platelet Vol. 9.8 fl (6.2-12.0); NRBC Flagged by Analyzer 0 % (0-5); Platelet Count 136 K/mm3 (150-450); RBC Distribution Width CV 12.6 % (11.6-14.6); RBC Distribution Width SD 41.6 fl (35.1-43.9); Red Blood Count 4.53 M/mm3 (4.6-6.2); White Blood Count 4.6 K/mm3 (4.4-11.0)
[2025-03-29 07:10] LABS: AST(SGOT) 38 U/L (<=37); Alanine Aminotransfer ALT/SGPT 41 U/L (<=46); Albumin, Serum 3.7 g/dL (3.4-4.8); Alkaline Phosphatase 56 U/L (40-129); Anion Gap 11 (5-15); BUN 21 mg/dL (4-19); BUN/Creat Ratio 17.5 RATIO (10-20); Calcium,Total 9.2 mg/dL (7.6-11.0); Carbon Dioxide 21.3 mmol/L (21.0-32.0); Chloride 106 mmol/L (98-108); Estimated Creatinine Clearance 78.97 ml/min (50-250); Globulin 2.7 g/dL (2.2-4.2); Glucose 128 mg/dL (70-99); Potassium 4.3 mmol/L (3.3-5.1)
[2025-03-29] MEDS: Lactobacillis Acidophilus 1 CAP PO (07:46)
--- NOTE | 2025-03-29 07:54 | PCM.DC ---
Discharge Instructions DC O2, CPAP, BIPAP needs Home O2 Discharge instructions: No Dressing / Incision Discharge Activity: Return to Normal Activity Weight Bearing Status: Weight bearing as tolerated Dressing / Incision Call your doctor if you observe: Fever of 101 or Higher, Coldness, Increased Pain, Numbness or Tingling, Change in Color, Inability to urinate, Inability to have a bowel movement, Shortness of breath, Dizziness, Fainting spells, Swelling in the ankles, Chest pain, Prolonged hiccupping, Increased palpitations (irregular heartbeat) and Calf discomfort Follow Up Care When: IN 2 WEEKS Test Results: Test results from this visit will be discussed in further detail at your follow-up appointment, if applicable. Discharge Plan Admission Admit Date/Time: 03/26/25 02:03 Attending Provider: Mainor Borges Primary Care Provider: Alida Parker Consulting Providers: Anthony Alberto; Bret De Jesus; Nikkie Johnson Discharge Orders/Prescriptions Prescriptions: Continued nitroglycerin [Nitrostat] 0.4 mg tablet, sublingual 0.4 mg SUBLINGUAL Q5M PRN (Reason: chest pain) Qty: 90 3RF multivitamin [Daily Multi-Vitamin] Tablet 1 tab PO DAILY Jardiance 10 mg tablet 10 mg PO DAILY metoprolol tartrate 100 mg tablet 100 mg PO BID Qty: 60 3RF aspirin 81 MG tablet,chewable 81 mg PO DAILY@0800 omeprazole 40 mg capsule,delayed release(DR/EC) 40 mg PO DAILY PRN (Reason: heart burn) Patient Comments: atorvastatin 20 mg tablet 20 mg PO QHS Qty: 90 3RF Held telmisartan 20 mg tablet 20 mg PO DAILY Hold Instructions: Hold for 5 days, start lower dose in consultation with PCP Discontinued amoxicillin 500 mg tablet See Rx Instructions PO .COMPLEX Qty: 8 0RF Dose Instruction: 500mg, 4 tablets, 1 hr prior to procedure PO Rx Instructions: 500mg, 4 tablets, 1 hr prior to procedure PO Referrals / Follow Up: Alida Parker, [employer] [Primary Care Provider] - Nitesh Jimenez MD [Med Staff - Active Staff] - Within 1 Month Nikkie Johnson MD [Med Staff - Consulting] - Within 1 Month Bret De Jesus MD [Med Staff - Active Staff] - Within 1 Month Disposition Disposition (needs filled in before D/C Order can be placed): Home, Self Care
[2025-03-29 10:39] VITALS: BP 150/95; PULSE 91; RESP 16; TEMP 36.9; O2SAT 99
[2025-03-29] MEDS: Ceftriaxone 2 GM in 0.9% Normal Saline (50mL MB+) 50 ML IV (10:52)
--- NOTE | 2025-03-29 10:54 | DS.PCM_ITS ---
Providers Date of Admission: 03/26/25 Date of Discharge: 03/29/25 Primary Care Physician: ALEXANDRA Mathew Consultations 03/26/25 05:12 Consult: Infectious Disease Routine Consulting Provider: Bret De Jesus Reason for Consult: fever EMERGENT Consult: No Notified: Yes Date Notified: 03/26/25 Time Notified: 05:12 Method of Notification: Text 03/26/25 07:31 Consult: [facility] / Pulmonary Medicine Routine Consulting Provider: Intensivists/Pulmonary Med Reason for Consult: Fever, sepsis EMERGENT Consult: No Notified: Yes Date Notified: 03/26/25 Time Notified: 07:32 Method of Notification: Verbal 03/26/25 08:28 Consult: Nephrology Routine Consulting Provider: Nikkie Johnson Reason for Consult: ELISE, anuria EMERGENT Consult: No Notified: Yes Date Notified: 03/26/25 Time Notified: 08:28 Method of Notification: Verbal Reason For Visit: SIRS WITH LEUKOCYTOSIS, HYPERBILIRUBINEMIA, ELISE, Diagnosis Discharge Diagnosis (1) Shock: Status: Acute Code(s): R57.9 - Shock, unspecified (2) ELISE (acute kidney injury): Status: Acute Code(s): N17.9 - Acute kidney failure, unspecified (3) Thrombocytopenia: Status: Acute Code(s): D69.6 - Thrombocytopenia, unspecified (4) Hyperbilirubinemia: Status: Acute Code(s): E80.6 - Other disorders of bilirubin metabolism Plan 69-year-old gentleman came to ED when he felt muscle cramps, dizziness, restlessness, generalized weakness and fatigue and diaphoresis when he went to bed. He had sleepless night and then came to ED. Denies any other focal symptoms including nausea, vomiting, chest pain pressure or diarrhea fever or other URI symptoms. In the ICU, patient oral temperature 105F and then intravesical core temperature 101 Fahrenheit. Patient was also in respiratory distress and then ABG was done and intubated. In ED, vitals were within normal limit but deteriorated while the patient came to ICU. 1. Fever, most likely due to septic shock/undifferentiated shock:, Focus on the patient is being admitted in ICU. Patient has nonfocal symptoms but high fever, mild tachypnea, leukocytosis, hypotension, The patient presented with sepsis with clinical indicators of high grade fever, tachypnea, leukocytosis, 13.3 K due to unclear focus/unknown with acute sepsis-related organ dysfunction as evidenced by fluid bolus resistant hypotensive, lactic acidosis, ELISE, creatinine more than 2, hyperbilirubinemia, urine output less than 50 mL/h for 2-hour and high anion gap metabolic acidosis. Patient also has high procalcitonin. D- dimer was elevated probably due to sepsis. Bilateral PE ruled out. ID consulted. Continue broad-spectrum antibiotic. Patient is on IV Levophed Patient had CT brain, CT soft tissue neck, CT chest, abdomen and pelvis which did not show acute abnormality. Panculture ordered. ID consult reviewed. Blood culture negative so far. Was ordered Lyme disease West Nile and TSH. Antibiotic narrowed down to vancomycin and ceftriaxone. 03/27: Unclear whether septic shock or undifferentiated shock. So far focus of infection still not clear. Respiratory panel, urinary antigens, MRSA nasal screen all are negative. Sputum culture shows 2+ WBC, rare gram-positive rods. Continue IV empiric antibiotics. Patient off vasopressor 03/28: Patient was transferred to PCU yesterday. Has leg swelling probably due to IV fluid boluses. Bruce wrap bandage ordered. West Nile test, Lyme antibody autoimmune workup is still pending 03/29: Discussed with ID. Cultures so far are negative. Autoimmune workup pending. Discussed with ID. Prescription for doxycycline 100 mg twice daily for 7 days given. Leukocytosis resolved. 2. ELISE: Patient has Vicente catheter and does not have any urine in the tubing or bag. Baseline creatinine around 1.14, increased to 2.17. 03/26 discussed with the inspector final assembly electrical. Urine output 250 mL since midnight therefore oliguria. Nonoliguric ELISE. 03/27: ELISE improving . urine output has improved daughterly 1150 mL so far, 550 mL since midnight. Creatinine 2.09, BUN 34. Renal ultrasound reported right kidney hypertrophy otherwise no obstruction. 03/28: Creatinine is improving. Vicente catheter removed. 03/29: BUN/creatinine /.18. ELISE resolved. Continue holding home telmisartan 3. Elevated troponin: First troponin is 58 with known history of ascending aortic aneurysm/aortic root dilatation, aortic stenosis with bicuspid valve status post aortic root aneurysm repair, AVR: Last cardiology visit with Dr. Barbara reviewed. Patient also has intracavitary gradient of 35 mmHg in LV with severe asymmetric cardiomyopathy, mean gradient 12, mean gradient 24 mmHg. Last echo shows EF 65% in March 2024. 2D echo ordered to look for any vegetation/source of infection The patient on beta-shara, recently increased to metoprolol 100 mg twice daily, currently on hold. Cycle troponin just Repeat echo 03/26 shows EF 70%, stage I diastolic dysfunction. Small LV cavity, bioprosthetic AV valve appearing function normally. Mean peak gradient 16 mmHg. Severe LV concentric hypertrophy. Stage I diastolic dysfunction. 03/27: Serial troponins 121, 58 and 52 serial decrease. Patient does not have chest pain or pressure. ACS ruled out. 2D echo as mentioned above 4. Hypophosphatemia of 1 mg/dL present on admission: Patient had 45 mmol Potassium Phosphate IV 03/28: Repeat phosphorus is normal 3.8. Serum magnesium 2.0. Obesity grade 2: BMI 34 this admission. 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 It is not 50% decrease. Patient not on heparin related medication 03/29: Platelet count is stable low 136 but improved DM type II: A1c 6.2% Accu-Chek before meals and at bedtime with Humalog sliding scale coverage and hypoglycemia protocol. Glucose is controlled. Other comorbidities include hypertension, dyslipidemia, GERD and osteoarthritis: Home medication reconciliation done. Hold antihypertensive medications. IV PPI. CPK 214. Mildly elevated DVT prophylaxis - Enoxaparin 40 mg sq daily plus SCD's. Stop LMWH if platelet count drops ~100K. Discharge medication reconciliation done. Discharge follow-up instructions completed. Discharge process discussed with the patient and all questions were answered to patient's satisfaction. Follow with PCP in 1 to 2 weeks Total time spent, exact 35 minutes on discharge meds reconciliation, examination, coordination of care with nurses and ancillary staff, review of imaging and blood test and discussion with the patient on follow-up instructions. Microbiology Past 72 Hours 03/26/25 10:30 Urine Catheter - Vicente Urine Culture - Final Culture exhibits no growth. 03/26/25 10:30 Urine Catheter - Vicente Legionella Antigen - Final 03/26/25 05:30 Sputum, Induced/Lukens Gram Stain - Final 03/26/25 05:30 Sputum, Induced/Lukens Respiratory Culture - Final 03/27/25 10:30 Mucosa - Throat Streptococcus pyogenes (PCR) - Final 03/26/25 01:19 Mucosa - Nasopharyngeal Respiratory Panel (PCR) - Final 03/26/25 10:30 Urine Catheter - Catheter Streptococcus pneumoniae Antigen (M - Final 03/26/25 08:30 Nasal Secretion MRSA (PCR) - Final 03/26/25 08:36 Mucosa - Nasopharyngeal SARS-CoV-2, Influenza & RSV (PCR) - Final 03/25/25 23:14 Mucosa - Nose SARS-CoV-2, Influenza & RSV (PCR) - Final Laboratory Results 03/27/25 08:06: POC Glucose 89 03/27/25 10:25: Troponin T High Sens 246 H* D 03/27/25 12:00: Troponin T Hi Sens 2 Hr 240 H* 03/27/25 12:12: POC Glucose 130 H 03/27/25 13:10: Vancomycin Trough 15.4 H 03/27/25 15:45: Troponin T Hi Sens 4Hr 246 H* 03/27/25 16:47: POC Glucose 125 H 03/27/25 22:43: POC Glucose 116 H 03/27/25 : Lactic Acid 1.2 03/28/25 05:10: WBC 5.4, RBC 4.61, Hgb 14.3, Hct 42.6, MCV 92.4, MCH 31.0, MCHC 33.6, RDW Std Deviation 44.6 H, RDW Coeff of Feli 13.1, Plt Count 110 L, MPV 11.0, Immature Gran % (Auto) 0.400, Neut % (Auto) 68.8, Lymph % (Auto) 17.9 L, [place] % (Auto) 8.2, Eos % (Auto) 4.1, Baso % (Auto) 0.6, Absolute Neuts (auto) 3.7, Absolute Lymphs (auto) 0.96, Nucleated RBC % 0, Sodium 137, Potassium 4.3, Chloride 106, Carbon Dioxide 18.2 L, Anion Gap 13, BUN 27 H, Creatinine 1.38 H, Estim Creat Clear Calc 68.16, Est GFR (MDRD) Non-Af 55 L, BUN/Creatinine Ratio 19.2, Glucose 116 H, Calcium 8.9 03/28/25 06:38: POC Glucose 124 H Clinical Impression(s) from Imaging Studies Chest X-Ray 03/25/25 22:45 IMPRESSION: Cardiomegaly. No acute pulmonary disease. Reading Location: [id number] Chest/Abdomen/Pelvis CTA 03/26/25 00:00 IMPRESSION: Status post AVR. Status post ascending aortic repair with graft. No thoracic aortic aneurysm or dissection. No acute chest, abdomen, or pelvic pathology. Reading Location: [facility] 03/26/25 01:08 IMPRESSION: No acute intracranial findings. Reading Location: [facility] 03/26/25 01:08 IMPRESSION: No acute findings. Reading Location: [facility] Echocardiogram 03/26/25 02:43 Interpretation Summary Small LV cavity. Severe left ventricular concentric hypertrophy. Estimated LVEF 70%. Stage I diastolic dysfunction. Bioprosthetic aortic valve appears to function normally. Mean peak gradient 16 mmHg. The study was technically difficult. Ordering Physician: Anthony Alberto Referring Physician: ABDIEL PARKER Performed By: Chanelle St RDCS Chest X-Ray 03/26/25 05:20 IMPRESSION: No acute chest findings. Reading Location: [facility]2 Renal Ultrasound 03/26/25 09:50 IMPRESSION: Hypertrophy of the right kidney. No evidence of obstruction. Medications at Discharge Home Medications aspirin 81 mg chewable tablet 81 mg PO DAILY@0800 [facility] 07/23/14 atorvastatin 20 mg tablet 20 mg PO QHS cholesterol #90 tabs 09/30/20 nitroglycerin 0.4 mg sublingual tablet (Nitrostat) 0.4 mg sublingual Q5M PRN chest pain #90 tabs 10/03/20 omeprazole 40 mg capsule,delayed release 40 mg PO DAILY PRN heart burn 10/04/21 empagliflozin 10 mg tablet (Jardiance) 10 mg PO DAILY diabetes 11/04/23 multivitamin (Daily Multi-Vitamin tablet) 1 tab PO DAILY vitamin 11/04/23 telmisartan 20 mg tablet 20 mg PO DAILY blood pressure 05/04/24 Held on 03/29/25. Instructions: Hold for 5 days, start lower dose in consultation with PCP metoprolol tartrate 100 mg tablet 100 mg PO BID blood pressure #60 tabs 12/24/24 doxycycline monohydrate 100 mg tablet 100 mg PO BID 7 days #14 tabs 03/29/25 Physical Exam Narrative Seen and examined. Discussed with the staffing account manager. Urine output has improved. Creatinine also decreasing Patient was extubated on 03/26 Physical exam General: Awake, alert oriented times. Comfortable HEENT: Atraumatic, PERRLA, EOMI, Normocephalic. Oral: ETT and OGT Neck: Supple, No JVD, Negative Carotid Bruits Chest wall/Lungs: Air entry diminished in bilateral lung bases. No crepitation/rhonchi Cardiovascular: Sinus rhythm, systolic murmur LLSB, right second ICS Abdomen: Bowel Sounds present, Soft, Non Tender, slightly distended : Vicente catheter. No renal angle tenderness. No suprapubic tenderness. Extremities: Mild leg swelling edema, Capillary Refill Less than 3 Seconds Skin: No rashes, No breakdown Musculoskeletal: No Tenderness to Palpation of Joints or Extremities Neurological: DTR 2/4, no acute focal neurological deficit Psych/Mental Status: Flat affect Weight / BMI Weight Weight: 256 lb 9.6 oz Body Mass Index (BMI) 34.0 ABG / Lab / Microbiology Data 03/29/25 06:30 03/29/25 06:30 Laboratory: Laboratory Results - last 24 hr 03/26/25 14:40: Lyme Total Antibody Negative 03/28/25 11:39: POC Glucose 134 H 03/28/25 17:06: POC Glucose 141 H 03/28/25 22:59: POC Glucose 109 H 03/29/25 05:55: West Nile Virus IgG Ab Cancelled, West Nile Virus IgM Ab Cancelled 03/29/25 06:07: POC Glucose 134 H 03/29/25 06:30: WBC 4.6, RBC 4.53 L, Hgb 13.9, Hct 40.7, MCV 89.8, MCH 30.7, MCHC 34.2, RDW Std Deviation 41.6, RDW Coeff of Feli 12.6, Plt Count 136 L, MPV 9.8, Immature Gran % (Auto) 0.400, Neut % (Auto) 62.3, Lymph % (Auto) 23.1, [place] % (Auto) 8.6, Eos % (Auto) 5.0, Baso % (Auto) 0.6, Absolute Neuts (auto) 2.9, Absolute Lymphs (auto) 1.07, Nucleated RBC % 0, Sodium 139, Potassium 4.3, Chloride 106, Carbon Dioxide 21.3, Anion Gap 11, BUN 21 H, Creatinine 1.18, Estim Creat Clear Calc 78.97, Est GFR (MDRD) Non-Af 67, BUN/Creatinine Ratio 17.5, Glucose 128 H, Calcium 9.2, Total Bilirubin 0.71, AST 38, ALT 41, Alkaline Phosphatase 56, Total Protein 6.4, Albumin 3.7, Globulin 2.7, Albumin/Globulin Ratio 1.3 Microbiology: Microbiology 03/26/25 00:00 Blood Culture (Wb) - Venous Blood Culture - Preliminary No growth in 48 hours. 03/26/25 00:03 Blood Culture (Wb) - Anticubital Right Blood Culture - Preliminary No growth in 48 hours. 03/26/25 10:30 Urine Catheter - Vicente Urine Culture - Final Culture exhibits no growth. 03/26/25 10:30 Urine Catheter - Vicente Legionella Antigen - Final 03/26/25 05:30 Sputum, Induced/Lukens Gram Stain - Final 03/26/25 05:30 Sputum, Induced/Lukens Respiratory Culture - Final 03/27/25 10:30 Mucosa - Throat Streptococcus pyogenes (PCR) - Final 03/26/25 01:19 Mucosa - Nasopharyngeal Respiratory Panel (PCR) - Final 03/26/25 10:30 Urine Catheter - Catheter Streptococcus pneumoniae Antigen (M - Final 03/26/25 08:30 Nasal Secretion MRSA (PCR) - Final 03/26/25 08:36 Mucosa - Nasopharyngeal SARS-CoV-2, Influenza & RSV (PCR) - Final 03/25/25 23:14 Mucosa - Nose SARS-CoV-2, Influenza & RSV (PCR) - Final Radiography Diagnostic Testing: Radiology Impression Venous Doppler Study 03/26/25 06:41 Interpretation Summary Deep veins of the bilateral lower extremities are patent and compressible segmentally. There is no evidence of bilateral lower extremity deep vein thrombosis. The bilateral great saphenous veins appear patent and compressible segmentally. Ordering Physician: Anthony Alberto Referring Physician: Abdiel Parker Performed By: Violeta Alvarenga RVT D/C Instructions Weight Bearing Status: Weight bearing as tolerated Call your doctor if you observe: Fever of 101 or Higher, Coldness, Increased Pain, Numbness or Tingling, Change in Color, Inability to urinate, Inability to have a bowel movement, Shortness of breath, Dizziness, Fainting spells, Swelling in the ankles, Chest pain, Prolonged hiccupping, Increased palpitations (irregular heartbeat) and Calf discomfort DC O2, CPAP, BIPAP Needs Home O2 Discharge instructions: No When: IN 2 WEEKS Meaningful Use Info Meaningful Use Meaningful Use Diagnoses (Choose all that apply): None applicable Discharge Plan Admission Admit Date/Time: 03/26/25 02:03 Attending Provider: Mainor Borges Primary Care Provider: Abdiel Parker Consulting Providers: Anthony Alberto; Bret De Jesus; Nikkie Johnson Discharge Orders/Prescriptions Prescriptions: New doxycycline monohydrate 100 mg tablet 100 mg PO BID 7 Days Qty: 14 0RF Continued nitroglycerin [Nitrostat] 0.4 mg tablet, sublingual 0.4 mg SUBLINGUAL Q5M PRN (Reason: chest pain) Qty: 90 3RF multivitamin [Daily Multi-Vitamin] Tablet 1 tab PO DAILY Jardiance 10 mg tablet 10 mg PO DAILY metoprolol tartrate 100 mg tablet 100 mg PO BID Qty: 60 3RF aspirin 81 MG tablet,chewable 81 mg PO DAILY@0800 omeprazole 40 mg capsule,delayed release(DR/EC) 40 mg PO DAILY PRN (Reason: heart burn) Patient Comments: atorvastatin 20 mg tablet 20 mg PO QHS Qty: 90 3RF Held telmisartan 20 mg tablet 20 mg PO DAILY Hold Instructions: Hold for 5 days, start lower dose in consultation with PCP Discontinued amoxicillin 500 mg tablet See Rx Instructions PO .COMPLEX Qty: 8 0RF Dose Instruction: 500mg, 4 tablets, 1 hr prior to procedure PO Rx Instructions: 500mg, 4 tablets, 1 hr prior to procedure PO Referrals / Follow Up: Nitesh Jimenez MD [Med Staff - Active Staff] - Within 1 Month Nikkie Johnson MD [Med Staff - Consulting] - Within 1 Month Bret De Jesus MD [Med Staff - Active Staff] - Within 1 Month Abdiel Parker NP-C [Primary Care Provider] - Disposition Disposition (needs filled in before D/C Order can be placed): Home, Self Care Charges/Coding Visit Charges Inpatient E&M: 73636 Disch Hosp >30min
[2025-03-29 11:37] VITALS: O2SAT 90; O2SAT 95
--- NOTE | 2025-03-29 11:41 | PCM.PN.ID ---
Physical Exam Narrative Feeling well, no fever, no aches. Const alert and no apparent distress General Appearance: cooperative Resp normal air movement and clear to auscultation bilaterally Cardio regular rate and regular rhythm GI soft to palpation, non-tender and non-distended Skin no rashes or lesions noted ID ID: Route of nutrition/ use of supplements: [] Nutritional Intake: [] IV Site: [] Vicente Catheter: [] Assessment & Plan Assessment/Plan (1) Shock: PLAN: Unclear cause with high fever, ELISE, diffuse myalgias, confusion at home. Bcx neg so far. CT chest/abd/pelvis with no sign infection. Lyme neg. [place] pending. Ok for d/c home with one week po doxy. Will follow prn, d/w Dr. Borges (2) ELISE (acute kidney injury): (3) S/P AVR (aortic valve replacement) and aortoplasty:
--- NOTE | 2025-03-29 11:47 | CASEMGMT ---
Patient has order for discharge. RN CM in to discuss needs at discharge. Patient denies needs or help at discharge. Patient had no further questions or concerns.
[2025-03-29 14:08] LABS: ANTINUCLEAR ANTIBODIES DIRECT Negative (Negative)
--- NOTE | 2025-03-29 14:48 | PHA.DC_ITS ---
Pharmacy [facility] Counseling Pharmacy Service has performed discharge medication reconciliation and counseling for this patient. 1. DOXYCYCLINE 100MG PO BID X 7 DAYS 2. HOLD TELMISARTAN FOR 5 DAYS The patient's discharge medication list was reviewed for discrepancies and discrepancies were resolved. The patient was counseled on the following discharge medications and changes in medications for homegoing were reviewed. The Reason for Use, instructions for use, and potential side effects were reviewed for all new medications. The patient's questions regarding all of their medications were answered. The patient was able to verbally demonstrate an understanding of their discharge medications. Medications at Discharge Home Medications aspirin 81 mg chewable tablet 81 mg PO DAILY@0800 [facility] 07/23/14 atorvastatin 20 mg tablet 20 mg PO QHS cholesterol #90 tabs 09/30/20 nitroglycerin 0.4 mg sublingual tablet (Nitrostat) 0.4 mg sublingual Q5M PRN chest pain #90 tabs 10/03/20 omeprazole 40 mg capsule,delayed release 40 mg PO DAILY PRN heart burn 10/04/21 empagliflozin 10 mg tablet (Jardiance) 10 mg PO DAILY diabetes 11/04/23 multivitamin (Daily Multi-Vitamin tablet) 1 tab PO DAILY vitamin 11/04/23 telmisartan 20 mg tablet 20 mg PO DAILY blood pressure 05/04/24 Held on 03/29/25. Instructions: Hold for 5 days, start lower dose in consultation with PCP metoprolol tartrate 100 mg tablet 100 mg PO BID blood pressure #60 tabs 12/24/24 doxycycline monohydrate 100 mg tablet 100 mg PO BID 7 days #14 tabs 03/29/25
[2025-03-30 08:09] LABS: Cytoplasmic Ab (C-ANCA) <1:20 titer (Neg:<1:20); Perinuclear Ab (P-ANCA) <1:20 titer (Neg:<1:20)
[2025-03-31 15:08] LABS: West Nile Virus, IgG Negative (Negative); West Nile Virus, IgM Negative (Negative)
== END 2025-03-29 13:06 | disposition home or self-care (01) | DRG 871 ==
LOC: ED 03-26 01:15 → PCU 03-26 02:16 → ICU 03-26 05:15 → PCU 03-27 15:09
PROVIDERS: Internal Medicine Critical Care Medicine; Internal Medicine Infectious Disease; Internal Medicine Pulmonary Disease; Admitting Provider Internal Medicine; Emergency Provider Emergency Medicine; PCP Nurse Practitioner Family; Referring Provider Emergency Medicine; Visit Provider Internal Medicine
DX: A41.9 Sepsis, unspecified organism (principal); J96.01 Acute respiratory failure with hypoxia; R65.21 Severe sepsis with septic shock; I24.89 Other forms of acute ischemic heart disease; N17.9 Acute kidney failure, unspecified; E83.39 Other disorders of phosphorus metabolism; E11.9 Type 2 diabetes mellitus without complications; I10 Essential (primary) hypertension; I71.40 Abdominal aortic aneurysm, without rupture, unspecified; E66.812 Obesity, class 2; Z95.2 Presence of prosthetic heart valve; D69.6 Thrombocytopenia, unspecified; E78.5 Hyperlipidemia, unspecified; I35.0 Nonrheumatic aortic (valve) stenosis; F17.220 Nicotine dependence, chewing tobacco, uncomplicated; E86.0 Dehydration; K21.9 Gastro-esophageal reflux disease without esophagitis; M19.90 Unspecified osteoarthritis, unspecified site; E80.6 Other disorders of bilirubin metabolism; I95.2 Hypotension due to drugs; G47.30 Sleep apnea, unspecified; T41.295A Adverse effect of other general anesthetics, initial encounter; Q23.81 Bicuspid aortic valve; Z79.82 Long term (current) use of aspirin; Z79.899 Other long term (current) drug therapy; Z68.34 Body mass index [BMI] 34.0-34.9, adult
CPT/HCPCS: 31500; 31720; 36415; 36569; 36600; 70450; 70490; 71045; 71046; 71275; 74174; 76770; 80048; 80053; 80061; 80076; 80202; 80307; 81001; 82436; 82550; 82570; 82803; 82962; 83036; 83605; 83690; 83735; 83935; 84100; 84133; 84145; 84156; 84300; 84443; 84478; 84484; 85025; 85379; 86037; 86038; 86200; 86225; 86431; 86618; 86788; 86789; 87040; 87070; 87086; 87205; 87449; 87631; 87633; 87641; 87651; 87798; 93005; 93306; 93970; 94002; 94003; 94660; 94668; 99252; 99285; Q9957; Q9967; A4216; C8929; G0463; J0696; J2405

== ENCOUNTER 2025-04-07 18:38 | Emergency (ER) | payer MEDICARE, SELFPAY ==
[2025-04-07 18:39] VITALS: BP 167/102; PULSE 112; RESP 18; TEMP 36.8; O2SAT 99; BMI 31.8
[2025-04-07 19:40] VITALS: BP 133/84; PULSE 93; RESP 18; TEMP 36.8; O2SAT 96
[2025-04-07 20:00] VITALS: BP 126/86; PULSE 87; RESP 16; TEMP 36.8; O2SAT 97
--- NOTE | 2025-04-07 20:11 | EDS_ITS ---
HPI History of Present Illness Chief Complaint: General Illness [facility] Medical History Aortic stenosis Cardiomyopathy Abnormal echocardiogram findings without diagnosis Nonrheumatic aortic (valve) stenosis (~09/20/21) Pure hypercholesterolemia Essential hypertension Aortic root dilatation Chest pain Family history of CVA Family history of hypertension Abnormal electrocardiogram Angina pectoris Undiagnosed cardiac murmurs Bicuspid aortic valve Other retirement (current) drug therapy Home Medications ?Medication ?Instructions ?Recorded ?Last Taken ?Type aspirin 81 mg chewable tablet 81 mg PO DAILY@0800 hear t health 07/23/14 06/10/23 History atorvastatin 20 mg tablet 20 mg PO QHS cholesterol #90 tabs 09/30/20 07/30/22 Rx nitroglycerin 0.4 mg sublingual 0.4 mg sublingual Q5M PRN chest 10/03/20 Unknown Rx tablet (Nitrostat) pain #90 tabs omeprazole 40 mg capsule,delayed 40 mg PO DAILY PRN he art burn 10/04/21 Unknown History release empagliflozin 10 mg tablet 10 mg PO DAILY diabetes Unknown History (Jardiance) multivitamin (Daily Multi-Vitamin 1 tab PO DAILY vitam in 11/04/23 Unknown History tablet) telmisartan 20 mg tablet 20 mg PO DAILY blood pressur e 05/04/24 Unknown History metoprolol tartrate 100 mg tablet 100 mg PO BID blood pressure #60 12/24/24 Unknown Rx tabs Allergy/AdvReac Type Severity Reaction Status Date / Time No Known Allergies Allergy Verified 04/07/25 18:40 Family History Father CVA (cerebral vascular accident) Hypertension Skin cancer Mother Hypertension Breast cancer Skin cancer Brother Hypertension Sister Hypertension Other Family history of CVA Family history of hypertension Surgical History S/P ascending aortic aneurysm repair S/P AVR (aortic valve replacement) and aortoplasty History of surgical biopsy (~07/2022) History of tonsillectomy and adenoidectomy History of bursectomy History of shoulder surgery History of cataract surgery Social History household members: spouse current occupational status: retired 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, 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 current occupational exposures/hazards: Yes (crop mendez) Smoking Status: Never smoker Smokeless tobacco user: chewing tobacco second hand exposure: Yes alcohol intake: never substance use type: does not use caffeine: Yes Type: coffee Number of servings: 1 and tea Number of servings: 2 EXAM Physical Exam Const Vital Signs: 04/07/25 18:39 04/07/25 19:30 04/07/25 19:40 Temperature 98.2 F 98.3 F Temperature Source Oral Oral Pulse Rate 112 H 93 Respiratory Rate 18 18 Respiratory Effort Normal Respiratory Pattern Normal Blood Pressure 167/102 H 133/84 H Blood Pressure Mean 123 100 Pulse Ox 99 96 Oxygen Delivery Method Room Air Room Air 04/07/25 20:00 04/07/25 21:00 04/07/25 22:00 Temperature 98.3 F 98.3 F 98.3 F Temperature Source Oral Oral Oral Pulse Rate 87 78 77 Respiratory Rate 16 16 15 Respiratory Effort Respiratory Pattern Blood Pressure 126/86 H 125/88 H 123/87 H Blood Pressure Mean 99 100 99 Pulse Ox 97 97 98 Oxygen Delivery Method Room Air Room Air Room Air 04/07/25 23:00 Temperature 98.3 F Temperature Source Oral Pulse Rate 85 Respiratory Rate 16 Respiratory Effort Respiratory Pattern Blood Pressure 126/87 H Blood Pressure Mean 100 Pulse Ox 100 Oxygen Delivery Method Room Air MDM MDM MDM Narrative Medical decision making narrative: HISTORY OF PRESENT ILLNESS: Chief complaint: Diaphoresis, heartburn, elevated blood pressure 69-year-old male history of hyperlipidemia, aortic aneurysm, hypertension, type 2 diabetes presents concern for the above chief complaint. He states this began tonight. Notes burning. Epigastric pain. Burning is described as pressure he points to his chest. Denies shortness of breath. Is not exertional. Denies leg swelling. Denies cough fever or chills. No urinary complaints. No skin rashes. No history of CAD or heart attacks. Notes family history of cardiovascular disease in his mother and father in their late 60s. The patient denies recent surgery in the last 4 weeks or immobilization in the last 3 days, denies previous diagnosis of DVT or PE, hemoptysis, unilateral leg swelling or malignancy with treatment the last 6 months or palliative. No estrogen use noted. Patient denies sudden onset of pain, no tearing sensation, no migratory symptoms, no new numbness, weakness or loss of sensation. Patient denies family history or personal history of Connective tissue disorders (Marfan's Syndrome, Cem Danlos etc) REVIEW OF SYSTEMS: Pertinent positives: Heartburn/chest pain Pertinent negatives: Shortness of breath, syncope, fever PHYSICAL EXAM: Nursing triage notes reviewed, Vital signs reviewed Constitutional: please see [facility] HENT: MMM Eyes: Pupils equal round and reactive to light, Extraocular muscles intact Neck: No stridor, no JVD, full neck ROM Lungs: Clear to auscultation, No wheezing or rales. No increased work of breathing, no conversational dyspnea, no accessory muscle use, no nasal flaring. No respiratory distress noted Heart: Regular rate and rhythm, No murmurs, No rubs and No gallops, 2+ distal pulses (radial, femoral, posterior tibial) in all extremities Abdomen: Soft, there is no tenderness, rigidity, rebound or guarding, no obvious peritoneal signs, no palpable pulsatile abdominal masses, no auscultated abdominal bruit : No CVAT Extremities: No edema Neuro: No new focal neurological deficits, cranial nerves II through XII intact, 5/5 strength in all present extremities. Intact sensation to light touch in all present extremities, 2+ reflexes bilateral patella tendons. Skin: No rash or lesions noted MEDICAL DECISION MAKING: Chief Complaint: please see HPI External records reviewed: Reviewed prior EKG. Reviewed recent ICU admission after being intubated for high fever and leukocytosis and ELISE of unknown origin Factors affecting care: none Social determinants of health: none History obtained from others: none Consults: none [facility] Narrative: The patient's initial triage blood pressure was 167/102 and he was tachycardic at 112 otherwise afebrile and nontoxic-appearing. He was in the waiting room for approximately 1 hour. Repeat vital signs once he was in the ED was 126/86, pulse of 87, still afebrile. I considered the following differential diagnosis: ACS, arrhythmia, anemia, electro disturbance, pneumothorax, PE I obtained a broad lab and imaging workup to further determine if the patient was suffering from a life-threatening etiology. Initially treat the patient with IV Pepcid given report of burning/epigastric/chest pain ALL IMAGES (IF OBTAINED) HAVE BEEN PERSONALLY REVIEWED AND INTERPRETED BY MYSELF. EKG with normal sinus rhythm rate 75, lateral T wave inversions noted. Similar to prior EKG from March 2025 CBC without leukocytosis, severe anemia, no thrombocytopenia. Initial troponin 33, delta troponin 30. Awaiting third troponin Lactate is wnl indicating no end-organ hypoperfusion and/or hypoxia. BMP without significant electrolyte abnormalities, there is noted to be a marginal metabolic acidosis with a bicarb of 20.4 lab reference range 21-32. No sign of an anion gap to suggest endorgan hypoperfusion, noted baseline kidney function CBC without leukocytosis, severe anemia, no thrombocytopenia. Lipase is wnl indicating no pancreatic inflammation. I have personally reviewed the patient's chest x-ray. Chest x-ray is unremarkable for pulmonary edema, pneumothorax, pneumonia or focal cardiopulmonary abnormality. The patient and/or family, caregivers express understanding. The patient and/or family, caregivers agrees with the plan. Shared decision making: I will have a discussion with the patient and or visitors regarding risk/benefits of further testing or admission. They will be made aware of of the risk/benefits inherent in this decision they will be given the opportunity to voice understanding. Total critical care time today provided was at least 0 minutes. This excludes separately billable procedures. Critical care time (if documented) is secondary to the patient having high probability of clinically significant/life threatening deterioration in the patient's condition which required my urgent intervention. Impression: 1. Epigastric abdominal pain 2. Hypertension Dispo: pending delta troponin. Signed out to overnight physician This note was generated with [employer] dictation software. It may contain incorrect words, spelling, and punctuation that were not noted in review of the chart prior to signing. Lab Data Labs: Laboratory Results - last 24 hr 04/07/25 04/07/25 04/07/25 19:52 20:53 21:55 WBC 8.7 RBC 5.02 Hgb 15.5 Hct 46.5 MCV 92.6 MCH 30.9 MCHC 33.3 RDW Std Deviation 43.1 RDW Coeff of Feli 12.7 Plt Count 289 MPV 10.3 Immature Gran % (Auto) 0.300 Neut % (Auto) 68.5 Lymph % (Auto) 20.6 Jennings % (Auto) 6.7 Eos % (Auto) 2.6 Baso % (Auto) 1.3 H Absolute Neuts (auto) 5.9 Absolute Lymphs (auto) 1.79 Nucleated RBC % 0 Sodium 141 Potassium 4.1 Chloride 107 Carbon Dioxide 20.4 L Anion Gap 14 BUN 20 H Creatinine 1.23 H Estim Creat Clear Calc 73.52 Est GFR (MDRD) Non-Af 64 BUN/Creatinine Ratio 16.3 Glucose 99 Lactic Acid 1.5 Calcium 9.0 Total Bilirubin 0.57 AST 34 ALT 34 Alkaline Phosphatase 89 Troponin T High Sens 33 H D Troponin T Hi Sens 2 Hr 30 H Total Protein 6.7 Albumin 4.0 Globulin 2.7 Albumin/Globulin Ratio 1.5 Lipase 45 Radiography Diagnostic Testing: Clinical Impression(s) from Imaging Studies Chest X-Ray 04/07/25 20:50 IMPRESSION: Cardiomegaly. No evidence of acute pulmonary disease. Reading Location: [id number] Discharge Plan Triage Chief Complaint: General Illness ED Provider: Timoteo Tran Dx/Rx/DC Orders Clinical Impression: Abdominal pain, acute, epigastric Instructions: ED Epigastric Pain Uncertain Cause Prescriptions: No Action nitroglycerin [Nitrostat] 0.4 mg tablet, sublingual 0.4 mg SUBLINGUAL Q5M PRN (Reason: chest pain) Qty: 90 3RF multivitamin [Daily Multi-Vitamin] Tablet 1 tab PO DAILY Jardiance 10 mg tablet 10 mg PO DAILY telmisartan 20 mg tablet 20 mg PO DAILY metoprolol tartrate 100 mg tablet 100 mg PO BID Qty: 60 3RF aspirin 81 MG tablet,chewable 81 mg PO DAILY@0800 omeprazole 40 mg capsule,delayed release(DR/EC) 40 mg PO DAILY PRN (Reason: heart burn) Patient Comments: atorvastatin 20 mg tablet 20 mg PO QHS Qty: 90 3RF Primary Care Provider: Alida Parker Referrals: Friend,Mauri, [Med Staff - Active Staff] - Activity Restrictions/Additional Instructions: Thank you for trusting us with your care today! Your labs and images are reassuring. Specifically no sign of sepsis. No sign of damage to your heart. The cause of your symptoms is unclear. I suspect you have a component of reflux or potentially peptic ulcer disease Please take Tylenol (2 pills, 650 mg) every 6 hours as needed for pain and fever control. Please continue taking already prescribed omeprazole daily. Please return to the emergency department if your symptoms change or worsen. Please follow with your primary care physician and Gastroenterology (Dr. Egan) for further outpatient evaluation and management. Print Language: Somali Disposition Disposition: Home, Self Care
--- NOTE | 2025-04-07 20:39 | EKG12_ITS ---
Test Reason : HTN Blood Pressure : */* mmHG Vent. Rate : 75 BPM Atrial Rate : 75 BPM P-R Int : 188 ms QRS Dur : 92 ms QT Int : 430 ms P-R-T Axes : 52 -9 144 degrees QTcB Int : 480 ms Normal sinus rhythm Possible Left atrial enlargement Left ventricular hypertrophy with repolarization abnormality ( R in aVL , Romhilt-Coppola ) QTcB >= 480 msec Abnormal ECG Confirmed by DALJIT EMERSON, BENITA ([id number]), supervising editor news reel CRISTO BAH ([id number]) on 04/08/2025 8:42:07 AM Referred By: Confirmed By: BENITA BOCANEGRA MD
--- NOTE | 2025-04-07 20:50 | RAD_ITS ---
PROCEDURE: CHEST 1 VIEW (PORTABLE) 04/07/2025 REASON FOR EXAM: CHEST PAIN TECHNIQUE: Frontal view of the chest. COMPARISON: 03/26/2025 FINDINGS: Lungs/Pleura: Clear. No pneumothorax or pleural effusion. Heart/Mediastinum: Mild cardiomegaly. Aortic valve prosthesis. Bones/Soft tissues: Mild degenerative changes of the spine. Sternotomy wires. Right humeral head anchor screws. Chronic fracture deformity of the right midclavicle. RAD/Chest 1 View (Portable) IMPRESSION: Cardiomegaly. No evidence of acute pulmonary disease. Reading Location: [id number]
[2025-04-07 20:59] LABS: Hematocrit 46.5 % (40-54); Hemoglobin 15.5 g/dL (13.0-16.5); Immature Granulocytes Count 0.030 X10^3/uL (0.0-0.0); Mean Corp Hgb Conc 33.3 g/dL (32-36); Mean Corpuscular Volume 92.6 fL (80-94); Mean Platelet Vol. 10.3 fl (6.2-12.0); NRBC Flagged by Analyzer 0 % (0-5); Platelet Count 289 K/mm3 (150-450); RBC Distribution Width CV 12.7 % (11.6-14.6); RBC Distribution Width SD 43.1 fl (35.1-43.9); Red Blood Count 5.02 M/mm3 (4.6-6.2); White Blood Count 8.7 K/mm3 (4.4-11.0)
[2025-04-07 21:00] VITALS: BP 125/88; PULSE 78; RESP 16; TEMP 36.8; O2SAT 97
[2025-04-07] MEDS: Famotidine 200 MG/20 ML MDV 20 MG in 0.9% Normal Saline (Pres. free 8 ML 300 MG IV (21:22)
[2025-04-07 21:48] LABS: Lipase 45 U/L (13-75); Troponin T High Sensitivity 33 ng/L (<=22)
[2025-04-07 21:52] LABS: AST(SGOT) 34 U/L (<=37); Alanine Aminotransfer ALT/SGPT 34 U/L (<=46); Albumin, Serum 4.0 g/dL (3.4-4.8); Alkaline Phosphatase 89 U/L (40-129); Anion Gap 14 (5-15); BUN 20 mg/dL (4-19); BUN/Creat Ratio 16.3 RATIO (10-20); Calcium,Total 9.0 mg/dL (7.6-11.0); Carbon Dioxide 20.4 mmol/L (21.0-32.0); Chloride 107 mmol/L (98-108); Estimated Creatinine Clearance 73.52 ml/min (50-250); Globulin 2.7 g/dL (2.2-4.2); Glucose 99 mg/dL (70-99); Potassium 4.1 mmol/L (3.3-5.1)
[2025-04-07 22:00] VITALS: BP 123/87; PULSE 77; RESP 15; TEMP 36.8; O2SAT 98
[2025-04-07 22:45] LABS: Troponin T High Sens 2 HR 30 ng/L (<=22)
[2025-04-07 23:00] VITALS: BP 126/87; PULSE 85; RESP 16; TEMP 36.8; O2SAT 100
[2025-04-08] VITALS: BP 114/89; PULSE 80; RESP 18; TEMP 36.8; O2SAT 97
[2025-04-08 00:32] LABS: Troponin T High Sens 4 HR 33 ng/L (<=22)
[2025-04-08 01:00] VITALS: BP 125/81; PULSE 83; RESP 17; TEMP 36.8; O2SAT 98
[2025-04-08 01:44] VITALS: BP 125/81; PULSE 85; RESP 16; TEMP 36.8; O2SAT 98
== END 2025-04-08 01:53 | disposition home or self-care (01) ==
PROVIDERS: Emergency Provider Emergency Medicine; PCP Nurse Practitioner Family; Visit Provider Emergency Medicine
DX: R10.13 Epigastric pain (principal); E11.9 Type 2 diabetes mellitus without complications; E78.00 Pure hypercholesterolemia, unspecified; I10 Essential (primary) hypertension; Z79.82 Long term (current) use of aspirin; Z79.899 Other long term (current) drug therapy; Z95.5 Presence of coronary angioplasty implant and graft
CPT/HCPCS: 71045; 80053; 83605; 83690; 84484; 85025; 93005; 96374; 99283; A4216

== ENCOUNTER → 2025-04-19 | Outpatient (CLI) | payer MEDICARE, SELFPAY ==
[2025-04-19 12:21] LABS: Creatinine, Urine (random) 58.70 mg/dL (39.00-259.00); Microalbumin,Random Urine < 12.0 mg/L (<20 mg/L)
== END | disposition home or self-care (01) ==
LOC: BFHLAB 09:44
PROVIDERS: PCP Nurse Practitioner Family; Visit Provider Nurse Practitioner Family
DX: E11.69 Type 2 diabetes mellitus with other specified complication (principal); I10 Essential (primary) hypertension
CPT/HCPCS: 82043; 82570

== ENCOUNTER 2025-06-17 09:00 | Day surgery (SDC) | payer MEDICARE, SELFPAY ==
--- NOTE | 2025-06-10 17:52 | PAT.ANESEVAL ---
Pre-Assessment Diagnosis/Proposed Procedure Planned Operative Procedure(s): EGD Anesthesia History Anesthesia History - insurance investigator: Anesthesia History - insurance investigator Hx Hospitalization Yes: 04-02 muscle pains-ED, 06/10/25 14:52 fever of unknown orgin Any Problems With Anesthesia No 06/10/25 14:52 Cholinesterase deficiency No 06/10/25 14:52 You/Your Family Experience No 06/10/25 14:52 fever (hyperthermia) with Relationship Recent Exposure to Contagious No 04/16/17 11:52 Disease Does patient have nerve No 06/10/25 14:52 stimulator Patient instructed to have device shut off --Does patient have Pacemaker or ICD? When Was Last Pacemaker Check QUESTION #4 FULL TEXT: You/Your Family Experience fever (hyperthermia) with Anesthesia Last Oral Intake Last Oral intake: Last Oral Intake NPO since Meds taken in AM with sips of water? Meds patient instructed to take am of surgery PONV PONV - insurance investigator: PONV - insurance investigator Female No 06/10/25 14:52 HX of Motion Sickness No 06/10/25 14:52 HX of N/V After Surgery No 06/10/25 14:52 Non-Smoker Yes 06/10/25 14:52 Duration of Surgery greater No 06/10/25 14:52 than 60 minutes Number of Risk Factors 1 06/10/25 14:52 PONV Score Low Risk 06/10/25 14:52 Height & Weight Height & Weight: Anesthesia: Height & Weight Height 6 ft 1 in 04/13/25 09:31 Respiratory Assessment Respiratory Assessment - insurance investigator: Respiratory Tract Infection Hx - insurance investigator Hx Respiratory Tract Infection No 06/10/25 14:52 STOP Sleep Apnea STOP Sleep Apnea - insurance investigator: STOP Sleep Apnea - insurance investigator Hx Hypertension Yes 06/10/25 14:52 Hx Sleep Apnea No 06/10/25 14:52 CPAP BIPAP Do you snore loudly (louder Yes 06/10/25 14:52 than talking or can be heard Do you often feel tired/ Yes 06/10/25 14:52 fatigued/ sleepy during daytime? Has anyone observed you stop Yes 06/10/25 14:52 breathing during sleep? STOP Results Positive 06/10/25 14:52 QUESTION #5 FULL TEXT : Do you snore loudly (louder than talking or can be heard through closed doors)? 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 Specify any problems Hx of Preganancy in last 3 N/A 06/10/25 14:52 Months Nurse Filling Out Transfusion JZOLLINGE 06/10/25 14:52 & Questions: Date: 06/10/25 06/10/25 14:52 Time: 14:55 06/10/25 14:52 Patient unable to answer at this time (ie. confused, unrespo /Reproduction History /Reproductive History - insurance investigator: /Reproductive Hx- insurance investigator Hx Now No 06/10/25 14:52 Gestational Age (in weeks): EDC: Hx Hx Para Hx Section SAB No 06/10/25 14:52 [facility] Medical History (Updated 06/10/25 @ 14:52 by Mary Carmen Hylton) History of hiatal hernia Gastric reflux Heartburn Non-smoker Cardiology follow-up encounter History of stress test History of echocardiogram Aortic stenosis Cardiomyopathy Abnormal echocardiogram findings without diagnosis Nonrheumatic aortic (valve) stenosis (~09/20/21) Pure hypercholesterolemia Essential hypertension Aortic root dilatation Chest pain Family history of CVA Family history of hypertension Abnormal electrocardiogram Angina pectoris Undiagnosed cardiac murmurs Bicuspid aortic valve Other manager intermediate (current) drug therapy Home Medications ?Medication ?Instructions ?Recorded ?Last Taken ?Type aspirin 81 mg chewable tablet 81 mg PO DAILY@0800 heart health 07/23/14 06/10/23 History atorvastatin 20 mg tablet 20 mg PO QHS cholesterol #90 tabs 09/30/20 07/30/22 Rx nitroglycerin 0.4 mg sublingual 0.4 mg sublingual Q5M PRN chest 10/03/20 Unknown Rx tablet (Nitrostat) pain #90 tabs empagliflozin 10 mg tablet 10 mg PO DAILY diabetes 11/04/23 Unknown History (Jardiance) multivitamin (Daily Multi-Vitamin 1 tab PO DAILY vitamin 11/04/23 Unknown History tablet) famotidine 40 mg tablet 40 mg PO QHS #30 tabs 04/13/25 Unknown Rx pantoprazole 40 mg tablet,delayed 40 mg PO BID #60 tabs 04/13/25 Unknown Rx release ivabradine 5 mg tablet 5 mg PO BID 06/10/25 Unknown History metoprolol tartrate 100 mg tablet 100 mg PO BID blood pressure 06/10/25 Unknown History telmisartan 80 mg tablet 80 mg PO DAILY 06/10/25 Unknown History Allergy/AdvReac Type Severity Reaction Status Date / Time No Known Allergies Allergy Verified 06/10/25 14:40 Family History Father CVA (cerebral vascular accident) Hypertension Skin cancer Mother Hypertension Breast cancer Skin cancer Brother Hypertension Sister Hypertension Other Family history of CVA Family history of hypertension Surgical History (Updated 06/10/25 @ 14:52 by Mary Carmen Hylton) Hx of colonoscopy S/P ascending aortic aneurysm repair S/P AVR (aortic valve replacement) and aortoplasty History of surgical biopsy (~07/2022) History of tonsillectomy and adenoidectomy History of bursectomy History of shoulder surgery History of cataract surgery Social History household members: spouse current occupational status: retired 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 Normal sinus rhythm. LVH with repolarization abnormality. Stress test pertinent findings: April 2024. Negative for ischemia at 7.2 METS. Severe asymmetric LVH. Echo (EF%) pertinent findings: 03/26/2025. EF is 70%. Normal PA pressure. Bioprosthetic aortic valve appears to be functioning normally. Mean peak gradient is 16 mmHg. Heart catheterization pertinent findings: June 10, 2023. Normal coronary arteries. Aortic valve stenosis is severe. EF of 65%. (Patient underwent a AVR on 07/29/2023) Consult pertinent findings: April 13, 2025. Floyd SALAZAR. 1. Cardiomyopathy-asymmetric. 2. Aortic root dilation-mildly dilated. May be related to bicuspid aortic valve and aortic valve stenosis. 3. Hypertension?stable. Continue with metoprolol. 4. Status post AVR and aortoplasty on . Stable. Continue with antibiotic prophylaxis. 5. Status post ascending aortic aneurysm repair-on 07/29/2023. Stable. Continue with blood pressure control with metoprolol. Recommendation Anesthesia Recommendation Anesthesia recommendation: OPTIMIZED for anesthesia
--- NOTE | 2025-06-17 09:11 | PRE.ANES_ITS ---
ASA Classification* ASA Classification ASA Classification: 3 Assessment & Plan Anesthesia* Anesthesia Assessment Anesthesia Assessment: Discussed sedation and/or anesthesia options, risks, benefits, and alternatives with patient/parents/legal guardian/POA. Questions invited. The patient/parents/legal guardian/POA seems to understand and agrees to proceed with anesthesia plan. Reviewed the physical assessment, medical history, allergy history and patient home medications list prior to surgery/procedure/anesthetic and documented any changes. Performed airway and anesthesia risk assessments. Anesthesia Type Anesthesia Type: MAC Anesthesia Focused Assessment* Airway Assessment Mouth opens: >3 cm Mallampati Score: II Labs Anesthesia Preop lab: CBC WBC, (4.4-11.0) 8.7 K/mm3 04/07/25, :52 RBC, (4.6-6.2) 5.02 M/mm3 04/07/25, :52 Hgb, (13.0-16.5) 15.5 g/dL 04/07/25, : Hct, (40-54) 46.5 % 04/07/25, : Plt Count, (150-450) 289 K/mm3 04/07/25, 19:52 CHEMISTRY Potassium, (3.3-5.1) 4.1 mmol/L 04/07/25, :52 Sodium, (133-145) 141 mmol/L 04/07/25, 19:52 Magnesium, (1.5-2.2) 2.0 mg/dL 03/27/25, 03:10 Phosphorus, (2.7-4.5) 3.8 mg/dL 03/27/25, 03:10 BUN, (4-19) 20 mg/dL H 04/07/25, 19:52 Creatinine, (0.70-1.20) 1.23 mg/dL H 04/07/25, 19:52 Glucose, (70-99) 99 mg/dL 04/07/25, 19:52 POC Glucose, (74-106) 134 mg/dL H 03/29/25, 06:07 TSH, (0.300-4.200) 3.110 uIU/mL 03/26/25, 08:00 COAG PT, (11.7-14.9) 14.1 SECONDS 05/21/23, 09:38 Pre-Assessment Diagnosis/Proposed Procedure Planned Operative Procedure(s): EGD Anesthesia History 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 When Was Last Pacemaker Check QUESTION #4 FULL TEXT: You/Your Family Experience fever (hyperthermia) with Anesthesia Last Oral Intake Last Oral intake: Last Oral Intake NPO since Meds taken in AM with sips of water? Meds patient instructed to take am of surgery PONV PONV - shaping machine operator: PONV - shaping machine operator Female No 06/10/25 14:52 HX of Motion Sickness No 06/10/25 14:52 HX of N/V After Surgery No 06/10/25 14:52 Non-Smoker Yes 06/10/25 14:52 Duration of Surgery greater No 06/10/25 14:52 than 60 minutes Number of Risk Factors 1 06/10/25 14:52 PONV Score Low Risk 06/10/25 14:52 Height & Weight Height & Weight: Anesthesia: Height & Weight Height 6 ft 1 in 04/13/25 09:31 Respiratory Assessment Respiratory Assessment - shaping machine operator: Respiratory Tract Infection Hx - shaping machine operator Hx Respiratory Tract Infection No 06/10/25 14:52 STOP Sleep Apnea STOP Sleep Apnea - shaping machine operator: STOP Sleep Apnea - shaping machine operator Hx Hypertension Yes 06/10/25 14:52 Hx Sleep Apnea No 06/10/25 14:52 CPAP BIPAP Do you snore loudly (louder Yes 06/10/25 14:52 than talking or can be heard Do you often feel tired/ Yes 06/10/25 14:52 fatigued/ sleepy during daytime? Has anyone observed you stop Yes 06/10/25 14:52 breathing during sleep? STOP Results Positive 06/10/25 14:52 QUESTION #5 FULL TEXT : Do you snore loudly (louder than talking or can be heard through closed doors)? 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 Specify any problems Hx of Preganancy in last 3 N/A 06/10/25 14:52 Months Nurse Filling Out Transfusion JZOLLINGE 06/10/25 14:52 & Questions: Date: 06/10/25 06/10/25 14:52 Time: 14:55 06/10/25 14:52 Patient unable to answer at this time (ie. confused, unrespo /Reproduction History /Reproductive History - shaping machine operator: /Reproductive Hx- shaping machine operator Hx Now No 06/10/25 14:52 Gestational Age (in weeks): EDC: Hx Hx Para Hx Section SAB No 06/10/25 14:52 Active Medications Active Medications: Current Medications Generic Name Dose Route Start Last Admin Trade Name Freq PRN Reason Stop Dose Admin Lactated Ringer's 1,000 mls @ 15 mls/hr 06/17/25 09:15 IV .Q48H ALTON PFSH Medical History History of hiatal hernia Gastric reflux Heartburn Non-smoker Cardiology follow-up encounter History of stress test History of echocardiogram Aortic stenosis Cardiomyopathy Abnormal echocardiogram findings without diagnosis Nonrheumatic aortic (valve) stenosis (~09/20/21) Pure hypercholesterolemia Essential hypertension Aortic root dilatation Chest pain Family history of CVA Family history of hypertension Abnormal electrocardiogram Angina pectoris Undiagnosed cardiac murmurs Bicuspid aortic valve 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 Home Medications ?Medication ?Instructions ?Recorded ?Last Taken ?Type aspirin 81 mg chewable tablet 81 mg PO DAILY@0800 hear t health 07/23/14 06/10/23 History atorvastatin 20 mg tablet 20 mg PO QHS cholesterol #90 tabs 09/30/20 07/30/22 Rx nitroglycerin 0.4 mg sublingual 0.4 mg sublingual Q5M PRN chest 10/03/20 Unknown Rx tablet (Nitrostat) pain #90 tabs empagliflozin 10 mg tablet 10 mg PO DAILY diabetes Unknown History (Jardiance) multivitamin (Daily Multi-Vitamin 1 tab PO DAILY vitam in 11/04/23 Unknown History tablet) famotidine 40 mg tablet 40 mg PO QHS #30 tabs Unknown Rx pantoprazole 40 mg tablet,delayed 40 mg PO BID #60 tab s 04/13/25 Unknown Rx release ivabradine 5 mg tablet 5 mg PO BID 06/10/25 Unknown History metoprolol tartrate 100 mg tablet 100 mg PO BID blood pressure 06/10/25 Unknown History telmisartan 80 mg tablet 80 mg PO DAILY 06/10/25 Unkn own History Allergy/AdvReac Type Severity Reaction Status Date / Time No Known Allergies Allergy Verified 06/10/25 14:40 Family History Father CVA (cerebral vascular accident) Hypertension Skin cancer Mother Hypertension Breast cancer Skin cancer Brother Hypertension Sister Hypertension Other Family history of CVA Family history of hypertension Surgical History Hx of colonoscopy S/P ascending aortic aneurysm repair S/P AVR (aortic valve replacement) and aortoplasty History of surgical biopsy (~07/2022) History of tonsillectomy and adenoidectomy History of bursectomy History of shoulder surgery History of cataract surgery Social History household members: spouse current occupational status: retired 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
[2025-06-17 09:28] VITALS: BP 139/91; PULSE 53; RESP 18; TEMP 36.3; O2SAT 100; BMI 32.5
[2025-06-17] MEDS: Lactated Ringers 1,000 ML 15 ML IV (09:30)
--- NOTE | 2025-06-17 09:57 | PCM.HP.STD ---
HPI - General General Date of Admission: 06/17/25 Date of Service: 06/17/25 Chief Complaint: gerd HPI Narrative MARTIN ELLSWORTH, is a 69 M who presents [Chief Complaint: Heartburn Details: 03.26.25 [facility] ER for nondescriptive weakness. Admitted to ICU, developed 105f temp, treated with multiple antibiotics for unknown source of infection. Discharged home 03.29.25, antibiotics completed this Saturday, April 12. 04.08.25 [facility] ER visit for diaphoresis, heartburn, and elevated blood pressure; treated w/IV famotidine, scheduled with [facility] and sent home. He reports midsternal heartburn with accompanied sinus drainage, occasional cough, and throat clearing, and increased increased belching. He states that he sleeps with his head elevated in reclining chair. He uses snuff tobacco, about 1 can every 2 to 3 days. He rarely drinks alcohol, has limited caffeine consumption, and denies illicit drug use. He reports having taken omeprazole for 2 years since his aortic valve replacement surgery. He avoids spicy foods, but can tolerate some tomato based foods. 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 Home Medications ?Medication ?Instructions ?Recorded ?Last Taken ?Type aspirin 81 mg chewable tablet 81 mg PO DAILY@0800 heart health 07/23/14 06/12/25 History atorvastatin 20 mg tablet 20 mg PO QHS cholesterol #90 tabs 09/30/20 06/16/25 Rx nitroglycerin 0.4 mg sublingual 0.4 mg sublingual Q5M PRN chest 10/03/20 Unknown Rx tablet (Nitrostat) pain #90 tabs empagliflozin 10 mg tablet 10 mg PO DAILY diabetes 11/04/23 06/12/25 History (Jardiance) multivitamin (Daily Multi-Vitamin 1 tab PO DAILY vitamin 11/04/23 06/16/25 History tablet) famotidine 40 mg tablet 40 mg PO QHS #30 tabs 04/13/25 06/16/25 Rx pantoprazole 40 mg tablet,delayed 40 mg PO BID #60 tabs 04/13/25 06/17/25 Rx release ivabradine 5 mg tablet 5 mg PO BID 06/10/25 06/17/25 History metoprolol tartrate 100 mg tablet 100 mg PO BID blood pressure 06/10/25 06/17/25 History telmisartan 80 mg tablet 80 mg PO DAILY 06/10/25 06/17/25 History Allergy/AdvReac Type Severity Reaction Status Date / Time No Known Allergies Allergy Verified 06/17/25 09:26 Family History Father CVA (cerebral vascular accident) Hypertension Skin cancer Mother Hypertension Breast cancer Skin cancer Brother Hypertension Sister Hypertension Other Family history of CVA Family history of hypertension Surgical History Hx of colonoscopy S/P ascending aortic aneurysm repair S/P AVR (aortic valve replacement) and aortoplasty History of surgical biopsy (~07/2022) History of tonsillectomy and adenoidectomy History of bursectomy History of shoulder surgery History of cataract surgery Social History household members: spouse current occupational status: retired 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, 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 current occupational exposures/hazards: Yes (crop mendez) Smoking Status: Never smoker Smokeless tobacco user: chewing tobacco second hand exposure: Yes alcohol intake: never substance use type: does not use caffeine: Yes Type: coffee Number of servings: 1 and tea Number of servings: 2 ROS Constitutional Constitutional: Denies fatigue, fever(s), poor appetite, weight gain or weight loss Gastrointestinal Gastrointestinal: Denies belching, bloating, change in bowel habits, change in stool character, chewing difficulty, coffee ground emesis, constipation, cramping, diarrhea, dyspepsia, dysphagia, early satiety, excessive flatus, fecal incontinence, heartburn, hematemesis, hematochezia, hemorrhoids, loose stools, melena, nausea, odynophagia, rectal bleeding, tenesmus, vomiting or weight changes Vital Signs Vital Signs Vital Signs: 06/17/25 09:28 06/17/25 09:28 Temperature 97.4 F L Temperature Source Temporal Pulse Rate 53 L Respiratory Rate 18 Respiratory Pattern Normal Blood Pressure 139/91 H Blood Pressure Mean 107 Blood Pressure Source Monitor Blood Pressure Position Semi-Fowlers Blood Pressure Location Right Arm Pulse Ox 100 Oxygen Delivery Method Room Air Weight Weight: 246 lb 14.684 oz Body Mass Index (BMI) 32.5 Physical Exam Const alert, oriented x3, no apparent distress and healthy appearing General Appearance: cooperative GI normal to inspection, nondistended, normoactive bowel sounds, soft to palpation, non-tender and non-distended Percussion: normal to percussion Rectal Exam: deferred Assessment & Plan Assessment/Plan (1) GERD (gastroesophageal reflux disease): QUALIFIERS: Esophagitis presence: esophagitis presence not specified Qualified Code(s): K21.9 - Gastro-esophageal reflux disease without esophagitis PLAN: Plan Assessment and Plan Assessment and Plan (1) GERD (gastroesophageal reflux disease): Status: Acute Qualifiers: Esophagitis presence: esophagitis presence not specified Qualified Code(s): K21.9 - Gastro-esophageal reflux disease without esophagitis Medications: New pantoprazole take 30minutes before eating breakfast and supper 40 mg PO BID 60 tabs 1RF famotidine 40 mg PO QHS 30 tabs 5RF Discontinued omeprazole Discontinued Reason: Order Changed 40 mg PO DAILY PRN heart burn Plan MARTIN ELLSWORTH, is a 69 M who presents to the office today for establishment with [facility] regarding concerns of heartburn. Discussed care plan with him and his present for exam. stop omeprazole add pantoprazole 40mg PO twice daily, 30minutes before eating breakfast and supper add famotidine 40mg PO QHS schedule EGD office FU 2wks after endoscopy ]
--- NOTE | 2025-06-17 10:00 | EGD_PTH ---
PATIENT: MARTIN ELLSWORTH LOC: EN U#:[id number] AGE/SX: 69/M ROOM: RE06/17/[address]: Dr. Mauri Egan DO : 1955 BED: DIS: 06/17/2025 SPEC #: [id number] RECD: 06/17/25 11:53 STATUS: RUPERTO REQ #: [id number] ENRICO: 06/17/25 10:[address]: Mauri Egan DEPT: SURGICAL PATHOLOGY RECD BY: Jesus Flores ENTERED: 06/17/25 13:48 SP TYPE: EGD BIOPSY OT DR: Alida Parker, GUM MAKER-C Tissues: A - Esophagus, NOS Procedures: Surgery Specimen Level IV HEADER OPERATION: EGD with biopsy PRE-OP DIAGNOSIS: GERD TISSUE SUBMITTED: A- Distal esophagus biopsy MICROSCOPIC DIAGNOSIS A. Distal esophagus, biopsy: * Oxyntocardiac type mucosa with mild chronic inflammation, negative for goblet cells * Squamous epithelium is not identified MICROSCOPIC DESCRIPTION Slides are reviewed. GROSS DESCRIPTION A. Received in fixative is one container labeled with the patient's name and designated Distal esophagus biopsy. The specimen consists of three irregular fragments of andrade tissue that measure 0.2 to 0.5 cm. The specimen is totally submitted in one cassette. ME 06/17/2025 CPT:63810
[2025-06-17 10:55] VITALS: BP 139/91; BP 80/62; PULSE 60; RESP 18; TEMP 36.2; O2SAT 98
--- NOTE | 2025-06-17 10:56 | OP.EGD_ITS ---
Patient Name: Bennie Henson Procedure Date: 06/17/2025 10:29 AM Date of : 1955 Age: 69 Procedure: Upper GI endoscopy Indications: Functional Dyspepsia, Heartburn, Suspected esophageal reflux Providers: Mauri Egan DO Referring MD: Morris Mathew Medicines: Monitored Anesthesia Care Patient Profile: This is a 69 year old male. Refer to note in patient chart for documentation of history and physical. Patient has symptoms of acute dyspepsia and acute heartburn. Complications: No immediate complications. Procedure: Pre-Anesthesia Assessment: - Prior to the procedure, a History and Physical was performed, and patient medications and allergies were reviewed. The patient is competent. The risks and benefits of the procedure and the sedation options and risks were discussed with the patient. All questions were answered and informed consent was obtained. Patient identification and proposed procedure were verified by the physician in the pre-procedure area. Mental Status Examination: alert and oriented. Airway Examination: normal oropharyngeal airway and neck mobility. Respiratory Examination: clear to auscultation. CV Examination: normal. ASA Grade Assessment: II - A patient with mild systemic disease. After reviewing the risks and benefits, the patient was deemed in satisfactory condition to undergo the procedure. The anesthesia plan was to use monitored anesthesia care (MAC). Immediately prior to administration of medications, the patient was re-assessed for adequacy to receive sedatives. The heart rate, respiratory rate, oxygen saturations, blood pressure, adequacy of pulmonary ventilation, and response to care were monitored throughout the procedure. The physical status of the patient was re-assessed after the procedure. After obtaining informed consent, the endoscope was passed under direct vision. Throughout the procedure, the patient's blood pressure, pulse, and oxygen saturations were monitored continuously. The Endoscope was introduced through the mouth, and advanced to the second part of duodenum. The upper GI endoscopy was accomplished without difficulty. The patient tolerated the procedure well. Scope In: 10:44:41 AM Scope Out: 10:47:57 AM Total Procedure Duration Time 0 hours 3 minutes 16 seconds Findings: The Z-line was irregular and was found 40 cm from the incisors. Biopsies were taken with a cold forceps for histology. Verification of patient identification for the specimen was done. Estimated blood loss was minimal. The entire examined stomach was normal. No gross lesions were noted in the entire examined duodenum. Impression: - Z-line irregular, 40 cm from the incisors. Biopsied. - Normal stomach. - No gross lesions in the entire examined duodenum. Recommendation: - Discharge patient to home. - Resume previous diet. - Continue present medications. - Await pathology results. Procedure Code(s): --- Professional --- 33742, Esophagogastroduodenoscopy, flexible, transoral; with biopsy, single or multiple CPT copyright 2021 [employer]. All rights reserved. The codes documented in this report are preliminary and upon director of physician practices review may be revised to meet current compliance requirements. Mauri gEan DO 06/17/2025 10:56:43 AM This report has been signed electronically. Number of Addenda: 0 Note Initiated On: 06/17/2025 10:29 AM
--- NOTE | 2025-06-17 10:57 | OP.PROVAT_ITS ---
06/17/2025 Morris Mathew Re : Upper GI endoscopy procedure for Bennie Henson Dear Keith This procedure was performed on June. My impressions and recommendations are as follows: Impressions : - Z-line irregular, 40 cm from the incisors. Biopsied. - Normal stomach. - No gross lesions in the entire examined duodenum. Recommendations : - Discharge patient to home. - Resume previous diet. - Continue present medications. - Await pathology results. My findings are described in the full procedure note, which is enclosed. If I can be of further assistance, please feel free to contact me at . Sincerely, Mauri Egan, 06/17/2025 10:56:43 AM This report has been signed electronically.
[2025-06-17 11:00] VITALS: BP 139/91; BP 91/56; PULSE 65; RESP 18; O2SAT 97
--- NOTE | 2025-06-17 11:03 | PCM.POST.ANE ---
Anesthesia: Postop Eval I Current Vital Signs Temperature: 97.2 F Pulse Rate: 64 Blood Pressure: 80/62 Respiratory Rate: 16 Pulse Ox: 97 Oxygen Delivery Method: Room Air Assessment Airway patent: Yes Spontaneous unlabored respirations: Yes Mental status: Asleep nausea: No Vomiting: No Anesthesia Complication: No Fluid Hydration Crystalloid volume administer (ml): 400 Total IV fluid infused: 400 Progress Note Anesthesia document: Postop Eval 1 completed: Yes
[2025-06-17 11:04] VITALS: BP 80/62; PULSE 64; RESP 16; TEMP 36.2; O2SAT 97
[2025-06-17 11:10] VITALS: BP 139/91; BP 99/67; PULSE 53; RESP 16; TEMP 36.2; O2SAT 99
[2025-06-17 11:35] VITALS: BP 139/91
--- NOTE | 2025-06-17 12:31 | PCM.POSTANE2 ---
Anesthesia Postop Eval I Sum Postop Eval Completion status Anesthesia document: Postop Eval 1 completed: Yes Anesthesia Postop Eval I Summary Anesthesia Postop Eval I Summary: Anesthesia Postop Eval I: Assessment Summary Airway patent Yes 06/17/25 11:04 [email or web address] Spontaneous unlabored Yes 06/17/25 11:04 [email or web address] respirations Mental status Asleep 06/17/25 11:04 [email or web address] nausea No 06/17/25 11:04 [email or web address] Vomiting No 06/17/25 11:04 [email or web address] Anesthesia Postop Eval I: Fluid Summary Crystalloid volume administer 400 06/17/25 11:04 [email or web address] (ml) Colloids volume administered ( ml) Blood Product volume administered (ml) Total IV fluid infused 400 06/17/25 11:04 [email or web address] Anesthesia Postop Eval I: Summary Notes Anesthesia Complication No 06/17/25 11:04 [email or web address] Anesthesia Complication Comment: Post-operative progress note Anesthesia: Postop Eval II Evaluation Mental status: Awake Pain Level: 0 nausea: No Vomiting: No
== END 2025-06-17 11:39 | disposition home or self-care (01) ==
LOC: EN 09:00 → AC 09:03
PROVIDERS: PCP Nurse Practitioner Family; Referring Provider Nurse Practitioner Family; Visit Provider Internal Medicine Gastroenterology
PROC: 0DJ08ZZ Inspection of Upper Intestinal Tract, Via Natural or Artificial Opening Endoscopic (ICD-10-PCS; CPT 43235; principal; 2025-06-17 09:55)
DX: K21.9 Gastro-esophageal reflux disease without esophagitis (principal); I10 Essential (primary) hypertension; Z79.899 Other long term (current) drug therapy; E78.00 Pure hypercholesterolemia, unspecified; Z95.2 Presence of prosthetic heart valve; Z79.82 Long term (current) use of aspirin; K22.89 Other specified disease of esophagus
CPT/HCPCS: 43239; 88305; J2405